=== PATIENT | male | born 1940 | race Caucasian/White ===

== ENCOUNTER → 2018-02-23 15:55 | Outpatient (CLI) | payer MEDICARE, SELFPAY ==
[2018-02-23 16:39] LABS: Alanine Aminotransfer ALT/SGPT 76 U/L (16-61); Anion Gap 7 (5-15); BUN 24 mg/dL (7-18); BUN/Creat Ratio 17.5 RATIO (10-20); CPK Total, Creatine Kinase 188 U/L (39-308); Calcium,Total 8.9 mg/dL (8.5-10.1); Chloride 101 mmol/L (98-107); Cholesterol 118 mg/dL (200); Creatinine, Serum 1.37 mg/dL (0.70-1.30); EST Glomerular Filtration Rate 54 mL/min (>60); Est Glom Filt Rate - Afr Amer 65 mL/min (>60); Glucose 101 mg/dL (74-106); High Density Lipoprotein 50 mg/dL; Potassium 4.5 mmol/L (3.5-5.1); Sodium Level 136 mmol/L (136-145); Triglycerides 51 mg/dL; Very Low Density Lipoprotein 10 mg/dL (5-40)
== END ==
PROVIDERS: Visit Provider Internal Medicine Cardiovascular Disease
DX: I25.10 Atherosclerotic heart disease of native coronary artery without angina pectoris (principal)
CPT/HCPCS: 80048; 80061; 82550; 84460

== ENCOUNTER → 2018-03-11 09:35 | Outpatient (CLI) | payer MEDICARE, SELFPAY ==
[2018-03-11 11:01] LABS: Alanine Aminotransfer ALT/SGPT 10 U/L (16-61); Anion Gap 7 (5-15); BUN 16 mg/dL (7-18); BUN/Creat Ratio 13.9 RATIO (10-20); Calcium,Total 8.7 mg/dL (8.5-10.1); Chloride 100 mmol/L (98-107); Creatinine, Serum 1.15 mg/dL (0.70-1.30); EST Glomerular Filtration Rate 66 mL/min (>60); Est Glom Filt Rate - Afr Amer 80 mL/min (>60); Glucose 144 mg/dL (74-106); Potassium 4.6 mmol/L (3.5-5.1); Sodium Level 132 mmol/L (136-145)
== END ==
PROVIDERS: Family Provider Internal Medicine; PCP Internal Medicine; Visit Provider Internal Medicine Cardiovascular Disease
DX: I25.10 Atherosclerotic heart disease of native coronary artery without angina pectoris (principal)
CPT/HCPCS: 36415; 80048; 84460

== ENCOUNTER 2018-06-15 14:02 | Observation (INO) | payer MEDICARE, SELFPAY ==
[2018-06-15] VITALS (9 sets, daily range): BP systolic 116–144; BP diastolic 54–75; PULSE 61–79; RESP 16–18; TEMP 36.5–37; O2SAT 92–98; BMI 26.4; BMI 27.3; BMI 27.4
--- NOTE | 2018-06-15 14:27 | EKG12_ITS ---
Test Reason : Blood Pressure : / mmHG Vent. Rate : 072 BPM Atrial Rate : 072 BPM P-R Int : 206 ms QRS Dur : 092 ms QT Int : 368 ms P-R-T Axes : 025 051 065 degrees QTc Int : 402 ms Sinus rhythm with occasional Premature ventricular complexes Confirmed by KERRY SHAW, ANITA ([id number]), video effects editor SHANIQUA BLOOM ([id number] on 06/17/2018 1:34:02 PM Referred By: Fátima Madrigal Confirmed By:ANITA PAYNE MD
[2018-06-15 14:41] LABS: Absolute Neutrophil Count 3.5 X10^3/uL (2.0-7.7); Basophil# 0.01 X10^3/uL; Basophil% 0.2 % (0-1); Eosinophil# 0.19 X10^3/uL; Eosinophils% 3.6 % (0-5); Hematocrit 41.5 % (40-54); Hemoglobin 14.4 g/dl (13.0-16.5); Lymphocyte % 18.8 % (19-41); Mean Corp Hgb Conc 34.7 g/gl (32-36); Mean Corpuscular Hgb 33.4 pg (27.0-32.0); Mean Corpuscular Volume 96.3 fL (80-94); Mean Platelet Vol. 10.7 fl (6.2-12.0); Monocyte# 0.58 X10^3/uL; Monocyte% 10.9 % (0-10); Neutrophil # 3.54 X10^3/uL (2.7-7.7); Neutrophil % 66.5 % (47-70); POSITIVE COUNT NO; POSITIVE DIFFERENTIAL NO; POSITIVE MORPHOLOGY NO; Platelet Count 176 K/mm3 (150-450); RBC Distribution Width CV 12.1 % (11.6-14.6); RBC Distribution Width SD 42.7 fl (35.1-43.9); Red Blood Count 4.31 M/mm3 (4.6-6.2); White Blood Count 5.3 K/mm3 (4.4-11.0)
[2018-06-15] MEDS: Aspirin 81 MG TAB.CHEW 324 MG PO (14:42)
--- NOTE | 2018-06-15 14:52 | RAD_ITS ---
STUDY: X-RAY CHEST REASON FOR EXAM: Male, 78 years old. Acute substernal chest pain, previous CABG TECHNIQUE: Single AP portable view of the chest. COMPARISON: 08/20/2017 FINDINGS: EKG leads overlie the chest The lungs are clear and expanded. There is no demonstrated pleural abnormality. Sternal cerclage wires and vascular clips are present from a prior sternotomy and coronary artery bypass graft procedure (CABG). Normal mediastinum and bailey. Normal visualized pulmonary arteries. Normal visualized aortic arch and descending thoracic aorta. Normal visualized thoracic spine. Normal visualized ribs, clavicles, and shoulders. There is no demonstrated abnormality of the visualized soft tissue structures of the upper abdomen. RAD/Chest 1 View (Portable) IMPRESSION: No acute pulmonary process Electronically Signed: Faraz Barrera MD at 15:12 EDT , Service support ,
[2018-06-15 15:23] LABS: Anion Gap 7 (5-15); BUN 36 mg/dL (7-18); BUN/Creat Ratio 25.4 RATIO (10-20); Calcium,Total 8.7 mg/dL (8.5-10.1); Chloride 104 mmol/L (98-107); Creatinine, Serum 1.42 mg/dL (0.70-1.30); EST Glomerular Filtration Rate 52 mL/min (>60); Est Glom Filt Rate - Afr Amer 62 mL/min (>60); Estimated Creatinine Clearance 48.58 ml/min; Glucose 215 mg/dL (74-106); Potassium 4.5 mmol/L (3.5-5.1); Sodium Level 139 mmol/L (136-145)
--- NOTE | 2018-06-15 16:21 | ED.VISSUMM ---
- ER Visit Summary Date of Service: 06/15/18 Chief Complaint: [Chest pain] History of Present Illness: The patient is a 78 M [who presents the emergency department with chest pain. He gets angina quite often. 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 Yesterday and today the pain has been much worse and more frequent. He has associated shortness of breath. It is worse when he takes a deep breath when he walks. No fevers or chills no lower extremity swelling no PE or DVT risk factors. He does have coronary artery disease and has had a bypass he had a cath several years ago which showed some moderate vessel disease but nothing that was stented will at the time.] Physical Examination: [] WN WD NAD PERRL EOMI MMM NECK supple and nontender, no masses RRR no murmur rub or gallop, no peripheral edema, symmetric radial pulses CTAB no respiratory distress ABDOMEN is soft and nontender, normal bowel sounds, no distension, no rebound or guarding SKIN is warm and dry no rashes Alert and Oriented x3, CN II-XII in tact, no motor or sensory deficits, gait normal No lymphadenopathy Test Results: [] Emergency Department Course and Treatment: [EKG is sinus at a rate of 72 with occasional PVCs. Other labs are unremarkable. Chest x-ray is normal. Because the patient's history of coronary artery disease he has a heart score of at least 4. He will be admitted to the hospital.] Treatment Plan: [] Disposition: [Admit] Impression: chest [Pain] This note was generated with [employer] dictation software. It may contain incorrect words, spelling, and punctuation that were not noted in review of the chart prior to signing ED Disposition - Plan for ED Patient: Chief Complaint: Chest Pain Referrals: Anupama Feng DO [Primary Care Provider] -
--- NOTE | 2018-06-15 17:27 | EKG12_ITS ---
Test Reason : CP ADMISSION Blood Pressure : / mmHG Vent. Rate : 065 BPM Atrial Rate : 065 BPM P-R Int : 220 ms QRS Dur : 092 ms QT Int : 396 ms P-R-T Axes : 018 051 064 degrees QTc Int : 411 ms Sinus rhythm with 1st degree A-V block with occasional Premature ventricular complexes Otherwise normal ECG Confirmed by KERRY SHAW, ANITA ([id number]), editor & co founder SHANIQUA BLOOM ([id number] on 06/17/2018 1:47:39 PM Referred By: Fátima Madrigal Confirmed By:ANITA PAYNE MD
--- NOTE | 2018-06-15 17:29 | PCM.HP.STD ---
History of Present Illness Date of Admission: 06/15/18 Chief Complaint: Chest pain The patient is a 78 year old M past medical history of Parkinson's disease, CIDP, CAD, follows closely with Dr. Indra Montiel. He has had a stress test in 2017 that was reportedly normal. He follows closely with Dr. Montiel and has been having angina symptoms worse with exertion. Dr. Montiel had been increasing his isosorbide and he is currently on 90 mg p.o. daily. Started having chest pain that persisted throughout the whole day yesterday, substernal, crushing, worse with exertion, relieved with rest ,not associated with nausea or vomiting no diaphoresis. He denied any leg swelling orthopnea or PND. This chest pain persisted until so this morning then he called his physician who recommended he comes to the ED. Vitals in the ED was stable blood pressure of 144/67, respiratory rate was 18, SPO2 is 97% on room air, temperature 98.6 F. His admitting blood work showed unremarkable CBC D, BMP showed slight elevation in creatinine, urine was 36, creatinine 1.42, baseline creatinine is between 1.1-1.2. Initial troponin is negative. EKG shows no acute ST-T changes. Chest x-ray shows no acute pulmonary process. 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) Diabetic neuropathy (Chronic) HTN (hypertension) (Chronic) HLD (hyperlipidemia) (Chronic) Type II diabetes mellitus, uncontrolled (Chronic) History of chest pain (Chronic) Hx of CABG (Chronic) Allergies Beta-Blockers (Beta-Adrenergic Bloc Allergy (Verified 08/20/17 17:43) Swelling Home Medications: Ambulatory Orders Medication Instructions Recorded Gabapentin [Neurontin] 800 mg PO TID 11/15/15 Lactobacillus Combination No.4 1 each PO DAILY 11/15/15 [Probiotic] Lisinopril [Zestril] 5 mg PO DAILY 11/15/15 Metformin HCl [Glucophage] 1,000 mg PO BIDCM 11/15/15 Multivitamin [Daily Multiple 1 each PO DAILY 11/15/15 Vitamin] Aspirin E.C. [Ecotrin] 81 mg PO DAILY@0800 02/28/16 Folic Acid 0.4 mg PO BIDCM 02/28/16 Tamsulosin HCl [Flomax] 0.4 mg PO DAILY 02/28/16 Atorvastatin Calcium [Lipitor] 40 mg PO QHS 08/03/17 Finasteride [Proscar] 5 mg PO DAILY 08/20/17 Carbidopa/Levodopa [Sinemet 2 tablet PO TIDAC 06/15/18 25] Cholecalciferol (Vitamin D3) 5,000 unit PO MOWEFR 06/15/18 [Vitamin D3] Glimepiride [Amaryl] 2 mg PO DAILY 06/15/18 Isosorbide Mononitrate [Imdur] 90 mg PO DAILY 06/15/18 Levothyroxine Sodium [Synthroid] 112.5 mcg PO DAILY 06/15/18 Surgical History: coronary bypass surgery Psychiatric History: No pertinent psych hx Lives: Spouse/ Significant Other Smoking Status: Former smoker Tobacco Use: Non-smoker Alcohol: None Drugs: None - *Family History Maternal History Items: - - Mother with Alzheimer's disease, heart disease, diabetes Paternal History Items: Diabetes, Heart Disease, Hypertension Review of Systems Constitutional: Reports: Weakness. Denies: Anorexia, Chills, Fever, Weight Change Eyes: Denies: Blurred vision, Cataracts, Conjunctivae Inflammation, Pain, Redness HEENT: Denies: Difficulty Swallowing, Head Aches, Hearing Changes, Sinus Congestion, Sinus Drainage Cardiovascular: Reports: Chest Pain, Chest Pressure, Chest Tightness, Light Headedness. Denies: Orthopnea, Palpitations, Paroxysmal Noc. Dyspnea, Syncope Respiratory: Reports: Shortness of breath upon exertion. Denies: Cough, Hemoptysis, Shortness of Breath, Shortness of breath at rest, Sputum production Gastrointestinal: Denies: Abdominal Pain, Constipation, Nausea, Vomiting Genitourinary: Denies: Dysuria, Frequency Musculoskeletal: Denies: Joint Pain, Joint Tenderness Skin: Denies: Rash, Wounds Neurological: Denies: Numbness, Tingling, Focal weakness Psychiatric: Denies: Anxiety, Depression, Homicidal Ideations, Suicidal Ideations Hematologic/ Lymphatic: Denies: Easy Bruising, Easy Bleeding VTE Information - Inpt Only VTE Present on Admission: No VTE Pharm Prophylaxis ordered?: Yes - Physical Exam General: Alert, Oriented x3, Cooperative, No apparent distress HEENT: Atraumatic, PERRLA, EOMI, Normocephalic Oral: Moist Mucosa Neck: Supple, No JVD, Negative Carotid Bruits Lungs: Clear to auscultation, Normal air movement Cardiovascular: Regular rate, Regular Rhythm, Normal S1, Normal S2, No murmurs Abdomen: Bowel Sounds Present, Soft, Non Tender, Non-Distended, No Hepato-splenomegaly Extremities: No edema Skin: No rashes, No breakdown Musculoskeletal: No Tenderness to Palpation of Joints or Extremities Lymphatic: No Cervical, Supraclavicular, or Inguinal Adenopathy Neurological: Cranial nerves II-XII grossly intact, - - coarse tremors of the right upper extremities Psych/Mental Status: Normal Affect, Appropriate Vital Signs Temp Pulse Resp BP Pulse Ox 98.6 F 72 16 117/75 98 06/15/18 14:04 06/15/18 16:30 06/15/18 16:30 06/15/18 16:30 06/15/18 16:30 Weight: 89.1 kg Body Mass Index (BMI) 27.3 Assessment/Plan All Active Problems Chest pain (Acute) 78 year old M past medical history of Parkinson's disease, CIDP, CAD, follows closely with Dr. Indra Montiel. He has had a stress test in 2017 that was reportedly normal. He follows closely with Dr. Montiel and has been having angina symptoms worse with exertion. 1. Chest pain, atypical, concerning for worsening angina, history of CAD, been on an increasing dose of Imdur by cardiology. Plan: Admit to PCU, telemetry, trend troponins, continue on aspirin, statin, beta-marina, Imdur, as needed nitro, stress test in a.m., obtain records from Dr. Montiel's office 2. Hypertension, controlled, continue home medications 3. Type II DM, on metformin, amaryl, will continue same, add Accu-Cheks with insulin sliding scale 4. Hyperlipidemia, on statins 5. Parkinson's disease/CIDP, continue home regimen 6. BPH on Proscar, Flomax 7. Hypothyroidism, on levothyroxine 8. DVT prophylaxis with heparin subcu Code Visit OBSV E&M: 60747 Initial observation care L3
--- NOTE | 2018-06-15 17:42 | HP.PCM_ITS ---
History of Present Illness Date of Admission: 06/15/18 Chief Complaint: Chest pain The patient is a 78 year old M past medical history of Parkinson's disease, CIDP , CAD, follows closely with Dr. Indra Montiel. He has had a stress test in 2017 that was reportedly normal. He follows closely with Dr. Montiel and has been having angina symptoms worse with exertion. Dr. Montiel had been increasing his isosorbide and he is currently on 90 mg p.o. daily. Started having chest pain that persisted throughout the whole day yesterday, substernal, crushing, worse with exertion, relieved with rest ,not associated with nausea or vomiting no diaphoresis. He denied any leg swelling orthopnea or PND. This chest pain persisted until so this morning then he called his physician who recommended he comes to the ED. Vitals in the ED was stable blood pressure of 144/67, respiratory rate was 18, SPO2 is 97% on room air, temperature 98.6 F. His admitting blood work showed unremarkable CBC D, BMP showed slight elevation in creatinine, urine was 36, creatinine 1.42, baseline creatinine is between 1.1 -1.2. Initial troponin is negative. EKG shows no acute ST-T changes. Chest x- ray shows no acute pulmonary process. 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) Diabetic neuropathy (Chronic) HTN (hypertension) (Chronic) HLD (hyperlipidemia) (Chronic) Type II diabetes mellitus, uncontrolled (Chronic) History of chest pain (Chronic) Hx of CABG (Chronic) Allergies Beta-Blockers (Beta-Adrenergic Bloc Allergy (Verified 08/20/17 17:43) Swelling Home Medications: Ambulatory Orders Medication Instructions Recorded Gabapentin [Neurontin] 800 mg PO TID 11/15/15 Lactobacillus Combination No.4 1 each PO DAILY 11/15/15 [Probiotic] Lisinopril [Zestril] 5 mg PO DAILY 11/15/15 Metformin HCl [Glucophage] 1,000 mg PO BIDCM 11/15/15 Multivitamin [Daily Multiple 1 each PO DAILY 11/15/15 Vitamin] Aspirin E.C. [Ecotrin] 81 mg PO DAILY@0800 02/28/16 Folic Acid 0.4 mg PO BIDCM 02/28/16 Tamsulosin HCl [Flomax] 0.4 mg PO DAILY 02/28/16 Atorvastatin Calcium [Lipitor] 40 mg PO QHS 08/03/17 Finasteride [Proscar] 5 mg PO DAILY 08/20/17 Carbidopa/Levodopa [Sinemet 2 tablet PO TIDAC 06/15/18 25] Cholecalciferol (Vitamin D3) 5,000 unit PO MOWEFR 06/15/18 [Vitamin D3] Glimepiride [Amaryl] 2 mg PO DAILY 06/15/18 Isosorbide Mononitrate [Imdur] 90 mg PO DAILY 06/15/18 Levothyroxine Sodium [Synthroid] 112.5 mcg PO DAILY 06/15/18 Surgical History: coronary bypass surgery Psychiatric History: No pertinent psych hx Lives: Spouse/ Significant Other Smoking Status: Former smoker Tobacco Use: Non-smoker Alcohol: None Drugs: None - *Family History Maternal History Items: - - Mother with Alzheimer's disease, heart disease, diabetes Paternal History Items: Diabetes, Heart Disease, Hypertension Review of Systems Constitutional: Reports: Weakness. Denies: Anorexia, Chills, Fever, Weight Change Eyes: Denies: Blurred vision, Cataracts, Conjunctivae Inflammation, Pain, Redness HEENT: Denies: Difficulty Swallowing, Head Aches, Hearing Changes, Sinus Congestion, Sinus Drainage Cardiovascular: Reports: Chest Pain, Chest Pressure, Chest Tightness, Light Headedness. Denies: Orthopnea, Palpitations, Paroxysmal Noc. Dyspnea, Syncope Respiratory: Reports: Shortness of breath upon exertion. Denies: Cough, Hemoptysis, Shortness of Breath, Shortness of breath at rest, Sputum production Gastrointestinal: Denies: Abdominal Pain, Constipation, Nausea, Vomiting Genitourinary: Denies: Dysuria, Frequency Musculoskeletal: Denies: Joint Pain, Joint Tenderness Skin: Denies: Rash, Wounds Neurological: Denies: Numbness, Tingling, Focal weakness Psychiatric: Denies: Anxiety, Depression, Homicidal Ideations, Suicidal Ideations Hematologic/ Lymphatic: Denies: Easy Bruising, Easy Bleeding VTE Information - Inpt Only VTE Present on Admission: No VTE Pharm Prophylaxis ordered?: Yes - Physical Exam General: Alert, Oriented x3, Cooperative, No apparent distress HEENT: Atraumatic, PERRLA, EOMI, Normocephalic Oral: Moist Mucosa Neck: Supple, No JVD, Negative Carotid Bruits Lungs: Clear to auscultation, Normal air movement Cardiovascular: Regular rate, Regular Rhythm, Normal S1, Normal S2, No murmurs Abdomen: Bowel Sounds Present, Soft, Non Tender, Non-Distended, No Hepato- splenomegaly Extremities: No edema Skin: No rashes, No breakdown Musculoskeletal: No Tenderness to Palpation of Joints or Extremities Lymphatic: No Cervical, Supraclavicular, or Inguinal Adenopathy Neurological: Cranial nerves II-XII grossly intact, - - coarse tremors of the right upper extremities Psych/Mental Status: Normal Affect, Appropriate Vital Signs Temp Pulse Resp BP Pulse Ox 98.6 F 72 16 117/75 98 06/15/18 14:04 06/15/18 16:30 06/15/18 16:30 06/15/18 16:30 06/15/18 16:30 Weight: 89.1 kg Body Mass Index (BMI) 27.3 Assessment/Plan All Active Problems Chest pain (Acute) 78 year old M past medical history of Parkinson's disease, CIDP, CAD, follows closely with Dr. Indra Montiel. He has had a stress test in 2017 that was reportedly normal. He follows closely with Dr. Montiel and has been having angina symptoms worse with exertion. 1. Chest pain, atypical, concerning for worsening angina, history of CAD, been on an increasing dose of Imdur by cardiology. Plan: Admit to PCU, telemetry, trend troponins, continue on aspirin, statin, beta-marina, Imdur, as needed nitro, stress test in a.m., obtain records from Dr. Montiel's office 2. Hypertension, controlled, continue home medications 3. Type II DM, on metformin, amaryl, will continue same, add Accu-Cheks with insulin sliding scale 4. Hyperlipidemia, on statins 5. Parkinson's disease/CIDP, continue home regimen 6. BPH on Proscar, Flomax 7. Hypothyroidism, on levothyroxine 8. DVT prophylaxis with heparin subcu Code Visit OBSV E&M: 88601 Initial observation care L3
[2018-06-15] MEDS: Folic Acid 1 MG Tablet 0.5 MG PO (18:26)
[2018-06-15] MEDS: metFORMIN HCl 1,000 MG Tablet 1000 MG PO (18:26)
[2018-06-15] MEDS: Gabapentin 800 MG Tablet PO (22:30)
[2018-06-15] MEDS: Atorvastatin Calcium 40 MG Tablet PO (22:31)
[2018-06-15] MEDS: Tamsulosin HCl 0.4 MG Capsule PO (22:31)
[2018-06-15 22:41] LABS: Bedside Glucose 105 mg/dL (70-110)
[2018-06-16 03:02] VITALS: PULSE 62
[2018-06-16 04:15] LABS: Hematocrit 43.2 % (40-54); Hemoglobin 15.1 g/dl (13.0-16.5); Mean Corpuscular Hgb 34.2 pg (27.0-32.0); Mean Platelet Vol. 10.6 fl (6.2-12.0); Platelet Count 149 K/mm3 (150-450); RBC Distribution Width CV 11.9 % (11.6-14.6); RBC Distribution Width SD 41.9 fl (35.1-43.9); Red Blood Count 4.41 M/mm3 (4.6-6.2); White Blood Count 5.6 K/mm3 (4.4-11.0)
[2018-06-16 04:20] VITALS: BP 126/65; PULSE 67; RESP 18; TEMP 36.8; O2SAT 95
[2018-06-16 04:21] LABS: Scan Indicated on CBC? Y/N NO
[2018-06-16 04:29] LABS: International Normalized Ratio 1.1; Prothrombin Time (Protime)PT. 13.9 SECONDS (11.7-14.9)
[2018-06-16 04:30] LABS: Anion Gap 9 (5-15); BUN 29 mg/dL (7-18); BUN/Creat Ratio 24.2 RATIO (10-20); Calcium,Total 8.6 mg/dL (8.5-10.1); Chloride 110 mmol/L (98-107); Cholesterol 119 mg/dL (200); EST Glomerular Filtration Rate 63 mL/min (>60); Est Glom Filt Rate - Afr Amer 76 mL/min (>60); Estimated Creatinine Clearance 55.78 ml/min; Glucose 92 mg/dL (74-106); High Density Lipoprotein 46 mg/dL; Partial Thromboplast Time 22.4 Seconds (24.1-36.2); Potassium 4.8 mmol/L (3.5-5.1); Sodium Level 142 mmol/L (136-145); Triglycerides 76 mg/dL; Very Low Density Lipoprotein 15 mg/dL (5-40)
--- NOTE | 2018-06-16 05:00 | EKG12_ITS ---
Test Reason : AM EKG Blood Pressure : / mmHG Vent. Rate : 066 BPM Atrial Rate : 066 BPM P-R Int : 210 ms QRS Dur : 092 ms QT Int : 404 ms P-R-T Axes : 003 059 042 degrees QTc Int : 423 ms Sinus rhythm with 1st degree A-V block with occasional Premature ventricular complexes Otherwise normal ECG Confirmed by KERRY SHAW, ANITA ([id number]), development editor SHANIQUA BLOOM ([id number]) on 06/17/2018 1:45:46 PM Referred By: Fátima Madrigal Confirmed By:ANITA PAYNE MD
[2018-06-16] MEDS: Aspirin E.C. 81 MG Tablet PO (06:02)
[2018-06-16] MEDS: Levothyroxine 75 MCG Tablet 112.5 MCG PO (06:02)
[2018-06-16] MEDS: Lisinopril 5 MG Tablet PO (06:02)
[2018-06-16 06:20] LABS: Bedside Glucose 120 mg/dL (70-110)
[2018-06-16] MEDS: Carbidopa/Levodopa 25/100 Tablet PO (08:56)
[2018-06-16] MEDS: Folic Acid 1 MG Tablet 0.5 MG PO (08:57)
[2018-06-16] MEDS: Isosorbide Mononitrate 30 MG Tablet 90 MG PO (08:58)
[2018-06-16] MEDS: Multivitamins,Therapeutic Tablet 1 TABLET PO (08:58)
[2018-06-16] MEDS: Finasteride 5 MG Tablet PO (09:02)
[2018-06-16] MEDS: Glimepiride 2 MG Tablet PO (09:02)
[2018-06-16] MEDS: metFORMIN HCl 1,000 MG Tablet 1000 MG PO (09:02)
--- NOTE | 2018-06-16 09:20 | STRESSREP ---
Stress Test Report Date: 06/16/2018 Procedure: Pharmacologic stress nuclear imaging study Indications: Chest pain; CAD; CABG Consent: Per the patient Procedure: The patient underwent pharmacologic (Regadenoson) evaluation with a peak heart rate of 90 beats per minute (62 predicted maximal heart rate) and a peak blood pressure of 150/80 mmHg. The baseline ECG demonstrated normal sinus rhythm. The peak pharmacologic ECG demonstrated no obvious ECG changes. There were occasional PVCs pretest and during recovery. There was notation of chronic chest discomfort prior to, during the examination, and following the examination without significant change. The examination was discontinued secondary to completion of protocol. Impression: 1. Pharmacologic (Regadenoson) evaluation 2. Peak pharmacologic ECG with no obvious ECG changes. 3. There were occasional PVCs pretest and during recovery 4. Nuclear images pending Myocardial perfusion imaging study: Technique: The patient was injected with 11.7 millicuries of technetium 99m Cardiolite and subsequently rest SPECT Cardiolite nuclear imaging was obtained in the horizontal long, vertical long, and short axis views. The patient underwent pharmacologic (Regadenoson) evaluation with a peak heart rate of 90 beats per minute (62 % percent predicted maximal heart rate) and a peak blood pressure of 150/80 mmHg. The patient was injected with 33.9 millicuries of technetium 99m Cardiolite and subsequently stress SPECT Cardiolite nuclear imaging was obtained in the horizontal long, vertical long, and short axis views. A gated Cardiolite study at peak stress was obtained. Interpretation: Rest and stress SPECT Cardiolite nuclear imaging status post realignment, normalization, and attenuation correction demonstrate relative uniform tracer uptake and myocardial perfusion appearing within normal limits. There is end systolic thickening and brightening. The gated Cardiolite study demonstrates myocardial thickening and inward wall motion. The reported LVEF is 69 %. Impression: 1. Rest and stress SPECT Cardiolite nuclear imaging demonstrate relative uniform tracer uptake and myocardial perfusion appearing within normal limits. 2. The gated Cardiolite study reports an LVEF of 69 %. This note was generated with [employer] software. It may contain incorrect words, spelling, and punctuation that were not noted in checking the note before signing.
[2018-06-16 09:21] VITALS: PULSE 72
--- NOTE | 2018-06-16 09:25 | STRESSREP_ITS ---
Stress Test Report Date: 06/16/2018 Procedure: Pharmacologic stress nuclear imaging study Indications: Chest pain; CAD; CABG Consent: Per the patient Procedure: The patient underwent pharmacologic (Regadenoson) evaluation with a peak heart rate of 90 beats per minute (62 predicted maximal heart rate) and a peak blood pressure of 150/80 mmHg. The baseline ECG demonstrated normal sinus rhythm. The peak pharmacologic ECG demonstrated no obvious ECG changes. There were occasional PVCs pretest and during recovery. There was notation of chronic chest discomfort prior to, during the examination , and following the examination without significant change. The examination was discontinued secondary to completion of protocol. Impression: 1. Pharmacologic (Regadenoson) evaluation 2. Peak pharmacologic ECG with no obvious ECG changes. 3. There were occasional PVCs pretest and during recovery 4. Nuclear images pending Myocardial perfusion imaging study: Technique: The patient was injected with 11.7 millicuries of technetium 99m Cardiolite and subsequently rest SPECT Cardiolite nuclear imaging was obtained in the horizontal long, vertical long, and short axis views. The patient underwent pharmacologic (Regadenoson) evaluation with a peak heart rate of 90 beats per minute (62 % percent predicted maximal heart rate) and a peak blood pressure of 150/80 mmHg. The patient was injected with 33.9 millicuries of technetium 99m Cardiolite and subsequently stress SPECT Cardiolite nuclear imaging was obtained in the horizontal long, vertical long, and short axis views. A gated Cardiolite study at peak stress was obtained. Interpretation: Rest and stress SPECT Cardiolite nuclear imaging status post realignment, normalization, and attenuation correction demonstrate relative uniform tracer uptake and myocardial perfusion appearing within normal limits. There is end systolic thickening and brightening. The gated Cardiolite study demonstrates myocardial thickening and inward wall motion. The reported LVEF is 69 %. Impression: 1. Rest and stress SPECT Cardiolite nuclear imaging demonstrate relative uniform tracer uptake and myocardial perfusion appearing within normal limits. 2. The gated Cardiolite study reports an LVEF of 69 %. This note was generated with [employer] software. It may contain incorrect words, spelling, and punctuation that were not noted in checking the note before signing.
[2018-06-16 09:40] VITALS: BP 120/52; BP 138/73; BP 148/65; PULSE 74; PULSE 79; PULSE 86; RESP 18; TEMP 36.8; O2SAT 94
[2018-06-16 09:50] LABS: Bedside Glucose 204 mg/dL (70-110)
--- NOTE | 2018-06-16 09:51 | DCINST_ITS ---
- Discharge Diagnoses Reason(s) for Visit for Discharge Instructions: Chest pain You will use the following diet at home:: Calorie/Carbohydrate Controlled ( specify 1200, 1400, etc), Cardiac Your food should be the consistency of: Regular Your liquids should be the consistency of: Regular/Thin Discharge Activity: Return to Normal Activity Allergies/Adverse Reactions: Allergies Beta-Blockers (Beta-Adrenergic Bloc Allergy (Verified 08/20/17 17:43) Swelling Medications to take at Discharge Gabapentin [Neurontin] 800 mg PO TID 11/15/15 Lactobacillus Combination No.4 [Probiotic] 1 each PO DAILY 11/15/15 Lisinopril [Zestril] 5 mg PO DAILY 11/15/15 Metformin HCl [Glucophage] 1,000 mg PO BIDCM 11/15/15 Multivitamin [Daily Multiple Vitamin] 1 each PO DAILY 11/15/15 Aspirin E.C. [Ecotrin] 81 mg PO DAILY@0800 02/28/16 Folic Acid 0.4 mg PO BIDCM 02/28/16 Tamsulosin HCl [Flomax] 0.4 mg PO DAILY 02/28/16 Atorvastatin Calcium [Lipitor] 40 mg PO QHS 08/03/17 Finasteride [Proscar] 5 mg PO DAILY 08/20/17 Carbidopa/Levodopa 25/100 [Sinemet 25/100] 2 tablet PO TIDAC 06/15/18 Cholecalciferol (Vitamin D3) [Vitamin D3] 5,000 unit PO MOWEFR 06/15/18 Glimepiride [Amaryl] 2 mg PO DAILY 06/15/18 Levothyroxine Sodium [Synthroid] 112.5 mcg PO DAILY 06/15/18 Isosorbide Mononitrate [Imdur] 120 mg PO DAILY #30 tab 06/16/18 The following prescriptions were given: Isosorbide Mononitrate [Imdur] 120 mg PO DAILY #30 tab Primary Care Physician: Anupama Feng DO [Primary Care Provider] - Please follow up with your Primary Care Physician in: within 2 weeks Test Results: Test results from this visit will be discussed in further detail at your follow- up appointment, if applicable. Please Follow Up With: Librado Will MD When: in 2-3 weeks Proposed Discharge Date: 06/16/18
--- NOTE | 2018-06-16 09:52 | DS.PCM_ITS ---
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 Indra Montiel. Recent normal stress test in 2017. Patient had been having angina symptoms and this has been managed in outpatient. He follows with Dr. Montiel for which he has been taking increasing doses of Imdur. Currently on Imdur 90 mg p.o. daily. Patient complains of substernal pressure-like chest pain associated with nausea or vomiting but with lightheadedness. 1. Chest pain, atypical, concerning for worsening angina. Stress test in the hospital was negative. Discussed patient with Dr. Will on phone; patient will be discharged on Imdur 120 mg p.o. daily, she will follow-up with him in 2-3 weeks, continue on aspirin , statin, beta-marina, Imdur. 2. Hypertension, controlled 3. Type II DM, on metformin, amaryl 4. Hyperlipidemia, on statins 5. Parkinson's disease/CIDP, continue home regimen 6. BPH on Proscar, Flomax 7. Hypothyroidism, on levothyroxine Discharge Diet: Low fat/ Low Cholesterol, 2000 mg Sodium Diet Discharge Activity: Return to Normal Activity Home Medications: Medications to take at Discharge Gabapentin [Neurontin] 800 mg PO TID 11/15/15 Lactobacillus Combination No.4 [Probiotic] 1 each PO DAILY 11/15/15 Lisinopril [Zestril] 5 mg PO DAILY 11/15/15 Metformin HCl [Glucophage] 1,000 mg PO BIDCM 11/15/15 Multivitamin [Daily Multiple Vitamin] 1 each PO DAILY 11/15/15 Aspirin E.C. [Ecotrin] 81 mg PO DAILY@0800 02/28/16 Folic Acid 0.4 mg PO BIDCM 02/28/16 Tamsulosin HCl [Flomax] 0.4 mg PO DAILY 02/28/16 Atorvastatin Calcium [Lipitor] 40 mg PO QHS 08/03/17 Finasteride [Proscar] 5 mg PO DAILY 08/20/17 Carbidopa/Levodopa 25/100 [Sinemet 25/100] 2 tablet PO TIDAC 06/15/18 Cholecalciferol (Vitamin D3) [Vitamin D3] 5,000 unit PO MOWEFR 06/15/18 Glimepiride [Amaryl] 2 mg PO DAILY 06/15/18 Levothyroxine Sodium [Synthroid] 112.5 mcg PO DAILY 06/15/18 Isosorbide Mononitrate [Imdur] 120 mg PO DAILY #30 tab 06/16/18 Following Prescrptions Were Given to Patient: Isosorbide Mononitrate [Imdur] 120 mg PO DAILY #30 tab Primary Care Physician: Anupama Feng DO [Primary Care Provider] - Please follow up with your Primary Care Physician in: within 2 weeks Please Follow Up With: Librado Will MD When: in 2-3 weeks Disposition: Home Minutes spent on discharge:: 35 Patient Condition:: Stable Medical Necessity - Tobacco Use Smoking Status: Former smoker Tobacco Use: Non-smoker Meaningful Use Info Meaningful Use Diagnoses (Choose all that apply): None applicable Code Visit OBSV E&M: 42742 Observation care discharge
== END 2018-06-16 09:50 | disposition home or self-care (01) ==
LOC: ED 14:44 → PCU 17:02
PROVIDERS: Admitting Provider Internal Medicine; Emergency Provider Emergency Medicine; Family Provider Internal Medicine; PCP Internal Medicine; Visit Provider Internal Medicine
DX: R07.89 Other chest pain (principal); G61.81 Chronic inflammatory demyelinating polyneuritis; E11.40 Type 2 diabetes mellitus with diabetic neuropathy, unspecified; I10 Essential (primary) hypertension; E78.5 Hyperlipidemia, unspecified; E11.65 Type 2 diabetes mellitus with hyperglycemia; Z95.1 Presence of aortocoronary bypass graft; I25.10 Atherosclerotic heart disease of native coronary artery without angina pectoris; G20 Parkinson's disease; N40.0 Benign prostatic hyperplasia without lower urinary tract symptoms; E03.9 Hypothyroidism, unspecified; Z79.899 Other long term (current) drug therapy; Z79.84 Long term (current) use of oral hypoglycemic drugs; Z79.82 Long term (current) use of aspirin; Z87.891 Personal history of nicotine dependence
CPT/HCPCS: 36415; 71045; 78452; 80048; 80061; 82962; 84484; 85025; 85027; 85610; 85730; 93005; 93017; 97162; 97165; 99218; 99283; A9500; A4216; G0378; J2785

== ENCOUNTER → 2018-07-14 10:49 | Outpatient (CLI) | payer MEDICARE, SELFPAY ==
[2018-07-14 13:13] LABS: Prothrombin Time (Protime)PT. 13.2 SECONDS (11.7-14.9)
[2018-07-14 13:14] LABS: Absolute Lymphocyte Count 0.84 X10^3/ul (0.83-4.51); Absolute Neutrophil Count 2.8 X10^3/uL (2.0-7.7); Basophil# 0.02 X10^3/uL; Basophil% 0.5 % (0-1); Eosinophil# 0.29 X10^3/uL; Eosinophils% 6.6 % (0-5); Hematocrit 42.2 % (40-54); Hemoglobin 14.7 g/dl (13.0-16.5); Lymphocyte # 0.84 X10^3/ul (4.0); Mean Corp Hgb Conc 34.8 g/gl (32-36); Mean Corpuscular Hgb 33.8 pg (27.0-32.0); Mean Platelet Vol. 10.8 fl (6.2-12.0); Monocyte% 11.3 % (0-10); Neutrophil # 2.76 X10^3/uL (2.7-7.7); Neutrophil % 62.4 % (47-70); Platelet Count 172 K/mm3 (150-450); RBC Distribution Width CV 12.3 % (11.6-14.6); RBC Distribution Width SD 42.7 fl (35.1-43.9); Red Blood Count 4.35 M/mm3 (4.6-6.2); White Blood Count 4.4 K/mm3 (4.4-11.0)
[2018-07-14 13:15] LABS: POSITIVE COUNT NO; POSITIVE DIFFERENTIAL NO; POSITIVE MORPHOLOGY NO
[2018-07-14 13:21] LABS: Alanine Aminotransfer ALT/SGPT 21 U/L (16-61); Anion Gap 8 (5-15); BUN 28 mg/dL (7-18); BUN/Creat Ratio 22.2 RATIO (10-20); Calcium,Total 8.9 mg/dL (8.5-10.1); Chloride 106 mmol/L (98-107); Creatinine, Serum 1.26 mg/dL (0.70-1.30); EST Glomerular Filtration Rate 59 mL/min (>60); Est Glom Filt Rate - Afr Amer 72 mL/min (>60); Glucose 196 mg/dL (74-106); Potassium 5.1 mmol/L (3.5-5.1); Sodium Level 142 mmol/L (136-145)
== END ==
LOC: LABSPEC 12:26
PROVIDERS: Family Provider Internal Medicine; PCP Internal Medicine; Visit Provider Internal Medicine Cardiovascular Disease
DX: Z01.810 Encounter for preprocedural cardiovascular examination (principal); I25.10 Atherosclerotic heart disease of native coronary artery without angina pectoris
CPT/HCPCS: 80048; 84460; 85025; 85610

== ENCOUNTER 2018-07-20 09:36 | Observation (INO) | payer MEDICARE, SELFPAY ==
[2018-07-19 08:40] VITALS: BMI 28.1
[2018-07-20] VITALS (24 sets, daily range): BP systolic 100–173; BP diastolic 48–95; PULSE 59–73; RESP 12–23; TEMP 36.7–37.1; O2SAT 94–97; BMI 28.9; BMI 28.1
[2018-07-20] MEDS: 0.9% Normal Saline 1,000 ML 150 ML IV (10:59)
--- NOTE | 2018-07-20 11:37 | CRPHASE1 ---
Patient Data/Charges Former Patient:: Phase II - 11 YEARS AGO, BYPASS Room Service Food Server:: Librado Will PCP:: Felix Montelongo Risk Factors/Lifestyle Smoking Status: Never smoker Hx Hypertension: Yes Hx Diabetes Mellitus Type 2: Yes Hx Metabolic Disorders: Yes Hx Dyslipidemia: Yes Height: 1.8 m Weight:: 91.6 kg BMI: 28.1 ETOH: No Substance Abuse: No Family History: Heart Disease Past Cardiac Illness: Coronary Artery Disease, Coronary Artery Bypass Graft Phase I Education Given On:: [place], Nutrition, Antiplatelet medication, CHF, Smoking cessation, Diabetes - Type I, Diabetes - Type II Issues Affecting Care:: None Knowledge of Condition:: Yes Hospital Course Pain Description: Sharp, Pressure Medical/Surgical History [place]:: No Angina:: Yes CAD:: Yes Valve Disease/Replacement:: No Pulmonary:: No COPD:: No Asthma:: No Diabetes:: Yes Diabetes Type II:: Yes Hypertension:: Yes Dyslipidemia:: Yes Arrhythmias:: No PE:: No DVT:: No Arthritis:: No GERD:: No Cancer:: No Thyroid:: Yes Depression:: No Anxiety:: No CABG: Yes ICD:: No Pacemaker:: No Orthopedic:: No - CIDP, SIGHT NEUROPATHY Discharge/Home/Social Eval Discharge Disposition: Home Marital Status:
--- NOTE | 2018-07-20 11:41 | CRPHASE1_ITS ---
Patient Data/Charges Former Patient:: Phase II - 11 YEARS AGO, BYPASS Party Plan Sales Director:: Librado Will PCP:: Felix Montelongo Risk Factors/Lifestyle Smoking Status: Never smoker Hx Hypertension: Yes Hx Diabetes Mellitus Type 2: Yes Hx Metabolic Disorders: Yes Hx Dyslipidemia: Yes Height: 1.8 m Weight:: 91.6 kg BMI: 28.1 ETOH: No Substance Abuse: No Family History: Heart Disease Past Cardiac Illness: Coronary Artery Disease, Coronary Artery Bypass Graft Phase I Education Given On:: [place], Nutrition, Antiplatelet medication, CHF, Smoking cessation, Diabetes - Type I, Diabetes - Type II Issues Affecting Care:: None Knowledge of Condition:: Yes Hospital Course Pain Description: Sharp, Pressure Medical/Surgical History [place]:: No Angina:: Yes CAD:: Yes Valve Disease/Replacement:: No Pulmonary:: No COPD:: No Asthma:: No Diabetes:: Yes Diabetes Type II:: Yes Hypertension:: Yes Dyslipidemia:: Yes Arrhythmias:: No PE:: No DVT:: No Arthritis:: No GERD:: No Cancer:: No Thyroid:: Yes Depression:: No Anxiety:: No CABG: Yes ICD:: No Pacemaker:: No Orthopedic:: No - CIDP, SIGHT NEUROPATHY Discharge/Home/Social Eval Discharge Disposition: Home Marital Status:
--- NOTE | 2018-07-20 11:42 | CRPH1.INSTRU ---
General Education CAD and cardiac anatomy and function:: Not instructed Explanation of diagnoses and procedures:: Not instructed Sign/Symptoms of [place]:: Needs reinforcement Antiplatelet therapy: Needs reinforcement Proper use of NTG-SL: Patient communicates acknowledgment Emergency procedures and activation of EMS: Needs reinforcement, Not instructed Compliance of all prescribed medications: Not instructed Smoking Patient Nicotine/Smoking Risk Factors Are:: Never smoked Dyslipidemia Dyslipidemia Response Code:: Not instructed Overweight/Obesity Overweight/Obesity:: Not instructed - BMI 28.1 Hypertension Hypertension:: Not instructed Heart Disease Patient Heart Disease Risk Factors Are:: Previous cardiac event - CABG, TIMES 4, 11 YEARS AGO Heart Disease Response Code:: Not instructed Diabetes Diabetes:: Not instructed Metabolic Syndrome Metabolic Syndrome Response Code:: Not instructed Sedentary Sedentary Response Code:: Not instructed Stress Stress Response Code:: Not instructed
--- NOTE | 2018-07-20 11:45 | CRPH1.INST_ITS ---
General Education CAD and cardiac anatomy and function:: Not instructed Explanation of diagnoses and procedures:: Not instructed Sign/Symptoms of [place]:: Needs reinforcement Antiplatelet therapy: Needs reinforcement Proper use of NTG-SL: Patient communicates acknowledgment Emergency procedures and activation of EMS: Needs reinforcement, Not instructed Compliance of all prescribed medications: Not instructed Smoking Patient Nicotine/Smoking Risk Factors Are:: Never smoked Dyslipidemia Dyslipidemia Response Code:: Not instructed Overweight/Obesity Overweight/Obesity:: Not instructed - BMI 28.1 Hypertension Hypertension:: Not instructed Heart Disease Patient Heart Disease Risk Factors Are:: Previous cardiac event - CABG, TIMES 4 , 11 YEARS AGO Heart Disease Response Code:: Not instructed Diabetes Diabetes:: Not instructed Metabolic Syndrome Metabolic Syndrome Response Code:: Not instructed Sedentary Sedentary Response Code:: Not instructed Stress Stress Response Code:: Not instructed
[2018-07-20 12:30] LABS: ACT Activated Clotting Time 175 sec (74-137)
[2018-07-20] MEDS: Carbidopa/Levodopa 25/100 Tablet PO ×2 (13:39→16:13)
[2018-07-20] MEDS: Finasteride 5 MG Tablet PO (13:39)
[2018-07-20] MEDS: Gabapentin 800 MG Tablet PO ×2 (13:39→16:15)
[2018-07-20] MEDS: Lisinopril 10 MG Tablet PO (13:39)
[2018-07-20] MEDS: Clopidogrel Bisulfate 75 MG Tablet PO (13:40)
[2018-07-20] MEDS: Folic Acid 1 MG Tablet PO (16:14)
[2018-07-20 16:20] LABS: Bedside Glucose 259 mg/dL (70-110)
[2018-07-20] MEDS: Atorvastatin Calcium 40 MG Tablet PO (21:17)
[2018-07-21] VITALS (13 sets, daily range): BP systolic 109–155; BP diastolic 45–85; PULSE 52–73; RESP 12–20; TEMP 36.6–37.1; O2SAT 94–98
[2018-07-21 03:51] LABS: Bedside Glucose 113 mg/dL (70-110)
[2018-07-21 05:04] LABS: Hematocrit 43.2 % (40-54); Hemoglobin 15.2 g/dl (13.0-16.5); Mean Corp Hgb Conc 35.2 g/gl (32-36); Mean Corpuscular Hgb 33.9 pg (27.0-32.0); Mean Corpuscular Volume 96.4 fL (80-94); Mean Platelet Vol. 10.3 fl (6.2-12.0); Platelet Count 150 K/mm3 (150-450); RBC Distribution Width CV 12.2 % (11.6-14.6); RBC Distribution Width SD 41.9 fl (35.1-43.9); Red Blood Count 4.48 M/mm3 (4.6-6.2); White Blood Count 6.1 K/mm3 (4.4-11.0)
[2018-07-21 05:05] LABS: Scan Indicated on CBC? Y/N NO
[2018-07-21 05:27] LABS: Anion Gap 9 (5-15); BUN 21 mg/dL (7-18); BUN/Creat Ratio 18.1 RATIO (10-20); Calcium,Total 8.3 mg/dL (8.5-10.1); Chloride 106 mmol/L (98-107); Cholesterol 123 mg/dL (200); Creatinine, Serum 1.16 mg/dL (0.70-1.30); EST Glomerular Filtration Rate 65 mL/min (>60); Est Glom Filt Rate - Afr Amer 79 mL/min (>60); Glucose 134 mg/dL (74-106); High Density Lipoprotein 41 mg/dL; Potassium 4.6 mmol/L (3.5-5.1); Sodium Level 139 mmol/L (136-145); Triglycerides 91 mg/dL; Very Low Density Lipoprotein 18 mg/dL (5-40)
[2018-07-21] MEDS: Carbidopa/Levodopa 25/100 Tablet PO (06:12)
[2018-07-21] MEDS: Levothyroxine 75 MCG Tablet PO (06:12)
[2018-07-21] MEDS: 0.9% NaCl Peripheral Flush Adult/Peds IV (06:15)
[2018-07-21] MEDS: Aspirin E.C. 81 MG Tablet PO (07:34)
[2018-07-21] MEDS: Gabapentin 800 MG Tablet PO (07:34)
[2018-07-21] MEDS: Lisinopril 10 MG Tablet PO (07:35)
[2018-07-21] MEDS: Tamsulosin HCl 0.4 MG Capsule PO (07:35)
[2018-07-21] MEDS: Multivitamins,Therapeutic Tablet 1 TABLET PO (07:35)
[2018-07-21] MEDS: Clopidogrel Bisulfate 75 MG Tablet PO (07:36)
[2018-07-21] MEDS: Folic Acid 1 MG Tablet PO (07:36)
[2018-07-21] MEDS: Isosorbide Mononitrate 30 MG Tablet PO (07:37)
[2018-07-21] MEDS: Glimepiride 2 MG Tablet PO (07:37)
[2018-07-21] MEDS: Finasteride 5 MG Tablet PO (07:37)
[2018-07-21 07:46] LABS: Bedside Glucose 156 mg/dL (70-110)
--- NOTE | 2018-07-21 08:56 | PCM.DC.CCA ---
Discharge Diet: Low fat/ Low Cholesterol May shower in (days): 1 May resume sexual activity in: 1 week - if no groin problems occur. Lifting Restrictions: 10 pounds and also avoid any pushing or pulling for 3 days after your test. Additional Activity Instructions:: You must have someone drive you home. Do not drive until instructed by your doctor. You must have someone stay with you all night after your test. Rest in bed or on the couch until the next morning. Limit the number of times you go up and down stairs the day of your test. Call your doctor if your incision/area has: Continuous Slow Oozing, Sudden Increased Bleeding, Increased Pain/ Swelling, Increased Redness, Swelling at the incision site Call your doctor if you observe: Fever of 101 or Higher, Shortness of breath, Chest pain Remove Dressing in (days):: 1 Additional Dressing/Incision Instructions:: Keep the dressing (bandage) on until the next morning. You may then shower, but do not take a tub bath for 5 days after your test. It is normal to have some tenderness and discomfort at the puncture site. Sometimes bruising also occurs. However, if pain, numbness, or coldness occurs below the puncture site (in your leg, toes, arms or fingers) call your doctor at once. You may have a small, marble sized knot at the puncture site. This is normal. Do not rub it. It will go away in 4-6 weeks. Bleeding can occur from the area where the puncture was done. Blood may spurt or drip from the site. If blood spurts, apply pressure right away to stop bleeding and call 911. Although rare, bleeding into the tissue (hematoma) can also occur. If this happens, a large, firm area goose egg under the skin will appear. If any of these occur, lie down as flat as you can and have someone apply firm pressure to the cath site with a gauze pad or a clean washcloth for 10-15 minutes. Call 911 or go to the Emergency Department. Allergies/Adverse Reactions: Allergies Beta-Blockers (Beta-Adrenergic Bloc Allergy (Verified 08/20/17 17:43) Swelling Medications to take at Discharge Gabapentin [Neurontin] 800 mg PO TID 11/15/15 Lactobacillus Combination No.4 [Probiotic] 1 each PO DAILY 11/15/15 Lisinopril [Zestril] 10 mg PO DAILY 11/15/15 Metformin HCl [Glucophage] 1,000 mg PO BIDCM 11/15/15 Multivitamin [Daily Multiple Vitamin] 1 each PO DAILY 11/15/15 Aspirin E.C. [Ecotrin] 81 mg PO DAILY@0800 02/28/16 Folic Acid 800 mcg PO BIDCM 02/28/16 Tamsulosin HCl [Flomax] 0.4 mg PO DAILY 02/28/16 Atorvastatin Calcium [Lipitor] 40 mg PO QHS 08/03/17 Finasteride [Proscar] 5 mg PO DAILY 08/20/17 Carbidopa/Levodopa 25 [Sinemet ] 2 tablet PO TIDAC 06/15/18 Cholecalciferol (Vitamin D3) [Vitamin D3] 5,000 unit PO MOWEFR 06/15/18 Glimepiride [Amaryl] 2 mg PO DAILY 06/15/18 Levothyroxine Sodium [Synthroid] 75 mcg PO DAILY 06/15/18 Hydrochlorothiazide 1 tablet PO BID PRN PRN 07/19/18 Isosorbide Mononitrate [Imdur] 90 mg PO DAILY 07/19/18 Nitroglycerin 1 tablet SUBLINGUAL PRN PRN 07/19/18 Zofran 1 tablet PO Q4H PRN PRN 07/19/18 Clopidogrel Bisulfate [Plavix] 75 mg PO DAILY 07/20/18 Primary Care Physician: Anupama Feng DO [Primary Care Provider] - Test Results: Test results from this visit will be discussed in further detail at your follow-up appointment, if applicable. Please Follow Up With: Librado Will MD Cardiac Rehabilitation Info Cardiac Rehabilitation Program Information: Cardiac Rehabilitation is important for patients like you who are recovering from a heart problem. Cardiac rehabilitation programs are recognized as integral to the continued care of the patient with coronary heart disease. The cardiac rehabilitation program is designed to optimize a patient's physical, psychological, and social functioning. Health home care nurse work in cardiac rehabilitation programs and assist you with getting the treatments you need to get stronger and healthier - like exercise, healthy eating habits, and medications. Cardiac rehabilitation has been show to help people with heart problems live longer and have better life enjoyment than people who do not go to cardiac rehabilitation. Please contact the Cardiac Rehabilitation Program at [facility] at in two weeks if you have not heard from them.
--- NOTE | 2018-07-21 10:25 | PCM.PN.CARD ---
Subjectve: Patient doing very well overnight, no 24 hour events. Telemetry shows normal sinus rhythm with PVCs. No chest pain symptoms. The patient in fact feels much better after his angioplasty. He continues to have twinges of atypical fleeting chest pain which are dissimilar from his previous anginal complaints. Hemoglobin and creatinine are within nominal limits. Right groin is clean/dry/intact. EKG shows normal sinus rhythm, no acute changes. Objective: Vital Signs Temp Pulse Resp BP Pulse Ox 98.8 F 69 16 109/52 L 95 07/21/18 08:00 07/21/18 10:00 07/21/18 10:00 07/21/18 10:00 07/21/18 10:00 Oxygen Delivery Method Room Air Weight: 199 lb 1.239 oz Body Mass Index (BMI) 28.9 Intake and Output for Last 24 Hours 07/19/18 07/20/18 07/21/18 23:59 23:59 23:59 Intake Total 1480 / 1480 600 / 600 Output Total 900 / 900 975 / 975 Balance 580 / 580 -375 / -375 General: Awake, Alert, Oriented x 3 HEENT: PERRL, EOMI, Sclera Non Icteric Neck: Supple, Good ROM, No Lymph Node Enlargement Lungs: Clear to auscultation Cardiovascular: Regular Rhythm, Normal S1, Normal S2, No Murmurs, No Rubs, No Gallops Vascular: No Carotid Bruits, Normal Femoral Pulses, Normal Radial Pulses, Normal Dorsalis Pedal Pulse, Normal Posterior Tibial Pulses Abdomen: Bowel Sounds Present, Soft, Non Tender, No HSM, No Organomegaly Extremities: No Cyanosis, No Clubbing, No edema Neurological: No Focal Motor or Sensory Deficit 07/21/18 04:50: WBC 6.1, RBC 4.48 L, Hgb 15.2, Hct 43.2, MCV 96.4 H, MCH 33.9 H, MCHC 35.2, RDW 12.2, RDW Differential 41.9, Plt Count 150, MPV 10.3 07/21/18 04:50: Sodium 139, Potassium 4.6, Chloride 106, Carbon Dioxide 24.0, Anion Gap 9, BUN 21 H, Creatinine 1.16, Est GFR (MDRD) Af Amer 79, Est GFR (MDRD) Non-Af 65, BUN/Creatinine Ratio 18.1, Glucose 134 H, Calcium 8.3 L, Triglycerides 91, Cholesterol 123, LDL Cholesterol 64, VLDL Cholesterol 18, HDL Cholesterol 41 Rhythm: EKG: ECHO: Stress Test: Cardiac Cath: PCI: CT Surgery: Holter monitor: EPS: PPM: CXR: Chest CT Scan: Medical Necessity - Tobacco Use Smoking Status: Never smoker Tobacco Use: Non-smoker Assessment/Plan 1. Coronary artery disease: The patient underwent complex angioplasty and drug-eluting stenting to the main midportion of the posterior lateral branch through the saphenous vein graft to the PDA, as well as angioplasty and drug-eluting stenting to the distal saphenous vein graft prior to its insertion site into the PDA. Patient had identical chest pain anginal symptoms during vein graft injection as well as balloon angioplasty as he has been having at home. I hope is that this is the culprit artery and that he is symptoms will resolve. In addition he has a proximal diagonal branch stenosis of about 75-80% and a 2.25 mm vessel, which is not bypassed. Should the patient have recurrent anginal symptoms, I have a low threshold to consider intervening on this vessel. His other bypass grafts are patent, I would not recommend intervention of the calcified mid RCA's stenosis as it gives rise only to an acute marginal branch. Patient will be discharged home today and follow-up with Dr. Montiel his primary gis geographer going forward. He will continue aspirin, Plavix for life given his peripheral vascular disease and previous bypass surgery. Patient may resume his metformin in 3 days time. 2. Hyperlipidemia: Continue Lipitor therapy. 3. Patient may be discharged home. Code Visit Inpatient E&M: 70589 Subs Hosp L2
== END 2018-07-21 10:49 | disposition home or self-care (01) ==
LOC: CLSP 12:18 → ICU 12:19
PROVIDERS: Admitting Provider Internal Medicine Cardiovascular Disease; Family Provider Internal Medicine; PCP Internal Medicine; Visit Provider Internal Medicine Cardiovascular Disease
DX: I25.110 Atherosclerotic heart disease of native coronary artery with unstable angina pectoris (principal); I10 Essential (primary) hypertension; E78.5 Hyperlipidemia, unspecified; Z95.1 Presence of aortocoronary bypass graft; Z79.84 Long term (current) use of oral hypoglycemic drugs; Z79.899 Other long term (current) drug therapy; Z79.82 Long term (current) use of aspirin; Z79.02 Long term (current) use of antithrombotics/antiplatelets; I49.3 Ventricular premature depolarization; E11.51 Type 2 diabetes mellitus with diabetic peripheral angiopathy without gangrene; N40.0 Benign prostatic hyperplasia without lower urinary tract symptoms
CPT/HCPCS: 80048; 80061; 82962; 85027; 85347; 92929; 92937; 93005; 93459; 96360; 96361; 99218; J7030; J7040; Q9967; A4216; C1725; C1769; C1874; C1887; C1894; C9601; C9604; G0378; G0379

== ENCOUNTER 2018-07-28 18:36 | Observation (INO) | payer MEDICARE, SELFPAY ==
[2018-07-20 11:42] VITALS: BMI 28.1
[2018-07-28] VITALS (8 sets, daily range): BP systolic 150–176; BP diastolic 73–99; PULSE 57–73; RESP 16–18; TEMP 36.4–36.8; O2SAT 95–99; BMI 28.5; BMI 27.3; BMI 24.7
--- NOTE | 2018-07-28 18:58 | EKG12_ITS ---
Test Reason : CP Blood Pressure : / mmHG Vent. Rate : 066 BPM Atrial Rate : 066 BPM P-R Int : 212 ms QRS Dur : 098 ms QT Int : 380 ms P-R-T Axes : 030 048 056 degrees QTc Int : 398 ms Sinus rhythm with 1st degree A-V block Otherwise normal ECG Confirmed by JACINTO YOST ([id number]), visual effects editor SHANIQUA BLOOM ([id number] on 08/02/2018 2:42:17 PM Referred By: AMAYA Confirmed By:JACINTO YOST
--- NOTE | 2018-07-28 19:00 | ED.VISSUMM ---
- ER Visit Summary Date of Service: 07/28/18 Chief Complaint: Chest pain History of Present Illness: The patient is a 78 M presenting with 1 week of intermittent chest pain. Patient had a heart catheterization per Dr. Fuentes on July 21, 2018. He states since that time he has had intermittent chest pain. He states this has been progressively worsening over the past several days. His chest pain is associated with shortness of breath, diaphoresis, nausea. Pain is in the left chest and goes to his left arm. He states this is worsened with exertion. Heart cath report from July 21 shows: the patient underwent complex angioplasty and drug-eluting stenting to the main midportion of the posterior lateral branch through the saphenous vein graft to the PDA, as well as angioplasty and drug-eluting stenting to the distal saphenous vein graft prior to its insertion site into the PDA. Patient had identical chest pain anginal symptoms during vein graft injection as well as balloon angioplasty as he has been having at home. In addition he has a proximal diagonal branch stenosis of about 75-80% and a 2.25 mm vessel, which is not bypassed. Should the patient have recurrent anginal symptoms, I have a low threshold to consider intervening on this vessel. Physical Examination: Vitals are stable. Patient is afebrile. Alert no acute distress. HEENT exam is unremarkable. Neck is supple. Lungs are clear and equal bilaterally. Heart is regular rate and rhythm. Abdomen is soft nontender nondistended. Extremities are unremarkable. Skin is warm and dry. No focal neurologic deficit. Remainder of exam is unremarkable. Emergency Department Course and Treatment: Patient was given aspirin, nitro on arrival. EKG is sinus rate is 66 with first-degree AV block. Chest x-ray shows no acute process. CBC, chemistry unremarkable other than glucose 167, BUN 28, creatinine 1.33. Troponin is negative. D-dimer negative. On repeat evaluation patient states the pain worsened with nitro. He was offered morphine. He declined morphine and was given Tylenol. On reevaluation he is resting comfortably. Discussed with Dr. Fuentes and the hospitalist for observation. Disposition: Observation Impression: Chest pain This note was generated with [employer] dictation software. It may contain incorrect words, spelling, and punctuation that were not noted in review of the chart prior to signing ED Disposition - Plan for ED Patient: Chief Complaint: Chest Pain Referrals: Anupama Feng DO [Primary Care Provider] -
[2018-07-28] MEDS: Aspirin 81 MG TAB.CHEW 324 MG PO (19:22)
[2018-07-28 19:24] LABS: Absolute Lymphocyte Count 1.18 X10^3/ul (0.83-4.51); Absolute Neutrophil Count 3.9 X10^3/uL (2.0-7.7); Basophil# 0.02 X10^3/uL; Basophil% 0.3 % (0-1); Eosinophil# 0.18 X10^3/uL; Hematocrit 39.7 % (40-54); Lymphocyte # 1.18 X10^3/ul (4.0); Lymphocyte % 19.7 % (19-41); Mean Corp Hgb Conc 35.3 g/gl (32-36); Mean Corpuscular Hgb 34.1 pg (27.0-32.0); Mean Corpuscular Volume 96.8 fL (80-94); Monocyte# 0.66 X10^3/uL; Neutrophil # 3.93 X10^3/uL (2.7-7.7); Neutrophil % 65.7 % (47-70); Platelet Count 185 K/mm3 (150-450); RBC Distribution Width CV 12.4 % (11.6-14.6); RBC Distribution Width SD 42.8 fl (35.1-43.9)
[2018-07-28 19:30] LABS: POSITIVE COUNT NO; POSITIVE DIFFERENTIAL NO; POSITIVE MORPHOLOGY NO
[2018-07-28 19:33] LABS: D-Dimer Quantitative (DVT/PE) 0.34 FEU/ug/m (0.27-0.49)
[2018-07-28 19:43] LABS: Anion Gap 10 (5-15); BUN 28 mg/dL (7-18); BUN/Creat Ratio 21.1 RATIO (10-20); Calcium,Total 8.7 mg/dL (8.5-10.1); Chloride 106 mmol/L (98-107); Creatinine, Serum 1.33 mg/dL (0.70-1.30); EST Glomerular Filtration Rate 56 mL/min (>60); Est Glom Filt Rate - Afr Amer 67 mL/min (>60); Estimated Creatinine Clearance 51.86 ml/min; Glucose 167 mg/dL (74-106); Potassium 4.5 mmol/L (3.5-5.1); Sodium Level 142 mmol/L (136-145)
[2018-07-28] MEDS: Acetaminophen 500 MG Tablet 1000 MG PO (20:48)
--- NOTE | 2018-07-28 20:59 | PCM.HP.STD ---
Problem List (1) Chest pain Status: Acute (2) HTN (hypertension) Status: Chronic (3) Type II diabetes mellitus, uncontrolled Status: Chronic (4) Hx of CABG Status: Chronic History of Present Illness Date of Admission: 07/28/18 Chief Complaint: Chest pain for 1 week. 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 The patient reports that after he had a coronary stents in July 20 2018 his previous chest pain subsided a liitle bit but about the next day he continued to have a progressively worsening chest pain. He described his chest pain as a constant pressure with some episodic pain. He pain his pain ranges from 4 to a 7. His pain radiates to his left arm. His chest pain worsens with exertion. Associated with his symptoms is nausea, lightheadedness and shortness of breath. He denies diaphoresis. Previous cardiology notes states that patient also had a proximal diagonal branch stenosis of about 75-80% which was not bypassed and should his anginal symptoms reoccur, cardiology had a low threshold to consider intervening on this vessel. ED doctor reports having a conversation with Dr. Fuentes. Per conversation between ED doctor and Dr. Fuentes: Patient should not be started on any treatment dose of anticoagulation. Patient should be kept n.p.o. and cardiology will likely do a cardiac cath in a.m. The patient received nitroglycerin at emergency department which apparently worsened his chest pain. At emergency department EKG showed sinus rhythm with first-degree AV block which was unchanged from an EKG on July 21. 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) Diabetic neuropathy (Chronic) HTN (hypertension) (Chronic) HLD (hyperlipidemia) (Chronic) Type II diabetes mellitus, uncontrolled (Chronic) History of chest pain (Chronic) Hx of CABG (Chronic) Allergies Beta-Blockers (Beta-Adrenergic Bloc Allergy (Verified 07/28/18 19:27) Swelling Home Medications: Ambulatory Orders Medication Instructions Recorded Gabapentin [Neurontin] 400 mg PO Q4H 11/15/15 Lactobacillus Combination No.4 1 each PO DAILY 11/15/15 [Probiotic] Lisinopril [Zestril] 10 mg PO DAILY 11/15/15 Metformin HCl [Glucophage] 1,000 mg PO BIDCM 11/15/15 Multivitamin [Daily Multiple 1 each PO DAILY 11/15/15 Vitamin] Folic Acid 0.8 mg PO DAILY 02/28/16 Tamsulosin HCl [Flomax] 0.4 mg PO DAILY 02/28/16 Finasteride [Proscar] 5 mg PO DAILY 08/20/17 Carbidopa/Levodopa [Sinemet 2 tablet PO TIDAC 06/15/18] Cholecalciferol (Vitamin D3) 5,000 unit PO MOWEFR 06/15/18 [Vitamin D3] Glimepiride [Amaryl] 4 mg PO DAILY 06/15/18 Levothyroxine Sodium [Synthroid] 75 mcg PO DAILY 06/15/18 Clopidogrel Bisulfate [Plavix] 75 mg PO DAILY 07/20/18 Aspirin E.C. [Ecotrin] 81 mg PO DAILY@0800 07/28/18 Atorvastatin Calcium 40 mg PO QHS 07/28/18 Hydrochlorothiazide [Hctz] 25 mg PO DAILY 07/28/18 Isosorbide Mononitrate [Imdur] 90 mg PO DAILY 07/28/18 Nitroglycerin [Nitroglycerin] 0.4 mg PO PRN PRN 07/28/18 Ondansetron HCl [Zofran] 4 mg PO PRN PRN 07/28/18 Surgical History: coronary bypass surgery Psychiatric History: No pertinent psych hx Lives: Spouse/ Significant Other Smoking Status: Former smoker Alcohol: Occasional - *Family History Maternal History Items: - - Mother with Alzheimer's disease, heart disease, diabetes Paternal History Items: Diabetes, Heart Disease, Hypertension Review of Systems Constitutional: Denies: Chills, Fever, Weight Change HEENT: Denies: Head Aches, Sinus Congestion, Sinus Drainage Cardiovascular: Reports: Chest Pain, Light Headedness Respiratory: Reports: Shortness of Breath Gastrointestinal: Denies: Abdominal Pain, Nausea, Vomiting Genitourinary: Denies: Dysuria Musculoskeletal: Reports: Arm Pain - Left arm Skin: Denies: Rash, Wounds Neurological: Denies: Numbness, Tingling, Focal weakness Psychiatric: Denies: Anxiety, Depression, Homicidal Ideations, Suicidal Ideations Hematologic/ Lymphatic: Reports: Adenopathy VTE Information - Inpt Only VTE Present on Admission: No VTE Mechan Device Prophylaxis: None VTE Pharm Prophylaxis ordered?: Yes - Physical Exam General: Alert, Oriented x3, Cooperative HEENT: Atraumatic, PERRLA, EOMI, Normocephalic Neck: Supple, No JVD, Negative Carotid Bruits Lungs: Clear to auscultation, Normal air movement, - - Tender left chest. Cardiovascular: Regular rate, No murmurs Abdomen: Bowel Sounds Present, Soft, Non Tender Extremities: No edema, Capillary Refill Less than 3 Seconds Skin: No rashes, No breakdown Musculoskeletal: No Tenderness to Palpation of Joints or Extremities Neurological: Cranial nerves II-XII grossly intact, - - Patient with tremors; attributes to Parkinson's. Psych/Mental Status: Normal Affect, Appropriate Vital Signs Temp Pulse Resp BP Pulse Ox 98.2 F 67 16 161/81 H 95 07/28/18 18:38 07/28/18 20:49 07/28/18 20:49 07/28/18 20:49 07/28/18 20:49 Oxygen Flow Rate (L/min) 2 Oxygen Delivery Method Room Air Weight: 95.6 kg Body Mass Index (BMI) 28.5 Laboratory Tests Past 24 Hrs 07/28/18 07/28/18 07/28/18 18:45 18:45 18:45 WBC 6.0 RBC 4.10 L Hgb 14.0 Hct 39.7 L MCV 96.8 H MCH 34.1 H MCHC 35.3 RDW 12.4 RDW Differential 42.8 Plt Count 185 MPV 11.0 Immature Gran % (Auto) 0.300 Neut % (Auto) 65.7 Lymph % (Auto) 19.7 [place] % (Auto) 11.0 H Eos % (Auto) 3.0 Baso % (Auto) 0.3 Absolute Neuts (auto) 3.9 Absolute Lymphs (auto) 1.18 Total Counted Not Reportable D-Dimer Quant (PE/DVT) 0.34 Sodium 142 Potassium 4.5 Chloride 106 Carbon Dioxide 26.0 Anion Gap 10 BUN 28 H Creatinine 1.33 H Estim Creat Clear Calc 51.86 Est GFR (MDRD) Af Amer 67 Est GFR (MDRD) Non-Af 56 L BUN/Creatinine Ratio 21.1 H Glucose 167 H Calcium 8.7 Troponin I < 0.015 Assessment/Plan All Active Problems Chest pain (Acute) The patient is a 78 year old M with a significant history of CAD status post 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 Chest pain Admit to a monitored bed on PCU CXR unremarkable EKG independently reveiwed confirms sinus rhythm with first-degree AV block Old records reviewed showed proximal diagonal branch stenosis of about 75-80% which was not bypassed; and plans for cardiology to intervene if anginal symptoms reoccur. ASA 81 mg p.o. daily Imdur continued Morphine as needed for pain Lisinopril continued Aspirin and Plavix continued High intensity statin continued Serial cardiac enzymes PT/INR ordered Patient is allergic to beta-blockers. Cardiology consult. Hypertension Blood pressure not within goal at the time of admission Lisinopril and Imdur continue as above HCTZ continued Clonidine as needed for systolic blood pressure more than 160. Diabetes mellitus Elevated blood glucose on admission Metformin on hold due to possible cath in a.m. Correction scale insulin started Home Amaryl held in the setting of starting insulin. Patient will be n.p.o. after midnight. BPH Finasteride continued Postherpetic neuralgia Gabapentin continued Parkinson's disease Acute tremors noted on admission Sinemet continued DVT prophylaxis ordered. Subcutaneous heparin. Code Visit OBSV E&M: 04855 Initial observation care L3
--- NOTE | 2018-07-28 21:25 | NURSING ---
Called Ethan ED charge nurse, ok for patient to come the floor.
--- NOTE | 2018-07-28 22:53 | EKG12_ITS ---
Test Reason : ADM CP EKG Blood Pressure : / mmHG Vent. Rate : 060 BPM Atrial Rate : 060 BPM P-R Int : 218 ms QRS Dur : 098 ms QT Int : 416 ms P-R-T Axes : 090 046 057 degrees QTc Int : 416 ms Sinus rhythm with 1st degree A-V block with occasional Premature ventricular complexes Otherwise normal ECG When compared with ECG of 28-JUL-2018 18:38, MANUAL COMPARISON REQUIRED, DATA IS UNCONFIRMED Confirmed by GRACIE SHAW, CHARO ([id number]), science editor SHANIQUA BLOOM ([id number]) on 08/03/2018 2:04:27 PM Referred By: ALISON Confirmed By:CHARO BOWMAN MD
[2018-07-28] MEDS: Heparin Injection (Vial) 5,000 UNIT/ML VIAL 5000 UNIT SC (23:04)
[2018-07-28] MEDS: 0.9% NaCl Peripheral Flush Adult/Peds IV (23:04)
[2018-07-28] MEDS: Gabapentin 400 MG Capsule PO (23:05)
[2018-07-28 23:21] LABS: Bedside Glucose 141 mg/dL (70-110)
[2018-07-29] VITALS (28 sets, daily range): BP systolic 111–166; BP diastolic 57–79; PULSE 56–75; RESP 11–21; TEMP 36.3–36.9; O2SAT 95–99
[2018-07-29] MEDS: Gabapentin 400 MG Capsule PO ×4 (02:11→22:03)
[2018-07-29 02:41] LABS: Absolute Lymphocyte Count 1.21 X10^3/ul (0.83-4.51); Absolute Neutrophil Count 2.4 X10^3/uL (2.0-7.7); Basophil# 0.02 X10^3/uL; Basophil% 0.4 % (0-1); Eosinophil# 0.33 X10^3/uL; Eosinophils% 7.4 % (0-5); Hematocrit 37.3 % (40-54); Hemoglobin 13.1 g/dl (13.0-16.5); International Normalized Ratio 1.1; Lymphocyte # 1.21 X10^3/ul (4.0); Lymphocyte % 27.2 % (19-41); Mean Corp Hgb Conc 35.1 g/gl (32-36); Mean Corpuscular Hgb 33.7 pg (27.0-32.0); Mean Corpuscular Volume 95.9 fL (80-94); Mean Platelet Vol. 10.4 fl (6.2-12.0); Monocyte# 0.49 X10^3/uL; Platelet Count 158 K/mm3 (150-450); Prothrombin Time (Protime)PT. 14.1 SECONDS (11.7-14.9); RBC Distribution Width CV 12.1 % (11.6-14.6); RBC Distribution Width SD 41.5 fl (35.1-43.9); Red Blood Count 3.89 M/mm3 (4.6-6.2); White Blood Count 4.5 K/mm3 (4.4-11.0)
[2018-07-29 02:42] LABS: POSITIVE COUNT NO; POSITIVE DIFFERENTIAL NO; POSITIVE MORPHOLOGY NO
[2018-07-29 02:44] LABS: Partial Thromboplast Time 30.9 Seconds (24.1-36.2)
[2018-07-29 03:01] LABS: Anion Gap 8 (5-15); BUN 26 mg/dL (7-18); BUN/Creat Ratio 23.6 RATIO (10-20); Calcium,Total 8.4 mg/dL (8.5-10.1); Chloride 109 mmol/L (98-107); EST Glomerular Filtration Rate 69 mL/min (>60); Est Glom Filt Rate - Afr Amer 84 mL/min (>60); Estimated Creatinine Clearance 62.71 ml/min; Glucose 119 mg/dL (74-106); Potassium 4.4 mmol/L (3.5-5.1); Sodium Level 143 mmol/L (136-145)
--- NOTE | 2018-07-29 05:55 | EKG12_ITS ---
Test Reason : AM EKG Blood Pressure : / mmHG Vent. Rate : 061 BPM Atrial Rate : 061 BPM P-R Int : 226 ms QRS Dur : 092 ms QT Int : 410 ms P-R-T Axes : 009 046 063 degrees QTc Int : 412 ms Sinus rhythm with 1st degree A-V block Otherwise normal ECG When compared with ECG of 28-JUL-2018 22:43, MANUAL COMPARISON REQUIRED, DATA IS UNCONFIRMED Confirmed by GRACIE SHAW, CHARO ([id number]), development editor SHANIQUA BLOOM ([id number]) on 08/03/2018 2:03:58 PM Referred By: ALISON Confirmed By:CHARO BOWMAN MD
[2018-07-29] MEDS: Levothyroxine 75 MCG Tablet PO (06:17)
[2018-07-29] MEDS: Isosorbide Mononitrate 30 MG Tablet 90 MG PO (06:17)
[2018-07-29] MEDS: Clopidogrel Bisulfate 75 MG Tablet PO (06:17)
[2018-07-29] MEDS: Lisinopril 10 MG Tablet PO (06:17)
[2018-07-29] MEDS: Aspirin E.C. 81 MG Tablet PO (06:18)
[2018-07-29] MEDS: Carbidopa/Levodopa 25/100 Tablet PO ×3 (06:18→21:58)
[2018-07-29] MEDS: 0.9% NaCl Peripheral Flush Adult/Peds IV ×3 (06:19→16:34)
[2018-07-29 07:00] LABS: Bedside Glucose 136 mg/dL (70-110)
[2018-07-29 10:26] LABS: Bacteria 0 SEEN /hpf (None Seen); Mucous, Urine 0 SEEN /hpf (<or=2+); Red Blood Cells-Urine 0 SEEN /hpf (0-5); Squamous Epithelial Cells - UA 0 SEEN /hpf (0-5); White Blood Cells 0 SEEN /hpf (0-5)
[2018-07-29 10:40] LABS: Color, Urine Yellow (Yellow); Glucose, Dipstick Normal (Normal); Ketone-Dipstick Negative (Negative); Leukocyte Esterase-Dipstick Negative /ul (Negative); Nitrite-Dipstick Negative (Negative); Occult Blood-Urine Negative /ul (Negative); Protein-Dipstick Negative (Negative); Specific Gravity, Urine 1.005 (1.002-1.030); Urine Bilirubin Dipstick Negative (Negative); Urine Clarity Clear (Clear); Urine Urobilinogen Normal (Normal)
--- NOTE | 2018-07-29 12:47 | NURSING ---
Report called to Edgar in laboratory helper at this time. Requested only current vital signs for patient.
[2018-07-29 12:51] LABS: Bedside Glucose 125 mg/dL (70-110)
[2018-07-29 13:56] LABS: ACT Activated Clotting Time 197 sec (74-137)
--- NOTE | 2018-07-29 14:00 | NURSING ---
In ICU 201 per bed from orthodontic laboratory technician, orthodontic laboratory technician RNs in attendance
--- NOTE | 2018-07-29 14:25 | PCM.PROGNOTE ---
<Parth Pedroza - Last Filed: 07/29/18 14:25> Subjective: pt seen and examined prior to cath. Continued to have chest pain described as sharp pain anterolateral chest radiating into the left arm with associated palpitations. No sob. + dizziness. no LE swelling. - Physical Exam General: Alert, Oriented x3, Cooperative HEENT: Atraumatic, PERRLA, EOMI, Normocephalic Neck: Supple, No JVD, Negative Carotid Bruits Lungs: Clear to auscultation, Normal air movement Cardiovascular: Regular rate, No murmurs Abdomen: Bowel Sounds Present, Soft, Non Tender Extremities: No edema, Capillary Refill Less than 3 Seconds Skin: No rashes, No breakdown Musculoskeletal: No Tenderness to Palpation of Joints or Extremities Neurological: Cranial nerves II-XII grossly intact Psych/Mental Status: Normal Affect, Appropriate, Alert and oriented to time, place, person, mood and affect Vital Signs Temp Pulse Resp BP Pulse Ox 98.5 F 74 16 111/64 95 07/29/18 12:25 07/29/18 12:25 07/29/18 12:25 07/29/18 12:25 07/29/18 12:25 Oxygen Delivery Method Room Air Weight: 201 lb 11.567 oz Body Mass Index (BMI) 27.3 Intake and Output for Last 24 Hours 07/27/18 07/28/18 07/29/18 23:59 23:59 23:59 Intake Total 330 / 330 Balance 330 / 330 Laboratory Tests Past 24 Hrs 07/28/18 07/29/18 07/29/18 23:10 02:05 02:05 WBC RBC Hgb Hct MCV MCH MCHC RDW RDW Differential Plt Count MPV Immature Gran % (Auto) Neut % (Auto) Lymph % (Auto) [place] % (Auto) Eos % (Auto) Baso % (Auto) Absolute Neuts (auto) Absolute Lymphs (auto) Total Counted PT INR APTT Activated Clotting Time Sodium 143 Potassium 4.4 Chloride 109 H Carbon Dioxide 26.0 Anion Gap 8 BUN 26 H Creatinine 1.10 Estim Creat Clear Calc 62.71 Est GFR (MDRD) Af Amer 84 Est GFR (MDRD) Non-Af 69 BUN/Creatinine Ratio 23.6 H Glucose 119 H Calcium 8.4 L Troponin I < 0.015 < 0.015 Urine Color Urine Clarity Urine pH Ur Specific [place] Urine Protein Urine Glucose (UA) Urine Ketones Urine Occult Blood Urine Nitrite Urine Bilirubin Urine Urobilinogen Ur Leukocyte Esterase Urine RBC Urine WBC Ur Squamous Epith Cells Urine Bacteria Urine Mucus 07/29/18 07/29/18 07/29/18 02:05 02:05 02:05 WBC 4.5 RBC 3.89 L Hgb 13.1 Hct 37.3 L MCV 95.9 H MCH 33.7 H MCHC 35.1 RDW 12.1 RDW Differential 41.5 Plt Count 158 MPV 10.4 Immature Gran % (Auto) 0.000 Neut % (Auto) 54.0 Lymph % (Auto) 27.2 [place] % (Auto) 11.0 H Eos % (Auto) 7.4 H Baso % (Auto) 0.4 Absolute Neuts (auto) 2.4 Absolute Lymphs (auto) 1.21 Total Counted Not Reportable PT 14.1 INR 1.1 APTT 30.9 Activated Clotting Time Sodium Potassium Chloride Carbon Dioxide Anion Gap BUN Creatinine Estim Creat Clear Calc Est GFR (MDRD) Af Amer Est GFR (MDRD) Non-Af BUN/Creatinine Ratio Glucose Calcium Troponin I Urine Color Urine Clarity Urine pH Ur Specific [place] Urine Protein Urine Glucose (UA) Urine Ketones Urine Occult Blood Urine Nitrite Urine Bilirubin Urine Urobilinogen Ur Leukocyte Esterase Urine RBC Urine WBC Ur Squamous Epith Cells Urine Bacteria Urine Mucus 07/29/18 07/29/18 10:20 13:40 WBC RBC Hgb Hct MCV MCH MCHC RDW RDW Differential Plt Count MPV Immature Gran % (Auto) Neut % (Auto) Lymph % (Auto) [place] % (Auto) Eos % (Auto) Baso % (Auto) Absolute Neuts (auto) Absolute Lymphs (auto) Total Counted PT INR APTT Activated Clotting Time 197 H Sodium Potassium Chloride Carbon Dioxide Anion Gap BUN Creatinine Estim Creat Clear Calc Est GFR (MDRD) Af Amer Est GFR (MDRD) Non-Af BUN/Creatinine Ratio Glucose Calcium Troponin I Urine Color Yellow Urine Clarity Clear Urine pH 7.0 Ur Specific [place] 1.005 Urine Protein Negative Urine Glucose (UA) Normal Urine Ketones Negative Urine Occult Blood Negative Urine Nitrite Negative Urine Bilirubin Negative Urine Urobilinogen Normal Ur Leukocyte Esterase Negative Urine RBC 0 SEEN Urine WBC 0 SEEN Ur Squamous Epith Cells 0 SEEN Urine Bacteria 0 SEEN Urine Mucus 0 SEEN POC Glucose 07/29/18 07/29/18 07/28/18 12:22 06:23 23:02 POC Glucose 125 H 136 H 141 H Medical Necessity - Tobacco Use Smoking Status: Former smoker Assessment/Plan All Active Problems Chest pain (Acute) 1. Unstable angina, hx of CAD and CABG, stents - negative trop. taken to cath per Dr. Fuentes this AM. report pending. continue statin, asa, plavix, imdur, ken, allergic to beta blockers. pt of Dr. Jordan. 2. htn - stable 3. DMt2 - metformin held. ssi. 4. HLD - statin 5. Parkinsons - sinemet. 6. CKD II - stable. DVT ppx: scds DC planning: lovenox held for cath This patient was seen by Parth Pedroza PA-C under the supervision of Doctor Jessica. <Aelsia Lopez - Last Filed: 07/29/18 15:19> - Physical Exam Vital Signs Temp Pulse Resp BP Pulse Ox 97.3 F L 69 14 138/64 H 98 07/29/18 14:45 07/29/18 15:00 07/29/18 15:00 07/29/18 15:00 07/29/18 15:00 Oxygen Delivery Method Room Air Weight: 91.5 kg Body Mass Index (BMI) 27.3 Intake and Output for Last 24 Hours 07/27/18 07/28/18 07/29/18 23:59 23:59 23:59 Intake Total 630 / 630 Output Total 400 / 400 Balance 230 / 230 Laboratory Tests Past 24 Hrs 07/28/18 07/29/18 07/29/18 23:10 02:05 02:05 WBC RBC Hgb Hct MCV MCH MCHC RDW RDW Differential Plt Count MPV Immature Gran % (Auto) Neut % (Auto) Lymph % (Auto) [place] % (Auto) Eos % (Auto) Baso % (Auto) Absolute Neuts (auto) Absolute Lymphs (auto) Total Counted PT INR APTT Activated Clotting Time Sodium 143 Potassium 4.4 Chloride 109 H Carbon Dioxide 26.0 Anion Gap 8 BUN 26 H Creatinine 1.10 Estim Creat Clear Calc 62.71 Est GFR (MDRD) Af Amer 84 Est GFR (MDRD) Non-Af 69 BUN/Creatinine Ratio 23.6 H Glucose 119 H Calcium 8.4 L Troponin I < 0.015 < 0.015 Urine Color Urine Clarity Urine pH Ur Specific [place] Urine Protein Urine Glucose (UA) Urine Ketones Urine Occult Blood Urine Nitrite Urine Bilirubin Urine Urobilinogen Ur Leukocyte Esterase Urine RBC Urine WBC Ur Squamous Epith Cells Urine Bacteria Urine Mucus 07/29/18 07/29/18 07/29/18 02:05 02:05 02:05 WBC 4.5 RBC 3.89 L Hgb 13.1 Hct 37.3 L MCV 95.9 H MCH 33.7 H MCHC 35.1 RDW 12.1 RDW Differential 41.5 Plt Count 158 MPV 10.4 Immature Gran % (Auto) 0.000 Neut % (Auto) 54.0 Lymph % (Auto) 27.2 [place] % (Auto) 11.0 H Eos % (Auto) 7.4 H Baso % (Auto) 0.4 Absolute Neuts (auto) 2.4 Absolute Lymphs (auto) 1.21 Total Counted Not Reportable PT 14.1 INR 1.1 APTT 30.9 Activated Clotting Time Sodium Potassium Chloride Carbon Dioxide Anion Gap BUN Creatinine Estim Creat Clear Calc Est GFR (MDRD) Af Amer Est GFR (MDRD) Non-Af BUN/Creatinine Ratio Glucose Calcium Troponin I Urine Color Urine Clarity Urine pH Ur Specific [place] Urine Protein Urine Glucose (UA) Urine Ketones Urine Occult Blood Urine Nitrite Urine Bilirubin Urine Urobilinogen Ur Leukocyte Esterase Urine RBC Urine WBC Ur Squamous Epith Cells Urine Bacteria Urine Mucus 07/29/18 07/29/18 10:20 13:40 WBC RBC Hgb Hct MCV MCH MCHC RDW RDW Differential Plt Count MPV Immature Gran % (Auto) Neut % (Auto) Lymph % (Auto) [place] % (Auto) Eos % (Auto) Baso % (Auto) Absolute Neuts (auto) Absolute Lymphs (auto) Total Counted PT INR APTT Activated Clotting Time 197 H Sodium Potassium Chloride Carbon Dioxide Anion Gap BUN Creatinine Estim Creat Clear Calc Est GFR (MDRD) Af Amer Est GFR (MDRD) Non-Af BUN/Creatinine Ratio Glucose Calcium Troponin I Urine Color Yellow Urine Clarity Clear Urine pH 7.0 Ur Specific [place] 1.005 Urine Protein Negative Urine Glucose (UA) Normal Urine Ketones Negative Urine Occult Blood Negative Urine Nitrite Negative Urine Bilirubin Negative Urine Urobilinogen Normal Ur Leukocyte Esterase Negative Urine RBC 0 SEEN Urine WBC 0 SEEN Ur Squamous Epith Cells 0 SEEN Urine Bacteria 0 SEEN Urine Mucus 0 SEEN POC Glucose 07/29/18 07/29/18 07/28/18 12:22 06:23 23:02 POC Glucose 125 H 136 H 141 H Assessment/Plan Patient was seen and examined. I agree with the interval history and physical exam and assessment is plan as documented by NANETTE Rahman. Patient had a cardiac cath done by Dr. Fuentes. Being managed post-cath in ICU. No new complains. Vitals are stable. Labs appear stable Will follow-up on post cardiac recommendations Code Visit Inpatient E&M: 75511 Subs Hosp L2
--- NOTE | 2018-07-29 14:37 | EKG12_ITS ---
Test Reason : Blood Pressure : / mmHG Vent. Rate : 063 BPM Atrial Rate : 063 BPM P-R Int : 212 ms QRS Dur : 096 ms QT Int : 410 ms P-R-T Axes : 017 053 066 degrees QTc Int : 419 ms Sinus rhythm with 1st degree A-V block with frequent Premature ventricular complexes Otherwise normal ECG When compared with ECG of 29-JUL-2018 04:39, MANUAL COMPARISON REQUIRED, DATA IS UNCONFIRMED Confirmed by GRACIE SHAW, CHARO ([id number]), development editor SHANIQUA BLOOM ([id number]) on 08/03/2018 2:09:31 PM Referred By: Confirmed By:CHARO BOWMAN MD
--- NOTE | 2018-07-29 15:28 | CRPHASE1 ---
Patient Data/Charges Phase II Referral:: [facility] Start Phase II:: FOLLOWING OFFICE VISIT WITH PAPER GUILLOTINE OPERATOR Risk Factors/Lifestyle Smoking Status: Former smoker Hx Hypertension: Yes Hx Diabetes Mellitus Type 2: Yes Hx Metabolic Disorders: Yes Hx Dyslipidemia: Yes Hx Obesity: Yes Height: 6 ft - BMI 27.4 Stress: Home/Family Risk Factor for Sedentary Lifestyle: Moderate Risk Past Cardiac Illness: Coronary Artery Disease, Previous PCI w/Stent, Coronary Artery Bypass Graft Phase I Education Given On:: [place], Nutrition, Antiplatelet medication, Diabetes - Type II Issues Affecting Care:: None Knowledge of Condition:: Yes Learning Preferences: Verbal, Written - AT BEDSIDE Medical/Surgical History CAD:: Yes Diabetes Type II:: Yes Hypertension:: Yes Dyslipidemia:: Yes Thyroid:: Yes - HYPOTHYROIDISM Other Medical/Surgical Issues:: PARKINSON'S CABG: Yes PTCA:: Yes - June - 2017 Discharge/Home/Social Eval Discharge Disposition: Home Marital Status:
--- NOTE | 2018-07-29 15:32 | CRPHASE1_ITS ---
Patient Data/Charges Phase II Referral:: [facility] Start Phase II:: FOLLOWING OFFICE VISIT WITH MANAGER VAN Risk Factors/Lifestyle Smoking Status: Former smoker Hx Hypertension: Yes Hx Diabetes Mellitus Type 2: Yes Hx Metabolic Disorders: Yes Hx Dyslipidemia: Yes Hx Obesity: Yes Height: 6 ft - BMI 27.4 Stress: Home/Family Risk Factor for Sedentary Lifestyle: Moderate Risk Past Cardiac Illness: Coronary Artery Disease, Previous PCI w/Stent, Coronary Artery Bypass Graft Phase I Education Given On:: [place], Nutrition, Antiplatelet medication, Diabetes - Type II Issues Affecting Care:: None Knowledge of Condition:: Yes Learning Preferences: Verbal, Written - AT BEDSIDE Medical/Surgical History CAD:: Yes Diabetes Type II:: Yes Hypertension:: Yes Dyslipidemia:: Yes Thyroid:: Yes - HYPOTHYROIDISM Other Medical/Surgical Issues:: PARKINSON'S CABG: Yes PTCA:: Yes - June - 2017 Discharge/Home/Social Eval Discharge Disposition: Home Marital Status:
--- NOTE | 2018-07-29 15:32 | CRPH1.INSTRU ---
General Education CAD and cardiac anatomy and function:: Patient communicates acknowledgment, Family communicates acknowledgment Explanation of diagnoses and procedures:: Patient communicates acknowledgment, Family communicates acknowledgment Sign/Symptoms of LA:: Patient communicates acknowledgment, Family communicates acknowledgment Antiplatelet therapy: Patient communicates acknowledgment, Family communicates acknowledgment Proper use of NTG-SL: Patient communicates acknowledgment, Family communicates acknowledgment Emergency procedures and activation of EMS: Patient communicates acknowledgment, Family communicates acknowledgment Compliance of all prescribed medications: Patient communicates acknowledgment, Family communicates acknowledgment - AT BEDSIDE Smoking Recommendations Include:: Previous smoker; encourage continued cessation Nicotine/Smoking Response Code:: Patient communicates acknowledgment, Family communicates acknowledgment Dyslipidemia Recommendations Include:: Lipid profile provided, Reviewed NCEP/ATP guidelines, Therapeutic Lifestyle Change dietary guidelines Dyslipidemia Response Code:: Patient communicates acknowledgment, Family communicates acknowledgment Overweight/Obesity Patient Overweight/Obesity Risk Factors Are:: BMI Normal [24-29 & > 65 years old] Hypertension Recommendations Include:: BP <130/80 if diabetic, DASH dietary guidelines, Decrease/maintain normal body weight, Moderation of ETOH Hypertension:: Patient communicates acknowledgment, Family communicates acknowledgment Heart Disease Patient Heart Disease Risk Factors Are:: Previous cardiac event Heart Disease Response Code:: Patient communicates acknowledgment, Family communicates acknowledgment Diabetes Patient Diabetes Risk Factors Are:: Elevated blood sugars Recommendations Include:: Maintain fasting blood sugars 70-110 md/dL, Maintain HgbA1c of 6% or less, Monitor blood sugar as prescribed, Diabetic dietary guidelines, Decrease/maintain body weight Diabetes:: Patient communicates acknowledgment, Family communicates acknowledgment Metabolic Syndrome Recommendations Include:: Does not meet criteria Sedentary Patient Sedentary Risk Factors Are:: Lack of regular exercise Recommendations Include:: Aerobic exercise 5-7 times/week for 20-30 minutes continuously, Benefits of regular exercise, Discussed home walking program, Monitored Outpatient Cardiac Rehab Sedentary Response Code:: Patient communicates acknowledgment, Family communicates acknowledgment Stress Recommendations Include:: Identification of stressors, and assessment of coping skills, Stress management techniques Stress Response Code:: Patient communicates acknowledgment, Family communicates acknowledgment
--- NOTE | 2018-07-29 15:35 | CRPH1.INST_ITS ---
General Education CAD and cardiac anatomy and function:: Patient communicates acknowledgment, Family communicates acknowledgment Explanation of diagnoses and procedures:: Patient communicates acknowledgment, Family communicates acknowledgment Sign/Symptoms of PA:: Patient communicates acknowledgment, Family communicates acknowledgment Antiplatelet therapy: Patient communicates acknowledgment, Family communicates acknowledgment Proper use of NTG-SL: Patient communicates acknowledgment, Family communicates acknowledgment Emergency procedures and activation of EMS: Patient communicates acknowledgment , Family communicates acknowledgment Compliance of all prescribed medications: Patient communicates acknowledgment, Family communicates acknowledgment - AT BEDSIDE Smoking Recommendations Include:: Previous smoker; encourage continued cessation Nicotine/Smoking Response Code:: Patient communicates acknowledgment, Family communicates acknowledgment Dyslipidemia Recommendations Include:: Lipid profile provided, Reviewed NCEP/ATP guidelines, Therapeutic Lifestyle Change dietary guidelines Dyslipidemia Response Code:: Patient communicates acknowledgment, Family communicates acknowledgment Overweight/Obesity Patient Overweight/Obesity Risk Factors Are:: BMI Normal [24-29 & > 65 years old ] Hypertension Recommendations Include:: BP <130/80 if diabetic, DASH dietary guidelines, Decrease/maintain normal body weight, Moderation of ETOH Hypertension:: Patient communicates acknowledgment, Family communicates acknowledgment Heart Disease Patient Heart Disease Risk Factors Are:: Previous cardiac event Heart Disease Response Code:: Patient communicates acknowledgment, Family communicates acknowledgment Diabetes Patient Diabetes Risk Factors Are:: Elevated blood sugars Recommendations Include:: Maintain fasting blood sugars 70-110 md/dL, Maintain HgbA1c of 6% or less, Monitor blood sugar as prescribed, Diabetic dietary guidelines, Decrease/maintain body weight Diabetes:: Patient communicates acknowledgment, Family communicates acknowledgment Metabolic Syndrome Recommendations Include:: Does not meet criteria Sedentary Patient Sedentary Risk Factors Are:: Lack of regular exercise Recommendations Include:: Aerobic exercise 5-7 times/week for 20-30 minutes continuously, Benefits of regular exercise, Discussed home walking program, Monitored Outpatient Cardiac Rehab Sedentary Response Code:: Patient communicates acknowledgment, Family communicates acknowledgment Stress Recommendations Include:: Identification of stressors, and assessment of coping skills, Stress management techniques Stress Response Code:: Patient communicates acknowledgment, Family communicates acknowledgment
[2018-07-29 16:11] LABS: ACT Activated Clotting Time 142 sec (74-137)
--- NOTE | 2018-07-29 16:21 | PCM.PN.BLA ---
Progress Note Dr. Will's office was contacted regarding patient's admission. He will be contacted by their office to schedule follow-up.
[2018-07-29] MEDS: Morphine 2 MG/ML Syringe IV (16:34)
[2018-07-29 17:45] LABS: Bedside Glucose 85 mg/dL (70-110)
[2018-07-29] MEDS: Glucerna Shake 120 ML LIQUID PO (18:22)
[2018-07-29] MEDS: Folic Acid 1 MG Tablet PO (21:59)
[2018-07-29] MEDS: Multivitamins,Therapeutic Tablet 1 TABLET PO (21:59)
[2018-07-29] MEDS: Tamsulosin HCl 0.4 MG Capsule PO (22:00)
[2018-07-29] MEDS: Finasteride 5 MG Tablet PO (22:01)
[2018-07-29] MEDS: Atorvastatin Calcium 40 MG Tablet PO (22:03)
[2018-07-29 22:15] LABS: Bedside Glucose 193 mg/dL (70-110)
[2018-07-30] VITALS (11 sets, daily range): BP systolic 133–164; BP diastolic 60–90; PULSE 59–73; RESP 15–18; TEMP 36.5–37.2; O2SAT 93–99
[2018-07-30] MEDS: Gabapentin 400 MG Capsule PO ×3 (02:20→09:34)
[2018-07-30 04:53] LABS: Hematocrit 41.4 % (40-54); Hemoglobin 14.8 g/dl (13.0-16.5); Mean Corp Hgb Conc 35.7 g/gl (32-36); Mean Corpuscular Volume 95.2 fL (80-94); Mean Platelet Vol. 10.3 fl (6.2-12.0); Platelet Count 175 K/mm3 (150-450); RBC Distribution Width CV 12.2 % (11.6-14.6); RBC Distribution Width SD 41.5 fl (35.1-43.9); Red Blood Count 4.35 M/mm3 (4.6-6.2); Scan Indicated on CBC? Y/N NO; White Blood Count 4.6 K/mm3 (4.4-11.0)
[2018-07-30 05:10] LABS: Anion Gap 9 (5-15); BUN 23 mg/dL (7-18); BUN/Creat Ratio 19.8 RATIO (10-20); Calcium,Total 8.6 mg/dL (8.5-10.1); Chloride 107 mmol/L (98-107); Creatinine, Serum 1.16 mg/dL (0.70-1.30); EST Glomerular Filtration Rate 65 mL/min (>60); Est Glom Filt Rate - Afr Amer 79 mL/min (>60); Estimated Creatinine Clearance 59.46 ml/min; Glucose 133 mg/dL (74-106); Potassium 4.4 mmol/L (3.5-5.1); Sodium Level 141 mmol/L (136-145)
[2018-07-30] MEDS: 0.9% NaCl Peripheral Flush Adult/Peds IV (05:57)
[2018-07-30] MEDS: Levothyroxine 75 MCG Tablet PO (05:57)
[2018-07-30] MEDS: Aspirin E.C. 81 MG Tablet PO (07:47)
[2018-07-30] MEDS: Carbidopa/Levodopa 25/100 Tablet PO (07:47)
[2018-07-30] MEDS: Multivitamins,Therapeutic Tablet 1 TABLET PO (07:48)
[2018-07-30] MEDS: Folic Acid 1 MG Tablet PO (07:48)
--- NOTE | 2018-07-30 07:48 | PCM.PN.HOSP ---
Subjective: Patient was seen and examined. Complains of slight left-sided discomfort, nothing like what brought him in, 2 out of 10, denies any dizziness or palpitation or diaphoresis. No acute events on telemetry Vitals/I&O's: Vital Signs Temp Pulse Resp BP Pulse Ox 97.7 F L 59 L 16 161/90 H 95 07/30/18 04:00 07/30/18 07:00 07/30/18 07:00 07/30/18 07:00 07/30/18 07:08 Oxygen Delivery Method Room Air Weight: 91.5 kg Body Mass Index (BMI) 27.3 Intake and Output for Last 24 Hours 07/28/18 07/29/18 07/30/18 23:59 23:59 23:59 Intake Total 1102 / 1102 480 / 480 Output Total 800 / 800 1050 / 1050 Balance 302 / 302 -570 / -570 General: Alert, Oriented x3, Cooperative, No apparent distress HEENT: Atraumatic, PERRLA, EOMI, Normocephalic Oral: Moist Mucosa Neck: Supple, No JVD, Negative Carotid Bruits Lungs: Clear to auscultation, Normal air movement Cardiovascular: Regular rate, Regular Rhythm, Normal S1, Normal S2, No murmurs Abdomen: Bowel Sounds Present, Soft, Non Tender, Non-Distended Extremities: No edema Skin: No rashes, No breakdown Musculoskeletal: No Tenderness to Palpation of Joints or Extremities Neurological: Cranial nerves II-XII grossly intact, Neuro grossly intact - Otherwise, - - Tremors of the right upper extremity Psych/Mental Status: Normal Affect, Appropriate Laboratory Results 07/29/18 10:20: Urine Color Yellow, Urine Clarity Clear, Urine pH 7.0, Ur Specific [place] 1.005, Urine Protein Negative, Urine Glucose (UA) Normal, Urine Ketones Negative, Urine Occult Blood Negative, Urine Nitrite Negative, Urine Bilirubin Negative, Urine Urobilinogen Normal, Ur Leukocyte Esterase Negative, Urine RBC 0 SEEN, Urine WBC 0 SEEN, Ur Squamous Epith Cells 0 SEEN, Urine Bacteria 0 SEEN, Urine Mucus 0 SEEN 07/29/18 12:22: POC Glucose 125 H 07/29/18 13:40: Activated Clotting Time 197 H 07/29/18 15:57: Activated Clotting Time 142 H 07/29/18 17:43: POC Glucose 85 07/29/18 21:50: POC Glucose 193 H 07/30/18 04:40: Sodium 141, Potassium 4.4, Chloride 107, Carbon Dioxide 25.0, Anion Gap 9, BUN 23 H, Creatinine 1.16, Estim Creat Clear Calc 59.46, Est GFR (MDRD) Af Amer 79, Est GFR (MDRD) Non-Af 65, BUN/Creatinine Ratio 19.8, Glucose 133 H, Calcium 8.6 07/30/18 04:40: WBC 4.6, RBC 4.35 L, Hgb 14.8, Hct 41.4, MCV 95.2 H, MCH 34.0 H, MCHC 35.7, RDW 12.2, RDW Differential 41.5, Plt Count 175, MPV 10.3 Current Medications Aspirin (Ecotrin) 81 mg PO DAILY@0800 [facility] Last Admin: 07/29/18 06:18 Dose: 81 mg Atorvastatin Calcium (Lipitor) 40 mg PO QHS [facility] Last Admin: 07/29/18 22:03 Dose: 40 mg Atropine Sulfate () 0.5 mg IV UD PRN PRN Reason: HR <50 bpm Bisacodyl (Dulcolax) 5 mg PO DAILY PRN PRN PRN Reason: Constipation Carbidopa/Levodopa (Sinemet) 2 tablet PO TIDAC [facility] Last Admin: 07/29/18 21:58 Dose: 2 tablet Cholecalciferol (Vitamin D) 5,000 unit PO MOWEFR [facility] Last Admin: 07/29/18 22:02 Dose: 5,000 unit Clonidine (Catapres) 0.1 mg PO Q6H PRN PRN PRN Reason: SBP>160 Clopidogrel Bisulfate (Plavix) 75 mg PO DAILY [facility] Last Admin: 07/29/18 06:17 Dose: 75 mg Dextrose (D50w Syringe) 0 gm IV X1 PRN; Protocol PRN Reason: Hypoglycemia Finasteride (Proscar) 5 mg PO DAILY [facility] Last Admin: 07/29/18 22:01 Dose: 5 mg Folic Acid (Folic Acid) 1 mg PO DAILYCM [facility] Last Admin: 07/29/18 21:59 Dose: 1 mg Gabapentin (Neurontin) 400 mg PO Q4 [facility] Last Admin: 07/30/18 05:57 Dose: 400 mg Glucagon () 1 mg IM .X1 PRN PRN Reason: Hypoglycemia Heparin Sodium (Beef Lung) (Heparin 500 Unit/5 Ml (100/Ml)) 500 unit IV UD PRN PRN Reason: HEPARIN FLUSH Hydrochlorothiazide (Hctz) 25 mg PO DAILY [facility] Last Admin: 07/29/18 22:00 Dose: Not Given Sodium Chloride () 250 mls @ 15 mls/hr IV .[id number] PRN PRN Reason: SALINE FLUSH Insulin Human Lispro (Humalog Kwikpen (Bkc)) 0 unit SQ ACHS [facility] PRN Reason: Protocol Last Admin: 07/29/18 22:03 Dose: Not Given Isosorbide Mononitrate (Imdur) 90 mg PO DAILY [facility] Last Admin: 07/29/18 06:17 Dose: 90 mg Labetalol HCl (Trandate) 20 mg IV X1 PRN PRN Reason: SBP > 160 when pulling sheath Lactobacillus Acidophilus (Acidophilus) 1 tablet PO DAILY [facility] Last Admin: 07/29/18 22:00 Dose: 1 tablet Levothyroxine Sodium (Synthroid) 75 mcg PO DAILY@0600 [facility] Last Admin: 07/30/18 05:57 Dose: 75 mcg Lisinopril (Zestril) 10 mg PO DAILY [facility] Last Admin: 07/29/18 06:17 Dose: 10 mg Magnesium Hydroxide (Milk Of Magnesia) 30 ml PO DAILY PRN PRN Reason: Constipation Morphine Sulfate () 1 - 2 mg IV Q4H PRN PRN PRN Reason: PAIN Last Admin: 07/29/18 16:34 Dose: 2 mg [facility]it[facility] ([facility]itamin) [facility] Admin: 07/29/18 21:59 Dose: 1 tablet Nutritional Formula (Lactose Free) (Glucerna Shake) 120 ml PO TIDCM [facility] Last Admin: 07/29/18 18:22 Dose: 120 ml Ondansetron HCl (Zofran) 4 mg IV Q8H PRN PRN PRN Reason: NAUSEA Sodium Chloride () 5 - 30 ml IV UD PRN PRN Reason: SALINE FLUSH Last Admin: 07/30/18 05:57 Dose: 10 ml Sodium Chloride () 500 ml IV BOLUS PRN PRN Reason: VASO-VAGAL PROTOCOL Tamsulosin HCl (Flomax) 0.4 mg PO DAILY [facility] Last Admin: 07/29/18 22:00 Dose: 0.4 mg Medical Necessity - Tobacco Use Smoking Status: Former smoker Assessment/Plan All Active Problems Chest pain (Acute) 1. Unstable angina, h/o CAD s/p CABG, stents, s/p cardiac, cath and PCI to closely known proximal diagonal branch stenosis, on statin, asa, plavix, imdur, ACEI, allergic to beta blockers. Discharged to follow-up with Dr. Montiel in the outpatient 2. Hypertension, controlled, continue home medication 3. Type II DM, blood sugars fairly controlled, on metformin and Amaryl 4. Hyperlipidemia, on statin 5. Recent disease, on Sinemet. 6. CKD stage III, stable creatinine, need BMP at discharge
[2018-07-30 08:00] LABS: Bedside Glucose 143 mg/dL (70-110)
--- NOTE | 2018-07-30 08:20 | PCM.DC ---
You will use the following diet at home:: Calorie/Carbohydrate Controlled (specify 1200, 1400, etc), Cardiac Your food should be the consistency of: Regular Your liquids should be the consistency of: Regular/Thin Discharge Activity: Return to Normal Activity Additional Instructions: Hold off taking your metformin for 1 more day. Resume on 08/01/18. Continue to take all your other medications. Continue with cardiac rehab. Follow-up with DR. Fuentes and your primary as scheduled. Allergies/Adverse Reactions: Allergies Beta-Blockers (Beta-Adrenergic Bloc Allergy (Verified 07/28/18 19:27) Swelling Medications to take at Discharge Gabapentin [Neurontin] 400 mg PO Q4H 11/15/15 Lactobacillus Combination No.4 [Probiotic] 1 each PO DAILY 11/15/15 Lisinopril [Zestril] 10 mg PO DAILY 11/15/15 Metformin HCl [Glucophage] 1,000 mg PO BIDCM 11/15/15 Multivitamin [Daily Multiple Vitamin] 1 each PO DAILY 11/15/15 Folic Acid 0.8 mg PO DAILY 02/28/16 Tamsulosin HCl [Flomax] 0.4 mg PO DAILY 02/28/16 Finasteride [Proscar] 5 mg PO DAILY 08/20/17 Carbidopa/Levodopa 25/100 [Sinemet 25/100] 2 tablet PO TIDAC 06/15/18 Cholecalciferol (Vitamin D3) [Vitamin D3] 5,000 unit PO MOWEFR 06/15/18 Glimepiride [Amaryl] 4 mg PO DAILY 06/15/18 Levothyroxine Sodium [Synthroid] 75 mcg PO DAILY 06/15/18 Clopidogrel Bisulfate [Plavix] 75 mg PO DAILY 07/20/18 Aspirin E.C. [Ecotrin] 81 mg PO DAILY@0800 07/28/18 Atorvastatin Calcium 40 mg PO QHS 07/28/18 Hydrochlorothiazide [Hctz] 25 mg PO DAILY 07/28/18 Isosorbide Mononitrate [Imdur] 90 mg PO DAILY 07/28/18 Nitroglycerin 0.4 mg PO PRN PRN 07/28/18 Ondansetron HCl [Zofran] 4 mg PO PRN PRN 07/28/18 Orders to be completed after discharge: Basic Metabolic Profile (BMP) Time Frame: 3 Days, Location: Laboratory Primary Care Physician: Anupama Feng DO [Primary Care Provider] - Please follow up with your Primary Care Physician in: within 2 weeks Test Results: Test results from this visit will be discussed in further detail at your follow-up appointment, if applicable. Please Follow Up With: Artemio Fuentes MD When: within 2 weeks Proposed Discharge Date: 07/30/18
--- NOTE | 2018-07-30 08:23 | PCM.DC.SUM ---
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 Electronically Signed: Rahul Jacob, at 19:26 EDT Tel , Service support , Cardiology- Dr. Fuentes Operations: None Procedures: Cardiac catheterization Summary of Care Provided: The patient is a 78 year old M with past medical history of CAD status post CABG, status post recent stent, hypertension, type II DM, hyperlipidemia, hypothyroidism, Parkinson's disease who comes in with a one-week history of bilateral chest pain. Patient was previously seen in the hospital on July 20, 2018 and underwent a cardiac cath with stents for which the proximal diagonal branch stenosis of about 7580% was not bypassed. The plan was to bring him back if his anginal symptoms recur. Patient was admitted to the telemetry floor, kept off anticoagulation, had a cardiac cath done on 07/29/2018 with stenting of his proximal diagonal going branch with sepsis. Post cath patient was kept in the ICU, no acute events on telemetry, remained asymptomatic. He was discharged to continue on aspirin, plavix, Imdur, ACEI. He was asked to hold onto his metformin post cardiac cath and resume metformin after 48 hours. Discharge Diet: Low fat/ Low Cholesterol, 2000 mg Sodium Diet, Carb Control Diet Discharge Activity: Return to Normal Activity Home Medications: Medications to take at Discharge Gabapentin [Neurontin] 400 mg PO Q4H 11/15/15 Lactobacillus Combination No.4 [Probiotic] 1 each PO DAILY 11/15/15 Lisinopril [Zestril] 10 mg PO DAILY 11/15/15 Metformin HCl [Glucophage] 1,000 mg PO BIDCM 11/15/15 Multivitamin [Daily Multiple Vitamin] 1 each PO DAILY 11/15/15 Folic Acid 0.8 mg PO DAILY 02/28/16 Tamsulosin HCl [Flomax] 0.4 mg PO DAILY 02/28/16 Finasteride [Proscar] 5 mg PO DAILY 08/20/17 Carbidopa/Levodopa [Sinemet ] 2 tablet PO TIDAC 06/15/18 Cholecalciferol (Vitamin D3) [Vitamin D3] 5,000 unit PO MOWEFR 06/15/18 Glimepiride [Amaryl] 4 mg PO DAILY 06/15/18 Levothyroxine Sodium [Synthroid] 75 mcg PO DAILY 06/15/18 Clopidogrel Bisulfate [Plavix] 75 mg PO DAILY 07/20/18 Aspirin E.C. [Ecotrin] 81 mg PO DAILY@0800 07/28/18 Atorvastatin Calcium 40 mg PO QHS 07/28/18 Hydrochlorothiazide [Hctz] 25 mg PO DAILY 07/28/18 Isosorbide Mononitrate [Imdur] 90 mg PO DAILY 07/28/18 Nitroglycerin 0.4 mg PO PRN PRN 07/28/18 Ondansetron HCl [Zofran] 4 mg PO PRN PRN 07/28/18 Primary Care Physician: Anupama Feng DO [Primary Care Provider] - Please follow up with your Primary Care Physician in: within 2 weeks Please Follow Up With: Artemio Fuentes MD When: within 2 weeks Disposition: Home Minutes spent on discharge:: 35 Patient Condition:: Stable Medical Necessity - Tobacco Use Smoking Status: Former smoker Tobacco Use: Non-smoker Meaningful Use Info Meaningful Use Diagnoses (Choose all that apply): None applicable Code Visit Inpatient E&M: 78245 Disch Hosp
--- NOTE | 2018-07-30 08:49 | PCM.PN.CARD ---
Subjectve: Patient doing very well today, has absolutely no chest pain overnight and feels great. Telemetry showed normal sinus rhythm with rare PVC. EKG shows normal sinus rhythm, no acute changes. Right groin is clean/dry/intact without evidence of hematoma, bruits. He has mild ecchymosis and a small lump from his previous catheterization 1 week ago but no evidence of hematoma or infection. Hemoglobin and creatinine are within nominal limits. Objective: Vital Signs Temp Pulse Resp BP Pulse Ox 97.7 F L 59 L 16 161/90 H 95 07/30/18 04:00 07/30/18 07:00 07/30/18 07:00 07/30/18 07:00 07/30/18 07:08 Oxygen Delivery Method Room Air Weight: 201 lb 11.567 oz Body Mass Index (BMI) 27.3 Intake and Output for Last 24 Hours 07/28/18 07/29/18 07/30/18 23:59 23:59 23:59 Intake Total 1102 / 1102 480 / 480 Output Total 800 / 800 1050 / 1050 Balance 302 / 302 -570 / -570 General: Awake, Alert, Oriented x 3 HEENT: PERRL, EOMI, Sclera Non Icteric Neck: Supple, Good ROM, No Lymph Node Enlargement Lungs: Clear to auscultation Cardiovascular: Regular Rhythm, Normal S1, Normal S2, No Murmurs, No Rubs, No Gallops Vascular: No Carotid Bruits, Normal Femoral Pulses, Normal Radial Pulses, Normal Dorsalis Pedal Pulse, Normal Posterior Tibial Pulses Abdomen: Bowel Sounds Present, Soft, Non Tender, No HSM, No Organomegaly Extremities: No Cyanosis, No Clubbing, No edema Neurological: No Focal Motor or Sensory Deficit 07/29/18 10:20: Urine Color Yellow, Urine Clarity Clear, Urine pH 7.0, Ur Specific [place] 1.005, Urine Protein Negative, Urine Glucose (UA) Normal, Urine Ketones Negative, Urine Occult Blood Negative, Urine Nitrite Negative, Urine Bilirubin Negative, Urine Urobilinogen Normal, Ur Leukocyte Esterase Negative, Urine RBC 0 SEEN, Urine WBC 0 SEEN 07/30/18 04:40: Sodium 141, Potassium 4.4, Chloride 107, Carbon Dioxide 25.0, Anion Gap 9, BUN 23 H, Creatinine 1.16, Est GFR (MDRD) Af Amer 79, Est GFR (MDRD) Non-Af 65, BUN/Creatinine Ratio 19.8, Glucose 133 H, Calcium 8.6 07/30/18 04:40: WBC 4.6, RBC 4.35 L, Hgb 14.8, Hct 41.4, MCV 95.2 H, MCH 34.0 H, MCHC 35.7, RDW 12.2, RDW Differential 41.5, Plt Count 175, MPV 10.3 Rhythm: EKG: ECHO: Stress Test: Cardiac Cath: PCI: CT Surgery: Holter monitor: EPS: PPM: CXR: Chest CT Scan: Medical Necessity - Tobacco Use Smoking Status: Former smoker Assessment/Plan 1. Coronary artery disease: The patient underwent elective catheterization and relook evaluation of his saphenous vein graft to his PDA which demonstrated widely patent stents in his saphenous vein graft as well as in his posterior lateral branch. Patient then underwent successful angioplasty and drug-eluting stenting to a small diagonal #1 receiving a 2.25X8 Promus Synergy stent. The patient had similar chest pain symptoms during stent deployment, and has been chest pain-free overnight. My suspicion is that the patient has a combination of both ischemic and nonischemic chest pain as he has had chest wall pain ever since his surgery many years ago. I would not recommend intervention of his highly calcified mid RCA which effectively only perfuses a moderate size acute marginal branch. At this point he can continue baby aspirin, Plavix, and be discharged home to follow-up with Dr. Montiel going forward. Code Visit Inpatient E&M: 35637 Subs Hosp L2
[2018-07-30] MEDS: Tamsulosin HCl 0.4 MG Capsule PO (09:33)
[2018-07-30] MEDS: Isosorbide Mononitrate 30 MG Tablet 90 MG PO (09:33)
[2018-07-30] MEDS: Finasteride 5 MG Tablet PO (09:34)
[2018-07-30] MEDS: Clopidogrel Bisulfate 75 MG Tablet PO (09:34)
[2018-07-30] MEDS: Lisinopril 10 MG Tablet PO (09:35)
--- NOTE | 2018-07-30 10:00 | EKG12_ITS ---
Test Reason : AM EKG Blood Pressure : / mmHG Vent. Rate : 064 BPM Atrial Rate : 064 BPM P-R Int : 214 ms QRS Dur : 094 ms QT Int : 390 ms P-R-T Axes : 074 043 058 degrees QTc Int : 402 ms Sinus rhythm with 1st degree A-V block Otherwise normal ECG When compared with ECG of 29-JUL-2018 04:39, MANUAL COMPARISON REQUIRED, DATA IS UNCONFIRMED Confirmed by GRACIE SHAW, CHARO ([id number]), editorial cartoonist SHANIQUA BLOOM ([id number]) on 08/03/2018 2:09:03 PM Referred By: DR YOST Confirmed By:CHARO BOWMAN MD
== END 2018-07-30 09:45 | disposition home or self-care (01) ==
LOC: ED 19:49 → PCU 21:31 → ICU 07-29 13:03
PROVIDERS: Internal Medicine Cardiovascular Disease; Physician Assistant; Admitting Provider Hospitalist; Emergency Provider Emergency Medicine; Family Provider Internal Medicine; PCP Internal Medicine; Visit Provider Internal Medicine
DX: I25.110 Atherosclerotic heart disease of native coronary artery with unstable angina pectoris (principal); G61.81 Chronic inflammatory demyelinating polyneuritis; E11.40 Type 2 diabetes mellitus with diabetic neuropathy, unspecified; E78.5 Hyperlipidemia, unspecified; E11.65 Type 2 diabetes mellitus with hyperglycemia; E03.9 Hypothyroidism, unspecified; G20 Parkinson's disease; B02.29 Other postherpetic nervous system involvement; N40.0 Benign prostatic hyperplasia without lower urinary tract symptoms; E11.22 Type 2 diabetes mellitus with diabetic chronic kidney disease; I12.9 Hypertensive chronic kidney disease with stage 1 through stage 4 chronic kidney disease, or unspecified chronic kidney disease; N18.3 Chronic kidney disease, stage 3 (moderate); Z79.899 Other long term (current) drug therapy; Z79.02 Long term (current) use of antithrombotics/antiplatelets; Z95.1 Presence of aortocoronary bypass graft; Z79.82 Long term (current) use of aspirin; Z79.84 Long term (current) use of oral hypoglycemic drugs; Z87.891 Personal history of nicotine dependence
CPT/HCPCS: 36415; 71045; 80048; 81001; 82962; 84484; 85025; 85027; 85347; 85379; 85610; 85730; 92928; 93005; 93454; 93455; 96372; 96374; 97802; 99218; 99285; A4216; C1725; C1769; C1874; C1887; C1894; C9600; G0378; J2405; Q9967

== ENCOUNTER → 2019-04-05 | Outpatient (CLI) | payer MEDICARE, SELFPAY ==
[2018-07-20 11:42] VITALS: BMI 28.1
[2019-04-05 16:00] LABS: Bacteria 0 SEEN /hpf (None Seen); Squamous Epithelial Cells - UA 0 SEEN /hpf (0-5)
[2019-04-05 17:32] LABS: Color, Urine Yellow (Yellow); Glucose, Dipstick Normal (Normal); Ketone-Dipstick 5 mg/dl (Negative); Leukocyte Esterase-Dipstick 25 /ul (Negative); Nitrite-Dipstick Negative (Negative); Occult Blood-Urine Negative /ul (Negative); Protein-Dipstick 30 mg/dl (Negative); Urine Clarity Clear (Clear); Urine Urobilinogen 1 mg/dl (Normal)
[2019-04-05 17:42] LABS: Absolute Lymphocyte Count 0.94 X10^3/ul (0.83-4.51); Absolute Neutrophil Count 3.3 X10^3/uL (2.0-7.7); Basophil# 0.01 X10^3/uL; Basophil% 0.2 % (0-1); Hematocrit 41.6 % (40-54); Hemoglobin 14.3 g/dl (13.0-16.5); Lymphocyte # 0.94 X10^3/ul (4.0); Lymphocyte % 18.6 % (19-41); Mean Corp Hgb Conc 34.4 g/gl (32-36); Mean Corpuscular Hgb 32.9 pg (27.0-32.0); Mean Corpuscular Volume 95.9 fL (80-94); Mean Platelet Vol. 10.7 fl (6.2-12.0); Monocyte% 11.9 % (0-10); Neutrophil # 3.31 X10^3/uL (2.7-7.7); Neutrophil % 65.3 % (47-70); Platelet Count 180 K/mm3 (150-450); RBC Distribution Width CV 12.4 % (11.6-14.6); RBC Distribution Width SD 43.5 fl (35.1-43.9); Red Blood Count 4.34 M/mm3 (4.6-6.2); White Blood Count 5.1 K/mm3 (4.4-11.0)
[2019-04-05 17:44] LABS: POSITIVE COUNT NO; POSITIVE DIFFERENTIAL NO; POSITIVE MORPHOLOGY NO
[2019-04-05 17:55] LABS: ALB/GLOB Ratio 1.4 RATIO (0.9-2.4); AST(SGOT) 30 U/L (15-37); Alanine Aminotransfer ALT/SGPT 22 U/L (16-61); Albumin, Serum 4.1 g/dL (3.2-5.0); Alkaline Phosphatase 56 U/L (45-117); Anion Gap 9 (5-15); BUN 27 mg/dL (7-18); BUN/Creat Ratio 17.5 RATIO (10-20); Chloride 102 mmol/L (98-107); Cholesterol 144 mg/dL (200); Creatinine, Serum 1.54 mg/dL (0.70-1.30); EST Glomerular Filtration Rate 47 mL/min (>60); Est Glom Filt Rate - Afr Amer 57 mL/min (>60); Glucose 144 mg/dL (74-106); High Density Lipoprotein 42 mg/dL; Magnesium 1.7 mg/dL (1.6-2.6); Potassium 4.2 mmol/L (3.5-5.1); Protein, Total 7.1 g/dL (6.4-8.2); Sodium Level 139 mmol/L (136-145); T4 Free Direct 1.13 ng/dL (0.76-1.46); Thyroid Stim Hormone (TSH) 2.47 uIU/mL (0.358-3.74); Triglycerides 110 mg/dL; Very Low Density Lipoprotein 22 mg/dL (5-40)
[2019-04-05 18:00] LABS: Hemoglobin A1c 6.9 % (4.2-6.3)
[2019-04-05 18:07] LABS: Microalbumin,Random Urine 39.1 mg/L (NO RANGE EST.); Microalbumin:Creatinine Ratio 13.1 mg/g CRE (<30 mg/g CRE)
[2019-04-05 18:17] LABS: Urine Bilirubin Dipstick 1 mg/dL (Negative)
[2019-04-05 18:37] LABS: Hyaline Cast 10-25 SEEN /lpf (0-5); Mucous, Urine 2+ /hpf (<or=2+); Red Blood Cells-Urine 0-5 SEEN /hpf (0-5); White Blood Cells 0-5 SEEN /hpf (0-5)
[2019-04-08 14:58] LABS: Anti-Thyroglobulin AB < 1.0 IU/mL (0.0-0.9); Thyroglobulin, Serum Qt. 5.9 ng/mL (1.4-29.2); Thyroid Peroxidase AB 8 IU/mL (0-34)
== END | disposition home or self-care (01) ==
PROVIDERS: Family Provider Family Medicine; PCP Family Medicine; Referring Provider Family Medicine; Visit Provider Family Medicine
DX: I10 Essential (primary) hypertension (principal); E11.9 Type 2 diabetes mellitus without complications; E03.9 Hypothyroidism, unspecified; E78.5 Hyperlipidemia, unspecified; E83.42 Hypomagnesemia
CPT/HCPCS: 36415; 80053; 80061; 81001; 82043; 82570; 83036; 83735; 84432; 84439; 84443; 85025; 86376; 86800

== ENCOUNTER → 2019-11-17 10:13 | Outpatient (CLI) | payer MEDICARE, SELFPAY ==
[2018-07-20 11:42] VITALS: BMI 28.1
[2019-06-20 11:49] VITALS: BMI 27.3
--- NOTE | 2019-11-17 10:17 | RAD_ITS ---
STUDY: X-RAY CHEST REASON FOR EXAM: Male, 79 years old. chest pain TECHNIQUE: PA and lateral views of the chest. COMPARISON: 07/28/2018. FINDINGS: The lungs are clear and expanded. There is no demonstrated pleural abnormality. Sternal cerclage wires are present from a prior sternotomy. Normal mediastinum and bailey. Normal visualized pulmonary arteries. There is atherosclerotic calcification of the aortic arch with tortuosity. There are diffuse degenerative changes of the visualized thoracic spine. There is degenerative osteoarthritis of the bilateral shoulders. There is no demonstrated abnormality of the visualized soft tissue structures of the upper abdomen. RAD/Chest PA and Lateral IMPRESSION: No acute cardiopulmonary disease. Electronically Signed: Valencia Avila MD at 1:00 EST , Service support ,
[2019-11-17 11:16] LABS: CPK Total, Creatine Kinase 256 U/L (39-308)
[2019-11-20 13:09] LABS: Myoglobin, Serum 71 ng/mL (28-72)
== END ==
PROVIDERS: Family Provider Family Medicine; PCP Family Medicine; Referring Provider Nurse Practitioner; Visit Provider Nurse Practitioner
DX: R07.9 Chest pain, unspecified (principal)
CPT/HCPCS: 71046; 82550; 83874; 84484

== ENCOUNTER → 2020-01-12 12:18 | Outpatient (CLI) | payer MEDICARE, SELFPAY ==
[2018-07-20 11:42] VITALS: BMI 28.1
[2019-12-18 13:18] VITALS: BMI 27.8
[2020-01-12 13:44] LABS: AST(SGOT) 28 U/L (15-37); Alanine Aminotransfer ALT/SGPT 14 U/L (16-61); Albumin, Serum 4.1 g/dL (3.2-5.0); Alkaline Phosphatase 66 U/L (45-117); Bilirubin, Direct 0.25 mg/dL (0.00-0.30); Cholesterol 141 mg/dL (200); Globulin 3.6 g/dL (2.2-4.2); High Density Lipoprotein 46 mg/dL; Protein, Total 7.7 g/dL (6.4-8.2); Triglycerides 94 mg/dL; Very Low Density Lipoprotein 19 mg/dL (5-40)
== END ==
LOC: LAB 12:23
PROVIDERS: PCP Family Medicine Geriatric Medicine; Referring Provider Internal Medicine Cardiovascular Disease; Visit Provider Internal Medicine Cardiovascular Disease
DX: I25.10 Atherosclerotic heart disease of native coronary artery without angina pectoris (principal); E78.5 Hyperlipidemia, unspecified
CPT/HCPCS: 36415; 80061; 80076

== ENCOUNTER 2021-04-21 20:32 | Emergency (ER) | payer OTHER, SELFPAY ==
[2020-03-14 14:48] VITALS: BMI 28.1
[2021-01-21 08:29] VITALS: BMI 27.9
[2021-04-21 20:34] VITALS: BP 148/64; PULSE 69; RESP 18; TEMP 36.6; O2SAT 95; BMI 25.9
--- NOTE | 2021-04-21 21:05 | EKG12_ITS ---
Test Reason : CP Blood Pressure : / mmHG Vent. Rate : 068 BPM Atrial Rate : 068 BPM P-R Int : 228 ms QRS Dur : 116 ms QT Int : 410 ms P-R-T Axes : 081 028 038 degrees QTc Int : 435 ms Sinus rhythm with 1st degree A-V block Incomplete left bundle branch block Borderline ECG Confirmed by KERRY SHAW, ANITA ([id number]), photographic editor CARMENZA BOJORQUEZ ([id number]) on 04/23/2021 1:06:42 PM Referred By: ELENI/MIMI Confirmed By:ANITA PAYNE MD
--- NOTE | 2021-04-21 21:06 | ED.VIS.CHEST ---
HPI History of Present Illness Chief Complaint: Chest Pain Narrative Narrative: This patient is a 81-year-old male who presents with chest pain and near syncope. He has a history of diabetes hypertension hyperlipidemia prior CABG and Parkinson's disease. He has been having chest pain for months. He had a recent heart cath just a couple of days ago at [facility]. He was told he had some calcifications and a high risk lesion that may need further intervention. Plan was to obtain a stress test to see if he had any ischemic changes to determine if he needed any intervention. Today he developed nausea diaphoresis chest pain and near syncope. He did not actually lose consciousness. Pain is on left side of his chest. It is sharp. It is mild. [facility] Medical History (Updated 04/21/21 @ 22:[address] Michael Orta MD) 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 heart disease of [place] coronary artery without angina pectoris Cataract CIDP (chronic inflammatory demyelinating polyneuropathy) Diabetic neuropathy Essential tremor GERD (gastroesophageal reflux disease) History of chest pain HLD (hyperlipidemia) HTN (hypertension) Parkinson's disease Type II diabetes mellitus, uncontrolled Home Medications lisinopril 10 mg PO DAILY 11/15/15 [History Last Taken 07/28/18 06:00] metformin 1,000 mg PO BIDCM 11/15/15 [History Last Taken 07/28/18 06:00] tamsulosin 0.4 mg PO DAILY 02/28/16 [History Last Taken 07/28/18 18:00] cholecalciferol (vitamin D3) 5,000 unit PO MOWEFR 06/15/18 [History Last Taken 07/27/18 18:00] levothyroxine 75 mcg PO DAILY 06/15/18 [History Last Taken 07/28/18 06:00] clopidogrel 75 mg PO DAILY 07/20/18 [History Last Taken 07/27/18 12:00] aspirin 81 mg PO DAILY@0800 07/28/18 [History Last Taken 07/28/18 06:00] isosorbide mononitrate 90 mg PO DAILY 07/28/18 [History Last Taken 07/28/18 06:00] nitroglycerin 0.4 mg PO PRN PRN 07/28/18 [History Last Taken 07/28/18] folic acid 800 mcg tablet 0.8 mg PO BID tab 06/17/19 [History Last Taken Unknown] gabapentin 800 mg tablet 800 mg PO TID 06/17/19 [History Last Taken Unknown] atorvastatin 80 mg tablet 80 mg PO QHS tab 06/20/19 [History Last Taken Unknown] hydrochlorothiazide 25 mg tablet 25 mg PO DAILY #90 tab 02/23/20 [Rx Last Taken Unknown] glimepiride 2 mg tablet 4 mg PO BID tab 04/26/20 [History Last Taken Unknown] blood sugar diagnostic #10 ea 05/03/20 [Rx Last Taken Unknown] blood-glucose meter #200 ea 05/03/20 [Rx Last Taken Unknown] magnesium oxide 400 mg (241.3 mg magnesium) tablet 800 mg PO DAILY tab 01/21/21 [History Last Taken Unknown] ondansetron HCl 4 mg tablet 4 mg PO BID #180 tab 03/19/21 [Rx Last Taken Unknown] amantadine HCl 100 mg tablet 100 mg PO BID #180 tab 04/03/21 [Rx Last Taken Unknown] carbidopa-levodopa 1 tab PO BID 04/21/21 [History Last Taken Unknown] Allergy/AdvReac Type Severity Reaction Status Date / Time Beta-Blockers Allergy Severe ANGIOEDEMA Verified 04/21/21 20:41 (Beta-Adrenergic Bloc Family History Mother Alzheimer's dementia Father CAD (coronary artery disease) Brother CAD (coronary artery disease) Surgical History History of left heart catheterization 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) Stented coronary artery (07/29/18) Social History (Updated 01/21/21 @ 22:[address] Ben Smith MD) Smoking Status: Never smoker ROS ROS ED Constitutional Constitutional ED: Reports sweats; Denies fever(s) Cardiovascular Cardiovascular: Reports chest pain Respiratory/Chest Respiratory/Chest: Reports dyspnea Gastrointestinal Gastrointestinal: Reports nausea Integumentary Denies rash Neurologic Neurologic: Denies headache(s) Allergic/Immunologic Allergic/Immunologic ED: Denies urticaria EXAM Physical Exam Const Vital Signs: 04/21/21 20:34 04/21/21 20:42 04/21/21 21:08 Temperature 98 F Temperature Source Oral Pulse Rate 69 Respiratory Rate 18 Respiratory Effort Normal Non-Labored Respiratory Pattern Normal Blood Pressure 148/64 H Blood Pressure Mean 92 Pulse Ox 95 Oxygen Delivery Method Room Air Room Air 04/21/21 22:14 Temperature Temperature Source Pulse Rate 58 L Respiratory Rate 14 Respiratory Effort Respiratory Pattern Blood Pressure 135/67 H Blood Pressure Mean 89 Pulse Ox 96 Oxygen Delivery Method Room Air Positive well developed General Appearance ED: well developed HEENT normocephalic Eyes EOMs intact bilaterally Neck supple Chest Wall inspection of chest normal Resp normal respiratory effort Cardio regular rate and regular rhythm GI soft to palpation, non-tender and non-distended Neuro Sensorium / Orientation: awake and alert Psych mental status grossly normal Skin no rashes or lesions noted MDM MDM MDM Narrative Medical decision making narrative: EKG shows sinus rhythm with a first-degree AV block, incomplete left bundle branch block. Labs are unremarkable with a negative troponin. Chest x-ray shows no acute abnormalities. Given the patient had a recent heart cath with plan for further diagnostic evaluation I recommended transfer back to the facility where his catheterization was performed. Patient is hesitant to be transferred. He asked that I speak to cardiology here. I spoke to Dr. Sabillon who agrees with my assessment for transfer to [facility]. Patient is now agreeable. I spoke to the transfer line and patient was accepted. Lab Data Labs: Laboratory Results - last 24 hr 04/21/21 04/21/21 20:45 20:45 WBC 5.7 RBC 3.86 L Hgb 13.4 Hct 38.9 L MCV 100.8 H MCH 34.7 H MCHC 34.4 RDW Std Deviation 41.9 RDW Coeff of Hubert 11.3 L Plt Count 223 MPV 10.0 Immature Gran % (Auto) 0.400 Neut % (Auto) 59.2 Lymph % (Auto) 23.8 [place] % (Auto) 12.0 H Eos % (Auto) 4.2 Baso % (Auto) 0.4 Absolute Neuts (auto) 3.4 Absolute Lymphs (auto) 1.35 Nucleated RBC % 0 Sodium 133 L Potassium 4.1 Chloride 99 Carbon Dioxide 26.0 Anion Gap 8 BUN 38 H Creatinine 1.74 H Estim Creat Clear Calc 37.78 Est GFR (MDRD) Af Amer 49 L Est GFR (MDRD) Non-Af 40 L BUN/Creatinine Ratio 21.8 H Glucose 216 H Calcium 9.0 Troponin I < 0.015 Radiography Diagnostic Testing: Radiology Impression Chest X-Ray 04/21/21 21:13 IMPRESSION: No acute radiographic abnormalities. Electronically Signed: Kenneth Perez MD at 21:55 EDT Tel , Service support , Discharge Plan Triage Chief Complaint: Chest Pain Other Complaint: Nausea/Vomiting ED Provider: Michael Orta Dx/Rx/DC Orders Clinical Impression: Chest pain Prescriptions: No Action gabapentin 800 mg tablet 800 mg PO TID RF: 0 folic acid 800 mcg tablet 0.8 mg PO BID RF: 0 magnesium oxide 400 mg (241.3 mg magnesium) tablet 800 mg PO DAILY RF: 0 glimepiride 2 mg tablet 4 mg PO BID RF: 0 metformin 1,000 MG tablet 1,000 mg PO BIDCM RF: 0 lisinopril 10 MG tablet 10 mg PO DAILY RF: 0 tamsulosin 0.4 MG capsule 0.4 mg PO DAILY RF: 0 levothyroxine 75 MCG tablet 75 mcg PO DAILY RF: 0 cholecalciferol (vitamin D3) 5,000 UNIT capsule 5,000 unit PO MOWEFR RF: 0 clopidogrel 75 MG tablet 75 mg PO DAILY RF: 0 aspirin 81 MG tablet 81 mg PO DAILY@0800 RF: 0 isosorbide mononitrate 60 MG tablet 90 mg PO DAILY RF: 0 nitroglycerin 0.4 MG tablet, sublingual 0.4 mg PO PRN PRN (Reason: CHEST PAIN ) RF: 0 atorvastatin 80 mg tablet 80 mg PO QHS RF: 0 carbidopa-levodopa 25-100 mg tablet 1 tab PO BID RF: 0 hydrochlorothiazide 25 mg tablet 25 mg PO DAILY Qty: 90 RF: 3 (DME) blood-glucose meter [Accu-Chek [place] Plus Meter] Misc See Rx Instructions .ROUTE .MEDSUPPLY Qty: 200 RF: 3 (DME) blood sugar diagnostic [Accu-Chek [place] Plus test strp] Strip See Rx Instructions .ROUTE .MEDSUPPLY Qty: 10 RF: 0 ondansetron HCl 4 mg tablet 4 mg PO BID Qty: 180 RF: 0 amantadine HCl 100 mg tablet 100 mg PO BID Qty: 180 RF: 0 Primary Care Provider: Felix Montelongo Referrals: Felix Montelongo MD [Primary Care Provider] - Disposition Disposition: Acute Care Hospital Discharge Location: [facility]
[2021-04-21 21:13] LABS: Absolute Lymphocyte Count 1.35 X10^3/uL (0.83-4.51); Absolute Neutrophil Count 3.4 X10^3/uL (2.0-7.7); Basophil# 0.02 X10^3/uL; Basophil% 0.4 % (0-1); Eosinophil# 0.24 X10^3/uL; Eosinophils% 4.2 % (0-5); Hematocrit 38.9 % (40-54); Hemoglobin 13.4 g/dL (13.0-16.5); Lymphocyte # 1.35 X10^3/ul (0.83-4.51); Lymphocyte % 23.8 % (19-41); Mean Corp Hgb Conc 34.4 g/dL (32-36); Mean Corpuscular Hgb 34.7 pg (27.0-32.0); Mean Corpuscular Volume 100.8 fL (80-94); Monocyte# 0.68 X10^3/uL; NRBC Flagged by Analyzer 0 % (0-5); Neutrophil # 3.37 X10^3/uL (2.7-7.7); Neutrophil % 59.2 % (47-70); Platelet Count 223 K/mm3 (150-450); RBC Distribution Width CV 11.3 % (11.6-14.6); RBC Distribution Width SD 41.9 fl (35.1-43.9); Red Blood Count 3.86 M/mm3 (4.6-6.2); White Blood Count 5.7 K/mm3 (4.4-11.0)
--- NOTE | 2021-04-21 21:13 | RAD_ITS ---
INDICATION: chest pain EXAMINATION/TECHNIQUE: X-RAY - XR Chest 1 View COMPARISON: 11/17/2019. FINDINGS: Left basilar atelectasis. Lungs are otherwise clear. The cardiomediastinal silhouette is unremarkable. Median sternotomy wires present. Multiple mediastinal clips present. No pleural effusion or pneumothorax. Degenerative changes of the thoracic spine and shoulders. RAD/Chest 1 View (Portable) IMPRESSION: No acute radiographic abnormalities. Electronically Signed: Kenneth Perez MD at 21:55 EDT Tel , Service support ,
[2021-04-21] MEDS: Aspirin 81 MG TAB.CHEW 324 MG PO (21:15)
[2021-04-21 21:28] LABS: Anion Gap 8 (5-15); BUN 38 mg/dL (7-18); BUN/Creat Ratio 21.8 RATIO (10-20); Chloride 99 mmol/L (98-107); Creatinine, Serum 1.74 mg/dL (0.70-1.30); EST Glomerular Filtration Rate 40 mL/min (>60); Est Glom Filt Rate - Afr Amer 49 mL/min (>60); Estimated Creatinine Clearance 37.78 ml/min; Glucose 216 mg/dL (74-106); Potassium 4.1 mmol/L (3.5-5.1); Sodium Level 133 mmol/L (136-145)
[2021-04-21 22:14] VITALS: BP 135/67; PULSE 58; RESP 14; O2SAT 96
[2021-04-21 22:45] VITALS: BP 153/69; PULSE 57; RESP 15; TEMP 36.6; O2SAT 97
--- NOTE | 2021-04-21 23:08 | ED.RN ---
called LINSEY Chin at [facility] to inform of EMS arrival for pt transport to their facility.
== END 2021-04-21 23:17 | disposition short-term general hospital (02) ==
PROVIDERS: Emergency Provider Emergency Medicine; PCP Family Medicine Geriatric Medicine
DX: R07.9 Chest pain, unspecified (principal); R61 Generalized hyperhidrosis; R11.0 Nausea; I44.0 Atrioventricular block, first degree; I44.7 Left bundle-branch block, unspecified; I10 Essential (primary) hypertension; E78.5 Hyperlipidemia, unspecified; G20 Parkinson's disease; H26.9 Unspecified cataract; E11.40 Type 2 diabetes mellitus with diabetic neuropathy, unspecified; K21.9 Gastro-esophageal reflux disease without esophagitis; G61.81 Chronic inflammatory demyelinating polyneuritis; I25.810 Atherosclerosis of coronary artery bypass graft(s) without angina pectoris; Z79.82 Long term (current) use of aspirin; Z79.84 Long term (current) use of oral hypoglycemic drugs; Z79.899 Other long term (current) drug therapy
CPT/HCPCS: 71045; 80048; 84484; 85025; 93005; 99285; J7030; A4216

== ENCOUNTER → 2021-05-02 10:31 | Outpatient (CLI) | payer OTHER, SELFPAY ==
[2020-03-14 14:48] VITALS: BMI 28.1
[2021-04-21 20:34] VITALS: BMI 25.9
[2021-05-02 12:42] LABS: Vitamin B12 715 pg/mL (211-911)
[2021-05-02 13:48] LABS: ALB/GLOB Ratio 1.2 RATIO (0.9-2.4); AST(SGOT) 23 U/L (15-37); Alanine Aminotransfer ALT/SGPT 34 U/L (16-61); Albumin, Serum 3.7 g/dL (3.2-5.0); Alkaline Phosphatase 81 U/L (45-117); Anion Gap 6 (5-15); BUN 20 mg/dL (7-18); BUN/Creat Ratio 15.5 RATIO (10-20); Calcium,Total 8.8 mg/dL (8.5-10.1); Chloride 98 mmol/L (98-107); Creatinine, Serum 1.29 mg/dL (0.70-1.30); EST Glomerular Filtration Rate 57 mL/min (>60); Est Glom Filt Rate - Afr Amer 69 mL/min (>60); Globulin 3.1 g/dL (2.2-4.2); Glucose 123 mg/dL (74-106); Potassium 4.1 mmol/L (3.5-5.1); Protein, Total 6.8 g/dL (6.4-8.2); Sodium Level 135 mmol/L (136-145); Thyroid Stim Hormone (TSH) 3.15 uIU/mL (0.358-3.74)
[2021-05-07 08:09] LABS: Free Kappa Light Chains 26.4 mg/L (3.3-19.4); Free Lambda Light Chains 19.1 mg/L (5.7-26.3)
[2021-05-07 13:20] LABS: Vitamin B1, Thiamine 163.5 nmol/L (66.5-200.0)
== END ==
PROVIDERS: PCP Family Medicine Geriatric Medicine; Referring Provider Psychiatry & Neurology Neurology; Visit Provider Psychiatry & Neurology Neurology
DX: G31.84 Mild cognitive impairment of uncertain or unknown etiology (principal); G62.9 Polyneuropathy, unspecified
CPT/HCPCS: 36415; 80053; 82607; 82746; 83735; 83883; 84425; 84443

== ENCOUNTER → 2022-06-04 | Outpatient (CLI) | payer MEDICARE, SELFPAY ==
[2020-03-14 14:48] VITALS: BMI 28.1
[2022-06-04 10:32] LABS: Microalbumin:Creatinine Ratio 97.5 mg/g CRE (<30 mg/g CRE)
[2022-06-04 10:58] LABS: ALB/GLOB Ratio 1.2 RATIO (0.9-2.4); AST(SGOT) 27 U/L (15-37); Alanine Aminotransfer ALT/SGPT 35 U/L (16-61); Albumin, Serum 4.1 g/dL (3.2-5.0); Alkaline Phosphatase 66 U/L (45-117); Anion Gap 6 (5-15); BUN 28 mg/dL (7-18); BUN/Creat Ratio 18.2 RATIO (10-20); Chloride 100 mmol/L (98-107); Cholesterol 180 mg/dL (200); Creatinine, Serum 1.54 mg/dL (0.70-1.30); EST Glomerular Filtration Rate 46 mL/min (>60); Est Glom Filt Rate - Afr Amer 56 mL/min (>60); Globulin 3.4 g/dL (2.2-4.2); Glucose 138 mg/dL (74-106); High Density Lipoprotein 59 mg/dL; Potassium 4.4 mmol/L (3.5-5.1); Protein, Total 7.5 g/dL (6.4-8.2); Sodium Level 135 mmol/L (136-145); Thyroid Stim Hormone (TSH) 4.27 uIU/mL (0.358-3.74); Triglycerides 54 mg/dL; Very Low Density Lipoprotein 11 mg/dL (5-40)
[2022-06-07 12:07] LABS: Testosterone, Free 9.07 ng/dL (5.00-21.00)
[2022-06-07 14:02] LABS: Testosterone, % Free 2.15 % (1.50-4.20); Testosterone, Total 422 ng/dL (264-916)
== END | disposition home or self-care (01) ==
PROVIDERS: PCP Family Medicine Geriatric Medicine; Referring Provider Nurse Practitioner Family; Visit Provider Nurse Practitioner Family
DX: E11.65 Type 2 diabetes mellitus with hyperglycemia (principal); I25.10 Atherosclerotic heart disease of native coronary artery without angina pectoris; G25.0 Essential tremor; R53.83 Other fatigue
CPT/HCPCS: 36415; 80053; 80061; 82043; 82570; 84402; 84403; 84443

== ENCOUNTER → 2023-06-29 | Outpatient (CLI) | payer MEDICARE, SELFPAY ==
[2020-03-14 14:48] VITALS: BMI 28.1
[2023-06-29 10:04] LABS: Absolute Lymphocyte Count 0.81 X10^3/uL (0.83-4.51); Absolute Neutrophil Count 3.9 X10^3/uL (2.0-7.7); Basophil# 0.01 X10^3/uL; Basophil% 0.2 % (0-1); Eosinophil# 0.18 X10^3/uL; Eosinophils% 3.3 % (0-5); Hematocrit 40.9 % (40-54); Hemoglobin 14.4 g/dL (13.0-16.5); Lymphocyte # 0.81 X10^3/ul (0.83-4.51); Lymphocyte % 14.8 % (19-41); Mean Corp Hgb Conc 35.2 g/dL (32-36); Mean Corpuscular Hgb 34.1 pg (27.0-32.0); Mean Corpuscular Volume 96.9 fL (80-94); Mean Platelet Vol. 9.7 fl (6.2-12.0); Monocyte# 0.61 X10^3/uL; Monocyte% 11.1 % (0-10); NRBC Flagged by Analyzer 0 % (0-5); Neutrophil # 3.86 X10^3/uL (2.7-7.7); Neutrophil % 70.4 % (47-70); Platelet Count 217 K/mm3 (150-450); RBC Distribution Width CV 11.9 % (11.6-14.6); RBC Distribution Width SD 42.5 fl (35.1-43.9); Red Blood Count 4.22 M/mm3 (4.6-6.2); White Blood Count 5.5 K/mm3 (4.4-11.0)
[2023-06-29 10:25] LABS: Hemoglobin A1c 6.9 % (3.8-5.6); Microalbumin,Random Urine 32.2 mg/L (NO RANGE EST.); Microalbumin:Creatinine Ratio 26.8 mg/g CRE (<30 mg/g CRE)
[2023-06-29 11:05] LABS: ALB/GLOB Ratio 1.2 RATIO (0.9-2.4); AST(SGOT) 21 U/L (15-37); Alanine Aminotransfer ALT/SGPT 24 U/L (16-61); Albumin, Serum 3.9 g/dL (3.2-5.0); Alkaline Phosphatase 59 U/L (45-117); Anion Gap 6 (5-15); BUN 28 mg/dL (7-18); BUN/Creat Ratio 18.1 RATIO (10-20); Chloride 101 mmol/L (98-107); Cholesterol 170 mg/dL (200); Creatinine, Serum 1.55 mg/dL (0.70-1.30); EST Glomerular Filtration Rate 46 mL/min (>60); Est Glom Filt Rate - Afr Amer 56 mL/min (>60); Globulin 3.3 g/dL (2.2-4.2); Glucose 119 mg/dL (74-106); High Density Lipoprotein 56 mg/dL; PSA,Total - Annual Screen 3.35 ng/mL (0.00-4.00); Potassium 4.8 mmol/L (3.5-5.1); Protein, Total 7.2 g/dL (6.4-8.2); Sodium Level 134 mmol/L (136-145); Thyroid Stim Hormone (TSH) 4.85 uIU/mL (0.358-3.74); Triglycerides 57 mg/dL; Very Low Density Lipoprotein 11 mg/dL (5-40)
== END | disposition home or self-care (01) ==
PROVIDERS: PCP Family Medicine Geriatric Medicine
DX: E11.49 Type 2 diabetes mellitus with other diabetic neurological complication (principal); E11.29 Type 2 diabetes mellitus with other diabetic kidney complication; E78.5 Hyperlipidemia, unspecified; E03.9 Hypothyroidism, unspecified; Z12.5 Encounter for screening for malignant neoplasm of prostate
CPT/HCPCS: 36415; 80053; 80061; 82043; 82570; 83036; 84153; 84443; 85025; G0103

== ENCOUNTER 2024-10-25 12:54 | Outpatient (RCR) | payer MEDICARE, SELFPAY ==
[2020-03-14 14:48] VITALS: BMI 28.1
[2024-10-25 13:21] VITALS: BP 176/80; PULSE 72; RESP 18; TEMP 36.4; BMI 25.1
--- NOTE | 2024-10-25 17:11 | HP.PCM_ITS ---
History of Present Illness Date of Service: 10/25/24 Chief Complaint: Right posterior leg ulcer and sacral pressure History of Wound: 85 year old male with a history of Parkinson's presents for evaluation for a wounds on his right posterior leg and on his sacral area. He walks with a walker and admits to sitting for long periods of time. The right posterior leg ulcer occurred after he rests his feet on a wooden stool. With his Parkinson's disease, the shaking of his foot caused the stool to rub against his leg and cause a wound He also has significant swelling of his lower extremities (right is worse than left). This occurred several months ago. The erythema to his sacral area is due to pressure and sitting for too long. He has a history significant for CAD, CABG, DM, Parkinson's disease and HTN. Today he denies fever, chills, nausea or vomiting. Progress of Wound: Right posterior leg non healing ulcer with dry, scabbing non viable tissue present. He also has small ulcer on anterior leg, most likely from edema. +4 pitting edema, right leg worse than left. He admits to sitting for long periods of time with his legs dependent. He wears compression on his left but doesn't like it on his right. His sacral area is erythematous and dry but no open wounds. [facility] Medical History Diabetes GERD (gastroesophageal reflux disease) Cataract 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 heart disease of [place] coronary artery without angina pectoris Parkinson's disease Essential tremor CIDP (chronic inflammatory demyelinating polyneuropathy) Diabetic neuropathy HTN (hypertension) HLD (hyperlipidemia) Type II diabetes mellitus, uncontrolled History of chest pain Home Medications ?Medication ?Instructions ?Recorded ?Last Taken ?Type lisinopril 10 mg tablet 10 mg PO DAILY blood pressure 11/15/15 07/28/18 06:00 History metformin 1,000 mg tablet 1,000 mg PO BIDCM blood sugar 11/15/15 07/28/18 06:00 History tamsulosin 0.4 mg capsule 0.4 mg PO DAILY prostate 02/28/16 07/28/18 18:00 History cholecalciferol (vitamin D3) 125 5,000 unit PO MOWEFR supplement 06/15/18 07/27/18 18:00 History mcg (5,000 unit) capsule clopidogrel 75 mg tablet 75 mg PO DAILY Heart 07/20/18 07/27/18 12:00 History aspirin 81 mg tablet,delayed 81 mg PO DAILY@0800 HEART HEALTH 07/28/18 07/28/18 06:00 History release nitroglycerin 0.4 mg sublingual 0.4 mg PO PRN PRN CHEST PAIN 07/28/18 07/28/18 History tablet folic acid 800 mcg tablet 0.8 mg PO BID 06/17/19 Unknown History gabapentin 800 mg tablet 800 mg PO TID 06/17/19 Unknown History atorvastatin 80 mg tablet 80 mg PO QHS CHOLESTEROL 06/20/19 Unknown History blood-glucose meter (Accu-Chek #200 ea 05/03/20 Unknown Rx Bettina Plus Meter) magnesium oxide 400 mg (241.3 mg 800 mg PO DAILY 01/21/21 Unknown History magnesium) tablet ranolazine 500 mg tablet,extended 500 mg PO BID 04/21/21 Unknown History release,12 hr carbidopa 25 mg-levodopa 100 mg 1 tab translingual TID 06/13/21 Unknown History disintegrating tablet levothyroxine 50 mcg tablet 50 mcg PO DAILY 06/13/21 Unknown History blood sugar diagnostic (Accu-Chek #200 ea 10/28/22 Unknown Rx Bettina Plus test strips) glimepiride 2 mg tablet 4 mg (2 x 2 mg) PO DAILY blood 05/07/23 Unknown Rx sugar #90 tabs Farxiga 5 mg tablet (dapagliflozin 5 mg PO DAILY #90 tabs 09/29/24 Unknown Rx propanediol) amoxicillin 875 mg-potassium 1 tab PO Q12H 10 days #20 tabs 10/27/24 Unknown Rx clavulanate 125 mg tablet Allergy/AdvReac Type Severity Reaction Status Date / Time Beta-Blockers Allergy Severe ANGIOEDEMA Verified 10/27/24 10:34 (Beta-Adrenergic Bloc Family History Mother Alzheimer's dementia Diabetes Father CAD (coronary artery disease) Heart disease Brother CAD (coronary artery disease) Daughter Arthritis Surgical History 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) History of left heart catheterization Stented coronary artery (07/29/18) Social History Smoking Status: Never smoker second hand exposure: No alcohol intake: never substance use type: does not use caffeine: No what type of physical activity do you participate in: none frequency: does not exercise ROS Constitutional Constitutional: Denies chills or fever(s) Eyes Eyes: Reports none ENT HEENT: Reports none Cardiovascular Cardiovascular: Reports as per HPI; Denies chest pain or dyspnea Respiratory/Chest Respiratory/Chest: Denies cough or dyspnea Gastrointestinal Gastrointestinal: Reports none Genitourinary Genitourinary: Reports none Musculoskeletal Musculoskeletal: Reports as per HPI Integumentary Integumentary: Reports as per HPI and skin ulcer Neurologic Neurologic: Reports as per HPI Psychiatric Psychiatric: Reports none Endocrine Endocrinology: Reports as per HPI Allergic/Immunologic Allergic/Immunologic: Reports none Vital Signs Vital Signs Vital Signs: 10/25/24 13:21 Temperature 97.5 F L Temperature Source Temporal Pulse Rate 72 Respiratory Rate 18 Blood Pressure 176/80 H Blood Pressure Mean 112 Blood Pressure Source Monitor Blood Pressure Position Sitting Blood Pressure Location Right Arm Oxygen Delivery Method Room Air Weight Weight: 180 lb Body Mass Index (BMI) 25.1 Physical Exam Const alert, oriented x3 and no apparent distress General Appearance: cooperative and comfortable HEENT normocephalic Head and Scalp: atraumatic Eyes General Eye: normal appearance of both eyes Resp normal respiratory effort, normal air movement and clear to auscultation bilaterally Effort and Inspection: able to speak in complete sentences Cardio regular rate and regular rhythm GI soft to palpation and non-tender Back/Spine normal ROM Extremity normal capillary refill Extremity Narrative: Right leg and foot with +4 pitting edema. Left leg with compression and +2 edema. Pedal pulses palp. Negative homans sign. No calf discomfort. Skin Wound Narrative: Right posterior leg ulcer with non viable tissue present. A wound culture was obtained today.? A positive culture will necessitate antibiotic therapy. Sacral area is pink, dry. No open areas but there is pressure from sitting. Neuro oriented x3 Neuro Narrative: Patient shakes from his Parkinson's disease Psych mental status grossly normal, thought process normal and cooperative Debridement Note Debridement Note Wound debrided: Posterior leg ulcer and small right anterior ulcer Laterality: Right Wound Grade/Stage: Stage 3 Type of Debridement: Excisional debridement Anesthesia Used: 5% Lidocaine Gel Depth: Down to and including healthy tissue and in the subcutaneous layer Percentage of wound debrided: 100 Instrument Used: 5mm curette Tissue Removed: Non viable tissue and slough Severity: Fat Layer Exposed Amount of bleeding with debridement: Mild Bleeding Controlled with: Pressure and Compression and gauze Patient tolerated procedure: Patient tolerated procedure well Post-Debridement Measurements and Additional Note: Post-Debridement Measurements/Treatment - Nurse 1 - General Ulcer Assessment Start: 10/25/24 13:21 Freq: Status: Active Protocol: LOWEXIsaiah Activity Type Activity Date Activity User E-sign Co-sign Detail Recorded Client Recorded Date Recorded By Document 10/25/24 13:21 DS [id number] 10/25/24 13:28 DS 10/25/24 13:21 - Today's Visit Information Type of service Initial Visit Arrival Mode Walker, Wheelchair Transfer Assistance Manual Accompanied by , lisset Patient Identification Verified (Name & Yes ) Safety Precautions Fall Prevention Finger Stick Blood Sugar(mg/dl) (if 145 indicated): Blood Sugar Stated by Patient Height and Weight Height 5 ft 11 in Weight 180 lb Weight in Pounds 180.0 lbs Weight Measurement Method Estimated by Patient Body Mass Index (BMI) 25.1 BMI Classification Overweight BSA - Miky 2.02 Vital Signs Temperature (97.8 F-99.1 F) 97.5 F L Temperature Source Temporal Pulse Rate (60-100) 72 Pulse Location Monitor Respiratory Rate (12-18) 18 Respiratory rate source Observation Oxygen Delivery Method Room Air Blood Pressure (90/60-120/80) 176/80 H Blood Pressure Mean 112 Source Monitor Position Sitting Blood Pressure Location Right Arm History Since Last Visit- (Skip if this is Patient's initial visit) Left Footwear Regular Shoe Right Footwear Regular Shoe Pain Scale: 0-10 Numeric Is Patient Pain Free? No right ankle -Description Aching -Intensity 3 -Duration (hours) Chronic -Pain Aggravating Factors ADL's -Alleviating Factors/Interventions Will continue to monitor, Emotional Support Communication Assessment Preferred language Cameroonian Team Sports Sales Associate Required No Able to Read Yes Able to Write Yes Communication Tools None Caregiver Communication Skills No Impairment Impairment Right Hearing Abillity Normal Left Hearing Abillity Normal Visual Assistive Devices Glasses Teaching Assessment Barriers to Learning None Readiness To Learn Good Willingness to Engage in Self Management Med Activies Readiness to Engage in Self Management Med Activities Anxiety Level Calm Cooperation Cooperative Perception Coherent Interest in Health Problem Asks Questions Education Importance Acknowledges Need Does Patient Smoke tobacco or other No substances Smoking Status Never smoker Is Patient Diabetic Yes Functional Assessment Recent Decline in Ability to Perform Ambulation Culture/Uatsdin/Clinical Director Cultural/Uatsdin Needs that may affect No Treatment Plan WC - Nurse 1 - General Ulcer Measurement Start: 10/25/24 13:21 Freq: Status: Active Protocol: Activity Type Activity Date Activity User E-sign Co-sign Detail Recorded Client Recorded Date Recorded By Document 10/25/24 13:45 DS [id number] 10/25/24 14:11 DS 10/25/24 13:45 Wound Center Nurse 1 COCCYX -Current Size (cm) - Length 0.1 -Current Size (cm) - Width 0.1 -Current Size (cm) - Depth 0.1 -Total Square Cm 0.01 -Date of Last Picture (Recall this 10/25/24 field) -Photo Taken Yes -Texture (Ana-wound Skin Appearance) Assessed -Moisture (Ana-wound Skin Appearance) Assessed -Color (Ana-wound Skin Appearance) Not Assessed -Temperature (Ana-wound Skin No Abnormality Appearance) (Pt Warm) -Tenderness on Palpation (Ana-wound No Skin Appearance) -Ulcer Cleansing Soap and Water -Foul Odor after Cleansing No -Anesthetic Used 5% Lidocaine Gel RIGHT LE MEDIAL -Current Size (cm) - Length 0.5 -Current Size (cm) - Width 0.5 -Current Size (cm) - Depth 0.1 -Total Square Cm 0.25 -Date of Last Picture (Recall this 10/25/24 field) -Photo Taken Yes -Tunneling No -Undermining/Tunneling No -Circular Undermining No -Granulation Amt Medium (34-66%) -Granulation Quality [place] -Necrosis Amt Medium (34-66%) -Necrotic Tissue Type Adherent Slough -Texture (Ana-wound Skin Appearance) Assessed -Moisture (Ana-wound Skin Appearance) Assessed -Color (Ana-wound Skin Appearance) Assessed -Temperature (Ana-wound Skin No Abnormality Appearance) (Pt Warm) -Tenderness on Palpation (Ana-wound No Skin Appearance) -Ulcer Cleansing Soap and Water -Foul Odor after Cleansing No -Anesthetic Used 5% Lidocaine Gel RIGHT LE ANTERIOR -Current Size (cm) - Length 0.5 -Current Size (cm) - Width 0.4 -Current Size (cm) - Depth 0.1 -Total Square Cm 0.20 -Date of Last Picture (Recall this 10/25/24 field) -Photo Taken Yes -Tunneling No -Undermining/Tunneling No -Circular Undermining No -Wound Margin Distinct, Outline Attached -Granulation Amt Medium (34-66%) -Granulation Quality [place] -Necrosis Amt Medium (34-66%) -Necrotic Tissue Type Adherent Slough -Texture (Ana-wound Skin Appearance) Assessed -Moisture (Ana-wound Skin Appearance) Assessed -Color (Ana-wound Skin Appearance) Assessed -Temperature (Ana-wound Skin No Abnormality Appearance) (Pt Warm) -Tenderness on Palpation (Ana-wound No Skin Appearance) -Ulcer Cleansing Soap and Water -Foul Odor after Cleansing No -Anesthetic Used 5% Lidocaine Gel WC - Nurse 2 - General Ulcer CM Notes Start: 10/25/24 13:21 Freq: Status: Active Protocol: Activity Type Activity Date Activity User E-sign Co-sign Detail Recorded Client Recorded Date Recorded By Document 10/25/24 14:33 [id number] 10/25/24 14:37 10/25/24 14:33 Wound Center Nurse 2 COCCYX -Time 14:33 -Correct Patient Yes -Correct Side, Site, Position Yes RIGHT LE MEDIAL -Time 14:33 -Correct Patient Yes -Correct Side, Site, Position Yes -Correct Procedure Yes -Procedure Performed Yes -Type of Procedure Debridement -Clinical Debridement Subcutaneous -Tissue Removed Subcutaneous -Post Debridement (cm) - Length 1.2 -Post Debridement (cm) - Width 1.0 -Post Debridement (cm) - Depth 0.2 -Total Square (Post) (cm) 1.20 -Area of Debridement (cm) - Length 1.2 -Area of Debridement (cm) - Width 1.0 -Total Square (Area) (cm) 1.20 -Tunneling No -Undermining/Tunneling No -Circular Undermining No -Wound/Ulcer Outcome Not Healed -Ulcer Cleansing Rinsed/ Irrigated with Saline -Foul Odor after Cleansing No -Bioengineered Tissue No -Bleeding Controlled with Pressure -Treatment Response Procedure Tolerated Well -Debridement - Subq, 1st 20sq cm Yes RIGHT LE ANTERIOR -Time 14:35 -Correct Patient Yes -Correct Side, Site, Position Yes -Correct Procedure Yes -Procedure Performed Yes -Type of Procedure Debridement -Clinical Debridement Subcutaneous -Tissue Removed Subcutaneous -Post Debridement (cm) - Length 0.3 -Post Debridement (cm) - Width 0.3 -Post Debridement (cm) - Depth 0.1 -Total Square (Post) (cm) 0.09 -Area of Debridement (cm) - Length 0.3 -Area of Debridement (cm) - Width 0.3 -Total Square (Area) (cm) 0.09 -Tunneling No -Undermining/Tunneling No -Circular Undermining No -Wound/Ulcer Outcome Not Healed -Ulcer Cleansing Rinsed/ Irrigated with Saline -Foul Odor after Cleansing No -Bioengineered Tissue No -Bleeding Controlled with Silver Nitrate -Treatment Response Procedure Tolerated Well -Debridement - Subq, 1st 20sq cm No Pain Scale: 0-10 Numeric Is Patient Pain Free? Yes - Nurse 3 - General Ulcer D/C NN Start: 10/25/24 13:21 Freq: Status: Active Protocol: Activity Type Activity Date Activity User E-sign Co-sign Detail Recorded Client Recorded Date Recorded By Document 10/25/24 15:02 DL [id number] 10/25/24 15:23 DL 10/25/24 15:02 Wound Care Center Nurse 3 COCCYX -Ulcer Cleansing Rinsed/ Irrigated with Saline -Foul Odor after Cleansing No -Primary Dressing Covered/Secured with Dry Gauze, Secured with Tape -Wound Comment(s) A&D OINTMENT TO COCCYX AT HOME RIGHT LE MEDIAL -Ulcer Cleansing Rinsed/ Irrigated with Saline -Primary Dressing Applied Promogran Mellisa Matter -Primary Dressing Covered/Secured with Dry Gauze & Roll Gauze, Secured with Tape -Promogran Mellisa Matter 1 RIGHT LE ANTERIOR -Ulcer Cleansing Rinsed/ Irrigated with Saline -Foul Odor after Cleansing No -Other Dressing MELLISA -Primary Dressing Covered/Secured with Dry Gauze & Roll Gauze, Secured with Tape Treatment Response Procedure Tolerated Well Pain Scale: 0-10 Numeric Is Patient Pain Free? Yes WC - Visit Discharge Discharge Condition Stable Ambulatory Status Wheelchair Transportation daughter Charges/Coding Visit Charges Office Visits / Consults: [id number] OV L3 Est 20min (25 modifier) Procedures Integumentary [id number]: [id number] Oliva subq tissue 20 sq cm/< Assessment/Plan Assessment/Plan (1) Ulcer of right lower extremity with fat layer exposed: CODE(S): L97.912 - Non-pressure chronic ulcer of unspecified part of right lower leg with fat layer exposed (2) Diabetes: CODE(S): E11.9 - Type 2 diabetes mellitus without complications QUALIFIERS: Diabetes mellitus type: type 2 Diabetes mellitus complication status: with hyperglycemia (3) Edema: CODE(S): R60.9 - Edema, unspecified (4) Parkinson's disease: CODE(S): G20 - Parkinson's disease (5) Diabetic neuropathy: CODE(S): E11.40 - Type 2 diabetes mellitus with diabetic neuropathy, unspecified QUALIFIERS: Diabetes mellitus type: type 2 Diabetes mellitus complication detail: with other neurological complication Qualified Code(s): E11.49 - Type 2 diabetes mellitus with other diabetic neurological complication PLAN: Plan Patient evaluated at the wound healing center. Wound care to right posterior leg and right anterior leg ulcers will be mellisa daily covered with gauze. Wash the area with soap and water at the time of dressing changes. To the sacral area place barrier cream such as A&D ointment or Vaseline to help moisturize the area and protect skin. Compression - has tubigrip on left leg. JEAN wrap right leg until vascular studies obtained. A wound culture was obtained today of right posterior leg.? A positive culture will necessitate antibiotic therapy. Will order venous and arterial studies. Would like the venous studies to be done as soon as possible to assess leg swelling. Follow up one week. Will phone with we obtain wound cultures if need to treat. Call or come in sooner if develop any concerns.
--- NOTE | 2024-10-27 11:54 | WC ---
PHOTO 10/25/24 RIGHT LEG
--- NOTE | 2024-10-27 11:58 | WC ---
PHOTO 10/25/24 ANA
== END 2024-11-21 23:59 | disposition home or self-care (01) ==
LOC: WC 12:54
PROVIDERS: PCP Family Medicine Geriatric Medicine; Referring Provider Family Medicine Geriatric Medicine; Visit Provider Nurse Practitioner Family
DX: E11.622 Type 2 diabetes mellitus with other skin ulcer (principal); L97.812 Non-pressure chronic ulcer of other part of right lower leg with fat layer exposed; G20.A1 Parkinson's disease without dyskinesia, without mention of fluctuations; E11.65 Type 2 diabetes mellitus with hyperglycemia; E11.40 Type 2 diabetes mellitus with diabetic neuropathy, unspecified; E78.5 Hyperlipidemia, unspecified; I10 Essential (primary) hypertension; I25.10 Atherosclerotic heart disease of native coronary artery without angina pectoris; R60.9 Edema, unspecified; Z79.82 Long term (current) use of aspirin; Z79.84 Long term (current) use of oral hypoglycemic drugs; Z79.85 Long-term (current) use of injectable non-insulin antidiabetic drugs; Z79.02 Long term (current) use of antithrombotics/antiplatelets; Z79.890 Hormone replacement therapy; Z79.899 Other long term (current) drug therapy; Z95.1 Presence of aortocoronary bypass graft; Z95.5 Presence of coronary angioplasty implant and graft
CPT/HCPCS: 11042; 87070; 87075; 87077; 87186; 87205; 99213; G0463

== ENCOUNTER 2024-10-27 10:20 | Inpatient (IN) | payer MEDICARE, SELFPAY ==
[2020-03-14 14:48] VITALS: BMI 28.1
[2024-10-27] VITALS (20 sets, daily range): BP systolic 148–171; BP diastolic 62–90; PULSE 60–80; RESP 14–21; TEMP 36.6–37; O2SAT 94–99; BMI 25.8; BMI 24.3
--- NOTE | 2024-10-27 10:36 | ED.RN ---
Pt expressing that getting around is getting harder for him. He says that this has come about within the last week. Increased weakness, lower extremity edema, the ability to walk and get around is harder and harder. Pt concerned about CHF and SOB
--- NOTE | 2024-10-27 10:41 | EKG12_ITS ---
Test Reason : CP Blood Pressure : */* mmHG Vent. Rate : 78 BPM Atrial Rate : 78 BPM P-R Int : 216 ms QRS Dur : 100 ms QT Int : 382 ms P-R-T Axes : 103 50 59 degrees QTcB Int : 435 ms Sinus rhythm with 1st degree A-V block Otherwise normal ECG Confirmed by Garfield Thornton ([id number]), editorial director ERROL AIKEN ([id number]) on 10/30/2024 6:53:52 AM Referred By: Confirmed By: Garfield Thornton
--- NOTE | 2024-10-27 10:41 | RAD_ITS ---
STUDY: X-RAY CHEST REASON FOR EXAM: Male, 84 years old. Chest pain TECHNIQUE: Single AP portable view of the chest. COMPARISON: April 21, 2021 FINDINGS: The lungs are clear and expanded. There is no demonstrated pleural abnormality. Sternal cerclage wires and vascular clips are present from a prior sternotomy and coronary artery bypass graft procedure (CABG). Normal mediastinum and bailey. Normal visualized pulmonary arteries. Normal visualized aortic arch and descending thoracic aorta. There is demineralization of the osseous structures. There is degenerative change of the spine. Normal visualized ribs, clavicles, and shoulders. There is no demonstrated abnormality of the visualized soft tissue structures of the upper abdomen. RAD/Chest 1 View (Portable) IMPRESSION: Degenerative changes, as described above. No demonstrated acute cardiopulmonary process. Electronically Signed: Clint Freire MD at 11:00 EST ,
[2024-10-27 10:55] LABS: Absolute Lymphocyte Count 0.82 X10^3/uL (0.83-4.51); Absolute Neutrophil Count 4.3 X10^3/uL (2.0-7.7); Basophil# 0.04 X10^3/uL; Basophil% 0.7 % (0-1); Eosinophil# 0.13 X10^3/uL; Eosinophils% 2.2 % (0-5); Hematocrit 41.5 % (40-54); Hemoglobin 14.6 g/dL (13.0-16.5); Lymphocyte # 0.82 X10^3/ul (0.83-4.51); Lymphocyte % 14.1 % (19-41); Mean Corp Hgb Conc 35.2 g/dL (32-36); Mean Corpuscular Hgb 34.9 pg (27.0-32.0); Mean Corpuscular Volume 99.3 fL (80-94); Mean Platelet Vol. 9.6 fl (6.2-12.0); Monocyte# 0.54 X10^3/uL; Monocyte% 9.3 % (0-10); NRBC Flagged by Analyzer 0 % (0-5); Neutrophil # 4.27 X10^3/uL (2.7-7.7); Neutrophil % 73.4 % (47-70); Platelet Count 256 K/mm3 (150-450); RBC Distribution Width CV 11.9 % (11.6-14.6); RBC Distribution Width SD 43.4 fl (35.1-43.9); Red Blood Count 4.18 M/mm3 (4.6-6.2); White Blood Count 5.8 K/mm3 (4.4-11.0)
--- NOTE | 2024-10-27 11:18 | ED.VIS.CHEST ---
HPI History of Present Illness Chief Complaint: Chest Pain Narrative Narrative: Chief complaint and HPI: Shortness of breath, chest pain, generalized weakness. 84-year-old male with history of DM, CKD, HTN, HLD, Parkinson's disease, CAD, presents for evaluation of shortness of breath, chest pain, generalized weakness. Patient states that he has been having intermittent chest pain for the past 2 weeks. He states that he has been taking aspirin. He states he took a nitro yesterday with little relief. He states the past 4 days he has been having shortness of breath. He denies any fever, chills, URI symptoms, cough, abdominal pain, nausea, vomiting, dysuria. Patient states that he has had generalized weakness over the past several days to the point that it is difficult to ambulate. He states 2 months ago he had increased swelling of his bilateral lower extremities but has been seeing wound care and wearing compression socks and this has improved. He denies any recent surgery or travel. Review of systems: See HPI Medications: As listed on the chart Allergies: As listed on the chart PFSH: Per chart Vital signs: As listed on the chart. Reviewed. Physical exam: Gen: A&O x3, NAD Head: Normocephalic, atraumatic Eyes: No sclera icterus, conjunctiva clear, PERRL, EOMI ENT: Mildly dry mucous membranes Neck: Trachea midline, No JVD CV: Regular rhythm, regular rhythm, no murmurs, minimal peripheral edema Resp: Lungs CTA BL, no w/r/c GI: Abd soft, non-distended, non-tender, no r/r/g Musc: Moves all extremities, no deformity, generalized weakness, tremor from Parkinson's Skin: Warm, dry, small chronic wounds to the bilateral lower extremities-not infected Neuro: Alert, oriented, grossly intact, sensation intact Psych: Cooperative, appropriate mood and affect [facility] Medical History Diabetes GERD (gastroesophageal reflux disease) Cataract 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 heart disease of [place] coronary artery without angina pectoris Parkinson's disease Essential tremor CIDP (chronic inflammatory demyelinating polyneuropathy) Diabetic neuropathy HTN (hypertension) HLD (hyperlipidemia) Type II diabetes mellitus, uncontrolled History of chest pain Home Medications ?Medication ?Instructions ?Recorded ?Last Taken ?Type lisinopril 10 mg tablet 10 mg PO DAILY blood pressure 11/15/15 07/28/18 06:00 History metformin 1,000 mg tablet 1,000 mg PO BIDCM blood sugar 11/15/15 07/28/18 06:00 History tamsulosin 0.4 mg capsule 0.4 mg PO DAILY prostate 02/28/16 07/28/18 18:00 History cholecalciferol (vitamin D3) 125 5,000 unit PO MOWEFR supplement 06/15/18 07/27/18 18:00 History mcg (5,000 unit) capsule clopidogrel 75 mg tablet 75 mg PO DAILY Heart 07/20/18 07/27/18 12:00 History aspirin 81 mg tablet,delayed 81 mg PO DAILY@0800 HEART HEALTH 07/28/18 07/28/18 06:00 History release nitroglycerin 0.4 mg sublingual 0.4 mg PO PRN PRN CHEST PAIN 07/28/18 07/28/18 History tablet folic acid 800 mcg tablet 0.8 mg PO BID SUPPLMENT 06/17/19 Unknown History gabapentin 800 mg tablet 800 mg PO TID NERVE 06/17/19 Unknown History atorvastatin 80 mg tablet 80 mg PO QHS CHOLESTEROL 06/20/19 Unknown History blood-glucose meter (Accu-Chek #200 ea 05/03/20 Unknown Rx Bettina Plus Meter) magnesium oxide 400 mg (241.3 mg 800 mg PO DAILY SUPPLEMENT 01/21/21 Unknown History magnesium) tablet ranolazine 500 mg tablet,extended 500 mg PO BID . 04/21/21 Unknown History release,12 hr carbidopa 25 mg-levodopa 100 mg 1 tab translingual TID PARKINSONS 06/13/21 Unknown History disintegrating tablet levothyroxine 50 mcg tablet 50 mcg PO DAILY THYROID 06/13/21 Unknown History blood sugar diagnostic (Accu-Chek #200 ea 10/28/22 Unknown Rx Bettina Plus test strips) glimepiride 2 mg tablet 4 mg (2 x 2 mg) PO DAILY blood 05/07/23 Unknown Rx sugar #90 tabs Farxiga 5 mg tablet (dapagliflozin 5 mg PO DAILY DM #90 tabs 09/29/24 Unknown Rx propanediol) cephalexin 500 mg capsule 500 mg PO Q6H 7 days #28 caps 10/27/24 Unknown Rx Allergy/AdvReac Type Severity Reaction Status Date / Time Beta-Blockers Allergy Severe ANGIOEDEMA Verified 10/27/24 10:34 (Beta-Adrenergic Bloc Family History (Reviewed 10/27/24 @ 12:55 by Rita Calixto PIN INSERTER REGULATOR, PIN INSERTER REGULATOR-C) Mother Alzheimer's dementia Diabetes Father CAD (coronary artery disease) Heart disease Brother CAD (coronary artery disease) Daughter Arthritis Surgical History (Reviewed 10/27/24 @ 12:55 by Rita Calixto PIN INSERTER REGULATOR, PIN INSERTER REGULATOR-C) 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) History of left heart catheterization Stented coronary artery (07/29/18) Social History (Reviewed 10/27/24 @ 12:55 by Rita Calixto PIN INSERTER REGULATOR, PIN INSERTER REGULATOR-C) Smoking Status: Never smoker second hand exposure: No alcohol intake: never substance use type: does not use caffeine: No what type of physical activity do you participate in: none frequency: does not exercise EXAM Physical Exam Const Vital Signs: 10/27/24 10:26 10/27/24 10:32 10/27/24 10:41 Temperature 97.8 F Temperature Source Oral Pulse Rate 80 Respiratory Rate 16 Respiratory Effort Normal Non-Labored Respiratory Pattern Normal Blood Pressure 171/90 H Blood Pressure Mean 117 Pulse Ox 99 94 Oxygen Delivery Method Room Air Room Air 10/27/24 11:20 10/27/24 11:30 10/27/24 11:45 Temperature Temperature Source Pulse Rate 71 69 65 Respiratory Rate 19 H 17 15 Respiratory Effort Respiratory Pattern Blood Pressure 165/80 H 155/62 H Blood Pressure Mean 103 89 Pulse Ox 94 95 Oxygen Delivery Method 10/27/24 12:00 10/27/24 13:00 10/27/24 13:15 Temperature Temperature Source Pulse Rate 60 62 73 Respiratory Rate 14 16 21 H Respiratory Effort Respiratory Pattern Blood Pressure 150/67 H 164/69 H Blood Pressure Mean 90 98 Pulse Ox 97 99 99 Oxygen Delivery Method 10/27/24 13:30 10/27/24 13:45 10/27/24 14:00 Temperature Temperature Source Pulse Rate 61 61 71 Respiratory Rate 14 14 20 H Respiratory Effort Respiratory Pattern Blood Pressure 149/78 H Blood Pressure Mean 85 Pulse Ox 98 97 98 Oxygen Delivery Method 10/27/24 14:15 10/27/24 14:30 10/27/24 14:45 Temperature Temperature Source Pulse Rate 70 77 75 Respiratory Rate 17 20 H 21 H Respiratory Effort Respiratory Pattern Blood Pressure Blood Pressure Mean Pulse Ox 98 99 96 Oxygen Delivery Method 10/27/24 15:00 10/27/24 16:00 Temperature Temperature Source Pulse Rate 71 76 Respiratory Rate 20 H 19 H Respiratory Effort Respiratory Pattern Blood Pressure 158/73 H 148/77 H Blood Pressure Mean 99 100 Pulse Ox 96 95 Oxygen Delivery Method MDM MDM MDM Narrative Medical decision making narrative: 84-year-old male with history of DM, CKD, HTN, HLD, Parkinson's disease, CAD, presents for evaluation of shortness of breath, chest pain, generalized weakness. On chart review, patient has a history of coronary artery bypass. His last cardiac cath was in 2018 in which he did not undergo PCI due to being high risk. He had stenosis of the RCA. His last echocardiogram was in 2017 demonstrating EF of 52%. His most recent stress test was in 2018 which was unremarkable. Differential diagnosis includes but is not limited to viral illness, pneumonia, electrolyte abnormality, UTI, ACS, PE. NS bolus, aspirin ordered. Laboratory workup ordered including chest x-ray. EKG and chest x-ray reviewed see below. CBC without leukocytosis or anemia. D-dimer mildly elevated at 0.50 however this is within normal limits given patient's age. BMP shows mild hyponatremia at 133. Patient is at his baseline CKD with a creatinine of 1.46. BNP mildly elevated at 133.8. TSH unremarkable. Magnesium unremarkable. Troponin unremarkable x 2. UA positive for UTI. Urine culture obtained and Rocephin ordered. This may explain patient's generalized weakness. On reevaluation, patient is still having left-sided chest pain. Given that his pain has been intermittent for 2 weeks without elevated troponins, I suspect less likely ACS however given his cardiac history I did reach out to cardiology Dr. Thornton. Patient was discussed. He agrees not likely cardiac in nature. Follow-up outpatient in the office. Patient was ambulated in the emergency department and and patient states that he is at his baseline ambulation therefore patient will be discharged home. Patient was updated of all his results and the plan. He confirmed understanding. He will be written for Keflex for his UTI given he is low risk for any resistance and has not been on recent antibiotics. However, shortly after discharge was placed. Patient was unable to ambulate out of the emergency department. He was requiring wheelchair. Given that this is different from his baseline, patient will warrant admission for his generalized weakness. Patient confirmed understanding. Patient was discussed with Dr. Romero who accepted admission. EKG: Interpreted by me/EM physician: EKG shows normal sinus rhythm with first-degree AV block. No acute ischemic changes. Heart rate 78. Diagnostic: Interpreted by me/EM physician: Chest x-ray without pneumonia, effusion, cardiomegaly, pneumothorax Impression: 1. UTI 2. Generalized weakness, likely secondary to #1 versus worsening Parkinson's disease 3. Chest pain 4. CKD Lab Data Labs: Laboratory Results - last 24 hr 10/27/24 10/27/24 10/27/24 10:45 11:53 12:40 WBC 5.8 RBC 4.18 L Hgb 14.6 Hct 41.5 MCV 99.3 H MCH 34.9 H MCHC 35.2 RDW Std Deviation 43.4 RDW Coeff of Hubert 11.9 Plt Count 256 MPV 9.6 Immature Gran % (Auto) 0.300 Neut % (Auto) 73.4 H Lymph % (Auto) 14.1 L [place] % (Auto) 9.3 Eos % (Auto) 2.2 Baso % (Auto) 0.7 Absolute Neuts (auto) 4.3 Absolute Lymphs (auto) 0.82 L Nucleated RBC % 0 D-Dimer Quant (PE/DVT) 0.50 H Sodium 133 L Potassium 4.4 Chloride 100 Carbon Dioxide 27.0 Anion Gap 7 BUN 25 H Creatinine 1.46 H Estim Creat Clear Calc 41.55 Est GFR (MDRD) Af Amer 59 L Est GFR (MDRD) Non-Af 49 L BUN/Creatinine Ratio 17.1 Glucose 158 H Calcium 9.2 Magnesium 2.2 Troponin I High Sens 8 B-Natriuretic Peptide 133.8 H TSH 2.580 Urine Color Straw Urine Clarity Clear Urine pH 7.0 Ur Specific [place] 1.010 Urine Protein 30 H Urine Glucose (UA) 1000 H Urine Ketones 5 H Urine Occult Blood Negative Urine Nitrite Negative Urine Bilirubin Negative Urine Urobilinogen Normal Ur Leukocyte Esterase 100 H Urine RBC 0 SEEN Urine WBC 10-25 SEEN Ur Squamous Epith Cells 0 SEEN Urine Bacteria 1+ Urine Mucus 0 SEEN 10/27/24 13:16 WBC RBC Hgb Hct MCV MCH MCHC RDW Std Deviation RDW Coeff of Hubert Plt Count MPV Immature Gran % (Auto) Neut % (Auto) Lymph % (Auto) [place] % (Auto) Eos % (Auto) Baso % (Auto) Absolute Neuts (auto) Absolute Lymphs (auto) Nucleated RBC % D-Dimer Quant (PE/DVT) Sodium Potassium Chloride Carbon Dioxide Anion Gap BUN Creatinine Estim Creat Clear Calc Est GFR (MDRD) Af Amer Est GFR (MDRD) Non-Af BUN/Creatinine Ratio Glucose Calcium Magnesium Troponin I High Sens 9 B-Natriuretic Peptide TSH Urine Color Urine Clarity Urine pH Ur Specific [place] Urine Protein Urine Glucose (UA) Urine Ketones Urine Occult Blood Urine Nitrite Urine Bilirubin Urine Urobilinogen Ur Leukocyte Esterase Urine RBC Urine WBC Ur Squamous Epith Cells Urine Bacteria Urine Mucus Radiography Diagnostic Testing: Clinical Impression(s) from Imaging Studies Chest X-Ray 10/27/24 10:41 IMPRESSION: Degenerative changes, as described above. No demonstrated acute cardiopulmonary process. Electronically Signed: Clint Freire MD at 11:00 EST Reading Location ID and State: [address] [place] [address] , Service support , Discharge Plan Triage Chief Complaint: Chest Pain ED Provider: Velasquez Morales Dx/Rx/DC Orders Clinical Impression: Acute UTI, Chest pain Primary Care Provider: Felix Montelongo Disposition Disposition: Home, Self Care Discharge Date/Time: 10/27/24 17:05
[2024-10-27 11:19] LABS: Anion Gap 7 (5-15); BUN 25 mg/dL (7-18); BUN/Creat Ratio 17.1 RATIO (10-20); Calcium,Total 9.2 mg/dL (8.5-10.1); Chloride 100 mmol/L (98-107); Creatinine, Serum 1.46 mg/dL (0.70-1.30); EST Glomerular Filtration Rate 49 mL/min (>60); Est Glom Filt Rate - Afr Amer 59 mL/min (>60); Estimated Creatinine Clearance 41.55 ml/min; Glucose 158 mg/dL (74-106); Potassium 4.4 mmol/L (3.5-5.1); Sodium Level 133 mmol/L (136-145); Troponin-I HS (w/2H Reflex) 8 pg/mL (3.0-78.0)
[2024-10-27] MEDS: 0.9% Normal Saline (1000mL) 1,000 ML 999 ML IV (11:32)
[2024-10-27 12:41] LABS: Magnesium 2.2 mg/dL (1.6-2.6)
[2024-10-27 12:44] LABS: Mucous, Urine 0 SEEN /hpf (<or=2+); Red Blood Cells-Urine 0 SEEN /hpf (0-5); Squamous Epithelial Cells - UA 0 SEEN /hpf (0-5)
[2024-10-27 12:46] LABS: Color, Urine Straw (Yellow); Glucose, Dipstick 1000 mg/dl (Normal); Ketone-Dipstick 5 mg/dl (Negative); Leukocyte Esterase-Dipstick 100 /ul (Negative); Nitrite-Dipstick Negative (Negative); Occult Blood-Urine Negative /ul (Negative); Protein-Dipstick 30 mg/dl (Negative); Urine Bilirubin Dipstick Negative (Negative); Urine Clarity Clear (Clear); Urine Urobilinogen Normal (Normal)
[2024-10-27 12:50] LABS: Reflex Troponin-HS? (from REC) Y
[2024-10-27 12:55] LABS: Bacteria 1+ /hpf (None Seen); White Blood Cells 10-25 SEEN /hpf (0-5)
[2024-10-27 13:44] LABS: Troponin-I HS 9 pg/mL (3.0-78.0)
[2024-10-27 13:48] LABS: BNP,B-Type NATRIURETIC PEPTIDE 133.8 pg/mL (0-100)
[2024-10-27] MEDS: Ceftriaxone 1 GM/50 ML BAG IV (14:37)
--- NOTE | 2024-10-27 16:33 | HP.PCM.HOS_ITS ---
HPI - General General Date of Admission: 10/27/24 Date of Service: 10/27/24 Chief Complaint: Weakness, CP, SOB HPI Narrative FLEX KLINE, is a 84-year-old male history of CKD, Parkinson's, CAD, BPH, diabetes, hypothyroidism presented [facility] ED 10/27/2024 with shortness of breath, chest pain, generalized weakness. He has been having intermittent chest pain for 2 weeks and has been taking aspirin. Took a nitro yesterday with a little relief. Also has been having shortness of breath for the past 4 days and generalized weakness to the point that is difficult to ambulate. In the ED patient had a D-dimer that was normal when adjusted for his age, BNP of only 133 and negative troponin x 2. Was found to have a UTI however given his weakness family was worried about taking him home so hospitalist contacted for admission. Patient evaluated with family member at bedside. Patient reports he has had sometimes left-sided sometimes right-sided sometimes both chest pain that at times is like a pressure and happens at random over the past couple of weeks, for the past few days he has had some shortness of breath he also has some lower extremity weakness and was worried about his kidneys or his heart prompting him to come to the ED. Has also been generally weak increasing over the past couple of weeks and did note some increased urinary frequency. Patient denies fevers or chills, no cough. Regards to his chest pain he does not note anything that makes it better or worse per se, had taken some aspirin over the past 1 to 2 weeks which he thinks may have been slightly helpful but does not notice any change with exertion or rest. [facility] Medical History (Reviewed 10/27/24 @ 12:55 by Rita Calixto AUTOMOTIVE ELECTRICIAN HELPER, AUTOMOTIVE ELECTRICIAN HELPER-C) Diabetes GERD (gastroesophageal reflux disease) Cataract 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 heart disease of [place] coronary artery without angina pectoris Parkinson's disease Essential tremor CIDP (chronic inflammatory demyelinating polyneuropathy) Diabetic neuropathy HTN (hypertension) HLD (hyperlipidemia) Type II diabetes mellitus, uncontrolled History of chest pain Home Medications ?Medication ?Instructions ?Recorded ?Last Taken ?Type lisinopril 10 mg tablet 10 mg PO DAILY blood pressure 11/15/15 07/28/18 06:00 History metformin 1,000 mg tablet 1,000 mg PO BIDCM blood sugar 11/15/15 07/28/18 06:00 History tamsulosin 0.4 mg capsule 0.4 mg PO DAILY prostate 02/28/16 07/28/18 18:00 History cholecalciferol (vitamin D3) 125 5,000 unit PO MOWEFR supplement 06/15/18 07/27/18 18:00 History mcg (5,000 unit) capsule clopidogrel 75 mg tablet 75 mg PO DAILY Heart 07/20/18 07/27/18 12:00 History aspirin 81 mg tablet,delayed 81 mg PO DAILY@0800 HEART HEALTH 07/28/18 07/28/18 06:00 History release nitroglycerin 0.4 mg sublingual 0.4 mg PO PRN PRN CHEST PAIN 07/28/18 07/28/18 History tablet folic acid 800 mcg tablet 0.8 mg PO BID SUPPLMENT 06/17/19 Unknown History gabapentin 800 mg tablet 800 mg PO TID NERVE 06/17/19 Unknown History atorvastatin 80 mg tablet 80 mg PO QHS CHOLESTEROL 06/20/19 Unknown History blood-glucose meter (Accu-Chek #200 ea 05/03/20 Unknown Rx Bettina Plus Meter) magnesium oxide 400 mg (241.3 mg 800 mg PO DAILY SUPPLEMENT 01/21/21 Unknown History magnesium) tablet ranolazine 500 mg tablet,extended 500 mg PO BID . 04/21/21 Unknown History release,12 hr carbidopa 25 mg-levodopa 100 mg 1 tab translingual TID PARKINSONS 06/13/21 Unknown History disintegrating tablet levothyroxine 50 mcg tablet 50 mcg PO DAILY THYROID 06/13/21 Unknown History blood sugar diagnostic (Accu-Chek #200 ea 10/28/22 Unknown Rx Bettina Plus test strips) glimepiride 2 mg tablet 4 mg (2 x 2 mg) PO DAILY blood 05/07/23 Unknown Rx sugar #90 tabs Farxiga 5 mg tablet (dapagliflozin 5 mg PO DAILY DM #90 tabs 09/29/24 Unknown Rx propanediol) cephalexin 500 mg capsule 500 mg PO Q6H 7 days #28 caps 10/27/24 Unknown Rx Allergy/AdvReac Type Severity Reaction Status Date / Time Beta-Blockers Allergy Severe ANGIOEDEMA Verified 10/27/24 10:34 (Beta-Adrenergic Bloc Family History Mother Alzheimer's dementia Diabetes Father CAD (coronary artery disease) Heart disease Brother CAD (coronary artery disease) Daughter Arthritis Surgical History 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) History of left heart catheterization Stented coronary artery (07/29/18) Social History Smoking Status: Never smoker second hand exposure: No alcohol intake: never substance use type: does not use caffeine: No what type of physical activity do you participate in: none frequency: does not exercise ROS ROS Narrative General: Denies fever/chills HENT: Denies headache, denies stuffy nose, denies sore throat EYES: Denies changes in vision Resp: Denies cough, has had some shortness of breath over the past few days Cardiac: Random bouts of chest pain sometimes left-sided sometimes both GI: Denies abdominal pain, denies changes in bowel, denies nausea/vomiting : Some urinary frequency Extremity: Swelling in lower extremities which is new MSK: Feels generally weak Neuro: Denies any numbness/tingling Heme: Denies any bleeding or bruising Skin: Does have wound on leg following at wound center Psychiatric: No complaints voiced Vital Signs Vital Signs Vital Signs: 10/27/24 10:26 10/27/24 10:32 10/27/24 10:41 Temperature 97.8 F Temperature Source Oral Pulse Rate 80 Respiratory Rate 16 Respiratory Effort Normal Non-Labored Respiratory Pattern Normal Blood Pressure 171/90 H Blood Pressure Mean 117 Pulse Ox 99 94 Oxygen Delivery Method Room Air Room Air 10/27/24 11:20 10/27/24 11:30 10/27/24 11:45 Temperature Temperature Source Pulse Rate 71 69 65 Respiratory Rate 19 H 17 15 Respiratory Effort Respiratory Pattern Blood Pressure 165/80 H 155/62 H Blood Pressure Mean 103 89 Pulse Ox 94 95 Oxygen Delivery Method 10/27/24 12:00 10/27/24 13:00 10/27/24 13:15 Temperature Temperature Source Pulse Rate 60 62 73 Respiratory Rate 14 16 21 H Respiratory Effort Respiratory Pattern Blood Pressure 150/67 H 164/69 H Blood Pressure Mean 90 98 Pulse Ox 97 99 99 Oxygen Delivery Method 10/27/24 13:30 10/27/24 13:45 10/27/24 14:00 Temperature Temperature Source Pulse Rate 61 61 71 Respiratory Rate 14 14 20 H Respiratory Effort Respiratory Pattern Blood Pressure 149/78 H Blood Pressure Mean 85 Pulse Ox 98 97 98 Oxygen Delivery Method 10/27/24 14:15 10/27/24 14:30 10/27/24 14:45 Temperature Temperature Source Pulse Rate 70 77 75 Respiratory Rate 17 20 H 21 H Respiratory Effort Respiratory Pattern Blood Pressure Blood Pressure Mean Pulse Ox 98 99 96 Oxygen Delivery Method 10/27/24 15:00 Temperature Temperature Source Pulse Rate 71 Respiratory Rate 20 H Respiratory Effort Respiratory Pattern Blood Pressure 158/73 H Blood Pressure Mean 99 Pulse Ox 96 Oxygen Delivery Method Weight Weight: 84.1 kg Body Mass Index (BMI) 25.8 Physical Exam Narrative General: Alert, no apparent distress HEENT: Atraumatic Eyes: Anicteric, normal conjunctiva, extraocular movements grossly intact Neck: Supple Respiratory: Clear to auscultation bilaterally, normal respiratory effort Cardiovascular: Regular rate and rhythm GI: Soft, nontender, nondistended Extremities: Some lower extremity edema with trace pitting Musculoskeletal: Moving all extremities Neuro: Has rolling tremor especially in right hand Skin: Small area covered on right barnes Psych: Appears anxious Results Lab / Micro Data 10/27/24 10:45 10/27/24 10:45 Labs: Laboratory Results - last 24 hr 10/27/24 10:45: WBC 5.8, RBC 4.18 L, Hgb 14.6, Hct 41.5, MCV 99.3 H, MCH 34.9 H, MCHC 35.2, RDW Std Deviation 43.4, RDW Coeff of Hubert 11.9, Plt Count 256, MPV 9.6, Immature Gran % (Auto) 0.300, Neut % (Auto) 73.4 H, Lymph % (Auto) 14.1 L, [place] % (Auto) 9.3, Eos % (Auto) 2.2, Baso % (Auto) 0.7, Absolute Neuts (auto) 4.3, Absolute Lymphs (auto) 0.82 L, Nucleated RBC % 0, Sodium 133 L, Potassium 4.4, Chloride 100, Carbon Dioxide 27.0, Anion Gap 7, BUN 25 H, Creatinine 1.46 H , Estim Creat Clear Calc 41.55, Est GFR (MDRD) Af Amer 59 L, Est GFR (MDRD) Non- Af 49 L, BUN/Creatinine Ratio 17.1, Glucose 158 H, Calcium 9.2, Troponin I High Sens 8 10/27/24 11:53: D-Dimer Quant (PE/DVT) 0.50 H, Magnesium 2.2, B-Natriuretic Peptide 133.8 H, TSH 2.580 10/27/24 12:40: Urine Color Straw, Urine Clarity Clear, Urine pH 7.0, Ur Specific [place] 1.010, Urine Protein 30 H, Urine Glucose (UA) 1000 H, Urine Ketones 5 H, Urine Occult Blood Negative, Urine Nitrite Negative, Urine Bilirubin Negative, Urine Urobilinogen Normal, Ur Leukocyte Esterase 100 H, Urine RBC 0 SEEN, Urine WBC 10-25 SEEN, Ur Squamous Epith Cells 0 SEEN, Urine Bacteria 1+, Urine Mucus 0 SEEN 10/27/24 13:16: Troponin I High Sens 9 Micro: Microbiology 10/27/24 11:25 Mucosa - Nose SARS-CoV-2, Influenza & RSV (PCR) - Final Imaging Radiology Impression Chest X-Ray 10/27/24 10:41 IMPRESSION: Degenerative changes, as described above. No demonstrated acute cardiopulmonary process. Electronically Signed: Clint Freire MD at 11:00 EST Reading Location ID and State: [address] [place] [address] , Service support , Assessment & Plan Assessment/Plan (1) Acute UTI: PLAN: Plan #Suspect UTI -Patient with generalized weakness and failure to thrive in setting of UA suggestive of UTI and urinary frequency -Urine culture -Continue Rocephin # Generalized weakness -Suspect secondary to #1 -Treat empirically with antibiotics -PT/OT -Case management # Chest pain -Patient with chest pain that comes on at random and is sometimes on 1 side with stress sometimes on both -Troponins normal x 2 -Low suspicion of ACS and per ED physician it was discussed with cardiology on- call who did not feel that this was cardiac or needed acute cardiac workup at this time -Will obtain echocardiogram however given the symptoms in addition to the shortness of breath and leg swelling, if anything abnormal is positive consider cardiology consult and transferring patient to PCU -Continue home medications -Patient already on high-dose statin and DAPT and Ranexa # History of coronary artery disease -With history of CABG and PCI -Continue home medications # Parkinson's -Continue Sinemet # CKD stage III a -Appears to be at baseline -Avoid nephrotoxic agents -Daily BMPs #Type 2 diabetes mellitus -Glucose checks and sliding scale insulin #Hypothyroidism -Continue Synthroid #Chronic BPH with obstruction -Continue home medications #DVT ppx: Lovenox subcu Sulma Romero MD Charges/Coding Visit Charges Inpatient E&M: 22350 Init Hosp L2
--- NOTE | 2024-10-27 17:22 | ECHOCS_ITS ---
Reason For Study: Chest Pain Procedure This was a 2D Doppler, Color Flow transthoracic echocardiogram. The study was technically difficult. Contrast injection was performed. Exam performed portable in patient room. Left Ventricle Normal left ventricle. The estimated ejection fraction is 55-???60 %. Right Ventricle Normal right ventricle. Normal systolic function. Atria Normal left atrium. Normal right atrium. Mitral Valve The mitral valve is structurally normal. No prolapse or stenosis seen. Tricuspid Valve Normal tricuspid valve. Aortic Valve Trisinus/trileaflet aortic valve. Pulmonic Valve The pulmonic valve is not well visualized. Great Vessels Normal aortic root. Pericardium/Pleural No pericardial effusion. Medication Diluted definity 2ml given slow IV push to enhance endocardial definition. MMode/2D Measurements & Calculations LVIDd: 4.1 cm IVSd: 1.2 cm Ao root diam: 4.2 cm LVIDs: 2.6 cm LVPWd: 1.1 cm RVDd: 3.8 cm FS: 37.2 % LAV(MOD-bp): 47.7 ml LVAd ap4: 31.9 cm2 SV(MOD-sp4): 64.3 ml LAV(MOD-bp) Indexed: 24.0 ml/m2 LVLd ap4: 8.0 cm SI(MOD-sp4): 32.3 ml/m2 LAV(MOD-sp2): 50.8 ml EDV(MOD-sp4): 105.4 ml LAV(MOD-sp4): 42.5 ml EDV(sp4-el): 108.6 ml LVAs ap4: 18.5 cm2 LVLs ap4: 6.8 cm ESV(MOD-sp4): 41.1 ml ESV(sp4-el): 42.6 ml EF(MOD-sp4): 61.0 % EF(sp4-el): 60.7 % SV(sp4-el): 65.9 ml LA A4 area: 15.6 cm2 LA dimension(2D): 3.8 cm RA A4 area: 11.5 cm2 TAPSE: 1.4 cm Time Measurements MV dec time: 0.35 sec Doppler Measurements & Calculations MV E max akil: 50.7 cm/sec Lat Peak E' Akil: 12.0 cm/sec Med Peak E' Akil: 8.2 cm/sec MV A max akil: 82.1 cm/sec E/E' lat: 4.2 E/E' med: 6.2 MV E/A: 0.62 MV V2 max: 94.9 cm/sec MV P1/2t max akil: 59.2 cm/sec Ao V2 max: 81.8 cm/sec MV max P.6 mmHg MV P1/2t: 123.0 msec Ao max P.7 mmHg MV V2 mean: 45.2 cm/sec MV dec slope: 140.9 cm/sec2 Ao V2 mean: 59.1 cm/sec MV mean P.99 mmHg MVA(P1/2t): 1.8 cm2 Ao mean P.6 mmHg MV V2 VTI: 22.4 cm Ao V2 VTI: 19.2 cm AV (velocity ratio): 0.76 LV V1 max: 75.0 cm/sec PA V2 max: 80.2 cm/sec LV V1 max P.2 mmHg LV V1 mean P.3 mmHg LV V1 mean: 54.4 cm/sec LV V1 VTI: 14.6 cm ECHO/Echo Complete W/ Contrast Interpretation Summary The estimated ejection fraction is 55-60% Normal LV systolic function No significant valvular abnormality No pericardial effusion noted Contrast echo using Definity. Grade 2 diastolic dysfunction. In comparison to previous echocardiogram no significant abnormality noted. Ordering Physician: Sulma Romero Performed By: Velasquez Cox RCS
[2024-10-27 18:18] LABS: Bedside Glucose 100 mg/dL (74-106)
[2024-10-27] MEDS: Gabapentin 800 MG Tablet PO (18:36)
[2024-10-27] MEDS: Atorvastatin Calcium 80 MG Tablet PO (22:01)
[2024-10-27] MEDS: Ranolazine 500 MG Tablet PO (22:01)
[2024-10-27] MEDS: Insulin Lispro 100 UNIT/ML INSULN.PEN SC (22:01)
[2024-10-28 00:04] VITALS: PULSE 64
[2024-10-28 00:36] LABS: Bedside Glucose 204 mg/dL (74-106)
[2024-10-28 03:23] VITALS: BMI 24.5
[2024-10-28 04:30] VITALS: BP 144/66; PULSE 65; RESP 16; TEMP 36.6; O2SAT 94
[2024-10-28 05:40] LABS: Absolute Lymphocyte Count 1.02 X10^3/uL (0.83-4.51); Absolute Neutrophil Count 3.9 X10^3/uL (2.0-7.7); Basophil# 0.03 X10^3/uL; Basophil% 0.5 % (0-1); Eosinophil# 0.18 X10^3/uL; Hemoglobin 13.5 g/dL (13.0-16.5); Lymphocyte # 1.02 X10^3/ul (0.83-4.51); Lymphocyte % 17.2 % (19-41); Mean Corp Hgb Conc 33.8 g/dL (32-36); Mean Corpuscular Hgb 33.4 pg (27.0-32.0); Mean Platelet Vol. 9.4 fl (6.2-12.0); Monocyte# 0.82 X10^3/uL; Monocyte% 13.9 % (0-10); NRBC Flagged by Analyzer 0 % (0-5); Neutrophil # 3.85 X10^3/uL (2.7-7.7); Neutrophil % 65.1 % (47-70); Platelet Count 251 K/mm3 (150-450); RBC Distribution Width CV 11.8 % (11.6-14.6); Red Blood Count 4.04 M/mm3 (4.6-6.2); White Blood Count 5.9 K/mm3 (4.4-11.0)
[2024-10-28 06:10] LABS: ALB/GLOB Ratio 1.1 RATIO (0.9-2.4); AST(SGOT) 25 U/L (15-37); Alanine Aminotransfer ALT/SGPT 24 U/L (16-61); Albumin, Serum 3.6 g/dL (3.2-5.0); Alkaline Phosphatase 68 U/L (45-117); Anion Gap 8 (5-15); BUN 20 mg/dL (7-18); BUN/Creat Ratio 16.7 RATIO (10-20); Calcium,Total 8.7 mg/dL (8.5-10.1); Chloride 105 mmol/L (98-107); EST Glomerular Filtration Rate 62 mL/min (>60); Est Glom Filt Rate - Afr Amer 74 mL/min (>60); Estimated Creatinine Clearance 50.55 ml/min; Globulin 3.3 g/dL (2.2-4.2); Glucose 130 mg/dL (74-106); Potassium 3.9 mmol/L (3.5-5.1); Protein, Total 6.9 g/dL (6.4-8.2); Sodium Level 136 mmol/L (136-145)
[2024-10-28] MEDS: Gabapentin 800 MG Tablet PO ×3 (06:35→21:33)
[2024-10-28] MEDS: Carbidopa/Levodopa 25/100 Tablet PO ×3 (06:36→17:04)
[2024-10-28] MEDS: Levothyroxine 50 MCG Tablet PO (06:36)
[2024-10-28 07:52] LABS: Bedside Glucose 130 mg/dL (74-106)
[2024-10-28] MEDS: Folic Acid 1 MG Tablet PO ×2 (09:52→17:05)
[2024-10-28] MEDS: Aspirin E.C. 81 MG Tablet PO (09:53)
[2024-10-28] MEDS: Ranolazine 500 MG Tablet PO ×2 (09:53→21:33)
[2024-10-28] MEDS: Enoxaparin 40 MG/0.4 ML Syringe SC (09:53)
[2024-10-28] MEDS: Tamsulosin HCl 0.4 MG Capsule PO (09:53)
[2024-10-28] MEDS: Clopidogrel Bisulfate 75 MG Tablet PO (09:53)
[2024-10-28] MEDS: Lisinopril 10 MG Tablet PO (09:54)
[2024-10-28 10:30] VITALS: BP 142/60; PULSE 72; RESP 16; TEMP 36.4; O2SAT 97
[2024-10-28] MEDS: Ceftriaxone 1 GM/50 ML BAG IV (12:18)
[2024-10-28] MEDS: Insulin Lispro 100 UNIT/ML INSULN.PEN SC ×3 (12:22→21:33)
--- NOTE | 2024-10-28 13:07 | PCM.PN.HOSP ---
Reason for Visit Reason for Visit: Diagnoses Urinary tract infection, site not specified (10/27/24) Subjective Subjective Patient was seen and examined today, his daughter and were in the room at the time my examination. Patient was brought in due to increasing weakness at home, the daughter verified that this has been a ongoing problem with the patient not something that it has been present over the last several days. Patient is being treated for urinary tract infection, he will also be seen by PT and OT. Objective Data Objective Data Vital Signs: Vital Signs Temp Pulse Resp BP Pulse Ox O2 Del Method 97.9 F 65 16 144/66 H 94 Room Air 10/28/24 04:30 10/28/24 04:30 10/28/24 04:30 10/28/24 04:30 10/28/24 04:30 10/28/24 10:07 Oxygen Delivery Method Room Air Weight: 79.3 kg Body Mass Index (BMI) 24.5 Intake & Output: Intake and Output for Last 24 Hours 10/26/24 10/27/24 10/28/24 23:59 23:59 23:59 Intake Total 1050 / 1050 Output Total 300 / 500 1950 / 1950 Balance 750 / 550 -1950 / -1950 Lab / Micro Data 10/28/24 04:50 10/28/24 04:50 Labs: Laboratory Results - last 24 hr 10/27/24 11:53: B-Natriuretic Peptide 133.8 H 10/27/24 13:16: Troponin I High Sens 9 10/27/24 17:56: POC Glucose 100 10/27/24 21:58: POC Glucose 204 H 10/28/24 04:50: WBC 5.9, RBC 4.04 L, Hgb 13.5, Hct 40.0, MCV 99.0 H, MCH 33.4 H, MCHC 33.8, RDW Std Deviation 43.0, RDW Coeff of Hubert 11.8, Plt Count 251, MPV 9.4, Immature Gran % (Auto) 0.300, Neut % (Auto) 65.1, Lymph % (Auto) 17.2 L, [place] % (Auto) 13.9 H, Eos % (Auto) 3.0, Baso % (Auto) 0.5, Absolute Neuts (auto) 3.9, Absolute Lymphs (auto) 1.02, Nucleated RBC % 0, Sodium 136, Potassium 3.9, Chloride 105, Carbon Dioxide 23.0, Anion Gap 8, BUN 20 H, Creatinine 1.20, Estim Creat Clear Calc 50.55, Est GFR (MDRD) Af Amer 74, Est GFR (MDRD) Non-Af 62, BUN/Creatinine Ratio 16.7, Glucose 130 H, Calcium 8.7, Total Bilirubin 1.00, AST 25, ALT 24, Alkaline Phosphatase 68, Total Protein 6.9, Albumin 3.6, Globulin 3.3, Albumin/Globulin Ratio 1.1, TSH 4.070 H 10/28/24 06:34: POC Glucose 130 H Micro: Microbiology 10/27/24 12:40 Urine, Clean Catch Urine Culture - Final Mixed Gram Pos & Gram Neg Org 10/27/24 11:25 Mucosa - Nose SARS-CoV-2, Influenza & RSV (PCR) - Final Physical Exam Const alert, oriented x3 and no apparent distress General Appearance: cooperative, well kempt and well developed Orientation / Consciousness: awake, oriented to person, oriented to place and oriented to time HEENT normocephalic, head/scalp atraumatic and moist oral mucous membranes Eyes PERRL, EOMs intact bilaterally and conjunctivae normal Neck supple, no JVD, thyroid normal and no carotid bruits General: trachea midline Resp normal respiratory effort, no retractions, no use of accessory muscles and clear to auscultation bilaterally Auscultation: Negative for rales, rhonchi or wheezes Cardio regular rate, regular rhythm, S1 normal heart sound, S2 normal heart sound, no murmurs, no rub and no gallops GI normal to inspection, nondistended, normoactive bowel sounds, soft to palpation, non-tender and non-distended Extremity no clubbing, cyanosis or edema Skin no rashes or lesions noted General Skin Exam: no breakdown Neuro oriented x3, CN's II-XII intact bilaterally, moves all extremities, no focal motor deficits and no sensory deficits noted Neuro Narrative: Patient had a tremor in his leg and right arm during the time of my examination, he had evidence of mild cognitive impairment Sensorium / Orientation: awake and alert Psych Psych Narrative: Mild cognitive impairment Assessment & Plan Assessment/Plan (1) Acute UTI: PLAN: Plan 1. Acute cystitis-patient is receiving IV Rocephin, await cultures #2 acute on chronic debility-patient will be seen by PT and OT, patient's family would like the patient to go to an extended care facility for short-term rehab services. #3 coronary artery disease-patient appears stable at this time #4 Parkinson's disease-patient is currently on Sinemet #5 chronic kidney disease stage IIIa secondary to type 2 diabetes-complicates care, management, recovery, and prognosis #6 type 2 diabetes-patient is having fingerstick blood sugars checked, sliding scale insulin will be administered as needed #7 hypothyroidism-patient is on Synthroid Total clinical time spent by myself addressing the patient's medical issues, reviewing all the data, and collaborating with patient's care team: 35 minutes Charges/Coding Visit Charges Inpatient E&M: 33848 Subs Hosp L2
--- NOTE | 2024-10-28 13:32 | CASEMGMT ---
Addendum entered by Ernestina To 10/28/24 14:26: LINSEY ADAMSON provided list of local SNF covered by insurance provided to LINSEY ADAMSON by TANESHA. Pt first choice is [facility]. Notified TANESHA. Addendum entered by Ernestina To 10/28/24 13:46: LINSEY ADAMSON notified TANESHA pt choice is to go to SNF. Original Note: LINSEY ADAMSON Assessment: Face to Face with pt for initial transition planning/care coordination assessment. LINSEY ADAMSON introduced self and role at [facility], pt voices understanding and consents to assessment. Pt is A&O x4 and answers all questions appropriately at this time. Pt sitting in chair at bedside, daughter and in room with pt. Pt agreeable to discussing DC planning with family present. Care providers, pharmacy, and demographics verified/updated. Strata: 2 Admitting Dx: Weakness and UTI PCP: Jayda Specialists: CardiologyShelton; NeurologistDenise Preferred Pharmacy: [facility] Insurance: [employer] [facility] Prescription Benefit: yes LNOK: , Destini; Daughter, Yocasta Living Arrangements: Pt lives with in a 2 story home but lives on main level. Pt has 6-8 steps to enter. ADLs: Pt requires assistance with ADLs and IADLs. Transportation: Pt provides transportation. DME: Walker, cane, wheelchair HHC/SNF: [facility] using [facility] services for SN, PT, and OT. Pt family states they would like pt to go to short term SNF at time of dc. Pt states no further concerns/needs. CM to follow. Advised pt to ask CM if any further question/concerns/needs arise, voices understanding. Pt Goal: SNF Plan: [facility] CM
--- NOTE | 2024-10-28 14:26 | CASEMGMT ---
RN CM in to discuss CAPONE form with patient. RN CM explained CAPONE form, patient voiced understanding. Pt refused to sign form, RN made copy and filed in chart. Pt provided with a copy of CAPONE form. Patient had no further questions or concerns at this time.
--- NOTE | 2024-10-28 15:13 | CASEMGMT ---
Social Work Referral made to [facility] via [facility] to follow up on Wednesday. DIDIER Jesus
[2024-10-28 16:34] LABS: Bedside Glucose 191 mg/dL (74-106)
[2024-10-28 20:00] VITALS: PULSE 67
[2024-10-28 21:15] VITALS: BP 112/62; PULSE 66; RESP 18; TEMP 36.7; O2SAT 96
[2024-10-28] MEDS: Atorvastatin Calcium 80 MG Tablet PO (21:33)
[2024-10-29 01:02] LABS: Bedside Glucose 328 mg/dL (74-106)
[2024-10-29 02:00] VITALS: PULSE 61
[2024-10-29 03:37] LABS: Bedside Glucose 198 mg/dL (74-106)
[2024-10-29 03:45] VITALS: BP 142/86; PULSE 72; RESP 16; TEMP 37.1; O2SAT 96
[2024-10-29 06:00] VITALS: BMI 24.4
[2024-10-29] MEDS: Insulin Lispro 100 UNIT/ML INSULN.PEN SC ×4 (06:14→22:54)
[2024-10-29] MEDS: Levothyroxine 50 MCG Tablet PO (06:14)
[2024-10-29] MEDS: Carbidopa/Levodopa 25/100 Tablet PO ×3 (06:14→18:03)
[2024-10-29] MEDS: Gabapentin 800 MG Tablet PO ×3 (06:14→22:53)
[2024-10-29 07:14] LABS: Bedside Glucose 161 mg/dL (74-106)
[2024-10-29 08:00] VITALS: BP 115/56; PULSE 66; RESP 16; TEMP 37.2; O2SAT 94
[2024-10-29] MEDS: Folic Acid 1 MG Tablet PO ×2 (08:17→18:03)
[2024-10-29] MEDS: Tamsulosin HCl 0.4 MG Capsule PO (08:17)
[2024-10-29] MEDS: Clopidogrel Bisulfate 75 MG Tablet PO (08:18)
[2024-10-29] MEDS: Enoxaparin 40 MG/0.4 ML Syringe SC (08:18)
[2024-10-29] MEDS: Aspirin E.C. 81 MG Tablet PO (08:18)
[2024-10-29] MEDS: Lisinopril 10 MG Tablet PO (08:19)
[2024-10-29] MEDS: Ranolazine 500 MG Tablet PO ×2 (08:19→22:53)
[2024-10-29] MEDS: Aspirin 325 MG Tablet 650 MG PO (09:00)
[2024-10-29 09:05] LABS: Absolute Lymphocyte Count 0.93 X10^3/uL (0.83-4.51); Absolute Neutrophil Count 3.8 X10^3/uL (2.0-7.7); Basophil# 0.04 X10^3/uL; Basophil% 0.7 % (0-1); Eosinophils% 3.5 % (0-5); Hematocrit 40.5 % (40-54); Hemoglobin 13.6 g/dL (13.0-16.5); Lymphocyte # 0.93 X10^3/ul (0.83-4.51); Lymphocyte % 16.2 % (19-41); Mean Corp Hgb Conc 33.6 g/dL (32-36); Mean Corpuscular Hgb 33.8 pg (27.0-32.0); Mean Corpuscular Volume 100.7 fL (80-94); Mean Platelet Vol. 9.2 fl (6.2-12.0); Monocyte# 0.72 X10^3/uL; Monocyte% 12.5 % (0-10); NRBC Flagged by Analyzer 0 % (0-5); Neutrophil # 3.84 X10^3/uL (2.7-7.7); Neutrophil % 66.9 % (47-70); Platelet Count 230 K/mm3 (150-450); RBC Distribution Width CV 11.9 % (11.6-14.6); RBC Distribution Width SD 44.6 fl (35.1-43.9); Red Blood Count 4.02 M/mm3 (4.6-6.2); White Blood Count 5.7 K/mm3 (4.4-11.0)
[2024-10-29 09:07] LABS: Bedside Glucose 189 mg/dL (74-106)
[2024-10-29 10:03] LABS: ALB/GLOB Ratio 1.2 RATIO (0.9-2.4); AST(SGOT) 22 U/L (15-37); Alanine Aminotransfer ALT/SGPT 15 U/L (16-61); Albumin, Serum 3.5 g/dL (3.2-5.0); Alkaline Phosphatase 64 U/L (45-117); Anion Gap 7 (5-15); BUN 37 mg/dL (7-18); BUN/Creat Ratio 23.6 RATIO (10-20); Calcium,Total 8.9 mg/dL (8.5-10.1); Chloride 105 mmol/L (98-107); Creatinine, Serum 1.57 mg/dL (0.70-1.30); EST Glomerular Filtration Rate 45 mL/min (>60); Est Glom Filt Rate - Afr Amer 55 mL/min (>60); Estimated Creatinine Clearance 38.64 ml/min; Globulin 2.9 g/dL (2.2-4.2); Glucose 212 mg/dL (74-106); Potassium 4.4 mmol/L (3.5-5.1); Protein, Total 6.4 g/dL (6.4-8.2); Sodium Level 138 mmol/L (136-145)
[2024-10-29 10:25] VITALS: O2SAT 96
[2024-10-29] MEDS: Ceftriaxone 1 GM/50 ML BAG IV (11:41)
[2024-10-29] MEDS: 0.9% Normal Saline (1000mL) 1,000 ML 100 ML IV ×2 (12:55→22:53)
[2024-10-29 13:14] LABS: Bedside Glucose 214 mg/dL (74-106)
--- NOTE | 2024-10-29 14:20 | PN.HOSP_ITS ---
Reason for Visit Reason for Visit: Diagnoses Urinary tract infection, site not specified (10/27/24) Subjective Subjective Patient was seen and examined today, family was concerned that he was not acting right, nursing did not notice anything abnormal, patient was able to carry on conversation with nursing. I donna labs on the patient today they appeared unremarkable except for a creatinine of 1.57 and glucose of 212. Patient requests aspirin which she takes for chest pain at home. Patient's echocardiogram showed a normal ejection fraction and no significant valvular heart disease. Patient's urine culture showed mixed organisms. Objective Data Objective Data Vital Signs: Vital Signs Temp Pulse Resp BP Pulse Ox O2 Del Method 98.9 F 66 16 115/56 L 96 Room Air 10/29/24 08:00 10/29/24 08:00 10/29/24 08:00 10/29/24 08:00 10/29/24 10:25 10/29/24 10:25 Oxygen Delivery Method Room Air Weight: 79.2 kg Body Mass Index (BMI) 24.4 Intake & Output: Intake and Output for Last 24 Hours 10/27/24 10/28/24 10/29/24 23:59 23:59 23:59 Intake Total 1050 / 1050 1136 / 1136 50 / 50 Output Total 300 / 500 3050 / 3450 700 / 700 Balance 750 / 550 -1914 / -2314 -650 / -650 Lab / Micro Data 10/29/24 08:52 10/29/24 08:52 Labs: Laboratory Results - last 24 hr 10/28/24 12:22: POC Glucose 191 H 10/28/24 16:47: POC Glucose 198 H 10/28/24 21:21: POC Glucose 328 H 10/29/24 06:02: POC Glucose 161 H 10/29/24 08:26: POC Glucose 189 H 10/29/24 08:52: WBC 5.7, RBC 4.02 L, Hgb 13.6, Hct 40.5, MCV 100.7 H, MCH 33.8 H , MCHC 33.6, RDW Std Deviation 44.6 H, RDW Coeff of Hubert 11.9, Plt Count 230, MPV 9.2, Immature Gran % (Auto) 0.200, Neut % (Auto) 66.9, Lymph % (Auto) 16.2 L, M quita % (Auto) 12.5 H, Eos % (Auto) 3.5, Baso % (Auto) 0.7, Absolute Neuts (auto) 3.8, Absolute Lymphs (auto) 0.93, Nucleated RBC % 0, Sodium 138, Potassium 4.4, Chloride 105, Carbon Dioxide 26.0, Anion Gap 7, BUN 37 H, Creatinine 1.57 H, Estim Creat Clear Calc 38.64, Est GFR (MDRD) Af Amer 55 L, Est GFR (MDRD) Non-Af 45 L, BUN/Creatinine Ratio 23.6 H, Glucose 212 H, Calcium 8.9, Total Bilirubin 0.60, AST 22, ALT 15 L, Alkaline Phosphatase 64, Total Protein 6.4, Albumin 3.5, Globulin 2.9, Albumin/Globulin Ratio 1.2 10/29/24 12:56: POC Glucose 214 H Micro: Microbiology 10/27/24 12:40 Urine, Clean Catch Urine Culture - Final Mixed Gram Pos & Gram Neg Org 10/27/24 11:25 Mucosa - Nose SARS-CoV-2, Influenza & RSV (PCR) - Final Radiography Diagnostic Testing: Radiology Impression Echocardiogram 10/27/24 17:22 Interpretation Summary The estimated ejection fraction is 55-60% Normal LV systolic function No significant valvular abnormality No pericardial effusion noted Contrast echo using Definity. Grade 2 diastolic dysfunction. In comparison to previous echocardiogram no significant abnormality noted. Ordering Physician: Sulma Romero Performed By: Velasquez Cox RCS Physical Exam Narrative alert, oriented x3 and no apparent distress General Appearance: cooperative, well kempt and well developed Orientation / Consciousness: awake, oriented to person, oriented to place and oriented to time HEENT normocephalic, head/scalp atraumatic and moist oral mucous membranes Eyes PERRL, EOMs intact bilaterally and conjunctivae normal Neck supple, no JVD, thyroid normal and no carotid bruits General: trachea midline Resp normal respiratory effort, no retractions, no use of accessory muscles and clear to auscultation bilaterally Auscultation: Negative for rales, rhonchi or wheezes Cardio regular rate, regular rhythm, S1 normal heart sound, S2 normal heart sound, no murmurs, no rub and no gallops GI normal to inspection, nondistended, normoactive bowel sounds, soft to palpation, non-tender and non-distended Extremity no clubbing, cyanosis or edema Skin no rashes or lesions noted General Skin Exam: no breakdown Neuro oriented x3, CN's II-XII intact bilaterally, moves all extremities, no focal motor deficits and no sensory deficits noted Neuro Narrative: Patient a generalized tremor during the time of my examination, he had evidence of mild cognitive impairment, speech is hard to understand at times Sensorium / Orientation: awake and alert Psych Psych Narrative: Mild cognitive impairment Assessment & Plan Assessment/Plan (1) Acute UTI: PLAN: Plan 1. Acute cystitis-patient will be changed from IV Rocephin to p.o. medication for acute cystitis #2 acute on chronic debility-patient will be seen by PT and OT, patient's family would like the patient to go to an extended care facility for short-term rehab services. #3 coronary artery disease-patient appears stable at this time, patient does have intermittent chest pain, according to the catheter report dated 07/29/2018 patient has severe mid RCA calcification making a PCI high risk-it was noted the patient may always have some degree of chest pain given his microvessel and noncorrectable CAD. #4 Parkinson's disease-patient is currently on Sinemet #5 chronic kidney disease stage IIIa secondary to type 2 diabetes-complicates care, management, recovery, and prognosis #6 type 2 diabetes-patient is having fingerstick blood sugars checked, sliding scale insulin will be administered as needed #7 hypothyroidism-patient is on Synthroid Total clinical time spent by myself addressing the patient's medical issues, reviewing all the data, and collaborating with patient's care team: 35 minutes Charges/Coding Visit Charges Inpatient E&M: 62400 Subs Hosp L2
[2024-10-29 20:35] VITALS: PULSE 61
[2024-10-29 22:37] VITALS: BP 117/59; PULSE 60; RESP 16; TEMP 37.1; O2SAT 94
[2024-10-29] MEDS: Atorvastatin Calcium 80 MG Tablet PO (22:53)
[2024-10-29 23:31] LABS: Bedside Glucose 255 mg/dL (74-106)
[2024-10-30 00:33] LABS: Bedside Glucose 188 mg/dL (74-106)
[2024-10-30 02:00] VITALS: PULSE 60
[2024-10-30 03:56] VITALS: BP 132/86; PULSE 68; RESP 16; TEMP 36.8; O2SAT 96
[2024-10-30 06:00] VITALS: BMI 24.4
[2024-10-30] MEDS: 0.9% Saline Lock 10 ML Syringe IV (06:42)
[2024-10-30] MEDS: Carbidopa/Levodopa 25/100 Tablet PO ×3 (06:43→16:43)
[2024-10-30] MEDS: Gabapentin 800 MG Tablet PO ×3 (06:43→21:10)
[2024-10-30] MEDS: Levothyroxine 50 MCG Tablet PO (06:43)
[2024-10-30] MEDS: Insulin Lispro 100 UNIT/ML INSULN.PEN SC ×4 (06:48→21:09)
[2024-10-30 07:12] LABS: Bedside Glucose 177 mg/dL (74-106)
--- NOTE | 2024-10-30 08:49 | PN.HOSP_ITS ---
Reason for Visit Reason for Visit: Diagnoses Urinary tract infection, site not specified (10/27/24) Subjective Subjective Feels well. No new complaints. Objective Data Objective Data Vital Signs: Vital Signs Temp Pulse Resp BP Pulse Ox O2 Del Method 36.8 C 68 16 132/86 H 96 Room Air 10/30/24 03:56 10/30/24 03:56 10/30/24 03:56 10/30/24 03:56 10/30/24 03:56 10/30/24 03:56 Oxygen Delivery Method Room Air Weight: 79.2 kg Body Mass Index (BMI) 24.4 Intake & Output: Intake and Output for Last 24 Hours 10/28/24 10/29/24 10/30/24 23:59 23:59 23:59 Intake Total 1136 / 1136 1276.67 / 1276.67 925 / 925 Output Total 3050 / 3450 1050 / 1050 1450 / 1450 Balance -1914 / -2314 226.67 / 226.67 -525 / -525 Lab / Micro Data 10/29/24 08:52 10/29/24 08:52 Labs: Laboratory Results - last 24 hr 10/29/24 08:26: POC Glucose 189 H 10/29/24 08:52: WBC 5.7, RBC 4.02 L, Hgb 13.6, Hct 40.5, MCV 100.7 H, MCH 33.8 H , MCHC 33.6, RDW Std Deviation 44.6 H, RDW Coeff of Hubert 11.9, Plt Count 230, MPV 9.2, Immature Gran % (Auto) 0.200, Neut % (Auto) 66.9, Lymph % (Auto) 16.2 L, M quita % (Auto) 12.5 H, Eos % (Auto) 3.5, Baso % (Auto) 0.7, Absolute Neuts (auto) 3.8, Absolute Lymphs (auto) 0.93, Nucleated RBC % 0, Sodium 138, Potassium 4.4, Chloride 105, Carbon Dioxide 26.0, Anion Gap 7, BUN 37 H, Creatinine 1.57 H, Estim Creat Clear Calc 38.64, Est GFR (MDRD) Af Amer 55 L, Est GFR (MDRD) Non-Af 45 L, BUN/Creatinine Ratio 23.6 H, Glucose 212 H, Calcium 8.9, Total Bilirubin 0.60, AST 22, ALT 15 L, Alkaline Phosphatase 64, Total Protein 6.4, Albumin 3.5, Globulin 2.9, Albumin/Globulin Ratio 1.2 10/29/24 12:56: POC Glucose 214 H 10/29/24 17:59: POC Glucose 188 H 10/29/24 22:51: POC Glucose 255 H 10/30/24 06:47: POC Glucose 177 H Micro: Microbiology 10/27/24 12:40 Urine, Clean Catch Urine Culture - Final Mixed Gram Pos & Gram Neg Org 10/27/24 11:25 Mucosa - Nose SARS-CoV-2, Influenza & RSV (PCR) - Final Physical Exam Const alert and no apparent distress HEENT head/scalp atraumatic and moist oral mucous membranes Resp normal respiratory effort and no retractions Resp Narrative: course BS bilaterally. Cardio regular rate, regular rhythm, S1 normal heart sound and S2 normal heart sound GI normal to inspection, nondistended, normoactive bowel sounds, soft to palpation, non-tender and non-distended Extremity normal to inspection and no clubbing, cyanosis or edema Neuro Sensorium / Orientation: awake and alert Assessment & Plan Assessment/Plan (1) Acute UTI: PLAN: Plan Acute cystitis- * patient will be changed from IV Rocephin to p.o. cephalexin for acute cystitis. UCx grew out mixed organisms. acute on chronic debility * patient will be seen by PT and OT, patient's family would like the patient to go to an extended care facility for short-term rehab services. Chronic conditions: * coronary artery disease-patient appears stable at this time, patient does have intermittent chest pain, according to the catheter report dated 07/29/2018 patient has severe mid RCA calcification making a PCI high risk-it was noted the patient may always have some degree of chest pain given his microvessel and noncorrectable CAD. * Parkinson's disease-patient is currently on Sinemet * chronic kidney disease stage IIIa secondary to type 2 diabetes-complicates care, management, recovery, and prognosis * type 2 diabetes-patient is having fingerstick blood sugars checked, sliding scale insulin will be administered as needed * hypothyroidism-patient is on Synthroid VTE prophylaxis: LMWH Disposition: to [facility] pending insurance authorization. Charges/Coding Visit Charges Inpatient E&M: 70430 Subs Hosp L2
[2024-10-30] MEDS: Aspirin E.C. 81 MG Tablet PO (09:01)
[2024-10-30] MEDS: Folic Acid 1 MG Tablet PO ×2 (09:01→16:42)
[2024-10-30] MEDS: Tamsulosin HCl 0.4 MG Capsule PO (09:02)
[2024-10-30] MEDS: Ranolazine 500 MG Tablet PO ×2 (09:02→21:10)
[2024-10-30] MEDS: Clopidogrel Bisulfate 75 MG Tablet PO (09:02)
[2024-10-30] MEDS: Lisinopril 10 MG Tablet PO (09:03)
[2024-10-30] MEDS: Enoxaparin 40 MG/0.4 ML Syringe SC (09:03)
[2024-10-30] MEDS: Cephalexin 500 MG Capsule PO ×2 (09:07→21:10)
[2024-10-30 09:50] VITALS: BP 123/74; PULSE 80; RESP 16; TEMP 36.6; O2SAT 96
--- NOTE | 2024-10-30 10:32 | CASEMGMT ---
Discharge Planning Updates sent to [facility] for review. Kirsty Epperson DC Planning Asst.
[2024-10-30] MEDS: Polyethylene Glycol 3350 17 GM PACKET PO (11:22)
[2024-10-30] MEDS: Bisacodyl 5 MG Tablet 10 MG PO (11:28)
[2024-10-30 11:54] LABS: Bedside Glucose 197 mg/dL (74-106)
--- NOTE | 2024-10-30 12:16 | CASEMGMT ---
Discharge Planning [facility] has accepted and will submit for precert. SW updated. Kirsty Epperson DC Planning Asst.
[2024-10-30] MEDS: Aspirin 325 MG Tablet PO ×2 (14:55→21:10)
[2024-10-30 15:03] VITALS: BP 104/51; PULSE 72; RESP 16; TEMP 37.1; O2SAT 97
[2024-10-30 17:05] LABS: Bedside Glucose 256 mg/dL (74-106)
[2024-10-30 20:10] VITALS: BP 110/50; PULSE 63; RESP 16; TEMP 36.6; O2SAT 96
[2024-10-30] MEDS: Atorvastatin Calcium 80 MG Tablet PO (21:10)
[2024-10-30 22:12] LABS: Bedside Glucose 216 mg/dL (74-106)
[2024-10-31 02:51] VITALS: BP 115/81; PULSE 94; RESP 16; TEMP 36.5; O2SAT 96
[2024-10-31 05:45] VITALS: BMI 24.5
[2024-10-31] MEDS: Levothyroxine 50 MCG Tablet PO (06:14)
[2024-10-31] MEDS: Gabapentin 800 MG Tablet PO ×3 (06:14→21:14)
[2024-10-31] MEDS: Carbidopa/Levodopa 25/100 Tablet PO ×3 (06:14→17:11)
[2024-10-31] MEDS: Insulin Lispro 100 UNIT/ML INSULN.PEN SC ×2 (06:15→11:17)
[2024-10-31 07:03] LABS: Bedside Glucose 297 mg/dL (74-106)
[2024-10-31 07:50] VITALS: BP 144/57; PULSE 65; RESP 18; TEMP 36.4; O2SAT 95
[2024-10-31] MEDS: Aspirin E.C. 81 MG Tablet PO (07:51)
[2024-10-31] MEDS: Cephalexin 500 MG Capsule PO ×2 (07:52→21:15)
[2024-10-31] MEDS: Folic Acid 1 MG Tablet PO ×2 (07:52→17:11)
[2024-10-31] MEDS: Menthol/Lanolin/Calamine/Znox 113 GM Tube 1 APPLIC TOPICAL ×2 (07:52→21:14)
[2024-10-31] MEDS: Lisinopril 10 MG Tablet PO (07:52)
[2024-10-31] MEDS: Enoxaparin 40 MG/0.4 ML Syringe SC (07:52)
[2024-10-31] MEDS: Clopidogrel Bisulfate 75 MG Tablet PO (07:52)
[2024-10-31] MEDS: Ranolazine 500 MG Tablet PO ×2 (07:53→21:15)
[2024-10-31] MEDS: Tamsulosin HCl 0.4 MG Capsule PO (07:53)
--- NOTE | 2024-10-31 08:05 | PCM.PN.HOSP ---
Reason for Visit Reason for Visit: Diagnoses Urinary tract infection, site not specified (10/27/24) Subjective Subjective No new events. Objective Data Objective Data Vital Signs: Vital Signs Temp Pulse Resp BP Pulse Ox O2 Del Method 36.5 C L 94 16 115/81 H 96 Room Air 10/31/24 02:51 10/31/24 02:51 10/31/24 02:51 10/31/24 02:51 10/31/24 02:51 10/31/24 02:51 Oxygen Delivery Method Room Air Weight: 79.7 kg Body Mass Index (BMI) 24.5 Intake & Output: Intake and Output for Last 24 Hours 10/29/24 10/30/24 10/31/24 23:59 23:59 23:59 Intake Total 1276.67 / 1276.67 3175 / 3175 Output Total 1050 / 1050 2300 / 2600 1500 / 1500 Balance 226.67 / 226.67 875 / 575 -1500 / -1500 Lab / Micro Data 10/29/24 08:52 10/29/24 08:52 Labs: Laboratory Results - last 24 hr 10/30/24 11:18: POC Glucose 197 H 10/30/24 16:40: POC Glucose 256 H 10/30/24 21:08: POC Glucose 216 H 10/31/24 06:13: POC Glucose 297 H Micro: Microbiology 10/27/24 12:40 Urine, Clean Catch Urine Culture - Final Mixed Gram Pos & Gram Neg Org 10/27/24 11:25 Mucosa - Nose SARS-CoV-2, Influenza & RSV (PCR) - Final Physical Exam Const alert and no apparent distress HEENT head/scalp atraumatic Resp normal respiratory effort and no retractions Extremity normal to inspection Neuro moves all extremities Neuro Narrative: tremulous in UE Sensorium / Orientation: awake and alert Speech: Negative for speech normal Psych affect normal Assessment & Plan Assessment/Plan (1) Acute UTI: PLAN: Plan Acute cystitis- patient will be changed from IV Rocephin to p.o. cephalexin for acute cystitis. UCx grew out mixed organisms. acute on chronic debility patient will be seen by PT and OT, patient's family would like the patient to go to an extended care facility for short-term rehab services. Chronic conditions: coronary artery disease-patient appears stable at this time, patient does have intermittent chest pain, according to the catheter report dated 07/29/2018 patient has severe mid RCA calcification making a PCI high risk-it was noted the patient may always have some degree of chest pain given his microvessel and noncorrectable CAD. Parkinson's disease-patient is currently on Sinemet chronic kidney disease stage IIIa secondary to type 2 diabetes-complicates care, management, recovery, and prognosis type 2 diabetes-uncontrolled. on SSI. resume farxiga, glimeperide and metformin. hypothyroidism-patient is on Synthroid VTE prophylaxis: LMWH Disposition: to [facility] pending insurance authorization. Advance care planning: Spent an additional 30 minutes where I spoke with the patient and his family. Talked about aggressiveness of care and recommended the following: No CPR no intubation (with the exception of temporary intubation for procedures and surgeries (as well as no feeding tubes. I explained to him that I did not recommend these procedures as is a chance for seeing at recovery would be severely compromised given his Parkinson's. He continue to state that he has a strong heart. I told him that this is not a matter of him having a strong heart but with him being at risk for pneumonia and so forth he could be at risk for arrhythmias that could be lead to such events. He was not willing to change his CODE STATUS at this time but I encouraged him to talk with his family about changing so he will remain full code at this time. Charges/Coding Visit Charges Inpatient E&M: 33415 Subs Hosp L2 Procedures Hospitalists Procedures: 39601 Advncd Care Plan 30 Min
[2024-10-31] MEDS: Empagliflozin 10 MG Tablet PO (09:02)
[2024-10-31] MEDS: metFORMIN HCl 1,000 MG Tablet 1000 MG PO ×2 (09:02→17:11)
[2024-10-31] MEDS: Glimepiride 4 MG Tablet PO (09:02)
--- NOTE | 2024-10-31 10:06 | CASEMGMT ---
Social Work SW spoke w/pt's daughter. She [facility]ert had [facility]. SW let her know will call [facility], as they are to start precert, but they did tell us yesterday precert was started. SW explained she may have spoken w/someone at insurance who does not know how to access this information. SW reassured daughter, and explained will call. SW called [facility], message left. SW also sent a message in [facility]. SW let daughter know messages were left. SW will continue to follow. DIDIER Jesus
[2024-10-31 11:43] LABS: Bedside Glucose 207 mg/dL (74-106)
[2024-10-31 13:20] VITALS: BP 112/50; PULSE 75; RESP 18; TEMP 36.7; O2SAT 98
[2024-10-31 17:31] LABS: Bedside Glucose 136 mg/dL (74-106)
[2024-10-31 18:00] VITALS: BP 139/63; PULSE 96; RESP 18; TEMP 35.9; O2SAT 94
[2024-10-31 20:10] VITALS: BP 142/69; PULSE 92; RESP 16; TEMP 36.6; O2SAT 94
[2024-10-31] MEDS: Atorvastatin Calcium 80 MG Tablet PO (21:15)
[2024-10-31] MEDS: Aspirin 325 MG Tablet PO (21:20)
[2024-10-31 22:03] LABS: Bedside Glucose 125 mg/dL (74-106)
[2024-11-01 02:10] VITALS: BP 136/80; PULSE 82; RESP 16; TEMP 36.8; O2SAT 99
[2024-11-01 06:00] VITALS: BMI 24.3
[2024-11-01] MEDS: Levothyroxine 50 MCG Tablet PO (06:04)
[2024-11-01] MEDS: Carbidopa/Levodopa 25/100 Tablet PO ×3 (06:04→16:16)
[2024-11-01] MEDS: Gabapentin 800 MG Tablet PO ×2 (06:04→15:13)
[2024-11-01 06:25] LABS: Bedside Glucose 125 mg/dL (74-106)
--- NOTE | 2024-11-01 07:20 | PN.HOSP_ITS ---
Reason for Visit Reason for Visit: Diagnoses Urinary tract infection, site not specified (10/27/24) Subjective Subjective Complaining of muscle cramps and wants his magnesium ordered. Objective Data Objective Data Vital Signs: Vital Signs Temp Pulse Resp BP Pulse Ox O2 Del Method 36.8 C 82 16 136/80 H 99 Room Air 11/01/24 02:10 11/01/24 02:10 11/01/24 02:10 11/01/24 02:10 11/01/24 02:10 11/01/24 02:10 Oxygen Delivery Method Room Air Weight: 79 kg Body Mass Index (BMI) 24.3 Intake & Output: Intake and Output for Last 24 Hours 10/30/24 10/31/24 11/01/24 23:59 23:59 23:59 Intake Total 3175 / 3175 Output Total 2300 / 2600 2300 / 2600 800 / 800 Balance 875 / 575 -2300 / -2600 -800 / -800 Lab / Micro Data 10/29/24 08:52 10/29/24 08:52 Labs: Laboratory Results - last 24 hr 10/31/24 11:16: POC Glucose 207 H 10/31/24 17:09: POC Glucose 136 H 10/31/24 21:13: POC Glucose 125 H 11/01/24 06:03: POC Glucose 125 H Micro: Microbiology 10/27/24 12:40 Urine, Clean Catch Urine Culture - Final Mixed Gram Pos & Gram Neg Org 10/27/24 11:25 Mucosa - Nose SARS-CoV-2, Influenza & RSV (PCR) - Final Physical Exam Const alert and no apparent distress Constitutional Narrative: up in bed eating breakfast. HEENT head/scalp atraumatic Resp normal respiratory effort and no retractions Neuro Sensorium / Orientation: awake and alert Assessment & Plan Assessment/Plan (1) Acute UTI: PLAN: Plan Acute cystitis- * patient will be changed from IV Rocephin to p.o. cephalexin for acute cystitis. UCx grew out mixed organisms. acute on chronic debility * patient will be seen by PT and OT, patient's family would like the patient to go to an extended care facility for short-term rehab services. Chronic conditions: * coronary artery disease-patient appears stable at this time, patient does have intermittent chest pain, according to the catheter report dated 07/29/2018 patient has severe mid RCA calcification making a PCI high risk-it was noted the patient may always have some degree of chest pain given his microvessel and noncorrectable CAD. 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 on SSI. resume farxiga, glimeperide and metformin. * hypothyroidism-patient is on Synthroid VTE prophylaxis: LMWH Disposition: to [facility] pending insurance authorization. 10/31: Talked about aggressiveness of care and recommended the following: No CPR no intubation (with the exception of temporary intubation for procedures and surgeries (as well as no feeding tubes. I explained to him that I did not recommend these procedures as is a chance for seeing at recovery would be severely compromised given his Parkinson's. He continue to state that he has a strong heart. I told him that this is not a matter of him having a strong heart but with him being at risk for pneumonia and so forth he could be at risk for arrhythmias that could be lead to such events. He was not willing to change his CODE STATUS at this time but I encouraged him to talk with his family about changing so he will remain full code at this time. 11/01: asked if he had any additional thoughts or questions about code status. He said he did not. Charges/Coding Visit Charges Inpatient E&M: 72041 Subs Hosp L1
[2024-11-01 09:36] VITALS: BP 131/58; PULSE 69; RESP 18; TEMP 36.6; O2SAT 97
[2024-11-01] MEDS: Glimepiride 4 MG Tablet PO (09:39)
[2024-11-01] MEDS: Empagliflozin 10 MG Tablet PO (09:39)
[2024-11-01] MEDS: Ranolazine 500 MG Tablet PO (09:39)
[2024-11-01] MEDS: metFORMIN HCl 1,000 MG Tablet 1000 MG PO ×2 (09:39→16:16)
[2024-11-01] MEDS: Lisinopril 10 MG Tablet PO (09:39)
[2024-11-01] MEDS: Enoxaparin 40 MG/0.4 ML Syringe SC (09:39)
[2024-11-01] MEDS: Tamsulosin HCl 0.4 MG Capsule PO (09:39)
[2024-11-01] MEDS: Aspirin E.C. 81 MG Tablet PO (09:39)
[2024-11-01] MEDS: Folic Acid 1 MG Tablet PO ×2 (09:39→16:16)
[2024-11-01] MEDS: Clopidogrel Bisulfate 75 MG Tablet PO (09:39)
[2024-11-01] MEDS: Menthol/Lanolin/Calamine/Znox 113 GM Tube 1 APPLIC TOPICAL (09:40)
[2024-11-01] MEDS: Cephalexin 500 MG Capsule PO (09:40)
--- NOTE | 2024-11-01 09:56 | TREXTCAR_ITS ---
Diet Diet Order/Speech Therapy: 10/27/24 17:23 Diet: Cardiac - Heart Healthy Food consistency:: Regular Liquid Consistency:: Regular/Thin Routine Orders/Code Status Code Status: Full Code DC O2, CPAP, BIPAP needs Additional Home O2 Discharge instructions: No Wound(s) RLE: Wound Type: Stasis Ulcer Therapies Weight Bearing: Full weight bearing Physical Therapy: Eval and Treat Occupational Therapy: Eval and Treat Speech Therapy: Eval and Treat Problem/Diagnosis (1) Acute UTI: Status: Acute Code(s): N39.0 - Urinary tract infection, site not specified Plan Acute cystitis- * patient will be changed from IV Rocephin to p.o. cephalexin for acute cystitis. UCx grew out mixed organisms. acute on chronic debility * patient will be seen by PT and OT, patient's family would like the patient to go to an extended care facility for short-term rehab services. Chronic conditions: * coronary artery disease-patient appears stable at this time, patient does have intermittent chest pain, according to the catheter report dated 07/29/2018 patient has severe mid RCA calcification making a PCI high risk-it was noted the patient may always have some degree of chest pain given his microvessel and noncorrectable CAD. 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 on SSI. resume farxiga, glimeperide and metformin. * hypothyroidism-patient is on Synthroid VTE prophylaxis: LMWH Disposition: to [facility] pending insurance authorization. 10/31: Talked about aggressiveness of care and recommended the following: No CPR no intubation (with the exception of temporary intubation for procedures and surgeries (as well as no feeding tubes. I explained to him that I did not recommend these procedures as is a chance for seeing at recovery would be severely compromised given his Parkinson's. He continue to state that he has a strong heart. I told him that this is not a matter of him having a strong heart but with him being at risk for pneumonia and so forth he could be at risk for arrhythmias that could be lead to such events. He was not willing to change his CODE STATUS at this time but I encouraged him to talk with his family about changing so he will remain full code at this time. 11/01: asked if he had any additional thoughts or questions about code status. He said he did not. Allergies/Procedures Done in Hospital Allergies Beta-Blockers (Beta-Adrenergic Bloc Allergy (Severe, Verified 10/27/24 10:34) ANGIOEDEMA Procedures: None Type of Care/Length of Stay Estimated LOS: Convalescent Care Less Than 30 days Type of Care Needed: Skilled Rehab Potential: Fair Prognosis: Fair Additional Orders/Day of Discharge Day of Discharge: 11/01/24 Discharge Plan Admission Admit Date/Time: 10/27/24 16:33 Primary Reason for Your Visit: UTI Attending Provider: Sung Rhodes Primary Care Provider: Felix Montelongo Consulting Providers: Sulma Romero; Roderick Laurent Instructions Patient Instructions: Urinary Tract Infections in Men, UTIs Understanding, Chest Pain UKO Ch Additional Instructions / Restrictions: Follow-up with your primary care physician. Take all of your antibiotics. Return back to the ED if symptoms change or worsen. Follow-up with cardiology. You need to make an appointment to be seen next week, call their office Discharge Orders/Prescriptions Prescriptions: New acetaminophen 325 mg Tablet 650 mg PO Q6H PRN PRN (Reason: Pain 1-10 Or Fever >100.7) Qty: 0 0RF cephalexin 500 mg Capsule 500 mg PO Q12 Qty: 0 0RF Continued gabapentin 800 mg tablet 800 mg PO TID folic acid 800 mcg tablet 0.8 mg PO BID magnesium oxide 400 mg (241.3 mg magnesium) tablet 800 mg PO DAILY carbidopa-levodopa 25-100 mg tablet,disintegrating 1 tab translingual TID levothyroxine 50 mcg tablet 50 mcg PO DAILY glimepiride 2 mg tablet 4 mg PO DAILY Qty: 90 1RF metformin 1,000 MG tablet 1,000 mg PO BIDCM Patient Comments: DIABETES lisinopril 10 MG tablet 10 mg PO DAILY Patient Comments: BLOOD PRESSURE/HEART tamsulosin 0.4 MG capsule 0.4 mg PO DAILY Patient Comments: prostate cholecalciferol (vitamin D3) 5,000 UNIT capsule 5,000 unit PO MOWEFR clopidogrel 75 MG tablet 75 mg PO DAILY aspirin 81 MG tablet 81 mg PO DAILY@0800 nitroglycerin 0.4 MG tablet, sublingual 0.4 mg PO PRN PRN (Reason: CHEST PAIN ) Patient Comments: Dissolve 1 tablet under the tongue as needed. FOR CHEST PAIN. IF NO RELIEF CALL 911 atorvastatin 80 mg tablet 80 mg PO QHS ranolazine 500 mg tablet extended release 12 hr 500 mg PO BID Patient Comments: TAKE 1 TABLET BY MOUTH TWICE A DAY dapagliflozin propanediol [Farxiga] 5 mg tablet 5 mg PO DAILY Qty: 90 1RF Discontinued (DME) blood-glucose meter [Accu-Chek Bettina Plus Meter] Misc See Rx Instructions .ROUTE .MEDSUPPLY Qty: 200 3RF Rx Instructions: test twice a day (DME) Accu-Chek Bettina Plus test strp Strip See Rx Instructions .ROUTE .MEDSUPPLY Qty: 200 1RF Rx Instructions: BID amoxicillin-pot clavulanate 875-125 mg tablet 1 tab PO Q12H 10 Days Qty: 20 0RF Referrals / Follow Up: Eduardo Sabillon MD [Med Staff - Active Staff] - 3-5 Days Felix Montelongo MD [Primary Care Provider] - 3-5 Days Disposition Disposition (needs filled in before D/C Order can be placed): Nursing Home Facility
[2024-11-01] MEDS: Magnesium Chloride 64 MG Delay Rel.Tablet 128 MG PO (09:57)
[2024-11-01] MEDS: Insulin Lispro 100 UNIT/ML INSULN.PEN SC (11:20)
[2024-11-01 11:48] LABS: Bedside Glucose 212 mg/dL (74-106)
--- NOTE | 2024-11-01 14:20 | CASEMGMT ---
Discharge Planning [facility] has obtained auth to admit. SW and physician updated. Kirsty Epperson DC Planning Asst.
[2024-11-01 15:00] VITALS: BP 104/54; PULSE 76; RESP 18; TEMP 36.4; O2SAT 94
--- NOTE | 2024-11-01 15:01 | DS.PCM_ITS ---
Providers Date of Admission: 10/27/24 Primary Care Physician: Dr. Felix Montelongo MD Reason For Visit: WEAKNESS AND UTI Diagnosis Discharge Diagnosis (1) Acute UTI: Status: Acute Code(s): N39.0 - Urinary tract infection, site not specified Plan Acute cystitis- * patient will be changed from IV Rocephin to p.o. cephalexin for acute cystitis. UCx grew out mixed organisms. acute on chronic debility * patient will be seen by PT and OT, patient's family would like the patient to go to an extended care facility for short-term rehab services. Chronic conditions: * coronary artery disease-patient appears stable at this time, patient does have intermittent chest pain, according to the catheter report dated 07/29/2018 patient has severe mid RCA calcification making a PCI high risk-it was noted the patient may always have some degree of chest pain given his microvessel and noncorrectable CAD. 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 on SSI. resume farxiga, glimeperide and metformin. * hypothyroidism-patient is on Synthroid VTE prophylaxis: LMWH Disposition: to [facility] pending insurance authorization. 10/31: Talked about aggressiveness of care and recommended the following: No CPR no intubation (with the exception of temporary intubation for procedures and surgeries (as well as no feeding tubes. I explained to him that I did not recommend these procedures as is a chance for seeing at recovery would be severely compromised given his Parkinson's. He continue to state that he has a strong heart. I told him that this is not a matter of him having a strong heart but with him being at risk for pneumonia and so forth he could be at risk for arrhythmias that could be lead to such events. He was not willing to change his CODE STATUS at this time but I encouraged him to talk with his family about changing so he will remain full code at this time. 11/01: asked if he had any additional thoughts or questions about code status. He said he did not. Medications at Discharge Home Medications lisinopril 10 mg tablet 10 mg PO DAILY blood pressure 11/15/15 metformin 1,000 mg tablet 1,000 mg PO BIDCM blood sugar 11/15/15 tamsulosin 0.4 mg capsule 0.4 mg PO DAILY prostate 02/28/16 cholecalciferol (vitamin D3) 125 mcg (5,000 unit) capsule 5,000 unit PO MOWEFR supplement 06/15/18 clopidogrel 75 mg tablet 75 mg PO DAILY Heart 07/20/18 aspirin 81 mg tablet,delayed release 81 mg PO DAILY@0800 HEART HEALTH 07/28/18 nitroglycerin 0.4 mg sublingual tablet 0.4 mg PO PRN PRN CHEST PAIN 07/28/18 folic acid 800 mcg tablet 0.8 mg PO BID SUPPLMENT 06/17/19 gabapentin 800 mg tablet 800 mg PO TID NERVE 06/17/19 atorvastatin 80 mg tablet 80 mg PO QHS CHOLESTEROL 06/20/19 magnesium oxide 400 mg (241.3 mg magnesium) tablet 800 mg PO DAILY SUPPLEMENT 01/21/21 ranolazine 500 mg tablet,extended release,12 hr 500 mg PO BID . 04/21/21 carbidopa 25 mg-levodopa 100 mg disintegrating tablet 1 tab translingual TID PARKINSONS 06/13/21 levothyroxine 50 mcg tablet 50 mcg PO DAILY THYROID 06/13/21 glimepiride 2 mg tablet 4 mg (2 x 2 mg) PO DAILY blood sugar #90 tabs 05/07/23 Farxiga 5 mg tablet (dapagliflozin propanediol) 5 mg PO DAILY DM #90 tabs 09/29/24 acetaminophen 325 mg tablet 650 mg (2 x 325 mg) PO Q6H PRN PRN Pain 1-10 Or Fever >100.7 #0 tabs 11/01/24 cephalexin 500 mg capsule 500 mg PO Q12 #0 caps 11/01/24 Hospital Course Operations None Procedures None Weight / BMI Weight Weight: 79 kg Body Mass Index (BMI) 24.3 ABG / Lab / Microbiology Data 10/29/24 08:52 10/29/24 08:52 Laboratory: Laboratory Results - last 24 hr 10/31/24 17:09: POC Glucose 136 H 10/31/24 21:13: POC Glucose 125 H 11/01/24 06:03: POC Glucose 125 H 11/01/24 11:19: POC Glucose 212 H Microbiology: Microbiology 10/27/24 12:40 Urine, Clean Catch Urine Culture - Final Mixed Gram Pos & Gram Neg Org 10/27/24 11:25 Mucosa - Nose SARS-CoV-2, Influenza & RSV (PCR) - Final D/C Instructions DC O2, CPAP, BIPAP Needs Additional Home O2 Discharge instructions: No DC home with Oxygen: No Meaningful Use Info Meaningful Use Meaningful Use Diagnoses (Choose all that apply): None applicable Ischemic Stroke Statin Dosing Therapy Reference: STATIN DOSE THERAPY REFERENCE: * Patients > 75 years receive moderate or high dose statin therapy. * Patients 75 years or YOUNGER should receive HIGH intensity statin dose unless contraindicated. You will be required to document reason for non-treatment if statin daily dose does not meet guidelines. HIGH DOSE STATIN THERAPY DAILY Atorvastatin > than or = to 40 mg Rosuvastatin > than or = to 20 mg Amlodipine + Atorvastatin > than or = to 2.5/40 mg Ezetimibe + Simvastatin 10/80 mg Simvastatin 80mg Discharge Plan Admission Admit Date/Time: 10/27/24 16:33 Primary Reason for Your Visit: UTI Attending Provider: Sung Rhodes Primary Care Provider: Felix Montelongo Consulting Providers: Sulma Romero; Roderick Laurent Instructions Patient Instructions: Urinary Tract Infections in Men, UTIs Understanding, Chest Pain UKO Ch Additional Instructions / Restrictions: Follow-up with your primary care physician. Take all of your antibiotics. Return back to the ED if symptoms change or worsen. Follow-up with cardiology. You need to make an appointment to be seen next week, call their office Discharge Orders/Prescriptions Prescriptions: New acetaminophen 325 mg Tablet 650 mg PO Q6H PRN PRN (Reason: Pain 1-10 Or Fever >100.7) Qty: 0 0RF cephalexin 500 mg Capsule 500 mg PO Q12 Qty: 0 0RF Continued gabapentin 800 mg tablet 800 mg PO TID folic acid 800 mcg tablet 0.8 mg PO BID magnesium oxide 400 mg (241.3 mg magnesium) tablet 800 mg PO DAILY carbidopa-levodopa 25-100 mg tablet,disintegrating 1 tab translingual TID levothyroxine 50 mcg tablet 50 mcg PO DAILY glimepiride 2 mg tablet 4 mg PO DAILY Qty: 90 1RF metformin 1,000 MG tablet 1,000 mg PO BIDCM Patient Comments: DIABETES lisinopril 10 MG tablet 10 mg PO DAILY Patient Comments: BLOOD PRESSURE/HEART tamsulosin 0.4 MG capsule 0.4 mg PO DAILY Patient Comments: prostate cholecalciferol (vitamin D3) 5,000 UNIT capsule 5,000 unit PO MOWEFR clopidogrel 75 MG tablet 75 mg PO DAILY aspirin 81 MG tablet 81 mg PO DAILY@0800 nitroglycerin 0.4 MG tablet, sublingual 0.4 mg PO PRN PRN (Reason: CHEST PAIN ) Patient Comments: Dissolve 1 tablet under the tongue as needed. FOR CHEST PAIN. IF NO RELIEF CALL 911 atorvastatin 80 mg tablet 80 mg PO QHS ranolazine 500 mg tablet extended release 12 hr 500 mg PO BID Patient Comments: TAKE 1 TABLET BY MOUTH TWICE A DAY dapagliflozin propanediol [Farxiga] 5 mg tablet 5 mg PO DAILY Qty: 90 1RF Discontinued (DME) blood-glucose meter [Accu-Chek Bettina Plus Meter] Misc See Rx Instructions .ROUTE .MEDSUPPLY Qty: 200 3RF Rx Instructions: test twice a day (DME) Accu-Chek Bettina Plus test strp Strip See Rx Instructions .ROUTE .MEDSUPPLY Qty: 200 1RF Rx Instructions: BID amoxicillin-pot clavulanate 875-125 mg tablet 1 tab PO Q12H 10 Days Qty: 20 0RF Referrals / Follow Up: Eduardo Sabillon MD [Med Staff - Active Staff] - 3-5 Days Felix Montelongo MD [Primary Care Provider] - 3-5 Days Disposition Disposition (needs filled in before D/C Order can be placed): [facility] Facility Charges/Coding Visit Charges Inpatient E&M: 76628 Disch Hosp
--- NOTE | 2024-11-01 15:30 | CASEMGMT ---
Social Work Precert has been obtained.? Physician updated and pt is ready for discharge today.? 7000 convalescent form completed in [facility].?DCA and bedside nurse notified of discharge. Disposition: [facility]?, skilled level of care under convalescent stay. NIALL Latham
--- NOTE | 2024-11-01 15:35 | CASEMGMT ---
Discharge Planning Discharge orders, signed med list, and transport time sent to [facility]. Physicians will transport patient by wheelchair at 5:30. Nursing, SW, pt, and his updated. Kirsty Epperson DC Planning Asst.
[2024-11-01 16:47] LABS: Bedside Glucose 163 mg/dL (74-106)
== END 2024-11-01 18:29 | DRG 690 ==
LOC: ED 15:19 → MS3 16:45
PROVIDERS: Internal Medicine; Admitting Provider Internal Medicine; Emergency Provider Surgery; PCP Family Medicine Geriatric Medicine
DX: N30.00 Acute cystitis without hematuria (principal); R62.7 Adult failure to thrive; G20.A1 Parkinson's disease without dyskinesia, without mention of fluctuations; E11.22 Type 2 diabetes mellitus with diabetic chronic kidney disease; N18.31 Chronic kidney disease, stage 3a; E03.9 Hypothyroidism, unspecified; I12.9 Hypertensive chronic kidney disease with stage 1 through stage 4 chronic kidney disease, or unspecified chronic kidney disease; E11.40 Type 2 diabetes mellitus with diabetic neuropathy, unspecified; G31.84 Mild cognitive impairment of uncertain or unknown etiology; I25.10 Atherosclerotic heart disease of native coronary artery without angina pectoris; E78.5 Hyperlipidemia, unspecified; R07.9 Chest pain, unspecified; R06.02 Shortness of breath; N40.1 Benign prostatic hyperplasia with lower urinary tract symptoms; N13.8 Other obstructive and reflux uropathy; R35.0 Frequency of micturition; Z68.24 Body mass index [BMI] 24.0-24.9, adult; Z79.82 Long term (current) use of aspirin; Z79.84 Long term (current) use of oral hypoglycemic drugs; Z79.02 Long term (current) use of antithrombotics/antiplatelets; Z79.890 Hormone replacement therapy; Z79.899 Other long term (current) drug therapy; Z95.1 Presence of aortocoronary bypass graft; Z95.5 Presence of coronary angioplasty implant and graft
CPT/HCPCS: 11042; 36415; 71045; 80048; 80053; 81001; 82962; 83735; 83880; 84443; 84484; 85025; 85379; 87070; 87075; 87077; 87086; 87088; 87186; 87205; 87631; 93005; 93306; 94668; 97116; 97162; 97167; 97530; 97535; 99213; 99285; J7030; J7040; Q9957; A4216; C8929; G0463

== ENCOUNTER → 2024-12-07 05:00 | Outpatient (REF) | payer MEDICARE, SELFPAY ==
[2020-03-14 14:48] VITALS: BMI 28.1
[2024-12-07 08:04] LABS: Absolute Lymphocyte Count 1.34 X10^3/uL (0.83-4.51); Absolute Neutrophil Count 3.2 X10^3/uL (2.0-7.7); Basophil# 0.03 X10^3/uL; Basophil% 0.6 % (0-1); Eosinophils% 5.5 % (0-5); Hematocrit 40.6 % (40-54); Hemoglobin 13.4 g/dL (13.0-16.5); Lymphocyte # 1.34 X10^3/ul (0.83-4.51); Lymphocyte % 24.8 % (19-41); Mean Corpuscular Hgb 33.9 pg (27.0-32.0); Mean Corpuscular Volume 102.8 fL (80-94); Monocyte# 0.51 X10^3/uL; Monocyte% 9.4 % (0-10); NRBC Flagged by Analyzer 0 % (0-5); Neutrophil # 3.22 X10^3/uL (2.7-7.7); Neutrophil % 59.5 % (47-70); Platelet Count 217 K/mm3 (150-450); RBC Distribution Width CV 12.3 % (11.6-14.6); RBC Distribution Width SD 46.2 fl (35.1-43.9); Red Blood Count 3.95 M/mm3 (4.6-6.2); White Blood Count 5.4 K/mm3 (4.4-11.0)
[2024-12-07 08:28] LABS: Anion Gap 5 (5-15); BUN 27 mg/dL (7-18); BUN/Creat Ratio 18.5 RATIO (10-20); Calcium,Total 9.1 mg/dL (8.5-10.1); Chloride 106 mmol/L (98-107); Creatinine, Serum 1.46 mg/dL (0.70-1.30); EST Glomerular Filtration Rate 49 mL/min (>60); Est Glom Filt Rate - Afr Amer 59 mL/min (>60); Glucose 129 mg/dL (74-106); Potassium 4.8 mmol/L (3.5-5.1); Sodium Level 138 mmol/L (136-145)
== END ==
LOC: OLS.WHLTSB 05:00
PROVIDERS: PCP Family Medicine Geriatric Medicine; Visit Provider Internal Medicine
DX: G20.A1 Parkinson's disease without dyskinesia, without mention of fluctuations (principal); N39.0 Urinary tract infection, site not specified; M62.561 Muscle wasting and atrophy, not elsewhere classified, right lower leg; M62.562 Muscle wasting and atrophy, not elsewhere classified, left lower leg
CPT/HCPCS: 36415; 80048; 85025

== ENCOUNTER → 2025-01-04 05:00 | Outpatient (REF) | payer MEDICARE, SELFPAY ==
[2020-03-14 14:48] VITALS: BMI 28.1
[2025-01-04 07:06] LABS: Absolute Lymphocyte Count 0.86 X10^3/uL (0.83-4.51); Absolute Neutrophil Count 2.9 X10^3/uL (2.0-7.7); Basophil# 0.03 X10^3/uL; Basophil% 0.6 % (0-1); Eosinophil# 0.37 X10^3/uL; Eosinophils% 7.7 % (0-5); Hematocrit 39.9 % (40-54); Hemoglobin 13.1 g/dL (13.0-16.5); Lymphocyte # 0.86 X10^3/ul (0.83-4.51); Lymphocyte % 17.8 % (19-41); Mean Corp Hgb Conc 32.8 g/dL (32-36); Mean Corpuscular Hgb 33.2 pg (27.0-32.0); Monocyte# 0.62 X10^3/uL; Monocyte% 12.8 % (0-10); NRBC Flagged by Analyzer 0 % (0-5); Neutrophil # 2.94 X10^3/uL (2.7-7.7); Neutrophil % 60.9 % (47-70); Platelet Count 217 K/mm3 (150-450); RBC Distribution Width CV 12.4 % (11.6-14.6); RBC Distribution Width SD 46.5 fl (35.1-43.9); Red Blood Count 3.95 M/mm3 (4.6-6.2); White Blood Count 4.8 K/mm3 (4.4-11.0)
[2025-01-04 07:13] LABS: Anion Gap 4 (5-15); BUN 29 mg/dL (7-18); BUN/Creat Ratio 19.2 RATIO (10-20); Calcium,Total 8.9 mg/dL (8.5-10.1); Chloride 107 mmol/L (98-107); Creatinine, Serum 1.51 mg/dL (0.70-1.30); EST Glomerular Filtration Rate 47 mL/min (>60); Est Glom Filt Rate - Afr Amer 57 mL/min (>60); Glucose 225 mg/dL (74-106); Potassium 4.5 mmol/L (3.5-5.1); Sodium Level 141 mmol/L (136-145)
== END ==
LOC: OLS.WHLTSB 05:00
PROVIDERS: PCP Family Medicine Geriatric Medicine; Visit Provider Internal Medicine
DX: G20.A1 Parkinson's disease without dyskinesia, without mention of fluctuations (principal)
CPT/HCPCS: 36415; 80048; 85025

== ENCOUNTER → 2025-01-31 | Outpatient (REF) | payer MEDICARE, SELFPAY ==
[2020-03-14 14:48] VITALS: BMI 28.1
[2025-01-31 08:18] LABS: Hemoglobin A1c 7.9 % (<=5.6)
[2025-01-31 08:24] LABS: AST(SGOT) 32 U/L (<=37); Alanine Aminotransfer ALT/SGPT 35 U/L (<=46); Albumin, Serum 4.3 g/dL (3.4-4.8); Alkaline Phosphatase 83 U/L (40-129); Bilirubin, Direct 0.22 mg/dL (0.00-0.30); Globulin 2.8 g/dL (2.2-4.2); Magnesium 2.2 mg/dL (1.5-2.2); Protein, Total 7.1 g/dL (5.9-8.4); Total Bilirubin 0.47 mg/dL (0.00-1.30)
[2025-01-31 08:48] LABS: Vitamin D,25 Hydroxy 38.8 ng/mL (30-100)
[2025-02-01 04:58] LABS: Absolute Lymphocyte Count 0.83 X10^3/uL (0.83-4.51); Absolute Neutrophil Count 3.3 X10^3/uL (2.0-7.7); Basophil# 0.02 X10^3/uL; Basophil% 0.4 % (0-1); Eosinophil# 0.32 X10^3/uL; Eosinophils% 6.2 % (0-5); Hematocrit 39.9 % (40-54); Hemoglobin 13.8 g/dL (13.0-16.5); Lymphocyte # 0.83 X10^3/ul (0.83-4.51); Mean Corp Hgb Conc 34.6 g/dL (32-36); Mean Corpuscular Hgb 34.5 pg (27.0-32.0); Mean Corpuscular Volume 99.8 fL (80-94); Mean Platelet Vol. 10.6 fl (6.2-12.0); Monocyte# 0.66 X10^3/uL; Monocyte% 12.7 % (0-10); NRBC Flagged by Analyzer 0 % (0-5); Neutrophil # 3.34 X10^3/uL (2.7-7.7); Neutrophil % 64.5 % (47-70); Platelet Count 218 K/mm3 (150-450); RBC Distribution Width CV 12.1 % (11.6-14.6); White Blood Count 5.2 K/mm3 (4.4-11.0)
[2025-02-01 05:00] LABS: Anion Gap 14 (5-15); BUN 40 mg/dL (4-19); Calcium,Total 9.3 mg/dL (7.6-11.0); Carbon Dioxide 21.6 mmol/L (21.0-32.0); Chloride 101 mmol/L (98-108); Creatinine, Serum 1.43 mg/dL (0.70-1.20); EST Glomerular Filtration Rate 49 (>60); Glucose 265 mg/dL (70-99); Potassium 5.3 mmol/L (3.3-5.1); Sodium Level 137 mmol/L (133-145)
== END ==
LOC: OLS.WHLTSB 05:00
PROVIDERS: PCP Family Medicine Geriatric Medicine; Visit Provider Internal Medicine
DX: G20.A1 Parkinson's disease without dyskinesia, without mention of fluctuations (principal); E78.5 Hyperlipidemia, unspecified; E55.9 Vitamin D deficiency, unspecified; N39.0 Urinary tract infection, site not specified; E11.9 Type 2 diabetes mellitus without complications; I10 Essential (primary) hypertension
CPT/HCPCS: 36415; 80048; 80076; 82306; 83036; 83735; 85025

== ENCOUNTER → 2025-02-28 | Outpatient (REF) | payer MEDICARE, SELFPAY ==
[2020-03-14 14:48] VITALS: BMI 28.1
[2025-02-28 09:45] LABS: Color, Urine Straw (Yellow); Glucose, Dipstick 1000 mg/dl (Normal); Ketone-Dipstick Negative (Negative); Leukocyte Esterase-Dipstick 25 /ul (Negative); Nitrite-Dipstick Negative (Negative); Occult Blood-Urine Negative /ul (Negative); Protein-Dipstick 15 mg/dl (Negative); Urine Bilirubin Dipstick Negative (Negative); Urine Clarity Clear (Clear); Urine Urobilinogen Normal (Normal)
== END ==
LOC: OLS.WHLTSB 05:00
PROVIDERS: PCP Family Medicine Geriatric Medicine; Visit Provider Internal Medicine
DX: N39.0 Urinary tract infection, site not specified (principal)
CPT/HCPCS: 81002; 87086; 87088

== ENCOUNTER → 2025-03-01 | Outpatient (REF) | payer MEDICARE, SELFPAY ==
[2020-03-14 14:48] VITALS: BMI 28.1
[2025-03-01 07:52] LABS: Absolute Lymphocyte Count 0.88 X10^3/uL (0.83-4.51); Absolute Neutrophil Count 4.2 X10^3/uL (2.0-7.7); Basophil# 0.04 X10^3/uL; Basophil% 0.7 % (0-1); Eosinophil# 0.22 X10^3/uL; Eosinophils% 3.7 % (0-5); Hematocrit 40.7 % (40-54); Hemoglobin 13.9 g/dL (13.0-16.5); Lymphocyte # 0.88 X10^3/ul (0.83-4.51); Lymphocyte % 14.9 % (19-41); Mean Corp Hgb Conc 34.2 g/dL (32-36); Mean Corpuscular Volume 99.5 fL (80-94); Mean Platelet Vol. 10.4 fl (6.2-12.0); Monocyte% 8.5 % (0-10); NRBC Flagged by Analyzer 0 % (0-5); Neutrophil # 4.24 X10^3/uL (2.7-7.7); Platelet Count 213 K/mm3 (150-450); RBC Distribution Width CV 11.9 % (11.6-14.6); RBC Distribution Width SD 43.6 fl (35.1-43.9); Red Blood Count 4.09 M/mm3 (4.6-6.2); White Blood Count 5.9 K/mm3 (4.4-11.0)
[2025-03-01 07:58] LABS: Anion Gap 13 (5-15); BUN 44 mg/dL (4-19); BUN/Creat Ratio 37.1 RATIO (10-20); Calcium,Total 9.5 mg/dL (7.6-11.0); Carbon Dioxide 21.5 mmol/L (21.0-32.0); Chloride 104 mmol/L (98-108); Creatinine, Serum 1.19 mg/dL (0.70-1.20); EST Glomerular Filtration Rate 61 (>60); Glucose 152 mg/dL (70-99); Potassium 4.5 mmol/L (3.3-5.1); Sodium Level 138 mmol/L (133-145)
== END ==
LOC: OLS.WHLTSB 05:00
PROVIDERS: PCP Family Medicine Geriatric Medicine; Visit Provider Internal Medicine
DX: G20.A1 Parkinson's disease without dyskinesia, without mention of fluctuations (principal)
CPT/HCPCS: 36415; 80048; 85025

== ENCOUNTER → 2025-03-29 04:00 | Outpatient (REF) | payer MEDICARE, SELFPAY ==
[2020-03-14 14:48] VITALS: BMI 28.1
[2025-03-29 08:26] LABS: Absolute Lymphocyte Count 0.83 X10^3/uL (0.83-4.51); Absolute Neutrophil Count 2.7 X10^3/uL (2.0-7.7); Basophil# 0.03 X10^3/uL; Basophil% 0.7 % (0-1); Eosinophil# 0.17 X10^3/uL; Hematocrit 35.5 % (40-54); Hemoglobin 12.1 g/dL (13.0-16.5); Lymphocyte # 0.83 X10^3/ul (0.83-4.51); Lymphocyte % 19.5 % (19-41); Mean Corp Hgb Conc 34.1 g/dL (32-36); Mean Corpuscular Hgb 33.5 pg (27.0-32.0); Mean Corpuscular Volume 98.3 fL (80-94); Mean Platelet Vol. 10.4 fl (6.2-12.0); Monocyte# 0.52 X10^3/uL; Monocyte% 12.2 % (0-10); NRBC Flagged by Analyzer 0 % (0-5); Neutrophil % 63.6 % (47-70); Platelet Count 182 K/mm3 (150-450); RBC Distribution Width SD 43.5 fl (35.1-43.9); Red Blood Count 3.61 M/mm3 (4.6-6.2); White Blood Count 4.3 K/mm3 (4.4-11.0)
[2025-03-29 08:41] LABS: Anion Gap 11 (5-15); BUN 38 mg/dL (4-19); BUN/Creat Ratio 30.3 RATIO (10-20); Carbon Dioxide 22.7 mmol/L (21.0-32.0); Chloride 103 mmol/L (98-108); Creatinine, Serum 1.25 mg/dL (0.70-1.20); EST Glomerular Filtration Rate 57 (>60); Glucose 269 mg/dL (70-99); Potassium 4.8 mmol/L (3.3-5.1); Sodium Level 136 mmol/L (133-145)
== END ==
LOC: OLS.WHLTSB 04:00
PROVIDERS: PCP Family Medicine Geriatric Medicine; Referring Provider Internal Medicine; Visit Provider Internal Medicine
DX: G20.A1 Parkinson's disease without dyskinesia, without mention of fluctuations (principal)
CPT/HCPCS: 36415; 80048; 85025

== ENCOUNTER → 2025-04-26 05:00 | Outpatient (REF) | payer MEDICARE, SELFPAY ==
[2020-03-14 14:48] VITALS: BMI 28.1
--- OUTSIDE RECORDS SUMMARY | 2025-04-26 03:53 | XMS RPT_ITS | CCD ---
Author Organization [facility] Care Team Providers Care Informatics Coordinator Name Role Phone NICOLA PAYNE Unavailable Unavailable IM[facility] Unavailable Unavailable FELIX MONTELONGO Unavailable Unavailable MATTHEW MANENETH Unavailable Unavailable MATTHEW MANENETH Unavailable Unavailable JAYDAFELIX Jay Unavailable Unavailable ALHAJI, KARI Unavailable Unavailable MATTHEW MANENETH Unavailable Unavailable FELIX MONTELONGO Unavailable Unavailable Unknown, Referring Provider Unavailable Unav ailable Unavailable Unavailable Anupama Feng DO Unavailable Felix Montelongo Primary Care Provider Cali Still MD Unavailable Felix Montelongo MD Primary Care Provider [phone] Dr. Felix Montelongo Primary Care Provider Dr. Felix Montelongo Referring Provider HELEN Durand Attending Provider Anupama Feng DO Unavailable Felix Montelongo MD Primary Care Provider [phone] Cali Still MD Unavailable Anupama Feng DO Unavailable Felix Montelongo MD Primary Care Provider Cali Still MD Unavailable Cali Still MD Unavailable Felix Montelongo MD Primary Care Provider Cali Still MD Unavailable Marni Hudson MD Unavailable Cali Still MD Unavailable Rocío Wagner PA-C Primary Care Provider Vincent Espinosa MD Primary Care Provider Cali Still MD Unavailable Rocío Wagner PA-C L Unavailable Older MANAGER HEART.BULK PLANT AGENT, Sheela Unavailable Janine Daugherty PA-C Unavailable Jayda SHAW, Dr. [place] Primary Care Provider Carmen DE LA CRUZ, Dr. Eng Emergency Provider Nick SHAW, Dr. Ozuna Admit Provider Nick SHWA, Dr. Ozuna Other Provider Dr. Sung Rhodes DO Attending Provider Mehran DE LA CRUZ, Dr. Vaughn Other Provider Dr. Angela Ramirez MD Attending Provider Mehran DE LA CRUZ, Dr. Vaughn Attending Provider Meagan DE LA CRUZ, Dr. Almaraz Other Provider Abeba Ling Attending Provider Buzz Rainey MD Attending Provider Unavaila juan carlos Rainey MD, Dr. Gerber Attending Provider Dr. Felix Montelongo MD Referring Provider Abdirahman SHAW, Dr. Hanson Attending Provider SLEIK, KHALED MELOUD Referring Unavailable GANTA, VINCENT Primary Care Unavailable KWAN ESTRELLA Attending Unavailable SLEIK, KHALED MELOUD Attending Unavailable SLEIK, KHALED MELOUD Referring Unavailable GANTA, VINCENT Primary Care Unavailable SLEIK, KHALED MELOUD Referring Unavailable GANTA, VINCENT Primary Care Unavailable SLEIK, KHALED MAREOUD Attending Unavailable SLEIK, KHALED MELOUD Referring Unavailable GANTA, VINCENT Primary Care Unavailable Jayda SHAW, Dr. [place] Primary Care Provider Redd SHAW, Buzz Attending Provider Unavaila ble [place] CHARGE ACCOUNT IDENTIFICATION CLERK-C, Abeba Attending Provider Redd SHAW, Dr. Gerber Attending Provider King VALERIA, Dr. Preciado Attending Provider Jayda SHAW, Dr. [place] Primary Care Provider Redd SHAW, Buzz Attending Provider Unavaila ble [place] CHARGE ACCOUNT IDENTIFICATION CLERK-C, Abeba Attending Provider Jayda SHAW, Dr. [place] Referring Provider Redd ZHANG Efewongbe Attending Unavailabl e Jayda, Felix Primary Care Unavailable Jayda, Felix Primary Care Unavailable Druga THORPE, Rita Schwartz Attending Unavailabl e Jayda, Felix Referring Unavailable Oleghe OLSCodybe Attending Unavailabl e Jayda, Felix Primary Care Unavailable Oleghe Cody ZHANGbe Attending Unavailabl e Jayda, Felix Primary Care Unavailable Oleghe Cody ZHANGbe Attending Unavailabl e Jayda, Felix Primary Care Unavailable Jayda, Felix Primary Care Unavailable Oleghe OLS Efyumikoongbe Attending Unavailabl e Oleghe OLS, Efewongbe Attending Unavailabl e Jayda, Felix Primary Care Unavailable Sung Rhodes Attending Unavailable Sulma Romero Consulting Unavailable Sulma Romero Admitting Unavailable Jayda, Felix Primary Care Unavailable Roderick Laurent Consulting Unavailable Oleghe OLS, Efkenbe Attending Unavailabl e Jayda, Felix Primary Care Unavailable Ozzy Bro Attending Unavailable Jayda, Felix Referring Unavailable Jayda, Felix Primary Care Unavailable [place] CHARGE ACCOUNT IDENTIFICATION CLERK, Abeba Attending Unavailable Jayda, Felix Primary Care Unavailable Mauroton CHARGE ACCOUNT IDENTIFICATION CLERK, Abeba Attending Unavailable Jayda, Felix Primary Care Unavailable [place]ickton CHARGE ACCOUNT IDENTIFICATION CLERK, Abeba Attending Unavailable Jayda, Felix Primary Care Unavailable Oleghe Efewongbe Attending Unavailable Jayda, Felix Primary Care Unavailable [place]ton CHARGE ACCOUNT IDENTIFICATION CLERK, Abeba Attending Unavailable Jayda, Felix Primary Care Unavailable Margie Gary Attending Unavailable Jayda, Felix Primary Care Unavailable Jayda, Felix Referring Unavailable Jayda, Felix Primary Care Unavailable OleAlexandra Escalanteewongbe Attending Unavailabl lana Calixto CHARGE ACCOUNT IDENTIFICATION CLERK, Rita Schwartz Attending Unavailabl e Jayda, Felix Referring Unavailable Jayda, Felix Primary Care Unavailable Sulma Romero Consulting Unavailable Sulma Romero Attending Unavailable Sulma Romero Admitting Unavailable Jayda, Felix Primary Care Unavailable Sung Rhodes Attending Unavailable Roderick Laurent Consulting Unavailable Sung Rhodes Consulting Unavailable Angela Ramirez Attending Unavailable Jayda, Felix Primary Care Unavailable Otilia Conleyongbe Attending Unavailabl e Jayda, Felix Primary Care Unavailable Jayda, Felix Primary Care Unavailable Rahe LEATHA Efewongbe Attending Unavaildonal Calixto CHARGE ACCOUNT IDENTIFICATION CLERK, Rita Schwartz Consulting Unavailabl e Jayda, Felix Primary Care Unavailable Durga CHARGE ACCOUNT IDENTIFICATION CLERK, Rita Schwartz Attending Unavailabl e Jayda, Felix Referring Unavailable Jayda, Felix Primary Care Unavailable Redd ZHANG Efewongbe Attending Unavailabl e Oleghe Efewongbe Attending Unavailable Jayda, Felix Primary Care Unavailable Ozzy Bro Attending Unavailable Jayda, Felix Referring Unavailable Jayda, Felix Primary Care Unavailable RaheAlexandraewongbe Attending Unavailable Jayda, Felix Primary Care Unavailable Abeba Peacock NP Attending Unavailable Jayda, Felix Primary Care Unavailable Roderick Laurent Attending Unavailable Allergies Allergy Classification Reported Allergen(s) Allergy Type Date of Onset Reaction(s) Facility (20 sources) Adrenergic Beta-Antagonist s; Translations: [BETA-BLOCKERS (BETA-ADRENERGI C BLOCKING AGTS)] Propensity to adverse reactions (disorder) 0 Shortness of Breath [facility] Repository (6 sources) Beta-Blockers (Beta-Adrenergi c Bloc; Translations: [Beta-Blockers (Beta-Adrenergi c Bloc] Allergy to substance 2 ANGIOEDEMA [facility] Medications Current Medications Medication Drug Class(es) Dates Sig (Normalized) Sig (Original) acetaminophen 325 mg oral tablet (3 sources) Start: 11-01-2024 Acetaminophen 325 mg Tablet Active 650 mg PO EVERY 6 HOURS NEEDED as needed for Pain 1-10 Or Fever >100.7 0 November 01, 2024 1:00am aspirin 81 mg delayed release oral tablet (20 sources) Platelet Aggregation Inhibitor, Nonsteroidal Anti-inflammatory Drug Start: 05-15-2021 take 1 tablet by mouth once daily Aspirin Adult Low Dose 81 MG Oral Tablet Delayed Release TAKE 1 TABLET DAILY. Quantity: 0 Refills: 0 Ordered: 15-May-2021 DO Start : 15-May-2021 Active Start: 05-15-2021 take 1 tablet by bhaskar th every other day Aspirin EC 325 MG Oral Tablet Delayed Release TAKE 1 TABLET EVERY OTHER DAY Quantity: 0 Refills: 0 Ordered: 15-May-2021 DO Start : 15-May-2021 Active Start: 07-28-2018 take 1 tablet by bhaskar th once daily Aspirin 81 MG tablet Active 81 mg PO DAILY@0800 July 28, 2018 12:00am take 1 tablet by bhaskar th once daily aspirin 325 mg tablet Take 325 mg by mouth once daily. Active Comment on above: Take 325 mg by mouth once daily. atorvastatin 80 mg oral tablet (20 sources) HMG-CoA Reductase Inhibitor Start: take 0.5 tablet by mouth once daily atorvastatin (LIPITOR) 80 mg tablet Take 0.5 tablets by mouth once daily. 90 tablet 3 11/29/2023 Active Start: 05-15-2021 take 1 tablet by bhaskar th at bedtime Atorvastatin Calcium 40 MG Oral Tablet TAKE 1 TABLET AT BEDTIME. Quantity: 90 Refills: 3 Ordered: 15-May-2021 DO Start : 15-May-2021 Active Start: 06-20-2019 take 1 tablet by bhaskar th at bedtime Atorvastatin 80 mg tablet Active 80 mg PO AT BEDTIME June 20, 2019 11:52am Start: 03-24-2019 take 0.5 tablet by m out once daily atorvastatin (LIPITOR) 80 mg tablet Take 0.5 tablets by mouth once daily. 90 tablet 3 03/24/2019 Active Start: 07-28-2018 End: 06-20-2019 Atorvastatin 80 MG tablet Discontinued 40 mg PO AT BEDTIME July 28, 2018 12:00am June 20, 2019 11:55am Start: 07-28-2018 End: 06-20-2019 take 40 mg by mouth at bedtime Atorvastatin Discontinu ed 40 MG PO AT BEDTIME July 27, 2018 11:00pm June 20, 2019 10:55am Comment on above: Take 0.5 tablets by mouth once daily. B infantis/B ani/B tori/B bifid (PROBIOTIC 4X ORAL) (18 sources) B infantis/B ani /B tori/B bifid (PROBIOTIC 4X ORAL) Take by mouth. Active B infantis/B ani /B tori/B bifid (PROBIOTIC 4X ORAL) Take by mouth. 0 Active Comment on above: Take by mouth. carbidopa 25 mg oral tablet (10 sources) Aromatic Amino Acid Decarboxylation Inhibitor Start: 07-07-20 End: 07-06-20 take 1 tablet by mouth three times daily carbidopa (LODOSYN) 25 mg tab Indications: Parkinson disease (HCC) Take 1 tablet by mouth three times daily. With every Sinemet dose 90 tablet 11 07/07/2023 Active Comment on above: Take 1 tablet by bhaskar th three times daily. With every Sinemet dose carbidopa 25 mg / levodopa 100 mg disintegrating oral tablet (20 sources) Aromatic Amino Acid Decarboxylation Inhibitor, Aromatic Amino Acid Start: 06-13-20 End: 11-08-20 Carbidopa-Levodop a 25-100 mg tablet,disintegra ting Active 2 {tbl} PO THREE TIMES A DAY November 08, 2024 5:23pm Start: 06-13-2021 Carbidopa-Levo dopa Active 1 TABLET translingual THREE TIMES A DAY June 12, 2021 11:00pm Start: 04-29-2021 End: 06-13-2021 take 1 tablet by mouth three times daily Carbidopa-Levodopa Discontinued 1 TABLET PO THREE TIMES A DAY 270 April 28, 2021 11:00pm June 13, 2021 8:46am Start: 04-21-2021 End: 06-13-2021 Carbidopa-Levodopa 25-100 mg tablet Discontinued 1 {tbl} PO TWICE A DAY April 21, 2021 8:46pm June 13, 2021 9:45am Start: 04-21-2021 End: 06-13-2021 take 1 tablet by mouth twice daily Carbidopa-Levodopa Discontinued 1 TABLET PO TWICE A DAY April 21, 2021 7:46pm June 13, 2021 8:45am Start: 08-24-2017 End: 02-20-2024 Carbidopa-Levodopa 25-100 mg tablet Discontinued 1 {tbl} PO THREE TIMES A DAY 270 March 19, 2021 4:28pm April 21, 2021 8:47pm Start: 08-24-2017 End: 04-21-2021 take 1 tablet by mouth three times daily Carbidopa-Levodopa Discontinued 1 TABLET PO THREE TIMES A DAY 270 March 19, 2021 3:28pm April 21, 2021 7:47pm Comment on above: Take 2 tablets by [facility] three times daily. cholecalciferol 0.025 mg oral capsule (8 sources) Vitamin D Start: 11-08-20 take 1 capsule by mouth twice daily Cholecalciferol (Vitamin D3) 25 mcg (1,000 unit) capsule Active 25 ug PO TWICE A DAY November 08, 2024 1:00am Start: 06-15-2018 End: 11-08-2024 Cholecalciferol (Vitamin D3) 5,000 UNIT capsule Discontinued 5000 U PO MOWE June 15, 2018 12:00am November 08, 2024 5:25pm cholecalciferol, vitamin D3, (VITAMIN D3 ORAL) (18 sources) cholecalciferol, vitamin D3, (VITAMIN D3 ORAL) Take by mouth. Active cholecalciferol, vitamin D3, (VITAMIN D3 ORAL) Take by mouth. 0 Active Comment on above: Take by mouth. clopidogrel 75 mg oral tablet (20 sources) P2Y12 Platelet Inhibitor Start: 07-20-20 take 1 tablet by mouth once daily Clopidogrel 75 MG tablet Active 75 mg PO DAILY July 20, 2018 12:00am Comment on above: Take 1 tablet by [facility] once daily. DULoxetine 20 mg delayed release oral capsule (3 sources) Serotonin and Norepinephrine Reuptake Inhibitor Start: 07-06-20 End: 07-06-20 23 take 1 capsule by mouth once daily DULoxetine (CYMBALTA) 20 mg capsule Take 1 capsule by mouth once daily. 30 capsule 11 07/06/2022 12/18/2022 Discontinued Comment on above: Take 1 capsule by [facility] once daily. finasteride 5 mg oral tablet (6 sources) 5-alpha Reductase Inhibitor Start: 05-15-20 21 take 1 tablet by mouth once daily Finasteride 5 MG Oral Tablet TAKE 1 TABLET DAILY. Quantity: 0 Refills: 0 Ordered: 15-May-2021 DO Start : 15-May-2021 Active Start: 08-20-2017 End: 06-20-2019 take 1 tablet by mouth once daily Finasteride 5 MG tablet Discontinued 5 mg PO DAILY August 20, 2017 12:00am June 20, 2019 11:55am folic acid 0.8 mg oral tablet (20 sources) Start: 11-08-2024 take 0.8 mg by mouth once daily Folic Acid 800 mcg tablet Active 0.8 mg PO daily November 08, 2024 5:23pm Start: 05-15-2021 take 1 tablet by bhaskar th twice daily Folic Acid 800 MCG Oral Tablet take one tablet twice a day Quantity: 0 Refills: 0 Ordered: 15-May-2021 DO Start : 15-May-2021 Active Start: 06-17-2019 End: 11-08-2024 take 0.8 mg by mouth twice daily Folic Acid 800 mcg tablet Discontinued 0.8 mg PO TWICE A DAY June 17, 2019 12:00am November 08, 2024 5:26pm Start: 06-17-2019 take 0.8 mg by mouth twice daily Folic Acid Active 0.8 MG PO TWICE A DAY June 16, 2019 11:00pm Start: 02-28-2016 End: 06-17-2019 take 2 tablets by mouth once daily Folic Acid 0.4 MG tablet Discontinued 0.8 mg PO DAILY February 28, 2016 12:00am June 17, 2019 12:44pm Start: 02-28-2016 End: 06-17-2019 take 0.8 mg by mouth once daily Folic Acid Discontinue d 0.8 MG PO DAILY February 27, 2016 11:00pm June 17, 2019 11:44am Start: 07-01-2010 FOLIC ACID 800 MCG TAB Take one(1) tablet two(2) times daily. 0 07/01/2010 Active Comment on above: Take one(1) tablet t wo(2) times daily. furosemide 20 mg oral tablet (11 sources) Loop Diuretic Start: 01-22-2025 End: 01-22-2025 furosemide (LASIX) 20 mg tablet Take 1 tablet by mouth every 48 hours. 45 tablet 2 01/22/2025 Active End: 01-22-2025 take 1 tablet by mouth once daily as needed furosemide (LASIX) 20 mg tablet Take 20 mg by mouth once daily. taking PRN 01/22/2025 Discontinued Comment on above: Take 20 mg by mouth once daily. taking PRN gabapentin 600 mg oral tablet (20 sources) Anti-epileptic Agent Start: 11-30-2024 take 1 tablet by mouth twice daily Gabapentin 600 mg tablet Active 600 mg PO TWICE A DAY November 30, 2024 1:00am Start: 12-15-2021 End: 01-04-2024 take 1 tablet by mouth three times daily gabapentin (NEURONTIN) 600 mg tablet Take 1 tablet by mouth three times daily for 90 days. 90 tablet 2 12/15/2021 01/04/2024 Discontinued Start: 06-17-2019 End: 11-30-2024 take 1 tablet by mouth three times daily Gabapentin 800 mg tablet Discontinued 800 mg PO THREE TIMES A DAY June 17, 2019 12:00am November 30, 2024 11:11am Start: 11-15-2015 End: 06-17-2019 take 1 capsule by mouth every four hours Gabapentin 400 MG capsule Discontinued 400 mg PO Q4H November 15, 2015 1:00am June 17, 2019 12:43pm Comment on above: Take 1 tablet by bhaskar th three times daily for 90 days. Take 1 tablet by bhaskar th three times a day for 90 days. glimepiride 2 mg oral tablet (20 sources) Sulfonylurea Start: take 2 tablets by mouth twice daily Glimepiride 2 mg tablet Active 4 mg PO TWICE A DAY November 08, 2024 5:24pm Start: 07-07-2022 End: 11-08-2024 take 2 tablets by mouth once daily Glimepiride 2 mg tablet Discontinued 4 mg PO DAILY May 07, 2023 11:21am November 08, 2024 5:26pm Start: 07-07-2022 End: 05-07-2023 take 4 mg by mouth once daily Glimepiride Active 4 MG PO DAILY May 07, 2023 10:21am Start: 05-15-2021 take 2 tablets by mo uth twice daily at mealtime Glimepiride 1 MG Oral Tablet TAKE 2 TABLETS BY MOUTH TWICE A DAY WITH MEALS Quantity: 0 Refills: 0 Ordered: 15-May-2021 DO Start : 15-May-2021 Active Start: 04-26-2020 End: 07-07-2022 take 2 tablets by mouth twice daily Glimepiride 2 mg tablet Discontinued 4 mg PO TWICE A DAY April 26, 2020 2:44pm July 07, 2022 8:56am Start: 04-26-2020 End: 07-07-2022 take 4 mg by mouth twice daily Glimepiride Discontinue d 4 MG PO TWICE A DAY April 26, 2020 1:44pm July 07, 2022 7:56am Start: 06-20-2019 End: 04-26-2020 take 3 tablets by mouth once daily Glimepiride 2 mg tablet Discontinued 6 mg PO DAILY June 20, 2019 11:53am April 26, 2020 2:44pm Start: 06-20-2019 End: 04-26-2020 take 6 mg by mouth once daily Glimepiride Discontinued 6 MG PO DAILY June 20, 2019 10:53am April 26, 2020 1:44pm Start: 06-17-2019 End: 06-20-2019 take 1 tablet by mouth twice daily Glimepiride 2 mg tablet Discontinued 2 mg PO TWICE A DAY June 17, 2019 12:44pm June 20, 2019 11:55am Start: 06-15-2018 End: 06-17-2019 take 2 tablets by mouth once daily Glimepiride 2 MG tablet Discontinued 4 mg PO DAILY June 15, 2018 12:00am June 17, 2019 12:45pm Start: 06-15-2018 End: 06-17-2019 take 4 mg by mouth once daily Glimepiride Discontinued 4 MG PO DAILY June 14, 2018 11:00pm June 17, 2019 11:45am take 1 tablet by bhaskar th twice daily at mealtime glimepiride (AMARYL) 4 mg tablet Take 4 mg by mouth twice daily with meals. Active Comment on above: Take 4 mg by mouth t wice daily with meals. 24 hr isosorbide mononitrate 30 mg extended release oral tablet (20 sources) Nitrate Vasodilator Start: take 1 tablet by mouth once daily, then take 1 tablet by mouth every twenty-four hours Isosorbide Mononitrate 30 mg tablet extended release 24 hr Active 30 mg PO daily November 30, 2024 1:00am Start: 05-15-2021 take 1 tablet by bhaskar th once daily Isosorbide Mononitrate ER 60 MG Oral Tablet Extended Release 24 Hour TAKE 1 TABLET DAILY DIRECTED. Quantity: 0 Refills: 0 Ordered: 24-Jun-2021 DO Start : 15-May-2021 Active Start: 07-28-2018 End: 05-07-2023 Isosorbide Mononitrate 60 MG tablet Discontinued 90 mg PO DAILY July 28, 2018 12:00am May 07, 2023 11:09am Start: 07-28-2018 End: 05-07-2023 take 90 mg by mouth once daily Isosorbide Mononitrate Discontinued 90 MG PO DAILY July 27, 2018 11:00pm May 07, 2023 10:09am Start: 06-16-2018 End: 07-19-2018 take 1 tablet by mouth once daily Isosorbide Mononitrate 120 MG tablet Discontinued 120 mg PO DAILY June 16, 2018 12:00am July 19, 2018 8:53am Start: 06-15-2018 End: 06-16-2018 Isosorbide Mononitrate 60 MG tablet Discontinued 90 mg PO DAILY June 15, 2018 12:00am June 16, 2018 9:48am Start: 06-15-2018 End: 06-16-2018 take 90 mg by mouth once daily Isosorbide Mononitrate Discontinued 90 MG PO DAILY June 14, 2018 11:00pm June 16, 2018 8:48am lisinopril 10 mg oral tablet (20 sources) Angiotensin Converting Enzyme Inhibitor Start: 02-27-2025 take 5 mg by mouth once daily Lisinopril 10 mg tablet Active 5 mg PO DAILY February 27, 2025 11:04am Start: 01-22-2025 End: 02-21-2025 take 1 tablet by mouth once daily lisinopril (ZESTRIL) 5 mg tablet Take 1 tablet by mouth once daily. 30 tablet 3 01/22/2025 Active Start: 11-29-2023 End: 01-22-2025 take 1 tablet by mouth once daily lisinopril (PRINIVIL) 10 mg tablet Take 1 tablet by mouth once daily. 90 tablet 3 11/29/2023 01/22/2025 Discontinued (Course of therapy completed) Start: 05-15-2021 take 0.5 tablet by m outh once daily Lisinopril 10 MG Oral Tablet TAKE 1/2 TABLET DAILY. Quantity: 0 Refills: 0 Ordered: 15-May-2021 DO Start : 15-May-2021 Active Start: 05-15-2021 take 1 tablet by bhaskar th once daily Lisinopril 10 MG Oral Tablet Take 1 tablet daily Quantity: 90 Refills: 3 Ordered: 15-May-2021 DO Start : 15-May-2021 Active Start: 11-15-2015 End: 02-27-2025 take 1 tablet by mouth once daily Lisinopril 10 MG tablet Discontinued 10 mg PO DAILY November 15, 2015 1:00am February 27, 2025 11:05am Comment on above: Take 1 tablet by bhaskar th once daily. metFORMIN hydrochloride 1000 mg oral tablet (20 sources) Biguanide Start: 11-15-20 take 1 tablet by mouth twice daily at mealtime Metformin 1,000 MG tablet Active 1000 mg PO TWICE DAILY WITH MEALS November 15, 2015 1:00am Comment on above: Take 1,000 mg by bhaskar th twice daily with meals. nitroglycerin 0.4 mg sublingual tablet (20 sources) Nitrate Vasodilator Start: 11-29-19 End: 09-11-20 nitroglycerin sublingual (NITROSTAT) 0.4 mg SL tablet Dissolve 1 tablet under the tongue as needed. FOR CHEST PAIN. IF NO RELIEF CALL 911 30 tablet 3 09/11/2024 Active Start: 07-28-2018 Nitroglycerin 0.4 MG tablet, sublingual Active 0.4 mg PO NEEDED as needed for CHEST PAIN July 28, 2018 12:00am Start: 06-23-2018 nitroglycerin sublingual (NITROSTAT) 0.4 mg SL tablet Dissolve 1 tablet under the tongue as needed. FOR CHEST PAIN. IF NO RELIEF CALL 911 30 tablet 3 06/23/2018 Active Comment on above: Dissolve 1 tablet un nima the tongue as needed. FOR CHEST PAIN. IF NO RELIEF CALL primidone 50 mg oral tablet (3 sources) Anti-epileptic Agent Start: 09-25-20 End: 10-30-20 take 0.5 tablet by mouth once daily at bedtime, then take 1 tablet by mouth once daily at bedtime, then take 1.5 tablets by mouth once daily at bedtime, then take 2 tablets by mouth once daily at bedtime, then take 2.5 tablets by mouth once daily at bedtime, then take 3 tablets by mouth once daily at bedtime primidone (MYSOLINE) 50 mg tablet Take 0.5 tablets by mouth daily at bedtime for 7 days, THEN 1 tablet daily at bedtime for 7 days, THEN 1.5 tablets daily at bedtime for 7 days, THEN 2 tablets daily at bedtime for 7 days, THEN 2.5 tablets daily at bedtime for 7 days, THEN 3 tablets daily at bedtime. Can stop increasing the dose if tremors are controlled. 90 tablet 11 09/25/2021 10/30/2022 Active Comment on above: Take 0.5 tablets by mouth daily at bedtime for 7 days, THEN 1 tablet daily at bedtime for 7 days, THEN 1.5 tablets daily at bedtime for 7 days, THEN 2 tablets daily at bedtime for 7 days, THEN 2.5 tablets daily at bedtime for 7 days, THEN 3 tablets daily at bedtime. Can stop increasing the dose if tremors are controlled. saccharomyces boulardii 250 mg oral capsule (3 sources) Start: 11-08-20 24 take 1 capsule by mouth once daily Saccharomyces Boulardii (Daily Probiotic (S. Boulardii)) 250 mg capsule Active 250 mg PO daily November 08, 2024 1:00am tamsulosin hydrochloride 0.4 mg oral capsule (20 sources) alpha-Adrenergic Marianela Start: 02-28-20 16 take 1 capsule by mouth once daily Tamsulosin 0.4 MG capsule Active 0.4 mg PO DAILY February 28, 2016 12:00am Comment on above: Take 1 capsule by [facility] once daily. VIT B COMPLEX 100 COMBO NO.2 ORAL (18 sources) VIT B COMPLEX 10 0 COMBO NO.2 ORAL Take by mouth. PRN Active VIT B COMPLEX 10 0 COMBO NO.2 ORAL Take by mouth. PRN 0 Active VIT B COMPLEX 10 0 COMBO NO.2 ORAL Take by mouth. 0 Active Comment on above: Take by mouth. Take by mouth. PRN WALKER ROLLATOR SEAT WITH 6 WHEELS - RED (8 sources) Start: 01-05-2024 WALKER ROLLATOR SEAT WITH 6 WHEELS - RED Use as directed. 1 Each 01/05/2024 Active Start: 01-05-2024 WALKER ROLLATO R SEAT WITH 6 WHEELS - RED Use as directed. 1 Each 0 01/05/2024 Active Comment on above: Use as directed. Completed/Discontinued Medications Medication Drug Class(es) Dates Sig (Normalized) Sig (Original) amantadine hydrochloride 100 mg oral tablet (15 sources) Influenza A M2 Protein Inhibitor Start: 04-03-2021 End: 05-07-2023 take 1 tablet by mouth twice daily Amantadine Hcl 100 mg tablet Discontinued 100 mg PO TWICE A DAY 180 April 03, 2021 12:00am May 07, 2023 11:07am Start: 01-21-2021 End: 04-03-2021 take 1 capsule by mouth once daily, then take 1 capsule by mouth twice daily Amantadine Hcl 100 mg capsule Discontinued 100 mg PO .COMPLEX 180 March 19, 2021 4:26pm April 03, 2021 11:53am 100 mg PO daily for one week then 100 mg BID thereafter amLODIPine 5 mg oral tablet (3 sources) Dihydropyridine Calcium Channel Marianela Start: 11-30-2024 End: 02-27-2025 take 1 tablet by mouth once daily Amlodipine 5 mg tablet Discontinued 5 mg PO daily 90 November 30, 2024 1:00am February 27, 2025 11:02am amoxicillin 875 mg / clavulanate 125 mg oral tablet (3 sources) Penicillin-class Antibacterial Start: 10-27-2024 End: 10-27-2024 Amoxicillin-Pot Clavulanate 875-125 mg tablet Discontinued 1 {tbl} PO Q12H 20 October 27, 2024 1:00am November 05, 2024 1:00am October 27, 2024 4:17pm Blood-Glucose Meter (Accu-Chek Bettina Plus Meter) misc (5 sources) Start: 05-03-2020 End: 11-01-2024 Blood-Glucose Meter (Accu-Chek Bettina Plus Meter) misc Discontinued 0 .ROUTE .MEDSUPPLY May 03, 2020 12:00am November 01, 2024 11:01am test twice a day Start: 05-03-2020 Blood-Glucose Meter (Accu-Chek Bettina Plus Meter) misc Active 0 .ROUTE .MEDSUPPLY May 02, 2020 11:00pm test twice a day Start: 05-03-2020 Blood-Glucose Meter (Accu-Chek Bettina Plus Meter) misc Active 0 .ROUTE .MEDSUPPLY 200 May 03, 2020 12:00am test twice a day cephalexin 500 mg oral capsule (3 sources) Cephalosporin Antibacterial Start: 11-01-2024 End: 11-08-2024 take 1 capsule by mouth every twelve hours Cephalexin 500 mg Capsule Discontinued 500 mg PO EVERY 12 HOURS 0 November 01, 2024 1:00am November 08, 2024 5:26pm dapagliflozin 5 mg oral tablet (20 sources) Sodium-Glucose Cotransporter 2 Inhibitor Start: 06-04-2022 End: 09-29-2024 take 1 tablet by mouth once daily Dapagliflozin Propanediol (Farxiga) 5 mg tablet Discontinued 5 mg PO DAILY September 14, 2024 2:41pm September 29, 2024 3:10pm Comment on above: Take 5 mg by mouth o nce daily. hydroCHLOROthiazide 25 mg oral tablet (20 sources) Thiazide Diuretic Start: 05-15-2021 take 0.5 tablet by mouth once daily hydroCHLOROthiazide 25 MG Oral Tablet 1/2 tablet daily Quantity: 0 Refills: 0 Ordered: 15-May-2021 DO Start : 15-May-2021 Active Start: 06-20-2019 End: 05-07-2023 take 1 tablet by mouth once daily Hydrochlorothiazide 25 mg tablet Discontinued 25 mg PO DAILY February 23, 2020 9:50am May 07, 2023 11:08am Start: 06-17-2019 End: 06-20-2019 Hydrochlorothiazide 25 mg ta blet Discontinued 12.5 mg PO DAILY June 17, 2019 12:42pm June 20, 2019 12:04pm Start: 06-17-2019 End: 06-20-2019 take 12.5 mg by mouth once daily Hydrochlorothiazide Discontinued 12.5 MG PO DAILY June 17, 2019 11:42am June 20, 2019 11:04am Start: 03-24-2019 End: 12-18-2022 hydroCHLOROthiazide (HYDRODI URIL, ESIDRIX) 25 mg tablet Take 1/2 tablet daily 45 tablet 3 03/24/2019 12/18/2022 Discontinued Start: 07-28-2018 End: 06-17-2019 take 1 tablet by mouth once daily Hydrochlorothiazide 25 MG tablet Discontinued 25 mg PO DAILY July 28, 2018 12:00am June 17, 2019 12:45pm Comment on above: Take 1/2 tablet jenifer y Lactobacillus Combination No.4 (2 sources) Start: 11-15-2015 End: 06-17-2019 Lactobacillus Combination No.4 Discontinued 1 EACH PO DAILY November 15, 2015 12:00am June 17, 2019 11:45am Start: 11-15-2015 End: 06-17-2019 Lactobacillus Combination No .4 Discontinued 1 EACH PO DAILY November 15, 2015 1:00am June 17, 2019 12:45pm Lactobacillus Combination No.4 1 EACH capsule (3 sources) Start: 11-15-2015 End: 06-17-2019 take 1 capsule by mouth once daily Lactobacillus Combination No.4 1 EACH capsule Discontinued 1 NMA PO DAILY November 15, 2015 1:00am June 17, 2019 12:45pm levothyroxine sodium 0.075 mg oral tablet (20 sources) l-Thyroxi ne Start: 06-15-2018 End: 06-13-2021 take 1 tablet by mouth once daily Levothyroxine 75 MCG tablet Discontinued 75 ug PO DAILY June 15, 2018 12:00am June 13, 2021 9:46am Start: 11-26-2017 take 1 tablet by bhaskar th once daily Levothyroxine 50 mcg tablet Active 50 ug PO DAILY June 13, 2021 12:00am Start: 11-26-2017 levothyroxine (SYNTHROID) 75 mcg tablet Take 50 mcg by mouth once daily. 0 11/26/2017 Active Comment on above: Take 50 mcg by mouth once daily. Magnesium (4 sources) Start: 05-15-2021 take 1 tablet by mouth once daily Magnesium 400 MG Oral Tablet 1 tablet daily Quantity: 0 Refills: 0 Ordered: 15-May-2021 DO Start : 15-May-2021 Active magnesium oxide 400 mg oral tablet (20 sources) Start: 12-08-2018 take 1 tablet by mouth once daily Magnesium Oxide 400 mg (241.3 mg magnesium) tablet Active 800 mg PO DAILY January 21, 2021 9:11am Start: 12-08-2018 End: 01-21-2021 take 1 tablet by mouth once daily Magnesium Oxide 400 mg (241.3 mg magnesium) tablet Discontinued 400 mg PO DAILY June 17, 2019 12:00am January 21, 2021 9:12am End: 01-22-2025 Magnesium Oxide 500 mg tab T levi 250 mg by mouth twice daily. 01/22/2025 Discontinued (Course of therapy completed) Comment on above: Take 1 tablet by bhaskar th once daily. Take 250 mg by mouth twice daily. Multivitamin 1 EACH tablet (3 sources) Start: 11-15-2015 End: 06-17-2019 Multivitamin 1 EACH tablet Discontinued 1 NMA PO DAILY November 15, 2015 1:00am June 17, 2019 12:45pm Multivitamin preparation (2 sources) Start: 11-15-2015 End: 06-17-2019 Multivitamin Discontinued 1 EACH PO DAILY November 15, 2015 12:00am June 17, 2019 11:45am Start: 11-15-2015 End: 06-17-2019 Multivitamin Discontinued 1 EACH PO DAILY November 15, 2015 1:00am June 17, 2019 12:45pm ondansetron 4 mg oral tablet (15 sources) Serotonin-3 Receptor Antagonist Start: 07-28-2018 End: 05-07-2023 take 1 tablet by mouth twice daily Ondansetron Hcl 4 mg tablet Discontinued 4 mg PO TWICE A DAY 180 March 19, 2021 4:29pm May 07, 2023 11:09am pantoprazole 40 mg delayed release oral tablet (5 sources) Proton Pump Inhibitor Start: 06-13-2021 End: 05-07-2023 take 1 tablet by mouth once daily Pantoprazole 40 mg tablet,delayed release (DR/EC) Discontinued 40 mg PO DAILY June 13, 2021 12:00am May 07, 2023 11:10am 12 hr ranolazine 1000 mg extended release oral tablet (20 sources) Anti-anginal Start: 11-29-2023 End: 01-22-2025 take 1 tablet by mouth twice daily ranolazine SR (RANEXA) 1,000 mg tab ER 12 hr Take 1 tablet by mouth two times a day. 180 tablet 3 11/29/2023 01/22/2025 Discontinued (Course of therapy completed) Start: 01-16-2022 take 1 tablet by bhaskar th twice daily ranolazine SR (RANEXA) 1,000 mg tab ER 12 hr Take 1 tablet by mouth twice daily. 180 tablet 3 01/16/2022 Active Start: 06-24-2021 take 1 tablet by bhaskar th every twelve hours Ranolazine ER 500 MG Oral Tablet Extended Release 12 Hour TAKE 1 TABLET EVERY 12 HOURS. Quantity: 0 Refills: 0 Ordered: 24-Jun-2021 DO Start : 24-Jun-2021 Active Start: 04-21-2021 End: 02-27-2025 take 1 tablet by mouth twice daily Ranolazine 500 mg tablet extended release 12 hr Discontinued 500 mg PO TWICE A DAY April 21, 2021 12:00am February 27, 2025 11:05am Comment on above: Take 1 tablet by bhaskar twice daily. Take 1 tablet by bhaskar th two times a day. 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 lower leg with fat layer exposed] Onset: 5 10-27-2024 Chronic Complication of device; implant or graft (5 sources) Arteriosclerosis of coronary artery bypass graft; Translations: [Atherosclerosis of coronary artery bypass graft(s) without angina pectoris] 06-17-2019 Chronic Congestive heart failure; nonhypertensive (2 sources) Diastolic heart failure; Translations: [Unspecified diastolic (congestive) heart failure] Onset: 5 01-22-2025 Chronic Coronary atherosclerosis and other heart disease (20 sources) Atherosclerotic heart disease of [place] coronary artery without angina pectoris; Translations: [Coronary arteriosclerosis] Onset: 8 04-23-2021 Chronic Diabetes mellitus with complications (15 sources) Neuropathy due to diabetes mellitus; Translations: [Type 2 diabetes mellitus with diabetic neuropathy, unspecified] Onset: 5 Chronic Diabetes mellitus without complication (20 sources) Diabetes mellitus; Translations: [Diabetes mellitus without mention of complication, type II or unspecified type, not stated as uncontrolled] Onset: 7 04-23-2021 Chronic Disorders of lipid metabolism (20 sources) Hyperlipidemia; Translations: [Other and unspecified hyperlipidemia] Onset: 7 02-23-2017 Chronic Essential hypertension (17 sources) Hypertensive disorder; Translations: [Unspecified essential hypertension] Onset: 5 Chronic Genitourinary symptoms and ill-defined conditions (20 sources) Increased frequency of urination; Translations: [Frequency of micturition] Onset: 3 12-06-2012 Episodic Hyperplasia of prostate (18 sources) Benign prostatic hyperplasia; Translations: [Benign prostatic hyperplasia without lower urinary tract symptoms] Onset: 3 12-06-2012 Chronic Malaise and fatigue (20 sources) Malaise and fatigue; Translations: [Other malaise] Onset: 8 10-10-2015 Episodic Other and ill-defined heart disease (5 sources) Diastolic dysfunction; Translations: [Other ill-defined heart diseases] 11-30-2024 Chronic Other and ill-defined heart disease (1 source) Other ill-defined heart diseases; Translations: [Other ill-defined heart diseases] Onset: 5 Chronic Other connective tissue disease (1 source) Increased muscle tone; Translations: [Other specified disorders of muscle] Episodic Other connective tissue disease (1 source) Muscle pain; Translations: [Myalgia, unspecified site] Episodic Other connective tissue disease (2 sources) Muscle wasting and atrophy, not elsewhere classified, right lower leg; Translations: [Muscle wasting and atrophy, not elsewhere classified, right lower leg] Onset: 5 Episodic Other connective tissue disease (2 sources) Muscle wasting and atrophy, not elsewhere classified, left lower leg; Translations: [Muscle wasting and atrophy, not elsewhere classified, left lower leg] Onset: 5 Episodic Other gastrointestinal disorders (5 sources) Burping; Translations: [Eructation] 06-13-2021 Episodic Other gastrointestinal disorders (1 source) Slow transit constipation; Translations: [Slow transit constipation] 07-07-2023 Episodic Other hereditary and degenerative nervous system conditions (20 sources) Essential tremor; Translations: [Essential tremor] Onset: 9 05-16-2019 Chronic Other hereditary and degenerative nervous system conditions (5 sources) Impaired cognition; Translations: [Mild cognitive impairment, so stated] 04-29-2021 Chronic Other nervous system disorders (20 sources) Chronic inflammatory demyelinating polyradiculoneuropathy ; Translations: [Chronic inflammatory demyelinating polyneuritis] Onset: 7 04-23-2021 Chronic Other nervous system disorders (5 sources) Polyneuropathy; Translations: [Polyneuropathy, unspecified] 05-17-2023 Chronic Other nutritional; endocrine; and metabolic disorders (3 sources) Overweight in adulthood with body mass index of 25 or more but less than 30; Translations: [Body mass index (BMI) 26.0-26.9, adult] 11-09-2024 Episodic Parkinson`s disease (20 sources) Parkinson's disease; Translations: [Parkinson's disease] Onset: 9 04-23-2021 Chronic Parkinson`s disease (2 sources) Parkinson`s disease; Translations: [Parkinson's disease without dyskinesia, without mention of fluctuations] Onset: Peripheral and visceral atherosclerosis (6 sources) Atherosclerosis of aorta; Translations: [Atherosclerosis of aorta] 11-09-2024 Chronic Pulmonary heart disease (3 sources) Pulmonary hypertension; Translations: [Pulmonary hypertension, unspecified] 11-09-2024 Chronic Residual codes; unclassified (5 sources) History of chest pain; Translations: [Personal history of other specified conditions] 06-17-2019 Episodic Residual codes; unclassified (5 sources) Edema; Translations: [Edema, unspecified] 06-04-2022 Episodic Spondylosis; intervertebral disc disorders; other back problems (5 sources) Spinal stenosis in cervical region; Translations: [Spinal stenosis, cervical region] 04-29-2021 Episodic Thyroid disorders (11 sources) Hypothyroidism; Translations: [Hypothyroidism, unspecified] Chronic Unclassified (1 source) Unknown / UNK(Unknown) Onset: 8 Urinary tract infections (6 sources) Acute urinary tract infection; Translations: [Urinary tract infection, site not specified] Onset: 5 11-09-2024 Episodic Viral infection (1 source) Postherpetic neuralgia; Translations: [Other postherpetic nervous system involvement] 01-04-2024 Episodic Past or Other Problems Problem Classification Problem Date Documented Da te Episodic/Chronic Acute and unspecified renal failure (18 sources) Acute injury of kidney; Translations: [Acute kidney failure, unspecified] Onset: 04-23-2021 04-23-2021 Episodic Coronary atherosclerosis and other heart disease (9 sources) Stented coronary artery; Translations: [Presence of coronary angioplasty implant and graft] Onset: 07-29-2018 06-17-2019 Episodic Comment on above: 07/29/2018:JACQUELINE of pr oximal Diagonal #1, 2.25 X 8 Promus Synergy per DJN @ [facility]07/20/2018:JACQUELINE of mid [place] RPL branch, 3.0 X 16 Promus Synergy ; JACQUELINE of distal SVG to RCA, 2.5 X 20 Promus Synergy per DJN @ [facility] Nonspecific chest pain (12 sources) Chest pain; Translations: [Chest pain, unspecified] Onset: 11-30-2024 04-21-2021 Episodic Other nervous system disorders (18 sources) Abnormal gait; Translations: [Unsteadiness on feet] Onset: 10-24-2021 10-24-2021 Episodic Residual codes; unclassified (2 sources) Edema, unspecified; Translations: [Edema] Onset: 12-30-2024 Episodic Residual codes; unclassified (1 source) Personal history of other specified conditions; Translations: [Personal history of other specified conditions] Onset: 11-30-2024 Episodic Results Test Name Value Interpretation Reference Range Facility Absolute lymphocyte countOrd ered By: Buzz Rainey on 03-29-2025 Lymphocytes Auto (Unsp spec) [#/Vol] 0.83 10*3/uL 0.83-4.51 [facility] Absolute neutrophil countOrd ered By: Buzz Rainey on 03-29-2025 Neutrophils (Bld) [#/Vol] 2.7 10*3/uL 2.0-7.7 [facility] Anion gap in Serum or Plasma Ordered By: Buzz Rainey on 03-29-2025 Anion gap [Moles/Vol] 11 mmol/L 5-15 [facility] Automated lymphocyte count a s percentage of total leukocytesOrdered By: Buzz Rainey on 03-29-2025 Lymphocytes/100 WBC Auto (Unsp spec) 19.5 % 19-41 [facility] BUN/creatinine ratioOrdered By: Buzz Rainey on 03-29-2025 Urea nitrogen/Creatinine [Mass ratio] 30.3 mg/mg High 10-20 [facility] Basophil percentageOrdered B y: Buzz Rainey on 03-29-2025 Basophils/100 WBC (Bld) 0.7 % 0-1 [facility] Carbon dioxide, total [Moles /volume] in Central venous bloodOrdered By: Buzz Brainlavelle on 03-29-2025 CO2 [Moles/Vol] 22.7 mmol/L 21.0-32.0 [facility] Chloride assayOrdered By: Alexandra tamanna Brainlavelle on 03-29-2025 Chloride [Moles/Vol] 103 mmol/L 98-108 [facility] Eosinophil percentageOrdered By: Buzz Rainey on 03-29-2025 Eosinophils/100 WBC (Bld) 4.0 % 0-5 [facility] Erythrocyte distribution wid th ratioOrdered By: tamanna Brainlavelle on 03-29-2025 Erythrocyte distribution width (RBC) [Ratio] 12.0 % 11.6-14.6 [facility] Erythrocyte distribution wid th standard deviationOrdered By: yumikomendonestrella Rainey on 03-29-2025 Erythrocyte distribution width (RBC) [Ratio] 43.5 fl 35.1-43.9 [facility] Glomerular filtration rate ( GFR) estimation/1.73 sq m using serum, plasma, or whole bOrdered By: Buzz Brainlavelle on 03-29-2025 GFR/1.73 sq M.predicted among non-blacks MDRD (S/P/Bld) [Vol rate/Area] 57 mL/min/{1.73_m2} Low >60 [facility] Comment on above: mL/min/1.73m2 CKD-EP I Creatinine Equation (2020) Hematocrit Auto (Bld) [Volum e fraction]Ordered By: Alexandrayumikohueyestrella De La Pazmklana on 03-29-2025 Hematocrit (Bld) [Volume fraction] 35.5 % Low 40-54 [facility] Hemoglobin measurementOrdere d By: Alexandrayumikohueyestrella De La Pazmklana on 03-29-2025 Hemoglobin (Bld) [Mass/Vol] 12.1 g/dL Low 13.0-16.5 [facility] Immature granulocytes/100 WB C Auto (Bld)Ordered By: Buzz Rainey on 03-29-2025 Immature granulocytes/100 WBC (Bld) 0.000 % 0.0-0.9 [facility] Comment on above: IG% - Immature Granu locytes (promyelocytes, myelocytes and metamyelocytes) > 1% indicates that a LEFT SHIFT is Present. MCV (mean corpuscular volume ) determinationOrdered By: Buzz Rainey on 03-29-2025 MCV (RBC) [Entitic vol] 98.3 fL High 80-94 [facility] Mean corpuscular hemoglobin (MCH) determinationOrdered By: Buzz Rainey on 03-29-2025 MCH (RBC) [Entitic mass] 33.5 pg High 27.0-32.0 [facility] Mean corpuscular hemoglobin concentration (MCHC) determinationOrdered By: Buzz Rainey on 03-29-2025 MCHC (RBC) [Mass/Vol] 34.1 g/dL 32-36 [facility] Mean platelet volume determi nationOrdered By: Buzz Rainey on 03-29-2025 Platelet mean volume (Bld) [Entitic vol] 10.4 fL 6.2-12.0 [facility] Monocyte percentageOrdered B y: Buzz Rainey on 03-29-2025 Monocytes/100 WBC (Bld) 12.2 % High 0-10 [facility] Neutrophil percentageOrdered By: Buzz Rainey on 03-29-2025 Neutrophils/100 WBC (Bld) 63.6 % 47-70 [facility] Nucleated red blood cell per centageOrdered By: Buzz Rainey on 03-29-2025 Nucleated RBC/100 WBC (Bld) [Ratio] 0 % 0-5 [facility] Platelet countOrdered By: Alexandra Rainey on 03-29-2025 Platelets (Bld) [#/Vol] 182 10*3/uL 150-450 [facility] Potassium measurement (mass/ volume)Ordered By: Buzz Rainey on 03-29-2025 Potassium (Unsp spec) [Mass/Vol] 4.8 mmol/L 3.3-5.1 [facility] RBC Auto (Bld) [#/Vol]Ordere d By: Buzz Brainlavelle on 03-29-2025 RBC (Bld) [#/Vol] 3.61 10*6/uL Low 4.6-6.2 [facility] Serum creatinine measurement (mass/volume)Ordered By: Buzz Rainey on 03-29-2025 Creatinine [Mass/Vol] 1.25 mg/dL High 0.70-1.20 [facility] Serum glucose measurement (m ass/volume)Ordered By: Buzz Rainey on 03-29-2025 Glucose [Mass/Vol] 269 mg/dL High 70-[address] [facility] Serum or plasma calcium jesenia urement (mass/volume)Ordered By: Otiliamendonestrella Rainey on 03-29-2025 Calcium [Mass/Vol] 9.0 mg/dL 7.6-11.[address] [facility] Serum or plasma urea nitroge n measurement (mass/volume)Ordered By: Buzz Rainey on 03-29-2025 Urea nitrogen [Mass/Vol] 38 mg/dL High 4-19 [facility] Sodium levelOrdered By: Otilia gibson Brainmklana on 03-29-2025 Sodium [Moles/Vol] 136 mmol/L 133-[address] [facility] White blood cell (WBC) count Ordered By: Buzz Rainey on 03-29-2025 WBC (Bld) [#/Vol] 4.3 10*3/uL Low 4.4-11.[address] [facility] CNOVon 2025 CNOV Office Visit (CARDWS ) FLEX KLINE ([id number]) 1940 [place] Date Time Provider Department 03/05/25 11:00 AM HARJINDER JONES During your visit today, we recorded the following information about you: Pulse Respiration Blood pressure Weight 82/minute 16/minute 138/60 81.6 kg Height 1.765 m Harjinder Jones MD 2025 12:16 PM Signed Harjinder Jones MD Interventional Cardiology [address] [place] [phone] Chief Complaint Patient presents with: Follow Up: 6 week follow up, c/o chest pain HISTORY OF PRESENT ILLNESS: Mr. Kline is a 85 year old male seen in my office today for follow-up patient had a prior history of severe [place] coronary artery disease with prior history of bypass surgery consisted of a PEACE to the LAD and a vein graft to the circumflex and the right coronary artery cardiac catheterizations in 2020 shows occluded vein graft to the right but patent vein graft to the circumflex and patent PEACE to the LAD hypertensive heart disease doing well from a cardiac point of view patient is wheelchair-bound does have essential tremor and Parkinson's very limited in terms of physical activity He does complain of chest pain which is sharp none anginal and bilateral leg swelling He is on good medical therapy Cardiac Risk Factors age (male over 45, female over 55), hyperlipidemia, hypertension, family history of CAD 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) Coronary atherosclerosis Diabetes (HCC) Herpes zoster with other nervous system complications(053.19) Hyperlipidemia Hypertrophy of prostate without urinary obstruction and other lower urinary tract symptoms (LUTS) Hyposmolality and/or hyponatremia Intervertebral lumbar disc disorder with myelopathy, lumbar region Mononeuritis of unspecified site 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) Peripheral vascular disease, unspecified Type II or unspecified type diabetes mellitus without mention of complication, uncontrolled Unspecified hereditary and idiopathic peripheral neuropathy PAST SURGICAL HISTORY Procedure Laterality Date COLONOSCOPY FLX DX W/COLLJ SPEC WHEN PFRMD 02/09/2013 Colonoscopy COLONOSCOPY FLX DX W/COLLJ SPEC WHEN PFRMD 02/24/16 Colonoscopy HEART SURGERY HX PAST SURGICAL HISTORY OF 2006 CABG FAMILY HISTORY Problem Relation Age of Onset Ischemic Heart Disease Father Alzheimer's Disease Mother Ischemic Heart Disease Brother Hypertension No Family History Coronary Artery Disease No Family History Diabetes No Family History Thyroid No Family History Blood Disease No Family History Blood Clots No Family History Factor 5 Leiden No Family History Stroke No Family History Systemic Lupus Erythematosus No Family History DVT No Family History Multiple Sclerosis No Family History Bipolar disorder No Family History Schizophrenia No Family History Dementia No Family History Aneurysm No Family History COPD No Family History Social History Tobacco Use Smoking status: Never Smokeless tobacco: Never Substance Use Topics Alcohol use: Never Drug use: No ALLERGIES Allergen Reactions Beta Blockers [Beta* Shortness of Breath Tongue swelling Medications: Current Outpatient Medications Medication Sig Dispense Refill clopidogrel (PLAVIX) 75 mg tablet Take 75 mg by mouth once daily. isosorbide mononitrate ER (IMDUR) 30 mg 24 hr tablet Take 30 mg by mouth once daily. furosemide (LASIX) 20 mg tablet Take 1 tablet by mouth every 48 hours. 45 tablet 2 lisinopril (ZESTRIL) 5 mg tablet Take 1 tablet by mouth once daily. 30 tablet 3 nitroglycerin sublingual (NITROSTAT) 0.4 mg SL tablet Dissolve 1 tablet under the tongue as needed. FOR CHEST PAIN. IF NO RELIEF CALL 911 30 tablet 3 WALKER ROLLATOR SEAT WITH 6 WHEELS - RED Use as directed. 1 Each 0 gabapentin (NEURONTIN) 800 mg tablet Take 1 tablet by mouth three times a day for 90 days. 2 atorvastatin (LIPITOR) 80 mg tablet Take 0.5 tablets by mouth once daily. 90 tablet 3 carbidopa-levodopa (SINEMET 25-100) 25-100 mg per tablet Take 2 tablets by mouth three times daily. 540 tablet 3 FARXIGA 5 mg tablet Take 5 mg by mouth once daily. aspirin 325 mg tablet Take 325 mg by mouth once daily. cholecalciferol, vitamin D3, (VITAMIN D3 ORAL) Take by mouth. VIT B COMPLEX 100 COMBO NO.2 ORAL Take by mouth. PRN glimepiride (AMARYL) 4 mg tablet Take 4 mg by mouth twice daily with meals. tamsulosin ER (FLOMAX) 0.4 mg cap Take 1 capsule by mouth once daily. 90 capsule 3 magnesium oxide (MAG-OX) 400 mg (241.3 mg magnesium) tablet Take 1 tablet by mouth once daily. levothyroxine (SYNTHROID) 50 mcg tablet Take 50 mcg by mouth once daily. metFORMIN 1,000 mg ORAL tablet Take 1,000 mg by mouth twice daily with meals. FOL (more content not included)... Normal [facility] CNOVon 03-02-2025 CNOV Office Visit (AGCARDPOB) FLEX KLINE ([id number]) 1940 Date Time Provider Department 03/02/25 10:20 AM KWAN ESTRELLA AGCARDPOB During your visit today, we recorded the following information about you: Pulse Blood pressure Weight 69/minute 113/63 81.6 kg Kwan Estrella MD 03/02/2025 11:18 AM Signed [facility] [place] [facility] SECTION OF CARDIAC PACING and ELECTROPHYSIOLOGY OUTPATIENT VISIT DATE March 02, 2025 OUTPATIENT VISIT TYPE NEW PRIMARY CARE PHYSICIAN: Vincent Espinosa [address] [place] [address] REFERRING PHYSICIAN: Harjinder Jones [address], [address] [facility] [address] chief complaint on file. HISTORY OF PRESENT ILLNESS: Flex Kline is a 84 year old year old MALE and is referred for management of abnormal holter. He has a history of Htn, HLD DM2, Chronic inflam demyelinating polyneuropathy, Parkinson's disease, h.o shingles with residual pain and on Gabapentin now at a lower dose, hypertensive heart disease with severe 3V CAD s/p CABG n the past cardiac catheterization 2020 shows patent PEACE to the LAD with a patent vein graft to the circumflex, His vein graft to the right artery was completely occluded He is currently a resident at [facility]. Had a recent UTI in 10/2024, still on Farxiga (to avoid insulin), sent from hospital to rehab He is here with his and daughter. He says that he always had skipping beats no rapid palpitations He says that he has chest pressure many days, can last for hours, sometimes goes to left arm going on for few years He had an episode of low BP about a couple of months ago at the rehab facility and felt faint, His BP meds were adjusted. Able to walk with a walker slowly. Is mostly sedentary Father had atrial fibrillation ECG 11/29/23 - SR 77 bpm WA 210 QRS 102 QT/c 364 411 PVC inf axis LB (computer read PAC with aberrant conduction) 01/22/2025-02/05/2025 IRHYTHM FINDINGS: Patient had a min HR of 39 bpm, max HR of 203 bpm, and avg HR of 73 bpm. Predominant underlying rhythm was Sinus Rhythm. First Degree AV Block was present. Slight P wave morphology changes were noted. 21 NS VT, the run with the fastest interval lasting 10 beats with a max rate of 203 bpm (avg 133 bpm); the run with the fastest interval was also the longest. 593 SV, the run with the fastest interval lasting 8 mins 44 secs with a max rate of 135 bpm, the longest lasting 50 mins 39 secs with an avg rate of 115 bpm. Second Degree AV Block-Mobitz I (Wenckebach) was present. Supraventricular Tachycardia was detected within +/- 45 seconds of symptomatic patient event(s). Isolated SVEs were rare (<1.0%), SVE Couplets were rare (<1.0%), and SVE Triplets were rare (<1.0%). Isolated VEs were rare (<1.0%, [id number]), VE Couplets were rare (<1.0%, 63), and VE Triplets were rare (<1.0%, 19). Ventricular Bigeminy and Trigeminy were present. Difficulty discerning atrial activity making definitive diagnosis difficult to ascertain. NM SPECT 04/23/21- 1. SPECT Perfusion Study: Normal. 2. There is no scintigraphic evidence for inducible ischemia. 3. No evidence of scarred myocardium. 4. Left ventricle is normal in size. The left ventricle systolic function is normal. 5. Right ventricle is normal in size. The right ventricle systolic function is normal. 6. This is a low risk scan. 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) Coronary atherosclerosis Diabetes (HCC) Herpes zoster with other nervous system complications(053.19) Hyperlipidemia Hypertrophy of prostate without urinary obstruction and other lower urinary tract symptoms (LUTS) Hyposmolality and/or hyponatremia Intervertebral lumbar disc disorder with myelopathy, lumbar region Mononeuritis of unspecified site 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) Peripheral vascular disease, unspecified (HCC) Type II or unspecified type diabetes mellitus without mention of complication, uncontrolled Unspecified hereditary and idiopathic peripheral neuropathy PAST SURGICAL HISTORY Procedure Laterality Date COLONOSCOPY FLX DX W/COLLJ SPEC WHEN PFRMD 02/09/2013 Colonoscopy COLONOSCOPY FLX DX W/COLLJ SPEC WHEN PFRMD 02/24/16 Colonoscopy HEART SURGERY HX PAST SURGICAL HISTORY OF 2006 CABG Family History Problem Relation Age of Onset Ischemic Heart Disease Father Alzheimer's Disease Mother Ischemic Heart Disease Brother Hypertension No Family History Coronary Artery Disease No Family History Diabetes No Family History Thyroid No Family History Blood Disease No Family History Blood Clots No Family History Factor 5 Leiden No Family History Stroke No Family History Systemic Lupus Erythematosus No Fa (more content not included)... Normal [facility] ECG B/O W INTERP (MED OFFICE )on 03-02-2025 .Sinus rhythm 68 bpm WA 264ms First degree AVB QRS 96ms QT/c 398/423ms nl Qrs morphology and early repol change in 2.3.aVF [facility] Absolute lymphocyte countOrd ered By: Buzz Rainey on 03-01-2025 Lymphocytes Auto (Unsp spec) [#/Vol] 0.88 10*3/uL 0.83-4.51 [facility] Absolute neutrophil countOrd ered By: Buzz Rainey on 03-01-2025 Neutrophils (Bld) [#/Vol] 4.2 10*3/uL 2.0-7.7 [facility] Anion gap in Serum or Plasma Ordered By: Buzz Rainey on 03-01-2025 Anion gap [Moles/Vol] 13 mmol/L 5-15 [facility] Automated lymphocyte count a s percentage of total leukocytesOrdered By: Buzz Rainey on 03-01-2025 Lymphocytes/100 WBC Auto (Unsp spec) 14.9 % Low 19-41 [facility] BUN/creatinine ratioOrdered By: Buzz Rainey on 03-01-2025 Urea nitrogen/Creatinine [Mass ratio] 37.1 mg/mg High 10-20 [facility] Basophil percentageOrdered B y: Buzz Rainey on 03-01-2025 Basophils/100 WBC (Bld) 0.7 % 0-1 [facility] Carbon dioxide, total [Moles /volume] in Central venous bloodOrdered By: Buzz Rainey on 03-01-2025 CO2 [Moles/Vol] 21.5 mmol/L 21.0-32.0 [facility] Chloride assayOrdered By: Alexandra Rainey on 03-01-2025 Chloride [Moles/Vol] 104 mmol/L 98-108 [facility] Eosinophil percentageOrdered By: tamanna Rainey on 03-01-2025 Eosinophils/100 WBC (Bld) 3.7 % 0-5 [facility] Erythrocyte distribution wid th ratioOrdered By: yumikomendonesrtella Rainey on 03-01-2025 Erythrocyte distribution width (RBC) [Ratio] 11.9 % 11.6-14.6 [facility] Erythrocyte distribution wid th standard deviationOrdered By: yumikomendonestrella Rainey on 03-01-2025 Erythrocyte distribution width (RBC) [Ratio] 43.6 fl 35.1-43.9 [facility] Glomerular filtration rate ( GFR) estimation/1.73 sq m using serum, plasma, or whole bOrdered By: Buzz Rainey on 03-01-2025 GFR/1.73 sq M.predicted among non-blacks MDRD (S/P/Bld) [Vol rate/Area] 61 mL/min/{1.73_m2} >60 [facility] Comment on above: mL/min/1.73m2 CKD-EP I Creatinine Equation (2020) Hematocrit Auto (Bld) [Volum e fraction]Ordered By: Buzz Rainey on 03-01-2025 Hematocrit (Bld) [Volume fraction] 40.7 % 40-54 [facility] Hemoglobin measurementOrdere d By: Buzz Rainey on 03-01-2025 Hemoglobin (Bld) [Mass/Vol] 13.9 g/dL 13.0-16.5 [facility] Immature granulocytes/100 WB C Auto (Bld)Ordered By: Buzz Rainey on 03-01-2025 Immature granulocytes/100 WBC (Bld) 0.200 % 0.0-0.9 [facility] Comment on above: IG% - Immature Granu locytes (promyelocytes, myelocytes and metamyelocytes) > 1% indicates that a LEFT SHIFT is Present. MCV (mean corpuscular volume ) determinationOrdered By: Buzz Rainey on 03-01-2025 MCV (RBC) [Entitic vol] 99.5 fL High 80-94 [facility] Mean corpuscular hemoglobin (MCH) determinationOrdered By: Buzz Rainey on 03-01-2025 MCH (RBC) [Entitic mass] 34.0 pg High 27.0-32.0 [facility] Mean corpuscular hemoglobin concentration (MCHC) determinationOrdered By: Buzz Raieny on 03-01-2025 MCHC (RBC) [Mass/Vol] 34.2 g/dL 32-36 [facility] Mean platelet volume determi nationOrdered By: Buzz Rainey on 03-01-2025 Platelet mean volume (Bld) [Entitic vol] 10.4 fL 6.2-12.0 [facility] Monocyte percentageOrdered B y: Buzz Rainey on 03-01-2025 Monocytes/100 WBC (Bld) 8.5 % 0-10 [facility] Neutrophil percentageOrdered By: Buzz Rainey on 03-01-2025 Neutrophils/100 WBC (Bld) 72.0 % High 47-70 [facility] Nucleated red blood cell per centageOrdered By: Buzz Rainey on 03-01-2025 Nucleated RBC/100 WBC (Bld) [Ratio] 0 % 0-5 [facility] Platelet countOrdered By: Alexandra Rainey on 03-01-2025 Platelets (Bld) [#/Vol] 213 10*3/uL 150-450 [facility] Potassium measurement (mass/ volume)Ordered By: Buzz Rainey on 03-01-2025 Potassium (Unsp spec) [Mass/Vol] 4.5 mmol/L 3.3-5.1 [facility] RBC Auto (Bld) [#/Vol]Ordere d By: Buzz Rainey on 03-01-2025 RBC (Bld) [#/Vol] 4.09 10*6/uL Low 4.6-6.2 [facility] Serum creatinine measurement (mass/volume)Ordered By: Buzz Rainey on 03-01-2025 Creatinine [Mass/Vol] 1.19 mg/dL 0.70-1.20 [facility] Serum glucose measurement (m ass/volume)Ordered By: Buzz Rainey on 03-01-2025 Glucose [Mass/Vol] 152 mg/dL High 70-[address] [facility] Serum or plasma calcium jesenia urement (mass/volume)Ordered By: Buzz Rainey on 03-01-2025 Calcium [Mass/Vol] 9.5 mg/dL 7.6-11.[address] [facility] Serum or plasma urea nitroge n measurement (mass/volume)Ordered By: Buzz Rainey on 03-01-2025 Urea nitrogen [Mass/Vol] 44 mg/dL High 4-19 [facility] Sodium levelOrdered By: Otilia Rainey on 03-01-2025 Sodium [Moles/Vol] 138 mmol/L 133-[address] [facility] White blood cell (WBC) count Ordered By: Buzz Rainey on 03-01-2025 WBC (Bld) [#/Vol] 5.9 10*3/uL 4.4-11.[address] [facility] Bilirubin Test strip Ql (U)O rdered By: Buzz Rainey on 02-28-2025 Bilirubin Ql (U) Negative Negative [facility] Ketones Test strip Ql (U)Ord ered By: Buzz Rainey on 02-28-2025 Ketones Ql (U) Negative Negative [facility] Nitrite Test strip Ql (U)Ord ered By: Buzz Rainey on 02-28-2025 Nitrite Ql (U) Negative Negative [facility] Protein Test strip Ql (U)Ord ered By: Buzz Rainey on 02-28-2025 Protein Ql (U) 15 mg/dl High Negative [facility] Urine clarityOrdered By: Franklin Rainey on 02-28-2025 Clarity (U) Clear Clear [facility] Urine color determinationOrd ered By: Buzz Rainey on 02-28-2025 Color (U) Straw Yellow [facility] Urine cultureOrdered By: Franklin Rainey on 02-28-2025 Bacteria identified Cx Nom (U) Positive Abnormal [facility] Urine glucose detectionOrder ed By: Buzz Rainey on 02-28-2025 Glucose Ql (U) 1000 mg/dl High Normal [facility] Urine leukocyte esterase det ection by dipstickOrdered By: Buzz Rainey on 02-28-2025 Leukocyte esterase Test strip Ql (U) 25 /ul High Negative [facility] Urine pHOrdered By: Mallorie Rainey on 02-28-2025 pH (U) 6.0 [pH] 5.0 - 8.0 [facility] Urine specific gravity measu rementOrdered By: Buzz Rainey on 02-28-2025 Specific gravity (U) [Rel density] 1.020 1.002-1.030 [facility] Urine urobilinogen measureme ntOrdered By: Buzz Rainey on 02-28-2025 Urobilinogen Ql (U) Normal mg/dl Normal [facility] Endocrinology Visit Reporton 02-27-2025 Endocrinology Visit Report [facility] [address] [place] [address] OFFICE VISIT Date of Service: 02/27/25 MR#: [id number] Acct: [id number] Name: FLEX KLINE Rep #: [id number] : 1940 Provider: Arina Renee Age/Sex: 84/M [place] [facility] [place] Status: Signed Intake Vital Signs 11/30/24 08:36 02/27/25 10:56 Height 5 ft 11 in 5 ft 11 in BP 168/78 H Blood Pressure Location Lt brachial Position Sitting Pulse 62 Pulse Source Monitor Pulse Oximetry (%) 96 Oxygen Delivery Method room air Intake Visit Reasons: 21 M FU RS 10/26 CX 10/31 Chief Complaint: Diabetes Is patient in pain?: Yes Allergies Beta-Blockers (Beta-Adrenergic Bloc Allergy (Severe, Verified 02/27/25 11:01) ANGIOEDEMA Medications ???Medication ???Instructions ???Recorded ???Confirmed ???Type metformin 1,000 mg tablet 1,000 mg PO BIDCM blood sugar 10/2302/27/25 History tamsulosin 0.4 mg capsule 0.4 mg PO DAILY prostate 02/28/16 02/27/25 History clopidogrel 75 mg tablet 75 mg PO DAILY Heart 07/20/1807/16 History aspirin 81 mg tablet,delayed 81 mg PO DAILY@0800 HEART HEALTH 0 07/28/18 02/27/25 History release nitroglycerin 0.4 mg sublingual 0.4 mg PO PRN PRN CHEST PAIN 07/2802/27/25 History tablet atorvastatin 80 mg tablet 80 mg PO QHS CHOLESTEROL 06/20/19 02/27/25 History magnesium oxide 400 mg (241.3 mg 800 mg PO DAILY SUPPLEMENT 1 02/27/25 History magnesium) tablet levothyroxine 50 mcg tablet 50 mcg PO DAILY THYROID 06/13/21 0 02/27/25 History Farxiga 5 mg tablet (dapagliflozin 5 mg PO DAILY DM #90 tabs 02/27/25 Rx propanediol) acetaminophen 325 mg tablet 650 mg (2 x 325 mg) PO Q6H PRN PRN 11/01/24 02/27/25 Rx Pain 1-10 Or Fever >100.7 #0 tabs Saccharomyces boulardii 250 mg 250 mg PO QDAY 11/08/24 02/27/25 H istory capsule (Daily Probiotic (S. boulardii)) carbidopa 25 mg-levodopa 100 mg 2 tab PO TID PARKINSONS 11/08/24 0 02/27/25 History disintegrating tablet cholecalciferol (vitamin D3) 25 25 mcg PO BID 11/08/24 02/27/25 Hi story mcg (1,000 unit) capsule folic acid 800 mcg tablet 0.8 mg PO QDAY SUPPLMENT 11/08/24 02/27/25 History glimepiride 2 mg tablet 4 mg PO BID blood sugar 11/08/24 0 02/27/25 History gabapentin 600 mg tablet 600 mg PO BID 11/30/24 02/27/25 Hi story isosorbide mononitrate 30 mg 30 mg PO QDAY #90 tabs 11/30/24 Rx tablet,extended release 24 hr lisinopril 10 mg tablet 5 mg PO DAILY blood pressure 02/2702/27/25 History Have you fallen in the past year?: Yes PFSH Medical History Hyposmolality and/or hyponatremia Mononeuritis of unspecified site Pressure injury of right ankle, stage 2 BMI 26.0-26.9,adult Type 2 diabetes mellitus with diabetic peripheral angiopathy without gangrene, without long-term current use of insulin Slow transit constipation Other and unspecified hyperlipidemia Essential hypertension Proteinuria, unspecified Acquired hypothyroidism Polyneuropathy associated with underlying disease Parkinson's disease with dyskinesia and fluctuating manifestations Aortic atherosclerosis Retinopathy due to secondary diabetes Atherosclerotic heart disease of [place] coronary artery with other forms of angina pectoris Mild episode of recurrent major depressive disorder Pulmonary hypertension Shingles PVD (peripheral vascular disease) Type 2 diabetes mellitus Depression CAD (coronary artery disease) Diabetes GERD (gastroesophageal reflux disease) Cataract 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 heart disease of [place] coronary artery without angina pectoris Parkinson's disease Essential tremor CIDP (chronic inflammatory demyelinating polyneuropathy) Diabetic neuropathy HTN (hypertension) HLD (hyperlipidemia) Type II diabetes mellitus, uncontrolled History of chest pain Surgical History Postsurgical 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 Normal [facility] Absolute lymphocyte countOrd ered By: Buzz Rainey on 01-31-2025 Lymphocytes Auto (Unsp spec) [#/Vol] 0.83 10*3/uL 0.83-4.51 [facility] Absolute neutrophil countOrd ered By: Buzz Rainey on 01-31-2025 Neutrophils (Bld) [#/Vol] 3.3 10*3/uL 2.0-7.7 [facility] Anion gap in Serum or Plasma Ordered By: Buzz Rainey on 01-31-2025 Anion gap [Moles/Vol] 14 mmol/L 5-15 [facility] Automated lymphocyte count a s percentage of total leukocytesOrdered By: Buzz Rainey on 01-31-2025 Lymphocytes/100 WBC Auto (Unsp spec) 16.0 % Low 19-41 [facility] BUN/creatinine ratioOrdered By: Buzz Rainey on 01-31-2025 Urea nitrogen/Creatinine [Mass ratio] 28.0 mg/mg High 10-20 [facility] Basophil percentageOrdered B y: Buzz Rainey on 01-31-2025 Basophils/100 WBC (Bld) 0.4 % 0-1 [facility] Bilirubin directOrdered By: Buzz Rainey on 01-31-2025 Bilirubin.direct [Mass/Vol] 0.22 mg/dL 0.00-0.30 [facility] Bilirubin, totalOrdered By: Buzz Rainey on 01-31-2025 Bilirubin [Mass/Vol] 0.47 mg/dL 0.00-1.30 [facility] Carbon dioxide, total [Moles /volume] in Central venous bloodOrdered By: Buzz Rainey on 01-31-2025 CO2 [Moles/Vol] 21.6 mmol/L 21.0-32.0 [facility] Chloride assayOrdered By: Alexandra Rainey on 01-31-2025 Chloride [Moles/Vol] 101 mmol/L 98-108 [facility] Eosinophil percentageOrdered By: Buzz Rainey on 01-31-2025 Eosinophils/100 WBC (Bld) 6.2 % High 0-5 [facility] Erythrocyte distribution wid th (RBC) [Ratio]Ordered By: Buzz Rainey on 01-31-2025 Erythrocyte distribution width (RBC) [Entitic vol] 45.0 fL High 35.1-43.9 [facility] Erythrocyte distribution wid th ratioOrdered By: Buzz Rainey on 01-31-2025 Erythrocyte distribution width (RBC) [Ratio] 12.1 % 11.6-14.6 [facility] Erythrocyte distribution wid th standard deviationOrdered By: Buzz Rainey on 01-31-2025 Erythrocyte distribution width (RBC) [Ratio] 45.0 fl High 35.1-43.9 [facility] GFR/1.73 sq M.predicted [place] g non-blacks MDRD (S/P/Bld) [Vol rate/Area]Ordered By: Buzz Rainey on 01-31-2025 Estimated GFR (MDRD) Non-Af Amer 49 Low >60 [facility] Comment on above: mL/min/1.73m2 CKD-EP I Creatinine Equation (2020) Glomerular filtration rate ( GFR) estimation/1.73 sq m using serum, plasma, or whole bOrdered By: Buzz Rainey on 01-31-2025 GFR/1.73 sq M.predicted among non-blacks MDRD (S/P/Bld) [Vol rate/Area] 49 mL/min/{1.73_m2} Low >60 [facility] Comment on above: mL/min/1.73m2 CKD-EP I Creatinine Equation (2020) Hematocrit Auto (Bld) [Volum e fraction]Ordered By: Buzz Rainey on 01-31-2025 Hematocrit (Bld) [Volume fraction] 39.9 % Low 40-54 [facility] Hemoglobin A1c percentageOrd ered By: Buzz Rainey on 01-31-2025 HbA1c (Bld) [Mass fraction] 7.9 % >5.7 [facility] Hemoglobin measurementOrdere d By: Buzz Rainey on 01-31-2025 Hemoglobin (Bld) [Mass/Vol] 13.8 g/dL 13.0-16.5 [facility] Immature granulocytes/100 WB C Auto (Bld)Ordered By: Buzz Rainey on 01-31-2025 Immature granulocytes/100 WBC (Bld) 0.200 % 0.0-0.9 [facility] Comment on above: IG% - Immature Granu locytes (promyelocytes, myelocytes and metamyelocytes) > 1% indicates that a LEFT SHIFT is Present. Laboratory - Chemistry and C hemistry - challengeOrdered By: Buzz Rainey on 01-31-2025 AST [Catalytic activity/Vol] 32 U/L <38 [facility] Lymphocytes Auto (Unsp spec) [#/Vol]Ordered By: Buzz Rainey on 01-31-2025 Lymphocytes (Bld) [#/Vol] 0.83 10*3/uL 0.83-4.51 [facility] Lymphocytes/100 WBC Auto (Un sp spec)Ordered By: Buzz Rainey on 01-31-2025 Lymphocytes/100 WBC (Bld) 16.0 % Low 19-41 [facility] MCV (mean corpuscular volume ) determinationOrdered By: Buzz Rainey on 01-31-2025 MCV (RBC) [Entitic vol] 99.8 fL High 80-94 [facility] Magnesium (Unsp spec) [Mass/ Vol]Ordered By: Buzz Rainey on 01-31-2025 Magnesium [Mass/Vol] 2.2 mg/dL 1.5-2.2 [facility] Magnesium measurement (mass/ volume)Ordered By: Buzz Rainey on 01-31-2025 Magnesium (Unsp spec) [Mass/Vol] 2.2 mg/dL 1.5-2.2 [facility] Mean corpuscular hemoglobin (MCH) determinationOrdered By: Buzz Rainey on 01-31-2025 MCH (RBC) [Entitic mass] 34.5 pg High 27.0-32.0 [facility] Mean corpuscular hemoglobin concentration (MCHC) determinationOrdered By: Buzz Rainey on 01-31-2025 MCHC (RBC) [Mass/Vol] 34.6 g/dL 32-36 [facility] Mean platelet volume determi nationOrdered By: Buzz Brainmklana on 01-31-2025 Platelet mean volume (Bld) [Entitic vol] 10.6 fL 6.2-12.0 [facility] Monocyte percentageOrdered B y: Eftamanna Monreallana on 01-31-2025 Monocytes/100 WBC (Bld) 12.7 % High 0-10 [facility] Neutrophil percentageOrdered By: Eftamanna Brainmke on 01-31-2025 Neutrophils/100 WBC (Bld) 64.5 % 47-70 [facility] Nucleated red blood cell per centageOrdered By: Alexandrayumikoarthur Brainmklana on 01-31-2025 Nucleated RBC/100 WBC (Bld) [Ratio] 0 % 0-5 [facility] Platelet countOrdered By: Alexandra tamanna Brainmklana on 01-31-2025 Platelets (Bld) [#/Vol] 218 10*3/uL 150-450 [facility] Potassium (Unsp spec) [Mass/ Vol]Ordered By: Otiliaarthur Brainmklana on 01-31-2025 Potassium [Moles/Vol] 5.3 mmol/L High 3.3-5.1 [facility] Potassium measurement (mass/ volume)Ordered By: Buzz De La Pazmklana on 01-31-2025 Potassium (Unsp spec) [Mass/Vol] 5.3 mmol/L High 3.3-5.1 [facility] RBC Auto (Bld) [#/Vol]Ordere d By: Alexandratamanna Brainmklana on 01-31-2025 RBC (Bld) [#/Vol] 4.00 10*6/uL Low 4.6-6.2 [facility] Serum creatinine measurement (mass/volume)Ordered By: Otiliahueyestrella De La Pazmklana on 01-31-2025 Creatinine [Mass/Vol] 1.43 mg/dL High 0.70-1.20 [facility] Serum globulin measurementOr dered By: Buzz Rainey on 01-31-2025 Globulin (S) [Mass/Vol] 2.8 g/dL 2.2-4.2 [facility] Serum glucose measurement (m ass/volume)Ordered By: Buzz Rainey on 01-31-2025 Glucose [Mass/Vol] 265 mg/dL High 70-[address] [facility] Serum or plasma alanine nix otransferase (ALT) measurementOrdered By: Buzz Rainey on 01-31-2025 ALT [Catalytic activity/Vol] 35 U/L <47 [facility] Serum or plasma albumin jesenia urement (mass/volume)Ordered By: Buzz Rainey on 01-31-2025 Albumin [Mass/Vol] 4.3 g/dL 3.4-4.[address] [facility] Serum or plasma alkaline radha sphatase measurementOrdered By: Buzz Rainey on 01-31-2025 ALP [Catalytic activity/Vol] 83 U/L 40-129 [facility] Serum or plasma calcium jesenia urement (mass/volume)Ordered By: Buzz Rainey on 01-31-2025 Calcium [Mass/Vol] 9.3 mg/dL 7.6-11.[address] [facility] Serum or plasma urea nitroge n measurement (mass/volume)Ordered By: Buzz Rainey on 01-31-2025 Urea nitrogen [Mass/Vol] 40 mg/dL High 4-19 [facility] Sodium levelOrdered By: Otilia Rainey on 01-31-2025 Sodium [Moles/Vol] 137 mmol/L 133-[address] [facility] Total proteinOrdered By: Franklin Rainey on 01-31-2025 Protein [Mass/Vol] 7.1 g/dL 5.9-8.[address] [facility] Vitamin D, 25-hydroxyOrdered By: Buzz Rainey on 01-31-2025 Vitamin D 25-Hydroxy 38.8 ng/mL 30-100 [facility] Comment on above: Vitamin D StatusDefi ciency: <20 ng/mL (50nmol/L)Insufficiency: 20-30 ng/mL (50-75 nmol/L)Sufficiency: 30-100 ng/mL (75-250 nmol/L)Toxicity: >100 ng/mL (>250 nmol/L) White blood cell (WBC) count Ordered By: Buzz Rainey on 01-31-2025 WBC (Bld) [#/Vol] 5.2 10*3/uL 4.4-11.[address] [facility] CBC panel Auto (Bld)on 01-22 Erythrocyte distribution width (RBC) [Ratio] 12.4 % 11.5 - 15.0 % [facility] Hematocrit (Bld) [Volume fraction] 37.7 % Low 39.0 - 51.0 % [facility] Hemoglobin (Bld) [Mass/Vol] 12.8 g/dL Low 13.0 - 17.0 g/dL [facility] Interpretation and review of laboratory results Abnormal [facility] MCH (RBC) [Entitic mass] 33.3 pg 26.0 - 34.0 pg [facility] MCHC (RBC) [Mass/Vol] 34 g/dL 30.5 - 36.0 g/dL [facility] MCV (RBC) [Entitic vol] 98.2 fL 80.0 - 100.0 fL [facility] Nucleated RBC (Bld) [#/Vol] NINF [facility] Platelet mean volume (Bld) [Entitic vol] 9.4 fL 9.0 - 12.7 fL [facility] Platelets (Bld) [#/Vol] 216 10*3/uL [facility] RBC (Bld) [#/Vol] 3.84 10*6/uL Low 4.20 - 6.0 0 m/uL [facility] WBC (Bld) [#/Vol] 5.09 10*3/uL [facility] Erythrocyte distribution width (RBC) [Ratio] 12.4 % Normal 11.5-15.0 [facility] Comment on above: Order Comment: Krystyna funk Type: BLOOD SPECIMEN Ordering Facility: [facility] Address: [address] [place] [address] Performed By: #### 5 8410-2 #### [facility] CLIA [id number] [address] [place], [place] [id number] [place] Hematocrit (Bld) [Volume fraction] 37.7 % Low 39.0-51.0 [facility] Comment on above: Order Comment: Krystyna funk Type: BLOOD SPECIMEN Ordering Facility: [facility] Address: [address] [place] [address] Performed By: #### 5 8410-2 #### [facility] CLIA [id number] [address] [place] [address] [place] [facility] Hemoglobin (Bld) [Mass/Vol] 12.8 g/dL Low 13.0-17.0 [facility] Comment on above: Order Comment: Speci men Type: BLOOD SPECIMEN Ordering Facility: [facility] Address: [address] [place] [address] Performed By: #### 5 8410-2 #### [id number] [address] [place] [address] [place] MCH (RBC) [Entitic mass] 33.3 pg Normal 26.0-34.0 [facility] Comment on above: Order Comment: Speci men Type: BLOOD SPECIMEN Ordering Facility: [facility] Address: [address] [place] [address] Performed By: #### 5 8410-2 #### [facility] [id number] [address] [place] [address] [place] MCHC (RBC) [Mass/Vol] 34.0 g/dL Normal 30.5-36.0 [facility] Comment on above: Order Comment: Speci men Type: BLOOD SPECIMEN Ordering Facility: [facility] Address: [address] [place] [address] Performed By: #### 5 8410-2 #### [facility] [id number] [address] [place] [address] [place] MCV (RBC) [Entitic vol] 98.2 fL Normal 80.0-100.0 [facility] Comment on above: Order Comment: Speci men Type: BLOOD SPECIMEN Ordering Facility: [facility] Address: [address] [place] [address] Performed By: #### 5 8410-2 #### [facility] CLIA [id number] [address] [place] [address] [place] Nucleated RBC (Bld) [#/Vol] 10*3/uL Normal <0.01 [facility] Comment on above: Order Comment: Speci men Type: BLOOD SPECIMEN Ordering Facility: [facility] Address: [address] [place] [address] Performed By: #### 5 8410-2 #### [facility] CLIA [id number] [address] [place] [address] [place] Platelet mean volume (Bld) [Entitic vol] 9.4 fL Normal 9.0-12.7 [facility] Comment on above: Order Comment: Speci men Type: BLOOD SPECIMEN Ordering Facility: [facility] Address: [address] [place] [address] Performed By: #### 5 8410-2 #### [facility] CLIA [id number] [address] [place] [address] [place] Platelets (Bld) [#/Vol] 216 10*3/uL Normal 150-400 [facility] Comment on above: Order Comment: Speci men Type: BLOOD SPECIMEN Ordering Facility: [facility] Address: [address] [place] [address] Performed By: #### 5 8410-2 #### [facility] CLIA [id number] [address] [place] [address] [place] RBC (Bld) [#/Vol] 3.84 10*6/uL Low 4.20-6.00 [facility] Comment on above: Order Comment: Speci men Type: BLOOD SPECIMEN Ordering Facility: [facility] Address: [address] [place] [address] Performed By: #### 5 8410-2 #### [facility] CLIA [id number] [address] [place] [address] [place] WBC (Bld) [#/Vol] 5.09 10*3/uL Normal 3.70-11.00 [facility] Comment on above: Order Comment: Speci men Type: BLOOD SPECIMEN Ordering Facility: [facility] Address: [address] [place] [id number] Performed By: #### 5 8410-2 #### [facility] CLIA [id number] [address] [place] [address] CNOVon 01-22-2025 CNOV Office Visit (CARDWS ) FLEX KLINE ([id number]) 1940 M Date Time Provider Department 01/22/25 1:40 PM HARJINDER JONES During your visit today, we recorded the following information about you: Pulse Respiration Blood pressure Weight 91/minute 14/minute 156/70 79.8 kg Height 1.765 m Harjinder Jones MD 01/22/2025 2:39 PM Signed Harjinder Jones MD Interventional Cardiology [address] [place] [phone] Chief Complaint Patient presents with: Follow Up: 6 month follow up HISTORY OF PRESENT ILLNESS: Mr. 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 underwent bypass surgery in the past cardiac catheterization 2020 shows patent PEACE to the LAD with a patent vein graft to the circumflex His vein graft to the right artery was completely occluded He is doing very well clinically recently admitted to the hospital with urinary tract infection he complained of bilateral leg swelling shortness of breath and recurrent chest pain not exertional Medical examination likely he is in heart failure with gallop rhythms and bilateral mild swelling Cardiac Risk Factors age (male over 45, female over 55), hyperlipidemia, diabetes, hypertension, family history of CAD 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) Type II or unspecified type diabetes mellitus without mention of complication, uncontrolled Unspecified hereditary and idiopathic peripheral neuropathy PAST SURGICAL HISTORY Procedure Laterality Date COLONOSCOPY FLX DX W/COLLJ SPEC WHEN PFRMD 02/09/2013 Colonoscopy COLONOSCOPY FLX DX W/COLLJ SPEC WHEN PFRMD 02/24/16 Colonoscopy HEART SURGERY HX PAST SURGICAL HISTORY OF 2006 CABG FAMILY HISTORY Problem Relation Age of Onset Ischemic Heart Disease Father Alzheimer's Disease Mother Ischemic Heart Disease Brother Hypertension No Family History Coronary Artery Disease No Family History Diabetes No Family History Thyroid No Family History Blood Disease No Family History Blood Clots No Family History Factor 5 Leiden No Family History Stroke No Family History Systemic Lupus Erythematosus No Family History DVT No Family History Multiple Sclerosis No Family History Bipolar disorder No Family History Schizophrenia No Family History Dementia No Family History Aneurysm No Family History COPD No Family History Social History Tobacco Use Smoking status: Never Smokeless tobacco: Never Substance Use Topics Alcohol use: Never Drug use: No ALLERGIES Allergen Reactions Beta Blockers [Beta* Shortness of Breath Tongue swelling Medications: Current Outpatient Medications Medication Sig Dispense Refill nitroglycerin sublingual (NITROSTAT) 0.4 mg SL tablet Dissolve 1 tablet under the tongue as needed. FOR CHEST PAIN. IF NO RELIEF CALL 911 30 tablet 3 WALKER ROLLATOR SEAT WITH 6 WHEELS - RED Use as directed. 1 Each 0 atorvastatin (LIPITOR) 80 mg tablet Take 0.5 tablets by mouth once daily. 90 tablet 3 aspirin 325 mg tablet Take 325 mg by mouth once daily. cholecalciferol, vitamin D3, (VITAMIN D3 ORAL) Take by mouth. VIT B COMPLEX 100 COMBO NO.2 ORAL Take by mouth. PRN glimepiride (AMARYL) 4 mg tablet Take 4 mg by mouth twice daily with meals. tamsulosin ER (FLOMAX) 0.4 mg cap Take 1 capsule by mouth once daily. 90 capsule 3 magnesium oxide (MAG-OX) 400 mg (241.3 mg magnesium) tablet Take 1 tablet by mouth once daily. levothyroxine (SYNTHROID) 50 mcg tablet Take 50 mcg by mouth once daily. metFORMIN 1,000 mg ORAL tablet Take 1,000 mg by mouth twice daily with meals. furosemide (LASIX) 20 mg tablet Take 1 tablet by mouth every 48 hours. 45 tablet 2 lisinopril (ZESTRIL) 5 mg tablet Take 1 tablet by mouth once daily. 30 tablet 3 gabapentin (NEURONTIN) 800 mg tablet Take 1 tablet by mouth three times a day for 90 days. 2 carbidopa (LODOSYN) 25 mg tab Take 1 tablet by mouth three times daily. With every Sinemet dose 90 tablet 11 carbidopa-levodopa (SINEMET 25-100) 25-100 mg per tablet Take 2 tablets by mouth three times daily. 540 tablet 3 FARXIGA 5 mg tablet Take 5 mg by mouth once daily. B infantis/B ani/B tori/B bifid (PROBIOTIC 4X ORAL) Take by mouth. FOLIC ACID 800 MCG TAB Take one(1) (more content not included)... Normal [facility] Comprehensive metabolic 2000 panelOrdered By: Jasmina Young on 01-22-2025 Albumin [Mass/Vol] 4.1 g/dL 3.9 - 4.9 g/dL [facility] ALP [Catalytic activity/Vol] 76 U/L 38 - 113 U/L [facility] ALT [Catalytic activity/Vol] 20 U/L 10 - 54 U/L [facility] Anion gap [Moles/Vol] 9 mmol/L 8 - 15 mmol/L [facility] AST [Catalytic activity/Vol] 19 U/L 14 - 40 U/L [facility] Bilirubin [Mass/Vol] 0.6 mg/dL 0.2 - 1 .3 mg/dL [facility] Calcium [Mass/Vol] 9.3 mg/dL 8.5 - 10. 2 mg/dL [facility] Chloride [Moles/Vol] 103 mmol/L 98 - 10 7 mmol/L [facility] CO2 [Moles/Vol] 27 mmol/L 22 - 30 mmol/L [facility] Creatinine [Mass/Vol] 1.32 mg/dL High 0.73 - 1.22 mg/dL [facility] GFR/1.73 sq M.predicted among non-blacks MDRD (S/P/Bld) [Vol rate/Area] 54 mL/min/{1.73_m2} Low - PINF [facility] Comment on above: Estimated Glomerular Filtration Rate (eGFR) is calculated using the 2020 CKD-EPI creatinine equation. This equation utilizes serum creatinine, sex, and age as parameters. The creatinine assay has traceable calibration to isotope dilution-mass spectrometry. Refer to KDIGO guidelines for clinical interpretation. In patients with unstable renal function, e.g. those with acute kidney injury, the eGFR may not accurately reflect actual GFR. Glucose [Mass/Vol] 171 mg/dL High 74 - 99 mg/dL [facility] Comment on above: The [place] Diab[employer] s Association (ADA) provides guidance for cutoff values for fasting glucose and random glucose. The ADA defines fasting as no caloric intake for at least 8 hours. Fasting plasma glucose results between 100 to 125 mg/dL indicate increased risk for diabetes (prediabetes). Fasting plasma glucose results greater than or equal to 126 mg/dL meet the criteria for diagnosis of diabetes. In the absence of unequivocal hyperglycemia, results should be confirmed by repeat testing. In a patient with classic symptoms of hyperglycemia or hyperglycemic crisis, random plasma glucose results greater than or equal to 200 mg/dL meet the criteria for diagnosis of diabetes. Reference: Standards of Medical Care in Diabetes 2016, [place] [employer]. Diabetes Care. 2016.39(Suppl 1). Interpretation and review of laboratory results Abnormal [facility] Potassium [Moles/Vol] 5.1 mmol/L 3.7 - 5.1 mmol/L [facility] Protein [Mass/Vol] 6.7 g/dL 6.3 - 8.0 g/dL [facility] Sodium [Moles/Vol] 139 mmol/L 136 - 144 mmol/L [facility] Urea nitrogen [Mass/Vol] 30 mg/dL High 9 - 24 mg/dL [facility] Comprehensive metabolic 2000 panelon 01-22-2025 Albumin [Mass/Vol] 4.1 g/dL Normal 3.9-4.9 [facility] Comment on above: Order Comment: Krystyna funk Type: BLOOD SPECIMEN Ordering Facility: [facility] Address: [address] [place] [address] [place] [id number] Performed By: #### 2 4323-8 #### [facility] [id number] [address] [place] [address] [place] ALP [Catalytic activity/Vol] 76 U/L Normal 38-113 [facility] Comment on above: Order Comment: Speci men Type: BLOOD SPECIMEN Ordering Facility: [facility] Address: [address] [place] [address] Performed By: #### 2 4323-8 #### [facility] CLIA [id number] [address] [place] [address] [place] ALT [Catalytic activity/Vol] 20 U/L Normal 10-54 [facility] Comment on above: Order Comment: Speci men Type: BLOOD SPECIMEN Ordering Facility: [facility] Address: [address] [place] [address] Performed By: #### 2 4323-8 #### [facility] CLIA [id number] [address] [place] [address] [place] Anion gap [Moles/Vol] 9 mmol/L Normal 8-15 [facility] Comment on above: Order Comment: Speci men Type: BLOOD SPECIMEN Ordering Facility: [facility] Address: [address] [place] [address] Performed By: #### 2 4323-8 #### [facility] CLIA [id number] [address] [place] [address] [place] AST [Catalytic activity/Vol] 19 U/L Normal 14-40 [facility] Comment on above: Order Comment: Speci men Type: BLOOD SPECIMEN Ordering Facility: [facility] Address: [address] [place] [address] Performed By: #### 2 4323-8 #### [facility] CLIA [id number] [address] [place] [address] [place] Bilirubin [Mass/Vol] 0.6 mg/dL Normal 0.2-1.3 [facility] Comment on above: Order Comment: Speci men Type: BLOOD SPECIMEN Ordering Facility: [facility] Address: [address] [place] [address] Performed By: #### 2 4323-8 #### [facility] CLIA [id number] [address] [place] [address] [place] Calcium [Mass/Vol] 9.3 mg/dL Normal 8.5-10.2 [facility] Comment on above: Order Comment: Speci men Type: BLOOD SPECIMEN Ordering Facility: [facility] Address: [address] [place] [address] Performed By: #### 2 4323-8 #### [facility] CLIA [id number] [address] [place] [address] [place] Chloride [Moles/Vol] 103 mmol/L Normal 98-107 [facility] Comment on above: Order Comment: Speci men Type: BLOOD SPECIMEN Ordering Facility: [facility] Address: [address] [place] [id number] Performed By: #### 2 4323-8 #### [facility] CLIA [id number] [address] [place] [address] [place] CO2 [Moles/Vol] 27 mmol/L Normal 22-30 [facility] Comment on above: Order Comment: Speci men Type: BLOOD SPECIMEN Ordering Facility: [facility] Address: [address] [place] [address] Performed By: #### 2 4323-8 #### [facility] CLIA [id number] [address] [place] [address] [place] Creatinine [Mass/Vol] 1.32 mg/dL High 0.73-1.22 [facility] Comment on above: Order Comment: Speci men Type: BLOOD SPECIMEN Ordering Facility: [facility] Address: [address] [place] [address] Performed By: #### 2 4323-8 #### [facility] CLIA [id number] [address] [place] [address] [place] Creatinine and Glomerular filtration rate.predicted panel (S/P/Bld) 54 mL/min/1.73m??? Low >=60 [facility] Comment on above: Order Comment: Krystyna funk Type: BLOOD SPECIMEN Ordering Facility: [facility] Address: [address] [place] [address] Result Comment: Beatrice mated Glomerular Filtration Rate (eGFR) is calculated using the 2020 CKD-EPI creatinine equation. This equation utilizes serum creatinine, sex, and age as parameters. The creatinine assay has traceable calibration to isotope dilution-mass spectrometry. Refer to KDIGO guidelines for clinical interpretation. In patients with unstable renal function, e.g. those with acute kidney injury, the eGFR may not accurately reflect actual GFR. Performed By: #### 2 4323-8 #### [facility] CLIA [id number] [address] [place] [address] [place] Glucose [Mass/Vol] 171 mg/dL High 74-99 [facility] Comment on above: Order Comment: Krystyna funk Type: BLOOD SPECIMEN Ordering Facility: [facility] Address: [address] [place] [address] Result Comment: The [place] Diabetes Association (ADA) provides guidance for cutoff values for fasting glucose and random glucose. The ADA defines fasting as no caloric intake for at least 8 hours. Fasting plasma glucose results between 100 to 125 mg/dL indicate increased risk for diabetes (prediabetes). Fasting plasma glucose results greater than or equal to 126 mg/dL meet the criteria for diagnosis of diabetes. In the absence of unequivocal hyperglycemia, results should be confirmed by repeat testing. In a patient with classic symptoms of hyperglycemia or hyperglycemic crisis, random plasma glucose results greater than or equal to 200 mg/dL meet the criteria for diagnosis of diabetes. Reference: Standards of Medical Care in Diabetes 2016, [place] [employer]. Diabetes Care. 2016.39(Suppl 1). Performed By: #### 2 4323-8 #### [facility] CLIA [id number] [address] [place] [address] [place] Potassium [Moles/Vol] 5.1 mmol/L Normal 3.7-5.1 [facility] Comment on above: Order Comment: Speci men Type: BLOOD SPECIMEN Ordering Facility: [facility] Address: [address] [place] [address] Performed By: #### 2 4323-8 #### [facility] CLIA [id number] [address] [place] [address] [place] Protein [Mass/Vol] 6.7 g/dL Normal 6.3-8.0 [facility] Comment on above: Order Comment: Speci men Type: BLOOD SPECIMEN Ordering Facility: [facility] Address: [address] [place] [address] Performed By: #### 2 4323-8 #### [facility] CLIA [id number] [address] [place] [address] [place] Sodium [Moles/Vol] 139 mmol/L Normal 136-144 [facility] Comment on above: Order Comment: Speci men Type: BLOOD SPECIMEN Ordering Facility: [facility] Address: [address] [place] [address] Performed By: #### 2 4323-8 #### [id number] [address] [place] [address] [place] Urea nitrogen [Mass/Vol] 30 mg/dL High 9-24 [facility] Comment on above: Order Comment: Speci men Type: BLOOD SPECIMEN Ordering Facility: [facility] Address: [address] [place], [place] [id number] Performed By: #### 2 4323-8 #### [facility] CLIA [id number] [address] [place] [address] [place] NT-proBNP [facility] 01-22 Natriuretic peptide.B prohormone N-Terminal [Mass/Vol] 437 pg/mL Normal <450 [facility] Comment on above: Order Comment: Speci men Type: BLOOD SPECIMEN Ordering Facility: [facility] Address: [address] [place] [id number] Performed By: #### 3 3762-6, 3016-3 #### [facility] CLIA [id number] [address] [place] TSH SerPl-aCncon 01-22-2025 TSH Qn 5.250 m[IU]/L High 0.270-4.200 [facility] Comment on above: Order Comment: Speci men Type: BLOOD SPECIMEN Ordering Facility: [facility] Address: [address] [place] [address] Performed By: #### 3 3762-6, 3016-3 #### [facility] CLIA [id number] [address] OF [facility] Absolute lymphocyte countOrd ered By: Buzz Rainey on 01-04-2025 Lymphocytes Auto (Unsp spec) [#/Vol] 0.86 10*3/uL 0.83-4.51 [facility] Absolute neutrophil countOrd ered By: Buzz Rainey on 01-04-2025 Neutrophils (Bld) [#/Vol] 2.9 10*3/uL 2.0-7.7 [facility] Automated lymphocyte count a s percentage of total leukocytesOrdered By: Buzz Rainey on 01-04-2025 Lymphocytes/100 WBC Auto (Unsp spec) 17.8 % Low 19-41 [facility] Basophil percentageOrdered B y: Buzz Rainey on 01-04-2025 Basophils/100 WBC (Bld) 0.6 % 0-1 [facility] Blood urea nitrogen (BUN)/cr eatinine ratioOrdered By: Buzz Rainey on 01-04-2025 Urea nitrogen/Creatinine [Mass ratio] 19.2 mg/mg 10-20 [facility] Carbon dioxide measurementOr dered By: Buzz Rainey on 01-04-2025 CO2 [Moles/Vol] 30.0 mmol/L 21.0-32.0 [facility] Chloride measurementOrdered By: Buzz Rainey on 01-04-2025 Chloride [Moles/Vol] 107 mmol/L 98-107 [facility] Eosinophil percentageOrdered By: Buzz Rainey on 01-04-2025 Eosinophils/100 WBC (Bld) 7.7 % High 0-5 [facility] Erythrocyte distribution wid th (RBC) [Ratio]Ordered By: Buzz Rainey on 01-04-2025 Erythrocyte distribution width (RBC) [Entitic vol] 46.5 fL High 35.1-43.9 [facility] Erythrocyte distribution wid th ratioOrdered By: Buzz Rainey on 01-04-2025 Erythrocyte distribution width (RBC) [Ratio] 12.4 % 11.6-14.6 [facility] Erythrocyte distribution wid th standard deviationOrdered By: Buzz Rainey on 01-04-2025 Erythrocyte distribution width (RBC) [Ratio] 46.5 fl High 35.1-43.9 [facility] Estimated glomerular filtrat ion rate (GFR) AmericanOrdered By: Buzz Rainey on 01-04-2025 Estimated GFR (MDRD) Amer 57 mL/min Low >60 [facility] Comment on above: GFR Calc Glomerular filtration rate ( GFR) estimationOrdered By: Buzz Rainey on 01-04-2025 Estimated GFR (MDRD) Non-Af Amer 47 mL/min Low >60 [facility] Comment on above: Non- GFR Calc GFR/1.73 sq M.predicted among non-blacks MDRD (S/P/Bld) [Vol rate/Area] 47 mL/min/{1.73_m2} Low >60 [facility] Comment on above: Non- GFR Calc Glucose measurementOrdered B y: Buzz Rainey on 01-04-2025 Glucose [Mass/Vol] 225 mg/dL High 74-[address] [facility] Comment on above: Glucose result great er than or equal to 200 mg/dLsuggests DIABETES MELLITUS per A.D.A. criteria. Hematocrit Auto (Bld) [Volum e fraction]Ordered By: Buzz Rainey on 01-04-2025 Hematocrit (Bld) [Volume fraction] 39.9 % Low 40-54 [facility] Hemoglobin measurementOrdere d By: Buzz Rainey on 01-04-2025 Hemoglobin (Bld) [Mass/Vol] 13.1 g/dL 13.0-16.5 [facility] Immature granulocytes/100 WB C Auto (Bld)Ordered By: Buzz Rainey on 01-04-2025 Immature granulocytes/100 WBC (Bld) 0.200 % 0.0-0.9 [facility] Comment on above: IG% - Immature Granu locytes (promyelocytes, myelocytes and metamyelocytes) > 1% indicates that a LEFT SHIFT is Present. Lymphocytes Auto (Unsp spec) [#/Vol]Ordered By: tamanna Rainey on 01-04-2025 Lymphocytes (Bld) [#/Vol] 0.86 10*3/uL 0.83-4.51 [facility] Lymphocytes/100 WBC Auto (Un sp spec)Ordered By: Buzz Rainey on 01-04-2025 Lymphocytes/100 WBC (Bld) 17.8 % Low 19-41 [facility] MCV (mean corpuscular volume ) determinationOrdered By: Buzz Rainey on 01-04-2025 MCV (RBC) [Entitic vol] 101.0 fL High 80-94 [facility] Mean corpuscular hemoglobin (MCH) determinationOrdered By: Buzz Rainey on 01-04-2025 MCH (RBC) [Entitic mass] 33.2 pg High 27.0-32.0 [facility] Mean corpuscular hemoglobin concentration (MCHC) determinationOrdered By: Buzz Rainey on 01-04-2025 MCHC (RBC) [Mass/Vol] 32.8 g/dL 32-36 [facility] Mean platelet volume determi nationOrdered By: tamanna Rainey on 01-04-2025 Platelet mean volume (Bld) [Entitic vol] 10.0 fL 6.2-12.0 [facility] Monocyte percentageOrdered B y: Buzz Rainey on 01-04-2025 Monocytes/100 WBC (Bld) 12.8 % High 0-10 [facility] Neutrophil percentageOrdered By: Buzz Rainey on 01-04-2025 Neutrophils/100 WBC (Bld) 60.9 % 47-70 [facility] Nucleated red blood cell per centageOrdered By: Buzz Rainey on 01-04-2025 Nucleated RBC/100 WBC (Bld) [Ratio] 0 % 0-5 [facility] Platelet countOrdered By: Alexandra Rainey on 01-04-2025 Platelets (Bld) [#/Vol] 217 10*3/uL 150-450 [facility] Potassium measurementOrdered By: Buzz Rainey on 01-04-2025 Potassium [Moles/Vol] 4.5 mmol/L 3.5-5.1 [facility] Comment on above: Slight Hemolysis, Re sult may be falsely increased. RBC Auto (Bld) [#/Vol]Ordere d By: Buzz Rainey on 01-04-2025 RBC (Bld) [#/Vol] 3.95 10*6/uL Low 4.6-6.2 [facility] Serum anion gap measurementO rdered By: Buzz Rainey on 01-04-2025 Anion gap [Moles/Vol] 4 mmol/L Low 5-15 [facility] Serum or plasma calcium jesenia urement (mass/volume)Ordered By: Buzz Rainey on 01-04-2025 Calcium [Mass/Vol] 8.9 mg/dL 8.5-10.[address] [facility] Serum or plasma creatinine m easurement (mass/volume)Ordered By: Buzz Rainey on 01-04-2025 Creatinine [Mass/Vol] 1.51 mg/dL High 0.70-1.30 [facility] Comment on above: The validity of the calculated GFR & GFRAA in patients over 70 years has not been determined. Clinical correlation is essential. Serum or plasma urea nitroge n measurement (mass/volume)Ordered By: Buzz Rainey on 01-04-2025 Urea nitrogen [Mass/Vol] 29 mg/dL High 7-18 [facility] Sodium levelOrdered By: Otilia Rainey on 01-04-2025 Sodium [Moles/Vol] 141 mmol/L 136-[address] [facility] White blood cell (WBC) count Ordered By: Buzz Rainey on 01-04-2025 WBC (Bld) [#/Vol] 4.8 10*3/uL 4.4-11.[address] [facility] Absolute lymphocyte countOrd ered By: Buzz Rainey on 12-07-2024 Lymphocytes Auto (Unsp spec) [#/Vol] 1.34 10*3/uL 0.83-4.51 [facility] Absolute neutrophil countOrd ered By: Buzz Rainey on 12-07-2024 Neutrophils (Bld) [#/Vol] 3.2 10*3/uL 2.0-7.7 [facility] Automated lymphocyte count a s percentage of total leukocytesOrdered By: Buzz Rainey on 12-07-2024 Lymphocytes/100 WBC Auto (Unsp spec) 24.8 % 19-41 [facility] Basophil percentageOrdered B y: Buzz Rainey on 12-07-2024 Basophils/100 WBC (Bld) 0.6 % 0-1 [facility] Blood urea nitrogen (BUN)/cr eatinine ratioOrdered By: Buzz Rainey on 12-07-2024 Urea nitrogen/Creatinine [Mass ratio] 18.5 mg/mg 10-20 [facility] Carbon dioxide measurementOr dered By: Buzz Rainey on 12-07-2024 CO2 [Moles/Vol] 27.0 mmol/L 21.0-32.0 [facility] Chloride measurementOrdered By: Buzz Rainey on 12-07-2024 Chloride [Moles/Vol] 106 mmol/L 98-107 [facility] Eosinophil percentageOrdered By: Buzz Rainey on 12-07-2024 Eosinophils/100 WBC (Bld) 5.5 % High 0-5 [facility] Erythrocyte distribution wid th (RBC) [Ratio]Ordered By: Buzz Rainey on 12-07-2024 Erythrocyte distribution width (RBC) [Entitic vol] 46.2 fL High 35.1-43.9 [facility] Erythrocyte distribution wid th ratioOrdered By: Buzz Rainey on 12-07-2024 Erythrocyte distribution width (RBC) [Ratio] 12.3 % 11.6-14.6 [facility] Erythrocyte distribution wid th standard deviationOrdered By: Alexandrayumikoarthur Brainmklana on 12-07-2024 Erythrocyte distribution width (RBC) [Ratio] 46.2 fl High 35.1-43.9 [facility] Estimated glomerular filtrat ion rate (GFR) AmericanOrdered By: Buzz Rainey on 12-07-2024 Estimated GFR (MDRD) Amer 59 mL/min Low >60 [facility] Comment on above: GFR Calc Glomerular filtration rate ( GFR) estimationOrdered By: Buzz Rainey on 12-07-2024 Estimated GFR (MDRD) Non-Af Amer 49 mL/min Low >60 [facility] Comment on above: Non- GFR Calc GFR/1.73 sq M.predicted among non-blacks MDRD (S/P/Bld) [Vol rate/Area] 49 mL/min/{1.73_m2} Low >60 [facility] Comment on above: Non- GFR Calc Glucose measurementOrdered B y: Buzz Rainey on 12-07-2024 Glucose [Mass/Vol] 129 mg/dL High 74-[address] [facility] Comment on above: Fasting Glucose resu lt greater than or equal to 126 mg/dL suggests DIABETES MELLITUS per A.D.A. criteria. Hematocrit Auto (Bld) [Volum e fraction]Ordered By: Buzz Rainey on 12-07-2024 Hematocrit (Bld) [Volume fraction] 40.6 % 40-54 [facility] Hemoglobin measurementOrdere d By: Buzz Rainey on 12-07-2024 Hemoglobin (Bld) [Mass/Vol] 13.4 g/dL 13.0-16.5 [facility] Immature granulocytes/100 WB C Auto (Bld)Ordered By: tamanna Rainey on 12-07-2024 Immature granulocytes/100 WBC (Bld) 0.200 % 0.0-0.9 [facility] Comment on above: IG% - Immature Granu locytes (promyelocytes, myelocytes and metamyelocytes) > 1% indicates that a LEFT SHIFT is Present. Lymphocytes Auto (Unsp spec) [#/Vol]Ordered By: Buzz Rainey on 12-07-2024 Lymphocytes (Bld) [#/Vol] 1.34 10*3/uL 0.83-4.51 [facility] Lymphocytes/100 WBC Auto (Un sp spec)Ordered By: Buzz Rainey on 12-07-2024 Lymphocytes/100 WBC (Bld) 24.8 % 19-41 [facility] MCV (mean corpuscular volume ) determinationOrdered By: Buzz Rainey on 12-07-2024 MCV (RBC) [Entitic vol] 102.8 fL High 80-94 [facility] Mean corpuscular hemoglobin (MCH) determinationOrdered By: Buzz Rainey on 12-07-2024 MCH (RBC) [Entitic mass] 33.9 pg High 27.0-32.0 [facility] Mean corpuscular hemoglobin concentration (MCHC) determinationOrdered By: Buzz Rainey on 12-07-2024 MCHC (RBC) [Mass/Vol] 33.0 g/dL 32-36 [facility] Mean platelet volume determi nationOrdered By: Buzz Rainey on 12-07-2024 Platelet mean volume (Bld) [Entitic vol] 10.0 fL 6.2-12.0 [facility] Monocyte percentageOrdered B y: Buzz Rainey on 12-07-2024 Monocytes/100 WBC (Bld) 9.4 % 0-10 [facility] Neutrophil percentageOrdered By: Buzz Rainey on 12-07-2024 Neutrophils/100 WBC (Bld) 59.5 % 47-70 [facility] Nucleated red blood cell per centageOrdered By: Buzz Rainey on 12-07-2024 Nucleated RBC/100 WBC (Bld) [Ratio] 0 % 0-5 [facility] Platelet countOrdered By: Alexandra Rainey on 12-07-2024 Platelets (Bld) [#/Vol] 217 10*3/uL 150-450 [facility] Potassium measurementOrdered By: Buzz Rainey on 12-07-2024 Potassium [Moles/Vol] 4.8 mmol/L 3.5-5.1 [facility] RBC Auto (Bld) [#/Vol]Ordere d By: Buzz Rainey on 12-07-2024 RBC (Bld) [#/Vol] 3.95 10*6/uL Low 4.6-6.2 [facility] Serum anion gap measurementO rdered By: Buzz Rainey on 12-07-2024 Anion gap [Moles/Vol] 5 mmol/L 5-15 [facility] Serum or plasma calcium jesenia urement (mass/volume)Ordered By: Buzz Rainey on 12-07-2024 Calcium [Mass/Vol] 9.1 mg/dL 8.5-10.[address] [facility] Serum or plasma creatinine m easurement (mass/volume)Ordered By: Buzz Rainey on 12-07-2024 Creatinine [Mass/Vol] 1.46 mg/dL High 0.70-1.30 [facility] Comment on above: The validity of the calculated GFR & GFRAA in patients over 70 years has not been determined. Clinical correlation is essential. Serum or plasma urea nitroge n measurement (mass/volume)Ordered By: Buzz Rainey on 12-07-2024 Urea nitrogen [Mass/Vol] 27 mg/dL High 7-18 [facility] Sodium levelOrdered By: Otilia Rainey on 12-07-2024 Sodium [Moles/Vol] 138 mmol/L 136-[address] [facility] White blood cell (WBC) count Ordered By: Buzz Rainey on 12-07-2024 WBC (Bld) [#/Vol] 5.4 10*3/uL 4.4-11.[address] [facility] Absolute lymphocyte countOrd ered By: Buzz Rainey on 11-30-2024 Lymphocytes Auto (Unsp spec) [#/Vol] 1.16 10*3/uL 0.83-4.51 [facility] Absolute neutrophil countOrd ered By: Buzz Rainey on 11-30-2024 Neutrophils (Bld) [#/Vol] 2.8 10*3/uL 2.0-7.7 [facility] Automated lymphocyte count a s percentage of total leukocytesOrdered By: Buzz Rainey on 11-30-2024 Lymphocytes/100 WBC Auto (Unsp spec) 23.3 % 19-41 [facility] Basophil percentageOrdered B y: Buzz Rainey on 11-30-2024 Basophils/100 WBC (Bld) 0.6 % 0-1 [facility] Blood urea nitrogen (BUN)/cr eatinine ratioOrdered By: Buzz Rainey on 11-30-2024 Urea nitrogen/Creatinine [Mass ratio] 21.4 mg/mg High 10-20 [facility] Carbon dioxide measurementOr dered By: tamanna Rainey on 11-30-2024 CO2 [Moles/Vol] 28.0 mmol/L 21.0-32.0 [facility] Cardiology Visit Reporton Cardiology Visit Report [facility] [address] [place] [address]. [address] [place] [address] OFFICE VISIT Date of Service: 11/30/24 MR#: [id number] Acct: [id number] Name: FLEX KLINE Rep #: [id number] : 1940 Provider: Dr. Margie Gary MD Age/Sex: 84/M Location: [facility] Status: Signed HPI HPI History of Present Illness Details: This gentleman has history of coronary artery disease status post three-vessel CABG with PEACE to the obtuse marginal, SVG to the distal RCA and SVG in a sequential manner to the diagonal and LAD. His last coronary angiography according to our records was in 2018 where in intervention was performed with drug-eluting stents to the right posterior lateral ventricular branch and distal RCA. Patient was admitted to the hospital late last year with chest pain and shortness of breath. He was noted to have UTI. An echocardiogram was done which showed normal LV systolic function. Stage II diastolic dysfunction was noted. With treatment for his UTI, his chest pains reportedly resolved. Since his discharge from the hospital, patient reports vast improvement in his symptoms of chest pains. According to him, he gets chest discomfort maybe once or twice a week. Occasional radiation to the arm. Per him, he has been having some chest discomfort today as well. No associated shortness of breath. Patient also has history of Parkinson's disease, chronic kidney disease, mild cognitive impairment, diabetes mellitus and dyslipidemia. 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 Required: No Accompanied by: Allergies Beta-Blockers (Beta-Adrenergic Bloc Allergy (Severe, Verified 11/30/24 10:07) ANGIOEDEMA Medications ???Medication ???Instructions ???Recorded ???Confirmed ???Type lisinopril 10 mg tablet 10 mg PO DAILY blood pressure 11/15/15 11/30/24 History metformin 1,000 mg tablet 1,000 mg PO BIDCM blood sugar 11/15/15 11/30/24 History tamsulosin 0.4 mg capsule 0.4 mg PO DAILY prostate 02/28/16 11/30/24 History clopidogrel 75 mg tablet 75 mg PO DAILY Heart 07/20/18 11/30/24 History aspirin 81 mg tablet,delayed 81 mg PO DAILY@0800 HEART HE[facility] 07/28/18 11/30/24 History release nitroglycerin 0.4 mg sublingual 0.4 mg PO PRN PRN CHEST PAIN 07/28/18 11/30/24 History tablet atorvastatin 80 mg tablet 80 mg PO QHS CHOLESTEROL 06/20/19 11/30/24 History magnesium oxide 400 mg (241.3 mg 800 mg PO DAILY SUPPLEMENT 01/21/21 11/30/24 History magnesium) tablet ranolazine 500 mg tablet,extended 500 mg PO BID . 04/21/21 11/30/24 History release,12 hr levothyroxine 50 mcg tablet 50 mcg PO DAILY THYROID 06/13/21 11/30/24 History Farxiga 5 mg tablet (dapagliflozin 5 mg PO DAILY DM #90 tabs 09/29/24 11/30/24 Rx propanediol) acetaminophen 325 mg tablet 650 mg (2 x 325 mg) PO Q6H PRN PRN 11/01/24 11/30/24 Rx Pain 1-10 Or Fever >100.7 #0 tabs Saccharomyces boulardii 250 mg 250 mg PO QDAY 11/08/24 11/30/24 History capsule (Daily Probiotic (S. boulardii)) carbidopa 25 mg-levodopa 100 mg 2 tab PO TID PARKINSONS 11/08/24 11/30/24 History disintegrating tablet cholecalciferol (vitamin D3) 25 25 mcg PO BID 11/08/24 11/30/24 History mcg (1,000 unit) capsule folic acid 800 mcg tablet 0.8 mg PO QDAY SUPPLMENT 11/08/24 11/30/24 History glimepiride 2 mg tablet 4 mg PO BID blood sugar 11/08/24 11/30/24 History gabapentin 600 mg tablet 600 mg PO BID 11/30/24 11/30/24 History Ejection fraction %: 55 Have you fallen in the past year?: Yes [facility] Medical History Acquired hypothyroidism Aortic atherosclerosis 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 heart disease of [place] coronary artery with other forms of angina pectoris Atherosclerotic heart disease of [place] coronary artery without angina pectoris BMI 26.0-26.9,adult CAD (coronary artery disease) Cataract CIDP (chronic inflammatory demyelinating polyneuropathy) Depression Diabetes Diabetic neuropathy Essential hypertension Essential tremor GERD (gastroesophageal reflux disease) History of chest pain HLD (hyperlipidemia) HTN (hypertension) Hyposmolality and/or hyponatremia Mild episode of recurrent major depressive disorder Mononeuritis of unspecified site Other and unspecified hyperlipidemia Parkinson's disease Parkinson's disease with dyskinesia and fluctuating manifestations Polyneuropathy associated with underlying disease Pressure injury of right ankle, stage 2 (more content not included)... Normal [facility] Chloride measurementOrdered By: Buzz Rainey on 11-30-2024 Chloride [Moles/Vol] 105 mmol/L 98-107 [facility] Eosinophil percentageOrdered By: Buzz Rainey on 11-30-2024 Eosinophils/100 WBC (Bld) 6.6 % High 0-5 [facility] Erythrocyte distribution wid th (RBC) [Ratio]Ordered By: Buzz Rainey on 11-30-2024 Erythrocyte distribution width (RBC) [Entitic vol] 46.9 fL High 35.1-43.9 [facility] Erythrocyte distribution wid th ratioOrdered By: Buzz Rainey on 11-30-2024 Erythrocyte distribution width (RBC) [Ratio] 12.4 % 11.6-14.6 [facility] Erythrocyte distribution wid th standard deviationOrdered By: Buzz Rainey on 11-30-2024 Erythrocyte distribution width (RBC) [Ratio] 46.9 fl High 35.1-43.9 [facility] Estimated glomerular filtrat ion rate (GFR) AmericanOrdered By: Buzz Rainey on 11-30-2024 Estimated GFR (MDRD) Amer 62 mL/min >60 [facility] Comment on above: GFR Calc Glomerular filtration rate ( GFR) estimationOrdered By: Buzz Rainey on 11-30-2024 Estimated GFR (MDRD) Non-Af Amer 52 mL/min Low >60 [facility] Comment on above: Non- GFR Calc GFR/1.73 sq M.predicted among non-blacks MDRD (S/P/Bld) [Vol rate/Area] 52 mL/min/{1.73_m2} Low >60 [facility] Comment on above: Non- GFR Calc Glucose measurementOrdered B y: Buzz Rainey on 11-30-2024 Glucose [Mass/Vol] 119 mg/dL High 74-[address] [facility] Comment on above: Fasting Glucose resu lt from 100 to 125 mg/dL suggests IMPAIRED HOMEOSTASIS per A.D.A. criteria. Hematocrit Auto (Bld) [Volum e fraction]Ordered By: Buzz Rainey on 11-30-2024 Hematocrit (Bld) [Volume fraction] 40.2 % 40-54 [facility] Hemoglobin measurementOrdere d By: Buzz Rainey on 11-30-2024 Hemoglobin (Bld) [Mass/Vol] 13.2 g/dL 13.0-16.5 [facility] Immature granulocytes/100 WB C Auto (Bld)Ordered By: Buzz Rainey on 11-30-2024 Immature granulocytes/100 WBC (Bld) 0.400 % 0.0-0.9 [facility] Comment on above: IG% - Immature Granu locytes (promyelocytes, myelocytes and metamyelocytes) > 1% indicates that a LEFT SHIFT is Present. Lymphocytes Auto (Unsp spec) [#/Vol]Ordered By: Buzz Rainey on 11-30-2024 Lymphocytes (Bld) [#/Vol] 1.16 10*3/uL 0.83-4.51 [facility] Lymphocytes/100 WBC Auto (Un sp spec)Ordered By: Buzz Rainey on 11-30-2024 Lymphocytes/100 WBC (Bld) 23.3 % 19-41 [facility] MCV (mean corpuscular volume ) determinationOrdered By: Buzz Rainey on 11-30-2024 MCV (RBC) [Entitic vol] 103.1 fL High 80-94 [facility] Mean corpuscular hemoglobin (MCH) determinationOrdered By: Buzz Rainey on 11-30-2024 MCH (RBC) [Entitic mass] 33.8 pg High 27.0-32.0 [facility] Mean corpuscular hemoglobin concentration (MCHC) determinationOrdered By: Buzz Rainey on 11-30-2024 MCHC (RBC) [Mass/Vol] 32.8 g/dL 32-36 [facility] Mean platelet volume determi nationOrdered By: Buzz Rainey on 11-30-2024 Platelet mean volume (Bld) [Entitic vol] 10.2 fL 6.2-12.0 [facility] Monocyte percentageOrdered B y: Buzz Rainey on 11-30-2024 Monocytes/100 WBC (Bld) 11.9 % High 0-10 [facility] Neutrophil percentageOrdered By: tamanna Rainey on 11-30-2024 Neutrophils/100 WBC (Bld) 57.2 % 47-70 [facility] Nucleated red blood cell per centageOrdered By: Buzz Rainey on 11-30-2024 Nucleated RBC/100 WBC (Bld) [Ratio] 0 % 0-5 [facility] Platelet countOrdered By: Alexandra Rainey on 11-30-2024 Platelets (Bld) [#/Vol] 212 10*3/uL 150-450 [facility] Potassium measurementOrdered By: Buzz Rainey on 11-30-2024 Potassium [Moles/Vol] 4.4 mmol/L 3.5-5.1 [facility] RBC Auto (Bld) [#/Vol]Ordere d By: Buzz Rainey on 11-30-2024 RBC (Bld) [#/Vol] 3.90 10*6/uL Low 4.6-6.2 [facility] Serum anion gap measurementO rdered By: Buzz Rainey on 11-30-2024 Anion gap [Moles/Vol] 6 mmol/L 5-15 [facility] Serum or plasma calcium jesenia urement (mass/volume)Ordered By: Buzz Rainey on 11-30-2024 Calcium [Mass/Vol] 8.8 mg/dL 8.5-10.[address] [facility] Serum or plasma creatinine m easurement (mass/volume)Ordered By: Buzz Rainey on 11-30-2024 Creatinine [Mass/Vol] 1.40 mg/dL High 0.70-1.30 [facility] Comment on above: The validity of the calculated GFR & GFRAA in patients over 70 years has not been determined. Clinical correlation is essential. Serum or plasma urea nitroge n measurement (mass/volume)Ordered By: Buzz aRiney on 11-30-2024 Urea nitrogen [Mass/Vol] 30 mg/dL High 7-18 [facility] Sodium levelOrdered By: Otilia Rainey on 11-30-2024 Sodium [Moles/Vol] 139 mmol/L 136-[address] [facility] White blood cell (WBC) count Ordered By: Buzz Rainey on 11-30-2024 WBC (Bld) [#/Vol] 5.0 10*3/uL 4.4-11.[address] [facility] Absolute neutrophil countOrd ered By: Buzz Rainey on 11-23-2024 Neutrophils (Bld) [#/Vol] 3.4 10*3/uL 2.0-7.7 [facility] Basophil percentageOrdered B y: Buzz Rainey on 11-23-2024 Basophils/100 WBC (Bld) 0.5 % 0-1 [facility] Blood urea nitrogen (BUN)/cr eatinine ratioOrdered By: Buzz Rainey on 11-23-2024 Urea nitrogen/Creatinine [Mass ratio] 19.8 mg/mg 10-20 [facility] Carbon dioxide measurementOr dered By: Buzz Rainey on 11-23-2024 CO2 [Moles/Vol] 28.0 mmol/L 21.0-32.0 [facility] Chloride measurementOrdered By: tamanna Rainey on 11-23-2024 Chloride [Moles/Vol] 104 mmol/L 98-107 [facility] Eosinophil percentageOrdered By: Buzz Rainey on 11-23-2024 Eosinophils/100 WBC (Bld) 6.0 % High 0-5 [facility] Erythrocyte distribution wid th (RBC) [Ratio]Ordered By: Buzz Rainey on 11-23-2024 Erythrocyte distribution width (RBC) [Entitic vol] 43.7 fL 35.1-43.9 [facility] Erythrocyte distribution wid th ratioOrdered By: Buzz Rainey on 11-23-2024 Erythrocyte distribution width (RBC) [Ratio] 11.9 % 11.6-14.6 [facility] Estimated glomerular filtrat ion rate (GFR) AmericanOrdered By: Buzz Rainey on 11-23-2024 Estimated GFR (MDRD) Amer 67 mL/min >60 [facility] Comment on above: GFR Calc Glomerular filtration rate ( GFR) estimationOrdered By: Buzz Rainey on 11-23-2024 Estimated GFR (MDRD) Non-Af Amer 56 mL/min Low >60 [facility] Comment on above: Non- GFR Calc Glucose measurementOrdered B y: Buzz Rainey on 11-23-2024 Glucose [Mass/Vol] 119 mg/dL High 74-[address] [facility] Comment on above: Fasting Glucose resu lt from 100 to 125 mg/dL suggests IMPAIRED HOMEOSTASIS per A.D.A. criteria. Hematocrit Auto (Bld) [Volum e fraction]Ordered By: Buzz Rainey on 11-23-2024 Hematocrit (Bld) [Volume fraction] 40.4 % 40-54 [facility] Hemoglobin measurementOrdere d By: Buzz Rainey on 11-23-2024 Hemoglobin (Bld) [Mass/Vol] 13.8 g/dL 13.0-16.5 [facility] Immature granulocytes/100 WB C Auto (Bld)Ordered By: Buzz Rainey on 11-23-2024 Immature granulocytes/100 WBC (Bld) 0.400 % 0.0-0.9 [facility] Comment on above: IG% - Immature Granu locytes (promyelocytes, myelocytes and metamyelocytes) > 1% indicates that a LEFT SHIFT is Present. Lymphocytes Auto (Unsp spec) [#/Vol]Ordered By: yumikomendonestrella Rainey on 11-23-2024 Lymphocytes (Bld) [#/Vol] 1.22 10*3/uL 0.83-4.51 [facility] Lymphocytes/100 WBC Auto (Un sp spec)Ordered By: Buzz Rainey on 11-23-2024 Lymphocytes/100 WBC (Bld) 21.4 % 19-41 [facility] MCV (mean corpuscular volume ) determinationOrdered By: Buzz Rainey on 11-23-2024 MCV (RBC) [Entitic vol] 99.5 fL High 80-94 [facility] Mean corpuscular hemoglobin (MCH) determinationOrdered By: Buzz Rainey on 11-23-2024 MCH (RBC) [Entitic mass] 34.0 pg High 27.0-32.0 [facility] Mean corpuscular hemoglobin concentration (MCHC) determinationOrdered By: Buzz Rainey on 11-23-2024 MCHC (RBC) [Mass/Vol] 34.2 g/dL 32-36 [facility] Mean platelet volume determi nationOrdered By: Buzz Rainey on 11-23-2024 Platelet mean volume (Bld) [Entitic vol] 10.2 fL 6.2-12.0 [facility] Monocyte percentageOrdered B y: Buzz Rainey on 11-23-2024 Monocytes/100 WBC (Bld) 12.4 % High 0-10 [facility] Neutrophil percentageOrdered By: Buzz Rainey on 11-23-2024 Neutrophils/100 WBC (Bld) 59.3 % 47-70 [facility] Nucleated red blood cell per centageOrdered By: Buzz Rainey on 11-23-2024 Nucleated RBC/100 WBC (Bld) [Ratio] 0 % 0-5 [facility] Platelet countOrdered By: Alexandra yumikoarthur Rainey on 11-23-2024 Platelets (Bld) [#/Vol] 219 10*3/uL 150-450 [facility] Potassium measurementOrdered By: Buzz Rainey on 11-23-2024 Potassium [Moles/Vol] 4.7 mmol/L 3.5-5.1 [facility] RBC Auto (Bld) [#/Vol]Ordere d By: Buzz Rainey on 11-23-2024 RBC (Bld) [#/Vol] 4.06 10*6/uL Low 4.6-6.2 [facility] Serum anion gap measurementO rdered By: Buzz Rainey on 11-23-2024 Anion gap [Moles/Vol] 5 mmol/L 5-15 [facility] Serum or plasma calcium jesenia urement (mass/volume)Ordered By: Buzz Rainey on 11-23-2024 Calcium [Mass/Vol] 9.2 mg/dL 8.5-10.[address] [facility] Serum or plasma creatinine m easurement (mass/volume)Ordered By: Buzz Rainey on 11-23-2024 Creatinine [Mass/Vol] 1.31 mg/dL High 0.70-1.30 [facility] Comment on above: The validity of the calculated GFR & GFRAA in patients over 70 years has not been determined. Clinical correlation is essential. Serum or plasma urea nitroge n measurement (mass/volume)Ordered By: Buzz Rainey on 11-23-2024 Urea nitrogen [Mass/Vol] 26 mg/dL High 7-18 [facility] [facility] Sodium levelOrdered By: Otilia arthur Redd on 11-23-2024 Sodium [Moles/Vol] 136 mmol/L 136-[address] [facility] White blood cell (WBC) count Ordered By: Buzz Rainey on 11-23-2024 WBC (Bld) [#/Vol] 5.7 10*3/uL 4.4-11.[address] [facility] Absolute neutrophil countOrd ered By: Buzz Rainey on 11-16-2024 Neutrophils (Bld) [#/Vol] 3.9 10*3/uL 2.0-7.7 [facility] Basophil percentageOrdered B y: Buzz Rainey on 11-16-2024 Basophils/100 WBC (Bld) 0.7 % 0-1 [facility] Blood urea nitrogen (BUN)/cr eatinine ratioOrdered By: Buzz Rainey on 11-16-2024 Urea nitrogen/Creatinine [Mass ratio] 18.8 mg/mg 10-20 [facility] Carbon dioxide measurementOr dered By: Buzz Rainey on 11-16-2024 CO2 [Moles/Vol] 25.0 mmol/L 21.0-32.0 [facility] Chloride measurementOrdered By: Buzz Rainey on 11-16-2024 Chloride [Moles/Vol] 105 mmol/L 98-107 [facility] Eosinophil percentageOrdered By: Buzz Rainey on 11-16-2024 Eosinophils/100 WBC (Bld) 6.1 % High 0-5 [facility] Erythrocyte distribution wid th (RBC) [Ratio]Ordered By: Buzz Rainey on 11-16-2024 Erythrocyte distribution width (RBC) [Entitic vol] 43.8 fL 35.1-43.9 [facility] Erythrocyte distribution wid th ratioOrdered By: Buzz Rainey on 11-16-2024 Erythrocyte distribution width (RBC) [Ratio] 11.9 % 11.6-14.6 [facility] Estimated glomerular filtrat ion rate (GFR) AmericanOrdered By: Buzz Rainey on 11-16-2024 Estimated GFR (MDRD) Amer 56 mL/min Low >60 [facility] Comment on above: GFR Calc Glomerular filtration rate ( GFR) estimationOrdered By: Buzz Rainey on 11-16-2024 Estimated GFR (MDRD) Non-Af Amer 46 mL/min Low >60 [facility] Comment on above: Non- GFR Calc Glucose measurementOrdered B y: Buzz Rainey on 11-16-2024 Glucose [Mass/Vol] 130 mg/dL High 74-[address] [facility] Comment on above: Fasting Glucose resu lt greater than or equal to 126 mg/dL suggests DIABETES MELLITUS per A.D.A. criteria. Hematocrit Auto (Bld) [Volum e fraction]Ordered By: Buzz Rainey on 11-16-2024 Hematocrit (Bld) [Volume fraction] 37.6 % Low 40-54 [facility] Hemoglobin measurementOrdere d By: Buzz Rainey on 11-16-2024 Hemoglobin (Bld) [Mass/Vol] 12.7 g/dL Low 13.0-16.5 [facility] Immature granulocytes/100 WB C Auto (Bld)Ordered By: Buzz Rainey on 11-16-2024 Immature granulocytes/100 WBC (Bld) 0.200 % 0.0-0.9 [facility] Comment on above: IG% - Immature Granu locytes (promyelocytes, myelocytes and metamyelocytes) > 1% indicates that a LEFT SHIFT is Present. Lymphocytes Auto (Unsp spec) [#/Vol]Ordered By: Buzz Rainey on 11-16-2024 Lymphocytes (Bld) [#/Vol] 1.20 10*3/uL 0.83-4.51 [facility] Lymphocytes/100 WBC Auto (Un sp spec)Ordered By: Buzz Rainey on 11-16-2024 Lymphocytes/100 WBC (Bld) 19.8 % 19-41 [facility] MCV (mean corpuscular volume ) determinationOrdered By: Buzz Rainey on 11-16-2024 MCV (RBC) [Entitic vol] 100.5 fL High 80-94 [facility] Mean corpuscular hemoglobin (MCH) determinationOrdered By: Buzz Rainey on 11-16-2024 MCH (RBC) [Entitic mass] 34.0 pg High 27.0-32.0 [facility] Mean corpuscular hemoglobin concentration (MCHC) determinationOrdered By: Buzz Rainey on 11-16-2024 MCHC (RBC) [Mass/Vol] 33.8 g/dL 32-36 [facility] Mean platelet volume determi nationOrdered By: Buzz Rainey on 11-16-2024 Platelet mean volume (Bld) [Entitic vol] 10.0 fL 6.2-12.0 [facility] Monocyte percentageOrdered B y: Buzz Rainey on 11-16-2024 Monocytes/100 WBC (Bld) 9.1 % 0-10 [facility] Neutrophil percentageOrdered By: Buzz Rainey on 11-16-2024 Neutrophils/100 WBC (Bld) 64.1 % 47-70 [facility] Nucleated red blood cell per centageOrdered By: Buzz Rainey on 11-16-2024 Nucleated RBC/100 WBC (Bld) [Ratio] 0 % 0-5 [facility] Platelet countOrdered By: Alexandra Rainey on 11-16-2024 Platelets (Bld) [#/Vol] 210 10*3/uL 150-450 [facility] Potassium measurementOrdered By: Buzz Rainey on 11-16-2024 Potassium [Moles/Vol] 4.9 mmol/L 3.5-5.1 [facility] Comment on above: Slight Hemolysis, Re sult may be falsely increased. RBC Auto (Bld) [#/Vol]Ordere d By: Buzz Rainey on 11-16-2024 RBC (Bld) [#/Vol] 3.74 10*6/uL Low 4.6-6.2 [facility] Serum anion gap measurementO rdered By: Buzz Rainey on 11-16-2024 Anion gap [Moles/Vol] 5 mmol/L 5-15 [facility] Serum or plasma calcium jesenia urement (mass/volume)Ordered By: Buzz Rainey on 11-16-2024 Calcium [Mass/Vol] 9.0 mg/dL 8.5-10.[address] [facility] Serum or plasma creatinine m easurement (mass/volume)Ordered By: Alexandrayumikohueyestrella De La Pazmklana on 11-16-2024 Creatinine [Mass/Vol] 1.54 mg/dL High 0.70-1.30 [facility] Comment on above: The validity of the calculated GFR & GFRAA in patients over 70 years has not been determined. Clinical correlation is essential. Serum or plasma urea nitroge n measurement (mass/volume)Ordered By: Buzz Rainey on 11-16-2024 Urea nitrogen [Mass/Vol] 29 mg/dL High 7-18 [facility] Sodium levelOrdered By: tOilia arthur Brainmklana on 11-16-2024 Sodium [Moles/Vol] 135 mmol/L Low 136-[address] [facility] White blood cell (WBC) count Ordered By: Buzz De La Pazmklana on 11-16-2024 WBC (Bld) [#/Vol] 6.1 10*3/uL 4.4-11.[address] [facility] Absolute neutrophil countOrd ered By: Alexandratamanna De La Pazmklana on 11-09-2024 Neutrophils (Bld) [#/Vol] 3.1 10*3/uL 2.0-7.7 [facility] Basophil percentageOrdered B y: Buzz De La Pazmklana on 11-09-2024 Basophils/100 WBC (Bld) 0.8 % 0-1 [facility] Blood urea nitrogen (BUN)/cr eatinine ratioOrdered By: Buzz De La Pazmklnaa on 11-09-2024 Urea nitrogen/Creatinine [Mass ratio] 21.8 mg/mg High 10-20 [facility] Carbon dioxide measurementOr dered By: Buzz De La Pazmklana on 11-09-2024 CO2 [Moles/Vol] 27.0 mmol/L 21.0-32.0 [facility] Chloride measurementOrdered By: Buzz Rainey on 11-09-2024 Chloride [Moles/Vol] 105 mmol/L 98-107 [facility] Eosinophil percentageOrdered By: Eftamanna Rainey on 11-09-2024 Eosinophils/100 WBC (Bld) 9.1 % High 0-5 [facility] Erythrocyte distribution wid th (RBC) [Ratio]Ordered By: tamanna Rainey on 11-09-2024 Erythrocyte distribution width (RBC) [Entitic vol] 43.2 fL 35.1-43.9 [facility] Erythrocyte distribution wid th ratioOrdered By: [facility] on 11-09-2024 Erythrocyte distribution width (RBC) [Ratio] 11.8 % 11.6-14.6 [facility] Estimated glomerular filtrat ion rate (GFR) AmericanOrdered By: [facility] Pazl[facility] on 11-09-2024 Estimated GFR (MDRD) Amer 72 mL/min >60 [facility] Comment on above: GFR Calc Glomerular filtration rate ( GFR) estimationOrdered By: yumikomendonestrella De La Pazlana on 11-09-2024 Estimated GFR (MDRD) Non-Af Amer 59 mL/min Low >60 [facility] Comment on above: Non- GFR Calc Glucose measurementOrdered B y: Buzz Rainey on 11-09-2024 Glucose [Mass/Vol] 145 mg/dL High 74-[address] [facility] Comment on above: Fasting Glucose resu lt greater than or equal to 126 mg/dL suggests DIABETES MELLITUS per A.D.A. criteria. Hematocrit Auto (Bld) [Volum e fraction]Ordered By: [facility] on 11-09-2024 Hematocrit (Bld) [Volume fraction] 38.3 % Low 40-54 [facility] Hemoglobin measurementOrdere d By: Buzz Rainey on 11-09-2024 Hemoglobin (Bld) [Mass/Vol] 12.9 g/dL Low 13.0-16.5 [facility] Immature granulocytes/100 WB C Auto (Bld)Ordered By: tamanna Monreallana on 11-09-2024 Immature granulocytes/100 WBC (Bld) 0.400 % 0.0-0.9 [facility] Comment on above: IG% - Immature Granu locytes (promyelocytes, myelocytes and metamyelocytes) > 1% indicates that a LEFT SHIFT is Present. Lymphocytes Auto (Unsp spec) [#/Vol]Ordered By: Buzz Rainey on 11-09-2024 Lymphocytes (Bld) [#/Vol] 1.10 10*3/uL 0.83-4.51 [facility] Lymphocytes/100 WBC Auto (Un sp spec)Ordered By: Buzz Rainey on 11-09-2024 Lymphocytes/100 WBC (Bld) 21.3 % 19-41 [facility] MCV (mean corpuscular volume ) determinationOrdered By: Buzz Rainey on 11-09-2024 MCV (RBC) [Entitic vol] 100.3 fL High 80-94 [facility] Mean corpuscular hemoglobin (MCH) determinationOrdered By: Buzz Rainey on 11-09-2024 MCH (RBC) [Entitic mass] 33.8 pg High 27.0-32.0 [facility] Mean corpuscular hemoglobin concentration (MCHC) determinationOrdered By: Buzz Rainey on 11-09-2024 MCHC (RBC) [Mass/Vol] 33.7 g/dL 32-36 [facility] Mean platelet volume determi nationOrdered By: Buzz Rainey on 11-09-2024 Platelet mean volume (Bld) [Entitic vol] 10.0 fL 6.2-12.0 [facility] Monocyte percentageOrdered B y: Buzz Rainey on 11-09-2024 Monocytes/100 WBC (Bld) 9.1 % 0-10 [facility] Neutrophil percentageOrdered By: Buzz Rainey on 11-09-2024 Neutrophils/100 WBC (Bld) 59.3 % 47-70 [facility] Nucleated red blood cell per centageOrdered By: Buzz Rainey on 11-09-2024 Nucleated RBC/100 WBC (Bld) [Ratio] 0 % 0-5 [facility] Platelet countOrdered By: Ef tamanna Rainey on 11-09-2024 Platelets (Bld) [#/Vol] 225 10*3/uL 150-450 [facility] Potassium measurementOrdered By: Buzz Rainey on 11-09-2024 Potassium [Moles/Vol] 4.5 mmol/L 3.5-5.1 [facility] RBC Auto (Bld) [#/Vol]Ordere d By: Buzz Rainey on 11-09-2024 RBC (Bld) [#/Vol] 3.82 10*6/uL Low 4.6-6.2 [facility] Serum anion gap measurementO rdered By: Buzz Rainey on 11-09-2024 Anion gap [Moles/Vol] 4 mmol/L Low 5-15 [facility] Serum or plasma calcium jesenia urement (mass/volume)Ordered By: Buzz Rainey on 11-09-2024 Calcium [Mass/Vol] 8.8 mg/dL 8.5-10.[address] [facility] Serum or plasma creatinine m easurement (mass/volume)Ordered By: Buzz Rainey on 11-09-2024 Creatinine [Mass/Vol] 1.24 mg/dL 0.70-1.30 [facility] Comment on above: The validity of the calculated GFR & GFRAA in patients over 70 years has not been determined. Clinical correlation is essential. Serum or plasma urea nitroge n measurement (mass/volume)Ordered By: Buzz Rainey on 11-09-2024 Urea nitrogen [Mass/Vol] 27 mg/dL High 7-18 [facility] Sodium levelOrdered By: Otilia Rainey on 11-09-2024 Sodium [Moles/Vol] 136 mmol/L 136-[address] [facility] White blood cell (WBC) count Ordered By: Buzz Rainey on 11-09-2024 WBC (Bld) [#/Vol] 5.2 10*3/uL 4.4-11.[address] [facility] 73-SW-Rlaslfk DOrdered By: Lana Rainey on 11-03-2024 Vitamin D 25-Hydroxy 37.4 ng/mL [facility] Comment on above: Vitamin D 25(OH) Sta tus Range Deficiency <20 ng/mL (50nmol/L) Insufficiency 20 - 30 ng/mL (50 - 75 nmol/L) Sufficiency 30 - 100 ng/mL (75 - 250 nmol/L) Toxicity >100 ng/mL (>250 nmol/L) Absolute neutrophil countOrd ered By: Buzz Rainey on 11-03-2024 Neutrophils (Bld) [#/Vol] 3.2 10*3/uL 2.0-7.7 [facility] Albumin to globulin ratioOrd ered By: tamanna De La Pazmklana on 11-03-2024 Albumin/Globulin [Mass ratio] 1.0 {ratio} 0.9-2.4 [facility] Basophil percentageOrdered B y: Buzz De La Pazmklana on 11-03-2024 Basophils/100 WBC (Bld) 0.4 % 0-1 [facility] Bilirubin, totalOrdered By: Buzz Rainey on 11-03-2024 Bilirubin [Mass/Vol] 0.80 mg/dL 0.20-1.00 [facility] Comment on above: For patients on eltr ombopag therapy, use of [place] TBIL is not recommended. Blood urea nitrogen (BUN)/cr eatinine ratioOrdered By: Buzz Rainey on 11-03-2024 Urea nitrogen/Creatinine [Mass ratio] 24.5 mg/mg High 10-20 [facility] Carbon dioxide measurementOr dered By: Buzz Rainey on 11-03-2024 CO2 [Moles/Vol] 23.0 mmol/L 21.0-32.0 [facility] Chloride measurementOrdered By: [facility] Pazlana on 11-03-2024 Chloride [Moles/Vol] 105 mmol/L 98-107 [facility] Eosinophil percentageOrdered By: Buzz Rainey on 11-03-2024 Eosinophils/100 WBC (Bld) 8.6 % High 0-5 [facility] Erythrocyte distribution wid th (RBC) [Ratio]Ordered By: Otiliamendonestrella Rainey on 11-03-2024 Erythrocyte distribution width (RBC) [Entitic vol] 44.9 fL High 35.1-43.9 [facility] Erythrocyte distribution wid th ratioOrdered By: [facility] on 11-03-2024 Erythrocyte distribution width (RBC) [Ratio] 12.0 % 11.6-14.6 [facility] Estimated glomerular filtrat ion rate (GFR) AmericanOrdered By: Buzz Rainey on 11-03-2024 Estimated GFR (MDRD) Amer 61 mL/min >60 [facility] Comment on above: GFR Calc Glomerular filtration rate ( GFR) estimationOrdered By: Buzz Rainey on 11-03-2024 Estimated GFR (MDRD) Non-Af Amer 50 mL/min Low >60 [facility] Comment on above: Non- GFR Calc Glucose measurementOrdered B y: Buzz Rainey on 11-03-2024 Glucose [Mass/Vol] 146 mg/dL High 74-[address] [facility] Comment on above: Fasting Glucose resu lt greater than or equal to 126 mg/dL suggests DIABETES MELLITUS per A.D.A. criteria. Hematocrit Auto (Bld) [Volum e fraction]Ordered By: Buzz Rainey on 11-03-2024 Hematocrit (Bld) [Volume fraction] 43.0 % 40-54 [facility] Hemoglobin A1c percentageOrd ered By: Buzz Rainey on 11-03-2024 HbA1c (Bld) [Mass fraction] 6.6 % High 3.8-5.6 [facility] Comment on above: Normal < 5.7 % Predi abetic 5.7 - 6.4 % Diabetic >or= 6.5 % Please note range changes. Hemoglobin measurementOrdere d By: Buzz Rainey on 11-03-2024 Hemoglobin (Bld) [Mass/Vol] 14.7 g/dL 13.0-16.5 [facility] High density lipoprotein (HD L) measurementOrdered By: Buzz Rainey on 11-03-2024 Cholesterol in HDL [Mass/Vol] 57 mg/dL >40 [facility] Comment on above: The drugs N-Acetylcy steine and Metamizole may falsely depress this assay. Reference Range HDL <40 mg/dL Low HDL Cholesterol HDL >or= 60 mg/dL High HDL Cholesterol Immature granulocytes/100 WB C Auto (Bld)Ordered By: Buzz Rainey on 11-03-2024 Immature granulocytes/100 WBC (Bld) 0.200 % 0.0-0.9 [facility] Comment on above: IG% - Immature Granu locytes (promyelocytes, myelocytes and metamyelocytes) > 1% indicates that a LEFT SHIFT is Present. Laboratory - Chemistry and C hemistry - challengeOrdered By: Buzz Rainey on 11-03-2024 AST [Catalytic activity/Vol] 41 U/L High 15-37 [facility] Low density lipoprotein (LDL ) cholesterol measurementOrdered By: Buzz Rainey on 11-03-2024 Cholesterol in LDL [Mass/Vol] 97 mg/dL 0-130 [facility] Lymphocytes Auto (Unsp spec) [#/Vol]Ordered By: Buzz Rainey on 11-03-2024 Lymphocytes (Bld) [#/Vol] 0.87 10*3/uL 0.83-4.51 [facility] Lymphocytes/100 WBC Auto (Un sp spec)Ordered By: Buzz Rainey on 11-03-2024 Lymphocytes/100 WBC (Bld) 17.4 % Low 19-41 [facility] MCV (mean corpuscular volume ) determinationOrdered By: Buzz Rainey on 11-03-2024 MCV (RBC) [Entitic vol] 101.2 fL High 80-94 [facility] Magnesium measurementOrdered By: Buzz Rainey on 11-03-2024 Magnesium [Mass/Vol] 2.2 mg/dL 1.6-2.6 [facility] Mean corpuscular hemoglobin (MCH) determinationOrdered By: Buzz Rainey on 11-03-2024 MCH (RBC) [Entitic mass] 34.6 pg High 27.0-32.0 [facility] Mean corpuscular hemoglobin concentration (MCHC) determinationOrdered By: Buzz Rainey on 11-03-2024 MCHC (RBC) [Mass/Vol] 34.2 g/dL 32-36 [facility] Mean platelet volume determi nationOrdered By: Buzz Rainey on 11-03-2024 Platelet mean volume (Bld) [Entitic vol] 9.9 fL 6.2-12.0 [facility] Monocyte percentageOrdered B y: Buzz Rainey on 11-03-2024 Monocytes/100 WBC (Bld) 10.4 % High 0-10 [facility] Neutrophil percentageOrdered By: Buzz De La Pazmklana on 11-03-2024 Neutrophils/100 WBC (Bld) 63.0 % 47-70 [facility] Nucleated red blood cell per centageOrdered By: Buzz Rainey on 11-03-2024 Nucleated RBC/100 WBC (Bld) [Ratio] 0 % 0-5 [facility] Platelet countOrdered By: Alexandra Rainey on 11-03-2024 Platelets (Bld) [#/Vol] 190 10*3/uL 150-450 [facility] Potassium measurementOrdered By: Buzz Rainey on 11-03-2024 Potassium [Moles/Vol] 5.0 mmol/L 3.5-5.1 [facility] RBC Auto (Bld) [#/Vol]Ordere d By: Buzz Rainey on 11-03-2024 RBC (Bld) [#/Vol] 4.25 10*6/uL Low 4.6-6.2 [facility] Serum anion gap measurementO rdered By: Buzz Rainey on 11-03-2024 Anion gap [Moles/Vol] 8 mmol/L 5-15 [facility] Serum globulin measurementOr dered By: Buzz Rainey on 11-03-2024 Globulin (S) [Mass/Vol] 3.8 g/dL 2.2-4.2 [facility] Serum or plasma alanine nix otransferase (ALT) measurementOrdered By: Buzz Rainey on 11-03-2024 ALT [Catalytic activity/Vol] 20 U/L 16-61 [facility] Serum or plasma albumin jesenia urement (mass/volume)Ordered By: Buzz Rainey 11-03-2024 Albumin [Mass/Vol] 3.7 g/dL 3.2-5.[address] [facility] Serum or plasma alkaline radha sphatase measurementOrdered By: Buzz Rainey 11-03-2024 ALP [Catalytic activity/Vol] 77 U/L 45-117 [facility] Serum or plasma calcium jesenia urement (mass/volume)Ordered By: Buzz Rainey on 11-03-2024 Calcium [Mass/Vol] 9.3 mg/dL 8.5-10.[address] [facility] Serum or plasma cholesterol measurement (mass/volume)Ordered By: Buzz Rainey on 11-03-2024 Cholesterol [Mass/Vol] 175 mg/dL <200 [facility] Comment on above: <200 mg/dL Desirable 200-240 mg/dL Borderline >240 mg/dL High Risk Serum or plasma creatinine m easurement (mass/volume)Ordered By: Buzz Rainey on 11-03-2024 Creatinine [Mass/Vol] 1.43 mg/dL High 0.70-1.30 [facility] Comment on above: The validity of the calculated GFR & GFRAA in patients over 70 years has not been determined. Clinical correlation is essential. Serum or plasma urea nitroge n measurement (mass/volume)Ordered By: Buzz Rainey on 11-03-2024 Urea nitrogen [Mass/Vol] 35 mg/dL High 7-18 [facility] Sodium levelOrdered By: Otilia baileycharilana Rainey on 11-03-2024 Sodium [Moles/Vol] 136 mmol/L 136-[address] [facility] Total proteinOrdered By: Franklin Rainey on 11-03-2024 Protein [Mass/Vol] 7.5 g/dL 6.4-8.[address] [facility] Triglycerides measurementOrd ered By: Buzz Rainey on 11-03-2024 Triglyceride [Mass/Vol] 105 mg/dL <199 [facility] Comment on above: The drugs N-Acetylcy steine and Metamizole may falsely depress this assay.Serum Triglycerides Reference Interval Normal <150 mg/dL Borderline high 150 - 199 mg/dL High 200 - 499 mg/dL Very High > or = 500 mg/dL Very low density lipoprotein (VLDL) cholesterol measurementOrdered By: Buzz Rainey on 11-03-2024 VLDL Cholesterol 21 mg/dL 5-40 [facility] White blood cell (WBC) count Ordered By: Buzz Rainey 11-03-2024 WBC (Bld) [#/Vol] 5.0 10*3/uL 4.4-11.[address] [facility] Bedside Glucoseon 11-01-2024 FINGERSTICK GLU 163 mg/dL [address] Comment on above: Result Comment: ARNODL GEMENT OF PATIENT CARE PER NURSING PROTOCOL Performed By: #### L 501.080 ####[facility] [address] [place], [address] FINGERSTICK GLU 212 mg/dL [address] Comment on above: Result Comment: ARNOLD GEMENT OF PATIENT CARE PER NURSING PROTOCOL Performed By: #### L 501.080 #### [facility] [address] [place], [address] FINGERSTICK GLU 125 mg/dL [address] Comment on above: Result Comment: ARNOLD GEMENT OF PATIENT CARE PER NURSING PROTOCOL Performed By: #### L 501.080 #### [facility] [address] [place], [address] [facility] deOrdered By: Sung Rhodes on 11-01-2024 Bedside Glucose (Misc Panel) 163 mg/dL [address] Comment on above: MANAGEMENT OF PATIEN T CARE PER NURSING PROTOCOL Bedside Glucoseon 10-31-2024 FINGERSTICK GLU 125 mg/dL [address] Comment on above: Result Comment: ARNOLD GEMENT OF PATIENT CARE PER NURSING PROTOCOL Performed By: #### L 501.080 #### [facility] [address] [place], [address] FINGERSTICK GLU 136 mg/dL [address] Comment on above: Result Comment: ARNOLD GEMENT OF PATIENT CARE PER NURSING PROTOCOL Performed By: #### L 501.080 #### [facility] [address] [place], [address] FINGERSTICK GLU 207 mg/dL [address] Comment on above: Result Comment: ARNOLD GEMENT OF PATIENT CARE PER NURSING PROTOCOL Performed By: #### L 501.080 ####[facility] [address] [place], [address] FINGERSTICK GLU 297 mg/dL High 74-106 [facility] Comment on above: Result Comment: ARNOLD GEMENT OF PATIENT CARE PER NURSING PROTOCOL Performed By: #### L 501.080 ####[facility] [address] [place], [address] Bedside Glucoseon 10-30-2024 FINGERSTICK GLU 216 mg/dL High -106 [facility] Comment on above: Result Comment: ARNOLD GEMENT OF PATIENT CARE PER NURSING PROTOCOL Performed By: #### L 501.080 ####[facility] [address] [place], [address] FINGERSTICK GLU 256 mg/dL High -106 [facility] Comment on above: Result Comment: ARNOLD GEMENT OF PATIENT CARE PER NURSING PROTOCOL Performed By: #### L 501.080 ####[facility] [address] [place] [place], [address] FINGERSTICK GLU 197 mg/dL High -106 [facility] Comment on above: Result Comment: ARNOLD GEMENT OF PATIENT CARE PER NURSING PROTOCOL Performed By: #### L 501.080 #### [facility] [address] [place], [address] FINGERSTICK GLU 177 mg/dL High 74-106 [facility] Comment on above: Result Comment: ARNOLD GEMENT OF PATIENT CARE PER NURSING PROTOCOL Performed By: #### L 501.080 #### [facility] [address] [place], [address] FINGERSTICK GLU 188 mg/dL High 74-106 [facility] Comment on above: Result Comment: ARNOLD GEMENT OF PATIENT CARE PER NURSING PROTOCOL Performed By: #### L 501.080 #### [facility] [address] [place], [address] Absolute neutrophil countOrd ered By: Roderick Laurent on 10-29-2024 Neutrophils (Bld) [#/Vol] 3.8 10*3/uL 2.0-7.7 [facility] Albumin to globulin ratioOrd ered By: Roderick Laurent on 10-29-2024 Albumin/Globulin [Mass ratio] 1.2 {ratio} 0.9-2.4 [facility] [facility] Basophil percentageOrdered B y: Roderick Laurent on 10-29-2024 Basophils/100 WBC (Bld) 0.7 % 0-1 [facility] Bedside Glucoseon 10-29-2024 FINGERSTICK GLU 255 mg/dL High 74-106 [facility] Comment on above: Result Comment: ARNOLD GEMENT OF PATIENT CARE PER NURSING PROTOCOL Performed By: #### L 501.080 #### [facility] [address] [facility] [address] FINGERSTICK GLU 214 mg/dL High -106 [facility] Comment on above: Result Comment: ARNOLD GEMENT OF PATIENT CARE PER NURSING PROTOCOL Performed By: #### L 501.080 #### [facility] [address] [place], [address] FINGERSTICK GLU 189 mg/dL High 74-106 [facility] Comment on above: Result Comment: ARNOLD GEMENT OF PATIENT CARE PER NURSING PROTOCOL Performed By: #### L 501.080 #### [facility] [address] [place], [address] FINGERSTICK GLU 161 mg/dL High 74-106 [facility] Comment on above: Result Comment: ARNOLD GEMENT OF PATIENT CARE PER NURSING PROTOCOL Performed By: #### L 501.080 #### [facility] [address] [place], [address] FINGERSTICK GLU 198 mg/dL High 74-106 [facility] Comment on above: Result Comment: ARNOLD GEMENT OF PATIENT CARE PER NURSING PROTOCOL Performed By: #### L 501.080 #### [facility] [address] [place], [address] FINGERSTICK GLU 328 mg/dL High 74-106 [facility] Comment on above: Result Comment: ARNOLD HAYWARD OF PATIENT CARE PER NURSING PROTOCOL Performed By: #### L 501.080 #### [facility] [address] [place], [address] Bilirubin, totalOrdered By: Roderick Laurent on 10-29-2024 Bilirubin [Mass/Vol] 0.60 mg/dL 0.20-1.00 [facility] Comment on above: For patients on eltr ombopag therapy, use of [place] TBIL is not recommended. Blood urea nitrogen (BUN)/cr eatinine ratioOrdered By: Roderick Laurent on 10-29-2024 Urea nitrogen/Creatinine [Mass ratio] 23.6 mg/mg High 10-20 [facility] CBC W/Diff, Automatedon 12-0 Absolute Lymph 0.93 X10 3/uL Normal 0.83-4.51 [facility] Comment on above: Performed By: #### L 501.080 #### [facility] [address] [place], [address] Absolute Neut 3.8 X10 3/uL Normal 2.0-7.7 [facility] Comment on above: Performed By: #### L 501.080 #### [facility] [address] [place], [address] Basophils/100 WBC (Bld) 0.7 % Normal 0-1 [facility] Comment on above: Performed By: #### L 501.080 #### [facility] [address] [place], [address] Eosinophils/100 WBC (Bld) 3.5 % Normal 0-5 [facility] Comment on above: Performed By: #### L 501.080 #### [facility] [address] [place], [address] Erythrocyte distribution width (RBC) [Ratio] 11.9 % Normal 11.6-14.6 [facility] Comment on above: Performed By: #### L 501.080 #### [facility] [address] [place], [address] Hematocrit (Bld) [Volume fraction] 40.5 % Normal 40-54 [facility] Comment on above: Performed By: #### L 501.080 #### [facility] [address] [place], [address] Hemoglobin (Bld) [Mass/Vol] 13.6 g/dL Normal 13.0-16.5 [facility] Comment on above: Performed By: #### L 501.080 #### [facility] [address] [place], [address] IG% 0.200 Normal 0.0-0.9 [facility] Comment on above: Result Comment: IG% - Immature Granulocytes (promyelocytes, myelocytes and metamyelocytes) > 1% indicates that a LEFT SHIFT is Present. Performed By: #### L 501.080 #### [facility] [address] [place], [address] Lymphocytes/100 WBC (Bld) 16.2 % Low 19-41 [facility] Comment on above: Performed By: #### L 501.080 #### [facility] [address] [place], [address] MCH (RBC) [Entitic mass] 33.8 pg High 27.0-32.0 [facility] Comment on above: Performed By: #### L 501.080 #### [facility] [address] [place], [address] MCHC (RBC) [Mass/Vol] 33.6 g/dL Normal 32-36 [facility] Comment on above: Performed By: #### L 501.080 #### [facility] [address] [place], [address] MCV (RBC) [Entitic vol] 100.7 fL High 80-94 [facility] Comment on above: Performed By: #### L 501.080 #### [facility] [address] [place], [address] Monocytes/100 WBC (Bld) 12.5 % High 0-10 [facility] Comment on above: Performed By: #### L 501.080 #### [facility] [address] [place], [address] Neutrophils/100 WBC (Bld) 66.9 % Normal 47-70 [facility] Comment on above: Performed By: #### L 501.080 #### [facility] [place], [address] Nucleated RBC (Bld) [#/Vol] 0 10*3/uL Normal 0-5 [facility] Comment on above: Performed By: #### L 501.080 #### [facility] [address] [place], [address] Platelet mean volume (Bld) [Entitic vol] 9.2 fL Normal 6.2-12.0 [facility] Comment on above: Performed By: #### L 501.080 #### [facility] [address] [place], [address] Platelets (Bld) [#/Vol] 230 10*3/uL Normal 150-450 [facility] Comment on above: Performed By: #### L 501.080 #### [facility] [address] [place], [address] RBC (Bld) [#/Vol] 4.02 10*6/uL Low 4.6-6.2 [facility] Comment on above: Performed By: #### L 501.080 #### [facility] [address] [place], [address] RDW SD 44.6 fl High 35.1-43.9 [facility] Comment on above: Performed By: #### L 501.080 #### [facility] [address] [place], [address] WBC (Bld) [#/Vol] 5.7 10*3/uL Normal 4.4-11.[address] [facility] Comment on above: Performed By: #### L 501.080 #### [facility] [address] [place], [address] Carbon dioxide measurementOr dered By: Roderick Laurent on 10-29-2024 CO2 [Moles/Vol] 26.0 mmol/L 21.0-32.0 [facility] Chloride measurementOrdered By: Roderick Laurent on 10-29-2024 Chloride [Moles/Vol] 105 mmol/L 98-107 [facility] Comprehensive Metabolic Prof ilon 10-29-2024 Albumin [Mass/Vol] 3.5 g/dL Normal 3.2-5.[address] [facility] Comment on above: Performed By: #### L 501.080 #### [facility] [address] [place], [address] Albumin/Globulin [Mass ratio] 1.2 {ratio} Normal 0.9-2.4 [facility] Comment on above: Performed By: #### L 501.080 #### [facility] [address] [place], [address] ALK P 64 U/L Normal 45-117 [facility] Comment on above: Performed By: #### L 501.080 #### [facility] [address] [place], [address] ALT [Catalytic activity/Vol] 15 U/L Low 16-61 [facility] Comment on above: Performed By: #### L 501.080 #### [facility] [address] [place], [address] AST [Catalytic activity/Vol] 22 U/L Normal 15-37 [facility] Comment on above: Performed By: #### L 501.080 #### [facility] [address] [place], [address] Bilirubin [Mass/Vol] 0.60 mg/dL Normal 0.20-1.00 [facility] Comment on above: Result Comment: For patients on eltrombopag therapy, use of [place] TBIL is not recommended. Performed By: #### L 501.080 #### [facility] [address] [place], [address] BUN/CRE 23.6 RATIO High 10-20 [facility] Comment on above: Performed By: #### L 501.080 #### [facility] [address] [place], [address] CA,Total 8.9 mg/dL Normal 8.5-10.1 [facility] Comment on above: Performed By: #### L 501.080 #### [facility] [address] [place], [address] Chloride [Moles/Vol] 105 mmol/L Normal 98-107 [facility] Comment on above: Performed By: #### L 501.080 #### [facility] [address] [place], [address] CO2 [Moles/Vol] 26.0 mmol/L Normal 21.0-32.0 [facility] Comment on above: Performed By: #### L 501.080 #### [facility] [address] [place], [address] Creatinine [Mass/Vol] 1.57 mg/dL High 0.70-1.30 [facility] Comment on above: Result Comment: The validity of the calculated GFR GFRAA in patients over 70 years has not been determined. Clinical correlation is essential. Performed By: #### L 501.080 #### [facility] [address] [place], [address] ECRCL 38.64 ml/min Normal [facility] Comment on above: Performed By: #### L 501.080 #### [facility] [address] [place], [address] EST GFR - AA 55 mL/min Low >60 [facility] Comment on above: Result Comment: Afri can Burmese GFR Calc Performed By: #### L 501.080 #### [facility] [address] [place], [address] GAP 7 Normal 5-15 [facility] Comment on above: Performed By: #### L 501.080 #### [facility] [address] [place], [address] GFR/1.73 sq M.predicted among non-blacks MDRD (S/P/Bld) [Vol rate/Area] 45 mL/min/{1.73_m2} Low >60 [facility] Comment on above: Result Comment: Non- GFR Calc Performed By: #### L 501.080 #### [facility] [address] [place], [address] Globulin (S) [Mass/Vol] 2.9 g/dL Normal 2.2-4.2 [facility] Comment on above: Performed By: #### L 501.080 #### [facility] [address] [place], [address] Glucose [Mass/Vol] 212 mg/dL High 74-[address] [facility] Comment on above: Result Comment: Gluc ose result greater than or equal to 200 mg/dL suggests DIABETES MELLITUS per A.D.A. criteria. Performed By: #### L 501.080 #### [facility] [address] [place], [address] Potassium [Moles/Vol] 4.4 mmol/L Normal 3.5-5.1 [facility] Comment on above: Performed By: #### L 501.080 #### [facility] [address] [place], [address] Sodium [Moles/Vol] 138 mmol/L Normal 136-[address] [facility] Comment on above: Performed By: #### L 501.080 #### [facility] [address] [place], [address] T PROT 6.4 g/dL Normal 6.4-8.2 [facility] Comment on above: Performed By: #### L 501.080 #### [facility] [address] [place], [address] Urea nitrogen [Mass/Vol] 37 mg/dL High 7-18 [facility] Comment on above: Performed By: #### L 501.080 #### [facility] [address] [place], [address] Eosinophil percentageOrdered By: Roderick Laurent on 10-29-2024 Eosinophils/100 WBC (Bld) 3.5 % 0-5 [facility] Erythrocyte distribution wid th (RBC) [Ratio]Ordered By: Roderick Laurent on 10-29-2024 Erythrocyte distribution width (RBC) [Entitic vol] 44.6 fL High 35.1-43.9 [facility] Erythrocyte distribution wid th ratioOrdered By: Roderick Laurent on 10-29-2024 Erythrocyte distribution width (RBC) [Ratio] 11.9 % 11.6-14.6 [facility] Estimated glomerular filtrat ion rate (GFR) AmericanOrdered By: Roderick Laurent on 10-29-2024 Estimated GFR (MDRD) Amer 55 mL/min Low >60 [facility] Comment on above: GFR Calc Estimation of creatinine chapito aranceOrdered By: Roderick Laurent on 10-29-2024 Estimated Creatinine Clearance Calc 38.64 ml/min [facility] Glomerular filtration rate ( GFR) estimationOrdered By: Roderick Laurent on 10-29-2024 Estimated GFR (MDRD) Non-Af Amer 45 mL/min Low >60 [facility] Comment on above: Non- GFR Calc Glucose measurementOrdered B y: Roderick Laurent on 10-29-2024 Glucose [Mass/Vol] 212 mg/dL High 74-[address] [facility] Comment on above: Glucose result great er than or equal to 200 mg/dLsuggests DIABETES MELLITUS per A.D.A. criteria. Hematocrit Auto (Bld) [Volum e fraction]Ordered By: Roderick Laurent on 10-29-2024 Hematocrit (Bld) [Volume fraction] 40.5 % 40-54 [facility] Hemoglobin measurementOrdere d By: Roderick Laurent on 10-29-2024 Hemoglobin (Bld) [Mass/Vol] 13.6 g/dL 13.0-16.5 [facility] Immature granulocytes/100 WB C Auto (Bld)Ordered By: Roderick Laurent on 10-29-2024 Immature granulocytes/100 WBC (Bld) 0.200 % 0.0-0.9 [facility] Comment on above: IG% - Immature Granu locytes (promyelocytes, myelocytes and metamyelocytes) > 1% indicates that a LEFT SHIFT is Present. Laboratory - Chemistry and C hemistry - challengeOrdered By: Roderick Laurent on 10-29-2024 AST [Catalytic activity/Vol] 22 U/L 15-37 [facility] Lymphocytes Auto (Unsp spec) [#/Vol]Ordered By: Roderick Laurent on 10-29-2024 Lymphocytes (Bld) [#/Vol] 0.93 10*3/uL 0.83-4.51 [facility] Lymphocytes/100 WBC Auto (Un sp spec)Ordered By: Roderick Laurent on 10-29-2024 Lymphocytes/100 WBC (Bld) 16.2 % Low 19-41 [facility] MCV (mean corpuscular volume ) determinationOrdered By: Roderick Laurent on 10-29-2024 MCV (RBC) [Entitic vol] 100.7 fL High 80-94 [facility] Mean corpuscular hemoglobin (MCH) determinationOrdered By: Roderick Laurent on 10-29-2024 MCH (RBC) [Entitic mass] 33.8 pg High 27.0-32.0 [facility] Mean corpuscular hemoglobin concentration (MCHC) determinationOrdered By: Roderick Laurent on 10-29-2024 MCHC (RBC) [Mass/Vol] 33.6 g/dL 32-36 [facility] Mean platelet volume determi nationOrdered By: Roderick Laurent on 10-29-2024 Platelet mean volume (Bld) [Entitic vol] 9.2 fL 6.2-12.0 [facility] Monocyte percentageOrdered B y: Roderick Laurent on 10-29-2024 Monocytes/100 WBC (Bld) 12.5 % High 0-10 [facility] Neutrophil percentageOrdered By: Roderick Laurent on 10-29-2024 Neutrophils/100 WBC (Bld) 66.9 % 47-70 [facility] Nucleated red blood cell per centageOrdered By: Roderick Laurent on 10-29-2024 Nucleated RBC/100 WBC (Bld) [Ratio] 0 % 0-5 [facility] Platelet countOrdered By: Marilu Laurent on 10-29-2024 Platelets (Bld) [#/Vol] 230 10*3/uL 150-450 [facility] Potassium measurementOrdered By: Roderick Laurent on 10-29-2024 Potassium [Moles/Vol] 4.4 mmol/L 3.5-5.1 [facility] RBC Auto (Bld) [#/Vol]Ordere d By: Roderick Laurent on 10-29-2024 RBC (Bld) [#/Vol] 4.02 10*6/uL Low 4.6-6.2 [facility] Serum anion gap measurementO rdered By: Roderick Laurent on 10-29-2024 Anion gap [Moles/Vol] 7 mmol/L 5-15 [facility] Serum globulin measurementOr dered By: Roderick Laurent on 10-29-2024 Globulin (S) [Mass/Vol] 2.9 g/dL 2.2-4.2 [facility] Serum or plasma alanine nix otransferase (ALT) measurementOrdered By: Roderick Laurent on 10-29-2024 ALT [Catalytic activity/Vol] 15 U/L Low 16-61 [facility] Serum or plasma albumin jesenia urement (mass/volume)Ordered By: Roderick Laurent on 10-29-2024 Albumin [Mass/Vol] 3.5 g/dL 3.2-5.[address] [facility] Serum or plasma alkaline radha sphatase measurementOrdered By: Roderick Laurent on 10-29-2024 ALP [Catalytic activity/Vol] 64 U/L 45-117 [facility] Serum or plasma calcium jesenia urement (mass/volume)Ordered By: Roderick Laurent on 10-29-2024 Calcium [Mass/Vol] 8.9 mg/dL 8.5-10.[address] [facility] Serum or plasma creatinine m easurement (mass/volume)Ordered By: Roderick Laurent on 10-29-2024 Creatinine [Mass/Vol] 1.57 mg/dL High 0.70-1.30 [facility] Comment on above: The validity of the calculated GFR & GFRAA in patients over 70 years has not been determined. Clinical correlation is essential. Serum or plasma urea nitroge n measurement (mass/volume)Ordered By: Roderick Laurent on 10-29-2024 Urea nitrogen [Mass/Vol] 37 mg/dL High 7-18 [facility] Sodium levelOrdered By: Roderick Laurent on 10-29-2024 Sodium [Moles/Vol] 138 mmol/L 136-[address] [facility] Total proteinOrdered By: Mario Laurent on 10-29-2024 Protein [Mass/Vol] 6.4 g/dL 6.4-8.[address] [facility] White blood cell (WBC) count Ordered By: Roderick Laurent on 10-29-2024 WBC (Bld) [#/Vol] 5.7 10*3/uL 4.4-11.[address] [facility] Bedside Glucoseon 10-28-2024 FINGERSTICK GLU 191 mg/dL High 74-106 [facility] Comment on above: Result Comment: ARNOLD HAYWARD OF PATIENT CARE PER NURSING PROTOCOL Performed By: #### L 501.080 #### [facility] [address] [place], [address] FINGERSTICK GLU 130 mg/dL High 74-106 [facility] Comment on above: Result Comment: ARNOLD GEMENT OF PATIENT CARE PER NURSING PROTOCOL Performed By: #### L 501.080 #### [facility] [address] [place], [address] FINGERSTICK GLU 204 mg/dL High 74-106 [facility] Comment on above: Result Comment: ARNOLD GEMENT OF PATIENT CARE PER NURSING PROTOCOL Performed By: #### L 501.080 #### [facility] [address] [place], [address] CBC W/Diff, Automatedon 12-0 -2023 Absolute Lymph 1.02 X10 3/uL Normal 0.83-4.51 [facility] Comment on above: Performed By: #### L 100.0100, L500.4050, [id number] #### [facility] [address] [place], [address] Absolute Neut 3.9 X10 3/uL Normal 2.0-7.7 [facility] Comment on above: Performed By: #### L 100.0100, [id number], [id number] #### [facility] [address] [place], [address] Basophils/100 WBC (Bld) 0.5 % Normal 0-1 [facility] Comment on above: Performed By: #### L 100.0100, [id number], [id number] #### [facility] [address] [place], [address] Eosinophils/100 WBC (Bld) 3.0 % Normal 0-5 [facility] Comment on above: Performed By: #### L 100.0100, [id number], [id number] #### [facility] [address] [place], [address] Erythrocyte distribution width (RBC) [Ratio] 11.8 % Normal 11.6-14.6 [facility] Comment on above: Performed By: #### L 100.0100, [id number], [id number] #### [facility] [address] [place], [address] Hematocrit (Bld) [Volume fraction] 40.0 % Normal 40-54 [facility] Comment on above: Performed By: #### L 100.0100, [id number], [id number] #### [facility] [address] [place], [address] Hemoglobin (Bld) [Mass/Vol] 13.5 g/dL Normal 13.0-16.5 [facility] Comment on above: Performed By: #### L 100.0100, [id number], [id number] #### [facility] [address] [place], [address] IG% 0.300 Normal 0.0-0.9 [facility] Comment on above: Result Comment: IG% - Immature Granulocytes (promyelocytes, myelocytes and metamyelocytes) > 1% indicates that a LEFT SHIFT is Present. Performed By: #### L 100.0100, [id number], [id number] #### [facility] [address] [place], [address] Lymphocytes/100 WBC (Bld) 17.2 % Low 19-41 [facility] Comment on above: Performed By: #### L 100.0100, [id number], [id number] #### [facility] [address] [place], [address] MCH (RBC) [Entitic mass] 33.4 pg High 27.0-32.0 [facility] Comment on above: Performed By: #### L 100.0100, [id number], [id number] #### [facility] [address] [place], [address] MCHC (RBC) [Mass/Vol] 33.8 g/dL Normal 32-36 [facility] Comment on above: Performed By: #### L 100.0100, [id number], [id number] #### [facility] [address] [place], [address] MCV (RBC) [Entitic vol] 99.0 fL High 80-94 [facility] Comment on above: Performed By: #### L 100.0100, [id number], [id number] #### [facility] [address] [place], [address] Monocytes/100 WBC (Bld) 13.9 % High 0-10 [facility] Comment on above: Performed By: #### L 100.0100, [id number], [id number] #### [facility] [address] [place], [address] Neutrophils/100 WBC (Bld) 65.1 % Normal 47-70 [facility] Comment on above: Performed By: #### L 100.0100, [id number], [id number] #### [facility] [address] [place], [address] Nucleated RBC (Bld) [#/Vol] 0 10*3/uL Normal 0-5 [facility] Comment on above: Performed By: #### L 100.0100, [id number], [id number] #### [facility] [address] [place], [address] Platelet mean volume (Bld) [Entitic vol] 9.4 fL Normal 6.2-12.0 [facility] Comment on above: Performed By: #### L 100.0100, [id number], [id number] #### [facility] [address] [place], [address] Platelets (Bld) [#/Vol] 251 10*3/uL Normal 150-450 [facility] Comment on above: Performed By: #### L 100.0100, [id number], [id number] #### [facility] [address] [place], [address] RBC (Bld) [#/Vol] 4.04 10*6/uL Low 4.6-6.2 [facility] Comment on above: Performed By: #### L 100.0100, [id number], [id number] #### [facility] [address] [place], [address] RDW SD 43.0 fl Normal 35.1-43.9 [facility] Comment on above: Performed By: #### L 100.0100, [id number], [id number] #### [facility] [address] [place], [address] WBC (Bld) [#/Vol] 5.9 10*3/uL Normal 4.4-11.[address] [facility] Comment on above: Performed By: #### L 100.0100, [id number], [id number] #### [facility] [address] [place] [place], [address] Comprehensive Metabolic Prof [facility] 10-28-2024 Albumin [Mass/Vol] 3.6 g/dL Normal 3.2-5.[address] [facility] Comment on above: Performed By: #### L 100.0100, L500.4050, L501.9520 ####[facility] [address] [place], [address] Albumin/Globulin [Mass ratio] 1.1 {ratio} Normal 0.9-2.4 [facility] Comment on above: Performed By: #### L 100.0100, L500.4050, L501.9520 ####[facility] [address] [place], [address] ALK P 68 U/L Normal 45-117 [facility] Comment on above: Performed By: #### L 100.0100, L500.4050, L501.9520 ####[facility] [address] [place], [address] ALT [Catalytic activity/Vol] 24 U/L Normal 16-61 [facility] Comment on above: Performed By: #### L 100.0100, L500.4050, L501.9520 ####[facility] [address] [place], [address] AST [Catalytic activity/Vol] 25 U/L Normal 15-37 [facility] Comment on above: Performed By: #### L 100.0100, L500.4050, L501.9520 ####[facility] [address] [place], [address] Bilirubin [Mass/Vol] 1.00 mg/dL Normal 0.20-1.00 [facility] Comment on above: Result Comment: For patients on eltrombopag therapy, use of [place] TBIL is not recommended. Performed By: #### L 100.0100, L500.4050, L501.9520 ####[facility] [address] [place], [address] BUN/CRE 16.7 RATIO Normal 10-20 [facility] Comment on above: Performed By: #### L 100.0100, L500.4050, L501.9520 ####[facility] [address] [place], [address] CA,Total 8.7 mg/dL Normal 8.5-10.1 [facility] Comment on above: Performed By: #### L 100.0100, L500.4050, L501.9520 ####[facility] [address] [place], [address] Chloride [Moles/Vol] 105 mmol/L Normal 98-107 [facility] Comment on above: Performed By: #### L 100.0100, L500.4050, L501.9520 ####[facility] [address] [place], [address] CO2 [Moles/Vol] 23.0 mmol/L Normal 21.0-32.0 [facility] Comment on above: Performed By: #### L 100.0100, L500.4050, L501.9520 ####[facility] [address] [place], [address] Creatinine [Mass/Vol] 1.20 mg/dL Normal 0.70-1.30 [facility] Comment on above: Result Comment: The validity of the calculated GFR GFRAA in patients over 70 years has not been determined. Clinical correlation is essential. Performed By: #### L 100.0100, L500.4050, L501.9520 ####[facility] [address] [place], [address] ECRCL 50.55 ml/min Normal [facility] Comment on above: Performed By: #### L 100.0100, L500.4050, L501.9520 ####[facility] [address] [place], [address] EST GFR - AA 74 mL/min Normal >60 [facility] Comment on above: Result Comment: Afri can Burmese GFR Calc Performed By: #### L 100.0100, L500.4050, L501.9520 ####[facility] [address] [place], [address] GAP 8 Normal 5-15 [facility] Comment on above: Performed By: #### L 100.0100, L500.4050, L501.9520 ####[facility] [address] [place], [address] GFR/1.73 sq M.predicted among non-blacks MDRD (S/P/Bld) [Vol rate/Area] 62 mL/min/{1.73_m2} Normal >60 [facility] Comment on above: Result Comment: Non- GFR Calc Performed By: #### L 100.0100, L500.4050, L501.9520 ####[facility] [address] [place], [address] Globulin (S) [Mass/Vol] 3.3 g/dL Normal 2.2-4.2 [facility] Comment on above: Performed By: #### L 100.0100, L500.4050, L501.9520 ####[facility] [address] [place], [address] Glucose [Mass/Vol] 130 mg/dL High 74-[address] [facility] Comment on above: Result Comment: Fast ing Glucose result greater than or equal to 126 mg/dL suggests DIABETES MELLITUS per A.D.A. criteria. Performed By: #### L 100.0100, L500.4050, L501.9520 ####[facility] [address] [place], [address] Potassium [Moles/Vol] 3.9 mmol/L Normal 3.5-5.1 [facility] Comment on above: Performed By: #### L 100.0100, L500.4050, L501.9520 ####[facility] [address] [place], [address] Sodium [Moles/Vol] 136 mmol/L Normal 136-[address] [facility] Comment on above: Performed By: #### L 100.0100, L500.4050, L501.9520 ####[facility] [address] [place], [address] T PROT 6.9 g/dL Normal 6.4-8.2 [facility] Comment on above: Performed By: #### L 100.0100, L500.4050, L501.9520 ####[facility] [address] [place], [address] Urea nitrogen [Mass/Vol] 20 mg/dL High 7-18 [facility] Comment on above: Performed By: #### L 100.0100, L500.4050, L501.9520 ####[facility] [address] [place], [address] Culture, Anaerobic Any Sourc adrianna 10-28-2024 CUAN List Antibiotics Las t 48 Hours? NONE List Antibiotics to be Started? NONE No anaerobic bacteria isolated. Normal [facility] Comment on above: Performed By: #### M 100.2000, M100.3000, M100.4001 ####[facility] [address] [place], [address] TSH QnOrdered By: Sulma maxwell on 10-28-2024 Thyroid Stimulating Hormone (TSH) 4.070 uIU/mL High 0.358-3.740 [facility] Thyroid Stim Hormone (TSH)on 10-28-2024 TSH 4.070 uIU/mL High 0.358-3.740 [facility] Comment on above: Performed By: #### L 100.0100, L500.4050, L501.9520 ####[facility] [address] [place], [address] Urine Cultureon 10-28-2024 URC Mixed Gram Pos Gram Neg Org Pioneer Count 11,000-25,000 MIXC Mixed contaminants. Submit a new specimen if indicated. Normal [facility] Comment on above: Performed By: #### M 100.2200 ####[facility] [address] [place], [address] 12 Lead EKGon 10-27-2024 12 Lead EKG [facility] [address] [place] [address] 12 Lead EKG 10/27/24 1027 MR#: [id number] Acct: [id number] Name: FLEX KLINE Rep #: [id number] : 1940 84 From: Garfield Thornton MD Attending Dr: Dr. Roderick Laurent DO Status: A DM IN Ordering Dr: Velasquez Morales DO Date: 4 [place] [facility] [place]: M C Admitted: 10/27/24 Test Reason : CP Blood Pressure : */* mmHG Vent. Rate : 78 BPM Atrial Rate : 78 BPM P-R Int : 216 ms QRS Dur : 100 ms QT Int : 382 ms P-R-T Axes : 103 50 59 degrees QTcB Int : 435 ms Sinus rhythm with 1st degree A-V block Otherwise normal ECG Confirmed by Garfield Thornton ([id number]), sports editor ERROL AIKEN ([id number]) on 10/30/2024 6:53:52 AM Referred By: Confirmed By: Garfield Thornton 10/30/24 0653 Date Garfield Thornton MD CC: Dr. Velasquez Morales DO; Dr. Roderick Laurent DO; Dr. Felix Montelongo MD Signed Normal [facility] BNP (brain natriuretic pepti de measurement)Ordered By: Velasquez Morales on 10-27-2024 Natriuretic peptide B (Bld) [Mass/Vol] 133.8 pg/mL High 0-100 [facility] BNP,B-Type NATRIURETIC PEPTI Camryn 10-27-2024 Natriuretic peptide B (Bld) [Mass/Vol] 133.8 pg/mL High 0-100 [facility] Comment on above: Performed By: #### L 501.080 #### [facility] [address] [place], [address] Basic Metabolic Profile (BMP )on 10-27-2024 BUN/CRE 17.1 RATIO Normal 10-20 [facility] Comment on above: Order Comment: 1Y Performed By: #### L 501.080 #### [facility] [address] [place], [address] CA,Total 9.2 mg/dL Normal 8.5-10.1 [facility] Comment on above: Order Comment: 1Y Performed By: #### L 501.080 #### [facility] [address] [place], [address] Chloride [Moles/Vol] 100 mmol/L Normal 98-107 [facility] Comment on above: Order Comment: 1Y Performed By: #### L 501.080 #### [facility] [address] [place], [address] CO2 [Moles/Vol] 27.0 mmol/L Normal 21.0-32.0 [facility] Comment on above: Order Comment: 1Y Performed By: #### L 501.080 #### [facility] [address] [place], [address] Creatinine [Mass/Vol] 1.46 mg/dL High 0.70-1.30 [facility] Comment on above: Order Comment: 1Y Result Comment: The validity of the calculated GFR GFRAA in patients over 70 years has not been determined. Clinical correlation is essential. Performed By: #### L 501.080 #### [facility] [address] [place], [address] ECRCL 41.55 ml/min Normal [facility] Comment on above: Order Comment: 1Y Performed By: #### L 501.080 #### [facility] [address] [place], [address] EST GFR - AA 59 mL/min Low >60 [facility] Comment on above: Order Comment: 1Y Result Comment: Afri can Burmese GFR Calc Performed By: #### L 501.080 #### [facility] [address] [place], [address] GAP 7 Normal 5-15 [facility] Comment on above: Order Comment: 1Y Performed By: #### L 501.080 #### [facility] [address] [place], [address] GFR/1.73 sq M.predicted among non-blacks MDRD (S/P/Bld) [Vol rate/Area] 49 mL/min/{1.73_m2} Low >60 [facility] Comment on above: Order Comment: 1Y Result Comment: Non- GFR Calc Performed By: #### L 501.080 #### [facility] [address] [place], [address] Glucose [Mass/Vol] 158 mg/dL High 74-[address] [facility] Comment on above: Order Comment: 1Y Result Comment: Fast ing Glucose result greater than or equal to 126 mg/dL suggests DIABETES MELLITUS per A.D.A. criteria. Performed By: #### L 501.080 #### [facility] [address] [place], [address] Potassium [Moles/Vol] 4.4 mmol/L Normal 3.5-5.1 [facility] Comment on above: Order Comment: 1Y Result Comment: Mode rate Hemolysis, Result may be falsely increased. Performed By: #### L 501.080 #### [facility] [address] [place], [address] Sodium [Moles/Vol] 133 mmol/L Low 136-[address] [facility] Comment on above: Order Comment: 1Y Performed By: #### L 501.080 #### [facility] [address] [place], [address] Urea nitrogen [Mass/Vol] 25 mg/dL High 7-18 [facility] Comment on above: Order Comment: 1Y Performed By: #### L 501.080 #### [facility] [address] [place], [address] Bedside Glucoseon 10-27-2024 FINGERSTICK GLU 100 mg/dL Normal 74-106 [facility] Comment on above: Result Comment: ARNOLD HAYWARD OF PATIENT CARE PER NURSING PROTOCOL Performed By: #### L 501.080 #### [facility] [address] [place], [address] Bilirubin Test strip Ql (U)O rdered By: Velasquez Morales on 10-27-2024 Bilirubin Ql (U) Negative Negative [facility] CBC W/Diff, Automatedon Absolute Neut Normal 2.0-7.7 [facility] Comment on above: Result Comment: Canc elled via OM: MD Ordered Performed By: #### L 501.080 #### [facility] [address] [place], [address] HCT Normal 40-54 [facility] Comment on above: Result Comment: Canc elled via OM: MD Ordered Performed By: #### L 501.080 #### [facility] [address] [place], [address] HGB Normal 13.0-16.5 [facility] Comment on above: Result Comment: Canc elled via OM: MD Ordered Performed By: #### L 501.080 #### [facility] [address] [place], [address] MCH Normal 27.0-32.0 [facility] Comment on above: Result Comment: Canc elled via OM: MD Ordered Performed By: #### L 501.080 #### [facility] [address] [place], [address] MCHC Normal 32-36 [facility] Comment on above: Result Comment: Canc elled via OM: MD Ordered Performed By: #### L 501.080 #### [facility] [address] [place], [address] MCV Normal 80-94 [facility] Comment on above: Result Comment: Canc elled via OM: MD Ordered Performed By: #### L 501.080 #### [facility] [address] [place], [address] NEUT% Normal 47-70 [facility] Comment on above: Result Comment: Canc elled via OM: MD Ordered Performed By: #### L 501.080 #### [facility] [address] [place], [address] PLT Normal 150-450 [facility] Comment on above: Result Comment: Canc elled via OM: MD Ordered Performed By: #### L 501.080 #### [facility] [address] [place], [address] RBC Normal 4.6-6.2 [facility] Comment on above: Result Comment: Canc elled via OM: MD Ordered Performed By: #### L 501.080 #### [facility] [address] [place], [address] RDW CV Normal 11.6-14.6 [facility] Comment on above: Result Comment: Canc elled via OM: MD Ordered Performed By: #### L 501.080 #### [facility] [address] [place], [address] RDW SD Normal 35.1-43.9 [facility] Comment on above: Result Comment: Canc elled via OM: MD Ordered Performed By: #### L 501.080 #### [facility] [address] [place], [address] WBC Normal 4.4-11.0 [facility] Comment on above: Result Comment: Canc elled via OM: MD Ordered Performed By: #### L 501.080 #### [facility] [address] [place], [address] Absolute Lymph 0.82 X10 3/uL Low 0.83-4.51 [facility] Comment on above: Performed By: #### L 501.080 #### [facility] [address] [place], [address] Absolute Neut 4.3 X10 3/uL Normal 2.0-7.7 [facility] Comment on above: Performed By: #### L 501.080 #### [facility] [address] [place], [address] Basophils/100 WBC (Bld) 0.7 % Normal 0-1 [facility] Comment on above: Performed By: #### L 501.080 #### [facility] [address] [place], [address] Eosinophils/100 WBC (Bld) 2.2 % Normal 0-5 [facility] Comment on above: Performed By: #### L 501.080 #### [facility] [address] [place], [address] Erythrocyte distribution width (RBC) [Ratio] 11.9 % Normal 11.6-14.6 [facility] Comment on above: Performed By: #### L 501.080 #### [facility] [address] [place], [address] Hematocrit (Bld) [Volume fraction] 41.5 % Normal 40-54 [facility] Comment on above: Performed By: #### L 501.080 #### [facility] [address] [place], [address] Hemoglobin (Bld) [Mass/Vol] 14.6 g/dL Normal 13.0-16.5 [facility] Comment on above: Performed By: #### L 501.080 #### [facility] [address] [place], [address] IG% 0.300 Normal 0.0-0.9 [facility] Comment on above: Result Comment: IG% - Immature Granulocytes (promyelocytes, myelocytes and metamyelocytes) > 1% indicates that a LEFT SHIFT is Present. Performed By: #### L 501.080 #### [facility] [address] [place], [address] Lymphocytes/100 WBC (Bld) 14.1 % Low 19-41 [facility] Comment on above: Performed By: #### L 501.080 #### [facility] [address] [place], [address] MCH (RBC) [Entitic mass] 34.9 pg High 27.0-32.0 [facility] Comment on above: Performed By: #### L 501.080 #### [facility] [address] [place], [address] MCHC (RBC) [Mass/Vol] 35.2 g/dL Normal 32-36 [facility] Comment on above: Performed By: #### L 501.080 #### [facility] [address] [place], [address] MCV (RBC) [Entitic vol] 99.3 fL High 80-94 [facility] Comment on above: Performed By: #### L 501.080 #### [facility] [address] [place], [address] Monocytes/100 WBC (Bld) 9.3 % Normal 0-10 [facility] Comment on above: Performed By: #### L 501.080 #### [facility] [address] [place], [address] Neutrophils/100 WBC (Bld) 73.4 % High 47-70 [facility] Comment on above: Performed By: #### L 501.080 #### [facility] [address] [place], [address] Nucleated RBC (Bld) [#/Vol] 0 10*3/uL Normal 0-5 [facility] Comment on above: Performed By: #### L 501.080 #### [facility] [address] [place], [address] Platelet mean volume (Bld) [Entitic vol] 9.6 fL Normal 6.2-12.0 [facility] Comment on above: Performed By: #### L 501.080 #### [facility] [address] [place], [address] Platelets (Bld) [#/Vol] 256 10*3/uL Normal 150-450 [facility] Comment on above: Performed By: #### L 501.080 #### [facility] [address] [place], [address] RBC (Bld) [#/Vol] 4.18 10*6/uL Low 4.6-6.2 [facility] Comment on above: Performed By: #### L 501.080 #### [facility] [address] [place], [address] RDW SD 43.4 fl Normal 35.1-43.9 [facility] Comment on above: Performed By: #### L 501.080 #### [facility] [address] [place], [address] WBC (Bld) [#/Vol] 5.8 10*3/uL Normal 4.4-11.[address] [facility] Comment on above: Performed By: #### L 501.080 #### [facility] [address] [place], [address] Chest 1 View (Portable)on Chest 1 View (Portable) [facility] Imaging Services [address] [place] [address] Chest 1 View (Portable) MR#: [id number] Acct: [id number] Name: FLEX KLINE Rep #: [id number] : 1940 M 84 From: Clint Freire MD PCP: Dr. Felix Montelongo MD Status: PRE ER Study: Chest 1 View (Portable) Date of Exam: 10/27/24 Exam# [id number] Ordering Dr: Velasquez Morales DO [id number] STUDY: X-RAY CHEST REASON FOR EXAM: Male, 84 years old. Chest pain TECHNIQUE: Single AP portable view of the chest. COMPARISON: April 21, 2021 FINDINGS: The lungs are clear and expanded. There is no demonstrated pleural abnormality. Sternal cerclage wires and vascular clips are present from a prior sternotomy and coronary artery bypass graft procedure (CABG). Normal mediastinum and bailey. Normal visualized pulmonary arteries. Normal visualized aortic arch and descending thoracic aorta. There is demineralization of the osseous structures. There is degenerative change of the spine. Normal visualized ribs, clavicles, and shoulders. There is no demonstrated abnormality of the visualized soft tissue structures of the upper abdomen. RAD/Chest 1 View (Portable) IMPRESSION: Degenerative changes, as described above. No demonstrated acute cardiopulmonary process. Electronically Signed: Clint Freire MD at 11:00 EST , CC: Dr. Velasquez Morales DO; Dr. 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 Result Comment: D-Di augusta ELEVATED (>0.49): Additional studies and clinical assessments are indicated to conclude diagnosis of: Deep Vein Thrombosis (DVT) or Pulmonary Embolism (PE) Performed By: #### L 501.080 #### [facility] [address] [place], [address] D-dimer measurement for deep venous thrombosisOrdered By: Velasquez Morales on 10-27-2024 D-Dimer Quantitative (PE/DVT) 0.50 FEU/ug/m High 0.27-0.49 [facility] Comment on above: D-Dimer ELEVATED (>0 .49): Additional studies and clinicalassessments are indicated to conclude diagnosis of:Deep Vein Thrombosis (DVT) or Pulmonary Embolism (PE) Echo Complete W/ Contraston 10-27-2024 Echo Complete W/ Contrast [facility] [address] [place] [address] Echo Complete W/ Contrast 10/28/24 0814 MR#: [id number] Acct: [id number] Name: FLEX KLINE Rep #: [id number] : 1940 84 From: Angela Ramirez MD Attending Dr: Dr. Roderick Laurent, DO Status: A DM IN Ordering Dr: Sulma Romero MD Date: 10/27/24 [place] [facility] [place] Sex: M C Admitted: 10/27/24 Reason For Study: Chest Pain Procedure This was a 2D Doppler, Color Flow transthoracic echocardiogram. The study was technically difficult. Contrast injection was performed. Exam performed portable in patient room. Left Ventricle Normal left ventricle. The estimated ejection fraction is 55-???60 %. Right Ventricle Normal right ventricle. Normal systolic function. Atria Normal left atrium. Normal right atrium. Mitral Valve The mitral valve is structurally normal. No prolapse or stenosis seen. Tricuspid Valve Normal tricuspid valve. Aortic Valve Trisinus/trileaflet aortic valve. Pulmonic Valve The pulmonic valve is not well visualized. Great Vessels Normal aortic root. Pericardium/Pleural No pericardial effusion. Medication Diluted definity 2ml given slow IV push to enhance endocardial definition. MMode/2D Measurements Calculations LVIDd: 4.1 cm IVSd: 1.2 cm Ao root diam: 4.2 cm LVIDs: 2.6 cm LVPWd: 1.1 cm RVDd: 3.8 cm FS: 37.2 % LAV(MOD-bp): 47.7 ml LVAd ap4: 31.9 cm2 SV(MOD-sp4): 64.3 ml LAV(MOD-bp) Indexed: 24.0 ml/m2 LVLd ap4: 8.0 cm SI(MOD-sp4): 32.3 ml/m2 LAV(MOD-sp2): 50.8 ml EDV(MOD-sp4): 105.4 ml LAV(MOD-sp4): 42.5 ml EDV(sp4-el): 108.6 ml LVAs ap4: 18.5 cm2 LVLs ap4: 6.8 cm ESV(MOD-sp4): 41.1 ml ESV(sp4-el): 42.6 ml EF(MOD-sp4): 61.0 % EF(sp4-el): 60.7 % SV(sp4-el): 65.9 ml LA A4 area: 15.6 cm2 LA dimension(2D): 3.8 cm RA A4 area: 11.5 cm2 TAPSE: 1.4 cm Time Measurements MV dec time: 0.35 sec Doppler Measurements Calculations MV E max antonia: 50.7 cm/sec Lat Peak E' Antonia: 12.0 cm/sec Med Peak E' Antonia: 8.2 cm/sec MV A max antonia: 82.1 cm/sec E/E' lat: 4.2 E/E' med: 6.2 MV E/A: 0.62 MV V2 max: 94.9 cm/sec MV P1/2t max an[place]ia: 59.2 cm/sec Ao V2 max: 81.8 cm/sec MV max P.6 mmHg MV P1/2t: 123.0 msec Ao max P.7 mmHg MV V2 mean: 45.2 cm/sec MV dec slope: 140.9 cm/sec2 Ao V2 mean: 59.1 cm/sec MV mean P.99 mmHg MVA(P1/2t): 1.8 cm2 Ao mean P.6 mmHg MV V2 VTI: 22.4 cm Ao V2 VTI: 19.2 cm AV (velocity ratio): 0.76 LV V1 max: 75.0 cm/sec PA V2 max: 80.2 cm/sec LV V1 max P.2 mmHg LV V1 mean P.3 mmHg LV V1 mean: 54.4 cm/sec LV V1 VTI: 14.6 cm ECHO/Echo Complete W/ Contrast Interpretation Summary The estimated ejection fraction is 55-60% Normal LV systolic function No significant valvular abnormality No pericardial effusion noted Contrast echo using Definity. Grade 2 diastolic dysfunction. In comparison to previous echocardiogram no significant abnormality noted. Ordering Physician: Sulma Romero Performed By: Velasquez Cox RCS 10/28/24 1447 Date Angela Ramirez MD CC: Dr. Roderick Laurent DO; Dr. Sulma Romero MD; Dr. 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 Felix Montelongo MD Status:ADM IN Location: [place] [address] HPI History of Present Illness Chief Complaint: Chest Pain Narrative Narrative: Chief complaint and HPI: Shortness of breath, chest pain, generalized weakness. 84-year-old male with history of DM, CKD, HTN, HLD, Parkinson's disease, CAD, presents for evaluation of shortness of breath, chest pain, generalized weakness. Patient states that he has been having intermittent chest pain for the past 2 weeks. He states that he has been taking aspirin. He states he took a nitro yesterday with little relief. He states the past 4 days he has been having shortness of breath. He denies any fever, chills, URI symptoms, cough, abdominal pain, nausea, vomiting, dysuria. Patient states that he has had generalized weakness over the past several days to the point that it is difficult to ambulate. He states 2 months ago he had increased swelling of his bilateral lower extremities but has been seeing wound care and wearing compression socks and this has improved. He denies any recent surgery or travel. Review of systems: See HPI Medications: As listed on the chart Allergies: As listed on the chart PFSH: Per chart Vital signs: As listed on the chart. Reviewed. Physical exam: Gen: A O x3, NAD Head: Normocephalic, atraumatic Eyes: No sclera icterus, conjunctiva clear, PERRL, EOMI ENT: Mildly dry mucous membranes Neck: Trachea midline, No JVD CV: Regular rhythm, regular rhythm, no murmurs, minimal peripheral edema Resp: Lungs CTA BL, no w/r/c GI: Abd soft, non-distended, non-tender, no r/r/g Musc: Moves all extremities, no deformity, generalized weakness, tremor from Parkinson's Skin: Warm, dry, small chronic wounds to the bilateral lower extremities-not infected Neuro: Alert, oriented, grossly intact, sensation intact Psych: Cooperative, appropriate mood and affect [facility] Medical History (Reviewed 10/27/24 @ 12:55 by Rita Calixto CHARGE ACCOUNT IDENTIFICATION CLERK, CHARGE ACCOUNT IDENTIFICATION CLERK-C) Diabetes GERD (gastroesophageal reflux disease) Cataract 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 heart disease of [place] coronary artery without angina pectoris Parkinson's disease Essential tremor CIDP (chronic inflammatory demyelinating polyneuropathy) Diabetic neuropathy HTN (hypertension) HLD (hyperlipidemia) Type II diabetes mellitus, uncontrolled History of chest pain Home Medications ???Medication ???Instructions ???Recorded ???Last Taken ???Type lisinopril 10 mg tablet 10 mg PO DAILY blood pressure 11/15/15 07/28/18 06:00 History metformin 1,000 mg tablet 1,000 mg PO BIDCM blood sugar 11/15/15 07/28/18 06:00 History tamsulosin 0.4 mg capsule 0.4 mg PO DAILY prostate 02/28/16 07/28/18 18:00 History cholecalciferol (vitamin D3) 125 5,000 unit PO MOWEFR supplement 06/15/18 07/27/18 18:00 History mcg (5,000 unit) capsule clopidogrel 75 mg tablet 75 mg PO DAILY Heart 07/20/18 07/27/18 12:00 History aspirin 81 mg tablet,delayed 81 mg PO DAILY@0800 HEART HEALTH 07/28/18 07/28/18 06:00 History release nitroglycerin 0.4 mg sublingual 0.4 mg PO PRN PRN CHEST PAIN 07/28/18 07/28/18 History tablet folic acid 800 mcg tablet 0.8 mg PO BID SUPPLMENT 06/17/19 Unknown History gabapentin 800 mg tablet 800 mg PO TID NERVE 06/17/19 Unknown History atorvastatin 80 mg tablet 80 mg PO QHS CHOLESTEROL 06/20/19 Unknown History blood-glucose meter (Accu-Chek #200 ea 05/03/20 Unknown Rx Bettina Plus Meter) magnesium oxide 400 mg (241.3 mg 800 mg PO DAILY SUPPLEMENT 01/21/21 Unknown History magnesium) tablet ranolazine 500 mg tablet,extended 500 mg PO BID . 04/21/21 Unknown History release,12 hr carbidopa 25 mg-levodopa 100 mg 1 tab translingual TID PARKINSONS 06/13/21 Unknown History disintegrating tablet levothyroxine 50 mcg tablet 50 mcg PO DAILY THYROID 06/13/21 Unknown History blood sugar diagnostic (Accu-Chek #200 ea 10/28/22 Unknown Rx Bettina Plus test strips) glimepiride 2 mg tablet 4 mg (2 x 2 mg) PO DAILY blood 05/07/23 Unknown Rx sugar #90 tabs Farxiga 5 mg tablet (dapagliflozin 5 mg PO DAILY DM #90 tabs 09/29/24 Unknown Rx propanediol) cephalexin 500 mg capsule 500 mg PO Q6H 7 days #28 caps 10/27/24 Unknown Rx Allergy/AdvReac Type Severity Reaction Status Date / Time Beta-Blockers Allergy Severe ANGIOEDEMA Verified 10/27/24 10:34 (Beta-Adrenergic Bloc Family History (Reviewed 10/27/24 @ 12:55 by Rita Calixto CHARGE ACCOUNT IDENTIFICATION CLERK, CHARGE ACCOUNT IDENTIFICATION CLERK-C) Mother Alzheimer's dementia Diabetes Father CAD (coronary artery disease) Heart disease Brother CAD (coron (more content not included)... Normal [facility] Epithelial cells.squamous LM Ql (Urine sed)Ordered By: Velasquez Morales on 10-27-2024 Epithelial cells.squamous LM.HPF (Urine sed) [#/Area] 0 /[HPF] 0-5 [facility] Glucose Ql (U)Ordered By: Korye Morales on 10-27-2024 Glucose (U) [Mass/Vol] 1000 mg/dL High Normal [facility] H AND P Exam - [facility] 10-27-2024 H&P Exam - Hospitalist [facility] Medical Records Department [address] [place] [address] H P Exam - Hospitalist 10/27/24 1633 MR#: [id number] Acct: [id number] Name: FLEX KLINE Rep #: [id number] : 1940 84 From: Sulma Romero MD PCP: Dr. Felix Montelongo MD Status:ADM IN Location: [facility] [place] [id number] HPI - General General Date of Admission: 10/27/24 Date of Service: 10/27/24 Chief Complaint: Weakness, CP, SOB HPI Narrative FLEX KLINE, is a 84-year-old male history of CKD, Parkinson's, CAD, BPH, diabetes, hypothyroidism presented [facility] ED 10/27/2024 with shortness of breath, chest pain, generalized weakness. He has been having intermittent chest pain for 2 weeks and has been taking aspirin. Took a nitro yesterday with a little relief. Also has been having shortness of breath for the past 4 days and generalized weakness to the point that is difficult to ambulate. In the ED patient had a D-dimer that was normal when adjusted for his age, BNP of only 133 and negative troponin x 2. Was found to have a UTI however given his weakness family was worried about taking him home so hospitalist contacted for admission. Patient evaluated with family member at bedside. Patient reports he has had sometimes left-sided sometimes right-sided sometimes both chest pain that at times is like a pressure and happens at random over the past couple of weeks, for the past few days he has had some shortness of breath he also has some lower extremity weakness and was worried about his kidneys or his heart prompting him to come to the ED. Has also been generally weak increasing over the past couple of weeks and did note some increased urinary frequency. Patient denies fevers or chills, no cough. Regards to his chest pain he does not note anything that makes it better or worse per se, had taken some aspirin over the past 1 to 2 weeks which he thinks may have been slightly helpful but does not notice any change with exertion or rest. [facility] Medical History Diabetes GERD (gastroesophageal reflux disease) Cataract 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 heart disease of [place] coronary artery without angina pectoris Parkinson's disease Essential tremor CIDP (chronic inflammatory demyelinating polyneuropathy) Diabetic neuropathy HTN (hypertension) HLD (hyperlipidemia) Type II diabetes mellitus, uncontrolled History of chest pain Home Medications ???Medication ???Instructions ???Recorded ???Last Taken ???Type lisinopril 10 mg tablet 10 mg PO DAILY blood pressure 11/15/15 07/28/18 06:00 History metformin 1,000 mg tablet 1,000 mg PO BIDCM blood sugar 11/15/15 07/28/18 06:00 History tamsulosin 0.4 mg capsule 0.4 mg PO DAILY prostate 02/28/16 07/28/18 18:00 History cholecalciferol (vitamin D3) 125 5,000 unit PO MOWEFR supplement 06/15/18 07/27/18 18:00 History mcg (5,000 unit) capsule clopidogrel 75 mg tablet 75 mg PO DAILY Heart 07/20/18 07/27/18 12:00 History aspirin 81 mg tablet,delayed 81 mg PO DAILY@0800 HEART HEALTH 07/28/18 07/28/18 06:00 History release nitroglycerin 0.4 mg sublingual 0.4 mg PO PRN PRN CHEST PAIN 07/28/18 07/28/18 History tablet folic acid 800 mcg tablet 0.8 mg PO BID SUPPLMENT 06/17/19 Unknown History gabapentin 800 mg tablet 800 mg PO TID NERVE 06/17/19 Unknown History atorvastatin 80 mg tablet 80 mg PO QHS CHOLESTEROL 06/20/19 Unknown History blood-glucose meter (Accu-Chek #200 ea 05/03/20 Unknown Rx Bettina Plus Meter) magnesium oxide 400 mg (241.3 mg 800 mg PO DAILY SUPPLEMENT 01/21/21 Unknown History magnesium) tablet ranolazine 500 mg tablet,extended 500 mg PO BID . 04/21/21 Unknown History release,12 hr carbidopa 25 mg-levodopa 100 mg 1 tab translingual TID PARKINSONS 06/13/21 Unknown History disintegrating tablet levothyroxine 50 mcg tablet 50 mcg PO DAILY THYROID 06/13/21 Unknown History blood sugar diagnostic (Accu-Chek #200 ea 10/28/22 Unknown Rx Bettina Plus test strips) glimepiride 2 mg tablet 4 mg (2 x 2 mg) PO DAILY blood 05/07/23 Unknown Rx sugar #90 tabs Farxiga 5 mg tablet (dapagliflozin 5 mg PO DAILY DM #90 tabs 09/29/24 Unknown Rx propanediol) cephalexin 500 mg capsule 500 mg PO Q6H 7 days #28 caps 10/27/24 Unknown Rx Allergy/AdvReac Type Severity Reaction Status Date / Time Beta-Blockers Allergy Severe ANGIOEDEMA Verified 10/27/24 10:34 (Beta-Adrenergic Bloc Family History (Reviewed 10/27/24 @ 12:55 by Rita Calixto CHARGE ACCOUNT IDENTIFICATION CLERK, CHARGE ACCOUNT IDENTIFICATION CLERK-C) Mother Alzheimer's dementia Diabetes Father CAD (coronary artery disease) Heart disease Brother CAD (coronary artery disease) Daughter Arthritis Surgical History (Reviewed 10/27/24 @ 12:55 by Rita Calixto CHARGE ACCOUNT IDENTIFICATION CLERK, CHARGE ACCOUNT IDENTIFICATION CLERK-C) 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 Normal [facility] Influenza virus A and B and SARS-CoV-2 (COVID-19) and Respiratory syncytial virus RNAOrdered By: Velasquez Morales on 10-27-2024 SARS-CoV-2 (COVID-19) RNA ROSIE+probe Ql (Unsp spec) [facility] Ketones Test strip Ql (U)Ord ered By: Velasquez Morales on 10-27-2024 Ketones Ql (U) 5 mg/dl High Negative [facility] L501.4020on 10-27-2024 TROPONIN-I HS 9 pg/mL Normal 3.0-78.0 [facility] Comment on above: Result Comment: Pleashlyn valiente Note: New Test Units and Gender Specific Reference Ranges. For more information see Policy Stat Procedure [facility] High Sensitivity Troponin (TNIH) and attachments. Performed By: #### L 501.4020 ####[facility] [address] [place], [address] L501.5425on 10-27-2024 TROPONIN-I HS 8 pg/mL Normal 3.0-78.0 [facility] Comment on above: Order Comment: 1Y Result Comment: Pleashlyn se Note: New Test Units and Gender Specific Reference Ranges. For more information see Policy Stat Procedure [facility] High Sensitivity Troponin (TNIH) and attachments. Performed By: #### L 501.080 #### [facility] [address] [place], [address] M100.678on 10-27-2024 M100.678 Pending SARS-CoV-2 (COVID 19) Negative INFLUENZA A Negative INFLUENZA B Negative RSV PCR Negative Normal [facility] Comment on above: Performed By: #### M 100.678, L400.0001 ####[facility] [address] [place], [address] Magnesiumon 10-27-2024 Magnesium [Mass/Vol] 2.2 mg/dL Normal 1.6-2.6 [facility] Comment on above: Performed By: #### L 501.080 #### [facility] [address] [place], [address] Magnesium measurementOrdered By: Velasquez Morales on 10-27-2024 Magnesium [Mass/Vol] 2.2 mg/dL 1.6-2.6 [facility] Microscopic analysis of urin e for red blood cells (RBC)Ordered By: Velasquez Morales on 10-27-2024 Urine RBC 0 SEEN /hpf 0-5 [facility] Mucus LM Ql (Urine sed)Order ed By: Velasquez Morales on 10-27-2024 Mucus Ql (Urine sed) 0 SEEN /hpf [facility] Nitrite Test strip Ql (U)Ord ered By: Velasquez Morales on 10-27-2024 Nitrite Ql (U) Negative Negative [facility] Protein Test strip Ql (U)Ord ered By: Velasquez Morales on 10-27-2024 Protein Ql (U) 30 mg/dl High Negative [facility] Thyroid Stim Hormone (TSH)on 10-27-2024 TSH 2.580 uIU/mL Normal 0.358-3.740 [facility] Comment on above: Performed By: #### L 501.080 #### [facility] [address] [place], [address] Troponin IOrdered By: Velasquez Morales on 10-27-2024 Troponin I High Sensitivity 9 pg/mL 3.0-78.0 [facility] Comment on above: Please Note: New Luz Elena t Units and Gender Specific Reference Ranges. For more information see Policy Stat Procedure [facility] High Sensitivity Troponin (TNIH) and attachments. Urinalysis, Completeon 10-27 BACTERIA 1+ /hpf Normal None Seen [facility] Comment on above: Order Comment: CLEAN CATCH Performed By: #### M 100.678, L400.0001 ####[facility] [address] [place], [address] WBC 10-25 SEEN Normal 0-5 [facility] Comment on above: Order Comment: CLEAN CATCH Performed By: #### M 100.678, L400.0001 ####[facility] [address] [place], [address] BILIRUBIN URINE Negative Normal Negative [facility] Comment on above: Order Comment: CLEAN CATCH Performed By: #### M 100.678, L400.0001 ####[facility] [address] [place], [address] Clarity (U) Clear Normal Clear [facility] Comment on above: Order Comment: CLEAN CATCH Performed By: #### M 100.678, L400.0001 ####[facility] [address], [address] Color (U) Straw Normal Yellow [facility] Comment on above: Order Comment: CLEAN CATCH Performed By: #### M 100.678, L400.0001 ####[facility] [address] [place], [address] GLUCOSE, UR 1000 mg/dl Abnormal Normal [facility] Comment on above: Order Comment: CLEAN CATCH Performed By: #### M 100.678, L400.0001 ####[facility] [address] [place], [address] KETONE UR 5 mg/dl Abnormal Negative [facility] Comment on above: Order Comment: CLEAN CATCH Performed By: #### M 100.678, L400.0001 ####[facility] [address] [place], [address] LEUK ESTERASE 100 /ul Abnormal Negative [facility] Comment on above: Order Comment: CLEAN CATCH Performed By: #### M 100.678, L400.0001 ####[facility] [address] [place], [address] Nitrite Ql (U) Negative Normal Negative [facility] Comment on above: Order Comment: CLEAN CATCH Performed By: #### M 100.678, L400.0001 ####[facility] [address] [place], [address] OCCULT BLOOD-UR Negative Normal Negative [facility] Comment on above: Order Comment: CLEAN CATCH Performed By: #### M 100.678, L400.0001 ####[facility] [address] [place], [address] pH UR 7.0 Normal 5.0 - 8.0 [facility] Comment on above: Order Comment: CLEAN CATCH Performed By: #### M 100.678, L400.0001 ####[facility] [address] [place], [address] PROT DIPSTX 30 mg/dl Abnormal Negative [facility] Comment on above: Order Comment: CLEAN CATCH Performed By: #### M 100.678, L400.0001 ####[facility] [address] [place], [address] SP.GR. DIPSTX 1.010 Normal 1.002-1.030 [facility] Comment on above: Order Comment: CLEAN CATCH Performed By: #### M 100.678, L400.0001 ####[facility] [address] [place], [address] UROBILI Normal Normal Normal [facility] Comment on above: Order Comment: CLEAN CATCH Performed By: #### M 100.678, L400.0001 ####[facility] [address] [place], [address] EPI,SQUAMOUS 0 SEEN Normal 0-5 [facility] Comment on above: Order Comment: CLEAN CATCH Performed By: #### M 100.678, L400.0001 ####[facility] [address] [place], [address] Mucus Ql (Urine sed) 0 SEEN Normal [facility] Comment on above: Order Comment: CLEAN CATCH Performed By: #### M 100.678, L400.0001 ####[facility] [address] [place], [address] RBC 0 SEEN Normal 0-5 [facility] Comment on above: Order Comment: CLEAN CATCH Performed By: #### M 100.678, L400.0001 ####[facility] [address] [place], [address] Urine blood detectionOrdered By: Velasquez Morales on 10-27-2024 Urine Occult Blood Negative Negative [facility] Urine clarityOrdered By: Gregor Morales on 10-27-2024 Clarity (U) Clear Clear [facility] Urine color determinationOrd ered By: Velasquez Morales on 10-27-2024 Color (U) Straw Yellow [facility] Urine cultureOrdered By: Gregor Morales on 10-27-2024 Bacteria identified Cx Nom (U) Mixed Gram Pos & Gram Neg Org Abnormal [facility] Urine leukocyte esterase det ection by dipstickOrdered By: Velasquez Morales on 10-27-2024 Leukocyte esterase Test strip Ql (U) 100 /ul High Negative [facility] Urine pHOrdered By: Velasquez Saab on 10-27-2024 pH (U) 7.0 [pH] 5.0 - 8.0 [facility] Urine sediment bacteria coun t by microscopy (number/high power field)Ordered By: Velasquez Morales on 10-27-2024 Bacteria LM.HPF (Urine sed) [#/Area] 1 /[HPF] None Seen [facility] Urine specific gravity measu rementOrdered By: Velasquez Morales on 10-27-2024 Specific gravity (U) [Rel density] 1.010 1.002-1.030 [facility] Urobilinogen Ql (U)Ordered B y: Velasquez Morales on 10-27-2024 Urine Urobilinogen Normal mg/dl Normal [facility] White blood cell countOrdere d By: Velasquez Morales on 10-27-2024 Urine WBC 10-25 SEEN /hpf 0-5 [facility] Wound Cultureon 10-27-2024 WC List Antibiotics Las t 48 Hours? NONE List Antibiotics to be Started? NONE Staphylococcus aureus Amount Growth 1+ Staphylococcus aureus: REACTION cefOXitin Susc Islt Doxycycline Islt GAYLA <=0.5 S Clindamycin Islt GAYLA 0.25 S Clindamycin.induced Susc Islt NEG Erythromycin Islt GAYLA <=0.25 S Gentamicin Islt GAYLA <=0.5 S Linezolid Islt GAYLA 2 S Moxifloxacin Islt GAYLA <=0.25 S Oxacillin Susc Islt <=0.25 S Tetracycline Islt GAYLA <=1 S TMP SMX Islt GAYLA <=10 S Vancomycin Islt GAYLA <=0.5 S Normal [facility] Comment on above: Performed By: #### M 100.2000, M100.3000, M100.4001 ####[facility] [address] [facility] [place], [address] Gram Stainon 10-26-2024 List Antibiotics Las t 48 Hours? NONE List Antibiotics to be Started? NONE Gram Stain No organisms seen No cells seen Normal [facility] Comment on above: Performed By: #### M 100.2000, M100.3000, M100.4001 ####[facility] [address] [place], [address] Wound Ctr History AND Physic josé miguel 10-25-2024 Wound Ctr History & Physical [facility] [address] [place] [address] H P Exam - Wound Care 10/25/24 1711 MR#: [id number] Acct: [id number] Name: FLEX KLINE Rep #: [id number] : 1940 84 From: Rita Calixto NP CHARGE ACCOUNT IDENTIFICATION CLERK-C PCP: Dr. Felix Montelongo MD Status:[facility] Location: History of Present Illness Date of Service: 10/25/24 Chief Complaint: Right posterior leg ulcer and sacral pressure History of Wound: 85 year old male with a history of Parkinson's presents for evaluation for a wounds on his right posterior leg and on his sacral area. He walks with a walker and admits to sitting for long periods of time. The right posterior leg ulcer occurred after he rests his feet on a wooden stool. With his Parkinson's disease, the shaking of his foot caused the stool to rub against his leg and cause a wound He also has significant swelling of his lower extremities (right is worse than left). This occurred several months ago. The erythema to his sacral area is due to pressure and sitting for too long. He has a history significant for CAD, CABG, DM, Parkinson's disease and HTN. Today he denies fever, chills, nausea or vomiting. Progress of Wound: Right posterior leg non healing ulcer with dry, scabbing non viable tissue present. He also has small ulcer on anterior leg, most likely from edema. +4 pitting edema, right leg worse than left. He admits to sitting for long periods of time with his legs dependent. He wears compression on his left but doesn't like it on his right. His sacral area is erythematous and dry but no open wounds. [facility] Medical History (Reviewed 10/27/24 @ 12:55 by Rita Calixto CHARGE ACCOUNT IDENTIFICATION CLERK, CHARGE ACCOUNT IDENTIFICATION CLERK-C) Diabetes GERD (gastroesophageal reflux disease) Cataract 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 heart disease of [place] coronary artery without angina pectoris Parkinson's disease Essential tremor CIDP (chronic inflammatory demyelinating polyneuropathy) Diabetic neuropathy HTN (hypertension) HLD (hyperlipidemia) Type II diabetes mellitus, uncontrolled History of chest pain Home Medications ???Medication ???Instructions ???Recorded ???Last Taken ???Type lisinopril 10 mg tablet 10 mg PO DAILY blood pressure 11/15/15 07/28/18 06:00 History metformin 1,000 mg tablet 1,000 mg PO BIDCM blood sugar 11/15/15 07/28/18 06:00 History tamsulosin 0.4 mg capsule 0.4 mg PO DAILY prostate 02/28/16 07/28/18 18:00 History cholecalciferol (vitamin D3) 125 5,000 unit PO MOWEFR supplement 06/15/18 07/27/18 18:00 History mcg (5,000 unit) capsule clopidogrel 75 mg tablet 75 mg PO DAILY Heart 07/20/18 07/27/18 12:00 History aspirin 81 mg tablet,delayed 81 mg PO DAILY@0800 [facility] 07/28/18 07/28/18 06:00 History release nitroglycerin 0.4 mg sublingual 0.4 mg PO PRN PRN CHEST PAIN 07/28/18 07/28/18 History tablet folic acid 800 mcg tablet 0.8 mg PO BID 06/17/19 Unknown History gabapentin 800 mg tablet 800 mg PO TID 06/17/19 Unknown History atorvastatin 80 mg tablet 80 mg PO QHS CHOLESTEROL 06/20/19 Unknown History blood-glucose meter (Accu-Chek #200 ea 05/03/20 Unknown Rx [facility] Plus Meter) magnesium oxide 400 mg (241.3 mg 800 mg PO DAILY 01/21/21 Unknown History magnesium) tablet ranolazine 500 mg tablet,extended 500 mg PO BID 04/21/21 Unknown History release,12 hr carbidopa 25 mg-levodopa 100 mg 1 tab translingual TID 06/13/21 Unknown History disintegrating tablet levothyroxine 50 mcg tablet 50 mcg PO DAILY 06/13/21 Unknown History blood sugar diagnostic (Accu-Chek #200 ea 10/28/22 Unknown Rx Bettina Plus test strips) glimepiride 2 mg tablet 4 mg (2 x 2 mg) PO DAILY blood 05/07/23 Unknown Rx sugar #90 tabs Farxiga 5 mg tablet (dapagliflozin 5 mg PO DAILY #90 tabs 09/29/24 Unknown Rx propanediol) amoxicillin 875 mg-potassium 1 tab PO Q12H 10 days #20 tabs 10/27/24 Unknown Rx clavulanate 125 mg tablet Allergy/AdvReac Type Severity Reaction Status Date / Time Beta-Blockers Allergy Severe ANGIOEDEMA Verified 10/27/24 10:34 (Beta-Adrenergic Bloc Family History (Reviewed 10/27/24 @ 12:55 by Rita Calixto CHARGE ACCOUNT IDENTIFICATION CLERK, CHARGE ACCOUNT IDENTIFICATION CLERK-C) Mother Alzheimer's dementia Diabetes Father CAD (coronary artery disease) Heart disease Brother CAD (coronary artery disease) Daughter Arthritis Surgical History (Reviewed 10/27/24 @ 12:55 by Rita Calixto CHARGE ACCOUNT IDENTIFICATION CLERK, CHARGE ACCOUNT IDENTIFICATION CLERK-C) 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 Normal [facility] Absolute lymphocyte counton 06-29-2023 Lymphocytes Auto (Unsp spec) [#/Vol] 0.81 10*3/uL 0.83-4.51 [facility] Basophil percentageon 2022 Basophils/100 WBC (Bld) 0.2 % 0-1 [facility] Bilirubin [Mass/Vol] 0.80 mg/dL 0.20-1.00 [facility] Comment on above: For patients on eltr ombopag therapy, use of [place] TBIL is not recommended. Chloride [Moles/Vol] 101 mmol/L 98-107 [facility] Cholesterol [Mass/Vol] 170 mg/dL <200 [facility] Comment on above: <200 mg/dL Desirable 200-240 mg/dL Borderline >240 mg/dL High Risk Eosinophils/100 WBC (Bld) 3.3 % 0-5 [facility] Glucose [Mass/Vol] 119 mg/dL 74-[address] [facility] Comment on above: Fasting Glucose resu lt from 100 to 125 mg/dL suggests IMPAIRED HOMEOSTASIS per A.D.A. criteria. Neutrophils (Bld) [#/Vol] 3.9 10*3/uL 2.0-7.7 [facility] Neutrophils/100 WBC (Bld) 70.4 % 47-70 [facility] Potassium [Moles/Vol] 4.8 mmol/L 3.5-5.1 [facility] Protein [Mass/Vol] 7.2 g/dL 6.4-8.[address] [facility] Sodium [Moles/Vol] 134 mmol/L 136-[address] [facility] Triglyceride [Mass/Vol] 57 mg/dL <199 [facility] Comment on above: The drugs N-Acetylcy steine and Metamizole may falsely depress this assay.Serum Triglycerides Reference Interval Normal <150 mg/dL Borderline high 150 - 199 mg/dL High 200 - 499 mg/dL Very High > or = 500 mg/dL WBC (Bld) [#/Vol] 5.5 10*3/uL 4.4-11.[address] [facility] Blood erythrocytes count (nu mber/volume)on 06-29-2023 RBC (Bld) [#/Vol] 4.22 10*6/uL 4.6-6.2 [facility] Blood hemoglobin measurement (mass/volume)on 06-29-2023 Hemoglobin (Bld) [Mass/Vol] 14.4 g/dL 13.0-16.5 [facility] Blood lymphocytes/100 leukoc yteson 06-29-2023 Lymphocytes/100 WBC (Bld) 14.8 % 19-41 [facility] Blood monocytes/100 leukocyt eson 06-29-2023 Monocytes/100 WBC (Bld) 11.1 % 0-10 [facility] Blood platelet mean volumeon 06-29-2023 Platelet mean volume (Bld) [Entitic vol] 9.7 fL 6.2-12.0 [facility] Determination of erythrocyte mean corpuscular volume (MCV)on 06-29-2023 MCV (RBC) [Entitic vol] 96.9 fL 80-94 [facility] Hematocrit Auto (Bld) [Volum e fraction]on 06-29-2023 Hematocrit (Bld) [Volume fraction] 40.9 % 40-54 [facility] Laboratory - Chemistry and C hemistry - challengeon 06-29-2023 ALP [Catalytic activity/Vol] 59 U/L 45-117 [facility] ALT [Catalytic activity/Vol] 24 U/L 16-61 [facility] CO2 [Moles/Vol] 27.0 mmol/L 21.0-32.0 [facility] Globulin (S) [Mass/Vol] 3.3 g/dL 2.2-4.2 [facility] Urea nitrogen/Creatinine [Mass ratio] 18.1 mg/mg 10-20 [facility] Laboratory - Hematology and Cell countson 06-29-2023 Erythrocyte distribution width (RBC) [Entitic vol] 42.5 fL 35.1-43.9 [facility] Erythrocyte distribution width (RBC) [Ratio] 11.9 % 11.6-14.6 [facility] Immature granulocytes/100 WBC (Bld) 0.200 % 0.0-0.9 [facility] Comment on above: IG% - Immature Granu locytes (promyelocytes, myelocytes and metamyelocytes) > 1% indicates that a LEFT SHIFT is Present. MCH (RBC) [Entitic mass] 34.1 pg 27.0-32.0 [facility] Nucleated RBC/100 WBC (Bld) [Ratio] 0 % 0-5 [facility] MCHC Auto (RBC) [Mass/Vol]on 06-29-2023 MCHC (RBC) [Mass/Vol] 35.2 g/dL 32-36 [facility] No Panel Informationon 06-29 Estimated GFR (MDRD) Amer 56 mL/min >60 [facility] Comment on above: GFR Calc Estimated GFR (MDRD) Non-Af Amer 46 mL/min >60 [facility] Comment on above: Non- GFR Calc Prostate Specific Antigen Screen 3.35 ng/mL 0.00-4.00 [facility] Comment on above: This test was perfor med using the TPSA assay method for [employer] chemistry system. Values obtained with differentassay methods cannot be used interchangably.When changing PSA assays in the course of monitoring apatient, additional sequential testing should be carriedout to confirm baseline values. Thyroid Stimulating Hormone (TSH) 4.85 uIU/mL 0.358-3.74 [facility] Urine Microalbumin/Creatinine Ratio 26.8 mg/g CRE <30 [facility] Platelets bldon 06-29-2023 Platelets (Bld) [#/Vol] 217 10*3/uL 150-450 [facility] Serum or plasma albumin jesenia urement (mass/volume)on 06-29-2023 Albumin [Mass/Vol] 3.9 g/dL 3.2-5.[address] [facility] Serum or plasma albumin/glob ulin mass ratioon 06-29-2023 Albumin/Globulin [Mass ratio] 1.2 {ratio} 0.9-2.4 [facility] Serum or plasma calcium jesenia urement (mass/volume)on 06-29-2023 Calcium [Mass/Vol] 9.0 mg/dL 8.5-10.[address] [facility] Serum or plasma cholesterol in HDL measurement (mass/volume)on 06-29-2023 Cholesterol in HDL [Mass/Vol] 56 mg/dL >40 [facility] Comment on above: The drugs N-Acetylcy steine and Metamizole may falsely depress this assay. Reference Range HDL <40 mg/dL Low HDL Cholesterol HDL >or= 60 mg/dL High HDL Cholesterol Serum or plasma cholesterol in VLDL measurement (mass/volume)on 06-29-2023 Cholesterol in VLDL [Mass/Vol] 11 mg/dL 5-40 [facility] Serum or plasma creatinine m easurement (mass/volume)on 06-29-2023 Creatinine [Mass/Vol] 1.55 mg/dL 0.70-1.30 [facility] Comment on above: The validity of the calculated GFR & GFRAA in patients over 70 years has not been determined. Clinical correlation is essential. Serum or plasma low density lipoprotein (LDL) cholesterol measurement (mass/volume)on 06-29-2023 Cholesterol in LDL [Mass/Vol] 103 mg/dL 0-130 [facility] Serum or plasma urea nitroge n measurement (mass/volume)on 06-29-2023 Urea nitrogen [Mass/Vol] 28 mg/dL 7-18 [facility] Thin prep Papanicolaou smear with manual screeningon 06-29-2023 Thin prep Papanicolaou smear with manual screening 21 U/L 15-37 [facility] Thin prep Papanicolaou smear with manual screening 6 5-15 [facility] Thin prep Papanicolaou smear with manual screening 32.2 mg/L NO RANGE EST. [facility] Urine creatinine measurement (mass/volume)on 06-29-2023 Creatinine (U) [Mass/Vol] 120.00 mg/dL NO RANGE EST. [facility] Whole blood hemoglobin A1c/t otal hemoglobin ratio (mass fraction)on 06-29-2023 HbA1c (Bld) [Mass fraction] 6.9 % 3.8-5.6 [facility] Comment on above: Normal < 5.7 % Predi abetic 5.7 - 6.4 % Diabetic >or= 6.5 % Please note range changes. Basophil percentageon 2021 Bilirubin [Mass/Vol] 0.70 mg/dL 0.20-1.00 [facility] Work Phone: Comment on above: For patients on eltr ombopag therapy, use of [place] TBIL is not recommended. Chloride [Moles/Vol] 100 mmol/L 98-107 [facility] Work Phone: Cholesterol [Mass/Vol] 180 mg/dL <200 [facility] Work Phone: Comment on above: <200 mg/dL Desirable 200-240 mg/dL Borderline >240 mg/dL High Risk Glucose [Mass/Vol] 138 mg/dL 74-[address] [facility] Work Phone: Comment on above: Fasting Glucose resu lt greater than or equal to 126 mg/dL suggests DIABETES MELLITUS per A.D.A. criteria. Potassium [Moles/Vol] 4.4 mmol/L 3.5-5.1 [facility] Work Phone: Protein [Mass/Vol] 7.5 g/dL 6.4-8.[address] [facility] Work Phone: Sodium [Moles/Vol] 135 mmol/L 136-[address] [facility] Work Phone: Triglyceride [Mass/Vol] 54 mg/dL <199 [facility] Work Phone: Comment on above: The drugs N-Acetylcy steine and Metamizole may falsely depress this assay.Serum Triglycerides Reference Interval Normal <150 mg/dL Borderline high 150 - 199 mg/dL High 200 - 499 mg/dL Very High > or = 500 mg/dL Laboratory - Chemistry and C hemistry - challengeon 06-04-2022 ALP [Catalytic activity/Vol] 66 U/L 45-117 [facility] Work Phone: ALT [Catalytic activity/Vol] 35 U/L 16-61 [facility] Work Phone: CO2 [Moles/Vol] 29.0 mmol/L 21.0-32.0 [facility] Work Phone: Globulin (S) [Mass/Vol] 3.4 g/dL 2.2-4.2 [facility] Work Phone: Urea nitrogen/Creatinine [Mass ratio] 18.2 mg/mg 10-20 [facility] Work Phone: Laboratory - Hematology and Cell countson 06-04-2022 HbA1c (Bld) [Mass fraction] 6.9 % [facility] Work Phone: No Panel Informationon 06-04 Estimated GFR (MDRD) Amer 56 mL/min >60 [facility] Work Phone: Comment on above: GFR Calc Estimated GFR (MDRD) Non-Af Amer 46 mL/min >60 [facility] Work Phone: Comment on above: Non- GFR Calc Thyroid Stimulating Hormone (TSH) 4.27 uIU/mL 0.358-3.74 [facility] Work Phone: Urine Microalbumin/Creatinine Ratio 97.5 mg/g CRE <30 [facility] Work Phone: Serum or plasma albumin jesenia urement (mass/volume)on 06-04-2022 Albumin [Mass/Vol] 4.1 g/dL 3.2-5.[address] [facility] Work Phone: Serum or plasma albumin/glob ulin mass ratioon 06-04-2022 Albumin/Globulin [Mass ratio] 1.2 {ratio} 0.9-2.4 [facility] Work Phone: Serum or plasma calcium jesenia urement (mass/volume)on 06-04-2022 Calcium [Mass/Vol] 9.0 mg/dL 8.5-10.[address] [facility] Work Phone: Serum or plasma cholesterol in HDL measurement (mass/volume)on 06-04-2022 Cholesterol in HDL [Mass/Vol] 59 mg/dL >40 [facility] Work Phone: Comment on above: The drugs N-Acetylcy steine and Metamizole may falsely depress this assay. Reference Range HDL <40 mg/dL Low HDL Cholesterol HDL >or= 60 mg/dL High HDL Cholesterol Serum or plasma cholesterol in VLDL measurement (mass/volume)on 06-04-2022 Cholesterol in VLDL [Mass/Vol] 11 mg/dL 5-40 [facility] Work Phone: Serum or plasma creatinine m easurement (mass/volume)on 06-04-2022 Creatinine [Mass/Vol] 1.54 mg/dL 0.70-1.30 [facility] Work Phone: Comment on above: The validity of the calculated GFR & GFRAA in patients over 70 years has not been determined. Clinical correlation is essential. Serum or plasma low density lipoprotein (LDL) cholesterol measurement (mass/volume)on 06-04-2022 Cholesterol in LDL [Mass/Vol] 110 mg/dL 0-130 [facility] Work Phone: Serum or plasma urea nitroge n measurement (mass/volume)on 06-04-2022 Urea nitrogen [Mass/Vol] 28 mg/dL 7-18 [facility] Work Phone: Thin prep Papanicolaou smear with manual screeningon 06-04-2022 Thin prep Papanicolaou smear with manual screening 27 U/L 15-37 [facility] Work Phone: Thin prep Papanicolaou smear with manual screening 6 5-15 [facility] Work Phone: Thin prep Papanicolaou smear with manual screening 116.0 mg/L NO RANGE EST. [facility] Work Phone: Urine creatinine measurement (mass/volume)on 06-04-2022 Creatinine (U) [Mass/Vol] 119.00 mg/dL NO RANGE EST. [facility] Work Phone: Echocardiogramon 07-10-2021 Echocardiography [facility] , [address] [place] [address], [address], [place] [address] and TRANSTHORACIC ECHOCARDIOGRAM REPORT Patient Name: FLEX Dhaliwal Physician: [id number] Diamond Hammer MD Study Date: 07/10/2021 Referring Physician: DAVID BABCOCK MRN/PID: [id number] PCP: Accession/Order#: [id number] Department Location: [facility] Date of : 1940 Fellow: Gender: M Nurse: Admit Date: Beam House Inspector: Tono Blake RDCS Admission Status: Outpatient Additional Staff: Height: 180.34 cm CC Report to: Weight: 81.65 kg Study Type: Echocardiogram BSA: 2.02 m2 Blood Pressure: 141 /77 mmHg Diagnosis/ICD: I25.10-Atherosclerotic heart disease of [place] coronary artery without angina pectoris Indication: Coronary artery disease Procedure/CPT: Echo Complete w Full [id number] Patient History: Pertinent History: CAD s/p CABG x3; edema; chest pressure; DM II; HTN; HLD. Study Detail: The following Echo studies were performed: M-Mode, 2D, Doppler and color flow. Technically challenging study due to body habitus. PHYSICIAN INTERPRETATION: Left Ventricle: The left ventricular systolic function is normal, with an estimated ejection fraction of 60%. There are no regional wall motion abnormalities. The left ventricular cavity size is normal. The left ventricular septal wall thickness is mildly increased. Spectral Doppler shows an impaired relaxation pattern of left ventricular diastolic filling. Left Atrium: The left atrium is normal in size. Right Ventricle: The right ventricle is normal in size. There is normal right ventricular global systolic function. Right Atrium: The right atrium is normal in size. Aortic Valve: The aortic valve is trileaflet. There is trivial aortic valve regurgitation. The peak instantaneous gradient of the aortic valve is 4.3 mmHg. Mitral Valve: The mitral valve is normal in structure. There is no evidence of mitral valve regurgitation. Tricuspid Valve: The tricuspid valve is structurally normal. No evidence of tricuspid regurgitation. Pulmonic Valve: The pulmonic valve is not well visualized. There is no indication of pulmonic valve regurgitation. Pericardium: There is no pericardial effusion noted. Aorta: The aortic root is normal. CONCLUSIONS: 1. The left ventricular systolic function is normal with a 60% estimated ejection fraction. 2. Spectral Doppler shows an impaired relaxation pattern of left ventricular diastolic filling. QUANTITATIVE DATA SUMMARY: 2D MEASUREMENTS: Normal Ranges: Ao Root d: 3.70 cm (2.0-3.7cm) LAs: 3.77 cm (2.7-4.0cm) IVSd: 1.36 cm (0.6-1.1cm) LVPWd: 0.96 cm (0.6-1.1cm) LVIDd: 3.93 cm (3.9-5.9cm) LVIDs: 2.60 cm LV Mass Index: 76.0 g/m2 LV % FS 33.8 % LA VOLUME: Normal Ranges: LA Vol A4C: 30.8 ml (22+/-6mL/m2) LA Vol A2C: 44.5 ml LA Vol BP: 37.1 ml LA Vol Index A4C: 15.3 ml/m2 LA Vol Index A2C: 22.1 ml/m2 LA Vol Index BP: 18.4 ml/m2 LA Volume Index: 18.4 ml/m2 LA Vol A4C: 28.3 ml LA Vol A2C: 43.3 ml RA VOLUME BY A/L METHOD: Normal Ranges: RA Area A4C: 14.3 cm2 AORTA MEASUREMENTS: Normal Ranges: Asc Ao, d: 3.70 cm (2.1-3.4cm) LV SYSTOLIC FUNCTION BY 2D PLANIMETRY (MOD): Normal Ranges: EF-A4C View: 63.0 % (>55%) EF-A2C View: 62.4 % EF-Biplane: 62.2 % LV DIASTOLIC FUNCTION: Normal Ranges: MV Peak E: 0.56 m/s (0.7-1.2 m/s) MV Peak A: 0.73 m/s (0.42-0.7 m/s) E/A Ratio: 0.76 (1.0-2.2) MV e' 0.08 m/s (>8.0) MV A Dur: 145.58 msec E/e' Ratio: 7.43 (<8.0) MV DT: 289 msec (150-240 msec) PulmV Sys Antonia: 48.61 cm/s PulmV Allen Antonia: 32.03 cm/s PulmV S/D Antonia: 1.52 PulmV A Revs Antonia: 38.81 cm/s PulmV A Revs Dur: 119.89 msec AORTIC VALVE: Normal Ranges: AoV Vmax: 1.04 m/s (<1.7m/s) AoV Peak P.3 mmHg (<20mmHg) LVOT Max Antonia: 1.03 m/s (<1.1m/s) LVOT VTI: 22.21 cm LVOT Diameter: 2.35 cm (1.8-2.4cm) AoV Area,Vmax: 4.28 cm2 (2.5-4.5cm2) RIGHT VENTRICLE: RV 1 3.8 cm RV 2 3.2 cm RV 3 5.5 cm TAPSE: 17.0 mm RV s' 0.09 m/s TRICUSPID VALVE/RVSP: Normal Ranges: Peak TR Velocity: 2.13 m/s RV Syst Pressure: 26.2 mmHg (< 30mmHg) PULMONIC VALVE: Normal Ranges: PV Max Antonia: 0.8 m/s (0.6-0.9m/s) PV Max P.7 mmHg Pulmonary Veins: PulmV A Revs Dur: 119.89 msec PulmV A Revs Antonia: 38.81 cm/s PulmV Allen Antonia: 32.03 cm/s PulmV S/D Antonia: 1.52 PulmV Sys Antonia: 48.61 cm/s [id number] Diamond Hammer MD Electronically signed on 07/10/2021 at 8:33:27 PM Final Normal [facility] Blood Pressure Cuff Sizeon 0 06-24-2021 Fall risk assessment b) One or more fall s in the last year [facility] Work Phone: Tobacco use status [facility] b) No [facility] Work Phone: Blood Pressure Cuff Size Adult [facility] Work Phone: Office Visit (Vascular Medic ine Office Visit)on 06-24-2021 Follow-up visit Diagnoses/Problems Assessed Coronary artery disease (414.00) (I25.10) *Orders Coronary artery disease Cardiac Catheterization Lab Procedures; Status:Active; Requested for:24Jun2021; Echocardiogram; Status:Resulted - Requires Verification; Done: 10Jul2021 10:14AM AMA Intake Activity Log Entry by Abeba Mark ([email or web address]) on 2021-07-03 17:14 Status Change : Confirmed - SMN Module AMA Intake updated by Abeba Mark ([email or web address]) on 2021-07-03 17:14 New Recipient: BillieDavid montalvo New Appointment Date: 2021-07-10 10:00 AMA Intake Activity Log Entry by Abeba Mark ([email or web address]) on 2021-07-03 17:14 Status Change: To Confirmed - N/A Coronary artery disease (414.00) (I25.10) Patient Instructions 1. You are going to be scheduled for a cardiac catheterization and echocardiogram 2. We will call you with the date and time for both tests 3. Please do NOT eat any food on the day of your cardiac catheterization 4. Please do NOT take your metformin on the day of your cardiac catheterization 5. Take all your other medications with sips of water the morning of your examination COVID-19 Risk Consent for: Cardiac Catheterization Provider has reviewed the risk of xander COVID-19 and the impact during the post-operative or post-procedure recovery process. Provider Impressions Mr. Kline is a 81 year old man with hypertension diagnosed with chronic ischemic heart disease sp three vessel coronary artery bypass graft surgery (PEACE-OM, VG-LAD, VG-PDA) who presents for evaluation of chest pain. Reports that in 2006 had diagnosis of chronic ischemic heart disease after workup for shortness of breath that lead to CABG. Reports did well for many years. Subsequently had chest pain (angina) for which he had two stents- reports symptoms never improved. Recently had cardiac catheterization without revascularization. He reports that he always has some degree of chest pain but that it worsens when he ambulates or climbs steps. He appears to have been admitted in April with unstable angina (CP, diaphoresis, pre-syncope). He brings in five still images from a cardiac catheterization which demonstrates that following: right dominant, LM unclear, LCX moderate disease, LAD JUNCTION MAKER, RCA JUNCTION MAKER, VG-LAD patent, PEACE-OM patent, VG-PDA occluded. Was told by his primary dice table person that he may need atherectomy to one of his vessels (?Cx). Additionally, it appears afterwards he had a MPI that demonstrated no inducible ischemia, normal LV size and function (low risk study) performed on 04-23-2021 and in response to this, it was decided that no further intervention was necessary. 1. Chronic ischemic heart disease 2. Hypertension 3. Hyperlipidemia We will plan for cardiac catheterization. We will also check an echocardiogram to ensure a structurally normal heart. Continue GDMT for IHD: ASA, clopidogrel 75 mg daily, atorvastatin 40 mg QHS. Continue ranolazine and ISMR. [facility] Chief Complaint Chief Complaints Visit For: Other New patient visit for CAD. History of Present IllnessMr. Kline is a 81 year old man with hypertension diagnosed with chronic ischemic heart disease sp three vessel coronary artery bypass graft surgery (PEACE-OM, VG-LAD, VG-PDA) who presents for evaluation of chest pain. Reports that in 2006 had diagnosis of chronic ischemic heart disease after workup for shortness of breath that lead to CABG. Reports did well for many years. Subsequently had chest pain (angina) for which he had two stents- reports symptoms never improved. Recently had cardiac catheterization without revascularization. He reports that he always has some degree of chest pain but that it worsens when he ambulates or climbs steps. He appears to have been admitted in April with unstable angina (CP, diaphoresis, pre-syncope). He brings in five still images from a cardiac catheterization which demonstrates that following: right dominant, LM unclear, LCX moderate disease, LAD JUNCTION MAKER, RCA JUNCTION MAKER, VG-LAD patent, PEACE-OM patent, VG-PDA occluded. Was told by his primary dice table person that he may need atherectomy to one of his vessels (?Cx). Additionally, it appears afterwards he had a MPI that demonstrated no inducible ischemia, normal LV size and function (low risk study) performed on 04-23-2021 and in response to this, it was decided that no further intervention was necessary. Disc Pad Knockout Worker: Harjinder Jones [facility] *Active Problems Problems Diabetes mellitus (250.00) (E11.9) Hyperlipemia (272.4) (E78.5) Hypertension (401.9) (I10) Coronary artery disease (414.00) (I25.10) Surgical History Problems History of Cardiac catheterization History of Coronary artery bypass graft Current Meds Medication NameInstruction Aspirin EC 325 MG Oral Tablet Delayed ReleaseTAKE 1 TABLET EVERY OTHER DAY Atorvastatin Calcium 40 MG Oral TabletTAKE 1 TABLET AT BEDTIME. Carbidopa-Levodopa 25-100 MG Oral TabletTAKE 2 TABLETS 3 TIMES DAILY. Clopidogrel Bisulfate (more content not included)... Normal [employer] Tobacco Screening.on 021 Fall risk assessment a) No falls within the last year [facility] [place] Work Phone: Tobacco use status [facility] b) No [facility] [place] Work Phone: Vital Signs Date Time Vital Sign Value Performing Clinician Facility 2025 10:58-0400 Body height 176.5 cm Harjinder Jones MD Work Phone: [facility] 2025 10:58-0400 Body mass index (BMI) [Ratio] 26.2 kg/m2 Harjinder Jones MD Work Phone: [facility] 2025 10:58-0400 Body weight 81.65 kg Harjinder Jones MD Work Phone: [facility] 2025 10:58-0400 Diastolic blood pressure 60 mm[Hg] Harjinder Jones MD Work Phone: [facility] 2025 10:58-0400 Heart rate 82 /min Harjinder Jones MD Work Phone: [facility] 2025 10:58-0400 Respiratory rate 16 /min Harjinder Jones MD Work Phone: [facility] 2025 10:58-0400 SaO2% (BldA) [Mass fraction] 98 % Harjinder Jones MD Work Phone: [facility] 2025 10:58-0400 Systolic blood pressure 138 mm[Hg] Harjinder Jones MD Work Phone: [facility] 03-02-2025 10:37-0400 Body mass index (BMI) [Ratio] 26.2 kg/m2 Kwan Estrella MD Work Phone: [facility] 03-02-2025 10:37-0400 Body weight 81.65 kg Kwan Estrella MD Work Phone: [facility] 03-02-2025 10:37-0400 Diastolic blood pressure 63 mm[Hg] Kwan Estrella MD Work Phone: [facility] 03-02-2025 10:37-0400 Heart rate 69 /min Kwan Estrella MD Work Phone: [facility] 03-02-2025 10:37-0400 SaO2% (BldA) [Mass fraction] 99 % Kwan Estrella MD Work Phone: [facility] 03-02-2025 10:37-0400 Systolic blood pressure 113 mm[Hg] Kwan Estrella MD Work Phone: [facility] 02-27-2025 10:56-0400 Body height 180.[address] Felix Montelongo MD Work Phone: [facility] 02-27-2025 10:56-0400 Diastolic blood pressure 78 mm[Hg] Dr. Felix Montelongo MD Work Phone: [facility] 02-27-2025 10:56-0400 Heart rate 62 /min Dr. Felix Montelongo MD Work Phone: [facility] 02-27-2025 10:56-0400 SaO2% (BldA) [Mass fraction] 96 % Dr. Felix Montelongo MD Work Phone: [facility] 02-27-2025 10:56-0400 Systolic blood pressure 168 mm[Hg] Dr. Felix Montelongo MD Work Phone: [facility] 01-22-2025 13:41-0500 Body height 176.5 cm Harjinder Jones MD Work Phone: [facility] 01-22-2025 13:41-0500 Body mass index (BMI) [Ratio] 25.62 kg/m2 Harjinder Jones MD Work Phone: [facility] 01-22-2025 13:41-0500 Body weight 79.83 kg Harjinder Jones MD Work Phone: [facility] 01-22-2025 13:41-0500 Diastolic blood pressure 70 mm[Hg] Harjinder Jones MD Work Phone: [facility] 01-22-2025 13:41-0500 Heart rate 91 /min Harjinder Jones MD Work Phone: [facility] 01-22-2025 13:41-0500 Respiratory rate 14 /min Harjinder Jones MD Work Phone: [facility] 01-22-2025 13:41-0500 SaO2% (BldA) [Mass fraction] 97 % Harjinder Jones MD Work Phone: [facility] 01-22-2025 13:41-0500 Systolic blood pressure 156 mm[Hg] Harjinder Jones MD Work Phone: [facility] 11-30-2024 08:36-0500 Body height 180.[address] Felix Montelongo MD Work Phone: [facility] 11-30-2024 08:36-0500 Body mass index (BMI) [Ratio] 24.1 kg/m2 Dr. Felix Montelongo MD Work Phone: [facility] 11-30-2024 08:36-0500 Body weight 78.[address] Felix Montelongo MD Work Phone: [facility] 11-30-2024 08:36-0500 Diastolic blood pressure 72 mm[Hg] Dr. Felix Montelongo MD Work Phone: [facility] 11-30-2024 08:36-0500 Heart rate 93 /min Dr. Felix Montelongo MD Work Phone: [facility] 11-30-2024 08:36-0500 Respiratory rate 18 /min Dr. Felix Montelongo MD Work Phone: [facility] 11-30-2024 08:36-0500 Systolic blood pressure 138 mm[Hg] Dr. Felix Montelongo MD Work Phone: [facility] 11-01-2024 15:00-0500 Body temperature 97.6 [degF] Dr. Felix Montelongo MD Work Phone: [facility] 11-01-2024 15:00-0500 Diastolic blood pressure 54 mm[Hg] Dr. Felix Montelongo MD Work Phone: [facility] 11-01-2024 15:00-0500 Heart rate 76 /min Dr. Felix Montelongo MD Work Phone: [facility] 11-01-2024 15:00-0500 Respiratory rate 18 /min Dr. Felix Montelongo MD Work Phone: [facility] 11-01-2024 15:00-0500 SaO2% (BldA) [Mass fraction] 94 % Dr. Felix Montelongo MD Work Phone: [facility] 11-01-2024 15:00-0500 Systolic blood pressure 104 mm[Hg] Dr. Felix Montelongo MD Work Phone: [facility] 11-01-2024 06:00-0500 Body mass index (BMI) [Ratio] 24.3 kg/m2 Dr. Felix Montelongo MD Work Phone: [facility] 11-01-2024 06:00-0500 Body weight [address] Felix Montelongo MD Work Phone: [facility] 01-04-2024 15:09-0500 Body height 176.5 cm Rocío Denbow PA-C Work Phone: [facility] 01-04-2024 15:09-0500 Body weight 83.01 kg Rocío Denbow PA-C Work Phone: [facility] 01-04-2024 15:09-0500 Diastolic blood pressure 66 mm[Hg] Rocío Denbow PA-C Work Phone: [facility] 01-04-2024 15:09-0500 Heart rate 73 /min Rocío Denbow PA-C Work Phone: [facility] 01-04-2024 15:09-0500 Respiratory rate 14 /min Rocío Denbow PA-C Work Phone: [facility] 01-04-2024 15:09-0500 SaO2% (BldA) [Mass fraction] 97 % Rocío Denbow PA-C Work Phone: [facility] 01-04-2024 15:09-0500 Systolic blood pressure 122 mm[Hg] Rocío Denbow PA-C Work Phone: [facility] 06-04-2022 08:28-0400 Body height 182.[address] Felix Monteolngo Work Phone: [facility] Work Phone: 06-04-2022 08:28-0400 Body mass index (BMI) [Ratio] 26 kg/m2 Dr. Felix Montelongo Work Phone: [facility] Work Phone: 06-04-2022 08:28-0400 Body temperature 96.5 [degF] Dr. Felix Montelongo Work Phone: [facility] Work Phone: 06-04-2022 08:28-0400 Body weight 87.[address] Felix Montelongo Work Phone: [facility] Work Phone: 06-04-2022 08:28-0400 Diastolic blood pressure 76 mm[Hg] Dr. Felix Montelongo Work Phone: [facility] Work Phone: 06-04-2022 08:28-0400 Heart rate 58 /min Dr. Felix Montelongo Work Phone: [facility] Work Phone: 06-04-2022 08:28-0400 Respiratory rate 18 /min Dr. Felix Montelongo Work Phone: [facility] Work Phone: 06-04-2022 08:28-0400 SaO2% (BldA) [Mass fraction] 99 % Dr. Felix Montelongo Work Phone: [facility] Work Phone: 06-04-2022 08:28-0400 Systolic blood pressure 124 mm[Hg] Dr. Felix Montelongo Work Phone: [facility] Work Phone: 06-24-2021 13:44-0400 Body height 182.88 cm Ref[facility] Work Phone: 06-24-2021 13:44-0400 Body mass index (BMI) [Ratio] 24.36 kg/m2 Referring Provider Unknown FH-Iwttbkzbvl-Engg dview [facility] Work Phone: 06-24-2021 13:44-0400 Body surface area Derived from formula 2.04 m2 Referring Provider Unknown SM-Kmottcvwst-Lryk dview [facility] [address] Work Phone: 06-24-2021 13:44-0400 Body weight 81.47 kg Referring Provider Unknown LV-Gjxiqyqhhc-Mnsw dview [facility] [address] Work Phone: 06-24-2021 13:44-0400 Diastolic blood pressure 75 mm[Hg] Referring Provider Unknown RF-Oprvqqvpal-Ryjz dview [facility] Work Phone: 06-24-2021 13:44-0400 Heart rate 81 /min Referring Provider Unknown XR-Qfxagxutmj-Jcgw dview [facility] Work Phone: 06-24-2021 13:44-0400 Systolic blood pressure 138 mm[Hg] Referring Provider Unknown CZ-Zgwyvcqxdg-Fotu dview [facility] Work Phone: 06-24-2021 13:44-0400 0 1 Referring Provider Unknown MC-Zwwhlwqpic-Apzt dview [facility] Work Phone: Comment on above: [facility] 05-15-2021 11:29-0400 Body height 182.88 cm Referring Provider Unknown DJ-Gvehbshezf-Vczt na [address] [place] Work Phone: 05-15-2021 11:29-0400 Body mass index (BMI) [Ratio] 24.28 kg/m2 Referring Provider Unknown GN-Uljzfrfvri-Blhm na [address] [place] Work Phone: 05-15-2021 11:29-0400 Body surface area Derived from formula 2.03 m2 Referring Provider Unknown LU-Faxndclfad-Kqgh na [address] [place] Work Phone: 05-15-2021 11:29-0400 Body weight 81.19 kg Referring Provider Unknown BQ-Sxbmwluzie-Qbrc na [address] [place] Work Phone: 05-15-2021 11:29-0400 Diastolic blood pressure 86 mm[Hg] Referring Provider Unknown IM-Ibhfwsfppt-Eiwx na [address] [place] Work Phone: 05-15-2021 11:29-0400 Heart rate 82 /min Referring Provider Unknown MX-Tpizpdxdhb-Gpaa na [address] [place] Work Phone: 05-15-2021 11:29-0400 SaO2% (BldA) [Mass fraction] 94 % Referring Provider Unknown EK-Fuzuebmdqz-Eble na [address] [place] Work Phone: 05-15-2021 11:29-0400 Systolic blood pressure 180 mm[Hg] Referring Provider Unknown NV-Wqewtctowt-Ztnp na [address] [place] Work Phone: 05-15-2021 11:29-0400 0 1 Referring Provider Unknown NC-Hcktbquehw-Oilz na [address] [place] Work Phone: Comment on above: [facility] Encounters Encounter Date Encounter Type Care Provider Facility Start: 03-29-2025 ambulatory Buzz ZHANG Fa cility:[facility] Start: 03-29-2025 Registered Referred Buzz Rainey MD [facility] Start: 2025 End: 2025 ambulatory HARJINDER JONES Facility:[facility] Start: 2025 End: 2025 Patient encounter procedure Harjinder Jones MD Work Phone: Cardiology Comment on above: Primary hypertension (Primary Dx); Coronary artery disease involving [place] coronary artery of [place] heart without angina pectoris Start: 03-02-2025 End: 03-02-2025 Patient encounter procedure Kwan Estrella MD Work Phone: [facility] Cardiology Joseph Comment on above: Coronary artery dise ase involving [place] coronary artery of [place] heart, unspecified whether angina present (Primary Dx); PAC (premature atrial contraction); PVC (premature ventricular contraction); Atrial tachycardia (HCC) Start: 03-02-2025 End: 03-02-2025 ambulatory HARJINDER JONES [facility] Start: 03-01-2025 End: 03-01-2025 Departed Referred Buzz LeeShlomo Potter/Octavia Start: 02-28-2025 End: 03-01-[address] Felix Montelongo MD Work Phone: [facility] Work Phone: Start: 02-28-2025 End: 02-28-2025 Departed Referred Buzz LeeShlomo Ashraf Start: 02-27-2025 End: 02-27-[address] Ozzy Bro MD -[facility] Work Phone: Start: 02-27-2025 End: 02-28-2025 ambulatory Buzz ZHANG Facility:[facility] Start: 02-26-2025 End: 02-26-[address] Felix Montelongo MD Work Phone: [facility] Work Phone: Start: 02-26-2025 End: 02-26-2025 Patient encounter procedure Abeba Peacock CHARGE ACCOUNT IDENTIFICATION CLERK-C -[facility] Work Phone: Start: 01-31-2025 End: 01-31-[address] Felix Montelongo MD Work Phone: [facility] Work Phone: Start: 01-31-2025 End: 01-31-2025 [facility] Start: 01-31-2025 End: 01-31-2025 ambulatory Buzz ZHANG Facility:[facility] Start: 01-22-2025 End: 01-22-2025 ambulatory HARJINDER JONES Facility:[facility] Start: 01-22-2025 End: 01-22-2025 ambulatory HARJINDER JONES Facility:[facility] Start: 01-22-2025 End: 01-22-2025 Patient encounter procedure Harjinder Jones MD Work Phone: Cardiology Comment on above: Palpitations (Primar y Dx); Diastolic congestive heart failure, unspecified HF chronicity (HCC); Atherosclerosis of [place] coronary artery of [place] heart without angina pectoris Start: 01-04-2025 End: 01-04-2025 Patient encounter procedure Abeba Peacock NP-C -[facility] Work Phone: Start: 01-04-2025 End: 01-04-2025 ambulatory Abeba Peacock NP Facility:[facility] Start: 01-04-2025 Registered Referred Buzz Potter/Octavia Start: 12-26-2024 End: 12-26-2024 ambulatory Buzz Rainey Facility:[facility] Start: 12-26-2024 End: 12-26-[address] [facility] Work Phone: Start: 12-21-2024 End: 12-21-2024 ambulatory Abeba Peacock NP Facility:[facility] Start: 12-21-2024 End: 12-21-2024 Patient encounter procedure Abeba Peacock NP-Tae -[facility] Work Phone: Start: 12-19-2024 End: 12-19-2024 ambulatory Buzz Rainey Facility:[facility] Start: 12-19-2024 End: 12-19-[address] [facility] Work Phone: Start: 12-07-2024 ambulatory Felix Montelongo Facility:[facility] Start: 12-07-2024 Registered Referred Buzz LeeShlomo Ashraf Start: 12-04-2024 End: 12-04-2024 ambulatory Abeba Peacock NP Facility:[facility] Start: 12-04-2024 End: 12-04-2024 Patient encounter procedure Abeba Peacock NP-Tae -[facility] Work Phone: Start: 12-02-2024 ambulatory Felixroosevelt Montelongo Facility:[facility] Start: 11-30-2024 End: 11-30-[address] Margie Gary MD -[facility] Work Phone: Start: 11-30-2024 End: 11-30-2024 ambulatory Margie Gary Facility:[facility] Start: 11-30-2024 [facility] Start: 11-30-2024 Registered Referred Buzz Huddleston Start: 11-23-2024 ambulatory [facility] Facility:[facility] Start: 11-23-2024 Registered Referred Buzz Huddleston Start: 11-16-2024 ambulatory [facility] Facility:[facility] Start: 11-16-2024 Registered Referred Buzz Huddleston Start: 11-09-2024 ambulatory Alexandratamanna Rainey OLS Fa cility:[facility] Start: 11-09-2024 Registered Referred Buzz Huddleston Start: 11-07-2024 End: 11-07-2024 ambulatory Buzz De La Pazlavelle Facility:[facility] Start: 11-07-2024 End: 11-07-[address] Buzz Rainey MD -[facility] Work Phone: Start: 11-03-2024 ambulatory Alexandratamanna Rainey OLS Fa cility:[facility] Start: 11-03-2024 Registered Referred Buzz Huddleston Start: 11-02-2024 End: 11-02-2024 ambulatory Abeba Peacock CHARGE ACCOUNT IDENTIFICATION CLERK Facility:[facility] Start: 11-02-2024 End: 11-02-2024 Patient encounter procedure Abeba Peacock CHARGE ACCOUNT IDENTIFICATION CLERK-C -[facility] Work Phone: Start: 11-01-2024 Non-patient / Non-visit Dr. Sung Richardson [facility] Work Phone: Start: 10-31-2024 ambulatory Ozzy Bro [facility] Start: 10-31-2024 Non-patient / Non-visit Dr. Sung Richardson [facility] Work Phone: Start: 10-30-2024 Non-patient / Non-visit Dr. Sung westbrook [facility] Work Phone: Start: 10-29-2024 Non-patient / Non-visit Dr. Marilu Laurent [facility] Work Phone: Start: 10-28-2024 Non-patient / Non-visit Dr. Marilu Laurent [facility] Work Phone: Start: 10-28-2024 ambulatory Angela Ramirez Facility:[facility] Start: 10-28-2024 Non-patient / Non-visit Dr. Angela gilmore MD -[facility] Start: 10-27-2024 ambulatory Sulma Romero Facility:[facility] Start: 10-27-2024 End: 11-01-2024 Evaluation and management of inpatient Dr. Sung Rhodes [facility] Work Phone: Start: 10-26-2024 End: 11-10-2024 ambulatory Harjinder Jones MD Work Phone: Cardiology Comment on above: I m getting out of b reath. I think my symptoms are more consistent with congestive heart failure than heartburn. The ranolazine is not working because I am out of breath. I am getting out of breath every couple of days. What should be done about it? Start: 10-25-2024 ambulatory Rita Calixto CHARGE ACCOUNT IDENTIFICATION CLERK Fa cility:[facility] Start: 10-25-2024 End: 11-21-2024 ambulatory Rita Calixto NP Facility:[facility] Start: 09-11-2024 End: 09-11-2024 Refill Harjinder Jones MD Work Phone: [address] [place] [address] Comment on above: Refill Request Start: 02-01-2024 End: 02-01-2024 ambulatory Rocío Wagner PA-C Work Phone: [facility] [place] Comment on above: Controlled type 2 di abetes mellitus without complication, without long-term current use of insulin (HCC) (Primary Dx); Acquired hypothyroidism; Stage 3a chronic kidney disease (HCC); Parkinson's disease, unspecified whether dyskinesia present, unspecified whether manifestations fluctuate (HCC) Start: 02-01-2024 End: 02-01-2024 Telemedicine consultation with patient Rocío RODASTae Work Phone: [facility] Start: 01-05-2024 ambulatory Rocío Wagner ARMINDA Work Phone: [facility] [place] Comment on above: Roller thing. Would like a prescription to [facility]. Start: 01-05-2024 Telephone encounter Felix Montelongo MD Work Phone: [facility] [place] Comment on above: patient update on fa ll Start: 01-04-2024 End: 01-04-2024 Patient encounter procedure Rocío Cookroque HILLIARD Work Phone: [facility] [place] Comment on above: Controlled type 2 di abetes mellitus without complication, without long-term current use of insulin (HCC) (Primary Dx); Acquired hypothyroidism; Parkinson's disease, unspecified whether dyskinesia present, unspecified whether manifestations fluctuate; CIDP (chronic inflammatory demyelinating polyneuropathy) ([facility]); Essential tremor; Post herpetic neuralgia; Stage 3a chronic kidney disease (HCC) Start: 07-07-2023 End: 07-07-2023 ambulatory Marni Hudson MD Work Phone: Neurology Comment on above: Parkinson disease (H CC) (Primary Dx); Slow transit constipation Start: 07-07-2023 End: 07-07-2023 Telemedicine consultation with patient Marni Hudson MD Work Phone: [facility] Start: 06-29-2023 End: 06-29-2023 ambulatory [facility] Work Phone: Start: 06-29-2023 End: 06-29-2023 Patient encounter procedure [facility] Work Phone: Start: 02-19-2023 Telephone encounter Marni whiting MD Work Phone: Neurology Comment on above: Orders (Mailed order s ) Start: 02-19-2023 End: 02-19-2023 Office outpatient visit 25 minutes Marni Hudson MD Work Phone: Neurology Comment on above: Parkinson disease (H CC) (Primary Dx); Muscle stiffness; Muscle pain Start: 12-18-2022 End: 12-18-2022 Office outpatient visit 40 minutes Marni Hudson MD Work Phone: Neurology Comment on above: Parkinson disease (H CC) (Primary Dx); Essential tremor Start: 11-10-2022 ambulatory Marni rodrigues MD Work Phone: Neurology Comment on above: Hand shaking Start: 07-09-2022 Telephone encounter Marni whiting MD Work Phone: Neurology Comment on above: Opened In Error (/) Start: 06-04-2022 End: 06-04-[address] Felix Montelongo Work Phone: [facility] Start: 06-04-2022 End: 06-04-[address] Felix Montelongo Work Phone: [facility] Start: 05-26-2022 Telephone encounter Marni whiting MD Work Phone: Neurology Comment on above: Opened In Error Start: 05-17-2022 E-mail encounter fro m caregiver Marni Hudson MD Work Phone: [facility] Start: 05-17-2022 Patient encounter procedure Marni Hudson MD Work Phone: Neurology Comment on above: Request an Appointme nt Start: 03-25-2022 Telephone encounter Marni whiting MD Work Phone: Neurology Comment on above: upcoming appointment (pre-rooming phone call) Start: 06-24-2021 Current tobacco non- user cad cap copd pv dm Referring Provider Unknown OS-Iaxepcjjre-Htdyzgeab [facility] [address] Work Phone: Start: 05-15-2021 Patient encounter procedure Referring Provider Unknown CH-Gnleoemghc-Kedztk [address] [place] Work Phone: Start: 10-25-2018 Ambulatory KARI MANE Facility :[facility] Start: 02-23-2018 End: 02-23-2018 Ambulatory KARI MANE Facility:[facility] Start: 01-31-2018 Ambulatory NICOLA MAGAÑAPAL Facil ity:[facility] Procedures Date Procedure Procedure Detail Performing Clinician Start: 03-02-2025 Ecg routine ecg w/le ast 12 lds w/i&r Kwan Estrella MD Work Phone: Start: 02-28-[address] Antonio Montelongo MD Work Phone: Start: 02-28-2025 Urnls dip stick/tabl et reagent auto microscopy Dr. Felix Montelongo MD Work Phone: Start: 01-31-2025 Vitamin D, 25-hydrox y measurement Dr. Felix Montelongo MD Work Phone: Comment on above: Vitamin D StatusDefi ciency: <20 ng/mL (50nmol/L)Insufficiency: 20-30 ng/mL (50-75 nmol/L)Sufficiency: 30-100 ng/mL (75-250 nmol/L)Toxicity: >100 ng/mL (>250 nmol/L) Start: 01-04-2025 Measurement of renal function Dr. Felix Montelongo MD Work Phone: Comment on above: GFR Calc Start: 12-07-2024 Measurement of renal function Dr. Felix Montelongo MD Work Phone: Comment on above: GFR Calc Start: 11-30-2024 Measurement of renal function Dr. Felix Montelongo MD Work Phone: Comment on above: GFR Calc Start: 10-27-2024 SARS-CoV-2, Influenz a & RSV (PCR) Dr. Felix Montelongo MD Work Phone: Start: 10-27-[address] Antonio Montelongo MD Work Phone: Start: 10-27-2024 Plain chest X-ray Dr. Felicia Montelongo MD Work Phone: Start: 06-29-2022 Adult depression scr eening assessment Marni Hudson MD Work Phone: Start: 09-24-2021 Adult depression scr eening assessment Marni Hudson MD Work Phone: Start: 06-24-2021 Follow-up visit Start: 05-15-2021 Follow-up visit Start: 06-17-2007 History of coronary artery bypass grafting S/P CABG x 4 Dr. Margie Gary MD Comment on above: SVG to LAD, SVG to D iagonal, SVG to PDA, and PEACE to lateral CX per Dr. Garfield Dempsey, [facility] Cardiac catheterization Refe rring Provider Unknown Coronary artery bypass graft Referring Provider Unknown Plan of Treatment Date Care Activity Detail Author Start: 03-06-2026 End: 03-06-2026 Patient encounter procedure 03/06/2026 11:00 AM EDT Office Visit [facility] [address] [place] [address] Kwan Estrella MD [address] [place], [place] [id number] 1 yr f/u. eg [facility] Comment on above: 1 yr f/u. eg Start: 10-01-2025 End: 10-01-2025 Patient encounter procedure 10/01/2025 10:40 AM EST Office Visit Cardiology [address] [place] [address] Harjinder Jones MD [address] [place] [address] (Fax) 6 month follow up Cardiology Comment on above: 6 month follow up Start: 03-08-2025 Covid-19 Vaccine ( season) Covid-19 Vaccine ( season) [facility] Start: 2025 End: 2025 Patient encounter procedure 2025 11:00 AM EDT Office Visit Cardiology [address] [place] [address] Harjinder Jones MD [address] [place] [address] 6 weeek follow up Cardiology Comment on above: 6 weeek follow up Start: 01-22-2025 End: 04-23-2025 Natriuretic peptide.B prohormone N-Terminal [Mass/volume] in Serum or Plasma [facility] Comment on above: Expected: 01/22/2025 , Expires: 04/23/2025 Start: 01-22-2025 End: 04-23-2025 Thyrotropin [Units/volume] in Serum or Plasma [facility] Comment on above: Expected: 01/22/2025 , Expires: 04/23/2025 Start: 01-22-2025 End: 01-22-2025 Patient encounter procedure 01/22/2025 1:40 PM EST Office Visit Cardiology [address] [place] [address] Harjinder Jones MD [address] [place] [address] 6 month follow up from appt 11/29/23 Cardiology Comment on above: 6 month follow up [facility] appt 11/29/23 Start: 11-22-2024 Advance Directive Discussion Advance Directive Discussion [facility] Start: 11-01-2024 Patient discharge [facility] Start: 10-29-2024 Following clinical pathway protocol [facility] Start: 10-28-2024 Following clinical pathway protocol [facility] Start: 10-28-2024 [facility] Start: 10-27-2024 Following clinical pathway protocol [facility] Start: 10-27-2024 Assessment of risk o f venous thromboembolism [facility] Start: 10-27-2024 Care regimes management [facility] Start: 10-27-2024 Insertion of cathete r into peripheral vein [facility] Start: 10-27-2024 Measuring intake and output [facility] Start: 10-27-2024 Notification of physician [facility] Start: 10-27-2024 Providing care accor ding to standard [facility] Start: 10-27-2024 Provision of activit y privileges [facility] Start: 10-27-2024 Referral to occupati onal therapist [facility] Start: 10-27-2024 Referral to service [facility] Start: 10-27-2024 End: 10-27-2024 [facility] Start: 10-27-2024 Admission procedure [facility] Start: 07-23-2024 Covid-19 Vaccine () Covid-19 Vaccine () [facility] Start: 07-23-2024 Influenza vaccination Influenza Vacc ine (#1) [facility] Start: 03-13-2024 End: 06-12-2024 Thyrotropin [Units/volume] in Serum or Plasma TSH BLD Lab Routine Acquired hypothyroidism Expected: 03/13/2024, Expires: 06/12/2024 [facility] Work Phone: Comment on above: Expected: 03/13/2024 , Expires: 06/12/2024 Start: 02-01-2024 End: 05-02-2024 CBC W Auto Differential panel - Blood CBC + DIFF Lab Routine Stage 3a chronic kidney disease (HCC) Controlled type 2 diabetes mellitus without complication, without long-term current use of insulin (HCC) Parkinson's disease, unspecified whether dyskinesia present, unspecified whether manifestations fluctuate (HCC) Expected: 02/01/2024, Expires: 05/02/2024 [facility] Work Phone: Comment on above: Expected: 02/01/2024 , Expires: 05/02/2024 Start: 02-01-2024 End: 05-02-2024 Hemoglobin A1c in Blood HGB A1C Lab Routine Controlled type 2 diabetes mellitus without complication, without long-term current use of insulin (HCC) Expected: 02/01/2024, Expires: 05/02/2024 [facility] Work Phone: Comment on above: Expected: 02/01/2024 , Expires: 05/02/2024 Start: 01-04-2024 End: 04-04-2024 Basic metabolic 2000 panel - Serum or Plasma [facility] Work Phone: Comment on above: Expected: 01/04/2024 , Expires: 04/04/2024 Start: 01-04-2024 End: 04-04-2024 Thyrotropin [Units/volume] in Serum or Plasma [facility] Work Phone: Comment on above: Expected: 01/04/2024 , Expires: 04/04/2024 Start: 11-22-2023 Advance Directive Discussion Advance Directive Discussion [facility] Start: 11-22-2023 Depression Assessment Depression Ass essment [facility] Start: 07-23-2023 Influenza vaccination INFLUENZA (#1) [facility] Start: 06-29-2023 Adult depression screening assessment DEPRESSION SCREENING [facility] Start: 01-19-2023 COVID-19 VACCINE (6 - Pfizer series) COVID-19 VACCINE (6 - Pfizer series) [facility] Start: 11-22-2022 ADVANCE DIRECTIVE DISCUSSION ADVANCE DIRECTIVE DISCUSSION [facility] Start: 11-22-2022 DEPRESSION ASSESSMENT DEPRESSION ASS ESSMENT [facility] Start: 09-24-2022 Adult depression screening assessment DEPRESSION SCREENING [facility] Start: 07-23-2022 Influenza vaccination INFLUENZA (#1) [facility] Start: 06-04-2022 Testosterone [facility] Work Phone: Start: 05-01-2022 COVID-19 VACCINE (5 - Booster for Pfizer series) COVID-19 VACCINE (5 - Booster for Pfizer series) [facility] Start: 12-15-2021 COVID-19 VACCINE (4 - Booster for Pfizer series) COVID-19 VACCINE (4 - Booster for Pfizer series) [facility] Start: 11-22-2021 ADVANCE DIRECTIVE DISCUSSION ADVANCE DIRECTIVE DISCUSSION [facility] Start: 11-22-2021 DEPRESSION ASSESSMENT DEPRESSION ASS ESSMENT [facility] Start: 07-10-2021 ECHO, Provider: MG JACEY CARD, Status: Pen, Time: 10:00 AM [id number] view [facility] Work Phone: Start: 02-23-2019 Hepatitis B surface antibody level LDL CHOLESTEROL [facility] Start: 10-28-2016 Pneumococcal Vaccine : 50+ (2 of 2 - PPSV23) Pneumococcal Vaccine: 50+ (2 of 2 - PPSV23) [facility] Start: 10-28-2016 Pneumococcal Vaccine : 65+ (2 of 2 - PPSV23 or PCV20) Pneumococcal Vaccine: 65+ (2 of 2 - PPSV23 or PCV20) [facility] Start: 09-13-2012 Urine microalbumin profile DTaP,Tdap,Td Vaccine (1 - Tdap) [facility] Start: 07-11-2010 Urine microalbumin profile DTAP,TDAP,TD (1 - Tdap) [facility] Start: 2007 PNEUMOVAX AGE 65 AND OVER WITH 5YR LOOKBACK (#1) PNEUMOVAX AGE 65 AND OVER WITH 5YR LOOKBACK (#1) [facility] Start: 1992 SHINGRIX VACCINE (1 of 2) HINTON GRIX VACCINE (1 of 2) [facility] Start: 1960 ANNUAL PCP TEAM BEEF LUGGER BRYCE DISEASE VISIT ANNUAL PCP TEAM CHRONIC DISEASE VISIT [facility] Start: 1960 Anxiety Screening Anxiety Screening [facility] Start: 1960 Depression Screening Depression Scre ening [facility] Start: 1952 3 comp foot exam completed DIABETIC FOOT EXAM [facility] Start: 1952 Diabetic foot examination Diabetic F oot Exam [facility] Start: 1952 Glaucoma screening Dilated Retinal E xam [facility] Start: 1952 Hepatitis B screening URINE AL BUMIN:CREATININE RATIO [facility] Start: 1952 Hepatitis C antibody , confirmatory test DILATED RETINAL EXAM [facility] Start: 1948 PNEUMOCOCCAL: 65+ (1 - PCV) PNEUMOCOCCAL: 65+ (1 - PCV) [facility] Start: 1947 Hemoglobin A1c measurement HbA1C [facility] Start: 1947 Hemoglobin A1c/Hemoglobin.total in Blood HBA1C [facility] NM Heart Views W str ess and W radionuclide IV [facility] OUTSIDE VENDOR CARDI AC OUTPATIENT EXTENDED RHYTHM RECORDING (WITHOUT TELEMETRY) OUTSIDE VENDOR CARDIAC OUTPATIENT EXTENDED RHYTHM RECORDING (WITHOUT TELEMETRY) Holter Routine Palpitations Ordered: 01/22/2025 [facility] Work Phone: Comment on above: Ordered: 01/22/2025 Patient Education Urinary Tract Infections in Men UTIs Chest Pain [facility] Work Phone: Patient referral [facility] Work Phone: T4 free measurement [facility] Work Phone: Testosterone Free [Mass/volume] in Serum or Plasma [facility] Work Phone: Testosterone measurement [facility] Work Phone: [facility] Immunizations Immunization Date Immunization Notes Care Provider [facility] 09-13-2023 influenza virus vaccine, unspecified formulation Harjinder Jones MD Work Phone: [facility] 09-23-2020 influenza, injectabl e, quadrivalent, preservative free [facility] 09-23-2020 influenza, seasonal, injectable Dr. Felix Montelongo Work Phone: [facility] Work Phone: 09-05-2014 pneumococcal conjuga te vaccine, [address] Felix Montelongo Work Phone: [facility] 07-23-2014 influenza, injectabl e, quadrivalent, preservative free [facility] 07-23-2014 influenza, seasonal, injectable Dr. Felix Montelongo Work Phone: [facility] Work Phone: 07-10-2010 tetanus and diphther ia toxoids, adsorbed, preservative free, for adult use (2 Lf of tetanus toxoid and 2 Lf of diphtheria toxoid) Marni Hudson MD Work Phone: [facility] Work Phone: 08-22-2007 pneumococcal conjuga te vaccine, 7 valent Marni Hudson MD Work Phone: [facility] Payers Date Payer Category Payer Self-pay [id number] 2022 Medicare [employer] [place] [id number] 2022-Present [phone] [address] [place] [id number] O [id number] 2022 Medicare ([place] Care[place] [id number] 2022 Medicare [id number] 2020 Medicare [employer]ETNA MEDICARE A ETNA MEDICARE PPO [id number] 2020-Present [phone] [address] [place] [address] O [id number] 2016 Medicare [id number] Private Health Insurance [id number] [id number] Private Health Insurance SDB VGRSY [id number] Private Health Insurance [id number] Unknown [employer] Unknown [id number] .2.462 Unknown [id number] 2.1.426959.3.579 .2.462 Unknown [id number] 2.0.1.858897.3.579 .2.462 Unknown [id number] 2.16840.1.860522.3.579 .2.462 Unknown [id number] 2.16840.1.864220.3.579 .2.462 Unknown [id number] 2.16.840.1.580428.3.579 .2.462 Unknown [id number] 2.840.1.299899.3.579 .2.462 Unknown [id number] 2.840.1.339173.3.579 .2.462 Unknown [id number] 2.840.1.657179.3.579 .2.462 Unknown [id number] 2.840.1.124392.3.579 .2.462 Unknown [id number] 2.840.1.295888.3.579 .2.462 Unknown [id number] 2.840.1.366799.3.579 .2.462 Unknown [id number] 2.840.1.561864.3.579 .2.462 Unknown [id number] 2.840.1.343711.3.579 .2.462 Unknown [id number] 2.840.1.852587.3.579 .2.462 Unknown [id number] 2.840.1.368866.3.579 .2.462 Unknown [id number] 2.840.1.005211.3.579 .2.462 Unknown [id number] 2.840.1.015931.3.579 .2.462 Unknown [id number] 2.840.1.748898.3.579 .2.462 Unknown [id number] 2.840.1.555998.3.579 .2.462 Unknown [id number] 2.840.1.025244.3.579 .2.462 Unknown [id number] 2.16.840.1.831877.3.579 .2.462 Unknown [id number] 2.16.840.1.185259.3.579 .2.462 Unknown [id number] 2.16.840.1.644799.3.579 .2.462 Unknown [id number] 2.16.840.1.881403.3.579 .2.462 Unknown [id number] 2.16.840.1.340382.3.579 .2.462 Unknown [id number] 2.16.840.1.727168.3.579 .2.462 Unknown [id number] 2.16.840.1.965247.3.579 .2.462 Social History Date Type Detail Facility Start: 06-29-2022 End: 11-09-2024 Tobacco smoking status NHIS Never smoked tobacco [facility] Start: 10-20-2021 End: 2025 Alcohol intake Lifetime non-drinker (finding) [facility] Start: 09-25-2021 History SDOH Alcohol Frequency 1 [facility] Start: 1940 Sex Assigned At Not on file C [facility] Start: 06-04-2022 End: 05-07-2023 Tobacco smoking status RIIS Unknown if ever smoked [facility] Start: 04-21-2021 None [facility] Start: 04-21-2021 Non-smoker [facility] Start: 1940 Sex Assigned At Male [facility] Start: 06-29-2022 Tobacco use and exposure Smokeless tobacco non-user [facility] Start: 06-19-2022 End: 06-29-2022 Exposure to SARS-CoV-2 (event) Not sure [facility] Start: 06-29-2022 End: 07-07-2023 History of Social function [facility] Start: 06-29-2022 End: 07-07-2023 Tobacco use panel [facility] Adult Depression Screening Assessment 2 [facility] Start: 07-28-2018 Spouse/ Signif icant Other [facility] Start: 02-23-2025 Sex Male (finding) [facility] Medical Equipment Procedure Code Equipment Code Equipment Origin al Text Equipment Identifier Dates Blood Sugar Diagnostic (Accu-Chek Bettina Plus Test Strp) strip Start: 05-03-2020 Blood Sugar Diagnostic (Accu-Chek Bettina Plus Test Strp) strip Start: 10-28-2022 Blood Sugar Diagnostic (Accu-Chek Bettina Plus Test Strp) strip Start: 05-03-2020 End: 08-18-2022 Blood Sugar Diagnostic (Accu-Chek Bettina Plus Test Strp) strip Start: 08-18-2022 End: 10-28-2022 Blood Sugar Diagnostic (Accu-Chek Bettina Plus Test Strp) strip Start: 05-03-2020 End: 08-18-2022 Blood Sugar Diagnostic (Accu-Chek Bettina Plus Test Strp) strip Start: 08-18-2022 End: 10-28-2022 Blood Sugar Diagnostic (Accu-Chek Bettina Plus Test Strp) strip Start: 10-28-2022 End: 11-01-2024 Blood Sugar Diagnostic (Accu-Chek Bettina Plus Test Strp) strip Start: 05-03-2020 End: 08-18-2022 Blood Sugar Diagnostic (Accu-Chek Bettina Plus Test Strp) strip Start: 08-18-2022 End: 10-28-2022 Blood Sugar Diagnostic (Accu-Chek Bettina Plus Test Strp) strip Start: 10-28-2022 End: 11-01-2024 Blood Sugar Diagnostic (Accu-Chek Bettina Plus Test Strp) strip Start: 05-03-2020 End: 08-18-2022 Blood Sugar Diagnostic (Accu-Chek Bettina Plus Test Strp) strip Start: 08-18-2022 End: 10-28-2022 Blood Sugar Diagnostic (Accu-Chek Bettina Plus Test Strp) strip Start: 10-28-2022 End: 11-01-2024 Goals Date Patient Goal Desired Activity /State Personal health goal Functional Status Date Assessment Result Facility 11-01-2024 Functional status [facility] Work Phone: 04-23-2021 Are you deaf, or do you have serious difficulty hearing No 04/23/2021 5:34 PM Randi Scott, LINSEY No [facility] 04-23-2021 Are you blind, or do you have serious difficulty seeing, even when wearing glasses No 04/23/2021 5:34 PM Randi Scott, LINSEY No [facility] 04-23-2021 Do you have serious difficulty walking or climbing stairs No 04/23/2021 5:34 PM Randi Scott, LINSEY No [facility] 04-23-2021 Do you have difficul ty dressing or bathing No 04/23/2021 5:34 PM Randi Scott, LINSEY No [facility] 04-23-2021 Because of a physica l, mental, or emotional condition, do you have difficulty doing errands alone such as visiting a physician's office or shopping No 04/23/2021 5:34 PM Randi Scott RN No [facility] Mental Status Date Assessment Result Facility 11-01-2024 Cognitive function Voice/Name [facility] Work Phone: 04-23-2021 Because of a physica l, mental, or emotional condition, do you have serious difficulty concentrating, remembering, or making decisions No 04/23/2021 5:34 PM Randi Scott RN No [facility] Clinical Notes 03-25-2022 to 2025 Harjinder Jones MD - 2025 12:12 PM EDTPatient Kwan Chand MD - 03/02/2025 10:20 AM EDT Note Date & Type Note Facility 2025 Note HNO ID: [id number] Author: HARJINDER JONES MD Service: ? Author Type: Physician Type: Progress Notes Filed: 2025 12:16 Note Text: Harjinder Jones MD Interventional Cardiology [address] [place], [place] [id number] Chief Complaint Patient presents with: Follow Up: 6 week follow up, c/o chest pain HISTORY OF PRESENT ILLNESS: Mr. Kline is a 85 year old male seen in my office today for follow-up patient had a prior history of severe lac vieux coronary artery disease with prior history of bypass surgery consisted of a PEACE to the LAD and a vein graft to the circumflex and the right coronary artery cardiac catheterizations in 2020 shows occluded vein graft to the right but patent vein graft to the circumflex and patent PEACE to the LAD hypertensive heart disease doing well from a cardiac point of view patient is wheelchair-bound does have essential tremor and Parkinson's very limited in terms of physical activity He does complain of chest pain which is sharp none anginal and bilateral leg swelling He is on good medical therapy Cardiac Risk Factors age (male over 45, female over 55), hyperlipidemia, hypertension, family history of CAD 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) Coronary atherosclerosis Diabetes (HCC) Herpes zoster with other nervous system complications(053.19) Hyperlipidemia Hypertrophy of prostate without urinary obstruction and other lower urinary tract symptoms (LUTS) Hyposmolality and/or hyponatremia Intervertebral lumbar disc disorder with myelopathy, lumbar region Mononeuritis of unspecified site 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) Peripheral vascular disease, unspecified Type II or unspecified type diabetes mellitus without mention of complication, uncontrolled Unspecified hereditary and idiopathic peripheral neuropathy PAST SURGICAL HISTORY Procedure Laterality Date COLONOSCOPY FLX DX W/COLLJ SPEC WHEN PFRMD 02/09/2013 Colonoscopy COLONOSCOPY FLX DX W/COLLJ SPEC WHEN PFRMD 02/24/16 Colonoscopy HEART SURGERY HX PAST SURGICAL HISTORY OF 2006 CABG FAMILY HISTORY Problem Relation Age of Onset Ischemic Heart Disease Father Alzheimer's Disease Mother Ischemic Heart Disease Brother Hypertension No Family History Coronary Artery Disease No Family History Diabetes No Family History Thyroid No Family History Blood Disease No Family History Blood Clots No Family History Factor 5 Leiden No Family History Stroke No Family History Systemic Lupus Erythematosus No Family History DVT No Family History Multiple Sclerosis No Family History Bipolar disorder No Family History Schizophrenia No Family History Dementia No Family History Aneurysm No Family History COPD No Family History Social History Tobacco Use Smoking status: Never Smokeless tobacco: Never Substance Use Topics Alcohol use: Never Drug use: No ALLERGIES Allergen Reactions Beta Blockers [Beta* Shortness of Breath Tongue swelling Medications: Current Outpatient Medications Medication Sig Dispense Refill clopidogrel (PLAVIX) 75 mg tablet Take 75 mg by mouth once daily. isosorbide mononitrate ER (IMDUR) 30 mg 24 hr tablet Take 30 mg by mouth once daily. furosemide (LASIX) 20 mg tablet Take 1 tablet by mouth every 48 hours. 45 tablet 2 lisinopril (ZESTRIL) 5 mg tablet Take 1 tablet by mouth once daily. 30 tablet 3 nitroglycerin sublingual (NITROSTAT) 0.4 mg SL tablet Dissolve 1 tablet under the tongue as needed. FOR CHEST PAIN. IF NO RELIEF CALL 911 30 tablet 3 WALKER ROLLATOR SEAT WITH 6 WHEELS - RED Use as directed. 1 Each 0 gabapentin (NEURONTIN) 800 mg tablet Take 1 tablet by mouth three times a day for 90 days. 2 atorvastatin (LIPITOR) 80 mg tablet Take 0.5 tablets by mouth once daily. 90 tablet 3 carbidopa-levodopa (SINEMET 25-100) 25-100 mg per tablet Take 2 tablets by mouth three times daily. 540 tablet 3 FARXIGA 5 mg tablet Take 5 mg by mouth once daily. aspirin 325 mg tablet Take 325 mg by mouth once daily. cholecalciferol, vitamin D3, (VITAMIN D3 ORAL) Take by mouth. VIT B COMPLEX 100 COMBO NO.2 ORAL Take by mouth. PRN glimepiride (AMARYL) 4 mg tablet Take 4 mg by mouth twice daily with meals. tamsulosin ER (FLOMAX) 0.4 mg cap Take 1 capsule by mouth once daily. 90 capsule 3 magnesium oxide (MAG-OX) 400 mg (241.3 mg magnesium) tablet Take 1 tablet by mouth once daily. levothyroxine (SYNTHROID) 50 mcg tablet Take 50 mcg by mouth once daily. metFORMIN 1,000 mg ORAL tablet Take 1,000 mg by mouth twice daily with meals. FOLIC ACID 800 MCG TAB Take one(1) tablet two(2) times daily. 0 carbidopa (LODOSYN) 25 mg tab Take 1 tablet by mouth three times daily. With every Sinemet dose 90 tablet 11 B infantis/B ani/B tori/B bifid (PROBIOTIC 4X ORAL) Take by mouth. No current facility-administered medications for this visit. (more content not included)... [facility] 2025 History of Present illness Narrative Images from the original note were not included. Harjinder Jones MD Interventional Cardiology [address] [place] [id number] Chief Complaint Patient presents with: Follow Up: 6 week follow up, c/o chest pain HISTORY OF PRESENT ILLNESS: Mr. Kline is a 85 year old male seen in my office today for follow-up patient had a prior history of severe lac vieux coronary artery disease with prior history of bypass surgery consisted of a PEACE to the LAD and a vein graft to the circumflex and the right coronary artery cardiac catheterizations in 2020 shows occluded vein graft to the right but patent vein graft to the circumflex and patent PEACE to the LAD hypertensive heart disease doing well from a cardiac point of view patient is wheelchair-bound does have essential tremor and Parkinson's very limited in terms of physical activity He does complain of chest pain which is sharp none anginal and bilateral leg swelling He is on good medical therapy Cardiac Risk Factors age (male over 45, female over 55), hyperlipidemia, hypertension, family history of CAD 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) Coronary atherosclerosis Diabetes (HCC) Herpes zoster with other nervous system complications(053.19) Hyperlipidemia Hypertrophy of prostate without urinary obstruction and other lower urinary tract symptoms (LUTS) Hyposmolality and/or hyponatremia Intervertebral lumbar disc disorder with myelopathy, lumbar region Mononeuritis of unspecified site 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) Peripheral vascular disease, unspecified Type II or unspecified type diabetes mellitus without mention of complication, uncontrolled Unspecified hereditary and idiopathic peripheral neuropathy PAST SURGICAL HISTORY Procedure Laterality Date COLONOSCOPY FLX DX W/COLLJ SPEC WHEN PFRMD 02/09/2013 Colonoscopy COLONOSCOPY FLX DX W/COLLJ SPEC WHEN PFRMD 02/24/16 Colonoscopy HEART SURGERY HX PAST SURGICAL HISTORY OF 2006 CABG FAMILY HISTORY Problem Relation Age of Onset Ischemic Heart Disease Father Alzheimer's Disease Mother Ischemic Heart Disease Brother Hypertension No Family History Coronary Artery Disease No Family History Diabetes No Family History Thyroid No Family History Blood Disease No Family History Blood Clots No Family History Factor 5 Leiden No Family History Stroke No Family History Systemic Lupus Erythematosus No Family History DVT No Family History Multiple Sclerosis No Family History Bipolar disorder No Family History Schizophrenia No Family History Dementia No Family History Aneurysm No Family History COPD No Family History Social History Tobacco Use Smoking status: Never Smokeless tobacco: Never Substance Use Topics Alcohol use: Never Drug use: No ALLERGIES Allergen Reactions Beta Blockers [Beta* Shortness of Breath Tongue swelling Medications: Current Outpatient Medications Medication Sig Dispense Refill clopidogrel (PLAVIX) 75 mg tablet Take 75 mg by mouth once daily. isosorbide mononitrate ER (IMDUR) 30 mg 24 hr tablet Take 30 mg by mouth once daily. furosemide (LASIX) 20 mg tablet Take 1 tablet by mouth every 48 hours. 45 tablet 2 lisinopril (ZESTRIL) 5 mg tablet Take 1 tablet by mouth once daily. 30 tablet 3 nitroglycerin sublingual (NITROSTAT) 0.4 mg SL tablet Dissolve 1 tablet under the tongue as needed. FOR CHEST PAIN. IF NO RELIEF CALL 911 30 tablet 3 WALKER ROLLATOR SEAT WITH 6 WHEELS - RED Use as directed. 1 Each 0 gabapentin (NEURONTIN) 800 mg tablet Take 1 tablet by mouth three times a day for 90 days. 2 atorvastatin (LIPITOR) 80 mg tablet Take 0.5 tablets by mouth once daily. 90 tablet 3 carbidopa-levodopa (SINEMET 25-100) 25-100 mg per tablet Take 2 tablets by mouth three times daily. 540 tablet 3 FARXIGA 5 mg tablet Take 5 mg by mouth once daily. aspirin 325 mg tablet Take 325 mg by mouth once daily. cholecalciferol, vitamin D3, (VITAMIN D3 ORAL) Take by mouth. VIT B COMPLEX 100 COMBO NO.2 ORAL Take by mouth. PRN glimepiride (AMARYL) 4 mg tablet Take 4 mg by mouth twice daily with meals. tamsulosin ER (FLOMAX) 0.4 mg cap Take 1 capsule by mouth once daily. 90 capsule 3 magnesium oxide (MAG-OX) 400 mg (241.3 mg magnesium) tablet Take 1 tablet by mouth once daily. levothyroxine (SYNTHROID) 50 mcg tablet Take 50 mcg by mouth once daily. metFORMIN 1,000 mg ORAL tablet Take 1,000 mg by mouth twice daily with meals. FOLIC ACID 800 MCG TAB Take one(1) tablet two(2) times daily. 0 carbidopa (LODOSYN) 25 mg tab Take 1 tablet by mouth three times daily. With every Sinemet dose 90 tablet 11 B infantis/B ani/B tori/B bifid (PROBIOTIC 4X ORAL) Take by mouth. No current facility-administered medications for this visit. Review of Systems Constitutional: Negative for chills, diaphoresis, fever, malaise/fatigue and weight loss. HENT: Negative for congestion, ear discharge, ear pain, hearing loss, nosebleeds, sinus pain, sore throat and tinnitus. Eyes: Negative for blurred vision, double vision, photophobia, pain, discharge and redness. Respiratory: Negative for cough, hemoptysis, sputum production, shortness of breath, wheezing and stridor. Cardiovascular: Positive for chest pain and leg swelling. Negative for palpitations, orthopnea, claudication and PND. Gastrointestinal: Negative for abdominal pain, blood in stool, constipation, diarrhea, heartburn, melena, nausea and vomiting. Genitourinary: Negative for dysuria, flank pain, frequency, hematuria and urgency. Musculoskeletal: Negative for back pain, falls, joint pain, myalgias and neck pain. Skin: Negative for itching and rash. Neurological: Negative for dizziness, tingling, tremors, sensory change, speech change, focal weakness, seizures, loss of consciousness, weakness and headaches. Endo/Heme/Allergies: Negative for environmental allergies and polydipsia. Does not bruise/bleed easily. Psychiatric/Behavioral: Negative for depression, hallucinations, memory loss, substance abuse and suicidal ideas. The patient is not nervous/anxious and does not have insomnia. Physical Examination: Vitals:BP 138/60 Pulse 82 Resp 16 Ht 5' 9.5 (1.77m) Wt 180 lb (81.6kg) SpO2 98% BMI 26.21 kg/(m^2). BP w/Orthostatic Vitals Date and Time Orthostatic BP Orthostatic Pulse BP Pulse BP Position BP Site BP Cuff Size 03/05/25 1058 -- -- 138/60 82 Sitting Right Arm Large Adult Peak Flow Date and Time PF Resp 03/05/25 1058 -- 16 Last 2 Encounter Wt Readings: Date: Wt: 2025 81.6 kg (180 lb) 03/02/2025 81.6 kg (180 lb) Physical Exam Constitutional: General: He is not in acute distress. Appearance: He is not diaphoretic. HENT: Head: Normocephalic and atraumatic. Right Ear: External ear normal. Left Ear: External ear normal. Nose: Nose normal. Mouth/Throat: Pharynx: Oropharynx is clear. Eyes: General: Right eye: No discharge. Left eye: No discharge. Conjunctiva/sclera: Conjunctivae normal. Pupils: Pupils are equal, round, and reactive to light. Cardiovascular: Rate and Rhythm: Normal rate and regular rhythm. Heart sounds: Normal heart sounds, S1 normal and S2 normal. No murmur heard. No friction rub. No gallop. No S3 or S4 sounds. Pulmonary: Effort: Pulmonary effort is normal. No respiratory distress. Breath sounds: Normal breath sounds. No wheezing or rales. Chest: Chest wall: No tenderness. Abdominal: General: Abdomen is flat. Musculoskeletal: General: Normal range of motion. Cervical back: Normal range of motion and neck supple. Skin: General: Skin is warm and dry. Neurological: Mental Status: He is alert and oriented to person, place, and time. Psychiatric: Mood and Affect: Mood normal. Pertinent Labs: CBC: Hemoglobin (g/dL) Date Value 01/22/2025 12.8 07/14/2018 Test sent to [facility]. Hematocrit (%) Date Value 01/22/2025 37.7 07/14/2018 Test sent to [facility]. WBC (k/uL) Date Value 01/22/2025 5.09 07/14/2018 Test sent to [facility]. Platelet Count (k/uL) Date Value 01/22/2025 216 07/14/2018 Test sent to [facility]. BMP: Glucose (mg/dL) Date Value 01/22/2025 171 12/06/2018 128 Potassium (mmol/L) Date Value 01/22/2025 5.1 12/06/2018 4.3 Sodium (mmol/L) Date Value 01/22/2025 139 12/06/2018 138 Chloride (mmol/L) Date Value 01/22/2025 103 12/06/2018 102 CO2 (mmol/L) Date Value 01/22/2025 27 12/06/2018 27 Creatinine (mg/dL) Date Value 01/22/2025 1.32 12/06/2018 1.06 BUN (mg/dL) Date Value 01/22/2025 30 12/06/2018 27 Anion Gap (mmol/L) Date Value 01/22/2025 9 12/06/2018 9 Calcium (mg/dL) Date Value 12/06/2018 9.7 Calcium, Total (mg/dL) Date Value 01/22/2025 9.3 INR: Lipid Profile: Cholesterol, Total Date Value Ref Range Status 02/23/2018 Test sent to [facility]. <200 mg/dL Final Comment: Account Credited [facility]IDE HDL Cholesterol Date Value Ref Range Status 02/23/2018 Test sent to [facility]. >39 mg/dL Final Comment: Account Credited [facility] LDL Cholesterol Date Value Ref Range Status 02/23/2018 Test sent to [facility]. <100 mg/dL Final Comment: Account Credited [facility] Triglyceride Date Value Ref Range Status 02/23/2018 Test sent to [facility]. <150 mg/dL Final Comment: Account Credited [facility] Hemoglobin A1C: No results found for: HGBA1C TSH: No results found for: TSHREFL Prior Cardiac Testing none Assessment and Plan: 85 years old gentleman with a history of bypass surgery tensive heart disease ASSESSMENT/PLAN: 1. Primary hypertension - ICD9: 401.9, ICD10: I10 (primary diagnosis) - Controlled - Continue current medications - Recommend home blood pressure monitoring, to bring results to next visit - Encouraged sodium restriction, DASH or Mediterranean diet - Recommend regular aerobic exercise 2. Coronary artery disease involving [place] coronary artery of [place] heart without angina pectoris - ICD9: 414.01, ICD10: I25.10 Patient's chest pain is atypical and not consistent with angina Continue medical therapy Harjinder Jones MD Follow up plannin months Electronically signed by Harjinder Jones MD on 2025, 12:12 PM The above note was partially created using a dictation recognition software. A reasonable attempt has been made to correct any errors. documented in this encounter [facility] 03-02-2025 Instructions Kwan Estrella MD - 03/02/2025 11:17 AM EDT We discussed that medications to suppress these episodes are usually calcium channel blockers and beta-blockers. Due to history of intolerance of beta-blockers could not use it and again using medication such Cardizem can cause blood pressure to go lower and can cause recurrence of symptoms of dizziness in his case especially if Parkinson is also affecting the autonomic nervous system and leading to drops in blood pressure with changes in posture such as getting up and standing. We also discussed that medications such as Cardizem can further slow the electrical activation between the upper and lower chamber of the heart and his electrical activation within the upper and lower chamber is slower to begin with and therefore that can pose an additional risk. Given that the risks are more than the benefits of treating these at this time no active EP intervention is needed. 1 option is if symptoms of lightheaded and dizziness occur repeating a monitor and if it shows any worsening of slow heart rate may need to consider pacemaker at that time. documented in this encounter [facility] 03-02-2025 History of Present illness Narrative Images from the original note were not included. [facility] [place] [facility] SECTION OF CARDIAC PACING and ELECTROPHYSIOLOGY OUTPATIENT VISIT DATE March 02, 2025 OUTPATIENT VISIT TYPE NEW PRIMARY CARE PHYSICIAN: Vincent Espinosa [address] [place] [address] REFERRING PHYSICIAN: Harjinder Jones [address], [address] [facility] [address] chief complaint on file. HISTORY OF PRESENT ILLNESS: Flex Kline is a 84 year old year old MALE and is referred for management of abnormal holter. He has a history of Htn, HLD DM2, Chronic inflam demyelinating polyneuropathy, Parkinson's disease, h.o shingles with residual pain and on Gabapentin now at a lower dose, hypertensive heart disease with severe 3V CAD s/p CABG n the past cardiac catheterization 2020 shows patent PEACE to the LAD with a patent vein graft to the circumflex, His vein graft to the right artery was completely occluded He is currently a resident at [facility]. Had a recent UTI in 10/2024, still on Farxiga (to avoid insulin), sent from hospital to rehab He is here with his and daughter. He says that he always had skipping beats no rapid palpitations He says that he has chest pressure many days, can last for hours, sometimes goes to left arm going on for few years He had an episode of low BP about a couple of months ago at the rehab facility and felt faint, His BP meds were adjusted. Able to walk with a walker slowly. Is mostly sedentary Father had atrial fibrillation ECG 11/29/23 - SR 77 bpm WA 210 QRS 102 QT/c 364 411 PVC inf axis LB (computer read PAC with aberrant conduction) 01/22/2025-02/05/2025 IRHYTHM FINDINGS: Patient had a min HR of 39 bpm, max HR of 203 bpm, and avg HR of 73 bpm. Predominant underlying rhythm was Sinus Rhythm. First Degree AV Block was present. Slight P wave morphology changes were noted. 21 NS VT, the run with the fastest interval lasting 10 beats with a max rate of 203 bpm (avg 133 bpm); the run with the fastest interval was also the longest. 593 SV, the run with the fastest interval lasting 8 mins 44 secs with a max rate of 135 bpm, the longest lasting 50 mins 39 secs with an avg rate of 115 bpm. Second Degree AV Block-Mobitz I (Wenckebach) was present. Supraventricular Tachycardia was detected within +/- 45 seconds of symptomatic patient event(s). Isolated SVEs were rare (<1.0%), SVE Couplets were rare (<1.0%), and SVE Triplets were rare (<1.0%). Isolated VEs were rare (<1.0%, [id number]), VE Couplets were rare (<1.0%, 63), and VE Triplets were rare (<1.0%, 19). Ventricular Bigeminy and Trigeminy were present. Difficulty discerning atrial activity making definitive diagnosis difficult to ascertain. NM SPECT 04/23/21- 1. SPECT Perfusion Study: Normal. 2. There is no scintigraphic evidence for inducible ischemia. 3. No evidence of scarred myocardium. 4. Left ventricle is normal in size. The left ventricle systolic function is normal. 5. Right ventricle is normal in size. The right ventricle systolic function is normal. 6. This is a low risk scan. 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) Coronary atherosclerosis Diabetes (HCC) Herpes zoster with other nervous system complications(053.19) Hyperlipidemia Hypertrophy of prostate without urinary obstruction and other lower urinary tract symptoms (LUTS) Hyposmolality and/or hyponatremia Intervertebral lumbar disc disorder with myelopathy, lumbar region Mononeuritis of unspecified site 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) Peripheral vascular disease, unspecified (HCC) Type II or unspecified type diabetes mellitus without mention of complication, uncontrolled Unspecified hereditary and idiopathic peripheral neuropathy PAST SURGICAL HISTORY Procedure Laterality Date COLONOSCOPY FLX DX W/COLLJ SPEC WHEN PFRMD 02/09/2013 Colonoscopy COLONOSCOPY FLX DX W/COLLJ SPEC WHEN PFRMD 02/24/16 Colonoscopy HEART SURGERY HX PAST SURGICAL HISTORY OF 2006 CABG Family History Problem Relation Age of Onset Ischemic Heart Disease Father Alzheimer's Disease Mother Ischemic Heart Disease Brother Hypertension No Family History Coronary Artery Disease No Family History Diabetes No Family History Thyroid No Family History Blood Disease No Family History Blood Clots No Family History Factor 5 Leiden No Family History Stroke No Family History Systemic Lupus Erythematosus No Family History DVT No Family History Multiple Sclerosis No Family History Bipolar disorder No Family History Schizophrenia No Family History Dementia No Family History Aneurysm No Family History COPD No Family History SOCIAL HISTORY No social history on file. MEDICATIONS: clopidogrel (PLAVIX) 75 mg tablet Take 75 mg by mouth once daily. isosorbide mononitrate ER (IMDUR) 30 mg 24 hr tablet Take 30 mg by mouth once daily. nitroglycerin sublingual (NITROSTAT) 0.4 mg SL tablet Dissolve 1 tablet under the tongue as needed. FOR CHEST PAIN. IF NO RELIEF CALL 911 atorvastatin (LIPITOR) 80 mg tablet Take 0.5 tablets by mouth once daily. FARXIGA 5 mg tablet Take 5 mg by mouth once daily. aspirin 325 mg tablet Take 325 mg by mouth once daily. cholecalciferol, vitamin D3, (VITAMIN D3 ORAL) Take by mouth. glimepiride (AMARYL) 4 mg tablet Take 4 mg by mouth twice daily with meals. tamsulosin ER (FLOMAX) 0.4 mg cap Take 1 capsule by mouth once daily. magnesium oxide (MAG-OX) 400 mg (241.3 mg magnesium) tablet Take 1 tablet by mouth once daily. levothyroxine (SYNTHROID) 50 mcg tablet Take 50 mcg by mouth once daily. metFORMIN 1,000 mg ORAL tablet Take 1,000 mg by mouth twice daily with meals. furosemide (LASIX) 20 mg tablet Take 1 tablet by mouth every 48 hours. lisinopril (ZESTRIL) 5 mg tablet Take 1 tablet by mouth once daily. WALKER ROLLATOR SEAT WITH 6 WHEELS - RED Use as directed. gabapentin (NEURONTIN) 800 mg tablet Take 1 tablet by mouth three times a day for 90 days. carbidopa (LODOSYN) 25 mg tab Take 1 tablet by mouth three times daily. With every Sinemet dose carbidopa-levodopa (SINEMET 25-100) 25-100 mg per tablet Take 2 tablets by mouth three times daily. B infantis/B ani/B tori/B bifid (PROBIOTIC 4X ORAL) Take by mouth. VIT B COMPLEX 100 COMBO NO.2 ORAL Take by mouth. PRN FOLIC ACID 800 MCG TAB Take one(1) tablet two(2) times daily. REVIEW OF SYSTEMS: General - Appetite is normal. No fever chills, Eating better at the facility Respiratory - No cough wheezing pleuritic pain GI - No vomiting diarrhea, has nausea now and then No burning micturition. Hematology - No external bleeding. No recent diagnosis of cancer Neurology - No falls, No new unilateral numbness tingling weakness Has parkinson's, legs are weaker PHYSICAL EXAMINATION: BP 113/63 (BP Site: Right Arm, BP Position: Sitting, BP Cuff Size: Regular Adult) Pulse 69 Wt 180 lb (81.6 kg) SpO2 99% BMI 26.20 kg/m Normal build. Adequately nourished, mild generalized muscle wasting Comfortable at rest. Neck supple. Carotid upstroke is normal Mean JVP difficult to assess Chest is symmetrical, Lungs Good bilateral air entry. Cardiac Rhythm is regular, nl S1S2 no audible murmur. Extremities - no edema Neurological - alert oriented x 3, has resting tremors of both hands EKG 03/02/25 .Sinus rhythm 68 bpm WA 264ms First degree AVB QRS 96ms QT/c 398/423ms nl Qrs morphology and early repol change in 2.3.aVF I have personally reviewed the Electrocardiogram PLAN AND RECOMMENDATIONS: CAD s/p CABG - Follows with Dr Jones, 2020 stress test nl Long standing atypical chest pain - Does not describe anginal type of pain. He and his are wondering if it is from muscles and will also fu with neurologist PAC and PVC and runs of SVT - I reviewed the tracings, Some of them show Sinus tachycardia. The episodes of SVT are not associated with any symptoms. We discussed that the tracings show some of these episodes are actually a normal pattern of electrical activity beating fast. The PACs and PVCs are low burden. We discussed that medications to suppress these episodes are usually calcium channel blockers and beta-blockers. Due to history of intolerance of beta-blockers could not use it and again using medication such Cardizem can cause blood pressure to go lower and can cause recurrence of symptoms of dizziness in his case especially if Parkinson is also affecting the autonomic nervous system and leading to drops in blood pressure with changes in posture such as getting up and standing. We also discussed that medications such as Cardizem can further slow the electrical activation between the upper and lower chamber of the heart and his electrical activation within the upper and lower chamber is slower to begin with and therefore that can pose an additional risk. Given that the risks are more than the benefits of treating these at this time no active EP intervention is needed. 1 option is if symptoms of lightheaded and dizziness occur repeating a monitor and if it shows any worsening of slow heart rate may need to consider pacemaker at that time. Kwan Estrella MD This note was partially generated using [employer] voice recognition system. documented in this encounter [facility] 03-02-2025 Note HNO ID: [id number] Author: KWAN ESTRELLA MD Service: ? Author Type: Physician Type: Progress Notes Filed: 03/02/2025 11:18 Note Text: [facility] [place] [facility] SECTION OF CARDIAC PACING and ELECTROPHYSIOLOGY OUTPATIENT VISIT DATE March 02, 2025 OUTPATIENT VISIT TYPE NEW PRIMARY CARE PHYSICIAN: Vincent Espinosa [address] [place] [address] REFERRING PHYSICIAN: Harjinder Jones [address] [place] [address], [address] [facility] [address] chief complaint on file. HISTORY OF PRESENT ILLNESS: Flex Kline is a 84 year old year old MALE and is referred for management of abnormal holter. He has a history of Htn, HLD DM2, Chronic inflam demyelinating polyneuropathy, Parkinson's disease, h.o shingles with residual pain and on Gabapentin now at a lower dose, hypertensive heart disease with severe 3V CAD s/p CABG n the past cardiac catheterization 2020 shows patent PEACE to the LAD with a patent vein graft to the circumflex, His vein graft to the right artery was completely occluded He is currently a resident at [facility]. Had a recent UTI in 10/2024, still on Farxiga (to avoid insulin), sent from hospital to rehab He is here with his and daughter. He says that he always had skipping beats no rapid palpitations He says that he has chest pressure many days, can last for hours, sometimes goes to left arm going on for few years He had an episode of low BP about a couple of months ago at the rehab facility and felt faint, His BP meds were adjusted. Able to walk with a walker slowly. Is mostly sedentary Father had atrial fibrillation ECG 11/29/23 - SR 77 bpm WA 210 QRS 102 QT/c 364 411 PVC inf axis LB (computer read PAC with aberrant conduction) 01/22/2025-02/05/2025 IRHYTHM FINDINGS: Patient had a min HR of 39 bpm, max HR of 203 bpm, and avg HR of 73 bpm. Predominant underlying rhythm was Sinus Rhythm. First Degree AV Block was present. Slight P wave morphology changes were noted. 21 NS VT, the run with the fastest interval lasting 10 beats with a max rate of 203 bpm (avg 133 bpm); the run with the fastest interval was also the longest. 593 SV, the run with the fastest interval lasting 8 mins 44 secs with a max rate of 135 bpm, the longest lasting 50 mins 39 secs with an avg rate of 115 bpm. Second Degree AV Block-Mobitz I (Wenckebach) was present. Supraventricular Tachycardia was detected within +/- 45 seconds of symptomatic patient event(s). Isolated SVEs were rare (<1.0%), SVE Couplets were rare (<1.0%), and SVE Triplets were rare (<1.0%). Isolated VEs were rare (<1.0%, [id number]), VE Couplets were rare (<1.0%, 63), and VE Triplets were rare (<1.0%, 19). Ventricular Bigeminy and Trigeminy were present. Difficulty discerning atrial activity making definitive diagnosis difficult to ascertain. NM SPECT 04/23/21- 1. SPECT Perfusion Study: Normal. 2. There is no scintigraphic evidence for inducible ischemia. 3. No evidence of scarred myocardium. 4. Left ventricle is normal in size. The left ventricle systolic function is normal. 5. Right ventricle is normal in size. The right ventricle systolic function is normal. 6. This is a low risk scan. 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) Coronary atherosclerosis Diabetes (HCC) Herpes zoster with other nervous system complications(053.19) Hyperlipidemia Hypertrophy of prostate without urinary obstruction and other lower urinary tract symptoms (LUTS) Hyposmolality and/or hyponatremia Intervertebral lumbar disc disorder with myelopathy, lumbar region Mononeuritis of unspecified site 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) Peripheral vascular disease, unspecified (HCC) Type II or unspecified type diabetes mellitus without mention of complication, uncontrolled Unspecified hereditary and idiopathic peripheral neuropathy PAST SURGICAL HISTORY Procedure Laterality Date COLONOSCOPY FLX DX W/COLLJ SPEC WHEN PFRMD 02/09/2013 Colonoscopy COLONOSCOPY FLX DX W/COLLJ SPEC WHEN PFRMD 02/24/16 Colonoscopy HEART SURGERY HX PAST SURGICAL HISTORY OF 2006 CABG Family History Problem Relation Age of Onset Ischemic Heart Disease Father Alzheimer's Disease Mother Ischemic Heart Disease Brother Hypertension No Family History Coronary Artery Disease No Family History Diabetes No Family History Thyroid No Family History Blood Disease No Family History Blood Clots No Family History Factor 5 Leiden No Family History Stroke No Family History Systemic Lupus Erythematosus No Family History DVT No Family History Multiple Sclerosis No Family History Bipolar disorder No Family History Schizophrenia No Family History Dementia No Family History Aneurysm No Family History COPD No Family History SOCIAL HISTORY No social hist (more content not included)... [facility] 02-27-2025 Evaluation note Diagnosis Onset Date Resolution Type 2 diabetes mellitus acute February 27, 2025 10:51am CAD (coronary artery disease) chronic February 27, 2025 10:51am CKD (chronic kidney disease) chronic February 27, 2025 10:51am [facility] [employer] [facility] Work Phone: [phone] 700-648103-03-2025 NoteHNO ID: [id number] Author: BLANCA MARCELINO LPN Service: ? Author Type: LICENSED NURSE Type: Progress Notes Filed: 01/22/2025 15:05 Note Text: EVENT MONITOR DISPOSABLE PATCH INSTRUCTIONS Patient Name: Flex Kline [facility] Number: [id number] Skin prepped and cleansed with alcohol Patch secured to prepped area Monitor Activated Serial #: [id number] Patient Instructed: Prescribed order timeframe Bathing guidelines Usage of event button and diary documentation Return of monitor at the end of prescribed order Call with problems [phone] or [phone] ext. [phone] Patient expresses a good understanding of instructions [facility] History of Present illness Narrative* Blanca Marcelino LPN - 01/22/2025 3:04 PM EST EVENT MONITOR DISPOSABLE PATCH INSTRUCTIONS Patient Name: Flex Kline Clinic Number: [id number] Skin prepped and cleansed with alcohol Patch secured to prepped area Monitor Activated Serial #: [id number] Patient Instructed: Prescribed order timeframe Bathing guidelines Usage of event button and diary documentation Return of monitor at the end of prescribed order Call with problems [phone] or [phone] ext. [phone] Patient expresses a good understanding of instructions Blanca Marcelino LPN * Harjinder Jones MD - 01/22/2025 2:34 PM EST Images from the original note were not included. Harjinder Jones MD Interventional Cardiology [address] [place] [address] [phone] Chief Complaint Patient presents with: Follow Up: 6 month follow up HISTORY OF PRESENT ILLNESS: Mr. 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 underwent bypass surgery in the past cardiac catheterization 2020 shows patent PEACE to the LAD with a patent vein graft to the circumflex His vein graft to the right artery was completely occluded He is doing very well clinically recently admitted to the hospital with urinary tract infection he complained of bilateral leg swelling shortness of breath and recurrent chest pain not exertional Medical examination likely he is in heart failure with gallop rhythms and bilateral mild swelling Cardiac Risk Factors age (male over 45, female over 55), hyperlipidemia, diabetes, hypertension, family history of CAD 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) Coronary atherosclerosis Diabetes (HCC) Herpes zoster with other nervous system complications(053.19) Hyperlipidemia Hypertrophy of prostate without urinary obstruction and other lower urinary tract symptoms (LUTS) Hyposmolality and/or hyponatremia Intervertebral lumbar disc disorder with myelopathy, lumbar region Mononeuritis of unspecified site 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) Peripheral vascular disease, unspecified (HCC) Type II or unspecified type diabetes mellitus without mention of complication, uncontrolled Unspecified hereditary and idiopathic peripheral neuropathy PAST SURGICAL HISTORY Procedure Laterality Date COLONOSCOPY FLX DX W/COLLJ SPEC WHEN PFRMD 02/09/2013 Colonoscopy COLONOSCOPY FLX DX W/COLLJ SPEC WHEN PFRMD 02/24/16 Colonoscopy HEART SURGERY HX PAST SURGICAL HISTORY OF 2006 CABG FAMILY HISTORY Problem Relation Age of Onset Ischemic Heart Disease Father Alzheimer's Disease Mother Ischemic Heart Disease Brother Hypertension No Family History Coronary Artery Disease No Family History Diabetes No Family History Thyroid No Family History Blood Disease No Family History Blood Clots No Family History Factor 5 Leiden No Family History Stroke No Family History Systemic Lupus Erythematosus No Family History DVT No Family History Multiple Sclerosis No Family History Bipolar disorder No Family History Schizophrenia No Family History Dementia No Family History Aneurysm No Family History COPD No Family History Social History Tobacco Use Smoking status: Never Smokeless tobacco: Never Substance Use Topics Alcohol use: Never Drug use: No ALLERGIES Allergen Reactions Beta Blockers [Beta* Shortness of Breath Tongue swelling Medications: Current Outpatient Medications Medication Sig Dispense Refill nitroglycerin sublingual (NITROSTAT) 0.4 mg SL tablet Dissolve 1 tablet under the tongue as needed.FOR CHEST PAIN. IF NO RELIEF CALL 911 30 tablet 3 WALKER ROLLATOR SEAT WITH 6 WHEELS - RED Use as directed. 1 Each 0 atorvastatin (LIPITOR) 80 mg tablet Take 0.5 tablets by mouth once daily. 90 tablet 3 aspirin 325 mg tablet Take 325 mg by mouth once daily. cholecalciferol, vitamin D3, (VITAMIN D3 ORAL) Take by mouth. VIT B COMPLEX 100 COMBO NO.2 ORAL Take by mouth. PRN glimepiride (AMARYL) 4 mg tablet Take 4 mg by mouth twice daily with meals. tamsulosin ER (FLOMAX) 0.4 mg cap Take 1 capsule by mouth once daily. 90 capsule 3 magnesium oxide (MAG-OX) 400 mg (241.3 mg magnesium) tablet Take 1 tablet by mouth once daily. levothyroxine (SYNTHROID) 50 mcg tablet Take 50 mcg by mouth once daily. metFORMIN 1,000 mg ORAL tablet Take 1,000 mg by mouth twice daily with meals. furosemide (LASIX) 20 mg tablet Take 1 tablet by mouth every 48 hours. 45 tablet 2 lisinopril (ZESTRIL) 5 mg tablet Take 1 tablet by mouth once daily. 30 tablet 3 gabapentin (NEURONTIN) 800 mg tablet Take 1 tablet by mouth three times a day for 90 days. 2 carbidopa (LODOSYN) 25 mg tab Take 1 tablet by mouth three times daily. With every Sinemet dose 90 tablet 11 carbidopa-levodopa (SINEMET 25-100) 25-100 mg per tablet Take 2 tablets by mouth three times daily.540 tablet 3 FARXIGA 5 mg tablet Take 5 mg by mouth once daily. B infantis/B ani/B tori/B bifid (PROBIOTIC 4X ORAL) Take by mouth. FOLIC ACID 800 MCG TAB Take one(1) tablet two(2) times daily. 0 No current facility-administered medications for this visit. Review of Systems Constitutional: Negative for chills, diaphoresis, fever, malaise/fatigue and weight loss. HENT: Negative for congestion, ear discharge, ear pain, hearing loss, nosebleeds, sinus pain, sore throat and tinnitus. Eyes: Negative for blurred vision, double vision, photophobia, pain, discharge and redness. Respiratory: Positive for shortness of breath. Negative for cough, hemoptysis, sputum production, wheezing and stridor. Cardiovascular: Positive for palpitations. Negative for chest pain, orthopnea, claudication, leg swelling and PND. Gastrointestinal: Negative for abdominal pain, blood in stool, constipation, diarrhea, heartburn, melena, nausea and vomiting. Genitourinary: Negative for dysuria, flank pain, frequency, hematuria and urgency. Musculoskeletal: Negative for back pain, falls, joint pain, myalgias and neck pain. Skin: Negative for itching and rash. Neurological: Negative for dizziness, tingling, tremors, sensory change, speech change, focal weakness, seizures, loss of consciousness, weakness and headaches. Endo/Heme/Allergies: Negative for environmental allergies and polydipsia. Does not bruise/bleed easily. Psychiatric/Behavioral: Negative for depression, hallucinations, memory loss, substance abuse and suicidal ideas. The patient is not nervous/anxious and does not have insomnia. Physical Examination: Vitals:BP 156/70 Pulse 91 Resp 14 Ht 5' 9.5 (1.77m) Wt 176 lb (79.8kg) SpO2 97% BMI 25.63 kg/(m^2). BP w/Orthostatic Vitals Date and Time Orthostatic BP Orthostatic Pulse BP Pulse BP Position BP Site BP Cuff Size 01/22/25 1341 -- -- 156/70 91 Sitting Left Arm Large Adult Peak Flow Date and Time PF Resp 01/22/25 1341 -- 14 Last 2 Encounter Wt Readings: Date: Wt: 01/22/2025 176 lb (79.8 kg) 01/04/2024 183 lb (83 kg) Physical Exam Constitutional: General: He is not in acute distress. Appearance: He is not diaphoretic. HENT: Head: Normocephalic and atraumatic. Right Ear: External ear normal. Left Ear: External ear normal. Nose: Nose normal. Mouth/Throat: Pharynx: Oropharynx is clear. Eyes: General: Right eye: No discharge. Left eye: No discharge. Conjunctiva/sclera: Conjunctivae normal. Pupils: Pupils are equal, round, and reactive to light. Cardiovascular: Rate and Rhythm: Normal rate and regular rhythm. Heart sounds: Normal heart sounds, S1 normal and S2 normal. No murmur heard. No friction rub. No gallop. No S3 or S4 sounds. Pulmonary: Effort: Pulmonary effort is normal. No respiratory distress. Breath sounds: Normal breath sounds. No wheezing or rales. Chest: Chest wall: No tenderness. Abdominal: General: Abdomen is flat. Musculoskeletal: General: Normal range of motion. Cervical back: Normal range of motion and neck supple. Skin: General: Skin is warm and dry. Neurological: Mental Status: He is alert and oriented to person, place, and time. Psychiatric: Mood and Affect: Mood normal. Pertinent Labs: CBC: Hemoglobin (g/dL) Date Value 04/22/2021 12.5 07/14/2018 Test sent to [facility]. Hematocrit (%) Date Value 04/22/2021 36.8 07/14/2018 Test sent to [facility]. WBC (k/uL) Date Value 04/22/2021 5.50 07/14/2018 Test sent to [facility]. Platelet Count (k/uL) Date Value 04/22/2021 197 07/14/2018 Test sent to [facility]. BMP: Glucose (mg/dL) Date Value 01/04/2024 130 12/06/2018 128 Potassium (mmol/L) Date Value 01/04/2024 5.0 12/06/2018 4.3 Sodium (mmol/L) Date Value 01/04/2024 139 12/06/2018 138 Chloride (mmol/L) Date Value 01/04/2024 101 12/06/2018 102 CO2 (mmol/L) Date Value 01/04/2024 27 12/06/2018 27 Creatinine (mg/dL) Date Value 01/04/2024 1.31 12/06/2018 1.06 BUN (mg/dL) Date Value 01/04/2024 30 12/06/2018 27 Anion Gap (mmol/L) Date Value 01/04/2024 11 12/06/2018 9 Calcium (mg/dL) Date Value 12/06/2018 9.7 Calcium, Total (mg/dL) Date Value 01/04/2024 9.9 INR: Lipid Profile: Cholesterol, Total Date Value Ref Range Status 02/23/2018 Test sent to [facility]. <200 mg/dL Final Comment: Account Credited HIDE HDL Cholesterol Date Value Ref Range Status 02/23/2018 Test sent to [facility]. >39 mg/dL Final Comment: Account Credited [facility]IDE LDL Cholesterol Date Value Ref Range Status 02/23/2018 Test sent to [facility]. <100 mg/dL Final Comment: Account Credited [facility]IDE Triglyceride Date Value Ref Range Status 02/23/2018 Test sent to [facility]. <150 mg/dL Final Comment: Account Credited [facility]IDE Hemoglobin A1C: No results found for: HGBA1C TSH: No results found for: TSHREFL Prior Cardiac Testing None Assessment and Plan: 85 years old gentleman prior history of coronary artery disease bypass surgery hypertensive heart disease and diastolic dysfunction ASSESSMENT/PLAN: 1. Palpitations - ICD9: 785.1, ICD10: R00.2 (primary diagnosis) Patient complained of recurrent episodes of palpitation possibly atrial fibrillation Scheduled for Holter monitor for 14 days - OUTSIDE VENDOR CARDIAC OUTPATIENT EXTENDED RHYTHM RECORDING (WITHOUT TELEMETRY) 2. Diastolic congestive heart failure, unspecified HF chronicity (HCC) - ICD9: 428.30, 428.0, ICD10: I50.30 - HFpEF 50+ - Continue current medications - COMPREHENSIVE METABOLIC PANEL - COMPLETE BLOOD COUNT - NT PRO BNP - THYROID STIMULATING HORMONE Initiate lisinopril 5 mg Lasix 20 mg every 48 hours consistently Blood work to check his BMP 3. Atherosclerosis of [place] coronary artery of [place] heart without angina pectoris - ICD9: 414.01, ICD10: I25.10 Stable status prior history of bypass surgery Harjinder Jones MD Follow up plannin weeks Electronically signed by Harjinder Jones MD on January 22, 2025, 2:34 PM The above note was partially created using a dictation recognition software. A reasonable attempt has been made to correct any errors. documented in this encounter[facility]25 NoteHNO ID: [id number] Author: HARJINDER JONES MD Service: ? Author Type: Physician Type: Progress Notes Filed: 01/22/2025 14:39 Note Text: Harjinder Jones MD Interventional Cardiology [address] [place] [address] [phone] Chief Complaint Patient presents with: Follow Up: 6 month follow up HISTORY OF PRESENT ILLNESS: Mr. Klien is a 84 year old male seen today for assessment and management prior history of hypertensive heart disease with severe three-vessel coronary artery disease underwent bypass surgery in the past cardiac catheterization 2020 shows patent PEACE to the LAD with a patent vein graft to the circumflex His vein graft to the right artery was completely occluded He is doing very well clinically recently admitted to the hospital with urinary tract infection he complained of bilateral leg swelling shortness of breath and recurrent chest pain not exertional Medical examination likely he is in heart failure with gallop rhythms and bilateral mild swelling Cardiac Risk Factors age (male over 45, female over 55), hyperlipidemia, diabetes, hypertension, family history of CAD 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) Coronary atherosclerosis Diabetes (HCC) Herpes zoster with other nervous system complications(053.19) Hyperlipidemia Hypertrophy of prostate without urinary obstruction and other lower urinary tract symptoms (LUTS) Hyposmolality and/or hyponatremia Intervertebral lumbar disc disorder with myelopathy, lumbar region Mononeuritis of unspecified site 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) Peripheral vascular disease, unspecified (HCC) Type II or unspecified type diabetes mellitus without mention of complication, uncontrolled Unspecified hereditary and idiopathic peripheral neuropathy PAST SURGICAL HISTORY Procedure Laterality Date COLONOSCOPY FLX DX W/COLLJ SPEC WHEN PFRMD 02/09/2013 Colonoscopy COLONOSCOPY FLX DX W/COLLJ SPEC WHEN PFRMD 02/24/16 Colonoscopy HEART SURGERY HX PAST SURGICAL HISTORY OF 2006 CABG FAMILY HISTORY Problem Relation Age of Onset Ischemic Heart Disease Father Alzheimer's Disease Mother Ischemic Heart Disease Brother Hypertension No Family History Coronary Artery Disease No Family History Diabetes No Family History Thyroid No Family History Blood Disease No Family History Blood Clots No Family History Factor 5 Leiden No Family History Stroke No Family History Systemic Lupus Erythematosus No Family History DVT No Family History Multiple Sclerosis No Family History Bipolar disorder No Family History Schizophrenia No Family History Dementia No Family History Aneurysm No Family History COPD No Family History Social History Tobacco Use Smoking status: Never Smokeless tobacco: Never Substance Use Topics Alcohol use: Never Drug use: No ALLERGIES Allergen Reactions Beta Blockers [Beta* Shortness of Breath Tongue swelling Medications: Current Outpatient Medications Medication Sig Dispense Refill nitroglycerin sublingual (NITROSTAT) 0.4 mg SL tablet Dissolve 1 tablet under the tongue as needed. FOR CHEST PAIN. IF NO RELIEF CALL 911 30 tablet 3 WALKER ROLLATOR SEAT WITH 6 WHEELS - RED Use as directed. 1 Each 0 atorvastatin (LIPITOR) 80 mg tablet Take 0.5 tablets by mouth once daily. 90 tablet 3 aspirin 325 mg tablet Take 325 mg by mouth once daily. cholecalciferol, vitamin D3, (VITAMIN D3 ORAL) Take by mouth. VIT B COMPLEX 100 COMBO NO.2 ORAL Take by mouth. PRN glimepiride (AMARYL) 4 mg tablet Take 4 mg by mouth twice daily with meals. tamsulosin ER (FLOMAX) 0.4 mg cap Take 1 capsule by mouth once daily. 90 capsule 3 magnesium oxide (MAG-OX) 400 mg (241.3 mg magnesium) tablet Take 1 tablet by mouth once daily. levothyroxine (SYNTHROID) 50 mcg tablet Take 50 mcg by mouth once daily. metFORMIN 1,000 mg ORAL tablet Take 1,000 mg by mouth twice daily with meals. furosemide (LASIX) 20 mg tablet Take 1 tablet by mouth every 48 hours. 45 tablet 2 lisinopril (ZESTRIL) 5 mg tablet Take 1 tablet by mouth once daily. 30 tablet 3 gabapentin (NEURONTIN) 800 mg tablet Take 1 tablet by mouth three times a day for 90 days. 2 carbidopa (LODOSYN) 25 mg tab Take 1 tablet by mouth three times daily. With every Sinemet dose 90 tablet 11 carbidopa-levodopa (SINEMET 25-100) 25-100 mg per tablet Take 2 tablets by mouth three times daily. 540 tablet 3 FARXIGA 5 mg tablet Take 5 mg by mouth once daily. B infantis/B ani/B tori/B bifid (PROBIOTIC 4X ORAL) Take by mouth. FOLIC ACID 800 MCG TAB Take one(1) tablet two(2) times daily. 0 No current facility-administered medications for this visit. Review of Systems Constitutional: Negative for chills, diaphoresis, fever, malaise/fatigue and weight loss. HENT: Negative for congestion, ear discharge, ear pain, hearing loss, nosebleeds, sinus concepcion (more content not included)...[facility] 01-22-2025 NoteHNO ID: [id number] Author: HARJINDER JONES MD Service: ? Author Type: Physician Type: Procedures Filed: 02/09/2025 17:23 Note Text: Patient Name: Flex Kline : 1940 Ordering Provider: Harjinder Jones Indication: R00.2 Palpitations Type of Monitor: Extended Monitoring-Zio Patch Enrollment Dates: 01/22/2025-02/05/2025 IRHYTHM FINDINGS: Patient had a min HR of 39 bpm, max HR of 203 bpm, and avg HR of 73 bpm. Predominant underlying rhythm was Sinus Rhythm. First Degree AV Block was present. Slight P wave morphology changes were noted. 21 Ventricular Tachycardia runs occurred, the run with the fastest interval lasting 10 beats with a max rate of 203 bpm (avg 133 bpm); the run with the fastest interval was also the longest. 593 Supraventricular Tachycardia runs occurred, the run with the fastest interval lasting 8 mins 44 secs with a max rate of 135 bpm, the longest lasting 50 mins 39 secs with an avg rate of 115 bpm. Second Degree AV Block-Mobitz I (Wenckebach) was present. Supraventricular Tachycardia was detected within +/- 45 seconds of symptomatic patient event(s). Isolated SVEs were rare (<1.0%), SVE Couplets were rare (<1.0%), and SVE Triplets were rare (<1.0%). Isolated VEs were rare (<1.0%, 89410), VE Couplets were rare (<1.0%, 63), and VE Triplets were rare (<1.0%, 19). Ventricular Bigeminy and Trigeminy were present. 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 Pt is currently in rehab facility and unable to come.Will call once he is out if needs to be seen sooner. Florence Reed MA [facility]12-20-[facility] Miscellaneous Notes* Telephone Encounter - Florence Reed MA - 11/10/2024 11:09 AM EST Called pt to offer appt on cancellation list. Pt is currently in rehab facility and unable to come.Will call once he is out if needs to be seen sooner. Florence Reed MA * Telephone Encounter - Ana Laura Rosario RN - 11/03/2024 9:09 AM EST Called and left VM asking the patient to call back to schedule and office visit. If patient calls back please offer 11/13/24 at 1:20pm or 11/27/24 at 1:20pm and ask for an update on the patient's symptoms. Ana Laura Rosario RN * Telephone Encounter - Ana Laura Rosario RN - 10/26/2024 3:12 PM EST Conversation Subject Last Message I m getting out of breath. I think my symptoms are more consistent with congestive heart failure than heartburn. The ranolazine is not working because I am out of breath. I am getting out of breath every couple of days. What should be done about it? Please Advise Ana Laura Rosario RN documented in this encounterGreen [facility]12-13-[facility]24 Telephone encounter Note * Telephone Encounter - Ana Laura Rosario RN - 11/03/2024 9:09 AM EST Called and left VM asking the patient to call back to schedule and office visit. If patient calls back please offer 11/13/24 at 1:20pm or 11/27/24 at 1:20pm and ask for an update on the patient's symptoms. Ana Laura Rosario RN [facility]12-11-2024 [facility] Medical Records Department [address] [place] [address] Discharge Summary 11/01/24 1501 MR#: [id number] Acct: [id number] Name: FLEX KLINE Rep #: [id number] : 1940 84 From: Sung Rhodes DO PCP: Dr. Felix Montelongo MD Status:ADM IN Location: [place] [address] Providers Date of Admission: 10/27/24 Primary Care Physician: Dr. Felix Montelongo MD Reason For Visit: WEAKNESS AND UTI Diagnosis Discharge Diagnosis (1) Acute UTI: Status: Acute Code(s): N39.0 - Urinary tract infection, site not specified Plan Acute cystitis- * patient will be changed from IV Rocephin to p.o. cephalexin for acute cystitis. UCx grew out mixed organisms. acute on chronic debility * patient will be seen by PT and OT, patient's family would like the patient to go to an extended care facility for short-term rehab services. Chronic conditions: * coronary artery disease-patient appears stable at this time, patient does have intermittent chest pain, according to the catheter report dated 07/29/2018 patient has severe mid RCA calcification making a PCI high risk-it was noted the patient may always have some degree of chest pain given his microvessel and noncorrectable CAD. 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 on SSI. resume farxiga, glimeperide and metformin. * hypothyroidism-patient is on Synthroid VTE prophylaxis: LMWH Disposition: to [facility] pending insurance authorization. 10/31: Talked about aggressiveness of care and recommended the following: No CPR no intubation (with the exception of temporary intubation for procedures and surgeries (as well as no feeding tubes. I explained to him that I did not recommend these procedures as is a chance for seeing at recovery would be severely compromised given his Parkinson's. He continue to state that he has a strong heart. I told him that this is not a matter of him having a strong heart but with him being at risk for pneumonia and so forth he could be at risk for arrhythmias that could be lead to such events. He was not willing to change his CODE STATUS at this time but I encouraged him to talk with his family about changing so he will remain full code at this time. 11/01: asked if he had any additional thoughts or questions about code status. He said he did not. Medications at Discharge Home Medications lisinopril 10 mg tablet 10 mg PO DAILY blood pressure 11/15/15 metformin 1,000 mg tablet 1,000 mg PO BIDCM blood sugar 11/15/15 tamsulosin 0.4 mg capsule 0.4 mg PO DAILY prostate 02/28/16 cholecalciferol (vitamin D3) 125 mcg (5,000 unit) capsule 5,000 unit PO MOWEFR supplement 06/15/18 clopidogrel 75 mg tablet 75 mg PO DAILY Heart 07/20/18 aspirin 81 mg tablet,delayed release 81 mg PO DAILY@0800 HEART HEALTH 07/28/18 nitroglycerin 0.4 mg sublingual tablet 0.4 mg PO PRN PRN CHEST PAIN 07/28/18 folic acid 800 mcg tablet 0.8 mg PO BID SUPPLMENT 06/17/19 gabapentin 800 mg tablet 800 mg PO TID NERVE 06/17/19 atorvastatin 80 mg tablet 80 mg PO QHS CHOLESTEROL 06/20/19 magnesium oxide 400 mg (241.3 mg magnesium) tablet 800 mg PO DAILY SUPPLEMENT 01/21/21 ranolazine 500 mg tablet,extended release,12 hr 500 mg PO BID . 04/21/21 carbidopa 25 mg-levodopa 100 mg disintegrating tablet 1 tab translingual TID PARKINSONS 06/13/21 levothyroxine 50 mcg tablet 50 mcg PO DAILY THYROID 06/13/21 glimepiride 2 mg tablet 4 mg (2 x 2 mg) PO DAILY blood sugar #90 tabs 05/07/23 Farxiga 5 mg tablet (dapagliflozin propanediol) 5 mg PO DAILY DM #90 tabs 09/29/24 acetaminophen 325 mg tablet 650 mg (2 x 325 mg) PO Q6H PRN PRN Pain 1-10 Or Fever >100.7 #0 tabs 11/01/24 cephalexin 500 mg capsule 500 mg PO Q12 #0 caps 11/01/24 Hospital Course Operations None Procedures None Weight / BMI Weight Weight: 79 kg Body Mass Index (BMI) 24.3 ABG / Lab / Microbiology Data 10/29/24 08:52 10/29/24 08:52 Laboratory: Laboratory Results - last 24 hr 10/31/24 17:09: POC Glucose 136 H 10/31/24 21:13: POC Glucose 125 H 11/01/24 06:03: POC Glucose 125 H 11/01/24 11:19: POC Glucose 212 H Microbiology: Microbiology 10/27/24 12:40 Urine, Clean Catch Urine Culture - Final Mixed Gram Pos Gram Neg Org 10/27/24 11:25 Mucosa - Nose SARS-CoV-2, Influenza RSV (PCR) - Final D/C Instructions DC O2, CPAP, BIPAP Needs Additional Home O2 Discharge instructions: No DC home with Oxygen: No Meaningful Use Info Meaningful Use Meaningful Use Diagnoses (Choose all that apply): None applicable Ischemic Stroke Statin Dosing Therapy Reference: STATIN DOSE THERAPY REFERENCE: * Patients > 75 years receive moderate or high dose statin therapy. * Patients 75 years or YOUNGER s (more content not included)...[facility]12-06-2024 Evaluation note* Diagnosis Onset Date Resolution Status Admit Date Acute UTI resolved October 27, 2024 4:33pm Chest pain resolved October 27, 2024 4:33pm CAD (coronary artery disease) chronic November 30 9:59am Chest pain chronic November 30, 025 9:59am Diabetes chronic November 30 9:59am Diastolic dysfunction chronic Rico uary 2024 9:59am Dyslipidemia chronic November 30, 2024 9:59am Essential hypertension chronic Ja nuary 2024 9:59am Parkinson's disease chronic Janua ry 2024 9:59am 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 I think my symptoms are more consistent with congestive heart failure than heartburn. The ranolazine is not working because I am out of breath. I am getting out of breath every couple of days. What should be done about it? Please Advise Ana Laura Rosario RN [facility]10-[facility]-2024 Telephone encounter Note* Telephone Encounter - Ruth Ann Hernandez - 09/11/2024 8:46 AM EDT Prescription Refill Information The patient has been identified by name and date of : Yes Caregiver verified no other encounters exist for this prescription request: Yes Caregiver confirmed with patient/requestor that no other refills are due, in the near future, with this provider at this time: Yes The last office visit in the department: 11/29/2023 Does the patient have a future office visit with this provider/department: Yes Requested Prescriptions Pending Prescriptions Disp Refills nitroglycerin sublingual (NITROSTAT) 0.4 mg SL tablet 30 tablet 3 Sig: Dissolve 1 tablet under the tongue as needed. FOR CHEST PAIN. IF NO RELIEF CALL Ruth Ann September 11, 2024 8:46 AM [facility]10-21-2024 Miscellaneous Notes* Telephone Encounter - Ruth Ann Hernandez - 09/11/2024 8:46 AM EDT Prescription Refill Information The patient has been identified by name and date of : Yes Caregiver verified no other encounters exist for this prescription request: Yes Caregiver confirmed with patient/requestor that no other refills are due, in the near future, with this provider at this time: Yes The last office visit in the department: 11/29/2023 Does the patient have a future office visit with this provider/department: Yes Requested Prescriptions Pending Prescriptions Disp Refills nitroglycerin sublingual (NITROSTAT) 0.4 mg SL tablet 30 tablet 3 Sig: Dissolve 1 tablet under the tongue as needed. FOR CHEST PAIN. IF NO RELIEF CALL Ruth Ann September 11, 2024 8:46 AM documented in this encounter[facility]03-12-[facility]24 History of Present illness Narrative* Rocío Wagner PA-C - 02/01/2024 3:01 PM EDT This Team Access Model visit is a phone encounter. It required patient-provider interaction for themedical decision making as documented below. Patient agrees to the visit: Yes Patient Location: [place] I have communicated my name and active licensure. The patient's identity and physical location wereverified at the time of this visit. Either the patient or their legal food service sales representatives has been informed of the risks and benefits of -- and alternatives to -- treatment through a remote evaluation andconsents to proceed with the evaluation remotely. CC: Patient presents with: f/u Labs HPI Flex Kline is a 83 year old male who is contacted today for a phone visit to discuss labs. This is an established patient of Dr. Rocío Wagner PA-C. Hypothyroidism: Pt reports that he was taking one tab of levothyroxine and realized the label says he needs to be taking 1.5 tablets, so he has switched to doing that the last 3 days. Has issues checking his blood sugars at home d/t Parkinson's and associated tremors. Last A1c at [facility] was in 07/14 was 6.9. 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) Coronary atherosclerosis Diabetes (HCC) Herpes zoster with other nervous system complications(053.19) Hyperlipidemia Hypertrophy of prostate without urinary obstruction and other lower urinary tract symptoms (LUTS) Hyposmolality and/or hyponatremia Intervertebral lumbar disc disorder with myelopathy, lumbar region Mononeuritis of unspecified site 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) Peripheral vascular disease, unspecified (HCC) Type II or unspecified type diabetes mellitus without mention of complication, uncontrolled Unspecified hereditary and idiopathic peripheral neuropathy PAST SURGICAL HISTORY Procedure Laterality Date COLONOSCOPY FLX DX W/COLLJ SPEC WHEN PFRMD 02/09/2013 Colonoscopy COLONOSCOPY FLX DX W/COLLJ SPEC WHEN PFRMD 02/24/16 Colonoscopy HEART SURGERY HX PAST SURGICAL HISTORY OF 2006 CABG ALLERGIES Beta Blockers [Beta-Blockers (Beta-Adrenergic Blocking Agts)] MEDICATIONS WALKER ROLLATOR SEAT WITH 6 WHEELS - RED Use as directed. gabapentin (NEURONTIN) 800 mg tablet Take 1 tablet by mouth three times a day for 90 days. furosemide (LASIX) 20 mg tablet Take 20 mg by mouth once daily. taking PRN ranolazine SR (RANEXA) 1,000 mg tab ER 12 hr Take 1 tablet by mouth two times a day. nitroglycerin sublingual (NITROSTAT) 0.4 mg SL tablet Dissolve 1 tablet under the tongue as needed.FOR CHEST PAIN. IF NO RELIEF CALL 911 lisinopril (PRINIVIL) 10 mg tablet Take 1 tablet by mouth once daily. atorvastatin (LIPITOR) 80 mg tablet Take 0.5 tablets by mouth once daily. carbidopa (LODOSYN) 25 mg tab Take 1 tablet by mouth three times daily. With every Sinemet dose carbidopa-levodopa (SINEMET 25-100) 25-100 mg per tablet Take 2 tablets by mouth three times daily. FARXIGA 5 mg tablet Take 5 mg by mouth once daily. aspirin 325 mg tablet Take 325 mg by mouth once daily. cholecalciferol, vitamin D3, (VITAMIN D3 ORAL) Take by mouth. B infantis/B ani/B tori/B bifid (PROBIOTIC 4X ORAL) Take by mouth. Magnesium Oxide 500 mg tab Take 250 mg by mouth twice daily. VIT B COMPLEX 100 COMBO NO.2 ORAL Take by mouth. PRN glimepiride (AMARYL) 4 mg tablet Take 4 mg by mouth twice daily with meals. tamsulosin ER (FLOMAX) 0.4 mg cap Take 1 capsule by mouth once daily. magnesium oxide (MAG-OX) 400 mg (241.3 mg magnesium) tablet Take 1 tablet by mouth once daily. (Patient not taking: Reported on 02/18/2023) levothyroxine (SYNTHROID) 50 mcg tablet Take 50 mcg by mouth once daily. metFORMIN 1,000 mg ORAL tablet Take 1,000 mg by mouth twice daily with meals. FOLIC ACID 800 MCG TAB Take one(1) tablet two(2) times daily. FAMILY HISTORY Problem Relation Age of Onset Ischemic Heart Disease Father Alzheimer's Disease Mother Ischemic Heart Disease Brother Hypertension No Family History Coronary Artery Disease No Family History Diabetes No Family History Thyroid No Family History Blood Disease No Family History Blood Clots No Family History Factor 5 Leiden No Family History Stroke No Family History Systemic Lupus Erythematosus No Family History DVT No Family History Multiple Sclerosis No Family History Bipolar disorder No Family History Schizophrenia No Family History Dementia No Family History Aneurysm No Family History COPD No Family History Social History Tobacco Use Smoking status: Never Smokeless tobacco: Never Substance Use Topics Alcohol use: Never Drug use: No EXAM: Deferred physical exam as visit was completed over the phone Patient is speaking in complete sentences without obvious respiratory distress or audible wheezing. Virtual visit completed using video, limited exam completed. No exam performed DATA REVIEWED: Most recent labs HbA1C Never done Urine Albumin:Creatinine Ratio Never done Dilated Retinal Exam Never done Diabetic Foot Exam Never done Shingrix Vaccine(1 of 2) Never done DTaP,Tdap,Td Vaccine(1 - Tdap) due on 09/13/2012 Pneumococcal Vaccine: 65+(2 of 2 - PPSV23 or PCV20) due on 10/28/2016 LDL Cholesterol due on 02/23/2019 Advance Directive Discussion Never done Depression Assessment Never done Influenza Vaccine Completed RSV Vaccine Completed Covid-19 Vaccine Completed Colorectal Cancer Screening Discontinued ASSESSMENT/PLAN: 1. Controlled type 2 diabetes mellitus without complication, without long-term current use of insulin (HCC) - ICD9: 250.00, ICD10: E11.9 (primary diagnosis) - Control undetermined, due for labs Last A1c 6.9 in 07/14 - Continue current medications-will adjust as necessary pending results - HGB A1C - CBC + DIFF 2. Acquired hypothyroidism - ICD9: 244.9, ICD10: E03.9 -Patient realize he had been taking 1 tablet once daily, instead of the 1-1/2 tablets prescribed. Has since increased to 1.5 tablets daily, and will have TSH rechecked in 6 weeks. Lab future ordered - TSH BLD 3. Stage 3a chronic kidney disease (HCC) - ICD9: 585.3, ICD10: N18.31 - eGFR: 55 Stable - Albuminuria: due for urine ACR - Counseled on avoiding NSAIDs, adequate hydration - Counseled on low sodium diet - CBC + DIFF 4. Parkinson's disease, unspecified whether dyskinesia present, unspecified whether manifestations fluctuate (HCC) - ICD9: 332.0, ICD10: G20.A1 CCM per Dr. Hudson - CBC + DIFF Follow-up 3 to 4 months routine issues Prescription instructions reviewed with patient as applicable. Potential red flag symptoms discussed with the patient. Reviewed appropriate action plan to take if red flag symptoms occur. Patient agreeable to treatment plan. During this patient visit I have spent approximately 15 minutes in counseling regarding test results and coordinating care. Rocío Wagner PA-C documented in this encounterCleveland [id number] Miscellaneous Notes* Telephone Encounter - Juliana Choi LPN - 01/18/2024 1:13 PM EST Patient returned call and went over notes, he said this was from weeks ago, no need for it now. * Telephone Encounter - Trish Benton LPN - 01/18/2024 11:11 AM EST Left message to call & speak to nurse. Trish Benton LPN * Telephone Encounter - Florence Santos LPN - 01/12/2024 11:54 AM EST Left a message for pt to call the office and ask to speak to a nurse. Florence Santos LPN * Telephone Encounter - Rocío Wagner PA-C - 01/07/2024 2:42 PM EST Does he want a follow up scheduled for this fall? Rocío Wagner PA-C * Telephone Encounter - Florence Santos LPN - 01/07/2024 12:36 PM EST Pt called back returning Rocío's call. Pt had a fall. but did not hit head. Pt having rib pain. Ptreports breathing okay except when he takes a deep breath or is walking around it hurts. Standing and sitting hurts also hurts. Feels pain coming from rib area and side. Please advise pt. Florence Santos LPN documented in this encounterGreen [facility]02-14-[facility]24 Miscellaneous Notes* Telephone Encounter - Rocío Wagner PA-C - 01/05/2024 3:39 PM EST Rx printed and signed, place on your desk kim. Rocío Wagner PA-C * Telephone Encounter - Blanca Perera LPN - 01/05/2024 3:15 PM EST Left message for patient to call office back to speak with triage nurse. Blanca Perera LPN * Telephone Encounter - Rocío Wagner PA-C - 01/05/2024 3:00 PM EST Can you call patient and see if he's okay? Did he hit his head? Has he gone to the ER? & Where would he like us to send the prescription? Rocío Wagner PA-C documented in this encounterGreen Cross Hospital02-13-[facility]24 History of Present illness Narrative* Rocío Wagner PA-C - 01/04/2024 3:13 PM EST CC: Patient presents with: New Patient HPI Flex Kline is a 83 year old male who presents today to establish care. Had comprehensive blood panel done about 1 month ago through previous primary, Dr. Montelongo. Parkinsons/CIDP (Chronic inflammatory demyelinating polyneuropathy)/essential tremor: CIDP dx ~2013, Parkinson's dx in 2016 (per neuro note). Per pt, was only diagnosed 1.5-2 years ago. Stable on sinemet. Sees Dr. Hudson. 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 On Gabapentin, which seems to help the neuralgia. Hypothyroidism. He is doing well on his current dose of Synthroid (50 mcg). Denies fatigue, cold intolerance, constipation, swelling in feet, weight gain, hair loss, and dry skin. With complaint of cold intolerance and heat intolerance. Diabetes: Flex Kline denies excessive thirst or increased frequency of urination, chest pain or dyspnea , numbness, tingling or pain in extremities, new or unusual visual symptoms, low sugar/hypoglycemic reactions, weight loss/gain, lightheadedness/dizziness, and bowel changes/loose stools. He is compliant with medication(s) and is tolerating med(s) without any side effects. Home blood sugar readings: checks every now and then. Usually ~100-110 fasting Hypoglycemia: Symptomatic when sugars are >100 but it hasn't happened arnold long time. Diabetic diet: Yes, eats plenty of fruits and vegetables Patient's last HgA1C was 6.7-6.8 on most recent check about a month ago CAD/HLD, status post 5 vessel bypass ~15 years ago: Sees Dr. Jones. Several stents placed~2016. Last heart cath in 2020, no intervention indicated at that time. CKD: Cr 1.55 GFR 46 from most recent labs through [facility] in 07/14. Does not see a live in housekeeper. REVIEW OF SYSTEMS See HPI All other systems negative. 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 taking PRN ranolazine SR (RANEXA) 1,000 mg tab ER 12 hr Take 1 tablet by mouth two times a day. nitroglycerin sublingual (NITROSTAT) 0.4 mg SL tablet Dissolve 1 tablet under the tongue as needed.FOR CHEST PAIN. IF NO RELIEF CALL 911 lisinopril (PRINIVIL) 10 mg tablet Take 1 tablet by mouth once daily. atorvastatin (LIPITOR) 80 mg tablet Take 0.5 tablets by mouth once daily. carbidopa (LODOSYN) 25 mg tab Take 1 tablet by mouth three times daily. With every Sinemet dose carbidopa-levodopa (SINEMET 25-100) 25-100 mg per tablet Take 2 tablets by mouth three times daily. FARXIGA 5 mg tablet Take 5 mg by mouth once daily. gabapentin (NEURONTIN) 600 mg tablet Take 1 tablet by mouth three times daily for 90 days. (Patienttaking differently: Take 800 mg by mouth three times a day. 1/2 - 1 tab 6 times daily) aspirin 325 mg tablet Take 325 mg by mouth once daily. cholecalciferol, vitamin D3, (VITAMIN D3 ORAL) Take by mouth. B infantis/B ani/B tori/B bifid (PROBIOTIC 4X ORAL) Take by mouth. Magnesium Oxide 500 mg tab Take 250 mg by mouth twice daily. VIT B COMPLEX 100 COMBO NO.2 ORAL Take by mouth. PRN glimepiride (AMARYL) 4 mg tablet Take 4 mg by mouth twice daily with meals. tamsulosin ER (FLOMAX) 0.4 mg cap Take 1 capsule by mouth once daily. levothyroxine (SYNTHROID) 50 mcg tablet Take 50 mcg by mouth once daily. metFORMIN 1,000 mg ORAL tablet Take 1,000 mg by mouth twice daily with meals. FOLIC ACID 800 MCG TAB Take one(1) tablet two(2) times daily. magnesium oxide (MAG-OX) 400 mg (241.3 mg magnesium) tablet Take 1 tablet by mouth once daily. (Patient not taking: Reported on 02/18/2023) FAMILY HISTORY Problem Relation Age of Onset Ischemic Heart Disease Father Alzheimer's Disease Mother Ischemic Heart Disease Brother Hypertension No Family History Coronary Artery Disease No Family History Diabetes No Family History Thyroid No Family History Blood Disease No Family History Blood Clots No Family History Factor 5 Leiden No Family History Stroke No Family History Systemic Lupus Erythematosus No Family History DVT No Family History Multiple Sclerosis No Family History Bipolar disorder No Family History Schizophrenia No Family History Dementia No Family History Aneurysm No Family History COPD No Family History Social History Tobacco Use Smoking status: Never Smokeless tobacco: Never Substance Use Topics Alcohol use: Never Drug use: No PHYSICAL EXAM BP 122/66 (BP Site: Left Arm, BP Position: Sitting, BP Cuff Size: Large Adult) Pulse 73 Resp 14 Ht 176.5 cm (5' 9.5) Wt 83 kg (183 lb) SpO2 97% BMI 26.64 kg/m General Appearance: well appearing, in no acute distress, alert Pysch: mood and affect broad and appropriate Skin: Skin color, texture, turgor normal for age; Head: normocephalic, atraumatic Lymph nodes: No cervical lymphadenopathy Lungs: Lungs clear to auscultation. No wheezing, rhonchi, rales. Heart: RRR without murmur, gallop, or rubs. No ectopy Abdomen: Normal abdominal exam Extremities: No gross deformities, significant edema, skin discoloration, clubbing or cyanosis. Neurological: Slow, shuffling gait. Tremor at rest RUE. Sensation grossly intact. ASSESSMENT/PLAN: 1. Controlled type 2 diabetes mellitus without complication, without long-term current use of insulin ([facility]) - ICD9: 250.00, ICD10: E11.9 (primary diagnosis) - Controlled, recent finger stick at prior PCP ~6.7 - Continue current medications - BASIC METABOLIC PNL 2. Acquired hypothyroidism - ICD9: 244.9, ICD10: E03.9 - Instructed patient on importance of taking on an empty stomach either first thing in the morning or at bedtime. Last TSH is ordered 07/14 borderline (in the 4s) - check TSH today - continue current dose of Synthroid for the time being; will adjust treatment as necessary pendingresults- TSH BLD 3. Parkinson's disease, unspecified whether dyskinesia present, unspecified whether manifestations fluctuate - ICD9: 332.0, ICD10: G20.A1 Continue current management per Dr. Hudson - BASIC METABOLIC PNL 4. CIDP (chronic inflammatory demyelinating polyneuropathy) ([facility]) - ICD9: 357.81, ICD10: G61.81 See above - BASIC METABOLIC PNL 5. Essential tremor - ICD9: 333.1, ICD10: G25.0 See above - BASIC METABOLIC PNL 6. Post herpetic neuralgia - ICD9: 053.19, ICD10: B02.29 Managed well with gabapentin 800 mg 3 times daily. Continue current management. - GABAPENTIN 800 MG TABLET - BASIC METABOLIC PNL 7. Stage 3a chronic kidney disease (HCC) - ICD9: 585.3, ICD10: N18.31 - eGFR: Unclear as we do not know his baseline. Will continue to monitor over time. - Albuminuria: due for urine ACR - BASIC METABOLIC PNL f/u 4 weeks labs, discuss order for rollator Prescription instructions reviewed with patient as applicable. Potential red flag symptoms discussed with the patient. Reviewed appropriate action plan to take if red flag symptoms occur. Patient agreeable to treatment plan. Rocío Wagner PA-C documented in this encounterGreen Cross [facility]08-16-2023 Instructions* Patient Instructions* Marni Hudson MD - 07/07/2023 7:24 AM EDT Images from the original note were not included. It was a pleasure to see you today. We addressed the following diagnoses: Parkinson disease (hcc) (primary encounter diagnosis) Slow transit constipation My recommendations are as follows: Add carbidopa to every Sinemet dose to help with the nausea. If nausea is feeling better with the carbidopa try increasing Sinemet to 1.5 tabs 3 times a day for 2 weeks and then can try increasing again to 2 tabs 3 times a day. This may not help the tremors but could help you move better. - Physical therapy at [facility]. Massage therapy. - Constipation handout below. Can try Miralax which is available over the counter - Movement Disorders Medication Schedule: Medications 8 4 MN Sinemet 25/100 1 1 1 carbidopa 25 mg 1 1 1 gabapentin 600 mg 1 1 1 If there are any concerns before your next visit, please call or you can send a message through [facility] too. You can also now schedule and select appointments through [facility] too. Marni Hudson MD Constipation and Other Gastrointestinal Problems in Parkinson's Disease As you know, Parkinson s disease (PD) affects many body systems, not just movement. This includes the autonomic nervous system -- that is, the part of the nervous system that controls automatic bodily functions such as heart rate, blood pressure, sweating, sexual function and both gastrointestinal and urinary function. These can be among the most serious and complex issues faced by people with PD. Constipation, cramping and bloating are all common among people with Parkinson s. These issues can be caused both by the disease itself and by the medications used to treat it. The good news is that there are steps that you can take to lessen its impact on your life. Stomach Problems Impaired ability to empty the contents of the stomach, called gastroparesis, is a potential complication of PD. This may produce a bloated sensation and cause you to feel full even if you have eaten very little. Sometimes nausea may develop. Failure of the stomach to empty in a timely fashion may also impair or delay the effectiveness of PD medications, especially levodopa. Levodopa is absorbed from the small intestine and cannot get to its destination if it is trapped in the stomach. Unfortunately, treatment of gastroparesis in PD has not been extensively studied, and there are not many treatment options. Domperidone is an effective medication, but it is not available in the [place]. FDA approved Duopa , a form of levodopa designed to be delivered directly into the small intestine, may be helpful for some people experiencing gastroparesis. New levodopa delivery methods that bypass the stomach might help in thefuture, such as a skin patch, supplemental treatment with DBS, sublingual, or subcutaneous agonists. Constipation Constipation means difficulty passing stools (bowel movement, feces), a decrease in the number of stools, or both. It is often accompanied by one or more of the following symptoms: No stool (bowel movement) for days Distention (bloating) of abdomen, cramping, a feeling of pressure in the lower abdomen Straining to eliminate Incomplete evacuation of stool Hard, pellet stools Constipation can be acute (sudden onset of short duration) or chronic (persisting for several weeksor longer). In PD, constipation is likely to be chronic. When constipation is severe, the stool stays in the colon and backs up , causing a condition called impaction. Most healthcare providers describe constipation as having less than three bowel movements a week and recommend treatment after three days without a bowel movement, but everyone is slightly different. The frequency of bowel movementsdepends on what you have been eating and drinking, and the unique functioning of your own body. If you are experiencing fewer than three bowel movements in a week or have any of the symptoms listed, talk to your healthcare provider. Why Do I Get Constipated? We are still learning about constipation in PD and why it happens. Here is what we know: Parkinson s Disease The same changes that occur in brain cells in Parkinson s disease may also occur in nerve cells in the spinal cord and the intestinal wall. These changes may slow down the muscles that push food through the intestines. Medications Medications used to treat PD -- in particular, the class called anticholinergics and the medication amantadine, used to treat dyskinesia -- are known for causing constipation. If you are on these medications, your healthcare provider may be able to reduce your dose or switch you to a different one.But for some people, the benefits of the medication outweigh the possibility of constipation. Decrease in Physical Activity Because people with Parkinson s disease experience difficulty with their movement, they often become less active. People with PD who increase their movement experience better overall functioning, which includes their digestive system. Decreased Water Intake Many people with Parkinson s disease limit their fluids to avoid making frequent trips to the bathroom. When a person drinks less liquid, the gut may not have the lubrication it needs to have a bowelmovement, which contributes to constipation. Genetic Predisposition It is possible to have a family predisposition to constipation. Ask family members what solutions work for them. Your body may respond to the same strategies. Individual Body Chemistry Genetics aside, you are unique. Pay attention to your body and what is normal for you. Preventing Constipation Will your constipation get better? It is possible, but it depends in part on your own efforts. Of course, your healthcare provider and the medications he or she recommends play an important role. Still, constipation may persist despite your doctor s recommendations. That s where you come in. It is critical to put a daily plan in place -- one that can even prevent constipation before it begins. This is called creating a bowel program - Here are some strategies: Drink a lot of fluid (i.e., at least eight 8-oz glasses, excluding caffeine and alcohol, which act as diuretics and can aggravate constipation). It can be especially helpful to drink warm liquids, such as flavored sparkling gutierres or lemonade, on rising and with breakfast, as warm liquid and food start bowel activity. Eat meals at the same times each day. Increase your fiber (e.g., cooked dried beans or fruits and vegetables with edible skins). Eat more foods that create bulk (e.g., whole grains and vegetables). Minimize your intake of low fiber starchy foods (e.g., breads, cookies, cake) or avoid them completely. Starchy foods do a great job at plugging up the digestive system! Try to establish a relaxed, regular time of the day for bowel movements. (About 1/2 hour after a meal is best as there is normally greater bowel activity at this time.) However, it also will help to train yourself to honor the urge to have a bowel movement. It may not always occur first thing in the morning or only at home! Be aware that the natural position for evacuating the bowel is squatting. Raised toilet seat devices may aid mobility but are not ideal for bowel function. Try hiking your feet up on a small bench while sitting on the toilet. Exercise more. Walk, dance, ride bikes or swim. Living with PD Constipation and Other Gastrointestinal Problems in PD Keep in mind that what works for one person may not work for another. You are unique. Pay attentionto your body s individual habits and needs. The best way to do this is to keep an activity log or diary, like the Constipation Tracker on Page 8, where you can keep track of when you experience constipation. Record what else happened that day -- what you ate, if you exercised, when you took medications -- and look for patterns. This will help you figure out what triggers your constipation, how long it lasts, and what it responds to under varying circumstances. Then take steps to help prevent the constipation. It may take trial and error, but with time (can take weeks to months) and effort, you can begin to understand what works for you. Managing Constipation If you have tried the tips above but they did not work, what should you do next? The primary goals will be to manage your symptoms, avoid complications (such as impaction, hemorrhoids and a dependence on laxatives), and prevent future constipation. Treatments fall into two categories: pcag-vpc-cgxgzpa and prescription therapies. Remember: consult with your healthcare provider before deciding on how to treat your constipation. The best treatment for constipation will vary from person to person, taking into account a variety of factors, including: other medical condition(s), medications or allergies that impact your treatment, the cost of treatment, the type of treatment used, how often the tr eatment must be taken/done in a day and your own convenience and preference. Fzqk-idu-Axnfjkj Products Jcee-ccb-dqwzgcb treatments for constipation can be purchased at your local pharmacy. There are several categories listed on the following pages, all of which work in different ways. They are offeredin a variety of forms including capsule, powder, granule, syrup, gum, tablet, liquid and wafer. The best choice for you will depend on personal preferences and how your body responds. Preferred products are those that mimic the way the body works normally, i.e., by increasing bulk, fluids or lubricants in the intestines. It is important to note that stimulating laxatives, enemas, suppositories and combination products create dependence and are considered a last option, and should be used only when all others have been exhausted. Here are some things to keep in mind before selecting any products to address your constipation Relatively mild laxatives may be used while establishing a bowel program, but they are NOT a replacement for diet and bulk formers. Use them sparingly while you continue with your program. All laxatives should be used with caution. They activate the bowel by chemical irritation. Long-term use may actually harm the bowel. The bowel can easily become dependent on enemas. We recommend that you use enemas only when nothingelse works. You may need to use suppositories while establishing a bowel program. If needed, use Glycerin dailyor every other day. DO NOT use Dulcolax , as it is habit- forming and irritates the bowel. The following are listed in order of ease of consumption, cost, volume of therapeutic dose, taste. See list of common side effects. Senna Teas (caffeine free) These teas are herbal products whose use dates back to physicians in the ninth century! Drink a cup with dinner or in the evening and you should experience gentle, overnight relief from constipation in PD. Use senna teas with caution if you have a heart condition and are using Lanoxin (digoxin) or a diuretic. It also comes as a capsule (Senna [place] Smooth Move ). ving with PD Constipation and Other Gastrointestinal Problems in PD Emollients (stool softeners) These work by allowing more fluid into the fecal material. They contain wetting agents that improvethe ability of water to mix with stool, which softens the stool. They do not stimulate bowel movements or increase bowel movement frequency. They make the stool softer and easier to pass. These can be used superintendent [employer] but should not be used in combination with products containing mineral oil. Some people with PD find the stool is soft, but difficult to pass as the muscles in the lower abdomen may not be strong enough or the momentum is slowed due to the disease. Examples include docusate (Colace and Surfak ). Bulk Formers These work by creating bulk in the intestinal tract.Many types of fiber products bind with water inthe intestine, keeping the water in the intestine to soften the stool, while adding bulk/volume to it. They must be taken with at least eight ounces of water. Bulk formers produce results in 12 to 72hours and are safe for long-term use. Examples include guar gum (Benefiber ); inulin (FiberSure ); methylcellulose (Citrucel ); malt soup extract (Maltsupex ); polycarbophil (Fibercon ); psyllium (Konsyl ). Lubricants These work by lubricating the intestinal tract. They contain mineral oil, which coats the particlesof stool, making it softer. Mineral oil does not stimulate a bowel movement or increase bowel movement frequency. Like emollients, it makes the stool easier to pass. They should only be used for short periods of time or periodically, as the oil can absorb some vitamins. They should not be used when taking warfarin (Coumadin ). An example is mineral oil (Fleet ). When purchasing, be sure to purchase just mineral oil, without any additives. Os motic Laxatives These work by drawing fluids into the intestinal tract. They are indigestible, nonabsorbable compounds that assist in retaining water in the colon, thereby softening the stool. Osmotic laxatives produce a bowel movement within one to three days. They may cause gas initially, but this usually resolves. Osmotic laxatives are safe for long-term use. Diabetics need to be especially careful in their choice of an osmotic laxative as large sugar molecules (e.g. sorbitol) are sometimes used. Examples include lactulose (Kristalose ); polyethylene glycol 3350 (MiraLax ); polyethylene glycol (GlycoLax ); sorbitol. Saline Laxatives These contain magnesium, sulfate, phosphate or citrate. They cause a softening of the stool by retaining water in the colon. They generally work within several hours. In general, they should not be used on a regular basis as they can cause dehydration and electrolyte problems. People with kidney disease, congestive heart failure, or those who are advised by their healthcare provider to control salt and water intake should not take saline laxatives. For mild results, examples include magnesium hydroxide (Milk of Magnesia ), sodium biphosphate and sodium phosphate (Fleet , Phospho-Soda , Visicol ). For strong results, examples include magnesium sulfate (Epsom salt). Stimulant Laxatives (Not for long-term use) These should be used sparingly with PD and only after other remedies have failed. Among the yakq-jjb-jkpiiyz laxatives, they are most likely to cause diarrhea and cramping. Chronic use can lead to colon damage. They work by causing the muscles of the small intestine and colon to propel their contents more rapidly. Some stimulant laxatives increase the absorption of water in the small intestine. Examples include bisacodyl (Dulcolax , Correctol ); castor oil; casanthranol; cascara (Nature s Remedy ) senna. Enemas Enemas stimulate the colon to contract and eliminate stool. They are useful in PD when there is impaction. In most cases, routine use should be avoided as they affect the fluid and electrolyte balance in the body. Soap suds enemas, commonly used in the past, should not be used as they can damage the rectum. Examples of common enema preparations include docusate sodium (Colace ), saline enema, micr oenema, tap water enema, mineral oil enemas. Suppositories A suppository is a wax-like form which is lubricated and inserted directly into the rectum as high as the finger can put it. Suppositories provide rectal stimulation to empty the bowel. Stool must bepresent in the rectum for suppositories to be effective. Suppositories must make contact with the inside wall of the rectum to work. They should be refrigerated until used or they can melt. Glycerin suppositories provide lubrication, while bisacodyl suppositories contain the stimulant laxative bisacodyl. Examples include bisacodyl (Dulcolax ) and glycerin. Combination Products These products combine two or three of thepreviously mentioned ingredients and stimulate bodily andintestinal functions. They can be convenient and effective. Those containing artificial stimulants should not be used in most long-term situations. Examples includecasanthranol (Sof-Lax Overnight ); docusate (Ana- Colace , Senokot ); glycerin; senna; senna and glycerin (Flannery s Laxative ); and senna and psyllium (Perdiem ). Common Side Effects of Wudi-pal-Vhfzuri Products for Constipation Emollient (Stool Softeners) Skin rash Stomach and/or intestinal cramping Bulk Forming Skin rash or itching Difficulty swallowing Intestinal blockage Difficulty breathing Lubricant Skin irritation surrounding rectal area Aspiration (medication sucked into lungs) Os motic Bloating Cramping Gas Increased thirst Nausea Saline Confusion Dizziness or lightheadedness Irregular heartbeat Muscle cramps Unusual tiredness or weakness Stimulants Belching Cramping Diarrhea Nausea Confusion Irregular heartbeat Muscle cramps Discoloration of urine (for cascara and/or senna only), e.g. pink to red, red to kavon, red to brownish color Skin rash Unusual tiredness or weakness Note: side effects very from person to person. Please consult your healthcare provider if you have concerns about any side effects listed. Prescription Products When cunr-fpb-crwllwi remedies fail, your healthcare provider may recommend prescription products to treat constipation. Right now, there are two remedies approved by the U.S. Food and Drug Administration (FDA). They areoften available by generic name or trade name (the trade name product is generally more expensive). Lubiprostone (Amitiza): works by increasing stool water content. Side effects include headache, nausea, diarrhea, abdominal pain and vomiting. Linaclotide (Linzess): increases bowel movement frequency. Its most common side effect is diarrhea. Living with PD Constipation and Other Gastrointestinal Problems in PD What s Right for Me? Your objective is to be as comfortable as possible. Know What to Avoid Impaction (i.e., solid bulk of stool in the rectum that must be manually removed). Hemorrhoids (distention of veins in area of anus). Chronic dependence on laxatives. Complications from other diseases you have that can be worsened by treatments for constipation. Know Your Normal Habits Assess your normal by logging your elimination habits versus your dietary intake, the fluids you consume and exercise for one normal week. Note any changes in your bowel movements early, so you can intervene sooner rather than later (consult your healthcare provider as appropriate). Select the Right Management Plan Consult your healthcare provider. Discuss a trial and error process that considers your medical condition(s), all the drugs you take, and your preferences (form in which taken, frequency/time of administration, taste, effectiveness, etc.). List of Oral Laxatives This list is incomplete, but will help to familiarize you with some products on the market. The list is in alphabetical order with no preference to one brand over another. Brand Name Category Non-Stimulation Stimulating A-3 Revised Combination X Alocass Stimulant X Bisacodyl (Dulcolax ) Stimulant X Brandywine Oil Stimulant X Cellulose (Unifiber ) Bulk X Dehydrocholic Acid (Cholan-HMB ) Stimulant X Docusate Sodium (Colace ) Emollient X Docusate and Senna (Doc-Q-Lax ) Stimulant X Docusate (Docucal ) Emollient X Docusate (Surfak ) Emollient X Fleet Mineral Oil Lubricant X Guar Gum (Benefiber ) Bulk X Lactulose (Kristalose ) Osmotic X Magnesium Citrate (Citrate Of Magnesia) Saline X Magnesium Hydroxide (Benito Milk of Magnesia) Saline X Magnesium Supplement (Mag-Gel 600 ) Stimulant X Methylcellulose (Citrucel ) Bulk X Phospho-Soda (Fleet Phospho-Soda) Saline X Polyethylene Glycol (GaviLAX ) Osmotic X Polyethylene Glycol (GaviLyte-N with Flavor Pack) Osmotic X Polyethylene Glycol (GlycoLax ) Osmotic X Polycarbophil (Fibercon ) Bulk X Polyethylene Glycol (NuLYTELY ) Combination X Psyllium (Metamucil ) Bulk X [employer] Senna Stimulant X Senna (Black-Draught ) Stimulant X Senna and Docusate (Senna-S) Stimulant X Senna and Docusate (Senokot ) Stimulant X Adapted from: [facility] Website, accessed March 17, 2016, www.hiyalife/health/druginformation/ [id number] Special Precautions For your safety, consult your healthcare provider before taking any products. Of particular concernshould be any of the following: Over-using laxatives could create dependence. Watch for: Signs and symptoms of appendicitis, which could include fever, abdominal pain, loss of appetite. Rectal bleeding from unknown cause. Intestinal blockage. Be careful if you have any of these conditions: Colostomy: potential for diarrhea when bag fills quickly. Ileostomy: potential for diarrhea when bag fills quickly. Type 2 diabetes: some laxatives are high in sugar. Heart disease: straining to eliminate stool can strain the heart, and it may not be able to compensate. High blood pressure: some laxatives are high in sodium. Kidney disease: some laxatives have magnesium and potassium in them. Swallowing difficulty: of concern would be aspiration of the laxative into the lungs causing pneumonia or blockage of the esophagus. Living with PD can be challenging. Motor and non-motor symptoms impact daily life, but there are many things a patient can do to lessen this impact. Daily attention to bowel function is important to feeling one s best and to avoid serious complications such as impaction. If you need further guidance, please contact your health care provider. Contributing authors: Candido Guzman, Ph.D., R.N., and Noah Welch, M.S.N., C.R.N.P. Constipation Tracker Day/Date Time Food(s) Eaten Activities Emotional Status Stool Description Feel free to photocopy this page and use it throughout the year to track your symptoms and share with your doctor. This is a patient education material provided by the Parkinson s [employer]. For more information and resources see https://www.parkinson.org/. [facility] is a Center of Excellence for the [facility]. documented in this encounterGreen [facility] Hospital08-[facility]23 History of Present illness Narrative* Marni Hudson MD - 07/07/2023 7:02 AM EDT [facility] - FOLLOW UP EVALUATION - VIRTUAL VISIT Felix Montelongo MD [address] [facility] [id number] Dear Felix Montelongo MD: I had the pleasure of seeing Mr. Kline for follow-up today. As you know he is a 83 year old right-handed male with a history of ET/PD since 2015(?) . Also with CIDP diagnosed 2012. Off treatment since 2017. He is seen alone. We had a visit using: [employer] I have communicated my name and active licensure. The patient's identity and physical location wereverified at the time of this visit. Either the patient or their legal food service sales representatives has been informed of the risks and benefits of -- and alternatives to -- treatment through a remote evaluation andconsents to proceed with the evaluation remotely. Subjective During his previous visit the following plan was made: Previous plan-02/19/2023 Visit: Restart Sinemet Massage therapy Interval History Taking Sinemet 1 tab per dose, 3 times a day. Trying some old Parcopa. Nausea, head throbs. Starts 45 minutes after doses and lasts an hour or more. Taking with food which helps a lot. Movement and tremor are worse. Medication may help some. Taking berries. Takes doses at same time as gabapentin. Didn't have PT or massage therapy. Called to schedule and only given options of [place] or [place]. Open to [facility]. Constipation. Prunes used to work but not the past couple of weeks. Good about fiber intake. Movement Disorders Medications Schedule - as of the start of the visit: Medications 8 4 MN Bed Sinemet 25/100 1 1 1 gabapentin 600 mg 1 1 1 Parkinson's Motor Complications Wearing off: no Prior Anti-Parkinson Therapies Carbidopa/Levodopa Entacapone Other Movement Disorder Prior Therapies Primidone ALLERGIES Allergen Reactions Beta Blockers [Beta* Shortness of Breath Tongue swelling Current Outpatient Medications Medication Sig carbidopa (LODOSYN) 25 mg tab Take 1 tablet by mouth three times daily. With every Sinemet dose carbidopa-levodopa (SINEMET 25-100) 25-100 mg per tablet Take 2 tablets by mouth three times daily. FARXIGA 5 mg tablet Take 5 mg by mouth once daily. ranolazine SR (RANEXA) 1,000 mg tab ER 12 hr Take 1 tablet by mouth twice daily. (Patient taking differently: Take 1,000 mg by mouth twice daily. PRN) gabapentin (NEURONTIN) 600 mg tablet Take 1 tablet by mouth three times daily for 90 days. (Patienttaking differently: Take 800 mg by mouth three times daily. 1/2 - 1 tab 6 times daily) clopidogrel (PLAVIX) 75 mg tablet Take 1 tablet by mouth once daily. (Patient taking differently: Take 75 mg by mouth once daily. Takes 4 times weekly) aspirin 325 mg tablet Take 325 mg by mouth once daily. cholecalciferol, vitamin D3, (VITAMIN D3 ORAL) Take by mouth. B infantis/B ani/B tori/B bifid (PROBIOTIC 4X ORAL) Take by mouth. Magnesium Oxide 500 mg tab Take 250 mg by mouth twice daily. VIT B COMPLEX 100 COMBO NO.2 ORAL Take by mouth. PRN glimepiride (AMARYL) 4 mg tablet Take 4 mg by mouth twice daily with meals. tamsulosin ER (FLOMAX) 0.4 mg cap Take 1 capsule by mouth once daily. lisinopril (PRINIVIL) 10 mg tablet Take 1 tablet by mouth once daily. atorvastatin (LIPITOR) 80 mg tablet Take 0.5 tablets by mouth once daily. magnesium oxide (MAG-OX) 400 mg (241.3 mg magnesium) tablet Take 1 tablet by mouth once daily. (Patient not taking: Reported on 02/18/2023) nitroglycerin sublingual (NITROSTAT) 0.4 mg SL tablet Dissolve 1 tablet under the tongue as needed.FOR CHEST PAIN. IF NO RELIEF CALL 911 levothyroxine (SYNTHROID) 50 mcg tablet Take 50 mcg by mouth once daily. metFORMIN 1,000 mg ORAL tablet Take 1,000 mg by mouth twice daily with meals. FOLIC ACID 800 MCG TAB Take one(1) tablet two(2) times daily. No current facility-administered medications for this visit. Questionnaires: In addition, the following areas that may be affected by abnormal involuntary movements were evaluated: Daily activities Difficulties with eating: Yes (mild) Difficulties in dressing: Yes (mild) Difficulties with hygiene activities: Yes (slight) Difficulties with handwriting: Yes (severe) Difficulties with doing hobbies and other activities: Yes (mild) Difficulties turning in bed: Yes (mild) Difficulties getting out of bed, car or chair: Yes (moderate) Tremors/Gait/Balance Shaking or tremors: Yes (severe) Walking and balance problems: Yes (moderate) Number of falls in the Last Month: 0 Gait freezing: Yes (slight) Autonomic/Pain Lightheadeness on standing: Yes (slight) Urinary problems: Yes (slight) Constipation problems: Yes (mild) Pain and other sensations: Yes (moderate) Speech/Swallowing Speech problems: Yes (moderate) Drooling: Yes (mild) Chewing and swallowing problems: Yes (slight) Sleep/Fatigue Sleep problems: Yes (mild) Daytime sleepiness: Yes (moderate) Fatigue: Yes (mild) Mood/Behavior Depression: PHQ-9 Score: 8 usually representing mild (5-9) depression. Anxiety: IOANA-7 Total Score: 4 usually representing no significant (0-4) anxiety. Finally, the following table shows the patient's overall global physical and mental health using the PROMIS scale: PROMIS-10 Flowsheet Row [facility] from 07/07/2023 in Neurology [facility] from 12/18/2022 in Neurology Global Physical Health T Score 32.4 37.4 Global Mental Health T Score 38.8 41.1 0-10 Standard Pain Scale 3 3 *PROMIS-10 scoring scale: mean = 50, over 50 is above average, under 50 is below average Objective General Exam Neurological Exam Assessment and Plan: Assessment Mr. Kline is a right-handed 83 year old male with ET/PD. Main complaint is tremor which seems more consistent with ET than PD. If this is a parkinsonian tremor then is medication-refractory. He tried primidone in the past but unclear result in terms of both benefit and side effects. Worse since stopping Sinemet but unclear if clear time correlation. Since last visit he restarted Sinemet and perhaps some benefit but experiences side effects. Limited clinical picture by virtual evaluation. He was unable to get PT scheduled last visit so will try again.Add Lodosyn for the Sinemet side effects and perhaps dose can be increased. Discussed measures to address constipation. The following are the current problems noted and addressed during this visit: Parkinson disease (hcc) (primary encounter diagnosis) Slow transit constipation Plan 07/07/2023 Visit: Add carbidopa to every Sinemet dose to help with the nausea. If nausea is feeling better with the carbidopa try increasing Sinemet to 1.5 tabs 3 times a day for 2 weeks and then can try increasing again to 2 tabs 3 times a day. This may not help the tremors but could help you move better. - Physical therapy at [facility]. Massage therapy. - Constipation handout below. Can try Miralax which is available over the counter - Interested in clinical research? Not currently Updated Movement Disorder Medication Schedule: Medications 8 4 MN Sinemet 25/100 1 1 1 carbidopa 25 mg 1 1 1 gabapentin 600 mg 1 1 1 Level of service : 85327 (40-54 min). Time spent 41 min on the day of service, which included preparing to see the patient, ceoq-xb-msda patient care, completing clinical documentation, and counseling and educating the patient/family/caregiver. Thank you for allowing me to be part of the clinical care of this patient! I look forward to continued participation in the patient s care with you. Please do not hesitate to call with any questions. Sincerely, Marni Hudson MD documented in this encounterGreen [facility] Hospital03-31-2023 Miscellaneous Notes* Telephone Encounter - Caitlin Peacock MA - 02/19/2023 7:56 AM EDT Message therapy order mailed to patient home per Dr. Hudson request documented in this encounterGreen Cross Hospital03-31-2023 Instructions* Patient Instructions* Marni Hudson MD - 02/19/2023 7:21 AM EDT It was a pleasure to see you today. We addressed the following diagnoses: Parkinson disease (hcc) (primary encounter diagnosis) Muscle stiffness Muscle pain My recommendations are as follows: Restart Sinemet: Sinemet (carbidopa/levodopa) 25/100 Week 1: 1 tab 3 times a day Week 2 and on: 2 tabs 3 times a day Movement Disorders Medication Schedule: Medications 8 2 8 Bed Sinemet 25/100 2 2 2 gabapentin 600 mg 1 1 1 No follow-ups on file. If there are any concerns before your next visit, please call or you can send a message through [facility] too. You can also now schedule and select appointments through [facility] too. Marni Hudson MD documented in this encounterGreen Cross Hospital03-31-2023 History of Present illness Narrative* Marni Hudson MD - 02/19/2023 7:02 AM EDT [facility] - FOLLOW UP EVALUATION - VIRTUAL VISIT Felix Montelongo MD, MD [address] [facility] [id number] Dear Felix Montelongo MD, : I had the pleasure of seeing Mr. Kline for follow-up today. As you know he is a 82 year old right-handed male with a history of ET/PD since 2015(?) . 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 We had a visit using: [employer] I have communicated my name and active licensure. The patient's identity and physical location wereverified at the time of this visit. Either the patient or their legal food service sales representatives has been informed of the risks and benefits of -- and alternatives to -- treatment through a remote evaluation andconsents to proceed with the evaluation remotely. Subjective During his previous visit the following plan was made: Previous plan-12/18/2022 Visit: taper off Sinemet: reduce to 1.5 tabs 3 times a day for 1 week. Then reduce again to 1 tabs 3 timesa day for 1 week. Then reduce again to 1/2 tab 3 times a day for 1 week, then you can stop taking it. If you feel worse then you can restart it. in the future we can think about trying primidone again. Interval History More tremor in hands. Right hand noticed most with action, some at rest. Left hand also with action. Both hands shaking when trying to use cell phone. More stiffness in his legs, more on right. Painful. Also restless legs but seems this is stable. Taking gabapentin for this pain. Taking 3 per day but often 1/2 tab 6 times per day. The 1/2 tab seemsto work just as well as 1 tab. Off Sinemet still progressing symptoms. Tapered very slowly and off it fully 1 week or so. Not surethere was abrupt change after stopping it. Eating different types of berries. Wine isn't helping the tremor. Not a whole glass. Would like order for massage therapy. Insurance would cover. Hoping for help with muscle stiffness. Movement Disorders Medications Schedule - as of the start of the visit: Medications 6 12 6 Bed gabapentin 600 mg 1 1 1 Parkinson's Motor Complications Wearing off: no Prior Anti-Parkinson Therapies Carbidopa/Levodopa Entacapone Other Movement Disorder Prior Therapies Primidone ALLERGIES Allergen Reactions Beta Blockers [Beta* Shortness of Breath Tongue swelling Current Outpatient Medications Medication Sig FARXIGA 5 mg tablet Take 5 mg by mouth once daily. ranolazine SR (RANEXA) 1,000 mg tab ER 12 hr Take 1 tablet by mouth twice daily. (Patient taking differently: Take 1,000 mg by mouth twice daily. PRN) gabapentin (NEURONTIN) 600 mg tablet Take 1 tablet by mouth three times daily for 90 days. (Patienttaking differently: Take 800 mg by mouth three times daily. 1/2 - 1 tab 6 times daily) clopidogrel (PLAVIX) 75 mg tablet Take 1 tablet by mouth once daily. (Patient taking differently: Take 75 mg by mouth once daily. Takes 4 times weekly) aspirin 325 mg tablet Take 325 mg by mouth once daily. cholecalciferol, vitamin D3, (VITAMIN D3 ORAL) Take by mouth. B infantis/B ani/B tori/B bifid (PROBIOTIC 4X ORAL) Take by mouth. Magnesium Oxide 500 mg tab Take 250 mg by mouth twice daily. VIT B COMPLEX 100 COMBO NO.2 ORAL Take by mouth. PRN glimepiride (AMARYL) 4 mg tablet Take 4 mg by mouth twice daily with meals. tamsulosin ER (FLOMAX) 0.4 mg cap Take 1 capsule by mouth once daily. lisinopril (PRINIVIL) 10 mg tablet Take 1 tablet by mouth once daily. atorvastatin (LIPITOR) 80 mg tablet Take 0.5 tablets by mouth once daily. nitroglycerin sublingual (NITROSTAT) 0.4 mg SL tablet Dissolve 1 tablet under the tongue as needed.FOR CHEST PAIN. IF NO RELIEF CALL 911 levothyroxine (SYNTHROID) 50 mcg tablet Take 50 mcg by mouth once daily. metFORMIN 1,000 mg ORAL tablet Take 1,000 mg by mouth twice daily with meals. FOLIC ACID 800 MCG TAB Take one(1) tablet two(2) times daily. carbidopa-levodopa (SINEMET 25-100) 25-100 mg per tablet Take 2 tablets by mouth three times daily. magnesium oxide (MAG-OX) 400 mg (241.3 mg magnesium) tablet Take 1 tablet by mouth once daily. (Patient not taking: Reported on 02/18/2023) No current facility-administered medications for this visit. Questionnaires: In addition, the following areas that may be affected by abnormal involuntary movements were evaluated: Daily activities Difficulties with eating: Yes (mild) Difficulties in dressing: Yes (mild) slower Difficulties with hygiene activities: Difficulties with handwriting: Yes (severe) Difficulties with doing hobbies and other activities: Yes (mild) Difficulties turning in bed: Yes (slight) Difficulties getting out of bed, car or chair: Yes (moderate) Tremors/Gait/Balance Shaking or tremors: Yes (severe) Walking and balance problems: Yes (moderate) about the same. limited by right leg stiffness. using cane sometimes. no falls yet Number of falls in the Last Month: 0 Gait freezing: Yes (slight) Autonomic/Pain Lightheadeness on standing: Yes (mild) Urinary problems: Yes (slight) Constipation problems: Yes (slight) Pain and other sensations: Yes (moderate) Speech/Swallowing Speech problems: Yes (mild) Drooling: Yes (slight) Chewing and swallowing problems: Yes (mild) Sleep/Fatigue Sleep problems: Yes (mild) Daytime sleepiness: Yes (mild) Fatigue: Yes (mild) Mood/Behavior Depression: PHQ-9 Score: 5 usually representing mild (5-9) depression. Anxiety: IOANA-7 Total Score: 4 usually representing no significant (0-4) anxiety. Finally, the following table shows the patient's overall global physical and mental health using the PROMIS scale: PROMIS-10 Flowsheet Row Distance Health from 12/18/2022 in Neurology Office Visit from 06/29/2022 in Neurology Global Physical Health T Score 37.4 32.4 Global Mental Health T Score 41.1 41.1 0-10 Standard Pain Scale 3 3 *PROMIS-10 scoring scale: mean = 50, over 50 is above average, under 50 is below average Objective General: Awake, alert, interactive, no acute distress, good nutritional status, normal development,well-kept Neurological Exam Mental Status Awake and alert. Language is fluent with no aphasia. Assessment and Plan: Assessment Mr. Kline is a right-handed 82 year old male with ET/PD. Main complaint is tremor which seems more consistent with ET than PD. If this is a parkinsonian tremor then is medication-refractory. He tried primidone in the past but unclear result in terms of both benefit and side effects. Worse since stopping Sinemet but unclear if clear time correlation. Willrestart and see if he improves. Noting more stiffness so suspect due to lack of Sinemet. Still considering primidone, Topamax. The following are the current problems noted and addressed during this visit: Parkinson disease (hcc) (primary encounter diagnosis) Muscle stiffness Muscle pain Plan 02/19/2023 Visit: Restart Sinemet Massage therapy Updated Movement Disorder Medication Schedule: Medications 8 2 8 Bed Sinemet 25/100 2 2 2 gabapentin 600 mg 1 1 1 Level of service : 50514 ( 30-39 min). Time spent 30 min on the day of service, which included preparing to see the patient, [id number] patient care, completing clinical documentation, counseling and educating the patient/family/caregiver, and ordering medications, tests, or procedures. Thank you for allowing me to be part of the clinical care of this patient! I look forward to continued participation in the patient s care with you. Please do not hesitate to call with any questions. Sincerely, Marni Hudson MD documented [facility] Instructions* Patient Instructions* Marni Hudson MD - 12/18/2022 7:35 AM EST It was a pleasure to see you today. We addressed the following diagnoses: Parkinson disease (hcc) (primary encounter diagnosis) Essential tremor My recommendations are as follows: - taper off Sinemet: reduce to 1.5 tabs 3 times a day for 1 week. Then reduce again to 1 tabs 3 times a day for 1 week. Then reduce again to 1/2 tab 3 times a day for 1 week, then you can stop takingit. If you feel worse then you can restart it. - in the future we can think about trying primidone again. If there are any concerns before your next visit, please call or you can send a message through [facility] too. You can also now schedule and select appointments through [facility] too. Marni Hudson MD documented in this encounterGreen [facility]01-27-[facility] History of Present illness Narrative* Marni Hudson MD - 12/18/2022 6:56 AM EST [facility] - FOLLOW UP EVALUATION - VIRTUAL VISIT Felix Montelongo MD, [address] [facility] [id number] Dear Felix Montelongo MD, : I had the pleasure of seeing Mr. Kline for follow-up today. As you know he is a 82 year old right-handed male with a history of ET/PD since 2016(?) . Also with CIDP diagnosed 2012. Off treatment since 2017. He is seen with a daughter. We had a visit using: Vostu I received consent from the patient to perform the visit using this platform. Subjective During his previous visit the following plan was made: Previous plan-06/29/2022 Visit: Continue current regimen of Sinemet and gabapentin 3 times a day. Try changing times to 6a, noon, 6P - PT - Interval History Most bothered by hand tremors. R>L hands. Notices when using cell phone, checking blood sugar. Most activities. Trying to do some tasks with left hand. Right leg tremor comes and goes. Doesn't shake as much if not thinking about it. Asking about if he should be on Sinemet. Exercise limited by weather and not wanting to go out due to viruses. Balance is decent. Uses cane sometimes. Right leg can get stiff. Is little bit stiff all the time. Stretches and it helps. Takes Sinemet consistently. Doesn't think it helps. Nausea if doesn't take with food. Tried Cymbalta and within 3-4 days felt more depressed so he stopped taking it. Shingles pain is better with gabapentin. Worse if he doesn't take it. Didn't tolerate primidone. Not sure why. Maybe was related to Sinemet. Afraid affects memory and wouldn't want that. Movement Disorders Medications Schedule - as of the start of the visit: Medications 6 12 6 Bed Sinemet 25/100 2 2 2 gabapentin 800 mg 1 1 1 Parkinson's Motor Complications Wearing off: no Prior Anti-Parkinson Therapies Carbidopa/Levodopa Entacapone Other Movement Disorder Prior Therapies Primidone ALLERGIES Allergen Reactions Beta Blockers [Beta* Shortness of Breath Tongue swelling Current Outpatient Medications Medication Sig FARXIGA 5 mg tablet Take 5 mg by mouth once daily. ranolazine SR (RANEXA) 1,000 mg tab ER 12 hr Take 1 tablet by mouth twice daily. gabapentin (NEURONTIN) 600 mg tablet Take 1 tablet by mouth three times daily for 90 days. (Patienttaking differently: Take 800 mg by mouth three times daily.) clopidogrel (PLAVIX) 75 mg tablet Take 1 tablet by mouth once daily. aspirin 325 mg tablet Take 325 mg by mouth once daily. cholecalciferol, vitamin D3, (VITAMIN D3 ORAL) Take by mouth. B infantis/B ani/B tori/B bifid (PROBIOTIC 4X ORAL) Take by mouth. Magnesium Oxide 500 mg tab Take 250 mg by mouth twice daily. VIT B COMPLEX 100 COMBO NO.2 ORAL Take by mouth. glimepiride (AMARYL) 4 mg tablet Take 4 mg by mouth twice daily with meals. carbidopa-levodopa (SINEMET 25-100) 25-100 mg per tablet Take 2 tablets by mouth three times daily.(Patient taking differently: Take 2 tablets by mouth three times daily. Takes (2) tablet/tablets at600: am , 2:00 pm , 8:00 pm) tamsulosin ER (FLOMAX) 0.4 mg cap Take 1 capsule by mouth once daily. lisinopril (PRINIVIL) 10 mg tablet Take 1 tablet by mouth once daily. atorvastatin (LIPITOR) 80 mg tablet Take 0.5 tablets by mouth once daily. magnesium oxide (MAG-OX) 400 mg (241.3 mg magnesium) tablet Take 1 tablet by mouth once daily. nitroglycerin sublingual (NITROSTAT) 0.4 mg SL tablet Dissolve 1 tablet under the tongue as needed.FOR CHEST PAIN. IF NO RELIEF CALL 911 levothyroxine (SYNTHROID) 50 mcg tablet Take 50 mcg by mouth once daily. metFORMIN 1,000 mg ORAL tablet Take 1,000 mg by mouth twice daily with meals. FOLIC ACID 800 MCG TAB Take one(1) tablet two(2) times daily. No current facility-administered medications for this visit. Questionnaires: In addition, the following areas that may be affected by abnormal involuntary movements were evaluated: Daily activities Difficulties with eating: Yes (mild) Difficulties in dressing: Yes (slight) Difficulties with hygiene activities: Yes (slight) Difficulties with handwriting: Yes (severe) Difficulties with doing hobbies and other activities: Yes (slight) Difficulties turning in bed: Yes (slight) Difficulties getting out of bed, car or chair: Yes (moderate) Tremors/Gait/Balance Shaking or tremors: Yes (severe) Walking and balance problems: Yes (moderate) Number of falls in the Last Month: 0 Gait freezing: Yes (slight) Autonomic/Pain Lightheadeness on standing: Yes (mild) Urinary problems: Yes (slight) Constipation problems: 0 (none) Pain and other sensations: Yes (mild) Speech/Swallowing Speech problems: Yes (slight) Drooling: Yes (slight) Chewing and swallowing problems: Yes (slight) Sleep/Fatigue Sleep problems: Yes (mild) Daytime sleepiness: Yes (mild) Fatigue: Yes (mild) Mood/Behavior Depression: PHQ-9 Score: 6 usually representing mild (5-9) depression. Anxiety: IOANA-7 Total Score: 4 usually representing no significant (0-4) anxiety. Finally, the following table shows the patient's overall global physical and mental health using the PROMIS scale: PROMIS-10 Flowsheet Row Distance Health from 12/18/2022 in Neurology Office Visit from 06/29/2022 in Neurology Global Physical Health T Score 37.4 32.4 Global Mental Health T Score 41.1 41.1 0-10 Standard Pain Scale 3 3 *PROMIS-10 scoring scale: mean = 50, over 50 is above average, under 50 is below average Objective General: Awake, alert, interactive, no acute distress, good nutritional status, normal development,well-kept Neurological Exam Mental Status Awake and alert. Speech is normal. Language is fluent with no aphasia. Fund of knowledge is appropriate for level of education. Motor Bilateral upper extremity action and postural tremors. No dyskinesia. Assessment and Plan: Assessment Mr. Kline is a right-handed 82 year old male with ET/PD. Main complaint is tremor which seems more consistent with ET than PD. If this is a parkinsonian tremor then is medication-refractory. He tried primidone in the past but unclear result in terms of both benefit and side effects. Discussed use of primidone or Topamax for action tremor. He is not at all convinced Sinemet is helping so we will taper off and see what happens. Next step will likely be to try primidone again. The following are the current problems noted and addressed during this visit: Parkinson disease (hcc) (primary encounter diagnosis) Essential tremor Plan 12/18/2022 Visit: taper off Sinemet: reduce to 1.5 tabs 3 times a day for 1 week. Then reduce again to 1 tabs 3 timesa day for 1 week. Then reduce again to 1/2 tab 3 times a day for 1 week, then you can stop taking it. If you feel worse then you can restart it. in the future we can think about trying primidone again. Interested in clinical research? Not currently Updated Movement Disorder Medication Schedule: Medications 6 12 6 Bed Sinemet 25/100 2 2 2 gabapentin 800 mg 1 1 1 Level of service : 53028 (40-54 min). Time spent 51 min on the day of service, which included preparing to see the patient, [id number] patient care, completing clinical documentation, and counseling and educating the patient/family/caregiver. Thank you for allowing me to be part of the clinical care of this patient! I look forward to continued participation in the patient s care with you. Please do not hesitate to call with any questions. Sincerely, Marni Hudson MD documented in this encounterGreen [facility]12-21-2022 Miscellaneous Notes* Telephone Encounter - Jazzy Bonds - 11/11/2022 9:17 AM EST Last FUV Jun 2022 with KA. Next FUV 12/17/22 with KA. documented in this encounterGreen [facility]07-05-2022 Miscellaneous Notes* Telephone Encounter - Marlena Moya - 05/26/2022 1:[address] Hudson had an opening on 06/03/22. Added patient to schedule; notified him of appt details via voicemail and [facility] message. Marlena Moya * Telephone Encounter - Marlena Moya - 05/18/2022 1:21 PM EDT Called patient to schedule-no answer. Left voicemail requesting a call back to schedule appt. Patient's insurance also needs updated prior to scheduling appt. Please assist patient in rescheduling when he calls back. Marlena Moya * Telephone Encounter - Marlena Moya - 05/18/2022 1:20 PM EDT Images from the original note were not included. Colleen Wise RN You; Ashley Escobar Pss; Ernestina Goel 4 hours ago (9:06 AM) MG Hi All, (tried to route to the 2C pool but it didn't work) , if it works for him to do VV, can you offer him a slot in 06/05? I see that he has [facility], but when looking at his appt desk, wasn't able to confirm if he has had any VVs in the past or not. Let me know if we need to change a time slot. Thank you! ~LINSEY Mondragon May 18, 2022 9:06 AM Routing comment documented in this encounterGreen [facility] Hospital05-04-2022 Miscellaneous Notes* Telephone Encounter - Sharron Higginbotham MA - 03/25/2022 1:55 PM EDT Called patient to get the pre-rooming intake. I left voice mail for a returned call to the office to have this completed. If patient returns call please transfer call to myself or another clinical staff member. Thanks! Sharron Higginbotham MA documented in this encounterCore[facility]* Diagnosis Onset Date Resolution Status CKD (chronic kidney disease) chronic Edema chronic Fatigue chronic HTN (hypertension) chronic Hypothyroidism chronic Type II diabetes mellitus, uncontrolled chronic [facility] Work Phone: Evaluation note* Diagnosis Parkinson disease (HCC)- Primary Paralysis agitans Essential tremor Essential and other specified forms of tremor documented in this encounter [facility]* Diagnosis Parkinson disease (HCC)- Primary Paralysis agitans Muscle stiffness Unspecified disorder of muscle, ligament, and fascia Muscle pain Mylagia and myositis, unspecified documented in this encounter [facility]* Diagnosis Parkinson disease (HCC)- Primary Paralysis agitans Slow transit constipation documented in this encounter [facility] noteNo assessment information availableWFairfield Medical Center Work Phone: Evaluation note* Diagnosis Controlled type 2 diabetes mellitus without complication, without long-term current use of insulin (HCC)- Primary Acquired hypothyroidism Unspecified hypothyroidism Parkinson's disease, unspecified whether dyskinesia present, unspecified whether manifestations fluctuate 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 Essential tremor Essential and other specified forms of tremor 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 Stage 3a chronic kidney disease (HCC) documented in this encounter [facility] note* Diagnosis Controlled type 2 diabetes mellitus without complication, without long-term current use of insulin (HCC)- Primary Acquired hypothyroidism Unspecified hypothyroidism Stage 3a chronic kidney disease (HCC) Parkinson's disease, unspecified whether dyskinesia present, unspecified whether manifestations fluctuate (HCC) documented in this encounter [facility] note* Diagnosis Palpitations- Primary Diastolic congestive heart failure, unspecified HF chronicity (HCC) Atherosclerosis of [place] coronary artery of [place] heart without angina pectoris documented in this encounter [facility] note* Diagnosis Coronary artery disease involving [place] coronary artery of [place] heart, unspecified whether angina present- Primary PAC (premature atrial contraction) Supraventricular premature beats PVC (premature ventricular contraction) Other premature beats Atrial tachycardia (HCC) Other specified cardiac dysrhythmias documented in this encounter [facility] note* Diagnosis Primary hypertension- Primary Unspecified essential hypertension Coronary artery disease involving [place] coronary artery of [place] heart without angina pectoris documented in this encounter [facility] for referral (narrative)No reason for referral information availableWFairfield Medical Center Work Phone: Summary Purpose Family History No Family History Records Found Relationship Condition Age at Onset Recorded Date/T robbie mother Alzheimer's disease Unknown Diabetes mellitus Unknown father Coronary artery disease Unknown Cardiac disease Unknown brother Coronary artery disease Unknown daughter Arthritis Unknown Relationship Condition Age at Onset Recorded Date/T robbie mother Alzheimer's disease Unknown Diabetes mellitus Unknown father Coronary artery disease Unknown Cardiac disease Unknown brother Coronary artery disease Unknown daughter Arthritis Unknown aunt Alzheimer's disease Unknown uncle Alzheimer's disease Unknown Parkinson's disease Unknown Advance Directives No Advanced Directives Records FoundDocuments on File Type Date Recorded Patient Porter Marina Expl anation Advance Directive(s) 04/18/2021 8:33 AM Advance Directive(s) 02/24/2016 11:33 AM Advance Directive(s) 02/18/2016 4:39 PM Advance Directive Response Recorded Date/ Time Advance Directives No March 14 2:48pm Living Will No April 21, 2021 8 :41pm Power of Rn Admissions No April 21, 2021 8:41pm Advance Directive Response Recorded Date/ Time Advance Directives No March 14 1:48pm Living Will No April 21, 2021 7 :41pm Power of Rn Admissions No April 21, 2021 7:41pm Advance Directive Response Recorded Date/ Time Living Will No October 27 6:24pm Do you have a Healthcare Power of Rn Admissions? 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 RE-EST. DIABETES INT LABS Reason for Visit CKD (chronic kidney disease) Edema Fatigue HTN (hypertension) Hypothyroidism Type II diabetes mellitus, uncontrolled Chief Complaint Admit Date WEAKNESS AND UTI October 27, 2024 4 :33pm WEAKNESS AND UTI October 28, 2024 1 :07pm WEAKNESS AND UTI October 29, 2024 2 :20pm WEAKNESS AND UTI October 30, 2024 8 :49am WEAKNESS AND UTI October 31, 2024 8:05am WEAKNESS AND UTI November 01, 2024 7:20am ADMISSION EXAM November 02, 2024 5:52pm LABWORK November 03, 2024 5:00am ADMISSION EXAM November 07, 2024 3:24pm LABWORKJ November 09, 2024 5:00am LABWORK November 16, 2024 5:00am LABWORK November 23, 2024 5: 00am LAB WORK November 30, 2024 5: 15am S/P [facility] 11/01November 30, 2024 9: 59am ADMISSION EXAM December 04, 2024 1 2:52pm CUSTODIAL LAB WORK December 07, 2024 5:00am ADMISSION EXAM December 19, 2024 1 :28pm NEW CONCERN December 21, 2024 2 :05pm NEW CONCERN December 26, 2024 1 :17pm CUSTODIAL LAB WORK January 04 5:00am NEW CONCERN January 04, 2025 12:35pm CUSTODIAL LAB WORK January 31, 2025 5 :00am Reason for Visit Admit Date Acute UTI October 27, 2024 4 :33pm Chest pain October 27, 2024 4 :33pm CAD (coronary artery disease) November 9:59am Chest pain November 30, 2024 9: 59am Diabetes November 30, 2024 9: 59am Diastolic dysfunction November 30, 2024 9:59am Dyslipidemia November 30, 2024 9: 59am Essential hypertension November 30, 2024 9:59am Parkinson's disease November 30, 2024 9: 59am 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, 2024 9: 59am Stented coronary artery November 30 9:59am Chief Complaint Admit Date LAB WORK November 30, 2024 5: 15am S/P [facility] 11/01November 30, 2024 9: 59am ADMISSION EXAM December 04, 2024 1 2:52pm CUSTODIAL LAB WORK December 07, 2024 5:00am ADMISSION EXAM December 19, 2024 1 :28pm NEW CONCERN December 21, 2024 2 :05pm NEW CONCERN December 26, 2024 1 :17pm CUSTODIAL LAB WORK January 04 5:00am NEW CONCERN January 04, 2025 12:35pm CUSTODIAL LAB WORK January 31, 2025 5 :00am 21 M FU RS 12/05 CX 10/31February 27 10:51am CUSTODIAL LAB WORK February 28, 2025 5: 00am LABWORK March 01, 2025 5:0 0am Reason for Visit Admit Date CAD (coronary artery disease) November 9:59am Chest pain November 30, 2024 9: 59am Diabetes November 30, 2024 9: 59am Diastolic dysfunction November 30, 2024 9:59am Dyslipidemia November 30, 2024 9: 59am Essential hypertension November 30, 2024 9:59am Parkinson's disease November 30, 2024 9: 59am 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, 2024 9: 59am Stented coronary artery November 30 9:59am Type 2 diabetes mellitus February 27, 2025 10:51am CAD (coronary artery disease) February 27, 2025 10:51am CKD (chronic kidney disease) February 27, 2025 10:51am Chief Complaint Admit Date CUSTODIAL LAB WORK December 07, 2024 5:00am ADMISSION EXAM December 19, 2024 1 :28pm NEW CONCERN December 21, 2024 2 :05pm NEW CONCERN December 26, 2024 1 :17pm CUSTODIAL LAB WORK January 04 5:00am NEW CONCERN January 04, 2025 12:35pm CUSTODIAL LAB WORK January 31, 2025 5 :00am NEW CONCERN February 26, 2025 3:51 pm 21 M FU RS 10/26 CX 10/31February 27 10:51am CUSTODIAL LAB WORK February 28, 2025 5: 00am LABWORK March 01, 2025 5:0 0am Reason for Visit Admit Date Type 2 diabetes mellitus February 27, 2025 10:51am CAD (coronary artery disease) February 27, 2025 10:51am CKD (chronic kidney disease) February 27, 2025 10:51am Reason for Referral Specialty Diagnoses / Procedures Referred By Contac t Referred To Contact Diagnoses Parkinson disease (HCC) Essential tremor Procedures PROVIDER ORDERED FOLLOW UP OFFICE/OUTPATIENT NEW HIGH MDM 60-74 MINUTES Marni Hudson MD [address] [address] Referral ID Status Reason Start Date Expiration Date Visits Requested Visits Authorized [id number] Pending Review PCP Requested Referral 02/15/2023 12/18/2023 1 1 Specialty Diagnoses / Procedures Referred By Contac t Referred To Contact Diagnoses Parkinson disease (HCC) Procedures PROVIDER ORDERED FOLLOW UP OFFICE/OUTPATIENT NEW HIGH MDM 60-74 MINUTES Marni Hudson MD [address] [address] Referral ID Status Reason Start Date Expiration Date Visits Requested Visits Authorized [id number] Pending Review PCP Requested Referral 05/21/2023 02/19/2024 1 1 Specialty Diagnoses / Procedures Referred By Contac t Referred To Contact Diagnoses Parkinson disease (HCC) Muscle stiffness Muscle pain Procedures CONSULT TO MASSAGE THERAPY OFFICE/OUTPATIENT NEW HIGH MDM 60-74 MINUTES Marni Hudson MD [address] [address] Referral ID Status Reason Start Date Expiration Date Visits Requested Visits Authorized [id number] Pending Review PCP Requested Referral 02/19/2023 02/19/2024 1 1 Referral ID Status Reason Start Date Expiration Date Visits Requested Visits Authorized [id number] Pending Review PCP Requested Referral 07/06/2024 1 1 Specialty Diagnoses / Procedures Referred By Contac t Referred To Contact Diagnoses Parkinson disease (HCC) Procedures CONSULT TO MASSAGE THERAPY OFFICE/OUTPATIENT [facility] MDM 60-74 MINUTES Marni Hudson MD [address] [address] Referral ID Status Reason Start Date Expiration Date Visits Requested Visits Authorized [id number] Pending Review PCP Requested Referral 07/07/2023 07/06/2024 1 1 Specialty Diagnoses / Procedures Referred By Contac t Referred To Contact [facility] Diagnoses Parkinson disease (HCC) Procedures CONSULT TO PHYSICAL THERAPY PHYSICAL THERAPY EVALUATION HIGH COMPLEX 45 MINS Marni Hudson MD [address] [id number] [facility] [place] [address] [place] [address] Referral ID Status Reason Start Date Expiration Date Visits Requested Visits Authorized [id number] Pending Review Auto-Generat ed Referral 07/07/2023 07/06/2024 1 1 Additional Source Comments (unrecognized sect ion and content) No Status Records FoundNo Status Records FoundNo Status Records FoundNo Status Records FoundNo Status Records FoundNo Status Records Found INFORMATION SOURCE (unrecogn ized section and content) DATE CREATED AUTHOR 05/12/2018 [facility] DATE CREATED AUTHOR AUTHOR'S ORGANIZ ATION 07/11/2021 [facility] DATE CREATED AUTHOR AUTHOR'S ORGANIZ ATION 07/21/2021 [employer] DATE CREATED AUTHOR AUTHOR'S ORGANIZ ATION 03/04/2025 [facility] DATE CREATED AUTHOR AUTHOR'S ORGANIZ ATION 03/06/2025 [facility] DATE CREATED AUTHOR AUTHOR'S ORGANIZ ATION 04/05/2025 [facility] Source Comments (unrecognize d section and content) In the event this informatio n is protected by the Federal Confidentiality of Alcohol and Drug Abuse Patient Records regulations: The Federal rules restrict any use of the information to criminally investigate or prosecute any alcohol or drug abuse patient.[facility] the event this information is protected by the Federal Confidentiality of Alcohol and Drug Abuse Patient Records regulations: The Federal rules restrict any use of the information to criminally investigate or prosecute any alcohol or drug abuse patient.[facility] the event this information is protected by the Federal Confidentiality of Alcohol and Drug Abuse Patient Records regulations: The Federal rules restrict any use of the information to criminally investigate or prosecute any alcohol or drug abuse patient.[facility] the event this information is protected by the Federal Confidentiality of Alcohol and Drug Abuse Patient Records regulations: The Federal rules restrict any use of the information to criminally investigate or prosecute any alcohol or drug abuse patient.[facility] the event this information is protected by the Federal Confidentiality of Alcohol and Drug Abuse Patient Records regulations: The Federal rules restrict any use of the information to criminally investigate or prosecute any alcohol or drug abuse patient.[facility] Hospital[facility] the event this information is protected by the Federal Confidentiality of Alcohol and Drug Abuse Patient Records regulations: The Federal rules restrict any use of the information to criminally investigate or prosecute any alcohol or drug abuse patient.[facility] Hospital[facility] the event this information is protected by the Federal Confidentiality of Alcohol and Drug Abuse Patient Records regulations: The Federal rules restrict any use of the information to criminally investigate or prosecute any alcohol or drug abuse patient.[facility] Hospital[facility] the event this information is protected by the Federal Confidentiality of Alcohol and Drug Abuse Patient Records regulations: The Federal rules restrict any use of the information to criminally investigate or prosecute any alcohol or drug abuse patient.[facility] the event this information is protected by the Federal Confidentiality of Alcohol and Drug Abuse Patient Records regulations: The Federal rules restrict any use of the information to criminally investigate or prosecute any alcohol or drug abuse patient.[facility] the event this information is protected by the Federal Confidentiality of Alcohol and Drug Abuse Patient Records regulations: The Federal rules restrict any use of the information to criminally investigate or prosecute any alcohol or drug abuse patient.[facility] the event this information is protected by the Federal Confidentiality of Alcohol and Drug Abuse Patient Records regulations: The Federal rules restrict any use of the information to criminally investigate or prosecute any alcohol or drug abuse patient.[facility] Hospital[facility] the event this information is protected by the Federal Confidentiality of Alcohol and Drug Abuse Patient Records regulations: The Federal rules restrict any use of the information to criminally investigate or prosecute any alcohol or drug abuse patient.[facility] Hospital[facility] the event this information is protected by the Federal Confidentiality of Alcohol and Drug Abuse Patient Records regulations: The Federal rules restrict any use of the information to criminally investigate or prosecute any alcohol or drug abuse patient.[facility] HospitalIn the event this information is protected by the Federal Confidentiality of Alcohol and Drug Abuse Patient Records regulations: The Federal rules restrict any use of the information to criminally investigate or prosecute any alcohol or drug abuse patient.[facility] HospitalIn the event this information is protected by the Federal Confidentiality of Alcohol and Drug Abuse Patient Records regulations: The Federal rules restrict any use of the information to criminally investigate or prosecute any alcohol or drug abuse patient.[facility] HospitalIn the event this information is protected by the Federal Confidentiality of Alcohol and Drug Abuse Patient Records regulations: The Federal rules restrict any use of the information to criminally investigate or prosecute any alcohol or drug abuse patient.[facility] HospitalIn the event this information is protected by the Federal Confidentiality of Alcohol and Drug Abuse Patient Records regulations: The Federal rules restrict any use of the information to criminally investigate or prosecute any alcohol or drug abuse patient.[facility] Hospital[facility] the event this information is protected by the Federal Confidentiality of Alcohol and Drug Abuse Patient Records regulations: The Federal rules restrict any use of the information to criminally investigate or prosecute any alcohol or drug abuse patient.[facility] Reason for Visit (unrecogniz ed section and content) Reason Comments upcoming appointment pre-rooming phone c all Reason Comments Opened In Error Reason Comments Opened In Error Reason Comments Telemedicine Specialty Diagnoses / Procedures Referred By Contac t Referred To Contact Diagnoses Parkinson disease (HCC) Gait instability Procedures PROVIDER ORDERED FOLLOW UP OFFICE/OUTPATIENT NEW HIGH [facility] 60-74 MINUTES Marni Hudson MD [address] [address] Referral ID Status Reason Start Date Expiration Date V isits Requested Visits Authorized [id number] Closed PCP Requested Referral 06/29/2022 09/27/2022 1 1 Reason Comments Orders Mailed orders Reason Comments Telemedicine Follow Up Specialty Diagnoses / Procedures Referred By Contac t Referred To Contact Diagnoses Parkinson disease (HCC) Essential tremor Procedures PROVIDER ORDERED FOLLOW UP OFFICE/OUTPATIENT NEW HIGH MDM 60-74 MINUTES Marni Hudson MD [address] [address] Referral ID Status Reason Start Date Expiration Date Visits Requested Visits Authorized [id number] Pending Review PCP Requested Referral 02/15/2023 12/18/2023 1 1 Reason Comments Telemedicine Follow Up Reason Comments New Patient Reason Comments patient update on fall Reason Comments f/u Labs Reason Onset Date Comments Refill Request 09/11/2024 Reason Comments Follow Up 6 month follow up Reason Comments New Patient Ref; Dr Jones for AB N Holter Reason Comments Follow Up 6 week follow up, c/ o chest pain Care Teams (unrecognized sec tion and content) Informatics Coordinator Relationship Specialty Start Date End Date Felix Montelongo [address] [place] [address] PCP - General Unspecified 02/04/16 Anupama Feng DO Internal Medicine 12/29/12 Cali Still MD Primary Staff Physician Cardiology 02/07/19 Informatics Coordinator Relationship Specialty Start Date End Date Felix Montelongo MD [address] [place] [address] PCP - General Unspecified 02/04/16 Anupama Feng DO Internal Medicine 12/29/12 Cali Still MD Primary Staff Physician Cardiology 02/07/19 Informatics Coordinator Relationship Specialty Start Date End Date Felix Montelongo MD [address] [place], [place] [id number] PCP - General Unspecified 02/04/16 Anupama Feng, DO Internal Medicine 12/29/12 Cali Still MD Primary Staff Physician Cardiology 02/07/19 Informatics Coordinator Relationship Specialty Start Date End Date Felix Montelongo MD [address] [place] [address] PCP - General Unspecified 02/04/16 Anupama Feng, Internal Medicine 12/29/12 Cali Still MD [address] [place] [address] Primary Staff Physician Cardiology 02/07/19 Informatics Coordinator Relationship Specialty Start Date End Date Felix Montelongo MD [address] [place] [address] PCP - General Unspecified 02/04/16 Anupama Feng, Internal Medicine 12/29/12 Cali Still MD [address] [place] [address] Primary Staff Physician Cardiology 02/07/19 Informatics Coordinator Relationship Specialty Start Date End Date Felix Montelongo MD [address] [place] [address] PCP - General Unspecified 02/04/16 Anupama Feng, Internal Medicine 12/29/12 Cali Still MD [address] [place] [address] Primary Staff Physician Cardiology 02/07/19 Informatics Coordinator Relationship Specialty Start Date End Date Felix Montelongo MD [address] [place] [address] PCP - General Unspecified 02/04/16 Anupama Feng DO Internal Medicine 12/29/12 Cali Still MD [address] [place] [address] Primary Staff Physician Cardiology 02/07/19 Informatics Coordinator Relationship Specialty Start Date End Date Felix Montelongo MD [address] [place] [id number] PCP - General Unspecified 02/04/16 Anupama Feng DO Internal Medicine 12/29/12 Cali Still MD [address] [place] [address] Primary Staff Physician Cardiology 02/07/19 Team Status: Active Member Role Status Dates Dr. Barrett Avalos MD Family Provider Active Dr. Felix Montelongo MD Primary Care Provider Active Team Status: Inactive Member Role Status Dates Dr. Felix Montelongo MD Primary Care Provider Active RUDDY ANGLIN Attending Provider, Referring Provid er Active Informatics Coordinator Relationship Specialty Start Date End Date Felix Montelongo MD [address] [place] [id number] PCP - General Unspecified 02/04/16 Anupama Feng DO Internal Medicine 12/29/12 Cali Still MD [address] [place] [address] Primary Staff Physician Cardiology 02/07/19 Marni Hudson MD [address] [address] Specialty Amusement Or Recreation Card Checker Neurology 11/10/23 Informatics Coordinator Relationship Specialty Start Date End Date Felix Montelongo MD [address] [place] [address] PCP - General Unspecified 02/04/16 Anupama Feng DO Internal Medicine 12/29/12 Cali Still MD [address] [place] [address] Primary Staff Physician Cardiology 02/07/19 Marni Hudson MD [address] [address] Specialty Amusement Or Recreation Card Checker Neurology 11/10/23 Informatics Coordinator Relationship Specialty Start Date End Date Felix Montelongo MD [address] [place] [address] PCP - General Unspecified 02/04/16 Anupama Feng DO Internal Medicine 12/29/12 Cali Still MD [address] [place] [address] Primary Staff Physician Cardiology 02/07/19 Marni Hudson MD [address] [address] Specialty Amusement Or Recreation Card Checker Neurology 11/10/23 Informatics Coordinator Relationship Specialty Start Date End Date Rocío Wagner PA-C [address] [place] [address] PCP - General Family Medicine 02/01/24 Anupama Feng DO Internal Medicine 12/29/12 Cali Still MD Primary Staff Physician Cardiology 02/07/19 Marni Hudson MD [address] [address] Specialty Amusement Or Recreation Card Checker Neurology 11/10/23 Informatics Coordinator Relationship Specialty Start Date End Date Vincent Espinosa MD [address] [place] [address] PCP - General Internal Medicine 02/29/24 Anupama Feng DO Internal Medicine 12/29/12 Cali Still MD Primary Staff Physician Cardiology 02/07/19 Marni Hudson MD [address] [address] Specialty Amusement Or Recreation Card Checker Neurology 11/10/23 Informatics Coordinator Relationship Specialty Start Date End Date Vincent Espinosa MD [address] [place], [place] [address] PCP - General Internal Medicine 02/29/24 Anupama Feng DO Internal Medicine 12/29/12 Cali Still MD Primary Staff Physician Cardiology 02/07/19 Marni Hudson MD [address] [address] Specialty Amusement Or Recreation Card Checker Neurology 11/10/23 Rocío Wagner PA-C [address] [place] [address] Hydraulics Teacher Family Medicine 10/29/24 Sheela Cochran APRN.CNP [address] [place] [address] Hydraulics Teacher Internal Medicine 10/29/24 Janine Daugherty PA-C [address] [place], [place] [address] Hydraulics Teacher Family Medicine 10/29/24 Informatics Coordinator Relationship Specialty Start Date End Date Vincent Espinosa MD [address] [place], [place] [address] PCP - General Internal Medicine 02/29/24 Anupama Feng DO Internal Medicine 12/29/12 Cali Still MD Primary Staff Physician Cardiology 02/07/19 Marni Hudson MD [address] [address] Specialty Amusement Or Recreation Card Checker Neurology 11/10/23 Rocío Wagner PA-C [address] [place] [address] Hydraulics Teacher Family Medicine 10/29/24 Sheela Cochran APRN.CNP [address] [place] [address] Hydraulics Teacher Internal Medicine 10/29/24 Janine Daugherty PA-C [address] [place] [address] Hydraulics Teacher [facility] 10/29/24 Team Status: Inactive Member Role Status Dates Dr. Felix Montelongo MD Primary Care Provider Active Start: October 27, 2024 End: November 01, 2024 Dr. Velaqsuez Morales , Emergency Provider Activ e Start: October 27, 2024 End: November 01, 2024 Dr. Sulma Romero MD Admit Provider Active Star t: October 27, 2024 End: November 01, 2024 Dr. Sulma Romero MD Other Provider Active Star t: October 27, 2024 End: November 01, 2024 Dr. Sung Rhodes , Attending Provider Active Start: October 27, 2024 End: November 01, 2024 Dr. Roderick Laurent , Other Provider Active S tart: October 27, 2024 End: November 01, 2024 Team Status: Active Member Role Status Dates Dr. Felix Montelongo MD Primary Care Provider Active Start: October 28, 2024 Dr. Angela Ramirez MD Attending Provider Active Start: October 28, 2024 Team Status: Active Member Role Status Dates Dr. Felix Montelongo MD Primary Care Provider Active Start: October 28, 2024 Dr. Velasquez Morales , DO Emergency Provider Activ e Start: October 28, 2024 Dr. Sulma Romero MD Admit Provider Active Star t: October 28, 2024 Dr. Sulma Romero MD Other Provider Active Star t: October 28, 2024 Dr. Roderick Laurent , DO Attending Provider Active Start: October 28, 2024 Dr. Roderick Laurent , DO Other Provider Active S tart: October 28, 2024 Team Status: Active Member Role Status Dates Dr. Felix Montelongo MD Primary Care Provider Active Start: October 29, 2024 Dr. Velasquez Morales , DO Emergency Provider Activ e Start: October 29, 2024 Dr. Sulma Romero MD Admit Provider Active Star t: October 29, 2024 Dr. Sulma Romero MD Other Provider Active Star t: October 29, 2024 Dr. Roderick Laurent , DO Attending Provider Active Start: October 29, 2024 Dr. Roderick Laurent , DO Other Provider Active S tart: October 29, 2024 Team Status: Active Member Role Status Dates Dr. Felix Montelongo MD Primary Care Provider Active Start: October 30, 2024 Dr. Velasquez Morales , DO Emergency Provider Activ e Start: October 30, 2024 Dr. Sulma Romero MD Admit Provider Active Star t: October 30, 2024 Dr. Sulma Romero MD Other Provider Active Star t: October 30, 2024 Dr. Sung Rhodes , DO Attending Provider Active Start: October 30, 2024 Dr. Sung Rhodes , DO Other Provider Active Star t: October 30, 2024 Dr. Roderick Laurent , DO Other Provider Active S tart: October 30, 2024 Team Status: Active Member Role Status Dates Dr. Felix Montelongo MD Primary Care Provider Active Start: October 31, 2024 Dr. Velasquez Morales DO Emergency Provider Activ e Start: October 31, 2024 Dr. Sulma Romero MD Admit Provider Active Star t: October 31, 2024 Dr. Sulma Romero MD Other Provider Active Star t: October 31, 2024 Dr. Sung Rhodes , DO Attending Provider Active Start: October 31, 2024 Dr. Sung Rhodes DO Other Provider Active Star t: October 31, 2024 Dr. Roderick Laurent , DO Other Provider Active S tart: October 31, 2024 Team Status: Active Member Role Status Dates Dr. Felix Montelongo MD Primary Care Provider Active Start: November 01, 2024 Dr. Velasquez Morales , DO Emergency Provider Activ e Start: November 01, 2024 Dr. Sulma Romero MD Admit Provider Active Star t: November 01, 2024 Dr. Sulma Romero MD Other Provider Active Star t: November 01, 2024 Dr. Sung Rhodes DO Attending Provider Active Start: November 01, 2024 Dr. Sung Rhodes , DO Other Provider Active Star t: November 01, 2024 Dr. Roderick Laurent , DO Other Provider Active S tart: November 01, 2024 Team Status: Inactive Member Role Status Dates Dr. Felix Montelongo MD Primary Care Provider Active Start: November 02, 2024 End: November 02, 2024 Abeba Peacock NP, CHARGE ACCOUNT IDENTIFICATION CLERK-C Attending Provider Active Start: November 02, 2024 End: November 02, 2024 Team Status: Active Member Role Status Dates Dr. Felix Montelongo MD Primary Care Provider Active Start: November 03, 2024 Buzz ZHANG MD Attending Provider Active Start: November 03, 2024 Team Status: Inactive Member Role Status Dates Dr. Felix Montelongo MD Primary Care Provider Active Start: November 07, 2024 End: November 07, 2024 Dr. Buzz Rainey MD Attending Provider Active Start: November 07, 2024 End: November 07, 2024 Team Status: Active Member Role Status Dates Dr. Felix Montelongo MD Primary Care Provider Active Start: November 09, 2024 Buzz ZHANG MD Attending Provider Active Start: November 09, 2024 Team Status: Active Member Role Status Dates Dr. Felix Montelongo MD Primary Care Provider Active Start: November 16, 2024 Buzz ZHANG MD Attending Provider Active Start: November 16, 2024 Team Status: Active Member Role Status Dates Dr. Felix Montelongo MD Primary Care Provider Active Start: November 23, 2024 Buzz ZHANG MD Attending Provider Active Start: November 23, 2024 Team Status: Active Member Role Status Dates Dr. Felix Montelongo MD Primary Care Provider Active Start: November 30, 2024 Buzz ZHANG MD Attending Provider Active Start: November 30, 2024 Team Status: Inactive Member Role Status Dates Dr. Felix Montelongo MD Primary Care Provider Active Start: November 30, 2024 End: November 30, 2024 Dr. Felix Montelongo MD Referring Provider Active S tart: November 30, 2024 End: November 30, 2024 Dr. Margie Gary MD Attending Provider Active Start: November 30, 2024 End: November 30, 2024 Team Status: Inactive Member Role Status Dates Dr. Felix Montelongo MD Primary Care Provider Active Start: December 04, 2024 End: December 04, 2024 Abeba Peacock NP, CHARGE ACCOUNT IDENTIFICATION CLERK-C Attending Provider Active Start: December 04, 2024 End: December 04, 2024 Team Status: Active Member Role Status Dates Dr. Felix Montelongo MD Primary Care Provider Active Start: December 07, 2024 Buzz ZHANG MD Attending Provider Active Start: December 07, 2024 Team Status: Inactive Member Role Status Dates Dr. Felix Montelongo MD Primary Care Provider Active Start: December 19, 2024 End: December 19, 2024 Dr. Buzz Rainey MD Attending Provider Active Start: December 19, 2024 End: December 19, 2024 Team Status: Inactive Member Role Status Dates Dr. Felix Montelongo MD Primary Care Provider Active Start: December 21, 2024 End: December 21, 2024 Abeba Peacock CHARGE ACCOUNT IDENTIFICATION CLERK, CHARGE ACCOUNT IDENTIFICATION CLERK-C Attending Provider Active Start: December 21, 2024 End: December 21, 2024 Team Status: Inactive Member Role Status Dates Dr. Felix Montelongo MD Primary Care Provider Active Start: December 26, 2024 End: December 26, 2024 Dr. Buzz Rainey MD Attending Provider Active Start: December 26, 2024 End: December 26, 2024 Team Status: Active Member Role Status Dates Dr. Felix Montelongo MD Primary Care Provider Active Start: January 04, 2025 Buzz ZHANG MD Attending Provider Active Start: January 04, 2025 Team Status: Inactive Member Role Status Dates Dr. Felix Montelongo MD Primary Care Provider Active Start: January 04, 2025 End: January 04, 2025 Abeba Peacock CHARGE ACCOUNT IDENTIFICATION CLERK, CHARGE ACCOUNT IDENTIFICATION CLERK-C Attending Provider Active Start: January 04, 2025 End: January 04, 2025 Team Status: Inactive Member Role Status Dates Dr. Felix Montelongo MD Primary Care Provider Active Start: January 31, 2025 End: January 31, 2025 Buzz ZHANG MD Attending Provider Active Start: January 31, 2025 End: January 31, 2025 Informatics Coordinator Relationship Specialty Start Date End Date Vincent Espinosa MD [address] [place] [address] PCP - General Internal Medicine 02/29/24 Anupama Feng DO Internal Medicine 12/29/12 Cali Still MD Primary Staff Physician Cardiology 02/07/19 Marni Hudson MD [address] [address] Specialty Amusement Or Recreation Card Checker Neurology 11/10/23 Sheela Cochran APRN.[place] [address] [place] [address] Hydraulics Teacher Internal Medicine 10/29/24 Informatics Coordinator Relationship Specialty Start Date End Date Vincent Espinosa MD [address] [place] [address] PCP - General Internal Medicine 02/29/24 Anupama Feng DO Internal Medicine 12/29/12 Cali Still MD Primary Staff Physician Cardiology 02/07/19 Marni Hudson MD [address] [facility] [address] [place], [place] [id number] Specialty Amusement Or Recreation Card Checker Neurology 11/10/23 Sheela Cochran APRN.[employer]K [employer]ANT AGENT [address] [place] [address] Hydraulics Teacher Internal Medicine 10/29/24 Team Status: Inactive Member Role Status Dates Dr. Felix Montelongo MD Primary Care Provider Active Start: February 27, 2025 End: February 27, 2025 Dr. Felix Montelongo MD Referring Provider Active S tart: February 27, 2025 End: February 27, 2025 Dr. Ozzy Bro MD Attending Provider Active Sta rt: February 27, 2025 End: February 27, 2025 Team Status: Inactive Member Role Status Dates Dr. Felix Montelongo MD Primary Care Provider Active Start: February 28, 2025 End: February 28, 2025 Buzz ZHANG MD Attending Provider Active Start: February 28, 2025 End: February 28, 2025 Team Status: Inactive Member Role Status Dates Dr. Felix Montelongo MD Primary Care Provider Active Start: March 01, 2025 End: March 01, 2025 Buzz ZHANG MD Attending Provider Active Start: March 01, 2025 End: March 01, 2025 Team Status: Active Member Role Status Dates Dr. Felix Montelongo MD Primary Care Provider Active Start: March 29, 2025 Buzz ZHANG MD Attending Provider Active Start: March 29, 2025 Team Status: Inactive Member Role Status Dates Dr. Felix Montelongo MD Primary Care Provider Active Start: February 26, 2025 End: February 26, 2025 Abeba Peacock CHARGE ACCOUNT IDENTIFICATION CLERK, CHARGE ACCOUNT IDENTIFICATION CLERK-C Attending Provider Active Start: February 26, 2025 End: February 26, 2025 Goals (unrecognized section and content) Goals may be documented in a n alternate sectionGoals may be documented in an alternate sectionGoals may be documented in an alternate sectionGoals may be documented in an alternate section FOR RECORDS PERTAINING TO PATIENTS WHO ARE OR HAVE BEEN ENROLLED IN A CHEMICAL DEPENDENCY/SUBSTANCEABUSE PROGRAM, SOME INFORMATION MAY BE OMITTED. This clinical summary was aggregated from multiple sources. Caution should be exercised in using it in the provision of clinical care. This summary normalizes information from multiple sources, and as a consequence, information in this document may materially change the coding, format and clinical context of patient data. In addition, data may be omitted in some cases. CLINICAL DECISIONS SHOULD BE BASED ON THE PRIMARY CLINICAL RECORDS. [facility] [employer] [facility]. provides no warranty or guarantee of the accuracy or completeness of information in this document.
--- OUTSIDE RECORDS SUMMARY | 2025-04-26 03:53 | XMS RPT_ITS | CCD ---
Author Organization [facility] CliniSyva Care Team Providers Care [employer] Manufacturing Technician Name Role Phone NICOLA PAYNE Unavailable Unavailable [...] Unavailable Felix Montelongo MD Primary Care Provider Dr. Felix Montelongo Primary Care Provider Dr. Felix Montelongo Referring Provider [phone] HELEN Durand Attending Provider Anupama Feng DO Unavailable Felix Montelongo MD Primary Care Provider Cali Still MD Unavailable Anupama Feng DO Unavailable Felix Montelongo MD Primary Care Provider [phone] Cali Still MD Unavailable Cali Still MD Unavailable Felix Montelongo MD Primary Care Provider Cali Still MD Unavailable Marni Hudson MD Unavailable Cali Still MD Unavailable Rocío Wagner PA-C Primary Care Provider Vincent Espinosa MD Primary Care Provider Cali Still MD Unavailable Rocío Wagner PA-C L Unavailable Older PIPE TURNER.SHOE CASER, Sheela Unavailable Janine Daugherty PA-C Unavailable Jayda SHAW, Dr. [place] Primary Care Provider Carmen DE LA CRUZ, Dr. Eng Emergency Provider Nick SHAW, Dr. Ozuna Admit Provider Nick SHAW, Dr. Ozuna Other Provider Dr. Sung Rhodes [...] SHAW, Buzz Attending Provider Unavaila ble Tickton SUPERVISOR ASSEMBLING-C, Abeba Attending Provider Redd SHAW, Dr. Gerber Attending Provider King VALERIA, Dr. Preciado Attending Provider Jayda SHAW, Dr. [place] Primary Care Provider Redd SHAW, Buzz Attending Provider Unavaila ble Tickton SUPERVISOR ASSEMBLING-C, Abeba Attending Provider Jayda SHAW, Dr. [place] Referring Provider Redd ZHANG Efewongbe Attending Unavailabl e Jayda, Felix Primary Care Unavailable Jayda, Felix Primary Care Unavailable Durga THORPE, Rita Schwartz Attending Unavailabl e Jayda, [...] Unavailable Jayda, Felix Primary Care Unavailable Tickton SUPERVISOR ASSEMBLING, Abeba Attending Unavailable Jayda, Felix Primary Care Unavailable Mauroton SUPERVISOR ASSEMBLING, Abeba Attending Unavailable Jayda, Felix Primary Care Unavailable Tickton SUPERVISOR ASSEMBLING, Abeba Attending Unavailable Jayda, Felix Primary Care Unavailable Oleghe Efewongbe Attending Unavailable Jayda, Felix Primary Care Unavailable Tickton SUPERVISOR ASSEMBLING, Abeba Attending Unavailable Jayda, Felix Primary Care Unavailable Margie Gary Attending Unavailable Jayda, Felix Primary Care Unavailable Jayda, Felix Referring Unavailable Jayda, Felix Primary Care Unavailable OleAlexandra Escalanteewongbe Attending Unavailabl lana Calixto SUPERVISOR ASSEMBLING, Rita Schwartz Attending Unavailabl e Jayda, Felix [...] Unavailable Rahe LEATHA Efewongbe Attending Unavaildonal Calixto SUPERVISOR ASSEMBLING, Rita Schwartz Consulting Unavailabl e Jayda, Felix Primary Care Unavailable Durga SUPERVISOR ASSEMBLING, Rita Schwartz Attending Unavailabl e Jayda, Felix [...] adverse reactions (disorder) 0 Shortness of Breath [facility] Repository (6 sources) Beta-Blockers (Beta-Adrenergi c Bloc; Translations: [Beta-Blockers (Beta-Adrenergi c Bloc] Allergy to substance 2 ANGIOEDEMA [facility] Medications Current Medications Medication Drug Class(es) Dates [...] Comment on above: Take 2 tablets by [facility] three times daily. cholecalciferol 0.025 mg oral [...] Comment on above: Take 1 tablet by [facility] once daily. DULoxetine 20 mg delayed release oral capsule (3 sources) Serotonin and Norepinephrine Reuptake Inhibitor Start: 07-06-20 End: 07-06-20 23 take 1 capsule by mouth once daily DULoxetine (CYMBALTA) 20 mg capsule Take 1 capsule by mouth once daily. 30 capsule 11 07/06/2022 12/18/2022 Discontinued Comment on above: Take 1 capsule by [facility] once daily. finasteride 5 mg oral tablet [...] Comment on above: Take 1 capsule by [facility] once daily. 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; Translations: [Coronary [...] X 8 Promus Synergy per DJN @ [facility]07/20/2018:JACQUELINE of mid sokaogon RPL branch, 3.0 X 16 Promus Synergy ; JACQUELINE of distal SVG to RCA, 2.5 X 20 Promus Synergy per DJN @ [facility] Nonspecific chest pain (12 sources) Chest pain; [...] Auto (Unsp spec) [#/Vol] 0.83 10*3/uL 0.83-4.51 [facility] Absolute neutrophil countOrd ered By: Buzz Rainey on 03-29-2025 Neutrophils (Bld) [#/Vol] 2.7 10*3/uL 2.0-7.7 [facility] Anion gap in Serum or Plasma Ordered By: Buzz Rainey on 03-29-2025 Anion gap [Moles/Vol] 11 mmol/L 5-15 [facility] Automated lymphocyte count a s percentage of total leukocytesOrdered By: Buzz Rainey on 03-29-2025 Lymphocytes/100 WBC Auto (Unsp spec) 19.5 % 19-41 [facility] BUN/creatinine ratioOrdered By: Buzz Rainey on 03-29-2025 Urea nitrogen/Creatinine [Mass ratio] 30.3 mg/mg High 10-20 [facility] Basophil percentageOrdered B y: Buzz Rainey on 03-29-2025 Basophils/100 WBC (Bld) 0.7 % 0-[address] [facility] Carbon dioxide, total [Moles /volume] in Central venous bloodOrdered By: Buzz Brainlavelle on 03-29-2025 CO2 [Moles/Vol] 22.7 mmol/L 21.0-32.0 [facility] Chloride assayOrdered By: Alexandra tamanna Brainlavelle on 03-29-2025 Chloride [Moles/Vol] 103 mmol/L 98-108 [facility] Eosinophil percentageOrdered By: Buzz Rainey on 03-29-2025 Eosinophils/100 WBC (Bld) 4.0 % 0-5 [facility] Erythrocyte distribution wid th ratioOrdered By: tamanna Brainlavelle on 03-29-2025 Erythrocyte distribution width (RBC) [Ratio] 12.0 % 11.6-14.6 [facility] Erythrocyte distribution wid th standard deviationOrdered By: yumikofairfieldestrella Rainey on 03-29-2025 Erythrocyte distribution width (RBC) [Ratio] 43.5 fl 35.1-43.9 [facility] Glomerular filtration rate ( GFR) estimation/1.73 sq m using serum, plasma, or whole bOrdered By: Buzz Brainlavelle on 03-29-2025 GFR/1.73 sq M.predicted among non-blacks MDRD (S/P/Bld) [Vol rate/Area] 57 mL/min/{1.73_m2} Low >60 [facility] Comment on above: mL/min/1.73m2 CKD-EP I Creatinine Equation (2020) Hematocrit Auto (Bld) [Volum e fraction]Ordered By: Alexandrayumikohueyestrella De La Pazmklana on 03-29-2025 Hematocrit (Bld) [Volume fraction] 35.5 % Low 40-54 [facility] Hemoglobin measurementOrdere d By: Alexandrayumikouheyestrella De La Pazmklana on 03-29-2025 Hemoglobin (Bld) [Mass/Vol] 12.1 g/dL Low 13.0-16.5 [facility] Immature granulocytes/100 WB C Auto (Bld)Ordered By: Buzz Rainey on 03-29-2025 Immature granulocytes/100 WBC (Bld) 0.000 % 0.0-0.9 [facility] Comment on above: IG% - Immature Granu locytes (promyelocytes, myelocytes and metamyelocytes) > 1% indicates that a LEFT SHIFT is Present. MCV (mean corpuscular volume ) determinationOrdered By: Buzz Rainey on 03-29-2025 MCV (RBC) [Entitic vol] 98.3 fL High 80-[address] [facility] Mean corpuscular hemoglobin (MCH) determinationOrdered By: Buzz Rainey on 03-29-2025 MCH (RBC) [Entitic mass] 33.5 pg High 27.0-32.0 [facility] Mean corpuscular hemoglobin concentration (MCHC) determinationOrdered By: Buzz Rainey on 03-29-2025 MCHC (RBC) [Mass/Vol] 34.1 g/dL 32-36 [facility] Mean platelet volume determi nationOrdered By: Buzz Rainey on 03-29-2025 Platelet mean volume (Bld) [Entitic vol] 10.4 fL 6.2-12.0 [facility] Monocyte percentageOrdered B y: Buzz Rainey on 03-29-2025 Monocytes/100 WBC (Bld) 12.2 % High 0-[address] [facility] Neutrophil percentageOrdered By: Buzz Rainey on 03-29-2025 Neutrophils/100 WBC (Bld) 63.6 % 47-70 [facility] Nucleated red blood cell per centageOrdered By: Buzz Rainey on 03-29-2025 Nucleated RBC/100 WBC (Bld) [Ratio] 0 % 0-5 [facility] Platelet countOrdered By: Alexandra Rainey on 03-29-2025 Platelets (Bld) [#/Vol] 182 10*3/uL 150-450 [facility] Potassium measurement (mass/ volume)Ordered By: Buzz Rainey on 03-29-2025 Potassium (Unsp spec) [Mass/Vol] 4.8 mmol/L 3.3-5.1 [facility] RBC Auto (Bld) [#/Vol]Ordere d By: Buzz Brainlavelle on 03-29-2025 RBC (Bld) [#/Vol] 3.61 10*6/uL Low 4.6-6.2 [facility] Serum creatinine measurement (mass/volume)Ordered By: Buzz Rainey on 03-29-2025 Creatinine [Mass/Vol] 1.25 mg/dL High 0.70-1.20 [facility] Serum glucose measurement (m ass/volume)Ordered By: Buzz Rainey on 03-29-2025 Glucose [Mass/Vol] 269 mg/dL High 70-99 [facility] Serum or plasma calcium jesenia urement (mass/volume)Ordered By: Otiliafairfieldestrella Rainey on 03-29-2025 Calcium [Mass/Vol] 9.0 mg/dL 7.6-11.0 [facility] Serum or plasma urea nitroge n measurement (mass/volume)Ordered By: Buzz Rainey on 03-29-2025 Urea nitrogen [Mass/Vol] 38 mg/dL High 4-19 [facility] Sodium levelOrdered By: Otilia gibson Brainmklana on 03-29-2025 Sodium [Moles/Vol] 136 mmol/L 133-145 [facility] White blood cell (WBC) count Ordered By: Buzz Rainey on 03-29-2025 WBC (Bld) [#/Vol] 4.3 10*3/uL Low 4.4-11.0 [facility] CNOVon 2025 CNOV Office Visit (CARDWS ) FLEX KLINE ([id number]) 1940 Arina Date Time Provider Department 03/05/25 11:00 AM HARJINDER JONES During your visit today, we recorded the following information about you: Pulse Respiration Blood pressure Weight 82/minute 16/minute 138/60 81.6 kg Height 1.765 m Harjinder Jones MD 2025 12:16 PM Signed Harjinder Jones MD Interventional Cardiology [address] [place] [address] [phone] Chief Complaint Patient presents with: Follow Up: 6 week follow up, c/o chest pain HISTORY OF PRESENT ILLNESS: Mr. Kline is a 85 year old male seen in my office today for follow-up patient had a prior history of severe sokaogon coronary artery disease with prior history of [...] meals. FOL (more content not included)... Normal [facility] CNOVon 03-02-2025 CNOV Office Visit (AGCARDPOB) FLEX KLINE ([id number]) 1940 Date Time Provider Department 03/02/25 10:20 AM KWAN ESTRELLA AGCARDPOB During your visit today, we recorded the following information about you: Pulse Blood pressure Weight 69/minute 113/63 81.6 kg Kwan Estrella MD 03/02/2025 11:18 AM Signed [facility] V[facility] SECTION OF CARDIAC PACING and ELECTROPHYSIOLOGY OUTPATIENT VISIT DATE March 02, 2025 OUTPATIENT VISIT TYPE NEW PRIMARY CARE PHYSICIAN: Vincent Espinosa [address] [place] [address] REFERRING PHYSICIAN: Harjinder Jones [address] [facility], [address] [facility] [address] chief complaint on file. HISTORY OF PRESENT [...] currently a resident at [facility]. Had a recent UTI in 10/2024, still [...] fibrillation ECG 11/29/23 - SR 77 bpm NV 210 QRS 102 QT/c 364 411 PVC [...] rare (<1.0%). Isolated VEs were rare (<1.0%, 87639), VE Couplets were rare (<1.0%, 63), and [...] No Fa (more content not included)... Normal [facility] ECG B/O W INTERP (MED OFFICE )on 03-02-2025 .Sinus rhythm 68 bpm NV 264ms First degree AVB QRS 96ms QT/c 398/423ms nl Qrs morphology and early repol change in 2.3.aVF [facility] Absolute lymphocyte countOrd ered By: Buzz Rainey on 03-01-2025 Lymphocytes Auto (Unsp spec) [#/Vol] 0.88 10*3/uL 0.83-4.51 [facility] Absolute neutrophil countOrd ered By: Buzz Rainey on 03-01-2025 Neutrophils (Bld) [#/Vol] 4.2 10*3/uL 2.0-7.7 [facility] Anion gap in Serum or Plasma Ordered By: Buzz Rainey on 03-01-2025 Anion gap [Moles/Vol] 13 mmol/L 5-15 [facility] Automated lymphocyte count a s percentage of total leukocytesOrdered By: Buzz Rainey on 03-01-2025 Lymphocytes/100 WBC Auto (Unsp spec) 14.9 % Low 19-41 [facility] BUN/creatinine ratioOrdered By: Buzz Rainey on 03-01-2025 Urea nitrogen/Creatinine [Mass ratio] 37.1 mg/mg High 10-20 [facility] Basophil percentageOrdered B y: Buzz Rainey on 03-01-2025 Basophils/100 WBC (Bld) 0.7 % 0-[address] [facility] Carbon dioxide, total [Moles /volume] in Central venous bloodOrdered By: Buzz Rainey on 03-01-2025 CO2 [Moles/Vol] 21.5 mmol/L 21.0-32.0 [facility] Chloride assayOrdered By: Alexandra Rainey on 03-01-2025 Chloride [Moles/Vol] 104 mmol/L 98-108 [facility] Eosinophil percentageOrdered By: tamanna Rainey on 03-01-2025 Eosinophils/100 WBC (Bld) 3.7 % 0-5 [facility] Erythrocyte distribution wid th ratioOrdered By: yumikofairfieldestrella Rainey on 03-01-2025 Erythrocyte distribution width (RBC) [Ratio] 11.9 % 11.6-14.6 [facility] Erythrocyte distribution wid th standard deviationOrdered By: yumikofairfieldestrella Rainey on 03-01-2025 Erythrocyte distribution width (RBC) [Ratio] 43.6 fl 35.1-43.9 [facility] Glomerular filtration rate ( GFR) estimation/1.73 sq m using serum, plasma, or whole bOrdered By: Buzz Rainey on 03-01-2025 GFR/1.73 sq M.predicted among non-blacks MDRD (S/P/Bld) [Vol rate/Area] 61 mL/min/{1.73_m2} >60 [facility] Comment on above: mL/min/1.73m2 CKD-EP I Creatinine Equation (2020) Hematocrit Auto (Bld) [Volum e fraction]Ordered By: Buzz Rainey on 03-01-2025 Hematocrit (Bld) [Volume fraction] 40.7 % 40-54 [facility] Hemoglobin measurementOrdere d By: Buzz Rainey on 03-01-2025 Hemoglobin (Bld) [Mass/Vol] 13.9 g/dL 13.0-16.5 [facility] Immature granulocytes/100 WB C Auto (Bld)Ordered By: Buzz Rainey on 03-01-2025 Immature granulocytes/100 WBC (Bld) 0.200 % 0.0-0.9 [facility] Comment on above: IG% - Immature Granu locytes (promyelocytes, myelocytes and metamyelocytes) > 1% indicates that a LEFT SHIFT is Present. MCV (mean corpuscular volume ) determinationOrdered By: Buzz Rainey on 03-01-2025 MCV (RBC) [Entitic vol] 99.5 fL High 80-[address] [facility] Mean corpuscular hemoglobin (MCH) determinationOrdered By: Buzz Rainey on 03-01-2025 MCH (RBC) [Entitic mass] 34.0 pg High 27.0-32.0 [facility] Mean corpuscular hemoglobin concentration (MCHC) determinationOrdered By: Buzz Rainey on 03-01-2025 MCHC (RBC) [Mass/Vol] 34.2 g/dL 32-36 [facility] Mean platelet volume determi nationOrdered By: Buzz Rainey on 03-01-2025 Platelet mean volume (Bld) [Entitic vol] 10.4 fL 6.2-12.0 [facility] Monocyte percentageOrdered B y: Buzz Rainey on 03-01-2025 Monocytes/100 WBC (Bld) 8.5 % 0-[address] [facility] Neutrophil percentageOrdered By: Buzz Rainey on 03-01-2025 Neutrophils/100 WBC (Bld) 72.0 % High 47-70 [facility] Nucleated red blood cell per centageOrdered By: Buzz Rainey on 03-01-2025 Nucleated RBC/100 WBC (Bld) [Ratio] 0 % 0-5 [facility] Platelet countOrdered By: Alexandra Rainey on 03-01-2025 Platelets (Bld) [#/Vol] 213 10*3/uL 150-450 [facility] Potassium measurement (mass/ volume)Ordered By: Buzz Rainey on 03-01-2025 Potassium (Unsp spec) [Mass/Vol] 4.5 mmol/L 3.3-5.1 [facility] RBC Auto (Bld) [#/Vol]Ordere d By: Buzz Rainey on 03-01-2025 RBC (Bld) [#/Vol] 4.09 10*6/uL Low 4.6-6.2 [facility] Serum creatinine measurement (mass/volume)Ordered By: Buzz Rainey on 03-01-2025 Creatinine [Mass/Vol] 1.19 mg/dL 0.70-1.20 [facility] Serum glucose measurement (m ass/volume)Ordered By: Buzz Rainey on 03-01-2025 Glucose [Mass/Vol] 152 mg/dL High 70-99 [facility] Serum or plasma calcium jesenia urement (mass/volume)Ordered By: Buzz Rainey on 03-01-2025 Calcium [Mass/Vol] 9.5 mg/dL 7.6-11.0 [facility] Serum or plasma urea nitroge n measurement (mass/volume)Ordered By: Buzz Rainey on 03-01-2025 Urea nitrogen [Mass/Vol] 44 mg/dL High 4-19 [facility] Sodium levelOrdered By: Otilia Rainey on 03-01-2025 Sodium [Moles/Vol] 138 mmol/L 133-145 [facility] White blood cell (WBC) count Ordered By: Buzz Rainey on 03-01-2025 WBC (Bld) [#/Vol] 5.9 10*3/uL 4.4-11.0 [facility] Bilirubin Test strip Ql (U)O rdered By: Buzz Rainey on 02-28-2025 Bilirubin Ql (U) Negative Negative [facility] Ketones Test strip Ql (U)Ord ered By: Buzz Rainey on 02-28-2025 Ketones Ql (U) Negative Negative [facility] Nitrite Test strip Ql (U)Ord ered By: Buzz Rainey on 02-28-2025 Nitrite Ql (U) Negative Negative [facility] Protein Test strip Ql (U)Ord ered By: Buzz Rainey on 02-28-2025 Protein Ql (U) 15 mg/dl High Negative [facility] Urine clarityOrdered By: Franklin Rainey on 02-28-2025 Clarity (U) Clear Clear [facility] Urine color determinationOrd ered By: Buzz Rainey on 02-28-2025 Color (U) Straw Yellow [facility] Urine cultureOrdered By: Franklin Rainey on 02-28-2025 Bacteria identified Cx Nom (U) Positive Abnormal [facility] Urine glucose detectionOrder ed By: Buzz Rainey on 02-28-2025 Glucose Ql (U) 1000 mg/dl High Normal [facility] Urine leukocyte esterase det ection by dipstickOrdered By: Buzz Rainey on 02-28-2025 Leukocyte esterase Test strip Ql (U) 25 /ul High Negative [facility] Urine pHOrdered By: Mallorie Rainey on 02-28-2025 pH (U) 6.0 [pH] 5.0 - 8.0 [facility] Urine specific gravity measu rementOrdered By: Buzz Rainey on 02-28-2025 Specific gravity (U) [Rel density] 1.020 1.002-1.030 [facility] Urine urobilinogen measureme ntOrdered By: Buzz Rainey on 02-28-2025 Urobilinogen Ql (U) Normal mg/dl Normal [facility] Endocrinology Visit Reporton 02-27-2025 Endocrinology Visit Report [facility] [address] [place] [address] OFFICE VISIT Date of Service: 02/27/25 MR#: [id number] Acct: [id number] Name: FLEX KLINE Rep #: [id number] : 1940 Provider: Arina Renee Age/Sex: 84/M Location: [facility] [place] Status: Signed Intake Vital Signs 11/30/24 08:36 [...] to secondary diabetes 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 Normal [facility] Absolute lymphocyte countOrd ered By: Buzz Rainey on 01-31-2025 Lymphocytes Auto (Unsp spec) [#/Vol] 0.83 10*3/uL 0.83-4.51 [facility] Absolute neutrophil countOrd ered By: Buzz Rainey on 01-31-2025 Neutrophils (Bld) [#/Vol] 3.3 10*3/uL 2.0-7.7 [facility] Anion gap in Serum or Plasma Ordered By: Buzz Rainey on 01-31-2025 Anion gap [Moles/Vol] 14 mmol/L 5-15 [facility] Automated lymphocyte count a s percentage of total leukocytesOrdered By: Buzz Rainey on 01-31-2025 Lymphocytes/100 WBC Auto (Unsp spec) 16.0 % Low 19-41 [facility] BUN/creatinine ratioOrdered By: Buzz Rainey on 01-31-2025 Urea nitrogen/Creatinine [Mass ratio] 28.0 mg/mg High 10-20 [facility] Basophil percentageOrdered B y: Buzz Rainey on 01-31-2025 Basophils/100 WBC (Bld) 0.4 % 0-[address] [facility] Bilirubin directOrdered By: Buzz Rainey on 01-31-2025 Bilirubin.direct [Mass/Vol] 0.22 mg/dL 0.00-0.30 [facility] Bilirubin, totalOrdered By: Buzz Rainey on 01-31-2025 Bilirubin [Mass/Vol] 0.47 mg/dL 0.00-1.30 [facility] Carbon dioxide, total [Moles /volume] in Central venous bloodOrdered By: Buzz Rainey on 01-31-2025 CO2 [Moles/Vol] 21.6 mmol/L 21.0-32.0 [facility] Chloride assayOrdered By: Alexandra Rainey on 01-31-2025 Chloride [Moles/Vol] 101 mmol/L 98-108 [facility] Eosinophil percentageOrdered By: Buzz Rainey on 01-31-2025 Eosinophils/100 WBC (Bld) 6.2 % High 0-5 [facility] Erythrocyte distribution wid th (RBC) [Ratio]Ordered By: Buzz Rainey on 01-31-2025 Erythrocyte distribution width (RBC) [Entitic vol] 45.0 fL High 35.1-43.9 [facility] Erythrocyte distribution wid th ratioOrdered By: Buzz Rainey on 01-31-2025 Erythrocyte distribution width (RBC) [Ratio] 12.1 % 11.6-14.6 [facility] Erythrocyte distribution wid th standard deviationOrdered By: Buzz Rainey on 01-31-2025 Erythrocyte distribution width (RBC) [Ratio] 45.0 fl High 35.1-43.9 [facility] GFR/1.73 sq M.predicted [place] g non-blacks MDRD (S/P/Bld) [Vol rate/Area]Ordered By: Buzz Rainey on 01-31-2025 Estimated GFR (MDRD) Non-Af Amer 49 Low >60 [facility] Comment on above: mL/min/1.73m2 CKD-EP I Creatinine Equation (2020) Glomerular filtration rate ( GFR) estimation/1.73 sq m using serum, plasma, or whole bOrdered By: Buzz Rainey on 01-31-2025 GFR/1.73 sq M.predicted among non-blacks MDRD (S/P/Bld) [Vol rate/Area] 49 mL/min/{1.73_m2} Low >60 [facility] Comment on above: mL/min/1.73m2 CKD-EP I Creatinine Equation (2020) Hematocrit Auto (Bld) [Volum e fraction]Ordered By: Buzz Rainey on 01-31-2025 Hematocrit (Bld) [Volume fraction] 39.9 % Low 40-54 [facility] Hemoglobin A1c percentageOrd ered By: Buzz Rainey on 01-31-2025 HbA1c (Bld) [Mass fraction] 7.9 % >5.7 [facility] Hemoglobin measurementOrdere d By: Buzz Rainey on 01-31-2025 Hemoglobin (Bld) [Mass/Vol] 13.8 g/dL 13.0-16.5 [facility] Immature granulocytes/100 WB C Auto (Bld)Ordered By: Buzz Rainey on 01-31-2025 Immature granulocytes/100 WBC (Bld) 0.200 % 0.0-0.9 [facility] Comment on above: IG% - Immature Granu locytes (promyelocytes, myelocytes and metamyelocytes) > 1% indicates that a LEFT SHIFT is Present. Laboratory - Chemistry and C hemistry - challengeOrdered By: Buzz Rainey on 01-31-2025 AST [Catalytic activity/Vol] 32 U/L <38 [facility] Lymphocytes Auto (Unsp spec) [#/Vol]Ordered By: Buzz Rainey on 01-31-2025 Lymphocytes (Bld) [#/Vol] 0.83 10*3/uL 0.83-4.51 [facility] Lymphocytes/100 WBC Auto (Un sp spec)Ordered By: Buzz Rainey on 01-31-2025 Lymphocytes/100 WBC (Bld) 16.0 % Low 19-41 [facility] MCV (mean corpuscular volume ) determinationOrdered By: Buzz Rainey on 01-31-2025 MCV (RBC) [Entitic vol] 99.8 fL High 80-[address] [facility] Magnesium (Unsp spec) [Mass/ Vol]Ordered By: Buzz Rainey on 01-31-2025 Magnesium [Mass/Vol] 2.2 mg/dL 1.5-2.2 [facility] Magnesium measurement (mass/ volume)Ordered By: Buzz Rainey on 01-31-2025 Magnesium (Unsp spec) [Mass/Vol] 2.2 mg/dL 1.5-2.2 [facility] Mean corpuscular hemoglobin (MCH) determinationOrdered By: Buzz Rainey on 01-31-2025 MCH (RBC) [Entitic mass] 34.5 pg High 27.0-32.0 [facility] Mean corpuscular hemoglobin concentration (MCHC) determinationOrdered By: Buzz Rainey on 01-31-2025 MCHC (RBC) [Mass/Vol] 34.6 g/dL 32-36 [facility] Mean platelet volume determi nationOrdered By: Buzz Brainmklana on 01-31-2025 Platelet mean volume (Bld) [Entitic vol] 10.6 fL 6.2-12.0 [facility] Monocyte percentageOrdered B y: Eftamanna Monreallana on 01-31-2025 Monocytes/100 WBC (Bld) 12.7 % High 0-[address] [facility] Neutrophil percentageOrdered By: Eftamanna Brainmke on 01-31-2025 Neutrophils/100 WBC (Bld) 64.5 % 47-70 [facility] Nucleated red blood cell per centageOrdered By: Alexandrayumikoarthur Brainmklana on 01-31-2025 Nucleated RBC/100 WBC (Bld) [Ratio] 0 % 0-5 [facility] Platelet countOrdered By: Alexandra tamanna Brainmklana on 01-31-2025 Platelets (Bld) [#/Vol] 218 10*3/uL 150-450 [facility] Potassium (Unsp spec) [Mass/ Vol]Ordered By: Otiliaarthur Brainmklana on 01-31-2025 Potassium [Moles/Vol] 5.3 mmol/L High 3.3-5.1 [facility] Potassium measurement (mass/ volume)Ordered By: Buzz De La Pazmklana on 01-31-2025 Potassium (Unsp spec) [Mass/Vol] 5.3 mmol/L High 3.3-5.1 [facility] RBC Auto (Bld) [#/Vol]Ordere d By: Alexandratamanna Brainmklana on 01-31-2025 RBC (Bld) [#/Vol] 4.00 10*6/uL Low 4.6-6.2 [facility] Serum creatinine measurement (mass/volume)Ordered By: Otiliahueyestrella De La Pazmklana on 01-31-2025 Creatinine [Mass/Vol] 1.43 mg/dL High 0.70-1.20 [facility] Serum globulin measurementOr dered By: Buzz Rainey on 01-31-2025 Globulin (S) [Mass/Vol] 2.8 g/dL 2.2-4.[address] [facility] Serum glucose measurement (m ass/volume)Ordered By: Buzz Rainey on 01-31-2025 Glucose [Mass/Vol] 265 mg/dL High 70-99 [facility] Serum or plasma alanine nix otransferase (ALT) measurementOrdered By: Buzz Rainey on 01-31-2025 ALT [Catalytic activity/Vol] 35 U/L <47 [facility] Serum or plasma albumin jesenia urement (mass/volume)Ordered By: uBzz Rainey on 01-31-2025 Albumin [Mass/Vol] 4.3 g/dL 3.4-4.8 [facility] Serum or plasma alkaline radha sphatase measurementOrdered By: Buzz Rainey on 01-31-2025 ALP [Catalytic activity/Vol] 83 U/L 40-129 [facility] Serum or plasma calcium jesenia urement (mass/volume)Ordered By: Buzz Rainey on 01-31-2025 Calcium [Mass/Vol] 9.3 mg/dL 7.6-11.0 [facility] Serum or plasma urea nitroge n measurement (mass/volume)Ordered By: Buzz Rainey on 01-31-2025 Urea nitrogen [Mass/Vol] 40 mg/dL High 4-19 [facility] Sodium levelOrdered By: Otilia Rainey on 01-31-2025 Sodium [Moles/Vol] 137 mmol/L 133-145 [facility] Total proteinOrdered By: Franklin Rainey on 01-31-2025 Protein [Mass/Vol] 7.1 g/dL 5.9-8.4 [facility] Vitamin D, 25-hydroxyOrdered By: Buzz Rainey on 01-31-2025 Vitamin D 25-Hydroxy 38.8 ng/mL 30-100 [facility] Comment on above: Vitamin D StatusDefi ciency: <20 ng/mL (50nmol/L)Insufficiency: 20-30 ng/mL (50-75 nmol/L)Sufficiency: 30-100 ng/mL (75-250 nmol/L)Toxicity: >100 ng/mL (>250 nmol/L) White blood cell (WBC) count Ordered By: Buzz Rainey on 01-31-2025 WBC (Bld) [#/Vol] 5.2 10*3/uL 4.4-11.0 [facility] CBC panel Auto (Bld)on 01-22 Erythrocyte distribution width (RBC) [Ratio] 12.4 % 11.5 - 15.0 % [facility] Hematocrit (Bld) [Volume fraction] 37.7 % Low 39.0 - 51.0 % [facility] Hemoglobin (Bld) [Mass/Vol] 12.8 g/dL Low 13.0 - 17.0 g/dL [facility] Interpretation and review of laboratory results Abnormal [facility] MCH (RBC) [Entitic mass] 33.3 pg 26.0 - 34.0 pg [facility] MCHC (RBC) [Mass/Vol] 34 g/dL 30.5 - 36.0 g/dL [facility] MCV (RBC) [Entitic vol] 98.2 fL 80.0 - 100.0 fL [facility] Nucleated RBC (Bld) [#/Vol] NINF [facility] Platelet mean volume (Bld) [Entitic vol] 9.4 fL 9.0 - 12.7 fL [facility] Platelets (Bld) [#/Vol] 216 10*3/uL [facility] RBC (Bld) [#/Vol] 3.84 10*6/uL Low 4.20 - 6.0 0 m/uL [facility] WBC (Bld) [#/Vol] 5.09 10*3/uL [facility] Erythrocyte distribution width (RBC) [Ratio] 12.4 % Normal 11.5-15.0 [facility] Comment on above: Order Comment: Krystyna funk Type: BLOOD SPECIMEN Ordering Facility: [facility] Address: [address] [place] [address] Performed By: #### 5 8410-2 #### [facility] CLIA [id number] [address] [place], [place] [id number] [place] Hematocrit (Bld) [Volume fraction] 37.7 % Low 39.0-51.0 [facility] Comment on above: Order Comment: Krystyna funk Type: BLOOD SPECIMEN Ordering Facility: [facility] Address: [address] [place] [address] Performed By: #### 5 8410-2 #### [facility] CLIA [id number] [address] [place] [address] [place] [facility] Hemoglobin (Bld) [Mass/Vol] 12.8 g/dL Low 13.0-17.0 [facility] Comment on above: Order Comment: Speci men Type: BLOOD SPECIMEN Ordering Facility: [facility] Address: [address] [place] [address] Performed By: #### 5 8410-2 #### [id number] [address] [place] [address] [place] MCH (RBC) [Entitic mass] 33.3 pg Normal 26.0-34.0 [facility] Comment on above: Order Comment: Speci men Type: BLOOD SPECIMEN Ordering Facility: [facility] Address: [address] [place] [address] Performed By: #### 5 8410-2 #### [facility] [id number] [address] [place] [address] [place] MCHC (RBC) [Mass/Vol] 34.0 g/dL Normal 30.5-36.0 [facility] Comment on above: Order Comment: Speci men Type: BLOOD SPECIMEN Ordering Facility: [facility] Address: [address] [place] [address] Performed By: #### 5 8410-2 #### [facility] [id number] [address] [place] [address] [place] MCV (RBC) [Entitic vol] 98.2 fL Normal 80.0-100.0 [facility] Comment on above: Order Comment: Speci men Type: BLOOD SPECIMEN Ordering Facility: [facility] Address: [address] [place] [address] Performed By: #### 5 8410-2 #### [facility] CLIA [id number] [address] [place] [address] [place] Nucleated RBC (Bld) [#/Vol] 10*3/uL Normal <0.01 [facility] Comment on above: Order Comment: Speci men Type: BLOOD SPECIMEN Ordering Facility: [facility] Address: [address] [place] [address] Performed By: #### 5 8410-2 #### [facility] CLIA [id number] [address] [place] [address] [place] Platelet mean volume (Bld) [Entitic vol] 9.4 fL Normal 9.0-12.7 [facility] Comment on above: Order Comment: Speci men Type: BLOOD SPECIMEN Ordering Facility: [facility] Address: [address] [place] [address] Performed By: #### 5 8410-2 #### [facility] CLIA [id number] [address] [place] [address] [place] Platelets (Bld) [#/Vol] 216 10*3/uL Normal 150-400 [facility] Comment on above: Order Comment: Speci men Type: BLOOD SPECIMEN Ordering Facility: [facility] Address: [address] [place] [address] Performed By: #### 5 8410-2 #### [facility] CLIA [id number] [address] [place] [address] [place] RBC (Bld) [#/Vol] 3.84 10*6/uL Low 4.20-6.00 [facility] Comment on above: Order Comment: Speci men Type: BLOOD SPECIMEN Ordering Facility: [facility] Address: [address] [place] [address] Performed By: #### 5 8410-2 #### [facility] CLIA [id number] [address] [place] [address] [place] WBC (Bld) [#/Vol] 5.09 10*3/uL Normal 3.70-11.00 [facility] Comment on above: Order Comment: Speci men Type: BLOOD SPECIMEN Ordering Facility: [facility] Address: [address] [place] [id number] Performed By: #### 5 8410-2 #### [facility] CLIA [id number] [address] [place] [address] CNOVon 01-22-2025 CNOV Office Visit (CARDWS ) FLEX KLINE ([id number]) 1940 M Date Time Provider Department 01/22/25 1:40 PM HARJINDER JONES During your visit today, we recorded the following information about you: Pulse Respiration Blood pressure Weight 91/minute 14/minute 156/70 79.8 kg Height 1.765 m Harjinder Jones MD 01/22/2025 2:39 PM Signed Harjinder Jones MD Interventional Cardiology [address] [place] [address] [phone] Chief Complaint Patient presents with: Follow Up: [...] central nervous system(341.8) Peripheral vascular disease, unspecified ([facility]) Type II or unspecified type diabetes mellitus [...] Take one(1) (more content not included)... Normal [facility] Comprehensive metabolic 2000 panelOrdered By: Jasmina Young on 01-22-2025 Albumin [Mass/Vol] 4.1 g/dL 3.9 - 4.9 g/dL [facility] ALP [Catalytic activity/Vol] 76 U/L 38 - 113 U/L [facility] ALT [Catalytic activity/Vol] 20 U/L 10 - 54 U/L [facility] Anion gap [Moles/Vol] 9 mmol/L 8 - 15 mmol/L [facility] AST [Catalytic activity/Vol] 19 U/L 14 - 40 U/L [facility] Bilirubin [Mass/Vol] 0.6 mg/dL 0.2 - 1 .3 mg/dL [facility] Calcium [Mass/Vol] 9.3 mg/dL 8.5 - 10. 2 mg/dL [facility] Chloride [Moles/Vol] 103 mmol/L 98 - 10 7 mmol/L [facility] CO2 [Moles/Vol] 27 mmol/L 22 - 30 mmol/L [facility] Creatinine [Mass/Vol] 1.32 mg/dL High 0.73 - 1.22 mg/dL [facility] GFR/1.73 sq M.predicted among non-blacks MDRD (S/P/Bld) [Vol rate/Area] 54 mL/min/{1.73_m2} Low - PINF [facility] Comment on above: Estimated Glomerular Filtration Rate [...] 171 mg/dL High 74 - 99 mg/dL [facility] Comment on above: The [place] Diab[employer] Association (ADA) provides guidance for [...] Standards of Medical Care in Diabetes 2016, [place] [employer] Association. Diabetes Care. 2016.39(Suppl 1). Interpretation and review of laboratory results Abnormal [facility] Potassium [Moles/Vol] 5.1 mmol/L 3.7 - 5.1 mmol/L [facility] Protein [Mass/Vol] 6.7 g/dL 6.3 - 8.0 g/dL [facility] Sodium [Moles/Vol] 139 mmol/L 136 - 144 mmol/L [facility] Urea nitrogen [Mass/Vol] 30 mg/dL High 9 - 24 mg/dL [facility] Comprehensive metabolic 2000 panelon 01-22-2025 Albumin [Mass/Vol] 4.1 g/dL Normal 3.9-4.9 [facility] Comment on above: Order Comment: Krystyna funk Type: BLOOD SPECIMEN Ordering Facility: [facility] Address: [address] [place] [address] [place] [id number] Performed By: #### 2 4323-8 #### [facility] [id number] [address] [place] [address] [place] ALP [Catalytic activity/Vol] 76 U/L Normal 38-113 [facility] Comment on above: Order Comment: Speci men Type: BLOOD SPECIMEN Ordering Facility: [facility] Address: [address] [place] [address] Performed By: #### 2 4323-8 #### [facility] CLIA [id number] [address] [place] [address] [place] ALT [Catalytic activity/Vol] 20 U/L Normal 10-54 [facility] Comment on above: Order Comment: Speci men Type: BLOOD SPECIMEN Ordering Facility: [facility] Address: [address] [place] [address] Performed By: #### 2 4323-8 #### [facility] CLIA [id number] [address] [place] [address] [place] Anion gap [Moles/Vol] 9 mmol/L Normal 8-15 [facility] Comment on above: Order Comment: Speci men Type: BLOOD SPECIMEN Ordering Facility: [facility] Address: [address] [place] [address] Performed By: #### 2 4323-8 #### [facility] CLIA [id number] [address] [place] [address] [place] AST [Catalytic activity/Vol] 19 U/L Normal 14-40 [facility] Comment on above: Order Comment: Speci men Type: BLOOD SPECIMEN Ordering Facility: [facility] Address: [address] [place] [address] Performed By: #### 2 4323-8 #### [facility] CLIA [id number] [address] [place] [address] [place] Bilirubin [Mass/Vol] 0.6 mg/dL Normal 0.2-1.3 [facility] Comment on above: Order Comment: Speci men Type: BLOOD SPECIMEN Ordering Facility: [facility] Address: [address] [place] [address] Performed By: #### 2 4323-8 #### [facility] CLIA [id number] [address] [place] [address] [place] Calcium [Mass/Vol] 9.3 mg/dL Normal 8.5-10.2 [facility] Comment on above: Order Comment: Speci men Type: BLOOD SPECIMEN Ordering Facility: [facility] Address: [address] [place] [address] Performed By: #### 2 4323-8 #### [facility] CLIA [id number] [address] [place] [address] [place] Chloride [Moles/Vol] 103 mmol/L Normal 98-107 [facility] Comment on above: Order Comment: Speci men Type: BLOOD SPECIMEN Ordering Facility: [facility] Address: [address] [place] [id number] Performed By: #### 2 4323-8 #### [facility] CLIA [id number] [address] [place] [address] [place] CO2 [Moles/Vol] 27 mmol/L Normal 22-30 [facility] Comment on above: Order Comment: Speci men Type: BLOOD SPECIMEN Ordering Facility: [facility] Address: [address] [place] [address] Performed By: #### 2 4323-8 #### [facility] CLIA [id number] [address] [place] [address] [place] Creatinine [Mass/Vol] 1.32 mg/dL High 0.73-1.22 [facility] Comment on above: Order Comment: Speci men Type: BLOOD SPECIMEN Ordering Facility: [facility] Address: [address] [place] [address] Performed By: #### 2 4323-8 #### [facility] CLIA [id number] [address] [place] [address] [place] Creatinine and Glomerular filtration rate.predicted panel (S/P/Bld) 54 mL/min/1.73m??? Low >=60 [facility] Comment on above: Order Comment: Krystyna funk Type: BLOOD SPECIMEN Ordering Facility: [facility] Address: [address] [place] [address] Result Comment: Beatrice mated Glomerular Filtration Rate [...] GFR. Performed By: #### 2 4323-8 #### [facility] CLIA [id number] [address] [place] [address] [place] Glucose [Mass/Vol] 171 mg/dL High 74-99 [facility] Comment on above: Order Comment: Krystyna funk Type: BLOOD SPECIMEN Ordering Facility: [facility] Address: [address] [place] [address] Result Comment: The [place] Diabetes Association (ADA) provides guidance for cutoff [...] Standards of Medical Care in Diabetes 2016, [place] Diabetes Association. Diabetes Care. 2016.39(Suppl 1). Performed By: #### 2 4323-8 #### [facility] CLIA [id number] [address] [place] [address] [place] Potassium [Moles/Vol] 5.1 mmol/L Normal 3.7-5.1 [facility] Comment on above: Order Comment: Speci men Type: BLOOD SPECIMEN Ordering Facility: [facility] Address: [address] [place] [address] Performed By: #### 2 4323-8 #### [facility] CLIA [id number] [address] [place] [address] [place] Protein [Mass/Vol] 6.7 g/dL Normal 6.3-8.0 [facility] Comment on above: Order Comment: Speci men Type: BLOOD SPECIMEN Ordering Facility: [facility] Address: [address] [place] [address] Performed By: #### 2 4323-8 #### [facility] CLIA [id number] [address] [place] [address] [place] Sodium [Moles/Vol] 139 mmol/L Normal 136-144 [facility] Comment on above: Order Comment: Speci men Type: BLOOD SPECIMEN Ordering Facility: [facility] Address: [address] [place] [address] Performed By: #### 2 4323-8 #### [facility] [id number] [address] [place] [address] [place] Urea nitrogen [Mass/Vol] 30 mg/dL High 9-24 [facility] Comment on above: Order Comment: Speci men Type: BLOOD SPECIMEN Ordering Facility: [facility] Address: [address] [place], [place] [address] Performed By: #### 2 4323-8 #### [facility] CLIA [id number] [address] [place] [address] [place] [facility] Natriuretic peptide.B prohormone N-Terminal [Mass/Vol] 437 pg/mL Normal <450 [facility] Comment on above: Order Comment: Speci men Type: BLOOD SPECIMEN Ordering Facility: [facility] Address: [address] [place] [id number] Performed By: #### 3 3762-6, 3016-3 #### [facility] CLIA [id number] [address] [place] TSH SerPl-aCncon 01-22-2025 TSH Qn 5.250 m[IU]/L High 0.270-4.200 [facility] Comment on above: Order Comment: Speci men Type: BLOOD SPECIMEN Ordering Facility: [facility] Address: [address] [place] [address] Performed By: #### 3 3762-6, 3016-3 #### [facility] CLIA [id number] [address] OF [facility] Absolute lymphocyte countOrd ered By: Buzz Rainey on 01-04-2025 Lymphocytes Auto (Unsp spec) [#/Vol] 0.86 10*3/uL 0.83-4.51 [facility] Absolute neutrophil countOrd ered By: Buzz Rainey on 01-04-2025 Neutrophils (Bld) [#/Vol] 2.9 10*3/uL 2.0-7.7 [facility] Automated lymphocyte count a s percentage of total leukocytesOrdered By: Buzz Rainey on 01-04-2025 Lymphocytes/100 WBC Auto (Unsp spec) 17.8 % Low 19-41 [facility] Basophil percentageOrdered B y: Buzz Rainey on 01-04-2025 Basophils/100 WBC (Bld) 0.6 % 0-[address] [facility] Blood urea nitrogen (BUN)/cr eatinine ratioOrdered By: Buzz Rainey on 01-04-2025 Urea nitrogen/Creatinine [Mass ratio] 19.2 mg/mg 10-20 [facility] Carbon dioxide measurementOr dered By: Buzz Rainey on 01-04-2025 CO2 [Moles/Vol] 30.0 mmol/L 21.0-32.0 [facility] Chloride measurementOrdered By: Buzz Rainey on 01-04-2025 Chloride [Moles/Vol] 107 mmol/L 98-107 [facility] Eosinophil percentageOrdered By: Buzz Rainey on 01-04-2025 Eosinophils/100 WBC (Bld) 7.7 % High 0-5 [facility] Erythrocyte distribution wid th (RBC) [Ratio]Ordered By: Buzz Rainey on 01-04-2025 Erythrocyte distribution width (RBC) [Entitic vol] 46.5 fL High 35.1-43.9 [facility] Erythrocyte distribution wid th ratioOrdered By: Buzz Rainey on 01-04-2025 Erythrocyte distribution width (RBC) [Ratio] 12.4 % 11.6-14.6 [facility] Erythrocyte distribution wid th standard deviationOrdered By: Buzz Rainey on 01-04-2025 Erythrocyte distribution width (RBC) [Ratio] 46.5 fl High 35.1-43.9 [facility] Estimated glomerular filtrat ion rate (GFR) AmericanOrdered By: Buzz Rainey on 01-04-2025 Estimated GFR (MDRD) Amer 57 mL/min Low >60 [facility] Comment on above: GFR Calc Glomerular filtration rate ( GFR) estimationOrdered By: Buzz Rainey on 01-04-2025 Estimated GFR (MDRD) Non-Af Amer 47 mL/min Low >60 [facility] Comment on above: Non- GFR Calc GFR/1.73 sq M.predicted among non-blacks MDRD (S/P/Bld) [Vol rate/Area] 47 mL/min/{1.73_m2} Low >60 [facility] Comment on above: Non- GFR Calc Glucose measurementOrdered B y: Buzz Rainey on 01-04-2025 Glucose [Mass/Vol] 225 mg/dL High 74-106 [facility] Comment on above: Glucose result great er than or equal to 200 mg/dLsuggests DIABETES MELLITUS per A.D.A. criteria. Hematocrit Auto (Bld) [Volum e fraction]Ordered By: Buzz Rainey on 01-04-2025 Hematocrit (Bld) [Volume fraction] 39.9 % Low 40-54 [facility] Hemoglobin measurementOrdere d By: Buzz Rainey on 01-04-2025 Hemoglobin (Bld) [Mass/Vol] 13.1 g/dL 13.0-16.5 [facility] Immature granulocytes/100 WB C Auto (Bld)Ordered By: Buzz Rainey on 01-04-2025 Immature granulocytes/100 WBC (Bld) 0.200 % 0.0-0.9 [facility] Comment on above: IG% - Immature Granu locytes (promyelocytes, myelocytes and metamyelocytes) > 1% indicates that a LEFT SHIFT is Present. Lymphocytes Auto (Unsp spec) [#/Vol]Ordered By: tamanna Rainey on 01-04-2025 Lymphocytes (Bld) [#/Vol] 0.86 10*3/uL 0.83-4.51 [facility] Lymphocytes/100 WBC Auto (Un sp spec)Ordered By: Buzz Rainey on 01-04-2025 Lymphocytes/100 WBC (Bld) 17.8 % Low 19-41 [facility] MCV (mean corpuscular volume ) determinationOrdered By: Buzz Rainey on 01-04-2025 MCV (RBC) [Entitic vol] 101.0 fL High 80-[address] [facility] Mean corpuscular hemoglobin (MCH) determinationOrdered By: Buzz Rainey on 01-04-2025 MCH (RBC) [Entitic mass] 33.2 pg High 27.0-32.0 [facility] Mean corpuscular hemoglobin concentration (MCHC) determinationOrdered By: Buzz Rainey on 01-04-2025 MCHC (RBC) [Mass/Vol] 32.8 g/dL 32-36 [facility] Mean platelet volume determi nationOrdered By: tamanna Rainey on 01-04-2025 Platelet mean volume (Bld) [Entitic vol] 10.0 fL 6.2-12.0 [facility] Monocyte percentageOrdered B y: Buzz Rainey on 01-04-2025 Monocytes/100 WBC (Bld) 12.8 % High 0-[address] [facility] Neutrophil percentageOrdered By: Buzz Rainey on 01-04-2025 Neutrophils/100 WBC (Bld) 60.9 % 47-70 [facility] Nucleated red blood cell per centageOrdered By: Buzz Rainey on 01-04-2025 Nucleated RBC/100 WBC (Bld) [Ratio] 0 % 0-5 [facility] Platelet countOrdered By: Alexandra Rainey on 01-04-2025 Platelets (Bld) [#/Vol] 217 10*3/uL 150-450 [facility] Potassium measurementOrdered By: Buzz Rainey on 01-04-2025 Potassium [Moles/Vol] 4.5 mmol/L 3.5-5.1 [facility] Comment on above: Slight Hemolysis, Re sult may be falsely increased. RBC Auto (Bld) [#/Vol]Ordere d By: Buzz Rainey on 01-04-2025 RBC (Bld) [#/Vol] 3.95 10*6/uL Low 4.6-6.2 [facility] Serum anion gap measurementO rdered By: Buzz Rainey on 01-04-2025 Anion gap [Moles/Vol] 4 mmol/L Low 5-15 [facility] Serum or plasma calcium jesenia urement (mass/volume)Ordered By: Buzz Rainey on 01-04-2025 Calcium [Mass/Vol] 8.9 mg/dL 8.5-10.1 [facility] Serum or plasma creatinine m easurement (mass/volume)Ordered By: Buzz Rainey on 01-04-2025 Creatinine [Mass/Vol] 1.51 mg/dL High 0.70-1.30 [facility] Comment on above: The validity of the calculated GFR & GFRAA in patients over 70 years has not been determined. Clinical correlation is essential. Serum or plasma urea nitroge n measurement (mass/volume)Ordered By: Buzz Rainey on 01-04-2025 Urea nitrogen [Mass/Vol] 29 mg/dL High 7-18 [facility] Sodium levelOrdered By: Otilia Rainey on 01-04-2025 Sodium [Moles/Vol] 141 mmol/L 136-145 [facility] White blood cell (WBC) count Ordered By: Buzz Rainey on 01-04-2025 WBC (Bld) [#/Vol] 4.8 10*3/uL 4.4-11.0 [facility] Absolute lymphocyte countOrd ered By: Buzz Rainey on 12-07-2024 Lymphocytes Auto (Unsp spec) [#/Vol] 1.34 10*3/uL 0.83-4.51 [facility] Absolute neutrophil countOrd ered By: Buzz Rainey on 12-07-2024 Neutrophils (Bld) [#/Vol] 3.2 10*3/uL 2.0-7.7 [facility] Automated lymphocyte count a s percentage of total leukocytesOrdered By: Buzz Rainey on 12-07-2024 Lymphocytes/100 WBC Auto (Unsp spec) 24.8 % 19-41 [facility] Basophil percentageOrdered B y: Buzz Rainey on 12-07-2024 Basophils/100 WBC (Bld) 0.6 % 0-1 [facility] Blood urea nitrogen (BUN)/cr eatinine ratioOrdered By: Buzz Rainey on 12-07-2024 Urea nitrogen/Creatinine [Mass ratio] 18.5 mg/mg 10-20 [facility] Carbon dioxide measurementOr dered By: Buzz Rainey on 12-07-2024 CO2 [Moles/Vol] 27.0 mmol/L 21.0-32.0 [facility] Chloride measurementOrdered By: Buzz Rainey on 12-07-2024 Chloride [Moles/Vol] 106 mmol/L 98-107 [facility] Eosinophil percentageOrdered By: Buzz Rainey on 12-07-2024 Eosinophils/100 WBC (Bld) 5.5 % High 0-5 [facility] Erythrocyte distribution wid th (RBC) [Ratio]Ordered By: Buzz Rainey on 12-07-2024 Erythrocyte distribution width (RBC) [Entitic vol] 46.2 fL High 35.1-43.9 [facility] Erythrocyte distribution wid th ratioOrdered By: Buzz Rainey on 12-07-2024 Erythrocyte distribution width (RBC) [Ratio] 12.3 % 11.6-14.6 [facility] Erythrocyte distribution wid th standard deviationOrdered By: Alexandrayumikoarthur Brainmklana on 12-07-2024 Erythrocyte distribution width (RBC) [Ratio] 46.2 fl High 35.1-43.9 [facility] Estimated glomerular filtrat ion rate (GFR) AmericanOrdered By: Buzz Rainey on 12-07-2024 Estimated GFR (MDRD) Amer 59 mL/min Low >60 [facility] Comment on above: GFR Calc Glomerular filtration rate ( GFR) estimationOrdered By: Buzz Rainey on 12-07-2024 Estimated GFR (MDRD) Non-Af Amer 49 mL/min Low >60 [facility] Comment on above: Non- GFR Calc GFR/1.73 sq M.predicted among non-blacks MDRD (S/P/Bld) [Vol rate/Area] 49 mL/min/{1.73_m2} Low >60 [facility] Comment on above: Non- GFR Calc Glucose measurementOrdered B y: Buzz Rainey on 12-07-2024 Glucose [Mass/Vol] 129 mg/dL High 74-106 [facility] Comment on above: Fasting Glucose resu lt greater than or equal to 126 mg/dL suggests DIABETES MELLITUS per A.D.A. criteria. Hematocrit Auto (Bld) [Volum e fraction]Ordered By: Buzz Rainey on 12-07-2024 Hematocrit (Bld) [Volume fraction] 40.6 % 40-54 [facility] Hemoglobin measurementOrdere d By: Buzz Rainey on 12-07-2024 Hemoglobin (Bld) [Mass/Vol] 13.4 g/dL 13.0-16.5 [facility] Immature granulocytes/100 WB C Auto (Bld)Ordered By: tamanna Rainey on 12-07-2024 Immature granulocytes/100 WBC (Bld) 0.200 % 0.0-0.9 [facility] Comment on above: IG% - Immature Granu locytes (promyelocytes, myelocytes and metamyelocytes) > 1% indicates that a LEFT SHIFT is Present. Lymphocytes Auto (Unsp spec) [#/Vol]Ordered By: Buzz Rainey on 12-07-2024 Lymphocytes (Bld) [#/Vol] 1.34 10*3/uL 0.83-4.51 [facility] Lymphocytes/100 WBC Auto (Un sp spec)Ordered By: Buzz Rainey on 12-07-2024 Lymphocytes/100 WBC (Bld) 24.8 % 19-41 [facility] MCV (mean corpuscular volume ) determinationOrdered By: Buzz Rainey on 12-07-2024 MCV (RBC) [Entitic vol] 102.8 fL High 80-[address] [facility] Mean corpuscular hemoglobin (MCH) determinationOrdered By: Buzz Rainey on 12-07-2024 MCH (RBC) [Entitic mass] 33.9 pg High 27.0-32.0 [facility] Mean corpuscular hemoglobin concentration (MCHC) determinationOrdered By: Buzz Rainey on 12-07-2024 MCHC (RBC) [Mass/Vol] 33.0 g/dL 32-36 [facility] Mean platelet volume determi nationOrdered By: Buzz Rainey on 12-07-2024 Platelet mean volume (Bld) [Entitic vol] 10.0 fL 6.2-12.0 [facility] Monocyte percentageOrdered B y: Buzz Rainey on 12-07-2024 Monocytes/100 WBC (Bld) 9.4 % 0-[address] [facility] Neutrophil percentageOrdered By: Buzz Rainey on 12-07-2024 Neutrophils/100 WBC (Bld) 59.5 % 47-70 [facility] Nucleated red blood cell per centageOrdered By: Buzz Rainey on 12-07-2024 Nucleated RBC/100 WBC (Bld) [Ratio] 0 % 0-5 [facility] Platelet countOrdered By: Alexandra Rainey on 12-07-2024 Platelets (Bld) [#/Vol] 217 10*3/uL 150-450 [facility] Potassium measurementOrdered By: Buzz Rainey on 12-07-2024 Potassium [Moles/Vol] 4.8 mmol/L 3.5-5.1 [facility] RBC Auto (Bld) [#/Vol]Ordere d By: Buzz Rainey on 12-07-2024 RBC (Bld) [#/Vol] 3.95 10*6/uL Low 4.6-6.2 [facility] Serum anion gap measurementO rdered By: Buzz Rainey on 12-07-2024 Anion gap [Moles/Vol] 5 mmol/L 5-15 [facility] Serum or plasma calcium jesenia urement (mass/volume)Ordered By: Buzz Rainey on 12-07-2024 Calcium [Mass/Vol] 9.1 mg/dL 8.5-10.1 [facility] Serum or plasma creatinine m easurement (mass/volume)Ordered By: Buzz Rainey on 12-07-2024 Creatinine [Mass/Vol] 1.46 mg/dL High 0.70-1.30 [facility] Comment on above: The validity of the calculated GFR & GFRAA in patients over 70 years has not been determined. Clinical correlation is essential. Serum or plasma urea nitroge n measurement (mass/volume)Ordered By: Buzz Rainey on 12-07-2024 Urea nitrogen [Mass/Vol] 27 mg/dL High 7-18 [facility] Sodium levelOrdered By: Otilia Rainey on 12-07-2024 Sodium [Moles/Vol] 138 mmol/L 136-145 [facility] White blood cell (WBC) count Ordered By: Buzz Rainey on 12-07-2024 WBC (Bld) [#/Vol] 5.4 10*3/uL 4.4-11.0 [facility] Absolute lymphocyte countOrd ered By: Buzz Rainey on 11-30-2024 Lymphocytes Auto (Unsp spec) [#/Vol] 1.16 10*3/uL 0.83-4.51 [facility] Absolute neutrophil countOrd ered By: Buzz Rainey on 11-30-2024 Neutrophils (Bld) [#/Vol] 2.8 10*3/uL 2.0-7.7 [facility] Automated lymphocyte count a s percentage of total leukocytesOrdered By: Buzz Rainey on 11-30-2024 Lymphocytes/100 WBC Auto (Unsp spec) 23.3 % 19-41 [facility] Basophil percentageOrdered B y: Buzz Rainey on 11-30-2024 Basophils/100 WBC (Bld) 0.6 % 0-[address] [facility] Blood urea nitrogen (BUN)/cr eatinine ratioOrdered By: Buzz Rainey on 11-30-2024 Urea nitrogen/Creatinine [Mass ratio] 21.4 mg/mg High 10-20 [facility] Carbon dioxide measurementOr dered By: tamanna Rainey on 11-30-2024 CO2 [Moles/Vol] 28.0 mmol/L 21.0-32.0 [facility] Cardiology Visit Reporton Cardiology Visit Report [facility] [address] [place] [address]. [address] [place] [address] OFFICE VISIT Date of Service: 11/30/24 MR#: [id number] Acct: [id number] Name: FLEX KLINE Rep #: [id number] : 1940 Provider: Dr. 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 Normal [facility] Chloride measurementOrdered By: Buzz Rainey on 11-30-2024 Chloride [Moles/Vol] 105 mmol/L 98-107 [facility] Eosinophil percentageOrdered By: Buzz Rainey on 11-30-2024 Eosinophils/100 WBC (Bld) 6.6 % High 0-5 [facility] Erythrocyte distribution wid th (RBC) [Ratio]Ordered By: Buzz Rainey on 11-30-2024 Erythrocyte distribution width (RBC) [Entitic vol] 46.9 fL High 35.1-43.9 [facility] Erythrocyte distribution wid th ratioOrdered By: Buzz Rainey on 11-30-2024 Erythrocyte distribution width (RBC) [Ratio] 12.4 % 11.6-14.6 [facility] Erythrocyte distribution wid th standard deviationOrdered By: Buzz Rainey on 11-30-2024 Erythrocyte distribution width (RBC) [Ratio] 46.9 fl High 35.1-43.9 [facility] Estimated glomerular filtrat ion rate (GFR) AmericanOrdered By: Buzz Rainey on 11-30-2024 Estimated GFR (MDRD) Amer 62 mL/min >60 [facility] Comment on above: GFR Calc Glomerular filtration rate ( GFR) estimationOrdered By: Buzz Rainey on 11-30-2024 Estimated GFR (MDRD) Non-Af Amer 52 mL/min Low >60 [facility] Comment on above: Non- GFR Calc GFR/1.73 sq M.predicted among non-blacks MDRD (S/P/Bld) [Vol rate/Area] 52 mL/min/{1.73_m2} Low >60 [facility] Comment on above: Non- GFR Calc Glucose measurementOrdered B y: Buzz Rainey on 11-30-2024 Glucose [Mass/Vol] 119 mg/dL High 74-106 [facility] Comment on above: Fasting Glucose resu lt from 100 to 125 mg/dL suggests IMPAIRED HOMEOSTASIS per A.D.A. criteria. Hematocrit Auto (Bld) [Volum e fraction]Ordered By: Buzz Rainey on 11-30-2024 Hematocrit (Bld) [Volume fraction] 40.2 % 40-54 [facility] Hemoglobin measurementOrdere d By: Buzz Rainey on 11-30-2024 Hemoglobin (Bld) [Mass/Vol] 13.2 g/dL 13.0-16.5 [facility] Immature granulocytes/100 WB C Auto (Bld)Ordered By: Buzz Rainey on 11-30-2024 Immature granulocytes/100 WBC (Bld) 0.400 % 0.0-0.9 [facility] Comment on above: IG% - Immature Granu locytes (promyelocytes, myelocytes and metamyelocytes) > 1% indicates that a LEFT SHIFT is Present. Lymphocytes Auto (Unsp spec) [#/Vol]Ordered By: Buzz Rainey on 11-30-2024 Lymphocytes (Bld) [#/Vol] 1.16 10*3/uL 0.83-4.51 [facility] Lymphocytes/100 WBC Auto (Un sp spec)Ordered By: Buzz Rainey on 11-30-2024 Lymphocytes/100 WBC (Bld) 23.3 % 19-41 [facility] MCV (mean corpuscular volume ) determinationOrdered By: Buzz Rainey on 11-30-2024 MCV (RBC) [Entitic vol] 103.1 fL High 80-[address] [facility] Mean corpuscular hemoglobin (MCH) determinationOrdered By: Buzz Raieny on 11-30-2024 MCH (RBC) [Entitic mass] 33.8 pg High 27.0-32.0 [facility] Mean corpuscular hemoglobin concentration (MCHC) determinationOrdered By: Buzz Rainey on 11-30-2024 MCHC (RBC) [Mass/Vol] 32.8 g/dL 32-36 [facility] Mean platelet volume determi nationOrdered By: Buzz Rainey on 11-30-2024 Platelet mean volume (Bld) [Entitic vol] 10.2 fL 6.2-12.0 [facility] Monocyte percentageOrdered B y: Buzz Rainey on 11-30-2024 Monocytes/100 WBC (Bld) 11.9 % High 0-[address] [facility] Neutrophil percentageOrdered By: tamanna Rainey on 11-30-2024 Neutrophils/100 WBC (Bld) 57.2 % 47-70 [facility] Nucleated red blood cell per centageOrdered By: Buzz Rainey on 11-30-2024 Nucleated RBC/100 WBC (Bld) [Ratio] 0 % 0-5 [facility] Platelet countOrdered By: Alexandra Rainey on 11-30-2024 Platelets (Bld) [#/Vol] 212 10*3/uL 150-450 [facility] Potassium measurementOrdered By: Buzz Rainey on 11-30-2024 Potassium [Moles/Vol] 4.4 mmol/L 3.5-5.1 [facility] RBC Auto (Bld) [#/Vol]Ordere d By: Buzz Rainey on 11-30-2024 RBC (Bld) [#/Vol] 3.90 10*6/uL Low 4.6-6.2 [facility] Serum anion gap measurementO rdered By: Buzz Rainey on 11-30-2024 Anion gap [Moles/Vol] 6 mmol/L 5-15 [facility] Serum or plasma calcium jesenia urement (mass/volume)Ordered By: Buzz Rainey on 11-30-2024 Calcium [Mass/Vol] 8.8 mg/dL 8.5-10.1 [facility] Serum or plasma creatinine m easurement (mass/volume)Ordered By: Buzz Rainey on 11-30-2024 Creatinine [Mass/Vol] 1.40 mg/dL High 0.70-1.30 [facility] Comment on above: The validity of the calculated GFR & GFRAA in patients over 70 years has not been determined. Clinical correlation is essential. Serum or plasma urea nitroge n measurement (mass/volume)Ordered By: Buzz Rainey on 11-30-2024 Urea nitrogen [Mass/Vol] 30 mg/dL High 7-18 [facility] Sodium levelOrdered By: Otilia Rainey on 11-30-2024 Sodium [Moles/Vol] 139 mmol/L 136-145 [facility] White blood cell (WBC) count Ordered By: Buzz Rainey on 11-30-2024 WBC (Bld) [#/Vol] 5.0 10*3/uL 4.4-11.0 [facility] Absolute neutrophil countOrd ered By: Buzz Rainey on 11-23-2024 Neutrophils (Bld) [#/Vol] 3.4 10*3/uL 2.0-7.7 [facility] Basophil percentageOrdered B y: Buzz Rainey on 11-23-2024 Basophils/100 WBC (Bld) 0.5 % 0-[address] [facility] Blood urea nitrogen (BUN)/cr eatinine ratioOrdered By: Buzz Rainey on 11-23-2024 Urea nitrogen/Creatinine [Mass ratio] 19.8 mg/mg 10-20 [facility] Carbon dioxide measurementOr dered By: Buzz Rainey on 11-23-2024 CO2 [Moles/Vol] 28.0 mmol/L 21.0-32.0 [facility] Chloride measurementOrdered By: tamanna Rainey on 11-23-2024 Chloride [Moles/Vol] 104 mmol/L 98-107 [facility] Eosinophil percentageOrdered By: Buzz Rainey on 11-23-2024 Eosinophils/100 WBC (Bld) 6.0 % High 0-5 [facility] Erythrocyte distribution wid th (RBC) [Ratio]Ordered By: Buzz Rainey on 11-23-2024 Erythrocyte distribution width (RBC) [Entitic vol] 43.7 fL 35.1-43.9 [facility] Erythrocyte distribution wid th ratioOrdered By: Buzz Rainey on 11-23-2024 Erythrocyte distribution width (RBC) [Ratio] 11.9 % 11.6-14.6 [facility] Estimated glomerular filtrat ion rate (GFR) AmericanOrdered By: Buzz Rainey on 11-23-2024 Estimated GFR (MDRD) Amer 67 mL/min >60 [facility] Comment on above: GFR Calc Glomerular filtration rate ( GFR) estimationOrdered By: Buzz Rainey on 11-23-2024 Estimated GFR (MDRD) Non-Af Amer 56 mL/min Low >60 [facility] Comment on above: Non- GFR Calc Glucose measurementOrdered B y: Buzz Rainey on 11-23-2024 Glucose [Mass/Vol] 119 mg/dL High 74-106 [facility] Comment on above: Fasting Glucose resu lt from 100 to 125 mg/dL suggests IMPAIRED HOMEOSTASIS per A.D.A. criteria. Hematocrit Auto (Bld) [Volum e fraction]Ordered By: Buzz Rainey on 11-23-2024 Hematocrit (Bld) [Volume fraction] 40.4 % 40-54 [facility] Hemoglobin measurementOrdere d By: Buzz Rainey on 11-23-2024 Hemoglobin (Bld) [Mass/Vol] 13.8 g/dL 13.0-16.5 [facility] Immature granulocytes/100 WB C Auto (Bld)Ordered By: Buzz Rainey on 11-23-2024 Immature granulocytes/100 WBC (Bld) 0.400 % 0.0-0.9 [facility] Comment on above: IG% - Immature Granu locytes (promyelocytes, myelocytes and metamyelocytes) > 1% indicates that a LEFT SHIFT is Present. Lymphocytes Auto (Unsp spec) [#/Vol]Ordered By: yumikofairfieldestrella Rainey on 11-23-2024 Lymphocytes (Bld) [#/Vol] 1.22 10*3/uL 0.83-4.51 [facility] Lymphocytes/100 WBC Auto (Un sp spec)Ordered By: Buzz Rainey on 11-23-2024 Lymphocytes/100 WBC (Bld) 21.4 % 19-41 [facility] MCV (mean corpuscular volume ) determinationOrdered By: Buzz Rainey on 11-23-2024 MCV (RBC) [Entitic vol] 99.5 fL High 80-[address] [facility] Mean corpuscular hemoglobin (MCH) determinationOrdered By: Buzz Rainey on 11-23-2024 MCH (RBC) [Entitic mass] 34.0 pg High 27.0-32.0 [facility] Mean corpuscular hemoglobin concentration (MCHC) determinationOrdered By: Buzz Rainey on 11-23-2024 MCHC (RBC) [Mass/Vol] 34.2 g/dL 32-36 [facility] Mean platelet volume determi nationOrdered By: Buzz Rainey on 11-23-2024 Platelet mean volume (Bld) [Entitic vol] 10.2 fL 6.2-12.0 [facility] Monocyte percentageOrdered B y: Buzz Rainey on 11-23-2024 Monocytes/100 WBC (Bld) 12.4 % High 0-[address] [facility] Neutrophil percentageOrdered By: Buzz Rainey on 11-23-2024 Neutrophils/100 WBC (Bld) 59.3 % 47-70 [facility] Nucleated red blood cell per centageOrdered By: Buzz Rainey on 11-23-2024 Nucleated RBC/100 WBC (Bld) [Ratio] 0 % 0-5 [facility] Platelet countOrdered By: Alexandra yumikoarthur Rainey on 11-23-2024 Platelets (Bld) [#/Vol] 219 10*3/uL 150-450 [facility] Potassium measurementOrdered By: Buzz Rainey on 11-23-2024 Potassium [Moles/Vol] 4.7 mmol/L 3.5-5.1 [facility] RBC Auto (Bld) [#/Vol]Ordere d By: Buzz Rainey on 11-23-2024 RBC (Bld) [#/Vol] 4.06 10*6/uL Low 4.6-6.2 [facility] Serum anion gap measurementO rdered By: Buzz Rainey on 11-23-2024 Anion gap [Moles/Vol] 5 mmol/L 5-15 [facility] Serum or plasma calcium jesenia urement (mass/volume)Ordered By: Buzz Rainey on 11-23-2024 Calcium [Mass/Vol] 9.2 mg/dL 8.5-10.1 [facility] Serum or plasma creatinine m easurement (mass/volume)Ordered By: Buzz Rainey on 11-23-2024 Creatinine [Mass/Vol] 1.31 mg/dL High 0.70-1.30 [facility] Comment on above: The validity of the calculated GFR & GFRAA in patients over 70 years has not been determined. Clinical correlation is essential. Serum or plasma urea nitroge n measurement (mass/volume)Ordered By: Buzz Rainey on 11-23-2024 Urea nitrogen [Mass/Vol] 26 mg/dL High 7-18 [facility] Sodium levelOrdered By: Otilia arthur Redd on 11-23-2024 Sodium [Moles/Vol] 136 mmol/L 136-145 [facility] White blood cell (WBC) count Ordered By: Buzz Rainey on 11-23-2024 WBC (Bld) [#/Vol] 5.7 10*3/uL 4.4-11.0 [facility] Absolute neutrophil countOrd ered By: Buzz Rainey on 11-16-2024 Neutrophils (Bld) [#/Vol] 3.9 10*3/uL 2.0-7.7 [facility] Basophil percentageOrdered B y: Buzz Rainey on 11-16-2024 Basophils/100 WBC (Bld) 0.7 % 0-1 [facility] Blood urea nitrogen (BUN)/cr eatinine ratioOrdered By: Buzz Rainey on 11-16-2024 Urea nitrogen/Creatinine [Mass ratio] 18.8 mg/mg 10-20 [facility] Carbon dioxide measurementOr dered By: Buzz Rainey on 11-16-2024 CO2 [Moles/Vol] 25.0 mmol/L 21.0-32.0 [facility] Chloride measurementOrdered By: Buzz Rainey on 11-16-2024 Chloride [Moles/Vol] 105 mmol/L 98-107 [facility] Eosinophil percentageOrdered By: Buzz Rainey on 11-16-2024 Eosinophils/100 WBC (Bld) 6.1 % High 0-5 [facility] Erythrocyte distribution wid th (RBC) [Ratio]Ordered By: Buzz Rainey on 11-16-2024 Erythrocyte distribution width (RBC) [Entitic vol] 43.8 fL 35.1-43.9 [facility] Erythrocyte distribution wid th ratioOrdered By: Buzz Rainey on 11-16-2024 Erythrocyte distribution width (RBC) [Ratio] 11.9 % 11.6-14.6 [facility] Estimated glomerular filtrat ion rate (GFR) AmericanOrdered By: Buzz Rainey on 11-16-2024 Estimated GFR (MDRD) Amer 56 mL/min Low >60 [facility] Comment on above: GFR Calc Glomerular filtration rate ( GFR) estimationOrdered By: Buzz Rainey on 11-16-2024 Estimated GFR (MDRD) Non-Af Amer 46 mL/min Low >60 [facility] Comment on above: Non- GFR Calc Glucose measurementOrdered B y: Buzz Rainey on 11-16-2024 Glucose [Mass/Vol] 130 mg/dL High 74-106 [facility] Comment on above: Fasting Glucose resu lt greater than or equal to 126 mg/dL suggests DIABETES MELLITUS per A.D.A. criteria. Hematocrit Auto (Bld) [Volum e fraction]Ordered By: Buzz Rainey on 11-16-2024 Hematocrit (Bld) [Volume fraction] 37.6 % Low 40-54 [facility] Hemoglobin measurementOrdere d By: Buzz Rainey on 11-16-2024 Hemoglobin (Bld) [Mass/Vol] 12.7 g/dL Low 13.0-16.5 [facility] Immature granulocytes/100 WB C Auto (Bld)Ordered By: Buzz Rainey on 11-16-2024 Immature granulocytes/100 WBC (Bld) 0.200 % 0.0-0.9 [facility] Comment on above: IG% - Immature Granu locytes (promyelocytes, myelocytes and metamyelocytes) > 1% indicates that a LEFT SHIFT is Present. Lymphocytes Auto (Unsp spec) [#/Vol]Ordered By: Buzz Rainey on 11-16-2024 Lymphocytes (Bld) [#/Vol] 1.20 10*3/uL 0.83-4.51 [facility] Lymphocytes/100 WBC Auto (Un sp spec)Ordered By: Buzz Rainey on 11-16-2024 Lymphocytes/100 WBC (Bld) 19.8 % 19-41 [facility] MCV (mean corpuscular volume ) determinationOrdered By: Buzz Rainey on 11-16-2024 MCV (RBC) [Entitic vol] 100.5 fL High 80-[address] [facility] Mean corpuscular hemoglobin (MCH) determinationOrdered By: Buzz Rainey on 11-16-2024 MCH (RBC) [Entitic mass] 34.0 pg High 27.0-32.0 [facility] Mean corpuscular hemoglobin concentration (MCHC) determinationOrdered By: Buzz Rainey on 11-16-2024 MCHC (RBC) [Mass/Vol] 33.8 g/dL 32-36 [facility] Mean platelet volume determi nationOrdered By: Buzz Rainey on 11-16-2024 Platelet mean volume (Bld) [Entitic vol] 10.0 fL 6.2-12.0 [facility] Monocyte percentageOrdered B y: Buzz Rainey on 11-16-2024 Monocytes/100 WBC (Bld) 9.1 % 0-[address] [facility] Neutrophil percentageOrdered By: Buzz Rainey on 11-16-2024 Neutrophils/100 WBC (Bld) 64.1 % 47-70 [facility] Nucleated red blood cell per centageOrdered By: Buzz Rainey on 11-16-2024 Nucleated RBC/100 WBC (Bld) [Ratio] 0 % 0-5 [facility] Platelet countOrdered By: Alexandra Rainey on 11-16-2024 Platelets (Bld) [#/Vol] 210 10*3/uL 150-450 [facility] Potassium measurementOrdered By: Buzz Rainey on 11-16-2024 Potassium [Moles/Vol] 4.9 mmol/L 3.5-5.1 [facility] Comment on above: Slight Hemolysis, Re sult may be falsely increased. RBC Auto (Bld) [#/Vol]Ordere d By: Buzz Rainey on 11-16-2024 RBC (Bld) [#/Vol] 3.74 10*6/uL Low 4.6-6.2 [facility] Serum anion gap measurementO rdered By: Buzz Rainey on 11-16-2024 Anion gap [Moles/Vol] 5 mmol/L 5-15 [facility] Serum or plasma calcium jesenia urement (mass/volume)Ordered By: Buzz Rainey on 11-16-2024 Calcium [Mass/Vol] 9.0 mg/dL 8.5-10.1 [facility] Serum or plasma creatinine m easurement (mass/volume)Ordered By: Alexandrayumikohueyestrella De La Pazmklana on 11-16-2024 Creatinine [Mass/Vol] 1.54 mg/dL High 0.70-1.30 [facility] Comment on above: The validity of the calculated GFR & GFRAA in patients over 70 years has not been determined. Clinical correlation is essential. Serum or plasma urea nitroge n measurement (mass/volume)Ordered By: Buzz Rainey on 11-16-2024 Urea nitrogen [Mass/Vol] 29 mg/dL High 7-18 [facility] Sodium levelOrdered By: Otilia arthur Brainmklana on 11-16-2024 Sodium [Moles/Vol] 135 mmol/L Low 136-145 [facility] White blood cell (WBC) count Ordered By: Buzz De La Pazmklana on 11-16-2024 WBC (Bld) [#/Vol] 6.1 10*3/uL 4.4-11.0 [facility] Absolute neutrophil countOrd ered By: Alexandratamanna De La Pazmklana on 11-09-2024 Neutrophils (Bld) [#/Vol] 3.1 10*3/uL 2.0-7.7 [facility] Basophil percentageOrdered B y: Buzz De La Pazmklana on 11-09-2024 Basophils/100 WBC (Bld) 0.8 % 0-1 [facility] Blood urea nitrogen (BUN)/cr eatinine ratioOrdered By: Buzz De La Pazmklana on 11-09-2024 Urea nitrogen/Creatinine [Mass ratio] 21.8 mg/mg High 10-20 [facility] Carbon dioxide measurementOr dered By: Buzz De La Pazmklana on 11-09-2024 CO2 [Moles/Vol] 27.0 mmol/L 21.0-32.0 [facility] Chloride measurementOrdered By: Buzz Rainey on 11-09-2024 Chloride [Moles/Vol] 105 mmol/L 98-107 [facility] Eosinophil percentageOrdered By: Eftamanna Rainey on 11-09-2024 Eosinophils/100 WBC (Bld) 9.1 % High 0-5 [facility] Erythrocyte distribution wid th (RBC) [Ratio]Ordered By: tamanna Rainey on 11-09-2024 Erythrocyte distribution width (RBC) [Entitic vol] 43.2 fL 35.1-43.9 [facility] Erythrocyte distribution wid th ratioOrdered By: [facility] Rain[facility] on 11-09-2024 Erythrocyte distribution width (RBC) [Ratio] 11.8 % 11.6-14.6 [facility] Estimated glomerular filtrat ion rate (GFR) AmericanOrdered By: [facility] De La Pazlana on 11-09-2024 Estimated GFR (MDRD) Amer 72 mL/min >60 [facility] Comment on above: GFR Calc Glomerular filtration rate ( GFR) estimationOrdered By: yumikofairfieldestrella De La Pazlana on 11-09-2024 Estimated GFR (MDRD) Non-Af Amer 59 mL/min Low >60 [facility] Comment on above: Non- GFR Calc Glucose measurementOrdered B y: Buzz Rainey on 11-09-2024 Glucose [Mass/Vol] 145 mg/dL High 74-106 [facility] Comment on above: Fasting Glucose resu lt greater than or equal to 126 mg/dL suggests DIABETES MELLITUS per A.D.A. criteria. Hematocrit Auto (Bld) [Volum e fraction]Ordered By: [facility] De La Pazlana on 11-09-2024 Hematocrit (Bld) [Volume fraction] 38.3 % Low 40-54 [facility] Hemoglobin measurementOrdere d By: Buzz Rainey on 11-09-2024 Hemoglobin (Bld) [Mass/Vol] 12.9 g/dL Low 13.0-16.5 [facility] Immature granulocytes/100 WB C Auto (Bld)Ordered By: tamanna Monreallana on 11-09-2024 Immature granulocytes/100 WBC (Bld) 0.400 % 0.0-0.9 [facility] Comment on above: IG% - Immature Granu locytes (promyelocytes, myelocytes and metamyelocytes) > 1% indicates that a LEFT SHIFT is Present. Lymphocytes Auto (Unsp spec) [#/Vol]Ordered By: Buzz Rainey on 11-09-2024 Lymphocytes (Bld) [#/Vol] 1.10 10*3/uL 0.83-4.51 [facility] Lymphocytes/100 WBC Auto (Un sp spec)Ordered By: Buzz Rainey on 11-09-2024 Lymphocytes/100 WBC (Bld) 21.3 % 19-41 [facility] MCV (mean corpuscular volume ) determinationOrdered By: Buzz Rainey on 11-09-2024 MCV (RBC) [Entitic vol] 100.3 fL High 80-[address] [facility] Mean corpuscular hemoglobin (MCH) determinationOrdered By: Buzz Rainey on 11-09-2024 MCH (RBC) [Entitic mass] 33.8 pg High 27.0-32.0 [facility] Mean corpuscular hemoglobin concentration (MCHC) determinationOrdered By: Buzz Rainey on 11-09-2024 MCHC (RBC) [Mass/Vol] 33.7 g/dL 32-36 [facility] Mean platelet volume determi nationOrdered By: Buzz Rainey on 11-09-2024 Platelet mean volume (Bld) [Entitic vol] 10.0 fL 6.2-12.0 [facility] Monocyte percentageOrdered B y: Buzz Rainey on 11-09-2024 Monocytes/100 WBC (Bld) 9.1 % 0-[address] [facility] Neutrophil percentageOrdered By: Buzz Rainey on 11-09-2024 Neutrophils/100 WBC (Bld) 59.3 % 47-70 [facility] Nucleated red blood cell per centageOrdered By: Buzz Rainey on 11-09-2024 Nucleated RBC/100 WBC (Bld) [Ratio] 0 % 0-5 [facility] Platelet countOrdered By: Ef tamanna Rainey on 11-09-2024 Platelets (Bld) [#/Vol] 225 10*3/uL 150-450 [facility] Potassium measurementOrdered By: Buzz Rainey on 11-09-2024 Potassium [Moles/Vol] 4.5 mmol/L 3.5-5.1 [facility] RBC Auto (Bld) [#/Vol]Ordere d By: Buzz Rainey on 11-09-2024 RBC (Bld) [#/Vol] 3.82 10*6/uL Low 4.6-6.2 [facility] Serum anion gap measurementO rdered By: Buzz Rainey on 11-09-2024 Anion gap [Moles/Vol] 4 mmol/L Low 5-15 [facility] Serum or plasma calcium jesenia urement (mass/volume)Ordered By: Buzz Rainey on 11-09-2024 Calcium [Mass/Vol] 8.8 mg/dL 8.5-10.1 [facility] Serum or plasma creatinine m easurement (mass/volume)Ordered By: Buzz Rainey on 11-09-2024 Creatinine [Mass/Vol] 1.24 mg/dL 0.70-1.30 [facility] Comment on above: The validity of the calculated GFR & GFRAA in patients over 70 years has not been determined. Clinical correlation is essential. Serum or plasma urea nitroge n measurement (mass/volume)Ordered By: Buzz Rainey on 11-09-2024 Urea nitrogen [Mass/Vol] 27 mg/dL High 7-18 [facility] Sodium levelOrdered By: Otilia Rainey on 11-09-2024 Sodium [Moles/Vol] 136 mmol/L 136-145 [facility] White blood cell (WBC) count Ordered By: Buzz Rainey on 11-09-2024 WBC (Bld) [#/Vol] 5.2 10*3/uL 4.4-11.0 [facility] [id number] DOrdered By: Lana Rainey on 11-03-2024 Vitamin D 25-Hydroxy 37.4 ng/mL [facility] Comment on above: Vitamin D 25(OH) Sta tus Range Deficiency <20 ng/mL (50nmol/L) Insufficiency 20 - 30 ng/mL (50 - 75 nmol/L) Sufficiency 30 - 100 ng/mL (75 - 250 nmol/L) Toxicity >100 ng/mL (>250 nmol/L) Absolute neutrophil countOrd ered By: Buzz Rainey on 11-03-2024 Neutrophils (Bld) [#/Vol] 3.2 10*3/uL 2.0-7.7 [facility] Albumin to globulin ratioOrd ered By: tamanna De La Pazmklana on 11-03-2024 Albumin/Globulin [Mass ratio] 1.0 {ratio} 0.9-2.4 [facility] Basophil percentageOrdered B y: Buzz De La Pazmklana on 11-03-2024 Basophils/100 WBC (Bld) 0.4 % 0-[address] [facility] Bilirubin, totalOrdered By: Buzz Rainey on 11-03-2024 Bilirubin [Mass/Vol] 0.80 mg/dL 0.20-1.00 [facility] Comment on above: For patients on eltr ombopag therapy, use of Dimension [place] TBIL is not recommended. Blood urea nitrogen (BUN)/cr eatinine ratioOrdered By: Buzz Rainey on 11-03-2024 Urea nitrogen/Creatinine [Mass ratio] 24.5 mg/mg High 10-20 [facility] Carbon dioxide measurementOr dered By: Buzz Rainey on 11-03-2024 CO2 [Moles/Vol] 23.0 mmol/L 21.0-32.0 [facility] Chloride measurementOrdered By: [facility] De La Pazlana on 11-03-2024 Chloride [Moles/Vol] 105 mmol/L 98-107 [facility] Eosinophil percentageOrdered By: Buzz Rainey on 11-03-2024 Eosinophils/100 WBC (Bld) 8.6 % High 0-5 [facility] Erythrocyte distribution wid th (RBC) [Ratio]Ordered By: Otiliafairfieldestrella Rainey on 11-03-2024 Erythrocyte distribution width (RBC) [Entitic vol] 44.9 fL High 35.1-43.9 [facility] Erythrocyte distribution wid th ratioOrdered By: [facility] Rain[facility] on 11-03-2024 Erythrocyte distribution width (RBC) [Ratio] 12.0 % 11.6-14.6 [facility] Estimated glomerular filtrat ion rate (GFR) AmericanOrdered By: Buzz Rainey on 11-03-2024 Estimated GFR (MDRD) Amer 61 mL/min >60 [facility] Comment on above: GFR Calc Glomerular filtration rate ( GFR) estimationOrdered By: Buzz Rainey on 11-03-2024 Estimated GFR (MDRD) Non-Af Amer 50 mL/min Low >60 [facility] Comment on above: Non- GFR Calc Glucose measurementOrdered B y: Buzz Rainey on 11-03-2024 Glucose [Mass/Vol] 146 mg/dL High 74-106 [facility] Comment on above: Fasting Glucose resu lt greater than or equal to 126 mg/dL suggests DIABETES MELLITUS per A.D.A. criteria. Hematocrit Auto (Bld) [Volum e fraction]Ordered By: Buzz Rainey on 11-03-2024 Hematocrit (Bld) [Volume fraction] 43.0 % 40-54 [facility] Hemoglobin A1c percentageOrd ered By: Buzz Rainey on 11-03-2024 HbA1c (Bld) [Mass fraction] 6.6 % High 3.8-5.6 [facility] Comment on above: Normal < 5.7 % Predi abetic 5.7 - 6.4 % Diabetic >or= 6.5 % Please note range changes. Hemoglobin measurementOrdere d By: Buzz Rainey on 11-03-2024 Hemoglobin (Bld) [Mass/Vol] 14.7 g/dL 13.0-16.5 [facility] High density lipoprotein (HD L) measurementOrdered By: Buzz Rainey on 11-03-2024 Cholesterol in HDL [Mass/Vol] 57 mg/dL >40 [facility] Comment on above: The drugs N-Acetylcy steine and Metamizole may falsely depress this assay. Reference Range HDL <40 mg/dL Low HDL Cholesterol HDL >or= 60 mg/dL High HDL Cholesterol Immature granulocytes/100 WB C Auto (Bld)Ordered By: Buzz Rainey on 11-03-2024 Immature granulocytes/100 WBC (Bld) 0.200 % 0.0-0.9 [facility] Comment on above: IG% - Immature Granu locytes (promyelocytes, myelocytes and metamyelocytes) > 1% indicates that a LEFT SHIFT is Present. Laboratory - Chemistry and C hemistry - challengeOrdered By: Buzz Rainey on 11-03-2024 AST [Catalytic activity/Vol] 41 U/L High 15-37 [facility] Low density lipoprotein (LDL ) cholesterol measurementOrdered By: Buzz Rainey on 11-03-2024 Cholesterol in LDL [Mass/Vol] 97 mg/dL 0-130 [facility] Lymphocytes Auto (Unsp spec) [#/Vol]Ordered By: Buzz Rainey on 11-03-2024 Lymphocytes (Bld) [#/Vol] 0.87 10*3/uL 0.83-4.51 [facility] Lymphocytes/100 WBC Auto (Un sp spec)Ordered By: Buzz Rainey on 11-03-2024 Lymphocytes/100 WBC (Bld) 17.4 % Low 19-41 [facility] MCV (mean corpuscular volume ) determinationOrdered By: Buzz Rainey on 11-03-2024 MCV (RBC) [Entitic vol] 101.2 fL High 80-[address] [facility] Magnesium measurementOrdered By: Buzz Rainey on 11-03-2024 Magnesium [Mass/Vol] 2.2 mg/dL 1.6-2.6 [facility] Mean corpuscular hemoglobin (MCH) determinationOrdered By: Buzz Rainey on 11-03-2024 MCH (RBC) [Entitic mass] 34.6 pg High 27.0-32.0 [facility] Mean corpuscular hemoglobin concentration (MCHC) determinationOrdered By: Buzz Rainey on 11-03-2024 MCHC (RBC) [Mass/Vol] 34.2 g/dL 32-36 [facility] Mean platelet volume determi nationOrdered By: Buzz Rainey on 11-03-2024 Platelet mean volume (Bld) [Entitic vol] 9.9 fL 6.2-12.0 [facility] Monocyte percentageOrdered B y: Buzz Rainey on 11-03-2024 Monocytes/100 WBC (Bld) 10.4 % High 0-[address] [facility] Neutrophil percentageOrdered By: Buzz De La Pazmklana on 11-03-2024 Neutrophils/100 WBC (Bld) 63.0 % 47-70 [facility] Nucleated red blood cell per centageOrdered By: Buzz Rainey on 11-03-2024 Nucleated RBC/100 WBC (Bld) [Ratio] 0 % 0-5 [facility] Platelet countOrdered By: Alexandra Rainey on 11-03-2024 Platelets (Bld) [#/Vol] 190 10*3/uL 150-450 [facility] Potassium measurementOrdered By: Buzz Rainey on 11-03-2024 Potassium [Moles/Vol] 5.0 mmol/L 3.5-5.1 [facility] RBC Auto (Bld) [#/Vol]Ordere d By: Buzz Rainey on 11-03-2024 RBC (Bld) [#/Vol] 4.25 10*6/uL Low 4.6-6.2 [facility] Serum anion gap measurementO rdered By: Buzz Rainey on 11-03-2024 Anion gap [Moles/Vol] 8 mmol/L 5-15 [facility] Serum globulin measurementOr dered By: Buzz Rainey on 11-03-2024 Globulin (S) [Mass/Vol] 3.8 g/dL 2.2-4.[address] [facility] Serum or plasma alanine nix otransferase (ALT) measurementOrdered By: Buzz Rainey on 11-03-2024 ALT [Catalytic activity/Vol] 20 U/L 16-61 [facility] Serum or plasma albumin jesenia urement (mass/volume)Ordered By: Buzz Rainey 11-03-2024 Albumin [Mass/Vol] 3.7 g/dL 3.2-5.0 [facility] Serum or plasma alkaline radha sphatase measurementOrdered By: Buzz Rainey 11-03-2024 ALP [Catalytic activity/Vol] 77 U/L 45-117 [facility] Serum or plasma calcium jesenia urement (mass/volume)Ordered By: Buzz Rainey on 11-03-2024 Calcium [Mass/Vol] 9.3 mg/dL 8.5-10.1 [facility] Serum or plasma cholesterol measurement (mass/volume)Ordered By: Buzz Rainey on 11-03-2024 Cholesterol [Mass/Vol] 175 mg/dL <200 [facility] Comment on above: <200 mg/dL Desirable 200-240 mg/dL Borderline >240 mg/dL High Risk Serum or plasma creatinine m easurement (mass/volume)Ordered By: Buzz Rainey on 11-03-2024 Creatinine [Mass/Vol] 1.43 mg/dL High 0.70-1.30 [facility] Comment on above: The validity of the calculated GFR & GFRAA in patients over 70 years has not been determined. Clinical correlation is essential. Serum or plasma urea nitroge n measurement (mass/volume)Ordered By: Buzz Rainey on 11-03-2024 Urea nitrogen [Mass/Vol] 35 mg/dL High 7-18 [facility] Sodium levelOrdered By: Otilia baileycharilana Rainey on 11-03-2024 Sodium [Moles/Vol] 136 mmol/L 136-145 [facility] Total proteinOrdered By: Franklin Rainey on 11-03-2024 Protein [Mass/Vol] 7.5 g/dL 6.4-8.2 [facility] Triglycerides measurementOrd ered By: Buzz Rainey on 11-03-2024 Triglyceride [Mass/Vol] 105 mg/dL <199 [facility] Comment on above: The drugs N-Acetylcy steine and Metamizole may falsely depress this assay.Serum Triglycerides Reference Interval Normal <150 mg/dL Borderline high 150 - 199 mg/dL High 200 - 499 mg/dL Very High > or = 500 mg/dL Very low density lipoprotein (VLDL) cholesterol measurementOrdered By: Buzz Rainey on 11-03-2024 VLDL Cholesterol 21 mg/dL 5-40 [facility] White blood cell (WBC) count Ordered By: Buzz Rainey 11-03-2024 WBC (Bld) [#/Vol] 5.0 10*3/uL 4.4-11.0 [facility] Bedside Glucoseon 11-01-2024 FINGERSTICK GLU 163 mg/dL [address] Comment on above: Result Comment: ARNOLD GEMENT OF PATIENT CARE PER NURSING PROTOCOL Performed By: #### L 501.080 ####[facility] [id number] [place], [address] FINGERSTICK GLU 212 mg/dL [address] Comment on above: Result Comment: ARNOLD GEMENT OF PATIENT CARE PER NURSING PROTOCOL Performed By: #### L 501.080 #### [facility] Laboratory [address] [place], [address] FINGERSTICK GLU 125 mg/dL [address] Comment on above: Result Comment: ARNOLD GEMENT OF PATIENT CARE PER NURSING PROTOCOL Performed By: #### L 501.080 #### [facility] [address] [place], [address] [facility] deOrdered By: Sung Rhodes on 11-01-2024 Bedside Glucose (Misc Panel) 163 mg/dL [address] Comment on above: MANAGEMENT OF PATIEN T CARE PER NURSING PROTOCOL Bedside Glucoseon 10-31-2024 FINGERSTICK GLU 125 mg/dL [address] Comment on above: Result Comment: ARNOLD GEMENT OF PATIENT CARE PER NURSING PROTOCOL Performed By: #### L 501.080 #### [facility] [address] [place], [address] FINGERSTICK GLU 136 mg/dL [address] Comment on above: Result Comment: ARNOLD GEMENT OF PATIENT CARE PER NURSING PROTOCOL Performed By: #### L 501.080 #### [facility] [address] [place], [address] FINGERSTICK GLU 207 mg/dL [address] Comment on above: Result Comment: ARNOLD GEMENT OF PATIENT CARE PER NURSING PROTOCOL Performed By: #### L 501.080 ####[facility] [id number] [place], [address] FINGERSTICK GLU 297 mg/dL High 74-106 [facility] Comment on above: Result Comment: ARNOLD GEMENT OF PATIENT CARE PER NURSING PROTOCOL Performed By: #### L 501.080 ####[facility] [address] [place], [address] Bedside Glucoseon 10-30-2024 FINGERSTICK GLU 216 mg/dL High -106 [facility] Comment on above: Result Comment: ARNOLD GEMENT OF PATIENT CARE PER NURSING PROTOCOL Performed By: #### L 501.080 ####[facility] [id number] [place], [address] FINGERSTICK GLU 256 mg/dL High -106 [facility] Comment on above: Result Comment: ARNOLD GEMENT OF PATIENT CARE PER NURSING PROTOCOL Performed By: #### L 501.080 ####[facility] [address] [place], [address] FINGERSTICK GLU 197 mg/dL High -106 [facility] Comment on above: Result Comment: ARNOLD GEMENT OF PATIENT CARE PER NURSING PROTOCOL Performed By: #### L 501.080 #### [facility] [address] [place], [address] FINGERSTICK GLU 177 mg/dL High 74-106 [facility] Comment on above: Result Comment: ARNOLD GEMENT OF PATIENT CARE PER NURSING PROTOCOL Performed By: #### L 501.080 #### [facility] [address] [place], [address] FINGERSTICK GLU 188 mg/dL High 74-106 [facility] Comment on above: Result Comment: ARNOLD GEMENT OF PATIENT CARE PER NURSING PROTOCOL Performed By: #### L 501.080 #### [facility] [address] [place], [address] Absolute neutrophil countOrd ered By: Roderick Laurent on 10-29-2024 Neutrophils (Bld) [#/Vol] 3.8 10*3/uL 2.0-7.7 [facility] Albumin to globulin ratioOrd ered By: Roderick Laurent on 10-29-2024 Albumin/Globulin [Mass ratio] 1.2 {ratio} 0.9-2.4 [facility] Basophil percentageOrdered B y: Roderick Laurent on 10-29-2024 Basophils/100 WBC (Bld) 0.7 % 0-[address] [facility] Bedside Glucoseon 10-29-2024 FINGERSTICK GLU 255 mg/dL High 74-106 [facility] Comment on above: Result Comment: ARNOLD GEMENT OF PATIENT CARE PER NURSING PROTOCOL Performed By: #### L 501.080 #### [facility] [address] [facility] [address] FINGERSTICK GLU 214 mg/dL High -106 [facility] Comment on above: Result Comment: ARNOLD GEMENT OF PATIENT CARE PER NURSING PROTOCOL Performed By: #### L 501.080 #### [facility] [address] [place], [address] FINGERSTICK GLU 189 mg/dL High 74-106 [facility] Comment on above: Result Comment: ARNOLD GEMENT OF PATIENT CARE PER NURSING PROTOCOL Performed By: #### L 501.080 #### [facility] [address] [place], [address] FINGERSTICK GLU 161 mg/dL High 74-106 [facility] Comment on above: Result Comment: ARNOLD GEMENT OF PATIENT CARE PER NURSING PROTOCOL Performed By: #### L 501.080 #### [facility] [address] [place], [address] FINGERSTICK GLU 198 mg/dL High 74-106 [facility] Comment on above: Result Comment: ARNOLD GEMENT OF PATIENT CARE PER NURSING PROTOCOL Performed By: #### L 501.080 #### [facility] [address] [place], [address] FINGERSTICK GLU 328 mg/dL High 74-106 [facility] Comment on above: Result Comment: ARNOLD HAYWARD OF PATIENT CARE PER NURSING PROTOCOL Performed By: #### L 501.080 #### [facility] [address] [place], [address] Bilirubin, totalOrdered By: Roderick Laurent on 10-29-2024 Bilirubin [Mass/Vol] 0.60 mg/dL 0.20-1.00 [facility] Comment on above: For patients on eltr ombopag therapy, use of Dimension [place] TBIL is not recommended. Blood urea nitrogen (BUN)/cr eatinine ratioOrdered By: Roderick Laurent on 10-29-2024 Urea nitrogen/Creatinine [Mass ratio] 23.6 mg/mg High 10-20 [facility] CBC W/Diff, Automatedon 12-0 Absolute Lymph 0.93 X10 3/uL Normal 0.83-4.51 [facility] Comment on above: Performed By: #### L 501.080 #### [facility] [address] [place], [address] Absolute Neut 3.8 X10 3/uL Normal 2.0-7.7 [facility] Comment on above: Performed By: #### L [id number] #### [facility] [address] [place], [address] Basophils/100 WBC (Bld) 0.7 % Normal 0-[address] [facility] Comment on above: Performed By: #### [id number] #### [facility] [address] [place], [address] Eosinophils/100 WBC (Bld) 3.5 % Normal 0-5 [facility] Comment on above: Performed By: #### L 501.080 #### [facility] [address] [place], [address] Erythrocyte distribution width (RBC) [Ratio] 11.9 % Normal 11.6-14.6 [facility] Comment on above: Performed By: #### L 501.080 #### [facility] [address] [place], [address] Hematocrit (Bld) [Volume fraction] 40.5 % Normal 40-54 [facility] Comment on above: Performed By: #### L 501.080 #### [facility] [address] [place], [address] Hemoglobin (Bld) [Mass/Vol] 13.6 g/dL Normal 13.0-16.5 [facility] Comment on above: Performed By: #### L 501.080 #### [facility] [address] [place], [address] IG% 0.200 Normal 0.0-0.9 [facility] Comment on above: Result Comment: IG% - Immature Granulocytes (promyelocytes, myelocytes and metamyelocytes) > 1% indicates that a LEFT SHIFT is Present. Performed By: #### L 501.080 #### [facility] [address] [place], [address] Lymphocytes/100 WBC (Bld) 16.2 % Low 19-41 [facility] Comment on above: Performed By: #### L [id number] #### [facility] [address] [place], [address] MCH (RBC) [Entitic mass] 33.8 pg High 27.0-32.0 [facility] Comment on above: Performed By: #### L 501.080 #### [facility] [address] [place], [address] MCHC (RBC) [Mass/Vol] 33.6 g/dL Normal 32-36 [facility] Comment on above: Performed By: #### L 501.080 #### [facility] [address] [place], [address] MCV (RBC) [Entitic vol] 100.7 fL High 80-[address] [facility] Comment on above: Performed By: #### L [id number] #### [facility] [address] [place], [address] Monocytes/100 WBC (Bld) 12.5 % High 0-[address] [facility] Comment on above: Performed By: #### L [id number] #### [facility] [address] [place], [address] Neutrophils/100 WBC (Bld) 66.9 % Normal 47-70 [facility] Comment on above: Performed By: #### L [id number] #### [facility] Laboratory [facility] [place], [address] Nucleated RBC (Bld) [#/Vol] 0 10*3/uL Normal 0-5 [facility] Comment on above: Performed By: #### L 501.080 #### [facility] [address] [place], [address] Platelet mean volume (Bld) [Entitic vol] 9.2 fL Normal 6.2-12.0 [facility] [facility] Comment on above: Performed By: #### L 501.080 #### [facility] [address] [place], [address] Platelets (Bld) [#/Vol] 230 10*3/uL Normal 150-450 [facility] Comment on above: Performed By: #### L 501.080 #### [facility] [address] [place], [address] RBC (Bld) [#/Vol] 4.02 10*6/uL Low 4.6-6.2 [facility] Comment on above: Performed By: #### L 501.080 #### [facility] [address] [place], [address] RDW SD 44.6 fl High 35.1-43.9 [facility] Comment on above: Performed By: #### L 501.080 #### [facility] [address] [place], [address] WBC (Bld) [#/Vol] 5.7 10*3/uL Normal 4.4-11.0 [facility] Comment on above: Performed By: #### L 501.080 #### [facility] [address] [place], [address] Carbon dioxide measurementOr dered By: Roderick Laurent on 10-29-2024 CO2 [Moles/Vol] 26.0 mmol/L 21.0-32.0 [facility] Chloride measurementOrdered By: Roderick Laurent on 10-29-2024 Chloride [Moles/Vol] 105 mmol/L 98-107 [facility] Comprehensive Metabolic Prof ilon 10-29-2024 Albumin [Mass/Vol] 3.5 g/dL Normal 3.2-5.0 [facility] Comment on above: Performed By: #### L 501.080 #### [facility] [address] [place], [address] Albumin/Globulin [Mass ratio] 1.2 {ratio} Normal 0.9-2.4 [facility] Comment on above: Performed By: #### L 501.080 #### [facility] [address] [place], [address] ALK P 64 U/L Normal 45-117 [facility] Comment on above: Performed By: #### L 501.080 #### [facility] [address] [place], [address] ALT [Catalytic activity/Vol] 15 U/L Low 16-61 [facility] Comment on above: Performed By: #### L 501.080 #### [facility] [address] [place], [address] AST [Catalytic activity/Vol] 22 U/L Normal 15-37 [facility] Comment on above: Performed By: #### L 501.080 #### [facility] [address] [place], [address] Bilirubin [Mass/Vol] 0.60 mg/dL Normal 0.20-1.00 [facility] Comment on above: Result Comment: For patients on eltrombopag therapy, use of Dimension Ottertail TBIL is not recommended. Performed By: #### L 501.080 #### [facility] [address] [place], [address] BUN/CRE 23.6 RATIO High 10-20 [facility] Comment on above: Performed By: #### L 501.080 #### [facility] [address] [place], [address] CA,Total 8.9 mg/dL Normal 8.5-10.1 [facility] Comment on above: Performed By: #### L 501.080 #### [facility] [address] [place], [address] Chloride [Moles/Vol] 105 mmol/L Normal 98-107 [facility] Comment on above: Performed By: #### L 501.080 #### [facility] [address] [place], [address] CO2 [Moles/Vol] 26.0 mmol/L Normal 21.0-32.0 [facility] Comment on above: Performed By: #### L 501.080 #### [facility] [address] [place], [address] Creatinine [Mass/Vol] 1.57 mg/dL High 0.70-1.30 [facility] Comment on above: Result Comment: The validity of the calculated GFR GFRAA in patients over 70 years has not been determined. Clinical correlation is essential. Performed By: #### L 501.080 #### [facility] [address] [place], [address] ECRCL 38.64 ml/min Normal [facility] Comment on above: Performed By: #### L 501.080 #### [facility] [address] [place], [address] EST GFR - AA 55 mL/min Low >60 [facility] Comment on above: Result Comment: Afri can Ivorian GFR Calc Performed By: #### L 501.080 #### [facility] [address] [place], [address] GAP 7 Normal 5-15 [facility] Comment on above: Performed By: #### L 501.080 #### [facility] [address] [place], [address] GFR/1.73 sq M.predicted among non-blacks MDRD (S/P/Bld) [Vol rate/Area] 45 mL/min/{1.73_m2} Low >60 [facility] Comment on above: Result Comment: Non- GFR Calc Performed By: #### L 501.080 #### [facility] [address] [place], [address] Globulin (S) [Mass/Vol] 2.9 g/dL Normal 2.2-4.2 [facility] Comment on above: Performed By: #### L 501.080 #### [facility] [address] [place], [address] Glucose [Mass/Vol] 212 mg/dL High 74-106 [facility] Comment on above: Result Comment: Gluc ose result greater than or equal to 200 mg/dL suggests DIABETES MELLITUS per A.D.A. criteria. Performed By: #### L 501.080 #### [facility] [address] [place], [address] Potassium [Moles/Vol] 4.4 mmol/L Normal 3.5-5.1 [facility] Comment on above: Performed By: #### L 501.080 #### [facility] [address] [place], [address] Sodium [Moles/Vol] 138 mmol/L Normal 136-145 [facility] Comment on above: Performed By: #### L 501.080 #### [facility] [address] [place], [address] T PROT 6.4 g/dL Normal 6.4-8.2 [facility] Comment on above: Performed By: #### L 501.080 #### [facility] [address] [place], [address] Urea nitrogen [Mass/Vol] 37 mg/dL High 7-18 [facility] Comment on above: Performed By: #### L 501.080 #### [facility] [address] [place], [address] Eosinophil percentageOrdered By: Roderick Laurent on 10-29-2024 Eosinophils/100 WBC (Bld) 3.5 % 0-5 [facility] Erythrocyte distribution wid th (RBC) [Ratio]Ordered By: Roderick Laurent on 10-29-2024 Erythrocyte distribution width (RBC) [Entitic vol] 44.6 fL High 35.1-43.9 [facility] Erythrocyte distribution wid th ratioOrdered By: Roderick Laurent on 10-29-2024 Erythrocyte distribution width (RBC) [Ratio] 11.9 % 11.6-14.6 [facility] Estimated glomerular filtrat ion rate (GFR) AmericanOrdered By: Roderick Laurent on 10-29-2024 Estimated GFR (MDRD) Amer 55 mL/min Low >60 [facility] Comment on above: GFR Calc Estimation of creatinine chapito aranceOrdered By: Roderick Laurent on 10-29-2024 Estimated Creatinine Clearance Calc 38.64 ml/min [facility] Glomerular filtration rate ( GFR) estimationOrdered By: Roderick Laurent on 10-29-2024 Estimated GFR (MDRD) Non-Af Amer 45 mL/min Low >60 [facility] Comment on above: Non- GFR Calc Glucose measurementOrdered B y: Roderick Laurent on 10-29-2024 Glucose [Mass/Vol] 212 mg/dL High 74-106 [facility] Comment on above: Glucose result great er than or equal to 200 mg/dLsuggests DIABETES MELLITUS per A.D.A. criteria. Hematocrit Auto (Bld) [Volum e fraction]Ordered By: Roderick Laurent on 10-29-2024 Hematocrit (Bld) [Volume fraction] 40.5 % 40-54 [facility] Hemoglobin measurementOrdere d By: Roderick Laurent on 10-29-2024 Hemoglobin (Bld) [Mass/Vol] 13.6 g/dL 13.0-16.5 [facility] Immature granulocytes/100 WB C Auto (Bld)Ordered By: Roderick Laurent on 10-29-2024 Immature granulocytes/100 WBC (Bld) 0.200 % 0.0-0.9 [facility] Comment on above: IG% - Immature Granu locytes (promyelocytes, myelocytes and metamyelocytes) > 1% indicates that a LEFT SHIFT is Present. Laboratory - Chemistry and C hemistry - challengeOrdered By: Roderick Laurent on 10-29-2024 AST [Catalytic activity/Vol] 22 U/L 15-37 [facility] Lymphocytes Auto (Unsp spec) [#/Vol]Ordered By: Roderick Laurent on 10-29-2024 Lymphocytes (Bld) [#/Vol] 0.93 10*3/uL 0.83-4.51 [facility] Lymphocytes/100 WBC Auto (Un sp spec)Ordered By: Roderick Laurent on 10-29-2024 Lymphocytes/100 WBC (Bld) 16.2 % Low 19-41 [facility] MCV (mean corpuscular volume ) determinationOrdered By: Roderick Laurent on 10-29-2024 MCV (RBC) [Entitic vol] 100.7 fL High 80-[address] [facility] Mean corpuscular hemoglobin (MCH) determinationOrdered By: Roderick Laurent on 10-29-2024 MCH (RBC) [Entitic mass] 33.8 pg High 27.0-32.0 [facility] Mean corpuscular hemoglobin concentration (MCHC) determinationOrdered By: Roderick Laurent on 10-29-2024 MCHC (RBC) [Mass/Vol] 33.6 g/dL 32-36 [facility] Mean platelet volume determi nationOrdered By: Roderick Laurent on 10-29-2024 Platelet mean volume (Bld) [Entitic vol] 9.2 fL 6.2-12.0 [facility] Monocyte percentageOrdered B y: Roderick Laurent on 10-29-2024 Monocytes/100 WBC (Bld) 12.5 % High 0-[address] [facility] Neutrophil percentageOrdered By: Roderick Laurent on 10-29-2024 Neutrophils/100 WBC (Bld) 66.9 % 47-70 [facility] Nucleated red blood cell per centageOrdered By: Roderick Laurent on 10-29-2024 Nucleated RBC/100 WBC (Bld) [Ratio] 0 % 0-5 [facility] Platelet countOrdered By: Marilu Laurent on 10-29-2024 Platelets (Bld) [#/Vol] 230 10*3/uL 150-450 [facility] Potassium measurementOrdered By: Roderick Laurent on 10-29-2024 Potassium [Moles/Vol] 4.4 mmol/L 3.5-5.1 [facility] RBC Auto (Bld) [#/Vol]Ordere d By: Roderick Laurent on 10-29-2024 RBC (Bld) [#/Vol] 4.02 10*6/uL Low 4.6-6.2 [facility] Serum anion gap measurementO rdered By: Roderick Laurent on 10-29-2024 Anion gap [Moles/Vol] 7 mmol/L 5-15 [facility] Serum globulin measurementOr dered By: Roderick Laurent on 10-29-2024 Globulin (S) [Mass/Vol] 2.9 g/dL 2.2-4.[address] [facility] Serum or plasma alanine nix otransferase (ALT) measurementOrdered By: Roderick Laurent on 10-29-2024 ALT [Catalytic activity/Vol] 15 U/L Low 16-61 [facility] Serum or plasma albumin jesenia urement (mass/volume)Ordered By: Roderick Laurent on 10-29-2024 Albumin [Mass/Vol] 3.5 g/dL 3.2-5.0 [facility] Serum or plasma alkaline radha sphatase measurementOrdered By: Roderick Laurent on 10-29-2024 ALP [Catalytic activity/Vol] 64 U/L 45-117 [facility] Serum or plasma calcium jesenia urement (mass/volume)Ordered By: Roderick Laurent on 10-29-2024 Calcium [Mass/Vol] 8.9 mg/dL 8.5-10.1 [facility] Serum or plasma creatinine m easurement (mass/volume)Ordered By: Roderick Laurent on 10-29-2024 Creatinine [Mass/Vol] 1.57 mg/dL High 0.70-1.30 [facility] Comment on above: The validity of the calculated GFR & GFRAA in patients over 70 years has not been determined. Clinical correlation is essential. Serum or plasma urea nitroge n measurement (mass/volume)Ordered By: Roderick Laurent on 10-29-2024 Urea nitrogen [Mass/Vol] 37 mg/dL High 7-18 [facility] Sodium levelOrdered By: Roderick Laurent on 10-29-2024 Sodium [Moles/Vol] 138 mmol/L 136-145 [facility] Total proteinOrdered By: Mario Laurent on 10-29-2024 Protein [Mass/Vol] 6.4 g/dL 6.4-8.2 [facility] White blood cell (WBC) count Ordered By: Roderick Laurent on 10-29-2024 WBC (Bld) [#/Vol] 5.7 10*3/uL 4.4-11.0 [facility] Bedside Glucoseon 10-28-2024 FINGERSTICK GLU 191 mg/dL High 74-106 [facility] Comment on above: Result Comment: ARNOLD HAYWARD OF PATIENT CARE PER NURSING PROTOCOL Performed By: #### L 501.080 #### [facility] [address] [place], [address] FINGERSTICK GLU 130 mg/dL High 74-106 [facility] Comment on above: Result Comment: ARNOLD GEMENT OF PATIENT CARE PER NURSING PROTOCOL Performed By: #### L 501.080 #### [facility] [address] [place], [address] FINGERSTICK GLU 204 mg/dL High 74-106 [facility] Comment on above: Result Comment: ARNOLD GEMENT OF PATIENT CARE PER NURSING PROTOCOL Performed By: #### L 501.080 #### [facility] [address] [place], [address] CBC W/Diff, Automatedon 12-0 -2023 Absolute Lymph 1.02 X10 3/uL Normal 0.83-4.51 [facility] Comment on above: Performed By: #### L 100.0100, L500.4050, L501.9520 #### [facility] [address] [place], [address] Absolute Neut 3.9 X10 3/uL Normal 2.0-7.7 [facility] Comment on above: Performed By: #### L 100.0100, L500.4050, L501.9520 #### [facility] [address] [place], [address] Basophils/100 WBC (Bld) 0.5 % Normal 0-[address] [facility] Comment on above: Performed By: #### L 100.0100, L500.4050, L501.9520 #### [facility] [address] [place], [address] Eosinophils/100 WBC (Bld) 3.0 % Normal 0-5 [facility] Comment on above: Performed By: #### L 100.0100, L500.4050, L501.9520 #### [facility] [address] [place], [address] Erythrocyte distribution width (RBC) [Ratio] 11.8 % Normal 11.6-14.6 [facility] Comment on above: Performed By: #### L 100.0100, L500.4050, L501.9520 #### [facility] [address] [place], [address] Hematocrit (Bld) [Volume fraction] 40.0 % Normal 40-54 [facility] Comment on above: Performed By: #### L 100.0100, L500.4050, L501.9520 #### [facility] [address] [place], [address] Hemoglobin (Bld) [Mass/Vol] 13.5 g/dL Normal 13.0-16.5 [facility] Comment on above: Performed By: #### L 100.0100, L500.4050, L501.9520 #### [facility] [address] [place], [address] IG% 0.300 Normal 0.0-0.9 [facility] Comment on above: Result Comment: IG% - Immature Granulocytes (promyelocytes, myelocytes and metamyelocytes) > 1% indicates that a LEFT SHIFT is Present. Performed By: #### L 100.0100, L500.4050, L501.9520 #### [facility] [address] [place], [address] Lymphocytes/100 WBC (Bld) 17.2 % Low 19-41 [facility] Comment on above: Performed By: #### L 100.0100, L500.4050, L501.9520 #### [facility] [address] [place], [address] MCH (RBC) [Entitic mass] 33.4 pg High 27.0-32.0 [facility] Comment on above: Performed By: #### L 100.0100, L500.4050, L501.9520 #### [facility] [address] [place], [address] MCHC (RBC) [Mass/Vol] 33.8 g/dL Normal 32-36 [facility] Comment on above: Performed By: #### L 100.0100, L500.4050, L501.9520 #### [facility] [address] [place], [address] MCV (RBC) [Entitic vol] 99.0 fL High 80-[address] [facility] Comment on above: Performed By: #### L 100.0100, L500.4050, L501.9520 #### [facility] [address] [place], [address] Monocytes/100 WBC (Bld) 13.9 % High 0-10 [facility] Comment on above: Performed By: #### L 100.0100, L500.4050, L501.9520 #### [facility] [address] [place], [address] Neutrophils/100 WBC (Bld) 65.1 % Normal 47-70 [facility] Comment on above: Performed By: #### L 100.0100, L500.4050, [id number] #### [facility] [address] [place], [address] Nucleated RBC (Bld) [#/Vol] 0 10*3/uL Normal 0-5 [facility] Comment on above: Performed By: #### L 100.0100, L500.4050, [id number] #### [facility] [address] [place], [address] Platelet mean volume (Bld) [Entitic vol] 9.4 fL Normal 6.2-12.0 [facility] Comment on above: Performed By: #### L 100.0100, L500.4050, L501.9520 #### [facility] [address] [place], [address] Platelets (Bld) [#/Vol] 251 10*3/uL Normal 150-450 [facility] Comment on above: Performed By: #### L 100.0100, L500.4050, L501.9520 #### [facility] [address] [place], [address] RBC (Bld) [#/Vol] 4.04 10*6/uL Low 4.6-6.2 [facility] Comment on above: Performed By: #### L 100.0100, L500.4050, L501.9520 #### [facility] [address] [place], [address] RDW SD 43.0 fl Normal 35.1-43.9 [facility] Comment on above: Performed By: #### L 100.0100, L500.4050, [id number] #### [facility] [address] [place], [address] WBC (Bld) [#/Vol] 5.9 10*3/uL Normal 4.4-11.0 [facility] Comment on above: Performed By: #### L 100.0100, L500.4050, L501.9520 #### [facility] [address] [place], [address] Comprehensive Metabolic Prof [facility] 10-28-2024 Albumin [Mass/Vol] 3.6 g/dL Normal 3.2-5.0 [facility] Comment on above: Performed By: #### L 100.0100, L500.4050, L501.9520 ####[facility] [address] [place], [address] Albumin/Globulin [Mass ratio] 1.1 {ratio} Normal 0.9-2.4 [facility] Comment on above: Performed By: #### L 100.0100, L500.4050, L501.9520 ####[facility] [address] [place], [address] ALK P 68 U/L Normal 45-117 [facility] Comment on above: Performed By: #### L 100.0100, L500.4050, L501.9520 ####[facility] [address] [place], [address] ALT [Catalytic activity/Vol] 24 U/L Normal 16-61 [facility] Comment on above: Performed By: #### L 100.0100, L500.4050, [id number] ####[facility] [address] [place], [address] AST [Catalytic activity/Vol] 25 U/L Normal 15-37 [facility] Comment on above: Performed By: #### L 100.0100, L500.4050, L501.9520 ####[facility] [address] [place], [address] Bilirubin [Mass/Vol] 1.00 mg/dL Normal 0.20-1.00 [facility] Comment on above: Result Comment: For patients on eltrombopag therapy, use of Dimension Ottertail TBIL is not recommended. Performed By: #### L 100.0100, L500.4050, L501.9520 ####[facility] [address] [place], [address] BUN/CRE 16.7 RATIO Normal 10-20 [facility] Comment on above: Performed By: #### L 100.0100, L500.4050, L501.9520 ####[facility] [address] [place], [address] CA,Total 8.7 mg/dL Normal 8.5-10.1 [facility] Comment on above: Performed By: #### L 100.0100, L500.4050, L501.9520 ####[facility] [address] [place], [address] Chloride [Moles/Vol] 105 mmol/L Normal 98-107 [facility] Comment on above: Performed By: #### L 100.0100, L500.4050, L501.9520 ####[facility] [address] [place], [address] CO2 [Moles/Vol] 23.0 mmol/L Normal 21.0-32.0 [facility] Comment on above: Performed By: #### L 100.0100, L500.4050, L501.9520 ####[facility] [address] [place], [address] Creatinine [Mass/Vol] 1.20 mg/dL Normal 0.70-1.30 [facility] Comment on above: Result Comment: The validity of the calculated GFR GFRAA in patients over 70 years has not been determined. Clinical correlation is essential. Performed By: #### L 100.0100, L500.4050, L501.9520 ####[facility] [address] [place], [address] ECRCL 50.55 ml/min Normal [facility] Comment on above: Performed By: #### L 100.0100, L500.4050, L501.9520 ####[facility] [address] [place], [address] EST GFR - AA 74 mL/min Normal >60 [facility] Comment on above: Result Comment: Afri can Ivorian GFR Calc Performed By: #### L 100.0100, L500.4050, L501.9520 ####[facility] [address] [place], [address] GAP 8 Normal 5-15 [facility] Comment on above: Performed By: #### L 100.0100, L500.4050, L501.9520 ####[facility] [address] [place], [address] GFR/1.73 sq M.predicted among non-blacks MDRD (S/P/Bld) [Vol rate/Area] 62 mL/min/{1.73_m2} Normal >60 [facility] Comment on above: Result Comment: Non- GFR Calc Performed By: #### L 100.0100, L500.4050, L501.9520 ####[facility] [address] [place], [address] Globulin (S) [Mass/Vol] 3.3 g/dL Normal 2.2-4.2 [facility] Comment on above: Performed By: #### L 100.0100, L500.4050, L501.9520 ####[facility] [address] [place], [address] Glucose [Mass/Vol] 130 mg/dL High 74-106 [facility] Comment on above: Result Comment: Fast ing Glucose result greater than or equal to 126 mg/dL suggests DIABETES MELLITUS per A.D.A. criteria. Performed By: #### L 100.0100, L500.4050, L501.9520 ####[facility] [address] [place], [address] Potassium [Moles/Vol] 3.9 mmol/L Normal 3.5-5.1 [facility] Comment on above: Performed By: #### L 100.0100, L500.4050, L501.9520 ####[facility] [address] [place], [address] Sodium [Moles/Vol] 136 mmol/L Normal 136-145 [facility] Comment on above: Performed By: #### L 100.0100, L500.4050, L501.9520 ####[facility] [address] [place], [address] T PROT 6.9 g/dL Normal 6.4-8.2 [facility] Comment on above: Performed By: #### L 100.0100, L500.4050, L501.9520 ####[facility] [address] [place], [address] Urea nitrogen [Mass/Vol] 20 mg/dL High 7-18 [facility] Comment on above: Performed By: #### L 100.0100, L500.4050, L501.9520 ####[facility] [address] [place], [address] Culture, Anaerobic Any Sourc adrianna 10-28-2024 CUAN List Antibiotics Las t 48 Hours? NONE List Antibiotics to be Started? NONE No anaerobic bacteria isolated. Normal [facility] Comment on above: Performed By: #### M 100.2000, M100.3000, M100.4001 ####[facility] [address] [place], [address] TSH QnOrdered By: Sulma maxwell on 10-28-2024 Thyroid Stimulating Hormone (TSH) 4.070 uIU/mL High 0.358-3.740 [facility] Thyroid Stim Hormone (TSH)on 10-28-2024 TSH 4.070 uIU/mL High 0.358-3.740 [facility] Comment on above: Performed By: #### L 100.0100, L500.4050, L501.9520 ####[facility] [address] [place], [address] Urine Cultureon 10-28-2024 URC Mixed Gram Pos Gram Neg Org [place] Count 11,000-25,000 MIXC Mixed contaminants. Submit a new specimen if indicated. Normal [facility] Comment on above: Performed By: #### M 100.2200 ####[facility] [address] [place], [id number] 12 Lead EKGon 10-27-2024 12 Lead EKG [facility] Cardiovascular Services [address] [place] [address] 12 Lead EKG 10/27/24 1027 MR#: [id number] Acct: [id number] Name: FLEX KLINE Rep #: [id number] : 1940 84 From: Garfield Thornton MD Attending Dr: Dr. Roderick Laurent DO Status: A DM IN Ordering Dr: Velasquez Morales DO Date: 4 [place] [facility] [place] M C Admitted: 10/27/24 Test Reason [...] Otherwise normal ECG Confirmed by Garfield Thornton ([id number]), development editor ERROL AIKEN ([id number]) on 10/30/2024 6:53:52 AM Referred By: Confirmed By: Garfield Thornton 10/30/24 0653 Date Garfield Thornton MD CC: Dr. Velasquez Morales DO; Dr. Roderick Laurent DO; Dr. Felix Montelongo MD Signed Normal [facility] BNP (brain natriuretic pepti de measurement)Ordered By: Velasquez Morales on 10-27-2024 Natriuretic peptide B (Bld) [Mass/Vol] 133.8 pg/mL High 0-100 [facility] BNP,B-Type NATRIURETIC PEPTI Camryn 10-27-2024 Natriuretic peptide B (Bld) [Mass/Vol] 133.8 pg/mL High 0-100 [facility] Comment on above: Performed By: #### L 501.080 #### [facility] Laboratory [address] [place], [address] Basic Metabolic Profile (BMP )on 10-27-2024 BUN/CRE 17.1 RATIO Normal 10-20 [facility] Comment on above: Order Comment: 1Y Performed By: #### L 501.080 #### [facility] Laboratory [address] [place], [address] CA,Total 9.2 mg/dL Normal 8.5-10.1 [facility] Comment on above: Order Comment: 1Y Performed By: #### L 501.080 #### [facility] Laboratory [address] [place], [address] Chloride [Moles/Vol] 100 mmol/L Normal 98-107 [facility] Comment on above: Order Comment: 1Y Performed By: #### L 501.080 #### [facility] Laboratory [address] [place], [address] CO2 [Moles/Vol] 27.0 mmol/L Normal 21.0-32.0 [facility] Comment on above: Order Comment: 1Y Performed By: #### L 501.080 #### [facility] Laboratory [address] [place], [address] Creatinine [Mass/Vol] 1.46 mg/dL High 0.70-1.30 [facility] Comment on above: Order Comment: 1Y Result Comment: The validity of the calculated GFR GFRAA in patients over 70 years has not been determined. Clinical correlation is essential. Performed By: #### L 501.080 #### [facility] Laboratory [address] [place], [address] ECRCL 41.55 ml/min Normal [facility] Comment on above: Order Comment: 1Y Performed By: #### L 501.080 #### [facility] Laboratory [address] [place], [address] EST GFR - AA 59 mL/min Low >60 [facility] Comment on above: Order Comment: 1Y Result Comment: Afri can Ivorian GFR Calc Performed By: #### L 501.080 #### [facility] Laboratory [address] [place], [address] GAP 7 Normal 5-15 [facility] Comment on above: Order Comment: 1Y Performed By: #### L 501.080 #### [facility] Laboratory [address] [place], [address] GFR/1.73 sq M.predicted among non-blacks MDRD (S/P/Bld) [Vol rate/Area] 49 mL/min/{1.73_m2} Low >60 [facility] Comment on above: Order Comment: 1Y Result Comment: Non- GFR Calc Performed By: #### L 501.080 #### [facility] Laboratory [address] [place], [address] Glucose [Mass/Vol] 158 mg/dL High 74-106 [facility] Comment on above: Order Comment: 1Y Result Comment: Fast ing Glucose result greater than or equal to 126 mg/dL suggests DIABETES MELLITUS per A.D.A. criteria. Performed By: #### L 501.080 #### [facility] Laboratory [address] [place], [address] Potassium [Moles/Vol] 4.4 mmol/L Normal 3.5-5.1 [facility] Comment on above: Order Comment: 1Y Result Comment: Mode rate Hemolysis, Result may be falsely increased. Performed By: #### L 501.080 #### [facility] Laboratory [address] [place], [address] Sodium [Moles/Vol] 133 mmol/L Low 136-145 [facility] Comment on above: Order Comment: 1Y Performed By: #### L 501.080 #### [facility] Laboratory [address] [place], [address] Urea nitrogen [Mass/Vol] 25 mg/dL High 7-18 [facility] Comment on above: Order Comment: 1Y Performed By: #### L 501.080 #### [facility] Laboratory [address] [place], [address] Bedside Glucoseon 10-27-2024 FINGERSTICK GLU 100 mg/dL Normal 74-106 [facility] Comment on above: Result Comment: ARNOLD HAYWARD OF PATIENT CARE PER NURSING PROTOCOL Performed By: #### L 501.080 #### [facility] Laboratory [address] [place], [address] Bilirubin Test strip Ql (U)O rdered By: Velasquez Morales on 10-27-2024 Bilirubin Ql (U) Negative Negative [facility] CBC W/Diff, Automatedon Absolute Neut Normal 2.0-7.7 [facility] Comment on above: Result Comment: Canc elled via OM: MD Ordered Performed By: #### L 501.080 #### [facility] Laboratory [address] [place], [address] HCT Normal 40-54 [facility] Comment on above: Result Comment: Canc elled via OM: MD Ordered Performed By: #### L 501.080 #### [facility] Laboratory [address] [place], [address] HGB Normal 13.0-16.5 [facility] Comment on above: Result Comment: Canc elled via OM: MD Ordered Performed By: #### L 501.080 #### [facility] Laboratory [address] [place], [address] MCH Normal 27.0-32.0 [facility] Comment on above: Result Comment: Canc elled via OM: MD Ordered Performed By: #### L 501.080 #### [facility] Laboratory [address] [place], [address] MCHC Normal 32-36 [facility] Comment on above: Result Comment: Canc elled via OM: MD Ordered Performed By: #### L 501.080 #### [facility] Laboratory [address] [place], [address] MCV Normal 80-94 [facility] Comment on above: Result Comment: Canc elled via OM: MD Ordered Performed By: #### L 501.080 #### [facility] Laboratory [address] [place], [address] NEUT% Normal 47-70 [facility] Comment on above: Result Comment: Canc elled via OM: MD Ordered Performed By: #### L 501.080 #### [facility] Laboratory [address] [place], [address] PLT Normal 150-450 [facility] Comment on above: Result Comment: Canc elled via OM: MD Ordered Performed By: #### L 501.080 #### [facility] Laboratory [address] [place], [address] RBC Normal 4.6-6.2 [facility] Comment on above: Result Comment: Canc elled via OM: MD Ordered Performed By: #### L 501.080 #### [facility] Laboratory [address] [place], [address] RDW CV Normal 11.6-14.6 [facility] Comment on above: Result Comment: Canc elled via OM: MD Ordered Performed By: #### L 501.080 #### [facility] Laboratory [address] [place], [address] RDW SD Normal 35.1-43.9 [facility] Comment on above: Result Comment: Canc elled via OM: MD Ordered Performed By: #### L 501.080 #### [facility] Laboratory [address] [place], [address] WBC Normal 4.4-11.0 [facility] Comment on above: Result Comment: Canc elled via OM: MD Ordered Performed By: #### L 501.080 #### [facility] Laboratory [address] [place], [address] Absolute Lymph 0.82 X10 3/uL Low 0.83-4.51 [facility] Comment on above: Performed By: #### L 501.080 #### [facility] Laboratory [address] [place], [address] Absolute Neut 4.3 X10 3/uL Normal 2.0-7.7 [facility] Comment on above: Performed By: #### L 501.080 #### [facility] Laboratory [address] [place], [address] Basophils/100 WBC (Bld) 0.7 % Normal 0-[address] [facility] Comment on above: Performed By: #### L 501.080 #### [facility] Laboratory [address] [place], [address] Eosinophils/100 WBC (Bld) 2.2 % Normal 0-5 [facility] Comment on above: Performed By: #### L 501.080 #### [facility] Laboratory [address] [place], [address] Erythrocyte distribution width (RBC) [Ratio] 11.9 % Normal 11.6-14.6 [facility] Comment on above: Performed By: #### L 501.080 #### [facility] Laboratory [address] [place], [address] Hematocrit (Bld) [Volume fraction] 41.5 % Normal 40-54 [facility] Comment on above: Performed By: #### L 501.080 #### [facility] Laboratory [address] [place], [address] Hemoglobin (Bld) [Mass/Vol] 14.6 g/dL Normal 13.0-16.5 [facility] Comment on above: Performed By: #### L 501.080 #### [facility] Laboratory [address] [place], [address] IG% 0.300 Normal 0.0-0.9 [facility] Comment on above: Result Comment: IG% - Immature Granulocytes (promyelocytes, myelocytes and metamyelocytes) > 1% indicates that a LEFT SHIFT is Present. Performed By: #### L 501.080 #### [facility] Laboratory [address] [place], [address] Lymphocytes/100 WBC (Bld) 14.1 % Low 19-41 [facility] Comment on above: Performed By: #### L 501.080 #### [facility] Laboratory [address] [place], [address] MCH (RBC) [Entitic mass] 34.9 pg High 27.0-32.0 [facility] Comment on above: Performed By: #### L 501.080 #### [facility] Laboratory [address] [place], [address] MCHC (RBC) [Mass/Vol] 35.2 g/dL Normal 32-36 [facility] Comment on above: Performed By: #### L 501.080 #### [facility] Laboratory [address] [place], [address] MCV (RBC) [Entitic vol] 99.3 fL High 80-[address] [facility] Comment on above: Performed By: #### L 501.080 #### [facility] Laboratory [address] [place], [address] Monocytes/100 WBC (Bld) 9.3 % Normal 0-10 [facility] Comment on above: Performed By: #### L 501.080 #### [facility] Laboratory [address] [place], [address] Neutrophils/100 WBC (Bld) 73.4 % High 47-70 [facility] Comment on above: Performed By: #### L 501.080 #### [facility] Laboratory [address] [place], [address] Nucleated RBC (Bld) [#/Vol] 0 10*3/uL Normal 0-5 [facility] Comment on above: Performed By: #### L 501.080 #### [facility] Laboratory [address] [place], [address] Platelet mean volume (Bld) [Entitic vol] 9.6 fL Normal 6.2-12.0 [facility] Comment on above: Performed By: #### L 501.080 #### [facility] Laboratory [address] [place], [address] Platelets (Bld) [#/Vol] 256 10*3/uL Normal 150-450 [facility] Comment on above: Performed By: #### L 501.080 #### [facility] Laboratory [address] [place], [address] RBC (Bld) [#/Vol] 4.18 10*6/uL Low 4.6-6.2 [facility] Comment on above: Performed By: #### L 501.080 #### [facility] Laboratory [address] [place], [address] RDW SD 43.4 fl Normal 35.1-43.9 [facility] Comment on above: Performed By: #### L 501.080 #### [facility] Laboratory [address] [place], [address] WBC (Bld) [#/Vol] 5.8 10*3/uL Normal 4.4-11.0 [facility] Comment on above: Performed By: #### L 501.080 #### [facility] Laboratory [address] [place], [address] Chest 1 View (Portable)on Chest 1 View (Portable) [facility] Imaging Services [address] [place] [address] Chest 1 View (Portable) MR#: [id number] Acct: [id number] Name: FLEX KLINE Rep #: [id number] : 1940 M 84 From: Clint Freire MD PCP: Dr. Felix Montelongo MD Status: PRE ER Study: Chest 1 View (Portable) Date of Exam: 10/27/24 Exam# [id number] Ordering Dr: Velasquez Morales DO [id number] STUDY: X-RAY CHEST REASON FOR EXAM: Male, [...] Velasquez Morales DO; Dr. Felix Montelongo MD Commercial Property Administrator: Signed Normal [facility] D-Dimer Quantitative (DVT/PE )on 10-27-2024 D-DIMER QUANT 0.50 FEU/ug/m High 0.27-0.49 [facility] Comment on above: Order Comment: CRITI SHIN VALUE CALLED TO TROY QBNXAUP37/06/24 1225 Cat Thong.RESULTS READ BACK BY SAME. Result Comment: D-Di augusta ELEVATED (>0.49): Additional studies and clinical assessments are indicated to conclude diagnosis of: Deep Vein Thrombosis (DVT) or Pulmonary Embolism (PE) Performed By: #### L 501.080 #### [facility] Laboratory [address] [place], [address] D-dimer measurement for deep venous thrombosisOrdered By: Velasquez Morales on 10-27-2024 D-Dimer Quantitative (PE/DVT) 0.50 FEU/ug/m High 0.27-0.49 [facility] Comment on above: D-Dimer ELEVATED (>0 .49): Additional studies and clinicalassessments are indicated to conclude diagnosis of:Deep Vein Thrombosis (DVT) or Pulmonary Embolism (PE) Echo Complete W/ Contraston 10-27-2024 Echo Complete W/ Contrast [facility] Cardiovascular Services [address] [place] [address] Echo Complete W/ Contrast 10/28/24 0814 MR#: [id number] Acct: [id number] Name: FLEX KLINE Rep #: [id number] : 1940 84 From: Angela Ramirez MD Attending Dr: Dr. Roderick Laurent, DO Status: A DM IN Ordering Dr: Sulma Romero MD Date: 10/27/24 [place] [facility] [place]: M C Admitted: 10/27/24 Reason For [...] MD Date Dictated: 10/28/24813 Date Transcribed: 10/28/241446 Commercial Property Administrator: Signed Normal [facility] Emergency Department Summary on 10-27-2024 Emergency Department Summary [facility] Medical Records Department [address] [place] [id number] Emergency Department Summary 10/27/24 MR#: [id number] Acct: [id number] Name: FLEX KLINE Rep #: [id number] : 1940 84 From: Velasquez Morales DO PCP: Dr. Felix Montelongo MD Status:ADM IN Location: [place] [address] HPI History of Present Illness Chief Complaint: [...] intact Psych: Cooperative, appropriate mood and affect [facility] Medical History Diabetes GERD (gastroesophageal reflux disease) Cataract 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 Parkinson's disease [...] Verified 10/27/24 10:34 (Beta-Adrenergic Bloc Family History Mother Alzheimer's dementia Diabetes Father CAD (coronary artery disease) Heart disease Brother CAD (coron (more content not included)... Normal [facility] Epithelial cells.squamous LM Ql (Urine sed)Ordered By: Velasquez Morales on 10-27-2024 Epithelial cells.squamous LM.HPF (Urine sed) [#/Area] 0 /[HPF] 0-5 [facility] Glucose Ql (U)Ordered By: Korey Morales on 10-27-2024 Glucose (U) [Mass/Vol] 1000 mg/dL High Normal [facility] H AND P Exam - Hospitaliston 10-27-2024 H&P Exam - Hospitalist [facility] Medical Records Department [address] [place] [address] H P Exam - Hospitalist 10/27/24 1633 MR#: [id number] Acct: [id number] Name: FLEX KLINE Rep #: [id number] : 1940 84 From: Sulma Romero MD PCP: Dr. Felix Montelongo MD Status:ADM IN [place] [facility] [id number] HPI - General General Date of Admission: 10/27/24 Date of Service: 10/27/24 Chief Complaint: Weakness, CP, SOB HPI Narrative FLEX KLINE, is a 84-year-old male history of CKD, Parkinson's, CAD, BPH, diabetes, hypothyroidism presented [facility] ED 10/27/2024 with shortness of breath, chest [...] notice any change with exertion or rest. 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 Normal [facility] Influenza virus A and B and SARS-CoV-2 (COVID-19) and Respiratory syncytial virus RNAOrdered By: Velasquez Morales on 10-27-2024 SARS-CoV-2 (COVID-19) RNA ROSIE+probe Ql (Unsp spec) [facility] Ketones Test strip Ql (U)Ord ered By: Velasquez Morales on 10-27-2024 Ketones Ql (U) 5 mg/dl High Negative [facility] L501.4020on 10-27-2024 TROPONIN-I HS 9 pg/mL Normal 3.0-78.0 [facility] Comment on above: Result Comment: Pleashlyn valiente Note: New Test Units and Gender Specific Reference Ranges. For more information see Policy Stat Procedure [place] High Sensitivity Troponin (TNIH) and attachments. Performed By: #### L 501.4020 ####[facility] [address] [place], [address] L501.5425on 10-27-2024 TROPONIN-I HS 8 pg/mL Normal 3.0-78.0 [facility] Comment on above: Order Comment: 1Y Result Comment: Pleashlyn se Note: New Test Units and Gender Specific Reference Ranges. For more information see Policy Stat Procedure [place] High Sensitivity Troponin (TNIH) and attachments. Performed By: #### L 501.080 #### [facility] Laboratory [address] [place], [address] M100.678on 10-27-2024 M100.678 Pending SARS-CoV-2 (COVID 19) Negative INFLUENZA A Negative INFLUENZA B Negative RSV PCR Negative Normal [facility] Comment on above: Performed By: #### M 100.678, L400.0001 ####[facility] [address] [place], [address] Magnesiumon 10-27-2024 Magnesium [Mass/Vol] 2.2 mg/dL Normal 1.6-2.6 [facility] Comment on above: Performed By: #### L 501.080 #### [facility] Laboratory [address] [place], [address] Magnesium measurementOrdered By: Velasquez Morales on 10-27-2024 Magnesium [Mass/Vol] 2.2 mg/dL 1.6-2.6 [facility] Microscopic analysis of urin e for red blood cells (RBC)Ordered By: Velasquez Morales on 10-27-2024 Urine RBC 0 SEEN /hpf 0-5 [facility] Mucus LM Ql (Urine sed)Order ed By: Velasquez Morales on 10-27-2024 Mucus Ql (Urine sed) 0 SEEN /hpf [facility] Nitrite Test strip Ql (U)Ord ered By: Velasquez Morales on 10-27-2024 Nitrite Ql (U) Negative Negative [facility] Protein Test strip Ql (U)Ord ered By: Velasquez Morales on 10-27-2024 Protein Ql (U) 30 mg/dl High Negative [facility] Thyroid Stim Hormone (TSH)on 10-27-2024 TSH 2.580 uIU/mL Normal 0.358-3.740 [facility] Comment on above: Performed By: #### L 501.080 #### [facility] Laboratory [address] [place], [address] Troponin IOrdered By: Velasquez Morales on 10-27-2024 Troponin I High Sensitivity 9 pg/mL 3.0-78.0 [facility] Comment on above: Please Note: New Luz Elena t Units and Gender Specific Reference Ranges. For more information see Policy Stat Procedure [place] High Sensitivity Troponin (TNIH) and attachments. Urinalysis, Completeon 10-27 BACTERIA 1+ /hpf Normal None Seen [facility] Comment on above: Order Comment: CLEAN CATCH Performed By: #### M 100.678, L400.0001 ####[facility] [address] [place], [address] WBC 10-25 SEEN Normal 0-5 [facility] Comment on above: Order Comment: CLEAN CATCH Performed By: #### M 100.678, L400.0001 ####[facility] [address] [place], [address] BILIRUBIN URINE Negative Normal Negative [facility] Comment on above: Order Comment: CLEAN CATCH Performed By: #### M 100.678, L400.0001 ####[facility] [address] [place], [address] Clarity (U) Clear Normal Clear [facility] Comment on above: Order Comment: CLEAN CATCH Performed By: #### M 100.678, L400.0001 ####[facility] [address] [place], [address] Color (U) Straw Normal Yellow [facility] Comment on above: Order Comment: CLEAN CATCH Performed By: #### M 100.678, L400.0001 ####[facility] [address] [place], [address] GLUCOSE, UR 1000 mg/dl Abnormal Normal [facility] Comment on above: Order Comment: CLEAN CATCH Performed By: #### M 100.678, L400.0001 ####[facility] [address] [place], [address] KETONE UR 5 mg/dl Abnormal Negative [facility] Comment on above: Order Comment: CLEAN CATCH Performed By: #### M 100.678, L400.0001 ####[facility] [address] [place], [address] LEUK ESTERASE 100 /ul Abnormal Negative [facility] Comment on above: Order Comment: CLEAN CATCH Performed By: #### M 100.678, L400.0001 ####[facility] [address] [place], [address] Nitrite Ql (U) Negative Normal Negative [facility] Comment on above: Order Comment: CLEAN CATCH Performed By: #### M 100.678, L400.0001 ####[facility] [address] [place], [address] OCCULT BLOOD-UR Negative Normal Negative [facility] Comment on above: Order Comment: CLEAN CATCH Performed By: #### M 100.678, L400.0001 ####[facility] [address] [place], [address] pH UR 7.0 Normal 5.0 - 8.0 [facility] Comment on above: Order Comment: CLEAN CATCH Performed By: #### M 100.678, L400.0001 ####[facility] [address] [place], [address] PROT DIPSTX 30 mg/dl Abnormal Negative [facility] Comment on above: Order Comment: CLEAN CATCH Performed By: #### M 100.678, L400.0001 ####[facility] [address] [place], [address] SP.GR. DIPSTX 1.010 Normal 1.002-1.030 [facility] Comment on above: Order Comment: CLEAN CATCH Performed By: #### M 100.678, L400.0001 ####[facility] [address] [place], [address] UROBILI Normal Normal Normal [facility] Comment on above: Order Comment: CLEAN CATCH Performed By: #### M 100.678, L400.0001 ####[facility] [address] [place], [address] EPI,SQUAMOUS 0 SEEN Normal 0-5 [facility] Comment on above: Order Comment: CLEAN CATCH Performed By: #### M 100.678, L400.0001 ####[facility] [address] [place], [address] Mucus Ql (Urine sed) 0 SEEN Normal [facility] Comment on above: Order Comment: CLEAN CATCH Performed By: #### M 100.678, L400.0001 ####[facility] [address] [place], [address] RBC 0 SEEN Normal 0-5 [facility] Comment on above: Order Comment: CLEAN CATCH Performed By: #### M 100.678, L400.0001 ####[facility] [address] [place], [address] Urine blood detectionOrdered By: Velasquez Morales on 10-27-2024 Urine Occult Blood Negative Negative [facility] Urine clarityOrdered By: Gregor Moarles on 10-27-2024 Clarity (U) Clear Clear [facility] Urine color determinationOrd ered By: Velasqeuz Morales on 10-27-2024 Color (U) Straw Yellow [facility] Urine cultureOrdered By: Gregor Morales on 10-27-2024 Bacteria identified Cx Nom (U) Mixed Gram Pos & Gram Neg Org Abnormal [facility] Urine leukocyte esterase det ection by dipstickOrdered By: Velasquez Morales on 10-27-2024 Leukocyte esterase Test strip Ql (U) 100 /ul High Negative [facility] Urine pHOrdered By: Velasquez Saab on 10-27-2024 pH (U) 7.0 [pH] 5.0 - 8.0 [facility] Urine sediment bacteria coun t by microscopy (number/high power field)Ordered By: Velasquez Morales on 10-27-2024 Bacteria LM.HPF (Urine sed) [#/Area] 1 /[HPF] None Seen [facility] Urine specific gravity measu rementOrdered By: Velasquez Morales on 10-27-2024 Specific gravity (U) [Rel density] 1.010 1.002-1.030 [facility] Urobilinogen Ql (U)Ordered B y: Velasquez Morales on 10-27-2024 Urine Urobilinogen Normal mg/dl Normal [facility] White blood cell countOrdere d By: Velasquez Morales on 10-27-2024 Urine WBC 10-25 SEEN /hpf 0-5 [facility] Wound Cultureon 10-27-2024 WC List Antibiotics Las [...] S Vancomycin Islt GAYLA <=0.5 S Normal [facility] Comment on above: Performed By: #### M 100.2000, M100.3000, M100.4001 ####[facility] [address] [facility] [place], [address] Gram Stainon 10-26-2024 List Antibiotics Las t 48 Hours? NONE List Antibiotics to be Started? NONE Gram Stain No organisms seen No cells seen Normal [facility] Comment on above: Performed By: #### M 100.2000, M100.3000, M100.4001 ####[facility] [address] [place], [address] Wound Ctr History AND Physic josé miguel 10-25-2024 Wound Ctr History & Physical [facility] [address] [place] [address] H P Exam - Wound Care 10/25/24 1711 MR#: [id number] Acct: [id number] Name: FLEX KLINE Rep #: [id number] : 1940 84 From: Rita Calixto NP [employer] PCP: Dr. Felix Montelongo MD Status:[facility] Location: History of Present Illness Date of [...] erythematous and dry but no open wounds. 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 Normal [facility] Absolute lymphocyte counton 06-29-2023 Lymphocytes Auto (Unsp spec) [#/Vol] 0.81 10*3/uL 0.83-4.51 [facility] Basophil percentageon 2022 Basophils/100 WBC (Bld) 0.2 % 0-1 [facility] Bilirubin [Mass/Vol] 0.80 mg/dL 0.20-1.00 [facility] Comment on above: For patients on eltr ombopag therapy, use of Dimension Ottertail TBIL is not recommended. Chloride [Moles/Vol] 101 mmol/L 98-107 [facility] Cholesterol [Mass/Vol] 170 mg/dL <200 [facility] Comment on above: <200 mg/dL Desirable 200-240 mg/dL Borderline >240 mg/dL High Risk Eosinophils/100 WBC (Bld) 3.3 % 0-5 [facility] Glucose [Mass/Vol] 119 mg/dL 74-106 [facility] Comment on above: Fasting Glucose resu lt from 100 to 125 mg/dL suggests IMPAIRED HOMEOSTASIS per A.D.A. criteria. Neutrophils (Bld) [#/Vol] 3.9 10*3/uL 2.0-7.7 [facility] Neutrophils/100 WBC (Bld) 70.4 % 47-70 [facility] Potassium [Moles/Vol] 4.8 mmol/L 3.5-5.1 [facility] Protein [Mass/Vol] 7.2 g/dL 6.4-8.2 [facility] Sodium [Moles/Vol] 134 mmol/L 136-145 [facility] Triglyceride [Mass/Vol] 57 mg/dL <199 [facility] Comment on above: The drugs N-Acetylcy steine and Metamizole may falsely depress this assay.Serum Triglycerides Reference Interval Normal <150 mg/dL Borderline high 150 - 199 mg/dL High 200 - 499 mg/dL Very High > or = 500 mg/dL WBC (Bld) [#/Vol] 5.5 10*3/uL 4.4-11.0 [facility] Blood erythrocytes count (nu mber/volume)on 06-29-2023 RBC (Bld) [#/Vol] 4.22 10*6/uL 4.6-6.2 [facility] Blood hemoglobin measurement (mass/volume)on 06-29-2023 Hemoglobin (Bld) [Mass/Vol] 14.4 g/dL 13.0-16.5 [facility] Blood lymphocytes/100 leukoc yteson 06-29-2023 Lymphocytes/100 WBC (Bld) 14.8 % 19-41 [facility] Blood monocytes/100 leukocyt eson 06-29-2023 Monocytes/100 WBC (Bld) 11.1 % 0-[address] [facility] Blood platelet mean volumeon 06-29-2023 Platelet mean volume (Bld) [Entitic vol] 9.7 fL 6.2-12.0 [facility] Determination of erythrocyte mean corpuscular volume (MCV)on 06-29-2023 MCV (RBC) [Entitic vol] 96.9 fL 80-[address] [facility] Hematocrit Auto (Bld) [Volum e fraction]on 06-29-2023 Hematocrit (Bld) [Volume fraction] 40.9 % 40-54 [facility] Laboratory - Chemistry and C hemistry - challengeon 06-29-2023 ALP [Catalytic activity/Vol] 59 U/L 45-117 [facility] ALT [Catalytic activity/Vol] 24 U/L 16-61 [facility] CO2 [Moles/Vol] 27.0 mmol/L 21.0-32.0 [facility] Globulin (S) [Mass/Vol] 3.3 g/dL 2.2-4.[address] [facility] Urea nitrogen/Creatinine [Mass ratio] 18.1 mg/mg 10-20 [facility] Laboratory - Hematology and Cell countson 06-29-2023 Erythrocyte distribution width (RBC) [Entitic vol] 42.5 fL 35.1-43.9 [facility] Erythrocyte distribution width (RBC) [Ratio] 11.9 % 11.6-14.6 [facility] Immature granulocytes/100 WBC (Bld) 0.200 % 0.0-0.9 [facility] Comment on above: IG% - Immature Granu locytes (promyelocytes, myelocytes and metamyelocytes) > 1% indicates that a LEFT SHIFT is Present. MCH (RBC) [Entitic mass] 34.1 pg 27.0-32.0 [facility] Nucleated RBC/100 WBC (Bld) [Ratio] 0 % 0-5 [facility] MCHC Auto (RBC) [Mass/Vol]on 06-29-2023 MCHC (RBC) [Mass/Vol] 35.2 g/dL 32-36 [facility] No Panel Informationon 06-29 Estimated GFR (MDRD) Amer 56 mL/min >60 [facility] Comment on above: GFR Calc Estimated GFR (MDRD) Non-Af Amer 46 mL/min >60 [facility] Comment on above: Non- GFR Calc Prostate Specific Antigen Screen 3.35 ng/mL 0.00-4.00 [facility] Comment on above: This test was perfor med using the TPSA assay method for [employer] chemistry system. Values obtained with differentassay methods cannot be used interchangably.When changing PSA assays in the course of monitoring apatient, additional sequential testing should be carriedout to confirm baseline values. Thyroid Stimulating Hormone (TSH) 4.85 uIU/mL 0.358-3.74 [facility] Urine Microalbumin/Creatinine Ratio 26.8 mg/g CRE <30 [facility] Platelets bldon 06-29-2023 Platelets (Bld) [#/Vol] 217 10*3/uL 150-450 [facility] Serum or plasma albumin jesenia urement (mass/volume)on 06-29-2023 Albumin [Mass/Vol] 3.9 g/dL 3.2-5.0 [facility] Serum or plasma albumin/glob ulin mass ratioon 06-29-2023 Albumin/Globulin [Mass ratio] 1.2 {ratio} 0.9-2.4 [facility] Serum or plasma calcium jesenia urement (mass/volume)on 06-29-2023 Calcium [Mass/Vol] 9.0 mg/dL 8.5-10.1 [facility] Serum or plasma cholesterol in HDL measurement (mass/volume)on 06-29-2023 Cholesterol in HDL [Mass/Vol] 56 mg/dL >40 [facility] Comment on above: The drugs N-Acetylcy steine and Metamizole may falsely depress this assay. Reference Range HDL <40 mg/dL Low HDL Cholesterol HDL >or= 60 mg/dL High HDL Cholesterol Serum or plasma cholesterol in VLDL measurement (mass/volume)on 06-29-2023 Cholesterol in VLDL [Mass/Vol] 11 mg/dL 5-40 [facility] Serum or plasma creatinine m easurement (mass/volume)on 06-29-2023 Creatinine [Mass/Vol] 1.55 mg/dL 0.70-1.30 [facility] Comment on above: The validity of the calculated GFR & GFRAA in patients over 70 years has not been determined. Clinical correlation is essential. Serum or plasma low density lipoprotein (LDL) cholesterol measurement (mass/volume)on 06-29-2023 Cholesterol in LDL [Mass/Vol] 103 mg/dL 0-130 [facility] Serum or plasma urea nitroge n measurement (mass/volume)on 06-29-2023 Urea nitrogen [Mass/Vol] 28 mg/dL 7-18 [facility] Thin prep Papanicolaou smear with manual screeningon 06-29-2023 Thin prep Papanicolaou smear with manual screening 21 U/L 15-37 [facility] Thin prep Papanicolaou smear with manual screening 6 5-15 [facility] Thin prep Papanicolaou smear with manual screening 32.2 mg/L NO RANGE EST. [facility] Urine creatinine measurement (mass/volume)on 06-29-2023 Creatinine (U) [Mass/Vol] 120.00 mg/dL NO RANGE EST. [facility] Whole blood hemoglobin A1c/t otal hemoglobin ratio (mass fraction)on 06-29-2023 HbA1c (Bld) [Mass fraction] 6.9 % 3.8-5.6 [facility] Comment on above: Normal < 5.7 % Predi abetic 5.7 - 6.4 % Diabetic >or= 6.5 % Please note range changes. Basophil percentageon 2021 Bilirubin [Mass/Vol] 0.70 mg/dL 0.20-1.00 [facility] Work Phone: Comment on above: For patients on eltr ombopag therapy, use of Dimension [place] TBIL is not recommended. Chloride [Moles/Vol] 100 mmol/L 98-107 [facility] Work Phone: Cholesterol [Mass/Vol] 180 mg/dL <200 [facility] Work Phone: Comment on above: <200 mg/dL Desirable 200-240 mg/dL Borderline >240 mg/dL High Risk Glucose [Mass/Vol] 138 mg/dL 74-106 [facility] Work Phone: Comment on above: Fasting Glucose resu lt greater than or equal to 126 mg/dL suggests DIABETES MELLITUS per A.D.A. criteria. Potassium [Moles/Vol] 4.4 mmol/L 3.5-5.1 [facility] Work Phone: Protein [Mass/Vol] 7.5 g/dL 6.4-8.2 [facility] Work Phone: Sodium [Moles/Vol] 135 mmol/L 136-145 [facility] Work Phone: Triglyceride [Mass/Vol] 54 mg/dL <[address] [facility] Work Phone: Comment on above: The drugs N-Acetylcy steine and Metamizole may falsely depress this assay.Serum Triglycerides Reference Interval Normal <150 mg/dL Borderline high 150 - 199 mg/dL High 200 - 499 mg/dL Very High > or = 500 mg/dL Laboratory - Chemistry and C hemistry - challengeon 06-04-2022 ALP [Catalytic activity/Vol] 66 U/L 45-117 [facility] Work Phone: ALT [Catalytic activity/Vol] 35 U/L 16-61 [facility] Work Phone: CO2 [Moles/Vol] 29.0 mmol/L 21.0-32.0 [facility] Work Phone: Globulin (S) [Mass/Vol] 3.4 g/dL 2.2-4.[address] [facility] Work Phone: Urea nitrogen/Creatinine [Mass ratio] 18.2 mg/mg 10-20 [facility] Work Phone: Laboratory - Hematology and Cell countson 06-04-2022 HbA1c (Bld) [Mass fraction] 6.9 % [facility] Work Phone: No Panel Informationon 06-04 Estimated GFR (MDRD) Amer 56 mL/min >60 [facility] Work Phone: Comment on above: GFR Calc Estimated GFR (MDRD) Non-Af Amer 46 mL/min >60 [facility] Work Phone: Comment on above: Non- GFR Calc Thyroid Stimulating Hormone (TSH) 4.27 uIU/mL 0.358-3.74 [facility] Work Phone: Urine Microalbumin/Creatinine Ratio 97.5 mg/g CRE <30 [facility] Work Phone: Serum or plasma albumin jesenia urement (mass/volume)on 06-04-2022 Albumin [Mass/Vol] 4.1 g/dL 3.2-5.0 [facility] Work Phone: Serum or plasma albumin/glob ulin mass ratioon 06-04-2022 Albumin/Globulin [Mass ratio] 1.2 {ratio} 0.9-2.4 [facility] Work Phone: Serum or plasma calcium jesenia urement (mass/volume)on 06-04-2022 Calcium [Mass/Vol] 9.0 mg/dL 8.5-10.1 [facility] Work Phone: Serum or plasma cholesterol in HDL measurement (mass/volume)on 06-04-2022 Cholesterol in HDL [Mass/Vol] 59 mg/dL >40 [facility] Work Phone: Comment on above: The drugs N-Acetylcy steine and Metamizole may falsely depress this assay. Reference Range HDL <40 mg/dL Low HDL Cholesterol HDL >or= 60 mg/dL High HDL Cholesterol Serum or plasma cholesterol in VLDL measurement (mass/volume)on 06-04-2022 Cholesterol in VLDL [Mass/Vol] 11 mg/dL 5-40 [facility] Work Phone: Serum or plasma creatinine m easurement (mass/volume)on 06-04-2022 Creatinine [Mass/Vol] 1.54 mg/dL 0.70-1.30 [facility] Work Phone: Comment on above: The validity of the calculated GFR & GFRAA in patients over 70 years has not been determined. Clinical correlation is essential. Serum or plasma low density lipoprotein (LDL) cholesterol measurement (mass/volume)on 06-04-2022 Cholesterol in LDL [Mass/Vol] 110 mg/dL 0-130 [facility] Work Phone: Serum or plasma urea nitroge n measurement (mass/volume)on 06-04-2022 Urea nitrogen [Mass/Vol] 28 mg/dL 7-18 [facility] Work Phone: Thin prep Papanicolaou smear with manual screeningon 06-04-2022 Thin prep Papanicolaou smear with manual screening 27 U/L 15-37 [facility] Work Phone: Thin prep Papanicolaou smear with manual screening 6 5-15 [facility] Work Phone: Thin prep Papanicolaou smear with manual screening 116.0 mg/L NO RANGE EST. [facility] Work Phone: Urine creatinine measurement (mass/volume)on 06-04-2022 Creatinine (U) [Mass/Vol] 119.00 mg/dL NO RANGE EST. [facility] Work Phone: Echocardiogramon 07-10-2021 Echocardiography [facility] [[email or web address]] , [address] [place] [address], [address], [place] [address] and TRANSTHORACIC ECHOCARDIOGRAM REPORT Patient Name: FLEX Dhaliwal Physician: [id number] Diamond Hammer MD Study Date: 07/10/2021 Referring Physician: DAVID BABCOCK MRN/PID: [id number] PCP: Accession/Order#: [id number] Department Location: [facility] Date of : 1940 Fellow: Gender: M Nurse: Admit Date: Ice Cream Chef: Tono Blake RDCS Admission Status: Outpatient Additional Staff: Height: 180.34 cm CC Report to: Weight: 81.65 kg Study Type: Echocardiogram BSA: 2.02 m2 Blood Pressure: 141 /77 mmHg Diagnosis/ICD: I25.10-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 Indication: Coronary artery disease Procedure/CPT: Echo Complete w Full Doppler-[id number] Patient History: Pertinent History: CAD s/p CABG [...] Antonia: 1.52 PulmV Sys Antonia: 48.61 cm/s [id number] Diamond Hammer MD Electronically signed on 07/10/2021 at 8:33:27 PM Final Normal [facility] Blood Pressure Cuff Sizeon 0 06-24-2021 Fall risk assessment b) One or more fall s in the last year [facility] Work Phone: Tobacco use status [facility] b) No [facility] Work Phone: Blood Pressure Cuff Size Adult [facility] Work Phone: Office Visit (Vascular [...] dominant, LM unclear, LCX moderate disease, 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 Was told by his primary road packer operator that he may need atherectomy to one [...] dominant, LM unclear, LCX moderate disease, 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 Was told by his primary road packer operator that he may need atherectomy to one of his vessels (?Cx). Additionally, it appears afterwards he had a MPI that demonstrated no inducible ischemia, normal LV size and function (low risk study) performed on 04-23-2021 and in response to this, it was decided that no further intervention was necessary. 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 Normal [place] Tobacco Screening.on 021 Fall risk assessment a) No falls within the last year [facility] [place] Work Phone: Tobacco use status [facility] b) No [facility] [address] [place] Work Phone: Vital Signs Date Time Vital Sign Value Performing Clinician Facility 2025 10:58-0400 Body height 176.5 cm Harjinder Jones MD Work Phone: [facility] 2025 10:58-0400 Body mass index (BMI) [Ratio] 26.2 kg/m2 Harjinder Jones MD Work Phone: [facility] 2025 10:58-0400 Body weight 81.65 kg Harjinder Jones MD Work Phone: [facility] 2025 10:58-0400 Diastolic blood pressure 60 mm[Hg] Harjinder Jones MD Work Phone: [facility] 2025 10:58-0400 Heart rate 82 /min Harjinder Jones MD Work Phone: [facility] 2025 10:58-0400 Respiratory rate 16 /min Harjinder Jones MD Work Phone: [facility] 2025 10:58-0400 SaO2% (BldA) [Mass fraction] 98 % Harjinder Jones MD Work Phone: [facility] 2025 10:58-0400 Systolic blood pressure 138 mm[Hg] Harjinder Jones MD Work Phone: [facility] 03-02-2025 10:37-0400 Body mass index (BMI) [Ratio] 26.2 kg/m2 Kwan Estrella MD Work Phone: [facility] 03-02-2025 10:37-0400 Body weight 81.65 kg Kwan Estrella MD Work Phone: [facility] 03-02-2025 10:37-0400 Diastolic blood pressure 63 mm[Hg] Kwan Estrella MD Work Phone: [facility] 03-02-2025 10:37-0400 Heart rate 69 /min Kwan Estrella MD Work Phone: [facility] 03-02-2025 10:37-0400 SaO2% (BldA) [Mass fraction] 99 % Kwan Estrella MD Work Phone: [facility] 03-02-2025 10:37-0400 Systolic blood pressure 113 mm[Hg] Kwan Estrella MD Work Phone: [facility] 02-27-2025 10:56-0400 Body height 180.[address] Felix Montelongo MD Work Phone: [facility] 02-27-2025 10:56-0400 Diastolic blood pressure 78 mm[Hg] Dr. Felix Montelongo MD Work Phone: [facility] 02-27-2025 10:56-0400 Heart rate 62 /min Dr. Felix Montelongo MD Work Phone: [facility] 02-27-2025 10:56-0400 SaO2% (BldA) [Mass fraction] 96 % Dr. Felix Montelongo MD Work Phone: [facility] 02-27-2025 10:56-0400 Systolic blood pressure 168 mm[Hg] Dr. Felix Montelongo MD Work Phone: [facility] 01-22-2025 13:41-0500 Body height 176.5 cm Harjinder Jones MD Work Phone: [facility] 01-22-2025 13:41-0500 Body mass index (BMI) [Ratio] 25.62 kg/m2 Harjinder Jones MD Work Phone: [facility] 01-22-2025 13:41-0500 Body weight 79.83 kg Harjinder Jones MD Work Phone: [facility] 01-22-2025 13:41-0500 Diastolic blood pressure 70 mm[Hg] Harjinder Jones MD Work Phone: [facility] 01-22-2025 13:41-0500 Heart rate 91 /min Harjinder Jones MD Work Phone: [facility] 01-22-2025 13:41-0500 Respiratory rate 14 /min Harjinder Jones MD Work Phone: [facility] 01-22-2025 13:41-0500 SaO2% (BldA) [Mass fraction] 97 % Harjinder Jones MD Work Phone: [facility] 01-22-2025 13:41-0500 Systolic blood pressure 156 mm[Hg] Harjinder Jones MD Work Phone: [facility] 11-30-2024 08:36-0500 Body height 180.[address] Felix Montelongo MD Work Phone: [facility] 11-30-2024 08:36-0500 Body mass index (BMI) [Ratio] 24.1 kg/m2 Dr. Felix Montelongo MD Work Phone: [facility] 11-30-2024 08:36-0500 Body weight 78.[address] Felix Montelongo MD Work Phone: [facility] 11-30-2024 08:36-0500 Diastolic blood pressure 72 mm[Hg] Dr. Felix Montelongo MD Work Phone: [facility] 11-30-2024 08:36-0500 Heart rate 93 /min Dr. Felix Montelongo MD Work Phone: [facility] 11-30-2024 08:36-0500 Respiratory rate 18 /min Dr. Felix Montelongo MD Work Phone: [facility] 11-30-2024 08:36-0500 Systolic blood pressure 138 mm[Hg] Dr. Felix Montelongo MD Work Phone: [facility] 11-01-2024 15:00-0500 Body temperature 97.6 [degF] Dr. Felix Montelongo MD Work Phone: [facility] 11-01-2024 15:00-0500 Diastolic blood pressure 54 mm[Hg] Dr. Felix Montelongo MD Work Phone: [facility] 11-01-2024 15:00-0500 Heart rate 76 /min Dr. Felix Montelongo MD Work Phone: [facility] 11-01-2024 15:00-0500 Respiratory rate 18 /min Dr. Felix Montelongo MD Work Phone: [facility] 11-01-2024 15:00-0500 SaO2% (BldA) [Mass fraction] 94 % Dr. Felix Montelongo MD Work Phone: [facility] 11-01-2024 15:00-0500 Systolic blood pressure 104 mm[Hg] Dr. Felix Montelongo MD Work Phone: [facility] 11-01-2024 06:00-0500 Body mass index (BMI) [Ratio] 24.3 kg/m2 Dr. Felix Montelongo MD Work Phone: [facility] 11-01-2024 06:00-0500 Body weight [address] Felix Montelongo MD Work Phone: [facility] 01-04-2024 15:09-0500 Body height 176.5 cm Rocío Denbow PA-C Work Phone: [facility] 01-04-2024 15:09-0500 Body weight 83.01 kg Rocío Denbow PA-C Work Phone: [facility] 01-04-2024 15:09-0500 Diastolic blood pressure 66 mm[Hg] Rocío Denbow PA-C Work Phone: [facility] 01-04-2024 15:09-0500 Heart rate 73 /min Rocío Denbow PA-C [facility] [place] 01-04-2024 15:09-0500 Respiratory rate 14 /min Rocío Denbow PA-C Work Phone: [facility] 01-04-2024 15:09-0500 SaO2% (BldA) [Mass fraction] 97 % Rocío Denbow PA-C Work Phone: [facility] 01-04-2024 15:09-0500 Systolic blood pressure 122 mm[Hg] Rocío Denbow PA-C Work Phone: [facility] 06-04-2022 08:28-0400 Body height 182.[address] Felix Montelongo Work Phone: [facility] Work Phone: 06-04-2022 08:28-0400 Body mass index (BMI) [Ratio] 26 kg/m2 Dr. Felix Montelongo Work Phone: [facility] Work Phone: 06-04-2022 08:28-0400 Body temperature 96.5 [degF] Dr. Felix Montelongo Work Phone: [facility] Work Phone: 06-04-2022 08:28-0400 Body weight 87.[address] Felix Montelongo Work Phone: [facility] Work Phone: 06-04-2022 08:28-0400 Diastolic blood pressure 76 mm[Hg] Dr. Felix Montelongo Work Phone: [facility] Work Phone: 06-04-2022 08:28-0400 Heart rate 58 /min Dr. Felix Montelongo Work Phone: [facility] Work Phone: 06-04-2022 08:28-0400 Respiratory rate 18 /min Dr. Felix Montelongo Work Phone: [facility] Work Phone: 06-04-2022 08:28-0400 SaO2% (BldA) [Mass fraction] 99 % Dr. Felix Montelongo Work Phone: [facility] Work Phone: 06-04-2022 08:28-0400 Systolic blood pressure 124 mm[Hg] Dr. Felix Montelongo Work Phone: [facility] Work Phone: 06-24-2021 13:44-0400 Body height 182.88 cm [facility] Work Phone: 06-24-2021 13:44-0400 Body mass index (BMI) [Ratio] 24.36 kg/m2 Referring Provider Unknown NG-Tupugnfjqz-Xbnf dview [facility] Work Phone: 06-24-2021 13:44-0400 Body surface area Derived from formula 2.04 m2 Referring Provider Unknown OR-Yrqbhnctrm-Tdfw dview [facility] Work Phone: 06-24-2021 13:44-0400 Body weight 81.47 kg Referring Provider Unknown KO-Lwsiviriph-Exbk dview [facility] Work Phone: 06-24-2021 13:44-0400 Diastolic blood pressure 75 mm[Hg] Referring Provider Unknown VD-Kpvgjlrfpx-Bsbp dview [facility] Work Phone: 06-24-2021 13:44-0400 Heart rate 81 /min Referring Provider Unknown QG-Auxngzltrh-Ygdi dview [facility] Work Phone: 06-24-2021 13:44-0400 Systolic blood pressure 138 mm[Hg] Referring Provider Unknown DB-Rqkcppcijf-Sdhg dview [facility] Work Phone: 06-24-2021 13:44-0400 0 1 Referring Provider Unknown ZO-Kygkktjfoh-Vliy dview [facility] Work Phone: Comment on above: [facility] 05-15-2021 11:29-0400 Body height 182.88 cm Referring Provider Unknown TX-Xvxtyoqamf-Cxay na 140 [place] Work Phone: 05-15-2021 11:29-0400 Body mass index (BMI) [Ratio] 24.28 kg/m2 Referring Provider Unknown EV-Sosivyhyqe-Ltda na 140 [place] Work Phone: 05-15-2021 11:29-0400 Body surface area Derived from formula 2.03 m2 Referring Provider Unknown WG-Wmocipjqgm-Cvxn na 140 [place] Work Phone: 05-15-2021 11:29-0400 Body weight 81.19 kg Referring Provider Unknown YF-Ctmfudqiir-Gbvj na 140 [place] Work Phone: 05-15-2021 11:29-0400 Diastolic blood pressure 86 mm[Hg] Referring Provider Unknown OL-Ehmrirsepa-Tfjj na 140 [place] Work Phone: 05-15-2021 11:29-0400 Heart rate 82 /min Referring Provider Unknown DL-Gwowvjwnmx-Zizx na 140 [place] Work Phone: 05-15-2021 11:29-0400 SaO2% (BldA) [Mass fraction] 94 % Referring Provider Unknown DC-Tgvxkzeffz-Xhvd na 140 [place] Work Phone: 05-15-2021 11:29-0400 Systolic blood pressure 180 mm[Hg] Referring Provider Unknown GH-Juehtazlxp-Mitb na 140 [place] Work Phone: 05-15-2021 11:29-0400 0 1 Referring Provider Unknown OX-Zcptykahqk-Kuxn na 140 [place] Work Phone: Comment on above: [facility] Encounters Encounter Date Encounter Type Care Provider Facility Start: 03-29-2025 ambulatory Buzz ZHANG Fa cility:[facility] Start: 03-29-2025 Registered Referred Buzz Rainey MD [facility] Start: 2025 End: 2025 ambulatory HAJRINDER JONES Facility:[facility] Start: 2025 End: 2025 Patient encounter procedure Harjinder Jones MD Work Phone: Cardiology Comment on above: Primary hypertension (Primary Dx); Coronary artery disease involving sokaogon coronary artery of sokaogon heart without angina pectoris Start: 03-02-2025 End: 03-02-2025 Patient encounter procedure Kwan Estrella MD Work Phone: [facility] Cardiology [place] Comment on above: Coronary artery dise ase involving sokaogon coronary artery of sokaogon heart, unspecified whether angina present (Primary Dx); PAC (premature atrial contraction); PVC (premature ventricular contraction); Atrial tachycardia (HCC) Start: 03-02-2025 End: 03-02-2025 ambulatory HARJINDER JONES Facility:[facility] Start: 03-01-2025 End: 03-01-2025 Departed Referred Buzz LeeShlomo Potter/Octavia Start: 02-28-2025 End: 03-01-[address] Felix Montelongo MD Work Phone: [facility] Work Phone: Start: 02-28-2025 End: 02-28-2025 Departed Referred Buzz LeeShlomo Ashraf Start: 02-27-2025 End: 02-27-[address] Ozzy Bro MD -[facility] Work Phone: Start: 02-27-2025 End: 02-28-2025 ambulatory Buzz ZHANG Facility:[facility] Start: 02-26-2025 End: 02-26-[address] Felix Montelongo MD Work Phone: [facility] Work Phone: Start: 02-26-2025 End: 02-26-2025 Patient encounter procedure Abeba Peacock SUPERVISOR ASSEMBLING-C -[facility] Work Phone: Start: 01-31-2025 End: 01-31-[address] Felix Montelongo MD Work Phone: [facility] Work Phone: Start: 01-31-2025 End: 01-31-2025 [facility] Start: 01-31-2025 End: 01-31-2025 ambulatory Buzz ZHANG Facility:[facility] Start: 01-22-2025 End: 01-22-2025 ambulatory HARJINDER JONES Facility:[facility] Start: 01-22-2025 End: 01-22-2025 ambulatory HARJINDER JONES Facility:[facility] Start: 01-22-2025 End: 01-22-2025 Patient encounter procedure Harjinder Jones MD Work Phone: Cardiology Comment on above: Palpitations (Primar y Dx); Diastolic congestive heart failure, unspecified HF chronicity (HCC); Atherosclerosis of sokaogon coronary artery of sokaogon heart without angina pectoris Start: 01-04-2025 End: 01-04-2025 Patient encounter procedure Abeba Peacock NP-C -[facility] Work Phone: Start: 01-04-2025 End: 01-04-2025 ambulatory Abeba Peacock NP Facility:[facility] Start: 01-04-2025 Registered Referred Buzz Potter/Octavia Start: 12-26-2024 End: 12-26-2024 ambulatory Buzz Rainey Facility:[facility] Start: 12-26-2024 End: 12-26-[address] [facility] Work Phone: Start: 12-21-2024 End: 12-21-2024 ambulatory Abeba Peacock NP Facility:[facility] Start: 12-21-2024 End: 12-21-2024 Patient encounter procedure Abeba Peacock NP-Tae -[facility] Work Phone: Start: 12-19-2024 End: 12-19-2024 ambulatory Buzz Rainey Facility:[facility] Start: 12-19-2024 End: 12-19-[address] [facility] Work Phone: Start: 12-07-2024 ambulatory Felix Montelongo Facility:[facility] Start: 12-07-2024 Registered Referred Buzz LeeShlomo Ashraf Start: 12-04-2024 End: 12-04-2024 ambulatory Abeba Peacock NP Facility:[facility] Start: 12-04-2024 End: 12-04-2024 Patient encounter procedure Abeba Peacock NP-Tae -[facility] Work Phone: Start: 12-02-2024 ambulatory Felixroosevelt Montelongo Facility:[facility] Start: 11-30-2024 End: 11-30-[address] Margie Gary MD -[place] Work Phone: Start: 11-30-2024 End: 11-30-2024 ambulatory Margie Gary Facility:[facility] Start: 11-30-2024 [facility] Start: 11-30-2024 Registered Referred Buzz Huddleston Start: 11-23-2024 ambulatory [facility] Facility:[facility] Start: 11-23-2024 Registered Referred Buzz Huddleston Start: 11-16-2024 ambulatory [facility] Facility:[facility] Start: 11-16-2024 Registered Referred Buzz Huddleston Start: 11-09-2024 ambulatory Alexandratamanna Rainey OLS Fa cility:[facility] Start: 11-09-2024 Registered Referred Buzz Huddleston Start: 11-07-2024 End: 11-07-2024 ambulatory Buzz De La Pazlavelle Facility:[facility] Start: 11-07-2024 End: 11-07-[address] Buzz Rainey MD -[facility] Work Phone: Start: 11-03-2024 ambulatory Alexandratamanna Rainey OLS Fa cility:[facility] Start: 11-03-2024 Registered Referred Buzz Huddleston Start: 11-02-2024 End: 11-02-2024 ambulatory Abeba Peacock SUPERVISOR ASSEMBLING Facility:[facility] Start: 11-02-2024 End: 11-02-2024 Patient encounter procedure Abeba Peacock SUPERVISOR ASSEMBLING-C -[facility] Work Phone: Start: 11-01-2024 Non-patient / Non-visit Dr. Sung Richardson [facility] Work Phone: Start: 10-31-2024 ambulatory Ozzy Bro [facility] Start: 10-31-2024 Non-patient / Non-visit Dr. Sung Richardson [facility] Work Phone: Start: 10-30-2024 Non-patient / Non-visit Dr. Sung [facility] Work Phone: Start: 10-29-2024 Non-patient / Non-visit Dr. Marilu Laurent [facility] Work Phone: Start: 10-28-2024 Non-patient / Non-visit Dr. Marilu Laurent [facility] Work Phone: Start: 10-28-2024 ambulatory Angela Ramirez Facility[facility] Start: 10-28-2024 Non-patient / Non-visit Dr. Angela gilmore MD -[facility] Start: 10-27-2024 ambulatory Sulma Romero Facility:[facility] Start: 10-27-2024 End: 11-01-2024 Evaluation and management of inpatient Dr. Sung Rhodes [facility] Work Phone: Start: 10-26-2024 End: 11-10-2024 [...] about it? Start: 10-25-2024 ambulatory Rita Calixto SUPERVISOR ASSEMBLING Fa cility:[facility] Start: 10-25-2024 End: 11-21-2024 ambulatory Rita Calixto NP Facility:[facility] Start: 09-11-2024 End: 09-11-2024 Refill Harjinder Jones MD Work Phone: [address] [place] [address] Comment on above: Refill Request Start: 02-01-2024 End: 02-01-2024 ambulatory Rocío Wagner PA-C Work Phone: [facility] [place] Comment on above: Controlled type 2 di abetes mellitus without complication, without long-term current use of insulin (HCC) (Primary Dx); Acquired hypothyroidism; Stage 3a chronic kidney disease (HCC); Parkinson's disease, unspecified whether dyskinesia present, unspecified whether manifestations fluctuate (HCC) Start: 02-01-2024 End: 02-01-2024 Telemedicine consultation with patient Rocío RODASTae Work Phone: [facility] Start: 01-05-2024 ambulatory Rocío Wagner ARMINDA Work Phone: [facility] [place] Comment on above: Roller thing. Would like a prescription to [facility]. Start: 01-05-2024 Telephone encounter Felix Montelongo MD Work Phone: [facility] [place] Comment on above: patient update on fa ll Start: 01-04-2024 End: 01-04-2024 Patient encounter procedure Rocío Cookroque HILLIARD Work Phone: [facility] [place] Comment on above: Controlled type 2 di abetes mellitus without complication, without long-term current use of insulin (HCC) (Primary Dx); Acquired hypothyroidism; Parkinson's disease, unspecified whether dyskinesia present, unspecified whether manifestations fluctuate; CIDP (chronic inflammatory demyelinating polyneuropathy) ([facility]); Essential tremor; Post herpetic neuralgia; Stage 3a chronic kidney disease (HCC) Start: 07-07-2023 End: 07-07-2023 ambulatory Marni Hudson MD Work Phone: Neurology Comment on above: Parkinson disease (H CC) (Primary Dx); Slow transit constipation Start: 07-07-2023 End: 07-07-2023 Telemedicine consultation with patient Marni Hudson MD Work Phone: [facility] Start: 06-29-2023 End: 06-29-2023 ambulatory [facility] Work Phone: Start: 06-29-2023 End: 06-29-2023 Patient encounter procedure [facility] Work Phone: Start: 02-19-2023 Telephone encounter Marni [...] encounter procedure Dr. Felix Montelongo Work Phone: [facility] Start: 06-04-2022 End: 06-04-[address] Felix Montelongo Work Phone: [facility] Endocrinology Start: 05-26-2022 Telephone encounter Marni whiting MD Work Phone: Neurology Comment on above: Opened In Error Start: 05-17-2022 E-mail encounter fro m caregiver Marni Hudson MD Work Phone: [facility] Start: 05-17-2022 Patient encounter procedure Marni Hudson MD Work Phone: Neurology Comment on above: Request an Appointme nt Start: 03-25-2022 Telephone encounter Marni whiting MD Work Phone: Neurology Comment on above: upcoming appointment (pre-rooming phone call) Start: 06-24-2021 Current tobacco non- user cad cap copd pv dm Referring Provider Unknown RD-Cdcvinjtcf-Tclexqkin [facility] Work Phone: Start: 05-15-2021 Patient encounter procedure Referring Provider Unknown ZY-Cbfugophzu-Kzigyv 140 [place] Work Phone: Start: 10-25-2018 Ambulatory KARI MANE Facility :[facility] Start: 02-23-2018 End: 02-23-2018 Ambulatory KARI MANE Facility:[facility] Start: 01-31-2018 Ambulatory NICOLA MAGAÑAPAL Facil ity:[facility] Procedures Date Procedure Procedure Detail Performing [...] to lateral CX per Dr. Garfield Dempsey, [facility] Cardiac catheterization Refe rring Provider Unknown Coronary artery bypass graft Referring Provider Unknown Plan of Treatment Date Care Activity Detail Author Start: 03-06-2026 End: 03-06-2026 Patient encounter procedure 03/06/2026 11:00 AM EDT Office Visit [facility] [address] [place] [address] Kwan Estrella MD [address] [place], [place] [id number] 1 yr f/u. eg [facility] Comment on above: 1 yr f/u. eg Start: 10-01-2025 End: 10-01-2025 Patient encounter procedure 10/01/2025 10:40 AM EST Office Visit Cardiology [address] [place] [address] Harjinder Jones MD [address] [place] [address] (Fax) 6 month follow up Cardiology Comment on above: 6 month follow up Start: 03-08-2025 Covid-19 Vaccine ( season) Covid-19 Vaccine ( season) [facility] Start: 2025 End: 2025 Patient encounter procedure 2025 11:00 AM EDT Office Visit Cardiology [address] [place] [address] Harjinder Jones MD [address] [place] [address] 6 weeek follow up Cardiology Comment on above: 6 weeek follow up Start: 01-22-2025 End: 04-23-2025 Natriuretic peptide.B prohormone N-Terminal [Mass/volume] in Serum or Plasma [facility] Comment on above: Expected: 01/22/2025 , Expires: 04/23/2025 Start: 01-22-2025 End: 04-23-2025 Thyrotropin [Units/volume] in Serum or Plasma [facility] Comment on above: Expected: 01/22/2025 , Expires: 04/23/2025 Start: 01-22-2025 End: 01-22-2025 Patient encounter procedure 01/22/2025 1:40 PM EST Office Visit Cardiology [address] [place] [address] Harjinder Jones MD [address] [place] [address] 6 month follow up from appt 11/29/23 Cardiology Comment on above: 6 month [facility] up [facility] 11/29/23 Start: 11-22-2024 Advance Directive Discussion Advance Directive Discussion [facility] Start: 11-01-2024 Patient discharge [facility] Start: 10-29-2024 Following clinical pathway protocol [facility] Start: 10-28-2024 Following clinical pathway protocol [facility] Start: 10-28-[address] [facility] Start: 10-27-2024 Following clinical pathway protocol [facility] Start: 10-27-2024 Assessment of risk o f venous thromboembolism [facility] Start: 10-27-2024 Care regimes management [facility] Start: 10-27-2024 Insertion of cathete r into peripheral vein [facility] Start: 10-27-2024 Measuring intake and output [facility] Start: 10-27-2024 Notification of physician [facility] Start: 10-27-2024 Providing care accor ding to standard [facility] Start: 10-27-2024 Provision of activit y privileges [facility] Start: 10-27-2024 Referral to occupati onal therapist [facility] Start: 10-27-2024 Referral to service [facility] Start: 10-27-2024 End: 10-27-2024 [facility] Start: 10-27-2024 Admission procedure [facility] Start: 07-23-2024 Covid-19 Vaccine () Covid-19 Vaccine () [facility] Start: 07-23-2024 Influenza vaccination Influenza Vacc ine (#1) [facility] Start: 03-13-2024 End: 06-12-2024 Thyrotropin [Units/volume] in Serum or Plasma TSH BLD Lab Routine Acquired hypothyroidism Expected: 03/13/2024, Expires: 06/12/2024 [facility] Work Phone: Comment on above: Expected: 03/13/2024 , Expires: 06/12/2024 Start: 02-01-2024 End: 05-02-2024 CBC W Auto Differential panel - Blood CBC + DIFF Lab Routine Stage 3a chronic kidney disease (HCC) Controlled type 2 diabetes mellitus without complication, without long-term current use of insulin (HCC) Parkinson's disease, unspecified whether dyskinesia present, unspecified whether manifestations fluctuate (HCC) Expected: 02/01/2024, Expires: 05/02/2024 [facility] Work Phone: Comment on above: Expected: 02/01/2024 , Expires: 05/02/2024 Start: 02-01-2024 End: 05-02-2024 Hemoglobin A1c in Blood HGB A1C Lab Routine Controlled type 2 diabetes mellitus without complication, without long-term current use of insulin (HCC) Expected: 02/01/2024, Expires: 05/02/2024 [facility] Work Phone: Comment on above: Expected: 02/01/2024 , Expires: 05/02/2024 Start: 01-04-2024 End: 04-04-2024 Basic metabolic 2000 panel - Serum or Plasma [facility] Work Phone: Comment on above: Expected: 01/04/2024 , Expires: 04/04/2024 Start: 01-04-2024 End: 04-04-2024 Thyrotropin [Units/volume] in Serum or Plasma [facility] Work Phone: Comment on above: Expected: 01/04/2024 , Expires: 04/04/2024 Start: 11-22-2023 Advance Directive Discussion Advance Directive Discussion [facility] Start: 11-22-2023 Depression Assessment Depression Ass essment [facility] Start: 07-23-2023 Influenza vaccination INFLUENZA (#1) [facility] Start: 06-29-2023 Adult depression screening assessment DEPRESSION SCREENING [facility] Start: 01-19-2023 COVID-19 VACCINE (6 - Pfizer series) COVID-19 VACCINE (6 - Pfizer series) [facility] Start: 11-22-2022 ADVANCE DIRECTIVE DISCUSSION ADVANCE DIRECTIVE DISCUSSION [facility] Start: 11-22-2022 DEPRESSION ASSESSMENT DEPRESSION ASS ESSMENT [facility] Start: 09-24-2022 Adult depression screening assessment DEPRESSION SCREENING [facility] Start: 07-23-2022 Influenza vaccination INFLUENZA (#1) [facility] Start: 06-04-2022 Testosterone [facility] Work Phone: Start: 05-01-2022 COVID-19 VACCINE (5 - Booster for Pfizer series) COVID-19 VACCINE (5 - Booster for Pfizer series) [facility] Start: 12-15-2021 COVID-19 VACCINE (4 - Booster for Pfizer series) COVID-19 VACCINE (4 - Booster for Pfizer series) [facility] Start: 11-22-2021 ADVANCE DIRECTIVE DISCUSSION ADVANCE DIRECTIVE DISCUSSION [facility] Start: 11-22-2021 DEPRESSION ASSESSMENT DEPRESSION ASS ESSMENT [facility] Start: 07-10-2021 ECHO, Provider: MG JACEY CARD, Status: Pen, Time: 10:00 AM KD-Ezzwicahoe-Mnnia view [facility] Work Phone: Start: 02-23-2019 Hepatitis B surface antibody level LDL CHOLESTEROL [facility] Start: 10-28-2016 Pneumococcal Vaccine : 50+ (2 of 2 - PPSV23) Pneumococcal Vaccine: 50+ (2 of 2 - PPSV23) [facility] Start: 10-28-2016 Pneumococcal Vaccine : 65+ (2 of 2 - PPSV23 or PCV20) Pneumococcal Vaccine: 65+ (2 of 2 - PPSV23 or PCV20) [facility] Start: 09-13-2012 Urine microalbumin profile DTaP,Tdap,Td Vaccine (1 - Tdap) [facility] Start: 07-11-2010 Urine microalbumin profile DTAP,TDAP,TD (1 - Tdap) [facility] Start: 2007 PNEUMOVAX AGE 65 AND OVER WITH 5YR LOOKBACK (#1) PNEUMOVAX AGE 65 AND OVER WITH 5YR LOOKBACK (#1) [facility] Start: 1992 SHINGRIX VACCINE (1 of 2) HINTON GRIX VACCINE (1 of 2) [facility] Start: 1960 ANNUAL PCP TEAM FEED RESEARCH TECHNICIAN BRYCE DISEASE VISIT ANNUAL PCP TEAM CHRONIC DISEASE VISIT [facility] Start: 1960 Anxiety Screening Anxiety Screening [facility] Start: 1960 Depression Screening Depression Scre ening [facility] Start: 1952 3 comp foot exam completed DIABETIC FOOT EXAM [facility] Start: 1952 Diabetic foot examination Diabetic F oot Exam [facility] Start: 1952 Glaucoma screening Dilated Retinal E xam [facility] Start: 1952 Hepatitis B screening URINE AL BUMIN:CREATININE RATIO [facility] Start: 1952 Hepatitis C antibody , confirmatory test DILATED RETINAL EXAM [facility] Start: 1948 PNEUMOCOCCAL: 65+ (1 - PCV) PNEUMOCOCCAL: 65+ (1 - PCV) [facility] Start: 1947 Hemoglobin A1c measurement HbA1C [facility] Start: 1947 Hemoglobin A1c/Hemoglobin.total in Blood HBA1C [facility] NM Heart Views W str ess and W radionuclide IV [facility] OUTSIDE VENDOR CARDI AC OUTPATIENT EXTENDED RHYTHM RECORDING (WITHOUT TELEMETRY) OUTSIDE VENDOR CARDIAC OUTPATIENT EXTENDED RHYTHM RECORDING (WITHOUT TELEMETRY) Holter Routine Palpitations Ordered: 01/22/2025 [facility] Work Phone: Comment on above: Ordered: 01/22/2025 Patient Education Urinary Tract Infections in Men UTIs Chest Pain [facility] Work Phone: Patient referral [facility] Work Phone: T4 free measurement [facility] Work Phone: Testosterone Free [Mass/volume] in Serum or Plasma [facility] Work Phone: Testosterone measurement [facility] Work Phone: [facility] Immunizations Immunization Date Immunization Notes Care Provider [facility] 09-13-2023 influenza virus vaccine, unspecified formulation Harjinder Jones MD Work Phone: [facility] 09-23-2020 influenza, injectabl e, quadrivalent, preservative free [facility] 09-23-2020 influenza, seasonal, injectable Dr. Felix Montelongo Work Phone: [facility] Work Phone: 09-05-2014 pneumococcal conjuga te vaccine, [address] Felix Montelongo Work Phone: [facility] 07-23-2014 influenza, injectabl e, quadrivalent, preservative free [facility] 07-23-2014 influenza, seasonal, injectable Dr. Felix Montelongo Work Phone: [facility] Work Phone: 07-10-2010 tetanus and diphther ia toxoids, adsorbed, preservative free, for adult use (2 Lf of tetanus toxoid and 2 Lf of diphtheria toxoid) Marni Hudson MD Work Phone: [facility] Work Phone: 08-22-2007 pneumococcal conjuga te vaccine, 7 valent Marni Hudson MD Work Phone: [facility] Payers Date Payer Category Payer Self-pay [id number] 2022 Medicare [employer] [id number] 2022-Present [phone] PO [address] [place] [address] O [id number] 2022 [place] Care[place] [id number] 2022 Medicare [id number] 2020 Medicare AETNA MEDICARE A ETNA MEDICARE PPO [id number] 2020-Present [phone] [address] [place] [address] O [id number] .[id number] 2016 Medicare [id number] Private Health Insurance [id number] Private Health Insurance UTB [id number] Private Health Insurance [id number] Unknown AETNA Unknown [id number] 2..1.585781.3.579 .2.462 Unknown [id number] 2.1.620836.3.579 .2.462 Unknown [id number] 2.0.1.722925.3.579 .2.462 Unknown [id number] 2.16840.1.709598.3.579 .2.462 Unknown [id number] 2.16840.1.391380.3.579 .2.462 Unknown [id number] 2.16.840.1.031862.3.579 .2.462 Unknown [id number] 2.840.1.014750.3.579 .2.462 Unknown [id number] 2.840.1.153859.3.579 .2.462 Unknown [id number] 2.840.1.535161.3.579 .2.462 Unknown [id number] 2.840.1.382651.3.579 .2.462 Unknown [id number] 2.840.1.059969.3.579 .2.462 Unknown [id number] 2.840.1.109028.3.579 .2.462 Unknown [id number] 2.840.1.166856.3.579 .2.462 Unknown [id number] 2.840.1.040743.3.579 .2.462 Unknown [id number] 2.840.1.907580.3.579 .2.462 Unknown [id number] 2.840.1.524167.3.579 .2.462 Unknown [id number] 2.840.1.714059.3.579 .2.462 Unknown [id number] 2.840.1.127888.3.579 .2.462 Unknown [id number] 2.840.1.865153.3.579 .2.462 Unknown [id number] 2.840.1.384013.3.579 .2.462 Unknown [id number] 2.840.1.315668.3.579 .2.462 Unknown [id number] 2.16.840.1.422510.3.579 .2.462 Unknown [id number] 2.16.840.1.391311.3.579 .2.462 Unknown [id number] 2.16.840.1.787076.3.579 .2.462 Unknown [id number] 2.16.840.1.784351.3.579 .2.462 Unknown [id number] 2.16.840.1.823845.3.579 .2.462 Unknown [id number] 2.16.840.1.817578.3.579 .2.462 Unknown [id number] 2.16.840.1.166480.3.579 .2.462 Social History Date Type Detail Facility Start: 06-29-2022 End: 11-09-2024 Tobacco smoking status NHIS Never smoked tobacco [facility] Start: 10-20-2021 End: 2025 Alcohol intake Lifetime non-drinker (finding) [facility] Start: 09-25-2021 History SDOH Alcohol Frequency 1 [facility] Start: 1940 Sex Assigned At Not on file [facility] Start: 06-04-2022 End: 05-07-2023 Tobacco smoking status IDIS Unknown if ever smoked [facility] Start: 04-21-[address] [facility] Start: 04-21-2021 Non-smoker [facility] Start: 1940 Sex Assigned At Male [facility] Start: 06-29-2022 Tobacco use and exposure Smokeless tobacco non-user [facility] Start: 06-19-2022 End: 06-29-2022 Exposure to SARS-CoV-2 (event) Not sure [facility] Start: 06-29-2022 End: 07-07-2023 History of Social function [facility] Start: 06-29-2022 End: 07-07-2023 Tobacco use panel [facility] Adult Depression Screening Assessment 2 [facility] Start: 07-28-2018 Spouse/ Signif icant Other [facility] Start: 02-23-2025 Sex Male (finding) [facility] Medical Equipment Procedure Code Equipment Code Equipment [...] Assessment Result Facility 11-01-2024 Functional status Ambulates [facility] Work Phone: 04-23-2021 Are you deaf, or do you have serious difficulty hearing No 04/23/2021 5:34 PM Randi Scott, LINSEY No [facility] 04-23-2021 Are you blind, or do you have serious difficulty seeing, even when wearing glasses No 04/23/2021 5:34 PM Randi Scott, LINSEY No [facility] 04-23-2021 Do you have serious difficulty walking or climbing stairs No 04/23/2021 5:34 PM Randi Scott, LINSYE No [facility] 04-23-2021 Do you have difficul ty dressing or bathing No 04/23/2021 5:34 PM Randi Scott, LINSEY No [facility] 04-23-2021 Because of a physica l, mental, or emotional condition, do you have difficulty doing errands alone such as visiting a physician's office or shopping No 04/23/2021 5:34 PM Randi Scott RN No [facility] Mental Status Date Assessment Result Facility 11-01-2024 Cognitive function Voice/Name [facility] Work Phone: 04-23-2021 Because of a physica l, mental, or emotional condition, do you have serious difficulty concentrating, remembering, or making decisions No 04/23/2021 5:34 PM Randi Scott RN No [facility] Clinical Notes 03-25-2022 to 2025 Harjinder Jones MD - 2025 12:12 PM EDTPatient Kwan Chand MD - 03/02/2025 10:20 AM EDT Note Date & Type Note Facility 2025 Note HNO ID: [id number] Author: HARJINDER JONES MD Service: ? Author Type: Physician Type: Progress Notes Filed: 2025 12:16 Note Text: Harjinder Jones MD Interventional Cardiology [address] [place], [place] [id number] [phone] Chief Complaint Patient presents with: Follow Up: 6 week follow up, c/o chest pain HISTORY OF PRESENT ILLNESS: Mr. Kline is a 85 year old male seen in my office today for follow-up patient had a prior history of severe sokaogon coronary artery disease with prior history of [...] for this visit. (more content not included)... [facility] 2025 History of Present illness Narrative Images from the original note were not included. Harjinder Jones MD Interventional Cardiology [address] [place] [id number] [phone] Chief Complaint Patient presents with: Follow Up: 6 week follow up, c/o chest pain HISTORY OF PRESENT ILLNESS: Mr. Kline is a 85 year old male seen in my office today for follow-up patient had a prior history of severe sokaogon coronary artery disease with prior history of [...] Value 01/22/2025 12.8 07/14/2018 Test sent to [facility]. Hematocrit (%) Date Value 01/22/2025 37.7 07/14/2018 Test sent to [facility]. WBC (k/uL) Date Value 01/22/2025 5.09 07/14/2018 Test sent to [facility]. Platelet Count (k/uL) Date Value 01/22/2025 216 07/14/2018 Test sent to [facility]. BMP: Glucose (mg/dL) Date Value 01/22/2025 171 [...] Ref Range Status 02/23/2018 Test sent to [facility]. <200 mg/dL Final Comment: Account Credited HIDE HDL Cholesterol Date Value Ref Range Status 02/23/2018 Test sent to [facility]. >39 mg/dL Final Comment: Account Credited [facility]IDE LDL Cholesterol Date Value Ref Range Status 02/23/2018 Test sent to [facility]. <100 mg/dL Final Comment: Account Credited [facility]IDE Triglyceride Date Value Ref Range Status 02/23/2018 Test sent to [facility]. <150 mg/dL Final Comment: Account Credited HIDE [...] aerobic exercise 2. Coronary artery disease involving sokaogon coronary artery of sokaogon heart without angina pectoris - ICD9: 414.01, [...] correct any errors. documented in this encounter [facility] 03-02-2025 Instructions Kwan Estrella MD - 03/02/2025 [...] at that time. documented in this encounter [facility] 03-02-2025 History of Present illness Narrative Images from the original note were not included. [facility] [place] [facility] SECTION OF CARDIAC PACING and ELECTROPHYSIOLOGY OUTPATIENT VISIT DATE March 02, 2025 OUTPATIENT VISIT TYPE NEW PRIMARY CARE PHYSICIAN: Vincent Espinosa [address] [place] [address] REFERRING PHYSICIAN: Harjinder Jones [address] [facility], [address] [facility] [address] chief complaint on file. HISTORY OF PRESENT [...] currently a resident at [facility]. Had a recent UTI in 10/2024, still [...] fibrillation ECG 11/29/23 - SR 77 bpm NV 210 QRS 102 QT/c 364 411 PVC [...] rare (<1.0%). Isolated VEs were rare (<1.0%, 21612), VE Couplets were rare (<1.0%, 63), and [...] hands EKG 03/02/25 .Sinus rhythm 68 bpm NV 264ms First degree AVB QRS 96ms QT/c [...] MD This note was partially generated using Shipu voice recognition system. documented in this encounter [facility] 03-02-2025 Note HNO ID: [id number] Author: KWAN ESTRELLA MD Service: ? Author Type: Physician Type: Progress Notes Filed: 03/02/2025 11:18 Note Text: [facility] [place] [facility] SECTION OF CARDIAC PACING and ELECTROPHYSIOLOGY OUTPATIENT VISIT DATE March 02, 2025 OUTPATIENT VISIT TYPE NEW PRIMARY CARE PHYSICIAN: Vincent Espinosa [address] [place] [address] REFERRING PHYSICIAN: Harjinder Jones [address] [place] [address], [address] [facility] [address] chief complaint on file. HISTORY OF PRESENT [...] currently a resident at [facility]. Had a recent UTI in 10/2024, still [...] fibrillation ECG 11/29/23 - SR 77 bpm NV 210 QRS 102 QT/c 364 411 PVC [...] rare (<1.0%). Isolated VEs were rare (<1.0%, 34707), VE Couplets were rare (<1.0%, 63), and [...] No social hist (more content not included)... [facility] 02-27-2025 Evaluation note Diagnosis Onset Date Resolution Type 2 diabetes mellitus acute February 27, 2025 10:51am CAD (coronary artery disease) chronic February 27, 2025 10:51am CKD (chronic kidney disease) chronic February 27, 2025 10:51am [facility] Work Phone: [phone] 264-729903-03-2025 NoteHNO ID: [id number] Author: BLANCA MARCELINO LPN Service: ? Author Type: LICENSED NURSE Type: Progress Notes Filed: 01/22/2025 15:05 Note Text: EVENT MONITOR DISPOSABLE PATCH INSTRUCTIONS Patient Name: Flex Kline [facility] Number: [id number] Skin prepped and cleansed with alcohol Patch secured to prepped area Monitor Activated Serial #: [id number] Patient Instructed: Prescribed order timeframe Bathing guidelines Usage of event button and diary documentation Return of monitor at the end of prescribed order Call with problems [phone] or [phone]. [phone] Patient expresses a good understanding of instructions [facility] History of Present illness Narrative* Blanca Marcelino LPN - 01/22/2025 3:04 PM EST EVENT MONITOR DISPOSABLE PATCH INSTRUCTIONS Patient Name: Flex Kline Clinic Number: [id number] Skin prepped and cleansed with alcohol Patch secured to prepped area Monitor Activated Serial #: [id number] Patient Instructed: Prescribed order timeframe Bathing guidelines Usage of event button and diary documentation Return of monitor at the end of prescribed order Call with problems [phone] or [phone]. [phone] Patient expresses a good understanding of instructions Blanca Marcelino LPN * Harjinder Jones MD - 01/22/2025 2:34 PM EST Images from the original note were not included. Harjinder Jones MD Interventional Cardiology [address] [place] [phone] Chief Complaint Patient presents with: Follow Up: [...] Value 04/22/2021 12.5 07/14/2018 Test sent to [facility]. Hematocrit (%) Date Value 04/22/2021 36.8 07/14/2018 Test sent to [facility]. WBC (k/uL) Date Value 04/22/2021 5.50 07/14/2018 Test sent to [facility]. Platelet Count (k/uL) Date Value 04/22/2021 197 07/14/2018 Test sent to [facility]. BMP: Glucose (mg/dL) Date Value 01/04/2024 130 [...] Ref Range Status 02/23/2018 Test sent to [facility]. <200 mg/dL Final Comment: Account Credited HIDE HDL Cholesterol Date Value Ref Range Status 02/23/2018 Test sent to [facility]. >39 mg/dL Final Comment: Account Credited HIDE LDL Cholesterol Date Value Ref Range Status 02/23/2018 Test sent to [facility]. <100 mg/dL Final Comment: Account Credited HIDE Triglyceride Date Value Ref Range Status 02/23/2018 Test sent to [facility]. <150 mg/dL Final Comment: Account Credited HIDE [...] to check his BMP 3. 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 A reasonable attempt has been made to correct any errors. documented in this encounterReg[facility]03-[facility]-2025 NoteHNO ID: [id number] Author: HARJINDER JONES MD Service: ? Author Type: Physician Type: Progress Notes Filed: 01/22/2025 14:39 Note Text: Harjinder Jones MD Interventional Cardiology [address] [place] [address] [phone] Chief Complaint Patient presents with: Follow Up: [...] loss, nosebleeds, sinus concepcion (more content not included)...[facility] 01-22-2025 NoteHNO ID: [id number] Author: HARJINDER JONES MD Service: ? Author [...] rare (<1.0%). Isolated VEs were rare (<1.0%, 17077), VE Couplets were rare (<1.0%, 63), and VE Triplets were rare (<1.0%, 19). Ventricular Bigeminy and Trigeminy were present. Difficulty discerning atrial activity making definitive diagnosis difficult to ascertain.[facility]01-09-2025 Evaluation note* Diagnosis Onset Date Resolution Status [...] kidney disease) chronic February 27, 2025 10:51am [facility] Work Phone: 1(768) 139-599412-20-2024 Telephone encounter Note* Telephone Encounter - Florence Reed MA - 11/10/2024 11:09 AM EST Called pt to offer appt on cancellation list. Pt is currently in rehab facility and unable to come.Will call once he is out if needs to be seen sooner. Florence Reed MA [facility]12-20-2024 Miscellaneous Notes* Telephone Encounter - Florence Reed [...] Ana Laura Rosario RN documented in this encounterRegency Hospital [facility]12-13-2024 Telephone encounter Note * Telephone Encounter - Ana Laura Rosario RN - 11/03/2024 9:09 AM EST Called and left VM asking the patient to call back to schedule and office visit. If patient calls back please offer 11/13/24 at 1:20pm or 11/27/24 at 1:20pm and ask for an update on the patient's symptoms. Ana Laura Rosario RN [facility]12-11-2024 [facility] Medical Records Department [address] [place] [address] Discharge Summary 11/01/24 1501 MR#: [id number] Acct: [id number] Name: FLEX KLINE Rep #: [id number] : 1940 84 From: Sung Rhodes DO PCP: Dr. Felix Montelongo MD Status:ADM IN Location: [place] [address] Providers Date of Admission: 10/27/24 Primary Care [...] on Synthroid VTE prophylaxis: LMWH Disposition: to [facility] pending insurance authorization. 10/31: Talked about [...] years or YOUNGER s (more content not included)...[facility]12-06-2024 Evaluation note* Diagnosis Onset Date Resolution Status [...] 2018 chr onic November 30, 2024 9:59am [facility] Work Phone: 1(729) 838-971812-05-2024 Telephone encounter Note* Telephone Encounter - Ana [...] it? Please Advise Ana Laura Rosario RN [facility]10-21-2024 Telephone encounter Note* Telephone Encounter - Ruth [...] Ruth Ann September 11, 2024 8:46 AM [facility]10-21-2024 Miscellaneous Notes* Telephone Encounter - Ruth Ann [...] 11, 2024 8:46 AM documented in this encounterRegency Hospital [facility]03-12-2024 History of Present illness Narrative* Rocío Wagner PA-C - 02/01/2024 3:01 PM EDT This Team Access Model visit is a phone encounter. It required patient-provider interaction for themedical decision making as documented below. Patient agrees to the visit: Yes Patient Location: [place] I have communicated my name and active licensure. The patient's identity and physical location wereverified at the time of this visit. Either the patient or their legal technical sales representative has been informed of the risks and [...] Parkinson's and associated tremors. Last A1c at [facility] was in 07/14 was 6.9. REVIEW OF [...] Rocío Wagner PA-C documented in this encounterCleveland [id number] Miscellaneous Notes* Telephone Encounter - Juliana Choi [...] pt. Florence Santos LPN documented in this encounterRegency [facility]02-14-2024 Miscellaneous Notes* Telephone Encounter - Rocío Wagner [...] prescription? Rocío Wagner PA-C documented in this encounterRegency Hospital [facility]02-13-2024 History of Present illness Narrative* Rocío Wagner [...] GFR 46 from most recent labs through [facility] in 07/14. Does not see a animal scientist. REVIEW OF SYSTEMS See HPI All other [...] complication, without long-term current use of insulin ([facility]) - ICD9: 250.00, ICD10: E11.9 (primary diagnosis) [...] PNL 4. CIDP (chronic inflammatory demyelinating polyneuropathy) ([facility]) - ICD9: 357.81, ICD10: G61.81 See above [...] plan. Rocío Wagner PA-C documented in this encounterRegency Hospital [facility]08-16-2023 Instructions* Patient Instructions* Marni Hudson MD - [...] or you can send a message through [employer]. You can also now schedule and select appointments through [employer]. Marni Hudson MD Constipation and Other Gastrointestinal [...] future constipation. Treatments fall into two categories: tpwu-mme-busfzxb and prescription therapies. Remember: consult with your [...] day and your own convenience and preference. Hhve-cgi-Qnshyyl Products Inrz-ayt-vqfsiav treatments for constipation can be purchased at [...] It also comes as a capsule (Senna Trinidad Smooth Move ). ving with PD Constipation [...] easier to pass. These can be used buttermilk drier operator but should not be used in combination [...] after other remedies have failed. Among the lugs-srw-lnzblqc laxatives, they are most likely to cause [...] psyllium (Perdiem ). Common Side Effects of Amiu-xrt-Fawopqu Products for Constipation Emollient (Stool Softeners) Skin [...] any side effects listed. Prescription Products When pmfq-wmn-xljukkp remedies fail, your healthcare provider may recommend [...] Stimulant X Bisacodyl (Dulcolax ) Stimulant X Hadley Oil Stimulant X Cellulose (Unifiber ) Bulk [...] Docusate (Senokot ) Stimulant X Adapted from: [facility] Website, accessed March 17, 2016, www.RidePost/health/druginformation/ [email or web address] Special Precautions For your safety, consult your [...] For more information and resources see https://www.parkinson.org/. [facility] is a Center of Excellence for the Parkinson s Foundation. documented in this encounterRegency Hospital [facility]08-16-2023 History of Present illness Narrative* Marni Hudson MD - 07/07/2023 7:02 AM EDT [facility] - FOLLOW UP EVALUATION - VIRTUAL VISIT Felix Montelongo MD [address] [facility] [address] Dear Felix Montelongo MD: I had the pleasure of seeing Mr. Kline for follow-up today. As you know he is a 83 year old right-handed male with a history of ET/PD since 2015(?) . Also with CIDP diagnosed 2012. Off treatment since 2017. He is seen alone. We had a visit using: [employer] I have communicated my name and active licensure. The patient's identity and physical location wereverified at the time of this visit. Either the patient or their legal technical sales representative has been informed of the risks and [...] to schedule and only given options of [facility] or [place]. Open to [facility]. Constipation. Prunes used [...] 1 1 1 Level of service : 15903 (40-54 min). Time spent 41 min on the day of service, which included preparing to see the patient, ylov-he-kgpu patient care, completing clinical documentation, and counseling and educating the patient/family/caregiver. Thank you for allowing me to be part of the clinical care of this patient! I look forward to continued participation in the patient s care with you. Please do not hesitate to call with any questions. Sincerely, Marni Hudson MD documented in this encounterRegency Hospital [facility]03-31-2023 Miscellaneous Notes* Telephone Encounter - Caitlin Peacock MA - 02/19/2023 7:56 AM EDT Message therapy order mailed to patient home per Dr. Hudson request documented in this encounterRegency Hospital [facility]03-31-2023 Instructions* Patient Instructions* Marni Hudson MD - [...] or you can send a message through [employer]ent. You can also now schedule and select appointments through [employer]. Marni Hudson MD documented in this encounterRegency Hospital [facility]03-31-2023 History of Present illness Narrative* Marni Hudson MD - 02/19/2023 7:02 AM EDT [facility] - FOLLOW UP EVALUATION - VIRTUAL VISIT Felix Montelongo MD, MD [address] [facility] [address] Dear Felix Montelongo MD, : I had the pleasure of seeing Mr. Kline for follow-up today. As you know he is a 82 year old right-handed male with a history of ET/PD since 2015(?) . 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 We had a visit using: [employer] I have communicated my name and active licensure. The patient's identity and physical location wereverified at the time of this visit. Either the patient or their legal technical sales representative has been informed of the risks and [...] 1 1 1 Level of service : 61835 ( 30-39 min). Time spent 30 min on the day of service, which included preparing to see the patient, ravk-jj-gfxq patient care, completing clinical documentation, counseling and educating the patient/family/caregiver, and ordering medications, tests, or procedures. Thank you for allowing me to be part of the clinical care of this patient! I look forward to continued participation in the patient s care with you. Please do not hesitate to call with any questions. Sincerely, Marni Hudson MD documented in this encounterRegency Hospital [facility]01-27-2023 Instructions* Patient Instructions* Marni Hudson MD - [...] or you can send a message through [employer]. You can also now schedule and select appointments through [employer]. Marni Hudson MD documented in this encounterRegency Hospital [facility]01-27-2023 History of Present illness Narrative* Marni Hudson MD - 12/18/2022 6:56 AM EST [facility] - FOLLOW UP EVALUATION - VIRTUAL VISIT Felix Montelongo MD, [address] [facility] [address] Dear Felix Montelongo MD, : I had the pleasure of seeing Mr. Kline for follow-up today. As you know he is a 82 year old right-handed male with a history of ET/PD since 2016(?) . Also with CIDP diagnosed 2012. Off treatment since 2017. He is seen with a daughter. We had a visit using: [employer] I received consent from the patient to [...] 6 usually representing mild (5-9) depression. Anxiety: IONAA-7 Total Score: 4 usually representing no significant [...] 1 1 1 Level of service : 81532 (40-54 min). Time spent 51 min on the day of service, which included preparing to see the patient, kszq-dz-ymcv patient care, completing clinical documentation, and counseling and educating the patient/family/caregiver. Thank you for allowing me to be part of the clinical care of this patient! I look forward to continued participation in the patient s care with you. Please do not hesitate to call with any questions. Sincerely, Marni Hudson MD documented in this encounterRegency Hospital [facility]12-21-2022 Miscellaneous Notes* Telephone Encounter - Jazzy Bonds - 11/11/2022 9:17 AM EST Last FUV Jun 2022 with KA. Next FUV 12/17/22 with KA. documented in this encounterRegency Hospital [facility]07-05-2022 Miscellaneous Notes* Telephone Encounter - Marlena Moya - 05/26/2022 1:[address] Hudson had an opening on 06/03/22. Added patient to schedule; notified him of appt details via voicemail and Arrayent message. Marlena Moya * Telephone Encounter - [...] 9:06 AM Routing comment documented [facility] Miscellaneous Notes* Telephone Encounter - Sharron Higginbotham MA - 03/25/2022 1:55 PM EDT Called patient to get the pre-rooming intake. I left voice mail for a returned call to the office to have this completed. If patient returns call please transfer call to myself or another clinical staff member. Thanks! Sharron Higginbotham MA [facility]* Diagnosis Onset Date Resolution Status CKD (chronic kidney disease) chronic Edema chronic Fatigue chronic HTN (hypertension) chronic Hypothyroidism chronic Type II diabetes mellitus, uncontrolled chronic [facility] Work Phone: Evaluation note* Diagnosis Parkinson disease (HCC)- Primary Paralysis agitans Essential tremor Essential and other specified forms of tremor documented [facility] this encounter [facility]* Diagnosis Parkinson disease (HCC)- Primary Paralysis agitans Muscle stiffness Unspecified disorder of muscle, ligament, and fascia Muscle pain Mylagia and myositis, unspecified [facility] this encounter [facility]* Diagnosis Parkinson disease (HCC)- Primary Paralysis agitans Slow transit constipation documented in this encounter [facility] noteNo assessment information availableWSt. Elizabeth [facility] Work Phone: Evaluation note* Diagnosis Controlled type [...] kidney disease (HCC) documented in this encounter [facility] note* Diagnosis Controlled type 2 diabetes mellitus without complication, without long-term current use of insulin (HCC)- Primary Acquired hypothyroidism Unspecified hypothyroidism Stage 3a chronic kidney disease (HCC) Parkinson's disease, unspecified whether dyskinesia present, unspecified whether manifestations fluctuate (HCC) documented in this encounter [facility] note* Diagnosis Palpitations- Primary Diastolic congestive heart failure, unspecified HF chronicity (HCC) Atherosclerosis of s[place] coronary artery of [place] heart without angina pectoris documented in this encounter [facility] note* Diagnosis Coronary artery disease involving s[place] coronary artery of [place] heart, unspecified whether angina present- Primary PAC (premature atrial contraction) Supraventricular premature beats PVC (premature ventricular contraction) Other premature beats Atrial tachycardia (HCC) Other specified cardiac dysrhythmias documented in this encounter [facility] note* Diagnosis Primary hypertension- Primary Unspecified essential hypertension Coronary artery disease involving sokaogon coronary artery of s[place]ogon heart without angina pectoris documented in this encounter [facility] for referral (narrative)No reason for referral information availableWSt. 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 INT LABS Reason for Visit [...] WORK November 30, 2024 5: 15am S/P [facility] 11/01November 30, 2024 9: 59am ADMISSION EXAM December 04, 2024 1 2:52pm [facility] WORK December 07, 2024 5:00am ADMISSION EXAM December 19, 2024 1 :28pm NEW [facility]CERN December 21, 2024 2 :05pm NEW CONCERN December 26, 2024 1 :17pm GROUP HOME LAB WORK January 04 5:00am NEW CONCERN January 04, 2025 12:35pm GROUP HOME LAB WORK January 31, 2025 5 :00am [...] ADMISSION EXAM December 04, 2024 1 2:52pm GROUP HOME LAB WORK December 07, 2024 5:00am ADMISSION EXAM December 19, 2024 1 :28pm NEW CONCERN December 21, 2024 2 :05pm NEW CONCERN December 26, 2024 1 :17pm GROUP HOME LAB WORK January 04 5:00am NEW CONCERN January 04, 2025 12:35pm GROUP HOME LAB WORK January 31, 2025 5 :00am 21 M FU RS 12/05 CX 10/31February 27 10:51am GROUP HOME LAB WORK February 28, 2025 5: 00am [...] 27, 2025 10:51am Chief Complaint Admit Date GROUP HOME LAB WORK December 07, 2024 5:00am ADMISSION EXAM December 19, 2024 1 :28pm NEW CONCERN December 21, 2024 2 :05pm NEW CONCERN December 26, 2024 1 :17pm GROUP HOME LAB WORK January 04 5:00am NEW CONCERN January 04, 2025 12:35pm GROUP HOME LAB WORK January 31, 2025 5 :00am NEW CONCERN February 26, 2025 3:51 pm 21 M FU RS 10/26 CX 10/31February 27 10:51am GROUP HOME LAB WORK February 28, 2025 5: 00am [...] 60-74 MINUTES Marni Hudson MD [address] [address] Referral ID Status Reason Start Date Expiration Date Visits Requested Visits Authorized [id number] Pending Review PCP Requested Referral 02/15/2023 12/18/2023 1 1 Specialty Diagnoses / Procedures Referred By Contac t Referred To Contact Diagnoses Parkinson disease (HCC) Procedures PROVIDER ORDERED FOLLOW UP OFFICE/OUTPATIENT NEW HIGH MDM 60-74 MINUTES Marni Hudson MD [address] [address] Referral ID Status Reason Start Date Expiration Date Visits Requested Visits Authorized [id number] Pending Review PCP Requested Referral 05/21/2023 02/19/2024 1 1 Specialty Diagnoses / Procedures Referred By Contac t Referred To Contact Diagnoses Parkinson disease (HCC) Muscle stiffness Muscle pain Procedures CONSULT TO MASSAGE THERAPY OFFICE/OUTPATIENT NEW HIGH MDM 60-74 MINUTES Marni Hudson MD [address] [address] Referral ID Status Reason Start Date Expiration Date Visits Requested Visits Authorized [id number] Pending Review PCP Requested Referral 02/19/2023 02/19/2024 1 1 Referral ID Status Reason Start Date Expiration Date Visits Requested Visits Authorized [id number] Pending Review PCP Requested Referral 07/06/2024 1 1 Specialty Diagnoses / Procedures Referred By Contac t Referred To Contact Diagnoses Parkinson disease (HCC) Procedures CONSULT TO MASSAGE THERAPY OFFICE/OUTPATIENT NEW [facility] MDM 60-74 MINUTES Marni Hudson MD [address] [address] Referral ID Status Reason Start Date Expiration Date Visits Requested Visits Authorized [id number] Pending Review PCP Requested Referral 07/07/2023 07/06/2024 1 1 Specialty Diagnoses / Procedures Referred By Contac t Referred To Contact [facility] Diagnoses Parkinson disease (HCC) Procedures CONSULT TO PHYSICAL THERAPY PHYSICAL THERAPY EVALUATION HIGH COMPLEX 45 MINS Marni Hudson MD [address] [place] [id number] [facility] [place] [address] [place] [address] Referral ID Status Reason Start Date Expiration Date Visits Requested Visits Authorized [id number] Pending Review Auto-Generat ed Referral 07/07/2023 07/06/2024 1 1 Additional Source Comments (unrecognized sect ion and content) No Status Records FoundNo Status Records FoundNo Status Records FoundNo Status Records FoundNo Status Records FoundNo Status Records Found INFORMATION SOURCE (unrecogn ized section and content) DATE CREATED AUTHOR 05/12/2018 [facility] DATE CREATED AUTHOR AUTHOR'S ORGANIZ ATION 07/11/2021 [facility] DATE CREATED AUTHOR AUTHOR'S ORGANIZ ATION 07/21/2021 [employer] DATE CREATED AUTHOR AUTHOR'S ORGANIZ ATION 03/04/2025 [facility] d[facility] Center DATE CREATED AUTHOR AUTHOR'S ORGANIZ ATION 03/06/2025 [facility] DATE CREATED AUTHOR AUTHOR'S ORGANIZ ATION 04/05/2025 [facility] Source Comments (unrecognize d section and content) In the event this informatio n is protected by the Federal Confidentiality of Alcohol and Drug Abuse Patient Records regulations: The Federal rules restrict any use of the information to criminally investigate or prosecute any alcohol or drug abuse patient.[facility] the event this information is protected by the Federal Confidentiality of Alcohol and Drug Abuse Patient Records regulations: The Federal rules restrict any use of the information to criminally investigate or prosecute any alcohol or drug abuse patient.[facility] the event this information is protected by the Federal Confidentiality of Alcohol and Drug Abuse Patient Records regulations: The Federal rules restrict any use of the information to criminally investigate or prosecute any alcohol or drug abuse patient.[facility]In the event this information is protected by the Federal Confidentiality of Alcohol and Drug Abuse Patient Records regulations: The Federal rules restrict any use of the information to criminally investigate or prosecute any alcohol or drug abuse patient.[facility]In the event this information is protected by the Federal Confidentiality of Alcohol and Drug Abuse Patient Records regulations: The Federal rules restrict any use of the information to criminally investigate or prosecute any alcohol or drug abuse patient.[facility] the event this information is protected by the Federal Confidentiality of Alcohol and Drug Abuse Patient Records regulations: The Federal rules restrict any use of the information to criminally investigate or prosecute any alcohol or drug abuse patient.[facility] the event this information is protected by the Federal Confidentiality of Alcohol and Drug Abuse Patient Records regulations: The Federal rules restrict any use of the information to criminally investigate or prosecute any alcohol or drug abuse patient.[facility] WestIn the event this information is protected by the Federal Confidentiality of Alcohol and Drug Abuse Patient Records regulations: The Federal rules restrict any use of the information to criminally investigate or prosecute any alcohol or drug abuse patient.[facility] WestIn the event this information is protected by the Federal Confidentiality of Alcohol and Drug Abuse Patient Records regulations: The Federal rules restrict any use of the information to criminally investigate or prosecute any alcohol or drug abuse patient.[facility]In the event this information is protected by the Federal Confidentiality of Alcohol and Drug Abuse Patient Records regulations: The Federal rules restrict any use of the information to criminally investigate or prosecute any alcohol or drug abuse patient.[facility] WestIn the event this information is protected by the Federal Confidentiality of Alcohol and Drug Abuse Patient Records regulations: The Federal rules restrict any use of the information to criminally investigate or prosecute any alcohol or drug abuse patient.[facility] the event this information is protected by the Federal Confidentiality of Alcohol and Drug Abuse Patient Records regulations: The Federal rules restrict any use of the information to criminally investigate or prosecute any alcohol or drug abuse patient.[facility]In the event this information is protected by the Federal Confidentiality of Alcohol and Drug Abuse Patient Records regulations: The Federal rules restrict any use of the information to criminally investigate or prosecute any alcohol or drug abuse patient.[facility] WestIn the event this information is protected by the Federal Confidentiality of Alcohol and Drug Abuse Patient Records regulations: The Federal rules restrict any use of the information to criminally investigate or prosecute any alcohol or drug abuse patient.[facility]In the event this information is protected by the Federal Confidentiality of Alcohol and Drug Abuse Patient Records regulations: The Federal rules restrict any use of the information to criminally investigate or prosecute any alcohol or drug abuse patient.[facility]In the event this information is protected by the Federal Confidentiality of Alcohol and Drug Abuse Patient Records regulations: The Federal rules restrict any use of the information to criminally investigate or prosecute any alcohol or drug abuse patient.[facility]In the event this information is protected by the Federal Confidentiality of Alcohol and Drug Abuse Patient Records regulations: The Federal rules restrict any use of the information to criminally investigate or prosecute any alcohol or drug abuse patient.[facility]In the event this information is protected by the Federal Confidentiality of Alcohol and Drug Abuse Patient Records regulations: The Federal rules restrict any use of the information to criminally investigate or prosecute any alcohol or drug abuse patient.[facility] Reason for Visit (unrecogniz ed section and content) Reason Comments upcoming appointment pre-rooming phone c all Reason Comments Opened In Error Reason Comments Opened In Error Reason Comments Telemedicine Specialty Diagnoses / Procedures Referred By Contac t Referred To Contact Diagnoses Parkinson disease (HCC) Gait instability Procedures PROVIDER ORDERED FOLLOW UP OFFICE/OUTPATIENT NEW HIGH [facility] 60-74 MINUTES Marni Hudson MD [address] [address] Referral ID Status Reason Start Date Expiration Date V isits Requested Visits Authorized [id number] Closed PCP Requested Referral 06/29/2022 09/27/2022 1 1 Reason Comments Orders Mailed orders Reason Comments Telemedicine Follow Up Specialty Diagnoses / Procedures Referred By Contac t Referred To Contact Diagnoses Parkinson disease (HCC) Essential tremor Procedures PROVIDER ORDERED FOLLOW UP OFFICE/OUTPATIENT NEW HIGH MDM 60-74 MINUTES Marni Hudson MD [address] [address] Referral ID Status Reason Start Date Expiration Date Visits Requested Visits Authorized [id number] Pending Review PCP Requested Referral 02/15/2023 12/18/2023 [...] Care Teams (unrecognized sec tion and content) Semiconductor Manufacturing Technician Relationship Specialty Start Date End Date Felix Montelongo [address] [place] [address] PCP - General Unspecified 02/04/16 Anupama Feng DO Internal Medicine 12/29/12 Cali Still MD Primary Staff Physician Cardiology 02/07/19 Semiconductor Manufacturing Technician Relationship Specialty Start Date End Date Felix Montelongo MD [address] [place] [address] PCP - General Unspecified 02/04/16 Anupama Feng DO Internal Medicine 12/29/12 Cali Still MD Primary Staff Physician Cardiology 02/07/19 Semiconductor Manufacturing Technician Relationship Specialty Start Date End Date Felix Montelongo MD [address] [place], [place] [address] PCP - General Unspecified 02/04/16 Anupama Feng, DO Internal Medicine 12/29/12 Cali Still MD Primary Staff Physician Cardiology 02/07/19 Semiconductor Manufacturing Technician Relationship Specialty Start Date End Date Felix Montelongo MD [address] [place] [address] PCP - General Unspecified 02/04/16 Anupama Feng, Internal Medicine 12/29/12 Cali Still MD [address] [place] [address] Primary Staff Physician Cardiology 02/07/19 Semiconductor Manufacturing Technician Relationship Specialty Start Date End Date Felix Montelongo MD [address] [place] [address] PCP - General Unspecified 02/04/16 Anupama Feng, Internal Medicine 12/29/12 Cali Still MD [address] [place] [id number] Primary Staff Physician Cardiology 02/07/19 Semiconductor Manufacturing Technician Relationship Specialty Start Date End Date Felix Montelongo MD [address] [place] [address] PCP - General Unspecified 02/04/16 Anupama Feng, Internal Medicine 12/29/12 Cali Still MD [address] [place] [address] [id number] Primary Staff Physician Cardiology 02/07/19 Semiconductor Manufacturing Technician Relationship Specialty Start Date End Date Felix Montelongo MD [address] [place] [id number] PCP - General Unspecified 02/04/16 Anupama Feng DO Internal Medicine 12/29/12 Cali Still MD [address] [place] [address] Primary Staff Physician Cardiology 02/07/19 Semiconductor Manufacturing Technician Relationship Specialty Start Date End Date Felix Montelongo MD [address] [place] [id number] PCP - General Unspecified 02/04/16 Anupama Feng DO Internal Medicine 12/29/12 Cali Still MD [address] [place] [address] Primary Staff Physician Cardiology 02/07/19 Team Status: Active Member Role Status Dates Dr. Barrett Avalos MD Family Provider Active Dr. Felix Montelongo MD Primary Care Provider Active Team Status: Inactive Member Role Status Dates Dr. Felix Montelongo MD Primary Care Provider Active RUDDY ANGLIN Attending Provider, Referring Provid er Active Semiconductor Manufacturing Technician Relationship Specialty Start Date End Date Felix Montelongo MD [address] [place] [id number] PCP - General Unspecified 02/04/16 Anupama Feng DO Internal Medicine 12/29/12 Cali Still MD [address] [place] [address] Primary Staff Physician Cardiology 02/07/19 Marni Hudson MD [address] [address] Specialty Cardiopulmonary Technician Neurology 11/10/23 Semiconductor Manufacturing Technician Relationship Specialty Start Date End Date Felix Montelongo MD [address] [place] [address] PCP - General Unspecified 02/04/16 Anupama Feng DO Internal Medicine 12/29/12 Cali Still MD [address] [place] [address] Primary Staff Physician Cardiology 02/07/19 Marni Hudson MD [address] [address] Specialty Cardiopulmonary Technician Neurology 11/10/23 Semiconductor Manufacturing Technician Relationship Specialty Start Date End Date Felix Montelongo MD [address] [place] [address] PCP - General Unspecified 02/04/16 Anupama Feng DO Internal Medicine 12/29/12 Cali Still MD [address] [place] [address] Primary Staff Physician Cardiology 02/07/19 Marni Hudson MD [address] [address] Specialty Cardiopulmonary Technician Neurology 11/10/23 Semiconductor Manufacturing Technician Relationship Specialty Start Date End Date Rocío Wagner PA-C [address] [place] [address] PCP - General Family Medicine 02/01/24 Anupama Feng DO Internal Medicine 12/29/12 Cali Still MD Primary Staff Physician Cardiology 02/07/19 Mrani Hudson MD [address] [address] Specialty Cardiopulmonary Technician Neurology 11/10/23 Semiconductor Manufacturing Technician Relationship Specialty Start Date End Date Vincent Espinosa MD [address] [place] [address] PCP - General Internal Medicine 02/29/24 Anupama Feng DO Internal Medicine 12/29/12 Cali Still MD Primary Staff Physician Cardiology 02/07/19 Marni Hudson MD [address] [address] Specialty Cardiopulmonary Technician Neurology 11/10/23 Semiconductor Manufacturing Technician Relationship Specialty Start Date End Date Vincent Espinosa MD [address] [place], [place] [address] PCP - General Internal Medicine 02/29/24 Anupama Feng DO Internal Medicine 12/29/12 Cali Still MD Primary Staff Physician Cardiology 02/07/19 Marni Hudson MD [address] [address] Specialty Cardiopulmonary Technician Neurology 11/10/23 Rocío Wagner PA-C [address] [place] [address] Trailer Mechanic Family Medicine 10/29/24 Sheela Cochran APRN.CNP [address] [place] [address] Trailer Mechanic Internal Medicine 10/29/24 Janine Daugherty PA-C [address] [place], [place] [id number] Trailer Mechanic Family Medicine 10/29/24 Semiconductor Manufacturing Technician Relationship Specialty Start Date End Date Vincent Espinosa MD [address] [place], [place] [phone] PCP - General Internal Medicine 02/29/24 Anupama Feng DO Internal Medicine 12/29/12 Cali Still MD Primary Staff Physician Cardiology 02/07/19 Marni Hudson MD [address] [address] Specialty Cardiopulmonary Technician Neurology 11/10/23 Rocío Wagner PA-C [address] [place] [address] Trailer Mechanic Family Medicine 10/29/24 Sheela Cochran APRN.CNP [address] [place] [address] Trailer Mechanic Internal Medicine 10/29/24 Janine Daugherty PA-C [address] [place] [address] Trailer Mechanic [facility] 10/29/24 Team Status: Inactive Member Role Status Dates Dr. Felix Montelongo MD Primary Care Provider Active Start: October 27, 2024 End: November 01, 2024 Dr. Velasquez Morales , Emergency Provider Activ e Start: [...] 02, 2024 End: November 02, 2024 Abeba Paecock NP, SUPERVISOR ASSEMBLING-C Attending Provider Active Start: November 02, 2024 [...] End: December 04, 2024 Abeba Peacock NP, SUPERVISOR ASSEMBLING-C Attending Provider Active Start: December 04, 2024 [...] 2024 End: December 21, 2024 Abeba Peacock SUPERVISOR ASSEMBLING, SUPERVISOR ASSEMBLING-C Attending Provider Active Start: December 21, 2024 [...] 2025 End: January 04, 2025 Abeba Peacock SUPERVISOR ASSEMBLING, SUPERVISOR ASSEMBLING-C Attending Provider Active Start: January 04, 2025 End: January 04, 2025 Team Status: Inactive Member Role Status Dates Dr. Felix Montelongo MD Primary Care Provider Active Start: January 31, 2025 End: January 31, 2025 Buzz ZHANG MD Attending Provider Active Start: January 31, 2025 End: January 31, 2025 Semiconductor Manufacturing Technician Relationship Specialty Start Date End Date Vincent Espinosa MD [address] [place] [address] PCP - General Internal Medicine 02/29/24 Anupama Feng DO Internal Medicine 12/29/12 Cali Still MD Primary Staff Physician Cardiology 02/07/19 Marni Hudson MD [address] [address] Specialty Cardiopulmonary Technician Neurology 11/10/23 Sheela Cochran APRN.[place]VIN [address] [place] [address] Trailer Mechanic Internal Medicine 10/29/24 Semiconductor Manufacturing Technician Relationship Specialty Start Date End Date Vincent Espinosa MD [address] [place] [address] PCP - General Internal Medicine 02/29/24 Anupama Feng DO Internal Medicine 12/29/12 Cali Still MD Primary Staff Physician Cardiology 02/07/19 Marni Hudson MD [address] [facility] [address] [place], [place] [id number] Specialty Cardiopulmonary Technician Neurology 11/10/23 Sheela Cochran APRN.SHOE CASER [address] [place] [address] Trailer Mechanic Internal Medicine 10/29/24 Team Status: Inactive Member [...] 2025 End: February 26, 2025 Abeba Peacock SUPERVISOR ASSEMBLING, SUPERVISOR ASSEMBLING-C Attending Provider Active Start: February 26, 2025 [...] BE BASED ON THE PRIMARY CLINICAL RECORDS. [facility] [employer] [facility]. provides no warranty or guarantee of the accuracy or completeness of information in this document.
[2025-04-26 08:24] LABS: Absolute Lymphocyte Count 0.88 X10^3/uL (0.83-4.51); Basophil# 0.02 X10^3/uL; Basophil% 0.4 % (0-1); Eosinophil# 0.16 X10^3/uL; Eosinophils% 3.4 % (0-5); Hematocrit 36.5 % (40-54); Hemoglobin 12.3 g/dL (13.0-16.5); Lymphocyte # 0.88 X10^3/ul (0.83-4.51); Lymphocyte % 18.9 % (19-41); Mean Corp Hgb Conc 33.7 g/dL (32-36); Mean Corpuscular Hgb 33.2 pg (27.0-32.0); Mean Corpuscular Volume 98.4 fL (80-94); Mean Platelet Vol. 10.5 fl (6.2-12.0); Monocyte% 12.9 % (0-10); NRBC Flagged by Analyzer 0 % (0-5); Neutrophil # 2.98 X10^3/uL (2.7-7.7); Neutrophil % 64.2 % (47-70); Platelet Count 163 K/mm3 (150-450); RBC Distribution Width CV 12.6 % (11.6-14.6); RBC Distribution Width SD 45.2 fl (35.1-43.9); Red Blood Count 3.71 M/mm3 (4.6-6.2); White Blood Count 4.7 K/mm3 (4.4-11.0)
[2025-04-26 08:41] LABS: Anion Gap 10 (5-15); BUN 37 mg/dL (4-19); BUN/Creat Ratio 27.3 RATIO (10-20); Carbon Dioxide 24.6 mmol/L (21.0-32.0); Chloride 104 mmol/L (98-108); Creatinine, Serum 1.34 mg/dL (0.70-1.20); EST Glomerular Filtration Rate 53 (>60); Glucose 147 mg/dL (70-99); Potassium 4.7 mmol/L (3.3-5.1); Sodium Level 138 mmol/L (133-145)
== END ==
LOC: OLS.WHLTSB 05:00
PROVIDERS: PCP Family Medicine Geriatric Medicine; Visit Provider Internal Medicine
DX: G20.A1 Parkinson's disease without dyskinesia, without mention of fluctuations (principal)
CPT/HCPCS: 36415; 80048; 85025

== ENCOUNTER → 2025-05-02 05:00 | Outpatient (REF) | payer MEDICARE, SELFPAY ==
[2020-03-14 14:48] VITALS: BMI 28.1
--- OUTSIDE RECORDS SUMMARY | 2025-05-02 04:10 | XMS RPT_ITS | CCD ---
Author Organization [facility] [place] [facility]Sym[facility] Care Team Providers Care Television Repairer Name Role Phone NICOLA PAYNE Unavailable Unavailable IMCA Unavailable Unavailable FELIX MONTELONGO Unavailable Unavailable ALHAJI KARI Unavailable Unavailable MATTHEW MANENETH Unavailable Unavailable JAYDAFELIX Jay Unavailable Unavailable ALHAJI KARI Unavailable Unavailable MATTHEW MANENETH Unavailable Unavailable FELIX MONTELONGO K Unavailable Unavailable Unknown, Referring Provider Unavailable Unav ailable Unavailable Unavailable Anupama Feng DO Unavailable Felix Montelongo Primary Care Provider Cali Still MD Unavailable Felix Montelongo MD Primary Care Provider Dr. Felix Montelongo Primary Care Provider Dr. Felix Montelongo Referring Provider HELEN Durand Attending Provider [phone] Anupama Feng DO Unavailable Felix Montelongo MD [...] Primary Care Provider Cali Still MD Unavailable Bernard HILLIARD, Rocío L Unavailable Older SCHOOL AGE TEACHER.HEALTH EDUCATION COORDINATOR, Sheela Unavailable Janine Daugherty PA-C Unavailable Jayda SHAW, Dr. [place] Primary Care Provider Dr. Velasquez Morales DO Emergency Provider Nick SHAW, Dr. Ozuna Admit Provider Nick SHAW, Dr. Ozuna Other Provider Dr. Sung Rhodes DO Attending Provider Dr. Roderick Laurent DO Other Provider Dr. Angela Ramirez MD Attending Provider Mehran DE LA CRUZ, Dr. Vaughn Attending Provider Dr. Sung Rhodes DO Other Provider Abeba Ling Attending Provider Buzz Rainey MD Attending Provider Unavaila ble Redd SHAW, Dr. Gerber Attending Provider Dr. Felix Montelongo MD Referring Provider Dr. Margie Gary MD Attending Provider SLEIK, KHALED MELOUD Referring Unavailable GANTA, VINCENT Primary Care Unavailable KWAN ESTRELLA Attending Unavailable SLEIK, KHALED MELOUD Attending Unavailable SLEIK, KHALED MELOUD Referring Unavailable GANTA, VINCENT Primary Care Unavailable SLEIK, KHALED MELOUD Referring Unavailable GANTA, VINCENT Primary Care Unavailable SLEIK, KHALED MAREOUD Attending Unavailable SLEIK, KHALED MELOUD Referring Unavailable GANTA, VINCENT Primary Care Unavailable Jayda SHAW, Dr. [place] Primary Care Provider Buzz Rainey MD Attending Provider Unavaila ble [place] BEHAVIORAL SCIENCES INSTRUCTOR-C, Abeba Attending Provider Redd SHAW, Dr. Gerber Attending Provider King VALERIA, Dr. Preciado Attending Provider Jayda SHAW, Dr. [place] Primary Care Provider Buzz Rainey MD Attending Provider Unavaila ble [place] BEHAVIORAL SCIENCES INSTRUCTOR-C, Abeba Attending Provider Jayda SHAW, Dr. Washington Referring Provider [phone] Cody Conleybe Attending Unavailabl e Jayda, Felix Primary Care Unavailable Jayda, Felix Primary Care Unavailable Durga THORPE, Rita Schwartz Attending Unavailabl e Jayda, Felix Referring Unavailable Oleghe OLSCodybe Attending Unavailabl e Jayda, Felix Primary Care Unavailable Oleghe Otilia ZHANGongbe Attending Unavailabl e Jayda, Felix Primary Care Unavailable Oleghe OLS Efyumikoongbe Attending Unavailabl e Jayda, Felix Primary Care Unavailable Jayda, Felix Primary Care Unavailable Oleghe LEATHA Efewongbe Attending Unavailabl e Oleghe OLS Efewongbe Referring Unavailabl e Oleghe OLS, Efewongbe Attending Unavailabl e Jayda, Felix Primary Care Unavailable Sung Rhodes Attending Unavailable Sulma Romero Consulting Unavailable Sulma Romero Admitting Unavailable Jayda, Felix Primary Care Unavailable Roderick Laurent Consulting Unavailable Oleghe OLS Efkenbe Attending Unavailabl e Jayda, Felix Primary Care Unavailable [place] BEHAVIORAL SCIENCES INSTRUCTOR, Abeba Attending Unavailable Jayda, Felix Primary Care Unavailable [place] BEHAVIORAL SCIENCES INSTRUCTOR, Abeba Attending Unavailable Jayda, Felix Primary Care Unavailable [place] BEHAVIORAL SCIENCES INSTRUCTOR, Abeba Attending Unavailable Jayda, Felix Primary Care Unavailable Olemke Efewongbe Attending Unavailable Jayda, Felix Primary Care Unavailable [place] BEHAVIORAL SCIENCES INSTRUCTOR, Abeba Attending Unavailable Jayda, Felix Primary Care Unavailable Margie Gary Attending Unavailable Jayda, Felix Primary Care Unavailable Jayda, Felix Referring Unavailable Jayda, Felix Primary Care Unavailable Cody Conleybe Attending Unavailabl lana [place] BEHAVIORAL SCIENCES INSTRUCTOR, Rita Schwartz Attending Unavailabl e Jayda, Felix Referring Unavailable Jayda, Felix Primary Care Unavailable Jayda, Felix Primary Care Unavailable Cody Conleybe Attending UnavailSung Wilkins Attending Unavailable Sulma Romero Consulting Unavailable Sulma Romero Admitting Unavailable Jayda, Felix Primary Care Unavailable Roderick Laurent Consulting Unavailable Sung Rhodes Consulting Unavailable Angela Ramirez Attending Unavailable Jayda, Felix Primary Care Unavailable Ozzy Bro Attending Unavailable Jayda, Felix Primary Care Unavailable Jayda, Felix Referring Unavailable Oleghe Buzz ZHANG Attending Unavailabl e Jayda, Felix Primary Care Unavailable Cody Conleybe Attending Unavailabl e Jayda, Felix Primary Care Unavailable Durga BEHAVIORAL SCIENCES INSTRUCTOR, Rita Schwartz Consulting Unavailabl e Jayda, Felix Primary Care Unavailable Durga BEHAVIORAL SCIENCES INSTRUCTOR, Rita Schwartz Attending Unavailabl e Jayda, Felix Referring Unavailable Jayda, Felix Primary Care Unavailable Cody Conleybe Attending Unavailabl e Alexandra Raineyewongbe Attending Unavailable Jayda, Felix Primary Care Unavailable Ozzy Bro Attending Unavailable Jayda, Felix Referring Unavailable Jayda, Felix Primary Care Unavailable Redd Efewongbe Attending Unavailable Jayda, Felix Primary Care Unavailable Abeba Peacock NP Attending Unavailable Jayda, Felix Primary Care Unavailable Roderick Laurent Attending Unavailable Sulma Romero Attending Unavailable Allergies Allergy Classification Reported Allergen(s) Allergy Type Date of Onset Reaction(s) Facility (20 sources) Adrenergic Beta-Antagonist s; Translations: [BETA-BLOCKERS (BETA-ADRENERGI C BLOCKING AGTS)] Propensity to adverse reactions (disorder) 0 Shortness of Breath [facility] Repository (6 sources) Beta-Blockers (Beta-Adrenergi c Bloc; Translations: [Beta-Blockers (Beta-Adrenergi c Bloc] Allergy to substance 2 ANGIOEDEMA [facility] Medications Current Medications Medication Drug Class(es) [...] Start: 03-24-2019 take 0.5 tablet by m outh once daily atorvastatin (LIPITOR) 80 mg tablet [...] Comment on above: Take 2 tablets by [facility] three times daily. cholecalciferol 0.025 mg [...] Comment on above: Take 1 tablet by [facility] once daily. DULoxetine 20 mg delayed release oral capsule (3 sources) Serotonin and Norepinephrine Reuptake Inhibitor Start: 07-06-20 End: 07-06-20 23 take 1 capsule by mouth once daily DULoxetine (CYMBALTA) 20 mg capsule Take 1 capsule by mouth once daily. 30 capsule 11 07/06/2022 12/18/2022 Discontinued Comment on above: Take 1 capsule by [facility] once daily. finasteride 5 mg oral tablet (6 sources) 5-alpha Reductase Inhibitor Start: 05-15-20 take 1 tablet by mouth once daily [...] 5:23pm Start: 05-15-2021 take 1 tablet by bhaksar th twice daily Folic Acid 800 MCG [...] Start: 05-15-2021 take 2 tablets by mo [facility] twice daily at mealtime Glimepiride 1 MG [...] oral tablet (20 sources) Nitrate Vasodilator Start: 5 take 1 tablet by mouth once daily, [...] CHEST PAIN. IF NO RELIEF CALL 911 primidone 50 mg oral tablet (3 sources) [...] Comment on above: Take 1 capsule by [facility] once daily. VIT B COMPLEX 100 [...] Plus Meter) misc Discontinued 0 .ROUTE .MEDSUPPLY 200 May 03, 2020 12:00am November 01, 2024 11:01am test twice a day Start: 05-03-2020 Blood-Glucose Meter (Accu-Chek [place] Plus Meter) misc Active 0 .ROUTE .MEDSUPPLY 200 May 02, 2020 11:00pm test twice a day Start: 05-03-2020 Blood-Glucose Meter (Accu-Chek [place] Plus Meter) [facility] Active 0 .ROUTE .MEDSUPPLY 200 May 03, [...] above: Take 1 tablet by bhaskar th twice daily. Take 1 tablet by bhaskar [...] disease (20 sources) Atherosclerotic heart disease of [place] coronary artery without angina pectoris; Translations: [Coronary [...] without dyskinesia, without mention of fluctuations] Onset: 5 Peripheral and visceral atherosclerosis (6 sources) Atherosclerosis [...] X 8 Promus Synergy per [facility] @ [facility]07/20/2018:JACQUELINE of [place] RPL branch, 3.0 X 16 Promus Synergy ; JACQUELINE of distal SVG to RCA, 2.5 X 20 Promus Synergy per [facility] @ [facility] Nonspecific chest pain (12 sources) Chest [...] Auto (Unsp spec) [#/Vol] 0.83 10*3/uL 0.83-4.51 [facility] Absolute neutrophil countOrd ered By: Buzz Rainey on 03-29-2025 Neutrophils (Bld) [#/Vol] 2.7 10*3/uL 2.0-7.7 [facility] Anion gap in Serum or Plasma Ordered By: Buzz Rainey on 03-29-2025 Anion gap [Moles/Vol] 11 mmol/L 5-15 [facility] Automated lymphocyte count a s percentage of total leukocytesOrdered By: Buzz Rainey on 03-29-2025 Lymphocytes/100 WBC Auto (Unsp spec) 19.5 % 19-41 [facility] BUN/creatinine ratioOrdered By: Buzz Rainey on 03-29-2025 Urea nitrogen/Creatinine [Mass ratio] 30.3 mg/mg High 10-20 [facility] Basophil percentageOrdered B y: Buzz Rainey on 03-29-2025 Basophils/100 WBC (Bld) 0.7 % 0-1 [facility] Carbon dioxide, total [Moles /volume] in Central venous bloodOrdered By: Buzz Rainey on 03-29-2025 CO2 [Moles/Vol] 22.7 mmol/L 21.0-32.0 [facility] Chloride assayOrdered By: Alexandra Rainey on 03-29-2025 Chloride [Moles/Vol] 103 mmol/L 98-108 [facility] Eosinophil percentageOrdered By: Buzz Rainey on 03-29-2025 Eosinophils/100 WBC (Bld) 4.0 % 0-5 [facility] Erythrocyte distribution wid th ratioOrdered By: yumikocache junctionestrella Rainey on 03-29-2025 Erythrocyte distribution width (RBC) [Ratio] 12.0 % 11.6-14.6 [facility] Erythrocyte distribution wid th standard deviationOrdered By: Buzz Rainey on 03-29-2025 Erythrocyte distribution width (RBC) [Ratio] 43.5 fl 35.1-43.9 [facility] Glomerular filtration rate ( GFR) estimation/1.73 sq m using serum, plasma, or whole bOrdered By: Buzz Rainey on 03-29-2025 GFR/1.73 sq M.predicted among non-blacks MDRD (S/P/Bld) [Vol rate/Area] 57 mL/min/{1.73_m2} Low >60 [facility] Comment on above: mL/min/1.73m2 CKD-EP I Creatinine Equation (2020) Hematocrit Auto (Bld) [Volum e fraction]Ordered By: Buzz Rainey on 03-29-2025 Hematocrit (Bld) [Volume fraction] 35.5 % Low 40-54 [facility] Hemoglobin measurementOrdere d By: Buzz Rainey on 03-29-2025 Hemoglobin (Bld) [Mass/Vol] 12.1 g/dL Low 13.0-16.5 [facility] Immature granulocytes/100 WB C Auto (Bld)Ordered By: Buzz Rainey on 03-29-2025 Immature granulocytes/100 WBC (Bld) 0.000 % 0.0-0.9 [facility] Comment on above: IG% - Immature Granu locytes (promyelocytes, myelocytes and metamyelocytes) > 1% indicates that a LEFT SHIFT is Present. MCV (mean corpuscular volume ) determinationOrdered By: Buzz Rainey on 03-29-2025 MCV (RBC) [Entitic vol] 98.3 fL High 80-94 [facility] Mean corpuscular hemoglobin (MCH) determinationOrdered By: yumikocache junctionestrella Rainey on 03-29-2025 MCH (RBC) [Entitic mass] 33.5 pg High 27.0-32.0 [facility] Mean corpuscular hemoglobin concentration (MCHC) determinationOrdered By: yumikocache junctionestrella Rainey on 03-29-2025 MCHC (RBC) [Mass/Vol] 34.1 g/dL 32-36 [facility] Mean platelet volume determi nationOrdered By: Buzz Rainey on 03-29-2025 Platelet mean volume (Bld) [Entitic vol] 10.4 fL 6.2-12.0 [facility] Monocyte percentageOrdered B y: Buzz Rainey on 03-29-2025 Monocytes/100 WBC (Bld) 12.2 % High 0-10 [facility] Neutrophil percentageOrdered By: tamanna Rainey on 03-29-2025 Neutrophils/100 WBC (Bld) 63.6 % 47-70 [facility] Nucleated red blood cell per centageOrdered By: Buzz Rainey on 03-29-2025 Nucleated RBC/100 WBC (Bld) [Ratio] 0 % 0-5 [facility] Platelet countOrdered By: Alexandra Rainey on 03-29-2025 Platelets (Bld) [#/Vol] 182 10*3/uL 150-450 [facility] Potassium measurement (mass/ volume)Ordered By: Buzz Rainey on 03-29-2025 Potassium (Unsp spec) [Mass/Vol] 4.8 mmol/L 3.3-5.1 [facility] RBC Auto (Bld) [#/Vol]Ordere d By: Buzz Rainey on 03-29-2025 RBC (Bld) [#/Vol] 3.61 10*6/uL Low 4.6-6.2 [facility] Serum creatinine measurement (mass/volume)Ordered By: Buzz Rainey on 03-29-2025 Creatinine [Mass/Vol] 1.25 mg/dL High 0.70-1.20 [facility] Serum glucose measurement (m ass/volume)Ordered By: Buzz Rainey on 03-29-2025 Glucose [Mass/Vol] 269 mg/dL High 70-99 [facility] Serum or plasma calcium jesenia urement (mass/volume)Ordered By: Buzz Rainey on 03-29-2025 Calcium [Mass/Vol] 9.0 mg/dL 7.6-11.0 [facility] Serum or plasma urea nitroge n measurement (mass/volume)Ordered By: Buzz Rainey on 03-29-2025 Urea nitrogen [Mass/Vol] 38 mg/dL High 4-19 [facility] Sodium levelOrdered By: Otilia baileyjovan Redd on 03-29-2025 Sodium [Moles/Vol] 136 mmol/L 133-145 [facility] White blood cell (WBC) count Ordered By: Buzz Rainey on 03-29-2025 WBC (Bld) [#/Vol] 4.3 10*3/uL Low 4.4-11.0 [facility] CNOVon 2025 CNOV Office Visit (CARDWS ) FLEX KLINE ([id number]) 1940 M Date Time Provider Department 03/05/25 11:00 AM HARJINDER JONES During your visit today, we recorded the following information about you: Pulse Respiration Blood pressure Weight 82/minute 16/minute 138/60 81.6 kg Height 1.765 m Harjinder Jones MD 2025 12:16 PM Signed Harjinder Jones MD Interventional Cardiology [address] [place] [phone] Chief Complaint Patient presents with: Follow Up: 6 week follow up, c/o chest pain HISTORY OF PRESENT ILLNESS: Mr. Kline is a 85 year old male seen in my office today for follow-up patient had a prior history of severe [place] coronary artery disease with prior history of [...] meals. FOL (more content not included)... Normal [facility] CNOVon 03-02-2025 CNOV Office Visit (AGCARDPOB) FLEX KLINE ([id number]) 1940 M Date Time Provider Department 03/02/25 10:20 AM KWAN ESTRELLA AGCARDPOKevon During your visit today, we recorded the following information about you: Pulse Blood pressure Weight 69/minute 113/63 81.6 kg Kwan Estrella MD 03/02/2025 11:18 AM Signed [facility] SECTION OF CARDIAC PACING and ELECTROPHYSIOLOGY OUTPATIENT VISIT DATE March 02, 2025 OUTPATIENT VISIT TYPE NEW PRIMARY CARE PHYSICIAN: Vincent Epsinosa [address] [place] [address] REFERRING PHYSICIAN: Harjinder Jones [address] [facility] [facility], [address] [facility] [id number] chief complaint on file. HISTORY OF PRESENT [...] currently a resident at [facility]. Had a recent UTI in 10/2024, still [...] fibrillation ECG 11/29/23 - SR 77 bpm SC 210 QRS 102 QT/c 364 411 PVC [...] rare (<1.0%). Isolated VEs were rare (<1.0%, 01937), VE Couplets were rare (<1.0%, 63), and [...] No Fa (more content not included)... Normal [facility] ECG B/O W INTERP (MED OFFICE )on 03-02-2025 .Sinus rhythm 68 bpm SC 264ms First degree AVB QRS 96ms QT/c 398/423ms nl Qrs morphology and early repol change in 2.3.aVF [facility] Absolute lymphocyte countOrd ered By: Buzz Rainey on 03-01-2025 Lymphocytes Auto (Unsp spec) [#/Vol] 0.88 10*3/uL 0.83-4.51 [facility] Absolute neutrophil countOrd ered By: Buzz Rainey on 03-01-2025 Neutrophils (Bld) [#/Vol] 4.2 10*3/uL 2.0-7.7 [facility] Anion gap in Serum or Plasma Ordered By: Buzz Rainey on 03-01-2025 Anion gap [Moles/Vol] 13 mmol/L 5-15 [facility] Automated lymphocyte count a s percentage of total leukocytesOrdered By: Buzz Rainey on 03-01-2025 Lymphocytes/100 WBC Auto (Unsp spec) 14.9 % Low 19-41 [facility] BUN/creatinine ratioOrdered By: Eftamanna De La Pazmklana on 03-01-2025 Urea nitrogen/Creatinine [Mass ratio] 37.1 mg/mg High 10-20 [facility] Basophil percentageOrdered B y: Buzz Brainmklana on 03-01-2025 Basophils/100 WBC (Bld) 0.7 % 0-1 [facility] Carbon dioxide, total [Moles /volume] in Central venous bloodOrdered By: Alexandratamanna De La Pazmklana on 03-01-2025 CO2 [Moles/Vol] 21.5 mmol/L 21.0-32.0 [facility] Chloride assayOrdered By: Alexandra kenestrella De La Pazmklana on 03-01-2025 Chloride [Moles/Vol] 104 mmol/L 98-108 [facility] Eosinophil percentageOrdered By: Alexandrayumikoarthur Brainmklana on 03-01-2025 Eosinophils/100 WBC (Bld) 3.7 % 0-5 [facility] Erythrocyte distribution wid th ratioOrdered By: Alexandrayumikoarthur Brainmklana on 03-01-2025 Erythrocyte distribution width (RBC) [Ratio] 11.9 % 11.6-14.6 [facility] Erythrocyte distribution wid th standard deviationOrdered By: yumikocache junctionestrella De La Pazmklana on 03-01-2025 Erythrocyte distribution width (RBC) [Ratio] 43.6 fl 35.1-43.9 [facility] Glomerular filtration rate ( GFR) estimation/1.73 sq m using serum, plasma, or whole bOrdered By: Alexandratamanna De La Pazmklana on 03-01-2025 GFR/1.73 sq M.predicted among non-blacks MDRD (S/P/Bld) [Vol rate/Area] 61 mL/min/{1.73_m2} >60 [facility] Comment on above: mL/min/1.73m2 CKD-EP I Creatinine Equation (2020) Hematocrit Auto (Bld) [Volum e fraction]Ordered By: Buzz Rainey on 03-01-2025 Hematocrit (Bld) [Volume fraction] 40.7 % 40-54 [facility] Hemoglobin measurementOrdere d By: Buzz Rainey on 03-01-2025 Hemoglobin (Bld) [Mass/Vol] 13.9 g/dL 13.0-16.5 [facility] Immature granulocytes/100 WB C Auto (Bld)Ordered By: Buzz Rainey on 03-01-2025 Immature granulocytes/100 WBC (Bld) 0.200 % 0.0-0.9 [facility] Comment on above: IG% - Immature Granu locytes (promyelocytes, myelocytes and metamyelocytes) > 1% indicates that a LEFT SHIFT is Present. MCV (mean corpuscular volume ) determinationOrdered By: Buzz Rainey on 03-01-2025 MCV (RBC) [Entitic vol] 99.5 fL High 80-94 [facility] Mean corpuscular hemoglobin (MCH) determinationOrdered By: Buzz Rainey on 03-01-2025 MCH (RBC) [Entitic mass] 34.0 pg High 27.0-32.0 [facility] Mean corpuscular hemoglobin concentration (MCHC) determinationOrdered By: Buzz Rainey on 03-01-2025 MCHC (RBC) [Mass/Vol] 34.2 g/dL 32-36 [facility] Mean platelet volume determi nationOrdered By: Buzz Rainey on 03-01-2025 Platelet mean volume (Bld) [Entitic vol] 10.4 fL 6.2-12.0 [facility] Monocyte percentageOrdered B y: Buzz Rainey on 03-01-2025 Monocytes/100 WBC (Bld) 8.5 % 0-10 [facility] Neutrophil percentageOrdered By: Buzz Rainey on 03-01-2025 Neutrophils/100 WBC (Bld) 72.0 % High 47-70 [facility] Nucleated red blood cell per centageOrdered By: Buzz Rainey on 03-01-2025 Nucleated RBC/100 WBC (Bld) [Ratio] 0 % 0-5 [facility] Platelet countOrdered By: Alexandra Rainey on 03-01-2025 Platelets (Bld) [#/Vol] 213 10*3/uL 150-450 [facility] Potassium measurement (mass/ volume)Ordered By: Buzz Rainey on 03-01-2025 Potassium (Unsp spec) [Mass/Vol] 4.5 mmol/L 3.3-5.1 [facility] RBC Auto (Bld) [#/Vol]Ordere d By: Buzz Rainey on 03-01-2025 RBC (Bld) [#/Vol] 4.09 10*6/uL Low 4.6-6.2 [facility] Serum creatinine measurement (mass/volume)Ordered By: Buzz Rainey on 03-01-2025 Creatinine [Mass/Vol] 1.19 mg/dL 0.70-1.20 [facility] Serum glucose measurement (m ass/volume)Ordered By: uBzz Rainey on 03-01-2025 Glucose [Mass/Vol] 152 mg/dL High 70-99 [facility] Serum or plasma calcium jesenia urement (mass/volume)Ordered By: Buzz Rainey on 03-01-2025 Calcium [Mass/Vol] 9.5 mg/dL 7.6-11.0 [facility] Serum or plasma urea nitroge n measurement (mass/volume)Ordered By: Buzz Rainey on 03-01-2025 Urea nitrogen [Mass/Vol] 44 mg/dL High 4-19 [facility] Sodium levelOrdered By: Otilia baileyjovan Redd on 03-01-2025 Sodium [Moles/Vol] 138 mmol/L 133-145 [facility] White blood cell (WBC) count Ordered By: Buzz Rainey on 03-01-2025 WBC (Bld) [#/Vol] 5.9 10*3/uL 4.4-11.0 [facility] Bilirubin Test strip Ql (U)O rdered By: Buzz Rainey on 02-28-2025 Bilirubin Ql (U) Negative Negative [facility] Ketones Test strip Ql (U)Ord ered By: Buzz Rainey on 02-28-2025 Ketones Ql (U) Negative Negative [facility] Nitrite Test strip Ql (U)Ord ered By: Buzz Rainey on 02-28-2025 Nitrite Ql (U) Negative Negative [facility] Protein Test strip Ql (U)Ord ered By: Buzz Rainey on 02-28-2025 Protein Ql (U) 15 mg/dl High Negative [facility] Urine clarityOrdered By: Franklin Rainey on 02-28-2025 Clarity (U) Clear Clear [facility] Urine color determinationOrd ered By: Buzz Rainey on 02-28-2025 Color (U) Straw Yellow [facility] Urine cultureOrdered By: Franklin Rainey on 02-28-2025 Bacteria identified Cx Nom (U) Positive Abnormal [facility] Urine glucose detectionOrder ed By: Buzz Rainey on 02-28-2025 Glucose Ql (U) 1000 mg/dl High Normal [facility] Urine leukocyte esterase det ection by dipstickOrdered By: Buzz Rainey on 02-28-2025 Leukocyte esterase Test strip Ql (U) 25 /ul High Negative [facility] Urine pHOrdered By: Mallorie Rainey on 02-28-2025 pH (U) 6.0 [pH] 5.0 - 8.0 [facility] Urine specific gravity measu rementOrdered By: Buzz Rainey on 02-28-2025 Specific gravity (U) [Rel density] 1.020 1.002-1.030 [facility] Urine urobilinogen measureme ntOrdered By: Buzz Rainey on 02-28-2025 Urobilinogen Ql (U) Normal mg/dl Normal [facility] Endocrinology Visit Reporton 02-27-2025 Endocrinology Visit Report [facility] 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 Normal [facility] Absolute lymphocyte countOrd ered By: Buzz Rainey on 01-31-2025 Lymphocytes Auto (Unsp spec) [#/Vol] 0.83 10*3/uL 0.83-4.51 [facility] Absolute neutrophil countOrd ered By: Buzz Rainey on 01-31-2025 Neutrophils (Bld) [#/Vol] 3.3 10*3/uL 2.0-7.7 [facility] Anion gap in Serum or Plasma Ordered By: Buzz Rainey on 01-31-2025 Anion gap [Moles/Vol] 14 mmol/L 5-15 [facility] Automated lymphocyte count a s percentage of total leukocytesOrdered By: Buzz Rainey on 01-31-2025 Lymphocytes/100 WBC Auto (Unsp spec) 16.0 % Low 19-41 [facility] BUN/creatinine ratioOrdered By: Buzz Rainey on 01-31-2025 Urea nitrogen/Creatinine [Mass ratio] 28.0 mg/mg High 10-20 [facility] Basophil percentageOrdered B y: Buzz Rainey on 01-31-2025 Basophils/100 WBC (Bld) 0.4 % 0-1 [facility] Bilirubin directOrdered By: Buzz Rainey on 01-31-2025 Bilirubin.direct [Mass/Vol] 0.22 mg/dL 0.00-0.30 [facility] Bilirubin, totalOrdered By: Buzz Rainey on 01-31-2025 Bilirubin [Mass/Vol] 0.47 mg/dL 0.00-1.30 [facility] Carbon dioxide, total [Moles /volume] in Central venous bloodOrdered By: Buzz Rainey on 01-31-2025 CO2 [Moles/Vol] 21.6 mmol/L 21.0-32.0 [facility] Chloride assayOrdered By: Alexandra Rainey on 01-31-2025 Chloride [Moles/Vol] 101 mmol/L 98-108 [facility] Eosinophil percentageOrdered By: Buzz De La Pazmklana on 01-31-2025 Eosinophils/100 WBC (Bld) 6.2 % High 0-5 [facility] Erythrocyte distribution wid th (RBC) [Ratio]Ordered By: Buzz De La Pazmklana on 01-31-2025 Erythrocyte distribution width (RBC) [Entitic vol] 45.0 fL High 35.1-43.9 [facility] Erythrocyte distribution wid th ratioOrdered By: Otiliaarthur De La Pazmklana on 01-31-2025 Erythrocyte distribution width (RBC) [Ratio] 12.1 % 11.6-14.6 [facility] Erythrocyte distribution wid th standard deviationOrdered By: Otiliacache junctionestrella De La Pazmklana on 01-31-2025 Erythrocyte distribution width (RBC) [Ratio] 45.0 fl High 35.1-43.9 [facility] GFR/1.73 sq M.predicted [place] g non-blacks MDRD (S/P/Bld) [Vol rate/Area]Ordered By: Buzz Rainey on 01-31-2025 Estimated GFR (MDRD) Non-Af Amer 49 Low >60 [facility] Comment on above: mL/min/1.73m2 CKD-EP I Creatinine Equation (2020) Glomerular filtration rate ( GFR) estimation/1.73 sq m using serum, plasma, or whole bOrdered By: Buzz Rainey on 01-31-2025 GFR/1.73 sq M.predicted among non-blacks MDRD (S/P/Bld) [Vol rate/Area] 49 mL/min/{1.73_m2} Low >60 [facility] Comment on above: mL/min/1.73m2 CKD-EP I Creatinine Equation (2020) Hematocrit Auto (Bld) [Volum e fraction]Ordered By: Buzz Rainey on 01-31-2025 Hematocrit (Bld) [Volume fraction] 39.9 % Low 40-54 [facility] Hemoglobin A1c percentageOrd ered By: Buzz Rainey on 01-31-2025 HbA1c (Bld) [Mass fraction] 7.9 % >5.7 [facility] Hemoglobin measurementOrdere d By: Buzz Rainey on 01-31-2025 Hemoglobin (Bld) [Mass/Vol] 13.8 g/dL 13.0-16.5 [facility] Immature granulocytes/100 WB C Auto (Bld)Ordered By: Buzz Rainey on 01-31-2025 Immature granulocytes/100 WBC (Bld) 0.200 % 0.0-0.9 [facility] Comment on above: IG% - Immature Granu locytes (promyelocytes, myelocytes and metamyelocytes) > 1% indicates that a LEFT SHIFT is Present. Laboratory - Chemistry and C hemistry - challengeOrdered By: Buzz Rainey on 01-31-2025 AST [Catalytic activity/Vol] 32 U/L <38 [facility] Lymphocytes Auto (Unsp spec) [#/Vol]Ordered By: Buzz Rainey on 01-31-2025 Lymphocytes (Bld) [#/Vol] 0.83 10*3/uL 0.83-4.51 [facility] Lymphocytes/100 WBC Auto (Un sp spec)Ordered By: Buzz Rainey on 01-31-2025 Lymphocytes/100 WBC (Bld) 16.0 % Low 19-41 [facility] MCV (mean corpuscular volume ) determinationOrdered By: Buzz Rainey on 01-31-2025 MCV (RBC) [Entitic vol] 99.8 fL High 80-94 [facility] Magnesium (Unsp spec) [Mass/ Vol]Ordered By: Buzz Rainey on 01-31-2025 Magnesium [Mass/Vol] 2.2 mg/dL 1.5-2.2 [facility] Magnesium measurement (mass/ volume)Ordered By: Buzz Rainey on 01-31-2025 Magnesium (Unsp spec) [Mass/Vol] 2.2 mg/dL 1.5-2.2 [facility] Mean corpuscular hemoglobin (MCH) determinationOrdered By: Buzz Rainey on 01-31-2025 MCH (RBC) [Entitic mass] 34.5 pg High 27.0-32.0 [facility] Mean corpuscular hemoglobin concentration (MCHC) determinationOrdered By: Buzz Rainey on 01-31-2025 MCHC (RBC) [Mass/Vol] 34.6 g/dL 32-36 [facility] Mean platelet volume determi nationOrdered By: Buzz Rainey on 01-31-2025 Platelet mean volume (Bld) [Entitic vol] 10.6 fL 6.2-12.0 [facility] Monocyte percentageOrdered B y: Buzz Rainey on 01-31-2025 Monocytes/100 WBC (Bld) 12.7 % High 0-10 [facility] Neutrophil percentageOrdered By: Buzz Rainey on 01-31-2025 Neutrophils/100 WBC (Bld) 64.5 % 47-70 [facility] Nucleated red blood cell per centageOrdered By: Buzz Rainey on 01-31-2025 Nucleated RBC/100 WBC (Bld) [Ratio] 0 % 0-5 [facility] Platelet countOrdered By: Alexandra Rainey on 01-31-2025 Platelets (Bld) [#/Vol] 218 10*3/uL 150-450 [facility] Potassium (Unsp spec) [Mass/ Vol]Ordered By: Buzz Rainey on 01-31-2025 Potassium [Moles/Vol] 5.3 mmol/L High 3.3-5.1 [facility] Potassium measurement (mass/ volume)Ordered By: Buzz Rainey on 01-31-2025 Potassium (Unsp spec) [Mass/Vol] 5.3 mmol/L High 3.3-5.1 [facility] RBC Auto (Bld) [#/Vol]Ordere d By: Buzz Rainey on 01-31-2025 RBC (Bld) [#/Vol] 4.00 10*6/uL Low 4.6-6.2 [facility] Serum creatinine measurement (mass/volume)Ordered By: Buzz Rainey on 01-31-2025 Creatinine [Mass/Vol] 1.43 mg/dL High 0.70-1.20 [facility] Serum globulin measurementOr dered By: Buzz Rainey on 01-31-2025 Globulin (S) [Mass/Vol] 2.8 g/dL 2.2-4.2 [facility] Serum glucose measurement (m ass/volume)Ordered By: Buzz Rainey on 01-31-2025 Glucose [Mass/Vol] 265 mg/dL High 70-99 [facility] Serum or plasma alanine nix otransferase (ALT) measurementOrdered By: Buzz Rainey on 01-31-2025 ALT [Catalytic activity/Vol] 35 U/L <47 [facility] Serum or plasma albumin jesenia urement (mass/volume)Ordered By: Buzz Rainey on 01-31-2025 Albumin [Mass/Vol] 4.3 g/dL 3.4-4.8 [facility] Serum or plasma alkaline radha sphatase measurementOrdered By: Buzz Rainey on 01-31-2025 ALP [Catalytic activity/Vol] 83 U/L 40-129 [facility] Serum or plasma calcium jesenia urement (mass/volume)Ordered By: Buzz Rainey on 01-31-2025 Calcium [Mass/Vol] 9.3 mg/dL 7.6-11.0 [facility] Serum or plasma urea nitroge n measurement (mass/volume)Ordered By: Buzz Rainey on 01-31-2025 Urea nitrogen [Mass/Vol] 40 mg/dL High 4-19 [facility] Sodium levelOrdered By: Otilia baileyjovan Redd on 01-31-2025 Sodium [Moles/Vol] 137 mmol/L 133-145 [facility] Total proteinOrdered By: Franklin Rainey on 01-31-2025 Protein [Mass/Vol] 7.1 g/dL 5.9-8.4 [facility] Vitamin D, 25-hydroxyOrdered By: Buzz Rainey on 01-31-2025 Vitamin D 25-Hydroxy 38.8 ng/mL 30-100 [facility] Comment on above: Vitamin D StatusDefi ciency: <20 ng/mL (50nmol/L)Insufficiency: 20-30 ng/mL (50-75 nmol/L)Sufficiency: 30-100 ng/mL (75-250 nmol/L)Toxicity: >100 ng/mL (>250 nmol/L) White blood cell (WBC) count Ordered By: Buzz Rainey on 01-31-2025 WBC (Bld) [#/Vol] 5.2 10*3/uL 4.4-11.0 [facility] CBC panel Auto (Bld)on 01-22 Erythrocyte distribution width (RBC) [Ratio] 12.4 % 11.5 - 15.0 % [facility] Hematocrit (Bld) [Volume fraction] 37.7 % Low 39.0 - 51.0 % [facility] Hemoglobin (Bld) [Mass/Vol] 12.8 g/dL Low 13.0 - 17.0 g/dL [facility] Interpretation and review of laboratory results Abnormal [facility] MCH (RBC) [Entitic mass] 33.3 pg 26.0 - 34.0 pg [facility] MCHC (RBC) [Mass/Vol] 34 g/dL 30.5 - 36.0 g/dL [facility] MCV (RBC) [Entitic vol] 98.2 fL 80.0 - 100.0 fL [facility] Nucleated RBC (Bld) [#/Vol] NINF [facility] Platelet mean volume (Bld) [Entitic vol] 9.4 fL 9.0 - 12.7 fL [facility] Platelets (Bld) [#/Vol] 216 10*3/uL [facility] RBC (Bld) [#/Vol] 3.84 10*6/uL Low 4.20 - 6.0 0 m/uL [facility] WBC (Bld) [#/Vol] 5.09 10*3/uL [facility] Erythrocyte distribution width (RBC) [Ratio] 12.4 % Normal 11.5-15.0 [facility] Comment on above: Order Comment: Speci men Type: BLOOD SPECIMEN Ordering Facility: [facility] Address: [address] [place] [address] Performed By: #### 5 8410-2 #### [facility] [id number] [address] [place] [id number] [place] [address] [place] Hematocrit (Bld) [Volume fraction] 37.7 % Low 39.0-51.0 [facility] Comment on above: Order Comment: Speci men Type: BLOOD SPECIMEN Ordering Facility: [facility] Address: [address] [place], [place] [address] Performed By: #### 5 8410-2 #### [facility] CLIA [id number] [address] [place] [address] [place] Hemoglobin (Bld) [Mass/Vol] 12.8 g/dL Low 13.0-17.0 [facility] Comment on above: Order Comment: Speci men Type: BLOOD SPECIMEN Ordering Facility: [facility] Address: [address] [place] [address] Performed By: #### 5 8410-2 #### [id number] [address] [place] [address] [place] MCH (RBC) [Entitic mass] 33.3 pg Normal 26.0-34.0 [facility] Comment on above: Order Comment: Speci men Type: BLOOD SPECIMEN Ordering Facility: [facility] Address: [address] [place] [address] Performed By: #### 5 8410-2 #### [facility] [id number] [address] [place] [address] [place] MCHC (RBC) [Mass/Vol] 34.0 g/dL Normal 30.5-36.0 [facility] Comment on above: Order Comment: Speci men Type: BLOOD SPECIMEN Ordering Facility: [facility] Address: [address] [place] [address] Performed By: #### 5 8410-2 #### [facility] [id number] [address] [place] [address] [place] MCV (RBC) [Entitic vol] 98.2 fL Normal 80.0-100.0 C [facility] Comment on above: Order Comment: Speci men Type: BLOOD SPECIMEN Ordering Facility: [facility] Address: [address] [place] [address] Performed By: #### 5 8410-2 #### [facility] CLIA [id number] [address] [place] [address] [place] Nucleated RBC (Bld) [#/Vol] 10*3/uL Normal <0.01 [facility] Comment on above: Order Comment: Speci men Type: BLOOD SPECIMEN Ordering Facility: [facility] Address: [address] [place] [address] Performed By: #### 5 8410-2 #### [facility] CLIA [id number] [address] [place] [address] [place] Platelet mean volume (Bld) [Entitic vol] 9.4 fL Normal 9.0-12.7 [facility] Comment on above: Order Comment: Speci men Type: BLOOD SPECIMEN Ordering Facility: [facility] Address: [address] [place] [address] Performed By: #### 5 8410-2 #### [facility] CLIA [id number] [address] [place] [address] [place] Platelets (Bld) [#/Vol] 216 10*3/uL Normal 150-400 [facility] Comment on above: Order Comment: Speci men Type: BLOOD SPECIMEN Ordering Facility: [facility] Address: [address] [place] [address] Performed By: #### 5 8410-2 #### [facility] CLIA [id number] [address] [place] [address] [place] RBC (Bld) [#/Vol] 3.84 10*6/uL Low 4.20-6.[address] [facility] Comment on above: Order Comment: Speci men Type: BLOOD SPECIMEN Ordering Facility: [facility] Address: [address] [place] [address] Performed By: #### 5 8410-2 #### [facility] CLIA [id number] [address] [place] [address] [place] WBC (Bld) [#/Vol] 5.09 10*3/uL Normal 3.70-11.[address] [facility] Comment on above: Order Comment: Speci men Type: BLOOD SPECIMEN Ordering Facility: [facility] Address: [address] [place], [place] [address] [address] Performed By: #### 5 8410-2 #### [facility] CLIA [id number] [address] [place] [address] [place] CNOVon 01-22-2025 CNOV Office Visit (GONZALO ) FLEX KLINE ([id number]) 1940 M Date Time Provider Department 01/22/25 1:40 PM HARJINDER JONES During your visit today, we recorded the following information about you: Pulse Respiration Blood pressure Weight 91/minute 14/minute 156/70 79.8 kg Height 1.765 m Harjinder Jones MD 01/22/2025 2:39 PM Signed Harjinder Jones MD Interventional Cardiology [address] [place] [address] [phone] Chief Complaint Patient presents with: Follow Up: [...] inflammatory demyelinating polyneuropathy) (HCC) Coronary atherosclerosis Diabetes ([facility]) 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 Normal [facility] Comprehensive metabolic 2000 panelOrdered By: Jasmina Young on 01-22-2025 Albumin [Mass/Vol] 4.1 g/dL 3.9 - 4.9 g/dL [facility] ALP [Catalytic activity/Vol] 76 U/L 38 - 113 U/L [facility] ALT [Catalytic activity/Vol] 20 U/L 10 - 54 U/L [facility] Anion gap [Moles/Vol] 9 mmol/L 8 - 15 mmol/L [facility] AST [Catalytic activity/Vol] 19 U/L 14 - 40 U/L [facility] Bilirubin [Mass/Vol] 0.6 mg/dL 0.2 - 1 .3 mg/dL [facility] Calcium [Mass/Vol] 9.3 mg/dL 8.5 - 10. 2 mg/dL [facility] Chloride [Moles/Vol] 103 mmol/L 98 - 10 7 mmol/L [facility] CO2 [Moles/Vol] 27 mmol/L 22 - 30 mmol/L [facility] Creatinine [Mass/Vol] 1.32 mg/dL High 0.73 - 1.22 mg/dL [facility] GFR/1.73 sq M.predicted among non-blacks MDRD (S/P/Bld) [Vol rate/Area] 54 mL/min/{1.73_m2} Low - PINF [facility] Comment on above: Estimated Glomerular Filtration [...] 171 mg/dL High 74 - 99 mg/dL [facility] Comment on above: The [place] [employer] (ADA) provides guidance for [...] Standards of Medical Care in Diabetes 2016, [place] [employer]. Diabetes Care. 2016.39(Suppl 1). Interpretation and review of laboratory results Abnormal [facility] Potassium [Moles/Vol] 5.1 mmol/L 3.7 - 5.1 mmol/L [facility] Protein [Mass/Vol] 6.7 g/dL 6.3 - 8.0 g/dL [facility] Sodium [Moles/Vol] 139 mmol/L 136 - 144 mmol/L [facility] Urea nitrogen [Mass/Vol] 30 mg/dL High 9 - 24 mg/dL [facility] Comprehensive metabolic 2000 panelon 01-22-2025 Albumin [Mass/Vol] 4.1 g/dL Normal 3.9-4.9 [facility] Comment on above: Order Comment: Speci men Type: BLOOD SPECIMEN Ordering Facility: [facility] Address: [address] [place] [id number] Performed By: #### 2 4323-8 #### [facility] CLIA [id number] [address] [place] [address] [place] ALP [Catalytic activity/Vol] 76 U/L Normal 38-113 [facility] Comment on above: Order Comment: Speci men Type: BLOOD SPECIMEN Ordering Facility: [facility] Address: [address] [place] [address] Performed By: #### 2 4323-8 #### [facility] CLIA [id number] [address] [place] [address] [place] ALT [Catalytic activity/Vol] 20 U/L Normal 10-54 [facility] Comment on above: Order Comment: Speci men Type: BLOOD SPECIMEN Ordering Facility: [facility] Address: [address] [place] [address] Performed By: #### 2 4323-8 #### [facility] CLIA [id number] [address] [place] [address] [place] Anion gap [Moles/Vol] 9 mmol/L Normal 8-15 [facility] Comment on above: Order Comment: Speci men Type: BLOOD SPECIMEN Ordering Facility: [facility] Address: [facility] [place] [address] Performed By: #### 2 4323-8 #### [facility] CLIA [id number] [address] [place] [address] [place] AST [Catalytic activity/Vol] 19 U/L Normal 14-40 [facility] Comment on above: Order Comment: Speci men Type: BLOOD SPECIMEN Ordering Facility: [facility] Address: [address] [facility] [place] [address] Performed By: #### 2 4323-8 #### [facility] CLIA [id number] [address] [place] [address] [place] Bilirubin [Mass/Vol] 0.6 mg/dL Normal 0.2-1.3 [facility] Comment on above: Order Comment: Speci men Type: BLOOD SPECIMEN Ordering Facility: [facility] Address: [address] [place] [address] Performed By: #### 2 4323-8 #### [facility] CLIA [id number] [address] [place] [address] [place] Calcium [Mass/Vol] 9.3 mg/dL Normal 8.5-10.2 [facility] Comment on above: Order Comment: Speci men Type: BLOOD SPECIMEN Ordering Facility: [facility] Address: [address] [place] [address] Performed By: #### 2 4323-8 #### [facility] CLIA [id number] [address] [place] [address] [place] Chloride [Moles/Vol] 103 mmol/L Normal 98-107 [facility] Comment on above: Order Comment: Speci men Type: BLOOD SPECIMEN Ordering Facility: [facility] Address: [address] [place] [address] Performed By: #### 2 4323-8 #### [facility] CLIA [id number] [address] [place] [address] [place] CO2 [Moles/Vol] 27 mmol/L Normal 22-30 [facility] Comment on above: Order Comment: Speci men Type: BLOOD SPECIMEN Ordering Facility: [facility] Address: [address] [place] [address] Performed By: #### 2 4323-8 #### [facility] CLIA [id number] [address] [place] [address] [place] Creatinine [Mass/Vol] 1.32 mg/dL High 0.73-1.22 [facility] Comment on above: Order Comment: Speci men Type: BLOOD SPECIMEN Ordering Facility: [facility] Address: [address] [place] [address] Performed By: #### 2 4323-8 #### [facility] CLIA [id number] [address] [place] [address] [place] Creatinine and Glomerular filtration rate.predicted panel (S/P/Bld) 54 mL/min/1.73m??? Low >=60 [facility] Comment on above: Order Comment: Krystyna funk Type: BLOOD SPECIMEN Ordering Facility: [facility] Address: [address] [place] [address] Result Comment: Beatrice mated Glomerular Filtration Rate [...] GFR. Performed By: #### 2 4323-8 #### [facility] [id number] [address] [place] [address] [place] Glucose [Mass/Vol] 171 mg/dL High 74-99 [facility] Comment on above: Order Comment: Krystyna funk Type: BLOOD SPECIMEN Ordering Facility: [facility] Address: [address] [place] [address] Result Comment: The [place] [employer] (ADA) provides guidance for cutoff [...] Standards of Medical Care in Diabetes 2016, [place] [employer]. Diabetes Care. 2016.39(Suppl 1). Performed By: #### 2 4323-8 #### [facility] [id number] [address] [place] [address] [place] Potassium [Moles/Vol] 5.1 mmol/L Normal 3.7-5.1 [facility] Comment on above: Order Comment: Speci men Type: BLOOD SPECIMEN Ordering Facility: [facility] Address: [address] [place], [place] [address] Performed By: #### 2 4323-8 #### [facility] CLIA [id number] [address] [place] [address] [place] Protein [Mass/Vol] 6.7 g/dL Normal 6.3-8.0 [facility] Comment on above: Order Comment: Speci men Type: BLOOD SPECIMEN Ordering Facility: [facility] Address: [address] [place] [address] Performed By: #### 2 4323-8 #### [facility] [id number] [address] [place] [address] [place] Sodium [Moles/Vol] 139 mmol/L Normal 136-144 [facility] Comment on above: Order Comment: Speci men Type: BLOOD SPECIMEN Order[facility] Facility: [facility] Address: [address] [place] [address] Performed By: #### 2 4323-8 #### [facility] [id number] [address] [place] [address] [place] Urea nitrogen [Mass/Vol] 30 mg/dL High 9-24 [facility] Comment on above: Order Comment: Speci men Type: BLOOD SPECIMEN Ordering Facility: [facility] Address: [address] [place], [place] [address] Performed By: #### 2 4323-8 #### [facility] [id number] [address] [place] [address] [place] NT-proBNP [facility] 01-22 Natriuretic peptide.B prohormone N-Terminal [Mass/Vol] 437 pg/mL Normal <450 [facility] Comment on above: Order Comment: Speci men Type: BLOOD SPECIMEN Order[facility] Facility: [facility] Address: [facility] [place] [address] Performed By: #### 3 3762-6, 3016-3 #### [facility] CLIA [id number] [address] [place] [address] [place] TSH SerPl-aCncon 01-22-2025 TSH Qn 5.250 m[IU]/L High 0.270-4.200 [facility] Comment on above: Order Comment: Speci men Type: BLOOD SPECIMEN Ordering Facility: [facility] Address: [facility] [place] [address] Performed By: #### 3 3762-6, 3016-3 #### [facility] CLIA [id number] [address] [place] Absolute lymphocyte countOrd ered By: Buzz Rainey on 01-04-2025 Lymphocytes Auto (Unsp spec) [#/Vol] 0.86 10*3/uL 0.83-4.51 [facility] Absolute neutrophil countOrd ered By: Buzz Rainey on 01-04-2025 Neutrophils (Bld) [#/Vol] 2.9 10*3/uL 2.0-7.7 [facility] Automated lymphocyte count a s percentage of total leukocytesOrdered By: Buzz Rainey on 01-04-2025 Lymphocytes/100 WBC Auto (Unsp spec) 17.8 % Low 19-41 [facility] Basophil percentageOrdered B y: Buzz Rainey on 01-04-2025 Basophils/100 WBC (Bld) 0.6 % 0-1 W [facility] Blood urea nitrogen (BUN)/cr eatinine ratioOrdered By: Buzz Rainey on 01-04-2025 Urea nitrogen/Creatinine [Mass ratio] 19.2 mg/mg 10-20 [facility] Carbon dioxide measurementOr dered By: Buzz Rainey on 01-04-2025 CO2 [Moles/Vol] 30.0 mmol/L 21.0-32.0 [facility] Chloride measurementOrdered By: Buzz Rainey on 01-04-2025 Chloride [Moles/Vol] 107 mmol/L 98-107 [facility] Eosinophil percentageOrdered By: Buzz Rainey on 01-04-2025 Eosinophils/100 WBC (Bld) 7.7 % High 0-5 [facility] Erythrocyte distribution wid th (RBC) [Ratio]Ordered By: Buzz Rainey on 01-04-2025 Erythrocyte distribution width (RBC) [Entitic vol] 46.5 fL High 35.1-43.9 [facility] Erythrocyte distribution wid th ratioOrdered By: Buzz Rainey on 01-04-2025 Erythrocyte distribution width (RBC) [Ratio] 12.4 % 11.6-14.6 [facility] Erythrocyte distribution wid th standard deviationOrdered By: Buzz Rainey on 01-04-2025 Erythrocyte distribution width (RBC) [Ratio] 46.5 fl High 35.1-43.9 [facility] Estimated glomerular filtrat ion rate (GFR) AmericanOrdered By: Buzz Rainey on 01-04-2025 Estimated GFR (MDRD) Amer 57 mL/min Low >60 [facility] Comment on above: GFR Calc Glomerular filtration rate ( GFR) estimationOrdered By: Buzz Rainey on 01-04-2025 Estimated GFR (MDRD) Non-Af Amer 47 mL/min Low >60 [facility] Comment on above: Non- GFR Calc GFR/1.73 sq M.predicted among non-blacks MDRD (S/P/Bld) [Vol rate/Area] 47 mL/min/{1.73_m2} Low >60 [facility] Comment on above: Non- GFR Calc Glucose measurementOrdered B y: Buzz Rainey on 01-04-2025 Glucose [Mass/Vol] 225 mg/dL High 74-106 [facility] Comment on above: Glucose result great er than or equal to 200 mg/dLsuggests DIABETES MELLITUS per A.D.A. criteria. Hematocrit Auto (Bld) [Volum e fraction]Ordered By: Buzz Rainey on 01-04-2025 Hematocrit (Bld) [Volume fraction] 39.9 % Low 40-54 [facility] Hemoglobin measurementOrdere d By: Alexandrayumikohueyestrella De La Pazmklana on 01-04-2025 Hemoglobin (Bld) [Mass/Vol] 13.1 g/dL 13.0-16.5 [facility] Immature granulocytes/100 WB C Auto (Bld)Ordered By: tamanna Rainey on 01-04-2025 Immature granulocytes/100 WBC (Bld) 0.200 % 0.0-0.9 [facility] Comment on above: IG% - Immature Granu locytes (promyelocytes, myelocytes and metamyelocytes) > 1% indicates that a LEFT SHIFT is Present. Lymphocytes Auto (Unsp spec) [#/Vol]Ordered By: Buzz Rainey on 01-04-2025 Lymphocytes (Bld) [#/Vol] 0.86 10*3/uL 0.83-4.51 [facility] Lymphocytes/100 WBC Auto (Un sp spec)Ordered By: Buzz Rainey on 01-04-2025 Lymphocytes/100 WBC (Bld) 17.8 % Low 19-41 [facility] MCV (mean corpuscular volume ) determinationOrdered By: Buzz Rainey on 01-04-2025 MCV (RBC) [Entitic vol] 101.0 fL High 80-94 [facility] Mean corpuscular hemoglobin (MCH) determinationOrdered By: tamanna Rainey on 01-04-2025 MCH (RBC) [Entitic mass] 33.2 pg High 27.0-32.0 [facility] Mean corpuscular hemoglobin concentration (MCHC) determinationOrdered By: tamanna Rainey on 01-04-2025 MCHC (RBC) [Mass/Vol] 32.8 g/dL 32-36 [facility] Mean platelet volume determi nationOrdered By: tamanna Rainey on 01-04-2025 Platelet mean volume (Bld) [Entitic vol] 10.0 fL 6.2-12.0 [facility] Monocyte percentageOrdered B y: Buzz Rainey on 02-13-2025 Monocytes/100 WBC (Bld) 12.8 % High 0-10 [facility] Neutrophil percentageOrdered By: Buzz Rainey on 01-04-2025 Neutrophils/100 WBC (Bld) 60.9 % 47-70 [facility] Nucleated red blood cell per centageOrdered By: Buzz Rainey on 01-04-2025 Nucleated RBC/100 WBC (Bld) [Ratio] 0 % 0-5 [facility] Platelet countOrdered By: Alexandra Rainey on 01-04-2025 Platelets (Bld) [#/Vol] 217 10*3/uL 150-450 [facility] Potassium measurementOrdered By: Buzz Rainey on 01-04-2025 Potassium [Moles/Vol] 4.5 mmol/L 3.5-5.1 [facility] Comment on above: Slight Hemolysis, Re sult may be falsely increased. RBC Auto (Bld) [#/Vol]Ordere d By: Buzz Rainey on 01-04-2025 RBC (Bld) [#/Vol] 3.95 10*6/uL Low 4.6-6.2 [facility] Serum anion gap measurementO rdered By: Buzz Rainey on 01-04-2025 Anion gap [Moles/Vol] 4 mmol/L Low 5-15 [facility] Serum or plasma calcium jesenia urement (mass/volume)Ordered By: Buzz Rainey on 01-04-2025 Calcium [Mass/Vol] 8.9 mg/dL 8.5-10.1 [facility] Serum or plasma creatinine m easurement (mass/volume)Ordered By: Buzz Rainey on 01-04-2025 Creatinine [Mass/Vol] 1.51 mg/dL High 0.70-1.30 [facility] Comment on above: The validity of the calculated GFR & GFRAA in patients over 70 years has not been determined. Clinical correlation is essential. Serum or plasma urea nitroge n measurement (mass/volume)Ordered By: Buzz Rainey on 01-04-2025 Urea nitrogen [Mass/Vol] 29 mg/dL High 7-18 [facility] Sodium levelOrdered By: Otilia Monreallana on 01-04-2025 Sodium [Moles/Vol] 141 mmol/L 136-145 [facility] White blood cell (WBC) count Ordered By: Buzz Rainey on 01-04-2025 WBC (Bld) [#/Vol] 4.8 10*3/uL 4.4-11.0 [facility] Absolute lymphocyte countOrd ered By: Buzz Rainey on 12-07-2024 Lymphocytes Auto (Unsp spec) [#/Vol] 1.34 10*3/uL 0.83-4.51 [facility] Absolute neutrophil countOrd ered By: Buzz Rainey on 12-07-2024 Neutrophils (Bld) [#/Vol] 3.2 10*3/uL 2.0-7.7 [facility] Automated lymphocyte count a s percentage of total leukocytesOrdered By: Alexandrayumikoarthur Brainlavelle on 12-07-2024 Lymphocytes/100 WBC Auto (Unsp spec) 24.8 % 19-41 [facility] Basophil percentageOrdered B y: Buzz Brainlavelle on 12-07-2024 Basophils/100 WBC (Bld) 0.6 % 0-1 [facility] Blood urea nitrogen (BUN)/cr eatinine ratioOrdered By: Alexandrayumikoarthur Brainmklana on 12-07-2024 Urea nitrogen/Creatinine [Mass ratio] 18.5 mg/mg 10-20 [facility] Carbon dioxide measurementOr dered By: Alexandrayumikoarthur Brainmklana on 12-07-2024 CO2 [Moles/Vol] 27.0 mmol/L 21.0-32.0 [facility] Chloride measurementOrdered By: Buzz De La Pazmklana on 12-07-2024 Chloride [Moles/Vol] 106 mmol/L 98-107 [facility] Eosinophil percentageOrdered By: Codyestrlela De LaP azmklana on 12-07-2024 Eosinophils/100 WBC (Bld) 5.5 % High 0-5 [facility] Erythrocyte distribution wid th (RBC) [Ratio]Ordered By: Alexandrayumikohueyestrella De La Pazmklana on 12-07-2024 Erythrocyte distribution width (RBC) [Entitic vol] 46.2 fL High 35.1-43.9 [facility] Erythrocyte distribution wid th ratioOrdered By: Buzz Rainey on 12-07-2024 Erythrocyte distribution width (RBC) [Ratio] 12.3 % 11.6-14.6 [facility] Erythrocyte distribution wid th standard deviationOrdered By: Buzz Rainey on 12-07-2024 Erythrocyte distribution width (RBC) [Ratio] 46.2 fl High 35.1-43.9 [facility] Estimated glomerular filtrat ion rate (GFR) AmericanOrdered By: Buzz Rainey on 12-07-2024 Estimated GFR (MDRD) Amer 59 mL/min Low >60 [facility] Comment on above: GFR Calc Glomerular filtration rate ( GFR) estimationOrdered By: Buzz Rainey on 12-07-2024 Estimated GFR (MDRD) Non-Af Amer 49 mL/min Low >60 [facility] Comment on above: Non- GFR Calc GFR/1.73 sq M.predicted among non-blacks MDRD (S/P/Bld) [Vol rate/Area] 49 mL/min/{1.73_m2} Low >60 [facility] Comment on above: Non- GFR Calc Glucose measurementOrdered B y: Buzz Rainey on 12-07-2024 Glucose [Mass/Vol] 129 mg/dL High 74-106 [facility] Comment on above: Fasting Glucose resu lt greater than or equal to 126 mg/dL suggests DIABETES MELLITUS per A.D.A. criteria. Hematocrit Auto (Bld) [Volum e fraction]Ordered By: Buzz Rainey on 12-07-2024 Hematocrit (Bld) [Volume fraction] 40.6 % 40-54 [facility] Hemoglobin measurementOrdere d By: Buzz Rainey on 12-07-2024 Hemoglobin (Bld) [Mass/Vol] 13.4 g/dL 13.0-16.5 [facility] Immature granulocytes/100 WB C Auto (Bld)Ordered By: Buzz Rainey on 12-07-2024 Immature granulocytes/100 WBC (Bld) 0.200 % 0.0-0.9 [facility] Comment on above: IG% - Immature Granu locytes (promyelocytes, myelocytes and metamyelocytes) > 1% indicates that a LEFT SHIFT is Present. Lymphocytes Auto (Unsp spec) [#/Vol]Ordered By: Buzz Rainey on 12-07-2024 Lymphocytes (Bld) [#/Vol] 1.34 10*3/uL 0.83-4.51 [facility] Lymphocytes/100 WBC Auto (Un sp spec)Ordered By: Buzz Rainey on 12-07-2024 Lymphocytes/100 WBC (Bld) 24.8 % 19-41 [facility] MCV (mean corpuscular volume ) determinationOrdered By: Buzz Rainey on 12-07-2024 MCV (RBC) [Entitic vol] 102.8 fL High 80-94 [facility] Mean corpuscular hemoglobin (MCH) determinationOrdered By: Buzz Rainey on 12-07-2024 MCH (RBC) [Entitic mass] 33.9 pg High 27.0-32.0 [facility] Mean corpuscular hemoglobin concentration (MCHC) determinationOrdered By: tamanna Rainey on 12-07-2024 MCHC (RBC) [Mass/Vol] 33.0 g/dL 32-36 [facility] Mean platelet volume determi nationOrdered By: Buzz Rainey on 12-07-2024 Platelet mean volume (Bld) [Entitic vol] 10.0 fL 6.2-12.0 [facility] Monocyte percentageOrdered B y: Buzz Rainey on 12-07-2024 Monocytes/100 WBC (Bld) 9.4 % 0-10 [facility] Neutrophil percentageOrdered By: tamanna Rainey on 12-07-2024 Neutrophils/100 WBC (Bld) 59.5 % 47-70 [facility] Nucleated red blood cell per centageOrdered By: Buzz Rainey on 12-07-2024 Nucleated RBC/100 WBC (Bld) [Ratio] 0 % 0-5 [facility] Platelet countOrdered By: Alexandra Rainey on 12-07-2024 Platelets (Bld) [#/Vol] 217 10*3/uL 150-450 [facility] Potassium measurementOrdered By: Buzz Rainey on 12-07-2024 Potassium [Moles/Vol] 4.8 mmol/L 3.5-5.1 [facility] RBC Auto (Bld) [#/Vol]Ordere d By: Buzz Rainey on 12-07-2024 RBC (Bld) [#/Vol] 3.95 10*6/uL Low 4.6-6.2 [facility] Serum anion gap measurementO rdered By: Buzz Rainey on 12-07-2024 Anion gap [Moles/Vol] 5 mmol/L 5-15 [facility] Serum or plasma calcium jesenia urement (mass/volume)Ordered By: Buzz Rainey on 12-07-2024 Calcium [Mass/Vol] 9.1 mg/dL 8.5-10.1 [facility] Serum or plasma creatinine m easurement (mass/volume)Ordered By: Buzz Rainey on 12-07-2024 Creatinine [Mass/Vol] 1.46 mg/dL High 0.70-1.30 [facility] Comment on above: The validity of the calculated GFR & GFRAA in patients over 70 years has not been determined. Clinical correlation is essential. Serum or plasma urea nitroge n measurement (mass/volume)Ordered By: Buzz Rainey on 12-07-2024 Urea nitrogen [Mass/Vol] 27 mg/dL High 7-18 [facility] Sodium levelOrdered By: Otilia Rainey on 12-07-2024 Sodium [Moles/Vol] 138 mmol/L 136-145 [facility] White blood cell (WBC) count Ordered By: Buzz Rainey on 12-07-2024 WBC (Bld) [#/Vol] 5.4 10*3/uL 4.4-11.0 [facility] Absolute lymphocyte countOrd ered By: Buzz Rainey on 11-30-2024 Lymphocytes Auto (Unsp spec) [#/Vol] 1.16 10*3/uL 0.83-4.51 [facility] Absolute neutrophil countOrd ered By: Buzz Rainey on 11-30-2024 Neutrophils (Bld) [#/Vol] 2.8 10*3/uL 2.0-7.7 [facility] Automated lymphocyte count a s percentage of total leukocytesOrdered By: Buzz Rainey on 11-30-2024 Lymphocytes/100 WBC Auto (Unsp spec) 23.3 % 19-41 [facility] Basophil percentageOrdered B y: Buzz Rainey on 11-30-2024 Basophils/100 WBC (Bld) 0.6 % 0-1 [facility] Blood urea nitrogen (BUN)/cr eatinine ratioOrdered By: Otiliacache junctionestrella Rainey on 11-30-2024 Urea nitrogen/Creatinine [Mass ratio] 21.4 mg/mg High 10-20 [facility] Carbon dioxide measurementOr dered By: Buzz Rainey on 11-30-2024 CO2 [Moles/Vol] 28.0 mmol/L 21.0-32.0 [facility] Cardiology Visit Reporton Cardiology Visit Report [facility] [address] [place] [address] OFFICE VISIT Date of Service: 11/30/24 MR#: [id number] Acct: [id number] Name: FLEX KLINE Rep #: [id number] : 1940 Provider: Dr. 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 Normal [facility] Chloride measurementOrdered By: Buzz Rainey on 11-30-2024 Chloride [Moles/Vol] 105 mmol/L 98-107 [facility] Eosinophil percentageOrdered By: Buzz Rainey on 11-30-2024 Eosinophils/100 WBC (Bld) 6.6 % High 0-5 [facility] Erythrocyte distribution wid th (RBC) [Ratio]Ordered By: Buzz Rainey on 11-30-2024 Erythrocyte distribution width (RBC) [Entitic vol] 46.9 fL High 35.1-43.9 [facility] Erythrocyte distribution wid th ratioOrdered By: tamanna Rainey on 11-30-2024 Erythrocyte distribution width (RBC) [Ratio] 12.4 % 11.6-14.6 [facility] Erythrocyte distribution wid th standard deviationOrdered By: Buzz Rainey on 11-30-2024 Erythrocyte distribution width (RBC) [Ratio] 46.9 fl High 35.1-43.9 [facility] Estimated glomerular filtrat ion rate (GFR) AmericanOrdered By: Buzz Rainey on 11-30-2024 Estimated GFR (MDRD) Amer 62 mL/min >60 [facility] Comment on above: GFR Calc Glomerular filtration rate ( GFR) estimationOrdered By: Buzz Rainey on 11-30-2024 Estimated GFR (MDRD) Non-Af Amer 52 mL/min Low >60 [facility] Comment on above: Non- GFR Calc GFR/1.73 sq M.predicted among non-blacks MDRD (S/P/Bld) [Vol rate/Area] 52 mL/min/{1.73_m2} Low >60 [facility] Comment on above: Non- GFR Calc Glucose measurementOrdered B y: Buzz Rainey on 11-30-2024 Glucose [Mass/Vol] 119 mg/dL High 74-106 [facility] Comment on above: Fasting Glucose resu lt from 100 to 125 mg/dL suggests IMPAIRED HOMEOSTASIS per A.D.A. criteria. Hematocrit Auto (Bld) [Volum e fraction]Ordered By: Buzz Rainey on 11-30-2024 Hematocrit (Bld) [Volume fraction] 40.2 % 40-54 [facility] Hemoglobin measurementOrdere d By: Buzz Rainey on 11-30-2024 Hemoglobin (Bld) [Mass/Vol] 13.2 g/dL 13.0-16.5 [facility] Immature granulocytes/100 WB C Auto (Bld)Ordered By: Buzz Rainey on 11-30-2024 Immature granulocytes/100 WBC (Bld) 0.400 % 0.0-0.9 [facility] Comment on above: IG% - Immature Granu locytes (promyelocytes, myelocytes and metamyelocytes) > 1% indicates that a LEFT SHIFT is Present. Lymphocytes Auto (Unsp spec) [#/Vol]Ordered By: Buzz Rainey on 11-30-2024 Lymphocytes (Bld) [#/Vol] 1.16 10*3/uL 0.83-4.51 [facility] Lymphocytes/100 WBC Auto (Un sp spec)Ordered By: Buzz Rainey on 11-30-2024 Lymphocytes/100 WBC (Bld) 23.3 % 19-41 [facility] MCV (mean corpuscular volume ) determinationOrdered By: Buzz Rainey on 11-30-2024 MCV (RBC) [Entitic vol] 103.1 fL High 80-94 [facility] Mean corpuscular hemoglobin (MCH) determinationOrdered By: yumikocache junctionestrella Rainey on 11-30-2024 MCH (RBC) [Entitic mass] 33.8 pg High 27.0-32.0 [facility] Mean corpuscular hemoglobin concentration (MCHC) determinationOrdered By: Buzz Rainey on 11-30-2024 MCHC (RBC) [Mass/Vol] 32.8 g/dL 32-36 [facility] Mean platelet volume determi nationOrdered By: Buzz Rainey on 11-30-2024 Platelet mean volume (Bld) [Entitic vol] 10.2 fL 6.2-12.0 [facility] Monocyte percentageOrdered B y: Buzz Rainey on 11-30-2024 Monocytes/100 WBC (Bld) 11.9 % High 0-10 [facility] Neutrophil percentageOrdered By: Buzz Rainey on 11-30-2024 Neutrophils/100 WBC (Bld) 57.2 % 47-70 [facility] Nucleated red blood cell per centageOrdered By: Buzz Rainey on 11-30-2024 Nucleated RBC/100 WBC (Bld) [Ratio] 0 % 0-5 [facility] Platelet countOrdered By: Alexandra Rainey on 11-30-2024 Platelets (Bld) [#/Vol] 212 10*3/uL 150-450 [facility] Potassium measurementOrdered By: Buzz Rainey on 11-30-2024 Potassium [Moles/Vol] 4.4 mmol/L 3.5-5.1 [facility] RBC Auto (Bld) [#/Vol]Ordere d By: Buzz Rainey on 11-30-2024 RBC (Bld) [#/Vol] 3.90 10*6/uL Low 4.6-6.2 [facility] Serum anion gap measurementO rdered By: Buzz Rainey on 11-30-2024 Anion gap [Moles/Vol] 6 mmol/L 5-15 [facility] Serum or plasma calcium jesenia urement (mass/volume)Ordered By: Buzz Rainey on 11-30-2024 Calcium [Mass/Vol] 8.8 mg/dL 8.5-10.1 [facility] Serum or plasma creatinine m easurement (mass/volume)Ordered By: Buzz Rainey on 11-30-2024 Creatinine [Mass/Vol] 1.40 mg/dL High 0.70-1.30 [facility] Comment on above: The validity of the calculated GFR & GFRAA in patients over 70 years has not been determined. Clinical correlation is essential. Serum or plasma urea nitroge n measurement (mass/volume)Ordered By: Buzz Rainey on 11-30-2024 Urea nitrogen [Mass/Vol] 30 mg/dL High 7-18 [facility] Sodium levelOrdered By: Otilia Rainey on 11-30-2024 Sodium [Moles/Vol] 139 mmol/L 136-145 [facility] White blood cell (WBC) count Ordered By: Buzz Rainey on 11-30-2024 WBC (Bld) [#/Vol] 5.0 10*3/uL 4.4-11.0 [facility] Absolute neutrophil countOrd ered By: Buzz Rainey on 11-23-2024 Neutrophils (Bld) [#/Vol] 3.4 10*3/uL 2.0-7.7 [facility] Basophil percentageOrdered B y: Buzz Rainey on 11-23-2024 Basophils/100 WBC (Bld) 0.5 % 0-1 [facility] Blood urea nitrogen (BUN)/cr eatinine ratioOrdered By: Buzz Rainey on 11-23-2024 Urea nitrogen/Creatinine [Mass ratio] 19.8 mg/mg 10-20 [facility] Carbon dioxide measurementOr dered By: Buzz Rainey on 11-23-2024 CO2 [Moles/Vol] 28.0 mmol/L 21.0-32.0 [facility] Chloride measurementOrdered By: Buzz Rainey on 11-23-2024 Chloride [Moles/Vol] 104 mmol/L 98-107 [facility] Eosinophil percentageOrdered By: Buzz Rainey on 11-23-2024 Eosinophils/100 WBC (Bld) 6.0 % High 0-5 [facility] Erythrocyte distribution wid th (RBC) [Ratio]Ordered By: Buzz Rainey on 11-23-2024 Erythrocyte distribution width (RBC) [Entitic vol] 43.7 fL 35.1-43.9 [facility] Erythrocyte distribution wid th ratioOrdered By: Buzz Rainey on 11-23-2024 Erythrocyte distribution width (RBC) [Ratio] 11.9 % 11.6-14.6 [facility] Estimated glomerular filtrat ion rate (GFR) AmericanOrdered By: Buzz Rainey on 11-23-2024 Estimated GFR (MDRD) Amer 67 mL/min >60 [facility] Comment on above: GFR Calc Glomerular filtration rate ( GFR) estimationOrdered By: Buzz Rainey on 11-23-2024 Estimated GFR (MDRD) Non-Af Amer 56 mL/min Low >60 [facility] Comment on above: Non- GFR Calc Glucose measurementOrdered B y: Buzz Rainey on 11-23-2024 Glucose [Mass/Vol] 119 mg/dL High 74-106 [facility] Comment on above: Fasting Glucose resu lt from 100 to 125 mg/dL suggests IMPAIRED HOMEOSTASIS per A.D.A. criteria. Hematocrit Auto (Bld) [Volum e fraction]Ordered By: Buzz Rainey on 11-23-2024 Hematocrit (Bld) [Volume fraction] 40.4 % 40-54 [facility] Hemoglobin measurementOrdere d By: Buzz Rainey on 11-23-2024 Hemoglobin (Bld) [Mass/Vol] 13.8 g/dL 13.0-16.5 [facility] Immature granulocytes/100 WB C Auto (Bld)Ordered By: Buzz Rainey on 11-23-2024 Immature granulocytes/100 WBC (Bld) 0.400 % 0.0-0.9 [facility] Comment on above: IG% - Immature Granu locytes (promyelocytes, myelocytes and metamyelocytes) > 1% indicates that a LEFT SHIFT is Present. Lymphocytes Auto (Unsp spec) [#/Vol]Ordered By: Buzz Rainey on 11-23-2024 Lymphocytes (Bld) [#/Vol] 1.22 10*3/uL 0.83-4.51 [facility] Lymphocytes/100 WBC Auto (Un sp spec)Ordered By: Buzz Raniey on 11-23-2024 Lymphocytes/100 WBC (Bld) 21.4 % 19-41 [facility] MCV (mean corpuscular volume ) determinationOrdered By: Buzz Rainey on 11-23-2024 MCV (RBC) [Entitic vol] 99.5 fL High 80-94 [facility] Mean corpuscular hemoglobin (MCH) determinationOrdered By: Buzz Rainey on 11-23-2024 MCH (RBC) [Entitic mass] 34.0 pg High 27.0-32.0 [facility] Mean corpuscular hemoglobin concentration (MCHC) determinationOrdered By: Buzz Rainey on 11-23-2024 MCHC (RBC) [Mass/Vol] 34.2 g/dL 32-36 [facility] Mean platelet volume determi nationOrdered By: Buzz Rainey on 11-23-2024 Platelet mean volume (Bld) [Entitic vol] 10.2 fL 6.2-12.0 [facility] Monocyte percentageOrdered B y: Buzz Rainey on 11-23-2024 Monocytes/100 WBC (Bld) 12.4 % High 0-10 [facility] Neutrophil percentageOrdered By: Buzz Rainey on 11-23-2024 Neutrophils/100 WBC (Bld) 59.3 % 47-70 [facility] Nucleated red blood cell per centageOrdered By: Buzz Rainey on 11-23-2024 Nucleated RBC/100 WBC (Bld) [Ratio] 0 % 0-5 [facility] Platelet countOrdered By: Alexandra Rainey on 11-23-2024 Platelets (Bld) [#/Vol] 219 10*3/uL 150-450 [facility] Potassium measurementOrdered By: Buzz Rainey on 11-23-2024 Potassium [Moles/Vol] 4.7 mmol/L 3.5-5.1 [facility] RBC Auto (Bld) [#/Vol]Ordere d By: Buzz Rainey on 11-23-2024 RBC (Bld) [#/Vol] 4.06 10*6/uL Low 4.6-6.2 [facility] Serum anion gap measurementO rdered By: Buzz Rainey on 11-23-2024 Anion gap [Moles/Vol] 5 mmol/L 5-15 [facility] Serum or plasma calcium jesenia urement (mass/volume)Ordered By: Buzz Rainey on 11-23-2024 Calcium [Mass/Vol] 9.2 mg/dL 8.5-10.1 [facility] Serum or plasma creatinine m easurement (mass/volume)Ordered By: Buzz Rainey on 11-23-2024 Creatinine [Mass/Vol] 1.31 mg/dL High 0.70-1.30 [facility] Comment on above: The validity of the calculated GFR & GFRAA in patients over 70 years has not been determined. Clinical correlation is essential. Serum or plasma urea nitroge n measurement (mass/volume)Ordered By: Buzz Rainey on 11-23-2024 Urea nitrogen [Mass/Vol] 26 mg/dL High 7-18 [facility] Sodium levelOrdered By: Otilia gibson Brainmklana on 11-23-2024 Sodium [Moles/Vol] 136 mmol/L 136-145 [facility] White blood cell (WBC) count Ordered By: Buzz De La Pazmklana on 11-23-2024 WBC (Bld) [#/Vol] 5.7 10*3/uL 4.4-11.0 [facility] Absolute neutrophil countOrd ered By: Buzz De La Pazmklana on 11-16-2024 Neutrophils (Bld) [#/Vol] 3.9 10*3/uL 2.0-7.7 [facility] Basophil percentageOrdered B y: Buzz Rainey on 11-16-2024 Basophils/100 WBC (Bld) 0.7 % 0-1 [facility] Blood urea nitrogen (BUN)/cr eatinine ratioOrdered By: Buzz De La Pazmklana on 11-16-2024 Urea nitrogen/Creatinine [Mass ratio] 18.8 mg/mg 10-20 [facility] Carbon dioxide measurementOr dered By: Buzz Rainey on 11-16-2024 CO2 [Moles/Vol] 25.0 mmol/L 21.0-32.0 [facility] Chloride measurementOrdered By: Buzz Rainey on 11-16-2024 Chloride [Moles/Vol] 105 mmol/L 98-107 [facility] Eosinophil percentageOrdered By: Buzz De La Pazmklana on 11-16-2024 Eosinophils/100 WBC (Bld) 6.1 % High 0-5 [facility] Erythrocyte distribution wid th (RBC) [Ratio]Ordered By: Buzz Rainey on 11-16-2024 Erythrocyte distribution width (RBC) [Entitic vol] 43.8 fL 35.1-43.9 [facility] Erythrocyte distribution wid th ratioOrdered By: tamanna Rainey on 11-16-2024 Erythrocyte distribution width (RBC) [Ratio] 11.9 % 11.6-14.6 [facility] Estimated glomerular filtrat ion rate (GFR) AmericanOrdered By: Buzz Rainey on 11-16-2024 Estimated GFR (MDRD) Amer 56 mL/min Low >60 [facility] Comment on above: GFR Calc Glomerular filtration rate ( GFR) estimationOrdered By: Buzz Rainey on 11-16-2024 Estimated GFR (MDRD) Non-Af Amer 46 mL/min Low >60 [facility] Comment on above: Non- GFR Calc Glucose measurementOrdered B y: Buzz Rainey on 11-16-2024 Glucose [Mass/Vol] 130 mg/dL High 74-106 [facility] Comment on above: Fasting Glucose resu lt greater than or equal to 126 mg/dL suggests DIABETES MELLITUS per A.D.A. criteria. Hematocrit Auto (Bld) [Volum e fraction]Ordered By: Buzz Rainey on 11-16-2024 Hematocrit (Bld) [Volume fraction] 37.6 % Low 40-54 [facility] Hemoglobin measurementOrdere d By: Buzz Rainey on 11-16-2024 Hemoglobin (Bld) [Mass/Vol] 12.7 g/dL Low 13.0-16.5 [facility] [facility] Immature granulocytes/100 WB C Auto (Bld)Ordered By: Buzz Rainey on 11-16-2024 Immature granulocytes/100 WBC (Bld) 0.200 % 0.0-0.9 [facility] Comment on above: IG% - Immature Granu locytes (promyelocytes, myelocytes and metamyelocytes) > 1% indicates that a LEFT SHIFT is Present. Lymphocytes Auto (Unsp spec) [#/Vol]Ordered By: Buzz Rainey on 11-16-2024 Lymphocytes (Bld) [#/Vol] 1.20 10*3/uL 0.83-4.51 [facility] Lymphocytes/100 WBC Auto (Un sp spec)Ordered By: Buzz Rainey on 11-16-2024 Lymphocytes/100 WBC (Bld) 19.8 % 19-41 [facility] MCV (mean corpuscular volume ) determinationOrdered By: Buzz Rainey on 11-16-2024 MCV (RBC) [Entitic vol] 100.5 fL High 80-94 [facility] Mean corpuscular hemoglobin (MCH) determinationOrdered By: Buzz Rainey on 11-16-2024 MCH (RBC) [Entitic mass] 34.0 pg High 27.0-32.0 [facility] Mean corpuscular hemoglobin concentration (MCHC) determinationOrdered By: Buzz Rainey on 11-16-2024 MCHC (RBC) [Mass/Vol] 33.8 g/dL 32-36 [facility] Mean platelet volume determi nationOrdered By: Buzz Rainey on 11-16-2024 Platelet mean volume (Bld) [Entitic vol] 10.0 fL 6.2-12.0 [facility] Monocyte percentageOrdered B y: Buzz Rainey on 11-16-2024 Monocytes/100 WBC (Bld) 9.1 % 0-10 [facility] Neutrophil percentageOrdered By: Buzz Rainey on 11-16-2024 Neutrophils/100 WBC (Bld) 64.1 % 47-70 [facility] Nucleated red blood cell per centageOrdered By: Buzz Rainey on 11-16-2024 Nucleated RBC/100 WBC (Bld) [Ratio] 0 % 0-5 [facility] Platelet countOrdered By: Alexandra yumikoarthur Rainey on 11-16-2024 Platelets (Bld) [#/Vol] 210 10*3/uL 150-450 [facility] Potassium measurementOrdered By: Buzz Rainey on 11-16-2024 Potassium [Moles/Vol] 4.9 mmol/L 3.5-5.1 [facility] Comment on above: Slight Hemolysis, Re sult may be falsely increased. RBC Auto (Bld) [#/Vol]Ordere d By: Buzz Rainey on 11-16-2024 RBC (Bld) [#/Vol] 3.74 10*6/uL Low 4.6-6.2 [facility] Serum anion gap measurementO rdered By: Buzz Rainey on 11-16-2024 Anion gap [Moles/Vol] 5 mmol/L 5-15 [facility] Serum or plasma calcium jesenia urement (mass/volume)Ordered By: Buzz Rainye on 11-16-2024 Calcium [Mass/Vol] 9.0 mg/dL 8.5-10.1 [facility] Serum or plasma creatinine m easurement (mass/volume)Ordered By: Buzz Rainey on 11-16-2024 Creatinine [Mass/Vol] 1.54 mg/dL High 0.70-1.30 [facility] Comment on above: The validity of the calculated GFR & GFRAA in patients over 70 years has not been determined. Clinical correlation is essential. Serum or plasma urea nitroge n measurement (mass/volume)Ordered By: Buzz Rainey on 11-16-2024 Urea nitrogen [Mass/Vol] 29 mg/dL High 7-18 [facility] Sodium levelOrdered By: Otilia Rainey on 11-16-2024 Sodium [Moles/Vol] 135 mmol/L Low 136-145 [facility] White blood cell (WBC) count Ordered By: Buzz Rainey on 11-16-2024 WBC (Bld) [#/Vol] 6.1 10*3/uL 4.4-11.0 [facility] Absolute neutrophil countOrd ered By: Buzz Rainey on 11-09-2024 Neutrophils (Bld) [#/Vol] 3.1 10*3/uL 2.0-7.7 [facility] Basophil percentageOrdered B y: Buzz Rainey on 11-09-2024 Basophils/100 WBC (Bld) 0.8 % 0-1 [facility] Blood urea nitrogen (BUN)/cr eatinine ratioOrdered By: Buzz Rainey on 11-09-2024 Urea nitrogen/Creatinine [Mass ratio] 21.8 mg/mg High 10-20 [facility] Carbon dioxide measurementOr dered By: Buzz Rainey on 11-09-2024 CO2 [Moles/Vol] 27.0 mmol/L 21.0-32.0 [facility] Chloride measurementOrdered By: Buzz Rainey on 11-09-2024 Chloride [Moles/Vol] 105 mmol/L 98-107 [facility] Eosinophil percentageOrdered By: Buzz Brainmklana on 11-09-2024 Eosinophils/100 WBC (Bld) 9.1 % High 0-5 [facility] Erythrocyte distribution wid th (RBC) [Ratio]Ordered By: yumikocache junctionestrella De La Pazmklana on 11-09-2024 Erythrocyte distribution width (RBC) [Entitic vol] 43.2 fL 35.1-43.9 [facility] Erythrocyte distribution wid th ratioOrdered By: [facility] De La Pazmklana on 11-09-2024 Erythrocyte distribution width (RBC) [Ratio] 11.8 % 11.6-14.6 [facility] Estimated glomerular filtrat ion rate (GFR) AmericanOrdered By: Alexandratamanna Rainey on 11-09-2024 Estimated GFR (MDRD) Amer 72 mL/min >60 [facility] Comment on above: GFR Calc Glomerular filtration rate ( GFR) estimationOrdered By: Buzz Rainey on 11-09-2024 Estimated GFR (MDRD) Non-Af Amer 59 mL/min Low >60 [facility] Comment on above: Non- GFR Calc Glucose measurementOrdered B y: Alexandrayumikohueyestrella De La Pazmklana on 11-09-2024 Glucose [Mass/Vol] 145 mg/dL High 74-106 [facility] Comment on above: Fasting Glucose resu lt greater than or equal to 126 mg/dL suggests DIABETES MELLITUS per A.D.A. criteria. Hematocrit Auto (Bld) [Volum e fraction]Ordered By: Buzz Rainey on 11-09-2024 Hematocrit (Bld) [Volume fraction] 38.3 % Low 40-54 [facility] Hemoglobin measurementOrdere d By: Alexandrayumikohueyestrella De La Pazmklana on 11-09-2024 Hemoglobin (Bld) [Mass/Vol] 12.9 g/dL Low 13.0-16.5 [facility] Immature granulocytes/100 WB C Auto (Bld)Ordered By: Buzz Rainey on 11-09-2024 Immature granulocytes/100 WBC (Bld) 0.400 % 0.0-0.9 [facility] Comment on above: IG% - Immature Granu locytes (promyelocytes, myelocytes and metamyelocytes) > 1% indicates that a LEFT SHIFT is Present. Lymphocytes Auto (Unsp spec) [#/Vol]Ordered By: Buzz Rainey on 11-09-2024 Lymphocytes (Bld) [#/Vol] 1.10 10*3/uL 0.83-4.51 [facility] Lymphocytes/100 WBC Auto (Un sp spec)Ordered By: Buzz Rainey on 11-09-2024 Lymphocytes/100 WBC (Bld) 21.3 % 19-41 [facility] MCV (mean corpuscular volume ) determinationOrdered By: Buzz Rainey on 11-09-2024 MCV (RBC) [Entitic vol] 100.3 fL High 80-94 [facility] Mean corpuscular hemoglobin (MCH) determinationOrdered By: Buzz Rainey on 11-09-2024 MCH (RBC) [Entitic mass] 33.8 pg High 27.0-32.0 [facility] Mean corpuscular hemoglobin concentration (MCHC) determinationOrdered By: tamanna Rainey on 11-09-2024 MCHC (RBC) [Mass/Vol] 33.7 g/dL 32-36 [facility] Mean platelet volume determi nationOrdered By: Buzz Rainey on 11-09-2024 Platelet mean volume (Bld) [Entitic vol] 10.0 fL 6.2-12.0 [facility] Monocyte percentageOrdered B y: Buzz Rainey on 11-09-2024 Monocytes/100 WBC (Bld) 9.1 % 0-10 [facility] Neutrophil percentageOrdered By: tamanna Rainey on 11-09-2024 Neutrophils/100 WBC (Bld) 59.3 % 47-70 [facility] Nucleated red blood cell per centageOrdered By: Bzuz Rainey on 11-09-2024 Nucleated RBC/100 WBC (Bld) [Ratio] 0 % 0-5 [facility] Platelet countOrdered By: Alexandra Rainey on 11-09-2024 Platelets (Bld) [#/Vol] 225 10*3/uL 150-450 [facility] Potassium measurementOrdered By: Buzz Rainey on 11-09-2024 Potassium [Moles/Vol] 4.5 mmol/L 3.5-5.1 [facility] RBC Auto (Bld) [#/Vol]Ordere d By: Buzz Rainey on 11-09-2024 RBC (Bld) [#/Vol] 3.82 10*6/uL Low 4.6-6.2 [facility] Serum anion gap measurementO rdered By: Buzz Rainey on 11-09-2024 Anion gap [Moles/Vol] 4 mmol/L Low 5-15 [facility] Serum or plasma calcium jesenia urement (mass/volume)Ordered By: Buzz Rainey on 11-09-2024 Calcium [Mass/Vol] 8.8 mg/dL 8.5-10.1 [facility] Serum or plasma creatinine m easurement (mass/volume)Ordered By: Buzz Rainey on 11-09-2024 Creatinine [Mass/Vol] 1.24 mg/dL 0.70-1.30 [facility] Comment on above: The validity of the calculated GFR & GFRAA in patients over 70 years has not been determined. Clinical correlation is essential. Serum or plasma urea nitroge n measurement (mass/volume)Ordered By: Buzz Rainey on 11-09-2024 Urea nitrogen [Mass/Vol] 27 mg/dL High 7-18 [facility] Sodium levelOrdered By: Otilia Rainey on 11-09-2024 Sodium [Moles/Vol] 136 mmol/L 136-145 [facility] White blood cell (WBC) count Ordered By: Buzz Rainey on 11-09-2024 WBC (Bld) [#/Vol] 5.2 10*3/uL 4.4-11.0 [facility] 08-VJ-Wpseaie DOrdered By: Lana Rainey on 11-03-2024 Vitamin D 25-Hydroxy 37.4 ng/mL [facility] Comment on above: Vitamin D 25(OH) Sta tus Range Deficiency <20 ng/mL (50nmol/L) Insufficiency 20 - 30 ng/mL (50 - 75 nmol/L) Sufficiency 30 - 100 ng/mL (75 - 250 nmol/L) Toxicity >100 ng/mL (>250 nmol/L) Absolute neutrophil countOrd ered By: Buzz Rainey on 11-03-2024 Neutrophils (Bld) [#/Vol] 3.2 10*3/uL 2.0-7.7 [facility] Albumin to globulin ratioOrd ered By: Buzz Rainey on 11-03-2024 Albumin/Globulin [Mass ratio] 1.0 {ratio} 0.9-2.4 [facility] Basophil percentageOrdered B y: Buzz Rainey on 11-03-2024 Basophils/100 WBC (Bld) 0.4 % 0-1 [facility] Bilirubin, totalOrdered By: Buzz Rainey on 11-03-2024 Bilirubin [Mass/Vol] 0.80 mg/dL 0.20-1.00 [facility] Comment on above: For patients on eltr ombopag therapy, use of Dimension Amawalk TBIL is not recommended. Blood urea nitrogen (BUN)/cr eatinine ratioOrdered By: Buzz Rainey on 11-03-2024 Urea nitrogen/Creatinine [Mass ratio] 24.5 mg/mg High 10-20 [facility] Carbon dioxide measurementOr dered By: Buzz Rainey on 11-03-2024 CO2 [Moles/Vol] 23.0 mmol/L 21.0-32.0 [facility] Chloride measurementOrdered By: Buzz Rainey on 11-03-2024 Chloride [Moles/Vol] 105 mmol/L 98-107 [facility] Eosinophil percentageOrdered By: Buzz Rainey on 11-03-2024 Eosinophils/100 WBC (Bld) 8.6 % High 0-5 [facility] Erythrocyte distribution wid th (RBC) [Ratio]Ordered By: Buzz Rainey on 11-03-2024 Erythrocyte distribution width (RBC) [Entitic vol] 44.9 fL High 35.1-43.9 [facility] Erythrocyte distribution wid th ratioOrdered By: Buzz Rainey on 11-03-2024 Erythrocyte distribution width (RBC) [Ratio] 12.0 % 11.6-14.6 [facility] Estimated glomerular filtrat ion rate (GFR) AmericanOrdered By: Buzz Rainey on 11-03-2024 Estimated GFR (MDRD) Amer 61 mL/min >60 [facility] Comment on above: GFR Calc Glomerular filtration rate ( GFR) estimationOrdered By: Buzz Rainey on 11-03-2024 Estimated GFR (MDRD) Non-Af Amer 50 mL/min Low >60 [facility] Comment on above: Non- GFR Calc Glucose measurementOrdered B y: Buzz Rainey on 11-03-2024 Glucose [Mass/Vol] 146 mg/dL High 74-106 [facility] Comment on above: Fasting Glucose resu lt greater than or equal to 126 mg/dL suggests DIABETES MELLITUS per A.D.A. criteria. Hematocrit Auto (Bld) [Volum e fraction]Ordered By: Buzz Rainey on 11-03-2024 Hematocrit (Bld) [Volume fraction] 43.0 % 40-54 [facility] Hemoglobin A1c percentageOrd ered By: Buzz Rainey on 11-03-2024 HbA1c (Bld) [Mass fraction] 6.6 % High 3.8-5.6 [facility] Comment on above: Normal < 5.7 % Predi abetic 5.7 - 6.4 % Diabetic >or= 6.5 % Please note range changes. Hemoglobin measurementOrdere d By: Buzz Rainey on 11-03-2024 Hemoglobin (Bld) [Mass/Vol] 14.7 g/dL 13.0-16.5 [facility] High density lipoprotein (HD L) measurementOrdered By: Buzz Rainey 11-03-2024 Cholesterol in HDL [Mass/Vol] 57 mg/dL >40 [facility] Comment on above: The drugs N-Acetylcy steine and Metamizole may falsely depress this assay. Reference Range HDL <40 mg/dL Low HDL Cholesterol HDL >or= 60 mg/dL High HDL Cholesterol Immature granulocytes/100 WB C Auto (Bld)Ordered By: Buzz Rainey on 11-03-2024 Immature granulocytes/100 WBC (Bld) 0.200 % 0.0-0.9 [facility] Comment on above: IG% - Immature Granu locytes (promyelocytes, myelocytes and metamyelocytes) > 1% indicates that a LEFT SHIFT is Present. Laboratory - Chemistry and C hemistry - challengeOrdered By: Buzz Rainey on 11-03-2024 AST [Catalytic activity/Vol] 41 U/L High 15-37 [facility] Low density lipoprotein (LDL ) cholesterol measurementOrdered By: Buzz Rainey on 11-03-2024 Cholesterol in LDL [Mass/Vol] 97 mg/dL 0-130 [facility] Lymphocytes Auto (Unsp spec) [#/Vol]Ordered By: Buzz Rainey on 11-03-2024 Lymphocytes (Bld) [#/Vol] 0.87 10*3/uL 0.83-4.51 [facility] Lymphocytes/100 WBC Auto (Un sp spec)Ordered By: Buzz Rainey on 11-03-2024 Lymphocytes/100 WBC (Bld) 17.4 % Low 19-41 [facility] MCV (mean corpuscular volume ) determinationOrdered By: Buzz Rainey on 11-03-2024 MCV (RBC) [Entitic vol] 101.2 fL High 80-94 [facility] Magnesium measurementOrdered By: Buzz Rainey on 11-03-2024 Magnesium [Mass/Vol] 2.2 mg/dL 1.6-2.6 [facility] Mean corpuscular hemoglobin (MCH) determinationOrdered By: Buzz Rainey on 11-03-2024 MCH (RBC) [Entitic mass] 34.6 pg High 27.0-32.0 [facility] Mean corpuscular hemoglobin concentration (MCHC) determinationOrdered By: Buzz Rainey on 11-03-2024 MCHC (RBC) [Mass/Vol] 34.2 g/dL 32-36 [facility] Mean platelet volume determi nationOrdered By: Buzz Rainey on 11-03-2024 Platelet mean volume (Bld) [Entitic vol] 9.9 fL 6.2-12.0 [facility] Monocyte percentageOrdered B y: Buzz Rainey on 11-03-2024 Monocytes/100 WBC (Bld) 10.4 % High 0-10 [facility] Neutrophil percentageOrdered By: Buzz Rainey on 11-03-2024 Neutrophils/100 WBC (Bld) 63.0 % 47-70 [facility] Nucleated red blood cell per centageOrdered By: Buzz Rainey on 11-03-2024 Nucleated RBC/100 WBC (Bld) [Ratio] 0 % 0-5 [facility] Platelet countOrdered By: Alexandra Rainey on 11-03-2024 Platelets (Bld) [#/Vol] 190 10*3/uL 150-450 [facility] Potassium measurementOrdered By: Buzz Rainey on 11-03-2024 Potassium [Moles/Vol] 5.0 mmol/L 3.5-5.1 [facility] RBC Auto (Bld) [#/Vol]Ordere d By: Buzz Rainey on 11-03-2024 RBC (Bld) [#/Vol] 4.25 10*6/uL Low 4.6-6.2 [facility] Serum anion gap measurementO rdered By: Buzz Rainey on 11-03-2024 Anion gap [Moles/Vol] 8 mmol/L 5-15 [facility] Serum globulin measurementOr dered By: Buzz Rainey on 11-03-2024 Globulin (S) [Mass/Vol] 3.8 g/dL 2.2-4.2 [facility] Serum or plasma alanine nix otransferase (ALT) measurementOrdered By: Buzz Rainey on 11-03-2024 ALT [Catalytic activity/Vol] 20 U/L 16-61 [facility] Serum or plasma albumin jesenia urement (mass/volume)Ordered By: Buzz Rainey on 11-03-2024 Albumin [Mass/Vol] 3.7 g/dL 3.2-5.0 [facility] Serum or plasma alkaline radha sphatase measurementOrdered By: Buzz Rainey on 11-03-2024 ALP [Catalytic activity/Vol] 77 U/L 45-117 [facility] Serum or plasma calcium jesenia urement (mass/volume)Ordered By: Buzz Rainye on 11-03-2024 Calcium [Mass/Vol] 9.3 mg/dL 8.5-10.1 [facility] Serum or plasma cholesterol measurement (mass/volume)Ordered By: Buzz Rainey on 11-03-2024 Cholesterol [Mass/Vol] 175 mg/dL <200 [facility] Comment on above: <200 mg/dL Desirable 200-240 mg/dL Borderline >240 mg/dL High Risk Serum or plasma creatinine m easurement (mass/volume)Ordered By: Buzz Rainey on 11-03-2024 Creatinine [Mass/Vol] 1.43 mg/dL High 0.70-1.30 [facility] Comment on above: The validity of the calculated GFR & GFRAA in patients over 70 years has not been determined. Clinical correlation is essential. Serum or plasma urea nitroge n measurement (mass/volume)Ordered By: Buzz Rainey on 11-03-2024 Urea nitrogen [Mass/Vol] 35 mg/dL High 7-18 [facility] Sodium levelOrdered By: Otilia Rainey on 11-03-2024 Sodium [Moles/Vol] 136 mmol/L 136-145 [facility] Total proteinOrdered By: Franklin Rainey on 11-03-2024 Protein [Mass/Vol] 7.5 g/dL 6.4-8.2 [facility] Triglycerides measurementOrd ered By: Buzz Rainey on 11-03-2024 Triglyceride [Mass/Vol] 105 mg/dL <199 [facility] Comment on above: The drugs N-Acetylcy steine and Metamizole may falsely depress this assay.Serum Triglycerides Reference Interval Normal <150 mg/dL Borderline high 150 - 199 mg/dL High 200 - 499 mg/dL Very High > or = 500 mg/dL Very low density lipoprotein (VLDL) cholesterol measurementOrdered By: Buzz Rainey 11-03-2024 VLDL Cholesterol 21 mg/dL 5-40 [facility] White blood cell (WBC) count Ordered By: Buzz Rainey on 11-03-2024 WBC (Bld) [#/Vol] 5.0 10*3/uL 4.4-11.0 [facility] Bedside Glucoseon 11-01-2024 FINGERSTICK GLU 163 mg/dL High 74-106 [facility] Comment on above: Result Comment: ARNOLD GEMENT OF PATIENT CARE PER NURSING PROTOCOL Performed By: #### L 501.080 ####[facility] [address] [facility] [address] FINGERSTICK GLU 212 mg/dL High [address] [place] [address] Comment on above: Result Comment: ARNOLD GEMENT OF PATIENT CARE PER NURSING PROTOCOL Performed By: #### L 501.080 #### [facility] [address] [facility] [address] FINGERSTICK GLU 125 mg/dL [address] Comment on above: Result Comment: ARNOLD GEMENT OF PATIENT CARE PER NURSING PROTOCOL Performed By: #### L 501.080 #### [facility] [address] [place], [address] [facility] at [facility] deOrdered By: Sung Rhodes on 11-01-2024 Bedside Glucose (Misc Panel) 163 mg/dL High [facility]106 [facility] Comment on above: MANAGEMENT OF PATIEN T CARE PER NURSING PROTOCOL Bedside Glucoseon 10-31-2024 FINGERSTICK GLU 125 mg/dL High [facility]106 [facility] Comment on above: Result Comment: ARNOLD GEMENT OF PATIENT CARE PER NURSING PROTOCOL Performed By: #### L 501.080 #### [facility] [address] [facility] [address] FINGERSTICK GLU 136 mg/dL [address] Comment on above: Result Comment: ARNOLD GEMENT OF PATIENT CARE PER NURSING PROTOCOL Performed By: #### L 501.080 #### [facility] [address] [place], [address] FINGERSTICK GLU 207 mg/dL High 74-106 [facility] Comment on above: Result Comment: ARNOLD GEMENT OF PATIENT CARE PER NURSING PROTOCOL Performed By: #### L 501.080 ####[facility] [address] [place], [address] FINGERSTICK GLU 297 mg/dL High [facility]106 [facility] Comment on above: Result Comment: ARNOLD GEMENT OF PATIENT CARE PER NURSING PROTOCOL Performed By: #### L 501.080 ####[facility] [address] [place], [address] Bedside Glucoseon 10-30-2024 FINGERSTICK GLU 216 mg/dL High [address] [place] [address] Comment on above: Result Comment: ARNOLD GEMENT OF PATIENT CARE PER NURSING PROTOCOL Performed By: #### L 501.080 #### [facility] [address] [place], [address] FINGERSTICK GLU 256 mg/dL High [address] [place] [address] Comment on above: Result Comment: ARNOLD GEMENT OF PATIENT CARE PER NURSING PROTOCOL Performed By: #### L 501.080 ####[facility] [address] [place], [address] FINGERSTICK GLU 197 mg/dL High -[address] [place] [address] Comment on above: Result Comment: ARNOLD GEMENT OF PATIENT CARE PER NURSING PROTOCOL Performed By: #### L 501.080 ####[facility] [address] [place], [address] FINGERSTICK GLU 177 mg/dL High [address] [place] [address] Comment on above: Result Comment: ARNOLD GEMENT OF PATIENT CARE PER NURSING PROTOCOL Performed By: #### L 501.080 #### [facility] [address] [place], [address] FINGERSTICK GLU 188 mg/dL High [address] [place] [address] Comment on above: Result Comment: ARNOLD GEMENT OF PATIENT CARE PER NURSING PROTOCOL Performed By: #### L 501.080 #### [facility] [address] [place], [address] Absolute neutrophil countOrd ered By: Roderick Mehran on 10-29-2024 Neutrophils (Bld) [#/Vol] 3.8 10*3/uL 2.0-7.7 [facility] Albumin to globulin ratioOrd ered By: Roderick Laurent on 10-29-2024 Albumin/Globulin [Mass ratio] 1.2 {ratio} 0.9-2.4 [facility] Basophil percentageOrdered B y: Roderick Mehran on 10-29-2024 Basophils/100 WBC (Bld) 0.7 % 0-1 [facility] Bedside Glucoseon 10-29-2024 FINGERSTICK GLU 255 mg/dL High [address] [place] [address] Comment on above: Result Comment: ARNOLD GEMENT OF PATIENT CARE PER NURSING PROTOCOL Performed By: #### L 501.080 #### [facility] [address] [place], [address] FINGERSTICK GLU 214 mg/dL [address] Comment on above: Result Comment: ARNOLD GEMENT OF PATIENT CARE PER NURSING PROTOCOL Performed By: #### L 501.080 #### [facility] [address] [place], [address] FINGERSTICK GLU 189 mg/dL [address] Comment on above: Result Comment: ARNOLD GEMENT OF PATIENT CARE PER NURSING PROTOCOL Performed By: #### L 501.080 ####[facility] [address] [place], [address] FINGERSTICK GLU 161 mg/dL [address] Comment on above: Result Comment: ARNOLD GEMENT OF PATIENT CARE PER NURSING PROTOCOL Performed By: #### L 501.080 #### [facility] [address] [place], [address] FINGERSTICK GLU 198 mg/dL High 74-106 [facility] Comment on above: Result Comment: ARNOLD GEMENT OF PATIENT CARE PER NURSING PROTOCOL Performed By: #### L 501.080 #### [facility] [address] [place], [address] FINGERSTICK GLU 328 mg/dL High 74-106 [facility] Comment on above: Result Comment: ARNOLD GEMENT OF PATIENT CARE PER NURSING PROTOCOL Performed By: #### L 501.080 #### [facility] [address] [place], [address] Bilirubin, totalOrdered By: Roderick Laurent on 10-29-2024 Bilirubin [Mass/Vol] 0.60 mg/dL 0.20-1.00 [facility] Comment on above: For patients on eltr ombopag therapy, use of Dimension Amawalk TBIL is not recommended. Blood urea nitrogen (BUN)/cr eatinine ratioOrdered By: Roderick Laurent on 10-29-2024 Urea nitrogen/Creatinine [Mass ratio] 23.6 mg/mg High 10-20 [facility] CBC W/Diff, Automatedon 12-0 Absolute Lymph 0.93 X10 3/uL Normal 0.83-4.51 [facility] Comment on above: Performed By: #### L [id number], L100.0100 ####[facility] [address] [place], [address] Absolute Neut 3.8 X10 3/uL Normal 2.0-7.7 [facility] Comment on above: Performed By: #### L [id number], L100.0100 ####[facility] [address] [place], [address] Basophils/100 WBC (Bld) 0.7 % Normal 0-1 [facility] Comment on above: Performed By: #### L [id number], L100.0100 ####[facility] [address] [place], [address] Eosinophils/100 WBC (Bld) 3.5 % Normal 0-5 [facility] Comment on above: Performed By: #### L [id number], L100.0100 ####[facility] [address] [place], [address] Erythrocyte distribution width (RBC) [Ratio] 11.9 % Normal 11.6-14.6 [facility] Comment on above: Performed By: #### L [id number], L100.0100 ####[facility] [address] [place], [address] Hematocrit (Bld) [Volume fraction] 40.5 % Normal 40-54 [facility] Comment on above: Performed By: #### L [id number], L100.0100 ####[facility] [address] [place], [address] Hemoglobin (Bld) [Mass/Vol] 13.6 g/dL Normal 13.0-16.5 [facility] Comment on above: Performed By: #### L [id number], L100.0100 ####[facility] [address] [place], [address] IG% 0.200 Normal 0.0-0.9 [facility] Comment on above: Result Comment: IG% - Immature Granulocytes (promyelocytes, myelocytes and metamyelocytes) > 1% indicates that a LEFT SHIFT is Present. Performed By: #### L [id number], L100.0100 ####[facility] [address] [place], [address] Lymphocytes/100 WBC (Bld) 16.2 % Low 19-41 [facility] Comment on above: Performed By: #### L 500.4050, L100.0100 ####[facility] [address] [place], [address] MCH (RBC) [Entitic mass] 33.8 pg High 27.0-32.0 [facility] Comment on above: Performed By: #### L 500.4050, L100.0100 ####[facility] [address] [place], [address] MCHC (RBC) [Mass/Vol] 33.6 g/dL Normal 32-36 [facility] Comment on above: Performed By: #### L 500.4050, L100.0100 ####[facility] [address] [place], [address] MCV (RBC) [Entitic vol] 100.7 fL High 80-94 [facility] Comment on above: Performed By: #### L 500.4050, L100.0100 ####[facility] [address] [place], [address] Monocytes/100 WBC (Bld) 12.5 % High 0-10 [facility] Comment on above: Performed By: #### L 500.4050, L100.0100 ####[facility] [address] [place], [address] Neutrophils/100 WBC (Bld) 66.9 % Normal 47-70 [facility] Comment on above: Performed By: #### L 500.4050, L100.0100 ####[facility] [address] [place], [address] Nucleated RBC (Bld) [#/Vol] 0 10*3/uL Normal 0-5 [facility] Comment on above: Performed By: #### L 500.4050, L100.0100 ####[facility] [address] [place], [address] Platelet mean volume (Bld) [Entitic vol] 9.2 fL Normal 6.2-12.0 [facility] Comment on above: Performed By: #### L 500.4050, L100.0100 ####[facility] [address] [place], [address] Platelets (Bld) [#/Vol] 230 10*3/uL Normal 150-450 [facility] Comment on above: Performed By: #### L 500.4050, L100.0100 ####[facility] [address] [place], [address] RBC (Bld) [#/Vol] 4.02 10*6/uL Low 4.6-6.2 [facility] Comment on above: Performed By: #### L 500.4050, L100.0100 ####[facility] [address] [place], [address] RDW SD 44.6 fl High 35.1-43.9 [facility] Comment on above: Performed By: #### L 500.4050, L100.0100 ####[facility] [address] [place], [address] WBC (Bld) [#/Vol] 5.7 10*3/uL Normal 4.4-11.0 [facility] Comment on above: Performed By: #### L 500.4050, L100.0100 ####[facility] [address] [place], [address] Carbon dioxide measurementOr dered By: Roderick Laurent on 10-29-2024 CO2 [Moles/Vol] 26.0 mmol/L 21.0-32.0 [facility] Chloride measurementOrdered By: Roderick Laurent on 10-29-2024 Chloride [Moles/Vol] 105 mmol/L 98-107 [facility] Comprehensive Metabolic Prof ilon 10-29-2024 Albumin [Mass/Vol] 3.5 g/dL Normal 3.2-5.0 [facility] Comment on above: Performed By: #### L 501.080 #### [facility] [address] [place], [address] Albumin/Globulin [Mass ratio] 1.2 {ratio} Normal 0.9-2.4 [facility] Comment on above: Performed By: #### L 501.080 #### [facility] [address] [place], [address] ALK P 64 U/L Normal 45-117 [facility] Comment on above: Performed By: #### L 501.080 #### [facility] [address] [place], [address] ALT [Catalytic activity/Vol] 15 U/L Low 16-61 [facility] Comment on above: Performed By: #### L 501.080 #### [facility] [address] [place], [address] AST [Catalytic activity/Vol] 22 U/L Normal 15-37 [facility] Comment on above: Performed By: #### L 501.080 #### [facility] [address] [place], [address] Bilirubin [Mass/Vol] 0.60 mg/dL Normal 0.20-1.00 [facility] Comment on above: Result Comment: For patients on eltrombopag therapy, use of Dimension [place] TBIL is not recommended. Performed By: #### L 501.080 #### [facility] [address] [place], [address] BUN/CRE 23.6 RATIO High 10-20 [facility] Comment on above: Performed By: #### L 501.080 #### [facility] [address] [place], [address] CA,Total 8.9 mg/dL Normal 8.5-10.1 [facility] Comment on above: Performed By: #### L 501.080 #### [facility] [address] [place], [address] Chloride [Moles/Vol] 105 mmol/L Normal 98-107 [facility] Comment on above: Performed By: #### L 501.080 #### [facility] [address] [place], [address] CO2 [Moles/Vol] 26.0 mmol/L Normal 21.0-32.0 [facility] Comment on above: Performed By: #### L 501.080 #### [facility] [address] [place], [address] Creatinine [Mass/Vol] 1.57 mg/dL High 0.70-1.30 [facility] Comment on above: Result Comment: The validity of the calculated GFR GFRAA in patients over 70 years has not been determined. Clinical correlation is essential. Performed By: #### L 501.080 #### [facility] [address] [place], [address] ECRCL 38.64 ml/min Normal [facility] Comment on above: Performed By: #### L 501.080 #### [facility] [address] [place], [address] EST GFR - AA 55 mL/min Low >60 [facility] Comment on above: Result Comment: Afri can [place] GFR Calc Performed By: #### L 501.080 #### [facility] [address] [place], [address] GAP 7 Normal 5-15 [facility] Comment on above: Performed By: #### L 501.080 #### [facility] [address] [place], [address] GFR/1.73 sq M.predicted among non-blacks MDRD (S/P/Bld) [Vol rate/Area] 45 mL/min/{1.73_m2} Low >60 [facility] Comment on above: Result Comment: Non- GFR Calc Performed By: #### L 501.080 #### [facility] [address] [place], [address] Globulin (S) [Mass/Vol] 2.9 g/dL Normal 2.2-4.2 [facility] Comment on above: Performed By: #### L 501.080 #### [facility] [address] [place], [address] Glucose [Mass/Vol] 212 mg/dL High 74-106 [facility] Comment on above: Result Comment: Gluc ose result greater than or equal to 200 mg/dL suggests DIABETES MELLITUS per A.D.A. criteria. Performed By: #### L 501.080 #### [facility] [address] [place], [address] Potassium [Moles/Vol] 4.4 mmol/L Normal 3.5-5.1 [facility] Comment on above: Performed By: #### L 501.080 #### [facility] [address] [place], [address] Sodium [Moles/Vol] 138 mmol/L Normal 136-145 [facility] Comment on above: Performed By: #### L 501.080 #### [facility] [address] [place], [address] T PROT 6.4 g/dL Normal 6.4-8.2 [facility] Comment on above: Performed By: #### L 501.080 #### [facility] [address] [place], [address] Urea nitrogen [Mass/Vol] 37 mg/dL High 7-18 [facility] Comment on above: Performed By: #### L 501.080 #### [facility] [address] [place], [address] Eosinophil percentageOrdered By: Roderick Laurent on 10-29-2024 Eosinophils/100 WBC (Bld) 3.5 % 0-5 [facility] Erythrocyte distribution wid th (RBC) [Ratio]Ordered By: Roderick Laurent on 10-29-2024 Erythrocyte distribution width (RBC) [Entitic vol] 44.6 fL High 35.1-43.9 [facility] Erythrocyte distribution wid th ratioOrdered By: Roderick Laurent on 10-29-2024 Erythrocyte distribution width (RBC) [Ratio] 11.9 % 11.6-14.6 [facility] Estimated glomerular filtrat ion rate (GFR) AmericanOrdered By: Roderick Laurent on 10-29-2024 Estimated GFR (MDRD) Amer 55 mL/min Low >60 [facility] Comment on above: GFR Calc Estimation of creatinine chapito aranceOrdered By: Roderick Laurent on 10-29-2024 Estimated Creatinine Clearance Calc 38.64 ml/min [facility] Glomerular filtration rate ( GFR) estimationOrdered By: Roderick Laurent on 10-29-2024 Estimated GFR (MDRD) Non-Af Amer 45 mL/min Low >60 [facility] Comment on above: Non- GFR Calc Glucose measurementOrdered B y: Roderick Laurent on 10-29-2024 Glucose [Mass/Vol] 212 mg/dL High 74-106 [facility] Comment on above: Glucose result great er than or equal to 200 mg/dLsuggests DIABETES MELLITUS per A.D.A. criteria. Hematocrit Auto (Bld) [Volum e fraction]Ordered By: Roderick Laurent on 10-29-2024 Hematocrit (Bld) [Volume fraction] 40.5 % 40-54 [facility] Hemoglobin measurementOrdere d By: Roderick Laurent on 10-29-2024 Hemoglobin (Bld) [Mass/Vol] 13.6 g/dL 13.0-16.5 [facility] Immature granulocytes/100 WB C Auto (Bld)Ordered By: Roderick Laurent on 10-29-2024 Immature granulocytes/100 WBC (Bld) 0.200 % 0.0-0.9 [facility] Comment on above: IG% - Immature Granu locytes (promyelocytes, myelocytes and metamyelocytes) > 1% indicates that a LEFT SHIFT is Present. Laboratory - Chemistry and C hemistry - challengeOrdered By: Roderick Laurent on 10-29-2024 AST [Catalytic activity/Vol] 22 U/L 15-37 [facility] Lymphocytes Auto (Unsp spec) [#/Vol]Ordered By: Roderick Laurent on 10-29-2024 Lymphocytes (Bld) [#/Vol] 0.93 10*3/uL 0.83-4.51 [facility] Lymphocytes/100 WBC Auto (Un sp spec)Ordered By: Roderick Laurent on 10-29-2024 Lymphocytes/100 WBC (Bld) 16.2 % Low 19-41 [facility] MCV (mean corpuscular volume ) determinationOrdered By: Roderick Laurent on 10-29-2024 MCV (RBC) [Entitic vol] 100.7 fL High 80-94 [facility] Mean corpuscular hemoglobin (MCH) determinationOrdered By: Roderick Laurent on 10-29-2024 MCH (RBC) [Entitic mass] 33.8 pg High 27.0-32.0 [facility] Mean corpuscular hemoglobin concentration (MCHC) determinationOrdered By: Roderick Laurent on 10-29-2024 MCHC (RBC) [Mass/Vol] 33.6 g/dL 32-36 [facility] Mean platelet volume determi nationOrdered By: Roderick Laurent on 10-29-2024 Platelet mean volume (Bld) [Entitic vol] 9.2 fL 6.2-12.0 [facility] Monocyte percentageOrdered B y: Roderick Laurent on 10-29-2024 Monocytes/100 WBC (Bld) 12.5 % High 0-10 [facility] Neutrophil percentageOrdered By: Roderick Laurent on 10-29-2024 Neutrophils/100 WBC (Bld) 66.9 % 47-70 [facility] Nucleated red blood cell per centageOrdered By: Roderick Laurent on 10-29-2024 Nucleated RBC/100 WBC (Bld) [Ratio] 0 % 0-5 [facility] Platelet countOrdered By: Marilu Laurent on 10-29-2024 Platelets (Bld) [#/Vol] 230 10*3/uL 150-450 [facility] Potassium measurementOrdered By: Roderick Luarent on 10-29-2024 Potassium [Moles/Vol] 4.4 mmol/L 3.5-5.1 [facility] RBC Auto (Bld) [#/Vol]Ordere d By: Roderick Laurent on 10-29-2024 RBC (Bld) [#/Vol] 4.02 10*6/uL Low 4.6-6.2 [facility] Serum anion gap measurementO rdered By: Roderick Laurent on 10-29-2024 Anion gap [Moles/Vol] 7 mmol/L 5-15 [facility] Serum globulin measurementOr dered By: Roderick Laurent on 10-29-2024 Globulin (S) [Mass/Vol] 2.9 g/dL 2.2-4.2 [facility] Serum or plasma alanine nix otransferase (ALT) measurementOrdered By: Roderick Laurent on 10-29-2024 ALT [Catalytic activity/Vol] 15 U/L Low 16-61 [facility] Serum or plasma albumin jesenia urement (mass/volume)Ordered By: Roderick Laurent on 10-29-2024 Albumin [Mass/Vol] 3.5 g/dL 3.2-5.0 [facility] Serum or plasma alkaline radha sphatase measurementOrdered By: Roderick Laurent on 10-29-2024 ALP [Catalytic activity/Vol] 64 U/L 45-117 [facility] Serum or plasma calcium jesenia urement (mass/volume)Ordered By: Roderick Laurent on 10-29-2024 Calcium [Mass/Vol] 8.9 mg/dL 8.5-10.1 [facility] Serum or plasma creatinine m easurement (mass/volume)Ordered By: Roderick Laurent on 10-29-2024 Creatinine [Mass/Vol] 1.57 mg/dL High 0.70-1.30 [facility] Comment on above: The validity of the calculated GFR & GFRAA in patients over 70 years has not been determined. Clinical correlation is essential. Serum or plasma urea nitroge n measurement (mass/volume)Ordered By: Roderick Laurent on 10-29-2024 Urea nitrogen [Mass/Vol] 37 mg/dL High 7-18 [facility] Sodium levelOrdered By: Roderick Laurent on 10-29-2024 Sodium [Moles/Vol] 138 mmol/L 136-145 [facility] Total proteinOrdered By: Katie Laurent on 10-29-2024 Protein [Mass/Vol] 6.4 g/dL 6.4-8.2 [facility] White blood cell (WBC) count Ordered By: Roderick Laurent on 10-29-2024 WBC (Bld) [#/Vol] 5.7 10*3/uL 4.4-11.0 [facility] Bedside Glucoseon 10-28-2024 FINGERSTICK GLU 191 mg/dL High 74-106 [facility] Comment on above: Result Comment: ARNOLD GEMENT OF PATIENT CARE PER NURSING PROTOCOL Performed By: #### L 501.080 #### [facility] [address] [place], [address] FINGERSTICK GLU 130 mg/dL High -106 [facility] Comment on above: Result Comment: ARNOLD GEMENT OF PATIENT CARE PER NURSING PROTOCOL Performed By: #### L 501.080 #### [facility] [address] [place], [address] FINGERSTICK GLU 204 mg/dL High 74-106 [facility] Comment on above: Result Comment: ARNOLD GEMENT OF PATIENT CARE PER NURSING PROTOCOL Performed By: #### L 501.080 #### [facility] [address] [place], [address] CBC W/Diff, Automatedon 12-0 Absolute Lymph 1.02 X10 3/uL Normal 0.83-4.51 [facility] Comment on above: Performed By: #### L 100.0100, L500.4050, L501.9520 #### [facility] [address] [place], [address] Absolute Neut 3.9 X10 3/uL Normal 2.0-7.7 [facility] Comment on above: Performed By: #### L 100.0100, L500.4050, L501.9520 #### [facility] [address] [place], [address] Basophils/100 WBC (Bld) 0.5 % Normal 0-1 [facility] Comment on above: Performed By: #### L 100.0100, L500.4050, L501.9520 #### [facility] [address] [place], [address] Eosinophils/100 WBC (Bld) 3.0 % Normal 0-5 [facility] Comment on above: Performed By: #### L 100.0100, L500.4050, [id number] #### [facility] [address] [place], [address] Erythrocyte distribution width (RBC) [Ratio] 11.8 % Normal 11.6-14.6 [facility] Comment on above: Performed By: #### L 100.0100, L500.4050, L501.9520 #### [facility] [address] [place], [address] Hematocrit (Bld) [Volume fraction] 40.0 % Normal 40-54 [facility] Comment on above: Performed By: #### L 100.0100, L500.4050, L501.9520 #### [facility] [address] [place], [address] Hemoglobin (Bld) [Mass/Vol] 13.5 g/dL Normal 13.0-16.5 [facility] Comment on above: Performed By: #### L 100.0100, L500.4050, L501.9520 #### [facility] [address] [place], [address] IG% 0.300 Normal 0.0-0.9 [facility] Comment on above: Result Comment: IG% - Immature Granulocytes (promyelocytes, myelocytes and metamyelocytes) > 1% indicates that a LEFT SHIFT is Present. Performed By: #### L 100.0100, L500.4050, L501.9520 #### [facility] [address] [place], [address] Lymphocytes/100 WBC (Bld) 17.2 % Low 19-41 [facility] Comment on above: Performed By: #### L 100.0100, L500.4050, [id number] #### [facility] [address] [place], [address] MCH (RBC) [Entitic mass] 33.4 pg High 27.0-32.0 [facility] Comment on above: Performed By: #### L 100.0100, L500.4050, L501.9520 #### [facility] [address] [place], [address] MCHC (RBC) [Mass/Vol] 33.8 g/dL Normal 32-36 [facility] Comment on above: Performed By: #### L 100.0100, L500.4050, [id number] #### [facility] [address] [place], [address] MCV (RBC) [Entitic vol] 99.0 fL High 80-94 [facility] Comment on above: Performed By: #### L 100.0100, L500.4050, [id number] #### [facility] [address] [place], [address] Monocytes/100 WBC (Bld) 13.9 % High 0-10 [facility] Comment on above: Performed By: #### L 100.0100, L500.4050, [id number] #### [facility] [address] [place], [address] Neutrophils/100 WBC (Bld) 65.1 % Normal 47-70 [facility] Comment on above: Performed By: #### L 100.0100, L500.4050, [id number] #### [facility] [address], [address] Nucleated RBC (Bld) [#/Vol] 0 10*3/uL Normal 0-5 [facility] Comment on above: Performed By: #### L 100.0100, L500.4050, [id number] #### [facility] [address] [place], [address] Platelet mean volume (Bld) [Entitic vol] 9.4 fL Normal 6.2-12.0 [facility] Comment on above: Performed By: #### L 100.0100, L500.4050, [id number] #### [facility] [address] [place], [address] Platelets (Bld) [#/Vol] 251 10*3/uL Normal 150-450 [facility] Comment on above: Performed By: #### L 100.0100, L500.4050, [id number] #### [facility] [address] [place], [address] RBC (Bld) [#/Vol] 4.04 10*6/uL Low 4.6-6.2 [facility] Comment on above: Performed By: #### L 100.0100, L500.4050, [id number] #### [facility] [address] [place], [address] RDW SD 43.0 fl Normal 35.1-43.9 [facility] Comment on above: Performed By: #### L 100.0100, L500.4050, [id number] #### [facility] [address] [place], [address] WBC (Bld) [#/Vol] 5.9 10*3/uL Normal 4.4-11.0 [facility] Comment on above: Performed By: #### L 100.0100, L500.4050, [id number] #### [facility] [address] [place], [address] Comprehensive Metabolic Prof ilon 10-28-2024 Albumin [Mass/Vol] 3.6 g/dL Normal 3.2-5.0 [facility] Comment on above: Performed By: #### L 100.0100, L500.4050, [id number] #### [facility] [address] [place], [address] Albumin/Globulin [Mass ratio] 1.1 {ratio} Normal 0.9-2.4 [facility] Comment on above: Performed By: #### L 100.0100, L500.4050, [id number] #### [facility] [address] [place], [address] ALK P 68 U/L Normal 45-117 [facility] Comment on above: Performed By: #### L 100.0100, L500.4050, [id number] #### [facility] [address] [place], [address] ALT [Catalytic activity/Vol] 24 U/L Normal 16-61 [facility] Comment on above: Performed By: #### L 100.0100, L500.4050, [id number] #### [facility] [address] [place], [address] AST [Catalytic activity/Vol] 25 U/L Normal 15-37 [facility] Comment on above: Performed By: #### L 100.0100, L500.4050, [id number] #### [facility] [address] [place], [address] Bilirubin [Mass/Vol] 1.00 mg/dL Normal 0.20-1.00 [facility] Comment on above: Result Comment: For patients on eltrombopag therapy, use of Dimension [place] TBIL is not recommended. Performed By: #### L 100.0100, L500.4050, L501.9520 #### [facility] [address] [place], [address] BUN/CRE 16.7 RATIO Normal 10-20 [facility] Comment on above: Performed By: #### L 100.0100, L500.4050, [id number] #### [facility] [address] [place], [address] CA,Total 8.7 mg/dL Normal 8.5-10.1 [facility] Comment on above: Performed By: #### L 100.0100, L500.4050, [id number] #### [facility] [address] [place], [address] Chloride [Moles/Vol] 105 mmol/L Normal 98-107 [facility] Comment on above: Performed By: #### L 100.0100, L500.4050, [id number] #### [facility] [address] [place], [address] CO2 [Moles/Vol] 23.0 mmol/L Normal 21.0-32.0 [facility] Comment on above: Performed By: #### L 100.0100, L500.4050, [id number] #### [facility] [address] [place], [address] Creatinine [Mass/Vol] 1.20 mg/dL Normal 0.70-1.30 [facility] Comment on above: Result Comment: The validity of the calculated GFR GFRAA in patients over 70 years has not been determined. Clinical correlation is essential. Performed By: #### L 100.0100, L500.4050, L501.9520 #### [facility] [address] [place], [address] ECRCL 50.55 ml/min Normal [facility] Comment on above: Performed By: #### L 100.0100, L500.4050, [id number] #### [facility] [address] [place], [address] EST GFR - AA 74 mL/min Normal >60 [facility] Comment on above: Result Comment: Afri can [place] GFR Calc Performed By: #### L 100.0100, L500.4050, [id number] #### [facility] [address] [place], [address] GAP 8 Normal 5-15 [facility] Comment on above: Performed By: #### L 100.0100, L500.4050, [id number] #### [facility] [address] [place], [address] GFR/1.73 sq M.predicted among non-blacks MDRD (S/P/Bld) [Vol rate/Area] 62 mL/min/{1.73_m2} Normal >60 [facility] Comment on above: Result Comment: Non- GFR Calc Performed By: #### L 100.0100, L500.4050, [id number] #### [facility] [address] [place], [address] Globulin (S) [Mass/Vol] 3.3 g/dL Normal 2.2-4.2 [facility] Comment on above: Performed By: #### L 100.0100, L500.4050, [id number] #### [facility] [address] [place], [address] Glucose [Mass/Vol] 130 mg/dL High 74-106 [facility] Comment on above: Result Comment: Fast ing Glucose result greater than or equal to 126 mg/dL suggests DIABETES MELLITUS per A.D.A. criteria. Performed By: #### L 100.0100, L500.4050, L501.9520 #### [facility] [address] [place], [address] Potassium [Moles/Vol] 3.9 mmol/L Normal 3.5-5.1 [facility] Comment on above: Performed By: #### L 100.0100, L500.4050, [id number] #### [facility] [address] [place], [address] Sodium [Moles/Vol] 136 mmol/L Normal 136-145 [facility] Comment on above: Performed By: #### L 100.0100, L500.4050, [id number] #### [facility] [address] [place], [address] T PROT 6.9 g/dL Normal 6.4-8.2 [facility] Comment on above: Performed By: #### L 100.0100, L500.4050, [id number] #### [facility] [address] [place], [address] Urea nitrogen [Mass/Vol] 20 mg/dL High 7-18 [facility] Comment on above: Performed By: #### L 100.0100, L500.4050, [id number] #### [facility] [address] [place], [address] Culture, Anaerobic Any Sourc adrianna 10-28-2024 CUAN List Antibiotics [place] t 48 Hours? NONE List Antibiotics to be Started? NONE No anaerobic bacteria isolated. Normal [facility] Comment on above: Performed By: #### M 100.4001, M100.3000, M100.2000 ####[facility] [address] [place], [address] TSH QnOrdered By: Sulma maxwell on 10-28-2024 Thyroid Stimulating Hormone (TSH) 4.070 uIU/mL High 0.358-3.740 [facility] Thyroid Stim Hormone (TSH)on 10-28-2024 TSH 4.070 uIU/mL High 0.358-3.740 [facility] Comment on above: Performed By: #### L 100.0100, L500.4050, L501.9520 #### [facility] [address] [place], [place], [address] Urine Cultureon 10-28-2024 URC Mixed Gram Pos Gram Neg Org [place] Count 11,000-25,000 MIXC Mixed contaminants. Submit a new specimen if indicated. Normal [facility] Comment on above: Performed By: #### M 100.2200 ####[facility] [address] [place], [address] 12 Lead EKGon 10-27-2024 12 Lead EKG [facility] [address] [place] [address] 12 Lead EKG 10/27/24 1027 MR#: [id number] Acct: [id number] Name: FLEX KLINE Rep #: [id number] : 1940 84 From: Garfield Thornton MD Attending Dr: Dr. Roderick Laurent DO Status: A DM IN Ordering Dr: Velasquez Morales DO Date: 4 Location: [facility] Sex: M C Admitted: 10/27/24 Test Reason [...] Otherwise normal ECG Confirmed by Garfield Thornton ([id number]), book or script editor ERROL AIKEN ([id number]) on 10/30/2024 6:53:52 AM Referred By: Confirmed By: Garfield Thornton 10/30/24 0653 Date Garfield Thornton MD CC: Dr. Velasquez Morales DO; Dr. Roderick Laurent DO; Dr. Felix Montelongo MD Signed Normal [facility] BNP (brain natriuretic pepti de measurement)Ordered By: Velasquez Morales on 10-27-2024 Natriuretic peptide B (Bld) [Mass/Vol] 133.8 pg/mL High 0-100 [facility] BNP,B-Type NATRIURETIC PEPTI Camryn 10-27-2024 Natriuretic peptide B (Bld) [Mass/Vol] 133.8 pg/mL High 0-100 [facility] Comment on above: Performed By: #### L 501.080 #### [facility] [address] [place], [address] Basic Metabolic Profile (BMP )on 10-27-2024 BUN/CRE 17.1 RATIO Normal 10-20 [facility] Comment on above: Order Comment: 1Y Performed By: #### L 501.080 #### [facility] [address] [place], [address] CA,Total 9.2 mg/dL Normal 8.5-10.1 [facility] Comment on above: Order Comment: 1Y Performed By: #### L 501.080 #### [facility] [address] [place], [address] Chloride [Moles/Vol] 100 mmol/L Normal 98-107 [facility] Comment on above: Order Comment: 1Y Performed By: #### L 501.080 #### [facility] [address] [place], [address] CO2 [Moles/Vol] 27.0 mmol/L Normal 21.0-32.0 [facility] Comment on above: Order Comment: 1Y Performed By: #### L 501.080 #### [facility] [address] [place], [address] Creatinine [Mass/Vol] 1.46 mg/dL High 0.70-1.30 [facility] Comment on above: Order Comment: 1Y Result Comment: The validity of the calculated GFR GFRAA in patients over 70 years has not been determined. Clinical correlation is essential. Performed By: #### L 501.080 #### [facility] [address] [place], [address] ECRCL 41.55 ml/min Normal [facility] Comment on above: Order Comment: 1Y Performed By: #### L 501.080 #### [facility] [address] [place], [address] EST GFR - AA 59 mL/min Low >60 [facility] Comment on above: Order Comment: 1Y Result Comment: Afri can [place] GFR Calc Performed By: #### L 501.080 #### [facility] [address] [place], [address] GAP 7 Normal 5-15 [facility] Comment on above: Order Comment: 1Y Performed By: #### L 501.080 #### [facility] [address] [place], [address] GFR/1.73 sq M.predicted among non-blacks MDRD (S/P/Bld) [Vol rate/Area] 49 mL/min/{1.73_m2} Low >60 [facility] Comment on above: Order Comment: 1Y Result Comment: Non- GFR Calc Performed By: #### L 501.080 #### [facility] [address] [place], [address] Glucose [Mass/Vol] 158 mg/dL High 74-106 [facility] Comment on above: Order Comment: 1Y Result Comment: Fast ing Glucose result greater than or equal to 126 mg/dL suggests DIABETES MELLITUS per A.D.A. criteria. Performed By: #### L 501.080 #### [facility] [address] [place], [address] Potassium [Moles/Vol] 4.4 mmol/L Normal 3.5-5.1 [facility] Comment on above: Order Comment: 1Y Result Comment: Mode rate Hemolysis, Result may be falsely increased. Performed By: #### L 501.080 #### [facility] [address] [place], [address] Sodium [Moles/Vol] 133 mmol/L Low 136-145 [facility] Comment on above: Order Comment: 1Y Performed By: #### L 501.080 #### [facility] [address] [place], [address] Urea nitrogen [Mass/Vol] 25 mg/dL High 7-18 [facility] Comment on above: Order Comment: 1Y Performed By: #### L 501.080 #### [facility] [address] [place], [address] Bedside Glucoseon 10-27-2024 FINGERSTICK GLU 100 mg/dL Normal 74-106 [facility] Comment on above: Result Comment: ARNOLD HAYWARD OF PATIENT CARE PER NURSING PROTOCOL Performed By: #### L 501.080 #### [facility] [address] [place], [address] Bilirubin Test strip Ql (U)O rdered By: Velasquez Morales on 10-27-2024 Bilirubin Ql (U) Negative Negative [facility] CBC W/Diff, Automatedon 12-0 Absolute Neut Normal 2.0-7.7 [facility] Comment on above: Result Comment: James philippe via OM: Ordered Performed By: #### L 501.080 #### [facility] [address] [place], [address] HCT Normal 40-54 [facility] Comment on above: Result Comment: James philippe via OM: Ordered Performed By: #### L 501.080 #### [facility] [address] [place], [address] HGB Normal 13.0-16.5 [facility] Comment on above: Result Comment: Canc elled via OM: MD Ordered Performed By: #### L 501.080 #### [facility] [address] [place], [address] MCH Normal 27.0-32.0 [facility] Comment on above: Result Comment: Canc elled via OM: MD Ordered Performed By: #### L 501.080 #### [facility] [address] [place], [address] MCHC Normal 32-36 [facility] Comment on above: Result Comment: Canc elled via OM: MD Ordered Performed By: #### L 501.080 #### [facility] [address] [place], [address] MCV Normal 80-94 [facility] Comment on above: Result Comment: Canc elled via OM: MD Ordered Performed By: #### L 501.080 #### [facility] [address] [place], [address] NEUT% Normal 47-70 [facility] Comment on above: Result Comment: Canc elled via OM: MD Ordered Performed By: #### L 501.080 #### [facility] [address] [place], [address] PLT Normal 150-450 [facility] Comment on above: Result Comment: Canc elled via OM: MD Ordered Performed By: #### L 501.080 #### [facility] [address] [place], [address] RBC Normal 4.6-6.2 [facility] Comment on above: Result Comment: Canc elled via OM: MD Ordered Performed By: #### L 501.080 #### [facility] [address] [place], [address] RDW CV Normal 11.6-14.6 [facility] Comment on above: Result Comment: Canc elled via OM: MD Ordered Performed By: #### L 501.080 #### [facility] [address] [place], [address] RDW SD Normal 35.1-43.9 [facility] Comment on above: Result Comment: Canc elled via OM: MD Ordered Performed By: #### L 501.080 #### [facility] [address] [place], [address] WBC Normal 4.4-11.0 [facility] Comment on above: Result Comment: Canc elled via OM: MD Ordered Performed By: #### L 501.080 #### [facility] [address] [place], [address] Absolute Lymph 0.82 X10 3/uL Low 0.83-4.51 [facility] Comment on above: Performed By: #### L 501.080 #### [facility] [address] [place], [address] Absolute Neut 4.3 X10 3/uL Normal 2.0-7.7 [facility] Comment on above: Performed By: #### L 501.080 #### [facility] [address] [place], [address] Basophils/100 WBC (Bld) 0.7 % Normal 0-1 [facility] Comment on above: Performed By: #### L 501.080 #### [facility] [address] [place], [address] Eosinophils/100 WBC (Bld) 2.2 % Normal 0-5 [facility] Comment on above: Performed By: #### L 501.080 #### [facility] [address] [place], [address] Erythrocyte distribution width (RBC) [Ratio] 11.9 % Normal 11.6-14.6 [facility] Comment on above: Performed By: #### L 501.080 #### [facility] [address] [place], [address] Hematocrit (Bld) [Volume fraction] 41.5 % Normal 40-54 [facility] Comment on above: Performed By: #### L 501.080 #### [facility] [address] [place], [address] Hemoglobin (Bld) [Mass/Vol] 14.6 g/dL Normal 13.0-16.5 [facility] Comment on above: Performed By: #### L 501.080 #### [facility] [address] [place], [address] IG% 0.300 Normal 0.0-0.9 [facility] Comment on above: Result Comment: IG% - Immature Granulocytes (promyelocytes, myelocytes and metamyelocytes) > 1% indicates that a LEFT SHIFT is Present. Performed By: #### L 501.080 #### [facility] [address] [place], [address] Lymphocytes/100 WBC (Bld) 14.1 % Low 19-41 [facility] Comment on above: Performed By: #### L 501.080 #### [facility] [address] [place], [address] MCH (RBC) [Entitic mass] 34.9 pg High 27.0-32.0 [facility] Comment on above: Performed By: #### L 501.080 #### [facility] [address] [place], [address] MCHC (RBC) [Mass/Vol] 35.2 g/dL Normal 32-36 [facility] Comment on above: Performed By: #### L 501.080 #### [facility] [address] [place], [address] MCV (RBC) [Entitic vol] 99.3 fL High 80-94 [facility] Comment on above: Performed By: #### L 501.080 #### [facility] [address] [place], [address] Monocytes/100 WBC (Bld) 9.3 % Normal 0-10 [facility] Comment on above: Performed By: #### L 501.080 #### [facility] [address] [place], [address] Neutrophils/100 WBC (Bld) 73.4 % High 47-70 [facility] Comment on above: Performed By: #### L 501.080 #### [facility] [address] [place], [address] Nucleated RBC (Bld) [#/Vol] 0 10*3/uL Normal 0-5 [facility] Comment on above: Performed By: #### L 501.080 #### [facility] [address] [place], [address] Platelet mean volume (Bld) [Entitic vol] 9.6 fL Normal 6.2-12.0 [facility] Comment on above: Performed By: #### L 501.080 #### [facility] [address] [place], [address] Platelets (Bld) [#/Vol] 256 10*3/uL Normal 150-450 [facility] Comment on above: Performed By: #### L 501.080 #### [facility] [address] [place], [address] RBC (Bld) [#/Vol] 4.18 10*6/uL Low 4.6-6.2 [facility] Comment on above: Performed By: #### L 501.080 #### [facility] [address] [place], [address] RDW SD 43.4 fl Normal 35.1-43.9 [facility] Comment on above: Performed By: #### L 501.080 #### [facility] [address] [place], [place], [address] WBC (Bld) [#/Vol] 5.8 10*3/uL Normal 4.4-11.0 [facility] Comment on above: Performed By: #### L 501.080 #### [facility] [address] [place], [place], [address] Chest 1 View (Portable)on Chest 1 View (Portable) [facility] Imaging Services [address] [facility] [address] [place], [place] [address] Chest 1 View (Portable) MR#: [id number] Acct: [id number] Name: FLEX KLINE Rep #: [id number] : 1940 84 From: Clint Freire MD PCP: Dr. Felix Montelongo MD Status: PRE ER Study: Chest 1 View (Portable) Date of Exam: 10/27/24 Exam# [id number] Ordering Dr: Velasquez Morales DO [id number] STUDY: X-RAY CHEST REASON FOR EXAM: Male, [...] at 11:00 EST , CC: Dr. Velasquez Morales, DO; Dr. Felix Montelongo MD Supervisory Clerk: Signed Normal [facility] D-Dimer Quantitative (DVT/PE )on 10-27-2024 D-DIMER QUANT 0.50 FEU/ug/m High 0.27-0.49 [facility] Comment on above: Order Comment: CRITI SIHN VALUE CALLED TO TROY ROWELLNLWQPTR16/06/24 1225 Cat Benito.RESULTS READ BACK BY SAME. Result Comment: D-Di augusta ELEVATED (>0.49): Additional studies and clinical assessments are indicated to conclude diagnosis of: Deep Vein Thrombosis (DVT) or Pulmonary Embolism (PE) Performed By: #### L 501.080 #### [facility] [address] [place], [place], [address] D-dimer measurement for deep venous thrombosisOrdered By: Velasquez Morales on 10-27-2024 D-Dimer Quantitative (PE/DVT) 0.50 FEU/ug/m High 0.27-0.49 [facility] Comment on above: D-Dimer ELEVATED (>0 .49): Additional studies and clinicalassessments are indicated to conclude diagnosis of:Deep Vein Thrombosis (DVT) or Pulmonary Embolism (PE) Echo Complete W/ Contraston 10-27-2024 Echo Complete W/ Contrast [facility] [address] [facility] [place] [address] Echo Complete W/ Contrast 10/28/24 0814 MR#: [id number] Acct: [id number] Name: FLEX KLINE Rep #: [id number] : 1940 84 From: Angela Ramirez MD Attending Dr: Dr. Roderick Laurent, DO Status: A DM IN Ordering Dr: Sulma Romero MD Date: 10/27/24 Location: 3 Sex: M C Admitted: 10/27/24 Reason For [...] Ordering Physician: Sulma Romero Performed By: Velasquez Cox, [facility] 10/28/241446 Date Angela Ramirez MD CC: Dr. Roderick Laurent DO; Dr. Sulma Romero MD; Dr. Felix Montelongo MD Date Dictated: 10/28/24813 Date Transcribed: 10/28/241446 Supervisory Clerk: Signed Normal [facility] Emergency Department Summary on 10-27-2024 Emergency Department Summary [facility] Medical Records Department [address] [place] [address] Emergency Department Summary 10/27/24 MR#: [id number] Acct: [id number] Name: FLEX KLINE Rep #: [id number] : 1940 84 From: Velasquez Morales DO PCP: Dr. Felix Montelongo MD Status:ADM IN Location: [place] [id number] HPI History of Present Illness Chief Complaint: [...] intact Psych: Cooperative, appropriate mood and affect PFSH PFSH Medical History (Reviewed 10/27/24 @ 12:55 by Rita Calixto BEHAVIORAL SCIENCES INSTRUCTOR, BEHAVIORAL SCIENCES INSTRUCTOR-C) Diabetes GERD (gastroesophageal reflux disease) Cataract 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 heart disease of [place] coronary artery without angina pectoris Parkinson's disease [...] CAD (coron (more content not included)... Normal [facility] Epithelial cells.squamous LM Ql (Urine sed)Ordered By: Velasquez Morales on 10-27-2024 Epithelial cells.squamous LM.HPF (Urine sed) [#/Area] 0 /[HPF] 0-5 [facility] Glucose Ql (U)Ordered By: Korey Morales on 10-27-2024 Glucose (U) [Mass/Vol] 1000 mg/dL High Normal [facility] H AND P Exam - [facility] 10-27-2024 H&P Exam - Hospitalist [facility] Medical Records Department [address] [place] [address] H P Exam - Hospitalist 10/27/24 1633 MR#: [id number] Acct: [id number] Name: FLEX KLINE Rep #: [id number] : 1940 84 From: Sulma Romero MD PCP: Dr. Felix Montelongo MD Status:ADM IN Location: [id number] HPI - General General Date of Admission: 10/27/24 Date of Service: 10/27/24 Chief Complaint: Weakness, CP, SOB HPI Narrative FLEX KLINE, is a 84-year-old male history of CKD, Parkinson's, CAD, BPH, diabetes, hypothyroidism presented [facility] ED 10/27/2024 with shortness of breath, [...] notice any change with exertion or rest. [facility] Medical History (Reviewed 10/27/24 @ 12:55 by Rita Calixto BEHAVIORAL SCIENCES INSTRUCTOR, BEHAVIORAL SCIENCES INSTRUCTOR-C) Diabetes GERD (gastroesophageal reflux disease) Cataract 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 heart disease of [place] coronary artery without angina pectoris Parkinson's disease [...] (Reviewed 10/27/24 @ 12:55 by Rita Calixto BEHAVIORAL SCIENCES INSTRUCTOR, BEHAVIORAL SCIENCES INSTRUCTOR-C) Mother Alzheimer's dementia Diabetes Father CAD (coronary artery disease) Heart disease Brother CAD (coronary artery disease) Daughter Arthritis Surgical History (Reviewed 10/27/24 @ 12:55 by Rita Calixto BEHAVIORAL SCIENCES INSTRUCTOR, BEHAVIORAL SCIENCES INSTRUCTOR-C) 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 Normal [facility] Influenza virus A and B and SARS-CoV-2 (COVID-19) and Respiratory syncytial virus RNAOrdered By: Velasquez Morales on 10-27-2024 SARS-CoV-2 (COVID-19) RNA ROSIE+probe Ql (Unsp spec) [facility] Ketones Test strip Ql (U)Ord ered By: Velasquez Kaisre on 10-27-2024 Ketones Ql (U) 5 mg/dl High Negative [facility] L501.4020on 10-27-2024 TROPONIN-I HS 9 pg/mL Normal 3.0-78.0 [facility] Comment on above: Result Comment: Plea se Note: New Test Units and Gender Specific Reference Ranges. For more information see Policy Stat Procedure [facility] High Sensitivity Troponin (TNIH) and attachments. Performed By: #### L 501.4020 ####[facility] [address] [place], [address] L501.5425on 10-27-2024 TROPONIN-I HS 8 pg/mL Normal 3.0-78.0 [facility] Comment on above: Order Comment: 1Y Result Comment: Plea se Note: New Test Units and Gender Specific Reference Ranges. For more information see Policy Stat Procedure [facility] High Sensitivity Troponin (TNIH) and attachments. Performed By: #### L 501.080 #### [facility] [address] [place], [address] M100.678on 10-27-2024 M100.678 Pending SARS-CoV-2 (COVID 19) Negative INFLUENZA A Negative INFLUENZA B Negative RSV PCR Negative Normal [facility] Comment on above: Performed By: #### M 100.678, L400.0001 ####[facility] [address] [place], [address] Magnesiumon 10-27-2024 Magnesium [Mass/Vol] 2.2 mg/dL Normal 1.6-2.6 [facility] Comment on above: Performed By: #### L 501.080 #### [facility] [address] [place], [place], [address] Magnesium measurementOrdered By: Velasquez Morales on 10-27-2024 Magnesium [Mass/Vol] 2.2 mg/dL 1.6-2.6 [facility] Microscopic analysis of urin e for red blood cells (RBC)Ordered By: Velasquez Morales on 10-27-2024 Urine RBC 0 SEEN /hpf 0-5 [facility] Mucus LM Ql (Urine sed)Order ed By: Velasquez Morales on 10-27-2024 Mucus Ql (Urine sed) 0 SEEN /hpf [facility] Nitrite Test strip Ql (U)Ord ered By: [place] Carmen on 10-27-2024 Nitrite Ql (U) Negative Negative [facility] Protein Test strip Ql (U)[facility] 10-27-[facility]24 Protein Ql (U) 30 mg/dl High Negative [facility] Thyroid Stim Hormone (TSH)on 10-27-2024 TSH 2.580 uIU/mL Normal 0.358-3.740 [facility] Comment on above: Performed By: #### L 501.080 #### [facility] [address] [facility] [address] [place], [place], [address] Troponin IOrdered By: Velasquez Morales on 10-27-2024 Troponin I High Sensitivity 9 pg/mL 3.0-78.0 [facility] Comment on above: Please Note: New Luz Elena t Units and Gender Specific Reference Ranges. For more information see Policy Stat Procedure [facility] High Sensitivity Troponin (TNIH) and attachments. Urinalysis, Completeon 10-27 BACTERIA 1+ /hpf Normal None Seen [facility] Comment on above: Order Comment: CLEAN CATCH Performed By: #### M 100.678, L400.0001 ####[facility] [address] [place], [address] WBC 10-25 SEEN Normal 0-5 [facility] Comment on above: Order Comment: CLEAN CATCH Performed By: #### M 100.678, L400.0001 ####[facility] [address] [place], [address] BILIRUBIN URINE Negative Normal Negative [facility] Comment on above: Order Comment: CLEAN CATCH Performed By: #### M 100.678, L400.0001 ####[facility] [address] [place], [address] Clarity (U) Clear Normal Clear [facility] Comment on above: Order Comment: CLEAN CATCH Performed By: #### M 100.678, L400.0001 ####[facility] [address] [place], [address] Color (U) Straw Normal Yellow [facility] Comment on above: Order Comment: CLEAN CATCH Performed By: #### M 100.678, L400.0001 ####[facility] [address] [place], [address] GLUCOSE, UR 1000 mg/dl Abnormal Normal [facility] Comment on above: Order Comment: CLEAN CATCH Performed By: #### M 100.678, L400.0001 ####[facility] [address] [place], [address] KETONE UR 5 mg/dl Abnormal Negative [facility] Comment on above: Order Comment: CLEAN CATCH Performed By: #### M 100.678, L400.0001 ####[facility] [address] [place], [address] LEUK ESTERASE 100 /ul Abnormal Negative [facility] Comment on above: Order Comment: CLEAN CATCH Performed By: #### M 100.678, L400.0001 ####[facility] [address] [place], [address] Nitrite Ql (U) Negative Normal Negative [facility] Comment on above: Order Comment: CLEAN CATCH Performed By: #### M 100.678, L400.0001 ####[facility] [address] [place], [address] OCCULT BLOOD-UR Negative Normal Negative [facility] Comment on above: Order Comment: CLEAN CATCH Performed By: #### M 100.678, L400.0001 ####[facility] [address] [place], [address] pH UR 7.0 Normal 5.0 - 8.0 [facility] Comment on above: Order Comment: CLEAN CATCH Performed By: #### M 100.678, L400.0001 ####[facility] [address] [place], [address] PROT DIPSTX 30 mg/dl Abnormal Negative [facility] Comment on above: Order Comment: CLEAN CATCH Performed By: #### M 100.678, L400.0001 ####[facility] [address] [place], [address] SP.GR. DIPSTX 1.010 Normal 1.002-1.030 [facility] Comment on above: Order Comment: CLEAN CATCH Performed By: #### M 100.678, L400.0001 ####[facility] [address] [place], [address] UROBILI Normal Normal Normal [facility] Comment on above: Order Comment: CLEAN CATCH Performed By: #### M 100.678, L400.0001 ####[facility] [address] [place], [address] EPI,SQUAMOUS 0 SEEN Normal 0-5 [facility] Comment on above: Order Comment: CLEAN CATCH Performed By: #### M 100.678, L400.0001 ####[facility] [address] [place], [address] Mucus Ql (Urine sed) 0 SEEN Normal [facility] Comment on above: Order Comment: CLEAN CATCH Performed By: #### M 100.678, L400.0001 ####[facility] [address] [place], [address] RBC 0 SEEN Normal 0-5 [facility] Comment on above: Order Comment: CLEAN CATCH Performed By: #### M 100.678, L400.0001 ####[facility] [address] [place], [address] Urine blood detectionOrdered By: Velasquez Morales on 10-27-2024 Urine Occult Blood Negative Negative [facility] Urine clarityOrdered By: Gregor Morales on 10-27-2024 Clarity (U) Clear Clear [facility] Urine color determinationOrd ered By: Velasquez Morales on 10-27-2024 Color (U) Straw Yellow [facility] Urine cultureOrdered By: Gregor Morales on 10-27-2024 Bacteria identified Cx Nom (U) Mixed Gram Pos & Gram Neg Org Abnormal [facility] Urine leukocyte esterase det ection by dipstickOrdered By: Velasquez Morales on 10-27-2024 Leukocyte esterase Test strip Ql (U) 100 /ul High Negative [facility] Urine pHOrdered By: Velasquez Saab on 10-27-2024 pH (U) 7.0 [pH] 5.0 - 8.0 [facility] Urine sediment bacteria coun t by microscopy (number/high power field)Ordered By: Velasquez Morales on 10-27-2024 Bacteria LM.HPF (Urine sed) [#/Area] 1 /[HPF] None Seen [facility] Urine specific gravity measu rementOrdered By: Velasquez Morales on 10-27-2024 Specific gravity (U) [Rel density] 1.010 1.002-1.030 [facility] Urobilinogen Ql (U)Ordered B y: Velasquez Morales on 10-27-2024 Urine Urobilinogen Normal mg/dl Normal [facility] White blood cell countOrdere d By: Velasquez Morales on 10-27-2024 Urine WBC 10-25 SEEN /hpf 0-5 [facility] Wound Cultureon 10-27-2024 List Antibiotics Las t 48 Hours? NONE [...] S Vancomycin Islt GAYLA <=0.5 S Normal [facility] Comment on above: Performed By: #### M 100.4001, M100.3000, M100.1999 ####[facility] [id number] [place], [address] Gram Stainon 10-26-2024 List Antibiotics Las t 48 Hours? NONE List Antibiotics to be Started? NONE Gram Stain No organisms seen No cells seen Normal [facility] Comment on above: Performed By: #### M 100.4001, M100.3000, M100.2000 ####[facility] [id number] [place], [address] Wound Ctr History AND Physic josé miguel 10-25-2024 Wound Ctr History & Physical [facility] [address] [place] [address] H P Exam - Wound Care 10/25/24 1711 MR#: [id number] Acct: [id number] Name: FLEX KLINE Rep #: [id number] : 1940 84 From: Rita Calixto NP BEHAVIORAL SCIENCES INSTRUCTOR-C PCP: Dr. Felix Montelongo MD Status:REG RCR Location: History of Present Illness Date of [...] erythematous and dry but no open wounds. [facility] Medical History Diabetes GERD (gastroesophageal reflux disease) Cataract 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 heart disease of [place] coronary artery without angina pectoris Parkinson's disease [...] Constitutional: D (more content not included)... Normal [facility] Absolute lymphocyte counton 06-29-2023 Lymphocytes Auto (Unsp spec) [#/Vol] 0.81 10*3/uL 0.83-4.51 [facility] Basophil percentageon 2022 Basophils/100 WBC (Bld) 0.2 % 0-1 [facility] Bilirubin [Mass/Vol] 0.80 mg/dL 0.20-1.00 [facility] Comment on above: For patients on eltr ombopag therapy, use of Dimension Amawalk TBIL is not recommended. Chloride [Moles/Vol] 101 mmol/L 98-107 [facility] Cholesterol [Mass/Vol] 170 mg/dL <200 [facility] Comment on above: <200 mg/dL Desirable 200-240 mg/dL Borderline >240 mg/dL High Risk Eosinophils/100 WBC (Bld) 3.3 % 0-5 [facility] Glucose [Mass/Vol] 119 mg/dL 74-106 [facility] Comment on above: Fasting Glucose resu lt from 100 to 125 mg/dL suggests IMPAIRED HOMEOSTASIS per A.D.A. criteria. Neutrophils (Bld) [#/Vol] 3.9 10*3/uL 2.0-7.7 [facility] Neutrophils/100 WBC (Bld) 70.4 % 47-70 [facility] Potassium [Moles/Vol] 4.8 mmol/L 3.5-5.1 [facility] Protein [Mass/Vol] 7.2 g/dL 6.4-8.2 [facility] Sodium [Moles/Vol] 134 mmol/L 136-145 [facility] Triglyceride [Mass/Vol] 57 mg/dL <199 [facility] Comment on above: The drugs N-Acetylcy steine and Metamizole may falsely depress this assay.Serum Triglycerides Reference Interval Normal <150 mg/dL Borderline high 150 - 199 mg/dL High 200 - 499 mg/dL Very High > or = 500 mg/dL WBC (Bld) [#/Vol] 5.5 10*3/uL 4.4-11.0 [facility] Blood erythrocytes count (nu mber/volume)on 06-29-2023 RBC (Bld) [#/Vol] 4.22 10*6/uL 4.6-6.2 [facility] Blood hemoglobin measurement (mass/volume)on 06-29-2023 Hemoglobin (Bld) [Mass/Vol] 14.4 g/dL 13.0-16.5 [facility] Blood lymphocytes/100 leukoc yteson 06-29-2023 Lymphocytes/100 WBC (Bld) 14.8 % 19-41 [facility] Blood monocytes/100 leukocyt eson 06-29-2023 Monocytes/100 WBC (Bld) 11.1 % 0-10 [facility] Blood platelet mean volumeon 06-29-2023 Platelet mean volume (Bld) [Entitic vol] 9.7 fL 6.2-12.0 [facility] Determination of erythrocyte mean corpuscular volume (MCV)on 06-29-2023 MCV (RBC) [Entitic vol] 96.9 fL 80-94 [facility] Hematocrit Auto (Bld) [Volum e fraction]on 06-29-2023 Hematocrit (Bld) [Volume fraction] 40.9 % 40-54 [facility] Laboratory - Chemistry and C hemistry - challengeon 06-29-2023 ALP [Catalytic activity/Vol] 59 U/L 45-117 [facility] ALT [Catalytic activity/Vol] 24 U/L 16-61 [facility] CO2 [Moles/Vol] 27.0 mmol/L 21.0-32.0 [facility] Globulin (S) [Mass/Vol] 3.3 g/dL 2.2-4.2 [facility] Urea nitrogen/Creatinine [Mass ratio] 18.1 mg/mg 10-20 [facility] Laboratory - Hematology and Cell countson 06-29-2023 Erythrocyte distribution width (RBC) [Entitic vol] 42.5 fL 35.1-43.9 [facility] Erythrocyte distribution width (RBC) [Ratio] 11.9 % 11.6-14.6 [facility] Immature granulocytes/100 WBC (Bld) 0.200 % 0.0-0.9 [facility] Comment on above: IG% - Immature Granu locytes (promyelocytes, myelocytes and metamyelocytes) > 1% indicates that a LEFT SHIFT is Present. MCH (RBC) [Entitic mass] 34.1 pg 27.0-32.0 [facility] Nucleated RBC/100 WBC (Bld) [Ratio] 0 % 0-5 [facility] MCHC Auto (RBC) [Mass/Vol]on 06-29-2023 MCHC (RBC) [Mass/Vol] 35.2 g/dL 32-36 [facility] No Panel Informationon 06-29 Estimated GFR (MDRD) Amer 56 mL/min >60 [facility] Comment on above: GFR Calc Estimated GFR (MDRD) Non-Af Amer 46 mL/min >60 [facility] Comment on above: Non- GFR Calc Prostate Specific Antigen Screen 3.35 ng/mL 0.00-4.00 [facility] Comment on above: This test was perfor med using the TPSA assay method for theCasagem chemistry system. Values obtained with differentassay methods cannot be used interchangably.When changing PSA assays in the course of monitoring apatient, additional sequential testing should be carriedout to confirm baseline values. Thyroid Stimulating Hormone (TSH) 4.85 uIU/mL 0.358-3.74 [facility] Urine Microalbumin/Creatinine Ratio 26.8 mg/g CRE <30 [facility] Platelets bldon 06-29-2023 Platelets (Bld) [#/Vol] 217 10*3/uL 150-450 [facility] Serum or plasma albumin jesenia urement (mass/volume)on 06-29-2023 Albumin [Mass/Vol] 3.9 g/dL 3.2-5.0 [facility] Serum or plasma albumin/glob ulin mass ratioon 06-29-2023 Albumin/Globulin [Mass ratio] 1.2 {ratio} 0.9-2.4 [facility] Serum or plasma calcium jesenia urement (mass/volume)on 06-29-2023 Calcium [Mass/Vol] 9.0 mg/dL 8.5-10.1 [facility] Serum or plasma cholesterol in HDL measurement (mass/volume)on 06-29-2023 Cholesterol in HDL [Mass/Vol] 56 mg/dL >40 [facility] Comment on above: The drugs N-Acetylcy steine and Metamizole may falsely depress this assay. Reference Range HDL <40 mg/dL Low HDL Cholesterol HDL >or= 60 mg/dL High HDL Cholesterol Serum or plasma cholesterol in VLDL measurement (mass/volume)on 06-29-2023 Cholesterol in VLDL [Mass/Vol] 11 mg/dL 5-40 [facility] Serum or plasma creatinine m easurement (mass/volume)on 06-29-2023 Creatinine [Mass/Vol] 1.55 mg/dL 0.70-1.30 [facility] Comment on above: The validity of the calculated GFR & GFRAA in patients over 70 years has not been determined. Clinical correlation is essential. Serum or plasma low density lipoprotein (LDL) cholesterol measurement (mass/volume)on 06-29-2023 Cholesterol in LDL [Mass/Vol] 103 mg/dL 0-130 [facility] Serum or plasma urea nitroge n measurement (mass/volume)on 06-29-2023 Urea nitrogen [Mass/Vol] 28 mg/dL 7-18 [facility] Thin prep Papanicolaou smear with manual screeningon 06-29-2023 Thin prep Papanicolaou smear with manual screening 21 U/L 15-37 [facility] Thin prep Papanicolaou smear with manual screening 6 5-15 [facility] Thin prep Papanicolaou smear with manual screening 32.2 mg/L NO RANGE EST. [facility] Urine creatinine measurement (mass/volume)on 06-29-2023 Creatinine (U) [Mass/Vol] 120.00 mg/dL NO RANGE EST. [facility] Whole blood hemoglobin A1c/t otal hemoglobin ratio (mass fraction)on 06-29-2023 HbA1c (Bld) [Mass fraction] 6.9 % 3.8-5.6 [facility] Comment on above: Normal < 5.7 % Predi abetic 5.7 - 6.4 % Diabetic >or= 6.5 % Please note range changes. Basophil percentageon 2021 Bilirubin [Mass/Vol] 0.70 mg/dL 0.20-1.00 [facility] Work Phone: Comment on above: For patients on eltr ombopag therapy, use of Dimension Ama[place] TBIL is not recommended. Chloride [Moles/Vol] 100 mmol/L 98-107 [facility] Work Phone: Cholesterol [Mass/Vol] 180 mg/dL <200 [facility] Work Phone: Comment on above: <200 mg/dL Desirable 200-240 mg/dL Borderline >240 mg/dL High Risk Glucose [Mass/Vol] 138 mg/dL 74-106 [facility] Work Phone: Comment on above: Fasting Glucose resu lt greater than or equal to 126 mg/dL suggests DIABETES MELLITUS per A.D.A. criteria. Potassium [Moles/Vol] 4.4 mmol/L 3.5-5.1 [facility] Work Phone: Protein [Mass/Vol] 7.5 g/dL 6.4-8.2 [facility] Work Phone: Sodium [Moles/Vol] 135 mmol/L 136-145 [facility] Work Phone: Triglyceride [Mass/Vol] 54 mg/dL <199 [facility] Work Phone: Comment on above: The drugs N-Acetylcy steine and Metamizole may falsely depress this assay.Serum Triglycerides Reference Interval Normal <150 mg/dL Borderline high 150 - 199 mg/dL High 200 - 499 mg/dL Very High > or = 500 mg/dL Laboratory - Chemistry and C hemistry - challengeon 06-04-2022 ALP [Catalytic activity/Vol] 66 U/L 45-117 [facility] Work Phone: ALT [Catalytic activity/Vol] 35 U/L 16-61 [facility] Work Phone: CO2 [Moles/Vol] 29.0 mmol/L 21.0-32.0 [facility] Work Phone: Globulin (S) [Mass/Vol] 3.4 g/dL 2.2-4.2 [facility] Work Phone: Urea nitrogen/Creatinine [Mass ratio] 18.2 mg/mg 10-20 [facility] Work Phone: Laboratory - Hematology and Cell countson 06-04-2022 HbA1c (Bld) [Mass fraction] 6.9 % [facility] Work Phone: No Panel Informationon 06-04 Estimated GFR (MDRD) Amer 56 mL/min >60 [facility] Work Phone: Comment on above: GFR Calc Estimated GFR (MDRD) Non-Af Amer 46 mL/min >60 [facility] Work Phone: Comment on above: Non- GFR Calc Thyroid Stimulating Hormone (TSH) 4.27 uIU/mL 0.358-3.74 [facility] Work Phone: Urine Microalbumin/Creatinine Ratio 97.5 mg/g CRE <30 [facility] Work Phone: Serum or plasma albumin jesenia urement (mass/volume)on 06-04-2022 Albumin [Mass/Vol] 4.1 g/dL 3.2-5.0 [facility] Work Phone: Serum or plasma albumin/glob ulin mass ratioon 06-04-2022 Albumin/Globulin [Mass ratio] 1.2 {ratio} 0.9-2.4 [facility] Work Phone: Serum or plasma calcium jesenia urement (mass/volume)on 06-04-2022 Calcium [Mass/Vol] 9.0 mg/dL 8.5-10.1 [facility] Work Phone: Serum or plasma cholesterol in HDL measurement (mass/volume)on 06-04-2022 Cholesterol in HDL [Mass/Vol] 59 mg/dL >40 [facility] Work Phone: Comment on above: The drugs N-Acetylcy steine and Metamizole may falsely depress this assay. Reference Range HDL <40 mg/dL Low HDL Cholesterol HDL >or= 60 mg/dL High HDL Cholesterol Serum or plasma cholesterol in VLDL measurement (mass/volume)on 06-04-2022 Cholesterol in VLDL [Mass/Vol] 11 mg/dL 5-40 [facility] Work Phone: Serum or plasma creatinine m easurement (mass/volume)on 06-04-2022 Creatinine [Mass/Vol] 1.54 mg/dL 0.70-1.30 [facility] Work Phone: Comment on above: The validity of the calculated GFR & GFRAA in patients over 70 years has not been determined. Clinical correlation is essential. Serum or plasma low density lipoprotein (LDL) cholesterol measurement (mass/volume)on 06-04-2022 Cholesterol in LDL [Mass/Vol] 110 mg/dL 0-130 [facility] Work Phone: Serum or plasma urea nitroge n measurement (mass/volume)on 06-04-2022 Urea nitrogen [Mass/Vol] 28 mg/dL 7-18 [facility] Work Phone: Thin prep Papanicolaou smear with manual screeningon 06-04-2022 Thin prep Papanicolaou smear with manual screening 27 U/L 15-37 [facility] Work Phone: Thin prep Papanicolaou smear with manual screening 6 5-15 [facility] Work Phone: Thin prep Papanicolaou smear with manual screening 116.0 mg/L NO RANGE EST. [facility] Work Phone: Urine creatinine measurement (mass/volume)on 06-04-2022 Creatinine (U) [Mass/Vol] 119.00 mg/dL NO RANGE EST. [facility] Work Phone: Echocardiogramon 07-10-[address] [facility] , [address] [place] [address], [address], [place] [address] and TRANSTHORACIC ECHOCARDIOGRAM REPORT Patient Name: FLEX KLINE Reading Physician: [id number] Diamond Hammer MD Study Date: 07/10/2021 Referring Physician: DAVID BABCOCK MRN/PID: [id number] PCP: Accession/Order#: [id number] Department Location: [facility] Date of : 1940 Fellow: Gender: M Nurse: Admit Date: Maintenance And Custodian Supervisor: Tono Blake RD Admission Status: Outpatient Additional Staff: Height: 180.34 cm CC Report to: Weight: 81.65 kg Study Type: Echocardiogram BSA: 2.02 m2 Blood Pressure: 141 /77 mmHg Diagnosis/ICD: 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 Indication: Coronary artery disease Procedure/CPT: Echo Complete w Full Doppler-[id number] Patient History: Pertinent History: CAD s/p CABG [...] Antonia: 1.52 PulmV Sys Antonia: 48.61 cm/s [id number] Diamond Hammer MD Electronically signed on 07/10/2021 at 8:33:27 PM Final Normal [facility] Blood Pressure Cuff Sizeon 0 06-24-2021 Fall risk assessment b) One or more fall s in the last year [facility] Work Phone: Tobacco use status [facility] b) No M [facility] Work Phone: Blood Pressure Cuff Size Adult [facility] Work Phone: Office Visit (Vascular [...] Mark ([email or web address]) on 2021-07-03 17:14 New Recipient: David Babcock New Appointment Date: 2021-07-10 10:00 AMA Intake [...] dominant, LM unclear, LCX moderate disease, 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 Was told by his primary canceling and cutting control clerk that he may need atherectomy to one [...] 40 mg QHS. Continue ranolazine and ISMR. 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 Was told by his primary canceling and cutting control clerk that he may need atherectomy to one of his vessels (?Cx). Additionally, it appears afterwards he had a MPI that demonstrated no inducible ischemia, normal LV size and function (low risk study) performed on 04-23-2021 and in response to this, it was decided that no further intervention was necessary. Dermatologist And Dermatopathologist: Harjinder Jones MD ([facility]) *Active Problems Problems Diabetes mellitus (250.00) [...] Clopidogrel Bisulfate (more content not included)... Normal [facility] Tobacco Screening.on 021 Fall risk assessment a) No falls within the last year [facility] [place] Work Phone: Tobacco use status [facility] b) No M [facility] [place] Work Phone: Vital Signs Date Time Vital Sign Value Performing Clinician Facility 2025 10:58-0400 Body height 176.5 cm Harjinder Jones MD Work Phone: [facility] 2025 10:58-0400 Body mass index (BMI) [Ratio] 26.2 kg/m2 Harjinder Jones MD Work Phone: [facility] 2025 10:58-0400 Body weight 81.65 kg Harjinder Jones MD Work Phone: [facility] 2025 10:58-0400 Diastolic blood pressure 60 mm[Hg] Harjinder Jones MD Work Phone: [facility] 2025 10:58-0400 Heart rate 82 /min Harjinder Jones MD Work Phone: [facility] 2025 10:58-0400 Respiratory rate 16 /min Harjinder Jones MD Work Phone: [facility] 2025 10:58-0400 SaO2% (BldA) [Mass fraction] 98 % Harjinder Jones MD Work Phone: [facility] 2025 10:58-0400 Systolic blood pressure 138 mm[Hg] Harjinder Jones MD Work Phone: [facility] 03-02-2025 10:37-0400 Body mass index (BMI) [Ratio] 26.2 kg/m2 Kwan Estrella MD Work Phone: [facility] 03-02-2025 10:37-0400 Body weight 81.65 kg Kwan Estrella MD Work Phone: [facility] 03-02-2025 10:37-0400 Diastolic blood pressure 63 mm[Hg] Kwan Estrella MD Work Phone: [facility] 03-02-2025 10:37-0400 Heart rate 69 /min Kwan Estrella MD Work Phone: [facility] 03-02-2025 10:37-0400 SaO2% (BldA) [Mass fraction] 99 % Kwan Estrella MD Work Phone: [facility] 03-02-2025 10:37-0400 Systolic blood pressure 113 mm[Hg] Kwan Estrella MD Work Phone: [facility] 02-27-2025 10:56-0400 Body height 180.[address] Felix Montelongo MD Work Phone: [facility] 02-27-2025 10:56-0400 Diastolic blood pressure 78 mm[Hg] Dr. Felix Montelongo MD Work Phone: [facility] 02-27-2025 10:56-0400 Heart rate 62 /min Dr. Felix Montelongo MD Work Phone: [facility] 02-27-2025 10:56-0400 SaO2% (BldA) [Mass fraction] 96 % Dr. Felix Montelongo MD Work Phone: [facility] 02-27-2025 10:56-0400 Systolic blood pressure 168 mm[Hg] Dr. Felix Montelongo MD Work Phone: [facility] 01-22-2025 13:41-0500 Body height 176.5 cm Harjinder Jones MD Work Phone: [facility] 01-22-2025 13:41-0500 Body mass index (BMI) [Ratio] 25.62 kg/m2 Harjinder Jones MD Work Phone: [facility] 01-22-2025 13:41-0500 Body weight 79.83 kg Harjinder Jones MD Work Phone: [facility] 01-22-2025 13:41-0500 Diastolic blood pressure 70 mm[Hg] Harjinder Jones MD Work Phone: [facility] 01-22-2025 13:41-0500 Heart rate 91 /min Harjinder Jones MD Work Phone: [facility] 01-22-2025 13:41-0500 Respiratory rate 14 /min Harjinder Jones MD Work Phone: [facility] 01-22-2025 13:41-0500 SaO2% (BldA) [Mass fraction] 97 % Harjinder Jones MD Work Phone: [facility] 01-22-2025 13:41-0500 Systolic blood pressure 156 mm[Hg] Harjinder Jones MD Work Phone: [facility] 11-30-2024 08:36-0500 Body height 180.[address] Felix Montelongo MD Work Phone: [facility] 11-30-2024 08:36-0500 Body mass index (BMI) [Ratio] 24.1 kg/m2 Dr. Felix Montelongo MD Work Phone: [facility] 11-30-2024 08:36-0500 Body weight 78.[address] Felix Montelongo MD Work Phone: [facility] 11-30-2024 08:36-0500 Diastolic blood pressure 72 mm[Hg] Dr. Felix Montelongo MD Work Phone: [facility] 11-30-2024 08:36-0500 Heart rate 93 /min Dr. Felix Montelongo MD Work Phone: [facility] 11-30-2024 08:36-0500 Respiratory rate 18 /min Dr. Felix Montelongo MD Work Phone: [facility] 11-30-2024 08:36-0500 Systolic blood pressure 138 mm[Hg] Dr. Felix Montelongo MD Work Phone: [facility] 11-01-2024 15:00-0500 Body temperature 97.6 [degF] Dr. Felix Montelongo MD Work Phone: [facility] 11-01-2024 15:00-0500 Diastolic blood pressure 54 mm[Hg] Dr. Felix Montelongo MD Work Phone: [facility] 11-01-2024 15:00-0500 Heart rate 76 /min Dr. Felix Montelongo MD Work Phone: [facility] 11-01-2024 15:00-0500 Respiratory rate 18 /min Dr. Felix Montelongo MD Work Phone: [facility] 11-01-2024 15:00-0500 SaO2% (BldA) [Mass fraction] 94 % Dr. Felix Montelongo MD Work Phone: [facility] 11-01-2024 15:00-0500 Systolic blood pressure 104 mm[Hg] Dr. Felix Montelongo MD Work Phone: [facility] 11-01-2024 06:00-0500 Body mass index (BMI) [Ratio] 24.3 kg/m2 Dr. Felix Montelongo MD Work Phone: [facility] 11-01-2024 06:00-0500 Body weight [address] Felix Montelongo MD Work Phone: [facility] 01-04-2024 15:09-0500 Body height 176.5 cm Rocío Denbow PA-C Work Phone: [facility] 01-04-2024 15:09-0500 Body weight 83.01 kg Rocío Denbow PA-C Work Phone: [facility] 01-04-2024 15:09-0500 Diastolic blood pressure 66 mm[Hg] Rocío Joeybow PA-C Work Phone: [facility] 01-04-2024 15:09-0500 Heart rate 73 /min Rocío Denbow PA-C Work Phone: [facility] 01-04-2024 15:09-0500 Respiratory rate 14 /min Rocío Wagner PA-C Work Phone: [facility] 01-04-2024 15:09-0500 SaO2% (BldA) [Mass fraction] 97 % Rocío Wagner PA-C Work Phone: [facility] 01-04-2024 15:09-0500 Systolic blood pressure 122 mm[Hg] Rocío Wagner PA-C Work Phone: [facility] 06-04-2022 08:28-0400 Body height 182.[address] Felix Montelongo Work Phone: [facility] Work Phone: 06-04-2022 08:28-0400 Body mass index (BMI) [Ratio] 26 kg/m2 Dr. Felix Montelongo Work Phone: [facility] Work Phone: 06-04-2022 08:28-0400 Body temperature 96.5 [degF] Dr. Felix Montelongo Work Phone: [facility] Work Phone: 06-04-2022 08:28-0400 Body weight 87.[address] Felix Montelongo Work Phone: [facility] Work Phone: 06-04-2022 08:28-0400 Diastolic blood pressure 76 mm[Hg] Dr. Felix Montelongo Work Phone: [facility] Work Phone: 06-04-2022 08:28-0400 Heart rate 58 /min Dr. Felix Montelongo Work Phone: [facility] Work Phone: 06-04-2022 08:28-0400 Respiratory rate 18 /min Dr. Felix Montelongo Work Phone: [facility] Work Phone: 06-04-2022 08:28-0400 SaO2% (BldA) [Mass fraction] 99 % Dr. Felix Montelongo Work Phone: [facility] Work Phone: 06-04-2022 08:28-0400 Systolic blood pressure 124 mm[Hg] Dr. Felix Montelongo Work Phone: [facility] Work Phone: 06-24-2021 13:44-0400 Body height 182.88 cm Referring Provider Unknown [facility] Work Phone: 06-24-2021 13:44-0400 Body mass index (BMI) [Ratio] 24.36 kg/m2 Referring Provider Unknown HE[facility]Mqn[facility]gpcufe[facility]Dphp [facility] Work Phone: 06-24-2021 13:44-0400 Body surface area Derived from formula 2.04 m2 Referring Provider Unknown XE-Roldkcmzze[facility]Qpjs [facility] Work Phone: 06-24-2021 13:44-0400 Body weight 81.47 kg Referring Provider Unknown NT[facility]Ilzeijcner[facility]Fjyu [facility] Work Phone: 06-24-2021 13:44-0400 Diastolic blood pressure 75 mm[Hg] Referring Provider Unknown UR[facility]Ptelbpscmw[facility]Pnic [facility] Work Phone: 06-24-2021 13:44-0400 Heart rate 81 /min Referring Provider Unknown DP[facility]Tdsgzetdzm[facility]Ehec [facility] Work Phone: 06-24-2021 13:44-0400 Systolic blood pressure 138 mm[Hg] Referring Provider Unknown KY[facility]Wjialwnljf[facility]Xkkq [facility] Work Phone: 06-24-2021 13:44-0400 0 1 Referring Provider Unknown YO[facility]Quimwqbshp[facility]Royl [facility] Work Phone: Comment on above: [facility] 05-15-2021 11:29-0400 Body height 182.88 cm Referring Provider Unknown GB-Wphfgctved-Fqvc [facility] [address] [place] Work Phone: 05-15-2021 11:29-0400 Body mass index (BMI) [Ratio] 24.28 kg/m2 Referring Provider Unknown UO-Xtkgkfqleq-Fivf [facility] [address] [place] Work Phone: 05-15-2021 11:29-0400 Body surface area Derived from formula 2.03 m2 Referring Provider Unknown TW-Cugtsekfwd-Yhpn [facility] [address] [place] Work Phone: 05-15-2021 11:29-0400 Body weight 81.19 kg Referring Provider Unknown PK-Omxsrttgzh-Fhlt [facility] [address] [place] Work Phone: 05-15-2021 11:29-0400 Diastolic blood pressure 86 mm[Hg] Referring Provider Unknown XR-Bdcpbnxcxa-Jdzm [facility] [address] [place] Work Phone: 05-15-2021 11:29-0400 Heart rate 82 /min Referring Provider Unknown MR-Yewumdvram-Qhwd [facility] [address] [place] Work Phone: 05-15-2021 11:29-0400 SaO2% (BldA) [Mass fraction] 94 % Referring Provider Unknown BX-Qxgdnnndxm-Slhj [facility] [address] [place] Work Phone: 05-15-2021 11:29-0400 Systolic blood pressure 180 mm[Hg] Referring Provider Unknown FB-Imxnefkqoe-Fmfn [facility] [address] [place] Work Phone: 05-15-2021 11:29-0400 0 1 Referring Provider Unknown DA-Mmqjttjumf-Cqjk [facility] [address] [place] Work Phone: Comment on above: [facility] Encounters Encounter Date Encounter Type Care Provider Facility Start: 04-26-2025 ambulatory Buzz ZHANG Fa cility:[facility] Start: 03-29-2025 ambulatory Buzz Vanessa cility:[facility] Start: 03-29-2025 Registered Referred Buzz Rainey MD -[facility] [place] Start: 2025 End: 2025 ambulatory HARJINDER JONES Facility:[facility] [facility] Start: 2025 End: 2025 Patient encounter procedure Harjinder Jones MD Work Phone: Cardiology Comment on above: Primary hypertension (Primary Dx); Coronary artery disease involving [place] coronary artery of [place] heart without angina pectoris Start: 03-02-2025 End: 03-02-2025 Patient encounter procedure Kwan Estrella MD Work Phone: [facility] Cardiology [place] Comment on above: Coronary artery dise ase involving [place] coronary artery of [place] heart, unspecified whether angina present (Primary Dx); PAC (premature atrial contraction); PVC (premature ventricular contraction); Atrial tachycardia (HCC) Start: 03-02-2025 End: 03-02-2025 ambulatory HARJINDER JONES Facility:[facility] Start: 03-01-2025 End: 03-01-2025 Departed Referred Buzz Rainey MD -[facility] Start: 02-28-2025 End: 03-01-[address] Felix Montelongo MD Work Phone: [facility] Work Phone: Start: 02-28-2025 End: 02-28-2025 Departed Referred Buzz Rainey MD [facility] Start: 02-27-2025 End: 02-27-[address] Ozzy Bro MD -[facility] Work Phone: Start: 02-27-2025 End: 02-28-2025 ambulatory Buzz ZHANG Facility:[facility] Start: 02-26-2025 End: 02-26-[address] Felix Montelongo MD Work Phone: [facility] Work Phone: Start: 02-26-2025 End: 02-26-2025 Patient encounter procedure Abeba CERVANTES -[facility] Work Phone: Start: 01-31-2025 End: 01-31-[address] Felix Montelongo MD Work Phone: [facility] Work Phone: Start: 01-31-2025 End: 01-31-2025 Departed Referred Buzz LeeShlomo [facility] Start: 01-31-2025 End: 01-31-2025 ambulatory Buzz ZHANG Facility:[facility] Start: 01-22-2025 End: 01-22-2025 ambulatory HARJINDER JONES Facility:[facility] Start: 01-22-2025 End: 01-22-2025 ambulatory HARJINDER JONES Facility:[facility] Start: 01-22-2025 End: 01-22-2025 Patient encounter procedure Harjinder Jones MD Work Phone: Cardiology Comment on above: Palpitations (Primar y Dx); Diastolic congestive heart failure, unspecified HF chronicity (HCC); Atherosclerosis of [place] coronary artery of [place] heart without angina pectoris Start: 01-04-2025 End: 01-04-2025 Patient encounter procedure Abeba CERVANTES -[facility] Work Phone: Start: 01-04-2025 End: 01-04-2025 ambulatory Abeba Peacock NP Facility:[facility] Start: 01-04-2025 Registered Referred Buzz LeeShlomo Ashraf Start: 12-26-2024 End: 12-26-2024 ambulatory Buzz Rainey Facility:[facility] Start: 12-26-2024 End: 12-26-[address] [facility] Work Phone: Start: 12-21-2024 End: 12-21-2024 ambulatory Abeba Peacock NP Facility:[facility] Start: 12-21-2024 End: 12-21-2024 Patient encounter procedure Abeba CERVANTES -[facility] Work Phone: Start: 12-19-2024 End: 12-19-2024 ambulatory Buzz Rainey Facility:[facility] Start: 12-19-2024 End: 12-19-[address] Buzz Rainey MD -[facility] Work Phone: Start: 12-07-2024 ambulatory Buzz ZHANG Fa cility:[facility] Start: 12-07-2024 Registered Referred Buzz DE LA O - [facility] Start: 12-04-2024 End: 12-04-2024 ambulatory Abeba Peacock BEHAVIORAL SCIENCES INSTRUCTOR Facility:[facility] Start: 12-04-2024 End: 12-04-2024 Patient encounter procedure Abeba Madonna BEHAVIORAL SCIENCES INSTRUCTOR-C -[facility] Work Phone: Start: 12-02-2024 ambulatory [facility] Start: 11-30-2024 End: 11-30-[address] Margie Gary MD -[facility] Work Phone: Start: 11-30-2024 End: 11-30-2024 ambulatory Margie Gary Facility:[facility] Start: 11-30-2024 ambulatory [facility] Start: 11-30-2024 Registered Referred Buzz Huddleston Start: 11-23-2024 ambulatory [facility] Start: 11-23-2024 Registered Referred Buzz Huddleston Start: 11-16-2024 ambulatory [facility] Start: 11-16-2024 Registered Referred Buzz Huddleston Start: 11-09-2024 ambulatory [facility] Facility:[facility] Start: 11-09-2024 Registered Referred Buzz Huddleston Start: 11-07-2024 End: 11-07-2024 ambulatory Buzz Rainey Facility:[facility] Start: 11-07-2024 End: 11-07-[address] Buzz Rainey MD -[facility] Work Phone: Start: 11-03-2024 ambulatory Buzz Vanessa cility:[facility] Start: 11-03-2024 Registered Referred Buzz Rainey MD -[facility] Start: 11-02-2024 End: 11-02-2024 ambulatory Abebasawyer Wadesandra BEHAVIORAL SCIENCES INSTRUCTOR Facility:[facility] Start: 11-02-2024 End: 11-02-2024 Patient encounter procedure Abeba Madonna BEHAVIORAL SCIENCES INSTRUCTOR- -[facility] Work Phone: Start: 11-01-2024 Non-patient / Non-visit Dr. Sung Richardson [facility] Work Phone: Start: 10-31-2024 ambulatory Ozzy Dieudonne Facility:[facility] Start: 10-31-2024 Non-patient / Non-visit Dr. Sung westbrook [facility] Work Phone: Start: 10-30-2024 Non-patient / Non-visit Dr. Sung Richardson [facility] Work Phone: Start: 10-29-2024 Non-patient / [facility] Work Phone: Start: 10-28-2024 Non-patient / Non-visit Dr. Marilu Laurent [facility] Work Phone: Start: 10-28-2024 ambulatory Angela Ramirez Facility:[facility] Start: 10-28-2024 Non-patient / Non-visit Dr. Angela gilmore MD -[facility] Start: 10-27-2024 ambulatory Sung Rhodes Facility:[facility] Start: 10-27-2024 End: 11-01-2024 Evaluation and management of inpatient Dr. Sung Rhodes DO -[facility] Work Phone: Start: 10-26-2024 End: 11-10-2024 [...] about it? Start: 10-25-2024 ambulatory Rita Calixto BEHAVIORAL SCIENCES INSTRUCTOR Fa cility:[facility] Start: 10-25-2024 End: 11-21-2024 ambulatory Rita Calixto BEHAVIORAL SCIENCES INSTRUCTOR Facility:[facility] Start: 09-11-2024 End: 09-11-2024 Refill Harjinder Jones MD Work Phone: [address] [place] [address] Comment on above: Refill Request Start: 02-01-2024 End: 02-01-2024 ambulatory Rocío Wagner PA-C Work Phone: Internal Medicine [facility] Comment on above: Controlled type 2 di abetes mellitus without complication, without long-term current use of insulin (HCC) (Primary Dx); Acquired hypothyroidism; Stage 3a chronic kidney disease (HCC); Parkinson's disease, unspecified whether dyskinesia present, unspecified whether manifestations fluctuate (HCC) Start: 02-01-2024 End: 02-01-2024 Telemedicine consultation with patient Rocío Wagner PA-C Work Phone: [facility] Start: 01-05-2024 ambulatory Rocío Wagner PA-C Work Phone: Internal Medicine [facility] Comment on above: Roller thing. Would like a prescription to Sammie Pleitez. 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); Essential tremor; Post herpetic neuralgia; Stage 3a chronic kidney disease (HCC) Start: 07-07-2023 End: 07-07-2023 ambulatory Marni Hudson MD Work Phone: Neurology Comment on above: Parkinson disease (H CC) (Primary Dx); Slow transit constipation Start: 07-07-2023 End: 07-07-2023 Telemedicine consultation with patient Marni Hudson MD Work Phone: [facility] Start: 06-29-2023 End: 06-29-2023 ambulatory [facility] Work Phone: Start: 06-29-2023 End: 06-29-2023 Patient encounter procedure [facility] Work Phone: Start: 02-19-2023 Telephone encounter [...] encounter procedure Dr. Felix Montelongo Work Phone: [facility] Start: 06-04-2022 End: 06-04-[address] Felix Montelongo Work Phone: [facility] Start: 05-26-2022 Telephone encounter Marni whiting MD Work Phone: Neurology Comment on above: Opened In Error Start: 05-17-2022 E-mail encounter fro m caregiver Marni Hudson MD Work Phone: [facility] Start: 05-17-2022 Patient encounter procedure Marni Hudson MD Work Phone: Neurology Comment on above: Request an Appointme nt Start: 03-25-2022 Telephone encounter Marni whiting MD Work Phone: Neurology Comment on above: upcoming appointment (pre-rooming phone call) Start: 06-24-2021 Current tobacco non- user cad cap copd pv dm Referring Provider Unknown [id number]-Fciaboxgnc-Qlcnnqpga [facility]VI [address] Work Phone: Start: 05-15-2021 Patient encounter procedure Referring Provider Unknown FM-Tdettbvvpp-Vfnawz [address] [place] Work Phone: Start: 10-25-2018 Ambulatory [facility] Facility :[facility] Start: 02-23-2018 End: 02-23-2018 Ambulatory [facility] Facility:[facility] Start: 01-31-2018 Ambulatory NICOLA PAYNE Facil ity:[facility] Procedures Date Procedure Procedure Detail Performing [...] to lateral CX per Dr. Garfield Dempsey, [facility] Cardiac catheterization Refe rring Provider Unknown Coronary artery bypass graft Referring Provider Unknown Plan of Treatment Date Care Activity Detail Author Start: 03-06-2026 End: 03-06-2026 Patient encounter procedure 03/06/2026 11:00 AM EDT Office Visit [facility] [address] [place] [address] Kwan Estrella MD [address] [id number] 1 yr f/u. eg [facility] Comment on above: 1 yr f/u. eg Start: 10-01-2025 End: 10-01-2025 Patient encounter procedure 10/01/2025 10:40 AM EST Office Visit Cardiology [address] [place] [address] Harjinder Jones MD [address], [address] [place], [place] [id number] 6 month follow up Cardiology Comment on above: 6 month follow up Start: 03-08-2025 Covid-19 Vaccine () Covid-19 Vaccine () [facility] Start: 2025 End: 2025 Patient encounter procedure 2025 11:00 AM EDT Office Visit Cardiology [address] [place] [id number] Harjinder Jones MD [address], [address] [place], [place] [id number] 6 weeek follow up Cardiology Comment on above: 6 weeek follow up Start: 01-22-2025 End: 04-23-2025 Natriuretic peptide.B prohormone N-Terminal [Mass/volume] in Serum or Plasma [facility] Comment on above: Expected: 01/22/2025 , Expires: 04/23/2025 Start: 01-22-2025 End: 04-23-2025 Thyrotropin [Units/volume] in Serum or Plasma [facility] Comment on above: Expected: 01/22/2025 , Expires: 04/23/2025 Start: 01-22-2025 End: 01-22-2025 Patient encounter procedure 01/22/2025 1:40 PM EST Office Visit Cardiology [address] [place] [address] Harjinder Jones MD [address] [place], [place] [phone] 6 month follow up from appt 11/29/23 Cardiology Comment on above: 6 month follow up fr om appt 11/29/23 Start: 11-22-2024 Advance Directive Discussion Advance Directive Discussion [facility] Start: 11-01-2024 Patient discharge [facility] Start: 10-29-2024 Following clinical pathway protocol [facility] Start: 10-28-2024 Following clinical pathway protocol [facility] Start: 10-28-2024 [facility] Start: 10-27-2024 Following clinical pathway protocol [facility] Start: 10-27-2024 Assessment of risk o f venous thromboembolism [facility] Start: 10-27-2024 Care regimes management [facility] Start: 10-27-2024 Insertion of cathete r into peripheral vein [facility] Start: 10-27-2024 Measuring intake and output [facility] Start: 10-27-2024 Notification of physician [facility] Start: 10-27-2024 Providing care accor ding to standard [facility] Start: 10-27-2024 Provision of activit y privileges [facility] Start: 10-27-2024 Referral to occupati onal therapist [facility] Start: 10-27-2024 Referral to service [facility] Start: 10-27-2024 End: 10-27-2024 [facility] Start: 10-27-2024 Admission procedure [facility] Start: 07-23-2024 Covid-19 Vaccine ( season) Covid-19 Vaccine ( season) [facility] Start: 07-23-2024 Influenza vaccination Influenza Vacc ine (#1) [facility] Start: 03-13-2024 End: 06-12-2024 Thyrotropin [Units/volume] in Serum or Plasma TSH BLD Lab Routine Acquired hypothyroidism Expected: 03/13/2024, Expires: 06/12/2024 [facility] Work Phone: Comment on above: Expected: 03/13/2024 , Expires: 06/12/2024 Start: 02-01-2024 End: 05-02-2024 CBC W Auto Differential panel - Blood CBC + DIFF Lab Routine Stage 3a chronic kidney disease (HCC) Controlled type 2 diabetes mellitus without complication, without long-term current use of insulin (HCC) Parkinson's disease, unspecified whether dyskinesia present, unspecified whether manifestations fluctuate (HCC) Expected: 02/01/2024, Expires: 05/02/2024 [facility] Work Phone: Comment on above: Expected: 02/01/2024 , Expires: 05/02/2024 Start: 02-01-2024 End: 05-02-2024 Hemoglobin A1c in Blood HGB A1C Lab Routine Controlled type 2 diabetes mellitus without complication, without long-term current use of insulin (HCC) Expected: 02/01/2024, Expires: 05/02/2024 [facility] Work Phone: Comment on above: Expected: 02/01/2024 , Expires: 05/02/2024 Start: 01-04-2024 End: 04-04-2024 Basic metabolic 2000 panel - Serum or Plasma [facility] Work Phone: Comment on above: Expected: 01/04/2024 , Expires: 04/04/2024 Start: 01-04-2024 End: 04-04-2024 Thyrotropin [Units/volume] in Serum or Plasma [facility] Work Phone: Comment on above: Expected: 01/04/2024 , Expires: 04/04/2024 Start: 11-22-2023 Advance Directive Discussion Advance Directive Discussion [facility] Start: 11-22-2023 Depression Assessment Depression Ass essment [facility] Start: 07-23-2023 Influenza vaccination INFLUENZA (#1) [facility] Start: 06-29-2023 Adult depression screening assessment DEPRESSION SCREENING [facility] Start: 01-19-2023 COVID-19 VACCINE (6 - Pfizer series) COVID-19 VACCINE (6 - Pfizer series) [facility] Start: 11-22-2022 ADVANCE DIRECTIVE DISCUSSION ADVANCE DIRECTIVE DISCUSSION [facility] Start: 11-22-2022 DEPRESSION ASSESSMENT DEPRESSION ASS ESSMENT [facility] Start: 09-24-2022 Adult depression screening assessment DEPRESSION SCREENING [facility] Start: 07-23-2022 Influenza vaccination INFLUENZA (#1) [facility] Start: 06-04-2022 Testosterone [facility] Work Phone: Start: 05-01-2022 COVID-19 VACCINE (5 - Booster for Pfizer series) COVID-19 VACCINE (5 - Booster for Pfizer series) [facility] Start: 12-15-2021 COVID-19 VACCINE (4 - Booster for Pfizer series) COVID-19 VACCINE (4 - Booster for Pfizer series) [facility] Start: 11-22-2021 ADVANCE DIRECTIVE DISCUSSION ADVANCE DIRECTIVE DISCUSSION [facility] Start: 11-22-2021 DEPRESSION ASSESSMENT DEPRESSION ASS ESSMENT [facility] Start: 07-10-2021 ECHO, Provider: AISHA RHODES,MG CARD, Status: Pen, Time: 10:00 AM OT-Wheggqguie-Wmzyg view [facility] [address] Work Phone: Start: 02-23-2019 Hepatitis B surface antibody level LDL CHOLESTEROL [facility] Start: 10-28-2016 Pneumococcal Vaccine : 50+ (2 of 2 - PPSV23) Pneumococcal Vaccine: 50+ (2 of 2 - PPSV23) [facility] Start: 10-28-2016 Pneumococcal Vaccine : 65+ (2 of 2 - PPSV23 or PCV20) Pneumococcal Vaccine: 65+ (2 of 2 - PPSV23 or PCV20) [facility] Start: 09-13-2012 Urine microalbumin profile DTaP,Tdap,Td Vaccine (1 - Tdap) [facility] Start: 07-11-2010 Urine microalbumin profile DTAP,TDAP,TD (1 - Tdap) [facility] Start: 2007 PNEUMOVAX AGE 65 AND OVER WITH 5YR LOOKBACK (#1) PNEUMOVAX AGE 65 AND OVER WITH 5YR LOOKBACK (#1) [facility] Start: 1992 SHINGRIX VACCINE (1 of 2) HINTON GRIX VACCINE (1 of 2) [facility] Start: 1960 ANNUAL PCP TEAM LEARNING ENGINEER BRYCE DISEASE VISIT ANNUAL PCP TEAM CHRONIC DISEASE VISIT [facility] Start: 1960 Anxiety Screening Anxiety Screening [facility] Start: 1960 Depression Screening Depression Scre ening [facility] Start: 1952 3 comp foot exam completed DIABETIC FOOT EXAM [facility] Start: 1952 Diabetic foot examination Diabetic F oot Exam [facility] Start: 1952 Glaucoma screening Dilated Retinal E xam [facility] Start: 1952 Hepatitis B screening URINE AL BUMIN:CREATININE RATIO [facility] Start: 1952 Hepatitis C antibody , confirmatory test DILATED RETINAL EXAM [facility] Start: 1948 PNEUMOCOCCAL: 65+ (1 - PCV) PNEUMOCOCCAL: 65+ (1 - PCV) [facility] Start: 1947 Hemoglobin A1c measurement HbA1C [facility] Start: 1947 Hemoglobin A1c/Hemoglobin.total in Blood HBA1C [facility] NM Heart Views W str ess and W radionuclide IV [facility] OUTSIDE VENDOR CARDI AC OUTPATIENT EXTENDED RHYTHM RECORDING (WITHOUT TELEMETRY) OUTSIDE VENDOR CARDIAC OUTPATIENT EXTENDED RHYTHM RECORDING (WITHOUT TELEMETRY) Holter Routine Palpitations Ordered: 01/22/2025 [facility] Work Phone: Comment on above: Ordered: 01/22/2025 Patient Education Urinary Tract Infections in Men UTIs Chest Pain [facility] Work Phone: Patient referral [facility] Work Phone: T4 free measurement [facility] Work Phone: Testosterone Free [Mass/volume] in Serum or Plasma [facility] Work Phone: Testosterone measurement [facility] Work Phone: [facility] Immunizations Immunization Date Immunization Notes Care Provider [facility] 09-13-2023 influenza virus vaccine, unspecified formulation Harjinder Jones MD Work Phone: [facility] 09-23-2020 influenza, injectabl e, quadrivalent, preservative free [facility] 09-23-2020 influenza, seasonal, injectable Dr. Felix Montelongo Work Phone: [facility] Work Phone: 09-05-2014 pneumococcal conjuga te vaccine, [address] Felxi Montelongo Work Phone: [facility] 07-23-2014 influenza, injectabl e, quadrivalent, preservative free [facility] 07-23-2014 influenza, seasonal, injectable Dr. Felix Montelongo Work Phone: [facility] Work Phone: 07-10-2010 tetanus and diphther ia toxoids, adsorbed, preservative free, for adult use (2 Lf of tetanus toxoid and 2 Lf of diphtheria toxoid) Marni Hudson MD Work Phone: [facility] Work Phone: 08-22-2007 pneumococcal conjuga te vaccine, 7 valent Marni Hudson MD Work Phone: [facility] Payers Date Payer Category Payer Self-pay [id number] 2022 Medicare [employer] [place] [id number] 2022-Present [phone] [address] [place] [address] [facility] [id number] 2022 Medicare (Managed Care) ID MEDIC ARE [id number] 2022 Medicare [id number] 2020 Medicare [employer] MEDICARE A ETNA MEDICARE PPO [id number] 2020-Present [phone] [address] [place] [address] O [id number] 2016 Medicare [id number] Private Health Insurance [facility] [id number] Private Health Insurance ALB VGRSY [id number] Private Health Insurance [id number] Unknown [employer] Unknown [id number] 2.16.840.1.697970.3.579 .2.462 Unknown [id number] 2.16.840.1.657549.3.579 .2.462 Unknown [id number] 2.16.840.1.531178.3.579 .2.462 Unknown [id number] 2.16.840.1.420500.3.579 .2.462 Unknown [id number] 2.16.840.1.815327.3.579 .2.462 Unknown [id number] 2.16.840.1.680276.3.579 .2.462 Unknown [id number] 2.16.840.1.311323.3.579 .2.462 Unknown [id number] 2.16.840.1.652405.3.579 .2.462 Unknown [id number] 2.16.840.1.975329.3.579 .2.462 Unknown [id number] 2.16.840.1.423489.3.579 .2.462 Unknown [id number] 2.16.840.1.573693.3.579 .2.462 Unknown [id number] 2.16.840.1.383396.3.579 .2.462 Unknown [id number] 2.16.840.1.674075.3.579 .2.462 Unknown [id number] 2.16.840.1.105327.3.579 .2.462 Unknown [id number] 2.16.840.1.145645.3.579 .2.462 Unknown [id number] 2.16.840.1.385709.3.579 .2.462 Unknown [id number] 2.16.840.1.186094.3.579 .2.462 Unknown [id number] 2.16.840.1.763405.3.579 .2.462 Unknown [id number] 2.16.840.1.574229.3.579 .2.462 Unknown [id number] 2.16.840.1.223348.3.579 .2.462 Unknown [id number] 2.16.840.1.185337.3.579 .2.462 Unknown [id number] 2.16.840.1.377499.3.579 .2.462 Unknown [id number] 2.16.840.1.323220.3.579 .2.462 Unknown [id number] 2.16.840.1.787338.3.579 .2.462 Unknown [id number] 2.16.840.1.390284.3.579 .2.462 Unknown [id number] 2.16.840.1.794194.3.579 .2.462 Unknown [id number] 2.16.840.1.696345.3.579 .2.462 Unknown [id number] 2.16.840.1.678939.3.579 .2.462 Unknown [id number] 2.16.840.1.725609.3.579 .2.462 Social History Date Type Detail Facility Start: 06-29-2022 End: 11-09-2024 Tobacco smoking status NHIS Never smoked tobacco [facility] Start: 10-20-2021 End: 2025 Alcohol intake Lifetime non-drinker (finding) [facility] Start: 09-25-2021 History SDOH Alcohol Frequency 1 [facility] Start: 1940 Sex Assigned At Not on file [facility] Start: 06-04-2022 End: 05-07-2023 Tobacco smoking status NHIS Unknown if ever smoked [facility] Start: 04-21-2021 None [facility] Start: 04-21-2021 Non-smoker [facility] Start: 1940 Sex Assigned At Male [facility] Start: 06-29-2022 Tobacco use and exposure Smokeless tobacco non-user [facility] Start: 06-19-2022 End: 06-29-2022 Exposure to SARS-CoV-2 (event) Not sure [facility] Start: 06-29-2022 End: 07-07-2023 History of Social function [facility] Start: 06-29-2022 End: 07-07-2023 Tobacco use panel [facility] Adult Depression Screening Assessment 2 [facility] Start: 07-28-2018 Spouse/ Signif icant Other [facility] Start: 02-23-2025 Sex Male (finding) [facility] Medical Equipment Procedure Code Equipment Code [...] Assessment Result Facility 11-01-2024 Functional status Ambulates [facility] Work Phone: 04-23-2021 Are you deaf, or do you have serious difficulty hearing No 04/23/2021 5:34 PM Randi Scott RN No [facility] 04-23-2021 Are you blind, or do you have serious difficulty seeing, even when wearing glasses No 04/23/2021 5:34 PM Randi Scott RN No [facility] 04-23-2021 Do you have serious difficulty walking or climbing stairs No 04/23/2021 5:34 PM Randi Scott, LINSEY No [facility] 04-23-2021 Do you have difficul ty dressing or bathing No 04/23/2021 5:34 PM Randi Scott RN No [facility] 04-23-2021 Because of a physica l, mental, or emotional condition, do you have difficulty doing errands alone such as visiting a physician's office or shopping No 04/23/2021 5:34 PM Randi Scott RN No [facility] Mental Status Date Assessment Result Facility 11-01-2024 Cognitive function Voice/Name [facility] [place] Work Phone: 04-23-2021 Because of a physica l, mental, or emotional condition, do you have serious difficulty concentrating, remembering, or making decisions No 04/23/2021 5:34 PM Randi Scott RN No [facility] Clinical Notes 03-25-2022 to 2025 Harjinder Jones MD - 2025 12:12 PM EDTPatient Kwan Chand MD - 03/02/2025 10:20 AM EDT Note Date & Type Note Facility 2025 Note HNO ID: [id number] Author: HARJINDER JONES MD Service: ? Author Type: Physician Type: Progress Notes Filed: 2025 12:16 Note Text: Harjinder Jones MD Interventional Cardiology [address] [place] [address] [phone] Chief Complaint Patient presents with: Follow Up: 6 week follow up, c/o chest pain HISTORY OF PRESENT ILLNESS: Mr. Kline is a 85 year old male seen in my office today for follow-up patient had a prior history of severe [place] coronary artery disease with prior history of [...] for this visit. (more content not included)... [facility] 2025 History of Present illness Narrative Images from the original note were not included. Harjinder Jones MD Interventional Cardiology [address] [place] [address] [phone] Chief Complaint Patient presents with: Follow Up: 6 week follow up, c/o chest pain HISTORY OF PRESENT ILLNESS: Mr. Kline is a 85 year old male seen in my office today for follow-up patient had a prior history of severe [place] coronary artery disease with prior history of [...] Value 01/22/2025 12.8 07/14/2018 Test sent to [facility]. Hematocrit (%) Date Value 01/22/2025 37.7 07/14/2018 Test sent to [facility]. WBC (k/uL) Date Value 01/22/2025 5.09 07/14/2018 Test sent to [facility]. Platelet Count (k/uL) Date Value 01/22/2025 216 07/14/2018 Test sent to [facility]. BMP: Glucose (mg/dL) Date Value 01/22/2025 [...] Ref Range Status 02/23/2018 Test sent to [facility]. <200 mg/dL Final Comment: Account Credited HIDE HDL Cholesterol Date Value Ref Range Status 02/23/2018 Test sent to [facility]. >39 mg/dL Final Comment: Account Credited HIDE LDL Cholesterol Date Value Ref Range Status 02/23/2018 Test sent to [facility]. <100 mg/dL Final Comment: Account Credited HIDE Triglyceride Date Value Ref Range Status 02/23/2018 Test sent to [facility]. <150 mg/dL Final Comment: Account Credited [...] aerobic exercise 2. Coronary artery disease involving [place] coronary artery of [place] heart without angina pectoris - ICD9: 414.01, [...] correct any errors. documented in this encounter [facility] 03-02-2025 Instructions Kwan Estrella MD - [...] at that time. documented in this encounter [facility] 03-02-2025 History of Present illness Narrative Images from the original note were not included. [facility] SECTION OF CARDIAC PACING and ELECTROPHYSIOLOGY OUTPATIENT VISIT DATE March 02, 2025 OUTPATIENT VISIT TYPE NEW PRIMARY CARE PHYSICIAN: Vincent Espinosa [address] [place] [address] REFERRING PHYSICIAN: Harjinder Jones [address], [address] [facility] [address] chief complaint on file. HISTORY OF PRESENT [...] currently a resident at [facility]. Had a recent UTI in 10/2024, still [...] fibrillation ECG 11/29/23 - SR 77 bpm SC 210 QRS 102 QT/c 364 411 PVC [...] rare (<1.0%). Isolated VEs were rare (<1.0%, 81341), VE Couplets were rare (<1.0%, 63), and [...] central nervous system(341.8) Peripheral vascular disease, unspecified ([facility]) Type II or unspecified type diabetes [...] hands EKG 03/02/25 .Sinus rhythm 68 bpm SC 264ms First degree AVB QRS 96ms QT/c [...] MD This note was partially generated using [employer] voice recognition system. documented in this encounter [facility] 03-02-2025 Note HNO ID: [id number] Author: KWAN ESTRELLA MD Service: ? Author Type: Physician Type: Progress Notes Filed: 03/02/2025 11:18 Note Text: [facility] SECTION OF CARDIAC PACING and ELECTROPHYSIOLOGY OUTPATIENT VISIT DATE March 02, 2025 OUTPATIENT VISIT TYPE NEW PRIMARY CARE PHYSICIAN: Vincent Espinosa [address] [place] [address] REFERRING PHYSICIAN: Harjinder Jones [address], [address] [facility] [address] chief complaint on file. HISTORY OF PRESENT [...] currently a resident at [facility]. Had a recent UTI in 10/2024, still [...] fibrillation ECG 11/29/23 - SR 77 bpm SC 210 QRS 102 QT/c 364 411 PVC [...] 115 bpm. Second Degree AV Block-Mobitz I ([place]) was present. Supraventricular Tachycardia was detected within +/- 45 seconds of symptomatic patient event(s). Isolated SVEs were rare (<1.0%), SVE Couplets were rare (<1.0%), and SVE Triplets were rare (<1.0%). Isolated VEs were rare (<1.0%, 89441), VE Couplets were rare (<1.0%, 63), and [...] central nervous system(341.8) Peripheral vascular disease, unspecified ([facility]) Type II or unspecified type diabetes [...] No social hist (more content not included)... [facility] 02-27-2025 Evaluation note Diagnosis Onset Date Resolution Type 2 diabetes mellitus acute February 27, 2025 10:51am CAD (coronary artery disease) chronic February 27, 2025 10:51am CKD (chronic kidney disease) chronic February 27, 2025 10:51am [place] [employer] Work Phone: 1(671) 396-905403-03-2025 NoteHNO ID: [id number] Author: BLANCA MARCELINO LPN Service: ? Author Type: LICENSED NURSE Type: Progress Notes Filed: 01/22/2025 15:05 Note Text: EVENT MONITOR DISPOSABLE PATCH INSTRUCTIONS Patient Name: Flex Atkinson [facility] Number: [id number] Skin prepped and cleansed with alcohol Patch secured to prepped area Monitor Activated Serial #: [id number] Patient Instructed: Prescribed order timeframe Bathing guidelines Usage of event button and diary documentation Return of monitor at the end of prescribed order Call with problems [phone] or [phone] ext. [phone] Patient expresses a good understanding of instructions [facility] History of Present illness Narrative* Blanca Marcelino LPN - 01/22/2025 3:04 PM EST EVENT MONITOR DISPOSABLE PATCH INSTRUCTIONS Patient Name: Flex Atkinson [facility] Number: [id number] Skin prepped and cleansed with alcohol Patch secured to prepped area Monitor Activated Serial #: [id number] Patient Instructed: Prescribed order timeframe Bathing guidelines Usage of event button and diary documentation Return of monitor at the end of prescribed order Call with problems [phone] or [phone]. [phone] Patient expresses a good understanding of instructions Blanca Marcelino LPN * Harjinder Jones MD - 01/22/2025 2:34 PM EST Images from the original note were not included. Hajrinder Jones MD Interventional Cardiology [address] [address] [phone] Chief Complaint Patient presents with: Follow Up: [...] central nervous system(341.8) Peripheral vascular disease, unspecified ([facility]) Type II or unspecified type diabetes [...] Value 04/22/2021 12.5 07/14/2018 Test sent to [facility]. Hematocrit (%) Date Value 04/22/2021 36.8 07/14/2018 Test sent to [facility]. WBC (k/uL) Date Value 04/22/2021 5.50 07/14/2018 Test sent to [facility]. Platelet Count (k/uL) Date Value 04/22/2021 197 07/14/2018 Test sent to [facility]. BMP: Glucose (mg/dL) Date Value 01/04/2024 [...] Ref Range Status 02/23/2018 Test sent to [facility]. <200 mg/dL Final Comment: Account Credited HIDE HDL Cholesterol Date Value Ref Range Status 02/23/2018 Test sent to [facility]. >39 mg/dL Final Comment: Account Credited HIDE LDL Cholesterol Date Value Ref Range Status 02/23/2018 Test sent to [facility]. <100 mg/dL Final Comment: Account Credited HIDE Triglyceride Date Value Ref Range Status 02/23/2018 Test sent to [facility]. <150 mg/dL Final Comment: Account Credited [...] to check his BMP 3. Atherosclerosis of [place] coronary artery of [place] heart without angina pectoris - ICD9: 414.01, ICD10: I25.10 Stable status prior history of bypass surgery Harjinder Jones MD Follow up plannin weeks Electronically signed by Harjinder Jones MD on January 22, 2025, 2:34 PM The above note was partially created using a dictation recognition software. A reasonable attempt has been made to correct any errors. documented in this encounterC[facility]03-[facility]-2025 NoteHNO ID: [id number] Author: HARJINDER JONES MD Service: ? Author Type: Physician Type: Progress Notes Filed: 01/22/2025 14:39 Note Text: Harjinder Jones MD Interventional Cardiology [address] [place], [place] [address] [phone] Chief Complaint Patient presents with: Follow Up: [...] central nervous system(341.8) Peripheral vascular disease, unspecified ([facility]) Type II or unspecified type diabetes [...] loss, nosebleeds, sinus concepcion (more content not included)...[facility] 01-22-2025 NoteHNO ID: [id number] Author: HARJINDER JONES MD Service: ? Author Type: Physician Type: Procedures Filed: 02/09/2025 17:23 Note Text: Patient Name: Flex lKine : 1940 Ordering Provider: Harjinder Jones Indication: [...] rare (<1.0%). Isolated VEs were rare (<1.0%, 02610), VE Couplets were rare (<1.0%, 63), and VE Triplets were rare (<1.0%, 19). Ventricular Bigeminy and Trigeminy were present. Difficulty discerning atrial activity making definitive diagnosis difficult to ascertain.[facility]01-09-2025 Evaluation note* Diagnosis Onset Date Resolution Status Admit Date CAD (coronary artery disease) chronic November 30 9:59am Chest pain chronic November 30, 025 9:59am Diabetes chronic November 30, 2 025 9:59am Diastolic dysfunction chronic Rico uary 2024 [...] kidney disease) chronic February 27, 2025 10:51am [facility] Work Phone: 1(415) 166-739112-20-2024 Telephone encounter Note* Telephone Encounter - Florence Reed MA - 11/10/2024 11:09 AM EST Called pt to offer appt on cancellation list. Pt is currently in rehab facility and unable to come.Will call once he is out if needs to be seen sooner. Florence Reed MA [facility]12-20-2024 Miscellaneous Notes* Telephone Encounter - Florence [...] Ana Laura Rosario RN documented in this encounterC[facility] Clinic [facility]12-13-2024 Telephone encounter Note * Telephone Encounter - Ana Laura Rosario RN - 11/03/2024 9:09 AM EST Called and left VM asking the patient to call back to schedule and office visit. If patient calls back please offer 11/13/24 at 1:20pm or 11/27/24 at 1:20pm and ask for an update on the patient's symptoms. Ana Laura Rosario RN [facility]12-11-2024 [facility] Medical Records Department [address] [place] [id number] Discharge Summary 11/01/24 1501 MR#: [id number] Acct: [id number] Name: FLEX KLINE Rep #: [id number] : 1940 84 From: Sung Rhodes DO PCP: Dr. Felix Montelongo MD Status:ADM IN Location: [place] [id number] Providers Date of Admission: 10/27/24 Primary Care [...] on Synthroid VTE prophylaxis: LMWH Disposition: to [facility] pending insurance authorization. 10/31: Talked [...] tablet,delayed release 81 mg PO DAILY@0800 [facility] 07/28/18 nitroglycerin 0.4 mg sublingual tablet 0.4 [...] years or YOUNGER s (more content not included)...[facility]12-06-2024 Evaluation note* Diagnosis Onset Date Resolution Status Admit Date Acute UTI resolved October 27, 2024 4:33pm Chest pain resolved October 27, 2024 4:33pm CAD (coronary artery disease) chronic November 30 9:59am Chest pain chronic November 30, 025 9:59am Diabetes chronic November 30 025 9:59am Diastolic dysfunction chronic Nov 9:59am Dyslipidemia chronic November 30, 2024 9:59am Essential hypertension chronic Ja nuary 2024 9:59am Parkinson's disease chronic Janua ry 2024 9:59am 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 Please Advise Ana Laura Rosario RN [facility]10-21-2024 Telephone encounter Note* Telephone Encounter - [...] CHEST PAIN. IF NO RELIEF CALL 911 Ruth Ann Hernandez September 11, 2024 8:46 AM [facility]10-21-2024 Miscellaneous Notes* Telephone Encounter - Ruth [...] CHEST PAIN. IF NO RELIEF CALL 911 Ruth Ann Hernandez September 11, 2024 8:46 AM documented in this encounterCleveland Clinic [facility]03-12-2024 History of Present illness Narrative* Rocío Wagner PA-C - 02/01/2024 3:01 PM EDT This Team Access Model visit is a phone encounter. It required patient-provider interaction for themedical decision making as documented below. Patient agrees to the visit: Yes Patient Location: [place] I have communicated my name and active licensure. The patient's identity and physical location wereverified at the time of this visit. Either the patient or their legal signs and displays sales representative has been informed of the [...] Parkinson's and associated tremors. Last A1c at [facility] was in 07/14 was 6.9. REVIEW [...] Rocío Wagner PA-C documented in this encounterCleveland Clinic [facility]02-27-2024 Miscellaneous Notes* Telephone Encounter - Juliana Choi [...] pt. Florence Santos LPN documented in this encounterCleveland Clinic [facility]02-14-2024 Miscellaneous Notes* Telephone Encounter - Rocío Wagner PA-C - 01/05/2024 3:39 PM EST Rx printed and signed, place on your desk blanca. Rocío Wagner PA-C * Telephone Encounter - [...] prescription? Rocío Wagner PA-C documented in this encounterCleveland Clinic [facility]02-13-2024 History of Present illness Narrative* Rocío Wagner PA-C - 01/04/2024 3:13 PM EST CC: Patient presents with: New Patient HPI Flex Kline is a 83 year old male who presents today to establish care. Had comprehensive blood panel done about 1 month ago through previous primary, Dr. Montelongo. 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 [...] GFR 46 from most recent labs through [facility] in 07/14. 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 REVIEW OF SYSTEMS See HPI All other [...] PNL 4. 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) - ICD9: 357.81, ICD10: G61.81 See above [...] plan. Rocío Wagner PA-C documented in this encounterCleveland Clinic [facility]08-16-2023 Instructions* Patient Instructions* Marni Hudson MD [...] or you can send a message through [employer]. You can also now schedule and select appointments through [employer]. Marni Hudson MD Constipation and Other Gastrointestinal [...] future constipation. Treatments fall into two categories: xybv-kmf-dszuxct and prescription therapies. Remember: consult with your [...] day and your own convenience and preference. Yngo-xco-Mfrehkv Products Absk-wij-mgqltlw treatments for constipation can be purchased at [...] It also comes as a capsule (S[place] Smooth Move ). ving with PD Constipation [...] easier to pass. These can be used fdc but should not be used in combination [...] after other remedies have failed. Among the orau-rwb-veqadza laxatives, they are most likely to cause [...] psyllium (Perdiem ). Common Side Effects of Jeni-oxw-Rzpytgm Products for Constipation Emollient (Stool Softeners) Skin [...] any side effects listed. Prescription Products When jlcm-izl-gmebtqh remedies fail, your healthcare provider may recommend [...] Stimulant X Bisacodyl (Dulcolax ) Stimulant X [place] Oil Stimulant X Cellulose (Unifiber ) Bulk [...] Docusate (Senokot ) Stimulant X Adapted from: [facility] Website, accessed March 17, 2016, www.carmenGuideIT/Break Media/druginformation/ [id number] Special Precautions For your safety, consult your [...] For more information and resources see https://www.parkinson.org/. [facility] is a Center of Excellence for the Parkinson s Foundation. documented in this encounterCleveland Clinic [facility]08-16-2023 History of Present illness Narrative* Marni Hudson MD - 07/07/2023 7:02 AM EDT [facility] - FOLLOW UP EVALUATION - VIRTUAL VISIT Felix Montelongo MD [address] [address] Dear Felix Montelongo MD: I had the pleasure of seeing Mr. Kline for follow-up today. As you know he is a 83 year old right-handed male with a history of ET/PD since 2015(?) . 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 He is seen alone. We had a visit using: Nudge I have communicated my name and active licensure. The patient's identity and physical location wereverified at the time of this visit. Either the patient or their legal signs and displays sales representative has been informed of the [...] to schedule and only given options of [place] or [place]. Open to [facility]. Constipation. Prunes used [...] 1 1 1 Level of service : 00293 (40-54 min). Time spent 41 min on the day of service, which included preparing to see the patient, ghwh-gv-wvjw patient care, completing clinical documentation, and counseling and educating the patient/family/caregiver. Thank you for allowing me to be part of the clinical care of this patient! I look forward to continued participation in the patient s care with you. Please do not hesitate to call with any questions. Sincerely, Marni Hudson MD documented in this encounterCleveland Clinic [facility]03-31-2023 Miscellaneous Notes* Telephone Encounter - Caitlin Peacock MA - 02/19/2023 7:56 AM EDT Message therapy order mailed to patient home per Dr. Hudson request documented in this encounterCleveland Clinic [facility] Hospital03-31-2023 Instructions* Patient Instructions* Marni Hudson MD [...] or you can send a message through [employer]. You can also now schedule and select appointments through [employer]. Marni Hudson MD documented in this encounterCleveland Clinic [facility]03-31-2023 History of Present illness Narrative* Marni Hudson MD - 02/19/2023 7:02 AM EDT [facility] - FOLLOW UP EVALUATION - VIRTUAL VISIT Felix Montelongo MD, MD [address] [address] Dear Felix Montelongo MD, MD: I had the pleasure of seeing Mr. Kline for follow-up today. As you know he is a 82 year old right-handed male with a history of ET/PD since 2016(?) . 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 We had a visit using: Nudge I have communicated my name and active licensure. The patient's identity and physical location wereverified at the time of this visit. Either the patient or their legal signs and displays sales representative has been informed of the [...] 1 1 1 Level of service : 04978 ( 30-39 min). Time spent 30 min on the day of service, which included preparing to see the patient, uovh-yu-avht patient care, completing clinical documentation, counseling and educating the patient/family/caregiver, and ordering medications, tests, or procedures. Thank you for allowing me to be part of the clinical care of this patient! I look forward to continued participation in the patient s care with you. Please do not hesitate to call with any questions. Sincerely, Marni Hudson MD documented in this encounterCleveland Clinic [facility]01-27-2023 Instructions* Patient Instructions* Marni Hudson MD [...] or you can send a message through [employer]. You can also now schedule and select appointments through [employer]. Marni Hudson MD documented in this encounterCleveland Clinic [facility]01-27-2023 History of Present illness Narrative* Marni Hudson MD - 12/18/2022 6:56 AM EST [facility] - FOLLOW UP EVALUATION - VIRTUAL VISIT Felix Montelongo MD, MD [address] [facility] [address] Dear Felix Montelongo MD, MD: I had the pleasure of seeing Mr. Kline for follow-up today. As you know he is a 82 year old right-handed male with a history of ET/PD since 2016(?) . 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 He is seen with a daughter. We had a visit using: Nudge I received consent from the patient to [...] 1 1 1 Level of service : 30051 (40-54 min). Time spent 51 min on the day of service, which included preparing to see the patient, znls-zq-nhja patient care, completing clinical documentation, and counseling and educating the patient/family/caregiver. Thank you for allowing me to be part of the clinical care of this patient! I look forward to continued participation in the patient s care with you. Please do not hesitate to call with any questions. Sincerely, Marni Hudson MD documented in this encounterCleveland Clinic [facility] Hospital12-21-2022 Miscellaneous Notes* Telephone Encounter - Jazzy Bonds - 11/11/2022 9:17 AM EST Last FUV Jun 2022 with ANNA. Next FUV 12/17/22 with ANNA. documented in this encounterCleveland Clinic [facility] Hospital07-05-2022 Miscellaneous Notes* Telephone Encounter - Marlena Moya - 05/26/2022 1:[address] Hudson had an opening on 06/03/22. Added patient to schedule; notified him of appt details via voicemail and [employer] message. Marlena Moya * Telephone Encounter - [...] 9:06 AM Routing comment documented in this encounterCleveland Clinic [facility] Hospital05-04-2022 Miscellaneous Notes* Telephone Encounter - Sharron Higginbotham MA - 03/25/2022 1:55 PM EDT Called patient to get the pre-rooming intake. I left voice mail for a returned call to the office to have this completed. If patient returns call please transfer call to myself or another clinical staff member. Thanks! Sharron Higginbotham MA documented [facility] encounterOhio[facility]* Diagnosis Onset Date Resolution Status CKD (chronic kidney disease) chronic Edema chronic Fatigue chronic HTN (hypertension) chronic Hypothyroidism chronic Type II diabetes mellitus, uncontrolled chronic [facility] Work Phone: Evaluation note* Diagnosis Parkinson disease (HCC)- Primary Paralysis agitans Essential tremor Essential and other specified forms of tremor documented in this encounter [facility] note* Diagnosis Parkinson disease (HCC)- Primary Paralysis agitans Muscle stiffness Unspecified disorder of muscle, ligament, and fascia Muscle pain Mylagia and myositis, unspecified documented in this encounter [facility] note* Diagnosis Parkinson disease (HCC)- Primary Paralysis agitans Slow transit constipation documented in this encounter [facility] noteNo assessment information availableWKettering [facility] Work Phone: Evaluation note* Diagnosis Controlled type 2 diabetes mellitus without complication, without long-term current use of insulin ([facility])- Primary Acquired hypothyroidism Unspecified hypothyroidism Parkinson's disease, unspecified whether dyskinesia present, unspecified whether manifestations fluctuate CIDP (chronic inflammatory demyelinating polyneuropathy) ([facility]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 Essential tremor Essential and other specified forms of tremor 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 Stage 3a chronic kidney disease ([facility]) documented in this encounter [facility] note* Diagnosis Controlled type 2 diabetes mellitus without complication, without long-term current use of insulin (HCC)- Primary Acquired hypothyroidism Unspecified hypothyroidism Stage 3a chronic kidney disease (HCC) Parkinson's disease, unspecified whether dyskinesia present, unspecified whether manifestations fluctuate (HCC) documented in this encounter [facility] note* Diagnosis Palpitations- Primary Diastolic congestive heart failure, unspecified HF chronicity (HCC) Atherosclerosis of [place] coronary artery of [place] heart without angina pectoris documented in this encounter [facility] note* Diagnosis Coronary artery disease involving [place] coronary artery of [place] heart, unspecified whether angina present- Primary PAC (premature atrial contraction) Supraventricular premature beats PVC (premature ventricular contraction) Other premature beats Atrial tachycardia (HCC) Other specified cardiac dysrhythmias [facility] Primary hypertension- Primary Unspecified essential hypertension Coronary artery disease involving [place] coronary artery of [place] heart without angina pectoris [facility] (narrative)No reason for referral information availableWKettering [facility] Work Phone: Summary Purpose Family [...] FoundDocuments on File Type Date Recorded 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 Reason for Visit [...] WORK November 30, 2024 5: 15am S/P [facility] 11/01November 30, 2024 9: 59am ADMISSION EXAM December 04, 2024 1 2:52pm INTERMEDIATE LAB WORK December 07, 2024 5:00am ADMISSION EXAM December 19, 2024 1 :28pm NEW CONCERN December 21, 2024 2 :05pm NEW CONCERN December 26, 2024 1 :17pm INTERMEDIATE LAB WORK January 04 5:00am NEW CONCERN January 04, 2025 12:35pm INTERMEDIATE LAB WORK January 31, 2025 5 :00am [...] WORK November 30, 2024 5: 15am S/P [facility] 11/01November 30, 2024 9: 59am ADMISSION EXAM December 04, 2024 1 2:52pm INTERMEDIATE LAB WORK December 07, 2024 5:00am ADMISSION EXAM December 19, 2024 1 :28pm NEW CONCERN December 21, 2024 2 :05pm NEW CONCERN December 26, 2024 1 :17pm INTERMEDIATE LAB WORK January 04 5:00am NEW CONCERN January 04, 2025 12:35pm INTERMEDIATE LAB WORK January 31, 2025 5 :00am 21 M FU RS 10/26 CX 10/31February 27 10:51am INTERMEDIATE LAB WORK February 28, 2025 5: 00am [...] 27, 2025 10:51am Chief Complaint Admit Date INTERMEDIATE LAB WORK December 07, 2024 5:00am ADMISSION EXAM December 19, 2024 1 :28pm NEW CONCERN December 21, 2024 2 :05pm NEW CONCERN December 26, 2024 1 :17pm INTERMEDIATE LAB WORK January 04 5:00am NEW CONCERN January 04, 2025 12:35pm INTERMEDIATE LAB WORK January 31, 2025 5 :00am NEW CONCERN February 26, 2025 3:51 pm 21 M FU RS 10/26 CX 10/31February 27 10:51am INTERMEDIATE LAB WORK February 28, 2025 5: 00am LABWORK March 01, 2025 5:0 0am Reason for Visit Admit Date Type 2 diabetes mellitus February 27, 2025 10:51am CAD (coronary artery disease) February 27, 2025 10:51am CKD (chronic kidney disease) February 27, 2025 10:51am Reason for Referral Specialty Diagnoses / Procedures Referred By Contblanca t Referred To Contact Diagnoses Parkinson disease (HCC) Essential tremor Procedures PROVIDER ORDERED FOLLOW UP OFFICE/OUTPATIENT NEW HIGH MDM 60-74 MINUTES Marni Hudson MD [facility] [address] [address] Referral ID Status Reason Start Date Expiration Date Visits Requested Visits Authorized [id number] Pending Review PCP Requested Referral 02/15/2023 12/18/2023 1 1 Specialty Diagnoses / Procedures Referred By Contac t Referred To Contact Diagnoses Parkinson disease (HCC) Procedures PROVIDER ORDERED FOLLOW UP OFFICE/OUTPATIENT NEW HIGH MDM 60-74 MINUTES Marni Hudson MD [address] [place] [address] Referral ID Status Reason Start Date Expiration Date Visits Requested Visits Authorized [id number] Pending Review PCP Requested Referral 05/21/2023 02/19/2024 1 1 Specialty Diagnoses / Procedures Referred By Contac t Referred To Contact Diagnoses Parkinson disease (HCC) Muscle stiffness Muscle pain Procedures CONSULT TO MASSAGE THERAPY OFFICE/OUTPATIENT NEW HIGH MDM 60-74 MINUTES Marni Hudson MD [address] [place] [address] Referral ID Status Reason Start Date Expiration Date Visits Requested Visits Authorized [id number] Pending Review PCP Requested Referral 02/19/2023 02/19/2024 1 1 Referral ID Status Reason Start Date Expiration Date Visits Requested Visits Authorized [id number] Pending Review PCP Requested Referral 07/06/2024 1 1 Specialty Diagnoses / Procedures Referred By Contac t Referred To Contact Diagnoses Parkinson disease (HCC) Procedures CONSULT TO MASSAGE THERAPY OFFICE/OUTPATIENT NEW HIGH MDM 60-74 MINUTES Marni Hudson MD [address] [place] [address] Referral ID Status Reason Start Date Expiration Date Visits Requested Visits Authorized [id number] Pending Review PCP Requested Referral 07/07/2023 07/06/2024 1 1 Specialty Diagnoses / Procedures Referred By Contac t Referred To Contact [facility] Diagnoses Parkinson disease (HCC) Procedures CONSULT TO PHYSICAL THERAPY PHYSICAL THERAPY EVALUATION HIGH COMPLEX 45 MINS Marni Hudson MD [address] [address] [facility] [address] [address] Referral ID Status Reason Start Date Expiration Date Visits Requested Visits Authorized [id number] Pending Review Auto-Generat ed Referral 07/07/2023 07/06/2024 1 1 Additional Source Comments (unrecognized sect ion and content) No Status Records FoundNo Status Records FoundNo Status Records FoundNo Status Records FoundNo Status Records FoundNo Status Records Found INFORMATION SOURCE (unrecogn ized section and content) DATE CREATED AUTHOR 05/12/2018 [facility] DATE CREATED AUTHOR AUTHOR'S ORGANIZ ATION 07/11/2021 [facility] DATE CREATED AUTHOR AUTHOR'S ORGANIZ ATION 07/21/2021 [facility] DATE CREATED AUTHOR AUTHOR'S ORGANIZ ATION 03/04/2025 [facility] DATE CREATED AUTHOR AUTHOR'S ORGANIZ ATION 03/06/2025 [facility] DATE CREATED AUTHOR AUTHOR'S ORGANIZ ATION 04/26/2025 [facility] Source Comments (unrecognize d section and content) In the event this informatio n is protected by the Federal Confidentiality of Alcohol and Drug Abuse Patient Records regulations: The Federal rules restrict any use of the information to criminally investigate or prosecute any alcohol or drug abuse patient.[facility] the event this information is protected by the Federal Confidentiality of Alcohol and Drug Abuse Patient Records regulations: The Federal rules restrict any use of the information to criminally investigate or prosecute any alcohol or drug abuse patient.[facility] Hospital[facility] the event this information is protected by the Federal Confidentiality of Alcohol and Drug Abuse Patient Records regulations: The Federal rules restrict any use of the information to criminally investigate or prosecute any alcohol or drug abuse patient.[facility] the event this information is protected by the Federal Confidentiality of Alcohol and Drug Abuse Patient Records regulations: The Federal rules restrict any use of the information to criminally investigate or prosecute any alcohol or drug abuse patient.[facility] Hospital[facility] the event this information is protected by the Federal Confidentiality of Alcohol and Drug Abuse Patient Records regulations: The Federal rules restrict any use of the information to criminally investigate or prosecute any alcohol or drug abuse patient.[facility] Hospital[facility] the event this information is protected by the Federal Confidentiality of Alcohol and Drug Abuse Patient Records regulations: The Federal rules restrict any use of the information to criminally investigate or prosecute any alcohol or drug abuse patient.[facility] Hospital[facility] the event this information is protected by the Federal Confidentiality of Alcohol and Drug Abuse Patient Records regulations: The Federal rules restrict any use of the information to criminally investigate or prosecute any alcohol or drug abuse patient.[facility] Hospital[facility] the event this information is protected by the Federal Confidentiality of Alcohol and Drug Abuse Patient Records regulations: The Federal rules restrict any use of the information to criminally investigate or prosecute any alcohol or drug abuse patient.[facility] Hospital[facility] the event this information is protected by the Federal Confidentiality of Alcohol and Drug Abuse Patient Records regulations: The Federal rules restrict any use of the information to criminally investigate or prosecute any alcohol or drug abuse patient.[facility] Hospital[facility] the event this information is protected by the Federal Confidentiality of Alcohol and Drug Abuse Patient Records regulations: The Federal rules restrict any use of the information to criminally investigate or prosecute any alcohol or drug abuse patient.[facility] Hospital[facility] the event this information is protected by the Federal Confidentiality of Alcohol and Drug Abuse Patient Records regulations: The Federal rules restrict any use of the information to criminally investigate or prosecute any alcohol or drug abuse patient.[facility] Hospital[facility] the event this information is protected by the Federal Confidentiality of Alcohol and Drug Abuse Patient Records regulations: The Federal rules restrict any use of the information to criminally investigate or prosecute any alcohol or drug abuse patient.[facility] Hospital[facility] the event this information is protected by the Federal Confidentiality of Alcohol and Drug Abuse Patient Records regulations: The Federal rules restrict any use of the information to criminally investigate or prosecute any alcohol or drug abuse patient.[facility] Hospital[facility] the event this information is protected by the Federal Confidentiality of Alcohol and Drug Abuse Patient Records regulations: The Federal rules restrict any use of the information to criminally investigate or prosecute any alcohol or drug abuse patient.[facility] Hospital[facility] the event this information is protected by the Federal Confidentiality of Alcohol and Drug Abuse Patient Records regulations: The Federal rules restrict any use of the information to criminally investigate or prosecute any alcohol or drug abuse patient.[facility] Hospital[facility] the event this information is protected by the Federal Confidentiality of Alcohol and Drug Abuse Patient Records regulations: The Federal rules restrict any use of the information to criminally investigate or prosecute any alcohol or drug abuse patient.[facility] Hospital[facility] the event this information is protected by the Federal Confidentiality of Alcohol and Drug Abuse Patient Records regulations: The Federal rules restrict any use of the information to criminally investigate or prosecute any alcohol or drug abuse patient.[facility] Hospital[facility] the event this information is protected by the Federal Confidentiality of Alcohol and Drug Abuse Patient Records regulations: The Federal rules restrict any use of the information to criminally investigate or prosecute any alcohol or drug abuse patient.[facility] Reason for Visit (unrecogniz ed section and content) Reason Comments upcoming appointment pre-rooming phone c all Reason Comments Opened In Error Reason Comments Opened In Error Reason Comments Telemedicine Specialty Diagnoses / Procedures Referred By Contac t Referred To Contact Diagnoses Parkinson disease (HCC) Gait instability Procedures PROVIDER ORDERED FOLLOW UP OFFICE/OUTPATIENT NEW HIGH [facility] 60-74 MINUTES Marni Hudson MD [address] [address] Referral ID Status Reason Start Date Expiration Date V isits Requested Visits Authorized [id number] Closed PCP Requested Referral 06/29/2022 09/27/2022 1 1 Reason Comments Orders Mailed orders Reason Comments Telemedicine Follow Up Specialty Diagnoses / Procedures Referred By Contac t Referred To Contact Diagnoses Parkinson disease (HCC) Essential tremor Procedures PROVIDER ORDERED FOLLOW UP OFFICE/OUTPATIENT NEW HIGH MDM 60-74 MINUTES Marni Hudson MD [address] [address] Referral ID Status Reason Start Date Expiration Date Visits Requested Visits Authorized [id number] Pending Review PCP Requested Referral 02/15/2023 12/18/2023 1 1 Reason Comments Telemedicine Follow Up Reason Comments New Patient Reason Comments patient update on fall Reason Comments f/u Labs Reason Onset Date Comments Refill Request 09/11/2024 Reason Comments Follow Up 6 month follow up Reason Comments New Patient Ref; Dr oJnes for AB N Holter Reason Comments Follow Up 6 week follow up, c/ o chest pain Care Teams (unrecognized sec tion and content) Television Repairer Relationship Specialty Start Date End Date Felix Montelongo [address] [place] [address] PCP - General Unspecified 02/04/16 Anupama Feng DO Internal Medicine 12/29/12 Cali Still MD Primary Staff Physician Cardiology 02/07/19 Television Repairer Relationship Specialty Start Date End Date Felix Montelongo MD [address] [place] [address] PCP - General Unspecified 02/04/16 Anupama Feng, DO Internal Medicine 12/29/12 Cali Still MD Primary Staff Physician Cardiology 02/07/19 Television Repairer Relationship Specialty Start Date End Date Felix Montelongo MD [address] [facility], [place] [address] PCP - General Unspecified 02/04/16 Anupama Feng, DO Internal Medicine 12/29/12 Cali Still MD Primary Staff Physician Cardiology 02/07/19 Television Repairer Relationship Specialty Start Date End Date Felix Montelongo MD [address] [place] [address] PCP - General Unspecified 02/04/16 Anupama Feng, DO Internal Medicine 12/29/12 Cali Still MD [address] [place], [place] [address] Primary Staff Physician Cardiology 02/07/19 Television Repairer Relationship Specialty Start Date End Date Felix Montelongo MD [address] [place], [place] [address] PCP - General Unspecified 02/04/16 Anupama Feng, DO Internal Medicine 12/29/12 Cali Still MD [address] [place] [address] Primary Staff Physician Cardiology 02/07/19 Television Repairer Relationship Specialty Start Date End Date Felix Montelongo MD [address] [place] [address] PCP - General Unspecified 02/04/16 Anupama Feng DO Internal Medicine 12/29/12 Cali Still MD [address] [place] [address] Primary Staff Physician Cardiology 02/07/19 Television Repairer Relationship Specialty Start Date End Date Felix Montelongo MD [address] [place] [address] PCP - General Unspecified 02/04/16 Anupama Feng DO Internal Medicine 12/29/12 Cali Still MD [address] [place] [id number] Primary Staff Physician Cardiology 02/07/19 Television Repairer Relationship Specialty Start Date End Date Felix Montelongo MD [address] [place] [address] PCP - General Unspecified 02/04/16 Anupama Feng DO Internal Medicine 12/29/12 Cali Still MD [address] [place] [address] Primary Staff Physician Cardiology 02/07/19 Team Status: Active Member Role Status Dates Dr. Barrett Avalos MD Family Provider Active Dr. Felix Montelongo MD Primary Care Provider Active Team Status: Inactive Member Role Status Dates Dr. Felix Montelongo MD Primary Care Provider Active RUDDY ANGLIN Attending Provider, Referring Provid er Active Television Repairer Relationship Specialty Start Date End Date Felix Montelongo MD [address] [place] [address] PCP - General Unspecified 02/04/16 Anupama Feng DO Internal Medicine 12/29/12 Cali Still MD [address] [place] [address] Primary Staff Physician Cardiology 02/07/19 Marni Hudson MD [address] [address] Specialty Analysis Reporting Developer Neurology 11/10/23 Television Repairer Relationship Specialty Start Date End Date Felix Montelongo MD [address] [place] [address] PCP - General Unspecified 02/04/16 Anupama Feng DO Internal Medicine 12/29/12 Cali Still MD [address] [place] [address] Primary Staff Physician Cardiology 02/07/19 Marni Hudson MD [address] [address] Specialty Analysis Reporting Developer Neurology 11/10/23 Television Repairer Relationship Specialty Start Date End Date Felix Montelongo MD [address] [place] [address] PCP - General Unspecified 02/04/16 Anupama Feng DO Internal Medicine 12/29/12 Cali Still MD [address] [place] [address] Primary Staff Physician Cardiology 02/07/19 Marni Hudson MD [address] [address] Specialty Analysis Reporting Developer Neurology 11/10/23 Television Repairer Relationship Specialty Start Date End Date Rocío Wagner PA-C [address] [place] [address] PCP - General Family Medicine 02/01/24 Anupama Feng DO Internal Medicine 12/29/12 Cali Still MD Primary Staff Physician Cardiology 02/07/19 Marni Hudson MD [address] [address] Specialty Analysis Reporting Developer Neurology 11/10/23 Television Repairer Relationship Specialty Start Date End Date Vincent Espinosa MD [address] [place] [address] PCP - General Internal Medicine 02/29/24 Anupama Feng DO Internal Medicine 12/29/12 Cali Still MD Primary Staff Physician Cardiology 02/07/19 Marni Hudson MD [address] [address] Specialty Analysis Reporting Developer Neurology 11/10/23 Television Repairer Relationship Specialty Start Date End Date Vincent Espinosa MD [address] [place] [address] PCP - General Internal Medicine 02/29/24 Anupama Feng DO Internal Medicine 12/29/12 Cali Still MD Primary Staff Physician Cardiology 02/07/19 Marni Hudson MD [address] [address] Specialty Analysis Reporting Developer Neurology 11/10/23 Rocío Wagner PA-C [address] [place] [address] Pipe Fitter [employer] [facility] 10/29/24 Sheela Cochran APRN.HEALTH EDUCATION COORDINATOR [address] [place] [address] Pipe Fitter [facility] 10/29/24 Janine Daugherty PA-C [address] [place] [address] Pipe Fitter [employer] [facility] 10/29/24 Television Repairer Relationship Specialty Start Date End Date Vincent Espinosa MD [address] [place], [place] [address] PCP - General Internal Medicine 02/29/24 Anupama Feng DO Internal Medicine 12/29/12 Cali Still MD Primary Staff Physician Cardiology 02/07/19 Marni Hudson MD [address] [address] Specialty Analysis Reporting Developer Neurology 11/10/23 Rocío Wagner PA-C [address] [place] [address] [facility] 10/29/24 Sheela Cochran APRN.HEALTH EDUCATION COORDINATOR [address] [place] [address] Pipe [employer] [facility] 10/29/24 Janine Daugherty PA-C [address] [place] [address] Pipe Fitter [facility] 10/29/24 Team Status: Inactive Member Role Status Dates Dr. Felix Montelongo MD Primary Care Provider Active Start: October 27, 2024 End: November 01, 2024 Dr. Velasquez Morales DO Emergency Provider Activ e Start: October 27, 2024 End: November 01, 2024 Dr. Sulma Romero MD Admit Provider Active Star t: October 27, 2024 End: November 01, 2024 Dr. Sulma Romero MD Other Provider Active Star t: October 27, 2024 End: November 01, 2024 Dr. Sung Rhodes , Attending Provider Active Start: October 27, 2024 End: November 01, 2024 Dr. Roderick Laurent DO Other Provider Active S tart: October 27, [...] Start: October 28, 2024 Dr. Velasquez Morales DO Emergency Provider Activ e Start: October 28, 2024 Dr. Sulma Romero MD Admit Provider Active Star t: October 28, 2024 Dr. Sulma Romero MD Other Provider Active Star t: October 28, 2024 Dr. Roderick Laurent DO Attending Provider Active Start: October 28, 2024 Dr. Roderick Laurent DO Other Provider Active S tart: October 28, 2024 Team Status: Active Member Role Status Dates Dr. Felix Montelongo MD Primary Care Provider Active Start: October 29, 2024 Dr. Velasquez Morales DO Emergency Provider Activ e Start: October 29, 2024 Dr. Sulma Romero MD Admit Provider Active Star t: October 29, 2024 Dr. Sulma Romero MD Other Provider Active Star t: October 29, 2024 Dr. Roderick Laurent DO Attending Provider Active Start: October 29, 2024 Dr. Roderick Tereletsky , DO Other Provider Active S tart: October 29, 2024 Team Status: Active Member Role Status Dates Dr. Fleix Montelongo MD Primary Care Provider Active Start: [...] Start: October 31, 2024 Dr. Velasquez Morales , DO Emergency Provider Activ e Start: October 31, 2024 Dr. Sulma Romero MD Admit Provider Active Star t: October 31, 2024 Dr. Sulma Romero MD Other Provider Active Star t: October 31, 2024 Dr. Sung Rhodes , DO Attending Provider Active Start: October 31, 2024 Dr. Sung Rhodes , DO Other [...] t: November 01, 2024 Dr. Sung Rhodes , DO Attending Provider Active Start: November 01, 2024 Dr. Sung Rhodes , DO Other Provider Active Star t: November 01, 2024 Dr. Roderick Laurent , DO Other Provider Active S tart: November 01, 2024 Team Status: Inactive Member Role Status Dates Dr. Felix Montelongo MD Primary Care Provider Active Start: November 02, 2024 End: November 02, 2024 Abeba Peacock NP, BEHAVIORAL SCIENCES INSTRUCTOR-C Attending Provider Active Start: November 02, 2024 [...] 2024 End: November 30, 2024 Dr. Felix Monetlongo MD Referring Provider Active S tart: November 30, 2024 End: November 30, 2024 Dr. Margie Gray MD Attending Provider Active Start: November 30, 2024 End: November 30, 2024 Team Status: Inactive Member Role Status Dates Dr. Felix Montelongo MD Primary Care Provider Active Start: December 04, 2024 End: December 04, 2024 Abeba Peacock BEHAVIORAL SCIENCES INSTRUCTOR, BEHAVIORAL SCIENCES INSTRUCTOR-C Attending Provider Active Start: December 04, 2024 [...] 2024 End: December 21, 2024 Abeba Peacock NP, BEHAVIORAL SCIENCES INSTRUCTOR-C Attending Provider Active Start: December 21, 2024 [...] 2025 End: January 04, 2025 Abeba Peacock NP, BEHAVIORAL SCIENCES INSTRUCTOR-C Attending Provider Active Start: January 04, 2025 End: January 04, 2025 Team Status: Inactive Member Role Status Dates Dr. Felix Montelongo MD Primary Care Provider Active Start: January 31, 2025 End: January 31, 2025 Buzz ZHANG MD Attending Provider Active Start: January 31, 2025 End: January 31, 2025 Television Repairer Relationship Specialty Start Date End Date Vincent Espinosa MD [address] [place] [address] PCP - General Internal Medicine 02/29/24 Anupama Feng DO Internal Medicine 12/29/12 Cali Still MD Primary Staff Physician Cardiology 02/07/19 Mrani Hudson MD [address] [address] Specialty Analysis Reporting Developer Neurology 11/10/23 Sehela Cochran APRN.HEALTH EDUCATION COORDINATOR [address] [place], [place] [address] Pipe Fitter [facility] 10/29/24 Television Repairer Relationship Specialty Start Date End Date Vincent Espinosa MD [address] [place], [place] [id number] PCP - General Internal Medicine 02/29/24 Anupama Feng DO Internal Medicine 12/29/12 Cali Still MD Primary Staff Physician Cardiology 02/07/19 Marni Hudson MD [address] [id number] Specialty Analysis Reporting Developer Neurology 11/10/23 Sheela Cochran APRN.HEALTH EDUCATION COORDINATOR [address] [place], [place] [address] [facility] Internal Medicine 10/29/24 Team Status: Inactive Member [...] Status: Active Member Role Status Dates Dr. Feilx Montelongo MD Primary Care Provider Active Start: March 29, 2025 Buzz ZHANG MD Attending Provider Active Start: March 29, 2025 Team Status: Inactive Member Role Status Dates Dr. Felix Montelongo MD Primary Care Provider Active Start: February 26, 2025 End: February 26, 2025 Abeba Peacock NP, BEHAVIORAL SCIENCES INSTRUCTOR-C Attending Provider Active Start: February 26, 2025 [...] BE BASED ON THE PRIMARY CLINICAL RECORDS. [email or web address] provides no warranty or guarantee of the accuracy or completeness of information in this document.
--- OUTSIDE RECORDS SUMMARY | 2025-05-02 04:10 | XMS RPT_ITS | CCD ---
Author Organization [facility] CliniSywv Care Team Providers Care Crap Shooter Name Role Phone NICOLA PAYNE Unavailable Unavailable [...] Care Provider Dr. Felix Montelongo Referring Provider [phone] HELEN Durand Attending Provider Anupama Feng DO [...] Unavailable Bernard HILLIARD, Rocío L Unavailable Older MEDICAL ORDERLY.BLOCKER POLISHING, Sheela Unavailable Janine Daugherty PA-C Unavailable Jayda [...] Rainey MD Attending Provider Unavaila ble [place] QUALITY IMPROVEMENT MANAGER-C, Abeba Attending Provider Redd SHAW, Dr. Gerber Attending Provider King VALERIA, Dr. Preciado Attending Provider Jayda SHAW, Dr. [place] Primary Care Provider Buzz Rainey MD Attending Provider Unavaila ble [place] QUALITY IMPROVEMENT MANAGER-C, Abeba Attending Provider Jayda SHAW, Dr. [place] Referring Provider [phone] Cody Conleybe Attending Unavailabl e Jayda, Felix [...] e Jayda, Felix Primary Care Unavailable [place] QUALITY IMPROVEMENT MANAGER, Abeba Attending Unavailable Jayda, Felix Primary Care Unavailable [place] QUALITY IMPROVEMENT MANAGER, Abeba Attending Unavailable Jayda, Felix Primary Care Unavailable [place] QUALITY IMPROVEMENT MANAGER, Abeba Attending Unavailable Jayda, Felix Primary Care Unavailable Olemke Efewongbe Attending Unavailable Jayda, Felix Primary Care Unavailable [place] QUALITY IMPROVEMENT MANAGER, Abeba Attending Unavailable Jayda, Felix Primary Care Unavailable Margie Gary Attending Unavailable Jayda, Felix Primary Care Unavailable Jayda, Felix Referring Unavailable Jayda, Felix Primary Care Unavailable Cody Conleybe Attending Unavailabl lana [place] QUALITY IMPROVEMENT MANAGER, Rita Schwartz Attending Unavailabl e Jayda, Felix [...] e Jayda, Felix Primary Care Unavailable Durga QUALITY IMPROVEMENT MANAGER, Rita Schwartz Consulting Unavailabl e Jayda, Felix Primary Care Unavailable Durga QUALITY IMPROVEMENT MANAGER, Rita Schwartz Attending Unavailabl e Jayda, Felix [...] adverse reactions (disorder) [address] [facility] Repository (6 sources) Beta-Blockers (Beta-Adrenergi c Bloc; Translations: [Beta-Blockers (Beta-Adrenergi c Bloc] Allergy to substance 2 ANGIOEDEMA [facility] Medications Current Medications Medication Drug Class(es) Dates [...] Comment on above: Take 2 tablets by [facility] three times daily. cholecalciferol 0.025 mg oral [...] Comment on above: Take 1 tablet by [facility] once daily. DULoxetine 20 mg delayed release oral capsule (3 sources) Serotonin and Norepinephrine Reuptake Inhibitor Start: 07-06-20 End: 07-06-20 23 take 1 capsule by mouth once daily DULoxetine (CYMBALTA) 20 mg capsule Take 1 capsule by mouth once daily. 30 capsule 11 07/06/2022 12/18/2022 Discontinued Comment on above: Take 1 capsule by [facility] once daily. finasteride 5 mg oral tablet [...] Start: 05-15-2021 take 2 tablets by mo [facility] twice daily at mealtime Glimepiride 1 MG [...] Comment on above: Take 1 capsule by [facility] once daily. VIT B COMPLEX 100 COMBO [...] 05-03-2020 Blood-Glucose Meter (Accu-Chek Bettina Plus Meter) [facility] Active 0 .ROUTE .MEDSUPPLY 200 May 03, [...] Comment on above: Take 1 tablet by [facility] once daily. 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; Translations: [Coronary [...] X 8 Promus Synergy per DJN @ [facility]07/20/2018:JACQUELINE of mid nul[place] RPL branch, 3.0 X 16 Promus Synergy ; JACQUELINE of distal SVG to RCA, 2.5 X 20 Promus Synergy per DJN @ [facility] Nonspecific chest pain (12 sources) Chest [...] Auto (Unsp spec) [#/Vol] 0.83 10*3/uL 0.83-4.51 [facility] Absolute neutrophil countOrd ered By: Buzz Rainey on 03-29-2025 Neutrophils (Bld) [#/Vol] 2.7 10*3/uL 2.0-7.7 [facility] Anion gap in Serum or Plasma Ordered By: Buzz Rainey on 03-29-2025 Anion gap [Moles/Vol] 11 mmol/L 5-15 [facility] Automated lymphocyte count a s percentage of total leukocytesOrdered By: Buzz Rainey on 03-29-2025 Lymphocytes/100 WBC Auto (Unsp spec) 19.5 % 19-41 [facility] BUN/creatinine ratioOrdered By: Buzz Rainey on 03-29-2025 Urea nitrogen/Creatinine [Mass ratio] 30.3 mg/mg High 10-20 [facility] Basophil percentageOrdered B y: Buzz Rainey on 03-29-2025 Basophils/100 WBC (Bld) 0.7 % 0-1 [facility] Carbon dioxide, total [Moles /volume] in Central venous bloodOrdered By: Buzz Rainey on 03-29-2025 CO2 [Moles/Vol] 22.7 mmol/L 21.0-32.0 [facility] Chloride assayOrdered By: Alexandra Rainey on 03-29-2025 Chloride [Moles/Vol] 103 mmol/L 98-108 [facility] Eosinophil percentageOrdered By: Buzz Rainey on 03-29-2025 Eosinophils/100 WBC (Bld) 4.0 % 0-5 [facility] Erythrocyte distribution wid th ratioOrdered By: yumikomalta bendestrella Rainey on 03-29-2025 Erythrocyte distribution width (RBC) [Ratio] 12.0 % 11.6-14.6 [facility] Erythrocyte distribution wid th standard deviationOrdered By: Buzz Rainey on 03-29-2025 Erythrocyte distribution width (RBC) [Ratio] 43.5 fl 35.1-43.9 [facility] Glomerular filtration rate ( GFR) estimation/1.73 sq m using serum, plasma, or whole bOrdered By: Buzz Rainey on 03-29-2025 GFR/1.73 sq M.predicted among non-blacks MDRD (S/P/Bld) [Vol rate/Area] 57 mL/min/{1.73_m2} Low >60 [facility] Comment on above: mL/min/1.73m2 CKD-EP I Creatinine Equation (2020) Hematocrit Auto (Bld) [Volum e fraction]Ordered By: Buzz Rainey on 03-29-2025 Hematocrit (Bld) [Volume fraction] 35.5 % Low 40-54 [facility] Hemoglobin measurementOrdere d By: Buzz Rainey on 03-29-2025 Hemoglobin (Bld) [Mass/Vol] 12.1 g/dL Low 13.0-16.5 [facility] Immature granulocytes/100 WB C Auto (Bld)Ordered By: Buzz Rainey on 03-29-2025 Immature granulocytes/100 WBC (Bld) 0.000 % 0.0-0.9 [facility] Comment on above: IG% - Immature Granu locytes (promyelocytes, myelocytes and metamyelocytes) > 1% indicates that a LEFT SHIFT is Present. MCV (mean corpuscular volume ) determinationOrdered By: Buzz Rainey on 03-29-2025 MCV (RBC) [Entitic vol] 98.3 fL High 80-94 [facility] Mean corpuscular hemoglobin (MCH) determinationOrdered By: yumikomalta bendestrella Rainey on 03-29-2025 MCH (RBC) [Entitic mass] 33.5 pg High 27.0-32.0 [facility] Mean corpuscular hemoglobin concentration (MCHC) determinationOrdered By: yumikomalta bendestrella Rainey on 03-29-2025 MCHC (RBC) [Mass/Vol] 34.1 g/dL 32-36 [facility] Mean platelet volume determi nationOrdered By: Buzz Rainey on 03-29-2025 Platelet mean volume (Bld) [Entitic vol] 10.4 fL 6.2-12.0 [facility] Monocyte percentageOrdered B y: Buzz Rainey on 03-29-2025 Monocytes/100 WBC (Bld) 12.2 % High 0-10 [facility] Neutrophil percentageOrdered By: tamanna Rainey on 03-29-2025 Neutrophils/100 WBC (Bld) 63.6 % 47-70 [facility] Nucleated red blood cell per centageOrdered By: Buzz Rainey on 03-29-2025 Nucleated RBC/100 WBC (Bld) [Ratio] 0 % 0-5 [facility] Platelet countOrdered By: Alexandra Rainey on 03-29-2025 Platelets (Bld) [#/Vol] 182 10*3/uL 150-450 [facility] Potassium measurement (mass/ volume)Ordered By: Buzz Rainey on 03-29-2025 Potassium (Unsp spec) [Mass/Vol] 4.8 mmol/L 3.3-5.1 [facility] RBC Auto (Bld) [#/Vol]Ordere d By: Buzz Rainey on 03-29-2025 RBC (Bld) [#/Vol] 3.61 10*6/uL Low 4.6-6.2 [facility] Serum creatinine measurement (mass/volume)Ordered By: Buzz Rainey on 03-29-2025 Creatinine [Mass/Vol] 1.25 mg/dL High 0.70-1.20 [facility] Serum glucose measurement (m ass/volume)Ordered By: Buzz Rainey on 03-29-2025 Glucose [Mass/Vol] 269 mg/dL High 70-99 [facility] Serum or plasma calcium jesenia urement (mass/volume)Ordered By: Buzz Rainey on 03-29-2025 Calcium [Mass/Vol] 9.0 mg/dL 7.6-11.0 [facility] Serum or plasma urea nitroge n measurement (mass/volume)Ordered By: Buzz Rainey on 03-29-2025 Urea nitrogen [Mass/Vol] 38 mg/dL High 4-19 [facility] Sodium levelOrdered By: Otilia baileyjovan Redd on 03-29-2025 Sodium [Moles/Vol] 136 mmol/L 133-145 [facility] White blood cell (WBC) count Ordered By: Buzz Rainey on 03-29-2025 WBC (Bld) [#/Vol] 4.3 10*3/uL Low 4.4-11.0 [facility] CNOVon 2025 CNOV Office Visit (CARDWS ) FLEX KLINE ([id number]) 1940 M Date Time Provider Department 03/05/25 11:00 AM HARJINDER JONES During your visit today, we recorded the following information about you: Pulse Respiration Blood pressure Weight 82/minute 16/minute 138/60 81.6 kg Height 1.765 m Harjinder Jones MD 2025 12:16 PM Signed Harjinder Jones MD Interventional Cardiology [address] [place] [address] [phone] Chief Complaint Patient presents with: Follow Up: 6 week follow up, c/o chest pain HISTORY OF PRESENT ILLNESS: Mr. Kline is a 85 year old male seen in my office today for follow-up patient had a prior history of severe nulato coronary artery disease with prior history of [...] meals. FOL (more content not included)... Normal [facility] CNOVon 03-02-2025 CNOV Office Visit (AGCARDPOB) FLEX KLINE ([id number]) 1940 M Date Time Provider Department 03/02/25 10:20 AM KWAN ESTRELLA AGCARDPOKevon During your visit today, we recorded the following information about you: Pulse Blood pressure Weight 69/minute 113/63 81.6 kg Kwan Estrella MD 03/02/2025 11:18 AM Signed [facility] SECTION OF CARDIAC PACING and ELECTROPHYSIOLOGY OUTPATIENT VISIT DATE March 02, 2025 OUTPATIENT VISIT TYPE NEW PRIMARY CARE PHYSICIAN: Vincent Espinosa [address] [place] [address] REFERRING PHYSICIAN: Harjinder Jones [address], [address] [facility] [address] chief complaint on file. HISTORY OF PRESENT [...] currently a resident at [facility]. Had a recent UTI in 10/2024, still [...] fibrillation ECG 11/29/23 - SR 77 bpm VT 210 QRS 102 QT/c 364 411 PVC [...] rare (<1.0%). Isolated VEs were rare (<1.0%, 28299), VE Couplets were rare (<1.0%, 63), and [...] OFFICE )on 03-02-2025 .Sinus rhythm 68 bpm VT 264ms First degree AVB QRS 96ms QT/c 398/423ms nl Qrs morphology and early repol change in 2.3.aVF [facility] Absolute lymphocyte countOrd ered By: Buzz Rainey on 03-01-2025 Lymphocytes Auto (Unsp spec) [#/Vol] 0.88 10*3/uL 0.83-4.51 [facility] Absolute neutrophil countOrd ered By: Buzz Rainey on 03-01-2025 Neutrophils (Bld) [#/Vol] 4.2 10*3/uL 2.0-7.7 [facility] Anion gap in Serum or Plasma Ordered By: Buzz Rainey on 03-01-2025 Anion gap [Moles/Vol] 13 mmol/L 5-15 [facility] Automated lymphocyte count a s percentage of total leukocytesOrdered By: Buzz Rainey on 03-01-2025 Lymphocytes/100 WBC Auto (Unsp spec) 14.9 % Low 19-41 [facility] BUN/creatinine ratioOrdered By: Eftamanna De La Pazmklana on 03-01-2025 Urea nitrogen/Creatinine [Mass ratio] 37.1 mg/mg High 10-20 [facility] Basophil percentageOrdered B y: Buzz Brainmklana on 03-01-2025 Basophils/100 WBC (Bld) 0.7 % 0-1 [facility] Carbon dioxide, total [Moles /volume] in Central venous bloodOrdered By: Alexandratamanna De La Pazmklana on 03-01-2025 CO2 [Moles/Vol] 21.5 mmol/L 21.0-32.0 [facility] Chloride assayOrdered By: Alexandra kenestrella De La Pazmklana on 03-01-2025 Chloride [Moles/Vol] 104 mmol/L 98-108 [facility] Eosinophil percentageOrdered By: Alexandrayumikoarthur Brainmklana on 03-01-2025 Eosinophils/100 WBC (Bld) 3.7 % 0-5 [facility] Erythrocyte distribution wid th ratioOrdered By: Alexandrayumikoarthur Brainmklana on 03-01-2025 Erythrocyte distribution width (RBC) [Ratio] 11.9 % 11.6-14.6 [facility] Erythrocyte distribution wid th standard deviationOrdered By: yumikomalta bendestrella De La Pazmklana on 03-01-2025 Erythrocyte distribution width (RBC) [Ratio] 43.6 fl 35.1-43.9 [facility] Glomerular filtration rate ( GFR) estimation/1.73 sq m using serum, plasma, or whole bOrdered By: Alexandratamanna De La Pazmklana on 03-01-2025 GFR/1.73 sq M.predicted among non-blacks MDRD (S/P/Bld) [Vol rate/Area] 61 mL/min/{1.73_m2} >60 [facility] Comment on above: mL/min/1.73m2 CKD-EP I Creatinine Equation (2020) Hematocrit Auto (Bld) [Volum e fraction]Ordered By: Buzz Rainey on 03-01-2025 Hematocrit (Bld) [Volume fraction] 40.7 % 40-54 [facility] Hemoglobin measurementOrdere d By: Buzz Rainey on 03-01-2025 Hemoglobin (Bld) [Mass/Vol] 13.9 g/dL 13.0-16.5 [facility] Immature granulocytes/100 WB C Auto (Bld)Ordered By: Buzz Rainey on 03-01-2025 Immature granulocytes/100 WBC (Bld) 0.200 % 0.0-0.9 [facility] Comment on above: IG% - Immature Granu locytes (promyelocytes, myelocytes and metamyelocytes) > 1% indicates that a LEFT SHIFT is Present. MCV (mean corpuscular volume ) determinationOrdered By: Buzz Rainey on 03-01-2025 MCV (RBC) [Entitic vol] 99.5 fL High 80-94 [facility] Mean corpuscular hemoglobin (MCH) determinationOrdered By: Buzz Rainey on 03-01-2025 MCH (RBC) [Entitic mass] 34.0 pg High 27.0-32.0 [facility] Mean corpuscular hemoglobin concentration (MCHC) determinationOrdered By: Buzz Rainey on 03-01-2025 MCHC (RBC) [Mass/Vol] 34.2 g/dL 32-36 [facility] Mean platelet volume determi nationOrdered By: Buzz Rainey on 03-01-2025 Platelet mean volume (Bld) [Entitic vol] 10.4 fL 6.2-12.0 [facility] Monocyte percentageOrdered B y: Buzz Rainey on 03-01-2025 Monocytes/100 WBC (Bld) 8.5 % 0-10 [facility] Neutrophil percentageOrdered By: Buzz Rainey on 03-01-2025 Neutrophils/100 WBC (Bld) 72.0 % High 47-70 [facility] Nucleated red blood cell per centageOrdered By: Buzz Rainey on 03-01-2025 Nucleated RBC/100 WBC (Bld) [Ratio] 0 % 0-5 [facility] Platelet countOrdered By: Alexandra Rainey on 03-01-2025 Platelets (Bld) [#/Vol] 213 10*3/uL 150-450 [facility] Potassium measurement (mass/ volume)Ordered By: Buzz Raniey on 03-01-2025 Potassium (Unsp spec) [Mass/Vol] 4.5 mmol/L 3.3-5.1 [facility] RBC Auto (Bld) [#/Vol]Ordere d By: Buzz Rainey on 03-01-2025 RBC (Bld) [#/Vol] 4.09 10*6/uL Low 4.6-6.2 [facility] Serum creatinine measurement (mass/volume)Ordered By: Buzz Rainey on 03-01-2025 Creatinine [Mass/Vol] 1.19 mg/dL 0.70-1.20 [facility] Serum glucose measurement (m ass/volume)Ordered By: Buzz Rainey on 03-01-2025 Glucose [Mass/Vol] 152 mg/dL High 70-99 [facility] Serum or plasma calcium jesenia urement (mass/volume)Ordered By: Buzz Rainey on 03-01-2025 Calcium [Mass/Vol] 9.5 mg/dL 7.6-11.0 [facility] Serum or plasma urea nitroge n measurement (mass/volume)Ordered By: Buzz Rainey on 03-01-2025 Urea nitrogen [Mass/Vol] 44 mg/dL High 4-19 [facility] Sodium levelOrdered By: Otilia baileyjovan Redd on 03-01-2025 Sodium [Moles/Vol] 138 mmol/L 133-145 [facility] White blood cell (WBC) count Ordered By: Buzz Rainey on 03-01-2025 WBC (Bld) [#/Vol] 5.9 10*3/uL 4.4-11.0 [facility] Bilirubin Test strip Ql (U)O rdered By: Buzz Rainey on 02-28-2025 Bilirubin Ql (U) Negative Negative [facility] Ketones Test strip Ql (U)Ord ered By: Buzz Rainey on 02-28-2025 Ketones Ql (U) Negative Negative [facility] Nitrite Test strip Ql (U)Ord ered By: Buzz Rainey on 02-28-2025 Nitrite Ql (U) Negative Negative [facility] Protein Test strip Ql (U)Ord ered By: Buzz Rainey on 02-28-2025 Protein Ql (U) 15 mg/dl High Negative [facility] Urine clarityOrdered By: Franklin Rainey on 02-28-2025 Clarity (U) Clear Clear [facility] Urine color determinationOrd ered By: Buzz Rainey on 02-28-2025 Color (U) Straw Yellow [facility] Urine cultureOrdered By: Franklin Rainey on 02-28-2025 Bacteria identified Cx Nom (U) Positive Abnormal [facility] Urine glucose detectionOrder ed By: Buzz Rainey on 02-28-2025 Glucose Ql (U) 1000 mg/dl High Normal [facility] Urine leukocyte esterase det ection by dipstickOrdered By: Buzz Rainey on 02-28-2025 Leukocyte esterase Test strip Ql (U) 25 /ul High Negative [facility] Urine pHOrdered By: Mallorie Rainey on 02-28-2025 pH (U) 6.0 [pH] 5.0 - 8.0 [facility] Urine specific gravity measu rementOrdered By: Buzz Rainey on 02-28-2025 Specific gravity (U) [Rel density] 1.020 1.002-1.030 [facility] Urine urobilinogen measureme ntOrdered By: Buzz Rainey on 02-28-2025 Urobilinogen Ql (U) Normal mg/dl Normal [facility] Endocrinology Visit Reporton 02-27-2025 Endocrinology Visit Report [facility] 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 Normal [facility] Absolute lymphocyte countOrd ered By: Buzz Rainey on 01-31-2025 Lymphocytes Auto (Unsp spec) [#/Vol] 0.83 10*3/uL 0.83-4.51 [facility] Absolute neutrophil countOrd ered By: Buzz Rainey on 01-31-2025 Neutrophils (Bld) [#/Vol] 3.3 10*3/uL 2.0-7.7 [facility] Anion gap in Serum or Plasma Ordered By: Buzz Rainey on 01-31-2025 Anion gap [Moles/Vol] 14 mmol/L 5-15 [facility] Automated lymphocyte count a s percentage of total leukocytesOrdered By: Buzz Rainey on 01-31-2025 Lymphocytes/100 WBC Auto (Unsp spec) 16.0 % Low 19-41 [facility] BUN/creatinine ratioOrdered By: Buzz Rainey on 01-31-2025 Urea nitrogen/Creatinine [Mass ratio] 28.0 mg/mg High 10-20 [facility] Basophil percentageOrdered B y: Buzz Rainey on 01-31-2025 Basophils/100 WBC (Bld) 0.4 % 0-1 [facility] Bilirubin directOrdered By: Buzz Rainey on 01-31-2025 Bilirubin.direct [Mass/Vol] 0.22 mg/dL 0.00-0.30 [facility] Bilirubin, totalOrdered By: Buzz Rainey on 01-31-2025 Bilirubin [Mass/Vol] 0.47 mg/dL 0.00-1.30 [facility] Carbon dioxide, total [Moles /volume] in Central venous bloodOrdered By: Buzz Rainey on 01-31-2025 CO2 [Moles/Vol] 21.6 mmol/L 21.0-32.0 [facility] Chloride assayOrdered By: Alexandra Rianey on 01-31-2025 Chloride [Moles/Vol] 101 mmol/L 98-108 [facility] Eosinophil percentageOrdered By: Buzz De La Pazmklana on 01-31-2025 Eosinophils/100 WBC (Bld) 6.2 % High 0-5 [facility] Erythrocyte distribution wid th (RBC) [Ratio]Ordered By: Buzz De La Pazmklana on 01-31-2025 Erythrocyte distribution width (RBC) [Entitic vol] 45.0 fL High 35.1-43.9 [facility] Erythrocyte distribution wid th ratioOrdered By: Otiliaarthur De La Pazmklana on 01-31-2025 Erythrocyte distribution width (RBC) [Ratio] 12.1 % 11.6-14.6 [facility] Erythrocyte distribution wid th standard deviationOrdered By: Otiliamalta bendestrella De La Pazmklana on 01-31-2025 Erythrocyte distribution width (RBC) [Ratio] 45.0 fl High 35.1-43.9 [facility] GFR/1.73 sq M.predicted [place] g non-blacks MDRD (S/P/Bld) [Vol rate/Area]Ordered By: Buzz Rainey on 01-31-2025 Estimated GFR (MDRD) Non-Af Amer 49 Low >60 [facility] Comment on above: mL/min/1.73m2 CKD-EP I Creatinine Equation (2020) Glomerular filtration rate ( GFR) estimation/1.73 sq m using serum, plasma, or whole bOrdered By: Buzz Rainey on 01-31-2025 GFR/1.73 sq M.predicted among non-blacks MDRD (S/P/Bld) [Vol rate/Area] 49 mL/min/{1.73_m2} Low >60 [facility] Comment on above: mL/min/1.73m2 CKD-EP I Creatinine Equation (2020) Hematocrit Auto (Bld) [Volum e fraction]Ordered By: Buzz Rainey on 01-31-2025 Hematocrit (Bld) [Volume fraction] 39.9 % Low 40-54 [facility] Hemoglobin A1c percentageOrd ered By: Buzz Rainey on 01-31-2025 HbA1c (Bld) [Mass fraction] 7.9 % >5.7 [facility] Hemoglobin measurementOrdere d By: Buzz Rainey on 01-31-2025 Hemoglobin (Bld) [Mass/Vol] 13.8 g/dL 13.0-16.5 [facility] Immature granulocytes/100 WB C Auto (Bld)Ordered By: Buzz Rainey on 01-31-2025 Immature granulocytes/100 WBC (Bld) 0.200 % 0.0-0.9 [facility] Comment on above: IG% - Immature Granu locytes (promyelocytes, myelocytes and metamyelocytes) > 1% indicates that a LEFT SHIFT is Present. Laboratory - Chemistry and C hemistry - challengeOrdered By: Buzz Rainey on 01-31-2025 AST [Catalytic activity/Vol] 32 U/L <38 [facility] Lymphocytes Auto (Unsp spec) [#/Vol]Ordered By: Buzz Rainey on 01-31-2025 Lymphocytes (Bld) [#/Vol] 0.83 10*3/uL 0.83-4.51 [facility] Lymphocytes/100 WBC Auto (Un sp spec)Ordered By: Buzz Rainey on 01-31-2025 Lymphocytes/100 WBC (Bld) 16.0 % Low 19-41 [facility] MCV (mean corpuscular volume ) determinationOrdered By: Buzz Rainey on 01-31-2025 MCV (RBC) [Entitic vol] 99.8 fL High 80-94 [facility] Magnesium (Unsp spec) [Mass/ Vol]Ordered By: Buzz Rainey on 01-31-2025 Magnesium [Mass/Vol] 2.2 mg/dL 1.5-2.2 [facility] Magnesium measurement (mass/ volume)Ordered By: Buzz Rainey on 01-31-2025 Magnesium (Unsp spec) [Mass/Vol] 2.2 mg/dL 1.5-2.2 [facility] Mean corpuscular hemoglobin (MCH) determinationOrdered By: Buzz Rainey on 01-31-2025 MCH (RBC) [Entitic mass] 34.5 pg High 27.0-32.0 [facility] Mean corpuscular hemoglobin concentration (MCHC) determinationOrdered By: Buzz Rainey on 01-31-2025 MCHC (RBC) [Mass/Vol] 34.6 g/dL 32-36 [facility] Mean platelet volume determi nationOrdered By: Buzz Rainey on 01-31-2025 Platelet mean volume (Bld) [Entitic vol] 10.6 fL 6.2-12.0 [facility] Monocyte percentageOrdered B y: Buzz Rainey on 01-31-2025 Monocytes/100 WBC (Bld) 12.7 % High 0-10 [facility] Neutrophil percentageOrdered By: Buzz Rainey on 01-31-2025 Neutrophils/100 WBC (Bld) 64.5 % 47-70 [facility] Nucleated red blood cell per centageOrdered By: Buzz Rainey on 01-31-2025 Nucleated RBC/100 WBC (Bld) [Ratio] 0 % 0-5 [facility] Platelet countOrdered By: Alexandra Rainey on 01-31-2025 Platelets (Bld) [#/Vol] 218 10*3/uL 150-450 [facility] Potassium (Unsp spec) [Mass/ Vol]Ordered By: Buzz Rainey on 01-31-2025 Potassium [Moles/Vol] 5.3 mmol/L High 3.3-5.1 [facility] Potassium measurement (mass/ volume)Ordered By: Buzz Rainey on 01-31-2025 Potassium (Unsp spec) [Mass/Vol] 5.3 mmol/L High 3.3-5.1 [facility] RBC Auto (Bld) [#/Vol]Ordere d By: Buzz Rainey on 01-31-2025 RBC (Bld) [#/Vol] 4.00 10*6/uL Low 4.6-6.2 [facility] Serum creatinine measurement (mass/volume)Ordered By: Buzz Rainey on 01-31-2025 Creatinine [Mass/Vol] 1.43 mg/dL High 0.70-1.20 [facility] Serum globulin measurementOr dered By: Buzz Rainey on 01-31-2025 Globulin (S) [Mass/Vol] 2.8 g/dL 2.2-4.2 [facility] Serum glucose measurement (m ass/volume)Ordered By: Buzz Rainey on 01-31-2025 Glucose [Mass/Vol] 265 mg/dL High 70-99 [facility] Serum or plasma alanine nix otransferase (ALT) measurementOrdered By: Buzz Rainey on 01-31-2025 ALT [Catalytic activity/Vol] 35 U/L <47 [facility] Serum or plasma albumin jesenia urement (mass/volume)Ordered By: Buzz Rainey on 01-31-2025 Albumin [Mass/Vol] 4.3 g/dL 3.4-4.8 [facility] Serum or plasma alkaline radha sphatase measurementOrdered By: Buzz Rainey on 01-31-2025 ALP [Catalytic activity/Vol] 83 U/L 40-129 [facility] Serum or plasma calcium jesenia urement (mass/volume)Ordered By: Buzz Rainey on 01-31-2025 Calcium [Mass/Vol] 9.3 mg/dL 7.6-11.0 [facility] Serum or plasma urea nitroge n measurement (mass/volume)Ordered By: Buzz Rainey on 01-31-2025 Urea nitrogen [Mass/Vol] 40 mg/dL High 4-19 [facility] Sodium levelOrdered By: Otilia baileyjovan Redd on 01-31-2025 Sodium [Moles/Vol] 137 mmol/L 133-145 [facility] Total proteinOrdered By: Franklin Rainey on 01-31-2025 Protein [Mass/Vol] 7.1 g/dL 5.9-8.4 [facility] Vitamin D, 25-hydroxyOrdered By: Buzz Rainey on 01-31-2025 Vitamin D 25-Hydroxy 38.8 ng/mL 30-100 [facility] Comment on above: Vitamin D StatusDefi ciency: <20 ng/mL (50nmol/L)Insufficiency: 20-30 ng/mL (50-75 nmol/L)Sufficiency: 30-100 ng/mL (75-250 nmol/L)Toxicity: >100 ng/mL (>250 nmol/L) White blood cell (WBC) count Ordered By: Buzz Rainey on 01-31-2025 WBC (Bld) [#/Vol] 5.2 10*3/uL 4.4-11.0 [facility] CBC panel Auto (Bld)on 01-22 Erythrocyte distribution width (RBC) [Ratio] 12.4 % 11.5 - 15.0 % [facility] Hematocrit (Bld) [Volume fraction] 37.7 % Low 39.0 - 51.0 % [facility] Hemoglobin (Bld) [Mass/Vol] 12.8 g/dL Low 13.0 - 17.0 g/dL [facility] Interpretation and review of laboratory results Abnormal [facility] MCH (RBC) [Entitic mass] 33.3 pg 26.0 - 34.0 pg [facility] MCHC (RBC) [Mass/Vol] 34 g/dL 30.5 - 36.0 g/dL [facility] MCV (RBC) [Entitic vol] 98.2 fL 80.0 - 100.0 fL [facility] Nucleated RBC (Bld) [#/Vol] NINF [facility] Platelet mean volume (Bld) [Entitic vol] 9.4 fL 9.0 - 12.7 fL [facility] Platelets (Bld) [#/Vol] 216 10*3/uL [facility] RBC (Bld) [#/Vol] 3.84 10*6/uL Low 4.20 - 6.0 0 m/uL [facility] WBC (Bld) [#/Vol] 5.09 10*3/uL [facility] Erythrocyte distribution width (RBC) [Ratio] 12.4 % Normal 11.5-15.0 [facility] Comment on above: Order Comment: Speci men Type: BLOOD SPECIMEN Ordering Facility: [facility] Address: [address] [place] [address] Performed By: #### 5 8410-2 #### [facility] [id number] [address] [place] [id number] [place] [address] [place] Hematocrit (Bld) [Volume fraction] 37.7 % Low 39.0-51.0 [facility] Comment on above: Order Comment: Speci men Type: BLOOD SPECIMEN Ordering Facility: [facility] Address: [address] [place], [place] [address] Performed By: #### 5 8410-2 #### [facility] CLIA [id number] [address] [place] [address] [place] Hemoglobin (Bld) [Mass/Vol] 12.8 g/dL Low 13.0-17.0 [facility] Comment on above: Order Comment: Speci men Type: BLOOD SPECIMEN Ordering Facility: [facility] Address: [address] [place] [address] Performed By: #### 5 8410-2 #### [id number] [address] [place] [address] [place] MCH (RBC) [Entitic mass] 33.3 pg Normal 26.0-34.0 [facility] Comment on above: Order Comment: Speci men Type: BLOOD SPECIMEN Ordering Facility: [facility] Address: [address] [place] [address] Performed By: #### 5 8410-2 #### [facility] [id number] [address] [place] [address] [place] MCHC (RBC) [Mass/Vol] 34.0 g/dL Normal 30.5-36.0 [facility] Comment on above: Order Comment: Speci men Type: BLOOD SPECIMEN Ordering Facility: [facility] Address: [address] [place] [address] Performed By: #### 5 8410-2 #### [facility] [id number] [address] [place] [address] [place] MCV (RBC) [Entitic vol] 98.2 fL Normal 80.0-100.0 [facility] Comment on above: Order Comment: Speci men Type: BLOOD SPECIMEN Ordering Facility: [facility] Address: [address] [place] [address] Performed By: #### 5 8410-2 #### [facility] CLIA [id number] [address] [place] [address] [place] Nucleated RBC (Bld) [#/Vol] 10*3/uL Normal <0.01 [facility] Comment on above: Order Comment: Speci men Type: BLOOD SPECIMEN Ordering Facility: [facility] Address: [address] [place] [address] Performed By: #### 5 8410-2 #### [facility] CLIA [id number] [address] [place] [address] [place] Platelet mean volume (Bld) [Entitic vol] 9.4 fL Normal 9.0-12.7 [facility] Comment on above: Order Comment: Speci men Type: BLOOD SPECIMEN Ordering Facility: [facility] Address: [address] [place] [address] Performed By: #### 5 8410-2 #### [facility] CLIA [id number] [address] [place] [address] [place] Platelets (Bld) [#/Vol] 216 10*3/uL Normal 150-400 [facility] Comment on above: Order Comment: Speci men Type: BLOOD SPECIMEN Ordering Facility: [facility] Address: [address] [place] [address] Performed By: #### 5 8410-2 #### [facility] CLIA [id number] [address] [place] [address] [place] RBC (Bld) [#/Vol] 3.84 10*6/uL Low 4.20-6.00 [facility] Comment on above: Order Comment: Speci men Type: BLOOD SPECIMEN Ordering Facility: [facility] Address: [address] [place] [address] Performed By: #### 5 8410-2 #### [facility] CLIA [id number] [address] [place] [address] [place] WBC (Bld) [#/Vol] 5.09 10*3/uL Normal 3.70-11.00 [facility] Comment on above: Order Comment: Speci men Type: BLOOD SPECIMEN Ordering Facility: [facility] Address: [address] [place], [place] [address] [address] Performed By: #### 5 8410-2 #### [facility] CLIA [id number] [address] [place] [address] [place] CNOVon 01-22-2025 CNOV Office Visit (GONZALO ) FLEX KLINE ([id number]) 1940 M Date Time Provider Department 01/22/25 1:40 PM HARJINDER JONES During your visit today, we recorded the following information about you: Pulse Respiration Blood pressure Weight 91/minute 14/minute 156/70 79.8 kg Height 1.765 m Harjinder Jones MD 01/22/2025 2:39 PM Signed Harjinder Jones MD Interventional Cardiology [address] [place] [address] [phone] Chief Complaint Patient presents with: Follow Up: [...] inflammatory demyelinating polyneuropathy) (HCC) Coronary atherosclerosis Diabetes (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) Type II or unspecified type diabetes mellitus [...] Take one(1) (more content not included)... Normal [facility] Comprehensive metabolic 2000 panelOrdered By: Jasmina Young on 01-22-2025 Albumin [Mass/Vol] 4.1 g/dL 3.9 - 4.9 g/dL [facility] ALP [Catalytic activity/Vol] 76 U/L 38 - 113 U/L [facility] ALT [Catalytic activity/Vol] 20 U/L 10 - 54 U/L [facility] Anion gap [Moles/Vol] 9 mmol/L 8 - 15 mmol/L [facility] AST [Catalytic activity/Vol] 19 U/L 14 - 40 U/L [facility] Bilirubin [Mass/Vol] 0.6 mg/dL 0.2 - 1 .3 mg/dL [facility] Calcium [Mass/Vol] 9.3 mg/dL 8.5 - 10. 2 mg/dL [facility] Chloride [Moles/Vol] 103 mmol/L 98 - 10 7 mmol/L [facility] CO2 [Moles/Vol] 27 mmol/L 22 - 30 mmol/L [facility] Creatinine [Mass/Vol] 1.32 mg/dL High 0.73 - 1.22 mg/dL [facility] GFR/1.73 sq M.predicted among non-blacks MDRD (S/P/Bld) [Vol rate/Area] 54 mL/min/{1.73_m2} Low - PINF [facility] Comment on above: Estimated Glomerular Filtration [...] 171 mg/dL High 74 - 99 mg/dL [facility] Comment on above: The [place] Diab[employer] s Association (ADA) provides guidance for [...] Standards of Medical Care in Diabetes 2016, [place] [employer] Association. Diabetes Care. 2016.39(Suppl 1). Interpretation and review of laboratory results Abnormal [facility] Potassium [Moles/Vol] 5.1 mmol/L 3.7 - 5.1 mmol/L [facility] Protein [Mass/Vol] 6.7 g/dL 6.3 - 8.0 g/dL [facility] Sodium [Moles/Vol] 139 mmol/L 136 - 144 mmol/L [facility] Urea nitrogen [Mass/Vol] 30 mg/dL High 9 - 24 mg/dL [facility] Comprehensive metabolic 2000 panelon 01-22-2025 Albumin [Mass/Vol] 4.1 g/dL Normal 3.9-4.9 [facility] Comment on above: Order Comment: Speci men Type: BLOOD SPECIMEN Ordering Facility[facility] Address: [address] [place] [place] [id number] Performed By: #### 2 4323-8 #### [facility] CLIA [id number] [address] [place] [address] [place] ALP [Catalytic activity/Vol] 76 U/L Normal 38-113 [facility] Comment on above: Order Comment: Speci men Type: BLOOD SPECIMEN Ordering Facility: [facility] Address: [address] [place] [address] Performed By: #### 2 4323-8 #### [facility] CLIA [id number] [address] [place] [address] [place] ALT [Catalytic activity/Vol] 20 U/L Normal 10-54 [facility] Comment on above: Order Comment: Speci men Type: BLOOD SPECIMEN Ordering Facility: [facility] Address: [address] [place] [address] Performed By: #### 2 4323-8 #### [facility] CLIA [id number] [address] [place] [address] [place] Anion gap [Moles/Vol] 9 mmol/L Normal 8-15 [facility] Comment on above: Order Comment: Speci men Type: BLOOD SPECIMEN Ordering Facility: [facility] Address: [facility] [place] [address] Performed By: #### 2 4323-8 #### [facility] CLIA [id number] [address] [place] [address] [place] AST [Catalytic activity/Vol] 19 U/L Normal 14-40 [facility] Comment on above: Order Comment: Speci men Type: BLOOD SPECIMEN Ordering Facility[facility] Address: [address] [facility] [address] Performed By: #### 2 4323-8 #### [facility] CLIA [id number] [address] [place] [address] [place] Bilirubin [Mass/Vol] 0.6 mg/dL Normal 0.2-1.3 [facility] Comment on above: Order Comment: Speci men Type: BLOOD SPECIMEN Ordering Facility: [facility] Address: [address] [place] [address] Performed By: #### 2 4323-8 #### [facility] CLIA [id number] [address] [place] [address] [place] Calcium [Mass/Vol] 9.3 mg/dL Normal 8.5-10.2 [facility] Comment on above: Order Comment: Speci men Type: BLOOD SPECIMEN Ordering Facility: [facility] Address: [address] [place] [address] Performed By: #### 2 4323-8 #### [facility] CLIA [id number] [address] [place] [address] [place] Chloride [Moles/Vol] 103 mmol/L Normal 98-107 [facility] Comment on above: Order Comment: Speci men Type: BLOOD SPECIMEN Ordering Facility: [facility] Address: [address] [place] [address] Performed By: #### 2 4323-8 #### [facility] CLIA [id number] [address] [place] [address] [place] CO2 [Moles/Vol] 27 mmol/L Normal 22-30 [facility] Comment on above: Order Comment: Speci men Type: BLOOD SPECIMEN Ordering Facility: [facility] Address: [address] [place] [address] Performed By: #### 2 4323-8 #### [facility] CLIA [id number] [address] [place] [address] [place] Creatinine [Mass/Vol] 1.32 mg/dL High 0.73-1.22 [facility] Comment on above: Order Comment: Speci men Type: BLOOD SPECIMEN Ordering Facility: [facility] Address: [address] [place] [address] Performed By: #### 2 4323-8 #### [facility] CLIA [id number] [address] [place] [address] [place] Creatinine and Glomerular filtration rate.predicted panel (S/P/Bld) 54 mL/min/1.73m??? Low >=60 [facility] Comment on above: Order Comment: Krystyna funk Type: BLOOD SPECIMEN Ordering Facility: [facility] Address: [address] [place] [address] Result Comment: Beatrice mated Glomerular Filtration Rate [...] GFR. Performed By: #### 2 4323-8 #### [id number] [address] [place] [address] [place] Glucose [Mass/Vol] 171 mg/dL High 74-99 [facility] Comment on above: Order Comment: Krystyna funk Type: BLOOD SPECIMEN Ordering Facility: [facility] Address: [address] [place] [address] Result Comment: The [place] Diabetes Association (ADA) provides guidance for cutoff [...] Standards of Medical Care in Diabetes 2016, [place] [employer] Association. Diabetes Care. 2016.39(Suppl 1). Performed By: #### 2 4323-8 #### [facility] [id number] [address] [place] [address] [place] Potassium [Moles/Vol] 5.1 mmol/L Normal 3.7-5.1 [facility] Comment on above: Order Comment: Speci men Type: BLOOD SPECIMEN Ordering Facility: [facility] Address: [address] [place], [place] [address] Performed By: #### 2 4323-8 #### [facility] CLIA [id number] [address] [place] [address] [place] Protein [Mass/Vol] 6.7 g/dL Normal 6.3-8.0 [facility] Comment on above: Order Comment: Speci men Type: BLOOD SPECIMEN Ordering Facility[facility] Address: [address] [place] [address] Performed By: #### 2 4323-8 #### [facility] [id number] [address] [place] [address] [place] Sodium [Moles/Vol] 139 mmol/L Normal 136-144 [facility] Comment on above: Order Comment: Speci men Type: BLOOD SPECIMEN Ordering Facility[facility] Address: [address] [place] [address] Performed By: #### 2 4323-8 #### [facility] [id number] [address] [place] [address] [place] Urea nitrogen [Mass/Vol] 30 mg/dL High 9-24 [facility] Comment on above: Order Comment: Speci men Type: BLOOD SPECIMEN Ordering Facility[facility] Address: [address] [place], [place] [address] Performed By: #### 2 4323-8 #### [facility] [id number] [address] [place] [address] [place] NT-proBNP [facility] 01-22 Natriuretic peptide.B prohormone N-Terminal [Mass/Vol] 437 pg/mL Normal <450 [facility] Comment on above: Order Comment: Speci men Type: BLOOD SPECIMEN Ordering Facility[facility] Address: [facility] [place] [address] Performed By: #### 3 3762-6, 3016-3 #### [facility] CLIA [id number] [address] [place] [address] [place] TSH SerPl-aCncon 01-22-2025 TSH Qn 5.250 m[IU]/L High 0.270-4.200 [facility] Comment on above: Order Comment: Speci men Type: BLOOD SPECIMEN Ordering Facility[facility] Address: [facility] [place] [address] Performed By: #### 3 3762-6, 3016-3 #### [facility] CLIA [id number] [address] [place] Absolute lymphocyte countOrd ered By: Buzz Rainey on 01-04-2025 Lymphocytes Auto (Unsp spec) [#/Vol] 0.86 10*3/uL 0.83-4.51 [facility] Absolute neutrophil countOrd ered By: Buzz Rainey on 01-04-2025 Neutrophils (Bld) [#/Vol] 2.9 10*3/uL 2.0-7.7 [facility] Automated lymphocyte count a s percentage of total leukocytesOrdered By: Buzz Rainey on 01-04-2025 Lymphocytes/100 WBC Auto (Unsp spec) 17.8 % Low 19-41 [facility] Basophil percentageOrdered B y: Buzz Rainey on 01-04-2025 Basophils/100 WBC (Bld) 0.6 % 0-1 [facility] Blood urea nitrogen (BUN)/cr eatinine ratioOrdered By: Buzz Rainey on 01-04-2025 Urea nitrogen/Creatinine [Mass ratio] 19.2 mg/mg 10-20 [facility] Carbon dioxide measurementOr dered By: Buzz Rainey on 01-04-2025 CO2 [Moles/Vol] 30.0 mmol/L 21.0-32.0 [facility] Chloride measurementOrdered By: Buzz Rainey on 01-04-2025 Chloride [Moles/Vol] 107 mmol/L 98-107 [facility] Eosinophil percentageOrdered By: Buzz Rainey on 01-04-2025 Eosinophils/100 WBC (Bld) 7.7 % High 0-5 [facility] Erythrocyte distribution wid th (RBC) [Ratio]Ordered By: Buzz Rainey on 01-04-2025 Erythrocyte distribution width (RBC) [Entitic vol] 46.5 fL High 35.1-43.9 [facility] Erythrocyte distribution wid th ratioOrdered By: Buzz Rainey on 01-04-2025 Erythrocyte distribution width (RBC) [Ratio] 12.4 % 11.6-14.6 [facility] Erythrocyte distribution wid th standard deviationOrdered By: Buzz Rainey on 01-04-2025 Erythrocyte distribution width (RBC) [Ratio] 46.5 fl High 35.1-43.9 [facility] Estimated glomerular filtrat ion rate (GFR) AmericanOrdered By: Buzz Rainey on 01-04-2025 Estimated GFR (MDRD) Amer 57 mL/min Low >60 [facility] Comment on above: GFR Calc Glomerular filtration rate ( GFR) estimationOrdered By: Buzz Rainey on 01-04-2025 Estimated GFR (MDRD) Non-Af Amer 47 mL/min Low >60 [facility] Comment on above: Non- GFR Calc GFR/1.73 sq M.predicted among non-blacks MDRD (S/P/Bld) [Vol rate/Area] 47 mL/min/{1.73_m2} Low >60 [facility] Comment on above: Non- GFR Calc Glucose measurementOrdered B y: Buzz Rainey on 01-04-2025 Glucose [Mass/Vol] 225 mg/dL High 74-106 [facility] Comment on above: Glucose result great er than or equal to 200 mg/dLsuggests DIABETES MELLITUS per A.D.A. criteria. Hematocrit Auto (Bld) [Volum e fraction]Ordered By: Buzz Rainey on 01-04-2025 Hematocrit (Bld) [Volume fraction] 39.9 % Low 40-54 [facility] Hemoglobin measurementOrdere d By: Alexandrayumikohueyestrella De La Pazmklana on 01-04-2025 Hemoglobin (Bld) [Mass/Vol] 13.1 g/dL 13.0-16.5 [facility] Immature granulocytes/100 WB C Auto (Bld)Ordered By: tamanna Rainey on 01-04-2025 Immature granulocytes/100 WBC (Bld) 0.200 % 0.0-0.9 [facility] Comment on above: IG% - Immature Granu locytes (promyelocytes, myelocytes and metamyelocytes) > 1% indicates that a LEFT SHIFT is Present. Lymphocytes Auto (Unsp spec) [#/Vol]Ordered By: Buzz Rainey on 01-04-2025 Lymphocytes (Bld) [#/Vol] 0.86 10*3/uL 0.83-4.51 [facility] Lymphocytes/100 WBC Auto (Un sp spec)Ordered By: Buzz Rainey on 01-04-2025 Lymphocytes/100 WBC (Bld) 17.8 % Low 19-41 [facility] MCV (mean corpuscular volume ) determinationOrdered By: Buzz Rainey on 01-04-2025 MCV (RBC) [Entitic vol] 101.0 fL High 80-94 [facility] Mean corpuscular hemoglobin (MCH) determinationOrdered By: tamanna Rainey on 01-04-2025 MCH (RBC) [Entitic mass] 33.2 pg High 27.0-32.0 [facility] Mean corpuscular hemoglobin concentration (MCHC) determinationOrdered By: tamanna Rainey on 01-04-2025 MCHC (RBC) [Mass/Vol] 32.8 g/dL 32-36 [facility] Mean platelet volume determi nationOrdered By: tamanna Rainey on 01-04-2025 Platelet mean volume (Bld) [Entitic vol] 10.0 fL 6.2-12.0 [facility] Monocyte percentageOrdered B y: Buzz Rainey on 02-13-2025 Monocytes/100 WBC (Bld) 12.8 % High 0-10 [facility] Neutrophil percentageOrdered By: Buzz Rainey on 01-04-2025 Neutrophils/100 WBC (Bld) 60.9 % 47-70 [facility] Nucleated red blood cell per centageOrdered By: Buzz Rainey on 01-04-2025 Nucleated RBC/100 WBC (Bld) [Ratio] 0 % 0-5 [facility] Platelet countOrdered By: Alexandra Rainey on 01-04-2025 Platelets (Bld) [#/Vol] 217 10*3/uL 150-450 [facility] Potassium measurementOrdered By: Buzz Rainey on 01-04-2025 Potassium [Moles/Vol] 4.5 mmol/L 3.5-5.1 [facility] Comment on above: Slight Hemolysis, Re sult may be falsely increased. RBC Auto (Bld) [#/Vol]Ordere d By: Buzz Rainey on 01-04-2025 RBC (Bld) [#/Vol] 3.95 10*6/uL Low 4.6-6.2 [facility] Serum anion gap measurementO rdered By: Buzz Rainey on 01-04-2025 Anion gap [Moles/Vol] 4 mmol/L Low 5-15 [facility] Serum or plasma calcium jesenia urement (mass/volume)Ordered By: Buzz Rainey on 01-04-2025 Calcium [Mass/Vol] 8.9 mg/dL 8.5-10.1 [facility] Serum or plasma creatinine m easurement (mass/volume)Ordered By: Buzz Rainey on 01-04-2025 Creatinine [Mass/Vol] 1.51 mg/dL High 0.70-1.30 [facility] Comment on above: The validity of the calculated GFR & GFRAA in patients over 70 years has not been determined. Clinical correlation is essential. Serum or plasma urea nitroge n measurement (mass/volume)Ordered By: Buzz Rainey on 01-04-2025 Urea nitrogen [Mass/Vol] 29 mg/dL High 7-18 [facility] Sodium levelOrdered By: Otilia Monreallana on 01-04-2025 Sodium [Moles/Vol] 141 mmol/L 136-145 [facility] White blood cell (WBC) count Ordered By: Buzz Rainey on 01-04-2025 WBC (Bld) [#/Vol] 4.8 10*3/uL 4.4-11.0 [facility] Absolute lymphocyte countOrd ered By: Buzz Rainey on 12-07-2024 Lymphocytes Auto (Unsp spec) [#/Vol] 1.34 10*3/uL 0.83-4.51 [facility] Absolute neutrophil countOrd ered By: Buzz Rainey on 12-07-2024 Neutrophils (Bld) [#/Vol] 3.2 10*3/uL 2.0-7.7 [facility] Automated lymphocyte count a s percentage of total leukocytesOrdered By: Alexandrayumikoarthur Brainlavelle on 12-07-2024 Lymphocytes/100 WBC Auto (Unsp spec) 24.8 % 19-41 [facility] Basophil percentageOrdered B y: Buzz Brainlavelle on 12-07-2024 Basophils/100 WBC (Bld) 0.6 % 0-1 [facility] Blood urea nitrogen (BUN)/cr eatinine ratioOrdered By: Alexandrayumikoarthur Brainmklana on 12-07-2024 Urea nitrogen/Creatinine [Mass ratio] 18.5 mg/mg 10-20 [facility] Carbon dioxide measurementOr dered By: Alexandrayumikoarthur Brainmklana on 12-07-2024 CO2 [Moles/Vol] 27.0 mmol/L 21.0-32.0 [facility] Chloride measurementOrdered By: Buzz De La Pazmklana on 12-07-2024 Chloride [Moles/Vol] 106 mmol/L 98-107 [facility] Eosinophil percentageOrdered By: Codyestrella De La Pazmklana on 12-07-2024 Eosinophils/100 WBC (Bld) 5.5 % High 0-5 [facility] Erythrocyte distribution wid th (RBC) [Ratio]Ordered By: Alexandrayumikohueyestrella De La Pazmklana on 12-07-2024 Erythrocyte distribution width (RBC) [Entitic vol] 46.2 fL High 35.1-43.9 [facility] Erythrocyte distribution wid th ratioOrdered By: Buzz Rainey on 12-07-2024 Erythrocyte distribution width (RBC) [Ratio] 12.3 % 11.6-14.6 [facility] Erythrocyte distribution wid th standard deviationOrdered By: Buzz Rainey on 12-07-2024 Erythrocyte distribution width (RBC) [Ratio] 46.2 fl High 35.1-43.9 [facility] Estimated glomerular filtrat ion rate (GFR) AmericanOrdered By: Buzz Rainey on 12-07-2024 Estimated GFR (MDRD) Amer 59 mL/min Low >60 [facility] Comment on above: GFR Calc Glomerular filtration rate ( GFR) estimationOrdered By: Buzz Rainey on 12-07-2024 Estimated GFR (MDRD) Non-Af Amer 49 mL/min Low >60 [facility] [place] Comment on above: Non- GFR Calc GFR/1.73 sq M.predicted among non-blacks MDRD (S/P/Bld) [Vol rate/Area] 49 mL/min/{1.73_m2} Low >60 [facility] [place] Comment on above: Non- GFR Calc Glucose measurementOrdered B y: Buzz Rainey on 12-07-2024 Glucose [Mass/Vol] 129 mg/dL High 74-106 [facility] Comment on above: Fasting Glucose resu lt greater than or equal to 126 mg/dL suggests DIABETES MELLITUS per A.D.A. criteria. Hematocrit Auto (Bld) [Volum e fraction]Ordered By: Buzz Rainey on 12-07-2024 Hematocrit (Bld) [Volume fraction] 40.6 % 40-54 [facility] [place] Hemoglobin measurementOrdere d By: Buzz Rainey on 12-07-2024 Hemoglobin (Bld) [Mass/Vol] 13.4 g/dL 13.0-16.5 [facility] [place] Immature granulocytes/100 WB C Auto (Bld)Ordered By: Buzz Rainey on 12-07-2024 Immature granulocytes/100 WBC (Bld) 0.200 % 0.0-0.9 [facility] [place] Comment on above: IG% - Immature Granu locytes (promyelocytes, myelocytes and metamyelocytes) > 1% indicates that a LEFT SHIFT is Present. Lymphocytes Auto (Unsp spec) [#/Vol]Ordered By: Buzz Rainey on 12-07-2024 Lymphocytes (Bld) [#/Vol] 1.34 10*3/uL 0.83-4.51 [facility] [place] Lymphocytes/100 WBC Auto (Un sp spec)Ordered By: Buzz Rainey on 12-07-2024 Lymphocytes/100 WBC (Bld) 24.8 % 19-41 [facility] [place] MCV (mean corpuscular volume ) determinationOrdered By: Buzz Rainey on 12-07-2024 MCV (RBC) [Entitic vol] 102.8 fL High 80-94 [facility] Mean corpuscular hemoglobin (MCH) determinationOrdered By: Buzz Rainey on 12-07-2024 MCH (RBC) [Entitic mass] 33.9 pg High 27.0-32.0 [facility] [place] Mean corpuscular hemoglobin concentration (MCHC) determinationOrdered By: tamanna Rainey on 12-07-2024 MCHC (RBC) [Mass/Vol] 33.0 g/dL 32-36 [facility] Mean platelet volume determi nationOrdered By: Buzz Rainey on 12-07-2024 Platelet mean volume (Bld) [Entitic vol] 10.0 fL 6.2-12.0 [facility] [place] Monocyte percentageOrdered B y: Buzz Rainey on 12-07-2024 Monocytes/100 WBC (Bld) 9.4 % 0-10 [facility] Neutrophil percentageOrdered By: tamanna Rainey on 12-07-2024 Neutrophils/100 WBC (Bld) 59.5 % 47-70 [facility] [place] Nucleated red blood cell per centageOrdered By: Buzz Rainey on 12-07-2024 Nucleated RBC/100 WBC (Bld) [Ratio] 0 % 0-5 [facility] [place] Platelet countOrdered By: Alexandra Rainey on 12-07-2024 Platelets (Bld) [#/Vol] 217 10*3/uL 150-450 [facility] [place] Potassium measurementOrdered By: Buzz Rainey on 12-07-2024 Potassium [Moles/Vol] 4.8 mmol/L 3.5-5.1 [facility] RBC Auto (Bld) [#/Vol]Ordere d By: Buzz Rainey on 12-07-2024 RBC (Bld) [#/Vol] 3.95 10*6/uL Low 4.6-6.2 [facility] Serum anion gap measurementO rdered By: Buzz Rainey on 12-07-2024 Anion gap [Moles/Vol] 5 mmol/L 5-15 [facility] Serum or plasma calcium jesenia urement (mass/volume)Ordered By: Buzz Rainey on 12-07-2024 Calcium [Mass/Vol] 9.1 mg/dL 8.5-10.1 [facility] Serum or plasma creatinine m easurement (mass/volume)Ordered By: Buzz Rainey on 12-07-2024 Creatinine [Mass/Vol] 1.46 mg/dL High 0.70-1.30 [facility] Comment on above: The validity of the calculated GFR & GFRAA in patients over 70 years has not been determined. Clinical correlation is essential. Serum or plasma urea nitroge n measurement (mass/volume)Ordered By: Buzz Rainey on 12-07-2024 Urea nitrogen [Mass/Vol] 27 mg/dL High 7-18 [facility] [place] Sodium levelOrdered By: Otilia Rainey on 12-07-2024 Sodium [Moles/Vol] 138 mmol/L 136-145 [facility] White blood cell (WBC) count Ordered By: Buzz Rainey on 12-07-2024 WBC (Bld) [#/Vol] 5.4 10*3/uL 4.4-11.0 [facility] Absolute lymphocyte countOrd ered By: Buzz Rainey on 11-30-2024 Lymphocytes Auto (Unsp spec) [#/Vol] 1.16 10*3/uL 0.83-4.51 [facility] [place] Absolute neutrophil countOrd ered By: Buzz Rainey on 11-30-2024 Neutrophils (Bld) [#/Vol] 2.8 10*3/uL 2.0-7.7 [facility] [place] Automated lymphocyte count a s percentage of total leukocytesOrdered By: Buzz Rainey on 11-30-2024 Lymphocytes/100 WBC Auto (Unsp spec) 23.3 % 19-41 [facility] [place] Basophil percentageOrdered B y: Buzz Rainey on 11-30-2024 Basophils/100 WBC (Bld) 0.6 % 0-1 [facility] Blood urea nitrogen (BUN)/cr eatinine ratioOrdered By: Otiliamalta bendestrella Rainey on 11-30-2024 Urea nitrogen/Creatinine [Mass ratio] 21.4 mg/mg High 10-20 [facility] [place] Carbon dioxide measurementOr dered By: Buzz Rainey on 11-30-2024 CO2 [Moles/Vol] 28.0 mmol/L 21.0-32.0 [facility] [place] Cardiology Visit Reporton Cardiology Visit Report [facility] [address] [place] [address] OFFICE VISIT Date of Service: 11/30/24 MR#: [id number] Acct: [id number] Name: FLEX KLINE Rep #: [id number] : 1940 Provider: Dr. 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 Normal [facility] [place] Chloride measurementOrdered By: Buzz Rainey on 11-30-2024 Chloride [Moles/Vol] 105 mmol/L 98-107 [facility] Eosinophil percentageOrdered By: Buzz Rainey on 11-30-2024 Eosinophils/100 WBC (Bld) 6.6 % High 0-5 [facility] [place] Erythrocyte distribution wid th (RBC) [Ratio]Ordered By: Buzz Rainey on 11-30-2024 Erythrocyte distribution width (RBC) [Entitic vol] 46.9 fL High 35.1-43.9 [facility] [place] Erythrocyte distribution wid th ratioOrdered By: tamanna Rainey on 11-30-2024 Erythrocyte distribution width (RBC) [Ratio] 12.4 % 11.6-14.6 [facility] [place] Erythrocyte distribution wid th standard deviationOrdered By: Buzz Rainey on 11-30-2024 Erythrocyte distribution width (RBC) [Ratio] 46.9 fl High 35.1-43.9 [facility] [place] Estimated glomerular filtrat ion rate (GFR) AmericanOrdered By: Buzz Rainey on 11-30-2024 Estimated GFR (MDRD) Amer 62 mL/min >60 [facility] [place] Comment on above: GFR Calc Glomerular filtration rate ( GFR) estimationOrdered By: Buzz Rainey on 11-30-2024 Estimated GFR (MDRD) Non-Af Amer 52 mL/min Low >60 [facility] [place] Comment on above: Non- GFR Calc GFR/1.73 sq M.predicted among non-blacks MDRD (S/P/Bld) [Vol rate/Area] 52 mL/min/{1.73_m2} Low >60 [facility] [place] Comment on above: Non- GFR Calc Glucose measurementOrdered B y: Buzz Rainey on 11-30-2024 Glucose [Mass/Vol] 119 mg/dL High 74-106 [facility] Comment on above: Fasting Glucose resu lt from 100 to 125 mg/dL suggests IMPAIRED HOMEOSTASIS per A.D.A. criteria. Hematocrit Auto (Bld) [Volum e fraction]Ordered By: Buzz Rainey on 11-30-2024 Hematocrit (Bld) [Volume fraction] 40.2 % 40-54 [facility] [place] Hemoglobin measurementOrdere d By: Buzz Rainey on 11-30-2024 Hemoglobin (Bld) [Mass/Vol] 13.2 g/dL 13.0-16.5 [facility] [place] Immature granulocytes/100 WB C Auto (Bld)Ordered By: Buzz Rainey on 11-30-2024 Immature granulocytes/100 WBC (Bld) 0.400 % 0.0-0.9 [facility] [place] Comment on above: IG% - Immature Granu locytes (promyelocytes, myelocytes and metamyelocytes) > 1% indicates that a LEFT SHIFT is Present. Lymphocytes Auto (Unsp spec) [#/Vol]Ordered By: Buzz Rainey on 11-30-2024 Lymphocytes (Bld) [#/Vol] 1.16 10*3/uL 0.83-4.51 [facility] [place] Lymphocytes/100 WBC Auto (Un sp spec)Ordered By: Buzz Rainey on 11-30-2024 Lymphocytes/100 WBC (Bld) 23.3 % 19-41 [facility] [place] MCV (mean corpuscular volume ) determinationOrdered By: Buzz Rainey on 11-30-2024 MCV (RBC) [Entitic vol] 103.1 fL High 80-94 [facility] Mean corpuscular hemoglobin (MCH) determinationOrdered By: yumikomalta bendestrella Rainey on 11-30-2024 MCH (RBC) [Entitic mass] 33.8 pg High 27.0-32.0 [facility] [place] Mean corpuscular hemoglobin concentration (MCHC) determinationOrdered By: Buzz Rainey on 11-30-2024 MCHC (RBC) [Mass/Vol] 32.8 g/dL 32-36 [facility] Mean platelet volume determi nationOrdered By: Buzz Rainey on 11-30-2024 Platelet mean volume (Bld) [Entitic vol] 10.2 fL 6.2-12.0 [facility] [place] Monocyte percentageOrdered B y: Buzz Rainey on 11-30-2024 Monocytes/100 WBC (Bld) 11.9 % High 0-10 [facility] Neutrophil percentageOrdered By: Buzz Rainey on 11-30-2024 Neutrophils/100 WBC (Bld) 57.2 % 47-70 [facility] [place] Nucleated red blood cell per centageOrdered By: Buzz Rainey on 11-30-2024 Nucleated RBC/100 WBC (Bld) [Ratio] 0 % 0-5 [facility] [place] Platelet countOrdered By: Alexandra Rainey on 11-30-2024 Platelets (Bld) [#/Vol] 212 10*3/uL 150-450 [facility] [place] Potassium measurementOrdered By: Buzz Rainey on 11-30-2024 Potassium [Moles/Vol] 4.4 mmol/L 3.5-5.1 [facility] RBC Auto (Bld) [#/Vol]Ordere d By: Buzz Rainey on 11-30-2024 RBC (Bld) [#/Vol] 3.90 10*6/uL Low 4.6-6.2 [facility] Serum anion gap measurementO rdered By: Buzz Rainey on 11-30-2024 Anion gap [Moles/Vol] 6 mmol/L 5-15 [facility] Serum or plasma calcium jesenia urement (mass/volume)Ordered By: Buzz Rainey on 11-30-2024 Calcium [Mass/Vol] 8.8 mg/dL 8.5-10.1 [facility] Serum or plasma creatinine m easurement (mass/volume)Ordered By: Buzz Rainey on 11-30-2024 Creatinine [Mass/Vol] 1.40 mg/dL High 0.70-1.30 [facility] Comment on above: The validity of the calculated GFR & GFRAA in patients over 70 years has not been determined. Clinical correlation is essential. Serum or plasma urea nitroge n measurement (mass/volume)Ordered By: Buzz Rainey on 11-30-2024 Urea nitrogen [Mass/Vol] 30 mg/dL High 7-18 [facility] [place] Sodium levelOrdered By: Otilia Rainey on 11-30-2024 Sodium [Moles/Vol] 139 mmol/L 136-145 [facility] White blood cell (WBC) count Ordered By: Buzz Rainey on 11-30-2024 WBC (Bld) [#/Vol] 5.0 10*3/uL 4.4-11.0 [facility] Absolute neutrophil countOrd ered By: Buzz Rainey on 11-23-2024 Neutrophils (Bld) [#/Vol] 3.4 10*3/uL 2.0-7.7 [facility] [place] Basophil percentageOrdered B y: Buzz Rainey on 11-23-2024 Basophils/100 WBC (Bld) 0.5 % 0-1 [facility] Blood urea nitrogen (BUN)/cr eatinine ratioOrdered By: Buzz Rainey on 11-23-2024 Urea nitrogen/Creatinine [Mass ratio] 19.8 mg/mg 10-20 [facility] [place] Carbon dioxide measurementOr dered By: Buzz Rainey on 11-23-2024 CO2 [Moles/Vol] 28.0 mmol/L 21.0-32.0 [facility] [place] Chloride measurementOrdered By: Buzz Rainey on 11-23-2024 Chloride [Moles/Vol] 104 mmol/L 98-107 [facility] Eosinophil percentageOrdered By: Buzz Rainey on 11-23-2024 Eosinophils/100 WBC (Bld) 6.0 % High 0-5 [facility] [place] Erythrocyte distribution wid th (RBC) [Ratio]Ordered By: Buzz Rainey on 11-23-2024 Erythrocyte distribution width (RBC) [Entitic vol] 43.7 fL 35.1-43.9 [facility] [place] Erythrocyte distribution wid th ratioOrdered By: Buzz Rainey on 11-23-2024 Erythrocyte distribution width (RBC) [Ratio] 11.9 % 11.6-14.6 [facility] [place] Estimated glomerular filtrat ion rate (GFR) AmericanOrdered By: Buzz Rainey on 11-23-2024 Estimated GFR (MDRD) Amer 67 mL/min >60 [facility] [place] Comment on above: GFR Calc Glomerular filtration rate ( GFR) estimationOrdered By: Buzz Rainey on 11-23-2024 Estimated GFR (MDRD) Non-Af Amer 56 mL/min Low >60 [facility] [place] Comment on above: Non- GFR Calc Glucose measurementOrdered B y: Buzz Rainey on 11-23-2024 Glucose [Mass/Vol] 119 mg/dL High 74-106 [facility] Comment on above: Fasting Glucose resu lt from 100 to 125 mg/dL suggests IMPAIRED HOMEOSTASIS per A.D.A. criteria. Hematocrit Auto (Bld) [Volum e fraction]Ordered By: Buzz Rainey on 11-23-2024 Hematocrit (Bld) [Volume fraction] 40.4 % 40-54 [facility] [place] Hemoglobin measurementOrdere d By: Buzz Rainey on 11-23-2024 Hemoglobin (Bld) [Mass/Vol] 13.8 g/dL 13.0-16.5 [facility] [place] Immature granulocytes/100 WB C Auto (Bld)Ordered By: Buzz Rainey on 11-23-2024 Immature granulocytes/100 WBC (Bld) 0.400 % 0.0-0.9 [facility] [place] Comment on above: IG% - Immature Granu locytes (promyelocytes, myelocytes and metamyelocytes) > 1% indicates that a LEFT SHIFT is Present. Lymphocytes Auto (Unsp spec) [#/Vol]Ordered By: Buzz Rainey on 11-23-2024 Lymphocytes (Bld) [#/Vol] 1.22 10*3/uL 0.83-4.51 [facility] [place] Lymphocytes/100 WBC Auto (Un sp spec)Ordered By: Buzz Rainey on 11-23-2024 Lymphocytes/100 WBC (Bld) 21.4 % 19-41 [facility] [place] MCV (mean corpuscular volume ) determinationOrdered By: Buzz Rainey on 11-23-2024 MCV (RBC) [Entitic vol] 99.5 fL High 80-94 [facility] Mean corpuscular hemoglobin (MCH) determinationOrdered By: Buzz Rainey on 11-23-2024 MCH (RBC) [Entitic mass] 34.0 pg High 27.0-32.0 [facility] [place] Mean corpuscular hemoglobin concentration (MCHC) determinationOrdered By: Buzz Rainey on 11-23-2024 MCHC (RBC) [Mass/Vol] 34.2 g/dL 32-36 [facility] Mean platelet volume determi nationOrdered By: Buzz Rainey on 11-23-2024 Platelet mean volume (Bld) [Entitic vol] 10.2 fL 6.2-12.0 [facility] [place] Monocyte percentageOrdered B y: Buzz Rainey on 11-23-2024 Monocytes/100 WBC (Bld) 12.4 % High 0-10 [facility] Neutrophil percentageOrdered By: Buzz Rainey on 11-23-2024 Neutrophils/100 WBC (Bld) 59.3 % 47-70 [facility] [place] Nucleated red blood cell per centageOrdered By: Buzz Rainey on 11-23-2024 Nucleated RBC/100 WBC (Bld) [Ratio] 0 % 0-5 [facility] [place] Platelet countOrdered By: Alexandra Rainey on 11-23-2024 Platelets (Bld) [#/Vol] 219 10*3/uL 150-450 [facility] [place] Potassium measurementOrdered By: Buzz Rainey on 11-23-2024 Potassium [Moles/Vol] 4.7 mmol/L 3.5-5.1 [facility] RBC Auto (Bld) [#/Vol]Ordere d By: Buzz Rainey on 11-23-2024 RBC (Bld) [#/Vol] 4.06 10*6/uL Low 4.6-6.2 [facility] Serum anion gap measurementO rdered By: Buzz Rainey on 11-23-2024 Anion gap [Moles/Vol] 5 mmol/L 5-15 [facility] Serum or plasma calcium jesenia urement (mass/volume)Ordered By: Buzz Rainey on 11-23-2024 Calcium [Mass/Vol] 9.2 mg/dL 8.5-10.1 [facility] Serum or plasma creatinine m easurement (mass/volume)Ordered By: Buzz Rainey on 11-23-2024 Creatinine [Mass/Vol] 1.31 mg/dL High 0.70-1.30 [facility] Comment on above: The validity of the calculated GFR & GFRAA in patients over 70 years has not been determined. Clinical correlation is essential. Serum or plasma urea nitroge n measurement (mass/volume)Ordered By: Buzz Rainey on 11-23-2024 Urea nitrogen [Mass/Vol] 26 mg/dL High 7-18 [facility] [place] Sodium levelOrdered By: Otilia gibson Brainmklana on 11-23-2024 Sodium [Moles/Vol] 136 mmol/L 136-145 [facility] White blood cell (WBC) count Ordered By: Buzz De La Pazmklana on 11-23-2024 WBC (Bld) [#/Vol] 5.7 10*3/uL 4.4-11.0 [facility] Absolute neutrophil countOrd ered By: Buzz De La Pazmklana on 11-16-2024 Neutrophils (Bld) [#/Vol] 3.9 10*3/uL 2.0-7.7 [facility] [place] Basophil percentageOrdered B y: Buzz Rainey on 11-16-2024 Basophils/100 WBC (Bld) 0.7 % 0-1 [facility] Blood urea nitrogen (BUN)/cr eatinine ratioOrdered By: Buzz De La Pazmklana on 11-16-2024 Urea nitrogen/Creatinine [Mass ratio] 18.8 mg/mg 10-20 [facility] [place] Carbon dioxide measurementOr dered By: Buzz Rainey on 11-16-2024 CO2 [Moles/Vol] 25.0 mmol/L 21.0-32.0 [facility] [place] Chloride measurementOrdered By: Buzz Rainey on 11-16-2024 Chloride [Moles/Vol] 105 mmol/L 98-107 [facility] Eosinophil percentageOrdered By: Buzz De La Pazmklana on 11-16-2024 Eosinophils/100 WBC (Bld) 6.1 % High 0-5 [facility] [place] Erythrocyte distribution wid th (RBC) [Ratio]Ordered By: Buzz Rainey on 11-16-2024 Erythrocyte distribution width (RBC) [Entitic vol] 43.8 fL 35.1-43.9 [facility] [place] Erythrocyte distribution wid th ratioOrdered By: tamanna Rainey on 11-16-2024 Erythrocyte distribution width (RBC) [Ratio] 11.9 % 11.6-14.6 [facility] [place] Estimated glomerular filtrat ion rate (GFR) AmericanOrdered By: Buzz Rainey on 11-16-2024 Estimated GFR (MDRD) Amer 56 mL/min Low >60 [facility] [place] Comment on above: GFR Calc Glomerular filtration rate ( GFR) estimationOrdered By: Buzz Rainey on 11-16-2024 Estimated GFR (MDRD) Non-Af Amer 46 mL/min Low >60 [facility] [place] Comment on above: Non- GFR Calc Glucose measurementOrdered B y: Bzuz Rainey on 11-16-2024 Glucose [Mass/Vol] 130 mg/dL High 74-106 [facility] Comment on above: Fasting Glucose resu lt greater than or equal to 126 mg/dL suggests DIABETES MELLITUS per A.D.A. criteria. Hematocrit Auto (Bld) [Volum e fraction]Ordered By: Buzz Rainey on 11-16-2024 Hematocrit (Bld) [Volume fraction] 37.6 % Low 40-54 [facility] [place] Hemoglobin measurementOrdere d By: Buzz Rainey on 11-16-2024 Hemoglobin (Bld) [Mass/Vol] 12.7 g/dL Low 13.0-16.5 [facility] [place] Immature granulocytes/100 WB C Auto (Bld)Ordered By: Buzz Rainey on 11-16-2024 Immature granulocytes/100 WBC (Bld) 0.200 % 0.0-0.9 [facility] [place] Comment on above: IG% - Immature Granu locytes (promyelocytes, myelocytes and metamyelocytes) > 1% indicates that a LEFT SHIFT is Present. Lymphocytes Auto (Unsp spec) [#/Vol]Ordered By: Buzz Rainey on 11-16-2024 Lymphocytes (Bld) [#/Vol] 1.20 10*3/uL 0.83-4.51 [facility] [place] Lymphocytes/100 WBC Auto (Un sp spec)Ordered By: Buzz Rainey on 11-16-2024 Lymphocytes/100 WBC (Bld) 19.8 % 19-41 [facility] [place] MCV (mean corpuscular volume ) determinationOrdered By: Buzz Rainey on 11-16-2024 MCV (RBC) [Entitic vol] 100.5 fL High 80-94 [facility] Mean corpuscular hemoglobin (MCH) determinationOrdered By: Buzz Rainey on 11-16-2024 MCH (RBC) [Entitic mass] 34.0 pg High 27.0-32.0 [facility] [place] Mean corpuscular hemoglobin concentration (MCHC) determinationOrdered By: Buzz Rainey on 11-16-2024 MCHC (RBC) [Mass/Vol] 33.8 g/dL 32-36 [facility] Mean platelet volume determi nationOrdered By: Buzz Rainey on 11-16-2024 Platelet mean volume (Bld) [Entitic vol] 10.0 fL 6.2-12.0 [facility] [place] Monocyte percentageOrdered B y: Buzz Rainey on 11-16-2024 Monocytes/100 WBC (Bld) 9.1 % 0-10 [facility] Neutrophil percentageOrdered By: Buzz Rainey on 11-16-2024 Neutrophils/100 WBC (Bld) 64.1 % 47-70 [facility] [place] Nucleated red blood cell per centageOrdered By: Buzz Rainey on 11-16-2024 Nucleated RBC/100 WBC (Bld) [Ratio] 0 % 0-5 [facility] [place] Platelet countOrdered By: Alexandra yumikoarthur Rainey on 11-16-2024 Platelets (Bld) [#/Vol] 210 10*3/uL 150-450 [facility] [place] Potassium measurementOrdered By: Buzz Rainey on 11-16-2024 Potassium [Moles/Vol] 4.9 mmol/L 3.5-5.1 [facility] Comment on above: Slight Hemolysis, Re sult may be falsely increased. RBC Auto (Bld) [#/Vol]Ordere d By: Buzz Rainey on 11-16-2024 RBC (Bld) [#/Vol] 3.74 10*6/uL Low 4.6-6.2 [facility] Serum anion gap measurementO rdered By: Buzz Rainey on 11-16-2024 Anion gap [Moles/Vol] 5 mmol/L 5-15 [facility] Serum or plasma calcium jesenia urement (mass/volume)Ordered By: Buzz Rainey on 11-16-2024 Calcium [Mass/Vol] 9.0 mg/dL 8.5-10.1 [facility] Serum or plasma creatinine m easurement (mass/volume)Ordered By: Buzz Rainey on 11-16-2024 Creatinine [Mass/Vol] 1.54 mg/dL High 0.70-1.30 [facility] Comment on above: The validity of the calculated GFR & GFRAA in patients over 70 years has not been determined. Clinical correlation is essential. Serum or plasma urea nitroge n measurement (mass/volume)Ordered By: Buzz Rainey on 11-16-2024 Urea nitrogen [Mass/Vol] 29 mg/dL High 7-18 [facility] [place] Sodium levelOrdered By: Otilia Rainey on 11-16-2024 Sodium [Moles/Vol] 135 mmol/L Low 136-145 [facility] White blood cell (WBC) count Ordered By: Buzz Rainey on 11-16-2024 WBC (Bld) [#/Vol] 6.1 10*3/uL 4.4-11.0 [facility] Absolute neutrophil countOrd ered By: Buzz Rainey on 11-09-2024 Neutrophils (Bld) [#/Vol] 3.1 10*3/uL 2.0-7.7 [facility] [place] Basophil percentageOrdered B y: Buzz Rainey on 11-09-2024 Basophils/100 WBC (Bld) 0.8 % 0-1 [facility] Blood urea nitrogen (BUN)/cr eatinine ratioOrdered By: Buzz Rainey on 11-09-2024 Urea nitrogen/Creatinine [Mass ratio] 21.8 mg/mg High 10-20 [facility] [place] Carbon dioxide measurementOr dered By: Buzz Rainey on 11-09-2024 CO2 [Moles/Vol] 27.0 mmol/L 21.0-32.0 [facility] [place] Chloride measurementOrdered By: Buzz Rainey on 11-09-2024 Chloride [Moles/Vol] 105 mmol/L 98-107 [facility] Eosinophil percentageOrdered By: Buzz Brainmklana on 11-09-2024 Eosinophils/100 WBC (Bld) 9.1 % High 0-5 [facility] [place] Erythrocyte distribution wid th (RBC) [Ratio]Ordered By: yumikomalta bendestrella De La Pazmklana on 11-09-2024 Erythrocyte distribution width (RBC) [Entitic vol] 43.2 fL 35.1-43.9 [facility] [place] Erythrocyte distribution wid th ratioOrdered By: [facility] De La Pazmklana on 11-09-2024 Erythrocyte distribution width (RBC) [Ratio] 11.8 % 11.6-14.6 [facility] [place] Estimated glomerular filtrat ion rate (GFR) AmericanOrdered By: Alexandratamanna Rainey on 11-09-2024 Estimated GFR (MDRD) Amer 72 mL/min >60 [facility] [place] Comment on above: GFR Calc Glomerular filtration rate ( GFR) estimationOrdered By: Buzz Rainey on 11-09-2024 Estimated GFR (MDRD) Non-Af Amer 59 mL/min Low >60 [facility] [place] Comment on above: Non- GFR Calc Glucose measurementOrdered B y: Alexandrayumikohueyestrella De La Pazmklana on 11-09-2024 Glucose [Mass/Vol] 145 mg/dL High 74-106 [facility] Comment on above: Fasting Glucose resu lt greater than or equal to 126 mg/dL suggests DIABETES MELLITUS per A.D.A. criteria. Hematocrit Auto (Bld) [Volum e fraction]Ordered By: Buzz Rainey on 11-09-2024 Hematocrit (Bld) [Volume fraction] 38.3 % Low 40-54 [facility] Hemoglobin measurementOrdere d By: Alexandrayumikohueyestrella De La Pazmklana on 11-09-2024 Hemoglobin (Bld) [Mass/Vol] 12.9 g/dL Low 13.0-16.5 [facility] Immature granulocytes/100 WB C Auto (Bld)Ordered By: Buzz Rainey on 11-09-2024 Immature granulocytes/100 WBC (Bld) 0.400 % 0.0-0.9 [facility] Comment on above: IG% - Immature Granu locytes (promyelocytes, myelocytes and metamyelocytes) > 1% indicates that a LEFT SHIFT is Present. Lymphocytes Auto (Unsp spec) [#/Vol]Ordered By: Buzz Rainey on 11-09-2024 Lymphocytes (Bld) [#/Vol] 1.10 10*3/uL 0.83-4.51 [facility] Lymphocytes/100 WBC Auto (Un sp spec)Ordered By: Buzz Rainey on 11-09-2024 Lymphocytes/100 WBC (Bld) 21.3 % 19-41 [facility] MCV (mean corpuscular volume ) determinationOrdered By: Buzz Rainey on 11-09-2024 MCV (RBC) [Entitic vol] 100.3 fL High 80-94 [facility] Mean corpuscular hemoglobin (MCH) determinationOrdered By: Buzz Rainey on 11-09-2024 MCH (RBC) [Entitic mass] 33.8 pg High 27.0-32.0 [facility] Mean corpuscular hemoglobin concentration (MCHC) determinationOrdered By: tamanna Rainey on 11-09-2024 MCHC (RBC) [Mass/Vol] 33.7 g/dL 32-36 [facility] Mean platelet volume determi nationOrdered By: Buzz Rainey on 11-09-2024 Platelet mean volume (Bld) [Entitic vol] 10.0 fL 6.2-12.0 [facility] Monocyte percentageOrdered B y: Buzz Rainey on 11-09-2024 Monocytes/100 WBC (Bld) 9.1 % 0-10 [facility] Neutrophil percentageOrdered By: tamanna Rainey on 11-09-2024 Neutrophils/100 WBC (Bld) 59.3 % 47-70 [facility] Nucleated red blood cell per centageOrdered By: Buzz Rainey on 11-09-2024 Nucleated RBC/100 WBC (Bld) [Ratio] 0 % 0-5 [facility] Platelet countOrdered By: Alexandra Rainey on 11-09-2024 Platelets (Bld) [#/Vol] 225 10*3/uL 150-450 [facility] Potassium measurementOrdered By: Buzz Rainey on 11-09-2024 Potassium [Moles/Vol] 4.5 mmol/L 3.5-5.1 [facility] RBC Auto (Bld) [#/Vol]Ordere d By: Buzz Rainey on 11-09-2024 RBC (Bld) [#/Vol] 3.82 10*6/uL Low 4.6-6.2 [facility] Serum anion gap measurementO rdered By: Buzz Rainey on 11-09-2024 Anion gap [Moles/Vol] 4 mmol/L Low 5-15 [facility] Serum or plasma calcium jesenia urement (mass/volume)Ordered By: Buzz Rainey on 11-09-2024 Calcium [Mass/Vol] 8.8 mg/dL 8.5-10.1 [facility] Serum or plasma creatinine m easurement (mass/volume)Ordered By: Buzz Rainey on 11-09-2024 Creatinine [Mass/Vol] 1.24 mg/dL 0.70-1.30 [facility] Comment on above: The validity of the calculated GFR & GFRAA in patients over 70 years has not been determined. Clinical correlation is essential. Serum or plasma urea nitroge n measurement (mass/volume)Ordered By: Buzz Rainey on 11-09-2024 Urea nitrogen [Mass/Vol] 27 mg/dL High 7-18 [facility] Sodium levelOrdered By: Otilia Rainey on 11-09-2024 Sodium [Moles/Vol] 136 mmol/L 136-145 [facility] White blood cell (WBC) count Ordered By: Buzz Rainey on 11-09-2024 WBC (Bld) [#/Vol] 5.2 10*3/uL 4.4-11.0 [facility] 13-AG-Xfcwvjg DOrdered By: Lana Rainey on 11-03-2024 Vitamin D 25-Hydroxy 37.4 ng/mL [facility] Comment on above: Vitamin D 25(OH) Sta tus Range Deficiency <20 ng/mL (50nmol/L) Insufficiency 20 - 30 ng/mL (50 - 75 nmol/L) Sufficiency 30 - 100 ng/mL (75 - 250 nmol/L) Toxicity >100 ng/mL (>250 nmol/L) Absolute neutrophil countOrd ered By: Buzz Rainey on 11-03-2024 Neutrophils (Bld) [#/Vol] 3.2 10*3/uL 2.0-7.7 [facility] Albumin to globulin ratioOrd ered By: Buzz Rainey on 11-03-2024 Albumin/Globulin [Mass ratio] 1.0 {ratio} 0.9-2.4 [facility] Basophil percentageOrdered B y: Buzz Rainey on 11-03-2024 Basophils/100 WBC (Bld) 0.4 % 0-1 [facility] Bilirubin, totalOrdered By: Buzz Rainey on 11-03-2024 Bilirubin [Mass/Vol] 0.80 mg/dL 0.20-1.00 [facility] Comment on above: For patients on eltr ombopag therapy, use of Dimension Elliott TBIL is not recommended. Blood urea nitrogen (BUN)/cr eatinine ratioOrdered By: Buzz Rainey on 11-03-2024 Urea nitrogen/Creatinine [Mass ratio] 24.5 mg/mg High 10-20 [facility] Carbon dioxide measurementOr dered By: Buzz Rainey on 11-03-2024 CO2 [Moles/Vol] 23.0 mmol/L 21.0-32.0 [facility] Chloride measurementOrdered By: Buzz Rainey on 11-03-2024 Chloride [Moles/Vol] 105 mmol/L 98-107 [facility] Eosinophil percentageOrdered By: Buzz Rainey on 11-03-2024 Eosinophils/100 WBC (Bld) 8.6 % High 0-5 [facility] Erythrocyte distribution wid th (RBC) [Ratio]Ordered By: Buzz Rainey on 11-03-2024 Erythrocyte distribution width (RBC) [Entitic vol] 44.9 fL High 35.1-43.9 [facility] Erythrocyte distribution wid th ratioOrdered By: Buzz Rainey on 11-03-2024 Erythrocyte distribution width (RBC) [Ratio] 12.0 % 11.6-14.6 [facility] Estimated glomerular filtrat ion rate (GFR) AmericanOrdered By: Buzz Rainey on 11-03-2024 Estimated GFR (MDRD) Amer 61 mL/min >60 [facility] Comment on above: GFR Calc Glomerular filtration rate ( GFR) estimationOrdered By: Buzz Rainey on 11-03-2024 Estimated GFR (MDRD) Non-Af Amer 50 mL/min Low >60 [facility] Comment on above: Non- GFR Calc Glucose measurementOrdered B y: Buzz Rainey on 11-03-2024 Glucose [Mass/Vol] 146 mg/dL High 74-106 [facility] Comment on above: Fasting Glucose resu lt greater than or equal to 126 mg/dL suggests DIABETES MELLITUS per A.D.A. criteria. Hematocrit Auto (Bld) [Volum e fraction]Ordered By: Buzz Rainey on 11-03-2024 Hematocrit (Bld) [Volume fraction] 43.0 % 40-54 [facility] Hemoglobin A1c percentageOrd ered By: Buzz Rainey on 11-03-2024 HbA1c (Bld) [Mass fraction] 6.6 % High 3.8-5.6 [facility] Comment on above: Normal < 5.7 % Predi abetic 5.7 - 6.4 % Diabetic >or= 6.5 % Please note range changes. Hemoglobin measurementOrdere d By: Buzz Rainey on 11-03-2024 Hemoglobin (Bld) [Mass/Vol] 14.7 g/dL 13.0-16.5 [facility] High density lipoprotein (HD L) measurementOrdered By: Buzz Rainey 11-03-2024 Cholesterol in HDL [Mass/Vol] 57 mg/dL >40 [facility] Comment on above: The drugs N-Acetylcy steine and Metamizole may falsely depress this assay. Reference Range HDL <40 mg/dL Low HDL Cholesterol HDL >or= 60 mg/dL High HDL Cholesterol Immature granulocytes/100 WB C Auto (Bld)Ordered By: Buzz Rainey on 11-03-2024 Immature granulocytes/100 WBC (Bld) 0.200 % 0.0-0.9 [facility] Comment on above: IG% - Immature Granu locytes (promyelocytes, myelocytes and metamyelocytes) > 1% indicates that a LEFT SHIFT is Present. Laboratory - Chemistry and C hemistry - challengeOrdered By: Buzz Rainey on 11-03-2024 AST [Catalytic activity/Vol] 41 U/L High 15-37 [facility] Low density lipoprotein (LDL ) cholesterol measurementOrdered By: Buzz Rainey on 11-03-2024 Cholesterol in LDL [Mass/Vol] 97 mg/dL 0-130 [facility] Lymphocytes Auto (Unsp spec) [#/Vol]Ordered By: Buzz Rainey on 11-03-2024 Lymphocytes (Bld) [#/Vol] 0.87 10*3/uL 0.83-4.51 [facility] Lymphocytes/100 WBC Auto (Un sp spec)Ordered By: Buzz Rainey on 11-03-2024 Lymphocytes/100 WBC (Bld) 17.4 % Low 19-41 [facility] MCV (mean corpuscular volume ) determinationOrdered By: Buzz Rainey on 11-03-2024 MCV (RBC) [Entitic vol] 101.2 fL High 80-94 [facility] Magnesium measurementOrdered By: Buzz Rainey on 11-03-2024 Magnesium [Mass/Vol] 2.2 mg/dL 1.6-2.6 [facility] Mean corpuscular hemoglobin (MCH) determinationOrdered By: Buzz Rainey on 11-03-2024 MCH (RBC) [Entitic mass] 34.6 pg High 27.0-32.0 [facility] Mean corpuscular hemoglobin concentration (MCHC) determinationOrdered By: Buzz Rainey on 11-03-2024 MCHC (RBC) [Mass/Vol] 34.2 g/dL 32-36 [facility] Mean platelet volume determi nationOrdered By: Buzz Rainey on 11-03-2024 Platelet mean volume (Bld) [Entitic vol] 9.9 fL 6.2-12.0 [facility] Monocyte percentageOrdered B y: Buzz Rainey on 11-03-2024 Monocytes/100 WBC (Bld) 10.4 % High 0-10 [facility] Neutrophil percentageOrdered By: Buzz Rainey on 11-03-2024 Neutrophils/100 WBC (Bld) 63.0 % 47-70 [facility] Nucleated red blood cell per centageOrdered By: Buzz Rainey on 11-03-2024 Nucleated RBC/100 WBC (Bld) [Ratio] 0 % 0-5 [facility] Platelet countOrdered By: Alexandra Rainey on 11-03-2024 Platelets (Bld) [#/Vol] 190 10*3/uL 150-450 [facility] Potassium measurementOrdered By: Buzz Rainey on 11-03-2024 Potassium [Moles/Vol] 5.0 mmol/L 3.5-5.1 [facility] RBC Auto (Bld) [#/Vol]Ordere d By: Buzz Rainey on 11-03-2024 RBC (Bld) [#/Vol] 4.25 10*6/uL Low 4.6-6.2 [facility] Serum anion gap measurementO rdered By: Buzz Rainey on 11-03-2024 Anion gap [Moles/Vol] 8 mmol/L 5-15 [facility] Serum globulin measurementOr dered By: Buzz Rainey on 11-03-2024 Globulin (S) [Mass/Vol] 3.8 g/dL 2.2-4.2 [facility] Serum or plasma alanine nix otransferase (ALT) measurementOrdered By: Buzz Rainey on 11-03-2024 ALT [Catalytic activity/Vol] 20 U/L 16-61 [facility] Serum or plasma albumin jesenia urement (mass/volume)Ordered By: Buzz Rainey on 11-03-2024 Albumin [Mass/Vol] 3.7 g/dL 3.2-5.0 [facility] Serum or plasma alkaline radha sphatase measurementOrdered By: Buzz Rainey on 11-03-2024 ALP [Catalytic activity/Vol] 77 U/L 45-117 [facility] Serum or plasma calcium jesenia urement (mass/volume)Ordered By: Buzz Rainey on 11-03-2024 Calcium [Mass/Vol] 9.3 mg/dL 8.5-10.1 [facility] Serum or plasma cholesterol measurement (mass/volume)Ordered By: Buzz Rainey on 11-03-2024 Cholesterol [Mass/Vol] 175 mg/dL <200 [facility] Comment on above: <200 mg/dL Desirable 200-240 mg/dL Borderline >240 mg/dL High Risk Serum or plasma creatinine m easurement (mass/volume)Ordered By: Buzz Rainey on 11-03-2024 Creatinine [Mass/Vol] 1.43 mg/dL High 0.70-1.30 [facility] Comment on above: The validity of the calculated GFR & GFRAA in patients over 70 years has not been determined. Clinical correlation is essential. Serum or plasma urea nitroge n measurement (mass/volume)Ordered By: Buzz Rainey on 11-03-2024 Urea nitrogen [Mass/Vol] 35 mg/dL High 7-18 [facility] Sodium levelOrdered By: Otilia Rainey on 11-03-2024 Sodium [Moles/Vol] 136 mmol/L 136-145 [facility] Total proteinOrdered By: Franklin Rainey on 11-03-2024 Protein [Mass/Vol] 7.5 g/dL 6.4-8.2 [facility] Triglycerides measurementOrd ered By: Buzz Rainey on 11-03-2024 Triglyceride [Mass/Vol] 105 mg/dL <199 [facility] Comment on above: The drugs N-Acetylcy steine and Metamizole may falsely depress this assay.Serum Triglycerides Reference Interval Normal <150 mg/dL Borderline high 150 - 199 mg/dL High 200 - 499 mg/dL Very High > or = 500 mg/dL Very low density lipoprotein (VLDL) cholesterol measurementOrdered By: Buzz Rainey 11-03-2024 VLDL Cholesterol 21 mg/dL 5-40 [facility] White blood cell (WBC) count Ordered By: Buzz Rainey on 11-03-2024 WBC (Bld) [#/Vol] 5.0 10*3/uL 4.4-11.0 [facility] Bedside Glucoseon 11-01-2024 FINGERSTICK GLU 163 mg/dL High 74-106 [facility] Comment on above: Result Comment: ARNOLD GEMENT OF PATIENT CARE PER NURSING PROTOCOL Performed By: #### L 501.080 ####[facility] [address] [facility] [address] FINGERSTICK GLU 212 mg/dL High [address] [place] [address] Comment on above: Result Comment: ARNOLD GEMENT OF PATIENT CARE PER NURSING PROTOCOL Performed By: #### L 501.080 #### [facility] [address] [facility] [address] FINGERSTICK GLU 125 mg/dL [address] Comment on above: Result Comment: ARNOLD GEMENT OF PATIENT CARE PER NURSING PROTOCOL Performed By: #### L 501.080 #### [facility] [address] [place], [address] [facility] deOrdered By: Sung Rhodes on 11-01-2024 Bedside Glucose (Misc Panel) 163 mg/dL High [facility]106 [facility] Comment on above: MANAGEMENT OF PATIEN T CARE PER NURSING PROTOCOL Bedside Glucoseon 10-31-2024 FINGERSTICK GLU 125 mg/dL High [facility]106 [facility] Comment on above: Result Comment: ARNOLD GEMENT OF PATIENT CARE PER NURSING PROTOCOL Performed By: #### L 501.080 #### [facility] [address] [facility] [address] FINGERSTICK GLU 136 mg/dL [address] Comment on above: Result Comment: ARNOLD GEMENT OF PATIENT CARE PER NURSING PROTOCOL Performed By: #### L 501.080 #### [facility] [address] [place], [address] FINGERSTICK GLU 207 mg/dL High 74-106 [facility] Comment on above: Result Comment: ARNOLD GEMENT OF PATIENT CARE PER NURSING PROTOCOL Performed By: #### L 501.080 ####[facility] [address] [place], [address] FINGERSTICK GLU 297 mg/dL High [facility]106 [facility] Comment on above: Result Comment: ARNOLD GEMENT OF PATIENT CARE PER NURSING PROTOCOL Performed By: #### L 501.080 ####[facility] [address] [place], [address] Bedside Glucoseon 10-30-2024 FINGERSTICK GLU 216 mg/dL High [address] [place] [address] Comment on above: Result Comment: ARNOLD GEMENT OF PATIENT CARE PER NURSING PROTOCOL Performed By: #### L 501.080 #### [facility] [address] [place], [address] FINGERSTICK GLU 256 mg/dL High [address] [place] [address] Comment on above: Result Comment: ARNOLD GEMENT OF PATIENT CARE PER NURSING PROTOCOL Performed By: #### L 501.080 ####[facility] [address] [place], [address] FINGERSTICK GLU 197 mg/dL High -[address] [place] [address] Comment on above: Result Comment: ARNOLD GEMENT OF PATIENT CARE PER NURSING PROTOCOL Performed By: #### L 501.080 ####[facility] [address] [place], [address] FINGERSTICK GLU 177 mg/dL High [address] [place] [address] Comment on above: Result Comment: ARNOLD GEMENT OF PATIENT CARE PER NURSING PROTOCOL Performed By: #### L 501.080 #### [facility] [address] [place], [address] FINGERSTICK GLU 188 mg/dL High [address] [place] [address] Comment on above: Result Comment: ARNOLD GEMENT OF PATIENT CARE PER NURSING PROTOCOL Performed By: #### L 501.080 #### [facility] [address] [place], [address] Absolute neutrophil countOrd ered By: Roderick Mehran on 10-29-2024 Neutrophils (Bld) [#/Vol] 3.8 10*3/uL 2.0-7.7 [facility] Albumin to globulin ratioOrd ered By: Roderick Laurent on 10-29-2024 Albumin/Globulin [Mass ratio] 1.2 {ratio} 0.9-2.4 [facility] Basophil percentageOrdered B y: Roderick Mehran on 10-29-2024 Basophils/100 WBC (Bld) 0.7 % 0-1 [facility] Bedside Glucoseon 10-29-2024 FINGERSTICK GLU 255 mg/dL High [address] [place] [address] Comment on above: Result Comment: ARNOLD GEMENT OF PATIENT CARE PER NURSING PROTOCOL Performed By: #### L 501.080 #### [facility] [address] [place], [address] FINGERSTICK GLU 214 mg/dL [address] Comment on above: Result Comment: ARNOLD GEMENT OF PATIENT CARE PER NURSING PROTOCOL Performed By: #### L 501.080 #### [facility] [address] [place], [address] FINGERSTICK GLU 189 mg/dL [address] Comment on above: Result Comment: ARNOLD GEMENT OF PATIENT CARE PER NURSING PROTOCOL Performed By: #### L 501.080 ####[facility] [address] [place], [address] FINGERSTICK GLU 161 mg/dL [address] Comment on above: Result Comment: ARNOLD GEMENT OF PATIENT CARE PER NURSING PROTOCOL Performed By: #### L 501.080 #### [facility] [address] [place], [address] FINGERSTICK GLU 198 mg/dL High 74-106 [facility] Comment on above: Result Comment: ARNOLD GEMENT OF PATIENT CARE PER NURSING PROTOCOL Performed By: #### L 501.080 #### [facility] [address] [place], [address] FINGERSTICK GLU 328 mg/dL High 74-106 [facility] Comment on above: Result Comment: ARNOLD GEMENT OF PATIENT CARE PER NURSING PROTOCOL Performed By: #### L 501.080 #### [facility] [address] [place], [address] Bilirubin, totalOrdered By: Roderick Laurent on 10-29-2024 Bilirubin [Mass/Vol] 0.60 mg/dL 0.20-1.00 [facility] Comment on above: For patients on eltr ombopag therapy, use of Dimension Elliott TBIL is not recommended. Blood urea nitrogen (BUN)/cr eatinine ratioOrdered By: Roderick Laurent on 10-29-2024 Urea nitrogen/Creatinine [Mass ratio] 23.6 mg/mg High 10-20 [facility] CBC W/Diff, Automatedon 12-0 Absolute Lymph 0.93 X10 3/uL Normal 0.83-4.51 [facility] Comment on above: Performed By: #### L 500.4050, L100.0100 ####[facility] [address] [place], [address] Absolute Neut 3.8 X10 3/uL Normal 2.0-7.7 [facility] Comment on above: Performed By: #### L [id number], L100.0100 ####[facility] [address] [place], [address] Basophils/100 WBC (Bld) 0.7 % Normal 0-1 [facility] Comment on above: Performed By: #### L [id number], L100.0100 ####[facility] [address] [place], [address] Eosinophils/100 WBC (Bld) 3.5 % Normal 0-5 [facility] Comment on above: Performed By: #### L [id number], L100.0100 ####[facility] [address] [place], [address] Erythrocyte distribution width (RBC) [Ratio] 11.9 % Normal 11.6-14.6 [facility] Comment on above: Performed By: #### L [id number], L100.0100 ####[facility] [address] [place], [address] Hematocrit (Bld) [Volume fraction] 40.5 % Normal 40-54 [facility] Comment on above: Performed By: #### L [id number], L100.0100 ####[facility] [address] [place], [address] Hemoglobin (Bld) [Mass/Vol] 13.6 g/dL Normal 13.0-16.5 [facility] Comment on above: Performed By: #### L 500.4050, L100.0100 ####[facility] [address] [place], [address] IG% 0.200 Normal 0.0-0.9 [facility] Comment on above: Result Comment: IG% - Immature Granulocytes (promyelocytes, myelocytes and metamyelocytes) > 1% indicates that a LEFT SHIFT is Present. Performed By: #### L [id number], L100.0100 ####[facility] [address] [place], [address] Lymphocytes/100 WBC (Bld) 16.2 % Low 19-41 [facility] Comment on above: Performed By: #### L 500.4050, L100.0100 ####[facility] [address] [place], [address] MCH (RBC) [Entitic mass] 33.8 pg High 27.0-32.0 [facility] Comment on above: Performed By: #### L 500.4050, L100.0100 ####[facility] [address] [place], [address] MCHC (RBC) [Mass/Vol] 33.6 g/dL Normal 32-36 [facility] Comment on above: Performed By: #### L 500.4050, L100.0100 ####[facility] [address] [place], [address] MCV (RBC) [Entitic vol] 100.7 fL High 80-94 [facility] Comment on above: Performed By: #### L 500.4050, L100.0100 ####[facility] [address] [place], [address] Monocytes/100 WBC (Bld) 12.5 % High 0-10 [facility] Comment on above: Performed By: #### L 500.4050, L100.0100 ####[facility] [address] [place], [address] Neutrophils/100 WBC (Bld) 66.9 % Normal 47-70 [facility] Comment on above: Performed By: #### L 500.4050, L100.0100 ####[facility] [address] [place], [address] Nucleated RBC (Bld) [#/Vol] 0 10*3/uL Normal 0-5 [facility] Comment on above: Performed By: #### L 500.4050, L100.0100 ####[facility] [address] [place], [address] Platelet mean volume (Bld) [Entitic vol] 9.2 fL Normal 6.2-12.0 [facility] Comment on above: Performed By: #### L 500.4050, L100.0100 ####[facility] [address] [place], [address] Platelets (Bld) [#/Vol] 230 10*3/uL Normal 150-450 [facility] Comment on above: Performed By: #### L 500.4050, L100.0100 ####[facility] [address] [place], [address] RBC (Bld) [#/Vol] 4.02 10*6/uL Low 4.6-6.2 [facility] Comment on above: Performed By: #### L 500.4050, L100.0100 ####[facility] [address] [place], [address] RDW SD 44.6 fl High 35.1-43.9 [facility] Comment on above: Performed By: #### L 500.4050, L100.0100 ####[facility] [address] [place], [address] WBC (Bld) [#/Vol] 5.7 10*3/uL Normal 4.4-11.0 [facility] Comment on above: Performed By: #### L 500.4050, L100.0100 ####[facility] [address] [place], [address] Carbon dioxide measurementOr dered By: Roderick Laurent on 10-29-2024 CO2 [Moles/Vol] 26.0 mmol/L 21.0-32.0 [facility] Chloride measurementOrdered By: Roderick Laurent on 10-29-2024 Chloride [Moles/Vol] 105 mmol/L 98-107 [facility] Comprehensive Metabolic Prof ilon 10-29-2024 Albumin [Mass/Vol] 3.5 g/dL Normal 3.2-5.0 [facility] Comment on above: Performed By: #### L 501.080 #### [facility] [address] [place], [address] Albumin/Globulin [Mass ratio] 1.2 {ratio} Normal 0.9-2.4 [facility] Comment on above: Performed By: #### L 501.080 #### [facility] [address] [place], [address] ALK P 64 U/L Normal 45-117 [facility] Comment on above: Performed By: #### L 501.080 #### [facility] [address] [place], [address] ALT [Catalytic activity/Vol] 15 U/L Low 16-61 [facility] Comment on above: Performed By: #### L 501.080 #### [facility] [address] [place], [address] AST [Catalytic activity/Vol] 22 U/L Normal 15-37 [facility] Comment on above: Performed By: #### L 501.080 #### [facility] [address] [place], [address] Bilirubin [Mass/Vol] 0.60 mg/dL Normal 0.20-1.00 [facility] Comment on above: Result Comment: For patients on eltrombopag therapy, use of Dimension Elliott TBIL is not recommended. Performed By: #### L 501.080 #### [facility] [address] [place], [address] BUN/CRE 23.6 RATIO High 10-20 [facility] Comment on above: Performed By: #### L 501.080 #### [facility] [address] [place], [address] CA,Total 8.9 mg/dL Normal 8.5-10.1 [facility] Comment on above: Performed By: #### L 501.080 #### [facility] [address] [place], [address] Chloride [Moles/Vol] 105 mmol/L Normal 98-107 [facility] Comment on above: Performed By: #### L 501.080 #### [facility] [address] [place], [address] CO2 [Moles/Vol] 26.0 mmol/L Normal 21.0-32.0 [facility] Comment on above: Performed By: #### L 501.080 #### [facility] [address] [place], [address] Creatinine [Mass/Vol] 1.57 mg/dL High 0.70-1.30 [facility] Comment on above: Result Comment: The validity of the calculated GFR GFRAA in patients over 70 years has not been determined. Clinical correlation is essential. Performed By: #### L 501.080 #### [facility] [address] [place], [address] ECRCL 38.64 ml/min Normal [facility] Comment on above: Performed By: #### L 501.080 #### [facility] [address] [place], [address] EST GFR - AA 55 mL/min Low >60 [facility] Comment on above: Result Comment: Afri can [place] GFR Calc Performed By: #### L 501.080 #### [facility] [address] [place], [address] GAP 7 Normal 5-15 [facility] Comment on above: Performed By: #### L 501.080 #### [facility] [address] [place], [address] GFR/1.73 sq M.predicted among non-blacks MDRD (S/P/Bld) [Vol rate/Area] 45 mL/min/{1.73_m2} Low >60 [facility] Comment on above: Result Comment: Non- GFR Calc Performed By: #### L 501.080 #### [facility] [address] [place], [address] Globulin (S) [Mass/Vol] 2.9 g/dL Normal 2.2-4.2 [facility] Comment on above: Performed By: #### L 501.080 #### [facility] [address] [place], [address] Glucose [Mass/Vol] 212 mg/dL High 74-106 [facility] Comment on above: Result Comment: Gluc ose result greater than or equal to 200 mg/dL suggests DIABETES MELLITUS per A.D.A. criteria. Performed By: #### L 501.080 #### [facility] [address] [place], [address] Potassium [Moles/Vol] 4.4 mmol/L Normal 3.5-5.1 [facility] Comment on above: Performed By: #### L 501.080 #### [facility] [address] [place], [address] Sodium [Moles/Vol] 138 mmol/L Normal 136-145 [facility] Comment on above: Performed By: #### L 501.080 #### [facility] [address] [place], [address] T PROT 6.4 g/dL Normal 6.4-8.2 [facility] Comment on above: Performed By: #### L 501.080 #### [facility] [address] [place], [address] Urea nitrogen [Mass/Vol] 37 mg/dL High 7-18 [facility] Comment on above: Performed By: #### L 501.080 #### [facility] Laboratory [address] [place], [address] Eosinophil percentageOrdered By: Roderick Laurent on 10-29-2024 Eosinophils/100 WBC (Bld) 3.5 % 0-5 [facility] Erythrocyte distribution wid th (RBC) [Ratio]Ordered By: Roderick Laurent on 10-29-2024 Erythrocyte distribution width (RBC) [Entitic vol] 44.6 fL High 35.1-43.9 [facility] Erythrocyte distribution wid th ratioOrdered By: Roderick Laurent on 10-29-2024 Erythrocyte distribution width (RBC) [Ratio] 11.9 % 11.6-14.6 [facility] Estimated glomerular filtrat ion rate (GFR) AmericanOrdered By: Roderick Laurent on 10-29-2024 Estimated GFR (MDRD) Amer 55 mL/min Low >60 [facility] Comment on above: GFR Calc Estimation of creatinine chapito aranceOrdered By: Roderick Laurent on 10-29-2024 Estimated Creatinine Clearance Calc 38.64 ml/min [facility] Glomerular filtration rate ( GFR) estimationOrdered By: Roderick Laurent on 10-29-2024 Estimated GFR (MDRD) Non-Af Amer 45 mL/min Low >60 [facility] Comment on above: Non- GFR Calc Glucose measurementOrdered B y: Roderick Laurent on 10-29-2024 Glucose [Mass/Vol] 212 mg/dL High 74-106 [facility] Comment on above: Glucose result great er than or equal to 200 mg/dLsuggests DIABETES MELLITUS per A.D.A. criteria. Hematocrit Auto (Bld) [Volum e fraction]Ordered By: Roderick Laurent on 10-29-2024 Hematocrit (Bld) [Volume fraction] 40.5 % 40-54 [facility] Hemoglobin measurementOrdere d By: Roderick Laurent on 10-29-2024 Hemoglobin (Bld) [Mass/Vol] 13.6 g/dL 13.0-16.5 [facility] Immature granulocytes/100 WB C Auto (Bld)Ordered By: Roderick Laurent on 10-29-2024 Immature granulocytes/100 WBC (Bld) 0.200 % 0.0-0.9 [facility] Comment on above: IG% - Immature Granu locytes (promyelocytes, myelocytes and metamyelocytes) > 1% indicates that a LEFT SHIFT is Present. Laboratory - Chemistry and C hemistry - challengeOrdered By: Roderick Laurent on 10-29-2024 AST [Catalytic activity/Vol] 22 U/L 15-37 [facility] Lymphocytes Auto (Unsp spec) [#/Vol]Ordered By: Roderick Laurent on 10-29-2024 Lymphocytes (Bld) [#/Vol] 0.93 10*3/uL 0.83-4.51 [facility] Lymphocytes/100 WBC Auto (Un sp spec)Ordered By: Roderick Laurent on 10-29-2024 Lymphocytes/100 WBC (Bld) 16.2 % Low 19-41 [facility] MCV (mean corpuscular volume ) determinationOrdered By: Roderick Laurent on 10-29-2024 MCV (RBC) [Entitic vol] 100.7 fL High 80-94 [facility] Mean corpuscular hemoglobin (MCH) determinationOrdered By: Roderick Laurent on 10-29-2024 MCH (RBC) [Entitic mass] 33.8 pg High 27.0-32.0 [facility] Mean corpuscular hemoglobin concentration (MCHC) determinationOrdered By: Roderick Laurent on 10-29-2024 MCHC (RBC) [Mass/Vol] 33.6 g/dL 32-36 [facility] Mean platelet volume determi nationOrdered By: Roderick Laurent on 10-29-2024 Platelet mean volume (Bld) [Entitic vol] 9.2 fL 6.2-12.0 [facility] Monocyte percentageOrdered B y: Roderick Laurent on 10-29-2024 Monocytes/100 WBC (Bld) 12.5 % High 0-10 [facility] Neutrophil percentageOrdered By: Roderick Laurent on 10-29-2024 Neutrophils/100 WBC (Bld) 66.9 % 47-70 [facility] Nucleated red blood cell per centageOrdered By: Roderick Laurent on 10-29-2024 Nucleated RBC/100 WBC (Bld) [Ratio] 0 % 0-5 [facility] Platelet countOrdered By: Marilu Laurent on 10-29-2024 Platelets (Bld) [#/Vol] 230 10*3/uL 150-450 [facility] Potassium measurementOrdered By: Roderick Laurent on 10-29-2024 Potassium [Moles/Vol] 4.4 mmol/L 3.5-5.1 [facility] RBC Auto (Bld) [#/Vol]Ordere d By: Roderick Laurent on 10-29-2024 RBC (Bld) [#/Vol] 4.02 10*6/uL Low 4.6-6.2 [facility] Serum anion gap measurementO rdered By: Roderick Laurent on 10-29-2024 Anion gap [Moles/Vol] 7 mmol/L 5-15 [facility] Serum globulin measurementOr dered By: Roderick Laurent on 10-29-2024 Globulin (S) [Mass/Vol] 2.9 g/dL 2.2-4.2 [facility] Serum or plasma alanine nix otransferase (ALT) measurementOrdered By: Roderick Laurent on 10-29-2024 ALT [Catalytic activity/Vol] 15 U/L Low 16-61 [facility] Serum or plasma albumin jesenia urement (mass/volume)Ordered By: Roderick Laurent on 10-29-2024 Albumin [Mass/Vol] 3.5 g/dL 3.2-5.0 [facility] Serum or plasma alkaline radha sphatase measurementOrdered By: Roderick Laurent on 10-29-2024 ALP [Catalytic activity/Vol] 64 U/L 45-117 [facility] Serum or plasma calcium jesenia urement (mass/volume)Ordered By: Roderick Laurent on 10-29-2024 Calcium [Mass/Vol] 8.9 mg/dL 8.5-10.1 [facility] Serum or plasma creatinine m easurement (mass/volume)Ordered By: Roderick Laurent on 10-29-2024 Creatinine [Mass/Vol] 1.57 mg/dL High 0.70-1.30 [facility] Comment on above: The validity of the calculated GFR & GFRAA in patients over 70 years has not been determined. Clinical correlation is essential. Serum or plasma urea nitroge n measurement (mass/volume)Ordered By: Roderick Laurent on 10-29-2024 Urea nitrogen [Mass/Vol] 37 mg/dL High 7-18 [facility] Sodium levelOrdered By: Roderick Laurent on 10-29-2024 Sodium [Moles/Vol] 138 mmol/L 136-145 [facility] Total proteinOrdered By: Katie Laurent on 10-29-2024 Protein [Mass/Vol] 6.4 g/dL 6.4-8.2 [facility] White blood cell (WBC) count Ordered By: Roderick Laurent on 10-29-2024 WBC (Bld) [#/Vol] 5.7 10*3/uL 4.4-11.0 [facility] Bedside Glucoseon 10-28-2024 FINGERSTICK GLU 191 mg/dL High 74-106 [facility] Comment on above: Result Comment: ARNOLD GEMENT OF PATIENT CARE PER NURSING PROTOCOL Performed By: #### L 501.080 #### [facility] Laboratory [address] [place], [address] FINGERSTICK GLU 130 mg/dL High -106 [facility] Comment on above: Result Comment: ARNOLD GEMENT OF PATIENT CARE PER NURSING PROTOCOL Performed By: #### L 501.080 #### [facility] Laboratory [address] [place], [address] FINGERSTICK GLU 204 mg/dL High 74-106 [facility] Comment on above: Result Comment: ARNOLD GEMENT OF PATIENT CARE PER NURSING PROTOCOL Performed By: #### L 501.080 #### [facility] Laboratory [address] [place], [address] CBC W/Diff, Automatedon 12-0 Absolute Lymph 1.02 X10 3/uL Normal 0.83-4.51 [facility] Comment on above: Performed By: #### L 100.0100, L500.4050, L501.9520 #### [facility] Laboratory [address] [place], [address] Absolute Neut 3.9 X10 3/uL Normal 2.0-7.7 [facility] Comment on above: Performed By: #### L 100.0100, L500.4050, L501.9520 #### [facility] Laboratory [address] [place], [address] Basophils/100 WBC (Bld) 0.5 % Normal 0-1 [facility] Comment on above: Performed By: #### L 100.0100, L500.4050, L501.9520 #### [facility] Laboratory [address] [place], [address] Eosinophils/100 WBC (Bld) 3.0 % Normal 0-5 [facility] Comment on above: Performed By: #### L 100.0100, L500.4050, L501.9520 #### [facility] Laboratory [address] [place], [address] Erythrocyte distribution width (RBC) [Ratio] 11.8 % Normal 11.6-14.6 [facility] Comment on above: Performed By: #### L 100.0100, L500.4050, L501.9520 #### [facility] Laboratory [address] [place], [address] Hematocrit (Bld) [Volume fraction] 40.0 % Normal 40-54 [facility] Comment on above: Performed By: #### L 100.0100, L500.4050, L501.9520 #### [facility] Laboratory [address] [place], [address] Hemoglobin (Bld) [Mass/Vol] 13.5 g/dL Normal 13.0-16.5 [facility] Comment on above: Performed By: #### L 100.0100, L500.4050, L501.9520 #### [facility] Laboratory [address] [place], [address] IG% 0.300 Normal 0.0-0.9 [facility] Comment on above: Result Comment: IG% - Immature Granulocytes (promyelocytes, myelocytes and metamyelocytes) > 1% indicates that a LEFT SHIFT is Present. Performed By: #### L 100.0100, L500.4050, L501.9520 #### [facility] Laboratory [address] [place], [address] Lymphocytes/100 WBC (Bld) 17.2 % Low 19-41 [facility] Comment on above: Performed By: #### L 100.0100, L500.4050, L501.9520 #### [facility] Laboratory [address] [place], [address] MCH (RBC) [Entitic mass] 33.4 pg High 27.0-32.0 [facility] Comment on above: Performed By: #### L 100.0100, L500.4050, L501.9520 #### [facility] Laboratory [address] [place], [address] MCHC (RBC) [Mass/Vol] 33.8 g/dL Normal 32-36 [facility] Comment on above: Performed By: #### L 100.0100, L500.4050, L501.9520 #### [facility] Laboratory [address] [place], [address] MCV (RBC) [Entitic vol] 99.0 fL High 80-94 [facility] Comment on above: Performed By: #### L 100.0100, L500.4050, L501.9520 #### [facility] Laboratory [address] [place], [address] Monocytes/100 WBC (Bld) 13.9 % High 0-10 [facility] Comment on above: Performed By: #### L 100.0100, L500.4050, L501.9520 #### [facility] Laboratory [address] [place], [address] Neutrophils/100 WBC (Bld) 65.1 % Normal 47-70 [facility] Comment on above: Performed By: #### L 100.0100, L500.4050, L501.9520 #### [facility] Laboratory [address] [place], [address] Nucleated RBC (Bld) [#/Vol] 0 10*3/uL Normal 0-5 [facility] Comment on above: Performed By: #### L 100.0100, L500.4050, L501.9520 #### [facility] Laboratory [address] [place], [address] Platelet mean volume (Bld) [Entitic vol] 9.4 fL Normal 6.2-12.0 [facility] Comment on above: Performed By: #### L 100.0100, L500.4050, L501.9520 #### [facility] Laboratory [address] [place], [address] Platelets (Bld) [#/Vol] 251 10*3/uL Normal 150-450 [facility] Comment on above: Performed By: #### L 100.0100, L500.4050, L501.9520 #### [facility] Laboratory [address] [place], [address] RBC (Bld) [#/Vol] 4.04 10*6/uL Low 4.6-6.2 [facility] Comment on above: Performed By: #### L 100.0100, L500.4050, L501.9520 #### [facility] Laboratory [address] [place], [address] RDW SD 43.0 fl Normal 35.1-43.9 [facility] Comment on above: Performed By: #### L 100.0100, L500.4050, L501.9520 #### [facility] Laboratory [address] [place], [address] WBC (Bld) [#/Vol] 5.9 10*3/uL Normal 4.4-11.0 [facility] Comment on above: Performed By: #### L 100.0100, L500.4050, L501.9520 #### [facility] Laboratory [address] [place], [address] Comprehensive Metabolic Prof ilon 10-28-2024 Albumin [Mass/Vol] 3.6 g/dL Normal 3.2-5.0 [facility] Comment on above: Performed By: #### L 100.0100, L500.4050, L501.9520 #### [facility] Laboratory [address] [place], [address] Albumin/Globulin [Mass ratio] 1.1 {ratio} Normal 0.9-2.4 [facility] Comment on above: Performed By: #### L 100.0100, L500.4050, L501.9520 #### [facility] Laboratory [address] [place], [address] ALK P 68 U/L Normal 45-117 [facility] Comment on above: Performed By: #### L 100.0100, L500.4050, L501.9520 #### [facility] Laboratory [address] [place], [address] ALT [Catalytic activity/Vol] 24 U/L Normal 16-61 [facility] Comment on above: Performed By: #### L 100.0100, L500.4050, L501.9520 #### [facility] Laboratory [address] [place], [address] AST [Catalytic activity/Vol] 25 U/L Normal 15-37 [facility] Comment on above: Performed By: #### L 100.0100, L500.4050, L501.9520 #### [facility] Laboratory [address] [place], [address] Bilirubin [Mass/Vol] 1.00 mg/dL Normal 0.20-1.00 [facility] Comment on above: Result Comment: For patients on eltrombopag therapy, use of Dimension Elliott TBIL is not recommended. Performed By: #### L 100.0100, L500.4050, L501.9520 #### [facility] Laboratory [address] [place], [address] BUN/CRE 16.7 RATIO Normal 10-20 [facility] Comment on above: Performed By: #### L 100.0100, L500.4050, L501.9520 #### [facility] Laboratory [address] [place], [address] CA,Total 8.7 mg/dL Normal 8.5-10.1 [facility] Comment on above: Performed By: #### L 100.0100, L500.4050, L501.9520 #### [facility] Laboratory [address] [place], [address] Chloride [Moles/Vol] 105 mmol/L Normal 98-107 [facility] Comment on above: Performed By: #### L 100.0100, L500.4050, L501.9520 #### [facility] Laboratory [address] [place], [address] CO2 [Moles/Vol] 23.0 mmol/L Normal 21.0-32.0 [facility] Comment on above: Performed By: #### L 100.0100, L500.4050, L501.9520 #### [facility] Laboratory [address] [place], [address] Creatinine [Mass/Vol] 1.20 mg/dL Normal 0.70-1.30 [facility] Comment on above: Result Comment: The validity of the calculated GFR GFRAA in patients over 70 years has not been determined. Clinical correlation is essential. Performed By: #### L 100.0100, L500.4050, L501.9520 #### [facility] Laboratory [address] [place], [address] ECRCL 50.55 ml/min Normal [facility] Comment on above: Performed By: #### L 100.0100, L500.4050, L501.9520 #### [facility] Laboratory [address] [place], [address] EST GFR - AA 74 mL/min Normal >60 [facility] Comment on above: Result Comment: Afri can Guatemalan GFR Calc Performed By: #### L 100.0100, L500.4050, L501.9520 #### [facility] Laboratory [address] [place], [address] GAP 8 Normal 5-15 [facility] Comment on above: Performed By: #### L 100.0100, L500.4050, L501.9520 #### [facility] Laboratory [address] [place], [address] GFR/1.73 sq M.predicted among non-blacks MDRD (S/P/Bld) [Vol rate/Area] 62 mL/min/{1.73_m2} Normal >60 [facility] Comment on above: Result Comment: Non- GFR Calc Performed By: #### L 100.0100, L500.4050, L501.9520 #### [facility] Laboratory [address] [place], [address] Globulin (S) [Mass/Vol] 3.3 g/dL Normal 2.2-4.2 [facility] Comment on above: Performed By: #### L 100.0100, L500.4050, L501.9520 #### [facility] [address] [place], [address] Glucose [Mass/Vol] 130 mg/dL High 74-106 [facility] Comment on above: Result Comment: Fast ing Glucose result greater than or equal to 126 mg/dL suggests DIABETES MELLITUS per A.D.A. criteria. Performed By: #### L 100.0100, L500.4050, L501.9520 #### [facility] [address] [place], [address] Potassium [Moles/Vol] 3.9 mmol/L Normal 3.5-5.1 [facility] Comment on above: Performed By: #### L 100.0100, L500.4050, L501.9520 #### [facility] [address] [place], [address] Sodium [Moles/Vol] 136 mmol/L Normal 136-145 [facility] Comment on above: Performed By: #### L 100.0100, L500.4050, L501.9520 #### [facility] [address] [place], [address] T PROT 6.9 g/dL Normal 6.4-8.2 [facility] Comment on above: Performed By: #### L 100.0100, L500.4050, L501.9520 #### [facility] [address] [place], [address] Urea nitrogen [Mass/Vol] 20 mg/dL High 7-18 [facility] Comment on above: Performed By: #### L 100.0100, L500.4050, L501.9520 #### [facility] [address] [place], [address] Culture, Anaerobic Any Sourc adrianna 10-28-2024 CUAN List Antibiotics [place] 48 Hours? NONE List Antibiotics to be Started? NONE No anaerobic bacteria isolated. Normal [facility] Comment on above: Performed By: #### M 100.4001, M100.3000, M100.2000 ####[facility] [address] [place], [address] TSH QnOrdered By: Sulma maxwell on 10-28-2024 Thyroid Stimulating Hormone (TSH) 4.070 uIU/mL High 0.358-3.740 [facility] Thyroid Stim Hormone (TSH)on 10-28-2024 TSH 4.070 uIU/mL High 0.358-3.740 [facility] Comment on above: Performed By: #### L 100.0100, L500.4050, L501.9520 #### [facility] Laboratory [address] [place], [place], [address] Urine Cultureon 10-28-2024 URC Mixed Gram Pos Gram Neg Org [place] Count 11,000-25,000 MIXC Mixed contaminants. Submit a new specimen if indicated. Normal [facility] Comment on above: Performed By: #### M 100.2200 ####[facility] [address] [place], [address] 12 Lead EKGon 10-27-2024 12 Lead EKG [facility] Cardiovascular Services [address] [place] [address] 12 Lead EKG 10/27/24 1027 MR#: [id number] Acct: [id number] Name: FLEX KLINE Rep #: [id number] : 1940 84 From: Garfield Thornton MD Attending Dr: Dr. Roderick Laurent DO Status: A DM IN Ordering Dr: Velasquez Morales DO Date: 4 Location: [facility] Sex: M C Admitted: 10/27/24 Test Reason [...] normal ECG Confirmed by Garfield Thornton ([id number]), senior editor ERROL AIKEN ([id number]) on 10/30/2024 6:53:52 AM Referred By: Confirmed By: Garfield Thornton 10/30/24 0653 Date Garfield Thornton MD CC: Dr. Velasquez Morales DO; Dr. Roderick Laurent DO; Dr. Felix Montelongo MD Signed Normal [facility] BNP (brain natriuretic pepti de measurement)Ordered By: Velasquez Morales on 10-27-2024 Natriuretic peptide B (Bld) [Mass/Vol] 133.8 pg/mL High 0-100 [facility] BNP,B-Type NATRIURETIC PEPTI Camryn 10-27-2024 Natriuretic peptide B (Bld) [Mass/Vol] 133.8 pg/mL High 0-100 [facility] Comment on above: Performed By: #### L 501.080 #### [facility] Laboratory [address] [place], [address] Basic Metabolic Profile (BMP )on 10-27-2024 BUN/CRE 17.1 RATIO Normal 10-20 [facility] Comment on above: Order Comment: 1Y Performed By: #### L 501.080 #### [facility] Laboratory [address] [place], [address] CA,Total 9.2 mg/dL Normal 8.5-10.1 [facility] Comment on above: Order Comment: 1Y Performed By: #### L 501.080 #### [facility] Laboratory [address] [place], [address] Chloride [Moles/Vol] 100 mmol/L Normal 98-107 [facility] Comment on above: Order Comment: 1Y Performed By: #### L 501.080 #### [facility] Laboratory [address] [place], [address] CO2 [Moles/Vol] 27.0 mmol/L Normal 21.0-32.0 [facility] Comment on above: Order Comment: 1Y Performed By: #### L 501.080 #### [facility] Laboratory [address] [place], [address] Creatinine [Mass/Vol] 1.46 mg/dL High 0.70-1.30 [facility] Comment on above: Order Comment: 1Y Result Comment: The validity of the calculated GFR GFRAA in patients over 70 years has not been determined. Clinical correlation is essential. Performed By: #### L 501.080 #### [facility] Laboratory [address] [place], [address] ECRCL 41.55 ml/min Normal [facility] Comment on above: Order Comment: 1Y Performed By: #### L 501.080 #### [facility] [address] [place], [address] EST GFR - AA 59 mL/min Low >60 [facility] Comment on above: Order Comment: 1Y Result Comment: Afri can [place] GFR Calc Performed By: #### L 501.080 #### [facility] Laboratory [address] [place], [address] GAP 7 Normal 5-15 [facility] Comment on above: Order Comment: 1Y Performed By: #### L 501.080 #### [facility] [address] [place], [address] GFR/1.73 sq M.predicted among non-blacks MDRD (S/P/Bld) [Vol rate/Area] 49 mL/min/{1.73_m2} Low >60 [facility] Comment on above: Order Comment: 1Y Result Comment: Non- GFR Calc Performed By: #### L 501.080 #### [facility] Laboratory [address] [place], [address] Glucose [Mass/Vol] 158 mg/dL High 74-106 [facility] Comment on above: Order Comment: 1Y Result Comment: Fast ing Glucose result greater than or equal to 126 mg/dL suggests DIABETES MELLITUS per A.D.A. criteria. Performed By: #### L 501.080 #### [facility] Laboratory [address] [place], [address] Potassium [Moles/Vol] 4.4 mmol/L Normal 3.5-5.1 [facility] Comment on above: Order Comment: 1Y Result Comment: Mode rate Hemolysis, Result may be falsely increased. Performed By: #### L 501.080 #### [facility] [address] [place], [address] Sodium [Moles/Vol] 133 mmol/L Low 136-145 [facility] Comment on above: Order Comment: 1Y Performed By: #### L 501.080 #### [facility] [address] [place], [address] Urea nitrogen [Mass/Vol] 25 mg/dL High 7-18 [facility] Comment on above: Order Comment: 1Y Performed By: #### L 501.080 #### [facility] [address] [place], [address] Bedside Glucoseon 10-27-2024 FINGERSTICK GLU 100 mg/dL Normal 74-106 [facility] Comment on above: Result Comment: ARNOLD HAYWARD OF PATIENT CARE PER NURSING PROTOCOL Performed By: #### L 501.080 #### [facility] [address] [place], [address] Bilirubin Test strip Ql (U)O rdered By: Velasquez Morales on 10-27-2024 Bilirubin Ql (U) Negative Negative [facility] CBC W/Diff, Automatedon 12-0 Absolute Neut Normal 2.0-7.7 [facility] Comment on above: Result Comment: James philippe via OM: Ordered Performed By: #### L 501.080 #### [facility] [address] [place], [address] HCT Normal 40-54 [facility] Comment on above: Result Comment: James philippe via OM: Ordered Performed By: #### L 501.080 #### [facility] [address] [place], [address] HGB Normal 13.0-16.5 [facility] Comment on above: Result Comment: Canc elled via OM: MD Ordered Performed By: #### L 501.080 #### [facility] [address] [place], [address] MCH Normal 27.0-32.0 [facility] Comment on above: Result Comment: Canc elled via OM: MD Ordered Performed By: #### L 501.080 #### [facility] [address] [place], [address] MCHC Normal 32-36 [facility] Comment on above: Result Comment: Canc elled via OM: MD Ordered Performed By: #### L 501.080 #### [facility] [address] [place], [address] MCV Normal 80-94 [facility] Comment on above: Result Comment: Canc elled via OM: MD Ordered Performed By: #### L 501.080 #### [facility] [address] [place], [address] NEUT% Normal 47-70 [facility] Comment on above: Result Comment: Canc elled via OM: MD Ordered Performed By: #### L 501.080 #### [facility] [address] [place], [address] PLT Normal 150-450 [facility] Comment on above: Result Comment: Canc elled via OM: MD Ordered Performed By: #### L 501.080 #### [facility] [address] [place], [address] RBC Normal 4.6-6.2 [facility] Comment on above: Result Comment: Canc elled via OM: MD Ordered Performed By: #### L 501.080 #### [facility] [address] [place], [address] RDW CV Normal 11.6-14.6 [facility] Comment on above: Result Comment: Canc elled via OM: MD Ordered Performed By: #### L 501.080 #### [facility] [address] [place], [address] RDW SD Normal 35.1-43.9 [facility] Comment on above: Result Comment: Canc elled via OM: MD Ordered Performed By: #### L 501.080 #### [facility] [address] [place], [address] WBC Normal 4.4-11.0 [facility] Comment on above: Result Comment: Canc elled via OM: MD Ordered Performed By: #### L 501.080 #### [facility] [address] [place], [address] Absolute Lymph 0.82 X10 3/uL Low 0.83-4.51 [facility] [facility] Comment on above: Performed By: #### L 501.080 #### [facility] [address] [place], [address] Absolute Neut 4.3 X10 3/uL Normal 2.0-7.7 [facility] Comment on above: Performed By: #### L 501.080 #### [facility] [address] [place], [address] Basophils/100 WBC (Bld) 0.7 % Normal 0-1 [facility] Comment on above: Performed By: #### L 501.080 #### [facility] [address] [place], [address] Eosinophils/100 WBC (Bld) 2.2 % Normal 0-5 [facility] Comment on above: Performed By: #### L 501.080 #### [facility] [address] [place], [address] Erythrocyte distribution width (RBC) [Ratio] 11.9 % Normal 11.6-14.6 [facility] Comment on above: Performed By: #### L 501.080 #### [facility] [address] [place], [address] Hematocrit (Bld) [Volume fraction] 41.5 % Normal 40-54 [facility] Comment on above: Performed By: #### L 501.080 #### [facility] [address] [place], [address] Hemoglobin (Bld) [Mass/Vol] 14.6 g/dL Normal 13.0-16.5 [facility] Comment on above: Performed By: #### L 501.080 #### [facility] [address] [place], [address] IG% 0.300 Normal 0.0-0.9 [facility] Comment on above: Result Comment: IG% - Immature Granulocytes (promyelocytes, myelocytes and metamyelocytes) > 1% indicates that a LEFT SHIFT is Present. Performed By: #### L 501.080 #### [facility] [address] [place], [address] Lymphocytes/100 WBC (Bld) 14.1 % Low 19-41 [facility] Comment on above: Performed By: #### L 501.080 #### [facility] [address] [place], [address] MCH (RBC) [Entitic mass] 34.9 pg High 27.0-32.0 [facility] Comment on above: Performed By: #### L 501.080 #### [facility] [address] [place], [address] MCHC (RBC) [Mass/Vol] 35.2 g/dL Normal 32-36 [facility] Comment on above: Performed By: #### L 501.080 #### [facility] [address] [place], [address] MCV (RBC) [Entitic vol] 99.3 fL High 80-94 [facility] Comment on above: Performed By: #### L 501.080 #### [facility] [address] [place], [address] Monocytes/100 WBC (Bld) 9.3 % Normal 0-10 [facility] Comment on above: Performed By: #### L 501.080 #### [facility] [address] [place], [address] Neutrophils/100 WBC (Bld) 73.4 % High 47-70 [facility] Comment on above: Performed By: #### L 501.080 #### [facility] [address] [place], [address] Nucleated RBC (Bld) [#/Vol] 0 10*3/uL Normal 0-5 [facility] Comment on above: Performed By: #### L 501.080 #### [facility] [address] [place], [address] Platelet mean volume (Bld) [Entitic vol] 9.6 fL Normal 6.2-12.0 [facility] Comment on above: Performed By: #### L 501.080 #### [facility] [address] [place], [address] Platelets (Bld) [#/Vol] 256 10*3/uL Normal 150-450 [facility] Comment on above: Performed By: #### L 501.080 #### [facility] [address] [place], [address] RBC (Bld) [#/Vol] 4.18 10*6/uL Low 4.6-6.2 [facility] Comment on above: Performed By: #### L 501.080 #### [facility] [address] [place], [address] RDW SD 43.4 fl Normal 35.1-43.9 [facility] Comment on above: Performed By: #### L 501.080 #### [facility] [address] [place], [place], [address] WBC (Bld) [#/Vol] 5.8 10*3/uL Normal 4.4-11.0 [facility] Comment on above: Performed By: #### L 501.080 #### [facility] [address] [place], [place], [address] Chest 1 View (Portable)on Chest 1 View (Portable) [facility] Imaging Services [address] [facility] [address] [place], [place] [address] Chest 1 View (Portable) MR#: [id number] Acct: [id number] Name: FLEX KLINE Rep #: [id number] : 1940 84 From: Clint Freire MD PCP: Dr. Felix Montelongo MD Status: PRE ER Study: Chest 1 View (Portable) Date of Exam: 10/27/24 Exam# [id number] Ordering Dr: Velasquez Morales DO [id number] STUDY: X-RAY CHEST REASON FOR EXAM: Male, [...] Velasquez Morales, DO; Dr. Felix Montelongo MD Mail Messenger Contractor: Signed Normal [facility] D-Dimer Quantitative (DVT/PE )on 10-27-2024 D-DIMER QUANT 0.50 FEU/ug/m High 0.27-0.49 [facility] Comment on above: Order Comment: CRITI SHIN VALUE CALLED TO TROY ROWELLJOEUJTU26/06/24 1225 Cat Benito.RESULTS READ BACK BY SAME. Result Comment: D-Di augusta ELEVATED (>0.49): Additional studies and clinical assessments are indicated to conclude diagnosis of: Deep Vein Thrombosis (DVT) or Pulmonary Embolism (PE) Performed By: #### L 501.080 #### [facility] [address] [place], [place], [address] D-dimer measurement for deep venous thrombosisOrdered By: Velasquez Morales on 10-27-2024 D-Dimer Quantitative (PE/DVT) 0.50 FEU/ug/m High 0.27-0.49 [facility] Comment on above: D-Dimer ELEVATED (>0 .49): Additional studies and clinicalassessments are indicated to conclude diagnosis of:Deep Vein Thrombosis (DVT) or Pulmonary Embolism (PE) Echo Complete W/ Contraston 10-27-2024 Echo Complete W/ Contrast [facility] [address] [facility] [place] [address] Echo Complete W/ Contrast 10/28/24 0814 MR#: [id number] Acct: [id number] Name: FLEX KLINE Rep #: [id number] : 1940 84 From: Angela Ramirez MD [...] Physician: Sulma Romero Performed By: Velasquez Cox, [facility] 10/28/241446 Date Angela Ramirez MD CC: Dr. Roderick Laurent DO; Dr. Sulma Romero MD; Dr. Felix Montelongo MD Date Dictated: 10/28/24813 Date Transcribed: 10/28/241446 Mail Messenger Contractor: Signed Normal [facility] Emergency Department Summary on 10-27-2024 Emergency Department Summary [facility] Medical Records Department [address] [place] [address] Emergency Department Summary 10/27/24 MR#: [id number] Acct: [id number] Name: FLEX KLINE Rep #: [id number] : 1940 84 From: Velasquez Morales DO PCP: Dr. Felix Montelongo MD Status:ADM IN Location: [place] [id number] HPI History of Present Illness Chief Complaint: [...] (Reviewed 10/27/24 @ 12:55 by Rita Calixto QUALITY IMPROVEMENT MANAGER, QUALITY IMPROVEMENT MANAGER-C) Diabetes GERD (gastroesophageal reflux disease) Cataract 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 heart disease of [place] coronary artery without angina pectoris Parkinson's disease [...] CAD (coron (more content not included)... Normal [facility] Epithelial cells.squamous LM Ql (Urine sed)Ordered By: Velasquez Morales on 10-27-2024 Epithelial cells.squamous LM.HPF (Urine sed) [#/Area] 0 /[HPF] 0-5 [facility] Glucose Ql (U)Ordered By: Korey Morales on 10-27-2024 Glucose (U) [Mass/Vol] 1000 mg/dL High Normal [facility] H AND P Exam - [facility] 10-27-2024 H&P Exam - Hospitalist [facility] Medical Records Department [address] [place] [address] H P Exam - Hospitalist 10/27/24 1633 MR#: [id number] Acct: [id number] Name: FLEX KLINE Rep #: [id number] : 1940 84 From: Sulma Romero MD PCP: Dr. Felix Montelongo MD Status:ADM IN Location: [facility] [id number] HPI - General General Date of Admission: 10/27/24 Date of Service: 10/27/24 Chief Complaint: Weakness, CP, SOB HPI Narrative FLEX KLINE, is a 84-year-old male history of CKD, Parkinson's, CAD, BPH, diabetes, hypothyroidism presented [facility] ED 10/27/2024 with shortness of breath, chest [...] notice any change with exertion or rest. [facility] Medical History (Reviewed 10/27/24 @ 12:55 by Rita Calixto QUALITY IMPROVEMENT MANAGER, QUALITY IMPROVEMENT MANAGER-C) Diabetes GERD (gastroesophageal reflux disease) Cataract 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 heart disease of [place] coronary artery without angina pectoris Parkinson's disease [...] (Reviewed 10/27/24 @ 12:55 by Rita Calixto QUALITY IMPROVEMENT MANAGER, QUALITY IMPROVEMENT MANAGER-C) Mother Alzheimer's dementia Diabetes Father CAD (coronary artery disease) Heart disease Brother CAD (coronary artery disease) Daughter Arthritis Surgical History (Reviewed 10/27/24 @ 12:55 by Rita Calixto QUALITY IMPROVEMENT MANAGER, QUALITY IMPROVEMENT MANAGER-C) 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 Normal [facility] Influenza virus A and B and SARS-CoV-2 (COVID-19) and Respiratory syncytial virus RNAOrdered By: Velasquez Morales on 10-27-2024 SARS-CoV-2 (COVID-19) RNA ROSIE+probe Ql (Unsp spec) [facility] Ketones Test strip Ql (U)Ord ered By: Velasquez Kaiser on 10-27-2024 Ketones Ql (U) 5 mg/dl High Negative [facility] L501.4020on 10-27-2024 TROPONIN-I HS 9 pg/mL Normal 3.0-78.0 [facility] Comment on above: Result Comment: Plea se Note: New Test Units and Gender Specific Reference Ranges. For more information see Policy Stat Procedure Elliott High Sensitivity Troponin (TNIH) and attachments. Performed By: #### L 501.4020 ####[facility] [address] [place], [address] L501.5425on 10-27-2024 TROPONIN-I HS 8 pg/mL Normal 3.0-78.0 [facility] Comment on above: Order Comment: 1Y Result Comment: Plea se Note: New Test Units and Gender Specific Reference Ranges. For more information see Policy Stat Procedure Elliott High Sensitivity Troponin (TNIH) and attachments. Performed By: #### L 501.080 #### [facility] [address] [place], [address] M100.678on 10-27-2024 M100.678 Pending SARS-CoV-2 (COVID 19) Negative INFLUENZA A Negative INFLUENZA B Negative RSV PCR Negative Normal [facility] Comment on above: Performed By: #### M 100.678, L400.0001 ####[facility] [address] [place], [address] Magnesiumon 10-27-2024 Magnesium [Mass/Vol] 2.2 mg/dL Normal 1.6-2.6 [facility] Comment on above: Performed By: #### L 501.080 #### [facility] [address] [place], [place], [address] Magnesium measurementOrdered By: Velasquez Morales on 10-27-2024 Magnesium [Mass/Vol] 2.2 mg/dL 1.6-2.6 [facility] Microscopic analysis of urin e for red blood cells (RBC)Ordered By: Velasquez Morales on 10-27-2024 Urine RBC 0 SEEN /hpf 0-5 [facility] Mucus LM Ql (Urine sed)Order ed By: Velasquez Morales on 10-27-2024 Mucus Ql (Urine sed) 0 SEEN /hpf [facility] Nitrite Test strip Ql (U)Ord ered By: Wainwright Carmen on 10-27-2024 Nitrite Ql (U) Negative Negative [facility] Protein Test strip Ql (U)Ord ered By: [facility] on 10-27-2024 Protein Ql (U) 30 mg/dl High Negative [facility] Thyroid Stim Hormone (TSH)on 10-27-2024 TSH 2.580 uIU/mL Normal 0.358-3.740 [facility] Comment on above: Performed By: #### L 501.080 #### [facility] [address] [facility] [address] [place], [place], [address] Troponin IOrdered By: Velasquez Morales on 10-27-2024 Troponin I High Sensitivity 9 pg/mL 3.0-78.0 [facility] Comment on above: Please Note: New Luz Elena t Units and Gender Specific Reference Ranges. For more information see Policy Stat Procedure Elliott High Sensitivity Troponin (TNIH) and attachments. Urinalysis, Completeon 10-27 BACTERIA 1+ /hpf Normal None Seen [facility] Comment on above: Order Comment: CLEAN CATCH Performed By: #### M 100.678, L400.0001 ####[facility] [address] [place], [address] WBC 10-25 SEEN Normal 0-5 [facility] Comment on above: Order Comment: CLEAN CATCH Performed By: #### M 100.678, L400.0001 ####[facility] [address] [place], [address] BILIRUBIN URINE Negative Normal Negative [facility] Comment on above: Order Comment: CLEAN CATCH Performed By: #### M 100.678, L400.0001 ####[facility] [address] [place], [address] Clarity (U) Clear Normal Clear [facility] Comment on above: Order Comment: CLEAN CATCH Performed By: #### M 100.678, L400.0001 ####[facility] [address] [place], [address] Color (U) Straw Normal Yellow [facility] Comment on above: Order Comment: CLEAN CATCH Performed By: #### M 100.678, L400.0001 ####[facility] [address] [place], [address] GLUCOSE, UR 1000 mg/dl Abnormal Normal [facility] Comment on above: Order Comment: CLEAN CATCH Performed By: #### M 100.678, L400.0001 ####[facility] [address] [place], [address] KETONE UR 5 mg/dl Abnormal Negative [facility] Comment on above: Order Comment: CLEAN CATCH Performed By: #### M 100.678, L400.0001 ####[facility] [address] [place], [address] LEUK ESTERASE 100 /ul Abnormal Negative [facility] Comment on above: Order Comment: CLEAN CATCH Performed By: #### M 100.678, L400.0001 ####[facility] [address] [place], [address] Nitrite Ql (U) Negative Normal Negative [facility] Comment on above: Order Comment: CLEAN CATCH Performed By: #### M 100.678, L400.0001 ####[facility] [address] [place], [address] OCCULT BLOOD-UR Negative Normal Negative [facility] Comment on above: Order Comment: CLEAN CATCH Performed By: #### M 100.678, L400.0001 ####[facility] [address] [place], [address] pH UR 7.0 Normal 5.0 - 8.0 [facility] Comment on above: Order Comment: CLEAN CATCH Performed By: #### M 100.678, L400.0001 ####[facility] [address] [place], [address] PROT DIPSTX 30 mg/dl Abnormal Negative [facility] Comment on above: Order Comment: CLEAN CATCH Performed By: #### M 100.678, L400.0001 ####[facility] [address] [place], [address] SP.GR. DIPSTX 1.010 Normal 1.002-1.030 [facility] Comment on above: Order Comment: CLEAN CATCH Performed By: #### M 100.678, L400.0001 ####[facility] [address] [place], [address] UROBILI Normal Normal Normal [facility] Comment on above: Order Comment: CLEAN CATCH Performed By: #### M 100.678, L400.0001 ####[facility] [address] [place], [address] EPI,SQUAMOUS 0 SEEN Normal 0-5 [facility] Comment on above: Order Comment: CLEAN CATCH Performed By: #### M 100.678, L400.0001 ####[facility] [address] [place], [address] Mucus Ql (Urine sed) 0 SEEN Normal [facility] Comment on above: Order Comment: CLEAN CATCH Performed By: #### M 100.678, L400.0001 ####[facility] [address] [place], [address] RBC 0 SEEN Normal 0-5 [facility] Comment on above: Order Comment: CLEAN CATCH Performed By: #### M 100.678, L400.0001 ####[facility] [address] [place], [address] Urine blood detectionOrdered By: Velasquez Morales on 10-27-2024 Urine Occult Blood Negative Negative [facility] Urine clarityOrdered By: Gregor Morales on 10-27-2024 Clarity (U) Clear Clear [facility] Urine color determinationOrd ered By: Velasquez Morales on 10-27-2024 Color (U) Straw Yellow [facility] Urine cultureOrdered By: Gregor Morales on 10-27-2024 Bacteria identified Cx Nom (U) Mixed Gram Pos & Gram Neg Org Abnormal [facility] Urine leukocyte esterase det ection by dipstickOrdered By: Velasquez Morales on 10-27-2024 Leukocyte esterase Test strip Ql (U) 100 /ul High Negative [facility] Urine pHOrdered By: Velasquez Saab on 10-27-2024 pH (U) 7.0 [pH] 5.0 - 8.0 [facility] Urine sediment bacteria coun t by microscopy (number/high power field)Ordered By: Velasquez Morales on 10-27-2024 Bacteria LM.HPF (Urine sed) [#/Area] 1 /[HPF] None Seen [facility] Urine specific gravity measu rementOrdered By: Velasquez Morales on 10-27-2024 Specific gravity (U) [Rel density] 1.010 1.002-1.030 [facility] Urobilinogen Ql (U)Ordered B y: Velasquez Morales on 10-27-2024 Urine Urobilinogen Normal mg/dl Normal [facility] White blood cell countOrdere d By: Velasquez Morales on 10-27-2024 Urine WBC 10-25 SEEN /hpf 0-5 [facility] Wound Cultureon 10-27-2024 List Antibiotics Las t [...] S Vancomycin Islt GAYLA <=0.5 S Normal [facility] Comment on above: Performed By: #### M 100.4001, M100.3000, M100.1999 ####[facility] [address] [place], [address] Gram Stainon 10-26-2024 List Antibiotics Las t 48 Hours? NONE List Antibiotics to be Started? NONE Gram Stain No organisms seen No cells seen Normal [facility] Comment on above: Performed By: #### M 100.4001, M100.3000, M100.2000 ####[facility] [address] [place], [address] Wound Ctr History AND Physic josé miguel 10-25-2024 Wound Ctr History & Physical [facility] [address] [facility] [place] [address] H P Exam - Wound Care 10/25/24 1711 MR#: [id number] Acct: [id number] Name: FLEX KLINE Rep #: [id number] : 1940 84 From: Rita Calixto NP QUALITY IMPROVEMENT MANAGER-C PCP: Dr. Felix Montelongo MD Status:REG RCR [...] erythematous and dry but no open wounds. [facility] Medical History Diabetes GERD (gastroesophageal reflux disease) Cataract 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 heart disease of [place] coronary artery without angina pectoris Parkinson's disease [...] Constitutional: D (more content not included)... Normal [facility] Absolute lymphocyte counton 06-29-2023 Lymphocytes Auto (Unsp spec) [#/Vol] 0.81 10*3/uL 0.83-4.51 [facility] Basophil percentageon 2022 Basophils/100 WBC (Bld) 0.2 % 0-1 [facility] Bilirubin [Mass/Vol] 0.80 mg/dL 0.20-1.00 [facility] Comment on above: For patients on eltr ombopag therapy, use of Dimension Elliott TBIL is not recommended. Chloride [Moles/Vol] 101 mmol/L 98-107 [facility] Cholesterol [Mass/Vol] 170 mg/dL <200 [facility] Comment on above: <200 mg/dL Desirable 200-240 mg/dL Borderline >240 mg/dL High Risk Eosinophils/100 WBC (Bld) 3.3 % 0-5 [facility] Glucose [Mass/Vol] 119 mg/dL 74-106 [facility] Comment on above: Fasting Glucose resu lt from 100 to 125 mg/dL suggests IMPAIRED HOMEOSTASIS per A.D.A. criteria. Neutrophils (Bld) [#/Vol] 3.9 10*3/uL 2.0-7.7 [facility] Neutrophils/100 WBC (Bld) 70.4 % 47-70 [facility] Potassium [Moles/Vol] 4.8 mmol/L 3.5-5.1 [facility] Protein [Mass/Vol] 7.2 g/dL 6.4-8.2 [facility] Sodium [Moles/Vol] 134 mmol/L 136-145 [facility] Triglyceride [Mass/Vol] 57 mg/dL <199 [facility] Comment on above: The drugs N-Acetylcy steine and Metamizole may falsely depress this assay.Serum Triglycerides Reference Interval Normal <150 mg/dL Borderline high 150 - 199 mg/dL High 200 - 499 mg/dL Very High > or = 500 mg/dL WBC (Bld) [#/Vol] 5.5 10*3/uL 4.4-11.0 [facility] Blood erythrocytes count (nu mber/volume)on 06-29-2023 RBC (Bld) [#/Vol] 4.22 10*6/uL 4.6-6.2 [facility] Blood hemoglobin measurement (mass/volume)on 06-29-2023 Hemoglobin (Bld) [Mass/Vol] 14.4 g/dL 13.0-16.5 [facility] Blood lymphocytes/100 leukoc yteson 06-29-2023 Lymphocytes/100 WBC (Bld) 14.8 % 19-41 [facility] Blood monocytes/100 leukocyt eson 06-29-2023 Monocytes/100 WBC (Bld) 11.1 % 0-10 [facility] Blood platelet mean volumeon 06-29-2023 Platelet mean volume (Bld) [Entitic vol] 9.7 fL 6.2-12.0 [facility] Determination of erythrocyte mean corpuscular volume (MCV)on 06-29-2023 MCV (RBC) [Entitic vol] 96.9 fL 80-94 [facility] Hematocrit Auto (Bld) [Volum e fraction]on 06-29-2023 Hematocrit (Bld) [Volume fraction] 40.9 % 40-54 [facility] - Chemistry and C hemistry - challengeon 06-29-2023 ALP [Catalytic activity/Vol] 59 U/L 45-117 [facility] ALT [Catalytic activity/Vol] 24 U/L 16-61 [facility] CO2 [Moles/Vol] 27.0 mmol/L 21.0-32.0 [facility] Globulin (S) [Mass/Vol] 3.3 g/dL 2.2-4.2 [facility] Urea nitrogen/Creatinine [Mass ratio] 18.1 mg/mg 10-20 [facility] - Hematology and Cell countson 06-29-2023 Erythrocyte distribution width (RBC) [Entitic vol] 42.5 fL 35.1-43.9 [facility] Erythrocyte distribution width (RBC) [Ratio] 11.9 % 11.6-14.6 [facility] Immature granulocytes/100 WBC (Bld) 0.200 % 0.0-0.9 [facility] Comment on above: IG% - Immature Granu locytes (promyelocytes, myelocytes and metamyelocytes) > 1% indicates that a LEFT SHIFT is Present. MCH (RBC) [Entitic mass] 34.1 pg 27.0-32.0 [facility] Nucleated RBC/100 WBC (Bld) [Ratio] 0 % 0-5 [facility] MCHC Auto (RBC) [Mass/Vol]on 06-29-2023 MCHC (RBC) [Mass/Vol] 35.2 g/dL 32-36 [facility] No Panel Informationon 06-29 Estimated GFR (MDRD) Amer 56 mL/min >60 [facility] Comment on above: GFR Calc Estimated GFR (MDRD) Non-Af Amer 46 mL/min >60 [facility] Comment on above: Non- GFR Calc Prostate Specific Antigen Screen 3.35 ng/mL 0.00-4.00 [facility] Comment on above: This test was perfor med using the TPSA assay method for theZakada chemistry system. Values obtained with differentassay methods cannot be used interchangably.When changing PSA assays in the course of monitoring apatient, additional sequential testing should be carriedout to confirm baseline values. Thyroid Stimulating Hormone (TSH) 4.85 uIU/mL 0.358-3.74 [facility] Urine Microalbumin/Creatinine Ratio 26.8 mg/g CRE <30 [facility] Platelets bldon 06-29-2023 Platelets (Bld) [#/Vol] 217 10*3/uL 150-450 [facility] Serum or plasma albumin jesenia urement (mass/volume)on 06-29-2023 Albumin [Mass/Vol] 3.9 g/dL 3.2-5.0 [facility] Serum or plasma albumin/glob ulin mass ratioon 06-29-2023 Albumin/Globulin [Mass ratio] 1.2 {ratio} 0.9-2.4 [facility] Serum or plasma calcium jesenia urement (mass/volume)on 06-29-2023 Calcium [Mass/Vol] 9.0 mg/dL 8.5-10.1 [facility] Serum or plasma cholesterol in HDL measurement (mass/volume)on 06-29-2023 Cholesterol in HDL [Mass/Vol] 56 mg/dL >40 [facility] Comment on above: The drugs N-Acetylcy steine and Metamizole may falsely depress this assay. Reference Range HDL <40 mg/dL Low HDL Cholesterol HDL >or= 60 mg/dL High HDL Cholesterol Serum or plasma cholesterol in VLDL measurement (mass/volume)on 06-29-2023 Cholesterol in VLDL [Mass/Vol] 11 mg/dL 5-40 [facility] Serum or plasma creatinine m easurement (mass/volume)on 06-29-2023 Creatinine [Mass/Vol] 1.55 mg/dL 0.70-1.30 [facility] Comment on above: The validity of the calculated GFR & GFRAA in patients over 70 years has not been determined. Clinical correlation is essential. Serum or plasma low density lipoprotein (LDL) cholesterol measurement (mass/volume)on 06-29-2023 Cholesterol in LDL [Mass/Vol] 103 mg/dL 0-130 [facility] Serum or plasma urea nitroge n measurement (mass/volume)on 06-29-2023 Urea nitrogen [Mass/Vol] 28 mg/dL 7-18 [facility] Thin prep Papanicolaou smear with manual screeningon 06-29-2023 Thin prep Papanicolaou smear with manual screening 21 U/L 15-37 [facility] [place] [facility] Papanicolaou smear with manual screening 6 5-15 [facility] Thin prep Papanicolaou smear with manual screening 32.2 mg/L NO RANGE EST. [facility] Urine creatinine measurement (mass/volume)on 06-29-2023 Creatinine (U) [Mass/Vol] 120.00 mg/dL NO RANGE EST. [facility] Whole blood hemoglobin A1c/t otal hemoglobin ratio (mass fraction)on 06-29-2023 HbA1c (Bld) [Mass fraction] 6.9 % 3.8-5.6 [facility] Comment on above: Normal < 5.7 % Predi abetic 5.7 - 6.4 % Diabetic >or= 6.5 % Please note range changes. Basophil percentageon 2021 Bilirubin [Mass/Vol] 0.70 mg/dL 0.20-1.00 [facility] Work Phone: Comment on above: For patients on eltr ombopag therapy, use of Dimension Elliott TBIL is not recommended. Chloride [Moles/Vol] 100 mmol/L 98-107 [facility] Work Phone: Cholesterol [Mass/Vol] 180 mg/dL <200 [facility] Work Phone: Comment on above: <200 mg/dL Desirable 200-240 mg/dL Borderline >240 mg/dL High Risk Glucose [Mass/Vol] 138 mg/dL 74-106 [facility] Work Phone: Comment on above: Fasting Glucose resu lt greater than or equal to 126 mg/dL suggests DIABETES MELLITUS per A.D.A. criteria. Potassium [Moles/Vol] 4.4 mmol/L 3.5-5.1 [facility] Work Phone: Protein [Mass/Vol] 7.5 g/dL 6.4-8.2 [facility] Work Phone: Sodium [Moles/Vol] 135 mmol/L 136-145 [facility] Work Phone: Triglyceride [Mass/Vol] 54 mg/dL <199 [facility] Work Phone: Comment on above: The drugs N-Acetylcy steine and Metamizole may falsely depress this assay.Serum Triglycerides Reference Interval Normal <150 mg/dL Borderline high 150 - 199 mg/dL High 200 - 499 mg/dL Very High > or = 500 mg/dL Laboratory - Chemistry and C hemistry - challengeon 06-04-2022 ALP [Catalytic activity/Vol] 66 U/L 45-117 [facility] Work Phone: ALT [Catalytic activity/Vol] 35 U/L 16-61 [facility] Work Phone: CO2 [Moles/Vol] 29.0 mmol/L 21.0-32.0 [facility] Work Phone: Globulin (S) [Mass/Vol] 3.4 g/dL 2.2-4.2 [facility] Work Phone: Urea nitrogen/Creatinine [Mass ratio] 18.2 mg/mg 10-20 [facility] Work Phone: Laboratory - Hematology and Cell countson 06-04-2022 HbA1c (Bld) [Mass fraction] 6.9 % [facility] Work Phone: No Panel Informationon 06-04 Estimated GFR (MDRD) Amer 56 mL/min >60 [facility] Work Phone: Comment on above: GFR Calc Estimated GFR (MDRD) Non-Af Amer 46 mL/min >60 [facility] Work Phone: Comment on above: Non- GFR Calc Thyroid Stimulating Hormone (TSH) 4.27 uIU/mL 0.358-3.74 [facility] Work Phone: Urine Microalbumin/Creatinine Ratio 97.5 mg/g CRE <30 [facility] Work Phone: Serum or plasma albumin jesenia urement (mass/volume)on 06-04-2022 Albumin [Mass/Vol] 4.1 g/dL 3.2-5.0 [facility] Work Phone: Serum or plasma albumin/glob ulin mass ratioon 06-04-2022 Albumin/Globulin [Mass ratio] 1.2 {ratio} 0.9-2.4 [facility] Work Phone: Serum or plasma calcium jesenia urement (mass/volume)on 06-04-2022 Calcium [Mass/Vol] 9.0 mg/dL 8.5-10.1 [facility] Work Phone: Serum or plasma cholesterol in HDL measurement (mass/volume)on 06-04-2022 Cholesterol in HDL [Mass/Vol] 59 mg/dL >40 [facility] Work Phone: Comment on above: The drugs N-Acetylcy steine and Metamizole may falsely depress this assay. Reference Range HDL <40 mg/dL Low HDL Cholesterol HDL >or= 60 mg/dL High HDL Cholesterol Serum or plasma cholesterol in VLDL measurement (mass/volume)on 06-04-2022 Cholesterol in VLDL [Mass/Vol] 11 mg/dL 5-40 [facility] Work Phone: Serum or plasma creatinine m easurement (mass/volume)on 06-04-2022 Creatinine [Mass/Vol] 1.54 mg/dL 0.70-1.30 [facility] Work Phone: Comment on above: The validity of the calculated GFR & GFRAA in patients over 70 years has not been determined. Clinical correlation is essential. Serum or plasma low density lipoprotein (LDL) cholesterol measurement (mass/volume)on 06-04-2022 Cholesterol in LDL [Mass/Vol] 110 mg/dL 0-130 [facility] Work Phone: Serum or plasma urea nitroge n measurement (mass/volume)on 06-04-2022 Urea nitrogen [Mass/Vol] 28 mg/dL 7-18 [facility] Work Phone: Thin prep Papanicolaou smear with manual screeningon 06-04-2022 Thin prep Papanicolaou smear with manual screening 27 U/L 15-37 [facility] Work Phone: Thin prep Papanicolaou smear with manual screening 6 5-15 [facility] Work Phone: Thin prep Papanicolaou smear with manual screening 116.0 mg/L NO RANGE EST. [facility] Work Phone: Urine creatinine measurement (mass/volume)on 06-04-2022 Creatinine (U) [Mass/Vol] 119.00 mg/dL NO RANGE EST. [facility] Work Phone: Echocardiogramon 07-10-2021 Echocardiography [facility] , [address] [place] [address], [address], [place] [address] and TRANSTHORACIC ECHOCARDIOGRAM REPORT Patient Name: FLEX KLINE Reading Physician: [id number] Diamond Hammer MD Study Date: 07/10/2021 Referring Physician: DAVID BABCOCK MRN/PID: [id number] PCP: Accession/Order#: [id number] Department Location: [facility] Date of : 1940 Fellow: Gender: M Nurse: Admit Date: Nut Processing Supervisor: Tono Blake RD Admission Status: Outpatient Additional Staff: Height: 180.34 cm CC Report to: Weight: 81.65 kg Study Type: Echocardiogram BSA: 2.02 m2 Blood Pressure: 141 /77 mmHg Diagnosis/ICD: 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 Indication: Coronary artery disease Procedure/CPT: Echo Complete w Full [id number] Patient History: Pertinent History: CAD s/p CABG [...] Antonia: 1.52 PulmV Sys Antonia: 48.61 cm/s [id number] Diamond Hammer MD Electronically signed on 07/10/2021 at 8:33:27 PM Final Normal [facility] Blood Pressure Cuff Sizeon 0 06-24-2021 Fall risk assessment b) One or more fall s in the last year [facility] [facility] Work Phone: Tobacco use status CPHS b) No M [facility] [facility] Work Phone: Blood Pressure Cuff Size Adult [facility] [facility] Work Phone: Office Visit (Vascular [...] dominant, LM unclear, LCX moderate disease, LAD MOWER OPERATOR, RCA MOWER OPERATOR, VG-LAD patent, PEACE-OM patent, VG-PDA occluded. Was told by his primary manager diversity that he may need atherectomy to one [...] 40 mg QHS. Continue ranolazine and ISMR. [facility] Chief Complaint Chief Complaints Visit For: Other [...] dominant, LM unclear, LCX moderate disease, LAD MOWER OPERATOR, RCA MOWER OPERATOR, VG-LAD patent, PEACE-OM patent, VG-PDA occluded. Was told by his primary manager diversity that he may need atherectomy to one of his vessels (?Cx). Additionally, it appears afterwards he had a MPI that demonstrated no inducible ischemia, normal LV size and function (low risk study) performed on 04-23-2021 and in response to this, it was decided that no further intervention was necessary. Deputy Chief Magistrate: Harjinder Jones MD ([facility]) *Active Problems Problems Diabetes mellitus (250.00) [...] 176.5 cm Harjinder Jones MD Work Phone: [facility] 2025 10:58-0400 Body mass index (BMI) [Ratio] 26.2 kg/m2 Harjinder Jones MD Work Phone: [facility] 2025 10:58-0400 Body weight 81.65 kg Harjinder Jones MD Work Phone: [facility] 2025 10:58-0400 Diastolic blood pressure 60 mm[Hg] Harjinder Jones MD Work Phone: [facility] 2025 10:58-0400 Heart rate 82 /min Harjinder Jones MD Work Phone: [facility] 2025 10:58-0400 Respiratory rate 16 /min Harjinder Jones MD Work Phone: [facility] 2025 10:58-0400 SaO2% (BldA) [Mass fraction] 98 % Harjinder Jones MD Work Phone: [facility] 2025 10:58-0400 Systolic blood pressure 138 mm[Hg] Harjinder Jones MD Work Phone: [facility] 03-02-2025 10:37-0400 Body mass index (BMI) [Ratio] 26.2 kg/m2 Kwan Estrella MD Work Phone: [facility] 03-02-2025 10:37-0400 Body weight 81.65 kg Kwan Estrella MD Work Phone: [facility] 03-02-2025 10:37-0400 Diastolic blood pressure 63 mm[Hg] Kwan Estrella MD Work Phone: [facility] 03-02-2025 10:37-0400 Heart rate 69 /min Kwan Estrella MD Work Phone: [facility] 03-02-2025 10:37-0400 SaO2% (BldA) [Mass fraction] 99 % Kwan Estrella MD Work Phone: [facility] 03-02-2025 10:37-0400 Systolic blood pressure 113 mm[Hg] Kwan Estrella MD Work Phone: [facility] 02-27-2025 10:56-0400 Body height 180.[address] Felix Montelongo MD Work Phone: [facility] 02-27-2025 10:56-0400 Diastolic blood pressure 78 mm[Hg] Dr. Felix Montelongo MD Work Phone: [facility] 02-27-2025 10:56-0400 Heart rate 62 /min Dr. Felix Montelongo MD Work Phone: [facility] 02-27-2025 10:56-0400 SaO2% (BldA) [Mass fraction] 96 % Dr. Felix Montelongo MD Work Phone: [facility] 02-27-2025 10:56-0400 Systolic blood pressure 168 mm[Hg] Dr. Felix Montelongo MD Work Phone: [facility] 01-22-2025 13:41-0500 Body height 176.5 cm Harjinder Jones MD Work Phone: [facility] 01-22-2025 13:41-0500 Body mass index (BMI) [Ratio] 25.62 kg/m2 Harjinder Jones MD Work Phone: [facility] 01-22-2025 13:41-0500 Body weight 79.83 kg Harjinder Jones MD Work Phone: [facility] 01-22-2025 13:41-0500 Diastolic blood pressure 70 mm[Hg] Harjinder Jones MD Work Phone: [facility] 01-22-2025 13:41-0500 Heart rate 91 /min Harjinder Jones MD Work Phone: [facility] 01-22-2025 13:41-0500 Respiratory rate 14 /min Harjinder Jones MD Work Phone: [facility] 01-22-2025 13:41-0500 SaO2% (BldA) [Mass fraction] 97 % Harjinder Jones MD Work Phone: [facility] 01-22-2025 13:41-0500 Systolic blood pressure 156 mm[Hg] Harjinder Jones MD Work Phone: [facility] 11-30-2024 08:36-0500 Body height 180.[address] Felix Montelongo MD Work Phone: [facility] 11-30-2024 08:36-0500 Body mass index (BMI) [Ratio] 24.1 kg/m2 Dr. Felix Montelongo MD Work Phone: [facility] 11-30-2024 08:36-0500 Body weight 78.[address] Felix Montelongo MD Work Phone: [facility] 11-30-2024 08:36-0500 Diastolic blood pressure 72 mm[Hg] Dr. Felix Montelongo MD Work Phone: [facility] 11-30-2024 08:36-0500 Heart rate 93 /min Dr. Felix Montelongo MD Work Phone: [facility] 11-30-2024 08:36-0500 Respiratory rate 18 /min Dr. Felix Montelongo MD Work Phone: [facility] 11-30-2024 08:36-0500 Systolic blood pressure 138 mm[Hg] Dr. Felix Montelongo MD Work Phone: [facility] 11-01-2024 15:00-0500 Body temperature 97.6 [degF] Dr. Felix Montelongo MD Work Phone: [facility] 11-01-2024 15:00-0500 Diastolic blood pressure 54 mm[Hg] Dr. Felix Montelongo MD Work Phone: [facility] 11-01-2024 15:00-0500 Heart rate 76 /min Dr. Felix Montelongo MD Work Phone: [facility] 11-01-2024 15:00-0500 Respiratory rate 18 /min Dr. Felix Montelongo MD Work Phone: [facility] 11-01-2024 15:00-0500 SaO2% (BldA) [Mass fraction] 94 % Dr. Felix Montelongo MD Work Phone: [facility] 11-01-2024 15:00-0500 Systolic blood pressure 104 mm[Hg] Dr. Felix Montelongo MD Work Phone: [facility] 11-01-2024 06:00-0500 Body mass index (BMI) [Ratio] 24.3 kg/m2 Dr. Felix Montelongo MD Work Phone: [facility] 11-01-2024 06:00-0500 Body weight [address] Felix Montelongo MD Work Phone: [facility] 01-04-2024 15:09-0500 Body height 176.5 cm Rocío Denbow PA-C Work Phone: [facility] 01-04-2024 15:09-0500 Body weight 83.01 kg Rocío Denbow PA-C Work Phone: [facility] 01-04-2024 15:09-0500 Diastolic blood pressure 66 mm[Hg] Rocío Joeybow PA-C Work Phone: [facility] 01-04-2024 15:09-0500 Heart rate 73 /min Rocío Denbow PA-C Work Phone: [facility] 01-04-2024 15:09-0500 Respiratory rate 14 /min Rocío Wagner PA-C Work Phone: [facility] 01-04-2024 15:09-0500 SaO2% (BldA) [Mass fraction] 97 % Rocío Wagner PA-C Work Phone: [facility] 01-04-2024 15:09-0500 Systolic blood pressure 122 mm[Hg] Rocío Wagner PA-C Work Phone: [facility] 06-04-2022 08:28-0400 Body height 182.[address] Felix Montelongo Work Phone: [facility] Work Phone: 06-04-2022 08:28-0400 Body mass index (BMI) [Ratio] 26 kg/m2 Dr. Felix Montelongo Work Phone: [facility] Work Phone: 06-04-2022 08:28-0400 Body temperature 96.5 [degF] Dr. Felix Montelongo Work Phone: [facility] Work Phone: 06-04-2022 08:28-0400 Body weight 87.[address] Felix Montelongo Work Phone: [facility] Work Phone: 06-04-2022 08:28-0400 Diastolic blood pressure 76 mm[Hg] Dr. Felix Montelongo Work Phone: [facility] Work Phone: 06-04-2022 08:28-0400 Heart rate 58 /min Dr. Felix Montelongo Work Phone: [facility] Work Phone: 06-04-2022 08:28-0400 Respiratory rate 18 /min Dr. Felix Montelongo Work Phone: [facility] Work Phone: 06-04-2022 08:28-0400 SaO2% (BldA) [Mass fraction] 99 % Dr. Felix Montelongo Work Phone: [facility] Work Phone: 06-04-2022 08:28-0400 Systolic blood pressure 124 mm[Hg] Dr. Felix Montelongo Work Phone: [facility] Work Phone: 06-24-2021 13:44-0400 Body height 182.88 cm Referring Provider Unknown [facility] Work Phone: 06-24-2021 13:44-0400 Body mass index (BMI) [Ratio] 24.36 kg/m2 Referring Provider Unknown CC[facility]Sdczcmlslb[facility]py [facility] Work Phone: 06-24-2021 13:44-0400 Body surface area Derived from formula 2.04 m2 Referring Provider Unknown LB[facility]Luprkynvod[facility]n [facility] Work Phone: 06-24-2021 13:44-0400 Body weight 81.47 kg Referring Provider Unknown MM-Eigeuqdrwm[facility]Ujmv [facility] Work Phone: 06-24-2021 13:44-0400 Diastolic blood pressure 75 mm[Hg] Referring Provider Unknown BT[facility]Cyicofoctb[facility]Nvxs [facility] Work Phone: 06-24-2021 13:44-0400 Heart rate 81 /min Referring Provider Unknown BH[facility]Bundccognv[facility]Fydb [facility] Work Phone: 06-24-2021 13:44-0400 Systolic blood pressure 138 mm[Hg] Referring Provider Unknown IE-Mfvqurmkaa[facility]Gwic [facility] Work Phone: 06-24-2021 13:44-0400 0 1 Referring Provider Unknown AL-Ibtvtxugep-Nknn [facility] Work Phone: Comment on above: [facility] 05-15-2021 11:29-0400 Body height 182.88 cm Referring Provider Unknown AP-Oticvzlpbe-Shvd na [address] [place] Work Phone: 05-15-2021 11:29-0400 Body mass index (BMI) [Ratio] 24.28 kg/m2 Referring Provider Unknown ME-Jlhvfzmshp-Vdns na [address] [place] Work Phone: 05-15-2021 11:29-0400 Body surface area Derived from formula 2.03 m2 Referring Provider Unknown DH-Eatasfquev-Erwf na [address] [place] Work Phone: 05-15-2021 11:29-0400 Body weight 81.19 kg Referring Provider Unknown LX-Xcstjqmhck-Bfxx na 140 [place] Work Phone: 05-15-2021 11:29-0400 Diastolic blood pressure 86 mm[Hg] Referring Provider Unknown DU-Trntoclgje-Mfzq na [address] [place] Work Phone: 05-15-2021 11:29-0400 Heart rate 82 /min Referring Provider Unknown TW-Znaswmzyzg-Ebeu na [address] [place] Work Phone: 05-15-2021 11:29-0400 SaO2% (BldA) [Mass fraction] 94 % Referring Provider Unknown KU-Qylhklieax-Vmin na [address] [place] Work Phone: 05-15-2021 11:29-0400 Systolic blood pressure 180 mm[Hg] Referring Provider Unknown FX-Izyghgfjyh-Akvu na [address] [place] Work Phone: 05-15-2021 11:29-0400 0 1 Referring Provider Unknown DF-Onpfswmwos-Dctt na 140 [place] Work Phone: Comment on above: [facility] Encounters Encounter Date Encounter Type Care Provider Facility Start: 04-26-2025 ambulatory Buzz ZHANG Fa cility:[facility] Start: 03-29-2025 ambulatory Buzz Vanessa cility:[facility] Start: 03-29-2025 Registered Referred Buzz Rainey MD -[facility] [place] Start: 2025 End: 2025 ambulatory HARJINDER JONES Facility:[facility] Start: 2025 End: 2025 Patient encounter procedure Harjinder Jones MD Work Phone: Cardiology Comment on above: Primary hypertension (Primary Dx); Coronary artery disease involving nulato coronary artery of nulato heart without angina pectoris Start: 03-02-2025 End: 03-02-2025 Patient encounter procedure Kwan Estrella MD Work Phone: [facility] [place] Comment on above: Coronary artery dise ase involving nulato coronary artery of nulato heart, unspecified whether angina present (Primary Dx); PAC (premature atrial contraction); PVC (premature ventricular contraction); Atrial tachycardia (HCC) Start: 03-02-2025 End: 03-02-2025 ambulatory HARJINDER JONES Facility:[facility] Start: 03-01-2025 End: 03-01-2025 Departed Referred Buzz Rainey MD -[facility] Start: 02-28-2025 End: 03-01-[address] Felix Montelongo MD Work Phone: [facility] Work Phone: Start: 02-28-2025 End: 02-28-2025 Departed Referred Buzz Rainey MD [facility] Start: 02-27-2025 End: 02-27-[address] Ozzy Bro MD -[facility] Work Phone: Start: 02-27-2025 End: 02-28-2025 ambulatory Buzz ZHANG Facility:[facility] Start: 02-26-2025 End: 02-26-[address] Felix Montelongo MD Work Phone: [facility] Work Phone: Start: 02-26-2025 End: 02-26-2025 Patient encounter procedure Abeba CERVANTES -[facility] Work Phone: Start: 01-31-2025 End: 01-31-[address] Felix Montelongo MD Work Phone: [facility] Work Phone: Start: 01-31-2025 End: 01-31-2025 Departed Referred Buzz LeeShlomo [facility] Start: 01-31-2025 End: 01-31-2025 ambulatory Buzz ZHANG Facility:[facility] Start: 01-22-2025 End: 01-22-2025 ambulatory HARJINDER JONES Facility:[facility] Start: 01-22-2025 End: 01-22-2025 ambulatory HARJINDER JONES Facility:[facility] Start: 01-22-2025 End: 01-22-2025 Patient encounter procedure Harjinder Jones MD Work Phone: Cardiology Comment on above: Palpitations (Primar y Dx); Diastolic congestive heart failure, unspecified HF chronicity (HCC); 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 Start: 01-04-2025 End: [...] Phone: Start: 12-07-2024 ambulatory Buzz ZHANG Fa cility:[facility] Start: 12-07-2024 Registered Referred Buzz DE LA O - [facility] Start: 12-04-2024 End: 12-04-2024 ambulatory Abeba Peacock QUALITY IMPROVEMENT MANAGER Facility:[facility] Start: 12-04-2024 End: 12-04-2024 Patient encounter procedure Abeba Madonna QUALITY IMPROVEMENT MANAGER-C -[facility] Work Phone: Start: 12-02-2024 [facility] Start: 11-30-2024 End: 11-30-[address] Margie Gary MD -[facility] Work Phone: Start: 11-30-2024 End: 11-30-2024 ambulatory Margie Gary Facility:[facility] Start: 11-30-2024 [facility] Start: 11-30-2024 Registered Referred Buzz Huddleston Start: 11-23-2024 [facility] Start: 11-23-2024 Registered Referred Buzz Huddleston Start: 11-16-2024 ambulatory [facility] Start: 11-16-2024 Registered Referred Buzz Huddleston Start: 11-09-2024 ambulatory [facility] Start: 11-09-2024 Registered Referred Buzz Huddleston Start: 11-07-2024 End: 11-07-2024 ambulatory Buzz Rainey Facility:[facility] Start: 11-07-2024 End: 11-07-[address] Buzz Rainey MD -[facility] Work Phone: Start: 11-03-2024 ambulatory Buzz Vanessa cility:[facility] Start: 11-03-2024 Registered Referred Buzz Rainey MD -[facility] [place] Start: 11-02-2024 End: 11-02-2024 ambulatory Abebasawyer Wadesandra QUALITY IMPROVEMENT MANAGER Facility:[facility] Start: 11-02-2024 End: 11-02-2024 Patient encounter procedure Abeba Madonna QUALITY IMPROVEMENT MANAGER- -[facility] Work Phone: Start: 11-01-2024 Non-patient / Non-visit Dr. Sung Richardson [facility] Work Phone: Start: 10-31-2024 ambulatory Ozzy Dieudonne [facility] Start: 10-31-2024 Non-patient / Non-visit Dr. Sung westbrook [facility] Work Phone: Start: 10-30-2024 Non-patient / Non-visit Dr. Sung Richardson [facility] Work Phone: Start: 10-29-2024 Non-[facility] / [facility] Work Phone: Start: 10-28-2024 Non-patient / Non-visit Dr. Marilu Laurent [facility] Work Phone: Start: 10-28-2024 ambulatory Angela Ramirez [facility] Start: 10-28-2024 Non-patient / Non-visit Dr. Angela gilmore MD -[facility] Start: 10-27-2024 ambulatory Sung Rhodes [facility] Start: 10-27-2024 End: 11-01-2024 Evaluation and management of inpatient Dr. Sung Rhodes DO -[facility] Work Phone: Start: 10-26-2024 End: [...] about it? Start: 10-25-2024 ambulatory Rita Calixto QUALITY IMPROVEMENT MANAGER Fa cility:[facility] Start: 10-25-2024 End: 11-21-2024 ambulatory Rita Calixto QUALITY IMPROVEMENT MANAGER Facility:[facility] Start: 09-11-2024 End: 09-11-2024 Refill Harjinder Jones MD Work Phone: [address] [place] [address] Comment on above: Refill Request Start: 02-01-2024 End: 02-01-2024 ambulatory Rocío Wagner PA-C Work Phone: [facility] [place] Comment on above: Controlled type 2 di abetes mellitus without complication, without long-term current use of insulin (HCC) (Primary Dx); Acquired hypothyroidism; Stage 3a chronic kidney disease (HCC); Parkinson's disease, unspecified whether dyskinesia present, unspecified whether manifestations fluctuate (HCC) Start: 02-01-2024 End: 02-01-2024 Telemedicine consultation with patient Rocío Wagner PA-C Work Phone: [facility] Start: 01-05-2024 ambulatory Rocío Wagner PA-C Work Phone: [facility] [place] Comment on above: Roller thing. Would like a prescription to [facility]. Start: 01-05-2024 Telephone encounter Felix Montelongo MD Work Phone: [facility] [place] Comment on above: patient update on fa ll Start: 01-04-2024 End: 01-04-2024 Patient encounter procedure Rocío Wagner PA-C Work Phone: [facility] [place] Comment on above: Controlled type 2 di [...] with patient Marni Hudson MD Work Phone: [facility] Start: 06-29-2023 End: 06-29-2023 ambulatory [facility] Work Phone: Start: 06-29-2023 End: 06-29-2023 Patient encounter procedure [facility] Work Phone: Start: 02-19-2023 Telephone encounter Marni [...] 06-04-2022 End: 06-04-[address] Felxi Montelongo Work Phone: [facility] Start: 06-04-2022 End: 06-04-[address] Felix Montelongo Work Phone: [facility] Start: 05-26-2022 Telephone encounter Marni whiting MD [...] cap copd pv dm Referring Provider Unknown EZ-Xbzwjoiwyc-Uwwemcsqd [facility] Work Phone: Start: 05-15-2021 Patient encounter procedure Referring Provider Unknown UF-Knjkjqkzhj-Znyqpt [address] [place] Work Phone: Start: 10-25-2018 Ambulatory [facility] Facility :[facility] Start: 02-23-2018 End: 02-23-2018 Ambulatory [facility] Facility:[facility] Start: 01-31-2018 Ambulatory NICOLA PAYNE Facil ity:[facility] Procedures Date Procedure Procedure Detail [...] [facility] [address] [place] [address] Kwan Estrella MD [address] [id number] 1 yr f/u. eg [facility] Comment on above: 1 yr f/u. eg Start: 10-01-2025 End: 10-01-2025 Patient encounter procedure 10/01/2025 10:40 AM EST Office Visit Cardiology [address] [place] [address] Harjinder Jones MD [address], [address] [place], [place] [id number] 6 month follow up Cardiology Comment on above: 6 month follow up Start: 03-08-2025 Covid-19 Vaccine () Covid-19 Vaccine () [facility] Start: 2025 End: 2025 Patient encounter procedure 2025 11:00 AM EDT Office Visit Cardiology [address] [place] [address] Harjinder Jones MD [address], [address] [place], [place] [id number] 6 weeek follow up Cardiology Comment on above: 6 weeek follow up Start: 01-22-2025 End: 04-23-2025 Natriuretic peptide.B prohormone N-Terminal [Mass/volume] in Serum or Plasma [facility] Comment on above: Expected: 01/22/2025 , Expires: 04/23/2025 Start: 01-22-2025 End: 04-23-2025 Thyrotropin [Units/volume] in Serum or Plasma [facility] Comment on above: Expected: 01/22/2025 , Expires: 04/23/2025 Start: 01-22-2025 End: 01-22-2025 Patient encounter procedure 01/22/2025 1:40 PM EST Office Visit Cardiology [address] [place] [address] Harjinder Jones MD [address], [address] [place], [place] [id number] 6 month follow up from appt 11/29/23 Cardiology Comment on above: 6 month follow up fr om appt 11/29/23 Start: 11-22-2024 Advance Directive Discussion Advance Directive Discussion [facility] Start: 11-01-2024 Patient discharge [facility] Start: 10-29-2024 Following clinical pathway protocol [facility] Start: 10-28-2024 Following clinical pathway protocol [facility] Start: 10-28-2024 [facility] Start: 10-27-2024 Following clinical pathway protocol [facility] Start: 10-27-2024 Assessment of risk o f venous thromboembolism [facility] Start: 10-27-2024 Care regimes management [facility] Start: 10-27-2024 Insertion of cathete r into peripheral vein [facility] Start: 10-27-2024 Measuring intake and output [facility] Start: 10-27-2024 Notification of physician [facility] Start: 10-27-2024 Providing care accor ding to standard [facility] Start: 10-27-2024 Provision of activit y privileges [facility] Start: 10-27-2024 Referral to occupati onal therapist [facility] Start: 10-27-2024 Referral to service [facility] Start: 10-27-2024 End: 10-27-2024 [facility] Start: 10-27-2024 Admission procedure [facility] Start: 07-23-2024 Covid-19 Vaccine ( season) Covid-19 Vaccine ( season) [facility] Start: 07-23-2024 Influenza vaccination Influenza Vacc ine (#1) [facility] Start: 03-13-2024 End: 06-12-2024 Thyrotropin [Units/volume] in Serum or Plasma TSH BLD Lab Routine Acquired hypothyroidism Expected: 03/13/2024, Expires: 06/12/2024 [facility] Work Phone: Comment on above: Expected: 03/13/2024 , Expires: 06/12/2024 Start: 02-01-2024 End: 05-02-2024 CBC W Auto Differential panel - Blood CBC + DIFF Lab Routine Stage 3a chronic kidney disease (HCC) Controlled type 2 diabetes mellitus without complication, without long-term current use of insulin (HCC) Parkinson's disease, unspecified whether dyskinesia present, unspecified whether manifestations fluctuate (HCC) Expected: 02/01/2024, Expires: 05/02/2024 [facility] Work Phone: Comment on above: Expected: 02/01/2024 , Expires: 05/02/2024 Start: 02-01-2024 End: 05-02-2024 Hemoglobin A1c in Blood HGB A1C Lab Routine Controlled type 2 diabetes mellitus without complication, without long-term current use of insulin (HCC) Expected: 02/01/2024, Expires: 05/02/2024 [facility] Work Phone: Comment on above: Expected: 02/01/2024 , Expires: 05/02/2024 Start: 01-04-2024 End: 04-04-2024 Basic metabolic 2000 panel - Serum or Plasma [facility] Work Phone: Comment on above: Expected: 01/04/2024 , Expires: 04/04/2024 Start: 01-04-2024 End: 04-04-2024 Thyrotropin [Units/volume] in Serum or Plasma [facility] Work Phone: Comment on above: Expected: 01/04/2024 , Expires: 04/04/2024 Start: 11-22-2023 Advance Directive Discussion Advance Directive Discussion [facility] Start: 11-22-2023 Depression Assessment Depression Ass essment [facility] Start: 07-23-2023 Influenza vaccination INFLUENZA (#1) [facility] Start: 06-29-2023 Adult depression screening assessment DEPRESSION SCREENING [facility] Start: 01-19-2023 COVID-19 VACCINE (6 - Pfizer series) COVID-19 VACCINE (6 - Pfizer series) [facility] Start: 11-22-2022 ADVANCE DIRECTIVE DISCUSSION ADVANCE DIRECTIVE DISCUSSION [facility] Start: 11-22-2022 DEPRESSION ASSESSMENT DEPRESSION ASS ESSMENT [facility] Start: 09-24-2022 Adult depression screening assessment DEPRESSION SCREENING [facility] Start: 07-23-2022 Influenza vaccination INFLUENZA (#1) [facility] Start: 06-04-2022 Testosterone [facility] Work Phone: Start: 05-01-2022 COVID-19 VACCINE (5 - Booster for Pfizer series) COVID-19 VACCINE (5 - Booster for Pfizer series) [facility] Start: 12-15-2021 COVID-19 VACCINE (4 - Booster for Pfizer series) COVID-19 VACCINE (4 - Booster for Pfizer series) [facility] Start: 11-22-2021 ADVANCE DIRECTIVE DISCUSSION ADVANCE DIRECTIVE DISCUSSION [facility] Start: 11-22-2021 DEPRESSION ASSESSMENT DEPRESSION ASS ESSMENT [facility] Start: 07-10-2021 ECHO, Provider: AISHA RHODES,MG CARD, Status: Pen, Time: 10:00 AM [facility] [address] Work Phone: Start: 02-23-2019 Hepatitis B surface antibody level LDL CHOLESTEROL [facility] Start: 10-28-2016 Pneumococcal Vaccine : 50+ (2 of 2 - PPSV23) Pneumococcal Vaccine: 50+ (2 of 2 - PPSV23) [facility] Start: 10-28-2016 Pneumococcal Vaccine : 65+ (2 of 2 - PPSV23 or PCV20) Pneumococcal Vaccine: 65+ (2 of 2 - PPSV23 or PCV20) [facility] Start: 09-13-2012 Urine microalbumin profile DTaP,Tdap,Td Vaccine (1 - Tdap) [facility] Start: 07-11-2010 Urine microalbumin profile DTAP,TDAP,TD (1 - Tdap) [facility] Start: 2007 PNEUMOVAX AGE 65 AND OVER WITH 5YR LOOKBACK (#1) PNEUMOVAX AGE 65 AND OVER WITH 5YR LOOKBACK (#1) [facility] Start: 1992 SHINGRIX VACCINE (1 of 2) HINTON GRIX VACCINE (1 of 2) [facility] Start: 1960 ANNUAL PCP TEAM RIVET TOSSER BRYCE DISEASE VISIT ANNUAL PCP TEAM CHRONIC DISEASE VISIT [facility] Start: 1960 Anxiety Screening Anxiety Screening [facility] Start: 1960 Depression Screening Depression Scre ening [facility] Start: 1952 3 comp foot exam completed DIABETIC FOOT EXAM [facility] Start: 1952 Diabetic foot examination Diabetic F oot Exam [facility] Start: 1952 Glaucoma screening Dilated Retinal E xam [facility] Start: 1952 Hepatitis B screening URINE AL BUMIN:CREATININE RATIO [facility] Start: 1952 Hepatitis C antibody , confirmatory test DILATED RETINAL EXAM [facility] Start: 1948 PNEUMOCOCCAL: 65+ (1 - PCV) PNEUMOCOCCAL: 65+ (1 - PCV) [facility] Start: 1947 Hemoglobin A1c measurement HbA1C [facility] Start: 1947 Hemoglobin A1c/Hemoglobin.total in Blood HBA1C [facility] NM Heart Views W str ess and W radionuclide IV [facility] OUTSIDE VENDOR CARDI AC OUTPATIENT EXTENDED RHYTHM RECORDING (WITHOUT TELEMETRY) OUTSIDE VENDOR CARDIAC OUTPATIENT EXTENDED RHYTHM RECORDING (WITHOUT TELEMETRY) Holter Routine Palpitations Ordered: 01/22/2025 [facility] Work Phone: Comment on above: Ordered: 01/22/2025 Patient Education Urinary Tract Infections in Men UTIs Chest Pain [facility] Work Phone: Patient referral [facility] Work Phone: T4 free measurement [facility] Work Phone: Testosterone Free [Mass/volume] in Serum or Plasma [facility] Work Phone: Testosterone measurement [facility] Work Phone: [facility] Immunizations Immunization Date Immunization Notes Care Provider [facility] 09-13-2023 influenza virus vaccine, unspecified formulation Harjinder Jones MD Work Phone: [facility] 09-23-2020 influenza, injectabl e, quadrivalent, preservative free [facility] 09-23-2020 influenza, seasonal, injectable Dr. Felix Montelongo Work Phone: [facility] Work Phone: 09-05-2014 pneumococcal conjuga te vaccine, [address] Felix Montelongo Work Phone: [facility] 07-23-2014 influenza, injectabl e, quadrivalent, preservative free [facility] 07-23-2014 influenza, seasonal, injectable Dr. eFlix Montelongo Work Phone: [facility] Work Phone: 07-10-2010 tetanus and diphther ia toxoids, adsorbed, preservative free, for adult use (2 Lf of tetanus toxoid and 2 Lf of diphtheria toxoid) Marni Hudson MD Work Phone: [facility] Work Phone: 08-22-2007 pneumococcal conjuga te vaccine, 7 valent Marni Hudson MD Work Phone: [facility] Payers Date Payer Category Payer Self-pay [id number] 2022 Medicare [employer] [place] [id number] 2022-Present [phone] [address] [place] [address] [facility] [id number] 2022 Medicare (Managed Care) [place] MEDIC ARE [id number] 2022 Medicare [id number] 2020 Medicare AETNA MEDICARE A ETNA MEDICARE PPO [id number] 2020-Present [phone] [address] [place] [address] O xxxxGRSY [id number] 2016 Medicare [id number] Private Health Insurance [facility] [id number] Private Health Insurance MAB VGRSY [id number] Private Health Insurance [id number] Unknown [employer] Unknown [id number] 2.16.840.1.592990.3.579 .2.462 Unknown [id number] 2.16.840.1.391259.3.579 .2.462 Unknown [id number] 2.16.840.1.905762.3.579 .2.462 Unknown [id number] 2.16.840.1.874668.3.579 .2.462 Unknown [id number] 2.16.840.1.857077.3.579 .2.462 Unknown [id number] 2.16.840.1.557572.3.579 .2.462 Unknown [id number] 2.16.840.1.874484.3.579 .2.462 Unknown [id number] 2.16.840.1.275997.3.579 .2.462 Unknown [id number] 2.16.840.1.921571.3.579 .2.462 Unknown [id number] 2.16.840.1.791504.3.579 .2.462 Unknown [id number] 2.16.840.1.732403.3.579 .2.462 Unknown [id number] 2.16.840.1.907405.3.579 .2.462 Unknown [id number] 2.16.840.1.863339.3.579 .2.462 Unknown [id number] 2.16.840.1.826406.3.579 .2.462 Unknown [id number] 2.16.840.1.061032.3.579 .2.462 Unknown [id number] 2.16.840.1.522883.3.579 .2.462 Unknown [id number] 2.16.840.1.178073.3.579 .2.462 Unknown [id number] 2.16.840.1.564303.3.579 .2.462 Unknown [id number] 2.16.840.1.291814.3.579 .2.462 Unknown [id number] 2.16.840.1.459106.3.579 .2.462 Unknown [id number] 2.16.840.1.191396.3.579 .2.462 Unknown [id number] 2.16.840.1.288916.3.579 .2.462 Unknown [id number] 2.16.840.1.877333.3.579 .2.462 Unknown [id number] 2.16.840.1.941216.3.579 .2.462 Unknown [id number] 2.16.840.1.657017.3.579 .2.462 Unknown [id number] 2.16.840.1.247419.3.579 .2.462 Unknown [id number] 2.16.840.1.864210.3.579 .2.462 Unknown [id number] 2.16.840.1.782607.3.579 .2.462 Unknown [id number] 2.16.840.1.658874.3.579 .2.462 Social History Date Type Detail Facility Start: 06-29-2022 End: 11-09-2024 Tobacco smoking status NHIS Never smoked tobacco [facility] Start: 10-20-2021 End: 2025 Alcohol intake Lifetime non-drinker (finding) [facility] Start: 09-25-2021 History SDOH Alcohol Frequency 1 [facility] Start: 1940 Sex Assigned At Not on file C [facility] Start: 06-04-2022 End: 05-07-2023 Tobacco smoking status NHIS Unknown if ever smoked [facility] Start: 04-21-2021 None [facility] Start: 04-21-2021 Non-smoker [facility] Start: 1940 Sex Assigned At Male [facility] Start: 06-29-2022 Tobacco use and exposure Smokeless tobacco non-user [facility] Start: 06-19-2022 End: 06-29-2022 Exposure to SARS-CoV-2 (event) Not sure [facility] Start: 06-29-2022 End: 07-07-2023 History of Social function [facility] Start: 06-29-2022 End: 07-07-2023 Tobacco use panel [facility] Adult Depression Screening Assessment 2 [facility] Start: 07-28-2018 Spouse/ Signif icant Other [facility] Start: 02-23-2025 Sex Male (finding) [facility] Medical Equipment Procedure Code Equipment Code Equipment [...] Assessment Result Facility 11-01-2024 Functional status Ambulates [facility] Work Phone: 04-23-2021 Are you deaf, or do you have serious difficulty hearing No 04/23/2021 5:34 PM Randi Scott RN No [facility] 04-23-2021 Are you blind, or do you have serious difficulty seeing, even when wearing glasses No 04/23/2021 5:34 PM Randi Scott RN No [facility] 04-23-2021 Do you have serious difficulty walking or climbing stairs No 04/23/2021 5:34 PM Randi Scott, LINSEY No [facility] 04-23-2021 Do you have difficul ty dressing or bathing No 04/23/2021 5:34 PM Randi Scott RN No [facility] 04-23-2021 Because of a physica l, mental, or emotional condition, do you have difficulty doing errands alone such as visiting a physician's office or shopping No 04/23/2021 5:34 PM Randi Scott RN No [facility] Mental Status Date Assessment Result Facility 11-01-2024 Cognitive function Voice/Name [facility] Work Phone: 04-23-2021 Because of a physica l, mental, or emotional condition, do you have serious difficulty concentrating, remembering, or making decisions No 04/23/2021 5:34 PM Randi Scott RN No [facility] Clinical Notes 03-25-2022 to 2025 Harjinder Jones MD - 2025 12:12 PM EDTPatient Kwan Chand MD - 03/02/2025 10:20 AM EDT Note Date & Type Note Facility 2025 Note HNO ID: [id number] Author: HARJINDER JONES MD Service: ? Author Type: Physician Type: Progress Notes Filed: 2025 12:16 Note Text: Harjinder Jones MD Interventional Cardiology [address] [place] [id number] Chief Complaint Patient presents with: Follow Up: 6 week follow up, c/o chest pain HISTORY OF PRESENT ILLNESS: Mr. Kline is a 85 year old male seen in my office today for follow-up patient had a prior history of severe nulato coronary artery disease with prior history of [...] for this visit. (more content not included)... [facility] 2025 History of Present illness Narrative Images from the original note were not included. Harjinder Jones MD Interventional Cardiology [address] [place] [phone] Chief Complaint Patient presents with: Follow Up: 6 week follow up, c/o chest pain HISTORY OF PRESENT ILLNESS: Mr. Kline is a 85 year old male seen in my office today for follow-up patient had a prior history of severe nulato coronary artery disease with prior history of [...] Value 01/22/2025 12.8 07/14/2018 Test sent to [facility]. Hematocrit (%) Date Value 01/22/2025 37.7 07/14/2018 Test sent to [facility]. WBC (k/uL) Date Value 01/22/2025 5.09 07/14/2018 Test sent to [facility]. Platelet Count (k/uL) Date Value 01/22/2025 216 07/14/2018 Test sent to [facility]. BMP: Glucose (mg/dL) Date Value 01/22/2025 171 [...] Ref Range Status 02/23/2018 Test sent to [facility]. <200 mg/dL Final Comment: Account Credited HIDE HDL Cholesterol Date Value Ref Range Status 02/23/2018 Test sent to [facility]. >39 mg/dL Final Comment: Account Credited [facility] LDL Cholesterol Date Value Ref Range Status 02/23/2018 Test sent to [facility]. <100 mg/dL Final Comment: Account Credited [facility]IDE Triglyceride Date Value Ref Range Status 02/23/2018 Test sent to [facility]. <150 mg/dL Final Comment: Account Credited HIDE [...] aerobic exercise 2. 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 documented in this encounter [facility] 03-02-2025 Instructions Kwan Estrella MD - [...] at that time. documented in this encounter [facility] 03-02-2025 History of Present illness Narrative Images from the original note were not included. [facility] SECTION OF CARDIAC PACING and ELECTROPHYSIOLOGY OUTPATIENT VISIT DATE March 02, 2025 OUTPATIENT VISIT TYPE NEW PRIMARY CARE PHYSICIAN: Vincent Espinosa [address] [place] [address] REFERRING PHYSICIAN: Harjinder Jones [address] [facility], [address] [facility] [address] chief complaint on file. HISTORY OF PRESENT [...] currently a resident at [facility]. Had a recent UTI in 10/2024, still [...] fibrillation ECG 11/29/23 - SR 77 bpm VT 210 QRS 102 QT/c 364 411 PVC [...] rare (<1.0%). Isolated VEs were rare (<1.0%, 81739), VE Couplets were rare (<1.0%, 63), and [...] central nervous system(341.8) Peripheral vascular disease, unspecified ([facility]) Type II or unspecified type diabetes mellitus [...] hands EKG 03/02/25 .Sinus rhythm 68 bpm VT 264ms First degree AVB QRS 96ms QT/c [...] MD This note was partially generated using [employer] voice recognition system. documented in this encounter [facility] 03-02-2025 Note HNO ID: [id number] Author: KWAN ESTRELLA MD Service: ? Author Type: Physician Type: Progress Notes Filed: 03/02/2025 11:18 Note Text: [facility] SECTION OF CARDIAC PACING and ELECTROPHYSIOLOGY OUTPATIENT VISIT DATE March 02, 2025 OUTPATIENT VISIT TYPE NEW PRIMARY CARE PHYSICIAN: Vincent Espinosa [address] [place] [address] REFERRING PHYSICIAN: Harjinder Jones [address], [address] [facility] [address] chief complaint on file. HISTORY OF PRESENT [...] currently a resident at [facility]. Had a recent UTI in 10/2024, still [...] fibrillation ECG 11/29/23 - SR 77 bpm VT 210 QRS 102 QT/c 364 411 PVC [...] rare (<1.0%). Isolated VEs were rare (<1.0%, 15164), VE Couplets were rare (<1.0%, 63), and [...] central nervous system(341.8) Peripheral vascular disease, unspecified ([facility]) Type II or unspecified type diabetes mellitus [...] kidney disease) chronic February 27, 2025 10:51am [facility] [employer] Work Phone: 1(794) 781-685403-03-2025 NoteHNO ID: [id number] Author: BLANCA MARCELINO LPN Service: ? Author Type: LICENSED NURSE Type: Progress Notes Filed: 01/22/2025 15:05 Note Text: EVENT MONITOR DISPOSABLE PATCH INSTRUCTIONS Patient Name: Flex Atkinson [facility] Number: [id number] Skin prepped and cleansed with alcohol Patch secured to prepped area Monitor Activated Serial #: [id number] Patient Instructed: Prescribed order timeframe Bathing guidelines Usage of event button and diary documentation Return of monitor at the end of prescribed order Call with problems [phone] or [phone] ext. [phone] Patient expresses a good understanding of instructions [facility] History of Present illness Narrative* Blanca Marcelino LPN - 01/22/2025 3:04 PM EST EVENT MONITOR DISPOSABLE PATCH INSTRUCTIONS Patient Name: Flex Atkinson [facility] Hospital Number: [id number] Skin prepped and cleansed with alcohol Patch secured to prepped area Monitor Activated Serial #: [id number] Patient Instructed: Prescribed order timeframe Bathing guidelines Usage of event button and diary documentation Return of monitor at the end of prescribed order Call with problems [phone] or [phone] ext. [phone] Patient expresses a good understanding of instructions Blanca Marcelino LPN * Harjinder Jones MD - 01/22/2025 2:34 PM EST Images from the original note were not included. Harjinder Jones MD Interventional Cardiology [address] [phone] Chief Complaint Patient presents with: Follow Up: [...] central nervous system(341.8) Peripheral vascular disease, unspecified ([facility]) Type II or unspecified type diabetes mellitus [...] Value 04/22/2021 12.5 07/14/2018 Test sent to [facility]. Hematocrit (%) Date Value 04/22/2021 36.8 07/14/2018 Test sent to [facility]. WBC (k/uL) Date Value 04/22/2021 5.50 07/14/2018 Test sent to [facility]. Platelet Count (k/uL) Date Value 04/22/2021 197 07/14/2018 Test sent to [facility]. BMP: Glucose (mg/dL) Date Value 01/04/2024 130 [...] Ref Range Status 02/23/2018 Test sent to [facility]. <200 mg/dL Final Comment: Account Credited HIDE HDL Cholesterol Date Value Ref Range Status 02/23/2018 Test sent to [facility]. >39 mg/dL Final Comment: Account Credited [facility] LDL Cholesterol Date Value Ref Range Status 02/23/2018 Test sent to [facility]. <100 mg/dL Final Comment: Account Credited [facility]IDE Triglyceride Date Value Ref Range Status 02/23/2018 Test sent to [facility]. <150 mg/dL Final Comment: Account Credited HIDE [...] to check his BMP 3. 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 A reasonable attempt has been made to correct any errors. [facility] NoteHNO ID: [id number] Author: HARJINDER JONES MD Service: ? Author Type: Physician Type: Progress Notes Filed: 01/22/2025 14:39 Note Text: Harjinder Jones MD Interventional Cardiology [address] [place], [place] [address] [phone] Chief Complaint Patient presents with: Follow Up: [...] central nervous system(341.8) Peripheral vascular disease, unspecified ([facility]) Type II or unspecified type diabetes mellitus [...] loss, nosebleeds, sinus concepcion (more content not included)...[facility] 01-22-2025 NoteHNO ID: [id number] Author: HARJINDER JONES MD Service: ? Author [...] rare (<1.0%). Isolated VEs were rare (<1.0%, 13701), VE Couplets were rare (<1.0%, 63), and VE Triplets were rare (<1.0%, 19). Ventricular Bigeminy and Trigeminy were present. Difficulty discerning atrial activity making definitive diagnosis difficult to ascertain.[facility]01-09-2025 Evaluation note* Diagnosis Onset Date Resolution Status [...] kidney disease) chronic February 27, 2025 10:51am [facility] Work Phone: 1(696) 760-389612-20-2024 Telephone encounter Note* Telephone Encounter - Florence Reed MA - 11/10/2024 11:09 AM EST Called pt to offer appt on cancellation list. Pt is currently in rehab facility and unable to come.Will call once he is out if needs to be seen sooner. Florence Reed MA [facility]12-20-2024 Miscellaneous Notes* Telephone Encounter - Florence [...] Ana Laura Rosario RN [facility] Telephone encounter Note * Telephone Encounter - Ana Laura Rosario RN - 11/03/2024 9:09 AM EST Called and left VM asking the patient to call back to schedule and office visit. If patient calls back please offer 11/13/24 at 1:20pm or 11/27/24 at 1:20pm and ask for an update on the patient's symptoms. Ana Laura Rosario RN [facility]12-11-2024 [facility] Medical Records Department [address] [place] [address] Discharge Summary 11/01/24 1501 MR#: [id number] Acct: [id number] Name: FLEX KLINE Rep #: [id number] : 1940 84 From: Sung Rhodes DO PCP: Dr. Felix Montelongo MD Status:ADM IN Location: [place] [id number] Providers Date of Admission: 10/27/24 Primary Care [...] on Synthroid VTE prophylaxis: LMWH Disposition: to [facility] pending insurance authorization. 10/31: Talked about aggressiveness [...] tablet,delayed release 81 mg PO DAILY@0800 [facility] 07/28/18 nitroglycerin 0.4 mg sublingual tablet [...] years or YOUNGER s (more content not included)...[facility]12-06-2024 Evaluation note* Diagnosis Onset Date Resolution Status [...] 2018 chr onic November 30, 2024 9:59am [facility] Work Phone: 1(616) 804-636012-05-2024 Telephone encounter Note* Telephone Encounter - Ana [...] it? Please Advise Ana Laura Rosario RN [facility]10-21-2024 Telephone encounter Note* Telephone Encounter - [...] Ann Hernandez September 11, 2024 8:46 AM [facility]10-21-2024 Miscellaneous Notes* Telephone Encounter - Ruth [...] 11, 2024 8:46 AM documented in this encounterAdams [facility] Hospital03-12-2024 History of Present illness Narrative* Rocío Wagner PA-C - 02/01/2024 3:01 PM EDT This Team Access Model visit is a phone encounter. It required patient-provider interaction for themedical decision making as documented below. Patient agrees to the visit: Yes Patient Location: [place] I have communicated my name and active licensure. The patient's identity and physical location wereverified at the time of this visit. Either the patient or their legal in store marketing representative has been informed of the risks [...] Parkinson's and associated tremors. Last A1c at [facility] was in 07/14 was 6.9. REVIEW [...] care. Rocío Wagner PA-C documented in this encounterAdams [facility] Hospital02-27-2024 Miscellaneous Notes* Telephone Encounter - Juliana [...] pt. Florence Santos LPN documented in this encounterAdams [facility] Hospital02-14-2024 Miscellaneous Notes* Telephone Encounter - Rocío [...] prescription? Rocío Wagner PA-C documented in this encounterAdams [facility] Hospital02-13-2024 History of Present illness Narrative* Rocío [...] GFR 46 from most recent labs through [facility] in 07/14. Does not see a supplier diversity director. REVIEW OF SYSTEMS See HPI All other [...] plan. Rocío Wagner PA-C documented in this encounterAdams County Hospital08-16-2023 Instructions* Patient Instructions* Marni Hudson MD [...] or you can send a message through [employer]. You can also now schedule and select appointments through [employer]. Marni Hudson MD Constipation and Other Gastrointestinal [...] future constipation. Treatments fall into two categories: cfqw-kkv-hjylghp and prescription therapies. Remember: consult with your [...] day and your own convenience and preference. Fsdc-tjh-Kjozbru Products Dtgh-hrc-svbusvl treatments for constipation can be purchased at [...] It also comes as a capsule ([place] Smooth Move ). ving with PD Constipation [...] easier to pass. These can be used senior living but should not be used in combination [...] after other remedies have failed. Among the uxgl-ujp-tmcrqlg laxatives, they are most likely to cause [...] psyllium (Perdiem ). Common Side Effects of Thry-tgy-Bmbvoxh Products for Constipation Emollient (Stool Softeners) Skin [...] any side effects listed. Prescription Products When oskm-egv-gmdqfpa remedies fail, your healthcare provider may recommend [...] Stimulant X Bisacodyl (Dulcolax ) Stimulant X Snowshoe Oil Stimulant X Cellulose (Unifiber ) Bulk [...] ) Stimulant X Adapted from: [facility] Website, accessed March 17, 2016, www.clareUPlanMe/[employer]/druginformation/ WN037124 Special Precautions For your safety, consult your [...] For more information and resources see https://www.parkinson.org/. [facility] is a Center of Excellence for the Parkinson s Foundation. documented in this encounterAdams County Hospital08-16-2023 History of Present illness Narrative* Marni Hudson MD - 07/07/2023 7:02 AM EDT [facility] - FOLLOW UP EVALUATION - VIRTUAL VISIT Felix Montelongo MD [address] [facility] [address] Dear Felix Montelongo MD: I had the pleasure of seeing Mr. Kline for follow-up today. As you know he is a 83 year old right-handed male with a history of ET/PD since 2015(?) . 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 He is seen alone. We had a visit using: [employer] I have communicated my name and active licensure. The patient's identity and physical location wereverified at the time of this visit. Either the patient or their legal in store marketing representative has been informed of the risks [...] to schedule and only given options of [place] or [place]. Open to [facility]. Constipation. Prunes used [...] 1 1 1 Level of service : 72365 (40-54 min). Time spent 41 min on the day of service, which included preparing to see the patient, khiq-uf-bmnh patient care, completing clinical documentation, and counseling and educating the patient/family/caregiver. Thank you for allowing me to be part of the clinical care of this patient! I look forward to continued participation in the patient s care with you. Please do not hesitate to call with any questions. Sincerely, Marni Hudson MD documented in this encounterAdams County Hospital03-31-2023 Miscellaneous Notes* Telephone Encounter - Caitlin Peacock MA - 02/19/2023 7:56 AM EDT Message therapy order mailed to patient home per Dr. Hudson request documented in this encounterAdams County Hospital03-31-2023 Instructions* Patient Instructions* Marni Hudson MD [...] or you can send a message through [employer]. You can also now schedule and select appointments through [employer]. Marni Hudson MD documented in this encounterAdams County Hospital03-31-2023 History of Present illness Narrative* Marni Hudson MD - 02/19/2023 7:02 AM EDT [facility] - FOLLOW UP EVALUATION - VIRTUAL VISIT Felix Montelongo MD, MD [address] [facility] [address] Dear Felix Montelongo MD, MD: I had the pleasure of seeing Mr. Kline for follow-up today. As you know he is a 82 year old right-handed male with a history of ET/PD since 2016(?) . 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 We had a visit using: [employer] I have communicated my name and active licensure. The patient's identity and physical location wereverified at the time of this visit. Either the patient or their legal in store marketing representative has been informed of the risks [...] 1 1 1 Level of service : 98861 ( 30-39 min). Time spent 30 min on the day of service, which included preparing to see the patient, fbzh-uc-hdyu patient care, completing clinical documentation, counseling and educating the patient/family/caregiver, and ordering medications, tests, or procedures. Thank you for allowing me to be part of the clinical care of this patient! I look forward to continued participation in the patient s care with you. Please do not hesitate to call with any questions. Sincerely, Marni Hudson MD documented in this encounterAdams County Hospital01-27-2023 Instructions* Patient Instructions* Marni Hudson MD [...] or you can send a message through [employer]. You can also now schedule and select appointments through [employer]. Marni Hudson MD documented in this encounterAdams County Hospital01-27-2023 History of Present illness Narrative* Marni Hudson MD - 12/18/2022 6:56 AM EST [facility] - FOLLOW UP EVALUATION - VIRTUAL VISIT Felix Montelongo MD, MD [address] [facility] [address] Dear Felix Montelongo MD, MD: I had the pleasure of seeing Mr. Kline for follow-up today. As you know he is a 82 year old right-handed male with a history of ET/PD since 2016(?) . 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 He is seen with a daughter. We had a visit using: [employer] I received consent from the patient to [...] 1 1 1 Level of service : 97644 (40-54 min). Time spent 51 min on the day of service, which included preparing to see the patient, owfc-pa-lapx patient care, completing clinical documentation, and counseling and educating the patient/family/caregiver. Thank you for allowing me to be part of the clinical care of this patient! I look forward to continued participation in the patient s care with you. Please do not hesitate to call with any questions. Sincerely, Marni Hudson MD documented in this encounterAdams County Hospital12-21-2022 Miscellaneous Notes* Telephone Encounter - Jazzy Bonds - 11/11/2022 9:17 AM EST Last FUV Jun 2022 with ANNA. Next FUV 12/17/22 with ANNA. documented in this encounterAdams County Hospital07-05-2022 Miscellaneous Notes* Telephone Encounter - Marlena Moya - 05/26/2022 1:[address] Hudson had an opening on 06/03/22. Added patient to schedule; notified him of appt details via voicemail and Si[employer] message. Marlena Moya * Telephone Encounter - [...] 9:06 AM Routing comment documented in this encounterAdams County Hospital05-04-2022 Miscellaneous Notes* Telephone Encounter - Sharron Higginbotham MA - 03/25/2022 1:55 PM EDT Called patient to get the pre-rooming intake. I left voice mail for a returned call to the office to have this completed. If patient returns call please transfer call to myself or another clinical staff member. Thanks! Sharron Higginbotham MA [facility]* Diagnosis Onset Date Resolution Status CKD (chronic kidney disease) chronic Edema chronic Fatigue chronic HTN (hypertension) chronic Hypothyroidism chronic Type II diabetes mellitus, uncontrolled chronic [facility] Work Phone: Evaluation note* Diagnosis Parkinson disease (HCC)- Primary Paralysis agitans Essential tremor Essential and other specified forms of tremor documented in this encounter [facility] note* Diagnosis Parkinson disease (HCC)- Primary Paralysis agitans Muscle stiffness Unspecified disorder of muscle, ligament, and fascia Muscle pain Mylagia and myositis, unspecified documented in this encounter [facility] note* Diagnosis Parkinson disease (HCC)- Primary Paralysis agitans Slow transit constipation documented in this encounter [facility] noteNo assessment information availableWAvita Health System Work Phone: Evaluation note* Diagnosis Controlled type 2 diabetes mellitus without complication, without long-term current use of insulin ([facility])- Primary Acquired hypothyroidism Unspecified hypothyroidism Parkinson's disease, unspecified whether dyskinesia present, unspecified whether manifestations fluctuate CIDP (chronic inflammatory demyelinating polyneuropathy) (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 documented in this encounter [facility] note* Diagnosis Coronary artery disease involving nulato coronary artery of nulato heart, unspecified whether angina present- Primary PAC (premature atrial contraction) Supraventricular premature beats PVC (premature ventricular contraction) Other premature beats Atrial tachycardia (HCC) Other specified cardiac dysrhythmias documented in this encounter [facility]* Diagnosis Primary hypertension- Primary Unspecified essential hypertension Coronary artery disease involving nulato coronary artery of nulato heart without angina pectoris documented in this encounter [facility] HospitalReason for referral (narrative)No reason for referral information availableWAvita Health System Work Phone: Summary Purpose Family History No [...] FoundDocuments on File Type Date Recorded Patient Executive Services Administrator Expl anation Advance Directive(s) 04/18/2021 8:33 AM Advance Directive(s) 02/24/2016 11:33 AM Advance Directive(s) 02/18/2016 4:39 PM Advance Directive Response Recorded Date/ Time Advance Directives No March 14 2:48pm Living Will No April 21, 2021 8 :41pm Power of Senior Engineering Technician No April 21, 2021 8:41pm Advance Directive Response Recorded Date/ Time Advance Directives No March 14 1:48pm Living Will No April 21, 2021 7 :41pm Power of Senior Engineering Technician No April 21, 2021 7:41pm Advance Directive Response Recorded Date/ Time Living Will No October 27 6:24pm Do you have a Healthcare Power of Senior Engineering Technician? 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 DIABETES INT LABS Reason for Visit [...] WORK November 30, 2024 5: 15am S/P [facility] 11/01November 30, 2024 9: 59am ADMISSION EXAM December 04, 2024 1 2:52pm [facility] December 07, 2024 5:00am ADMISSION EXAM December 19, 2024 1 :28pm NEW CONCERN December 21, 2024 2 :05pm NEW CONCERN December 26, 2024 1 :17pm [facility] January 04 5:00am NEW CONCERN January 04, 2025 12:35pm [facility] January 31, 2025 5 :00am [...] WORK November 30, 2024 5: 15am S/P [facility] 11/01November 30, 2024 9: 59am ADMISSION EXAM December 04, 2024 1 2:52pm [facility] December 07, 2024 5:00am ADMISSION EXAM December 19, 2024 1 :28pm NEW CONCERN December 21, 2024 2 :05pm NEW CONCERN December 26, 2024 1 :17pm [facility] January 04 5:00am NEW CONCERN January 04, 2025 12:35pm [facility] January 31, 2025 5 :00am 21 M FU RS 10/26 CX 10/31February 27 10:51am [facility] February 28, 2025 5: 00am [...] 27, 2025 10:51am Chief Complaint Admit Date [facility] December 07, 2024 5:00am ADMISSION EXAM December 19, 2024 1 :28pm NEW CONCERN December 21, 2024 2 :05pm NEW CONCERN December 26, 2024 1 :17pm [facility] January 04 5:00am NEW CONCERN January 04, 2025 12:35pm [facility] January 31, 2025 5 :00am NEW CONCERN February 26, 2025 3:51 pm 21 M FU RS 10/26 CX 10/31February 27 10:51am [facility] WORK February 28, 2025 5: 00am [...] HIGH MDM 60-74 MINUTES Marni Hudson MD [facility] [address] [address] Referral ID Status Reason Start Date Expiration Date Visits Requested Visits Authorized [id number] Pending Review PCP Requested Referral 02/15/2023 12/18/2023 1 1 Specialty Diagnoses / Procedures Referred By Contac t Referred To Contact Diagnoses Parkinson disease (HCC) Procedures PROVIDER ORDERED FOLLOW UP OFFICE/OUTPATIENT NEW HIGH MDM 60-74 MINUTES Marni Hudson MD [address] [place] [address] Referral ID Status Reason Start Date Expiration Date Visits Requested Visits Authorized [id number] Pending Review PCP Requested Referral 05/21/2023 02/19/2024 1 1 Specialty Diagnoses / Procedures Referred By Contac t Referred To Contact Diagnoses Parkinson disease (HCC) Muscle stiffness Muscle pain Procedures CONSULT TO MASSAGE THERAPY OFFICE/OUTPATIENT NEW HIGH MDM 60-74 MINUTES Marni Hudson MD [address] [place] [address] Referral ID Status Reason Start Date Expiration Date Visits Requested Visits Authorized [id number] Pending Review PCP Requested Referral 02/19/2023 02/19/2024 1 1 Referral ID Status Reason Start Date Expiration Date Visits Requested Visits Authorized [id number] Pending Review PCP Requested Referral 07/06/2024 1 1 Specialty Diagnoses / Procedures Referred By Contac t Referred To Contact Diagnoses Parkinson disease (HCC) Procedures CONSULT TO MASSAGE THERAPY OFFICE/OUTPATIENT NEW HIGH MDM 60-74 MINUTES Marni Hudson MD [address] [place] [address] Referral ID Status Reason Start Date Expiration Date Visits Requested Visits Authorized [id number] Pending Review PCP Requested Referral 07/07/2023 07/06/2024 1 1 Specialty Diagnoses / Procedures Referred By Contac t Referred To Contact [facility] Diagnoses Parkinson disease (HCC) Procedures CONSULT TO PHYSICAL THERAPY PHYSICAL THERAPY EVALUATION HIGH COMPLEX 45 MINS Marni Hudson MD [address] [address] [facility] [address] [address] Referral ID Status Reason Start Date Expiration Date Visits Requested Visits Authorized [id number] Pending Review Auto-Generat ed Referral 07/07/2023 07/06/2024 1 1 Additional Source Comments (unrecognized sect ion and content) No Status Records FoundNo Status Records FoundNo Status Records FoundNo Status Records FoundNo Status Records FoundNo Status Records Found INFORMATION SOURCE (unrecogn ized section and content) DATE CREATED AUTHOR 05/12/2018 [facility] DATE CREATED AUTHOR AUTHOR'S ORGANIZ ATION 07/11/2021 [facility] DATE CREATED AUTHOR AUTHOR'S ORGANIZ ATION 07/21/2021 [employer] DATE CREATED AUTHOR AUTHOR'S ORGANIZ ATION 03/04/2025 [facility] d[facility] DATE CREATED AUTHOR AUTHOR'S ORGANIZ ATION 03/06/2025 [facility] DATE CREATED AUTHOR AUTHOR'S ORGANIZ ATION 04/26/2025 [facility] Source Comments (unrecognize d section and content) In the event this informatio n is protected by the Federal Confidentiality of Alcohol and Drug Abuse Patient Records regulations: The Federal rules restrict any use of the information to criminally investigate or prosecute any alcohol or drug abuse patient.[facility] HospitalIn the event this information is protected by the Federal Confidentiality of Alcohol and Drug Abuse Patient Records regulations: The Federal rules restrict any use of the information to criminally investigate or prosecute any alcohol or drug abuse patient.[facility] HospitalIn the event this information is protected by the Federal Confidentiality of Alcohol and Drug Abuse Patient Records regulations: The Federal rules restrict any use of the information to criminally investigate or prosecute any alcohol or drug abuse patient.[facility] HospitalIn the event this information is protected by the Federal Confidentiality of Alcohol and Drug Abuse Patient Records regulations: The Federal rules restrict any use of the information to criminally investigate or prosecute any alcohol or drug abuse patient.[facility] HospitalIn the event this information is protected by the Federal Confidentiality of Alcohol and Drug Abuse Patient Records regulations: The Federal rules restrict any use of the information to criminally investigate or prosecute any alcohol or drug abuse patient.[facility] HospitalIn the event this information is protected by the Federal Confidentiality of Alcohol and Drug Abuse Patient Records regulations: The Federal rules restrict any use of the information to criminally investigate or prosecute any alcohol or drug abuse patient.[facility] HospitalIn the event this information is protected by the Federal Confidentiality of Alcohol and Drug Abuse Patient Records regulations: The Federal rules restrict any use of the information to criminally investigate or prosecute any alcohol or drug abuse patient.[facility] HospitalIn the event this information is protected by the Federal Confidentiality of Alcohol and Drug Abuse Patient Records regulations: The Federal rules restrict any use of the information to criminally investigate or prosecute any alcohol or drug abuse patient.[facility] HospitalIn the event this information is protected by the Federal Confidentiality of Alcohol and Drug Abuse Patient Records regulations: The Federal rules restrict any use of the information to criminally investigate or prosecute any alcohol or drug abuse patient.[facility] HospitalIn the event this information is protected by the Federal Confidentiality of Alcohol and Drug Abuse Patient Records regulations: The Federal rules restrict any use of the information to criminally investigate or prosecute any alcohol or drug abuse patient.[facility] HospitalIn the event this information is protected by the Federal Confidentiality of Alcohol and Drug Abuse Patient Records regulations: The Federal rules restrict any use of the information to criminally investigate or prosecute any alcohol or drug abuse patient.[facility] HospitalIn the event this information is protected by the Federal Confidentiality of Alcohol and Drug Abuse Patient Records regulations: The Federal rules restrict any use of the information to criminally investigate or prosecute any alcohol or drug abuse patient.[facility] HospitalIn the event this information is protected by the Federal Confidentiality of Alcohol and Drug Abuse Patient Records regulations: The Federal rules restrict any use of the information to criminally investigate or prosecute any alcohol or drug abuse patient.[facility] HospitalIn the event this information is protected by the Federal Confidentiality of Alcohol and Drug Abuse Patient Records regulations: The Federal rules restrict any use of the information to criminally investigate or prosecute any alcohol or drug abuse patient.[facility] HospitalIn the event this information is protected by the Federal Confidentiality of Alcohol and Drug Abuse Patient Records regulations: The Federal rules restrict any use of the information to criminally investigate or prosecute any alcohol or drug abuse patient.[facility] HospitalIn the event this information is protected by the Federal Confidentiality of Alcohol and Drug Abuse Patient Records regulations: The Federal rules restrict any use of the information to criminally investigate or prosecute any alcohol or drug abuse patient.[facility] HospitalIn the event this information is protected by the Federal Confidentiality of Alcohol and Drug Abuse Patient Records regulations: The Federal rules restrict any use of the information to criminally investigate or prosecute any alcohol or drug abuse patient.[facility] HospitalIn the event this information is protected by the Federal Confidentiality of Alcohol and Drug Abuse Patient Records regulations: The Federal rules restrict any use of the information to criminally investigate or prosecute any alcohol or drug abuse patient.[facility] Reason for Visit (unrecogniz ed section and content) Reason Comments upcoming appointment pre-rooming phone c all Reason Comments Opened In Error Reason Comments Opened In Error Reason Comments Telemedicine Specialty Diagnoses / Procedures Referred By Contac t Referred To Contact Diagnoses Parkinson disease (HCC) Gait instability Procedures PROVIDER ORDERED FOLLOW UP OFFICE/OUTPATIENT NEW HIGH [facility] 60-74 MINUTES Marni Hudson MD [address] [address] Referral ID Status Reason Start Date Expiration Date V isits Requested Visits Authorized [id number] Closed PCP Requested Referral 06/29/2022 09/27/2022 1 1 Reason Comments Orders Mailed orders Reason Comments Telemedicine Follow Up Specialty Diagnoses / Procedures Referred By Contac t Referred To Contact Diagnoses Parkinson disease (HCC) Essential tremor Procedures PROVIDER ORDERED FOLLOW UP OFFICE/OUTPATIENT NEW HIGH MDM 60-74 MINUTES Marni Hudson MD [address] [address] Referral ID Status Reason Start Date Expiration Date Visits Requested Visits Authorized [id number] Pending Review PCP Requested Referral 02/15/2023 12/18/2023 [...] Care Teams (unrecognized sec tion and content) Crap Shooter Relationship Specialty Start Date End Date Felix Montelongo [address] [place] [address] PCP - General Unspecified 02/04/16 Anupama Feng DO Internal Medicine 12/29/12 Cali Still MD Primary Staff Physician Cardiology 02/07/19 Crap Shooter Relationship Specialty Start Date End Date Felix Montelongo MD [address] [facility] [place] [address] PCP - General Unspecified 02/04/16 Anupama Feng, DO Internal Medicine 12/29/12 Cali Still MD Primary Staff Physician Cardiology 02/07/19 Crap Shooter Relationship Specialty Start Date End Date Felix Montelongo MD [address] [facility], [place] [address] PCP - General Unspecified 02/04/16 Anupama Feng, DO Internal Medicine 12/29/12 Cali Still MD Primary Staff Physician Cardiology 02/07/19 Crap Shooter Relationship Specialty Start Date End Date Felix Montelongo MD [address] [facility] [place] [address] PCP - General Unspecified 02/04/16 Anupama Feng, DO Internal Medicine 12/29/12 Cali Still MD [address] [place], [place] [id number] Primary Staff Physician Cardiology 02/07/19 Crap Shooter Relationship Specialty Start Date End Date Felix Montelongo MD [address] [place], [place] [id number] PCP - General Unspecified 02/04/16 Anupama Feng, DO Internal Medicine 12/29/12 Cali Still MD [address] [place] [address] Primary Staff Physician Cardiology 02/07/19 Crap Shooter Relationship Specialty Start Date End Date Felix Montelongo MD [address] [place] [address] PCP - General Unspecified 02/04/16 Anupama Feng DO Internal Medicine 12/29/12 Cali Still MD [address] [place] [address] Primary Staff Physician Cardiology 02/07/19 Crap Shooter Relationship Specialty Start Date End Date Felix Montelongo MD [address] [place] [address] PCP - General Unspecified 02/04/16 Anupama Feng DO Internal Medicine 12/29/12 Cali Still MD [address] [place] [address] [id number] Primary Staff Physician Cardiology 02/07/19 Crap Shooter Relationship Specialty Start Date End Date Felix Montelongo MD [address] [place] [address] PCP - General Unspecified 02/04/16 Anupama Feng DO Internal Medicine 12/29/12 Cali Still MD [address] [place] [address] Primary Staff Physician Cardiology 02/07/19 Team Status: Active Member Role Status Dates Dr. Barrett Avalos MD Family Provider Active Dr. Felix Montelongo MD Primary Care Provider Active Team Status: Inactive Member Role Status Dates Dr. Felix Montelongo MD Primary Care Provider Active RUDDY ANGLIN Attending Provider, Referring Provid er Active Crap Shooter Relationship Specialty Start Date End Date Felix Montelongo MD [address] [place] [address] PCP - General Unspecified 02/04/16 Anupama Feng DO Internal Medicine 12/29/12 Cali Still MD [address] [place] [address] Primary Staff Physician Cardiology 02/07/19 Marni Hudson MD [address] [address] Specialty [employer] Neurology 11/10/23 Crap Shooter Relationship Specialty Start Date End Date Felix Montelongo MD [address] [place] [address] PCP - General Unspecified 02/04/16 Anupama Feng DO Internal Medicine 12/29/12 Cali Still MD [address] [place] [address] Primary Staff Physician Cardiology 02/07/19 Marni Hudson MD [address] [address] Specialty [employer] Neurology 11/10/23 Crap Shooter Relationship Specialty Start Date End Date Felix Montelongo MD [address] [place] [address] PCP - General Unspecified 02/04/16 Anupama Feng DO Internal Medicine 12/29/12 Cali Still MD [address] [place] [address] Primary Staff Physician Cardiology 02/07/19 Marni Hudson MD [address] [address] Specialty [employer] Neurology 11/10/23 Crap Shooter Relationship Specialty Start Date End Date Rocío Wagner PA-C [address] [place] [address] PCP - General Family Medicine 02/01/24 Anupama Feng DO Internal Medicine 12/29/12 Cali Still MD Primary Staff Physician Cardiology 02/07/19 Marni Hudson MD [address] [address] Specialty [employer] Neurology 11/10/23 Crap Shooter Relationship Specialty Start Date End Date Vincent Espinosa MD [address] [place] [address] PCP - General Internal Medicine 02/29/24 Anupama Feng DO Internal Medicine 12/29/12 Cali Still MD Primary Staff Physician Cardiology 02/07/19 Marni Hudson MD [address] [address] Specialty [employer] Neurology 11/10/23 Crap Shooter Relationship Specialty Start Date End Date Vincent Espinosa MD [address] [place] [address] PCP - General Internal Medicine 02/29/24 Anupama Feng DO Internal Medicine 12/29/12 Cali Still MD Primary Staff Physician Cardiology 02/07/19 Marni Hudson MD [address] [address] Specialty [employer] Neurology 11/10/23 Rocío Wagner PA-C [address] [place] [address] Wet Process [facility] 10/29/24 Sheela Cochran APRN.[employer] [address] [place] [address] Wet Process [facility] 10/29/24 Janine Daugherty PA-C [address] [place] [address] Wet Process [facility] 10/29/24 Crap Shooter Relationship Specialty Start Date End Date Vincent Espinosa MD [address] [place], [place] [address] PCP - General Internal Medicine 02/29/24 Anupama Feng DO Internal Medicine 12/29/12 Cali Still MD Primary Staff Physician Cardiology 02/07/19 Marni Hudson MD [address] [address] Specialty [employer] Neurology 11/10/23 Rocío Wagner PA-C [address] [place] [address] [facility] 10/29/24 Sheela Cochran APRN.[employer] [address] [place] [address] Wet Process [facility] 10/29/24 Janine Daugherty PA-C [address] [place] [address] Wet Process [facility] 10/29/24 Team Status: Inactive Member [...] End: November 02, 2024 Abeba Peacock NP, QUALITY IMPROVEMENT MANAGER-C Attending Provider Active Start: November 02, 2024 [...] 2024 End: December 04, 2024 Abeba Peacock QUALITY IMPROVEMENT MANAGER, QUALITY IMPROVEMENT MANAGER-C Attending Provider Active Start: December 04, 2024 [...] Status: Inactive Member Role Status Dates Dr. Feilx Montelongo MD Primary Care Provider Active Start: December 21, 2024 End: December 21, 2024 Abeba Peacock NP, QUALITY IMPROVEMENT MANAGER-C Attending Provider Active Start: December 21, 2024 [...] End: January 04, 2025 Abeba Peacock NP, QUALITY IMPROVEMENT MANAGER-C Attending Provider Active Start: January 04, 2025 End: January 04, 2025 Team Status: Inactive Member Role Status Dates Dr. Felix Montelongo MD Primary Care Provider Active Start: January 31, 2025 End: January 31, 2025 Buzz ZHANG MD Attending Provider Active Start: January 31, 2025 End: January 31, 2025 Crap Shooter Relationship Specialty Start Date End Date Vincent Espinosa MD [address] [place] [address] PCP - General Internal Medicine 02/29/24 Anupama Feng DO Internal Medicine 12/29/12 Cali Still MD Primary Staff Physician Cardiology 02/07/19 Marni Hudson MD [address] [address] Specialty [employer] Neurology 11/10/23 Sheela Cochran APRN.[employer] [address] [place], [place] [id number] Wet Process [facility] 10/29/24 Crap Shooter Relationship Specialty Start Date End Date Vincent Espinosa MD [address] [place], [place] [id number] PCP - General Internal Medicine 02/29/24 Anupama Feng DO Internal Medicine 12/29/12 Cali Still MD Primary Staff Physician Cardiology 02/07/19 Marni Hudson MD [address] [address] Specialty [employer] Neurology 11/10/23 Sheela Cochran APRN.[employer] [address] [place], [place] [id number] [facility] Internal Medicine 10/29/24 Team Status: Inactive [...] End: February 26, 2025 Abeba Peacock NP, QUALITY IMPROVEMENT MANAGER-C Attending Provider Active Start: February 26, 2025 [...] BE BASED ON THE PRIMARY CLINICAL RECORDS. [employer] provides no warranty or guarantee of the accuracy or completeness of information in this document.
[2025-05-02 08:23] LABS: Hemoglobin A1c 8.3 % (<=5.6)
[2025-05-02 15:54] LABS: AST(SGOT) 30 U/L (<=37); Alanine Aminotransfer ALT/SGPT 46 U/L (<=46); Alkaline Phosphatase 57 U/L (40-129); Globulin 2.2 g/dL (2.2-4.2); Protein, Total 6.1 g/dL (5.9-8.4); Total Bilirubin 0.57 mg/dL (0.00-1.30); Vitamin D,25 Hydroxy 34.8 ng/mL (30-100)
== END ==
LOC: OLS.WHLTSB 05:00
PROVIDERS: PCP Family Medicine Geriatric Medicine; Visit Provider Internal Medicine
DX: E78.5 Hyperlipidemia, unspecified (principal); G20.A1 Parkinson's disease without dyskinesia, without mention of fluctuations
CPT/HCPCS: 80076; 82306; 83036; 83735

== ENCOUNTER → 2025-05-03 05:00 | Outpatient (REF) | payer MEDICARE, SELFPAY ==
[2020-03-14 14:48] VITALS: BMI 28.1
--- OUTSIDE RECORDS SUMMARY | 2025-05-03 04:22 | XMS RPT_ITS | CCD ---
Author Organization [facility] CliniSyut Care Team Providers Care Cuff Maker Name Role Phone NICOLA PAYNE Unavailable Unavailable [...] Unavailable Bernard HILLIARD, Rocío L Unavailable Older LINEN FOLDER.RN TELEPHONE TRIAGE, Sheela Unavailable Janine Daugherty PA-C Unavailable Jayda [...] Provider Dr. Felix Montelongo MD Referring Provider [phone] Dr. Margie Gary MD Attending Provider SLEIK, [...] Rainey MD Attending Provider Unavaila ble [place]ickton FINAL ARMATURE TESTER-C, Abeba Attending Provider Redd SHAW, Dr. Gerber Attending Provider King VALERIA, Dr. Preciado Attending Provider Jayda SHAW, Dr. [place] Primary Care Provider Buzz Rainey MD Attending Provider Unavaila ble [place] FINAL ARMATURE TESTER-C, Abeba Attending Provider Jayda SHAW, Dr. [place] Referring Provider Cody Conleybe Attending Unavailabl e Jayda, Felix [...] e Jayda, Felix Primary Care Unavailable [place] FINAL ARMATURE TESTER, Abeba Attending Unavailable Jayda, Felix Primary Care Unavailable [place] FINAL ARMATURE TESTER, Abeba Attending Unavailable Jayda, Felix Primary Care Unavailable [place] FINAL ARMATURE TESTER, Abeba Attending Unavailable Jayda, Felix Primary Care Unavailable Olemke Efewongbe Attending Unavailable Jayda, Felix Primary Care Unavailable [place] FINAL ARMATURE TESTER, Abeba Attending Unavailable Jayda, Felix Primary Care Unavailable Marige Gary Attending Unavailable Jayda, Felix Primary Care Unavailable Jayda, Felix Referring Unavailable Jayda, Felix Primary Care Unavailable Cody Conleybe Attending Unavailabl lana Cali[place]o FINAL ARMATURE TESTER, Rita Schwartz Attending Unavailabl e Jayda, Felix [...] e Jayda, Felix Primary Care Unavailable Durga FINAL ARMATURE TESTER, Rita Schwartz Consulting Unavailabl e Jayda, Felix Primary Care Unavailable Durga FINAL ARMATURE TESTER, Rita Schwartz Attending Unavailabl e Jayda, Felix [...] adverse reactions (disorder) 0 Shortness of Breath [facility] Repository (6 sources) Beta-Blockers (Beta-Adrenergi c Bloc; Translations: [Beta-Blockers (Beta-Adrenergi c Bloc] Allergy to substance 2 ANGIOEDEMA [facility] Medications Current Medications Medication Drug Class(es) Dates [...] Comment on above: Take 2 tablets by [facility] three times daily. cholecalciferol 0.025 mg [...] Comment on above: Take 1 tablet by [facility] once daily. DULoxetine 20 mg delayed release oral capsule (3 sources) Serotonin and Norepinephrine Reuptake Inhibitor Start: 07-06-20 End: 07-06-20 23 take 1 capsule by mouth once daily DULoxetine (CYMBALTA) 20 mg capsule Take 1 capsule by mouth once daily. 30 capsule 11 07/06/2022 12/18/2022 Discontinued Comment on above: Take 1 capsule by [facility] once daily. finasteride 5 mg oral [...] Start: 05-15-2021 take 2 tablets by mo [facility] twice daily at mealtime Glimepiride 1 MG [...] Active Start: 05-15-2021 take 1 tablet by bahskar th once daily Lisinopril 10 MG Oral [...] Comment on above: Take 1 capsule by [facility] once daily. VIT B COMPLEX 100 [...] 05-03-2020 Blood-Glucose Meter (Accu-Chek Bettina Plus Meter) [facility] Active 0 .ROUTE .MEDSUPPLY 200 May 03, [...] disease (20 sources) Atherosclerotic heart disease of [place] coronary artery without angina pectoris; Translations: [Coronary [...] X 8 Promus Synergy per DJN @ [facility]07/20/2018:JACQUELINE of mid [place] RPL branch, 3.0 X 16 Promus Synergy ; JACQUELINE of distal SVG to RCA, 2.5 X 20 Promus Synergy per DJN @ [facility] Nonspecific chest pain (12 sources) Chest [...] Auto (Unsp spec) [#/Vol] 0.83 10*3/uL 0.83-4.51 [facility] Absolute neutrophil countOrd ered By: Buzz Rainey on 03-29-2025 Neutrophils (Bld) [#/Vol] 2.7 10*3/uL 2.0-7.7 [facility] Anion gap in Serum or Plasma Ordered By: Buzz Rainey on 03-29-2025 Anion gap [Moles/Vol] 11 mmol/L 5-15 [facility] Automated lymphocyte count a s percentage of total leukocytesOrdered By: Buzz Rainey on 03-29-2025 Lymphocytes/100 WBC Auto (Unsp spec) 19.5 % 19-41 [facility] BUN/creatinine ratioOrdered By: Buzz Rainey on 03-29-2025 Urea nitrogen/Creatinine [Mass ratio] 30.3 mg/mg High 10-20 [facility] Basophil percentageOrdered B y: Buzz Rainey on 03-29-2025 Basophils/100 WBC (Bld) 0.7 % 0-1 [facility] Carbon dioxide, total [Moles /volume] in Central venous bloodOrdered By: Buzz Rainey on 03-29-2025 CO2 [Moles/Vol] 22.7 mmol/L 21.0-32.0 [facility] Chloride assayOrdered By: Alexandra Rainey on 03-29-2025 Chloride [Moles/Vol] 103 mmol/L 98-108 [facility] Eosinophil percentageOrdered By: Buzz Rainey on 03-29-2025 Eosinophils/100 WBC (Bld) 4.0 % 0-5 [facility] Erythrocyte distribution wid th ratioOrdered By: yumikolarimoreestrella Rainey on 03-29-2025 Erythrocyte distribution width (RBC) [Ratio] 12.0 % 11.6-14.6 [facility] Erythrocyte distribution wid th standard deviationOrdered By: Buzz Rainey on 03-29-2025 Erythrocyte distribution width (RBC) [Ratio] 43.5 fl 35.1-43.9 [facility] Glomerular filtration rate ( GFR) estimation/1.73 sq m using serum, plasma, or whole bOrdered By: Buzz Rainey on 03-29-2025 GFR/1.73 sq M.predicted among non-blacks MDRD (S/P/Bld) [Vol rate/Area] 57 mL/min/{1.73_m2} Low >60 [facility] Comment on above: mL/min/1.73m2 CKD-EP I Creatinine Equation (2020) Hematocrit Auto (Bld) [Volum e fraction]Ordered By: Buzz Rainey on 03-29-2025 Hematocrit (Bld) [Volume fraction] 35.5 % Low 40-54 [facility] Hemoglobin measurementOrdere d By: Buzz Rainey on 03-29-2025 Hemoglobin (Bld) [Mass/Vol] 12.1 g/dL Low 13.0-16.5 [facility] Immature granulocytes/100 WB C Auto (Bld)Ordered By: Buzz Rainey on 03-29-2025 Immature granulocytes/100 WBC (Bld) 0.000 % 0.0-0.9 [facility] Comment on above: IG% - Immature Granu locytes (promyelocytes, myelocytes and metamyelocytes) > 1% indicates that a LEFT SHIFT is Present. MCV (mean corpuscular volume ) determinationOrdered By: Buzz Rainey on 03-29-2025 MCV (RBC) [Entitic vol] 98.3 fL High 80-94 [facility] Mean corpuscular hemoglobin (MCH) determinationOrdered By: yumikolarimoreestrella Rainey on 03-29-2025 MCH (RBC) [Entitic mass] 33.5 pg High 27.0-32.0 [facility] Mean corpuscular hemoglobin concentration (MCHC) determinationOrdered By: yumikolarimoreestrella Rainey on 03-29-2025 MCHC (RBC) [Mass/Vol] 34.1 g/dL 32-36 [facility] Mean platelet volume determi nationOrdered By: Buzz Rainey on 03-29-2025 Platelet mean volume (Bld) [Entitic vol] 10.4 fL 6.2-12.0 [facility] Monocyte percentageOrdered B y: Buzz Rainey on 03-29-2025 Monocytes/100 WBC (Bld) 12.2 % High 0-10 [facility] Neutrophil percentageOrdered By: tamanna Rainey on 03-29-2025 Neutrophils/100 WBC (Bld) 63.6 % 47-70 [facility] Nucleated red blood cell per centageOrdered By: Buzz Rainey on 03-29-2025 Nucleated RBC/100 WBC (Bld) [Ratio] 0 % 0-5 [facility] Platelet countOrdered By: Alexandra Rainey on 03-29-2025 Platelets (Bld) [#/Vol] 182 10*3/uL 150-450 [facility] Potassium measurement (mass/ volume)Ordered By: Buzz Rainey on 03-29-2025 Potassium (Unsp spec) [Mass/Vol] 4.8 mmol/L 3.3-5.1 [facility] RBC Auto (Bld) [#/Vol]Ordere d By: Buzz Rainey on 03-29-2025 RBC (Bld) [#/Vol] 3.61 10*6/uL Low 4.6-6.2 [facility] Serum creatinine measurement (mass/volume)Ordered By: Buzz Rainey on 03-29-2025 Creatinine [Mass/Vol] 1.25 mg/dL High 0.70-1.20 [facility] Serum glucose measurement (m ass/volume)Ordered By: Buzz Rainey on 03-29-2025 Glucose [Mass/Vol] 269 mg/dL High 70-99 [facility] Serum or plasma calcium jesenia urement (mass/volume)Ordered By: Buzz Rainey on 03-29-2025 Calcium [Mass/Vol] 9.0 mg/dL 7.6-11.0 [facility] Serum or plasma urea nitroge n measurement (mass/volume)Ordered By: Buzz Rainey on 03-29-2025 Urea nitrogen [Mass/Vol] 38 mg/dL High 4-19 [facility] Sodium levelOrdered By: Otilia baileyjovan Redd on 03-29-2025 Sodium [Moles/Vol] 136 mmol/L 133-145 [facility] White blood cell (WBC) count Ordered By: Buzz Rainey on 03-29-2025 WBC (Bld) [#/Vol] 4.3 10*3/uL Low 4.4-11.0 [facility] CNOVon 2025 CNOV Office Visit (CARDWS ) FLEX KLINE ([id number]) 1940 M Date Time Provider Department 03/05/25 11:00 AM HARJINDER JONES During your visit today, we recorded the following information about you: Pulse Respiration Blood pressure Weight 82/minute 16/minute 138/60 81.6 kg Height 1.765 m Harjinder Jones MD 2025 12:16 PM Signed Harjinder Jones MD Interventional Cardiology [address] [place] [address] [phone] Chief Complaint Patient presents with: Follow Up: 6 week follow up, c/o chest pain HISTORY OF PRESENT ILLNESS: Mr. Kline is a 85 year old male seen in my office today for follow-up patient had a prior history of severe [place] coronary artery disease with prior history of [...] meals. FOL (more content not included)... Normal [facility] CNOVon 03-02-2025 CNOV Office Visit (AGCARDPOB) FLEX KLINE ([id number]) 1940 M Date Time Provider Department 03/02/25 10:20 AM KWAN ESTRELLA AGCARDPOKevon During your visit today, we recorded the following information about you: Pulse Blood pressure Weight 69/minute 113/63 81.6 kg Kwan Estrella MD 03/02/2025 11:18 AM Signed [facility] [place] [facility] SECTION OF CARDIAC PACING and ELECTROPHYSIOLOGY OUTPATIENT VISIT DATE March 02, 2025 OUTPATIENT VISIT TYPE NEW PRIMARY CARE PHYSICIAN: Vincent Espinosa [address] [place] [address] REFERRING PHYSICIAN: Harjinder Jones [address] [facility], [address] [facility] [id number] chief complaint on file. HISTORY OF PRESENT [...] currently a resident at [facility]. Had a recent UTI in 10/2024, still [...] fibrillation ECG 11/29/23 - SR 77 bpm UT 210 QRS 102 QT/c 364 411 PVC [...] rare (<1.0%). Isolated VEs were rare (<1.0%, 30644), VE Couplets were rare (<1.0%, 63), and [...] No Fa (more content not included)... Normal [facility] ECG B/O W INTERP (MED OFFICE )on 03-02-2025 .Sinus rhythm 68 bpm UT 264ms First degree AVB QRS 96ms QT/c 398/423ms nl Qrs morphology and early repol change in 2.3.aVF [facility] Absolute lymphocyte countOrd ered By: Buzz Rainey on 03-01-2025 Lymphocytes Auto (Unsp spec) [#/Vol] 0.88 10*3/uL 0.83-4.51 [facility] Absolute neutrophil countOrd ered By: Buzz Rainey on 03-01-2025 Neutrophils (Bld) [#/Vol] 4.2 10*3/uL 2.0-7.7 [facility] Anion gap in Serum or Plasma Ordered By: Buzz Rainey on 03-01-2025 Anion gap [Moles/Vol] 13 mmol/L 5-15 [facility] Automated lymphocyte count a s percentage of total leukocytesOrdered By: Buzz Rainey on 03-01-2025 Lymphocytes/100 WBC Auto (Unsp spec) 14.9 % Low 19-41 [facility] BUN/creatinine ratioOrdered By: Eftamanna De La Pazmklana on 03-01-2025 Urea nitrogen/Creatinine [Mass ratio] 37.1 mg/mg High 10-20 [facility] Basophil percentageOrdered B y: Buzz Brainmklana on 03-01-2025 Basophils/100 WBC (Bld) 0.7 % 0-1 [facility] Carbon dioxide, total [Moles /volume] in Central venous bloodOrdered By: Alexandratamanna De La Pazmklana on 03-01-2025 CO2 [Moles/Vol] 21.5 mmol/L 21.0-32.0 [facility] Chloride assayOrdered By: Alexandra kenestrella De La Pazmklana on 03-01-2025 Chloride [Moles/Vol] 104 mmol/L 98-108 [facility] Eosinophil percentageOrdered By: Alexandrayumikoarthur Brainmklana on 03-01-2025 Eosinophils/100 WBC (Bld) 3.7 % 0-5 [facility] Erythrocyte distribution wid th ratioOrdered By: Alexandrayumikoarthur Brainmklana on 03-01-2025 Erythrocyte distribution width (RBC) [Ratio] 11.9 % 11.6-14.6 [facility] Erythrocyte distribution wid th standard deviationOrdered By: yumikolarimoreestrella De La Pazmklana on 03-01-2025 Erythrocyte distribution width (RBC) [Ratio] 43.6 fl 35.1-43.9 [facility] Glomerular filtration rate ( GFR) estimation/1.73 sq m using serum, plasma, or whole bOrdered By: Alexandratamanan De La Pazmklana on 03-01-2025 GFR/1.73 sq M.predicted among non-blacks MDRD (S/P/Bld) [Vol rate/Area] 61 mL/min/{1.73_m2} >60 [facility] Comment on above: mL/min/1.73m2 CKD-EP I Creatinine Equation (2020) Hematocrit Auto (Bld) [Volum e fraction]Ordered By: Buzz Raieny on 03-01-2025 Hematocrit (Bld) [Volume fraction] 40.7 % 40-54 [facility] Hemoglobin measurementOrdere d By: Buzz Rainey on 03-01-2025 Hemoglobin (Bld) [Mass/Vol] 13.9 g/dL 13.0-16.5 [facility] Immature granulocytes/100 WB C Auto (Bld)Ordered By: Buzz Rainey on 03-01-2025 Immature granulocytes/100 WBC (Bld) 0.200 % 0.0-0.9 [facility] Comment on above: IG% - Immature Granu locytes (promyelocytes, myelocytes and metamyelocytes) > 1% indicates that a LEFT SHIFT is Present. MCV (mean corpuscular volume ) determinationOrdered By: Buzz Rainey on 03-01-2025 MCV (RBC) [Entitic vol] 99.5 fL High 80-94 [facility] Mean corpuscular hemoglobin (MCH) determinationOrdered By: Buzz Rainey on 03-01-2025 MCH (RBC) [Entitic mass] 34.0 pg High 27.0-32.0 [facility] Mean corpuscular hemoglobin concentration (MCHC) determinationOrdered By: Buzz Rainey on 03-01-2025 MCHC (RBC) [Mass/Vol] 34.2 g/dL 32-36 [facility] Mean platelet volume determi nationOrdered By: Buzz Rainey on 03-01-2025 Platelet mean volume (Bld) [Entitic vol] 10.4 fL 6.2-12.0 [facility] Monocyte percentageOrdered B y: Buzz Rainey on 03-01-2025 Monocytes/100 WBC (Bld) 8.5 % 0-10 [facility] Neutrophil percentageOrdered By: Buzz Rainey on 03-01-2025 Neutrophils/100 WBC (Bld) 72.0 % High 47-70 [facility] Nucleated red blood cell per centageOrdered By: Buzz Rainey on 03-01-2025 Nucleated RBC/100 WBC (Bld) [Ratio] 0 % 0-5 [facility] Platelet countOrdered By: Alexandra Rainey on 03-01-2025 Platelets (Bld) [#/Vol] 213 10*3/uL 150-450 [facility] Potassium measurement (mass/ volume)Ordered By: Buzz Rainey on 03-01-2025 Potassium (Unsp spec) [Mass/Vol] 4.5 mmol/L 3.3-5.1 [facility] RBC Auto (Bld) [#/Vol]Ordere d By: Buzz Rainey on 03-01-2025 RBC (Bld) [#/Vol] 4.09 10*6/uL Low 4.6-6.2 [facility] Serum creatinine measurement (mass/volume)Ordered By: Buzz Rainey on 03-01-2025 Creatinine [Mass/Vol] 1.19 mg/dL 0.70-1.20 [facility] Serum glucose measurement (m ass/volume)Ordered By: Buzz Rainey on 03-01-2025 Glucose [Mass/Vol] 152 mg/dL High 70-99 [facility] Serum or plasma calcium jesenia urement (mass/volume)Ordered By: Buzz Rainey on 03-01-2025 Calcium [Mass/Vol] 9.5 mg/dL 7.6-11.0 [facility] Serum or plasma urea nitroge n measurement (mass/volume)Ordered By: Buzz Rainey on 03-01-2025 Urea nitrogen [Mass/Vol] 44 mg/dL High 4-19 [facility] Sodium levelOrdered By: Otilia baileyjovan Redd on 03-01-2025 Sodium [Moles/Vol] 138 mmol/L 133-145 [facility] White blood cell (WBC) count Ordered By: Buzz Rainey on 03-01-2025 WBC (Bld) [#/Vol] 5.9 10*3/uL 4.4-11.0 [facility] Bilirubin Test strip Ql (U)O rdered By: Buzz Rainey on 02-28-2025 Bilirubin Ql (U) Negative Negative [facility] Ketones Test strip Ql (U)Ord ered By: Buzz Rainey on 02-28-2025 Ketones Ql (U) Negative Negative [facility] Nitrite Test strip Ql (U)Ord ered By: Buzz Rainey on 02-28-2025 Nitrite Ql (U) Negative Negative [facility] Protein Test strip Ql (U)Ord ered By: Buzz Rainey on 02-28-2025 Protein Ql (U) 15 mg/dl High Negative [facility] Urine clarityOrdered By: Franklin Rainey on 02-28-2025 Clarity (U) Clear Clear [facility] Urine color determinationOrd ered By: Buzz Rainey on 02-28-2025 Color (U) Straw Yellow [facility] Urine cultureOrdered By: Franklin Rainey on 02-28-2025 Bacteria identified Cx Nom (U) Positive Abnormal [facility] Urine glucose detectionOrder ed By: Buzz Rainey on 02-28-2025 Glucose Ql (U) 1000 mg/dl High Normal [facility] Urine leukocyte esterase det ection by dipstickOrdered By: Buzz Raniey on 02-28-2025 Leukocyte esterase Test strip Ql (U) 25 /ul High Negative [facility] Urine pHOrdered By: Mallorie Rainey on 02-28-2025 pH (U) 6.0 [pH] 5.0 - 8.0 [facility] Urine specific gravity measu rementOrdered By: Buzz Rainey on 02-28-2025 Specific gravity (U) [Rel density] 1.020 1.002-1.030 [facility] Urine urobilinogen measureme ntOrdered By: Buzz Rainey on 02-28-2025 Urobilinogen Ql (U) Normal mg/dl Normal [facility] Endocrinology Visit Reporton 02-27-2025 Endocrinology Visit Report [facility] 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 Normal [facility] Absolute lymphocyte countOrd ered By: Buzz Rainey on 01-31-2025 Lymphocytes Auto (Unsp spec) [#/Vol] 0.83 10*3/uL 0.83-4.51 [facility] Absolute neutrophil countOrd ered By: Buzz Rainey on 01-31-2025 Neutrophils (Bld) [#/Vol] 3.3 10*3/uL 2.0-7.7 [facility] Anion gap in Serum or Plasma Ordered By: Buzz Rainey on 01-31-2025 Anion gap [Moles/Vol] 14 mmol/L 5-15 [facility] Automated lymphocyte count a s percentage of total leukocytesOrdered By: Buzz Rainey on 01-31-2025 Lymphocytes/100 WBC Auto (Unsp spec) 16.0 % Low 19-41 [facility] BUN/creatinine ratioOrdered By: Buzz Rainey on 01-31-2025 Urea nitrogen/Creatinine [Mass ratio] 28.0 mg/mg High 10-20 [facility] Basophil percentageOrdered B y: Buzz Rainey on 01-31-2025 Basophils/100 WBC (Bld) 0.4 % 0-1 [facility] Bilirubin directOrdered By: Buzz Rainey on 01-31-2025 Bilirubin.direct [Mass/Vol] 0.22 mg/dL 0.00-0.30 [facility] Bilirubin, totalOrdered By: Buzz Rainey on 01-31-2025 Bilirubin [Mass/Vol] 0.47 mg/dL 0.00-1.30 [facility] Carbon dioxide, total [Moles /volume] in Central venous bloodOrdered By: Buzz Rainey on 01-31-2025 CO2 [Moles/Vol] 21.6 mmol/L 21.0-32.0 [facility] Chloride assayOrdered By: Alexandra Rainey on 01-31-2025 Chloride [Moles/Vol] 101 mmol/L 98-108 [facility] Eosinophil percentageOrdered By: Buzz De La Pazmklana on 01-31-2025 Eosinophils/100 WBC (Bld) 6.2 % High 0-5 [facility] Erythrocyte distribution wid th (RBC) [Ratio]Ordered By: Buzz De La Pazmklana on 01-31-2025 Erythrocyte distribution width (RBC) [Entitic vol] 45.0 fL High 35.1-43.9 [facility] Erythrocyte distribution wid th ratioOrdered By: Otiliaarthur De La Pazmklana on 01-31-2025 Erythrocyte distribution width (RBC) [Ratio] 12.1 % 11.6-14.6 [facility] Erythrocyte distribution wid th standard deviationOrdered By: Otilialarimoreestrella De La Pazmklana on 01-31-2025 Erythrocyte distribution width (RBC) [Ratio] 45.0 fl High 35.1-43.9 [facility] GFR/1.73 sq M.predicted [place] g non-blacks MDRD (S/P/Bld) [Vol rate/Area]Ordered By: Buzz Rainey on 01-31-2025 Estimated GFR (MDRD) Non-Af Amer 49 Low >60 [facility] Comment on above: mL/min/1.73m2 CKD-EP I Creatinine Equation (2020) Glomerular filtration rate ( GFR) estimation/1.73 sq m using serum, plasma, or whole bOrdered By: Buzz Rainey on 01-31-2025 GFR/1.73 sq M.predicted among non-blacks MDRD (S/P/Bld) [Vol rate/Area] 49 mL/min/{1.73_m2} Low >60 [facility] Comment on above: mL/min/1.73m2 CKD-EP I Creatinine Equation (2020) Hematocrit Auto (Bld) [Volum e fraction]Ordered By: Buzz Rainey on 01-31-2025 Hematocrit (Bld) [Volume fraction] 39.9 % Low 40-54 [facility] Hemoglobin A1c percentageOrd ered By: Buzz Rainey on 01-31-2025 HbA1c (Bld) [Mass fraction] 7.9 % >5.7 [facility] Hemoglobin measurementOrdere d By: Buzz Rainey on 01-31-2025 Hemoglobin (Bld) [Mass/Vol] 13.8 g/dL 13.0-16.5 [facility] Immature granulocytes/100 WB C Auto (Bld)Ordered By: Buzz Rainey on 01-31-2025 Immature granulocytes/100 WBC (Bld) 0.200 % 0.0-0.9 [facility] Comment on above: IG% - Immature Granu locytes (promyelocytes, myelocytes and metamyelocytes) > 1% indicates that a LEFT SHIFT is Present. Laboratory - Chemistry and C hemistry - challengeOrdered By: Buzz Rainey on 01-31-2025 AST [Catalytic activity/Vol] 32 U/L <38 [facility] Lymphocytes Auto (Unsp spec) [#/Vol]Ordered By: Buzz Rainey on 01-31-2025 Lymphocytes (Bld) [#/Vol] 0.83 10*3/uL 0.83-4.51 [facility] Lymphocytes/100 WBC Auto (Un sp spec)Ordered By: Buzz Rainey on 01-31-2025 Lymphocytes/100 WBC (Bld) 16.0 % Low 19-41 [facility] MCV (mean corpuscular volume ) determinationOrdered By: Buzz Rainey on 01-31-2025 MCV (RBC) [Entitic vol] 99.8 fL High 80-94 [facility] Magnesium (Unsp spec) [Mass/ Vol]Ordered By: Buzz Rainey on 01-31-2025 Magnesium [Mass/Vol] 2.2 mg/dL 1.5-2.2 [facility] Magnesium measurement (mass/ volume)Ordered By: Buzz Rainey on 01-31-2025 Magnesium (Unsp spec) [Mass/Vol] 2.2 mg/dL 1.5-2.2 [facility] Mean corpuscular hemoglobin (MCH) determinationOrdered By: Buzz Rainey on 01-31-2025 MCH (RBC) [Entitic mass] 34.5 pg High 27.0-32.0 [facility] Mean corpuscular hemoglobin concentration (MCHC) determinationOrdered By: Buzz Rainey on 01-31-2025 MCHC (RBC) [Mass/Vol] 34.6 g/dL 32-36 [facility] Mean platelet volume determi nationOrdered By: Buzz Rainey on 01-31-2025 Platelet mean volume (Bld) [Entitic vol] 10.6 fL 6.2-12.0 [facility] Monocyte percentageOrdered B y: Buzz Rainey on 01-31-2025 Monocytes/100 WBC (Bld) 12.7 % High 0-10 [facility] Neutrophil percentageOrdered By: Buzz Rainey on 01-31-2025 Neutrophils/100 WBC (Bld) 64.5 % 47-70 [facility] Nucleated red blood cell per centageOrdered By: Buzz Rainey on 01-31-2025 Nucleated RBC/100 WBC (Bld) [Ratio] 0 % 0-5 [facility] Platelet countOrdered By: Alexandra Rainey on 01-31-2025 Platelets (Bld) [#/Vol] 218 10*3/uL 150-450 [facility] Potassium (Unsp spec) [Mass/ Vol]Ordered By: Buzz Rainey on 01-31-2025 Potassium [Moles/Vol] 5.3 mmol/L High 3.3-5.1 [facility] Potassium measurement (mass/ volume)Ordered By: Buzz Rainey on 01-31-2025 Potassium (Unsp spec) [Mass/Vol] 5.3 mmol/L High 3.3-5.1 [facility] RBC Auto (Bld) [#/Vol]Ordere d By: Buzz Rainey on 01-31-2025 RBC (Bld) [#/Vol] 4.00 10*6/uL Low 4.6-6.2 [facility] Serum creatinine measurement (mass/volume)Ordered By: Buzz Rainey on 01-31-2025 Creatinine [Mass/Vol] 1.43 mg/dL High 0.70-1.20 [facility] Serum globulin measurementOr dered By: Buzz Rainey on 01-31-2025 Globulin (S) [Mass/Vol] 2.8 g/dL 2.2-4.2 [facility] Serum glucose measurement (m ass/volume)Ordered By: Buzz Rainey on 01-31-2025 Glucose [Mass/Vol] 265 mg/dL High 70-99 [facility] Serum or plasma alanine nix otransferase (ALT) measurementOrdered By: Buzz Rainey on 01-31-2025 ALT [Catalytic activity/Vol] 35 U/L <47 [facility] Serum or plasma albumin jesenia urement (mass/volume)Ordered By: Buzz Rainey on 01-31-2025 Albumin [Mass/Vol] 4.3 g/dL 3.4-4.8 [facility] Serum or plasma alkaline radha sphatase measurementOrdered By: Buzz Rainey on 01-31-2025 ALP [Catalytic activity/Vol] 83 U/L 40-129 [facility] Serum or plasma calcium jesenia urement (mass/volume)Ordered By: uBzz Rainey on 01-31-2025 Calcium [Mass/Vol] 9.3 mg/dL 7.6-11.0 [facility] Serum or plasma urea nitroge n measurement (mass/volume)Ordered By: Buzz Rainey on 01-31-2025 Urea nitrogen [Mass/Vol] 40 mg/dL High 4-19 [facility] Sodium levelOrdered By: Otilia baileyjovan Redd on 01-31-2025 Sodium [Moles/Vol] 137 mmol/L 133-145 [facility] Total proteinOrdered By: Franklin Rainey on 01-31-2025 Protein [Mass/Vol] 7.1 g/dL 5.9-8.4 [facility] Vitamin D, 25-hydroxyOrdered By: Buzz Rainey on 01-31-2025 Vitamin D 25-Hydroxy 38.8 ng/mL 30-100 [facility] Comment on above: Vitamin D StatusDefi ciency: <20 ng/mL (50nmol/L)Insufficiency: 20-30 ng/mL (50-75 nmol/L)Sufficiency: 30-100 ng/mL (75-250 nmol/L)Toxicity: >100 ng/mL (>250 nmol/L) White blood cell (WBC) count Ordered By: Buzz Rainey on 01-31-2025 WBC (Bld) [#/Vol] 5.2 10*3/uL 4.4-11.0 [facility] CBC panel Auto (Bld)on 01-22 Erythrocyte distribution width (RBC) [Ratio] 12.4 % 11.5 - 15.0 % [facility] Hematocrit (Bld) [Volume fraction] 37.7 % Low 39.0 - 51.0 % [facility] Hemoglobin (Bld) [Mass/Vol] 12.8 g/dL Low 13.0 - 17.0 g/dL [facility] Interpretation and review of laboratory results Abnormal [facility] MCH (RBC) [Entitic mass] 33.3 pg 26.0 - 34.0 pg [facility] MCHC (RBC) [Mass/Vol] 34 g/dL 30.5 - 36.0 g/dL [facility] MCV (RBC) [Entitic vol] 98.2 fL 80.0 - 100.0 fL [facility] Nucleated RBC (Bld) [#/Vol] NINF [facility] Platelet mean volume (Bld) [Entitic vol] 9.4 fL 9.0 - 12.7 fL [facility] Platelets (Bld) [#/Vol] 216 10*3/uL [facility] RBC (Bld) [#/Vol] 3.84 10*6/uL Low 4.20 - 6.0 0 m/uL [facility] WBC (Bld) [#/Vol] 5.09 10*3/uL [facility] Erythrocyte distribution width (RBC) [Ratio] 12.4 % Normal 11.5-15.0 [facility] Comment on above: Order Comment: Speci men Type: BLOOD SPECIMEN Ordering Facility: [facility] Address: [address] [place] [address] Performed By: #### 5 8410-2 #### [facility] [id number] [address] [place] [id number] [place] [address] [place] Hematocrit (Bld) [Volume fraction] 37.7 % Low 39.0-51.0 [facility] Comment on above: Order Comment: Speci men Type: BLOOD SPECIMEN Ordering Facility: [facility] Address: [address] [place], [place] [address] Performed By: #### 5 8410-2 #### [facility] CLIA [id number] [address] [place] [address] [place] Hemoglobin (Bld) [Mass/Vol] 12.8 g/dL Low 13.0-17.0 [facility] Comment on above: Order Comment: Speci men Type: BLOOD SPECIMEN Ordering Facility: [facility] Address: [address] [place] [address] Performed By: #### 5 8410-2 #### [facility] [id number] [address] [place] [address] [place] MCH (RBC) [Entitic mass] 33.3 pg Normal 26.0-34.0 [facility] Comment on above: Order Comment: Speci men Type: BLOOD SPECIMEN Ordering Facility: [facility] Address: [address] [place] [address] Performed By: #### 5 8410-2 #### [facility] [id number] [address] [place] [address] [place] MCHC (RBC) [Mass/Vol] 34.0 g/dL Normal 30.5-36.0 [facility] Comment on above: Order Comment: Speci men Type: BLOOD SPECIMEN Ordering Facility: [facility] Address: [address] [place] [address] Performed By: #### 5 8410-2 #### [facility] [id number] [address] [place] [address] [place] MCV (RBC) [Entitic vol] 98.2 fL Normal 80.0-100.0 C [facility] Comment on above: Order Comment: Speci men Type: BLOOD SPECIMEN Ordering Facility: [facility] Address: [address] [place] [address] Performed By: #### 5 8410-2 #### [facility] CLIA [id number] [address] [place] [address] [place] Nucleated RBC (Bld) [#/Vol] 10*3/uL Normal <0.01 [facility] Comment on above: Order Comment: Speci men Type: BLOOD SPECIMEN Ordering Facility: [facility] Address: [address] [place] [address] Performed By: #### 5 8410-2 #### [facility] CLIA [id number] [address] [place] [address] [place] Platelet mean volume (Bld) [Entitic vol] 9.4 fL Normal 9.0-12.7 [facility] Comment on above: Order Comment: Speci men Type: BLOOD SPECIMEN Ordering Facility: [facility] Address: [address] [place] [address] Performed By: #### 5 8410-2 #### [facility] CLIA [id number] [address] [place] [address] [place] Platelets (Bld) [#/Vol] 216 10*3/uL Normal 150-400 [facility] Comment on above: Order Comment: Speci men Type: BLOOD SPECIMEN Ordering Facility: [facility] Address: [address] [place] [address] Performed By: #### 5 8410-2 #### [facility] CLIA [id number] [address] [place] [address] [place] RBC (Bld) [#/Vol] 3.84 10*6/uL Low 4.20-6.00 [facility] Comment on above: Order Comment: Speci men Type: BLOOD SPECIMEN Ordering Facility: [facility] Address: [address] [place] [address] Performed By: #### 5 8410-2 #### [facility] CLIA [id number] [address] [place] [address] [place] WBC (Bld) [#/Vol] 5.09 10*3/uL Normal 3.70-11.00 [facility] Comment on above: Order Comment: Speci men Type: BLOOD SPECIMEN Ordering Facility: [facility] Address: [address] [place], [place] [address] [address] Performed By: #### 5 8410-2 #### [facility] CLIA [id number] [address] [place] [address] [place] CNOVon 01-22-2025 CNOV Office Visit (GONZALO ) FLEX KLINE ([id number]) 1940 M Date Time Provider Department 01/22/25 1:40 PM HARJINDER JONES During your visit today, we recorded the following information about you: Pulse Respiration Blood pressure Weight 91/minute 14/minute 156/70 79.8 kg Height 1.765 m Harjinder Jones MD 01/22/2025 2:39 PM Signed Harjinder Jones MD Interventional Cardiology [address] [place] [address] [phone] Chief Complaint Patient presents with: Follow Up: [...] inflammatory demyelinating polyneuropathy) (HCC) Coronary atherosclerosis Diabetes ([facility]) 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 Normal [facility] Comprehensive metabolic 2000 panelOrdered By: Jasmina Young on 01-22-2025 Albumin [Mass/Vol] 4.1 g/dL 3.9 - 4.9 g/dL [facility] ALP [Catalytic activity/Vol] 76 U/L 38 - 113 U/L [facility] ALT [Catalytic activity/Vol] 20 U/L 10 - 54 U/L [facility] Anion gap [Moles/Vol] 9 mmol/L 8 - 15 mmol/L [facility] AST [Catalytic activity/Vol] 19 U/L 14 - 40 U/L [facility] Bilirubin [Mass/Vol] 0.6 mg/dL 0.2 - 1 .3 mg/dL [facility] Calcium [Mass/Vol] 9.3 mg/dL 8.5 - 10. 2 mg/dL [facility] Chloride [Moles/Vol] 103 mmol/L 98 - 10 7 mmol/L [facility] CO2 [Moles/Vol] 27 mmol/L 22 - 30 mmol/L [facility] Creatinine [Mass/Vol] 1.32 mg/dL High 0.73 - 1.22 mg/dL [facility] GFR/1.73 sq M.predicted among non-blacks MDRD (S/P/Bld) [Vol rate/Area] 54 mL/min/{1.73_m2} Low - PINF [facility] Comment on above: Estimated Glomerular Filtration Rate [...] 171 mg/dL High 74 - 99 mg/dL [facility] Comment on above: The [place] Diab[employer] s Association (ADA) provides guidance for [...] Standards of Medical Care in Diabetes 2016, [place] Diabetes Association. Diabetes Care. 2016.39(Suppl 1). Interpretation and review of laboratory results Abnormal [facility] Potassium [Moles/Vol] 5.1 mmol/L 3.7 - 5.1 mmol/L [facility] Protein [Mass/Vol] 6.7 g/dL 6.3 - 8.0 g/dL [facility] Sodium [Moles/Vol] 139 mmol/L 136 - 144 mmol/L [facility] Urea nitrogen [Mass/Vol] 30 mg/dL High 9 - 24 mg/dL [facility] Comprehensive metabolic 2000 panelon 01-22-2025 Albumin [Mass/Vol] 4.1 g/dL Normal 3.9-4.9 [facility] Comment on above: Order Comment: Speci men Type: BLOOD SPECIMEN Ordering Facility: [facility] Address: [address] [place] [id number] Performed By: #### 2 4323-8 #### [facility] CLIA [id number] [address] [place] [address] [place] ALP [Catalytic activity/Vol] 76 U/L Normal 38-113 [facility] Comment on above: Order Comment: Speci men Type: BLOOD SPECIMEN Ordering Facility: [facility] Address: [address] [place] [address] Performed By: #### 2 4323-8 #### [facility] CLIA [id number] [address] [place] [address] [place] ALT [Catalytic activity/Vol] 20 U/L Normal 10-54 [facility] Comment on above: Order Comment: Speci men Type: BLOOD SPECIMEN Ordering Facility: [facility] Address: [address] [place] [address] Performed By: #### 2 4323-8 #### [facility] CLIA [id number] [address] [place] [address] [place] Anion gap [Moles/Vol] 9 mmol/L Normal 8-15 [facility] Comment on above: Order Comment: Speci men Type: BLOOD SPECIMEN Ordering Facility: [facility] Address: [facility] [place] [address] Performed By: #### 2 4323-8 #### [facility] CLIA [id number] [address] [place] [address] [place] AST [Catalytic activity/Vol] 19 U/L Normal 14-40 [facility] Comment on above: Order Comment: Speci men Type: BLOOD SPECIMEN Ordering Facility: [facility] Address: [address] [facility] [place] [address] Performed By: #### 2 4323-8 #### [facility] CLIA [id number] [address] [place] [address] [place] Bilirubin [Mass/Vol] 0.6 mg/dL Normal 0.2-1.3 [facility] Comment on above: Order Comment: Speci men Type: BLOOD SPECIMEN Ordering Facility: [facility] Address: [address] [place] [address] Performed By: #### 2 4323-8 #### [facility] CLIA [id number] [address] [place] [address] [place] Calcium [Mass/Vol] 9.3 mg/dL Normal 8.5-10.2 [facility] Comment on above: Order Comment: Speci men Type: BLOOD SPECIMEN Ordering Facility: [facility] Address: [address] [place] [address] Performed By: #### 2 4323-8 #### [facility] CLIA [id number] [address] [place] [address] [place] Chloride [Moles/Vol] 103 mmol/L Normal 98-107 [facility] Comment on above: Order Comment: Speci men Type: BLOOD SPECIMEN Ordering Facility: [facility] Address: [address] [place] [address] Performed By: #### 2 4323-8 #### [facility] CLIA [id number] [address] [place] [address] [place] CO2 [Moles/Vol] 27 mmol/L Normal 22-30 [facility] Comment on above: Order Comment: Speci men Type: BLOOD SPECIMEN Ordering Facility: [facility] Address: [address] [place] [address] Performed By: #### 2 4323-8 #### [facility] CLIA [id number] [address] [place] [address] [place] Creatinine [Mass/Vol] 1.32 mg/dL High 0.73-1.22 [facility] Comment on above: Order Comment: Speci men Type: BLOOD SPECIMEN Ordering Facility: [facility] Address: [address] [place] [address] Performed By: #### 2 4323-8 #### [facility] CLIA [id number] [address] [place] [address] [place] Creatinine and Glomerular filtration rate.predicted panel (S/P/Bld) 54 mL/min/1.73m??? Low >=60 [facility] Comment on above: Order Comment: Krystyna funk Type: BLOOD SPECIMEN Ordering Facility: [facility] Address: [address] [place] [address] Result Comment: Beatrice mated Glomerular Filtration Rate [...] GFR. Performed By: #### 2 4323-8 #### [facility] [id number] [address] [place] [address] [place] Glucose [Mass/Vol] 171 mg/dL High 74-99 [facility] Comment on above: Order Comment: Krystyna funk Type: BLOOD SPECIMEN Ordering Facility: [facility] Address: [address] [place] [address] Result Comment: The [place] Diabetes Association (ADA) provides guidance for cutoff [...] Standards of Medical Care in Diabetes 2016, [place] Diabetes Association. Diabetes Care. 2016.39(Suppl 1). Performed By: #### 2 4323-8 #### [facility] [id number] [address] [place] [address] [place] Potassium [Moles/Vol] 5.1 mmol/L Normal 3.7-5.1 [facility] Comment on above: Order Comment: Speci men Type: BLOOD SPECIMEN Ordering Facility: [facility] Address: [address] [place], [place] [address] Performed By: #### 2 4323-8 #### [facility] CLIA [id number] [address] [place] [address] [place] Protein [Mass/Vol] 6.7 g/dL Normal 6.3-8.0 [facility] Comment on above: Order Comment: Speci men Type: BLOOD SPECIMEN Ordering Facility: [facility] Address: [address] [place] [address] Performed By: #### 2 4323-8 #### [facility] [id number] [address] [place] [address] [place] Sodium [Moles/Vol] 139 mmol/L Normal 136-144 [facility] Comment on above: Order Comment: Speci men Type: BLOOD SPECIMEN Ordering Facility: [facility] Address: [address] [place] [address] Performed By: #### 2 4323-8 #### [facility] [id number] [address] [place] [address] [place] Urea nitrogen [Mass/Vol] 30 mg/dL High 9-24 [facility] Comment on above: Order Comment: Speci men Type: BLOOD SPECIMEN Ordering Facility: [facility] Address: [address] [place], [place] [address] Performed By: #### 2 4323-8 #### [facility] [id number] [address] [place] [address] [place] NT-proBNP [facility] 01-22 Natriuretic peptide.B prohormone N-Terminal [Mass/Vol] 437 pg/mL Normal <450 [facility] Comment on above: Order Comment: Speci men Type: BLOOD SPECIMEN Ordering Facility: [facility] Address: [facility] [place] [address] Performed By: #### 3 3762-6, 3016-3 #### [facility] CLIA [id number] [address] [place] [address] [place] TSH SerPl-aCncon 01-22-2025 TSH Qn 5.250 m[IU]/L High 0.270-4.200 [facility] Comment on above: Order Comment: Speci men Type: BLOOD SPECIMEN Ordering Facility: [facility] Address: [facility] [place] [address] Performed By: #### 3 3762-6, 3016-3 #### [facility] CLIA [id number] [address] [place] Absolute lymphocyte countOrd ered By: Buzz Rainey on 01-04-2025 Lymphocytes Auto (Unsp spec) [#/Vol] 0.86 10*3/uL 0.83-4.51 [facility] Absolute neutrophil countOrd ered By: Buzz Rainey on 01-04-2025 Neutrophils (Bld) [#/Vol] 2.9 10*3/uL 2.0-7.7 [facility] Automated lymphocyte count a s percentage of total leukocytesOrdered By: Buzz Rainey on 01-04-2025 Lymphocytes/100 WBC Auto (Unsp spec) 17.8 % Low 19-41 [facility] Basophil percentageOrdered B y: Buzz Rainey on 01-04-2025 Basophils/100 WBC (Bld) 0.6 % 0-1 [facility] Blood urea nitrogen (BUN)/cr eatinine ratioOrdered By: Buzz Rainey on 01-04-2025 Urea nitrogen/Creatinine [Mass ratio] 19.2 mg/mg 10-20 [facility] Carbon dioxide measurementOr dered By: Buzz Rainey on 01-04-2025 CO2 [Moles/Vol] 30.0 mmol/L 21.0-32.0 [facility] Chloride measurementOrdered By: Buzz Rainey on 01-04-2025 Chloride [Moles/Vol] 107 mmol/L 98-107 [facility] Eosinophil percentageOrdered By: Buzz Rainey on 01-04-2025 Eosinophils/100 WBC (Bld) 7.7 % High 0-5 [facility] Erythrocyte distribution wid th (RBC) [Ratio]Ordered By: Buzz Rainey on 01-04-2025 Erythrocyte distribution width (RBC) [Entitic vol] 46.5 fL High 35.1-43.9 [facility] Erythrocyte distribution wid th ratioOrdered By: Buzz Rainey on 01-04-2025 Erythrocyte distribution width (RBC) [Ratio] 12.4 % 11.6-14.6 [facility] Erythrocyte distribution wid th standard deviationOrdered By: Buzz Rainey on 01-04-2025 Erythrocyte distribution width (RBC) [Ratio] 46.5 fl High 35.1-43.9 [facility] Estimated glomerular filtrat ion rate (GFR) AmericanOrdered By: Buzz Rainey on 01-04-2025 Estimated GFR (MDRD) Amer 57 mL/min Low >60 [facility] Comment on above: GFR Calc Glomerular filtration rate ( GFR) estimationOrdered By: Buzz Rainey on 01-04-2025 Estimated GFR (MDRD) Non-Af Amer 47 mL/min Low >60 [facility] Comment on above: Non- GFR Calc GFR/1.73 sq M.predicted among non-blacks MDRD (S/P/Bld) [Vol rate/Area] 47 mL/min/{1.73_m2} Low >60 [facility] Comment on above: Non- GFR Calc Glucose measurementOrdered B y: Buzz Rainey on 01-04-2025 Glucose [Mass/Vol] 225 mg/dL High 74-106 [facility] Comment on above: Glucose result great er than or equal to 200 mg/dLsuggests DIABETES MELLITUS per A.D.A. criteria. Hematocrit Auto (Bld) [Volum e fraction]Ordered By: Buzz Rainey on 01-04-2025 Hematocrit (Bld) [Volume fraction] 39.9 % Low 40-54 [facility] Hemoglobin measurementOrdere d By: Alexandrayumikohueyestrella De La Pazmklana on 01-04-2025 Hemoglobin (Bld) [Mass/Vol] 13.1 g/dL 13.0-16.5 [facility] Immature granulocytes/100 WB C Auto (Bld)Ordered By: tamanna Rainey on 01-04-2025 Immature granulocytes/100 WBC (Bld) 0.200 % 0.0-0.9 [facility] Comment on above: IG% - Immature Granu locytes (promyelocytes, myelocytes and metamyelocytes) > 1% indicates that a LEFT SHIFT is Present. Lymphocytes Auto (Unsp spec) [#/Vol]Ordered By: Buzz Rainey on 01-04-2025 Lymphocytes (Bld) [#/Vol] 0.86 10*3/uL 0.83-4.51 [facility] Lymphocytes/100 WBC Auto (Un sp spec)Ordered By: Buzz Rainey on 01-04-2025 Lymphocytes/100 WBC (Bld) 17.8 % Low 19-41 [facility] MCV (mean corpuscular volume ) determinationOrdered By: Buzz Rainey on 01-04-2025 MCV (RBC) [Entitic vol] 101.0 fL High 80-94 [facility] Mean corpuscular hemoglobin (MCH) determinationOrdered By: tamanna Rainey on 01-04-2025 MCH (RBC) [Entitic mass] 33.2 pg High 27.0-32.0 [facility] Mean corpuscular hemoglobin concentration (MCHC) determinationOrdered By: tamanna Rainey on 01-04-2025 MCHC (RBC) [Mass/Vol] 32.8 g/dL 32-36 [facility] Mean platelet volume determi nationOrdered By: tamanna Rainey on 01-04-2025 Platelet mean volume (Bld) [Entitic vol] 10.0 fL 6.2-12.0 [facility] Monocyte percentageOrdered B y: Buzz Rainey on 02-13-2025 Monocytes/100 WBC (Bld) 12.8 % High 0-10 [facility] Neutrophil percentageOrdered By: Buzz Rainey on 01-04-2025 Neutrophils/100 WBC (Bld) 60.9 % 47-70 [facility] Nucleated red blood cell per centageOrdered By: Buzz Rainey on 01-04-2025 Nucleated RBC/100 WBC (Bld) [Ratio] 0 % 0-5 [facility] Platelet countOrdered By: Alexandra Rainey on 01-04-2025 Platelets (Bld) [#/Vol] 217 10*3/uL 150-450 [facility] Potassium measurementOrdered By: Buzz Rainey on 01-04-2025 Potassium [Moles/Vol] 4.5 mmol/L 3.5-5.1 [facility] Comment on above: Slight Hemolysis, Re sult may be falsely increased. RBC Auto (Bld) [#/Vol]Ordere d By: Buzz Rainey on 01-04-2025 RBC (Bld) [#/Vol] 3.95 10*6/uL Low 4.6-6.2 [facility] Serum anion gap measurementO rdered By: Buzz Rainey on 01-04-2025 Anion gap [Moles/Vol] 4 mmol/L Low 5-15 [facility] Serum or plasma calcium jesenia urement (mass/volume)Ordered By: Buzz Rainey on 01-04-2025 Calcium [Mass/Vol] 8.9 mg/dL 8.5-10.1 [facility] Serum or plasma creatinine m easurement (mass/volume)Ordered By: Buzz Rainey on 01-04-2025 Creatinine [Mass/Vol] 1.51 mg/dL High 0.70-1.30 [facility] Comment on above: The validity of the calculated GFR & GFRAA in patients over 70 years has not been determined. Clinical correlation is essential. Serum or plasma urea nitroge n measurement (mass/volume)Ordered By: Buzz Rainey on 01-04-2025 Urea nitrogen [Mass/Vol] 29 mg/dL High 7-18 [facility] Sodium levelOrdered By: Otilia Monreallana on 01-04-2025 Sodium [Moles/Vol] 141 mmol/L 136-145 [facility] White blood cell (WBC) count Ordered By: Buzz Rainey on 01-04-2025 WBC (Bld) [#/Vol] 4.8 10*3/uL 4.4-11.0 [facility] Absolute lymphocyte countOrd ered By: Buzz Rainey on 12-07-2024 Lymphocytes Auto (Unsp spec) [#/Vol] 1.34 10*3/uL 0.83-4.51 [facility] Absolute neutrophil countOrd ered By: Buzz Rainey on 12-07-2024 Neutrophils (Bld) [#/Vol] 3.2 10*3/uL 2.0-7.7 [facility] Automated lymphocyte count a s percentage of total leukocytesOrdered By: Alexandrayumikoarthur Brainlavelle on 12-07-2024 Lymphocytes/100 WBC Auto (Unsp spec) 24.8 % 19-41 [facility] Basophil percentageOrdered B y: Buzz Brainlavelle on 12-07-2024 Basophils/100 WBC (Bld) 0.6 % 0-1 [facility] Blood urea nitrogen (BUN)/cr eatinine ratioOrdered By: Alexandrayumikoarthur Brainmklana on 12-07-2024 Urea nitrogen/Creatinine [Mass ratio] 18.5 mg/mg 10-20 [facility] Carbon dioxide measurementOr dered By: Alexandrayumikoarthur Brainmklana on 12-07-2024 CO2 [Moles/Vol] 27.0 mmol/L 21.0-32.0 [facility] Chloride measurementOrdered By: Buzz De La Pazmklana on 12-07-2024 Chloride [Moles/Vol] 106 mmol/L 98-107 [facility] Eosinophil percentageOrdered By: Codyestrella De La Pazmklana on 12-07-2024 Eosinophils/100 WBC (Bld) 5.5 % High 0-5 [facility] Erythrocyte distribution wid th (RBC) [Ratio]Ordered By: Alexandrayumikohueyestrella De La Pazmklana on 12-07-2024 Erythrocyte distribution width (RBC) [Entitic vol] 46.2 fL High 35.1-43.9 [facility] Erythrocyte distribution wid th ratioOrdered By: Buzz Rainey on 12-07-2024 Erythrocyte distribution width (RBC) [Ratio] 12.3 % 11.6-14.6 [facility] Erythrocyte distribution wid th standard deviationOrdered By: Buzz Rainey on 12-07-2024 Erythrocyte distribution width (RBC) [Ratio] 46.2 fl High 35.1-43.9 [facility] Estimated glomerular filtrat ion rate (GFR) AmericanOrdered By: Buzz Rainey on 12-07-2024 Estimated GFR (MDRD) Amer 59 mL/min Low >60 [facility] Comment on above: GFR Calc Glomerular filtration rate ( GFR) estimationOrdered By: Buzz Rainey on 12-07-2024 Estimated GFR (MDRD) Non-Af Amer 49 mL/min Low >60 [facility] Comment on above: Non- GFR Calc GFR/1.73 sq M.predicted among non-blacks MDRD (S/P/Bld) [Vol rate/Area] 49 mL/min/{1.73_m2} Low >60 [facility] Comment on above: Non- GFR Calc Glucose measurementOrdered B y: Buzz Rainey on 12-07-2024 Glucose [Mass/Vol] 129 mg/dL High 74-106 [facility] Comment on above: Fasting Glucose resu lt greater than or equal to 126 mg/dL suggests DIABETES MELLITUS per A.D.A. criteria. Hematocrit Auto (Bld) [Volum e fraction]Ordered By: Buzz Rainey on 12-07-2024 Hematocrit (Bld) [Volume fraction] 40.6 % 40-54 [facility] Hemoglobin measurementOrdere d By: Buzz Rainey on 12-07-2024 Hemoglobin (Bld) [Mass/Vol] 13.4 g/dL 13.0-16.5 [facility] Immature granulocytes/100 WB C Auto (Bld)Ordered By: Buzz Rainey on 12-07-2024 Immature granulocytes/100 WBC (Bld) 0.200 % 0.0-0.9 [facility] Comment on above: IG% - Immature Granu locytes (promyelocytes, myelocytes and metamyelocytes) > 1% indicates that a LEFT SHIFT is Present. Lymphocytes Auto (Unsp spec) [#/Vol]Ordered By: Buzz Rainey on 12-07-2024 Lymphocytes (Bld) [#/Vol] 1.34 10*3/uL 0.83-4.51 [facility] Lymphocytes/100 WBC Auto (Un sp spec)Ordered By: Buzz Rainey on 12-07-2024 Lymphocytes/100 WBC (Bld) 24.8 % 19-41 [facility] MCV (mean corpuscular volume ) determinationOrdered By: Buzz Rainey on 12-07-2024 MCV (RBC) [Entitic vol] 102.8 fL High 80-94 [facility] Mean corpuscular hemoglobin (MCH) determinationOrdered By: Buzz Rainey on 12-07-2024 MCH (RBC) [Entitic mass] 33.9 pg High 27.0-32.0 [facility] Mean corpuscular hemoglobin concentration (MCHC) determinationOrdered By: tamanna Rainey on 12-07-2024 MCHC (RBC) [Mass/Vol] 33.0 g/dL 32-36 [facility] Mean platelet volume determi nationOrdered By: Buzz Rainey on 12-07-2024 Platelet mean volume (Bld) [Entitic vol] 10.0 fL 6.2-12.0 [facility] Monocyte percentageOrdered B y: Buzz Rainey on 12-07-2024 Monocytes/100 WBC (Bld) 9.4 % 0-10 [facility] Neutrophil percentageOrdered By: tamanna Rainey on 12-07-2024 Neutrophils/100 WBC (Bld) 59.5 % 47-70 [facility] Nucleated red blood cell per centageOrdered By: Buzz Rainey on 12-07-2024 Nucleated RBC/100 WBC (Bld) [Ratio] 0 % 0-5 [facility] Platelet countOrdered By: Alexandra Rainey on 12-07-2024 Platelets (Bld) [#/Vol] 217 10*3/uL 150-450 [facility] Potassium measurementOrdered By: Buzz Rainey on 12-07-2024 Potassium [Moles/Vol] 4.8 mmol/L 3.5-5.1 [facility] RBC Auto (Bld) [#/Vol]Ordere d By: Buzz Rainey on 12-07-2024 RBC (Bld) [#/Vol] 3.95 10*6/uL Low 4.6-6.2 [facility] Serum anion gap measurementO rdered By: Buzz Rainey on 12-07-2024 Anion gap [Moles/Vol] 5 mmol/L 5-15 [facility] Serum or plasma calcium jesenia urement (mass/volume)Ordered By: Buzz Rainey on 12-07-2024 Calcium [Mass/Vol] 9.1 mg/dL 8.5-10.1 [facility] Serum or plasma creatinine m easurement (mass/volume)Ordered By: Buzz Rainey on 12-07-2024 Creatinine [Mass/Vol] 1.46 mg/dL High 0.70-1.30 [facility] Comment on above: The validity of the calculated GFR & GFRAA in patients over 70 years has not been determined. Clinical correlation is essential. Serum or plasma urea nitroge n measurement (mass/volume)Ordered By: Buzz Rainey on 12-07-2024 Urea nitrogen [Mass/Vol] 27 mg/dL High 7-18 [facility] Sodium levelOrdered By: Otilia Rainey on 12-07-2024 Sodium [Moles/Vol] 138 mmol/L 136-145 [facility] White blood cell (WBC) count Ordered By: Buzz Rainey on 12-07-2024 WBC (Bld) [#/Vol] 5.4 10*3/uL 4.4-11.0 [facility] Absolute lymphocyte countOrd ered By: Buzz Rainey on 11-30-2024 Lymphocytes Auto (Unsp spec) [#/Vol] 1.16 10*3/uL 0.83-4.51 [facility] Absolute neutrophil countOrd ered By: Buzz Rainey on 11-30-2024 Neutrophils (Bld) [#/Vol] 2.8 10*3/uL 2.0-7.7 [facility] Automated lymphocyte count a s percentage of total leukocytesOrdered By: Buzz Rainey on 11-30-2024 Lymphocytes/100 WBC Auto (Unsp spec) 23.3 % 19-41 [facility] Basophil percentageOrdered B y: Buzz Raieny on 11-30-2024 Basophils/100 WBC (Bld) 0.6 % 0-1 [facility] Blood urea nitrogen (BUN)/cr eatinine ratioOrdered By: Otilialarimoreestrella Rainey on 11-30-2024 Urea nitrogen/Creatinine [Mass ratio] 21.4 mg/mg High 10-20 [facility] Carbon dioxide measurementOr dered By: Buzz Rainey on 11-30-2024 CO2 [Moles/Vol] 28.0 mmol/L 21.0-32.0 [facility] Cardiology Visit Reporton Cardiology Visit Report [facility] [address] [place] [address] OFFICE VISIT Date of Service: 11/30/24 MR#: [id number] Acct: [id number] Name: FLEX KLINE Rep #: [id number] : 1940 Provider: Dr. 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 Normal [facility] Chloride measurementOrdered By: Buzz Rainey on 11-30-2024 Chloride [Moles/Vol] 105 mmol/L 98-107 [facility] Eosinophil percentageOrdered By: Buzz Rainey on 11-30-2024 Eosinophils/100 WBC (Bld) 6.6 % High 0-5 [facility] Erythrocyte distribution wid th (RBC) [Ratio]Ordered By: Buzz Rainey on 11-30-2024 Erythrocyte distribution width (RBC) [Entitic vol] 46.9 fL High 35.1-43.9 [facility] Erythrocyte distribution wid th ratioOrdered By: tamanna Rainey on 11-30-2024 Erythrocyte distribution width (RBC) [Ratio] 12.4 % 11.6-14.6 [facility] Erythrocyte distribution wid th standard deviationOrdered By: Buzz Rainey on 11-30-2024 Erythrocyte distribution width (RBC) [Ratio] 46.9 fl High 35.1-43.9 [facility] Estimated glomerular filtrat ion rate (GFR) AmericanOrdered By: Buzz Rainey on 11-30-2024 Estimated GFR (MDRD) Amer 62 mL/min >60 [facility] Comment on above: GFR Calc Glomerular filtration rate ( GFR) estimationOrdered By: Buzz Rainey on 11-30-2024 Estimated GFR (MDRD) Non-Af Amer 52 mL/min Low >60 [facility] Comment on above: Non- GFR Calc GFR/1.73 sq M.predicted among non-blacks MDRD (S/P/Bld) [Vol rate/Area] 52 mL/min/{1.73_m2} Low >60 [facility] Comment on above: Non- GFR Calc Glucose measurementOrdered B y: Buzz Rainey on 11-30-2024 Glucose [Mass/Vol] 119 mg/dL High 74-106 [facility] Comment on above: Fasting Glucose resu lt from 100 to 125 mg/dL suggests IMPAIRED HOMEOSTASIS per A.D.A. criteria. Hematocrit Auto (Bld) [Volum e fraction]Ordered By: Buzz Rainey on 11-30-2024 Hematocrit (Bld) [Volume fraction] 40.2 % 40-54 [facility] Hemoglobin measurementOrdere d By: Buzz Rainey on 11-30-2024 Hemoglobin (Bld) [Mass/Vol] 13.2 g/dL 13.0-16.5 [facility] Immature granulocytes/100 WB C Auto (Bld)Ordered By: Buzz Rainey on 11-30-2024 Immature granulocytes/100 WBC (Bld) 0.400 % 0.0-0.9 [facility] Comment on above: IG% - Immature Granu locytes (promyelocytes, myelocytes and metamyelocytes) > 1% indicates that a LEFT SHIFT is Present. Lymphocytes Auto (Unsp spec) [#/Vol]Ordered By: Buzz Rainey on 11-30-2024 Lymphocytes (Bld) [#/Vol] 1.16 10*3/uL 0.83-4.51 [facility] Lymphocytes/100 WBC Auto (Un sp spec)Ordered By: Buzz Rainey on 11-30-2024 Lymphocytes/100 WBC (Bld) 23.3 % 19-41 [facility] MCV (mean corpuscular volume ) determinationOrdered By: Buzz Rainey on 11-30-2024 MCV (RBC) [Entitic vol] 103.1 fL High 80-94 [facility] Mean corpuscular hemoglobin (MCH) determinationOrdered By: yumikolarimoreestrella Rainey on 11-30-2024 MCH (RBC) [Entitic mass] 33.8 pg High 27.0-32.0 [facility] Mean corpuscular hemoglobin concentration (MCHC) determinationOrdered By: Buzz Rainey on 11-30-2024 MCHC (RBC) [Mass/Vol] 32.8 g/dL 32-36 [facility] Mean platelet volume determi nationOrdered By: Buzz Rainey on 11-30-2024 Platelet mean volume (Bld) [Entitic vol] 10.2 fL 6.2-12.0 [facility] Monocyte percentageOrdered B y: Buzz Rainey on 11-30-2024 Monocytes/100 WBC (Bld) 11.9 % High 0-10 [facility] Neutrophil percentageOrdered By: Buzz Rainey on 11-30-2024 Neutrophils/100 WBC (Bld) 57.2 % 47-70 [facility] Nucleated red blood cell per centageOrdered By: Buzz Rainey on 11-30-2024 Nucleated RBC/100 WBC (Bld) [Ratio] 0 % 0-5 [facility] Platelet countOrdered By: Alexandra Rainey on 11-30-2024 Platelets (Bld) [#/Vol] 212 10*3/uL 150-450 [facility] Potassium measurementOrdered By: Buzz Rainey on 11-30-2024 Potassium [Moles/Vol] 4.4 mmol/L 3.5-5.1 [facility] RBC Auto (Bld) [#/Vol]Ordere d By: Buzz Rainey on 11-30-2024 RBC (Bld) [#/Vol] 3.90 10*6/uL Low 4.6-6.2 [facility] Serum anion gap measurementO rdered By: Buzz Rainey on 11-30-2024 Anion gap [Moles/Vol] 6 mmol/L 5-15 [facility] Serum or plasma calcium jesenia urement (mass/volume)Ordered By: Buzz Rainey on 11-30-2024 Calcium [Mass/Vol] 8.8 mg/dL 8.5-10.1 [facility] Serum or plasma creatinine m easurement (mass/volume)Ordered By: Buzz Rainey on 11-30-2024 Creatinine [Mass/Vol] 1.40 mg/dL High 0.70-1.30 [facility] Comment on above: The validity of the calculated GFR & GFRAA in patients over 70 years has not been determined. Clinical correlation is essential. Serum or plasma urea nitroge n measurement (mass/volume)Ordered By: Buzz Rainey on 11-30-2024 Urea nitrogen [Mass/Vol] 30 mg/dL High 7-18 [facility] Sodium levelOrdered By: Otilia Rainey on 11-30-2024 Sodium [Moles/Vol] 139 mmol/L 136-145 [facility] White blood cell (WBC) count Ordered By: Buzz Rainey on 11-30-2024 WBC (Bld) [#/Vol] 5.0 10*3/uL 4.4-11.0 [facility] Absolute neutrophil countOrd ered By: Buzz Rainey on 11-23-2024 Neutrophils (Bld) [#/Vol] 3.4 10*3/uL 2.0-7.7 [facility] Basophil percentageOrdered B y: Buzz Rainey on 11-23-2024 Basophils/100 WBC (Bld) 0.5 % 0-1 [facility] Blood urea nitrogen (BUN)/cr eatinine ratioOrdered By: Buzz Rainey on 11-23-2024 Urea nitrogen/Creatinine [Mass ratio] 19.8 mg/mg 10-20 [facility] Carbon dioxide measurementOr dered By: Buzz Rainey on 11-23-2024 CO2 [Moles/Vol] 28.0 mmol/L 21.0-32.0 [facility] Chloride measurementOrdered By: Buzz Rainey on 11-23-2024 Chloride [Moles/Vol] 104 mmol/L 98-107 [facility] Eosinophil percentageOrdered By: Buzz Rainey on 11-23-2024 Eosinophils/100 WBC (Bld) 6.0 % High 0-5 [facility] Erythrocyte distribution wid th (RBC) [Ratio]Ordered By: Buzz Rainey on 11-23-2024 Erythrocyte distribution width (RBC) [Entitic vol] 43.7 fL 35.1-43.9 [facility] Erythrocyte distribution wid th ratioOrdered By: Buzz Rainey on 11-23-2024 Erythrocyte distribution width (RBC) [Ratio] 11.9 % 11.6-14.6 [facility] Estimated glomerular filtrat ion rate (GFR) AmericanOrdered By: Buzz Rainey on 11-23-2024 Estimated GFR (MDRD) Amer 67 mL/min >60 [facility] Comment on above: GFR Calc Glomerular filtration rate ( GFR) estimationOrdered By: Buzz Rainey on 11-23-2024 Estimated GFR (MDRD) Non-Af Amer 56 mL/min Low >60 [facility] Comment on above: Non- GFR Calc Glucose measurementOrdered B y: Buzz Rainey on 11-23-2024 Glucose [Mass/Vol] 119 mg/dL High 74-106 [facility] Comment on above: Fasting Glucose resu lt from 100 to 125 mg/dL suggests IMPAIRED HOMEOSTASIS per A.D.A. criteria. Hematocrit Auto (Bld) [Volum e fraction]Ordered By: Buzz Rainey on 11-23-2024 Hematocrit (Bld) [Volume fraction] 40.4 % 40-54 [facility] Hemoglobin measurementOrdere d By: Buzz Rainey on 11-23-2024 Hemoglobin (Bld) [Mass/Vol] 13.8 g/dL 13.0-16.5 [facility] Immature granulocytes/100 WB C Auto (Bld)Ordered By: Buzz Rainey on 11-23-2024 Immature granulocytes/100 WBC (Bld) 0.400 % 0.0-0.9 [facility] Comment on above: IG% - Immature Granu locytes (promyelocytes, myelocytes and metamyelocytes) > 1% indicates that a LEFT SHIFT is Present. Lymphocytes Auto (Unsp spec) [#/Vol]Ordered By: Buzz Rainey on 11-23-2024 Lymphocytes (Bld) [#/Vol] 1.22 10*3/uL 0.83-4.51 [facility] Lymphocytes/100 WBC Auto (Un sp spec)Ordered By: Buzz Rainey on 11-23-2024 Lymphocytes/100 WBC (Bld) 21.4 % 19-41 [facility] MCV (mean corpuscular volume ) determinationOrdered By: Buzz Rainey on 11-23-2024 MCV (RBC) [Entitic vol] 99.5 fL High 80-94 [facility] Mean corpuscular hemoglobin (MCH) determinationOrdered By: Buzz Rainey on 11-23-2024 MCH (RBC) [Entitic mass] 34.0 pg High 27.0-32.0 [facility] Mean corpuscular hemoglobin concentration (MCHC) determinationOrdered By: Buzz Rainey on 11-23-2024 MCHC (RBC) [Mass/Vol] 34.2 g/dL 32-36 [facility] Mean platelet volume determi nationOrdered By: Buzz Rainey on 11-23-2024 Platelet mean volume (Bld) [Entitic vol] 10.2 fL 6.2-12.0 [facility] Monocyte percentageOrdered B y: Buzz Rainey on 11-23-2024 Monocytes/100 WBC (Bld) 12.4 % High 0-10 [facility] Neutrophil percentageOrdered By: Buzz Rainey on 11-23-2024 Neutrophils/100 WBC (Bld) 59.3 % 47-70 [facility] Nucleated red blood cell per centageOrdered By: Buzz Rainey on 11-23-2024 Nucleated RBC/100 WBC (Bld) [Ratio] 0 % 0-5 [facility] Platelet countOrdered By: Alexandra Rainey on 11-23-2024 Platelets (Bld) [#/Vol] 219 10*3/uL 150-450 [facility] Potassium measurementOrdered By: Buzz Rainey on 11-23-2024 Potassium [Moles/Vol] 4.7 mmol/L 3.5-5.1 [facility] RBC Auto (Bld) [#/Vol]Ordere d By: Buzz Rainey on 11-23-2024 RBC (Bld) [#/Vol] 4.06 10*6/uL Low 4.6-6.2 [facility] Serum anion gap measurementO rdered By: Buzz Rainey on 11-23-2024 Anion gap [Moles/Vol] 5 mmol/L 5-15 [facility] Serum or plasma calcium jesenia urement (mass/volume)Ordered By: Buzz Rainey on 11-23-2024 Calcium [Mass/Vol] 9.2 mg/dL 8.5-10.1 [facility] Serum or plasma creatinine m easurement (mass/volume)Ordered By: Buzz Rainey on 11-23-2024 Creatinine [Mass/Vol] 1.31 mg/dL High 0.70-1.30 [facility] Comment on above: The validity of the calculated GFR & GFRAA in patients over 70 years has not been determined. Clinical correlation is essential. Serum or plasma urea nitroge n measurement (mass/volume)Ordered By: Buzz Rainey on 11-23-2024 Urea nitrogen [Mass/Vol] 26 mg/dL High 7-18 [facility] Sodium levelOrdered By: Otilia gibson Brainmklana on 11-23-2024 Sodium [Moles/Vol] 136 mmol/L 136-145 [facility] White blood cell (WBC) count Ordered By: Buzz De La Pazmklana on 11-23-2024 WBC (Bld) [#/Vol] 5.7 10*3/uL 4.4-11.0 [facility] Absolute neutrophil countOrd ered By: Buzz De La Pazmklana on 11-16-2024 Neutrophils (Bld) [#/Vol] 3.9 10*3/uL 2.0-7.7 [facility] Basophil percentageOrdered B y: Buzz Rainey on 11-16-2024 Basophils/100 WBC (Bld) 0.7 % 0-1 [facility] Blood urea nitrogen (BUN)/cr eatinine ratioOrdered By: Buzz De La Pazmklana on 11-16-2024 Urea nitrogen/Creatinine [Mass ratio] 18.8 mg/mg 10-20 [facility] Carbon dioxide measurementOr dered By: Buzz Rainey on 11-16-2024 CO2 [Moles/Vol] 25.0 mmol/L 21.0-32.0 [facility] Chloride measurementOrdered By: Buzz Rainey on 11-16-2024 Chloride [Moles/Vol] 105 mmol/L 98-107 [facility] Eosinophil percentageOrdered By: Buzz De La Pazmklana on 11-16-2024 Eosinophils/100 WBC (Bld) 6.1 % High 0-5 [facility] Erythrocyte distribution wid th (RBC) [Ratio]Ordered By: Buzz Rainey on 11-16-2024 Erythrocyte distribution width (RBC) [Entitic vol] 43.8 fL 35.1-43.9 [facility] Erythrocyte distribution wid th ratioOrdered By: tamanna Rainey on 11-16-2024 Erythrocyte distribution width (RBC) [Ratio] 11.9 % 11.6-14.6 [facility] Estimated glomerular filtrat ion rate (GFR) AmericanOrdered By: Buzz Rainey on 11-16-2024 Estimated GFR (MDRD) Amer 56 mL/min Low >60 [facility] Comment on above: GFR Calc Glomerular filtration rate ( GFR) estimationOrdered By: Buzz Rainey on 11-16-2024 Estimated GFR (MDRD) Non-Af Amer 46 mL/min Low >60 [facility] Comment on above: Non- GFR Calc Glucose measurementOrdered B y: Buzz Rainey on 11-16-2024 Glucose [Mass/Vol] 130 mg/dL High 74-106 [facility] Comment on above: Fasting Glucose resu lt greater than or equal to 126 mg/dL suggests DIABETES MELLITUS per A.D.A. criteria. Hematocrit Auto (Bld) [Volum e fraction]Ordered By: Buzz Rainey on 11-16-2024 Hematocrit (Bld) [Volume fraction] 37.6 % Low 40-54 [facility] Hemoglobin measurementOrdere d By: Buzz Rainey on 11-16-2024 Hemoglobin (Bld) [Mass/Vol] 12.7 g/dL Low 13.0-16.5 [facility] Immature granulocytes/100 WB C Auto (Bld)Ordered By: Buzz Rainey on 11-16-2024 Immature granulocytes/100 WBC (Bld) 0.200 % 0.0-0.9 [facility] Comment on above: IG% - Immature Granu locytes (promyelocytes, myelocytes and metamyelocytes) > 1% indicates that a LEFT SHIFT is Present. Lymphocytes Auto (Unsp spec) [#/Vol]Ordered By: Buzz Rainey on 11-16-2024 Lymphocytes (Bld) [#/Vol] 1.20 10*3/uL 0.83-4.51 [facility] Lymphocytes/100 WBC Auto (Un sp spec)Ordered By: Buzz Rainey on 11-16-2024 Lymphocytes/100 WBC (Bld) 19.8 % 19-41 [facility] MCV (mean corpuscular volume ) determinationOrdered By: Buzz Rainey on 11-16-2024 MCV (RBC) [Entitic vol] 100.5 fL High 80-94 [facility] Mean corpuscular hemoglobin (MCH) determinationOrdered By: Buzz Rainey on 11-16-2024 MCH (RBC) [Entitic mass] 34.0 pg High 27.0-32.0 [facility] Mean corpuscular hemoglobin concentration (MCHC) determinationOrdered By: Buzz Rainey on 11-16-2024 MCHC (RBC) [Mass/Vol] 33.8 g/dL 32-36 [facility] Mean platelet volume determi nationOrdered By: Buzz Rainey on 11-16-2024 Platelet mean volume (Bld) [Entitic vol] 10.0 fL 6.2-12.0 [facility] Monocyte percentageOrdered B y: Buzz Rainey on 11-16-2024 Monocytes/100 WBC (Bld) 9.1 % 0-10 [facility] Neutrophil percentageOrdered By: Buzz Rainey on 11-16-2024 Neutrophils/100 WBC (Bld) 64.1 % 47-70 [facility] Nucleated red blood cell per centageOrdered By: Buzz Rainey on 11-16-2024 Nucleated RBC/100 WBC (Bld) [Ratio] 0 % 0-5 [facility] Platelet countOrdered By: Alexandra yumikoarthur Rainey on 11-16-2024 Platelets (Bld) [#/Vol] 210 10*3/uL 150-450 [facility] Potassium measurementOrdered By: Buzz Rainey on 11-16-2024 Potassium [Moles/Vol] 4.9 mmol/L 3.5-5.1 [facility] Comment on above: Slight Hemolysis, Re sult may be falsely increased. RBC Auto (Bld) [#/Vol]Ordere d By: Buzz Rainey on 11-16-2024 RBC (Bld) [#/Vol] 3.74 10*6/uL Low 4.6-6.2 [facility] Serum anion gap measurementO rdered By: Buzz Rainey on 11-16-2024 Anion gap [Moles/Vol] 5 mmol/L 5-15 [facility] Serum or plasma calcium jesenia urement (mass/volume)Ordered By: Buzz Rainey on 11-16-2024 Calcium [Mass/Vol] 9.0 mg/dL 8.5-10.1 [facility] Serum or plasma creatinine m easurement (mass/volume)Ordered By: Buzz Rainey on 11-16-2024 Creatinine [Mass/Vol] 1.54 mg/dL High 0.70-1.30 [facility] Comment on above: The validity of the calculated GFR & GFRAA in patients over 70 years has not been determined. Clinical correlation is essential. Serum or plasma urea nitroge n measurement (mass/volume)Ordered By: Buzz Rainey on 11-16-2024 Urea nitrogen [Mass/Vol] 29 mg/dL High 7-18 [facility] Sodium levelOrdered By: Otilia Rainey on 11-16-2024 Sodium [Moles/Vol] 135 mmol/L Low 136-145 [facility] White blood cell (WBC) count Ordered By: Buzz Rainey on 11-16-2024 WBC (Bld) [#/Vol] 6.1 10*3/uL 4.4-11.0 [facility] Absolute neutrophil countOrd ered By: Buzz Rainey on 11-09-2024 Neutrophils (Bld) [#/Vol] 3.1 10*3/uL 2.0-7.7 [facility] Basophil percentageOrdered B y: Buzz Rainey on 11-09-2024 Basophils/100 WBC (Bld) 0.8 % 0-1 [facility] Blood urea nitrogen (BUN)/cr eatinine ratioOrdered By: Buzz Rainey on 11-09-2024 Urea nitrogen/Creatinine [Mass ratio] 21.8 mg/mg High 10-20 [facility] Carbon dioxide measurementOr dered By: Buzz Rainey on 11-09-2024 CO2 [Moles/Vol] 27.0 mmol/L 21.0-32.0 [facility] Chloride measurementOrdered By: Buzz Rainey on 11-09-2024 Chloride [Moles/Vol] 105 mmol/L 98-107 [facility] Eosinophil percentageOrdered By: Buzz Brainmklana on 11-09-2024 Eosinophils/100 WBC (Bld) 9.1 % High 0-5 [facility] Erythrocyte distribution wid th (RBC) [Ratio]Ordered By: yumikolarimoreestrella De La Pazmklana on 11-09-2024 Erythrocyte distribution width (RBC) [Entitic vol] 43.2 fL 35.1-43.9 [facility] Erythrocyte distribution wid th ratioOrdered By: [facility] De La Pazmklana on 11-09-2024 Erythrocyte distribution width (RBC) [Ratio] 11.8 % 11.6-14.6 [facility] Estimated glomerular filtrat ion rate (GFR) AmericanOrdered By: Alexandratamanna Rainey on 11-09-2024 Estimated GFR (MDRD) Amer 72 mL/min >60 [facility] Comment on above: GFR Calc Glomerular filtration rate ( GFR) estimationOrdered By: Buzz Rainey on 11-09-2024 Estimated GFR (MDRD) Non-Af Amer 59 mL/min Low >60 [facility] Comment on above: Non- GFR Calc Glucose measurementOrdered B y: Alexandrayumikohueyestrella De La Pazmklana on 11-09-2024 Glucose [Mass/Vol] 145 mg/dL High 74-106 [facility] Comment on above: Fasting Glucose resu lt greater than or equal to 126 mg/dL suggests DIABETES MELLITUS per A.D.A. criteria. Hematocrit Auto (Bld) [Volum e fraction]Ordered By: Buzz Rainey on 11-09-2024 Hematocrit (Bld) [Volume fraction] 38.3 % Low 40-54 [facility] Hemoglobin measurementOrdere d By: Alexandrayumikohueyestrella De La Pazmklana on 11-09-2024 Hemoglobin (Bld) [Mass/Vol] 12.9 g/dL Low 13.0-16.5 [facility] [facility] Immature granulocytes/100 WB C Auto (Bld)Ordered By: Buzz Rainey on 11-09-2024 Immature granulocytes/100 WBC (Bld) 0.400 % 0.0-0.9 [facility] Comment on above: IG% - Immature Granu locytes (promyelocytes, myelocytes and metamyelocytes) > 1% indicates that a LEFT SHIFT is Present. Lymphocytes Auto (Unsp spec) [#/Vol]Ordered By: Buzz Rainey on 11-09-2024 Lymphocytes (Bld) [#/Vol] 1.10 10*3/uL 0.83-4.51 [facility] Lymphocytes/100 WBC Auto (Un sp spec)Ordered By: Buzz Rainey on 11-09-2024 Lymphocytes/100 WBC (Bld) 21.3 % 19-41 [facility] MCV (mean corpuscular volume ) determinationOrdered By: Buzz Rainey on 11-09-2024 MCV (RBC) [Entitic vol] 100.3 fL High 80-94 [facility] Mean corpuscular hemoglobin (MCH) determinationOrdered By: Buzz Rainey on 11-09-2024 MCH (RBC) [Entitic mass] 33.8 pg High 27.0-32.0 [facility] Mean corpuscular hemoglobin concentration (MCHC) determinationOrdered By: tamanna Rainey on 11-09-2024 MCHC (RBC) [Mass/Vol] 33.7 g/dL 32-36 [facility] Mean platelet volume determi nationOrdered By: Buzz Rainey on 11-09-2024 Platelet mean volume (Bld) [Entitic vol] 10.0 fL 6.2-12.0 [facility] Monocyte percentageOrdered B y: Buzz Rainey on 11-09-2024 Monocytes/100 WBC (Bld) 9.1 % 0-10 [facility] Neutrophil percentageOrdered By: tamanna Rainey on 11-09-2024 Neutrophils/100 WBC (Bld) 59.3 % 47-70 [facility] Nucleated red blood cell per centageOrdered By: Buzz Rainey on 11-09-2024 Nucleated RBC/100 WBC (Bld) [Ratio] 0 % 0-5 [facility] Platelet countOrdered By: Alexandra Rainey on 11-09-2024 Platelets (Bld) [#/Vol] 225 10*3/uL 150-450 [facility] Potassium measurementOrdered By: Buzz Rainey on 11-09-2024 Potassium [Moles/Vol] 4.5 mmol/L 3.5-5.1 [facility] RBC Auto (Bld) [#/Vol]Ordere d By: Buzz Rainey on 11-09-2024 RBC (Bld) [#/Vol] 3.82 10*6/uL Low 4.6-6.2 [facility] Serum anion gap measurementO rdered By: Buzz Rainey on 11-09-2024 Anion gap [Moles/Vol] 4 mmol/L Low 5-15 [facility] Serum or plasma calcium jesenia urement (mass/volume)Ordered By: Buzz Rainey on 11-09-2024 Calcium [Mass/Vol] 8.8 mg/dL 8.5-10.1 [facility] Serum or plasma creatinine m easurement (mass/volume)Ordered By: Buzz Rainey on 11-09-2024 Creatinine [Mass/Vol] 1.24 mg/dL 0.70-1.30 [facility] Comment on above: The validity of the calculated GFR & GFRAA in patients over 70 years has not been determined. Clinical correlation is essential. Serum or plasma urea nitroge n measurement (mass/volume)Ordered By: Buzz Rainey on 11-09-2024 Urea nitrogen [Mass/Vol] 27 mg/dL High 7-18 [facility] Sodium levelOrdered By: Otilia Rainey on 11-09-2024 Sodium [Moles/Vol] 136 mmol/L 136-145 [facility] White blood cell (WBC) count Ordered By: Buzz Rainey on 11-09-2024 WBC (Bld) [#/Vol] 5.2 10*3/uL 4.4-11.0 [facility] 82-XT-Fglihyr DOrdered By: Lana Rainey on 11-03-2024 Vitamin D 25-Hydroxy 37.4 ng/mL [facility] Comment on above: Vitamin D 25(OH) Sta tus Range Deficiency <20 ng/mL (50nmol/L) Insufficiency 20 - 30 ng/mL (50 - 75 nmol/L) Sufficiency 30 - 100 ng/mL (75 - 250 nmol/L) Toxicity >100 ng/mL (>250 nmol/L) Absolute neutrophil countOrd ered By: Buzz Rainey on 11-03-2024 Neutrophils (Bld) [#/Vol] 3.2 10*3/uL 2.0-7.7 [facility] Albumin to globulin ratioOrd ered By: Buzz Rainey on 11-03-2024 Albumin/Globulin [Mass ratio] 1.0 {ratio} 0.9-2.4 [facility] Basophil percentageOrdered B y: Buzz Rainey on 11-03-2024 Basophils/100 WBC (Bld) 0.4 % 0-1 [facility] Bilirubin, totalOrdered By: Buzz Rainey on 11-03-2024 Bilirubin [Mass/Vol] 0.80 mg/dL 0.20-1.00 [facility] Comment on above: For patients on eltr ombopag therapy, use of Dimension [place] TBIL is not recommended. Blood urea nitrogen (BUN)/cr eatinine ratioOrdered By: Buzz Rainey on 11-03-2024 Urea nitrogen/Creatinine [Mass ratio] 24.5 mg/mg High 10-20 [facility] Carbon dioxide measurementOr dered By: Buzz Rainey on 11-03-2024 CO2 [Moles/Vol] 23.0 mmol/L 21.0-32.0 [facility] Chloride measurementOrdered By: Buzz Rainey on 11-03-2024 Chloride [Moles/Vol] 105 mmol/L 98-107 [facility] Eosinophil percentageOrdered By: Buzz Rainey on 11-03-2024 Eosinophils/100 WBC (Bld) 8.6 % High 0-5 [facility] Erythrocyte distribution wid th (RBC) [Ratio]Ordered By: Buzz Rainey on 11-03-2024 Erythrocyte distribution width (RBC) [Entitic vol] 44.9 fL High 35.1-43.9 [facility] Erythrocyte distribution wid th ratioOrdered By: Buzz Rainey on 11-03-2024 Erythrocyte distribution width (RBC) [Ratio] 12.0 % 11.6-14.6 [facility] Estimated glomerular filtrat ion rate (GFR) AmericanOrdered By: Buzz Rainey on 11-03-2024 Estimated GFR (MDRD) Amer 61 mL/min >60 [facility] Comment on above: GFR Calc Glomerular filtration rate ( GFR) estimationOrdered By: Buzz Rainey on 11-03-2024 Estimated GFR (MDRD) Non-Af Amer 50 mL/min Low >60 [facility] Comment on above: Non- GFR Calc Glucose measurementOrdered B y: Buzz Rainey on 11-03-2024 Glucose [Mass/Vol] 146 mg/dL High 74-106 [facility] Comment on above: Fasting Glucose resu lt greater than or equal to 126 mg/dL suggests DIABETES MELLITUS per A.D.A. criteria. Hematocrit Auto (Bld) [Volum e fraction]Ordered By: Buzz Rainey on 11-03-2024 Hematocrit (Bld) [Volume fraction] 43.0 % 40-54 [facility] Hemoglobin A1c percentageOrd ered By: Buzz Rainey on 11-03-2024 HbA1c (Bld) [Mass fraction] 6.6 % High 3.8-5.6 [facility] Comment on above: Normal < 5.7 % Predi abetic 5.7 - 6.4 % Diabetic >or= 6.5 % Please note range changes. Hemoglobin measurementOrdere d By: Buzz Rainey on 11-03-2024 Hemoglobin (Bld) [Mass/Vol] 14.7 g/dL 13.0-16.5 [facility] High density lipoprotein (HD L) measurementOrdered By: Buzz Rainey 11-03-2024 Cholesterol in HDL [Mass/Vol] 57 mg/dL >40 [facility] Comment on above: The drugs N-Acetylcy steine and Metamizole may falsely depress this assay. Reference Range HDL <40 mg/dL Low HDL Cholesterol HDL >or= 60 mg/dL High HDL Cholesterol Immature granulocytes/100 WB C Auto (Bld)Ordered By: Buzz Rainey on 11-03-2024 Immature granulocytes/100 WBC (Bld) 0.200 % 0.0-0.9 [facility] Comment on above: IG% - Immature Granu locytes (promyelocytes, myelocytes and metamyelocytes) > 1% indicates that a LEFT SHIFT is Present. Laboratory - Chemistry and C hemistry - challengeOrdered By: Buzz Rainey on 11-03-2024 AST [Catalytic activity/Vol] 41 U/L High 15-37 [facility] Low density lipoprotein (LDL ) cholesterol measurementOrdered By: Buzz Rainey on 11-03-2024 Cholesterol in LDL [Mass/Vol] 97 mg/dL 0-130 [facility] Lymphocytes Auto (Unsp spec) [#/Vol]Ordered By: Buzz Rainey on 11-03-2024 Lymphocytes (Bld) [#/Vol] 0.87 10*3/uL 0.83-4.51 [facility] Lymphocytes/100 WBC Auto (Un sp spec)Ordered By: Buzz Rainey on 11-03-2024 Lymphocytes/100 WBC (Bld) 17.4 % Low 19-41 [facility] MCV (mean corpuscular volume ) determinationOrdered By: Buzz Rainey on 11-03-2024 MCV (RBC) [Entitic vol] 101.2 fL High 80-94 [facility] Magnesium measurementOrdered By: Buzz Rainey on 11-03-2024 Magnesium [Mass/Vol] 2.2 mg/dL 1.6-2.6 [facility] Mean corpuscular hemoglobin (MCH) determinationOrdered By: Buzz Rainey on 11-03-2024 MCH (RBC) [Entitic mass] 34.6 pg High 27.0-32.0 [facility] Mean corpuscular hemoglobin concentration (MCHC) determinationOrdered By: Buzz Rainey on 11-03-2024 MCHC (RBC) [Mass/Vol] 34.2 g/dL 32-36 [facility] Mean platelet volume determi nationOrdered By: Buzz Rainey on 11-03-2024 Platelet mean volume (Bld) [Entitic vol] 9.9 fL 6.2-12.0 [facility] Monocyte percentageOrdered B y: Buzz Rainey on 11-03-2024 Monocytes/100 WBC (Bld) 10.4 % High 0-10 [facility] Neutrophil percentageOrdered By: Buzz Rainey on 11-03-2024 Neutrophils/100 WBC (Bld) 63.0 % 47-70 [facility] Nucleated red blood cell per centageOrdered By: Buzz Rainey on 11-03-2024 Nucleated RBC/100 WBC (Bld) [Ratio] 0 % 0-5 [facility] Platelet countOrdered By: Alexandra Rainey on 11-03-2024 Platelets (Bld) [#/Vol] 190 10*3/uL 150-450 [facility] Potassium measurementOrdered By: Buzz Rainey on 11-03-2024 Potassium [Moles/Vol] 5.0 mmol/L 3.5-5.1 [facility] RBC Auto (Bld) [#/Vol]Ordere d By: Buzz Rainey on 11-03-2024 RBC (Bld) [#/Vol] 4.25 10*6/uL Low 4.6-6.2 [facility] Serum anion gap measurementO rdered By: Buzz Rainey on 11-03-2024 Anion gap [Moles/Vol] 8 mmol/L 5-15 [facility] Serum globulin measurementOr dered By: Buzz Rainey on 11-03-2024 Globulin (S) [Mass/Vol] 3.8 g/dL 2.2-4.2 [facility] Serum or plasma alanine nix otransferase (ALT) measurementOrdered By: Buzz Rainey on 11-03-2024 ALT [Catalytic activity/Vol] 20 U/L 16-61 [facility] Serum or plasma albumin jesenia urement (mass/volume)Ordered By: Buzz Rainey on 11-03-2024 Albumin [Mass/Vol] 3.7 g/dL 3.2-5.0 [facility] Serum or plasma alkaline radha sphatase measurementOrdered By: Buzz Rainey on 11-03-2024 ALP [Catalytic activity/Vol] 77 U/L 45-117 [facility] Serum or plasma calcium jeseina urement (mass/volume)Ordered By: Buzz Rainey on 11-03-2024 Calcium [Mass/Vol] 9.3 mg/dL 8.5-10.1 [facility] Serum or plasma cholesterol measurement (mass/volume)Ordered By: Buzz Rainey on 11-03-2024 Cholesterol [Mass/Vol] 175 mg/dL <200 [facility] Comment on above: <200 mg/dL Desirable 200-240 mg/dL Borderline >240 mg/dL High Risk Serum or plasma creatinine m easurement (mass/volume)Ordered By: Buzz Rainey on 11-03-2024 Creatinine [Mass/Vol] 1.43 mg/dL High 0.70-1.30 [facility] Comment on above: The validity of the calculated GFR & GFRAA in patients over 70 years has not been determined. Clinical correlation is essential. Serum or plasma urea nitroge n measurement (mass/volume)Ordered By: Buzz Rainey on 11-03-2024 Urea nitrogen [Mass/Vol] 35 mg/dL High 7-18 [facility] Sodium levelOrdered By: Otilia Raniey on 11-03-2024 Sodium [Moles/Vol] 136 mmol/L 136-145 [facility] Total proteinOrdered By: Franklin Rainey on 11-03-2024 Protein [Mass/Vol] 7.5 g/dL 6.4-8.2 [facility] Triglycerides measurementOrd ered By: Buzz Rainey on 11-03-2024 Triglyceride [Mass/Vol] 105 mg/dL <199 [facility] Comment on above: The drugs N-Acetylcy steine and Metamizole may falsely depress this assay.Serum Triglycerides Reference Interval Normal <150 mg/dL Borderline high 150 - 199 mg/dL High 200 - 499 mg/dL Very High > or = 500 mg/dL Very low density lipoprotein (VLDL) cholesterol measurementOrdered By: Buzz Rainey 11-03-2024 VLDL Cholesterol 21 mg/dL 5-40 [facility] White blood cell (WBC) count Ordered By: Buzz Rainey on 11-03-2024 WBC (Bld) [#/Vol] 5.0 10*3/uL 4.4-11.0 [facility] Bedside Glucoseon 11-01-2024 FINGERSTICK GLU 163 mg/dL High 74-106 [facility] Comment on above: Result Comment: ARNOLD GEMENT OF PATIENT CARE PER NURSING PROTOCOL Performed By: #### L 501.080 ####[facility] [address] [facility] [address] FINGERSTICK GLU 212 mg/dL High [address] [place] [address] Comment on above: Result Comment: ARNOLD GEMENT OF PATIENT CARE PER NURSING PROTOCOL Performed By: #### L 501.080 #### [facility] [address] [facility] [address] FINGERSTICK GLU 125 mg/dL [address] Comment on above: Result Comment: ARNOLD GEMENT OF PATIENT CARE PER NURSING PROTOCOL Performed By: #### L 501.080 #### [facility] [address] [place], [address] [facility] at [facility] deOrdered By: Sung Rhodes on 11-01-2024 Bedside Glucose (Misc Panel) 163 mg/dL High [facility]106 [facility] Comment on above: MANAGEMENT OF PATIEN T CARE PER NURSING PROTOCOL Bedside Glucoseon 10-31-2024 FINGERSTICK GLU 125 mg/dL High [facility]106 [facility] Comment on above: Result Comment: ARNOLD GEMENT OF PATIENT CARE PER NURSING PROTOCOL Performed By: #### L 501.080 #### [facility] [address] [facility] [address] FINGERSTICK GLU 136 mg/dL [address] Comment on above: Result Comment: ARNOLD GEMENT OF PATIENT CARE PER NURSING PROTOCOL Performed By: #### L 501.080 #### [facility] [address] [place], [address] FINGERSTICK GLU 207 mg/dL High 74-106 [facility] Comment on above: Result Comment: ARNOLD GEMENT OF PATIENT CARE PER NURSING PROTOCOL Performed By: #### L 501.080 ####[facility] [address] [place], [address] FINGERSTICK GLU 297 mg/dL High [facility]106 [facility] Comment on above: Result Comment: ARNOLD GEMENT OF PATIENT CARE PER NURSING PROTOCOL Performed By: #### L 501.080 ####[facility] [address] [place], [address] Bedside Glucoseon 10-30-2024 FINGERSTICK GLU 216 mg/dL High [address] [place] [address] Comment on above: Result Comment: ARNOLD GEMENT OF PATIENT CARE PER NURSING PROTOCOL Performed By: #### L 501.080 #### [facility] [address] [place], [address] FINGERSTICK GLU 256 mg/dL High [address] [place] [address] Comment on above: Result Comment: ARNOLD GEMENT OF PATIENT CARE PER NURSING PROTOCOL Performed By: #### L 501.080 ####[facility] [address] [place], [address] FINGERSTICK GLU 197 mg/dL High -[address] [place] [address] Comment on above: Result Comment: ARNOLD GEMENT OF PATIENT CARE PER NURSING PROTOCOL Performed By: #### L 501.080 ####[facility] [address] [place], [address] FINGERSTICK GLU 177 mg/dL High [address] [place] [address] Comment on above: Result Comment: ARNOLD GEMENT OF PATIENT CARE PER NURSING PROTOCOL Performed By: #### L 501.080 #### [facility] [address] [place], [address] FINGERSTICK GLU 188 mg/dL High [address] [place] [address] Comment on above: Result Comment: ARNOLD GEMENT OF PATIENT CARE PER NURSING PROTOCOL Performed By: #### L 501.080 #### [facility] [address] [place], [address] Absolute neutrophil countOrd ered By: Roderick Mehran on 10-29-2024 Neutrophils (Bld) [#/Vol] 3.8 10*3/uL 2.0-7.7 [facility] Albumin to globulin ratioOrd ered By: Roderick Laurent on 10-29-2024 Albumin/Globulin [Mass ratio] 1.2 {ratio} 0.9-2.4 [facility] Basophil percentageOrdered B y: Roderick Mehran on 10-29-2024 Basophils/100 WBC (Bld) 0.7 % 0-1 [facility] Bedside Glucoseon 10-29-2024 FINGERSTICK GLU 255 mg/dL High [address] [place] [address] Comment on above: Result Comment: ARNOLD GEMENT OF PATIENT CARE PER NURSING PROTOCOL Performed By: #### L 501.080 #### [facility] [address] [place], [address] FINGERSTICK GLU 214 mg/dL [address] Comment on above: Result Comment: ARNOLD GEMENT OF PATIENT CARE PER NURSING PROTOCOL Performed By: #### L 501.080 #### [facility] [address] [place], [address] FINGERSTICK GLU 189 mg/dL [address] Comment on above: Result Comment: ARNOLD GEMENT OF PATIENT CARE PER NURSING PROTOCOL Performed By: #### L 501.080 ####[facility] [address] [place], [address] FINGERSTICK GLU 161 mg/dL [address] Comment on above: Result Comment: ARNOLD GEMENT OF PATIENT CARE PER NURSING PROTOCOL Performed By: #### L 501.080 #### [facility] [address] [place], [address] FINGERSTICK GLU 198 mg/dL High 74-106 [facility] Comment on above: Result Comment: ARNOLD GEMENT OF PATIENT CARE PER NURSING PROTOCOL Performed By: #### L 501.080 #### [facility] [address] [place], [address] FINGERSTICK GLU 328 mg/dL High 74-106 [facility] Comment on above: Result Comment: ARNOLD GEMENT OF PATIENT CARE PER NURSING PROTOCOL Performed By: #### L 501.080 #### [facility] [address] [place], [address] Bilirubin, totalOrdered By: Roderick Laurent on 10-29-2024 Bilirubin [Mass/Vol] 0.60 mg/dL 0.20-1.00 [facility] Comment on above: For patients on eltr ombopag therapy, use of Dimension [place] TBIL is not recommended. Blood urea nitrogen (BUN)/cr eatinine ratioOrdered By: Roderick Laurent on 10-29-2024 Urea nitrogen/Creatinine [Mass ratio] 23.6 mg/mg High 10-20 [facility] CBC W/Diff, Automatedon 12-0 Absolute Lymph 0.93 X10 3/uL Normal 0.83-4.51 [facility] Comment on above: Performed By: #### L 500.4050, L100.0100 ####[facility] [address] [place], [address] Absolute Neut 3.8 X10 3/uL Normal 2.0-7.7 [facility] Comment on above: Performed By: #### L [id number], L100.0100 ####[facility] [address] [place], [address] Basophils/100 WBC (Bld) 0.7 % Normal 0-1 [facility] Comment on above: Performed By: #### L [id number], L100.0100 ####[facility] [address] [place], [address] Eosinophils/100 WBC (Bld) 3.5 % Normal 0-5 [facility] Comment on above: Performed By: #### L [id number], L100.0100 ####[facility] [address] [place], [address] Erythrocyte distribution width (RBC) [Ratio] 11.9 % Normal 11.6-14.6 [facility] Comment on above: Performed By: #### L [id number], L100.0100 ####[facility] [address] [place], [address] Hematocrit (Bld) [Volume fraction] 40.5 % Normal 40-54 [facility] Comment on above: Performed By: #### L [id number], L100.0100 ####[facility] [address] [place], [address] Hemoglobin (Bld) [Mass/Vol] 13.6 g/dL Normal 13.0-16.5 [facility] Comment on above: Performed By: #### L [id number], L100.0100 ####[facility] [address] [place], [address] IG% 0.200 Normal 0.0-0.9 [facility] Comment on above: Result Comment: IG% - Immature Granulocytes (promyelocytes, myelocytes and metamyelocytes) > 1% indicates that a LEFT SHIFT is Present. Performed By: #### L [id number], L100.0100 ####[facility] [address] [place], [address] Lymphocytes/100 WBC (Bld) 16.2 % Low 19-41 [facility] Comment on above: Performed By: #### L [id number], L100.0100 ####[facility] [address] [place], [address] MCH (RBC) [Entitic mass] 33.8 pg High 27.0-32.0 [facility] Comment on above: Performed By: #### L 500.4050, L100.0100 ####[facility] [address] [place], [address] MCHC (RBC) [Mass/Vol] 33.6 g/dL Normal 32-36 [facility] Comment on above: Performed By: #### L [id number], L100.0100 ####[facility] [address] [place], [address] MCV (RBC) [Entitic vol] 100.7 fL High 80-94 [facility] Comment on above: Performed By: #### L [id number], L100.0100 ####[facility] [address] [place], [address] Monocytes/100 WBC (Bld) 12.5 % High 0-10 [facility] Comment on above: Performed By: #### L [id number], L100.0100 ####[facility] [address] [place], [address] Neutrophils/100 WBC (Bld) 66.9 % Normal 47-70 [facility] Comment on above: Performed By: #### L [id number], L100.0100 ####[facility] [address] [place], [address] Nucleated RBC (Bld) [#/Vol] 0 10*3/uL Normal 0-5 [facility] Comment on above: Performed By: #### L [id number], L100.0100 ####[facility] [address] [place], [address] Platelet mean volume (Bld) [Entitic vol] 9.2 fL Normal 6.2-12.0 [facility] Comment on above: Performed By: #### L 500.4050, L100.0100 ####[facility] [address] [place], [address] Platelets (Bld) [#/Vol] 230 10*3/uL Normal 150-450 [facility] Comment on above: Performed By: #### L 500.4050, L100.0100 ####[facility] [address] [place], [address] RBC (Bld) [#/Vol] 4.02 10*6/uL Low 4.6-6.2 [facility] Comment on above: Performed By: #### L 500.4050, L100.0100 ####[facility] [address] [place], [address] RDW SD 44.6 fl High 35.1-43.9 [facility] Comment on above: Performed By: #### L [id number], L100.0100 ####[facility] [address] [place], [address] WBC (Bld) [#/Vol] 5.7 10*3/uL Normal 4.4-11.0 [facility] Comment on above: Performed By: #### L 500.4050, L100.0100 ####[facility] [address] [place], [address] Carbon dioxide measurementOr dered By: Roderick Laurent on 10-29-2024 CO2 [Moles/Vol] 26.0 mmol/L 21.0-32.0 [facility] Chloride measurementOrdered By: Roderick Laurent on 10-29-2024 Chloride [Moles/Vol] 105 mmol/L 98-107 [facility] Comprehensive Metabolic Prof ilon 10-29-2024 Albumin [Mass/Vol] 3.5 g/dL Normal 3.2-5.0 [facility] Comment on above: Performed By: #### L 501.080 #### [facility] [address] [place], [address] Albumin/Globulin [Mass ratio] 1.2 {ratio} Normal 0.9-2.4 [facility] Comment on above: Performed By: #### L 501.080 #### [facility] [address] [place], [address] ALK P 64 U/L Normal 45-117 [facility] Comment on above: Performed By: #### L 501.080 #### [facility] [address] [place], [address] ALT [Catalytic activity/Vol] 15 U/L Low 16-61 [facility] Comment on above: Performed By: #### L 501.080 #### [facility] [address] [place], [address] AST [Catalytic activity/Vol] 22 U/L Normal 15-37 [facility] Comment on above: Performed By: #### L 501.080 #### [facility] [address] [place], [address] Bilirubin [Mass/Vol] 0.60 mg/dL Normal 0.20-1.00 [facility] Comment on above: Result Comment: For patients on eltrombopag therapy, use of Dimension [place] TBIL is not recommended. Performed By: #### L 501.080 #### [facility] [address] [place], [address] BUN/CRE 23.6 RATIO High 10-20 [facility] Comment on above: Performed By: #### L 501.080 #### [facility] [address] [place], [address] CA,Total 8.9 mg/dL Normal 8.5-10.1 [facility] Comment on above: Performed By: #### L 501.080 #### [facility] [address] [place], [address] Chloride [Moles/Vol] 105 mmol/L Normal 98-107 [facility] Comment on above: Performed By: #### L 501.080 #### [facility] [address] [place], [address] CO2 [Moles/Vol] 26.0 mmol/L Normal 21.0-32.0 [facility] Comment on above: Performed By: #### L 501.080 #### [facility] [address] [place], [address] Creatinine [Mass/Vol] 1.57 mg/dL High 0.70-1.30 [facility] Comment on above: Result Comment: The validity of the calculated GFR GFRAA in patients over 70 years has not been determined. Clinical correlation is essential. Performed By: #### L 501.080 #### [facility] [address] [place], [address] ECRCL 38.64 ml/min Normal [facility] Comment on above: Performed By: #### L 501.080 #### [facility] [address] [place], [address] EST GFR - AA 55 mL/min Low >60 [facility] Comment on above: Result Comment: Afri can Dominican GFR Calc Performed By: #### L 501.080 #### [facility] [address] [place], [address] GAP 7 Normal 5-15 [facility] Comment on above: Performed By: #### L 501.080 #### [facility] [address] [place], [address] GFR/1.73 sq M.predicted among non-blacks MDRD (S/P/Bld) [Vol rate/Area] 45 mL/min/{1.73_m2} Low >60 [facility] Comment on above: Result Comment: Non- GFR Calc Performed By: #### L 501.080 #### [facility] [address] [place], [address] Globulin (S) [Mass/Vol] 2.9 g/dL Normal 2.2-4.2 [facility] Comment on above: Performed By: #### L 501.080 #### [facility] [address] [place], [address] Glucose [Mass/Vol] 212 mg/dL High 74-106 [facility] Comment on above: Result Comment: Gluc ose result greater than or equal to 200 mg/dL suggests DIABETES MELLITUS per A.D.A. criteria. Performed By: #### L 501.080 #### [facility] [address] [place], [address] Potassium [Moles/Vol] 4.4 mmol/L Normal 3.5-5.1 [facility] Comment on above: Performed By: #### L 501.080 #### [facility] [address] [place], [address] Sodium [Moles/Vol] 138 mmol/L Normal 136-145 [facility] Comment on above: Performed By: #### L 501.080 #### [facility] [address] [place], [address] T PROT 6.4 g/dL Normal 6.4-8.2 [facility] Comment on above: Performed By: #### L 501.080 #### [facility] [address] [place], [address] Urea nitrogen [Mass/Vol] 37 mg/dL High 7-18 [facility] Comment on above: Performed By: #### L 501.080 #### [facility] [address] [place], [address] Eosinophil percentageOrdered By: Roderick Laurent on 10-29-2024 Eosinophils/100 WBC (Bld) 3.5 % 0-5 [facility] Erythrocyte distribution wid th (RBC) [Ratio]Ordered By: Roderick Laurent on 10-29-2024 Erythrocyte distribution width (RBC) [Entitic vol] 44.6 fL High 35.1-43.9 [facility] Erythrocyte distribution wid th ratioOrdered By: Roderick Laurent on 10-29-2024 Erythrocyte distribution width (RBC) [Ratio] 11.9 % 11.6-14.6 [facility] Estimated glomerular filtrat ion rate (GFR) AmericanOrdered By: Roderick Laurent on 10-29-2024 Estimated GFR (MDRD) Amer 55 mL/min Low >60 [facility] Comment on above: GFR Calc Estimation of creatinine chapito aranceOrdered By: Roderick Laurent on 10-29-2024 Estimated Creatinine Clearance Calc 38.64 ml/min [facility] Glomerular filtration rate ( GFR) estimationOrdered By: Roderick Laurent on 10-29-2024 Estimated GFR (MDRD) Non-Af Amer 45 mL/min Low >60 [facility] Comment on above: Non- GFR Calc Glucose measurementOrdered B y: Roderick Laurent on 10-29-2024 Glucose [Mass/Vol] 212 mg/dL High 74-106 [facility] Comment on above: Glucose result great er than or equal to 200 mg/dLsuggests DIABETES MELLITUS per A.D.A. criteria. Hematocrit Auto (Bld) [Volum e fraction]Ordered By: Roderick Laurent on 10-29-2024 Hematocrit (Bld) [Volume fraction] 40.5 % 40-54 [facility] Hemoglobin measurementOrdere d By: Roderick Laurent on 10-29-2024 Hemoglobin (Bld) [Mass/Vol] 13.6 g/dL 13.0-16.5 [facility] Immature granulocytes/100 WB C Auto (Bld)Ordered By: Roderick Laurent on 10-29-2024 Immature granulocytes/100 WBC (Bld) 0.200 % 0.0-0.9 [facility] Comment on above: IG% - Immature Granu locytes (promyelocytes, myelocytes and metamyelocytes) > 1% indicates that a LEFT SHIFT is Present. Laboratory - Chemistry and C hemistry - challengeOrdered By: Roderick Laurent on 10-29-2024 AST [Catalytic activity/Vol] 22 U/L 15-37 [facility] Lymphocytes Auto (Unsp spec) [#/Vol]Ordered By: Roderick Laurent on 10-29-2024 Lymphocytes (Bld) [#/Vol] 0.93 10*3/uL 0.83-4.51 [facility] Lymphocytes/100 WBC Auto (Un sp spec)Ordered By: Roderick Laurent on 10-29-2024 Lymphocytes/100 WBC (Bld) 16.2 % Low 19-41 [facility] MCV (mean corpuscular volume ) determinationOrdered By: Roderick Laurent on 10-29-2024 MCV (RBC) [Entitic vol] 100.7 fL High 80-94 [facility] Mean corpuscular hemoglobin (MCH) determinationOrdered By: Roderick Laurent on 10-29-2024 MCH (RBC) [Entitic mass] 33.8 pg High 27.0-32.0 [facility] Mean corpuscular hemoglobin concentration (MCHC) determinationOrdered By: Roderick aLurent on 10-29-2024 MCHC (RBC) [Mass/Vol] 33.6 g/dL 32-36 [facility] Mean platelet volume determi nationOrdered By: Roderick Laurent on 10-29-2024 Platelet mean volume (Bld) [Entitic vol] 9.2 fL 6.2-12.0 [facility] Monocyte percentageOrdered B y: Roderick Laurent on 10-29-2024 Monocytes/100 WBC (Bld) 12.5 % High 0-10 [facility] Neutrophil percentageOrdered By: Roderick Laurent on 10-29-2024 Neutrophils/100 WBC (Bld) 66.9 % 47-70 [facility] Nucleated red blood cell per centageOrdered By: Roderick Laurent on 10-29-2024 Nucleated RBC/100 WBC (Bld) [Ratio] 0 % 0-5 [facility] Platelet countOrdered By: Marilu Laurent on 10-29-2024 Platelets (Bld) [#/Vol] 230 10*3/uL 150-450 [facility] Potassium measurementOrdered By: Roderick Laurent on 10-29-2024 Potassium [Moles/Vol] 4.4 mmol/L 3.5-5.1 [facility] RBC Auto (Bld) [#/Vol]Ordere d By: Roderick Laurent on 10-29-2024 RBC (Bld) [#/Vol] 4.02 10*6/uL Low 4.6-6.2 [facility] Serum anion gap measurementO rdered By: Roderick Laurent on 10-29-2024 Anion gap [Moles/Vol] 7 mmol/L 5-15 [facility] Serum globulin measurementOr dered By: Roderick Laurent on 10-29-2024 Globulin (S) [Mass/Vol] 2.9 g/dL 2.2-4.2 [facility] Serum or plasma alanine nix otransferase (ALT) measurementOrdered By: Roderick Laurent on 10-29-2024 ALT [Catalytic activity/Vol] 15 U/L Low 16-61 [facility] Serum or plasma albumin jesenia urement (mass/volume)Ordered By: Roderick Laurent on 10-29-2024 Albumin [Mass/Vol] 3.5 g/dL 3.2-5.0 [facility] Serum or plasma alkaline radha sphatase measurementOrdered By: Roderick Laurent on 10-29-2024 ALP [Catalytic activity/Vol] 64 U/L 45-117 [facility] Serum or plasma calcium jesenia urement (mass/volume)Ordered By: Roderick Laurent on 10-29-2024 Calcium [Mass/Vol] 8.9 mg/dL 8.5-10.1 [facility] Serum or plasma creatinine m easurement (mass/volume)Ordered By: Roderick Laurent on 10-29-2024 Creatinine [Mass/Vol] 1.57 mg/dL High 0.70-1.30 [facility] Comment on above: The validity of the calculated GFR & GFRAA in patients over 70 years has not been determined. Clinical correlation is essential. Serum or plasma urea nitroge n measurement (mass/volume)Ordered By: Roderick Laurent on 10-29-2024 Urea nitrogen [Mass/Vol] 37 mg/dL High 7-18 [facility] Sodium levelOrdered By: Roderick Laurent on 10-29-2024 Sodium [Moles/Vol] 138 mmol/L 136-145 [facility] Total proteinOrdered By: Katie Laurent on 10-29-2024 Protein [Mass/Vol] 6.4 g/dL 6.4-8.2 [facility] White blood cell (WBC) count Ordered By: Roderick Laurent on 10-29-2024 WBC (Bld) [#/Vol] 5.7 10*3/uL 4.4-11.0 [facility] Bedside Glucoseon 10-28-2024 FINGERSTICK GLU 191 mg/dL High 74-106 [facility] Comment on above: Result Comment: ARNOLD GEMENT OF PATIENT CARE PER NURSING PROTOCOL Performed By: #### L 501.080 #### [facility] [address] [place], [address] FINGERSTICK GLU 130 mg/dL High -106 [facility] Comment on above: Result Comment: ARNOLD GEMENT OF PATIENT CARE PER NURSING PROTOCOL Performed By: #### L 501.080 #### [facility] [address] [place], [address] FINGERSTICK GLU 204 mg/dL High 74-106 [facility] Comment on above: Result Comment: ARNOLD GEMENT OF PATIENT CARE PER NURSING PROTOCOL Performed By: #### L 501.080 #### [facility] [address] [place], [address] CBC W/Diff, Automatedon 12-0 Absolute Lymph 1.02 X10 3/uL Normal 0.83-4.51 [facility] Comment on above: Performed By: #### L 100.0100, L500.4050, L501.9520 #### [facility] [address] [place], [address] Absolute Neut 3.9 X10 3/uL Normal 2.0-7.7 [facility] Comment on above: Performed By: #### L 100.0100, L500.4050, L501.9520 #### [facility] [address] [place], [address] Basophils/100 WBC (Bld) 0.5 % Normal 0-1 [facility] Comment on above: Performed By: #### L 100.0100, L500.4050, L501.9520 #### [facility] [address] [place], [address] Eosinophils/100 WBC (Bld) 3.0 % Normal 0-5 [facility] Comment on above: Performed By: #### L 100.0100, L500.4050, [id number] #### [facility] [address] [place], [address] Erythrocyte distribution width (RBC) [Ratio] 11.8 % Normal 11.6-14.6 [facility] Comment on above: Performed By: #### L 100.0100, L500.4050, [id number] #### [facility] [address] [place], [address] Hematocrit (Bld) [Volume fraction] 40.0 % Normal 40-54 [facility] Comment on above: Performed By: #### L 100.0100, L500.4050, [id number] #### [facility] [address] [place], [address] Hemoglobin (Bld) [Mass/Vol] 13.5 g/dL Normal 13.0-16.5 [facility] Comment on above: Performed By: #### L 100.0100, L500.4050, L501.9520 #### [facility] [address] [place], [address] IG% 0.300 Normal 0.0-0.9 [facility] Comment on above: Result Comment: IG% - Immature Granulocytes (promyelocytes, myelocytes and metamyelocytes) > 1% indicates that a LEFT SHIFT is Present. Performed By: #### L 100.0100, L500.4050, L501.9520 #### [facility] [address] [place], [address] Lymphocytes/100 WBC (Bld) 17.2 % Low 19-41 [facility] Comment on above: Performed By: #### L 100.0100, L500.4050, [id number] #### [facility] [address] [place], [address] MCH (RBC) [Entitic mass] 33.4 pg High 27.0-32.0 [facility] Comment on above: Performed By: #### L 100.0100, L500.4050, [id number] #### [facility] [address] [place], [address] MCHC (RBC) [Mass/Vol] 33.8 g/dL Normal 32-36 [facility] Comment on above: Performed By: #### L 100.0100, L500.4050, [id number] #### [facility] [address] [place], [address] MCV (RBC) [Entitic vol] 99.0 fL High 80-94 [facility] Comment on above: Performed By: #### L 100.0100, L500.4050, [id number] #### [facility] [address] [place], [address] Monocytes/100 WBC (Bld) 13.9 % High 0-10 [facility] Comment on above: Performed By: #### L 100.0100, L500.4050, [id number] #### [facility] [address] [place], [address] Neutrophils/100 WBC (Bld) 65.1 % Normal 47-70 [facility] Comment on above: Performed By: #### L 100.0100, L500.4050, [id number] #### [facility] [address] [place], [address] Nucleated RBC (Bld) [#/Vol] 0 10*3/uL Normal 0-5 [facility] Comment on above: Performed By: #### L 100.0100, L500.4050, L501.9520 #### [facility] [address] [place], [address] Platelet mean volume (Bld) [Entitic vol] 9.4 fL Normal 6.2-12.0 [facility] Comment on above: Performed By: #### L 100.0100, L500.4050, [id number] #### [facility] [address] [place], [address] Platelets (Bld) [#/Vol] 251 10*3/uL Normal 150-450 [facility] Comment on above: Performed By: #### L 100.0100, L500.4050, [id number] #### [facility] [address] [place], [address] RBC (Bld) [#/Vol] 4.04 10*6/uL Low 4.6-6.2 [facility] Comment on above: Performed By: #### L 100.0100, L500.4050, [id number] #### [facility] [address] [place], [address] RDW SD 43.0 fl Normal 35.1-43.9 [facility] Comment on above: Performed By: #### L 100.0100, L500.4050, [id number] #### [facility] [address] [place], [address] WBC (Bld) [#/Vol] 5.9 10*3/uL Normal 4.4-11.0 [facility] Comment on above: Performed By: #### L 100.0100, L500.4050, L501.9520 #### [facility] [address] [place], [address] Comprehensive Metabolic Prof ilon 10-28-2024 Albumin [Mass/Vol] 3.6 g/dL Normal 3.2-5.0 [facility] Comment on above: Performed By: #### L 100.0100, L500.4050, L501.9520 #### [facility] [address] [place], [address] Albumin/Globulin [Mass ratio] 1.1 {ratio} Normal 0.9-2.4 [facility] Comment on above: Performed By: #### L 100.0100, L500.4050, [id number] #### [facility] [address] [place], [address] ALK P 68 U/L Normal 45-117 [facility] Comment on above: Performed By: #### L 100.0100, L500.4050, [id number] #### [facility] [address] [place], [address] ALT [Catalytic activity/Vol] 24 U/L Normal 16-61 [facility] Comment on above: Performed By: #### L 100.0100, L500.4050, [id number] #### [facility] [address] [place], [address] AST [Catalytic activity/Vol] 25 U/L Normal 15-37 [facility] Comment on above: Performed By: #### L 100.0100, L500.4050, [id number] #### [facility] [address] [place], [address] Bilirubin [Mass/Vol] 1.00 mg/dL Normal 0.20-1.00 [facility] Comment on above: Result Comment: For patients on eltrombopag therapy, use of Dimension [place] TBIL is not recommended. Performed By: #### L 100.0100, L500.4050, L501.9520 #### [facility] [address] [place], [address] BUN/CRE 16.7 RATIO Normal 10-20 [facility] Comment on above: Performed By: #### L 100.0100, L500.4050, [id number] #### [facility] [address] [place], [address] CA,Total 8.7 mg/dL Normal 8.5-10.1 [facility] Comment on above: Performed By: #### L 100.0100, L500.4050, [id number] #### [facility] [address] [place], [address] Chloride [Moles/Vol] 105 mmol/L Normal 98-107 [facility] Comment on above: Performed By: #### L 100.0100, L500.4050, [id number] #### [facility] [address] [place], [address] CO2 [Moles/Vol] 23.0 mmol/L Normal 21.0-32.0 [facility] Comment on above: Performed By: #### L 100.0100, L500.4050, [id number] #### [facility] [address] [place], [address] Creatinine [Mass/Vol] 1.20 mg/dL Normal 0.70-1.30 [facility] Comment on above: Result Comment: The validity of the calculated GFR GFRAA in patients over 70 years has not been determined. Clinical correlation is essential. Performed By: #### L 100.0100, L500.4050, L501.9520 #### [facility] [address] [place], [address] ECRCL 50.55 ml/min Normal [facility] Comment on above: Performed By: #### L 100.0100, L500.4050, [id number] #### [facility] [address] [place], [address] EST GFR - AA 74 mL/min Normal >60 [facility] Comment on above: Result Comment: Afri can Dominican GFR Calc Performed By: #### L 100.0100, L500.4050, [id number] #### [facility] [address] [place], [address] GAP 8 Normal 5-15 [facility] Comment on above: Performed By: #### L 100.0100, L500.4050, L501.9520 #### [facility] [address] [place], [address] GFR/1.73 sq M.predicted among non-blacks MDRD (S/P/Bld) [Vol rate/Area] 62 mL/min/{1.73_m2} Normal >60 [facility] Comment on above: Result Comment: Non- GFR Calc Performed By: #### L 100.0100, L500.4050, L501.9520 #### [facility] [address] [place], [address] Globulin (S) [Mass/Vol] 3.3 g/dL Normal 2.2-4.2 [facility] Comment on above: Performed By: #### L 100.0100, L500.4050, L501.9520 #### [facility] [address] [place], [address] Glucose [Mass/Vol] 130 mg/dL High 74-106 [facility] Comment on above: Result Comment: Fast ing Glucose result greater than or equal to 126 mg/dL suggests DIABETES MELLITUS per A.D.A. criteria. Performed By: #### L 100.0100, L500.4050, L501.9520 #### [facility] [address] [place], [address] Potassium [Moles/Vol] 3.9 mmol/L Normal 3.5-5.1 [facility] Comment on above: Performed By: #### L 100.0100, L500.4050, [id number] #### [facility] [address] [place], [address] Sodium [Moles/Vol] 136 mmol/L Normal 136-145 [facility] Comment on above: Performed By: #### L 100.0100, L500.4050, [id number] #### [facility] [address] [place], [address] T PROT 6.9 g/dL Normal 6.4-8.2 [facility] Comment on above: Performed By: #### L 100.0100, L500.4050, [id number] #### [facility] [address] [place], [address] Urea nitrogen [Mass/Vol] 20 mg/dL High 7-18 [facility] Comment on above: Performed By: #### L 100.0100, L500.4050, L501.9520 #### [facility] [address] [place], [address] Culture, Anaerobic Any Sourc adrianna 10-28-2024 CUAN List Antibiotics Las t 48 Hours? NONE List Antibiotics to be Started? NONE No anaerobic bacteria isolated. Normal [facility] Comment on above: Performed By: #### M 100.4001, M100.3000, M100.2000 ####[facility] [id number] [place], [address] TSH QnOrdered By: Sulma maxwell on 10-28-2024 Thyroid Stimulating Hormone (TSH) 4.070 uIU/mL High 0.358-3.740 [facility] Thyroid Stim Hormone (TSH)on 10-28-2024 TSH 4.070 uIU/mL High 0.358-3.740 [facility] Comment on above: Performed By: #### L 100.0100, L500.4050, L501.9520 #### [facility] [address] [place], [place], [address] Urine Cultureon 10-28-2024 URC Mixed Gram Pos Gram Neg Org Campbell Count 11,000-25,000 MIXC Mixed contaminants. Submit a new specimen if indicated. Normal [facility] Comment on above: Performed By: #### M 100.2200 ####[facility] [id number] [place], [address] 12 Lead EKGon 10-27-2024 12 Lead EKG [facility] [address] [place] [address] 12 Lead EKG 10/27/24 1027 MR#: [id number] Acct: [id number] Name: FLEX KLINE Rep #: [id number] : 1940 84 From: Garfield Thornton MD Attending Dr: Dr. Roderick Laurent DO Status: A DM IN Ordering Dr: Velasquez Morales DO Date: 4 Location: [facility] [place] Sex: M C Admitted: 10/27/24 Test Reason [...] normal ECG Confirmed by Garfield Thornton ([id number]), continuity editor ERROL AIKEN ([id number]) on 10/30/2024 6:53:52 AM Referred By: Confirmed By: Garfield Thornton 10/30/24 0653 Date Garfield Thornton MD CC: Dr. Velasquez Morales DO; Dr. Roderick Laurent DO; Dr. Felix Montelongo MD Signed Normal [facility] BNP (brain natriuretic pepti de measurement)Ordered By: Velasquez Morales on 10-27-2024 Natriuretic peptide B (Bld) [Mass/Vol] 133.8 pg/mL High 0-100 [facility] BNP,B-Type NATRIURETIC PEPTI Camryn 10-27-2024 Natriuretic peptide B (Bld) [Mass/Vol] 133.8 pg/mL High 0-100 [facility] Comment on above: Performed By: #### L 501.080 #### [facility] [address] [place], [address] Basic Metabolic Profile (BMP )on 10-27-2024 BUN/CRE 17.1 RATIO Normal 10-20 [facility] Comment on above: Order Comment: 1Y Performed By: #### L 501.080 #### [facility] [address] [place], [address] CA,Total 9.2 mg/dL Normal 8.5-10.1 [facility] Comment on above: Order Comment: 1Y Performed By: #### L 501.080 #### [facility] [address] [place], [address] Chloride [Moles/Vol] 100 mmol/L Normal 98-107 [facility] Comment on above: Order Comment: 1Y Performed By: #### L 501.080 #### [facility] [address] [place], [address] CO2 [Moles/Vol] 27.0 mmol/L Normal 21.0-32.0 [facility] Comment on above: Order Comment: 1Y Performed By: #### L 501.080 #### [facility] [address] [place], [address] Creatinine [Mass/Vol] 1.46 mg/dL High 0.70-1.30 [facility] Comment on above: Order Comment: 1Y Result Comment: The validity of the calculated GFR GFRAA in patients over 70 years has not been determined. Clinical correlation is essential. Performed By: #### L 501.080 #### [facility] [address] [place], [address] ECRCL 41.55 ml/min Normal [facility] Comment on above: Order Comment: 1Y Performed By: #### L 501.080 #### [facility] [address] [place], [address] EST GFR - AA 59 mL/min Low >60 [facility] Comment on above: Order Comment: 1Y Result Comment: Afri can Dominican GFR Calc Performed By: #### L 501.080 #### [facility] [address] [place], [address] GAP 7 Normal 5-15 [facility] Comment on above: Order Comment: 1Y Performed By: #### L 501.080 #### [facility] [address] [place], [address] GFR/1.73 sq M.predicted among non-blacks MDRD (S/P/Bld) [Vol rate/Area] 49 mL/min/{1.73_m2} Low >60 [facility] Comment on above: Order Comment: 1Y Result Comment: Non- GFR Calc Performed By: #### L 501.080 #### [facility] [address] [place], [address] Glucose [Mass/Vol] 158 mg/dL High 74-106 [facility] Comment on above: Order Comment: 1Y Result Comment: Fast ing Glucose result greater than or equal to 126 mg/dL suggests DIABETES MELLITUS per A.D.A. criteria. Performed By: #### L 501.080 #### [facility] [address] [place], [address] Potassium [Moles/Vol] 4.4 mmol/L Normal 3.5-5.1 [facility] Comment on above: Order Comment: 1Y Result Comment: Mode rate Hemolysis, Result may be falsely increased. Performed By: #### L 501.080 #### [facility] [address] [place], [address] Sodium [Moles/Vol] 133 mmol/L Low 136-145 [facility] Comment on above: Order Comment: 1Y Performed By: #### L 501.080 #### [facility] [address] [place], [address] Urea nitrogen [Mass/Vol] 25 mg/dL High 7-18 [facility] Comment on above: Order Comment: 1Y Performed By: #### L 501.080 #### [facility] [address] [place], [address] Bedside Glucoseon 10-27-2024 FINGERSTICK GLU 100 mg/dL Normal 74-106 [facility] Comment on above: Result Comment: ARNOLD HAYWARD OF PATIENT CARE PER NURSING PROTOCOL Performed By: #### L 501.080 #### [facility] [address] [place], [place], [address] Bilirubin Test strip Ql (U)O rdered By: Velasquez Morales on 10-27-2024 Bilirubin Ql (U) Negative Negative [facility] CBC W/Diff, Automatedon 12-0 Absolute Neut Normal 2.0-7.7 [facility] Comment on above: Result Comment: James philippe via OM: Ordered Performed By: #### L 501.080 #### [facility] [address] [place], [address] HCT Normal 40-54 [facility] Comment on above: Result Comment: James philippe via OM: Ordered Performed By: #### L 501.080 #### [facility] [address] [place], [address] HGB Normal 13.0-16.5 [facility] Comment on above: Result Comment: Canc elled via OM: MD Ordered Performed By: #### L 501.080 #### [facility] [address] [place], [address] MCH Normal 27.0-32.0 [facility] Comment on above: Result Comment: Canc elled via OM: MD Ordered Performed By: #### L 501.080 #### [facility] [address] [place], [address] MCHC Normal 32-36 [facility] Comment on above: Result Comment: Canc elled via OM: MD Ordered Performed By: #### L 501.080 #### [facility] [address] [place], [address] MCV Normal 80-94 [facility] Comment on above: Result Comment: Canc elled via OM: MD Ordered Performed By: #### L 501.080 #### [facility] [address] [place], [address] NEUT% Normal 47-70 [facility] Comment on above: Result Comment: Canc elled via OM: MD Ordered Performed By: #### L 501.080 #### [facility] [address] [place], [address] PLT Normal 150-450 [facility] Comment on above: Result Comment: Canc elled via OM: MD Ordered Performed By: #### L 501.080 #### [facility] [address] [place], [address] RBC Normal 4.6-6.2 [facility] Comment on above: Result Comment: Canc elled via OM: MD Ordered Performed By: #### L 501.080 #### [facility] [address] [place], [address] RDW CV Normal 11.6-14.6 [facility] Comment on above: Result Comment: Canc elled via OM: MD Ordered Performed By: #### L 501.080 #### [facility] [address] [place], [address] RDW SD Normal 35.1-43.9 [facility] Comment on above: Result Comment: Canc elled via OM: MD Ordered Performed By: #### L 501.080 #### [facility] [address] [place], [address] WBC Normal 4.4-11.0 [facility] Comment on above: Result Comment: Canc elled via OM: MD Ordered Performed By: #### L 501.080 #### [facility] [address] [place], [address] Absolute Lymph 0.82 X10 3/uL Low 0.83-4.51 [facility] Comment on above: Performed By: #### L 501.080 #### [facility] [address] [place], [address] Absolute Neut 4.3 X10 3/uL Normal 2.0-7.7 [facility] Comment on above: Performed By: #### L 501.080 #### [facility] [address] [place], [address] Basophils/100 WBC (Bld) 0.7 % Normal 0-1 [facility] Comment on above: Performed By: #### L 501.080 #### [facility] [address] [place], [address] Eosinophils/100 WBC (Bld) 2.2 % Normal 0-5 [facility] Comment on above: Performed By: #### L 501.080 #### [facility] [address] [place], [address] Erythrocyte distribution width (RBC) [Ratio] 11.9 % Normal 11.6-14.6 [facility] Comment on above: Performed By: #### L 501.080 #### [facility] [address] [place], [address] Hematocrit (Bld) [Volume fraction] 41.5 % Normal 40-54 [facility] Comment on above: Performed By: #### L 501.080 #### [facility] [address] [place], [address] Hemoglobin (Bld) [Mass/Vol] 14.6 g/dL Normal 13.0-16.5 [facility] Comment on above: Performed By: #### L 501.080 #### [facility] [address] [place], [address] IG% 0.300 Normal 0.0-0.9 [facility] Comment on above: Result Comment: IG% - Immature Granulocytes (promyelocytes, myelocytes and metamyelocytes) > 1% indicates that a LEFT SHIFT is Present. Performed By: #### L 501.080 #### [facility] [address] [place], [address] Lymphocytes/100 WBC (Bld) 14.1 % Low 19-41 [facility] Comment on above: Performed By: #### L 501.080 #### [facility] [address] [place], [address] MCH (RBC) [Entitic mass] 34.9 pg High 27.0-32.0 [facility] Comment on above: Performed By: #### L 501.080 #### [facility] [address] [place], [address] MCHC (RBC) [Mass/Vol] 35.2 g/dL Normal 32-36 [facility] Comment on above: Performed By: #### L 501.080 #### [facility] [address] [place], [address] MCV (RBC) [Entitic vol] 99.3 fL High 80-94 [facility] Comment on above: Performed By: #### L 501.080 #### [facility] [address] [place], [address] Monocytes/100 WBC (Bld) 9.3 % Normal 0-10 [facility] Comment on above: Performed By: #### L 501.080 #### [facility] [address] [place], [address] Neutrophils/100 WBC (Bld) 73.4 % High 47-70 [facility] Comment on above: Performed By: #### L 501.080 #### [facility] [address] [place], [address] Nucleated RBC (Bld) [#/Vol] 0 10*3/uL Normal 0-5 [facility] Comment on above: Performed By: #### L 501.080 #### [facility] [address] [place], [address] Platelet mean volume (Bld) [Entitic vol] 9.6 fL Normal 6.2-12.0 [facility] Comment on above: Performed By: #### L 501.080 #### [facility] [address] [place], [address] Platelets (Bld) [#/Vol] 256 10*3/uL Normal 150-450 [facility] Comment on above: Performed By: #### L 501.080 #### [facility] [address] [place], [address] RBC (Bld) [#/Vol] 4.18 10*6/uL Low 4.6-6.2 [facility] Comment on above: Performed By: #### L 501.080 #### [facility] [address] [place], [address] RDW SD 43.4 fl Normal 35.1-43.9 [facility] Comment on above: Performed By: #### L 501.080 #### [facility] [address] [place], [place], [address] WBC (Bld) [#/Vol] 5.8 10*3/uL Normal 4.4-11.0 [facility] Comment on above: Performed By: #### L 501.080 #### [facility] [address] [place], [place], [address] Chest 1 View (Portable)on Chest 1 View (Portable) [facility] Imaging Services [address] [facility] [place], [place] [address] Chest 1 View (Portable) MR#: [id number] Acct: [id number] Name: FLEX KLINE Rep #: [id number] : 1940 84 From: Clint Freire MD PCP: Dr. Felix Montelongo MD Status: PRE ER Study: Chest 1 View (Portable) Date of Exam: 10/27/24 Exam# [id number] Ordering Dr: Velasquez Morales DO [id number] STUDY: X-RAY CHEST REASON FOR EXAM: Male, [...] Velasquez Morales, DO; Dr. Felix Montelongo MD Shipping Coordinator: Signed Normal [facility] D-Dimer Quantitative (DVT/PE )on 10-27-2024 D-DIMER QUANT 0.50 FEU/ug/m High 0.27-0.49 [facility] Comment on above: Order Comment: CRITI SHIN VALUE CALLED TO TROY ROWELLFVQKEZJ90/06/24 1225 Cat Benito.RESULTS READ BACK BY SAME. Result Comment: D-Di augusta ELEVATED (>0.49): Additional studies and clinical assessments are indicated to conclude diagnosis of: Deep Vein Thrombosis (DVT) or Pulmonary Embolism (PE) Performed By: #### L 501.080 #### [facility] [address] [place], [place], [address] D-dimer measurement for deep venous thrombosisOrdered By: Velasquez Morales on 10-27-2024 D-Dimer Quantitative (PE/DVT) 0.50 FEU/ug/m High 0.27-0.49 [facility] Comment on above: D-Dimer ELEVATED (>0 .49): Additional studies and clinicalassessments are indicated to conclude diagnosis of:Deep Vein Thrombosis (DVT) or Pulmonary Embolism (PE) Echo Complete W/ Contraston 10-27-2024 Echo Complete W/ Contrast [facility] [address] [facility] [place] [address] Echo Complete W/ Contrast 10/28/24 0814 MR#: [id number] Acct: [id number] Name: FLEX KLINE Rep #: [id number] : 1940 84 From: Angela Ramirez MD [...] Physician: Sulma Romero Performed By: Velasquez Cox, [facility] 10/28/241446 Date Angela Ramirez MD CC: Dr. Roderick Laurent DO; Dr. Sulma Romero MD; Dr. Felix Montelongo MD Date Dictated: 10/28/24813 Date Transcribed: 10/28/241446 Shipping Coordinator: Signed Normal [facility] Emergency Department Summary on 10-27-2024 Emergency Department Summary [facility] Medical Records Department [address] [place] [address] Emergency Department Summary 10/27/24 MR#: [id number] Acct: [id number] Name: FLEX KLINE Rep #: [id number] : 1940 84 From: Velasquez Morales DO PCP: Dr. Felix Montelongo MD Status:ADM IN Location: [place] [id number] HPI History of Present Illness Chief Complaint: [...] mood and affect PFSH PFSH Medical History Diabetes GERD (gastroesophageal reflux disease) Cataract 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 heart disease of [place] coronary artery without angina pectoris Parkinson's disease [...] CAD (coron (more content not included)... Normal [facility] Epithelial cells.squamous LM Ql (Urine sed)Ordered By: Velasquez Morales on 10-27-2024 Epithelial cells.squamous LM.HPF (Urine sed) [#/Area] 0 /[HPF] 0-5 [facility] Glucose Ql (U)Ordered By: Korey Morales on 10-27-2024 Glucose (U) [Mass/Vol] 1000 mg/dL High Normal [facility] H AND P Exam - Hospitaliston 10-27-2024 H&P Exam - Hospitalist [facility] Medical Records Department [address] [place] [address] H P Exam - Hospitalist 10/27/24 1633 MR#: [id number] Acct: [id number] Name: FLEX KLINE Rep #: [id number] : 1940 84 From: Sulma Romero MD PCP: Dr. Felix Montelongo MD Status:ADM IN Location: [facility] [place]-6 HPI - General General Date of Admission: 10/27/24 Date of Service: 10/27/24 Chief Complaint: Weakness, CP, SOB HPI Narrative FLEX KLINE, is a 84-year-old male history of CKD, Parkinson's, CAD, BPH, diabetes, hypothyroidism presented [facility] ED 10/27/2024 with shortness of breath, chest [...] notice any change with exertion or rest. [facility] Medical History Diabetes GERD (gastroesophageal reflux disease) Cataract 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 heart disease of [place] coronary artery without angina pectoris Parkinson's disease [...] History o (more content not included)... Normal [facility] Influenza virus A and B and SARS-CoV-2 (COVID-19) and Respiratory syncytial virus RNAOrdered By: Velasquez Morales on 10-27-2024 SARS-CoV-2 (COVID-19) RNA ROSIE+probe Ql (Unsp spec) [facility] Ketones Test strip Ql (U)Ord ered By: Velasquez Kaiser on 10-27-2024 Ketones Ql (U) 5 mg/dl High Negative [facility] L501.4020on 10-27-2024 TROPONIN-I HS 9 pg/mL Normal 3.0-78.0 [facility] Comment on above: Result Comment: Plea se Note: New Test Units and Gender Specific Reference Ranges. For more information see Policy Stat Procedure [place] High Sensitivity Troponin (TNIH) and attachments. Performed By: #### L 501.4020 ####[facility] [address] [place], [address] L501.5425on 10-27-2024 TROPONIN-I HS 8 pg/mL Normal 3.0-78.0 [facility] Comment on above: Order Comment: 1Y Result Comment: Plea se Note: New Test Units and Gender Specific Reference Ranges. For more information see Policy Stat Procedure [place] High Sensitivity Troponin (TNIH) and attachments. Performed By: #### L 501.080 #### [facility] [address] [place], [address] M100.678on 10-27-2024 M100.678 Pending SARS-CoV-2 (COVID 19) Negative INFLUENZA A Negative INFLUENZA B Negative RSV PCR Negative Normal [facility] Comment on above: Performed By: #### M 100.678, L400.0001 ####[facility] [address] [place], [address] Magnesiumon 10-27-2024 Magnesium [Mass/Vol] 2.2 mg/dL Normal 1.6-2.6 [facility] Comment on above: Performed By: #### L 501.080 #### [facility] [address] [place], [place], [address] Magnesium measurementOrdered By: Velasquez Morales on 10-27-2024 Magnesium [Mass/Vol] 2.2 mg/dL 1.6-2.6 [facility] Microscopic analysis of urin e for red blood cells (RBC)Ordered By: Velasquez Morales on 10-27-2024 Urine RBC 0 SEEN /hpf 0-5 [facility] Mucus LM Ql (Urine sed)Order ed By: Velasquez Morales on 10-27-2024 Mucus Ql (Urine sed) 0 SEEN /hpf [facility] Nitrite Test strip Ql (U)Ord ered By: [place] Carmen on 10-27-2024 Nitrite Ql (U) Negative Negative [facility] Protein Test strip Ql (U)Ord ered By: [facility] on 10-27-2024 Protein Ql (U) 30 mg/dl High Negative [facility] Thyroid Stim Hormone (TSH)on 10-27-2024 TSH 2.580 uIU/mL Normal 0.358-3.740 [facility] Comment on above: Performed By: #### L 501.080 #### [facility] [address] [facility] [address] [place], [place], [address] Troponin IOrdered By: Velasquez Morales on 10-27-2024 Troponin I High Sensitivity 9 pg/mL 3.0-78.0 [facility] Comment on above: Please Note: New Luz Elena t Units and Gender Specific Reference Ranges. For more information see Policy Stat Procedure [place] High Sensitivity Troponin (TNIH) and attachments. Urinalysis, Completeon 10-27 BACTERIA 1+ /hpf Normal None Seen [facility] Comment on above: Order Comment: CLEAN CATCH Performed By: #### M 100.678, L400.0001 ####[facility] [address] [place], [address] WBC 10-25 SEEN Normal 0-5 [facility] Comment on above: Order Comment: CLEAN CATCH Performed By: #### M 100.678, L400.0001 ####[facility] [address] [place], [address] BILIRUBIN URINE Negative Normal Negative [facility] Comment on above: Order Comment: CLEAN CATCH Performed By: #### M 100.678, L400.0001 ####[facility] [address] [place], [address] Clarity (U) Clear Normal Clear [facility] Comment on above: Order Comment: CLEAN CATCH Performed By: #### M 100.678, L400.0001 ####[facility] [address] [place], [address] Color (U) Straw Normal Yellow [facility] Comment on above: Order Comment: CLEAN CATCH Performed By: #### M 100.678, L400.0001 ####[facility] [address] [place], [address] GLUCOSE, UR 1000 mg/dl Abnormal Normal [facility] Comment on above: Order Comment: CLEAN CATCH Performed By: #### M 100.678, L400.0001 ####[facility] [address] [place], [address] KETONE UR 5 mg/dl Abnormal Negative [facility] Comment on above: Order Comment: CLEAN CATCH Performed By: #### M 100.678, L400.0001 ####[facility] [address] [place], [address] LEUK ESTERASE 100 /ul Abnormal Negative [facility] Comment on above: Order Comment: CLEAN CATCH Performed By: #### M 100.678, L400.0001 ####[facility] [address] [place], [address] Nitrite Ql (U) Negative Normal Negative [facility] Comment on above: Order Comment: CLEAN CATCH Performed By: #### M 100.678, L400.0001 ####[facility] [address] [place], [address] OCCULT BLOOD-UR Negative Normal Negative [facility] Comment on above: Order Comment: CLEAN CATCH Performed By: #### M 100.678, L400.0001 ####[facility] [address] [place], [address] pH UR 7.0 Normal 5.0 - 8.0 [facility] Comment on above: Order Comment: CLEAN CATCH Performed By: #### M 100.678, L400.0001 ####[facility] [address] [place], [address] PROT DIPSTX 30 mg/dl Abnormal Negative [facility] Comment on above: Order Comment: CLEAN CATCH Performed By: #### M 100.678, L400.0001 ####[facility] [address] [place], [address] SP.GR. DIPSTX 1.010 Normal 1.002-1.030 [facility] Comment on above: Order Comment: CLEAN CATCH Performed By: #### M 100.678, L400.0001 ####[facility] [address] [place], [address] UROBILI Normal Normal Normal [facility] Comment on above: Order Comment: CLEAN CATCH Performed By: #### M 100.678, L400.0001 ####[facility] [address] [place], [address] EPI,SQUAMOUS 0 SEEN Normal 0-5 [facility] Comment on above: Order Comment: CLEAN CATCH Performed By: #### M 100.678, L400.0001 ####[facility] [address] [place], [address] Mucus Ql (Urine sed) 0 SEEN Normal [facility] Comment on above: Order Comment: CLEAN CATCH Performed By: #### M 100.678, L400.0001 ####[facility] [address] [place], [address] RBC 0 SEEN Normal 0-5 [facility] Comment on above: Order Comment: CLEAN CATCH Performed By: #### M 100.678, L400.0001 ####[facility] [address] [place], [address] Urine blood detectionOrdered By: Velasquez Morales on 10-27-2024 Urine Occult Blood Negative Negative [facility] Urine clarityOrdered By: Gregor Morales on 10-27-2024 Clarity (U) Clear Clear [facility] Urine color determinationOrd ered By: Velasquez Morales on 10-27-2024 Color (U) Straw Yellow [facility] Urine cultureOrdered By: Gregor Morales on 10-27-2024 Bacteria identified Cx Nom (U) Mixed Gram Pos & Gram Neg Org Abnormal [facility] Urine leukocyte esterase det ection by dipstickOrdered By: Velasquez Morales on 10-27-2024 Leukocyte esterase Test strip Ql (U) 100 /ul High Negative [facility] Urine pHOrdered By: Velsaquez Saab on 10-27-2024 pH (U) 7.0 [pH] 5.0 - 8.0 [facility] Urine sediment bacteria coun t by microscopy (number/high power field)Ordered By: Velasquez Morales on 10-27-2024 Bacteria LM.HPF (Urine sed) [#/Area] 1 /[HPF] None Seen [facility] Urine specific gravity measu rementOrdered By: Velasquez Morales on 10-27-2024 Specific gravity (U) [Rel density] 1.010 1.002-1.030 [facility] Urobilinogen Ql (U)Ordered B y: Velasquez Morales on 10-27-2024 Urine Urobilinogen Normal mg/dl Normal [facility] White blood cell countOrdere d By: Velasquez Morales on 10-27-2024 Urine WBC 10-25 SEEN /hpf 0-5 [facility] Wound Cultureon 10-27-2024 List Antibiotics Las t [...] S Vancomycin Islt GAYLA <=0.5 S Normal [facility] Comment on above: Performed By: #### M 100.4001, M100.3000, M100.1999 ####[facility] [address] [place], [address] Gram Stainon 10-26-2024 List Antibiotics Las t 48 Hours? NONE List Antibiotics to be Started? NONE Gram Stain No organisms seen No cells seen Normal [facility] Comment on above: Performed By: #### M 100.4001, M100.3000, M100.2000 ####[facility] [address] [place], [address] Wound Ctr History AND Physic josé miguel 10-25-2024 Wound Ctr History & Physical [facility] [address] [place] [address] H P Exam - Wound Care 10/25/24 1711 MR#: [id number] Acct: [id number] Name: FLEX KLINE Rep #: [id number] : 1940 84 From: Rita Calixto NP FINAL ARMATURE TESTER-C PCP: Dr. Felix Montelongo MD Status:REG RCR [...] erythematous and dry but no open wounds. [facility] Medical History Diabetes GERD (gastroesophageal reflux disease) Cataract 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 heart disease of [place] coronary artery without angina pectoris Parkinson's disease [...] Constitutional: D (more content not included)... Normal [facility] Absolute lymphocyte counton 06-29-2023 Lymphocytes Auto (Unsp spec) [#/Vol] 0.81 10*3/uL 0.83-4.51 [facility] Basophil percentageon 2022 Basophils/100 WBC (Bld) 0.2 % 0-1 [facility] Bilirubin [Mass/Vol] 0.80 mg/dL 0.20-1.00 [facility] Comment on above: For patients on eltr ombopag therapy, use of Dimension [place] TBIL is not recommended. Chloride [Moles/Vol] 101 mmol/L 98-107 [facility] Cholesterol [Mass/Vol] 170 mg/dL <200 [facility] Comment on above: <200 mg/dL Desirable 200-240 mg/dL Borderline >240 mg/dL High Risk Eosinophils/100 WBC (Bld) 3.3 % 0-5 [facility] Glucose [Mass/Vol] 119 mg/dL 74-106 [facility] Comment on above: Fasting Glucose resu lt from 100 to 125 mg/dL suggests IMPAIRED HOMEOSTASIS per A.D.A. criteria. Neutrophils (Bld) [#/Vol] 3.9 10*3/uL 2.0-7.7 [facility] Neutrophils/100 WBC (Bld) 70.4 % 47-70 [facility] Potassium [Moles/Vol] 4.8 mmol/L 3.5-5.1 [facility] Protein [Mass/Vol] 7.2 g/dL 6.4-8.2 [facility] Sodium [Moles/Vol] 134 mmol/L 136-145 [facility] Triglyceride [Mass/Vol] 57 mg/dL <199 [facility] Comment on above: The drugs N-Acetylcy steine and Metamizole may falsely depress this assay.Serum Triglycerides Reference Interval Normal <150 mg/dL Borderline high 150 - 199 mg/dL High 200 - 499 mg/dL Very High > or = 500 mg/dL WBC (Bld) [#/Vol] 5.5 10*3/uL 4.4-11.0 [facility] Blood erythrocytes count (nu mber/volume)on 06-29-2023 RBC (Bld) [#/Vol] 4.22 10*6/uL 4.6-6.2 [facility] Blood hemoglobin measurement (mass/volume)on 06-29-2023 Hemoglobin (Bld) [Mass/Vol] 14.4 g/dL 13.0-16.5 [facility] Blood lymphocytes/100 leukoc yteson 06-29-2023 Lymphocytes/100 WBC (Bld) 14.8 % 19-41 [facility] Blood monocytes/100 leukocyt eson 06-29-2023 Monocytes/100 WBC (Bld) 11.1 % 0-10 [facility] Blood platelet mean volumeon 06-29-2023 Platelet mean volume (Bld) [Entitic vol] 9.7 fL 6.2-12.0 [facility] Determination of erythrocyte mean corpuscular volume (MCV)on 06-29-2023 MCV (RBC) [Entitic vol] 96.9 fL 80-94 [facility] Hematocrit Auto (Bld) [Volum e fraction]on 06-29-2023 Hematocrit (Bld) [Volume fraction] 40.9 % 40-54 [facility] Laboratory - Chemistry and C hemistry - challengeon 06-29-2023 ALP [Catalytic activity/Vol] 59 U/L 45-117 [facility] ALT [Catalytic activity/Vol] 24 U/L 16-61 [facility] CO2 [Moles/Vol] 27.0 mmol/L 21.0-32.0 [facility] Globulin (S) [Mass/Vol] 3.3 g/dL 2.2-4.2 [facility] Urea nitrogen/Creatinine [Mass ratio] 18.1 mg/mg 10-20 [facility] Laboratory - Hematology and Cell countson 06-29-2023 Erythrocyte distribution width (RBC) [Entitic vol] 42.5 fL 35.1-43.9 [facility] Erythrocyte distribution width (RBC) [Ratio] 11.9 % 11.6-14.6 [facility] Immature granulocytes/100 WBC (Bld) 0.200 % 0.0-0.9 [facility] Comment on above: IG% - Immature Granu locytes (promyelocytes, myelocytes and metamyelocytes) > 1% indicates that a LEFT SHIFT is Present. MCH (RBC) [Entitic mass] 34.1 pg 27.0-32.0 [facility] Nucleated RBC/100 WBC (Bld) [Ratio] 0 % 0-5 [facility] MCHC Auto (RBC) [Mass/Vol]on 06-29-2023 MCHC (RBC) [Mass/Vol] 35.2 g/dL 32-36 [facility] No Panel Informationon 06-29 Estimated GFR (MDRD) Amer 56 mL/min >60 [facility] Comment on above: GFR Calc Estimated GFR (MDRD) Non-Af Amer 46 mL/min >60 [facility] Comment on above: Non- GFR Calc Prostate Specific Antigen Screen 3.35 ng/mL 0.00-4.00 [facility] Comment on above: This test was perfor med using the TPSA assay method for theIP Ghoster chemistry system. Values obtained with differentassay methods cannot be used interchangably.When changing PSA assays in the course of monitoring apatient, additional sequential testing should be carriedout to confirm baseline values. Thyroid Stimulating Hormone (TSH) 4.85 uIU/mL 0.358-3.74 [facility] Urine Microalbumin/Creatinine Ratio 26.8 mg/g CRE <30 [facility] Platelets bldon 06-29-2023 Platelets (Bld) [#/Vol] 217 10*3/uL 150-450 [facility] Serum or plasma albumin jesenia urement (mass/volume)on 06-29-2023 Albumin [Mass/Vol] 3.9 g/dL 3.2-5.0 [facility] Serum or plasma albumin/glob ulin mass ratioon 06-29-2023 Albumin/Globulin [Mass ratio] 1.2 {ratio} 0.9-2.4 [facility] Serum or plasma calcium jesenia urement (mass/volume)on 06-29-2023 Calcium [Mass/Vol] 9.0 mg/dL 8.5-10.1 [facility] Serum or plasma cholesterol in HDL measurement (mass/volume)on 06-29-2023 Cholesterol in HDL [Mass/Vol] 56 mg/dL >40 [facility] Comment on above: The drugs N-Acetylcy steine and Metamizole may falsely depress this assay. Reference Range HDL <40 mg/dL Low HDL Cholesterol HDL >or= 60 mg/dL High HDL Cholesterol Serum or plasma cholesterol in VLDL measurement (mass/volume)on 06-29-2023 Cholesterol in VLDL [Mass/Vol] 11 mg/dL 5-40 [facility] Serum or plasma creatinine m easurement (mass/volume)on 06-29-2023 Creatinine [Mass/Vol] 1.55 mg/dL 0.70-1.30 [facility] Comment on above: The validity of the calculated GFR & GFRAA in patients over 70 years has not been determined. Clinical correlation is essential. Serum or plasma low density lipoprotein (LDL) cholesterol measurement (mass/volume)on 06-29-2023 Cholesterol in LDL [Mass/Vol] 103 mg/dL 0-130 [facility] Serum or plasma urea nitroge n measurement (mass/volume)on 06-29-2023 Urea nitrogen [Mass/Vol] 28 mg/dL 7-18 [facility] Thin prep Papanicolaou smear with manual screeningon 06-29-2023 Thin prep Papanicolaou smear with manual screening 21 U/L 15-37 [facility] Thin prep Papanicolaou smear with manual screening 6 5-15 [facility] Thin prep Papanicolaou smear with manual screening 32.2 mg/L NO RANGE EST. [facility] Urine creatinine measurement (mass/volume)on 06-29-2023 Creatinine (U) [Mass/Vol] 120.00 mg/dL NO RANGE EST. [facility] Whole blood hemoglobin A1c/t otal hemoglobin ratio (mass fraction)on 06-29-2023 HbA1c (Bld) [Mass fraction] 6.9 % 3.8-5.6 [facility] Comment on above: Normal < 5.7 % Predi abetic 5.7 - 6.4 % Diabetic >or= 6.5 % Please note range changes. Basophil percentageon 2021 Bilirubin [Mass/Vol] 0.70 mg/dL 0.20-1.00 [facility] Work Phone: Comment on above: For patients on eltr ombopag therapy, use of Dimension [place] TBIL is not recommended. Chloride [Moles/Vol] 100 mmol/L 98-107 [facility] Work Phone: Cholesterol [Mass/Vol] 180 mg/dL <200 [facility] Work Phone: Comment on above: <200 mg/dL Desirable 200-240 mg/dL Borderline >240 mg/dL High Risk Glucose [Mass/Vol] 138 mg/dL 74-106 [facility] Work Phone: Comment on above: Fasting Glucose resu lt greater than or equal to 126 mg/dL suggests DIABETES MELLITUS per A.D.A. criteria. Potassium [Moles/Vol] 4.4 mmol/L 3.5-5.1 [facility] Work Phone: Protein [Mass/Vol] 7.5 g/dL 6.4-8.2 [facility] Work Phone: Sodium [Moles/Vol] 135 mmol/L 136-145 [facility] Work Phone: Triglyceride [Mass/Vol] 54 mg/dL <199 [facility] Work Phone: Comment on above: The drugs N-Acetylcy steine and Metamizole may falsely depress this assay.Serum Triglycerides Reference Interval Normal <150 mg/dL Borderline high 150 - 199 mg/dL High 200 - 499 mg/dL Very High > or = 500 mg/dL Laboratory - Chemistry and C hemistry - challengeon 06-04-2022 ALP [Catalytic activity/Vol] 66 U/L 45-117 [facility] Work Phone: ALT [Catalytic activity/Vol] 35 U/L 16-61 [facility] Work Phone: CO2 [Moles/Vol] 29.0 mmol/L 21.0-32.0 [facility] Work Phone: Globulin (S) [Mass/Vol] 3.4 g/dL 2.2-4.2 [facility] Work Phone: Urea nitrogen/Creatinine [Mass ratio] 18.2 mg/mg 10-20 [facility] Work Phone: Laboratory - Hematology and Cell countson 06-04-2022 HbA1c (Bld) [Mass fraction] 6.9 % [facility] Work Phone: No Panel Informationon 06-04 Estimated GFR (MDRD) Amer 56 mL/min >60 [facility] Work Phone: Comment on above: GFR Calc Estimated GFR (MDRD) Non-Af Amer 46 mL/min >60 [facility] Work Phone: Comment on above: Non- GFR Calc Thyroid Stimulating Hormone (TSH) 4.27 uIU/mL 0.358-3.74 [facility] Work Phone: Urine Microalbumin/Creatinine Ratio 97.5 mg/g CRE <30 [facility] Work Phone: Serum or plasma albumin jesenia urement (mass/volume)on 06-04-2022 Albumin [Mass/Vol] 4.1 g/dL 3.2-5.0 [facility] Work Phone: Serum or plasma albumin/glob ulin mass ratioon 06-04-2022 Albumin/Globulin [Mass ratio] 1.2 {ratio} 0.9-2.4 [facility] Work Phone: Serum or plasma calcium jesenia urement (mass/volume)on 06-04-2022 Calcium [Mass/Vol] 9.0 mg/dL 8.5-10.1 [facility] Work Phone: Serum or plasma cholesterol in HDL measurement (mass/volume)on 06-04-2022 Cholesterol in HDL [Mass/Vol] 59 mg/dL >40 [facility] Work Phone: Comment on above: The drugs N-Acetylcy steine and Metamizole may falsely depress this assay. Reference Range HDL <40 mg/dL Low HDL Cholesterol HDL >or= 60 mg/dL High HDL Cholesterol Serum or plasma cholesterol in VLDL measurement (mass/volume)on 06-04-2022 Cholesterol in VLDL [Mass/Vol] 11 mg/dL 5-40 [facility] Work Phone: Serum or plasma creatinine m easurement (mass/volume)on 06-04-2022 Creatinine [Mass/Vol] 1.54 mg/dL 0.70-1.30 [facility] Work Phone: Comment on above: The validity of the calculated GFR & GFRAA in patients over 70 years has not been determined. Clinical correlation is essential. Serum or plasma low density lipoprotein (LDL) cholesterol measurement (mass/volume)on 06-04-2022 Cholesterol in LDL [Mass/Vol] 110 mg/dL 0-130 [facility] Work Phone: Serum or plasma urea nitroge n measurement (mass/volume)on 06-04-2022 Urea nitrogen [Mass/Vol] 28 mg/dL 7-18 [facility] Work Phone: Thin prep Papanicolaou smear with manual screeningon 06-04-2022 Thin prep Papanicolaou smear with manual screening 27 U/L 15-37 [facility] Work Phone: Thin prep Papanicolaou smear with manual screening 6 5-15 [facility] Work Phone: Thin prep Papanicolaou smear with manual screening 116.0 mg/L NO RANGE EST. [facility] Work Phone: Urine creatinine measurement (mass/volume)on 06-04-2022 Creatinine (U) [Mass/Vol] 119.00 mg/dL NO RANGE EST. [facility] Work Phone: Echocardiogramon 07-10-2021 Echocardiography [facility] , [address] [place] [address], [address], [place] [address] and TRANSTHORACIC ECHOCARDIOGRAM REPORT Patient Name: FLEX KLINE Reading Physician: [id number] Diamond Hammer MD Study Date: 07/10/2021 Referring Physician: DAVID BABCOCK MRN/PID: [id number] PCP: Accession/Order#: [id number] Department Location: [facility] Date of : 1940 Fellow: Gender: M Nurse: Admit Date: Private Investigator Surveillance: Tono Blake RD Admission Status: Outpatient Additional Staff: Height: 180.34 cm CC Report to: Weight: 81.65 kg Study Type: Echocardiogram BSA: 2.02 m2 Blood Pressure: 141 /77 mmHg Diagnosis/ICD: I25.10-Atherosclerotic heart disease of [place] coronary artery without angina pectoris Indication: Coronary artery disease Procedure/CPT: Echo Complete w Full [id number] Patient History: Pertinent History: CAD s/p CABG [...] Antonia: 1.52 PulmV Sys Antonia: 48.61 cm/s [id number] Diamond Hammer MD Electronically signed on 07/10/2021 at 8:33:27 PM Final Normal [facility] Blood Pressure Cuff Sizeon 0 06-24-2021 Fall risk assessment b) One or more fall s in the last year [facility] [facility] Work Phone: Tobacco use status CPHS b) No M [facility] [facility] Work Phone: Blood Pressure Cuff Size Adult [facility] [facility] Work Phone: Office Visit (Vascular [...] dominant, LM unclear, LCX moderate disease, LAD PRESS MAINTAINER, RCA PRESS MAINTAINER, VG-LAD patent, PEACE-OM patent, VG-PDA occluded. Was told by his primary electrician aircraft that he may need atherectomy to one [...] 40 mg QHS. Continue ranolazine and ISMR. [facility] Chief Complaint Chief Complaints Visit For: [...] dominant, LM unclear, LCX moderate disease, LAD PRESS MAINTAINER, RCA PRESS MAINTAINER, VG-LAD patent, PEACE-OM patent, VG-PDA occluded. Was told by his primary electrician aircraft that he may need atherectomy to one of his vessels (?Cx). Additionally, it appears afterwards he had a MPI that demonstrated no inducible ischemia, normal LV size and function (low risk study) performed on 04-23-2021 and in response to this, it was decided that no further intervention was necessary. Manager Field Investigations: Harjinder Jones MD ([facility]) *Active Problems Problems Diabetes mellitus (250.00) (E11.9) [...] 176.5 cm Harjinder Jones MD Work Phone: [facility] 2025 10:58-0400 Body mass index (BMI) [Ratio] 26.2 kg/m2 Harjinder Jones MD Work Phone: [facility] 2025 10:58-0400 Body weight 81.65 kg Harjinder Jones MD Work Phone: [facility] 2025 10:58-0400 Diastolic blood pressure 60 mm[Hg] Harjinder Jones MD Work Phone: [facility] 2025 10:58-0400 Heart rate 82 /min Harjinder Jones MD Work Phone: [facility] 2025 10:58-0400 Respiratory rate 16 /min Harjinder Jones MD Work Phone: [facility] 2025 10:58-0400 SaO2% (BldA) [Mass fraction] 98 % Harjinder oJnes MD Work Phone: [facility] 2025 10:58-0400 Systolic blood pressure 138 mm[Hg] Harjinder Jones MD Work Phone: [facility] 03-02-2025 10:37-0400 Body mass index (BMI) [Ratio] 26.2 kg/m2 Kwan Estrella MD Work Phone: [facility] 03-02-2025 10:37-0400 Body weight 81.65 kg Kwan Estrella MD Work Phone: [facility] 03-02-2025 10:37-0400 Diastolic blood pressure 63 mm[Hg] Kwan Estrella MD Work Phone: [facility] 03-02-2025 10:37-0400 Heart rate 69 /min Kwan Estrella MD Work Phone: [facility] 03-02-2025 10:37-0400 SaO2% (BldA) [Mass fraction] 99 % Kwan Estrella MD Work Phone: [facility] 03-02-2025 10:37-0400 Systolic blood pressure 113 mm[Hg] Kwan Estrella MD Work Phone: [facility] 02-27-2025 10:56-0400 Body height 180.[address] Felix Montelongo MD Work Phone: [facility] 02-27-2025 10:56-0400 Diastolic blood pressure 78 mm[Hg] Dr. Felix Montelongo MD Work Phone: [facility] 02-27-2025 10:56-0400 Heart rate 62 /min Dr. Felix Montelongo MD Work Phone: [facility] 02-27-2025 10:56-0400 SaO2% (BldA) [Mass fraction] 96 % Dr. Felix Montelongo MD Work Phone: [facility] 02-27-2025 10:56-0400 Systolic blood pressure 168 mm[Hg] Dr. Felix Montelongo MD Work Phone: [facility] 01-22-2025 13:41-0500 Body height 176.5 cm Harjinder Jones MD Work Phone: [facility] 01-22-2025 13:41-0500 Body mass index (BMI) [Ratio] 25.62 kg/m2 Harjinder Jones MD Work Phone: [facility] 01-22-2025 13:41-0500 Body weight 79.83 kg Harjinder Jones MD Work Phone: [facility] 01-22-2025 13:41-0500 Diastolic blood pressure 70 mm[Hg] Harjinder Jones MD Work Phone: [facility] 01-22-2025 13:41-0500 Heart rate 91 /min Harjinder Jones MD Work Phone: [facility] 01-22-2025 13:41-0500 Respiratory rate 14 /min Harjinder Jones MD Work Phone: [facility] 01-22-2025 13:41-0500 SaO2% (BldA) [Mass fraction] 97 % Harjinder Jones MD Work Phone: [facility] 01-22-2025 13:41-0500 Systolic blood pressure 156 mm[Hg] Harjinder Jones MD Work Phone: [facility] 11-30-2024 08:36-0500 Body height 180.[address] Felix Montelongo MD Work Phone: [facility] 11-30-2024 08:36-0500 Body mass index (BMI) [Ratio] 24.1 kg/m2 Dr. Felix Montelongo MD Work Phone: [facility] 11-30-2024 08:36-0500 Body weight 78.[address] Felix Montelongo MD Work Phone: [facility] 11-30-2024 08:36-0500 Diastolic blood pressure 72 mm[Hg] Dr. Felix Montelongo MD Work Phone: [facility] 11-30-2024 08:36-0500 Heart rate 93 /min Dr. Felix Montelongo MD Work Phone: [facility] 11-30-2024 08:36-0500 Respiratory rate 18 /min Dr. Felix Montelongo MD Work Phone: [facility] 11-30-2024 08:36-0500 Systolic blood pressure 138 mm[Hg] Dr. Felix Montelongo MD Work Phone: [facility] 11-01-2024 15:00-0500 Body temperature 97.6 [degF] Dr. Felix Montelongo MD Work Phone: [facility] 11-01-2024 15:00-0500 Diastolic blood pressure 54 mm[Hg] Dr. Felix Montelongo MD Work Phone: [facility] 11-01-2024 15:00-0500 Heart rate 76 /min Dr. Felix Montelongo MD Work Phone: [facility] 11-01-2024 15:00-0500 Respiratory rate 18 /min Dr. Felix Montelongo MD Work Phone: [facility] 11-01-2024 15:00-0500 SaO2% (BldA) [Mass fraction] 94 % Dr. Felix Montelongo MD Work Phone: [facility] 11-01-2024 15:00-0500 Systolic blood pressure 104 mm[Hg] Dr. Felix Montelongo MD Work Phone: [facility] 11-01-2024 06:00-0500 Body mass index (BMI) [Ratio] 24.3 kg/m2 Dr. Felix Montelongo MD Work Phone: [facility] 11-01-2024 06:00-0500 Body weight [address] Felix Montelongo MD Work Phone: [facility] 01-04-2024 15:09-0500 Body height 176.5 cm Rocío Denbow PA-C Work Phone: [facility] 01-04-2024 15:09-0500 Body weight 83.01 kg Rocío Denbow PA-C Work Phone: [facility] 01-04-2024 15:09-0500 Diastolic blood pressure 66 mm[Hg] Rocío Joeybow PA-C Work Phone: [facility] 01-04-2024 15:09-0500 Heart rate 73 /min Rocío Denbow PA-C Work Phone: [facility] 01-04-2024 15:09-0500 Respiratory rate 14 /min Rocío Wagner PA-C Work Phone: [facility] 01-04-2024 15:09-0500 SaO2% (BldA) [Mass fraction] 97 % Rocío Wagner PA-C Work Phone: [facility] 01-04-2024 15:09-0500 Systolic blood pressure 122 mm[Hg] Rocío Wagner PA-C Work Phone: [facility] 06-04-2022 08:28-0400 Body height 182.[address] Felix Montelongo Work Phone: [facility] Work Phone: 06-04-2022 08:28-0400 Body mass index (BMI) [Ratio] 26 kg/m2 Dr. Felix Montelongo Work Phone: [facility] Work Phone: 06-04-2022 08:28-0400 Body temperature 96.5 [degF] Dr. Felix Montelongo Work Phone: [facility] Work Phone: 06-04-2022 08:28-0400 Body weight 87.[address] Felix Montelongo Work Phone: [facility] Work Phone: 06-04-2022 08:28-0400 Diastolic blood pressure 76 mm[Hg] Dr. Felix Montelongo Work Phone: [facility] Work Phone: 06-04-2022 08:28-0400 Heart rate 58 /min Dr. Felix Montelongo Work Phone: [facility] Work Phone: 06-04-2022 08:28-0400 Respiratory rate 18 /min Dr. Felix Montelongo Work Phone: [facility] Work Phone: 06-04-2022 08:28-0400 SaO2% (BldA) [Mass fraction] 99 % Dr. Felix Montelongo Work Phone: [facility] Work Phone: 06-04-2022 08:28-0400 Systolic blood pressure 124 mm[Hg] Dr. Felix Montelongo Work Phone: [facility] Work Phone: 06-24-2021 13:44-0400 Body height 182.88 cm Referring Provider Unknown [facility] Work Phone: 06-24-2021 13:44-0400 Body mass index (BMI) [Ratio] 24.36 kg/m2 Referring Provider Unknown SV-Utbixpebns-Yqnt [facility] Work Phone: 06-24-2021 13:44-0400 Body surface area Derived from formula 2.04 m2 Referring Provider Unknown QM-Hwoyyreeqy-Rrcx [facility] Work Phone: 06-24-2021 13:44-0400 Body weight 81.47 kg Referring Provider Unknown KY-Toxhacdazy-Qrav [facility] Work Phone: 06-24-2021 13:44-0400 Diastolic blood pressure 75 mm[Hg] Referring Provider Unknown JI-Tzavbwfguw-Ajxs [facility] Work Phone: 06-24-2021 13:44-0400 Heart rate 81 /min Referring Provider Unknown ER-Rkkalwhzho-Njbz [facility] Work Phone: 06-24-2021 13:44-0400 Systolic blood pressure 138 mm[Hg] Referring Provider Unknown PL-Uqcmywtimx-Gvsw [facility] Work Phone: 06-24-2021 13:44-0400 0 1 Referring Provider Unknown WG-Qyxpjackfc-Ihrw [facility] Work Phone: Comment on above: [facility] 05-15-2021 11:29-0400 Body height 182.88 cm Referring Provider Unknown FS-Ygtohofxje-Dacy na [address] [place] Work Phone: 05-15-2021 11:29-0400 Body mass index (BMI) [Ratio] 24.28 kg/m2 Referring Provider Unknown HK-Dextcmzknj-Gshp na [address] [place] Work Phone: 05-15-2021 11:29-0400 Body surface area Derived from formula 2.03 m2 Referring Provider Unknown ML-Plhhqqwtdt-Zgzn na [address] [place] Work Phone: 05-15-2021 11:29-0400 Body weight 81.19 kg Referring Provider Unknown NW-Mbfgtzwulw-Rvsx na [address] [place] Work Phone: 05-15-2021 11:29-0400 Diastolic blood pressure 86 mm[Hg] Referring Provider Unknown GQ-Sysoclmkfw-Aswc na [address] [place] Work Phone: 05-15-2021 11:29-0400 Heart rate 82 /min Referring Provider Unknown CC-Cndcetouan-Blih na [address] [place] Work Phone: 05-15-2021 11:29-0400 SaO2% (BldA) [Mass fraction] 94 % Referring Provider Unknown CS-Yhmpgdaxhs-Ctss na [address] [place] Work Phone: 05-15-2021 11:29-0400 Systolic blood pressure 180 mm[Hg] Referring Provider Unknown FF-Epdfrchomy-Lmpo na [address] [place] Work Phone: 05-15-2021 11:29-0400 0 1 Referring Provider Unknown AE-Lcywhozpef-Ugpu na [address] [place] Work Phone: Comment on above: [facility] Encounters Encounter Date Encounter Type Care Provider Facility Start: 04-26-2025 ambulatory Buzz ZHANG Fa cility:[facility] Start: 03-29-2025 ambulatory Buzz Vanessa cility:[facility] Start: 03-29-2025 Registered Referred Buzz Rainey MD -[facility] [place] Start: 2025 End: 2025 ambulatory HARJINDER JONES Facility:[facility] Start: 2025 End: 2025 Patient encounter procedure Harjinder Jones MD Work Phone: Cardiology Comment on above: Primary hypertension (Primary Dx); Coronary artery disease involving [place] coronary artery of [place] heart without angina pectoris Start: 03-02-2025 End: 03-02-2025 Patient encounter procedure Kwan Estrella MD Work Phone: [facility] [place] Comment on above: Coronary artery dise ase involving [place] coronary artery of [place] heart, unspecified whether angina present (Primary Dx); PAC (premature atrial contraction); PVC (premature ventricular contraction); Atrial tachycardia (HCC) Start: 03-02-2025 End: 03-02-2025 ambulatory HARJINDER JONES Facility:[facility] Start: 03-01-2025 End: 03-01-2025 Departed Referred Buzz Rainey MD -[facility] Start: 02-28-2025 End: 03-01-[address] Felix Montelongo MD Work Phone: [facility] Work Phone: Start: 02-28-2025 End: 02-28-2025 Departed Referred Buzz Rainey MD [facility] Start: 02-27-2025 End: 02-27-[address] Ozzy Bro MD -[facility] Work Phone: Start: 02-27-2025 End: 02-28-2025 ambulatory Buzz ZHANG Facility:[facility] Start: 02-26-2025 End: 02-26-[address] Felix Montelongo MD Work Phone: [facility] Work Phone: Start: 02-26-2025 End: 02-26-2025 Patient encounter procedure Abeba CERVANTES -[facility] Work Phone: Start: 01-31-2025 End: 01-31-[address] Felix Montelongo MD Work Phone: [facility] Work Phone: Start: 01-31-2025 End: 01-31-2025 Departed Referred Buzz LeeShlomo [facility] Start: 01-31-2025 End: 01-31-2025 ambulatory Buzz ZHANG Facility:[facility] Start: 01-22-2025 End: 01-22-2025 ambulatory HARJINDER JONES Facility:[facility] Start: 01-22-2025 End: 01-22-2025 ambulatory HARJINDER JONES Facility:[facility] Start: 01-22-2025 End: 01-22-2025 Patient encounter procedure Harjinder Jones MD Work Phone: Cardiology Comment on above: Palpitations (Primar y Dx); Diastolic congestive heart failure, unspecified HF chronicity (HCC); Atherosclerosis of [place] coronary artery of [place] heart without angina pectoris Start: 01-04-2025 End: 01-04-2025 Patient encounter procedure Abeba CERVANTES -[facility] Work Phone: Start: 01-04-2025 End: 01-04-2025 ambulatory Abeba Peacokc NP Facility:[facility] Start: 01-04-2025 Registered Referred Buzz [...] Phone: Start: 12-07-2024 ambulatory Buzz ZHANG Fa cility:[facility] Start: 12-07-2024 Registered Referred Buzz DE LA O - [facility] Start: 12-04-2024 End: 12-04-2024 ambulatory Abeba Peacock FINAL ARMATURE TESTER Facility:[facility] Start: 12-04-2024 End: 12-04-2024 Patient encounter procedure Abeba Madonna FINAL ARMATURE TESTER-C -[facility] Work Phone: Start: 12-02-2024 [facility] Start: 11-30-2024 End: 11-30-[address] Margie Gary MD -[facility] Work Phone: Start: 11-30-2024 End: 11-30-2024 ambulatory Margie Gary Facility:[facility] Start: 11-30-2024 [facility] Start: 11-30-2024 Registered Referred Buzz Huddleston Start: 11-23-2024 [facility]ulatory [facility] Start: 11-23-2024 Registered Referred Buzz Huddleston Start: 11-16-2024 [facility]ulatory [facility] Start: 11-16-2024 Registered Referred Buzz Huddleston Start: 11-09-2024 [facility]ulatory [facility] Start: 11-09-2024 Registered Referred Buzz Huddleston Start: 11-07-2024 End: 11-07-2024 ambulatory Buzz Rainey Facility:[facility] Start: 11-07-2024 End: 11-07-[address] Buzz Rainey MD -[facility] Work Phone: Start: 11-03-2024 ambulatory Buzz Vanessa cility:[facility] Start: 11-03-2024 Registered Referred Buzz Rainey MD -[facility] [place] Start: 11-02-2024 End: 11-02-2024 ambulatory Abebasawyer Wadesandra FINAL ARMATURE TESTER Facility:[facility] Start: 11-02-2024 End: 11-02-2024 Patient encounter procedure Abeba Madonna FINAL ARMATURE TESTER- -[facility] Work Phone: Start: 11-01-2024 Non-patient / Non-visit Dr. Sung Richardson [facility] Work Phone: Start: 10-31-2024 ambulatory Ozzy Dieudonne Facility:[facility] Start: 10-31-2024 Non-patient / Non-visit Dr. Sung westbrook [facility] Work Phone: Start: 10-30-2024 Non-patient / Non-visit Dr. Sung Richardson [facility] Work Phone: Start: 10-29-2024 Non-[facility] Work Phone: Start: 10-28-2024 Non-patient / Non-visit Dr. Marilu Laurent [facility] Work Phone: Start: 10-28-2024 ambulatory Angela Ramirez Facility:[facility] Start: 10-28-2024 Non-patient / Non-visit Dr. Angela gilmore MD -[facility] Start: 10-27-2024 ambulatory Sung Rhodes Facility:[facility] Start: 10-27-2024 End: 11-01-2024 Evaluation and management of inpatient Dr. Sung Rhodes DO -[facility] Work Phone: Start: 10-26-2024 [...] about it? Start: 10-25-2024 ambulatory Rita Calixto FINAL ARMATURE TESTER Fa cility:[facility] Start: 10-25-2024 End: 11-21-2024 ambulatory Rita Calixto FINAL ARMATURE TESTER Facility:[facility] Start: 09-11-2024 End: 09-11-2024 Refill Harjinder Jones MD Work Phone: [address] [place] [address] Comment on above: Refill Request Start: 02-01-2024 End: 02-01-2024 ambulatory Rocío Wagner PA-C Work Phone: [facility] [place] Comment on above: Controlled type 2 di abetes mellitus without complication, without long-term current use of insulin (HCC) (Primary Dx); Acquired hypothyroidism; Stage 3a chronic kidney disease (HCC); Parkinson's disease, unspecified whether dyskinesia present, unspecified whether manifestations fluctuate (HCC) Start: 02-01-2024 End: 02-01-2024 Telemedicine consultation with patient Rocío Wagner PA-C Work Phone: [facility] Start: 01-05-2024 ambulatory Rocío Wagner PA-C Work Phone: [facility] [place] Comment on above: Roller thing. Would like a prescription to Sammie Pleitez. Start: 01-05-2024 Telephone encounter Felix Montelongo MD Work Phone: [facility] [place] Comment on above: patient update on fa ll Start: 01-04-2024 End: 01-04-2024 Patient encounter procedure Rocío Wagner PA-C Work Phone: [facility] [place] Comment on above: Controlled type 2 di [...] with patient Marni Hudson MD Work Phone: [facility] Start: 06-29-2023 End: 06-29-2023 ambulatory [facility] Work Phone: Start: 06-29-2023 End: 06-29-2023 Patient encounter procedure [facility] Work Phone: Start: 02-19-2023 Telephone encounter Marni [...] encounter procedure Dr. Felix Montelongo Work Phone: [facility] Start: 06-04-2022 End: 06-04-[address] Felix Montelongo Work Phone: [facility] Start: 05-26-2022 Telephone encounter Marni whiting MD [...] cap copd pv dm Referring Provider Unknown LP-Adcgscumyc-Uzzbpgigc HVI 2500 Work Phone: Start: 05-15-2021 Patient encounter procedure Referring Provider Unknown KW-Adoqwaxqiu-Uumvlv 140 [place] Work Phone: Start: 10-25-2018 Ambulatory [facility] Facility :[facility] Start: 02-23-2018 End: 02-23-2018 Ambulatory [facility] Facility:[facility] Start: 01-31-2018 Ambulatory NICOLA PAYNE Facil ity:[facility] Procedures Date Procedure Procedure Detail Performing [...] to lateral CX per Dr. Garfield Dempsey, [facility] Cardiac catheterization Refe rring Provider Unknown Coronary artery bypass graft Referring Provider Unknown Plan of Treatment Date Care Activity Detail Author Start: 03-06-2026 End: 03-06-2026 Patient encounter procedure 03/06/2026 11:00 AM EDT Office Visit [facility] [address] [place] [address] Kwan Estrella MD [address] [id number] 1 yr f/u. eg [facility] Comment on above: 1 yr f/u. eg Start: 10-01-2025 End: 10-01-2025 Patient encounter procedure 10/01/2025 10:40 AM EST Office Visit Cardiology [address] [place] [address] Harjinder Jones MD [address], [address] [place], [place] [id number] 6 month follow up Cardiology Comment on above: 6 month follow up Start: 03-08-2025 Covid-19 Vaccine () Covid-19 Vaccine () [facility] Start: 2025 End: 2025 Patient encounter procedure 2025 11:00 AM EDT Office Visit Cardiology [address] [place] [id number] Harjinder Jones MD [address], [address] [place], [place] [id number] 6 weeek follow up Cardiology Comment on above: 6 weeek follow up Start: 01-22-2025 End: 04-23-2025 Natriuretic peptide.B prohormone N-Terminal [Mass/volume] in Serum or Plasma [facility] Comment on above: Expected: 01/22/2025 , Expires: 04/23/2025 Start: 01-22-2025 End: 04-23-2025 Thyrotropin [Units/volume] in Serum or Plasma [facility] Comment on above: Expected: 01/22/2025 , Expires: 04/23/2025 Start: 01-22-2025 End: 01-22-2025 Patient encounter procedure 01/22/2025 1:40 PM EST Office Visit Cardiology [address] [place] [address] Harjinder Jones MD [address], [address] [place], [place] [id number] 6 month follow up from appt 11/29/23 Cardiology Comment on above: 6 month follow up fr om appt 11/29/23 Start: 11-22-2024 Advance Directive Discussion Advance Directive Discussion [facility] Start: 11-01-2024 Patient discharge [facility] Start: 10-29-2024 Following clinical pathway protocol [facility] Start: 10-28-2024 Following clinical pathway protocol [facility] Start: 10-28-2024 [facility] Start: 10-27-2024 Following clinical pathway protocol [facility] Start: 10-27-2024 Assessment of risk o f venous thromboembolism [facility] Start: 10-27-2024 Care regimes management [facility] Start: 10-27-2024 Insertion of cathete r into peripheral vein [facility] Start: 10-27-2024 Measuring intake and output [facility] Start: 10-27-2024 Notification of physician [facility] Start: 10-27-2024 Providing care accor ding to standard [facility] Start: 10-27-2024 Provision of activit y privileges [facility] Start: 10-27-2024 Referral to occupati onal therapist [facility] Start: 10-27-2024 Referral to service [facility] Start: 10-27-2024 End: 10-27-2024 [facility] Start: 10-27-2024 Admission procedure [facility] Start: 07-23-2024 Covid-19 Vaccine ( season) Covid-19 Vaccine ( season) [facility] Start: 07-23-2024 Influenza vaccination Influenza Vacc ine (#1) [facility] Start: 03-13-2024 End: 06-12-2024 Thyrotropin [Units/volume] in Serum or Plasma TSH BLD Lab Routine Acquired hypothyroidism Expected: 03/13/2024, Expires: 06/12/2024 [facility] Work Phone: Comment on above: Expected: 03/13/2024 , Expires: 06/12/2024 Start: 02-01-2024 End: 05-02-2024 CBC W Auto Differential panel - Blood CBC + DIFF Lab Routine Stage 3a chronic kidney disease (HCC) Controlled type 2 diabetes mellitus without complication, without long-term current use of insulin (HCC) Parkinson's disease, unspecified whether dyskinesia present, unspecified whether manifestations fluctuate (HCC) Expected: 02/01/2024, Expires: 05/02/2024 [facility] Work Phone: Comment on above: Expected: 02/01/2024 , Expires: 05/02/2024 Start: 02-01-2024 End: 05-02-2024 Hemoglobin A1c in Blood HGB A1C Lab Routine Controlled type 2 diabetes mellitus without complication, without long-term current use of insulin (HCC) Expected: 02/01/2024, Expires: 05/02/2024 [facility] Work Phone: Comment on above: Expected: 02/01/2024 , Expires: 05/02/2024 Start: 01-04-2024 End: 04-04-2024 Basic metabolic 2000 panel - Serum or Plasma [facility] Work Phone: Comment on above: Expected: 01/04/2024 , Expires: 04/04/2024 Start: 01-04-2024 End: 04-04-2024 Thyrotropin [Units/volume] in Serum or Plasma [facility] Work Phone: Comment on above: Expected: 01/04/2024 , Expires: 04/04/2024 Start: 11-22-2023 Advance Directive Discussion Advance Directive Discussion [facility] Start: 11-22-2023 Depression Assessment Depression Ass essment [facility] Start: 07-23-2023 Influenza vaccination INFLUENZA (#1) [facility] Start: 06-29-2023 Adult depression screening assessment DEPRESSION SCREENING [facility] Start: 01-19-2023 COVID-19 VACCINE (6 - Pfizer series) COVID-19 VACCINE (6 - Pfizer series) [facility] Start: 11-22-2022 ADVANCE DIRECTIVE DISCUSSION ADVANCE DIRECTIVE DISCUSSION [facility] Start: 11-22-2022 DEPRESSION ASSESSMENT DEPRESSION ASS ESSMENT [facility] Start: 09-24-2022 Adult depression screening assessment DEPRESSION SCREENING [facility] Start: 07-23-2022 Influenza vaccination INFLUENZA (#1) [facility] Start: 06-04-2022 Testosterone [facility] Work Phone: Start: 05-01-2022 COVID-19 VACCINE (5 - Booster for Pfizer series) COVID-19 VACCINE (5 - Booster for Pfizer series) [facility] Start: 12-15-2021 COVID-19 VACCINE (4 - Booster for Pfizer series) COVID-19 VACCINE (4 - Booster for Pfizer series) [facility] Start: 11-22-2021 ADVANCE DIRECTIVE DISCUSSION ADVANCE DIRECTIVE DISCUSSION [facility] Start: 11-22-2021 DEPRESSION ASSESSMENT DEPRESSION ASS ESSMENT [facility] Start: 07-10-2021 ECHO, Provider: AISHA RHODES,MG CARD, Status: Pen, Time: 10:00 AM CW-Bgwjzybvex-Jsbgb view [facility]VI 2500 Work Phone: Start: 02-23-2019 Hepatitis B surface antibody level LDL CHOLESTEROL [facility] Start: 10-28-2016 Pneumococcal Vaccine : 50+ (2 of 2 - PPSV23) Pneumococcal Vaccine: 50+ (2 of 2 - PPSV23) [facility] Start: 10-28-2016 Pneumococcal Vaccine : 65+ (2 of 2 - PPSV23 or PCV20) Pneumococcal Vaccine: 65+ (2 of 2 - PPSV23 or PCV20) [facility] Start: 09-13-2012 Urine microalbumin profile DTaP,Tdap,Td Vaccine (1 - Tdap) [facility] Start: 07-11-2010 Urine microalbumin profile DTAP,TDAP,TD (1 - Tdap) [facility] Start: 2007 PNEUMOVAX AGE 65 AND OVER WITH 5YR LOOKBACK (#1) PNEUMOVAX AGE 65 AND OVER WITH 5YR LOOKBACK (#1) [facility] Start: 1992 SHINGRIX VACCINE (1 of 2) HINTON GRIX VACCINE (1 of 2) [facility] Start: 1960 ANNUAL PCP TEAM HAM CLERK BRYCE DISEASE VISIT ANNUAL PCP TEAM CHRONIC DISEASE VISIT [facility] Start: 1960 Anxiety Screening Anxiety Screening [facility] Start: 1960 Depression Screening Depression Scre ening [facility] Start: 1952 3 comp foot exam completed DIABETIC FOOT EXAM [facility] Start: 1952 Diabetic foot examination Diabetic F oot Exam [facility] Start: 1952 Glaucoma screening Dilated Retinal E xam [facility] Start: 1952 Hepatitis B screening URINE AL BUMIN:CREATININE RATIO [facility] Start: 1952 Hepatitis C antibody , confirmatory test DILATED RETINAL EXAM [facility] Start: 1948 PNEUMOCOCCAL: 65+ (1 - PCV) PNEUMOCOCCAL: 65+ (1 - PCV) [facility] Start: 1947 Hemoglobin A1c measurement HbA1C [facility] Start: 1947 Hemoglobin A1c/Hemoglobin.total in Blood HBA1C [facility] NM Heart Views W str ess and W radionuclide IV [facility] OUTSIDE VENDOR CARDI AC OUTPATIENT EXTENDED RHYTHM RECORDING (WITHOUT TELEMETRY) OUTSIDE VENDOR CARDIAC OUTPATIENT EXTENDED RHYTHM RECORDING (WITHOUT TELEMETRY) Holter Routine Palpitations Ordered: 01/22/2025 [facility] Work Phone: Comment on above: Ordered: 01/22/2025 Patient Education Urinary Tract Infections in Men [facility]Is [facility]: [facility] referral [facility] Work Phone: T4 free measurement [facility] Work Phone: Testosterone Free [Mass/volume] in Serum or Plasma [facility] Work Phone: Testosterone measurement [facility] Work Phone: [facility] Immunizations Immunization Date Immunization Notes Care Provider [facility] 09-13-2023 influenza virus vaccine, unspecified formulation Harjinder Jones MD Work Phone: [facility] 09-23-2020 influenza, injectabl e, quadrivalent, preservative free [facility] 09-23-2020 influenza, seasonal, injectable Dr. Felix Montelongo Work Phone: [facility] Work Phone: 09-05-2014 pneumococcal conjuga te vaccine, [address] Felix Montelongo Work Phone: [facility] 07-23-2014 influenza, injectabl e, quadrivalent, preservative free [facility] 07-23-2014 influenza, seasonal, injectable Dr. Felix Montelongo Work Phone: [facility] Work Phone: 07-10-2010 tetanus and diphther ia toxoids, adsorbed, preservative free, for adult use (2 Lf of tetanus toxoid and 2 Lf of diphtheria toxoid) Marni Hudson MD Work Phone: [facility] Work Phone: 08-22-2007 pneumococcal conjuga te vaccine, 7 valent Marni Hudson MD Work Phone: [facility] Payers Date Payer Category Payer Self-pay [id number] 2022 Medicare [employer] [place] [id number] 2022-Present [phone] [address] [place] [address] [facility] [id number] 2022 [place] ([place] Care[place] [id number] 2022 Medicare [id number] 2020 Medicare [employer]ETNA MEDICARE A ETNA MEDICARE PPO [id number] 2020-Present [phone] [address] [place] [address] O xxxxGRSY [id number] 2016 Medicare [id number] Private Health Insurance [facility] [id number] Private Health Insurance TXB VGRSY [id number] Private Health Insurance [id number] Unknown [employer] Unknown [id number] 2.16.840.1.494102.3.579 .2.462 Unknown [id number] 2.16.840.1.385661.3.579 .2.462 Unknown [id number] 2.16.840.1.425193.3.579 .2.462 Unknown [id number] 2.16.840.1.549298.3.579 .2.462 Unknown [id number] 2.16.840.1.887554.3.579 .2.462 Unknown [id number] 2.16.840.1.424178.3.579 .2.462 Unknown [id number] 2.16.840.1.331779.3.579 .2.462 Unknown [id number] 2.16.840.1.612002.3.579 .2.462 Unknown [id number] 2.16.840.1.698084.3.579 .2.462 Unknown [id number] 2.16.840.1.272262.3.579 .2.462 Unknown [id number] 2.16.840.1.861232.3.579 .2.462 Unknown [id number] 2.16.840.1.084358.3.579 .2.462 Unknown [id number] 2.16.840.1.052536.3.579 .2.462 Unknown [id number] 2.16.840.1.332195.3.579 .2.462 Unknown [id number] 2.16.840.1.523696.3.579 .2.462 Unknown [id number] 2.16.840.1.197367.3.579 .2.462 Unknown [id number] 2.16.840.1.557969.3.579 .2.462 Unknown [id number] 2.16.840.1.942935.3.579 .2.462 Unknown [id number] 2.16.840.1.242602.3.579 .2.462 Unknown [id number] 2.16.840.1.326661.3.579 .2.462 Unknown [id number] 2.16.840.1.424130.3.579 .2.462 Unknown [id number] 2.16.840.1.301575.3.579 .2.462 Unknown [id number] 2.16.840.1.464124.3.579 .2.462 Unknown [id number] 2.16.840.1.191349.3.579 .2.462 Unknown [id number] 2.16.840.1.086906.3.579 .2.462 Unknown [id number] 2.16.840.1.296279.3.579 .2.462 Unknown [id number] 2.16.840.1.501486.3.579 .2.462 Unknown [id number] 2.16.840.1.801165.3.579 .2.462 Unknown [id number] 2.16.840.1.107825.3.579 .2.462 Social History Date Type Detail Facility Start: 06-29-2022 End: 11-09-2024 Tobacco smoking status NHIS Never smoked tobacco [facility] Start: 10-20-2021 End: 2025 Alcohol intake Lifetime non-drinker (finding) [facility] Start: 09-25-2021 History SDOH Alcohol Frequency 1 [facility] Start: 1940 Sex Assigned At Not on file [facility] Start: 06-04-2022 End: 05-07-2023 Tobacco smoking status NHIS Unknown if ever smoked [facility] Start: 04-21-2021 None [facility] Start: 04-21-2021 Non-smoker [facility] Start: 1940 Sex Assigned At Male W [facility] Start: 06-29-2022 Tobacco use and exposure Smokeless tobacco non-user [facility] Start: 06-19-2022 End: 06-29-2022 Exposure to SARS-CoV-2 (event) Not sure [facility] Start: 06-29-2022 End: 07-07-2023 History of Social function [facility] Start: 06-29-2022 End: 07-07-2023 Tobacco use panel [facility] Adult Depression Screening Assessment 2 [facility] Start: 07-28-2018 Spouse/ Signif icant Other [facility] Start: 02-23-2025 Sex Male (finding) [facility] Medical Equipment Procedure Code Equipment Code Equipment [...] 04/23/2021 5:34 PM Randi Scott RN No [facility] 04-23-2021 Are you blind, or do you have serious difficulty seeing, even when wearing glasses No 04/23/2021 5:34 PM Randi Scott RN No [facility] 04-23-2021 Do you have serious difficulty walking or climbing stairs No 04/23/2021 5:34 PM Randi Scott, LINSEY No [facility] 04-23-2021 Do you have difficul ty dressing or bathing No 04/23/2021 5:34 PM Randi Scott RN No [facility] 04-23-2021 Because of a physica l, mental, or emotional condition, do you have difficulty doing errands alone such as visiting a physician's office or shopping No 04/23/2021 5:34 PM Randi Scott RN No [facility] Mental Status Date Assessment Result Facility 11-01-2024 Cognitive function Voice/Name [facility] Work Phone: 04-23-2021 Because of a physica l, mental, or emotional condition, do you have serious difficulty concentrating, remembering, or making decisions No 04/23/2021 5:34 PM Randi Scott RN No [facility] Clinical Notes 03-25-2022 to 2025 Harjinder Jones MD - 2025 12:12 PM EDTPatient Kwan Chand MD - 03/02/2025 10:20 AM EDT Note Date & Type Note Facility 2025 Note HNO ID: [id number] Author: HARJINDER JONES MD Service: ? Author Type: Physician Type: Progress Notes Filed: 2025 12:16 Note Text: Harjinder Jones MD Interventional Cardiology [address] [place] [phone] Chief Complaint Patient presents with: Follow Up: 6 week follow up, c/o chest pain HISTORY OF PRESENT ILLNESS: Mr. Kline is a 85 year old male seen in my office today for follow-up patient had a prior history of severe [place] coronary artery disease with prior history of [...] for this visit. (more content not included)... [facility] 2025 History of Present illness Narrative Images from the original note were not included. Harjinder Jones MD Interventional Cardiology [address] [place] [phone] Chief Complaint Patient presents with: Follow Up: 6 week follow up, c/o chest pain HISTORY OF PRESENT ILLNESS: Mr. Kline is a 85 year old male seen in my office today for follow-up patient had a prior history of severe [place] coronary artery disease with prior history of [...] Value 01/22/2025 12.8 07/14/2018 Test sent to [facility]. Hematocrit (%) Date Value 01/22/2025 37.7 07/14/2018 Test sent to [facility]. WBC (k/uL) Date Value 01/22/2025 5.09 07/14/2018 Test sent to [facility]. Platelet Count (k/uL) Date Value 01/22/2025 216 07/14/2018 Test sent to [facility]. BMP: Glucose (mg/dL) Date Value 01/22/2025 171 [...] Ref Range Status 02/23/2018 Test sent to [facility]. <200 mg/dL Final Comment: Account Credited HIDE HDL Cholesterol Date Value Ref Range Status 02/23/2018 Test sent to [facility]. >39 mg/dL Final Comment: Account Credited HIDE LDL Cholesterol Date Value Ref Range Status 02/23/2018 Test sent to [facility]. <100 mg/dL Final Comment: Account Credited HIDE Triglyceride Date Value Ref Range Status 02/23/2018 Test sent to [facility]. <150 mg/dL Final Comment: Account Credited HIDE [...] aerobic exercise 2. Coronary artery disease involving [place] coronary artery of [place] heart without angina pectoris - ICD9: 414.01, [...] correct any errors. documented in this encounter [facility] 03-02-2025 Instructions Kwan Estrella MD - 03/02/2025 [...] at that time. documented in this encounter [facility] 03-02-2025 History of Present illness Narrative Images from the original note were not included. [facility] [place] [facility] SECTION OF CARDIAC PACING and ELECTROPHYSIOLOGY OUTPATIENT VISIT DATE March 02, 2025 OUTPATIENT VISIT TYPE NEW PRIMARY CARE PHYSICIAN: Vincent Espinosa [address] [place] [address] REFERRING PHYSICIAN: Harjinder Jones [address], [address] [facility] [address] chief complaint on file. HISTORY OF PRESENT [...] currently a resident at [facility]. Had a recent UTI in 10/2024, still [...] fibrillation ECG 11/29/23 - SR 77 bpm UT 210 QRS 102 QT/c 364 411 PVC [...] rare (<1.0%). Isolated VEs were rare (<1.0%, [address]), VE Couplets were rare (<1.0%, 63), and [...] central nervous system(341.8) Peripheral vascular disease, unspecified ([facility]) Type II or unspecified type [...] hands EKG 03/02/25 .Sinus rhythm 68 bpm UT 264ms First degree AVB QRS 96ms QT/c [...] MD This note was partially generated using [employer] voice recognition system. documented in this encounter [facility] 03-02-2025 Note HNO ID: [id number] Author: KWAN ESTRELLA MD Service: ? Author Type: Physician Type: Progress Notes Filed: 03/02/2025 11:18 Note Text: [facility] [place] [facility] SECTION OF CARDIAC PACING and ELECTROPHYSIOLOGY OUTPATIENT VISIT DATE March 02, 2025 OUTPATIENT VISIT TYPE NEW PRIMARY CARE PHYSICIAN: Vincent Espinosa [address] [place] [address] REFERRING PHYSICIAN: Harjinder Jones [address], [address] [facility] [address] chief complaint on file. HISTORY OF PRESENT [...] currently a resident at [facility]. Had a recent UTI in 10/2024, still [...] fibrillation ECG 11/29/23 - SR 77 bpm UT 210 QRS 102 QT/c 364 411 PVC [...] rare (<1.0%). Isolated VEs were rare (<1.0%, 87[address]), VE Couplets were rare (<1.0%, 63), and [...] central nervous system(341.8) Peripheral vascular disease, unspecified ([facility]) Type II or unspecified type [...] No social hist (more content not included)... [facility] 02-27-2025 Evaluation note Diagnosis Onset Date Resolution Type 2 diabetes mellitus acute February 27, 2025 10:51am CAD (coronary artery disease) chronic February 27, 2025 10:51am CKD (chronic kidney disease) chronic February 27, 2025 10:51am [facility] [employer] Work Phone: 1(172) 879-638603-03-2025 NoteHNO ID: [id number] Author: BLANCA MARCELINO LPN Service: ? Author Type: LICENSED NURSE Type: Progress Notes Filed: 01/22/2025 15:05 Note Text: EVENT MONITOR DISPOSABLE PATCH INSTRUCTIONS Patient Name: Flex Atkinson [facility] Number: [id number] Skin prepped and cleansed with alcohol Patch secured to prepped area Monitor Activated Serial #: [id number] Patient Instructed: Prescribed order timeframe Bathing guidelines Usage of event button and diary documentation Return of monitor at the end of prescribed order Call with problems [phone] or [phone]. [phone] Patient expresses a good understanding of instructions [facility] History of Present illness Narrative* Blanca Marcelino LPN - 01/22/2025 3:04 PM EST EVENT MONITOR DISPOSABLE PATCH INSTRUCTIONS Patient Name: Flex Atkinson [facility] Number: [id number] Skin prepped and cleansed with alcohol Patch secured to prepped area Monitor Activated Serial #: [id number] Patient Instructed: Prescribed order timeframe Bathing guidelines Usage of event button and diary documentation Return of monitor at the end of prescribed order Call with problems [phone] or [phone] ext. [phone] Patient expresses a good understanding of instructions Blanca Marcelino LPN * Harjinder Jones MD - 01/22/2025 2:34 PM EST Images from the original note were not included. Harjinder Jones MD Interventional Cardiology [address] [phone] Chief Complaint Patient presents with: Follow Up: [...] central nervous system(341.8) Peripheral vascular disease, unspecified ([facility]) Type II or unspecified type [...] Value 04/22/2021 12.5 07/14/2018 Test sent to [facility]. Hematocrit (%) Date Value 04/22/2021 36.8 07/14/2018 Test sent to [facility]. WBC (k/uL) Date Value 04/22/2021 5.50 07/14/2018 Test sent to [facility]. Platelet Count (k/uL) Date Value 04/22/2021 197 07/14/2018 Test sent to [facility]. BMP: Glucose (mg/dL) Date Value 01/04/2024 130 [...] Ref Range Status 02/23/2018 Test sent to [facility]. <200 mg/dL Final Comment: Account Credited HIDE HDL Cholesterol Date Value Ref Range Status 02/23/2018 Test sent to [facility]. >39 mg/dL Final Comment: Account Credited HIDE LDL Cholesterol Date Value Ref Range Status 02/23/2018 Test sent to [facility]. <100 mg/dL Final Comment: Account Credited HIDE Triglyceride Date Value Ref Range Status 02/23/2018 Test sent to [facility]. <150 mg/dL Final Comment: Account Credited HIDE [...] to check his BMP 3. Atherosclerosis of [place] coronary artery of [place] heart without angina pectoris - ICD9: 414.01, ICD10: I25.10 Stable status prior history of bypass surgery Harjinder Jones MD Follow up plannin weeks Electronically signed by Harjinder Jones MD on January 22, 2025, 2:34 PM The above note was partially created using a dictation recognition software. A reasonable attempt has been made to correct any errors. documented in this encounterSumma Health03-03-2025 NoteHNO ID: [id number] Author: HARJINDER JONES MD Service: ? Author Type: Physician Type: Progress Notes Filed: 01/22/2025 14:39 Note Text: Harjinder Jones MD Interventional Cardiology [address] [place], [place] [address] [phone] Chief Complaint Patient presents with: Follow Up: [...] central nervous system(341.8) Peripheral vascular disease, unspecified ([facility]) Type II or unspecified type [...] loss, nosebleeds, sinus concepcion (more content not included)...[facility] 01-22-2025 NoteHNO ID: [id number] Author: AHRJINDER JNOES MD Service: ? Author Type: Physician Type: [...] rare (<1.0%). Isolated VEs were rare (<1.0%, 83969), VE Couplets were rare (<1.0%, 63), and VE Triplets were rare (<1.0%, 19). Ventricular Bigeminy and Trigeminy were present. Difficulty discerning atrial activity making definitive diagnosis difficult to ascertain.[facility]01-09-2025 Evaluation note* Diagnosis Onset Date Resolution [...] kidney disease) chronic February 27, 2025 10:51am [facility] Work Phone: 1(128) 360-544712-20-2024 Telephone encounter Note* Telephone Encounter - Florence Reed MA - 11/10/2024 11:09 AM EST Called pt to offer appt on cancellation list. Pt is currently in rehab facility and unable to come.Will call once he is out if needs to be seen sooner. Florence Reed MA [facility]12-20-2024 Miscellaneous Notes* Telephone Encounter - Florence Reed [...] Ana Laura Rosario RN documented in this encounterSumma Health12-13-2024 Telephone encounter Note * Telephone Encounter - Ana Laura Rosario RN - 11/03/2024 9:09 AM EST Called and left VM asking the patient to call back to schedule and office visit. If patient calls back please offer 11/13/24 at 1:20pm or 11/27/24 at 1:20pm and ask for an update on the patient's symptoms. Ana Laura Rosario RN [facility]12-11-2024 [facility] Medical Records Department [address] [place] [id number] Discharge Summary 11/01/24 1501 MR#: [id number] Acct: [id number] Name: FLEX KLINE Rep #: [id number] : 1940 84 From: Sung Rhodes DO PCP: Dr. Felix Montelongo MD Status:ADM IN Location: [place] [id number] Providers Date of Admission: 10/27/24 Primary Care [...] Synthroid VTE prophylaxis: LMWH Disposition: to [facility] pending insurance authorization. 10/31: Talked about aggressiveness [...] tablet,delayed release 81 mg PO DAILY@0800 [facility] 07/28/18 nitroglycerin 0.4 mg sublingual tablet [...] years or YOUNGER s (more content not included)...[facility]12-06-2024 Evaluation note* Diagnosis Onset Date Resolution Status [...] 2018 chr onic November 30, 2024 9:59am [facility] Work Phone: 1(486) 655-791712-05-2024 Telephone encounter Note* Telephone Encounter - Ana [...] it? Please Advise Ana Laura Rosario RN [facility]10-21-2024 Telephone encounter Note* Telephone Encounter - Ruth [...] Ann Hernandez September 11, 2024 8:46 AM [facility]10-21-2024 Miscellaneous Notes* Telephone Encounter - Ruth Ann [...] 11, 2024 8:46 AM documented in this encounterSumma Health03-12-2024 History of Present illness Narrative* Rocío Wagner PA-C - 02/01/2024 3:01 PM EDT This Team Access Model visit is a phone encounter. It required patient-provider interaction for themedical decision making as documented below. Patient agrees to the visit: Yes Patient Location: [place] I have communicated my name and active licensure. The patient's identity and physical location wereverified at the time of this visit. Either the patient or their legal pharmaceutical specialty representative has been informed of the risks [...] Parkinson's and associated tremors. Last A1c at [facility] was in 07/14 was 6.9. REVIEW [...] care. Rocío Wagner PA-C documented in this encounterSumma Health02-27-2024 Miscellaneous Notes* Telephone Encounter - Juliana Choi [...] pt. Florence Santos LPN documented in this encounterSumma Health02-14-2024 Miscellaneous Notes* Telephone Encounter - Rocío Wagner [...] prescription? Rocío Wagner PA-C documented in this encounterSumma Health02-13-2024 History of Present illness Narrative* Rocío Wagner [...] GFR 46 from most recent labs through [facility] in 07/14. Does not see a rigger third. REVIEW OF SYSTEMS See HPI All other [...] plan. Rocío Wagner PA-C documented in this encounterSumma Health08-16-2023 Instructions* Patient Instructions* Marni Hudson MD - [...] or you can send a message through [employer]. You can also now schedule and select appointments through [employer]. Marni Hudson MD Constipation and Other Gastrointestinal [...] future constipation. Treatments fall into two categories: rhrd-lxu-ctkxiyk and prescription therapies. Remember: consult with your [...] day and your own convenience and preference. [employer]zn[employer] Nydr-fzt-stvqany treatments for constipation can be purchased at [...] It also comes as a capsule (Senna [place] Smooth Move ). ving with PD Constipation [...] easier to pass. These can be used retirement but should not be used in combination [...] after other remedies have failed. Among the heth-pjv-pyjnlzd laxatives, they are most likely to cause [...] psyllium (Perdiem ). Common Side Effects of Wplf-lsh-Wujjnue Products for Constipation Emollient (Stool Softeners) Skin [...] any side effects listed. Prescription Products When ufse-lmp-zpnewnx remedies fail, your healthcare provider may recommend [...] Stimulant X Bisacodyl (Dulcolax ) Stimulant X Industry Oil Stimulant X Cellulose (Unifiber ) Bulk [...] ) Stimulant X Adapted from: [facility] Website, accessed March 17, 2016, www.[employer]/[place]/druginformation/ [id number] Special Precautions For your safety, consult your [...] For more information and resources see https://www.parkinson.org/. [facility] is a [facility] of Excellence for the [facility] s [facility]. documented in this encounterSumma Health08-16-2023 History of Present illness Narrative* Marni Hudson MD - 07/07/2023 7:02 AM EDT [facility] - FOLLOW UP EVALUATION - VIRTUAL VISIT Felix Montelongo MD [address] [facility] [address] Dear Felix Montelongo MD: I had the pleasure of seeing Mr. Kline for follow-up today. As you know he is a 83 year old right-handed male with a history of ET/PD since 2015(?) . 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 He is seen alone. We had a visit using: [employer] I have communicated my name and active licensure. The patient's identity and physical location wereverified at the time of this visit. Either the patient or their legal pharmaceutical specialty representative has been informed of the risks [...] to schedule and only given options of [place] or [place]. Open to [facility]. Constipation. Prunes used [...] 1 1 1 Level of service : 48044 (40-54 min). Time spent 41 min on the day of service, which included preparing to see the patient, aqcw-uz-btdk patient care, completing clinical documentation, and counseling and educating the patient/family/caregiver. Thank you for allowing me to be part of the clinical care of this patient! I look forward to continued participation in the patient s care with you. Please do not hesitate to call with any questions. Sincerely, Marni Hudson MD documented in this encounterSumma Health03-31-2023 Miscellaneous Notes* Telephone Encounter - Caitlin Peacock MA - 02/19/2023 7:56 AM EDT Message therapy order mailed to patient home per Dr. Hudson request documented in this encounterSumma Health03-31-2023 Instructions* Patient Instructions* Marni Hudson MD - [...] or you can send a message through [employer]. You can also now schedule and select appointments through [employer]. Marni Hudson MD documented in this encounterSumma Health03-31-2023 History of Present illness Narrative* Marni Hudson MD - 02/19/2023 7:02 AM EDT [facility] - FOLLOW UP EVALUATION - VIRTUAL VISIT Felix Montelongo MD, MD [address] [facility] [address] Dear Felix Montelongo MD, MD: I had the pleasure of seeing Mr. Kline for follow-up today. As you know he is a 82 year old right-handed male with a history of ET/PD since 2016(?) . 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 We had a visit using: [employer] I have communicated my name and active licensure. The patient's identity and physical location wereverified at the time of this visit. Either the patient or their legal pharmaceutical specialty representative has been informed of the risks [...] 1 1 1 Level of service : 46995 ( 30-39 min). Time spent 30 min on the day of service, which included preparing to see the patient, xadf-tv-ggif patient care, completing clinical documentation, counseling and educating the patient/family/caregiver, and ordering medications, tests, or procedures. Thank you for allowing me to be part of the clinical care of this patient! I look forward to continued participation in the patient s care with you. Please do not hesitate to call with any questions. Sincerely, Marni Hudson MD documented in this encounterSumma Health01-27-2023 Instructions* Patient Instructions* Marni Hudson MD - [...] or you can send a message through [employer]. You can also now schedule and select appointments through [employer]. Marni Hudson MD documented in this encounterSumma Health01-27-2023 History of Present illness Narrative* Marni Hudson MD - 12/18/2022 6:56 AM EST [facility] - FOLLOW UP EVALUATION - VIRTUAL VISIT Felix Montelongo MD, MD [address] [facility] [address] Dear Felix Montelongo MD, MD: I had the pleasure of seeing Mr. Kline for follow-up today. As you know he is a 82 year old right-handed male with a history of ET/PD since 2016(?) . 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 He is seen with a daughter. We had a visit using: [employer] I received consent from the patient to [...] 1 1 1 Level of service : 91124 (40-54 min). Time spent 51 min on the day of service, which included preparing to see the patient, vipi-jf-kfmg patient care, completing clinical documentation, and counseling and educating the patient/family/caregiver. Thank you for allowing me to be part of the clinical care of this patient! I look forward to continued participation in the patient s care with you. Please do not hesitate to call with any questions. Sincerely, Marni Hudson MD documented in this encounterSumma Health12-21-2022 Miscellaneous Notes* Telephone Encounter - Jazzy Bonds - 11/11/2022 9:17 AM EST Last FUV Jun 2022 with ANNA. Next FUV 12/17/22 with ANNA. documented in this encounterSumma Health07-05-2022 Miscellaneous Notes* Telephone Encounter - Marlena Moya - 05/26/2022 1:[address] Hudson had an opening on 06/03/22. Added patient to schedule; notified him of appt details via voicemail and [employer] message. Marlena Moya * Telephone Encounter - Marlena Moya - 05/18/2022 1:21 PM EDT Called patient to schedule-no answer. Left voicemail requesting a call back to schedule appt. Patient's insurance also needs updated prior to scheduling appt. Please assist patient in rescheduling when he calls back. Marelna Moya * Telephone Encounter - Marlena Moya [...] 9:06 AM Routing comment documented in this encounterSumma Health05-04-2022 Miscellaneous Notes* Telephone Encounter - Sharron Higginbotham MA - 03/25/2022 1:55 PM EDT Called patient to get the pre-rooming intake. I left voice mail for a returned call to the office to have this completed. If patient returns call please transfer call to myself or another clinical staff member. Thanks! Sharron Higginbotham MA documented [facility]Mar[facility]* Diagnosis Onset Date Resolution Status CKD (chronic kidney disease) chronic Edema chronic Fatigue chronic HTN (hypertension) chronic Hypothyroidism chronic Type II diabetes mellitus, uncontrolled chronic [facility] Work Phone: Evaluation note* Diagnosis Parkinson disease (HCC)- Primary Paralysis agitans Essential tremor Essential and other specified forms of tremor [facility] this encounter [facility]* Diagnosis Parkinson disease (HCC)- Primary Paralysis agitans Muscle stiffness Unspecified disorder of muscle, ligament, and fascia Muscle pain Mylagia and myositis, unspecified documented in this encounter [facility] note* Diagnosis Parkinson disease (HCC)- Primary Paralysis agitans Slow transit constipation documented in this encounter [facility] noteNo assessment information availableWAultman Orrville Hospital Work Phone: Evaluation note* Diagnosis Controlled type 2 diabetes mellitus without complication, without long-term current use of insulin ([facility])- Primary Acquired hypothyroidism Unspecified hypothyroidism Parkinson's disease, unspecified whether dyskinesia present, unspecified whether manifestations fluctuate 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 Essential tremor Essential and other specified forms of tremor 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 Stage 3a chronic kidney disease ([facility]) documented in this encounter [facility]* Diagnosis Controlled type 2 diabetes mellitus without complication, without long-term current use of insulin (HCC)- Primary Acquired hypothyroidism Unspecified hypothyroidism Stage 3a chronic kidney disease (HCC) Parkinson's disease, unspecified whether dyskinesia present, unspecified whether manifestations fluctuate (HCC) documented in [facility]* Diagnosis Palpitations- Primary Diastolic congestive heart failure, unspecified HF chronicity (HCC) Atherosclerosis of [place] coronary artery of [place] heart without angina pectoris documented [facility] encounter [facility]* Diagnosis Coronary artery disease involving [place] coronary artery of [place] heart, unspecified whether angina present- Primary PAC (premature atrial contraction) Supraventricular premature beats PVC (premature ventricular contraction) Other premature beats Atrial tachycardia (HCC) Other specified cardiac dysrhythmias documented in this encounter [facility]* Diagnosis Primary hypertension- Primary Unspecified essential hypertension Coronary artery disease involving [place] coronary artery of [place] heart without angina pectoris documented in this encounter Summa HealthReason for referral (narrative)No reason for referral information availableWAultman Orrville Hospital Work Phone: Summary Purpose Family History [...] FoundDocuments on File Type Date Recorded 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 RE-EST. DIABETES INT LABS Reason for Visit [...] WORK November 30, 2024 5: 15am S/P [facility] 11/01November 30, 2024 9: 59am ADMISSION [...] WORK November 30, 2024 5: 15am S/P [facility] 11/01November 30, 2024 9: 59am ADMISSION [...] HIGH MDM 60-74 MINUTES Marni Hudson MD [facility] [address] [address] Referral ID Status Reason Start Date Expiration Date Visits Requested Visits Authorized [id number] Pending Review PCP Requested Referral 02/15/2023 12/18/2023 1 1 Specialty Diagnoses / Procedures Referred By Contac t Referred To Contact Diagnoses Parkinson disease (HCC) Procedures PROVIDER ORDERED FOLLOW UP OFFICE/OUTPATIENT NEW HIGH MDM 60-74 MINUTES Marni Hudson MD [address] [place] [address] Referral ID Status Reason Start Date Expiration Date Visits Requested Visits Authorized [id number] Pending Review PCP Requested Referral 05/21/2023 02/19/2024 1 1 Specialty Diagnoses / Procedures Referred By Contac t Referred To Contact Diagnoses Parkinson disease (HCC) Muscle stiffness Muscle pain Procedures CONSULT TO MASSAGE THERAPY OFFICE/OUTPATIENT NEW HIGH MDM 60-74 MINUTES Marni Hudson MD [address] [place] [address] Referral ID Status Reason Start Date Expiration Date Visits Requested Visits Authorized [id number] Pending Review PCP Requested Referral 02/19/2023 02/19/2024 1 1 Referral ID Status Reason Start Date Expiration Date Visits Requested Visits Authorized [id number] Pending Review PCP Requested Referral 07/06/2024 1 1 Specialty Diagnoses / Procedures Referred By Contac t Referred To Contact Diagnoses Parkinson disease (HCC) Procedures CONSULT TO MASSAGE THERAPY OFFICE/OUTPATIENT NEW HIGH MDM 60-74 MINUTES Marni Hudson MD [address] [place] [address] Referral ID Status Reason Start Date Expiration Date Visits Requested Visits Authorized [id number] Pending Review PCP Requested Referral 07/07/2023 07/06/2024 1 1 Specialty Diagnoses / Procedures Referred By Contac t Referred To Contact [facility] Diagnoses Parkinson disease (HCC) Procedures CONSULT TO PHYSICAL THERAPY PHYSICAL THERAPY EVALUATION HIGH COMPLEX 45 MINS Marni Hudson MD [address] [address] [facility] [address] [address] Referral ID Status Reason Start Date Expiration Date Visits Requested Visits Authorized [id number] Pending Review Auto-Generat ed Referral 07/07/2023 07/06/2024 1 1 Additional Source Comments (unrecognized sect ion and content) No Status Records FoundNo Status Records FoundNo Status Records FoundNo Status Records FoundNo Status Records FoundNo Status Records Found INFORMATION SOURCE (unrecogn ized section and content) DATE CREATED AUTHOR 05/12/2018 [facility] DATE CREATED AUTHOR AUTHOR'S ORGANIZ ATION 07/11/2021 [facility] DATE CREATED AUTHOR AUTHOR'S ORGANIZ ATION 07/21/2021 [facility] DATE CREATED AUTHOR AUTHOR'S ORGANIZ ATION 03/04/2025 [facility] DATE CREATED AUTHOR AUTHOR'S ORGANIZ ATION 03/06/2025 [facility] DATE CREATED AUTHOR AUTHOR'S ORGANIZ ATION 04/26/2025 [facility] Source Comments (unrecognize d section and content) In the event this informatio n is protected by the Federal Confidentiality of Alcohol and Drug Abuse Patient Records regulations: The Federal rules restrict any use of the information to criminally investigate or prosecute any alcohol or drug abuse patient.[facility] HealthIn the event this information is protected by the Federal Confidentiality of Alcohol and Drug Abuse Patient Records regulations: The Federal rules restrict any use of the information to criminally investigate or prosecute any alcohol or drug abuse patient.Sum[facility] HealthIn the event this information is protected by the Federal Confidentiality of Alcohol and Drug Abuse Patient Records regulations: The Federal rules restrict any use of the information to criminally investigate or prosecute any alcohol or drug abuse patient.Sum[facility] HealthIn the event this information is protected by the Federal Confidentiality of Alcohol and Drug Abuse Patient Records regulations: The Federal rules restrict any use of the information to criminally investigate or prosecute any alcohol or drug abuse patient.Sum[facility] HealthIn the event this information is protected by the Federal Confidentiality of Alcohol and Drug Abuse Patient Records regulations: The Federal rules restrict any use of the information to criminally investigate or prosecute any alcohol or drug abuse patient.Summa HealthIn the event this information is protected by the Federal Confidentiality of Alcohol and Drug Abuse Patient Records regulations: The Federal rules restrict any use of the information to criminally investigate or prosecute any alcohol or drug abuse patient.Summa HealthIn the event this information is protected by the Federal Confidentiality of Alcohol and Drug Abuse Patient Records regulations: The Federal rules restrict any use of the information to criminally investigate or prosecute any alcohol or drug abuse patient.Sum[facility] HealthIn the event this information is protected by the Federal Confidentiality of Alcohol and Drug Abuse Patient Records regulations: The Federal rules restrict any use of the information to criminally investigate or prosecute any alcohol or drug abuse patient.[facility] HealthIn the event this information is protected by the Federal Confidentiality of Alcohol and Drug Abuse Patient Records regulations: The Federal rules restrict any use of the information to criminally investigate or prosecute any alcohol or drug abuse patient.[facility] HealthIn the event this information is protected by the Federal Confidentiality of Alcohol and Drug Abuse Patient Records regulations: The Federal rules restrict any use of the information to criminally investigate or prosecute any alcohol or drug abuse patient.Summa HealthIn the event this information is protected by the Federal Confidentiality of Alcohol and Drug Abuse Patient Records regulations: The Federal rules restrict any use of the information to criminally investigate or prosecute any alcohol or drug abuse patient.[facility] HealthIn the event this information is protected by the Federal Confidentiality of Alcohol and Drug Abuse Patient Records regulations: The Federal rules restrict any use of the information to criminally investigate or prosecute any alcohol or drug abuse patient.[facility] HealthIn the event this information is protected by the Federal Confidentiality of Alcohol and Drug Abuse Patient Records regulations: The Federal rules restrict any use of the information to criminally investigate or prosecute any alcohol or drug abuse patient.[facility] HealthIn the event this information is protected by the Federal Confidentiality of Alcohol and Drug Abuse Patient Records regulations: The Federal rules restrict any use of the information to criminally investigate or prosecute any alcohol or drug abuse patient.Summa HealthIn the event this information is protected by the Federal Confidentiality of Alcohol and Drug Abuse Patient Records regulations: The Federal rules restrict any use of the information to criminally investigate or prosecute any alcohol or drug abuse patient.Summa HealthIn the event this information is protected by the Federal Confidentiality of Alcohol and Drug Abuse Patient Records regulations: The Federal rules restrict any use of the information to criminally investigate or prosecute any alcohol or drug abuse patient.Summa HealthIn the event this information is protected by the Federal Confidentiality of Alcohol and Drug Abuse Patient Records regulations: The Federal rules restrict any use of the information to criminally investigate or prosecute any alcohol or drug abuse patient.[facility] HealthIn the event this information is protected by the Federal Confidentiality of Alcohol and Drug Abuse Patient Records regulations: The Federal rules restrict any use of the information to criminally investigate or prosecute any alcohol or drug abuse patient.[facility] Reason for Visit (unrecogniz ed section and content) Reason Comments upcoming appointment pre-rooming phone c all Reason Comments Opened In Error Reason Comments Opened In Error Reason Comments Telemedicine Specialty Diagnoses / Procedures Referred By Contac t Referred To Contact Diagnoses Parkinson disease (HCC) Gait instability Procedures PROVIDER ORDERED FOLLOW UP OFFICE/OUTPATIENT NEW HIGH [facility] 60-74 MINUTES Marni Hudson MD [address] [address] Referral ID Status Reason Start Date Expiration Date V isits Requested Visits Authorized [id number] Closed PCP Requested Referral 06/29/2022 09/27/2022 1 1 Reason Comments Orders Mailed orders Reason Comments Telemedicine Follow Up Specialty Diagnoses / Procedures Referred By Contac t Referred To Contact Diagnoses Parkinson disease (HCC) Essential tremor Procedures PROVIDER ORDERED FOLLOW UP OFFICE/OUTPATIENT NEW HIGH [facility] 60-74 MINUTES Marni Hudson MD [address] [address] Referral ID Status Reason Start Date Expiration Date Visits Requested Visits Authorized [id number] Pending Review PCP Requested Referral 02/15/2023 12/18/2023 [...] Care Teams (unrecognized sec tion and content) Cuff Maker Relationship Specialty Start Date End Date Felix Montelongo [address] [place] [address] PCP - General Unspecified 02/04/16 Anupama Feng DO Internal Medicine 12/29/12 Cali Still MD Primary Staff Physician Cardiology 02/07/19 Cuff Maker Relationship Specialty Start Date End Date Felix Montelongo MD [address] [facility] [address] PCP - General Unspecified 02/04/16 Anupama Feng, DO Internal Medicine 12/29/12 Cali Still MD Primary Staff Physician Cardiology 02/07/19 Cuff Maker Relationship Specialty Start Date End Date Felix Montelongo MD [address] [facility], [place] [address] PCP - General Unspecified 02/04/16 Anupama Feng, DO Internal Medicine 12/29/12 Cali Still MD Primary Staff Physician Cardiology 02/07/19 Cuff Maker Relationship Specialty Start Date End Date Felix Montelongo MD [address] [facility] [place] [address] PCP - General Unspecified 02/04/16 Anupama Feng, DO Internal Medicine 12/29/12 Cali Still MD [address] [place], [place] [id number] Primary Staff Physician Cardiology 02/07/19 Cuff Maker Relationship Specialty Start Date End Date Felix Montelongo MD [address] [place], [place] [address] PCP - General Unspecified 02/04/16 Anupama Feng, DO Internal Medicine 12/29/12 Cali Still MD [address] [place] [address] Primary Staff Physician Cardiology 02/07/19 Cuff Maker Relationship Specialty Start Date End Date Felix Montelongo MD [address] [place] [address] PCP - General Unspecified 02/04/16 Anupama Feng DO Internal Medicine 12/29/12 Cali Still MD [address] [place] [address] Primary Staff Physician Cardiology 02/07/19 Cuff Maker Relationship Specialty Start Date End Date Felix Montelongo MD [address] [place] [address] PCP - General Unspecified 02/04/16 Anupama Feng DO Internal Medicine 12/29/12 Cali Still MD [address] [place] [address] 195194 Primary Staff Physician Cardiology 02/07/19 Cuff Maker Relationship Specialty Start Date End Date Felix Montelongo MD [address] [place] [address] PCP - General Unspecified 02/04/16 Anupama Feng DO Internal Medicine 12/29/12 Cali Still MD [address] [place] [address] Primary Staff Physician Cardiology 02/07/19 Team Status: Active Member Role Status Dates Dr. Barrett Avalos MD Family Provider Active Dr. Felix Montelongo MD Primary Care Provider Active Team Status: Inactive Member Role Status Dates Dr. Felix Montelongo MD Primary Care Provider Active RUDDY ANGLIN Attending Provider, Referring Provid er Active Cuff Maker Relationship Specialty Start Date End Date Felix Montelongo MD [address] [place] [address] PCP - General Unspecified 02/04/16 Anupama Feng DO Internal Medicine 12/29/12 Cali Still MD [address] [place] [address] Primary Staff Physician Cardiology 02/07/19 Marni Hudson MD [address] [address] Specialty Livestock Farm Workers Neurology 11/10/23 Cuff Maker Relationship Specialty Start Date End Date Felix Montelongo MD [address] [place] [address] PCP - General Unspecified 02/04/16 Anupama Feng DO Internal Medicine 12/29/12 Cali Still MD [address] [place] [address] Primary Staff Physician Cardiology 02/07/19 Marni Hudson MD [address] [address] Specialty Livestock Farm Workers Neurology 11/10/23 Cuff Maker Relationship Specialty Start Date End Date Felix Montelongo MD [address] [place] [address] PCP - General Unspecified 02/04/16 Anupama Feng DO Internal Medicine 12/29/12 Cali Still MD [address] [place] [address] Primary Staff Physician Cardiology 02/07/19 Marni Hudson MD [address] [address] Specialty Livestock Farm Workers Neurology 11/10/23 Cuff Maker Relationship Specialty Start Date End Date Rocío Wagner PA-C [address] [place] [address] PCP - General Family Medicine 02/01/24 Anupama Feng DO Internal Medicine 12/29/12 Cali Still MD Primary Staff Physician Cardiology 02/07/19 Marni Hudson MD [address] [address] Specialty Livestock Farm Workers Neurology 11/10/23 Cuff Maker Relationship Specialty Start Date End Date Vincent Espinosa MD [address] [place] [address] PCP - General Internal Medicine 02/29/24 Anpuama Feng DO Internal Medicine 12/29/12 Cali Still MD Primary Staff Physician Cardiology 02/07/19 Marni Hudson MD [address] [address] Specialty Livestock Farm Workers Neurology 11/10/23 Cuff Maker Relationship Specialty Start Date End Date Vincent Espinosa MD [address] [place] [address] PCP - General Internal Medicine 02/29/24 Anupama Feng DO Internal Medicine 12/29/12 Cali Still MD Primary Staff Physician Cardiology 02/07/19 Marni Hudson MD [address] [address] Specialty Livestock Farm Workers Neurology 11/10/23 Rocío Wagner PA-C [address] [place] [address] Floor Renovator Family [facility] 10/29/24 Sheela Cochran APRN.RN TELEPHONE TRIAGE [address] [place] [address] Floor Renovator Internal Medicine 10/29/24 Janine Daugherty PA-C [address] [place] [address] Floor Renovator Family [facility] 10/29/24 Cuff Maker Relationship Specialty Start Date End Date Vincent Espinosa MD [address] [place], [place] [id number] PCP - General Internal Medicine 02/29/24 Anupama Feng DO Internal Medicine 12/29/12 Cali Still MD Primary Staff Physician Cardiology 02/07/19 Marni Hudson MD [address] [address] Specialty Livestock Farm Workers Neurology 11/10/23 Rocío Wagner PA-C [address] [place] [address] [facility] Family [facility] 10/29/24 Sheela Cochran APRN.RN TELEPHONE TRIAGE [address] [place] [address] Floor Renovator Internal Medicine 10/29/24 Janine Daugherty PA-C [address] [place] [address] Floor Renovator Family Medicine 10/29/24 Team Status: Inactive Member [...] Active Star t: October 31, 2024 Dr. Snug Rhodes , DO Attending Provider Active Start: [...] Status: Inactive Member Role Status Dates Dr. Felxi Montelongo MD Primary Care Provider Active Start: November 02, 2024 End: November 02, 2024 Abeba Peacock NP, FINAL ARMATURE TESTER-C Attending Provider Active Start: November 02, 2024 [...] 2024 End: December 04, 2024 Abeba Peacock FINAL ARMATURE TESTER, FINAL ARMATURE TESTER-C Attending Provider Active Start: December 04, 2024 [...] End: December 21, 2024 Abeba Peacock NP, FINAL ARMATURE TESTER-C Attending Provider Active Start: December 21, 2024 [...] End: January 04, 2025 Abeba Peacock NP, FINAL ARMATURE TESTER-C Attending Provider Active Start: January 04, 2025 End: January 04, 2025 Team Status: Inactive Member Role Status Dates Dr. Felix Montelongo MD Primary Care Provider Active Start: January 31, 2025 End: January 31, 2025 Buzz ZHANG MD Attending Provider Active Start: January 31, 2025 End: January 31, 2025 Cuff Maker Relationship Specialty Start Date End Date Vincent Espinosa MD [address] [place] [address] PCP - General Internal Medicine 02/29/24 Anupama Feng DO Internal Medicine 12/29/12 Cali Still MD Primary Staff Physician Cardiology 02/07/19 Marni Hudson MD [address] [address] Specialty Livestock Farm Workers Neurology 11/10/23 Sheela Cochran APRN.RN TELEPHONE TRIAGE [address] [place], [place] [address] Floor Renovator Internal Medicine 10/29/24 Cuff Maker Relationship Specialty Start Date End Date Vincent Espinosa MD [address] [place], [place] [id number] PCP - General Internal Medicine 02/29/24 Anupama Feng DO Internal Medicine 12/29/12 Cali Still MD Primary Staff Physician Cardiology 02/07/19 Marni Hudson MD [address] [address] Specialty Livestock Farm Workers Neurology 11/10/23 Sheela Cochran APRN.RN TELEPHONE TRIAGE [address] [place], [place] [address] [facility] Internal Medicine 10/29/24 Team Status: Inactive [...] End: February 26, 2025 Abeba Peacock NP, FINAL ARMATURE TESTER-C Attending Provider Active Start: February 26, 2025 [...] BE BASED ON THE PRIMARY CLINICAL RECORDS. [employer] provides no warranty or guarantee of the accuracy or completeness of information in this document.
--- OUTSIDE RECORDS SUMMARY | 2025-05-03 04:22 | XMS RPT_ITS | CCD ---
Author Organization [facility]iniSyne Care Team Providers Care Medication Nurse Name Role Phone NICOLA PAYNE Unavailable Unavailable [...] Felix Montelongo MD Primary Care Provider [phone] Dr. Felix Montelongo Primary Care Provider Dr. Felix Montelongo Referring Provider [phone] HELEN Durand Attending Provider Anupama Feng DO [...] Unavailable Bernard HILLIARD, Rocío L Unavailable Older CEMENT LOADER.RISK PREVENTION ENGINEER, Sheela Unavailable Janine Daugherty PA-C Unavailable Jayda [...] Rainey MD Attending Provider Unavaila ble Tickton STEAM FITTER-C, Abeba Attending Provider Redd SHAW, Dr. Gerber Attending Provider King VALERIA, Dr. Preciado Attending Provider Jayda SHAW, Dr. [place] Primary Care Provider Buzz Rainey MD Attending Provider Unavaila ble Tickton STEAM FITTER-C, Abeba Attending Provider Jayda SHAW, Dr. [place] Referring Provider [phone] Cody Conleybe Attending Unavailabl e Jayda, Felix [...] e Jayda, Felix Primary Care Unavailable Tickton STEAM FITTER, Abeba Attending Unavailable Jayda, Felix Primary Care Unavailable Tickton STEAM FITTER, Abeba Attending Unavailable Jayda, Felix Primary Care Unavailable Tickton STEAM FITTER, Abeba Attending Unavailable Jayda, Felix Primary Care Unavailable Olemke Efewongbe Attending Unavailable Jyada, Felix Primary Care Unavailable Tickton STEAM FITTER, Abeba Attending Unavailable Jayda, Felix Primary Care Unavailable Margie Gary Attending Unavailable Jayda, Felix Primary Care Unavailable Jayda, Felix Referring Unavailable Jayda, Felix Primary Care Unavailable Cody Conleybe Attending Unavailabl lana Calixto STEAM FITTER, Rita Schwartz Attending Unavailabl e Jayda, Felix Referring Unavailable Jayda, Felix Primary Care Unavailable Jayda, Felix Primary Care Unavailable Cody Conleybe Attending UnavailSung Wilkins Attending Unavailable Sulma Romero Consulting Unavailable Sulma Romero Admitting Unavailable Jayda, Felix Primary Care Unavailable Roderick Laurent Consulting Unavailable Sung Rhodes Consulting Unavailable Angela Ramirez Attending Unavailable Jayda, Felix Primary Care Unavailable Ozzy Bro Attending Unavailable Jyada, Felix Primary Care Unavailable Jayda, Felix Referring Unavailable Oleghe Buzz ZHANG Attending Unavailabl e Jayda, Felix Primary Care Unavailable Cody Conleybe Attending Unavailabl e Jayda, Felix Primary Care Unavailable Durga STEAM FITTER, Rita Schwartz Consulting Unavailabl e Jayda, Felix Primary Care Unavailable Durga STEAM FITTER, Rita Schwartz Attending Unavailabl e Jayda, Felix [...] adverse reactions (disorder) 0 Shortness of Breath [facility] Repository (6 sources) Beta-Blockers (Beta-Adrenergi c Bloc; Translations: [Beta-Blockers (Beta-Adrenergi c Bloc] Allergy to substance 2 ANGIOEDEMA [facility] Medications Current Medications Medication Drug Class(es) [...] Comment on above: Take 2 tablets by [facility] three times daily. cholecalciferol 0.025 [...] Comment on above: Take 1 tablet by [facility] once daily. DULoxetine 20 mg delayed release oral capsule (3 sources) Serotonin and Norepinephrine Reuptake Inhibitor Start: 07-06-20 End: 07-06-20 23 take 1 capsule by mouth once daily DULoxetine (CYMBALTA) 20 mg capsule Take 1 capsule by mouth once daily. 30 capsule 11 07/06/2022 12/18/2022 Discontinued Comment on above: Take 1 capsule by [facility] once daily. finasteride 5 mg [...] Start: 05-15-2021 take 2 tablets by mo [facility] twice daily at mealtime Glimepiride 1 [...] Comment on above: Take 1 capsule by [facility] once daily. VIT B COMPLEX [...] Blood-Glucose Meter (Accu-Chek Bettina Plus Meter) [facility] Active 0 .ROUTE .MEDSUPPLY 200 May 03, [...] disease (20 sources) Atherosclerotic heart disease of [place] coronary artery without angina pectoris; Translations: [Coronary [...] X 8 Promus Synergy per DJN @ [facility]07/20/2018:JACQUELINE of mid [place] RPL branch, 3.0 X 16 Promus Synergy ; JACQUELINE of distal SVG to RCA, 2.5 X 20 Promus Synergy per DJN @ [facility] Nonspecific chest pain (12 sources) [...] Auto (Unsp spec) [#/Vol] 0.83 10*3/uL 0.83-4.51 [facility] Absolute neutrophil countOrd ered By: Buzz Rainey on 03-29-2025 Neutrophils (Bld) [#/Vol] 2.7 10*3/uL 2.0-7.7 [facility] Anion gap in Serum or Plasma Ordered By: Buzz Rainey on 03-29-2025 Anion gap [Moles/Vol] 11 mmol/L 5-15 [facility] Automated lymphocyte count a s percentage of total leukocytesOrdered By: Buzz Rainey on 03-29-2025 Lymphocytes/100 WBC Auto (Unsp spec) 19.5 % 19-41 [facility] BUN/creatinine ratioOrdered By: Buzz Rainey on 03-29-2025 Urea nitrogen/Creatinine [Mass ratio] 30.3 mg/mg High 10-20 [facility] Basophil percentageOrdered B y: Buzz Rainey on 03-29-2025 Basophils/100 WBC (Bld) 0.7 % 0-1 [facility] Carbon dioxide, total [Moles /volume] in Central venous bloodOrdered By: Buzz Rainey on 03-29-2025 CO2 [Moles/Vol] 22.7 mmol/L 21.0-32.0 [facility] Chloride assayOrdered By: Alexandra Rainey on 03-29-2025 Chloride [Moles/Vol] 103 mmol/L 98-108 [facility] Eosinophil percentageOrdered By: Buzz Rainey on 03-29-2025 Eosinophils/100 WBC (Bld) 4.0 % 0-5 [facility] Erythrocyte distribution wid th ratioOrdered By: yumikonew marketestrella Rainey on 03-29-2025 Erythrocyte distribution width (RBC) [Ratio] 12.0 % 11.6-14.6 [facility] Erythrocyte distribution wid th standard deviationOrdered By: Buzz Rainey on 03-29-2025 Erythrocyte distribution width (RBC) [Ratio] 43.5 fl 35.1-43.9 [facility] Glomerular filtration rate ( GFR) estimation/1.73 sq m using serum, plasma, or whole bOrdered By: Buzz Rainey on 03-29-2025 GFR/1.73 sq M.predicted among non-blacks MDRD (S/P/Bld) [Vol rate/Area] 57 mL/min/{1.73_m2} Low >60 [facility] Comment on above: mL/min/1.73m2 CKD-EP I Creatinine Equation (2020) Hematocrit Auto (Bld) [Volum e fraction]Ordered By: Buzz Rainey on 03-29-2025 Hematocrit (Bld) [Volume fraction] 35.5 % Low 40-54 [facility] Hemoglobin measurementOrdere d By: Buzz Rainey on 03-29-2025 Hemoglobin (Bld) [Mass/Vol] 12.1 g/dL Low 13.0-16.5 [facility] Immature granulocytes/100 WB C Auto (Bld)Ordered By: Buzz Rainey on 03-29-2025 Immature granulocytes/100 WBC (Bld) 0.000 % 0.0-0.9 [facility] Comment on above: IG% - Immature Granu locytes (promyelocytes, myelocytes and metamyelocytes) > 1% indicates that a LEFT SHIFT is Present. MCV (mean corpuscular volume ) determinationOrdered By: Buzz Rainey on 03-29-2025 MCV (RBC) [Entitic vol] 98.3 fL High 80-94 [facility] Mean corpuscular hemoglobin (MCH) determinationOrdered By: yumikonew marketestrella Rainey on 03-29-2025 MCH (RBC) [Entitic mass] 33.5 pg High 27.0-32.0 [facility] Mean corpuscular hemoglobin concentration (MCHC) determinationOrdered By: yumikonew marketestrella Rainey on 03-29-2025 MCHC (RBC) [Mass/Vol] 34.1 g/dL 32-36 [facility] Mean platelet volume determi nationOrdered By: Buzz Rainey on 03-29-2025 Platelet mean volume (Bld) [Entitic vol] 10.4 fL 6.2-12.0 [facility] Monocyte percentageOrdered B y: Buzz Rainey on 03-29-2025 Monocytes/100 WBC (Bld) 12.2 % High 0-10 [facility] Neutrophil percentageOrdered By: tamanna Rainey on 03-29-2025 Neutrophils/100 WBC (Bld) 63.6 % 47-70 [facility] Nucleated red blood cell per centageOrdered By: Buzz Rainey on 03-29-2025 Nucleated RBC/100 WBC (Bld) [Ratio] 0 % 0-5 [facility] Platelet countOrdered By: Alexandra Rainey on 03-29-2025 Platelets (Bld) [#/Vol] 182 10*3/uL 150-450 [facility] Potassium measurement (mass/ volume)Ordered By: Buzz Rainey on 03-29-2025 Potassium (Unsp spec) [Mass/Vol] 4.8 mmol/L 3.3-5.1 [facility] RBC Auto (Bld) [#/Vol]Ordere d By: Buzz Rainey on 03-29-2025 RBC (Bld) [#/Vol] 3.61 10*6/uL Low 4.6-6.2 [facility] Serum creatinine measurement (mass/volume)Ordered By: Buzz Rainey on 03-29-2025 Creatinine [Mass/Vol] 1.25 mg/dL High 0.70-1.20 [facility] Serum glucose measurement (m ass/volume)Ordered By: Buzz Rainey on 03-29-2025 Glucose [Mass/Vol] 269 mg/dL High 70-99 [facility] Serum or plasma calcium jesenia urement (mass/volume)Ordered By: Buzz Rainey on 03-29-2025 Calcium [Mass/Vol] 9.0 mg/dL 7.6-11.0 [facility] Serum or plasma urea nitroge n measurement (mass/volume)Ordered By: Buzz Rainey on 03-29-2025 Urea nitrogen [Mass/Vol] 38 mg/dL High 4-19 [facility] Sodium levelOrdered By: Otilia baileyjovan Redd on 03-29-2025 Sodium [Moles/Vol] 136 mmol/L 133-145 [facility] White blood cell (WBC) count Ordered By: Buzz Rainey on 03-29-2025 WBC (Bld) [#/Vol] 4.3 10*3/uL Low 4.4-11.0 [facility] CNOVon 2025 CNOV Office Visit (CARDWS ) FLEX KLINE ([id number]) 1940 M Date Time Provider Department 03/05/25 11:00 AM HARJINDER JONES During your visit today, we recorded the following information about you: Pulse Respiration Blood pressure Weight 82/minute 16/minute 138/60 81.6 kg Height 1.765 m Harjinder Jones MD 2025 12:16 PM Signed Harjinder Jones MD Interventional Cardiology [address] [place] [address] [id number] Chief Complaint Patient presents with: Follow Up: 6 week follow up, c/o chest pain HISTORY OF PRESENT ILLNESS: Mr. Kline is a 85 year old male seen in my office today for follow-up patient had a prior history of severe [place] coronary artery disease with prior history of [...] meals. FOL (more content not included)... Normal [facility] CNOVon 03-02-2025 CNOV Office Visit (AGCARDPOB) FLEX KLINE ([id number]) 1940 M Date Time Provider Department 03/02/25 10:20 AM KWAN ESTRELLA AGCARDPOKevon During your visit today, we recorded the following information about you: Pulse Blood pressure Weight 69/minute 113/63 81.6 kg Kwan Estrella MD 03/02/2025 11:18 AM Signed [facility] SECTION OF CARDIAC PACING and ELECTROPHYSIOLOGY OUTPATIENT VISIT DATE March 02, 2025 OUTPATIENT VISIT TYPE NEW PRIMARY CARE PHYSICIAN: Vincent Espinosa [address] [place] [address] REFERRING PHYSICIAN: Harjinder Jones [address] [facility], [address] [facility] [address] chief complaint on file. HISTORY OF PRESENT [...] currently a resident at [facility]. Had a recent UTI in 10/2024, still [...] rare (<1.0%). Isolated VEs were rare (<1.0%, 25855), VE Couplets were rare (<1.0%, 63), and [...] No Fa (more content not included)... Normal [facility] ECG B/O W INTERP (MED OFFICE )on 03-02-2025 .Sinus rhythm 68 bpm SC 264ms First degree AVB QRS 96ms QT/c 398/423ms nl Qrs morphology and early repol change in 2.3.aVF [facility] Absolute lymphocyte countOrd ered By: Buzz Rainey on 03-01-2025 Lymphocytes Auto (Unsp spec) [#/Vol] 0.88 10*3/uL 0.83-4.51 [facility] Absolute neutrophil countOrd ered By: Buzz Rainey on 03-01-2025 Neutrophils (Bld) [#/Vol] 4.2 10*3/uL 2.0-7.7 [facility] Anion gap in Serum or Plasma Ordered By: Buzz Rainey on 03-01-2025 Anion gap [Moles/Vol] 13 mmol/L 5-15 [facility] Automated lymphocyte count a s percentage of total leukocytesOrdered By: Buzz Rainey on 03-01-2025 Lymphocytes/100 WBC Auto (Unsp spec) 14.9 % Low 19-41 [facility] BUN/creatinine ratioOrdered By: Eftamanna De La Pazmklana on 03-01-2025 Urea nitrogen/Creatinine [Mass ratio] 37.1 mg/mg High 10-20 [facility] Basophil percentageOrdered B y: Buzz Brainmklana on 03-01-2025 Basophils/100 WBC (Bld) 0.7 % 0-1 [facility] Carbon dioxide, total [Moles /volume] in Central venous bloodOrdered By: Alexandratamanna De La Pazmklana on 03-01-2025 CO2 [Moles/Vol] 21.5 mmol/L 21.0-32.0 [facility] Chloride assayOrdered By: Alexandra kenestrella De La Pazmklana on 03-01-2025 Chloride [Moles/Vol] 104 mmol/L 98-108 [facility] Eosinophil percentageOrdered By: Alexandrayumikoarthur Brainmklana on 03-01-2025 Eosinophils/100 WBC (Bld) 3.7 % 0-5 [facility] Erythrocyte distribution wid th ratioOrdered By: Alexandrayumikoarthur Brainmklana on 03-01-2025 Erythrocyte distribution width (RBC) [Ratio] 11.9 % 11.6-14.6 [facility] Erythrocyte distribution wid th standard deviationOrdered By: yumikonew marketestrella De La Pazmklana on 03-01-2025 Erythrocyte distribution width (RBC) [Ratio] 43.6 fl 35.1-43.9 [facility] Glomerular filtration rate ( GFR) estimation/1.73 sq m using serum, plasma, or whole bOrdered By: Alexandratamanna De La Pazmklana on 03-01-2025 GFR/1.73 sq M.predicted among non-blacks MDRD (S/P/Bld) [Vol rate/Area] 61 mL/min/{1.73_m2} >60 [facility] Comment on above: mL/min/1.73m2 CKD-EP I Creatinine Equation (2020) Hematocrit Auto (Bld) [Volum e fraction]Ordered By: Buzz Rainey on 03-01-2025 Hematocrit (Bld) [Volume fraction] 40.7 % 40-54 [facility] Hemoglobin measurementOrdere d By: Buzz Rainey on 03-01-2025 Hemoglobin (Bld) [Mass/Vol] 13.9 g/dL 13.0-16.5 [facility] Immature granulocytes/100 WB C Auto (Bld)Ordered By: Buzz Rainey on 03-01-2025 Immature granulocytes/100 WBC (Bld) 0.200 % 0.0-0.9 [facility] Comment on above: IG% - Immature Granu locytes (promyelocytes, myelocytes and metamyelocytes) > 1% indicates that a LEFT SHIFT is Present. MCV (mean corpuscular volume ) determinationOrdered By: Buzz Rainey on 03-01-2025 MCV (RBC) [Entitic vol] 99.5 fL High 80-94 [facility] Mean corpuscular hemoglobin (MCH) determinationOrdered By: Buzz Rainey on 03-01-2025 MCH (RBC) [Entitic mass] 34.0 pg High 27.0-32.0 [facility] Mean corpuscular hemoglobin concentration (MCHC) determinationOrdered By: Buzz Rainey on 03-01-2025 MCHC (RBC) [Mass/Vol] 34.2 g/dL 32-36 [facility] Mean platelet volume determi nationOrdered By: Buzz Rainey on 03-01-2025 Platelet mean volume (Bld) [Entitic vol] 10.4 fL 6.2-12.0 [facility] Monocyte percentageOrdered B y: Buzz Rainey on 03-01-2025 Monocytes/100 WBC (Bld) 8.5 % 0-10 [facility] Neutrophil percentageOrdered By: Buzz Rainey on 03-01-2025 Neutrophils/100 WBC (Bld) 72.0 % High 47-70 [facility] Nucleated red blood cell per centageOrdered By: Buzz Rainey on 03-01-2025 Nucleated RBC/100 WBC (Bld) [Ratio] 0 % 0-5 [facility] Platelet countOrdered By: Alexandra Rainey on 03-01-2025 Platelets (Bld) [#/Vol] 213 10*3/uL 150-450 [facility] Potassium measurement (mass/ volume)Ordered By: Buzz Rainey on 03-01-2025 Potassium (Unsp spec) [Mass/Vol] 4.5 mmol/L 3.3-5.1 [facility] RBC Auto (Bld) [#/Vol]Ordere d By: Buzz Rainey on 03-01-2025 RBC (Bld) [#/Vol] 4.09 10*6/uL Low 4.6-6.2 [facility] Serum creatinine measurement (mass/volume)Ordered By: Buzz Rainey on 03-01-2025 Creatinine [Mass/Vol] 1.19 mg/dL 0.70-1.20 [facility] Serum glucose measurement (m ass/volume)Ordered By: Buzz Rainey on 03-01-2025 Glucose [Mass/Vol] 152 mg/dL High 70-99 [facility] Serum or plasma calcium jesenia urement (mass/volume)Ordered By: Buzz Rainey on 03-01-2025 Calcium [Mass/Vol] 9.5 mg/dL 7.6-11.0 [facility] Serum or plasma urea nitroge n measurement (mass/volume)Ordered By: Buzz Rainey on 03-01-2025 Urea nitrogen [Mass/Vol] 44 mg/dL High 4-19 [facility] Sodium levelOrdered By: Otilia baileyjovan Redd on 03-01-2025 Sodium [Moles/Vol] 138 mmol/L 133-145 [facility] White blood cell (WBC) count Ordered By: Buzz Rainey on 03-01-2025 WBC (Bld) [#/Vol] 5.9 10*3/uL 4.4-11.0 [facility] Bilirubin Test strip Ql (U)O rdered By: Buzz Rainey on 02-28-2025 Bilirubin Ql (U) Negative Negative [facility] Ketones Test strip Ql (U)Ord ered By: Buzz Rainey on 02-28-2025 Ketones Ql (U) Negative Negative [facility] Nitrite Test strip Ql (U)Ord ered By: Buzz Rainey on 02-28-2025 Nitrite Ql (U) Negative Negative [facility] Protein Test strip Ql (U)Ord ered By: Buzz Rainey on 02-28-2025 Protein Ql (U) 15 mg/dl High Negative [facility] Urine clarityOrdered By: Franklin Rainey on 02-28-2025 Clarity (U) Clear Clear [facility] Urine color determinationOrd ered By: Buzz Rainey on 02-28-2025 Color (U) Straw Yellow [facility] Urine cultureOrdered By: Franklin Rainey on 02-28-2025 Bacteria identified Cx Nom (U) Positive Abnormal [facility] Urine glucose detectionOrder ed By: Buzz Rainey on 02-28-2025 Glucose Ql (U) 1000 mg/dl High Normal [facility] Urine leukocyte esterase det ection by dipstickOrdered By: Buzz Rainey on 02-28-2025 Leukocyte esterase Test strip Ql (U) 25 /ul High Negative [facility] Urine pHOrdered By: Mallorie Rainey on 02-28-2025 pH (U) 6.0 [pH] 5.0 - 8.0 [facility] Urine specific gravity measu rementOrdered By: Buzz Rainey on 02-28-2025 Specific gravity (U) [Rel density] 1.020 1.002-1.030 [facility] Urine urobilinogen measureme ntOrdered By: Buzz Rainey on 02-28-2025 Urobilinogen Ql (U) Normal mg/dl Normal [facility] Endocrinology Visit Reporton 02-27-2025 Endocrinology Visit Report [facility] [address] [facility] 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 Normal [facility] Absolute lymphocyte countOrd ered By: Buzz Rainey on 01-31-2025 Lymphocytes Auto (Unsp spec) [#/Vol] 0.83 10*3/uL 0.83-4.51 [facility] Absolute neutrophil countOrd ered By: Buzz Rainey on 01-31-2025 Neutrophils (Bld) [#/Vol] 3.3 10*3/uL 2.0-7.7 [facility] Anion gap in Serum or Plasma Ordered By: Bzuz Rainey on 01-31-2025 Anion gap [Moles/Vol] 14 mmol/L 5-15 [facility] Automated lymphocyte count a s percentage of total leukocytesOrdered By: Buzz Rainey on 01-31-2025 Lymphocytes/100 WBC Auto (Unsp spec) 16.0 % Low 19-41 [facility] BUN/creatinine ratioOrdered By: Buzz Rainey on 01-31-2025 Urea nitrogen/Creatinine [Mass ratio] 28.0 mg/mg High 10-20 [facility] Basophil percentageOrdered B y: Buzz Rainey on 01-31-2025 Basophils/100 WBC (Bld) 0.4 % 0-1 [facility] Bilirubin directOrdered By: Buzz Rainey on 01-31-2025 Bilirubin.direct [Mass/Vol] 0.22 mg/dL 0.00-0.30 [facility] Bilirubin, totalOrdered By: Buzz Rainey on 01-31-2025 Bilirubin [Mass/Vol] 0.47 mg/dL 0.00-1.30 [facility] Carbon dioxide, total [Moles /volume] in Central venous bloodOrdered By: Buzz Rainey on 01-31-2025 CO2 [Moles/Vol] 21.6 mmol/L 21.0-32.0 [facility] Chloride assayOrdered By: Alexandra Rainey on 01-31-2025 Chloride [Moles/Vol] 101 mmol/L 98-108 [facility] Eosinophil percentageOrdered By: Buzz De La Pazmklana on 01-31-2025 Eosinophils/100 WBC (Bld) 6.2 % High 0-5 [facility] Erythrocyte distribution wid th (RBC) [Ratio]Ordered By: Buzz De La Pazmklana on 01-31-2025 Erythrocyte distribution width (RBC) [Entitic vol] 45.0 fL High 35.1-43.9 [facility] Erythrocyte distribution wid th ratioOrdered By: Otiliaarthur De La Pazmklana on 01-31-2025 Erythrocyte distribution width (RBC) [Ratio] 12.1 % 11.6-14.6 [facility] Erythrocyte distribution wid th standard deviationOrdered By: Otilianew marketestrella De La Pazmklana on 01-31-2025 Erythrocyte distribution width (RBC) [Ratio] 45.0 fl High 35.1-43.9 [facility] GFR/1.73 sq M.predicted [place] g non-blacks MDRD (S/P/Bld) [Vol rate/Area]Ordered By: Buzz Rainey on 01-31-2025 Estimated GFR (MDRD) Non-Af Amer 49 Low >60 [facility] Comment on above: mL/min/1.73m2 CKD-EP I Creatinine Equation (2020) Glomerular filtration rate ( GFR) estimation/1.73 sq m using serum, plasma, or whole bOrdered By: Buzz Rainey on 01-31-2025 GFR/1.73 sq M.predicted among non-blacks MDRD (S/P/Bld) [Vol rate/Area] 49 mL/min/{1.73_m2} Low >60 [facility] Comment on above: mL/min/1.73m2 CKD-EP I Creatinine Equation (2020) Hematocrit Auto (Bld) [Volum e fraction]Ordered By: Buzz Rainey on 01-31-2025 Hematocrit (Bld) [Volume fraction] 39.9 % Low 40-54 [facility] Hemoglobin A1c percentageOrd ered By: Buzz Rainey on 01-31-2025 HbA1c (Bld) [Mass fraction] 7.9 % >5.7 [facility] Hemoglobin measurementOrdere d By: Buzz Rainey on 01-31-2025 Hemoglobin (Bld) [Mass/Vol] 13.8 g/dL 13.0-16.5 [facility] Immature granulocytes/100 WB C Auto (Bld)Ordered By: Buzz Rainey on 01-31-2025 Immature granulocytes/100 WBC (Bld) 0.200 % 0.0-0.9 [facility] Comment on above: IG% - Immature Granu locytes (promyelocytes, myelocytes and metamyelocytes) > 1% indicates that a LEFT SHIFT is Present. Laboratory - Chemistry and C hemistry - challengeOrdered By: Buzz Rainey on 01-31-2025 AST [Catalytic activity/Vol] 32 U/L <38 [facility] Lymphocytes Auto (Unsp spec) [#/Vol]Ordered By: Buzz Rainey on 01-31-2025 Lymphocytes (Bld) [#/Vol] 0.83 10*3/uL 0.83-4.51 [facility] Lymphocytes/100 WBC Auto (Un sp spec)Ordered By: Buzz Rainey on 01-31-2025 Lymphocytes/100 WBC (Bld) 16.0 % Low 19-41 [facility] MCV (mean corpuscular volume ) determinationOrdered By: Buzz Rainey on 01-31-2025 MCV (RBC) [Entitic vol] 99.8 fL High 80-94 [facility] Magnesium (Unsp spec) [Mass/ Vol]Ordered By: Buzz Rainey on 01-31-2025 Magnesium [Mass/Vol] 2.2 mg/dL 1.5-2.2 [facility] Magnesium measurement (mass/ volume)Ordered By: Buzz Rainey on 01-31-2025 Magnesium (Unsp spec) [Mass/Vol] 2.2 mg/dL 1.5-2.2 [facility] Mean corpuscular hemoglobin (MCH) determinationOrdered By: Buzz Rainey on 01-31-2025 MCH (RBC) [Entitic mass] 34.5 pg High 27.0-32.0 [facility] Mean corpuscular hemoglobin concentration (MCHC) determinationOrdered By: Buzz Rainey on 01-31-2025 MCHC (RBC) [Mass/Vol] 34.6 g/dL 32-36 [facility] Mean platelet volume determi nationOrdered By: Buzz Rainey on 01-31-2025 Platelet mean volume (Bld) [Entitic vol] 10.6 fL 6.2-12.0 [facility] Monocyte percentageOrdered B y: Buzz Rainey on 01-31-2025 Monocytes/100 WBC (Bld) 12.7 % High 0-10 [facility] Neutrophil percentageOrdered By: Buzz Rainey on 01-31-2025 Neutrophils/100 WBC (Bld) 64.5 % 47-70 [facility] Nucleated red blood cell per centageOrdered By: Buzz Rainey on 01-31-2025 Nucleated RBC/100 WBC (Bld) [Ratio] 0 % 0-5 [facility] Platelet countOrdered By: Alexandra Rainey on 01-31-2025 Platelets (Bld) [#/Vol] 218 10*3/uL 150-450 [facility] Potassium (Unsp spec) [Mass/ Vol]Ordered By: Buzz Rainey on 01-31-2025 Potassium [Moles/Vol] 5.3 mmol/L High 3.3-5.1 [facility] Potassium measurement (mass/ volume)Ordered By: Buzz Rainey on 01-31-2025 Potassium (Unsp spec) [Mass/Vol] 5.3 mmol/L High 3.3-5.1 [facility] RBC Auto (Bld) [#/Vol]Ordere d By: Buzz Rainey on 01-31-2025 RBC (Bld) [#/Vol] 4.00 10*6/uL Low 4.6-6.2 [facility] Serum creatinine measurement (mass/volume)Ordered By: Buzz Rainey on 01-31-2025 Creatinine [Mass/Vol] 1.43 mg/dL High 0.70-1.20 [facility] Serum globulin measurementOr dered By: Buzz Rainey on 01-31-2025 Globulin (S) [Mass/Vol] 2.8 g/dL 2.2-4.2 [facility] Serum glucose measurement (m ass/volume)Ordered By: Buzz Rainey on 01-31-2025 Glucose [Mass/Vol] 265 mg/dL High 70-99 [facility] Serum or plasma alanine nix otransferase (ALT) measurementOrdered By: Buzz Rainey on 01-31-2025 ALT [Catalytic activity/Vol] 35 U/L <47 [facility] Serum or plasma albumin jesenia urement (mass/volume)Ordered By: Buzz Rainey on 01-31-2025 Albumin [Mass/Vol] 4.3 g/dL 3.4-4.8 [facility] Serum or plasma alkaline radha sphatase measurementOrdered By: Buzz Rainey on 01-31-2025 ALP [Catalytic activity/Vol] 83 U/L 40-129 [facility] Serum or plasma calcium jesenia urement (mass/volume)Ordered By: Buzz Rainey on 01-31-2025 Calcium [Mass/Vol] 9.3 mg/dL 7.6-11.0 [facility] Serum or plasma urea nitroge n measurement (mass/volume)Ordered By: Buzz Rainey on 01-31-2025 Urea nitrogen [Mass/Vol] 40 mg/dL High 4-19 [facility] Sodium levelOrdered By: Otilia baileyjovan Redd on 01-31-2025 Sodium [Moles/Vol] 137 mmol/L 133-145 [facility] Total proteinOrdered By: Franklin Rainey on 01-31-2025 Protein [Mass/Vol] 7.1 g/dL 5.9-8.4 [facility] Vitamin D, 25-hydroxyOrdered By: Buzz Rainey on 01-31-2025 Vitamin D 25-Hydroxy 38.8 ng/mL 30-100 [facility] Comment on above: Vitamin D StatusDefi ciency: <20 ng/mL (50nmol/L)Insufficiency: 20-30 ng/mL (50-75 nmol/L)Sufficiency: 30-100 ng/mL (75-250 nmol/L)Toxicity: >100 ng/mL (>250 nmol/L) White blood cell (WBC) count Ordered By: Buzz Rainey on 01-31-2025 WBC (Bld) [#/Vol] 5.2 10*3/uL 4.4-11.0 [facility] CBC panel Auto (Bld)on 01-22 Erythrocyte distribution width (RBC) [Ratio] 12.4 % 11.5 - 15.0 % [facility] Hematocrit (Bld) [Volume fraction] 37.7 % Low 39.0 - 51.0 % [facility] Hemoglobin (Bld) [Mass/Vol] 12.8 g/dL Low 13.0 - 17.0 g/dL [facility] Interpretation and review of laboratory results Abnormal [facility] MCH (RBC) [Entitic mass] 33.3 pg 26.0 - 34.0 pg [facility] MCHC (RBC) [Mass/Vol] 34 g/dL 30.5 - 36.0 g/dL [facility] MCV (RBC) [Entitic vol] 98.2 fL 80.0 - 100.0 fL [facility] Nucleated RBC (Bld) [#/Vol] NINF [facility] Platelet mean volume (Bld) [Entitic vol] 9.4 fL 9.0 - 12.7 fL [facility] Platelets (Bld) [#/Vol] 216 10*3/uL [facility] RBC (Bld) [#/Vol] 3.84 10*6/uL Low 4.20 - 6.0 0 m/uL [facility] WBC (Bld) [#/Vol] 5.09 10*3/uL [facility] Erythrocyte distribution width (RBC) [Ratio] 12.4 % Normal 11.5-15.[address] [facility] Comment on above: Order Comment: Speci men Type: BLOOD SPECIMEN Ordering Facility: [facility] Address: [address] [place] [address] Performed By: #### 5 8410-2 #### [facility] [id number] [address] [place] [id number] [place] [address] [place] Hematocrit (Bld) [Volume fraction] 37.7 % Low 39.0-51.[address] [facility] Comment on above: Order Comment: Speci men Type: BLOOD SPECIMEN Ordering Facility: [facility] Address: [address] [place], [place] [address] Performed By: #### 5 8410-2 #### [facility] CLIA [id number] [address] [place] [address] [place] Hemoglobin (Bld) [Mass/Vol] 12.8 g/dL Low 13.0-17.[address] [facility] Comment on above: Order Comment: Speci men Type: BLOOD SPECIMEN Ordering Facility: [facility] Address: [address] [place] [address] Performed By: #### 5 8410-2 #### [facility] [id number] [address] [place] [address] [place] MCH (RBC) [Entitic mass] 33.3 pg Normal 26.0-34.[address] [facility] Comment on above: Order Comment: Speci men Type: BLOOD SPECIMEN Ordering Facility: [facility] Address: [address] [place] [address] Performed By: #### 5 8410-2 #### [facility] [id number] [address] [place] [address] [place] MCHC (RBC) [Mass/Vol] 34.0 g/dL Normal 30.5-36.0 [facility] Comment on above: Order Comment: Speci men Type: BLOOD SPECIMEN Ordering Facility: [facility] Address: [address] [place] [address] Performed By: #### 5 8410-2 #### [facility] [id number] [address] [place] [address] [place] MCV (RBC) [Entitic vol] 98.2 fL Normal 80.0-100.0 [facility] Comment on above: Order Comment: Speci men Type: BLOOD SPECIMEN Ordering Facility: [facility] Address: [address] [place] [address] Performed By: #### 5 8410-2 #### [facility] CLIA [id number] [address] [place] [address] [place] Nucleated RBC (Bld) [#/Vol] 10*3/uL Normal <0.[address] [facility] Comment on above: Order Comment: Speci men Type: BLOOD SPECIMEN Ordering Facility: [facility] Address: [address] [place] [address] Performed By: #### 5 8410-2 #### [facility] CLIA [id number] [address] [place] [address] [place] Platelet mean volume (Bld) [Entitic vol] 9.4 fL Normal 9.0-12.[address] [facility] Comment on above: Order Comment: Speci men Type: BLOOD SPECIMEN Ordering Facility: [facility] Address: [address] [place] [address] Performed By: #### 5 8410-2 #### [facility] CLIA [id number] [address] [place] [address] [place] Platelets (Bld) [#/Vol] 216 10*3/uL Normal 150-[address] [facility] Comment on above: Order Comment: Speci men Type: BLOOD SPECIMEN Ordering Facility: [facility] Address: [address] [place] [address] Performed By: #### 5 8410-2 #### [facility] CLIA [id number] [address] [place] [address] [place] RBC (Bld) [#/Vol] 3.84 10*6/uL Low 4.20-6.00 [facility] Comment on above: Order Comment: Speci men Type: BLOOD SPECIMEN Ordering Facility: [facility] Address: [address] [place] [address] Performed By: #### 5 8410-2 #### [facility] CLIA [id number] [address] [place] [address] [place] WBC (Bld) [#/Vol] 5.09 10*3/uL Normal 3.70-11.00 [facility] Comment on above: Order Comment: Speci men Type: BLOOD SPECIMEN Ordering Facility: [facility] Address: [address] [place], [place] [address] [address] Performed By: #### 5 8410-2 #### [facility] CLIA [id number] [address] [place] [address] [place] CNOVon 01-22-2025 CNOV Office Visit (GONZALO ) FLEX KLINE ([id number]) 1940 M Date Time Provider Department 01/22/25 1:40 PM HARJINDER JONES During your visit today, we recorded the following information about you: Pulse Respiration Blood pressure Weight 91/minute 14/minute 156/70 79.8 kg Height 1.765 m Harjinder Jones MD 01/22/2025 2:39 PM Signed Harjinder Jones MD Interventional Cardiology [address] [place] [phone] Chief Complaint Patient presents with: Follow Up: [...] inflammatory demyelinating polyneuropathy) (HCC) Coronary atherosclerosis Diabetes ([facility]) 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 Normal [facility] Comprehensive metabolic 2000 panelOrdered By: Jamsina Young on 01-22-2025 Albumin [Mass/Vol] 4.1 g/dL 3.9 - 4.9 g/dL [facility] ALP [Catalytic activity/Vol] 76 U/L 38 - 113 U/L [facility] ALT [Catalytic activity/Vol] 20 U/L 10 - 54 U/L [facility] Anion gap [Moles/Vol] 9 mmol/L 8 - 15 mmol/L [facility] AST [Catalytic activity/Vol] 19 U/L 14 - 40 U/L [facility] Bilirubin [Mass/Vol] 0.6 mg/dL 0.2 - 1 .3 mg/dL [facility] Calcium [Mass/Vol] 9.3 mg/dL 8.5 - 10. 2 mg/dL [facility] Chloride [Moles/Vol] 103 mmol/L 98 - 10 7 mmol/L [facility] CO2 [Moles/Vol] 27 mmol/L 22 - 30 mmol/L [facility] Creatinine [Mass/Vol] 1.32 mg/dL High 0.73 - 1.22 mg/dL [facility] GFR/1.73 sq M.predicted among non-blacks MDRD (S/P/Bld) [Vol rate/Area] 54 mL/min/{1.73_m2} Low - PINF [facility] Comment on above: Estimated Glomerular Filtration Rate [...] 171 mg/dL High 74 - 99 mg/dL [facility] Comment on above: The [place] Di[employer] Association (ADA) provides guidance for [...] Standards of Medical Care in Diabetes 2016, [place] [employer]. Diabetes Care. 2016.39(Suppl 1). Interpretation and review of laboratory results Abnormal [facility] Potassium [Moles/Vol] 5.1 mmol/L 3.7 - 5.1 mmol/L [facility] Protein [Mass/Vol] 6.7 g/dL 6.3 - 8.0 g/dL [facility] Sodium [Moles/Vol] 139 mmol/L 136 - 144 mmol/L [facility] Urea nitrogen [Mass/Vol] 30 mg/dL High 9 - 24 mg/dL [facility] Comprehensive metabolic 2000 panelon 01-22-2025 Albumin [Mass/Vol] 4.1 g/dL Normal 3.9-4.9 [facility] Comment on above: Order Comment: Speci men Type: BLOOD SPECIMEN Ordering Facility: [facility] Address: [address] [id number] Performed By: #### 2 4323-8 #### [facility] CLIA [id number] [address] [place] [address] [place] ALP [Catalytic activity/Vol] 76 U/L Normal 38-[address] [facility] Comment on above: Order Comment: Speci men Type: BLOOD SPECIMEN Ordering Facility: [facility] Address: [address] [place] [address] Performed By: #### 2 4323-8 #### [facility] CLIA [id number] [address] [place] [address] [place] ALT [Catalytic activity/Vol] 20 U/L Normal 10-[address] [facility] Comment on above: Order Comment: Speci men Type: BLOOD SPECIMEN Ordering Facility: [facility] Address: [address] [place] [address] Performed By: #### 2 4323-8 #### [facility] CLIA [id number] [address] [place] [address] [place] Anion gap [Moles/Vol] 9 mmol/L Normal 8-15 [facility] Comment on above: Order Comment: Speci men Type: BLOOD SPECIMEN Ordering Facility: [facility] Address: [facility] [place] [address] Performed By: #### 2 4323-8 #### [facility] CLIA [id number] [address] [place] [address] [place] AST [Catalytic activity/Vol] 19 U/L Normal 14-[address] [facility] Comment on above: Order Comment: Speci men Type: BLOOD SPECIMEN Ordering Facility: [facility] Address: [address] [facility] [place] [address] Performed By: #### 2 4323-8 #### [facility] CLIA [id number] [address] [place] [address] [place] Bilirubin [Mass/Vol] 0.6 mg/dL Normal 0.2-1.3 [facility] Comment on above: Order Comment: Speci men Type: BLOOD SPECIMEN Ordering Facility: [facility] Address: [address] [place] [address] Performed By: #### 2 4323-8 #### [facility] CLIA [id number] [address] [place] [address] [place] Calcium [Mass/Vol] 9.3 mg/dL Normal 8.5-10.2 [facility] Comment on above: Order Comment: Speci men Type: BLOOD SPECIMEN Ordering Facility: [facility] Address: [address] [place] [address] Performed By: #### 2 4323-8 #### [facility] CLIA [id number] [address] [place] [address] [place] Chloride [Moles/Vol] 103 mmol/L Normal 98-107 [facility] Comment on above: Order Comment: Speci men Type: BLOOD SPECIMEN Ordering Facility: [facility] Address: [address] [place] [address] Performed By: #### 2 4323-8 #### [facility] CLIA [id number] [address] [place] [address] [place] CO2 [Moles/Vol] 27 mmol/L Normal 22-[address] [facility] Comment on above: Order Comment: Speci men Type: BLOOD SPECIMEN Ordering Facility: [facility] Address: [address] [place] [address] Performed By: #### 2 4323-8 #### [facility] CLIA [id number] [address] [place] [address] [place] Creatinine [Mass/Vol] 1.32 mg/dL High 0.73-1.22 [facility] Comment on above: Order Comment: Speci men Type: BLOOD SPECIMEN Ordering Facility: [facility] Address: [address] [place] [address] Performed By: #### 2 4323-8 #### [facility] CLIA [id number] [address] [place] [address] [place] Creatinine and Glomerular filtration rate.predicted panel (S/P/Bld) 54 mL/min/1.73m??? Low >=[address] [facility] Comment on above: Order Comment: Krystyna funk Type: BLOOD SPECIMEN Ordering Facility: [facility] Address: [address] [place] [address] Result Comment: Beatrice mated Glomerular Filtration Rate [...] GFR. Performed By: #### 2 4323-8 #### [facility] [id number] [address] [place] [address] [place] Glucose [Mass/Vol] 171 mg/dL High 74-99 [facility] Comment on above: Order Comment: Krystyna funk Type: BLOOD SPECIMEN Ordering Facility: [facility] Address: [address] [place] [address] Result Comment: The [place] Diabetes Association (ADA) provides guidance for cutoff [...] Standards of Medical Care in Diabetes 2016, [place] [employer]. Diabetes Care. 2016.39(Suppl 1). Performed By: #### 2 4323-8 #### [facility] [id number] [address] [place] [address] [place] Potassium [Moles/Vol] 5.1 mmol/L Normal 3.7-5.1 [facility] Comment on above: Order Comment: Speci men Type: BLOOD SPECIMEN Ordering Facility: [facility] Address: [address] [place], [place] [address] Performed By: #### 2 4323-8 #### [facility] CLIA [id number] [address] [place] [address] [place] Protein [Mass/Vol] 6.7 g/dL Normal 6.3-8.0 [facility] Comment on above: Order Comment: Speci men Type: BLOOD SPECIMEN Ordering Facility: [facility] Address: [address] [place] [address] Performed By: #### 2 4323-8 #### [facility] [id number] [address] [place] [address] [place] Sodium [Moles/Vol] 139 mmol/L Normal 136-144 [facility] Comment on above: Order Comment: Speci men Type: BLOOD SPECIMEN Ordering Facility: [facility] Address: [address] [place] [address] Performed By: #### 2 4323-8 #### [facility] [id number] [address] [place] [address] [place] Urea nitrogen [Mass/Vol] 30 mg/dL High 9-[address] [facility] Comment on above: Order Comment: Speci men Type: BLOOD SPECIMEN Ordering Facility: [facility] Address: [address] [place], [place] [address] Performed By: #### 2 4323-8 #### [facility] [id number] [address] [place] [address] [place] NT-proBNP [facility] 01-22 Natriuretic peptide.B prohormone N-Terminal [Mass/Vol] 437 pg/mL Normal <[address] [facility] Comment on above: Order Comment: Speci men Type: BLOOD SPECIMEN Ordering Facility: [facility] Address: [facility] [place] [address] Performed By: #### 3 3762-6, 3016-3 #### [facility] CLIA [id number] [address] [place] [address] [place] TSH SerPl-aCncon 01-22-2025 TSH Qn 5.250 m[IU]/L High 0.270-4.[address] [facility] Comment on above: Order Comment: Speci men Type: BLOOD SPECIMEN Ordering Facility: [facility] Address: [facility] [place] [address] Performed By: #### 3 3762-6, 3016-3 #### [facility] CLIA [id number] [address] [place] Absolute lymphocyte countOrd ered By: Buzz Rainey on 01-04-2025 Lymphocytes Auto (Unsp spec) [#/Vol] 0.86 10*3/uL 0.83-4.51 [facility] Absolute neutrophil countOrd ered By: Buzz Rainey on 01-04-2025 Neutrophils (Bld) [#/Vol] 2.9 10*3/uL 2.0-7.7 [facility] Automated lymphocyte count a s percentage of total leukocytesOrdered By: Buzz Rainey on 01-04-2025 Lymphocytes/100 WBC Auto (Unsp spec) 17.8 % Low 19-41 [facility] Basophil percentageOrdered B y: Buzz Rainey on 01-04-2025 Basophils/100 WBC (Bld) 0.6 % 0-1 [facility] Blood urea nitrogen (BUN)/cr eatinine ratioOrdered By: Buzz Rainey on 01-04-2025 Urea nitrogen/Creatinine [Mass ratio] 19.2 mg/mg 10-20 [facility] Carbon dioxide measurementOr dered By: Buzz Rainey on 01-04-2025 CO2 [Moles/Vol] 30.0 mmol/L 21.0-32.0 [facility] Chloride measurementOrdered By: Buzz Rainey on 01-04-2025 Chloride [Moles/Vol] 107 mmol/L 98-107 [facility] Eosinophil percentageOrdered By: Buzz Rainey on 01-04-2025 Eosinophils/100 WBC (Bld) 7.7 % High 0-5 [facility] Erythrocyte distribution wid th (RBC) [Ratio]Ordered By: Buzz Rainey on 01-04-2025 Erythrocyte distribution width (RBC) [Entitic vol] 46.5 fL High 35.1-43.9 [facility] Erythrocyte distribution wid th ratioOrdered By: Buzz Rainey on 01-04-2025 Erythrocyte distribution width (RBC) [Ratio] 12.4 % 11.6-14.6 [facility] Erythrocyte distribution wid th standard deviationOrdered By: Buzz Rainey on 01-04-2025 Erythrocyte distribution width (RBC) [Ratio] 46.5 fl High 35.1-43.9 [facility] Estimated glomerular filtrat ion rate (GFR) AmericanOrdered By: Buzz Rainey on 01-04-2025 Estimated GFR (MDRD) Amer 57 mL/min Low >60 [facility] Comment on above: GFR Calc Glomerular filtration rate ( GFR) estimationOrdered By: Buzz Rainey on 01-04-2025 Estimated GFR (MDRD) Non-Af Amer 47 mL/min Low >60 [facility] Comment on above: Non- GFR Calc GFR/1.73 sq M.predicted among non-blacks MDRD (S/P/Bld) [Vol rate/Area] 47 mL/min/{1.73_m2} Low >60 [facility] Comment on above: Non- GFR Calc Glucose measurementOrdered B y: Buzz Rainey on 01-04-2025 Glucose [Mass/Vol] 225 mg/dL High 74-106 [facility] Comment on above: Glucose result great er than or equal to 200 mg/dLsuggests DIABETES MELLITUS per A.D.A. criteria. Hematocrit Auto (Bld) [Volum e fraction]Ordered By: Buzz Rainey on 01-04-2025 Hematocrit (Bld) [Volume fraction] 39.9 % Low 40-54 [facility] Hemoglobin measurementOrdere d By: Alexandrayumikohueyestrella De La Pazmklana on 01-04-2025 Hemoglobin (Bld) [Mass/Vol] 13.1 g/dL 13.0-16.5 [facility] Immature granulocytes/100 WB C Auto (Bld)Ordered By: tamanna Rainey on 01-04-2025 Immature granulocytes/100 WBC (Bld) 0.200 % 0.0-0.9 [facility] Comment on above: IG% - Immature Granu locytes (promyelocytes, myelocytes and metamyelocytes) > 1% indicates that a LEFT SHIFT is Present. Lymphocytes Auto (Unsp spec) [#/Vol]Ordered By: Buzz Rainey on 01-04-2025 Lymphocytes (Bld) [#/Vol] 0.86 10*3/uL 0.83-4.51 [facility] Lymphocytes/100 WBC Auto (Un sp spec)Ordered By: Buzz Rainey on 01-04-2025 Lymphocytes/100 WBC (Bld) 17.8 % Low 19-41 [facility] MCV (mean corpuscular volume ) determinationOrdered By: Buzz Rainey on 01-04-2025 MCV (RBC) [Entitic vol] 101.0 fL High 80-94 [facility] Mean corpuscular hemoglobin (MCH) determinationOrdered By: tamanna Raieny on 01-04-2025 MCH (RBC) [Entitic mass] 33.2 pg High 27.0-32.0 [facility] Mean corpuscular hemoglobin concentration (MCHC) determinationOrdered By: tamanna Rainey on 01-04-2025 MCHC (RBC) [Mass/Vol] 32.8 g/dL 32-36 [facility] Mean platelet volume determi nationOrdered By: tamanna Rainey on 01-04-2025 Platelet mean volume (Bld) [Entitic vol] 10.0 fL 6.2-12.0 [facility] Monocyte percentageOrdered B y: Buzz Rainey on 02-13-2025 Monocytes/100 WBC (Bld) 12.8 % High 0-10 [facility] Neutrophil percentageOrdered By: Buzz Rainey on 01-04-2025 Neutrophils/100 WBC (Bld) 60.9 % 47-70 [facility] Nucleated red blood cell per centageOrdered By: Buzz Rainey on 01-04-2025 Nucleated RBC/100 WBC (Bld) [Ratio] 0 % 0-5 [facility] Platelet countOrdered By: Alexandra Rainey on 01-04-2025 Platelets (Bld) [#/Vol] 217 10*3/uL 150-450 [facility] Potassium measurementOrdered By: Buzz Rainey on 01-04-2025 Potassium [Moles/Vol] 4.5 mmol/L 3.5-5.1 [facility] Comment on above: Slight Hemolysis, Re sult may be falsely increased. RBC Auto (Bld) [#/Vol]Ordere d By: Buzz Rainey on 01-04-2025 RBC (Bld) [#/Vol] 3.95 10*6/uL Low 4.6-6.2 [facility] Serum anion gap measurementO rdered By: Buzz Rainey on 01-04-2025 Anion gap [Moles/Vol] 4 mmol/L Low 5-15 [facility] Serum or plasma calcium jesenia urement (mass/volume)Ordered By: Buzz Rainey on 01-04-2025 Calcium [Mass/Vol] 8.9 mg/dL 8.5-10.1 [facility] Serum or plasma creatinine m easurement (mass/volume)Ordered By: Buzz Rainey on 01-04-2025 Creatinine [Mass/Vol] 1.51 mg/dL High 0.70-1.30 [facility] Comment on above: The validity of the calculated GFR & GFRAA in patients over 70 years has not been determined. Clinical correlation is essential. Serum or plasma urea nitroge n measurement (mass/volume)Ordered By: Buzz Rainey on 01-04-2025 Urea nitrogen [Mass/Vol] 29 mg/dL High 7-18 [facility] Sodium levelOrdered By: Otilia Monreallana on 01-04-2025 Sodium [Moles/Vol] 141 mmol/L 136-145 [facility] White blood cell (WBC) count Ordered By: Buzz Rainey on 01-04-2025 WBC (Bld) [#/Vol] 4.8 10*3/uL 4.4-11.0 [facility] Absolute lymphocyte countOrd ered By: Buzz Rainey on 12-07-2024 Lymphocytes Auto (Unsp spec) [#/Vol] 1.34 10*3/uL 0.83-4.51 [facility] Absolute neutrophil countOrd ered By: Buzz Rainey on 12-07-2024 Neutrophils (Bld) [#/Vol] 3.2 10*3/uL 2.0-7.7 [facility] Automated lymphocyte count a s percentage of total leukocytesOrdered By: Alexandrayumikoarthur Brainlavelle on 12-07-2024 Lymphocytes/100 WBC Auto (Unsp spec) 24.8 % 19-41 [facility] Basophil percentageOrdered B y: Buzz Brainlavelle on 12-07-2024 Basophils/100 WBC (Bld) 0.6 % 0-1 [facility] Blood urea nitrogen (BUN)/cr eatinine ratioOrdered By: Alexandrayumikoarthur Brainmklana on 12-07-2024 Urea nitrogen/Creatinine [Mass ratio] 18.5 mg/mg 10-20 [facility] Carbon dioxide measurementOr dered By: Alexandrayumikoarthur Brainmklana on 12-07-2024 CO2 [Moles/Vol] 27.0 mmol/L 21.0-32.0 [facility] Chloride measurementOrdered By: Buzz De La Pazmklana on 12-07-2024 Chloride [Moles/Vol] 106 mmol/L 98-107 [facility] Eosinophil percentageOrdered By: Codyestrella De La Pazmklana on 12-07-2024 Eosinophils/100 WBC (Bld) 5.5 % High 0-5 [facility] Erythrocyte distribution wid th (RBC) [Ratio]Ordered By: Alexandrayumikohueyestrella De La Pazmklana on 12-07-2024 Erythrocyte distribution width (RBC) [Entitic vol] 46.2 fL High 35.1-43.9 [facility] Erythrocyte distribution wid th ratioOrdered By: Buzz Rainey on 12-07-2024 Erythrocyte distribution width (RBC) [Ratio] 12.3 % 11.6-14.6 [facility] Erythrocyte distribution wid th standard deviationOrdered By: Buzz Rainey on 12-07-2024 Erythrocyte distribution width (RBC) [Ratio] 46.2 fl High 35.1-43.9 [facility] Estimated glomerular filtrat ion rate (GFR) AmericanOrdered By: Buzz Rainey on 12-07-2024 Estimated GFR (MDRD) Amer 59 mL/min Low >60 [facility] Comment on above: GFR Calc Glomerular filtration rate ( GFR) estimationOrdered By: Buzz Rainey on 12-07-2024 Estimated GFR (MDRD) Non-Af Amer 49 mL/min Low >60 [facility] Comment on above: Non- GFR Calc GFR/1.73 sq M.predicted among non-blacks MDRD (S/P/Bld) [Vol rate/Area] 49 mL/min/{1.73_m2} Low >60 [facility] Comment on above: Non- GFR Calc Glucose measurementOrdered B y: Buzz Rainey on 12-07-2024 Glucose [Mass/Vol] 129 mg/dL High 74-106 [facility] Comment on above: Fasting Glucose resu lt greater than or equal to 126 mg/dL suggests DIABETES MELLITUS per A.D.A. criteria. Hematocrit Auto (Bld) [Volum e fraction]Ordered By: Buzz Rainey on 12-07-2024 Hematocrit (Bld) [Volume fraction] 40.6 % 40-54 [facility] Hemoglobin measurementOrdere d By: Buzz Rainey on 12-07-2024 Hemoglobin (Bld) [Mass/Vol] 13.4 g/dL 13.0-16.5 [facility] Immature granulocytes/100 WB C Auto (Bld)Ordered By: Buzz Rainey on 12-07-2024 Immature granulocytes/100 WBC (Bld) 0.200 % 0.0-0.9 [facility] Comment on above: IG% - Immature Granu locytes (promyelocytes, myelocytes and metamyelocytes) > 1% indicates that a LEFT SHIFT is Present. Lymphocytes Auto (Unsp spec) [#/Vol]Ordered By: Buzz Rainey on 12-07-2024 Lymphocytes (Bld) [#/Vol] 1.34 10*3/uL 0.83-4.51 [facility] Lymphocytes/100 WBC Auto (Un sp spec)Ordered By: Buzz Rainey on 12-07-2024 Lymphocytes/100 WBC (Bld) 24.8 % 19-41 [facility] MCV (mean corpuscular volume ) determinationOrdered By: Buzz Rainey on 12-07-2024 MCV (RBC) [Entitic vol] 102.8 fL High 80-94 [facility] Mean corpuscular hemoglobin (MCH) determinationOrdered By: Buzz Rainey on 12-07-2024 MCH (RBC) [Entitic mass] 33.9 pg High 27.0-32.0 [facility] Mean corpuscular hemoglobin concentration (MCHC) determinationOrdered By: tamanna Rainey on 12-07-2024 MCHC (RBC) [Mass/Vol] 33.0 g/dL 32-36 [facility] Mean platelet volume determi nationOrdered By: Buzz Rainey on 12-07-2024 Platelet mean volume (Bld) [Entitic vol] 10.0 fL 6.2-12.0 [facility] Monocyte percentageOrdered B y: Buzz Rainey on 12-07-2024 Monocytes/100 WBC (Bld) 9.4 % 0-10 [facility] Neutrophil percentageOrdered By: tamanna Rainey on 12-07-2024 Neutrophils/100 WBC (Bld) 59.5 % 47-70 [facility] Nucleated red blood cell per centageOrdered By: Buzz Rainey on 12-07-2024 Nucleated RBC/100 WBC (Bld) [Ratio] 0 % 0-5 [facility] Platelet countOrdered By: Alexandra Rainey on 12-07-2024 Platelets (Bld) [#/Vol] 217 10*3/uL 150-450 [facility] Potassium measurementOrdered By: Buzz Rainey on 12-07-2024 Potassium [Moles/Vol] 4.8 mmol/L 3.5-5.1 [facility] RBC Auto (Bld) [#/Vol]Ordere d By: Buzz Rainey on 12-07-2024 RBC (Bld) [#/Vol] 3.95 10*6/uL Low 4.6-6.2 [facility] Serum anion gap measurementO rdered By: Buzz Rainey on 12-07-2024 Anion gap [Moles/Vol] 5 mmol/L 5-15 [facility] Serum or plasma calcium jesenia urement (mass/volume)Ordered By: Buzz Rainey on 12-07-2024 Calcium [Mass/Vol] 9.1 mg/dL 8.5-10.1 [facility] Serum or plasma creatinine m easurement (mass/volume)Ordered By: Buzz Rainey on 12-07-2024 Creatinine [Mass/Vol] 1.46 mg/dL High 0.70-1.30 [facility] Comment on above: The validity of the calculated GFR & GFRAA in patients over 70 years has not been determined. Clinical correlation is essential. Serum or plasma urea nitroge n measurement (mass/volume)Ordered By: Buzz Rainey on 12-07-2024 Urea nitrogen [Mass/Vol] 27 mg/dL High 7-18 [facility] Sodium levelOrdered By: Otilia Rainey on 12-07-2024 Sodium [Moles/Vol] 138 mmol/L 136-145 [facility] White blood cell (WBC) count Ordered By: Buzz Rainey on 12-07-2024 WBC (Bld) [#/Vol] 5.4 10*3/uL 4.4-11.0 [facility] Absolute lymphocyte countOrd ered By: Buzz Rainey on 11-30-2024 Lymphocytes Auto (Unsp spec) [#/Vol] 1.16 10*3/uL 0.83-4.51 [facility] Absolute neutrophil countOrd ered By: Buzz Rainey on 11-30-2024 Neutrophils (Bld) [#/Vol] 2.8 10*3/uL 2.0-7.7 [facility] Automated lymphocyte count a s percentage of total leukocytesOrdered By: Buzz Rainey on 11-30-2024 Lymphocytes/100 WBC Auto (Unsp spec) 23.3 % 19-41 [facility] Basophil percentageOrdered B y: Buzz Rainey on 11-30-2024 Basophils/100 WBC (Bld) 0.6 % 0-1 [facility] Blood urea nitrogen (BUN)/cr eatinine ratioOrdered By: Otilianew marketestrella Rainey on 11-30-2024 Urea nitrogen/Creatinine [Mass ratio] 21.4 mg/mg High 10-20 [facility] Carbon dioxide measurementOr dered By: Buzz Rainey on 11-30-2024 CO2 [Moles/Vol] 28.0 mmol/L 21.0-32.0 [facility] Cardiology Visit Reporton Cardiology Visit Report [facility] [address] [place] [address] OFFICE VISIT Date of Service: 11/30/24 MR#: [id number] Acct: [id number] Name: FLEX KLINE Rep #: [id number] : 1940 Provider: Dr. 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 Normal [facility] Chloride measurementOrdered By: Buzz Rainey on 11-30-2024 Chloride [Moles/Vol] 105 mmol/L 98-107 [facility] Eosinophil percentageOrdered By: Buzz Rainey on 11-30-2024 Eosinophils/100 WBC (Bld) 6.6 % High 0-5 [facility] Erythrocyte distribution wid th (RBC) [Ratio]Ordered By: Buzz Rainey on 11-30-2024 Erythrocyte distribution width (RBC) [Entitic vol] 46.9 fL High 35.1-43.9 [facility] Erythrocyte distribution wid th ratioOrdered By: tamanna Rainey on 11-30-2024 Erythrocyte distribution width (RBC) [Ratio] 12.4 % 11.6-14.6 [facility] Erythrocyte distribution wid th standard deviationOrdered By: Buzz Rainey on 11-30-2024 Erythrocyte distribution width (RBC) [Ratio] 46.9 fl High 35.1-43.9 [facility] Estimated glomerular filtrat ion rate (GFR) AmericanOrdered By: Buzz Rainey on 11-30-2024 Estimated GFR (MDRD) Amer 62 mL/min >60 [facility] Comment on above: GFR Calc Glomerular filtration rate ( GFR) estimationOrdered By: Buzz Rainey on 11-30-2024 Estimated GFR (MDRD) Non-Af Amer 52 mL/min Low >60 [facility] Comment on above: Non- GFR Calc GFR/1.73 sq M.predicted among non-blacks MDRD (S/P/Bld) [Vol rate/Area] 52 mL/min/{1.73_m2} Low >60 [facility] Comment on above: Non- GFR Calc Glucose measurementOrdered B y: Buzz Rainey on 11-30-2024 Glucose [Mass/Vol] 119 mg/dL High 74-106 [facility] Comment on above: Fasting Glucose resu lt from 100 to 125 mg/dL suggests IMPAIRED HOMEOSTASIS per A.D.A. criteria. Hematocrit Auto (Bld) [Volum e fraction]Ordered By: Buzz Rainey on 11-30-2024 Hematocrit (Bld) [Volume fraction] 40.2 % 40-54 [facility] Hemoglobin measurementOrdere d By: Buzz Rainey on 11-30-2024 Hemoglobin (Bld) [Mass/Vol] 13.2 g/dL 13.0-16.5 [facility] Immature granulocytes/100 WB C Auto (Bld)Ordered By: Buzz Rainey on 11-30-2024 Immature granulocytes/100 WBC (Bld) 0.400 % 0.0-0.9 [facility] Comment on above: IG% - Immature Granu locytes (promyelocytes, myelocytes and metamyelocytes) > 1% indicates that a LEFT SHIFT is Present. Lymphocytes Auto (Unsp spec) [#/Vol]Ordered By: Buzz Rainey on 11-30-2024 Lymphocytes (Bld) [#/Vol] 1.16 10*3/uL 0.83-4.51 [facility] Lymphocytes/100 WBC Auto (Un sp spec)Ordered By: Buzz Rainey on 11-30-2024 Lymphocytes/100 WBC (Bld) 23.3 % 19-41 [facility] MCV (mean corpuscular volume ) determinationOrdered By: Buzz Rainey on 11-30-2024 MCV (RBC) [Entitic vol] 103.1 fL High 80-94 [facility] Mean corpuscular hemoglobin (MCH) determinationOrdered By: yumikonew marketestrella Rainey on 11-30-2024 MCH (RBC) [Entitic mass] 33.8 pg High 27.0-32.0 [facility] Mean corpuscular hemoglobin concentration (MCHC) determinationOrdered By: Buzz Rainey on 11-30-2024 MCHC (RBC) [Mass/Vol] 32.8 g/dL 32-36 [facility] Mean platelet volume determi nationOrdered By: Buzz Rainey on 11-30-2024 Platelet mean volume (Bld) [Entitic vol] 10.2 fL 6.2-12.0 [facility] Monocyte percentageOrdered B y: Buzz Rainey on 11-30-2024 Monocytes/100 WBC (Bld) 11.9 % High 0-10 [facility] Neutrophil percentageOrdered By: Buzz Rainey on 11-30-2024 Neutrophils/100 WBC (Bld) 57.2 % 47-70 [facility] Nucleated red blood cell per centageOrdered By: Buzz Rainey on 11-30-2024 Nucleated RBC/100 WBC (Bld) [Ratio] 0 % 0-5 [facility] Platelet countOrdered By: Alexandra Rainey on 11-30-2024 Platelets (Bld) [#/Vol] 212 10*3/uL 150-450 [facility] Potassium measurementOrdered By: Bzuz Rainey on 11-30-2024 Potassium [Moles/Vol] 4.4 mmol/L 3.5-5.1 [facility] RBC Auto (Bld) [#/Vol]Ordere d By: Buzz Rainey on 11-30-2024 RBC (Bld) [#/Vol] 3.90 10*6/uL Low 4.6-6.2 [facility] Serum anion gap measurementO rdered By: Buzz Rainey on 11-30-2024 Anion gap [Moles/Vol] 6 mmol/L 5-15 [facility] Serum or plasma calcium jesenia urement (mass/volume)Ordered By: Buzz Rainey on 11-30-2024 Calcium [Mass/Vol] 8.8 mg/dL 8.5-10.1 [facility] Serum or plasma creatinine m easurement (mass/volume)Ordered By: Buzz Rainey on 11-30-2024 Creatinine [Mass/Vol] 1.40 mg/dL High 0.70-1.30 [facility] Comment on above: The validity of the calculated GFR & GFRAA in patients over 70 years has not been determined. Clinical correlation is essential. Serum or plasma urea nitroge n measurement (mass/volume)Ordered By: Buzz Rainey on 11-30-2024 Urea nitrogen [Mass/Vol] 30 mg/dL High 7-18 [facility] Sodium levelOrdered By: Otilia Rainey on 11-30-2024 Sodium [Moles/Vol] 139 mmol/L 136-145 [facility] White blood cell (WBC) count Ordered By: Buzz Rainey on 11-30-2024 WBC (Bld) [#/Vol] 5.0 10*3/uL 4.4-11.0 [facility] Absolute neutrophil countOrd ered By: Buzz Rainey on 11-23-2024 Neutrophils (Bld) [#/Vol] 3.4 10*3/uL 2.0-7.7 [facility] Basophil percentageOrdered B y: Buzz Rainey on 11-23-2024 Basophils/100 WBC (Bld) 0.5 % 0-1 [facility] Blood urea nitrogen (BUN)/cr eatinine ratioOrdered By: Buzz Rainey on 11-23-2024 Urea nitrogen/Creatinine [Mass ratio] 19.8 mg/mg 10-20 [facility] Carbon dioxide measurementOr dered By: Buzz Rainey on 11-23-2024 CO2 [Moles/Vol] 28.0 mmol/L 21.0-32.0 [facility] Chloride measurementOrdered By: Buzz Rianey on 11-23-2024 Chloride [Moles/Vol] 104 mmol/L 98-107 [facility] Eosinophil percentageOrdered By: Buzz Rainey on 11-23-2024 Eosinophils/100 WBC (Bld) 6.0 % High 0-5 [facility] Erythrocyte distribution wid th (RBC) [Ratio]Ordered By: Buzz Rainey on 11-23-2024 Erythrocyte distribution width (RBC) [Entitic vol] 43.7 fL 35.1-43.9 [facility] Erythrocyte distribution wid th ratioOrdered By: Buzz Rainey on 11-23-2024 Erythrocyte distribution width (RBC) [Ratio] 11.9 % 11.6-14.6 [facility] Estimated glomerular filtrat ion rate (GFR) AmericanOrdered By: Buzz Rainey on 11-23-2024 Estimated GFR (MDRD) Amer 67 mL/min >60 [facility] Comment on above: GFR Calc Glomerular filtration rate ( GFR) estimationOrdered By: Buzz Rainey on 11-23-2024 Estimated GFR (MDRD) Non-Af Amer 56 mL/min Low >60 [facility] Comment on above: Non- GFR Calc Glucose measurementOrdered B y: Buzz Rainey on 11-23-2024 Glucose [Mass/Vol] 119 mg/dL High 74-106 [facility] Comment on above: Fasting Glucose resu lt from 100 to 125 mg/dL suggests IMPAIRED HOMEOSTASIS per A.D.A. criteria. Hematocrit Auto (Bld) [Volum e fraction]Ordered By: Buzz Rainey on 11-23-2024 Hematocrit (Bld) [Volume fraction] 40.4 % 40-54 [facility] Hemoglobin measurementOrdere d By: Buzz Rainey on 11-23-2024 Hemoglobin (Bld) [Mass/Vol] 13.8 g/dL 13.0-16.5 [facility] Immature granulocytes/100 WB C Auto (Bld)Ordered By: Buzz Rainey on 11-23-2024 Immature granulocytes/100 WBC (Bld) 0.400 % 0.0-0.9 [facility] Comment on above: IG% - Immature Granu locytes (promyelocytes, myelocytes and metamyelocytes) > 1% indicates that a LEFT SHIFT is Present. Lymphocytes Auto (Unsp spec) [#/Vol]Ordered By: Buzz Rainey on 11-23-2024 Lymphocytes (Bld) [#/Vol] 1.22 10*3/uL 0.83-4.51 [facility] Lymphocytes/100 WBC Auto (Un sp spec)Ordered By: Buzz Rainey on 11-23-2024 Lymphocytes/100 WBC (Bld) 21.4 % 19-41 [facility] MCV (mean corpuscular volume ) determinationOrdered By: Buzz Rainey on 11-23-2024 MCV (RBC) [Entitic vol] 99.5 fL High 80-94 [facility] Mean corpuscular hemoglobin (MCH) determinationOrdered By: Buzz Rainey on 11-23-2024 MCH (RBC) [Entitic mass] 34.0 pg High 27.0-32.0 [facility] Mean corpuscular hemoglobin concentration (MCHC) determinationOrdered By: Buzz Rainey on 11-23-2024 MCHC (RBC) [Mass/Vol] 34.2 g/dL 32-36 [facility] Mean platelet volume determi nationOrdered By: Buzz Rainey on 11-23-2024 Platelet mean volume (Bld) [Entitic vol] 10.2 fL 6.2-12.0 [facility] Monocyte percentageOrdered B y: Buzz Rainey on 11-23-2024 Monocytes/100 WBC (Bld) 12.4 % High 0-10 [facility] Neutrophil percentageOrdered By: Buzz Rainey on 11-23-2024 Neutrophils/100 WBC (Bld) 59.3 % 47-70 [facility] Nucleated red blood cell per centageOrdered By: Buzz Rainey on 11-23-2024 Nucleated RBC/100 WBC (Bld) [Ratio] 0 % 0-5 [facility] Platelet countOrdered By: Alexandra Rainey on 11-23-2024 Platelets (Bld) [#/Vol] 219 10*3/uL 150-450 [facility] Potassium measurementOrdered By: Buzz Rainey on 11-23-2024 Potassium [Moles/Vol] 4.7 mmol/L 3.5-5.1 [facility] RBC Auto (Bld) [#/Vol]Ordere d By: Buzz Rainey on 11-23-2024 RBC (Bld) [#/Vol] 4.06 10*6/uL Low 4.6-6.2 [facility] Serum anion gap measurementO rdered By: Buzz Rainey on 11-23-2024 Anion gap [Moles/Vol] 5 mmol/L 5-15 [facility] Serum or plasma calcium jesenia urement (mass/volume)Ordered By: Buzz Rainey on 11-23-2024 Calcium [Mass/Vol] 9.2 mg/dL 8.5-10.1 [facility] Serum or plasma creatinine m easurement (mass/volume)Ordered By: Buzz Rainey on 11-23-2024 Creatinine [Mass/Vol] 1.31 mg/dL High 0.70-1.30 [facility] Comment on above: The validity of the calculated GFR & GFRAA in patients over 70 years has not been determined. Clinical correlation is essential. Serum or plasma urea nitroge n measurement (mass/volume)Ordered By: Buzz Rainey on 11-23-2024 Urea nitrogen [Mass/Vol] 26 mg/dL High 7-18 [facility] Sodium levelOrdered By: Otilia gibson Brainmklana on 11-23-2024 Sodium [Moles/Vol] 136 mmol/L 136-145 [facility] White blood cell (WBC) count Ordered By: Buzz De La Pazmklana on 11-23-2024 WBC (Bld) [#/Vol] 5.7 10*3/uL 4.4-11.0 [facility] Absolute neutrophil countOrd ered By: Buzz De La Pazmklana on 11-16-2024 Neutrophils (Bld) [#/Vol] 3.9 10*3/uL 2.0-7.7 [facility] Basophil percentageOrdered B y: Buzz Rainey on 11-16-2024 Basophils/100 WBC (Bld) 0.7 % 0-1 [facility] Blood urea nitrogen (BUN)/cr eatinine ratioOrdered By: Buzz De La Pazmklana on 11-16-2024 Urea nitrogen/Creatinine [Mass ratio] 18.8 mg/mg 10-20 [facility] Carbon dioxide measurementOr dered By: Buzz Rainey on 11-16-2024 CO2 [Moles/Vol] 25.0 mmol/L 21.0-32.0 [facility] Chloride measurementOrdered By: Buzz Rainey on 11-16-2024 Chloride [Moles/Vol] 105 mmol/L 98-107 [facility] Eosinophil percentageOrdered By: Buzz De La Pazmklana on 11-16-2024 Eosinophils/100 WBC (Bld) 6.1 % High 0-5 [facility] Erythrocyte distribution wid th (RBC) [Ratio]Ordered By: Buzz Rainey on 11-16-2024 Erythrocyte distribution width (RBC) [Entitic vol] 43.8 fL 35.1-43.9 [facility] Erythrocyte distribution wid th ratioOrdered By: tamanna Rainey on 11-16-2024 Erythrocyte distribution width (RBC) [Ratio] 11.9 % 11.6-14.6 [facility] Estimated glomerular filtrat ion rate (GFR) AmericanOrdered By: Buzz Rainey on 11-16-2024 Estimated GFR (MDRD) Amer 56 mL/min Low >60 [facility] Comment on above: GFR Calc Glomerular filtration rate ( GFR) estimationOrdered By: Buzz Rainey on 11-16-2024 Estimated GFR (MDRD) Non-Af Amer 46 mL/min Low >60 [facility] Comment on above: Non- GFR Calc Glucose measurementOrdered B y: Buzz Rainey on 11-16-2024 Glucose [Mass/Vol] 130 mg/dL High 74-106 [facility] Comment on above: Fasting Glucose resu lt greater than or equal to 126 mg/dL suggests DIABETES MELLITUS per A.D.A. criteria. Hematocrit Auto (Bld) [Volum e fraction]Ordered By: Buzz Rainey on 11-16-2024 Hematocrit (Bld) [Volume fraction] 37.6 % Low 40-54 [facility] Hemoglobin measurementOrdere d By: Buzz Rainey on 11-16-2024 Hemoglobin (Bld) [Mass/Vol] 12.7 g/dL Low 13.0-16.5 [facility] Immature granulocytes/100 WB C Auto (Bld)Ordered By: Buzz Rainey on 11-16-2024 Immature granulocytes/100 WBC (Bld) 0.200 % 0.0-0.9 [facility] Comment on above: IG% - Immature Granu locytes (promyelocytes, myelocytes and metamyelocytes) > 1% indicates that a LEFT SHIFT is Present. Lymphocytes Auto (Unsp spec) [#/Vol]Ordered By: Buzz Rainey on 11-16-2024 Lymphocytes (Bld) [#/Vol] 1.20 10*3/uL 0.83-4.51 [facility] Lymphocytes/100 WBC Auto (Un sp spec)Ordered By: Buzz Rainey on 11-16-2024 Lymphocytes/100 WBC (Bld) 19.8 % 19-41 [facility] MCV (mean corpuscular volume ) determinationOrdered By: Buzz Rainey on 11-16-2024 MCV (RBC) [Entitic vol] 100.5 fL High 80-94 [facility] Mean corpuscular hemoglobin (MCH) determinationOrdered By: Buzz Rainey on 11-16-2024 MCH (RBC) [Entitic mass] 34.0 pg High 27.0-32.0 [facility] Mean corpuscular hemoglobin concentration (MCHC) determinationOrdered By: Buzz Rainey on 11-16-2024 MCHC (RBC) [Mass/Vol] 33.8 g/dL 32-36 [facility] Mean platelet volume determi nationOrdered By: Buzz Rainey on 11-16-2024 Platelet mean volume (Bld) [Entitic vol] 10.0 fL 6.2-12.0 [facility] Monocyte percentageOrdered B y: Buzz Rainey on 11-16-2024 Monocytes/100 WBC (Bld) 9.1 % 0-10 [facility] Neutrophil percentageOrdered By: Buzz Rainey on 11-16-2024 Neutrophils/100 WBC (Bld) 64.1 % 47-70 [facility] Nucleated red blood cell per centageOrdered By: Buzz Rainey on 11-16-2024 Nucleated RBC/100 WBC (Bld) [Ratio] 0 % 0-5 [facility] Platelet countOrdered By: Alexandra yumikoarthur Rainey on 11-16-2024 Platelets (Bld) [#/Vol] 210 10*3/uL 150-450 [facility] Potassium measurementOrdered By: Buzz Rainey on 11-16-2024 Potassium [Moles/Vol] 4.9 mmol/L 3.5-5.1 [facility] Comment on above: Slight Hemolysis, Re sult may be falsely increased. RBC Auto (Bld) [#/Vol]Ordere d By: Buzz Rainey on 11-16-2024 RBC (Bld) [#/Vol] 3.74 10*6/uL Low 4.6-6.2 [facility] Serum anion gap measurementO rdered By: Buzz Rainey on 11-16-2024 Anion gap [Moles/Vol] 5 mmol/L 5-15 [facility] Serum or plasma calcium jesenia urement (mass/volume)Ordered By: Buzz Rainey on 11-16-2024 Calcium [Mass/Vol] 9.0 mg/dL 8.5-10.1 [facility] Serum or plasma creatinine m easurement (mass/volume)Ordered By: Buzz Rainey on 11-16-2024 Creatinine [Mass/Vol] 1.54 mg/dL High 0.70-1.30 [facility] Comment on above: The validity of the calculated GFR & GFRAA in patients over 70 years has not been determined. Clinical correlation is essential. Serum or plasma urea nitroge n measurement (mass/volume)Ordered By: Buzz Rainey on 11-16-2024 Urea nitrogen [Mass/Vol] 29 mg/dL High 7-18 [facility] Sodium levelOrdered By: Otilia Rainey on 11-16-2024 Sodium [Moles/Vol] 135 mmol/L Low 136-145 [facility] White blood cell (WBC) count Ordered By: Buzz Rainey on 11-16-2024 WBC (Bld) [#/Vol] 6.1 10*3/uL 4.4-11.0 [facility] Absolute neutrophil countOrd ered By: Buzz Rainey on 11-09-2024 Neutrophils (Bld) [#/Vol] 3.1 10*3/uL 2.0-7.7 [facility] Basophil percentageOrdered B y: Buzz Rainey on 11-09-2024 Basophils/100 WBC (Bld) 0.8 % 0-1 [facility] Blood urea nitrogen (BUN)/cr eatinine ratioOrdered By: Buzz Rainey on 11-09-2024 Urea nitrogen/Creatinine [Mass ratio] 21.8 mg/mg High 10-20 [facility] Carbon dioxide measurementOr dered By: Buzz Rainey on 11-09-2024 CO2 [Moles/Vol] 27.0 mmol/L 21.0-32.0 [facility] Chloride measurementOrdered By: Buzz Rainey on 11-09-2024 Chloride [Moles/Vol] 105 mmol/L 98-107 [facility] Eosinophil percentageOrdered By: Buzz Brainmklana on 11-09-2024 Eosinophils/100 WBC (Bld) 9.1 % High 0-5 [facility] Erythrocyte distribution wid th (RBC) [Ratio]Ordered By: yumikonew marketestrella De La Pazmklana on 11-09-2024 Erythrocyte distribution width (RBC) [Entitic vol] 43.2 fL 35.1-43.9 [facility] Erythrocyte distribution wid th ratioOrdered By: [facility] Centerestrella [facility] La Pazmklana on 11-09-2024 Erythrocyte distribution width (RBC) [Ratio] 11.8 % 11.6-14.6 [facility] Estimated glomerular filtrat ion rate (GFR) AmericanOrdered By: Alexandratamanna Rainey on 11-09-2024 Estimated GFR (MDRD) Amer 72 mL/min >60 [facility] Comment on above: GFR Calc Glomerular filtration rate ( GFR) estimationOrdered By: Buzz Rainey on 11-09-2024 Estimated GFR (MDRD) Non-Af Amer 59 mL/min Low >60 [facility] Comment on above: Non- GFR Calc Glucose measurementOrdered B y: Alexandrayumikohueyestrella De La Pazmklana on 11-09-2024 Glucose [Mass/Vol] 145 mg/dL High 74-106 [facility] Comment on above: Fasting Glucose resu lt greater than or equal to 126 mg/dL suggests DIABETES MELLITUS per A.D.A. criteria. Hematocrit Auto (Bld) [Volum e fraction]Ordered By: Buzz Rainey on 11-09-2024 Hematocrit (Bld) [Volume fraction] 38.3 % Low 40-54 [facility] Hemoglobin measurementOrdere d By: Alexandrayumikohueyestrella De La Pazmklana on 11-09-2024 Hemoglobin (Bld) [Mass/Vol] 12.9 g/dL Low 13.0-16.5 [facility] Immature granulocytes/100 WB C Auto (Bld)Ordered By: Buzz Rainey on 11-09-2024 Immature granulocytes/100 WBC (Bld) 0.400 % 0.0-0.9 [facility] Comment on above: IG% - Immature Granu locytes (promyelocytes, myelocytes and metamyelocytes) > 1% indicates that a LEFT SHIFT is Present. Lymphocytes Auto (Unsp spec) [#/Vol]Ordered By: Buzz Rainey on 11-09-2024 Lymphocytes (Bld) [#/Vol] 1.10 10*3/uL 0.83-4.51 [facility] Lymphocytes/100 WBC Auto (Un sp spec)Ordered By: Buzz Rainey on 11-09-2024 Lymphocytes/100 WBC (Bld) 21.3 % 19-41 [facility] MCV (mean corpuscular volume ) determinationOrdered By: Buzz Rainey on 11-09-2024 MCV (RBC) [Entitic vol] 100.3 fL High 80-94 [facility] Mean corpuscular hemoglobin (MCH) determinationOrdered By: Buzz Rainey on 11-09-2024 MCH (RBC) [Entitic mass] 33.8 pg High 27.0-32.0 [facility] Mean corpuscular hemoglobin concentration (MCHC) determinationOrdered By: tamanna Rainey on 11-09-2024 MCHC (RBC) [Mass/Vol] 33.7 g/dL 32-36 [facility] Mean platelet volume determi nationOrdered By: Buzz Rainey on 11-09-2024 Platelet mean volume (Bld) [Entitic vol] 10.0 fL 6.2-12.0 [facility] Monocyte percentageOrdered B y: Buzz Rainey on 11-09-2024 Monocytes/100 WBC (Bld) 9.1 % 0-10 [facility] Neutrophil percentageOrdered By: tamanna Rainey on 11-09-2024 Neutrophils/100 WBC (Bld) 59.3 % 47-70 [facility] Nucleated red blood cell per centageOrdered By: Buzz Rainey on 11-09-2024 Nucleated RBC/100 WBC (Bld) [Ratio] 0 % 0-5 [facility] Platelet countOrdered By: Alexandra Rainey on 11-09-2024 Platelets (Bld) [#/Vol] 225 10*3/uL 150-450 [facility] Potassium measurementOrdered By: Buzz Rainey on 11-09-2024 Potassium [Moles/Vol] 4.5 mmol/L 3.5-5.1 [facility] RBC Auto (Bld) [#/Vol]Ordere d By: Buzz Rainey on 11-09-2024 RBC (Bld) [#/Vol] 3.82 10*6/uL Low 4.6-6.2 [facility] Serum anion gap measurementO rdered By: Buzz Rainey on 11-09-2024 Anion gap [Moles/Vol] 4 mmol/L Low 5-15 [facility] Serum or plasma calcium jesenia urement (mass/volume)Ordered By: Buzz Rainey on 11-09-2024 Calcium [Mass/Vol] 8.8 mg/dL 8.5-10.1 [facility] Serum or plasma creatinine m easurement (mass/volume)Ordered By: Buzz Rainey on 11-09-2024 Creatinine [Mass/Vol] 1.24 mg/dL 0.70-1.30 [facility] Comment on above: The validity of the calculated GFR & GFRAA in patients over 70 years has not been determined. Clinical correlation is essential. Serum or plasma urea nitroge n measurement (mass/volume)Ordered By: Buzz Rainey on 11-09-2024 Urea nitrogen [Mass/Vol] 27 mg/dL High 7-18 [facility] Sodium levelOrdered By: Otilia Rainey on 11-09-2024 Sodium [Moles/Vol] 136 mmol/L 136-145 [facility] White blood cell (WBC) count Ordered By: Buzz Rainey on 11-09-2024 WBC (Bld) [#/Vol] 5.2 10*3/uL 4.4-11.0 [facility] 86-GN-Oyfwcmn DOrdered By: Lana Rainey on 11-03-2024 Vitamin D 25-Hydroxy 37.4 ng/mL [facility] Comment on above: Vitamin D 25(OH) Sta tus Range Deficiency <20 ng/mL (50nmol/L) Insufficiency 20 - 30 ng/mL (50 - 75 nmol/L) Sufficiency 30 - 100 ng/mL (75 - 250 nmol/L) Toxicity >100 ng/mL (>250 nmol/L) Absolute neutrophil countOrd ered By: Buzz Rainey on 11-03-2024 Neutrophils (Bld) [#/Vol] 3.2 10*3/uL 2.0-7.7 [facility] Albumin to globulin ratioOrd ered By: Buzz Rainey on 11-03-2024 Albumin/Globulin [Mass ratio] 1.0 {ratio} 0.9-2.4 [facility] Basophil percentageOrdered B y: Buzz Rainey on 11-03-2024 Basophils/100 WBC (Bld) 0.4 % 0-1 [facility] Bilirubin, totalOrdered By: Buzz Rainey on 11-03-2024 Bilirubin [Mass/Vol] 0.80 mg/dL 0.20-1.00 [facility] Comment on above: For patients on eltr ombopag therapy, use of Dimension [place] TBIL is not recommended. Blood urea nitrogen (BUN)/cr eatinine ratioOrdered By: Buzz Rainey on 11-03-2024 Urea nitrogen/Creatinine [Mass ratio] 24.5 mg/mg High 10-20 [facility] Carbon dioxide measurementOr dered By: Buzz Rainey on 11-03-2024 CO2 [Moles/Vol] 23.0 mmol/L 21.0-32.0 [facility] Chloride measurementOrdered By: Buzz Rainey on 11-03-2024 Chloride [Moles/Vol] 105 mmol/L 98-107 [facility] Eosinophil percentageOrdered By: Buzz Rainey on 11-03-2024 Eosinophils/100 WBC (Bld) 8.6 % High 0-5 [facility] Erythrocyte distribution wid th (RBC) [Ratio]Ordered By: Buzz Rainey on 11-03-2024 Erythrocyte distribution width (RBC) [Entitic vol] 44.9 fL High 35.1-43.9 [facility] Erythrocyte distribution wid th ratioOrdered By: Buzz Rainey on 11-03-2024 Erythrocyte distribution width (RBC) [Ratio] 12.0 % 11.6-14.6 [facility] Estimated glomerular filtrat ion rate (GFR) AmericanOrdered By: Buzz Rainey on 11-03-2024 Estimated GFR (MDRD) Amer 61 mL/min >60 [facility] Comment on above: GFR Calc Glomerular filtration rate ( GFR) estimationOrdered By: Buzz Rainey on 11-03-2024 Estimated GFR (MDRD) Non-Af Amer 50 mL/min Low >60 [facility] Comment on above: Non- GFR Calc Glucose measurementOrdered B y: Buzz Rainey on 11-03-2024 Glucose [Mass/Vol] 146 mg/dL High 74-106 [facility] Comment on above: Fasting Glucose resu lt greater than or equal to 126 mg/dL suggests DIABETES MELLITUS per A.D.A. criteria. Hematocrit Auto (Bld) [Volum e fraction]Ordered By: Buzz Rainey on 11-03-2024 Hematocrit (Bld) [Volume fraction] 43.0 % 40-54 [facility] Hemoglobin A1c percentageOrd ered By: Buzz Rainey on 11-03-2024 HbA1c (Bld) [Mass fraction] 6.6 % High 3.8-5.6 [facility] Comment on above: Normal < 5.7 % Predi abetic 5.7 - 6.4 % Diabetic >or= 6.5 % Please note range changes. Hemoglobin measurementOrdere d By: Buzz Rainey on 11-03-2024 Hemoglobin (Bld) [Mass/Vol] 14.7 g/dL 13.0-16.5 [facility] High density lipoprotein (HD L) measurementOrdered By: Buzz Rainey 11-03-2024 Cholesterol in HDL [Mass/Vol] 57 mg/dL >40 [facility] Comment on above: The drugs N-Acetylcy steine and Metamizole may falsely depress this assay. Reference Range HDL <40 mg/dL Low HDL Cholesterol HDL >or= 60 mg/dL High HDL Cholesterol Immature granulocytes/100 WB C Auto (Bld)Ordered By: Buzz Rainey on 11-03-2024 Immature granulocytes/100 WBC (Bld) 0.200 % 0.0-0.9 [facility] Comment on above: IG% - Immature Granu locytes (promyelocytes, myelocytes and metamyelocytes) > 1% indicates that a LEFT SHIFT is Present. Laboratory - Chemistry and C hemistry - challengeOrdered By: Buzz Rainey on 11-03-2024 AST [Catalytic activity/Vol] 41 U/L High 15-37 [facility] Low density lipoprotein (LDL ) cholesterol measurementOrdered By: Buzz Rainey on 11-03-2024 Cholesterol in LDL [Mass/Vol] 97 mg/dL 0-130 [facility] Lymphocytes Auto (Unsp spec) [#/Vol]Ordered By: Buzz Rainey on 11-03-2024 Lymphocytes (Bld) [#/Vol] 0.87 10*3/uL 0.83-4.51 [facility] Lymphocytes/100 WBC Auto (Un sp spec)Ordered By: Buzz Rainey on 11-03-2024 Lymphocytes/100 WBC (Bld) 17.4 % Low 19-41 [facility] MCV (mean corpuscular volume ) determinationOrdered By: Buzz Rainey on 11-03-2024 MCV (RBC) [Entitic vol] 101.2 fL High 80-94 [facility] Magnesium measurementOrdered By: Buzz Rainey on 11-03-2024 Magnesium [Mass/Vol] 2.2 mg/dL 1.6-2.6 [facility] Mean corpuscular hemoglobin (MCH) determinationOrdered By: Buzz Rainey on 11-03-2024 MCH (RBC) [Entitic mass] 34.6 pg High 27.0-32.0 [facility] Mean corpuscular hemoglobin concentration (MCHC) determinationOrdered By: Buzz Rainey on 11-03-2024 MCHC (RBC) [Mass/Vol] 34.2 g/dL 32-36 [facility] Mean platelet volume determi nationOrdered By: Buzz Rainey on 11-03-2024 Platelet mean volume (Bld) [Entitic vol] 9.9 fL 6.2-12.0 [facility] Monocyte percentageOrdered B y: Buzz Rainey on 11-03-2024 Monocytes/100 WBC (Bld) 10.4 % High 0-10 [facility] Neutrophil percentageOrdered By: Buzz Rainey on 11-03-2024 Neutrophils/100 WBC (Bld) 63.0 % 47-70 [facility] Nucleated red blood cell per centageOrdered By: Buzz Rainey on 11-03-2024 Nucleated RBC/100 WBC (Bld) [Ratio] 0 % 0-5 [facility] Platelet countOrdered By: Alexandra Rainey on 11-03-2024 Platelets (Bld) [#/Vol] 190 10*3/uL 150-450 [facility] Potassium measurementOrdered By: Buzz Rainey on 11-03-2024 Potassium [Moles/Vol] 5.0 mmol/L 3.5-5.1 [facility] RBC Auto (Bld) [#/Vol]Ordere d By: Buzz Rainey on 11-03-2024 RBC (Bld) [#/Vol] 4.25 10*6/uL Low 4.6-6.2 [facility] Serum anion gap measurementO rdered By: Buzz Rainey on 11-03-2024 Anion gap [Moles/Vol] 8 mmol/L 5-15 [facility] Serum globulin measurementOr dered By: Buzz Rainey on 11-03-2024 Globulin (S) [Mass/Vol] 3.8 g/dL 2.2-4.2 [facility] Serum or plasma alanine nix otransferase (ALT) measurementOrdered By: Buzz Rainey on 11-03-2024 ALT [Catalytic activity/Vol] 20 U/L 16-61 [facility] Serum or plasma albumin jesenia urement (mass/volume)Ordered By: Buzz Rainey on 11-03-2024 Albumin [Mass/Vol] 3.7 g/dL 3.2-5.0 [facility] Serum or plasma alkaline radha sphatase measurementOrdered By: Buzz Rainey on 11-03-2024 ALP [Catalytic activity/Vol] 77 U/L 45-117 [facility] Serum or plasma calcium jesenia urement (mass/volume)Ordered By: Buzz Rainey on 11-03-2024 Calcium [Mass/Vol] 9.3 mg/dL 8.5-10.1 [facility] Serum or plasma cholesterol measurement (mass/volume)Ordered By: Buzz Rainey on 11-03-2024 Cholesterol [Mass/Vol] 175 mg/dL <200 [facility] Comment on above: <200 mg/dL Desirable 200-240 mg/dL Borderline >240 mg/dL High Risk Serum or plasma creatinine m easurement (mass/volume)Ordered By: Buzz Rainey on 11-03-2024 Creatinine [Mass/Vol] 1.43 mg/dL High 0.70-1.30 [facility] Comment on above: The validity of the calculated GFR & GFRAA in patients over 70 years has not been determined. Clinical correlation is essential. Serum or plasma urea nitroge n measurement (mass/volume)Ordered By: Buzz Rainey on 11-03-2024 Urea nitrogen [Mass/Vol] 35 mg/dL High 7-18 [facility] Sodium levelOrdered By: Otilia Rainey on 11-03-2024 Sodium [Moles/Vol] 136 mmol/L 136-145 [facility] Total proteinOrdered By: Franklin Rainey on 11-03-2024 Protein [Mass/Vol] 7.5 g/dL 6.4-8.2 [facility] Triglycerides measurementOrd ered By: Buzz Rainey on 11-03-2024 Triglyceride [Mass/Vol] 105 mg/dL <199 [facility] Comment on above: The drugs N-Acetylcy steine and Metamizole may falsely depress this assay.Serum Triglycerides Reference Interval Normal <150 mg/dL Borderline high 150 - 199 mg/dL High 200 - 499 mg/dL Very High > or = 500 mg/dL Very low density lipoprotein (VLDL) cholesterol measurementOrdered By: Buzz Rainey 11-03-2024 VLDL Cholesterol 21 mg/dL 5-40 [facility] White blood cell (WBC) count Ordered By: Buzz Rainey on 11-03-2024 WBC (Bld) [#/Vol] 5.0 10*3/uL 4.4-11.0 [facility] Bedside Glucoseon 11-01-2024 FINGERSTICK GLU 163 mg/dL High 74-106 [facility] Comment on above: Result Comment: ARNOLD GEMENT OF PATIENT CARE PER NURSING PROTOCOL Performed By: #### L 501.080 ####[facility] [address] [facility] [address] FINGERSTICK GLU 212 mg/dL High [address] [place] [address] Comment on above: Result Comment: ARNOLD GEMENT OF PATIENT CARE PER NURSING PROTOCOL Performed By: #### L 501.080 #### [facility] [address] [facility] [address] FINGERSTICK GLU 125 mg/dL [address] Comment on above: Result Comment: ARNOLD GEMENT OF PATIENT CARE PER NURSING PROTOCOL Performed By: #### L 501.080 #### [facility] [address] [place], [address] Glucose measurement at [facility] deOrdered By: Sung Rhodes on 11-01-2024 Bedside Glucose (Misc Panel) 163 mg/dL High [facility]106 [facility] Comment on above: MANAGEMENT OF PATIEN T CARE PER NURSING PROTOCOL Bedside Glucoseon 10-31-2024 FINGERSTICK GLU 125 mg/dL High [facility]106 [facility] Comment on above: Result Comment: ARNOLD GEMENT OF PATIENT CARE PER NURSING PROTOCOL Performed By: #### L 501.080 #### [facility] [address] [facility] [address] FINGERSTICK GLU 136 mg/dL [address] Comment on above: Result Comment: ARNOLD GEMENT OF PATIENT CARE PER NURSING PROTOCOL Performed By: #### L 501.080 #### [facility] [address] [place], [address] FINGERSTICK GLU 207 mg/dL High 74-106 [facility] Comment on above: Result Comment: ARNOLD GEMENT OF PATIENT CARE PER NURSING PROTOCOL Performed By: #### L 501.080 ####[facility] [address] [place], [address] FINGERSTICK GLU 297 mg/dL High [facility]106 [facility] Comment on above: Result Comment: ARNOLD GEMENT OF PATIENT CARE PER NURSING PROTOCOL Performed By: #### L 501.080 ####[facility] [address] [place], [address] Bedside Glucoseon 10-30-2024 FINGERSTICK GLU 216 mg/dL High [address] [place] [address] Comment on above: Result Comment: ARNOLD GEMENT OF PATIENT CARE PER NURSING PROTOCOL Performed By: #### L 501.080 #### [facility] [address] [place], [address] FINGERSTICK GLU 256 mg/dL High [address] [place] [address] Comment on above: Result Comment: ARNOLD GEMENT OF PATIENT CARE PER NURSING PROTOCOL Performed By: #### L 501.080 ####[facility] [address] [place], [address] FINGERSTICK GLU 197 mg/dL High -[address] [place] [address] Comment on above: Result Comment: ARNOLD GEMENT OF PATIENT CARE PER NURSING PROTOCOL Performed By: #### L 501.080 ####[facility] [address] [place], [address] FINGERSTICK GLU 177 mg/dL High [address] [place] [address] Comment on above: Result Comment: ARNOLD GEMENT OF PATIENT CARE PER NURSING PROTOCOL Performed By: #### L 501.080 #### [facility] [address] [place], [address] FINGERSTICK GLU 188 mg/dL High [address] [place] [address] Comment on above: Result Comment: ARNOLD GEMENT OF PATIENT CARE PER NURSING PROTOCOL Performed By: #### L 501.080 #### [facility] [address] [place], [address] Absolute neutrophil countOrd ered By: Roderick Mehran on 10-29-2024 Neutrophils (Bld) [#/Vol] 3.8 10*3/uL 2.0-7.7 [facility] Albumin to globulin ratioOrd ered By: Roderick Laurent on 10-29-2024 Albumin/Globulin [Mass ratio] 1.2 {ratio} 0.9-2.4 [facility] Basophil percentageOrdered B y: Roderick Mehran on 10-29-2024 Basophils/100 WBC (Bld) 0.7 % 0-1 [facility] Bedside Glucoseon 10-29-2024 FINGERSTICK GLU 255 mg/dL High [address] [place] [address] Comment on above: Result Comment: ARNOLD GEMENT OF PATIENT CARE PER NURSING PROTOCOL Performed By: #### L 501.080 #### [facility] [address] [place], [address] FINGERSTICK GLU 214 mg/dL [address] Comment on above: Result Comment: ARNOLD GEMENT OF PATIENT CARE PER NURSING PROTOCOL Performed By: #### L 501.080 #### [facility] [address] [place], [address] FINGERSTICK GLU 189 mg/dL [address] Comment on above: Result Comment: ARNOLD GEMENT OF PATIENT CARE PER NURSING PROTOCOL Performed By: #### L 501.080 ####[facility] [address] [place], [address] FINGERSTICK GLU 161 mg/dL [address] Comment on above: Result Comment: ARNOLD GEMENT OF PATIENT CARE PER NURSING PROTOCOL Performed By: #### L 501.080 #### [facility] [address] [place], [address] FINGERSTICK GLU 198 mg/dL High 74-106 [facility] Comment on above: Result Comment: ARNOLD GEMENT OF PATIENT CARE PER NURSING PROTOCOL Performed By: #### L 501.080 #### [facility] [address] [place], [address] FINGERSTICK GLU 328 mg/dL High 74-106 [facility] Comment on above: Result Comment: ARNOLD GEMENT OF PATIENT CARE PER NURSING PROTOCOL Performed By: #### L 501.080 #### [facility] [address] [place], [address] Bilirubin, totalOrdered By: Roderick Laurent on 10-29-2024 Bilirubin [Mass/Vol] 0.60 mg/dL 0.20-1.00 [facility] Comment on above: For patients on eltr ombopag therapy, use of Dimension [place] TBIL is not recommended. Blood urea nitrogen (BUN)/cr eatinine ratioOrdered By: Roderick Laurent on 10-29-2024 Urea nitrogen/Creatinine [Mass ratio] 23.6 mg/mg High 10-20 [facility] CBC W/Diff, Automatedon 12-0 Absolute Lymph 0.93 X10 3/uL Normal 0.83-4.51 [facility] Comment on above: Performed By: #### L [id number], L100.0100 ####[facility] [address] [place], [address] Absolute Neut 3.8 X10 3/uL Normal 2.0-7.7 [facility] Comment on above: Performed By: #### L [id number], L100.0100 ####[facility] [address] [place], [address] Basophils/100 WBC (Bld) 0.7 % Normal 0-1 [facility] Comment on above: Performed By: #### L [id number], L100.0100 ####[facility] [address] [place], [address] Eosinophils/100 WBC (Bld) 3.5 % Normal 0-5 [facility] Comment on above: Performed By: #### L [id number], L100.0100 ####[facility] [address] [place], [address] Erythrocyte distribution width (RBC) [Ratio] 11.9 % Normal 11.6-14.6 [facility] Comment on above: Performed By: #### L [id number], L100.0100 ####[facility] [address] [place], [address] Hematocrit (Bld) [Volume fraction] 40.5 % Normal 40-54 [facility] Comment on above: Performed By: #### L [id number], L100.0100 ####[facility] [address] [place], [address] Hemoglobin (Bld) [Mass/Vol] 13.6 g/dL Normal 13.0-16.5 [facility] Comment on above: Performed By: #### L 500.4050, L100.0100 ####[facility] [address] [place], [address] IG% 0.200 Normal 0.0-0.9 [facility] Comment on above: Result Comment: IG% - Immature Granulocytes (promyelocytes, myelocytes and metamyelocytes) > 1% indicates that a LEFT SHIFT is Present. Performed By: #### L [id number], L100.0100 ####[facility] [address] [place], [address] Lymphocytes/100 WBC (Bld) 16.2 % Low 19-41 [facility] Comment on above: Performed By: #### L [id number], L100.0100 ####[facility] [address] [place], [address] MCH (RBC) [Entitic mass] 33.8 pg High 27.0-32.0 [facility] Comment on above: Performed By: #### L [id number], L100.0100 ####[facility] [address] [place], [address] MCHC (RBC) [Mass/Vol] 33.6 g/dL Normal 32-36 [facility] Comment on above: Performed By: #### L [id number], L100.0100 ####[facility] [address] [place], [address] MCV (RBC) [Entitic vol] 100.7 fL High 80-94 [facility] Comment on above: Performed By: #### L 500.4050, L100.0100 ####[facility] [address] [place], [address] Monocytes/100 WBC (Bld) 12.5 % High 0-10 [facility] Comment on above: Performed By: #### L [id number], L100.0100 ####[facility] [address] [place], [address] Neutrophils/100 WBC (Bld) 66.9 % Normal 47-70 [facility] Comment on above: Performed By: #### L [id number], L100.0100 ####[facility] [address] [place], [address] Nucleated RBC (Bld) [#/Vol] 0 10*3/uL Normal 0-5 [facility] Comment on above: Performed By: #### L [id number], L100.0100 ####[facility] [address] [place], [address] Platelet mean volume (Bld) [Entitic vol] 9.2 fL Normal 6.2-12.0 [facility] Comment on above: Performed By: #### L [id number], L100.0100 ####[facility] [address] [place], [address] Platelets (Bld) [#/Vol] 230 10*3/uL Normal 150-450 [facility] Comment on above: Performed By: #### L [id number], L100.0100 ####[facility] [address] [place], [address] RBC (Bld) [#/Vol] 4.02 10*6/uL Low 4.6-6.2 [facility] Comment on above: Performed By: #### L [id number], L100.0100 ####[facility] [address] [place], [address] RDW SD 44.6 fl High 35.1-43.9 [facility] Comment on above: Performed By: #### L [id number], L100.0100 ####[facility] [address] [place], [address] WBC (Bld) [#/Vol] 5.7 10*3/uL Normal 4.4-11.0 [facility] Comment on above: Performed By: #### L [id number], L100.0100 ####[facility] [address] [place], [address] Carbon dioxide measurementOr dered By: Roderick Laurent on 10-29-2024 CO2 [Moles/Vol] 26.0 mmol/L 21.0-32.0 [facility] Chloride measurementOrdered By: Roderick Laurent on 10-29-2024 Chloride [Moles/Vol] 105 mmol/L 98-107 [facility] Comprehensive Metabolic Prof ilon 10-29-2024 Albumin [Mass/Vol] 3.5 g/dL Normal 3.2-5.0 [facility] Comment on above: Performed By: #### L 501.080 #### [facility] [address] [place], [address] Albumin/Globulin [Mass ratio] 1.2 {ratio} Normal 0.9-2.4 [facility] Comment on above: Performed By: #### L 501.080 #### [facility] [address] [place], [address] ALK P 64 U/L Normal 45-117 [facility] Comment on above: Performed By: #### L 501.080 #### [facility] [address] [place], [address] ALT [Catalytic activity/Vol] 15 U/L Low 16-61 [facility] Comment on above: Performed By: #### L 501.080 #### [facility] [address] [place], [address] AST [Catalytic activity/Vol] 22 U/L Normal 15-37 [facility] Comment on above: Performed By: #### L 501.080 #### [facility] Laboratory [address] [place], [address] Bilirubin [Mass/Vol] 0.60 mg/dL Normal 0.20-1.00 [facility] Comment on above: Result Comment: For patients on eltrombopag therapy, use of Dimension [place] TBIL is not recommended. Performed By: #### L 501.080 #### [facility] [address] [place], [address] BUN/CRE 23.6 RATIO High 10-20 [facility] Comment on above: Performed By: #### L 501.080 #### [facility] [address] [place], [address] CA,Total 8.9 mg/dL Normal 8.5-10.1 [facility] Comment on above: Performed By: #### L 501.080 #### [facility] [address] [place], [address] Chloride [Moles/Vol] 105 mmol/L Normal 98-107 [facility] Comment on above: Performed By: #### L 501.080 #### [facility] [address] [place], [address] CO2 [Moles/Vol] 26.0 mmol/L Normal 21.0-32.0 [facility] Comment on above: Performed By: #### L 501.080 #### [facility] [address] [place], [address] Creatinine [Mass/Vol] 1.57 mg/dL High 0.70-1.30 [facility] Comment on above: Result Comment: The validity of the calculated GFR GFRAA in patients over 70 years has not been determined. Clinical correlation is essential. Performed By: #### L 501.080 #### [facility] [address] [place], [address] ECRCL 38.64 ml/min Normal [facility] Comment on above: Performed By: #### L 501.080 #### [facility] [address] [place], [address] EST GFR - AA 55 mL/min Low >60 [facility] Comment on above: Result Comment: Afri can Bhutanese GFR Calc Performed By: #### L 501.080 #### [facility] [address] [place], [address] GAP 7 Normal 5-15 [facility] Comment on above: Performed By: #### L 501.080 #### [facility] [address] [place], [address] GFR/1.73 sq M.predicted among non-blacks MDRD (S/P/Bld) [Vol rate/Area] 45 mL/min/{1.73_m2} Low >60 [facility] Comment on above: Result Comment: Non- GFR Calc Performed By: #### L 501.080 #### [facility] [address] [place], [address] Globulin (S) [Mass/Vol] 2.9 g/dL Normal 2.2-4.2 [facility] Comment on above: Performed By: #### L 501.080 #### [facility] [address] [place], [address] Glucose [Mass/Vol] 212 mg/dL High 74-106 [facility] Comment on above: Result Comment: Gluc ose result greater than or equal to 200 mg/dL suggests DIABETES MELLITUS per A.D.A. criteria. Performed By: #### L 501.080 #### [facility] [address] [place], [address] Potassium [Moles/Vol] 4.4 mmol/L Normal 3.5-5.1 [facility] Comment on above: Performed By: #### L 501.080 #### [facility] [address] [place], [address] Sodium [Moles/Vol] 138 mmol/L Normal 136-145 [facility] Comment on above: Performed By: #### L 501.080 #### [facility] [address] [place], [address] T PROT 6.4 g/dL Normal 6.4-8.2 [facility] Comment on above: Performed By: #### L 501.080 #### [facility] [address] [place], [address] Urea nitrogen [Mass/Vol] 37 mg/dL High 7-18 [facility] Comment on above: Performed By: #### L 501.080 #### [facility] [address] [place], [address] Eosinophil percentageOrdered By: Roderick Laurent on 10-29-2024 Eosinophils/100 WBC (Bld) 3.5 % 0-5 [facility] Erythrocyte distribution wid th (RBC) [Ratio]Ordered By: Roderick Laurent on 10-29-2024 Erythrocyte distribution width (RBC) [Entitic vol] 44.6 fL High 35.1-43.9 [facility] Erythrocyte distribution wid th ratioOrdered By: Roderick Laurent on 10-29-2024 Erythrocyte distribution width (RBC) [Ratio] 11.9 % 11.6-14.6 [facility] Estimated glomerular filtrat ion rate (GFR) AmericanOrdered By: Roderick Laurent on 10-29-2024 Estimated GFR (MDRD) Amer 55 mL/min Low >60 [facility] Comment on above: GFR Calc Estimation of creatinine chapito aranceOrdered By: Roderick Laurent on 10-29-2024 Estimated Creatinine Clearance Calc 38.64 ml/min [facility] Glomerular filtration rate ( GFR) estimationOrdered By: Roderick Laurent on 10-29-2024 Estimated GFR (MDRD) Non-Af Amer 45 mL/min Low >60 [facility] Comment on above: Non- GFR Calc Glucose measurementOrdered B y: Roderick Laurent on 10-29-2024 Glucose [Mass/Vol] 212 mg/dL High 74-106 [facility] Comment on above: Glucose result great er than or equal to 200 mg/dLsuggests DIABETES MELLITUS per A.D.A. criteria. Hematocrit Auto (Bld) [Volum e fraction]Ordered By: Roderick Laurent on 10-29-2024 Hematocrit (Bld) [Volume fraction] 40.5 % 40-54 [facility] Hemoglobin measurementOrdere d By: Roderick Laurent on 10-29-2024 Hemoglobin (Bld) [Mass/Vol] 13.6 g/dL 13.0-16.5 [facility] Immature granulocytes/100 WB C Auto (Bld)Ordered By: Roderick Laurent on 10-29-2024 Immature granulocytes/100 WBC (Bld) 0.200 % 0.0-0.9 [facility] Comment on above: IG% - Immature Granu locytes (promyelocytes, myelocytes and metamyelocytes) > 1% indicates that a LEFT SHIFT is Present. Laboratory - Chemistry and C hemistry - challengeOrdered By: Roderick Laurent on 10-29-2024 AST [Catalytic activity/Vol] 22 U/L 15-37 [facility] Lymphocytes Auto (Unsp spec) [#/Vol]Ordered By: Roderick Laurent on 10-29-2024 Lymphocytes (Bld) [#/Vol] 0.93 10*3/uL 0.83-4.51 [facility] Lymphocytes/100 WBC Auto (Un sp spec)Ordered By: Roderick Laurent on 10-29-2024 Lymphocytes/100 WBC (Bld) 16.2 % Low 19-41 [facility] MCV (mean corpuscular volume ) determinationOrdered By: Roderick Laurent on 10-29-2024 MCV (RBC) [Entitic vol] 100.7 fL High 80-94 [facility] Mean corpuscular hemoglobin (MCH) determinationOrdered By: Roderick Laurent on 10-29-2024 MCH (RBC) [Entitic mass] 33.8 pg High 27.0-32.0 [facility] Mean corpuscular hemoglobin concentration (MCHC) determinationOrdered By: Roderick Laurent on 10-29-2024 MCHC (RBC) [Mass/Vol] 33.6 g/dL 32-36 [facility] Mean platelet volume determi nationOrdered By: Roderick Laurent on 10-29-2024 Platelet mean volume (Bld) [Entitic vol] 9.2 fL 6.2-12.0 [facility] Monocyte percentageOrdered B y: Roderick Laurent on 10-29-2024 Monocytes/100 WBC (Bld) 12.5 % High 0-10 [facility] Neutrophil percentageOrdered By: Roderick Laurent on 10-29-2024 Neutrophils/100 WBC (Bld) 66.9 % 47-70 [facility] Nucleated red blood cell per centageOrdered By: Roderick Laurent on 10-29-2024 Nucleated RBC/100 WBC (Bld) [Ratio] 0 % 0-5 [facility] Platelet countOrdered By: Marilu Laurent on 10-29-2024 Platelets (Bld) [#/Vol] 230 10*3/uL 150-450 [facility] Potassium measurementOrdered By: Roderick Laurent on 10-29-2024 Potassium [Moles/Vol] 4.4 mmol/L 3.5-5.1 [facility] RBC Auto (Bld) [#/Vol]Ordere d By: Roderick Laurent on 10-29-2024 RBC (Bld) [#/Vol] 4.02 10*6/uL Low 4.6-6.2 [facility] Serum anion gap measurementO rdered By: Roderick Laurent on 10-29-2024 Anion gap [Moles/Vol] 7 mmol/L 5-15 [facility] Serum globulin measurementOr dered By: Roderick Laurent on 10-29-2024 Globulin (S) [Mass/Vol] 2.9 g/dL 2.2-4.2 [facility] Serum or plasma alanine nix otransferase (ALT) measurementOrdered By: Roderick Laurent on 10-29-2024 ALT [Catalytic activity/Vol] 15 U/L Low 16-61 [facility] Serum or plasma albumin jesenia urement (mass/volume)Ordered By: Roderick Laurent on 10-29-2024 Albumin [Mass/Vol] 3.5 g/dL 3.2-5.0 [facility] Serum or plasma alkaline radha sphatase measurementOrdered By: Roderick Laurent on 10-29-2024 ALP [Catalytic activity/Vol] 64 U/L 45-117 [facility] Serum or plasma calcium jesenia urement (mass/volume)Ordered By: Roderick Laurent on 10-29-2024 Calcium [Mass/Vol] 8.9 mg/dL 8.5-10.1 [facility] Serum or plasma creatinine m easurement (mass/volume)Ordered By: Roderick Laurent on 10-29-2024 Creatinine [Mass/Vol] 1.57 mg/dL High 0.70-1.30 [facility] Comment on above: The validity of the calculated GFR & GFRAA in patients over 70 years has not been determined. Clinical correlation is essential. Serum or plasma urea nitroge n measurement (mass/volume)Ordered By: Roderick Laurent on 10-29-2024 Urea nitrogen [Mass/Vol] 37 mg/dL High 7-18 [facility] Sodium levelOrdered By: Roderick Laurent on 10-29-2024 Sodium [Moles/Vol] 138 mmol/L 136-145 [facility] Total proteinOrdered By: Katie Laurent on 10-29-2024 Protein [Mass/Vol] 6.4 g/dL 6.4-8.2 [facility] White blood cell (WBC) count Ordered By: Roderick Laurent on 10-29-2024 WBC (Bld) [#/Vol] 5.7 10*3/uL 4.4-11.0 [facility] Bedside Glucoseon 10-28-2024 FINGERSTICK GLU 191 mg/dL High 74-106 [facility] Comment on above: Result Comment: ARNOLD GEMENT OF PATIENT CARE PER NURSING PROTOCOL Performed By: #### L 501.080 #### [facility] [address] [place], [address] FINGERSTICK GLU 130 mg/dL High -106 [facility] Comment on above: Result Comment: ARNOLD GEMENT OF PATIENT CARE PER NURSING PROTOCOL Performed By: #### L 501.080 #### [facility] [address] [place], [address] FINGERSTICK GLU 204 mg/dL High 74-106 [facility] Comment on above: Result Comment: ARNOLD GEMENT OF PATIENT CARE PER NURSING PROTOCOL Performed By: #### L 501.080 #### [facility] [address] [place], [address] CBC W/Diff, Automatedon 12-0 Absolute Lymph 1.02 X10 3/uL Normal 0.83-4.51 [facility] Comment on above: Performed By: #### L 100.0100, L500.4050, L501.9520 #### [facility] [address] [place], [address] Absolute Neut 3.9 X10 3/uL Normal 2.0-7.7 [facility] Comment on above: Performed By: #### L 100.0100, L500.4050, L501.9520 #### [facility] [address] [place], [address] Basophils/100 WBC (Bld) 0.5 % Normal 0-1 [facility] Comment on above: Performed By: #### L 100.0100, L500.4050, L501.9520 #### [facility] [address] [place], [address] Eosinophils/100 WBC (Bld) 3.0 % Normal 0-5 [facility] Comment on above: Performed By: #### L 100.0100, L500.4050, L501.9520 #### [facility] [address] [place], [address] Erythrocyte distribution width (RBC) [Ratio] 11.8 % Normal 11.6-14.6 [facility] Comment on above: Performed By: #### L 100.0100, L500.4050, L501.9520 #### [facility] [address] [place], [address] Hematocrit (Bld) [Volume fraction] 40.0 % Normal 40-54 [facility] Comment on above: Performed By: #### L 100.0100, L500.4050, L501.9520 #### [facility] [address] [place], [address] Hemoglobin (Bld) [Mass/Vol] 13.5 g/dL Normal 13.0-16.5 [facility] Comment on above: Performed By: #### L 100.0100, L500.4050, L501.9520 #### [facility] [address] [place], [address] IG% 0.300 Normal 0.0-0.9 [facility] Comment on above: Result Comment: IG% - Immature Granulocytes (promyelocytes, myelocytes and metamyelocytes) > 1% indicates that a LEFT SHIFT is Present. Performed By: #### L 100.0100, L500.4050, L501.9520 #### [facility] [address] [place], [address] Lymphocytes/100 WBC (Bld) 17.2 % Low 19-41 [facility] Comment on above: Performed By: #### L 100.0100, L500.4050, L501.9520 #### [facility] [address] [place], [address] MCH (RBC) [Entitic mass] 33.4 pg High 27.0-32.0 [facility] Comment on above: Performed By: #### L 100.0100, L500.4050, L501.9520 #### [facility] [address] [place], [address] MCHC (RBC) [Mass/Vol] 33.8 g/dL Normal 32-36 [facility] Comment on above: Performed By: #### L 100.0100, L500.4050, L501.9520 #### [facility] [address] [place], [address] MCV (RBC) [Entitic vol] 99.0 fL High 80-94 [facility] Comment on above: Performed By: #### L 100.0100, L500.4050, L501.9520 #### [facility] [address] [place], [address] Monocytes/100 WBC (Bld) 13.9 % High 0-10 [facility] Comment on above: Performed By: #### L 100.0100, L500.4050, L501.9520 #### [facility] [address] [place], [address] Neutrophils/100 WBC (Bld) 65.1 % Normal 47-70 [facility] Comment on above: Performed By: #### L 100.0100, L500.4050, L501.9520 #### [facility] [address] [place], [address] Nucleated RBC (Bld) [#/Vol] 0 10*3/uL Normal 0-5 [facility] Comment on above: Performed By: #### L 100.0100, L500.4050, L501.9520 #### [facility] [address] [place], [address] Platelet mean volume (Bld) [Entitic vol] 9.4 fL Normal 6.2-12.0 [facility] Comment on above: Performed By: #### L 100.0100, L500.4050, L501.9520 #### [facility] [address] [place], [address] Platelets (Bld) [#/Vol] 251 10*3/uL Normal 150-450 [facility] Comment on above: Performed By: #### L 100.0100, L500.4050, L501.9520 #### [facility] [address] [place], [address] RBC (Bld) [#/Vol] 4.04 10*6/uL Low 4.6-6.2 [facility] Comment on above: Performed By: #### L 100.0100, L500.4050, L501.9520 #### [facility] [address] [place], [address] RDW SD 43.0 fl Normal 35.1-43.9 [facility] Comment on above: Performed By: #### L 100.0100, L500.4050, L501.9520 #### [facility] [address] [place], [address] WBC (Bld) [#/Vol] 5.9 10*3/uL Normal 4.4-11.0 [facility] Comment on above: Performed By: #### L 100.0100, L500.4050, L501.9520 #### [facility] [address] [place], [address] Comprehensive Metabolic Prof ilon 10-28-2024 Albumin [Mass/Vol] 3.6 g/dL Normal 3.2-5.0 [facility] Comment on above: Performed By: #### L 100.0100, L500.4050, L501.9520 #### [facility] [address] [place], [address] Albumin/Globulin [Mass ratio] 1.1 {ratio} Normal 0.9-2.4 [facility] Comment on above: Performed By: #### L 100.0100, L500.4050, L501.9520 #### [facility] [address] [place], [address] ALK P 68 U/L Normal 45-117 [facility] Comment on above: Performed By: #### L 100.0100, L500.4050, L501.9520 #### [facility] [address] [place], [address] ALT [Catalytic activity/Vol] 24 U/L Normal 16-61 [facility] Comment on above: Performed By: #### L 100.0100, L500.4050, L501.9520 #### [facility] [address] [place], [address] AST [Catalytic activity/Vol] 25 U/L Normal 15-37 [facility] Comment on above: Performed By: #### L 100.0100, L500.4050, L501.9520 #### [facility] [address] [place], [address] Bilirubin [Mass/Vol] 1.00 mg/dL Normal 0.20-1.00 [facility] Comment on above: Result Comment: For patients on eltrombopag therapy, use of Dimension [place] TBIL is not recommended. Performed By: #### L 100.0100, L500.4050, L501.9520 #### [facility] [address] [place], [address] BUN/CRE 16.7 RATIO Normal 10-20 [facility] Comment on above: Performed By: #### L 100.0100, L500.4050, L501.9520 #### [facility] [address] [place], [address] CA,Total 8.7 mg/dL Normal 8.5-10.1 [facility] Comment on above: Performed By: #### L 100.0100, L500.4050, L501.9520 #### [facility] [address] [place], [address] Chloride [Moles/Vol] 105 mmol/L Normal 98-107 [facility] Comment on above: Performed By: #### L 100.0100, L500.4050, L501.9520 #### [facility] [address] [place], [address] CO2 [Moles/Vol] 23.0 mmol/L Normal 21.0-32.0 [facility] Comment on above: Performed By: #### L 100.0100, L500.4050, L501.9520 #### [facility] [address] [place], [address] Creatinine [Mass/Vol] 1.20 mg/dL Normal 0.70-1.30 [facility] Comment on above: Result Comment: The validity of the calculated GFR GFRAA in patients over 70 years has not been determined. Clinical correlation is essential. Performed By: #### L 100.0100, L500.4050, L501.9520 #### [facility] [address] [place], [address] ECRCL 50.55 ml/min Normal [facility] Comment on above: Performed By: #### L 100.0100, L500.4050, L501.9520 #### [facility] [address] [place], [address] EST GFR - AA 74 mL/min Normal >60 [facility] Comment on above: Result Comment: Afri can Bhutanese GFR Calc Performed By: #### L 100.0100, L500.4050, L501.9520 #### [facility] [address] [place], [address] GAP 8 Normal 5-15 [facility] Comment on above: Performed By: #### L 100.0100, L500.4050, L501.9520 #### [facility] [address] [place], [address] GFR/1.73 sq M.predicted among non-blacks MDRD (S/P/Bld) [Vol rate/Area] 62 mL/min/{1.73_m2} Normal >60 [facility] Comment on above: Result Comment: Non- GFR Calc Performed By: #### L 100.0100, L500.4050, L501.9520 #### [facility] [address] [place], [address] Globulin (S) [Mass/Vol] 3.3 g/dL Normal 2.2-4.2 [facility] Comment on above: Performed By: #### L 100.0100, L500.4050, L501.9520 #### [facility] [address] [place], [address] Glucose [Mass/Vol] 130 mg/dL High 74-106 [facility] Comment on above: Result Comment: Fast ing Glucose result greater than or equal to 126 mg/dL suggests DIABETES MELLITUS per A.D.A. criteria. Performed By: #### L 100.0100, L500.4050, L501.9520 #### [facility] [address] [place], [address] Potassium [Moles/Vol] 3.9 mmol/L Normal 3.5-5.1 [facility] Comment on above: Performed By: #### L 100.0100, L500.4050, L501.9520 #### [facility] [address] [place], [address] Sodium [Moles/Vol] 136 mmol/L Normal 136-145 [facility] Comment on above: Performed By: #### L 100.0100, L500.4050, L501.9520 #### [facility] [address] [place], [address] T PROT 6.9 g/dL Normal 6.4-8.2 [facility] Comment on above: Performed By: #### L 100.0100, L500.4050, L501.9520 #### [facility] [address] [place], [address] Urea nitrogen [Mass/Vol] 20 mg/dL High 7-18 [facility] Comment on above: Performed By: #### L 100.0100, L500.4050, L501.9520 #### [facility] [address] [place], [address] Culture, Anaerobic Any Sourc adrianna 10-28-2024 CUAN List Antibiotics [place] t 48 Hours? NONE List Antibiotics to be Started? NONE No anaerobic bacteria isolated. Normal [facility] Comment on above: Performed By: #### M 100.4001, M100.3000, M100.2000 ####[facility] [address] [place], [address] TSH QnOrdered By: Sulma maxwell on 10-28-2024 Thyroid Stimulating Hormone (TSH) 4.070 uIU/mL High 0.358-3.740 [facility] Thyroid Stim Hormone (TSH)on 10-28-2024 TSH 4.070 uIU/mL High 0.358-3.740 [facility] Comment on above: Performed By: #### L 100.0100, L500.4050, L501.9520 #### [facility] [address] [place], [place], [address] Urine Cultureon 10-28-2024 URC Mixed Gram Pos Gram Neg Org [place] Count 11,000-25,000 MIXC Mixed contaminants. Submit a new specimen if indicated. Normal [facility] Comment on above: Performed By: #### M 100.2200 ####[facility] [address] [place], [address] 12 Lead EKGon 10-27-2024 12 Lead EKG [facility] [address] [address] 12 Lead EKG 10/27/24 1027 MR#: [id number] Acct: [id number] Name: FLEX KLINE Rep #: [id number] : 1940 84 From: Garfield Thornton MD Attending Dr: Dr. Roderick Laurent DO Status: A DM IN Ordering Dr: Velasquez Morales DO Date: 4 Location: [facility] Sex: M C Admitted: 10/27/24 Test Reason [...] normal ECG Confirmed by Garfield Thornton ([id number]), deputy editor in chief ERROL AIKEN ([id number]) on 10/30/2024 6:53:52 AM Referred By: Confirmed By: Garfield Thornton 10/30/24 0653 Date Garfield Thornton MD CC: Dr. Velasquez Morales DO; Dr. Roderick Laurent DO; Dr. Felix Montelongo MD Signed Normal [facility] BNP (brain natriuretic pepti de measurement)Ordered By: Velasquez Morales on 10-27-2024 Natriuretic peptide B (Bld) [Mass/Vol] 133.8 pg/mL High 0-100 [facility] BNP,B-Type NATRIURETIC PEPTI Camryn 10-27-2024 Natriuretic peptide B (Bld) [Mass/Vol] 133.8 pg/mL High 0-100 [facility] Comment on above: Performed By: #### L 501.080 #### [facility] [address] [place], [address] Basic Metabolic Profile (BMP )on 10-27-2024 BUN/CRE 17.1 RATIO Normal 10-20 [facility] Comment on above: Order Comment: 1Y Performed By: #### L 501.080 #### [facility] [address] [place], [address] CA,Total 9.2 mg/dL Normal 8.5-10.1 [facility] Comment on above: Order Comment: 1Y Performed By: #### L 501.080 #### [facility] [address] [place], [address] Chloride [Moles/Vol] 100 mmol/L Normal 98-107 [facility] Comment on above: Order Comment: 1Y Performed By: #### L 501.080 #### [facility] [address] [place], [address] CO2 [Moles/Vol] 27.0 mmol/L Normal 21.0-32.0 [facility] Comment on above: Order Comment: 1Y Performed By: #### L 501.080 #### [facility] [address] [place], [address] Creatinine [Mass/Vol] 1.46 mg/dL High 0.70-1.30 [facility] Comment on above: Order Comment: 1Y Result Comment: The validity of the calculated GFR GFRAA in patients over 70 years has not been determined. Clinical correlation is essential. Performed By: #### L 501.080 #### [facility] [address] [place], [address] ECRCL 41.55 ml/min Normal [facility] Comment on above: Order Comment: 1Y Performed By: #### L 501.080 #### [facility] [address] [place], [address] EST GFR - AA 59 mL/min Low >60 [facility] Comment on above: Order Comment: 1Y Result Comment: Afri can Bhutanese GFR Calc Performed By: #### L 501.080 #### [facility] [address] [place], [address] GAP 7 Normal 5-15 [facility] Comment on above: Order Comment: 1Y Performed By: #### L 501.080 #### [facility] [address] [place], [address] GFR/1.73 sq M.predicted among non-blacks MDRD (S/P/Bld) [Vol rate/Area] 49 mL/min/{1.73_m2} Low >60 [facility] Comment on above: Order Comment: 1Y Result Comment: Non- GFR Calc Performed By: #### L 501.080 #### [facility] [address] [place], [address] Glucose [Mass/Vol] 158 mg/dL High 74-106 [facility] Comment on above: Order Comment: 1Y Result Comment: Fast ing Glucose result greater than or equal to 126 mg/dL suggests DIABETES MELLITUS per A.D.A. criteria. Performed By: #### L 501.080 #### [facility] [address] [place], [address] Potassium [Moles/Vol] 4.4 mmol/L Normal 3.5-5.1 [facility] Comment on above: Order Comment: 1Y Result Comment: Mode rate Hemolysis, Result may be falsely increased. Performed By: #### L 501.080 #### [facility] [address] [place], [address] Sodium [Moles/Vol] 133 mmol/L Low 136-145 [facility] Comment on above: Order Comment: 1Y Performed By: #### L 501.080 #### [facility] [address] [place], [address] Urea nitrogen [Mass/Vol] 25 mg/dL High 7-18 [facility] Comment on above: Order Comment: 1Y Performed By: #### L 501.080 #### [facility] [address] [place], [address] Bedside Glucoseon 10-27-2024 FINGERSTICK GLU 100 mg/dL Normal 74-106 [facility] Comment on above: Result Comment: ARNOLD HAYWARD OF PATIENT CARE PER NURSING PROTOCOL Performed By: #### L 501.080 #### [facility] [address] [place], [address] Bilirubin Test strip Ql (U)O rdered By: Velasquez Morales on 10-27-2024 Bilirubin Ql (U) Negative Negative [facility] CBC W/Diff, Automatedon 12-0 Absolute Neut Normal 2.0-7.7 [facility] Comment on above: Result Comment: James philippe via OM: Ordered Performed By: #### L 501.080 #### [facility] [address] [place], [address] HCT Normal 40-54 [facility] Comment on above: Result Comment: James philippe via OM: Ordered Performed By: #### L 501.080 #### [facility] [address] [place], [address] HGB Normal 13.0-16.5 [facility] Comment on above: Result Comment: Canc elled via OM: MD Ordered Performed By: #### L 501.080 #### [facility] [address] [place], [address] MCH Normal 27.0-32.0 [facility] Comment on above: Result Comment: Canc elled via OM: MD Ordered Performed By: #### L 501.080 #### [facility] [address] [place], [address] MCHC Normal 32-36 [facility] Comment on above: Result Comment: Canc elled via OM: MD Ordered Performed By: #### L 501.080 #### [facility] [address] [place], [address] MCV Normal 80-94 [facility] Comment on above: Result Comment: Canc elled via OM: MD Ordered Performed By: #### L 501.080 #### [facility] [address] [place], [address] NEUT% Normal 47-70 [facility] Comment on above: Result Comment: Canc elled via OM: MD Ordered Performed By: #### L 501.080 #### [facility] [address] [place], [address] PLT Normal 150-450 [facility] Comment on above: Result Comment: Canc elled via OM: MD Ordered Performed By: #### L 501.080 #### [facility] [address] [place], [address] RBC Normal 4.6-6.2 [facility] Comment on above: Result Comment: Canc elled via OM: MD Ordered Performed By: #### L 501.080 #### [facility] [address] [place], [address] RDW CV Normal 11.6-14.6 [facility] Comment on above: Result Comment: Canc elled via OM: MD Ordered Performed By: #### L 501.080 #### [facility] [address] [place], [address] RDW SD Normal 35.1-43.9 [facility] Comment on above: Result Comment: Canc elled via OM: MD Ordered Performed By: #### L 501.080 #### [facility] [address] [place], [address] WBC Normal 4.4-11.0 [facility] Comment on above: Result Comment: Canc elled via OM: MD Ordered Performed By: #### L 501.080 #### [facility] [address] [place], [address] Absolute Lymph 0.82 X10 3/uL Low 0.83-4.51 [facility] Comment on above: Performed By: #### L 501.080 #### [facility] [address] [place], [address] Absolute Neut 4.3 X10 3/uL Normal 2.0-7.7 [facility] Comment on above: Performed By: #### L 501.080 #### [facility] [address] [place], [address] Basophils/100 WBC (Bld) 0.7 % Normal 0-1 [facility] Comment on above: Performed By: #### L 501.080 #### [facility] [address] [place], [address] Eosinophils/100 WBC (Bld) 2.2 % Normal 0-5 [facility] Comment on above: Performed By: #### L 501.080 #### [facility] [address] [place], [address] Erythrocyte distribution width (RBC) [Ratio] 11.9 % Normal 11.6-14.6 [facility] Comment on above: Performed By: #### L 501.080 #### [facility] [address] [place], [address] Hematocrit (Bld) [Volume fraction] 41.5 % Normal 40-54 [facility] Comment on above: Performed By: #### L 501.080 #### [facility] [address] [place], [address] Hemoglobin (Bld) [Mass/Vol] 14.6 g/dL Normal 13.0-16.5 [facility] Comment on above: Performed By: #### L 501.080 #### [facility] [address] [place], [address] IG% 0.300 Normal 0.0-0.9 [facility] Comment on above: Result Comment: IG% - Immature Granulocytes (promyelocytes, myelocytes and metamyelocytes) > 1% indicates that a LEFT SHIFT is Present. Performed By: #### L 501.080 #### [facility] [address] [place], [address] Lymphocytes/100 WBC (Bld) 14.1 % Low 19-41 [facility] Comment on above: Performed By: #### L 501.080 #### [facility] [address] [place], [address] MCH (RBC) [Entitic mass] 34.9 pg High 27.0-32.0 [facility] Comment on above: Performed By: #### L 501.080 #### [facility] [address] [place], [address] MCHC (RBC) [Mass/Vol] 35.2 g/dL Normal 32-36 [facility] Comment on above: Performed By: #### L 501.080 #### [facility] [address] [place], [address] MCV (RBC) [Entitic vol] 99.3 fL High 80-94 [facility] Comment on above: Performed By: #### L 501.080 #### [facility] [address] [place], [address] Monocytes/100 WBC (Bld) 9.3 % Normal 0-10 [facility] Comment on above: Performed By: #### L 501.080 #### [facility] [address] [place], [address] Neutrophils/100 WBC (Bld) 73.4 % High 47-70 [facility] Comment on above: Performed By: #### L 501.080 #### [facility] [address] [place], [address] Nucleated RBC (Bld) [#/Vol] 0 10*3/uL Normal 0-5 [facility] Comment on above: Performed By: #### L 501.080 #### [facility] [address] [place], [address] Platelet mean volume (Bld) [Entitic vol] 9.6 fL Normal 6.2-12.0 [facility] Comment on above: Performed By: #### L 501.080 #### [facility] [address] [place], [address] Platelets (Bld) [#/Vol] 256 10*3/uL Normal 150-450 [facility] Comment on above: Performed By: #### L 501.080 #### [facility] [address] [place], [address] RBC (Bld) [#/Vol] 4.18 10*6/uL Low 4.6-6.2 [facility] Comment on above: Performed By: #### L 501.080 #### [facility] [address] [place], [address] RDW SD 43.4 fl Normal 35.1-43.9 [facility] Comment on above: Performed By: #### L 501.080 #### [facility] [address] [place], [place], [address] WBC (Bld) [#/Vol] 5.8 10*3/uL Normal 4.4-11.0 [facility] Comment on above: Performed By: #### L 501.080 #### [facility] [address] [place], [place], [address] Chest 1 View (Portable)on Chest 1 View (Portable) [facility] Imaging Services [address] [facility] [address] [place], [place] [address] Chest 1 View (Portable) MR#: [id number] Acct: [id number] Name: FLEX KLINE Rep #: [id number] : 1940 84 From: Clint Freire MD PCP: Dr. Felix Montelongo MD Status: PRE ER Study: Chest 1 View (Portable) Date of Exam: 10/27/24 Exam# [id number] Ordering Dr: Velasquez Morales DO [id number] STUDY: X-RAY CHEST REASON FOR EXAM: Male, [...] Velasquez Morales, DO; Dr. Felix Montelongo MD Hired Worker: Signed Normal [facility] D-Dimer Quantitative (DVT/PE )on 10-27-2024 D-DIMER QUANT 0.50 FEU/ug/m High 0.27-0.49 [facility] Comment on above: Order Comment: CRITI SHIN VALUE CALLED TO TROY ROWELLFXQKROE13/06/24 1225 Cat Benito.RESULTS READ BACK BY SAME. Result Comment: D-Di augusta ELEVATED (>0.49): Additional studies and clinical assessments are indicated to conclude diagnosis of: Deep Vein Thrombosis (DVT) or Pulmonary Embolism (PE) Performed By: #### L 501.080 #### [facility] [address] [place], [place], [address] D-dimer measurement for deep venous thrombosisOrdered By: Velasquez Morales on 10-27-2024 D-Dimer Quantitative (PE/DVT) 0.50 FEU/ug/m High 0.27-0.49 [facility] Comment on above: D-Dimer ELEVATED (>0 .49): Additional studies and clinicalassessments are indicated to conclude diagnosis of:Deep Vein Thrombosis (DVT) or Pulmonary Embolism (PE) Echo Complete W/ Contraston 10-27-2024 Echo Complete W/ Contrast [facility] [address] [facility] [place] [address] Echo Complete W/ Contrast 10/28/24 0814 MR#: [id number] Acct: [id number] Name: FLEX KLINE Rep #: [id number] : 1940 84 From: Angela Ramirez MD [...] Physician: Sulma Romero Performed By: Velasquez Cox, [facility] 10/28/241446 Date Angela Ramirez MD CC: Dr. Roderick Laurent DO; Dr. Sulma Romero MD; Dr. Felix Montelongo MD Date Dictated: 10/28/24813 Date Transcribed: 10/28/241446 Hired Worker: Signed Normal [facility] Emergency Department Summary on 10-27-2024 Emergency Department Summary [facility] Medical Records Department [address] [place] [address] Emergency Department Summary 10/27/24 MR#: [id number] Acct: [id number] Name: FLEX KLINE Rep #: [id number] : 1940 84 From: Velasquez Morales DO PCP: Dr. Felix Montelongo MD Status:ADM IN Location: [place] [id number] HPI History of Present Illness Chief Complaint: [...] without angina pectoris Atherosclerotic heart disease of [place] coronary artery without angina pectoris Parkinson's disease [...] CAD (coron (more content not included)... Normal [facility] Epithelial cells.squamous LM Ql (Urine sed)Ordered By: Velasquez Morales on 10-27-2024 Epithelial cells.squamous LM.HPF (Urine sed) [#/Area] 0 /[HPF] 0-5 [facility] Glucose Ql (U)Ordered By: Korey Morales on 10-27-2024 Glucose (U) [Mass/Vol] 1000 mg/dL High Normal [facility] H AND P Exam - Hospitaliston 10-27-2024 H&P Exam - Hospitalist [facility] Medical Records Department [address] [place] [address] H P Exam - Hospitalist 10/27/24 1633 MR#: [id number] Acct: [id number] Name: FLEX KLINE Rep #: [id number] : 1940 84 From: Sulma Romero MD PCP: Dr. Felix Montelongo MD Status:ADM IN Location: [facility] [id number] HPI - General General Date of Admission: 10/27/24 Date of Service: 10/27/24 Chief Complaint: Weakness, CP, SOB HPI Narrative FLEX KLINE, is a 84-year-old male history of CKD, Parkinson's, CAD, BPH, diabetes, hypothyroidism presented [facility] ED 10/27/2024 with shortness of breath, [...] notice any change with exertion or rest. [facility] Medical History Diabetes GERD (gastroesophageal reflux disease) Cataract 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 heart disease of [place] coronary artery without angina pectoris Parkinson's disease [...] History o (more content not included)... Normal [facility] Influenza virus A and B and SARS-CoV-2 (COVID-19) and Respiratory syncytial virus RNAOrdered By: Velasquez Morales on 10-27-2024 SARS-CoV-2 (COVID-19) RNA ROSIE+probe Ql (Unsp spec) [facility] Ketones Test strip Ql (U)Ord ered By: Velasquez Kaiser on 10-27-2024 Ketones Ql (U) 5 mg/dl High Negative [facility] L501.4020on 10-27-2024 TROPONIN-I HS 9 pg/mL Normal 3.0-78.0 [facility] Comment on above: Result Comment: Plea se Note: New Test Units and Gender Specific Reference Ranges. For more information see Policy Stat Procedure [place] High Sensitivity Troponin (TNIH) and attachments. Performed By: #### L 501.4020 ####[facility] [address] [place], [address] L501.5425on 10-27-2024 TROPONIN-I HS 8 pg/mL Normal 3.0-78.0 [facility] Comment on above: Order Comment: 1Y Result Comment: Plea se Note: New Test Units and Gender Specific Reference Ranges. For more information see Policy Stat Procedure [place] High Sensitivity Troponin (TNIH) and attachments. Performed By: #### L 501.080 #### [facility] [address] [place], [address] M100.678on 10-27-2024 M100.678 Pending SARS-CoV-2 (COVID 19) Negative INFLUENZA A Negative INFLUENZA B Negative RSV PCR Negative Normal [facility] Comment on above: Performed By: #### M 100.678, L400.0001 ####[facility] [address] [place], [address] Magnesiumon 10-27-2024 Magnesium [Mass/Vol] 2.2 mg/dL Normal 1.6-2.6 [facility] Comment on above: Performed By: #### L 501.080 #### [facility] [address] [place], [place], [address] Magnesium measurementOrdered By: Velasquez Morales on 10-27-2024 Magnesium [Mass/Vol] 2.2 mg/dL 1.6-2.6 [facility] Microscopic analysis of urin e for red blood cells (RBC)Ordered By: Velasquez Morales on 10-27-2024 Urine RBC 0 SEEN /hpf 0-5 [facility] Mucus LM Ql (Urine sed)Order ed By: Velasquez Morales on 10-27-2024 Mucus Ql (Urine sed) 0 SEEN /hpf [facility] Nitrite Test strip Ql (U)Ord ered By: Diggs Carmen on 10-27-2024 Nitrite Ql (U) Negative Negative [facility] Protein Test strip Ql (U)Ord ered By: [facility] on 10-27-2024 Protein Ql (U) 30 mg/dl High Negative [facility] Thyroid Stim Hormone (TSH)on 10-27-2024 TSH 2.580 uIU/mL Normal 0.358-3.740 [facility] Comment on above: Performed By: #### L 501.080 #### [facility] [address] [facility] [address] [place], [place], [address] Troponin IOrdered By: Velasquez Morales on 10-27-2024 Troponin I High Sensitivity 9 pg/mL 3.0-78.0 [facility] Comment on above: Please Note: New Luz Elena t Units and Gender Specific Reference Ranges. For more information see Policy Stat Procedure [place] High Sensitivity Troponin (TNIH) and attachments. Urinalysis, Completeon 10-27 BACTERIA 1+ /hpf Normal None Seen [facility] Comment on above: Order Comment: CLEAN CATCH Performed By: #### M 100.678, L400.0001 ####[facility] [address] [place], [address] WBC 10-25 SEEN Normal 0-5 [facility] Comment on above: Order Comment: CLEAN CATCH Performed By: #### M 100.678, L400.0001 ####[facility] [address] [place], [address] BILIRUBIN URINE Negative Normal Negative [facility] Comment on above: Order Comment: CLEAN CATCH Performed By: #### M 100.678, L400.0001 ####[facility] [address] [place], [address] Clarity (U) Clear Normal Clear [facility] Comment on above: Order Comment: CLEAN CATCH Performed By: #### M 100.678, L400.0001 ####[facility] [address] [place], [address] Color (U) Straw Normal Yellow [facility] Comment on above: Order Comment: CLEAN CATCH Performed By: #### M 100.678, L400.0001 ####[facility] [address] [place], [address] GLUCOSE, UR 1000 mg/dl Abnormal Normal [facility] Comment on above: Order Comment: CLEAN CATCH Performed By: #### M 100.678, L400.0001 ####[facility] [address] [place], [address] KETONE UR 5 mg/dl Abnormal Negative [facility] Comment on above: Order Comment: CLEAN CATCH Performed By: #### M 100.678, L400.0001 ####[facility] [address] [place], [address] LEUK ESTERASE 100 /ul Abnormal Negative [facility] Comment on above: Order Comment: CLEAN CATCH Performed By: #### M 100.678, L400.0001 ####[facility] [address] [place], [address] Nitrite Ql (U) Negative Normal Negative [facility] Comment on above: Order Comment: CLEAN CATCH Performed By: #### M 100.678, L400.0001 ####[facility] [address] [place], [address] OCCULT BLOOD-UR Negative Normal Negative [facility] Comment on above: Order Comment: CLEAN CATCH Performed By: #### M 100.678, L400.0001 ####[facility] [address] [place], [address] pH UR 7.0 Normal 5.0 - 8.0 [facility] Comment on above: Order Comment: CLEAN CATCH Performed By: #### M 100.678, L400.0001 ####[facility] [address] [place], [address] PROT DIPSTX 30 mg/dl Abnormal Negative [facility] Comment on above: Order Comment: CLEAN CATCH Performed By: #### M 100.678, L400.0001 ####[facility] [address] [place], [address] SP.GR. DIPSTX 1.010 Normal 1.002-1.030 [facility] Comment on above: Order Comment: CLEAN CATCH Performed By: #### M 100.678, L400.0001 ####[facility] [address] [place], [address] UROBILI Normal Normal Normal [facility] Comment on above: Order Comment: CLEAN CATCH Performed By: #### M 100.678, L400.0001 ####[facility] [address] [place], [address] EPI,SQUAMOUS 0 SEEN Normal 0-5 [facility] Comment on above: Order Comment: CLEAN CATCH Performed By: #### M 100.678, L400.0001 ####[facility] [address] [place], [address] Mucus Ql (Urine sed) 0 SEEN Normal [facility] Comment on above: Order Comment: CLEAN CATCH Performed By: #### M 100.678, L400.0001 ####[facility] [address] [place], [address] RBC 0 SEEN Normal 0-5 [facility] Comment on above: Order Comment: CLEAN CATCH Performed By: #### M 100.678, L400.0001 ####[facility] [address] [place], [address] Urine blood detectionOrdered By: Velasquez Morales on 10-27-2024 Urine Occult Blood Negative Negative [facility] Urine clarityOrdered By: Gregor Morales on 10-27-2024 Clarity (U) Clear Clear [facility] Urine color determinationOrd ered By: Velasquez Morales on 10-27-2024 Color (U) Straw Yellow [facility] Urine cultureOrdered By: Gregor Morales on 10-27-2024 Bacteria identified Cx Nom (U) Mixed Gram Pos & Gram Neg Org Abnormal [facility] Urine leukocyte esterase det ection by dipstickOrdered By: Velasquez Morales on 10-27-2024 Leukocyte esterase Test strip Ql (U) 100 /ul High Negative [facility] Urine pHOrdered By: Velasquez Saab on 10-27-2024 pH (U) 7.0 [pH] 5.0 - 8.0 [facility] Urine sediment bacteria coun t by microscopy (number/high power field)Ordered By: Velasquez Morales on 10-27-2024 Bacteria LM.HPF (Urine sed) [#/Area] 1 /[HPF] None Seen [facility] Urine specific gravity measu rementOrdered By: Velasquez Morales on 10-27-2024 Specific gravity (U) [Rel density] 1.010 1.002-1.030 [facility] Urobilinogen Ql (U)Ordered B y: Velasquez Morales on 10-27-2024 Urine Urobilinogen Normal mg/dl Normal [facility] White blood cell countOrdere d By: Velasquez Morales on 10-27-2024 Urine WBC 10-25 SEEN /hpf 0-5 [facility] Wound Cultureon 10-27-2024 List Antibiotics Las [...] S Vancomycin Islt GAYLA <=0.5 S Normal [facility] Comment on above: Performed By: #### M 100.4001, M100.3000, M100.1999 ####[facility] [address] [place], [address] Gram Stainon 10-26-2024 List Antibiotics Las t 48 Hours? NONE List Antibiotics to be Started? NONE Gram Stain No organisms seen No cells seen Normal [facility] Comment on above: Performed By: #### M 100.4001, M100.3000, M100.2000 ####[facility] [address] [place], [address] Wound Ctr History AND Physic josé miguel 10-25-2024 Wound Ctr History & Physical [facility] [address] [place] [address] H P Exam - Wound Care 10/25/24 1711 MR#: [id number] Acct: [id number] Name: FLEX KLINE Rep #: [id number] : 1940 84 From: Rita Calixto NP [employer]-C PCP: Dr. Felix Montelongo MD Status:REG RCR [...] erythematous and dry but no open wounds. [facility] Medical History Diabetes GERD (gastroesophageal reflux disease) Cataract 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 heart disease of [place] coronary artery without angina pectoris Parkinson's disease [...] Constitutional: D (more content not included)... Normal [facility] Absolute lymphocyte counton 06-29-2023 Lymphocytes Auto (Unsp spec) [#/Vol] 0.81 10*3/uL 0.83-4.51 [facility] Basophil percentageon 2022 Basophils/100 WBC (Bld) 0.2 % 0-1 [facility] Bilirubin [Mass/Vol] 0.80 mg/dL 0.20-1.00 [facility] Comment on above: For patients on eltr ombopag therapy, use of Dimension [place] TBIL is not recommended. Chloride [Moles/Vol] 101 mmol/L 98-107 [facility] Cholesterol [Mass/Vol] 170 mg/dL <200 [facility] Comment on above: <200 mg/dL Desirable 200-240 mg/dL Borderline >240 mg/dL High Risk Eosinophils/100 WBC (Bld) 3.3 % 0-5 [facility] Glucose [Mass/Vol] 119 mg/dL 74-106 [facility] Comment on above: Fasting Glucose resu lt from 100 to 125 mg/dL suggests IMPAIRED HOMEOSTASIS per A.D.A. criteria. Neutrophils (Bld) [#/Vol] 3.9 10*3/uL 2.0-7.7 [facility] Neutrophils/100 WBC (Bld) 70.4 % 47-70 [facility] Potassium [Moles/Vol] 4.8 mmol/L 3.5-5.1 [facility] Protein [Mass/Vol] 7.2 g/dL 6.4-8.2 [facility] Sodium [Moles/Vol] 134 mmol/L 136-145 [facility] Triglyceride [Mass/Vol] 57 mg/dL <199 [facility] Comment on above: The drugs N-Acetylcy steine and Metamizole may falsely depress this assay.Serum Triglycerides Reference Interval Normal <150 mg/dL Borderline high 150 - 199 mg/dL High 200 - 499 mg/dL Very High > or = 500 mg/dL WBC (Bld) [#/Vol] 5.5 10*3/uL 4.4-11.0 [facility] Blood erythrocytes count (nu mber/volume)on 06-29-2023 RBC (Bld) [#/Vol] 4.22 10*6/uL 4.6-6.2 [facility] Blood hemoglobin measurement (mass/volume)on 06-29-2023 Hemoglobin (Bld) [Mass/Vol] 14.4 g/dL 13.0-16.5 [facility] Blood lymphocytes/100 leukoc yteson 06-29-2023 Lymphocytes/100 WBC (Bld) 14.8 % 19-41 [facility] Blood monocytes/100 leukocyt eson 06-29-2023 Monocytes/100 WBC (Bld) 11.1 % 0-10 [facility] Blood platelet mean volumeon 06-29-2023 Platelet mean volume (Bld) [Entitic vol] 9.7 fL 6.2-12.0 [facility] Determination of erythrocyte mean corpuscular volume (MCV)on 06-29-2023 MCV (RBC) [Entitic vol] 96.9 fL 80-94 [facility] Hematocrit Auto (Bld) [Volum e fraction]on 06-29-2023 Hematocrit (Bld) [Volume fraction] 40.9 % 40-54 [facility] Laboratory - Chemistry and C hemistry - challengeon 06-29-2023 ALP [Catalytic activity/Vol] 59 U/L 45-117 [facility] ALT [Catalytic activity/Vol] 24 U/L 16-61 [facility] CO2 [Moles/Vol] 27.0 mmol/L 21.0-32.0 [facility] Globulin (S) [Mass/Vol] 3.3 g/dL 2.2-4.2 [facility] Urea nitrogen/Creatinine [Mass ratio] 18.1 mg/mg 10-20 [facility] Laboratory - Hematology and Cell countson 06-29-2023 Erythrocyte distribution width (RBC) [Entitic vol] 42.5 fL 35.1-43.9 [facility] Erythrocyte distribution width (RBC) [Ratio] 11.9 % 11.6-14.6 [facility] Immature granulocytes/100 WBC (Bld) 0.200 % 0.0-0.9 [facility] Comment on above: IG% - Immature Granu locytes (promyelocytes, myelocytes and metamyelocytes) > 1% indicates that a LEFT SHIFT is Present. MCH (RBC) [Entitic mass] 34.1 pg 27.0-32.0 [facility] Nucleated RBC/100 WBC (Bld) [Ratio] 0 % 0-5 [facility] MCHC Auto (RBC) [Mass/Vol]on 06-29-2023 MCHC (RBC) [Mass/Vol] 35.2 g/dL 32-36 [facility] No Panel Informationon 06-29 Estimated GFR (MDRD) Amer 56 mL/min >60 [facility] Comment on above: GFR Calc Estimated GFR (MDRD) Non-Af Amer 46 mL/min >60 [facility] Comment on above: Non- GFR Calc Prostate Specific Antigen Screen 3.35 ng/mL 0.00-4.00 [facility] Comment on above: This test was perfor med using the TPSA assay method for the[employer] chemistry system. Values obtained with differentassay methods cannot be used interchangably.When changing PSA assays in the course of monitoring apatient, additional sequential testing should be carriedout to confirm baseline values. Thyroid Stimulating Hormone (TSH) 4.85 uIU/mL 0.358-3.74 [facility] Urine Microalbumin/Creatinine Ratio 26.8 mg/g CRE <30 [facility] Platelets bldon 06-29-2023 Platelets (Bld) [#/Vol] 217 10*3/uL 150-450 [facility] Serum or plasma albumin jesenia urement (mass/volume)on 06-29-2023 Albumin [Mass/Vol] 3.9 g/dL 3.2-5.0 [facility] Serum or plasma albumin/glob ulin mass ratioon 06-29-2023 Albumin/Globulin [Mass ratio] 1.2 {ratio} 0.9-2.4 [facility] Serum or plasma calcium jesenia urement (mass/volume)on 06-29-2023 Calcium [Mass/Vol] 9.0 mg/dL 8.5-10.1 [facility] Serum or plasma cholesterol in HDL measurement (mass/volume)on 06-29-2023 Cholesterol in HDL [Mass/Vol] 56 mg/dL >40 [facility] Comment on above: The drugs N-Acetylcy steine and Metamizole may falsely depress this assay. Reference Range HDL <40 mg/dL Low HDL Cholesterol HDL >or= 60 mg/dL High HDL Cholesterol Serum or plasma cholesterol in VLDL measurement (mass/volume)on 06-29-2023 Cholesterol in VLDL [Mass/Vol] 11 mg/dL 5-40 [facility] Serum or plasma creatinine m easurement (mass/volume)on 06-29-2023 Creatinine [Mass/Vol] 1.55 mg/dL 0.70-1.30 [facility] Comment on above: The validity of the calculated GFR & GFRAA in patients over 70 years has not been determined. Clinical correlation is essential. Serum or plasma low density lipoprotein (LDL) cholesterol measurement (mass/volume)on 06-29-2023 Cholesterol in LDL [Mass/Vol] 103 mg/dL 0-130 [facility] Serum or plasma urea nitroge n measurement (mass/volume)on 06-29-2023 Urea nitrogen [Mass/Vol] 28 mg/dL 7-18 [facility] Thin prep Papanicolaou smear with manual screeningon 06-29-2023 Thin prep Papanicolaou smear with manual screening 21 U/L 15-37 [facility] Thin prep Papanicolaou smear with manual screening 6 5-15 [facility] Thin prep Papanicolaou smear with manual screening 32.2 mg/L NO RANGE EST. [facility] Urine creatinine measurement (mass/volume)on 06-29-2023 Creatinine (U) [Mass/Vol] 120.00 mg/dL NO RANGE EST. [facility] Whole blood hemoglobin A1c/t otal hemoglobin ratio (mass fraction)on 06-29-2023 HbA1c (Bld) [Mass fraction] 6.9 % 3.8-5.6 [facility] Comment on above: Normal < 5.7 % Predi abetic 5.7 - 6.4 % Diabetic >or= 6.5 % Please note range changes. Basophil percentageon 2021 Bilirubin [Mass/Vol] 0.70 mg/dL 0.20-1.00 [facility] Work Phone: Comment on above: For patients on eltr ombopag therapy, use of Dimension [place] TBIL is not recommended. Chloride [Moles/Vol] 100 mmol/L 98-107 [facility] Work Phone: Cholesterol [Mass/Vol] 180 mg/dL <200 [facility] Work Phone: Comment on above: <200 mg/dL Desirable 200-240 mg/dL Borderline >240 mg/dL High Risk Glucose [Mass/Vol] 138 mg/dL 74-106 [facility] Work Phone: Comment on above: Fasting Glucose resu lt greater than or equal to 126 mg/dL suggests DIABETES MELLITUS per A.D.A. criteria. Potassium [Moles/Vol] 4.4 mmol/L 3.5-5.1 [facility] Work Phone: Protein [Mass/Vol] 7.5 g/dL 6.4-8.2 [facility] Work Phone: Sodium [Moles/Vol] 135 mmol/L 136-145 [facility] Work Phone: Triglyceride [Mass/Vol] 54 mg/dL <199 [facility] Work Phone: Comment on above: The drugs N-Acetylcy steine and Metamizole may falsely depress this assay.Serum Triglycerides Reference Interval Normal <150 mg/dL Borderline high 150 - 199 mg/dL High 200 - 499 mg/dL Very High > or = 500 mg/dL Laboratory - Chemistry and C hemistry - challengeon 06-04-2022 ALP [Catalytic activity/Vol] 66 U/L 45-117 [facility] Work Phone: ALT [Catalytic activity/Vol] 35 U/L 16-61 [facility] Work Phone: CO2 [Moles/Vol] 29.0 mmol/L 21.0-32.0 [facility] Work Phone: Globulin (S) [Mass/Vol] 3.4 g/dL 2.2-4.2 [facility] Work Phone: Urea nitrogen/Creatinine [Mass ratio] 18.2 mg/mg 10-20 [facility] Work Phone: Laboratory - Hematology and Cell countson 06-04-2022 HbA1c (Bld) [Mass fraction] 6.9 % [facility] Work Phone: No Panel Informationon 06-04 Estimated GFR (MDRD) Amer 56 mL/min >60 [facility] Work Phone: Comment on above: GFR Calc Estimated GFR (MDRD) Non-Af Amer 46 mL/min >60 [facility] Work Phone: Comment on above: Non- GFR Calc Thyroid Stimulating Hormone (TSH) 4.27 uIU/mL 0.358-3.74 [facility] Work Phone: Urine Microalbumin/Creatinine Ratio 97.5 mg/g CRE <30 [facility] Work Phone: Serum or plasma albumin jesenia urement (mass/volume)on 06-04-2022 Albumin [Mass/Vol] 4.1 g/dL 3.2-5.0 [facility] Work Phone: Serum or plasma albumin/glob ulin mass ratioon 06-04-2022 Albumin/Globulin [Mass ratio] 1.2 {ratio} 0.9-2.4 [facility] Work Phone: Serum or plasma calcium jesenia urement (mass/volume)on 06-04-2022 Calcium [Mass/Vol] 9.0 mg/dL 8.5-10.1 [facility] Work Phone: Serum or plasma cholesterol in HDL measurement (mass/volume)on 06-04-2022 Cholesterol in HDL [Mass/Vol] 59 mg/dL >40 [facility] Work Phone: Comment on above: The drugs N-Acetylcy steine and Metamizole may falsely depress this assay. Reference Range HDL <40 mg/dL Low HDL Cholesterol HDL >or= 60 mg/dL High HDL Cholesterol Serum or plasma cholesterol in VLDL measurement (mass/volume)on 06-04-2022 Cholesterol in VLDL [Mass/Vol] 11 mg/dL 5-40 [facility] Work Phone: Serum or plasma creatinine m easurement (mass/volume)on 06-04-2022 Creatinine [Mass/Vol] 1.54 mg/dL 0.70-1.30 [facility] Work Phone: Comment on above: The validity of the calculated GFR & GFRAA in patients over 70 years has not been determined. Clinical correlation is essential. Serum or plasma low density lipoprotein (LDL) cholesterol measurement (mass/volume)on 06-04-2022 Cholesterol in LDL [Mass/Vol] 110 mg/dL 0-130 [facility] Work Phone: Serum or plasma urea nitroge n measurement (mass/volume)on 06-04-2022 Urea nitrogen [Mass/Vol] 28 mg/dL 7-18 [facility] Work Phone: Thin prep Papanicolaou smear with manual screeningon 06-04-2022 Thin prep Papanicolaou smear with manual screening 27 U/L 15-37 [facility] Work Phone: Thin prep Papanicolaou smear with manual screening 6 5-15 [facility] Work Phone: Thin prep Papanicolaou smear with manual screening 116.0 mg/L NO RANGE EST. [facility] Work Phone: Urine creatinine measurement (mass/volume)on 06-04-2022 Creatinine (U) [Mass/Vol] 119.00 mg/dL NO RANGE EST. [facility] Work Phone: Echocardiogramon 07-10-2021 Echocardiography [facility] , [address] [place] [address], [address], [place] [address] and TRANSTHORACIC ECHOCARDIOGRAM REPORT Patient Name: FLEX KLINE Reading Physician: [id number] Diamond Hammer MD Study Date: 07/10/2021 Referring Physician: DAVID BABCOCK MRN/PID: [id number] PCP: Accession/Order#: [id number] Department Location: [facility] Date of : 1940 Fellow: Gender: M Nurse: Admit Date: Assistant Manager Pt: Tono Blake RD Admission Status: Outpatient Additional Staff: Height: 180.34 cm CC Report to: Weight: 81.65 kg Study Type: Echocardiogram BSA: 2.02 m2 Blood Pressure: 141 /77 mmHg Diagnosis/ICD: 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 Indication: Coronary artery disease Procedure/CPT: Echo Complete w Full [id number] Patient History: Pertinent History: CAD s/p CABG [...] Antonia: 1.52 PulmV Sys Antonia: 48.61 cm/s [id number] Diamond Hammer MD Electronically signed on 07/10/2021 at 8:33:27 PM Final Normal [facility] Blood Pressure Cuff Sizeon 0 06-24-2021 Fall risk assessment b) One or more fall s in the last year [facility] Work Phone: Tobacco use status CPHS b) No M [facility] Work Phone: Blood Pressure Cuff Size Adult [facility] Work Phone: Office Visit (Vascular [...] dominant, LM unclear, LCX moderate disease, 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 Was told by his primary state historical society director that he may need atherectomy to one [...] 40 mg QHS. Continue ranolazine and ISMR. 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 Was told by his primary state historical society director that he may need atherectomy to one of his vessels (?Cx). Additionally, it appears afterwards he had a MPI that demonstrated no inducible ischemia, normal LV size and function (low risk study) performed on 04-23-2021 and in response to this, it was decided that no further intervention was necessary. Neuroradiologist: Harjinder Jones MD ([facility]) *Active Problems Problems Diabetes mellitus (250.00) (E11.9) [...] 176.5 cm Harjinder Jones MD Work Phone: [facility] 2025 10:58-0400 Body mass index (BMI) [Ratio] 26.2 kg/m2 Harjinder Jones MD Work Phone: [facility] 2025 10:58-0400 Body weight 81.65 kg Harjinder Jones MD Work Phone: [facility] 2025 10:58-0400 Diastolic blood pressure 60 mm[Hg] Harjinder Jones MD Work Phone: [facility] 2025 10:58-0400 Heart rate 82 /min Harjinder Jones MD Work Phone: [facility] 2025 10:58-0400 Respiratory rate 16 /min Harjinder Jones MD Work Phone: [facility] 2025 10:58-0400 SaO2% (BldA) [Mass fraction] 98 % Harjinder Jones MD Work Phone: [facility] 2025 10:58-0400 Systolic blood pressure 138 mm[Hg] Harjinder Jones MD Work Phone: [facility] 03-02-2025 10:37-0400 Body mass index (BMI) [Ratio] 26.2 kg/m2 Kwan Estrella MD Work Phone: [facility] 03-02-2025 10:37-0400 Body weight 81.65 kg Kwan Estrella MD Work Phone: [facility] 03-02-2025 10:37-0400 Diastolic blood pressure 63 mm[Hg] Kwan Estrella MD Work Phone: [facility] 03-02-2025 10:37-0400 Heart rate 69 /min Kwan Estrella MD Work Phone: [facility] 03-02-2025 10:37-0400 SaO2% (BldA) [Mass fraction] 99 % Kwan Estrella MD Work Phone: [facility] 03-02-2025 10:37-0400 Systolic blood pressure 113 mm[Hg] Kwan Estrella MD Work Phone: [facility] 02-27-2025 10:56-0400 Body height 180.[address] Felix Montelongo MD Work Phone: [facility] 02-27-2025 10:56-0400 Diastolic blood pressure 78 mm[Hg] Dr. Felix Montelongo MD Work Phone: [facility] 02-27-2025 10:56-0400 Heart rate 62 /min Dr. Felix Montelongo MD Work Phone: [facility] 02-27-2025 10:56-0400 SaO2% (BldA) [Mass fraction] 96 % Dr. Felix Montelongo MD Work Phone: [facility] 02-27-2025 10:56-0400 Systolic blood pressure 168 mm[Hg] Dr. Felix Montelongo MD Work Phone: [facility] 01-22-2025 13:41-0500 Body height 176.5 cm Harjinder Jones MD Work Phone: [facility] 01-22-2025 13:41-0500 Body mass index (BMI) [Ratio] 25.62 kg/m2 Harjinder Jones MD Work Phone: [facility] 01-22-2025 13:41-0500 Body weight 79.83 kg Harjinder Jnoes MD Work Phone: [facility] 01-22-2025 13:41-0500 Diastolic blood pressure 70 mm[Hg] Harjinder Jones MD Work Phone: [facility] 01-22-2025 13:41-0500 Heart rate 91 /min Harjinder Jones MD Work Phone: [facility] 01-22-2025 13:41-0500 Respiratory rate 14 /min Harjinder Jones MD Work Phone: [facility] 01-22-2025 13:41-0500 SaO2% (BldA) [Mass fraction] 97 % Harjinder Jones MD Work Phone: [facility] 01-22-2025 13:41-0500 Systolic blood pressure 156 mm[Hg] Harjinder Jones MD Work Phone: [facility] 11-30-2024 08:36-0500 Body height 180.[address] Felix Montelongo MD Work Phone: [facility] 11-30-2024 08:36-0500 Body mass index (BMI) [Ratio] 24.1 kg/m2 Dr. Felix Montelongo MD Work Phone: [facility] 11-30-2024 08:36-0500 Body weight 78.[address] Felix Montelongo MD Work Phone: [facility] 11-30-2024 08:36-0500 Diastolic blood pressure 72 mm[Hg] Dr. Felix Montelongo MD Work Phone: [facility] 11-30-2024 08:36-0500 Heart rate 93 /min Dr. Felix Montelongo MD Work Phone: [facility] 11-30-2024 08:36-0500 Respiratory rate 18 /min Dr. Felix Montelongo MD Work Phone: [facility] 11-30-2024 08:36-0500 Systolic blood pressure 138 mm[Hg] Dr. Felix Montelongo MD Work Phone: [facility] 11-01-2024 15:00-0500 Body temperature 97.6 [degF] Dr. Felix Montelongo MD Work Phone: [facility] 11-01-2024 15:00-0500 Diastolic blood pressure 54 mm[Hg] Dr. Felix Montelongo MD Work Phone: [facility] 11-01-2024 15:00-0500 Heart rate 76 /min Dr. Felix Montelongo MD Work Phone: [facility] 11-01-2024 15:00-0500 Respiratory rate 18 /min Dr. Felix Montelongo MD Work Phone: [facility] 11-01-2024 15:00-0500 SaO2% (BldA) [Mass fraction] 94 % Dr. Felix Montelongo MD Work Phone: [facility] 11-01-2024 15:00-0500 Systolic blood pressure 104 mm[Hg] Dr. Felix Montelongo MD Work Phone: [facility] 11-01-2024 06:00-0500 Body mass index (BMI) [Ratio] 24.3 kg/m2 Dr. Felix Montelongo MD Work Phone: [facility] 11-01-2024 06:00-0500 Body weight [address] Felix Montelongo MD Work Phone: [facility] 01-04-2024 15:09-0500 Body height 176.5 cm Rocío Denbow PA-C Work Phone: [facility] 01-04-2024 15:09-0500 Body weight 83.01 kg Rocío Denbow PA-C Work Phone: [facility] 01-04-2024 15:09-0500 Diastolic blood pressure 66 mm[Hg] Rocío Joeybow PA-C Work Phone: [facility] 01-04-2024 15:09-0500 Heart rate 73 /min Rocío Denbow PA-C Work Phone: [facility] 01-04-2024 15:09-0500 Respiratory rate 14 /min Rocío Wagner PA-C Work Phone: [facility] 01-04-2024 15:09-0500 SaO2% (BldA) [Mass fraction] 97 % Rocío Wagner PA-C Work Phone: [facility] 01-04-2024 15:09-0500 Systolic blood pressure 122 mm[Hg] Rocío Wagner PA-C Work Phone: [facility] 06-04-2022 08:28-0400 Body height 182.[address] Felix Montelongo Work Phone: [facility] Work Phone: 06-04-2022 08:28-0400 Body mass index (BMI) [Ratio] 26 kg/m2 Dr. Felix Montelongo Work Phone: [facility] Work Phone: 06-04-2022 08:28-0400 Body temperature 96.5 [degF] Dr. Felix Montelongo Work Phone: [facility] Work Phone: 06-04-2022 08:28-0400 Body weight 87.[address] Felix Montelongo Work Phone: [facility] Work Phone: 06-04-2022 08:28-0400 Diastolic blood pressure 76 mm[Hg] Dr. Felix Montelongo Work Phone: [facility] Work Phone: 06-04-2022 08:28-0400 Heart rate 58 /min Dr. Felix Montelongo Work Phone: [facility] Work Phone: 06-04-2022 08:28-0400 Respiratory rate 18 /min Dr. Felix Montelongo Work Phone: [facility] Work Phone: 06-04-2022 08:28-0400 SaO2% (BldA) [Mass fraction] 99 % Dr. Felix Montelongo Work Phone: [facility] Work Phone: 06-04-2022 08:28-0400 Systolic blood pressure 124 mm[Hg] Dr. Felix Montelongo Work Phone: [facility] Work Phone: 06-24-2021 13:44-0400 Body height 182.88 cm Referring Provider Unknown [facility] Work Phone: 06-24-2021 13:44-0400 Body mass index (BMI) [Ratio] 24.36 kg/m2 Referring Provider Unknown YB[facility] Work Phone: 06-24-2021 13:44-0400 Body surface area Derived from formula 2.04 m2 Referring Provider Unknown LC[facility]fbqegzuuz[facility] Work Phone: 06-24-2021 13:44-0400 Body weight 81.47 kg Referring Provider Unknown OR[facility]Rzgrgvobap[facility]Wxvh [facility] Work Phone: 06-24-2021 13:44-0400 Diastolic blood pressure 75 mm[Hg] Referring Provider Unknown RV[facility]iedotilah[facility] Work Phone: 06-24-2021 13:44-0400 Heart rate 81 /min Referring Provider Unknown VF[facility]Lenctezrsq[facility]h [facility] Work Phone: 06-24-2021 13:44-0400 Systolic blood pressure 138 mm[Hg] Referring Provider Unknown DQ[facility]zypppoj[facility] Work Phone: 06-24-2021 13:44-0400 0 1 Referring Provider Unknown OA[facility]Ptipzbgsxi[facility]jgo [facility] Work Phone: Comment on above: [facility] 05-15-2021 11:29-0400 Body height 182.88 cm Referring Provider Unknown VL-Iegohdphyx-Psil na [address] [place] Work Phone: 05-15-2021 11:29-0400 Body mass index (BMI) [Ratio] 24.28 kg/m2 Referring Provider Unknown BH-Cxgmaagzvr-Yrgk na [address] [place] Work Phone: 05-15-2021 11:29-0400 Body surface area Derived from formula 2.03 m2 Referring Provider Unknown RV-Rcbjyejupj-Oupf na [address] [place] Work Phone: 05-15-2021 11:29-0400 Body weight 81.19 kg Referring Provider Unknown ZK-Pukznsgzvf-Raru na [address] [place] Work Phone: 05-15-2021 11:29-0400 Diastolic blood pressure 86 mm[Hg] Referring Provider Unknown VE-Uwyrlmaqoy-Omhl na [address] [place] Work Phone: 05-15-2021 11:29-0400 Heart rate 82 /min Referring Provider Unknown SM-Vupdmwcbjl-Diiy na [address] [place] Work Phone: 05-15-2021 11:29-0400 SaO2% (BldA) [Mass fraction] 94 % Referring Provider Unknown MT-Nzrvgpdqmn-Wssg na [address] [place] Work Phone: 05-15-2021 11:29-0400 Systolic blood pressure 180 mm[Hg] Referring Provider Unknown QA-Srltjefpoz-Srth na [address] [place] Work Phone: 05-15-2021 11:29-0400 0 1 Referring Provider Unknown LB-Tumgwthbyh-Oomn na [address] [place] Work Phone: Comment on above: [facility] Encounters Encounter Date Encounter Type Care Provider Facility Start: 04-26-2025 ambulatory Buzz ZHANG Fa cility:[facility] Start: 03-29-2025 ambulatory Buzz Vanessa cility:[facility] Start: 03-29-2025 Registered Referred Buzz aRiney MD -[facility] [place] Start: 2025 End: 2025 ambulatory HARJINDER JONES Facility:[facility] Start: 2025 End: 2025 Patient encounter procedure Harjinder Jones MD Work Phone: Cardiology Comment on above: Primary hypertension (Primary Dx); Coronary artery disease involving [place] coronary artery of [place] heart without angina pectoris Start: 03-02-2025 End: 03-02-2025 Patient encounter procedure Kwan Estrella MD Work Phone: [facility]iology [place] Comment on above: Coronary artery dise ase involving [place] coronary artery of [place] heart, unspecified whether angina present (Primary Dx); PAC (premature atrial contraction); PVC (premature ventricular contraction); Atrial tachycardia (HCC) Start: 03-02-2025 End: 03-02-2025 ambulatory HARJINDER JONES Facility:[facility] Start: 03-01-2025 End: 03-01-2025 Departed Referred Buzz Rainey MD -[facility] Start: 02-28-2025 End: 03-01-[address] Felix Montelongo MD Work Phone: [facility] Work Phone: Start: 02-28-2025 End: 02-28-2025 Departed Referred Buzz Rainey MD [facility] Start: 02-27-2025 End: 02-27-[address] Ozzy Bro MD -[facility] Work Phone: Start: 02-27-2025 End: 02-28-2025 ambulatory Buzz ZHANG Facility:[facility] Start: 02-26-2025 End: 02-26-[address] Felix Montelongo MD Work Phone: [facility] Work Phone: Start: 02-26-2025 End: 02-26-2025 Patient encounter procedure Abeba CERVANTES -[facility] Work Phone: Start: 01-31-2025 End: 01-31-[address] Felix Montelongo MD Work Phone: [facility] Work Phone: Start: 01-31-2025 End: 01-31-2025 Departed Referred Buzz LeeShlomo [facility] Start: 01-31-2025 End: 01-31-2025 ambulatory Buzz ZHANG Facility:[facility] Start: 01-22-2025 End: 01-22-2025 ambulatory HARJINDER JONES Facility:[facility] Start: 01-22-2025 End: 01-22-2025 ambulatory HARJINDER JONES Facility:[facility] Start: 01-22-2025 End: 01-22-2025 Patient encounter procedure Harjinder Jones MD Work Phone: Cardiology Comment on above: Palpitations (Primar y Dx); Diastolic congestive heart failure, unspecified HF chronicity (HCC); Atherosclerosis of [place] coronary artery of [place] heart without angina pectoris Start: 01-04-2025 End: [...] Phone: Start: 12-07-2024 ambulatory Buzz ZHANG Fa cility:[facility] Start: 12-07-2024 Registered Referred Buzz DE LA O - [facility] Start: 12-04-2024 End: 12-04-2024 ambulatory Abeba Peacock [employer] Facility:[facility] Start: 12-04-2024 End: 12-04-2024 Patient encounter procedure Abeba Madonna [employer] Work Phone: Start: 12-02-2024 [facility] Start: 11-30-2024 End: 11-30-[address] Margie Gary MD -[facility] Work Phone: Start: 11-30-2024 End: 11-30-2024 ambulatory Margie Gary Facility:[facility] Start: 11-30-2024 [facility] Start: 11-30-2024 Registered Referred Buzz Huddleston Start: 11-23-2024 [facility] Start: 11-23-2024 Registered Referred Buzz Huddleston Start: 11-16-2024 [facility] Start: 11-16-2024 Registered Referred Buzz Huddleston Start: 11-09-2024 [facility] Start: 11-09-2024 Registered Referred Buzz Huddleston Start: 11-07-2024 End: 11-07-2024 ambulatory Buzz Rainey Facility:[facility] Start: 11-07-2024 End: 11-07-[address] Buzz Rainey MD -[facility] Work Phone: Start: 11-03-2024 ambulatory Buzz Vanessa cility:[facility] Start: 11-03-2024 Registered Referred Buzz Rainey MD -[facility] [place] Start: 11-02-2024 End: 11-02-2024 ambulatory Abebasawyer Wadesandra [employer] Facility:[facility] Start: 11-02-2024 End: 11-02-2024 Patient encounter procedure Abeba Madonna STEAM [employer]TER- -[facility] Work Phone: Start: 11-01-2024 Non-patient / Non-visit Dr. Sung Richardson [facility] Work Phone: Start: 10-31-2024 ambulatory Ozzy Dieudonne Facility:[facility] Start: 10-31-2024 Non-patient / Non-visit Dr. Sung westbrook [facility] Work Phone: Start: 10-30-2024 Non-patient / Non-visit Dr. Sung Richardson [facility] Work Phone: Start: 10-29-2024 Non-patient / [facility] Work Phone: Start: 10-28-2024 Non-patient / Non-visit Dr. Marilu Laurent [facility] Work Phone: Start: 10-28-2024 ambulatory Angela Ramirez Facility:[facility] Start: 10-28-2024 Non-patient / Non-visit Dr. Angela gilmore MD -[facility] Start: 10-27-2024 ambulatory Sung hRodes Facility:[facility] Start: 10-27-2024 End: 11-01-2024 Evaluation and management of inpatient Dr. Sung Rhodes DO -[facility] Work Phone: Start: 10-26-2024 End: [...] about it? Start: 10-25-2024 ambulatory Rita Calixto STEAM [employer]TER Fa cility:[facility] Start: 10-25-2024 End: 11-21-2024 ambulatory Rita Calixto STEAM FITTER Facility:[facility] Start: 09-11-2024 End: 09-11-2024 Refill Harjinder Jones MD Work Phone: [address] [place] [address] Comment on above: Refill Request Start: 02-01-2024 End: 02-01-2024 ambulatory Rocío Wagner PA-C Work Phone: [facility] [place] Comment on above: Controlled type 2 di abetes mellitus without complication, without long-term current use of insulin (HCC) (Primary Dx); Acquired hypothyroidism; Stage 3a chronic kidney disease (HCC); Parkinson's disease, unspecified whether dyskinesia present, unspecified whether manifestations fluctuate (HCC) Start: 02-01-2024 End: 02-01-2024 Telemedicine consultation with patient Rocío Wagner PA-C Work Phone: [facility] Start: 01-05-2024 ambulatory Rocío Wagner PA-C Work Phone: [facility] [place] Comment on above: Roller thing. Would like a prescription to Sammie Pleitez. Start: 01-05-2024 Telephone encounter Felix Montelongo MD Work Phone: [facility] [place] Comment on above: patient update on fa ll Start: 01-04-2024 End: 01-04-2024 Patient encounter procedure Rocío Wagner PA-C Work Phone: [facility] [place] Comment on above: Controlled type 2 di [...] with patient Marni Hudson MD Work Phone: [facility] Start: 06-29-2023 End: 06-29-2023 ambulatory [facility] Work Phone: Start: 06-29-2023 End: 06-29-2023 Patient encounter procedure [facility] Work Phone: Start: 02-19-2023 Telephone encounter [...] encounter procedure Dr. Felix Montelongo Work Phone: [facility] Start: 06-04-2022 End: 06-04-[address] Felix Montelongo Work Phone: [facility] Start: 05-26-2022 Telephone encounter Marni whiting MD [...] cap copd pv dm Referring Provider Unknown [id number] [facility] 2500 Work Phone: Start: 05-15-2021 Patient encounter procedure Referring Provider Unknown [id number]-Twixno [address] [place] Work Phone: Start: 10-25-2018 Ambulatory [facility] Facility :[facility] Start: 02-23-2018 End: 02-23-2018 Ambulatory [facility] Facility:[facility] Start: 01-31-2018 Ambulatory NICOLA PAYNE Facil ity:[facility] Procedures Date Procedure Procedure Detail Performing [...] [facility] [address] [place] [address] Kwan Estrella MD [address] [id number] 1 yr f/u. eg [facility] Comment on above: 1 yr f/u. eg Start: 10-01-2025 End: 10-01-2025 Patient encounter procedure 10/01/2025 10:40 AM EST Office Visit Cardiology [address] [place] [address] Harjinder Jones MD [address], [address] [place], [place] [id number] 6 month follow up Cardiology Comment on above: 6 month follow up Start: 03-08-2025 Covid-19 Vaccine () Covid-19 Vaccine () [facility] Start: 2025 End: 2025 Patient encounter procedure 2025 11:00 AM EDT Office Visit Cardiology [address] [place] [address] Harjinder Jones MD [address], [address] [place], [place] [id number] 6 weeek follow up Cardiology Comment on above: 6 weeek follow up Start: 01-22-2025 End: 04-23-2025 Natriuretic peptide.B prohormone N-Terminal [Mass/volume] in Serum or Plasma [facility] Comment on above: Expected: 01/22/2025 , Expires: 04/23/2025 Start: 01-22-2025 End: 04-23-2025 Thyrotropin [Units/volume] in Serum or Plasma [facility] Comment on above: Expected: 01/22/2025 , Expires: 04/23/2025 Start: 01-22-2025 End: 01-22-2025 Patient encounter procedure 01/22/2025 1:40 PM EST Office Visit Cardiology [address] [place] [address] Harjinder Jones MD [address], [address] [place], [place] [id number] 6 month follow up from appt 11/29/23 Cardiology Comment on above: 6 month follow up fr om appt 11/29/23 Start: 11-22-2024 Advance Directive Discussion Advance Directive Discussion [facility] Start: 11-01-2024 Patient discharge [facility] Start: 10-29-2024 Following clinical pathway protocol [facility] Start: 10-28-2024 Following clinical pathway protocol [facility] Start: 10-28-2024 [facility] Start: 10-27-2024 Following clinical pathway protocol [facility] Start: 10-27-2024 Assessment of risk o f venous thromboembolism [facility] Start: 10-27-2024 Care regimes management [facility] Start: 10-27-2024 Insertion of cathete r into peripheral vein [facility] Start: 10-27-2024 Measuring intake and output [facility] Start: 10-27-2024 Notification of physician [facility] Start: 10-27-2024 Providing care accor ding to standard [facility] Start: 10-27-2024 Provision of activit y privileges [facility] Start: 10-27-2024 Referral to occupati onal therapist [facility] Start: 10-27-2024 Referral to service [facility] Start: 10-27-2024 End: 10-27-2024 [facility] Start: 10-27-2024 Admission procedure [facility] Start: 07-23-2024 Covid-19 Vaccine ( season) Covid-19 Vaccine ( season) [facility] Start: 07-23-2024 Influenza vaccination Influenza Vacc ine (#1) [facility] Start: 03-13-2024 End: 06-12-2024 Thyrotropin [Units/volume] in Serum or Plasma TSH BLD Lab Routine Acquired hypothyroidism Expected: 03/13/2024, Expires: 06/12/2024 [facility] Work Phone: Comment on above: Expected: 03/13/2024 , Expires: 06/12/2024 Start: 02-01-2024 End: 05-02-2024 CBC W Auto Differential panel - Blood CBC + DIFF Lab Routine Stage 3a chronic kidney disease (HCC) Controlled type 2 diabetes mellitus without complication, without long-term current use of insulin (HCC) Parkinson's disease, unspecified whether dyskinesia present, unspecified whether manifestations fluctuate (HCC) Expected: 02/01/2024, Expires: 05/02/2024 [facility] Work Phone: Comment on above: Expected: 02/01/2024 , Expires: 05/02/2024 Start: 02-01-2024 End: 05-02-2024 Hemoglobin A1c in Blood HGB A1C Lab Routine Controlled type 2 diabetes mellitus without complication, without long-term current use of insulin (HCC) Expected: 02/01/2024, Expires: 05/02/2024 [facility] Work Phone: Comment on above: Expected: 02/01/2024 , Expires: 05/02/2024 Start: 01-04-2024 End: 04-04-2024 Basic metabolic 2000 panel - Serum or Plasma [facility] Work Phone: Comment on above: Expected: 01/04/2024 , Expires: 04/04/2024 Start: 01-04-2024 End: 04-04-2024 Thyrotropin [Units/volume] in Serum or Plasma [facility] Work Phone: Comment on above: Expected: 01/04/2024 , Expires: 04/04/2024 Start: 11-22-2023 Advance Directive Discussion Advance Directive Discussion [facility] Start: 11-22-2023 Depression Assessment Depression Ass essment [facility] Start: 07-23-2023 Influenza vaccination INFLUENZA (#1) [facility] Start: 06-29-2023 Adult depression screening assessment DEPRESSION SCREENING [facility] Start: 01-19-2023 COVID-19 VACCINE (6 - Pfizer series) COVID-19 VACCINE (6 - Pfizer series) [facility] Start: 11-22-2022 ADVANCE DIRECTIVE DISCUSSION ADVANCE DIRECTIVE DISCUSSION [facility] Start: 11-22-2022 DEPRESSION ASSESSMENT DEPRESSION ASS ESSMENT [facility] Start: 09-24-2022 Adult depression screening assessment DEPRESSION SCREENING [facility] Start: 07-23-2022 Influenza vaccination INFLUENZA (#1) [facility] Start: 06-04-2022 Testosterone [facility] Work Phone: Start: 05-01-2022 COVID-19 VACCINE (5 - Booster for Pfizer series) COVID-19 VACCINE (5 - Booster for Pfizer series) [facility] Start: 12-15-2021 COVID-19 VACCINE (4 - Booster for Pfizer series) COVID-19 VACCINE (4 - Booster for Pfizer series) [facility] Start: 11-22-2021 ADVANCE DIRECTIVE DISCUSSION ADVANCE DIRECTIVE DISCUSSION [facility] Start: 11-22-2021 DEPRESSION ASSESSMENT DEPRESSION ASS ESSMENT [facility] Start: 07-10-2021 ECHO, Provider: AISHA RHODES,MG CARD, Status: Pen, Time: 10:00 AM QD-Dumnynbqze-Xxlnt view [facility] Work Phone: Start: 02-23-2019 Hepatitis B surface antibody level LDL CHOLESTEROL [facility] Start: 10-28-2016 Pneumococcal Vaccine : 50+ (2 of 2 - PPSV23) Pneumococcal Vaccine: 50+ (2 of 2 - PPSV23) [facility] Start: 10-28-2016 Pneumococcal Vaccine : 65+ (2 of 2 - PPSV23 or PCV20) Pneumococcal Vaccine: 65+ (2 of 2 - PPSV23 or PCV20) [facility] Start: 09-13-2012 Urine microalbumin profile DTaP,Tdap,Td Vaccine (1 - Tdap) [facility] Start: 07-11-2010 Urine microalbumin profile DTAP,TDAP,TD (1 - Tdap) [facility] Start: 2007 PNEUMOVAX AGE 65 AND OVER WITH 5YR LOOKBACK (#1) PNEUMOVAX AGE 65 AND OVER WITH 5YR LOOKBACK (#1) [facility] Start: 1992 SHINGRIX VACCINE (1 of 2) HINTON GRIX VACCINE (1 of 2) [facility] Start: 1960 ANNUAL PCP TEAM 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 BRYCE DISEASE VISIT ANNUAL PCP TEAM CHRONIC DISEASE VISIT [facility] Start: 1960 Anxiety Screening Anxiety Screening [facility] Start: 1960 Depression Screening Depression Scre ening [facility] Start: 1952 3 comp foot exam completed DIABETIC FOOT EXAM [facility] Start: 1952 Diabetic foot examination Diabetic F oot Exam [facility] Start: 1952 Glaucoma screening Dilated Retinal E xam [facility] Start: 1952 Hepatitis B screening URINE AL BUMIN:CREATININE RATIO [facility] Start: 1952 Hepatitis C antibody , confirmatory test DILATED RETINAL EXAM [facility] Start: 1948 PNEUMOCOCCAL: 65+ (1 - PCV) PNEUMOCOCCAL: 65+ (1 - PCV) [facility] Start: 1947 Hemoglobin A1c measurement HbA1C [facility] Start: 1947 Hemoglobin A1c/Hemoglobin.total in Blood HBA1C [facility] NM Heart Views W str ess and W radionuclide IV [facility] OUTSIDE VENDOR CARDI AC OUTPATIENT EXTENDED RHYTHM RECORDING (WITHOUT TELEMETRY) OUTSIDE VENDOR CARDIAC OUTPATIENT EXTENDED RHYTHM RECORDING (WITHOUT TELEMETRY) Holter Routine Palpitations Ordered: 01/22/2025 [facility] Work Phone: Comment on above: Ordered: 01/22/2025 Patient Education Urinary Tract Infections in Men [facility]Is [facility] Work Phone: Patient referral [facility] Work Phone: T4 free measurement [facility] Work Phone: Testosterone Free [Mass/volume] in Serum or Plasma [facility] Work Phone: Testosterone measurement [facility] Work Phone: [facility] Immunizations Immunization Date Immunization Notes Care Provider [facility] 09-13-2023 influenza virus vaccine, unspecified formulation Harjinder Jones MD Work Phone: [facility] 09-23-2020 influenza, injectabl e, quadrivalent, preservative free [facility] 09-23-2020 influenza, seasonal, injectable Dr. Felix Montelongo Work Phone: [facility] Work Phone: 09-05-2014 pneumococcal conjuga te vaccine, [address] Felix Montelongo Work Phone: [facility] 07-23-2014 influenza, injectabl e, quadrivalent, preservative free [facility] 07-23-2014 influenza, seasonal, injectable Dr. Felix Montelongo Work Phone: [facility] Work Phone: 07-10-2010 tetanus and diphther ia toxoids, adsorbed, preservative free, for adult use (2 Lf of tetanus toxoid and 2 Lf of diphtheria toxoid) Marni Hudson MD Work Phone: [facility] Work Phone: 08-22-2007 pneumococcal conjuga te vaccine, 7 valent Marni Hudson MD Work Phone: [facility] Payers Date Payer Category Payer Self-pay [id number] 2022 Medicare [employer] [place] [id number] 2022-Present [phone] [address] [place] [address] [facility] [id number] 2022 [place] [id number] 2022 Medicare [id number] 2020 Medicare [employer] MEDICARE A ETNA MEDICARE PPO [id number] 2020-Present [phone] [address] [place] [address] O [id number] 2016 Medicare [id number] Private Health Insurance [facility] [id number] Private Health Insurance NVB VGRSY [id number] Private Health Insurance [id number] Unknown [employer] Unknown [id number] [id number] .2.462 Unknown [id number] 2.16.840.1.868472.3.579 .2.462 Unknown [id number] 2.16.840.1.952472.3.579 .2.462 Unknown [id number] 2.16.840.1.489081.3.579 .2.462 Unknown [id number] 2.16.840.1.449212.3.579 .2.462 Unknown [id number] 2.16.840.1.471917.3.579 .2.462 Unknown [id number] 2.16.840.1.681739.3.579 .2.462 Unknown [id number] 2.16.840.1.704878.3.579 .2.462 Unknown [id number] 2.16.840.1.439767.3.579 .2.462 Unknown [id number] 2.16.840.1.858525.3.579 .2.462 Unknown [id number] 2.16.840.1.424715.3.579 .2.462 Unknown [id number] 2.16.840.1.546357.3.579 .2.462 Unknown [id number] 2.16.840.1.991048.3.579 .2.462 Unknown [id number] 2.16.840.1.778973.3.579 .2.462 Unknown [id number] 2.16.840.1.729633.3.579 .2.462 Unknown [id number] 2.16.840.1.087139.3.579 .2.462 Unknown [id number] 2.16.840.1.024543.3.579 .2.462 Unknown [id number] 2.16.840.1.289382.3.579 .2.462 Unknown [id number] 2.16.840.1.057740.3.579 .2.462 Unknown [id number] 2.16.840.1.635831.3.579 .2.462 Unknown [id number] 2.16.840.1.363239.3.579 .2.462 Unknown [id number] 2.16.840.1.555626.3.579 .2.462 Unknown [id number] 2.16.840.1.695532.3.579 .2.462 Unknown [id number] 2.16.840.1.655667.3.579 .2.462 Unknown [id number] 2.16.840.1.059122.3.579 .2.462 Unknown [id number] 2.16.840.1.307836.3.579 .2.462 Unknown [id number] 2.16.840.1.861364.3.579 .2.462 Unknown [id number] 2.16.840.1.051658.3.579 .2.462 Unknown [id number] 2.16.840.1.391087.3.579 .2.462 Social History Date Type Detail Facility Start: 06-29-2022 End: 11-09-2024 Tobacco smoking status NHIS Never smoked tobacco [facility] Start: 10-20-2021 End: 2025 Alcohol intake Lifetime non-drinker (finding) [facility] Start: 09-25-2021 History SDOH Alcohol Frequency 1 [facility] Start: 1940 Sex Assigned At Not on file C [facility] Start: 06-04-2022 End: 05-07-2023 Tobacco smoking status NHIS Unknown if ever smoked [facility] Start: 04-21-2021 None [facility] Start: 04-21-2021 Non-smoker [facility] Start: 1940 Sex Assigned At Male W [facility] Start: 06-29-2022 Tobacco use and exposure Smokeless tobacco non-user [facility] Start: 06-19-2022 End: 06-29-2022 Exposure to SARS-CoV-2 (event) Not sure [facility] Start: 06-29-2022 End: 07-07-2023 History of Social function [facility] Start: 06-29-2022 End: 07-07-2023 Tobacco use panel [facility] Adult Depression Screening Assessment 2 [facility] Start: 07-28-2018 Spouse/ Signif icant Other [facility] Start: 02-23-2025 Sex Male (finding) [facility] Medical Equipment Procedure Code Equipment Code [...] Assessment Result Facility 11-01-2024 Functional status Ambulates [facility] Work Phone: 04-23-2021 Are you deaf, or do you have serious difficulty hearing No 04/23/2021 5:34 PM Randi Scott RN No [facility] 04-23-2021 Are you blind, or do you have serious difficulty seeing, even when wearing glasses No 04/23/2021 5:34 PM Randi Scott RN No [facility] 04-23-2021 Do you have serious difficulty walking or climbing stairs No 04/23/2021 5:34 PM Randi Scott, LINSEY No [facility] 04-23-2021 Do you have difficul ty dressing or bathing No 04/23/2021 5:34 PM Randi Scott RN No [facility] 04-23-2021 Because of a physica l, mental, or emotional condition, do you have difficulty doing errands alone such as visiting a physician's office or shopping No 04/23/2021 5:34 PM Randi Scott RN No [facility] Mental Status Date Assessment Result Facility 11-01-2024 Cognitive function Voice/Name [facility] Work Phone: 04-23-2021 Because of a physica l, mental, or emotional condition, do you have serious difficulty concentrating, remembering, or making decisions No 04/23/2021 5:34 PM Randi Scott RN No [facility] Clinical Notes 03-25-2022 to 2025 Harjinder Jones MD - 2025 12:12 PM EDTPatient Kwan Chand MD - 03/02/2025 10:20 AM EDT Note Date & Type Note Facility 2025 Note HNO ID: [id number] Author: HARJINDER JONES MD Service: ? Author Type: Physician Type: Progress Notes Filed: 2025 12:16 Note Text: Harjinder Jones MD Interventional Cardiology [address] [place] [address] [phone] Chief Complaint Patient presents with: Follow Up: 6 week follow up, c/o chest pain HISTORY OF PRESENT ILLNESS: Mr. Kline is a 85 year old male seen in my office today for follow-up patient had a prior history of severe [place] coronary artery disease with prior history of [...] for this visit. (more content not included)... [facility] 2025 History of Present illness Narrative Images from the original note were not included. Harjinder Jones MD Interventional Cardiology [address] [place] [address] [phone] Chief Complaint Patient presents with: Follow Up: 6 week follow up, c/o chest pain HISTORY OF PRESENT ILLNESS: Mr. Kline is a 85 year old male seen in my office today for follow-up patient had a prior history of severe [place] coronary artery disease with prior history of [...] Value 01/22/2025 12.8 07/14/2018 Test sent to [facility]. Hematocrit (%) Date Value 01/22/2025 37.7 07/14/2018 Test sent to [facility]. WBC (k/uL) Date Value 01/22/2025 5.09 07/14/2018 Test sent to [facility]. Platelet Count (k/uL) Date Value 01/22/2025 216 07/14/2018 Test sent to [facility]. BMP: Glucose (mg/dL) Date Value 01/22/2025 [...] Ref Range Status 02/23/2018 Test sent to [facility]. <200 mg/dL Final Comment: Account Credited HIDE HDL Cholesterol Date Value Ref Range Status 02/23/2018 Test sent to [facility]. >39 mg/dL Final Comment: Account Credited [facility] LDL Cholesterol Date Value Ref Range Status 02/23/2018 Test sent to [facility]. <100 mg/dL Final Comment: Account Credited [facility] Triglyceride Date Value Ref Range Status 02/23/2018 Test sent to [facility]. <150 mg/dL Final Comment: Account Credited [...] aerobic exercise 2. Coronary artery disease involving [place] coronary artery of [place] heart without angina pectoris - ICD9: 414.01, [...] correct any errors. documented in this encounter [facility] 03-02-2025 Instructions Kwan Estrella MD - 03/02/2025 [...] at that time. documented in this encounter [facility] 03-02-2025 History of Present illness Narrative Images from the original note were not included. Heart [facility] Vascular [facility] SECTION OF CARDIAC PACING and ELECTROPHYSIOLOGY OUTPATIENT VISIT DATE March 02, 2025 OUTPATIENT VISIT TYPE NEW PRIMARY CARE PHYSICIAN: Vincent Espinosa [address] [place] [address] REFERRING PHYSICIAN: Harjinder Jones [address], [address] [facility] [address] chief complaint on file. HISTORY OF PRESENT [...] currently a resident at [facility]. Had a recent UTI in 10/2024, still [...] rare (<1.0%). Isolated VEs were rare (<1.0%, 09105), VE Couplets were rare (<1.0%, 63), and [...] central nervous system(341.8) Peripheral vascular disease, unspecified ([facility]) Type II or unspecified type diabetes [...] MD This note was partially generated using [employer] voice recognition system. documented in this encounter [facility] 03-02-2025 Note HNO ID: [id number] Author: KWAN ESTRELLA MD Service: ? Author Type: Physician Type: Progress Notes Filed: 03/02/2025 11:18 Note Text: Heart and Vascular [facility] SECTION OF CARDIAC PACING and ELECTROPHYSIOLOGY OUTPATIENT VISIT DATE March 02, 2025 OUTPATIENT VISIT TYPE NEW PRIMARY CARE PHYSICIAN: Vincent Espinosa [address] [place] [address] REFERRING PHYSICIAN: Harjinder Jones [address], [address] [facility] [address] chief complaint on file. HISTORY OF PRESENT [...] currently a resident at [facility]. Had a recent UTI in 10/2024, still [...] rare (<1.0%). Isolated VEs were rare (<1.0%, 35214), VE Couplets were rare (<1.0%, 63), and [...] central nervous system(341.8) Peripheral vascular disease, unspecified ([facility]) Type II or unspecified type diabetes [...] No social hist (more content not included)... [facility] 02-27-2025 Evaluation note Diagnosis Onset Date Resolution Type 2 diabetes mellitus acute February 27, 2025 10:51am CAD (coronary artery disease) chronic February 27, 2025 10:51am CKD (chronic kidney disease) chronic February 27, 2025 10:51am [place] [facility] Work Phone: 1(453) 313-547303-03-2025 NoteHNO ID: [id number] Author: BLANCA MARCELINO LPN Service: ? Author Type: LICENSED NURSE Type: Progress Notes Filed: 01/22/2025 15:05 Note Text: EVENT MONITOR DISPOSABLE PATCH INSTRUCTIONS Patient Name: Flex [facility] Number: [id number] Skin prepped and cleansed with alcohol Patch secured to prepped area Monitor Activated Serial #: [id number] Patient Instructed: Prescribed order timeframe Bathing guidelines Usage of event button and diary documentation Return of monitor at the end of prescribed order Call with problems [phone] or [phone] ext. [phone] Patient expresses a good understanding of instructions [facility] History of Present illness Narrative* Blanca Marcelino LPN - 01/22/2025 3:04 PM EST EVENT MONITOR DISPOSABLE PATCH INSTRUCTIONS Patient Name: Flex [facility] Number: [id number] Skin prepped and cleansed with alcohol Patch secured to prepped area Monitor Activated Serial #: [id number] Patient Instructed: Prescribed order timeframe Bathing guidelines Usage of event button and diary documentation Return of monitor at the end of prescribed order Call with problems [phone] or [phone]. [phone] Patient expresses a good understanding of instructions Blacna Marcelino LPN * Harjinder Jones MD - 01/22/2025 2:34 PM EST Images from the original note were not included. Harjinder Jones MD Interventional Cardiology [address] [address] [phone] Chief Complaint Patient presents with: Follow Up: [...] central nervous system(341.8) Peripheral vascular disease, unspecified ([facility]) Type II or unspecified type diabetes [...] Value 04/22/2021 12.5 07/14/2018 Test sent to [facility]. Hematocrit (%) Date Value 04/22/2021 36.8 07/14/2018 Test sent to [facility]. WBC (k/uL) Date Value 04/22/2021 5.50 07/14/2018 Test sent to [facility]. Platelet Count (k/uL) Date Value 04/22/2021 197 07/14/2018 Test sent to [facility]. BMP: Glucose (mg/dL) Date Value 01/04/2024 [...] Ref Range Status 02/23/2018 Test sent to [facility]. <200 mg/dL Final Comment: Account Credited HIDE HDL Cholesterol Date Value Ref Range Status 02/23/2018 Test sent to [facility]. >39 mg/dL Final Comment: Account Credited HIDE LDL Cholesterol Date Value Ref Range Status 02/23/2018 Test sent to [facility]. <100 mg/dL Final Comment: Account Credited HIDE Triglyceride Date Value Ref Range Status 02/23/2018 Test sent to [facility]. <150 mg/dL Final Comment: Account Credited [...] to check his BMP 3. Atherosclerosis of [place] coronary artery of [place] heart without angina pectoris - ICD9: 414.01, ICD10: I25.10 Stable status prior history of bypass surgery Harjinder Jones MD Follow up plannin weeks Electronically signed by Harjinder Jones MD on January 22, 2025, 2:34 PM The above note was partially created using a dictation recognition software. A reasonable attempt has been made to correct any errors. documented in this encounterSelect [facility]-2025 NoteHNO ID: [id number] Author: HARJINDER JONES MD Service: ? Author Type: Physician Type: Progress Notes Filed: 01/22/2025 14:39 Note Text: Harjinder Jones MD Interventional Cardiology [address], [place] [address] [phone] Chief Complaint Patient presents with: Follow Up: [...] central nervous system(341.8) Peripheral vascular disease, unspecified ([facility]) Type II or unspecified type diabetes [...] loss, nosebleeds, sinus concepcion (more content not included)...[facility] 01-22-2025 NoteHNO ID: [id number] Author: HARJINDER JONES MD Service: ? Author [...] rare (<1.0%). Isolated VEs were rare (<1.0%, 22868), VE Couplets were rare (<1.0%, 63), and VE Triplets were rare (<1.0%, 19). Ventricular Bigeminy and Trigeminy were present. Difficulty discerning atrial activity making definitive diagnosis difficult to ascertain.[facility]01-09-2025 Evaluation note* Diagnosis Onset Date Resolution [...] kidney disease) chronic February 27, 2025 10:51am [facility] Work Phone: [phone]) 447-374812-20-2024 Telephone encounter Note* Telephone Encounter - Florence Reed MA - 11/10/2024 11:09 AM EST Called pt to offer appt on cancellation list. Pt is currently in rehab facility and unable to come.Will call once he is out if needs to be seen sooner. Florence Reed MA [facility]12-20-2024 Miscellaneous Notes* Telephone Encounter - Florence Reed [...] Ana Laura Rosario RN documented in this encounterSelect [facility]12-13-2024 Telephone encounter Note * Telephone Encounter - Ana Laura Rosario RN - 11/03/2024 9:09 AM EST Called and left VM asking the patient to call back to schedule and office visit. If patient calls back please offer 11/13/24 at 1:20pm or 11/27/24 at 1:20pm and ask for an update on the patient's symptoms. Ana Laura Rosario RN [facility]12-11-2024 [facility] Medical Records Department [address] [place] [id number] Discharge Summary 11/01/24 1501 MR#: [id number] Acct: [id number] Name: FLEX KLINE Rep #: [id number] : 1940 84 From: Sung Rhodes DO PCP: Dr. Felix Montelongo MD Status:ADM IN Location: [place] [id number] Providers Date of Admission: 10/27/24 Primary Care [...] on Synthroid VTE prophylaxis: LMWH Disposition: to [facility] pending insurance authorization. 10/31: Talked [...] tablet,delayed release 81 mg PO DAILY@0800 [facility] 07/28/18 nitroglycerin 0.4 mg sublingual tablet 0.4 [...] years or YOUNGER s (more content not included)...[facility]12-06-2024 Evaluation note* Diagnosis Onset Date Resolution [...] 2018 chr onic November 30, 2024 9:59am [facility] Work Phone: [phone] 194-853412-05-2024 Telephone encounter Note* Telephone Encounter - Ana [...] it? Please Advise Ana Laura Rosario RN [facility]10-21-2024 Telephone encounter Note* Telephone Encounter - Ruth [...] Ann Hernandez September 11, 2024 8:46 AM [facility]10-21-2024 Miscellaneous Notes* Telephone Encounter - Ruth Ann [...] 11, 2024 8:46 AM documented in this encounterSelect [facility] [place]03-12-2024 History of Present illness Narrative* Rocío Wagner PA-C - 02/01/2024 3:01 PM EDT This Team Access Model visit is a phone encounter. It required patient-provider interaction for themedical decision making as documented below. Patient agrees to the visit: Yes Patient Location: [place] I have communicated my name and active licensure. The patient's identity and physical location wereverified at the time of this visit. Either the patient or their legal workforce services representative has been informed of the risks [...] Parkinson's and associated tremors. Last A1c at [facility] was in 07/14 was 6.9. [...] care. Rocío Wagner PA-C documented in this encounterSelect [facility]02-27-2024 Miscellaneous Notes* Telephone Encounter - Juliana Choi [...] pt. Florence Santos LPN documented in this encounterSelect Medical [facility]02-14-2024 Miscellaneous Notes* Telephone Encounter - Rocío Wagner [...] prescription? Rocío Wagner PA-C documented in this encounterSelect [facility]02-13-2024 History of Present illness Narrative* Rocío Wagner [...] GFR 46 from most recent labs through [facility] in 07/14. Does not see a watch dial maker. REVIEW OF SYSTEMS See HPI All other [...] plan. Rocío Wagner PA-C documented in this encounterSelect Medical [facility]ty [facility]08-16-2023 Instructions* Patient Instructions* Marni Hudson MD - [...] or you can send a message through [employer]. You can also now schedule and select appointments through [employer]. Marni Hudson MD Constipation and Other Gastrointestinal [...] future constipation. Treatments fall into two categories: qmyc-tol-xfficil and prescription therapies. Remember: consult with your [...] day and your own convenience and preference. Gvyi-pcj-Thwtnkw Products Ogwu-duw-qmppahl treatments for constipation can be purchased at [...] It also comes as a capsule (Senna Manlius Smooth Move ). ving with PD Constipation [...] easier to pass. These can be used residential but should not be used in combination [...] after other remedies have failed. Among the tdti-oie-tcjiglc laxatives, they are most likely to cause [...] psyllium (Perdiem ). Common Side Effects of Aaar-qus-Ygztoyg Products for Constipation Emollient (Stool Softeners) Skin [...] any side effects listed. Prescription Products When kqcc-dro-edfzbhl remedies fail, your healthcare provider may recommend [...] Stimulant X Bisacodyl (Dulcolax ) Stimulant X [place] Oil Stimulant X Cellulose (Unifiber ) Bulk [...] Docusate (Senokot ) Stimulant X Adapted from: [facility] Website, accessed March 17, 2016, www.[employer]/druginformation/ [id number] Special Precautions For your safety, consult your [...] For more information and resources see https://www.parkinson.org/. [facility] is a Center of Excellence for the Parkinson s Foundation. documented in this encounterSelect Medical Specialty [facility]08-16-2023 History of Present illness Narrative* Marni Hudson MD - 07/07/2023 7:02 AM EDT [facility] - FOLLOW UP EVALUATION - VIRTUAL VISIT Felix Montelongo MD [address] [facility] [address] Dear Felix Montelongo MD: I had the pleasure of seeing Mr. Kline for follow-up today. As you know he is a 83 year old right-handed male with a history of ET/PD since 2015(?) . 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 He is seen alone. We had a visit using: [employer] ([employer]) I have communicated my name and active licensure. The patient's identity and physical location wereverified at the time of this visit. Either the patient or their legal workforce services representative has been informed of the risks [...] to schedule and only given options of [place] or [place]. Open to [facility]. Constipation. Prunes used [...] 1 1 1 Level of service : 93375 (40-54 min). Time spent 41 min on the day of service, which included preparing to see the patient, pxnp-wp-qqwj patient care, completing clinical documentation, and counseling and educating the patient/family/caregiver. Thank you for allowing me to be part of the clinical care of this patient! I look forward to continued participation in the patient s care with you. Please do not hesitate to call with any questions. Sincerely, Marni Hudson MD documented in this encounterSelect Medical Specialty [facility]03-31-2023 Miscellaneous Notes* Telephone Encounter - Caitlin Peacock MA - 02/19/2023 7:56 AM EDT Message therapy order mailed to patient home per Dr. Hudson request documented in this encounterSelect Medical Specialty [facility]03-31-2023 Instructions* Patient Instructions* Marni Hudson MD - [...] or you can send a message through [employer]. You can also now schedule and select appointments through [employer]. Marni Hudson MD documented in this encounterSelect Medical [facility]03-31-2023 History of Present illness Narrative* Marni Hudson MD - 02/19/2023 7:02 AM EDT [facility] - FOLLOW UP EVALUATION - VIRTUAL VISIT Felix Montelongo MD, MD [address] [facility] [address] Dear Felix Montelongo MD, MD: I had the pleasure of seeing Mr. Kline for follow-up today. As you know he is a 82 year old right-handed male with a history of ET/PD since 2016(?) . 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 We had a visit using: [employer] ([employer]) I have communicated my name and active licensure. The patient's identity and physical location wereverified at the time of this visit. Either the patient or their legal workforce services representative has been informed of the risks [...] 1 1 1 Level of service : 40992 ( 30-39 min). Time spent 30 min on the day of service, which included preparing to see the patient, fdur-do-acjr patient care, completing clinical documentation, counseling and educating the patient/family/caregiver, and ordering medications, tests, or procedures. Thank you for allowing me to be part of the clinical care of this patient! I look forward to continued participation in the patient s care with you. Please do not hesitate to call with any questions. Sincerely, Marni Hudson MD documented in this encounterSelect Medical [facility]01-27-2023 Instructions* Patient Instructions* Marni Hudson MD - [...] or you can send a message through [employer]. You can also now schedule and select appointments through [employer]. Marni Hudson MD documented in this encounterSelect Medical [facility]ty [facility]01-27-2023 History of Present illness Narrative* Marni Hudson MD - 12/18/2022 6:56 AM EST [facility] - FOLLOW UP EVALUATION - VIRTUAL VISIT Felix Montelongo MD, MD [address] [facility] [address] Dear Felix Montelongo MD, MD: I had the pleasure of seeing Mr. Kline for follow-up today. As you know he is a 82 year old right-handed male with a history of ET/PD since 2016(?) . 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 He is seen with a daughter. We had a visit using: [employer] ([employer]) I received consent from the patient to [...] 1 1 1 Level of service : 90215 (40-54 min). Time spent 51 min on the day of service, which included preparing to see the patient, ytvs-tv-ejnl patient care, completing clinical documentation, and counseling and educating the patient/family/caregiver. Thank you for allowing me to be part of the clinical care of this patient! I look forward to continued participation in the patient s care with you. Please do not hesitate to call with any questions. Sincerely, Marni Hudson MD documented in this encounterSelect Medical [facility]ty [facility]12-21-2022 Miscellaneous Notes* Telephone Encounter - Jazzy Bonds - 11/11/2022 9:17 AM EST Last FUV Jun 2022 with ANNA. Next FUV 12/17/22 with ANNA. documented in this encounterSelect Medical Specialty [facility]07-05-2022 Miscellaneous Notes* Telephone Encounter - Marlena Moya - 05/26/2022 1:[address] Hudson had an opening on 06/03/22. Added patient to schedule; notified him of appt details via voicemail and [employer] message. Marlena Moya * Telephone Encounter - [...] 9:06 AM Routing comment documented in this encounterSelect Medical Specialty [facility]05-04-2022 Miscellaneous Notes* Telephone Encounter - Sharron Higginbotham MA - 03/25/2022 1:55 PM EDT Called patient to get the pre-rooming intake. I left voice mail for a returned call to the office to have this completed. If patient returns call please transfer call to myself or another clinical staff member. Thanks! Sharron Higginbotham MA documented [facility] encounterUniversity [facility]* Diagnosis Onset Date Resolution Status CKD (chronic kidney disease) chronic Edema chronic Fatigue chronic HTN (hypertension) chronic Hypothyroidism chronic Type II diabetes mellitus, uncontrolled chronic [facility] Work Phone: Evaluation note* Diagnosis Parkinson disease (HCC)- Primary Paralysis agitans Essential tremor Essential and other specified forms of tremor documented in this encounter [facility] note* Diagnosis Parkinson disease (HCC)- Primary Paralysis agitans Muscle stiffness Unspecified disorder of muscle, ligament, and fascia Muscle pain Mylagia and myositis, unspecified documented in this encounter [facility] note* Diagnosis Parkinson disease (HCC)- Primary Paralysis agitans Slow transit constipation documented in this encounter [facility] noteNo assessment information availableWTrinity Health System [facility] Work Phone: Evaluation note* Diagnosis Controlled type 2 diabetes mellitus without complication, without long-term current use of insulin ([facility])- Primary Acquired hypothyroidism Unspecified hypothyroidism Parkinson's disease, unspecified whether dyskinesia present, unspecified whether manifestations fluctuate 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 Essential tremor Essential and other specified forms of tremor 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 Stage 3a chronic kidney disease ([facility]) documented in this encounter [facility] note* Diagnosis Controlled type 2 diabetes mellitus without complication, without long-term current use of insulin (HCC)- Primary Acquired hypothyroidism Unspecified hypothyroidism Stage 3a chronic kidney disease (HCC) Parkinson's disease, unspecified whether dyskinesia present, unspecified whether manifestations fluctuate (HCC) documented in this encounter [facility] note* Diagnosis Palpitations- Primary Diastolic congestive heart failure, unspecified HF chronicity (HCC) Atherosclerosis of [place] coronary artery of [place] heart without angina pectoris documented in this encounter [facility] note* Diagnosis Coronary artery disease involving [place] coronary artery of [place] heart, unspecified whether angina present- Primary PAC (premature atrial contraction) Supraventricular premature beats PVC (premature ventricular contraction) Other premature beats Atrial tachycardia (HCC) Other specified cardiac dysrhythmias documented in this encounter [facility]* Diagnosis Primary hypertension- Primary Unspecified essential hypertension Coronary artery disease involving [place] coronary artery of [place] heart without angina pectoris documented in this encounter [facility] AkronReason for referral (narrative)No reason for referral information availableWTrinity Health System [facility] Work Phone: Summary Purpose Family History No [...] FoundDocuments on File Type Date Recorded 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 Reason for Visit [...] WORK November 30, 2024 5: 15am S/P [facility] 11/01November 30, 2024 9: 59am ADMISSION EXAM December 04, 2024 1 2:52pm [facility] WORK December 07, 2024 5:00am ADMISSION EXAM December 19, 2024 1 :28pm NEW [facility] December 21, 2024 2 :05pm NEW [facility]CERN December 26, 2024 1 :17pm [facility] WORK January 04 5:00am NEW CONCERN January 04, 2025 12:35pm [facility] WORK January 31, 2025 5 :00am [...] WORK November 30, 2024 5: 15am S/P [facility] 11/01November 30, 2024 9: 59am ADMISSION EXAM December 04, 2024 1 2:52pm [facility] WORK December 07, 2024 5:00am ADMISSION EXAM December 19, 2024 1 :28pm NEW CONCERN December 21, 2024 2 :05pm NEW CONCERN December 26, 2024 1 :17pm [facility] WORK January 04 5:00am NEW CONCERN January 04, 2025 12:35pm [facility] WORK January 31, 2025 5 :00am 21 M FU RS 10/26 CX 10/31February 27 10:51am [facility] WORK February 28, 2025 5: 00am [...] 27, 2025 10:51am Chief Complaint Admit Date [facility] WORK December 07, 2024 5:00am ADMISSION EXAM December 19, 2024 1 :28pm NEW CONCERN December 21, 2024 2 :05pm NEW CONCERN December 26, 2024 1 :17pm [facility] WORK January 04 5:00am NEW CONCERN January 04, 2025 12:35pm [facility] WORK January 31, 2025 5 :00am NEW CONCERN February 26, 2025 3:51 pm 21 M FU RS 10/26 CX 10/31February 27 10:51am [facility] WORK February 28, 2025 5: 00am [...] HIGH MDM 60-74 MINUTES Marni Hudson MD [facility] [address] [address] Referral ID Status Reason Start Date Expiration Date Visits Requested Visits Authorized [id number] Pending Review PCP Requested Referral 02/15/2023 12/18/2023 1 1 Specialty Diagnoses / Procedures Referred By Contac t Referred To Contact Diagnoses Parkinson disease (HCC) Procedures PROVIDER ORDERED FOLLOW UP OFFICE/OUTPATIENT NEW HIGH MDM 60-74 MINUTES Marni Hudson MD [address] [place] [address] Referral ID Status Reason Start Date Expiration Date Visits Requested Visits Authorized [id number] Pending Review PCP Requested Referral 05/21/2023 02/19/2024 1 1 Specialty Diagnoses / Procedures Referred By Contac t Referred To Contact Diagnoses Parkinson disease (HCC) Muscle stiffness Muscle pain Procedures CONSULT TO MASSAGE THERAPY OFFICE/OUTPATIENT NEW HIGH MDM 60-74 MINUTES Marni Hudson MD [address] [place] [address] Referral ID Status Reason Start Date Expiration Date Visits Requested Visits Authorized [id number] Pending Review PCP Requested Referral 02/19/2023 02/19/2024 1 1 Referral ID Status Reason Start Date Expiration Date Visits Requested Visits Authorized [id number] Pending Review PCP Requested Referral 07/06/2024 1 1 Specialty Diagnoses / Procedures Referred By Contac t Referred To Contact Diagnoses Parkinson disease (HCC) Procedures CONSULT TO MASSAGE THERAPY OFFICE/OUTPATIENT NEW HIGH MDM 60-74 MINUTES Marni Hudson MD [address] [place] [address] Referral ID Status Reason Start Date Expiration Date Visits Requested Visits Authorized [id number] Pending Review PCP Requested Referral 07/07/2023 07/06/2024 1 1 Specialty Diagnoses / Procedures Referred By Contac t Referred To Contact [facility] Diagnoses Parkinson disease (HCC) Procedures CONSULT TO PHYSICAL THERAPY PHYSICAL THERAPY EVALUATION HIGH COMPLEX 45 MINS Marni Hudson MD [address] [address] [facility] [address] [address] Referral ID Status Reason Start Date Expiration Date Visits Requested Visits Authorized [id number] Pending Review Auto-Generat ed Referral 07/07/2023 07/06/2024 1 1 Additional Source Comments (unrecognized sect ion and content) No Status Records FoundNo Status Records FoundNo Status Records FoundNo Status Records FoundNo Status Records FoundNo Status Records Found INFORMATION SOURCE (unrecogn ized section and content) DATE CREATED AUTHOR 05/12/2018 [facility] DATE CREATED AUTHOR AUTHOR'S ORGANIZ ATION 07/11/2021 [facility] DATE CREATED AUTHOR AUTHOR'S ORGANIZ ATION 07/21/2021 [facility] DATE CREATED AUTHOR AUTHOR'S ORGANIZ ATION 03/04/2025 [facility] DATE CREATED AUTHOR AUTHOR'S ORGANIZ ATION 03/06/[address] [facility] DATE CREATED AUTHOR AUTHOR'S ORGANIZ ATION 04/26/2025 [facility] Source Comments (unrecognize d section and content) In the event this informatio n is protected by the Federal Confidentiality of Alcohol and Drug Abuse Patient Records regulations: The Federal rules restrict any use of the information to criminally investigate or prosecute any alcohol or drug abuse patient.[facility] the event this information is protected by the Federal Confidentiality of Alcohol and Drug Abuse Patient Records regulations: The Federal rules restrict any use of the information to criminally investigate or prosecute any alcohol or drug abuse patient.[facility] the event this information is protected by the Federal Confidentiality of Alcohol and Drug Abuse Patient Records regulations: The Federal rules restrict any use of the information to criminally investigate or prosecute any alcohol or drug abuse patient.[facility] [place] the event this information is protected by the Federal Confidentiality of Alcohol and Drug Abuse Patient Records regulations: The Federal rules restrict any use of the information to criminally investigate or prosecute any alcohol or drug abuse patient.[facility] [place] the event this information is protected by the Federal Confidentiality of Alcohol and Drug Abuse Patient Records regulations: The Federal rules restrict any use of the information to criminally investigate or prosecute any alcohol or drug abuse patient.[facility] [place] the event this information is protected by the Federal Confidentiality of Alcohol and Drug Abuse Patient Records regulations: The Federal rules restrict any use of the information to criminally investigate or prosecute any alcohol or drug abuse patient.[facility] [place] the event this information is protected by the Federal Confidentiality of Alcohol and Drug Abuse Patient Records regulations: The Federal rules restrict any use of the information to criminally investigate or prosecute any alcohol or drug abuse patient.[facility] [place] the event this information is protected by the Federal Confidentiality of Alcohol and Drug Abuse Patient Records regulations: The Federal rules restrict any use of the information to criminally investigate or prosecute any alcohol or drug abuse patient.[facility] [place] the event this information is protected by the Federal Confidentiality of Alcohol and Drug Abuse Patient Records regulations: The Federal rules restrict any use of the information to criminally investigate or prosecute any alcohol or drug abuse patient.[facility] [place] the event this information is protected by the Federal Confidentiality of Alcohol and Drug Abuse Patient Records regulations: The Federal rules restrict any use of the information to criminally investigate or prosecute any alcohol or drug abuse patient.[facility] [place] the event this information is protected by the Federal Confidentiality of Alcohol and Drug Abuse Patient Records regulations: The Federal rules restrict any use of the information to criminally investigate or prosecute any alcohol or drug abuse patient.[facility] [place] the event this information is protected by the Federal Confidentiality of Alcohol and Drug Abuse Patient Records regulations: The Federal rules restrict any use of the information to criminally investigate or prosecute any alcohol or drug abuse patient.[facility] [place] the event this information is protected by the Federal Confidentiality of Alcohol and Drug Abuse Patient Records regulations: The Federal rules restrict any use of the information to criminally investigate or prosecute any alcohol or drug abuse patient.[facility] [place] the event this information is protected by the Federal Confidentiality of Alcohol and Drug Abuse Patient Records regulations: The Federal rules restrict any use of the information to criminally investigate or prosecute any alcohol or drug abuse patient.[facility] [place] the event this information is protected by the Federal Confidentiality of Alcohol and Drug Abuse Patient Records regulations: The Federal rules restrict any use of the information to criminally investigate or prosecute any alcohol or drug abuse patient.[facility] [place] the event this information is protected by the Federal Confidentiality of Alcohol and Drug Abuse Patient Records regulations: The Federal rules restrict any use of the information to criminally investigate or prosecute any alcohol or drug abuse patient.[facility] [place]In the event this information is protected by the Federal Confidentiality of Alcohol and Drug Abuse Patient Records regulations: The Federal rules restrict any use of the information to criminally investigate or prosecute any alcohol or drug abuse patient.[facility] [place]In the event this information is protected by the Federal Confidentiality of Alcohol and Drug Abuse Patient Records regulations: The Federal rules restrict any use of the information to criminally investigate or prosecute any alcohol or drug abuse patient.[facility] [place] Reason for Visit (unrecogniz ed section and content) Reason Comments upcoming appointment pre-rooming phone c all Reason Comments Opened In Error Reason Comments Opened In Error Reason Comments Telemedicine Specialty Diagnoses / Procedures Referred By Contac t Referred To Contact Diagnoses Parkinson disease (HCC) Gait instability Procedures PROVIDER ORDERED FOLLOW UP OFFICE/OUTPATIENT [facility] 60-74 MINUTES Marni Hudson MD [address] [address] Referral ID Status Reason Start Date Expiration Date V isits Requested Visits Authorized [id number] Closed PCP Requested Referral 06/29/2022 09/27/2022 1 1 Reason Comments Orders Mailed orders Reason Comments Telemedicine Follow Up Specialty Diagnoses / Procedures Referred By Contac t Referred To Contact Diagnoses Parkinson disease (HCC) Essential tremor Procedures PROVIDER ORDERED FOLLOW UP OFFICE/OUTPATIENT NEW HIGH MDM 60-74 MINUTES Marni Hudson MD [address] [address] Referral ID Status Reason Start Date Expiration Date Visits Requested Visits Authorized [id number] Pending Review PCP Requested Referral 02/15/2023 12/18/2023 [...] Care Teams (unrecognized sec tion and content) Medication Nurse Relationship Specialty Start Date End Date Felix Montelongo [address] [place] [address] PCP - General Unspecified 02/04/16 Anupama Feng DO Internal Medicine 12/29/12 Cali Still MD Primary Staff Physician Cardiology 02/07/19 Medication Nurse Relationship Specialty Start Date End Date Felix Montelongo MD [address] [place] [address] PCP - General Unspecified 02/04/16 Anupama Feng, DO Internal Medicine 12/29/12 Cali Still MD Primary Staff Physician Cardiology 02/07/19 Medication Nurse Relationship Specialty Start Date End Date Felix Montelongo MD [address] [facility] [place] [place] [address] PCP - General Unspecified 02/04/16 Anupama Feng, DO Internal Medicine 12/29/12 Cali Still MD Primary Staff Physician Cardiology 02/07/19 Medication Nurse Relationship Specialty Start Date End Date Felix Montelongo MD [address] [facility] [place] [address] PCP - General Unspecified 02/04/16 Anupama Feng, DO Internal Medicine 12/29/12 Cali Still MD [address] [place], [place] [address] Primary Staff Physician Cardiology 02/07/19 Medication Nurse Relationship Specialty Start Date End Date Felix Montelongo MD [address] [place], [place] [address] PCP - General Unspecified 02/04/16 Anupama Feng, DO Internal Medicine 12/29/12 Cali Still MD [address] [place] [address] Primary Staff Physician Cardiology 02/07/19 Medication Nurse Relationship Specialty Start Date End Date Felix Montelongo MD [address] [place] [address] PCP - General Unspecified 02/04/16 Anupama Feng DO Internal Medicine 12/29/12 Cali Still MD [address] [place] [address] Primary Staff Physician Cardiology 02/07/19 Medication Nurse Relationship Specialty Start Date End Date Felix Montelongo MD [address] [place] [address] PCP - General Unspecified 02/04/16 Anupama Feng DO Internal Medicine 12/29/12 Cali Still MD [address] [place] [address] [id number] Primary Staff Physician Cardiology 02/07/19 Medication Nurse Relationship Specialty Start Date End Date Felix Montelongo MD [address] [place] [address] PCP - General Unspecified 02/04/16 Anupama Feng DO Internal Medicine 12/29/12 Cali Still MD [address] [place] [address] Primary Staff Physician Cardiology 02/07/19 Team Status: Active Member Role Status Dates Dr. Barrett Avalos MD Family Provider Active Dr. Felix Montelongo MD Primary Care Provider Active Team Status: Inactive Member Role Status Dates Dr. Felix Montelongo MD Primary Care Provider Active RUDDY ANGLIN Attending Provider, Referring Provid er Active Medication Nurse Relationship Specialty Start Date End Date Felix Montelongo MD [address] [place] [address] PCP - General Unspecified 02/04/16 Anupama Feng DO Internal Medicine 12/29/12 Cali Still MD [address] [place] [address] Primary Staff Physician Cardiology 02/07/19 Marni Hudson MD [address] [address] Specialty Compliance Consultant Neurology 11/10/23 Medication Nurse Relationship Specialty Start Date End Date Felix Montelongo MD [address] [place] [address] PCP - General Unspecified 02/04/16 Anupama Feng DO Internal Medicine 12/29/12 Cali Still MD [address] [place] [address] Primary Staff Physician Cardiology 02/07/19 Marni Hudson MD [address] [address] Specialty Compliance Consultant Neurology 11/10/23 Medication Nurse Relationship Specialty Start Date End Date Felix Montelongo MD [address] [place] [address] PCP - General Unspecified 02/04/16 Anupama Feng DO Internal Medicine 12/29/12 Cali Still MD [address] [place] [address] Primary Staff Physician Cardiology 02/07/19 Marni Hudson MD [address] [address] Specialty Compliance Consultant Neurology 11/10/23 Medication Nurse Relationship Specialty Start Date End Date Rocío Wagner PA-C [address] [place] [address] PCP - General Family Medicine 02/01/24 Anupama Feng DO Internal Medicine 12/29/12 Cali Still MD Primary Staff Physician Cardiology 02/07/19 Marni Hudson MD [address] [address] Specialty Compliance Consultant Neurology 11/10/23 Medication Nurse Relationship Specialty Start Date End Date Vincent Espinosa MD [address] [place] [address] PCP - General Internal Medicine 02/29/24 Anupama Feng DO Internal Medicine 12/29/12 Cali Still MD Primary Staff Physician Cardiology 02/07/19 Marni Hudson MD [address] [address] Specialty Compliance Consultant Neurology 11/10/23 Medication Nurse Relationship Specialty Start Date End Date Vincent Espinosa MD [address] [place] [address] PCP - General Internal Medicine 02/29/24 Anupama Feng DO Internal Medicine 12/29/12 Cali Still MD Primary Staff Physician Cardiology 02/07/19 Marni Hudson MD [address] [address] Specialty Compliance Consultant Neurology 11/10/23 Rocío Wagner PA-C [address] [place] [address] Flat Bed Knitter Family [facility] 10/29/24 Sheela Cochran APRN.RISK PREVENTION ENGINEER [address] [place] [address] Flat Bed Knitter Internal Medicine 10/29/24 Janine Daugherty PA-C [address] [place] [address] Flat Bed Knitter Family [facility] 10/29/24 Medication Nurse Relationship Specialty Start Date End Date Vincent Espinosa MD [address] [place], [place] [id number] PCP - General Internal Medicine 02/29/24 Anupama Feng DO Internal Medicine 12/29/12 Cali Still MD Primary Staff Physician Cardiology 02/07/19 Marni Hudson MD [address] [address] Specialty Compliance Consultant Neurology 11/10/23 Rocío Wagner PA-C [address] [place] [address] [facility] Family [facility] 10/29/24 Sheela Cochran APRN.RISK PREVENTION ENGINEER [address] [place] [address] Flat Bed Knitter Internal Medicine 10/29/24 Jannie Daugherty PA-C [address] [place] [address] Flat Bed Knitter Family Medicine 10/29/24 Team Status: Inactive Member [...] End: November 02, 2024 Abeba Peacock NP, STEAM FITTER-C Attending Provider Active Start: November 02, 2024 [...] 2024 End: December 04, 2024 Abeba Peacock STEAM FITTER, STEAM FITTER-C Attending Provider Active Start: December 04, 2024 [...] End: December 21, 2024 Abeba Peacock NP, STEAM FITTER-C Attending Provider Active Start: December 21, 2024 [...] End: January 04, 2025 Abeba Peacock NP, STEAM FITTER-C Attending Provider Active Start: January 04, 2025 End: January 04, 2025 Team Status: Inactive Member Role Status Dates Dr. Felix Montelongo MD Primary Care Provider Active Start: January 31, 2025 End: January 31, 2025 Buzz ZHANG MD Attending Provider Active Start: January 31, 2025 End: January 31, 2025 Medication Nurse Relationship Specialty Start Date End Date Vincent Espinosa MD [address] [place] [address] PCP - General Internal Medicine 02/29/24 Anupama Feng DO Internal Medicine 12/29/12 Cali Still MD Primary Staff Physician Cardiology 02/07/19 Marni Hudson MD [address] [address] Specialty Compliance Consultant Neurology 11/10/23 Sheela Cochran APRN.RISK PREVENTION ENGINEER [address] [place], [place] [address] Flat Bed Knitter Internal Medicine 10/29/24 Medication Nurse Relationship Specialty Start Date End Date Vincent Espinosa MD [address] [place], [place] [address] PCP - General Internal Medicine 02/29/24 Anupama Feng DO Internal Medicine 12/29/12 Cali Still MD Primary Staff Physician Cardiology 02/07/19 Marni Hudson MD [address] [address] Specialty Compliance Consultant Neurology 11/10/23 Sheela Cochran APRN.RISK PREVENTION ENGINEER [address] [place], [place] [address] [facility] Internal Medicine 10/29/24 Team Status: Inactive [...] End: February 26, 2025 Abeba Peacock NP, STEAM FITTER-C Attending Provider Active Start: February 26, 2025 [...] BE BASED ON THE PRIMARY CLINICAL RECORDS. [employer] provides no warranty or guarantee of the accuracy or completeness of information in this document.
[2025-05-03 08:26] LABS: Cholesterol 113 mg/dL (<=200); High Density Lipoprotein 42 mg/dL; Low Density Lipoprotein Calc. 56 mg/dL; Triglycerides 74 mg/dL; Very Low Density Lipoprotein 15 mg/dL (5-40)
== END ==
LOC: OLS.WHLTSB 05:00
PROVIDERS: PCP Family Medicine Geriatric Medicine; Visit Provider Internal Medicine
DX: E78.5 Hyperlipidemia, unspecified (principal)
CPT/HCPCS: 36415; 80061

== ENCOUNTER → 2025-05-10 | Outpatient (CLI) | payer MEDICARE, SELFPAY ==
[2020-03-14 14:48] VITALS: BMI 28.1
--- NOTE | 2025-05-10 18:39 | CT_ITS ---
PROCEDURE: BRAIN/HEAD WITHOUT CONTRAST 05/11/2025 REASON FOR EXAM: CONCUSSION WITH LOSS OF CONCIOUSNESS TECHNIQUE: BRAIN/HEAD WITHOUT CONTRAST Coronal and Sagittal reconstruction series were provided. One or more dose reduction techniques were used (e.g., Automated exposure control, adjustment of the mA and/or kV according to patient size, use of iterative reconstruction technique. RADIATION DOSE SUMMARY: CTDlvol: mGy DLP: mGycm COMPARISON: none FINDINGS: Accentuated bilateral cerebral periventricular deep white matter hypodensities denoting hypoperfusion with bilateral cerebral periventricular and subcortical hypodense foci and patches. Ca-white matter differentiation is maintained. Normal CT appearance of the posterior fossa structures. Ca-white matter differentiation is maintained. No intra or extra-axial areas of blood densities. Dilated ventricular system, cortical sulci and extra-axial CSF spaces. No definite calvarial fractures. No midline shifts or deformity. The osseous structures in the skull base are unremarkable. Paranasal sinuses are unremarkable. Vascular atheromatous calcifications. CT/Brain/Head without Contrast IMPRESSION: No acute cerebrovascular pathology. If there is high clinical suspicion, correl ate to MRI No intra or extra-axial acute hematomas. Bilateral cerebral microvascular ischemic changes with age matches brain involu tional changes Reading Location: [facility]
--- OUTSIDE RECORDS SUMMARY | 2025-05-10 18:57 | XMS RPT_ITS | CCD ---
Author Organization [facility] CliniSyar Care Team Providers Care Credit And Loan Collections Supervisor Name Role Phone NICOLA PAYNE Unavailable Unavailable [...] Felix Montelongo MD Primary Care Provider [phone] Dr. Felix Montelongo Primary Care Provider Dr. [...] Unavailable Bernard HILLIARD, Rocío L Unavailable Older ASPHALT MIXER.GLOVE WRAPPER, Sheela Unavailable Janine Daugherty PA-C Unavailable Jayda [...] SLEIK, KHALED MAREOUD Attending Unavailable SLEIK, KHALED MAREOUD Referring Unavailable GANTA, VINCENT Primary Care Unavailable Jayda SHAW, Dr. [place] Primary Care Provider Buzz Rainey MD Attending Provider Unavaila juan carlos Peacock FOX RAISER-C, Abeba Attending Provider Redd SHAW, Dr. Gerber Attending Provider King VALERIA, Dr. Preciado Attending Provider Jayda SHAW, Dr. [place] Primary Care Provider Redd SHAW, Buzz Attending Provider Unavaila juan carlos Peacock FOX RAISER-C, Abeba Attending Provider Jayda SHAW, Dr. [place] Referring Provider Buzz Conley Attending Unavailabl e Jayda, Felix Primary Care Unavailable Durga FOX RAISER, Rita E Attending Unavailabl e Jayda, Felix Primary Care Unavailable Jayda, Felix Referring Unavailable Olee Buzz ZHANG Attending Unavailabl e Jayda, Felix Primary Care Unavailable [facility] Buzz ZHANG Attending Unavailabl e Jayda, Felix Primary Care Unavailable Olee Buzz ZHANG Attending Unavailabl e Jayda, Felix Primary Care Unavailable Olee Buzz ZHANG Attending Unavailabl e Jayda, Felix Primary Care Unavailable [facility] Buzz ZHANG Attending Unavailabl e Jayda, Felix Primary Care Unavailable Sulma Romero Consulting Unavailable Sulma Romero Admitting Unavailable Sung Rhodes Attending Unavailable Jayda, Felix Primary Care Unavailable Roderick Laurent Consulting Unavailable Olee Cody ZHANGbe Attending Unavailabl e Jayda, Felix Primary Care Unavailable Jayda, Felix Primary Care Unavailable Abeba Peacock Attending Unavailable Durga FOX RAISER, Rita E Attending Unavailabl e Jayda, Felix Primary Care Unavailable Durga FOX RAISER, Rita E Consulting Unavailabl e Jayda, Felix Referring Unavailable Jayda, Felix Primary Care Unavailable Angela Ramirez Attending Unavailable Ozzy Bro Attending Unavailable Jayda, Felix Referring Unavailable Jayda, Felix Primary Care Unavailable Oleghe OLS, Efewongbe Attending Unavailabl e Jayda, Felix Primary Care Unavailable Oleghe OLS, Efewongbe Attending Unavailabl e Jayda, Felix Primary Care Unavailable Durga THORPE, Rita Schwartz Attending Unavailabl e Jayda, Felix Referring Unavailable Jayda, Felix Primary Care Unavailable Oleghe OLS, Efewongbe Referring Unavailabl e Oleghe OLS, Efewongbe Attending Unavailabl e Jayda, Felix Primary Care Unavailable Oleghe OLS, Efewongbe Attending Unavailabl e Jayda, Felix Primary Care Unavailable Abeba Peacock Attending Unavailable Jayda, Felix Primary Care Unavailable Oleghe, Efewongbe Attending Unavailable Jayda, Felix Primary Care Unavailable Ozzy Bro Attending Unavailable Jayda, Felix Primary Care Unavailable Jayda, Felix Referring Unavailable Oleghe OLS, Efewongbe Attending Unavailabl e Jayda, Felix Primary Care Unavailable Olee OLS, Efewongbe Attending Unavailabl e Jayda, Felix Primary Care Unavailable Oleghe, Efewongbe Attending Unavailable Jayda, Felix Primary Care Unavailable Oleghe OLS, Efewongbe Attending Unavailabl e Jayda, Felix Primary Care Unavailable Margie Gary Attending Unavailable Jayda, Felix Referring Unavailable Jayda, Felix Primary Care Unavailable Abeba Peacock Attending Unavailable Jayda, Felix Primary Care Unavailable Abeba Peacock Attending Unavailable Jayda, Felix Primary Care Unavailable Sulma Romero Attending Unavailable Sulma Romero Consulting Unavailable Sulma Romero Admitting Unavailable Jayda, Felix Primary Care Unavailable Roderick Laurent Attending Unavailable Roderick Laurent Consulting Unavailable Sung Rhodes Attending Unavailable Sung Rhodes Consulting Unavailable Oleghe, Efewongbe Attending Unavailable Jayda, Felix Primary Care Unavailable Abeba Peacock Attending Unavailable Jayda, Felix Primary Care Unavailable Allergies Allergy Classification Reported Allergen(s) Allergy Type Date of Onset Reaction(s) Facility (20 sources) Adrenergic Beta-Antagonist s; Translations: [BETA-BLOCKERS (BETA-ADRENERGI C BLOCKING AGTS)] Propensity to adverse reactions (disorder) 0 Shortness of Breath [facility] Repository (6 sources) Beta-Blockers (Beta-Adrenergi c Bloc; Translations: [Beta-Blockers (Beta-Adrenergi c Bloc] Allergy to substance 2 ANGIOEDEMA [facility] Medications Current Medications Medication Drug Class(es) [...] tablet (20 sources) HMG-CoA Reductase Inhibitor Start: 4 take 0.5 tablet by mouth once daily [...] daily. With every Sinemet dose 90 tablet 07/07/2023 Active Comment on above: Take 1 tablet by bhaskar three times daily. With every Sinemet dose [...] 1 TABLET PO THREE TIMES A DAY April 28, 2021 11:00pm June 13, 2021 [...] Comment on above: Take 2 tablets by mo ut three times daily. cholecalciferol 0.025 mg oral capsule (8 sources) Vitamin D Start: 11-08-20 take 1 capsule by mouth twice daily Cholecalciferol (Vitamin D3) 25 mcg (1,000 unit) capsule Active 25 ug PO TWICE A DAY November 08, 2024 1:00am Start: 06-15-2018 End: 11-08-2024 Cholecalciferol (Vitamin D3) 5,000 UNIT capsule Discontinued 5000 U PO MOWEFR June 15, 2018 12:00am November 08, 2024 [...] on above: Take 1 tablet by bhaskar once daily. DULoxetine 20 mg delayed release oral capsule (3 sources) Serotonin and Norepinephrine Reuptake Inhibitor Start: 07-06-20 End: 07-06-20 take 1 capsule by mouth once daily DULoxetine (CYMBALTA) 20 mg capsule Take 1 capsule by mouth once daily. 30 capsule 11 07/06/2022 12/18/2022 Discontinued Comment on above: Take 1 capsule by [facility] once daily. finasteride 5 mg oral tablet [...] 5:23pm Start: 05-15-2021 take 1 tablet by [facility] twice daily Folic Acid 800 MCG Oral [...] on above: Take 1 tablet by bhaskar once daily. metFORMIN hydrochloride 1000 mg oral tablet (20 sources) Biguanide Start: 11-15-20 take 1 tablet by mouth twice daily at mealtime Metformin 1,000 MG tablet Active 1000 mg PO TWICE DAILY WITH MEALS November 15, 2015 1:00am Comment on above: Take 1,000 mg by bhaskar twice daily with meals. nitroglycerin 0.4 mg [...] sources) Anti-epileptic Agent Start: 09-25-20 End: 10-30-20 22 take 0.5 tablet by mouth once daily [...] Comment on above: Take 1 capsule by [facility] once daily. VIT B COMPLEX 100 COMBO [...] Discontinued 100 mg PO TWICE A DAY April 03, 2021 12:00am May 07, 2023 [...] Start: 11-26-2017 take 1 tablet by bhaskar once daily Levothyroxine 50 mcg tablet Active [...] disease (20 sources) Atherosclerotic heart disease of saxman coronary artery without angina pectoris; Translations: [Coronary [...] [Urinary tract infection, site not specified] Onset: 11-09-2024 Episodic Viral infection (1 source) Postherpetic [...] X 8 Promus Synergy per [facility]07/20/2018:JACQUELINE of mid saxman RPL branch, 3.0 X 16 Prom[employer] Synergy ; JACQUELINE of distal SVG to RCA, 2.5 X 20 Prom[employer] Synergy per [facility] @ [facility] Nonspecific chest pain (12 sources) Chest [...] spec) [#/Vol] 0.83 10*3/uL 0.83-4.51 [facility] Absolute neutrophil countOrd ered By: Buzz Rainey on 03-29-2025 Neutrophils (Bld) [#/Vol] 2.7 10*3/uL 2.0-7.7 [facility] Anion gap in Serum or Plasma Ordered By: Buzz Rainye on 03-29-2025 Anion gap [Moles/Vol] 11 mmol/L 5-15 [facility] Automated lymphocyte count a s percentage of total leukocytesOrdered By: Buzz Rainey on 03-29-2025 Lymphocytes/100 WBC Auto (Unsp spec) 19.5 % 19-41 [facility] BUN/creatinine ratioOrdered By: Buzz Rainey on 03-29-2025 Urea nitrogen/Creatinine [Mass ratio] 30.3 mg/mg High 10-20 [facility] Basophil percentageOrdered B y: Buzz Rainey on 03-29-2025 Basophils/100 WBC (Bld) 0.7 % 0-1 [facility] Carbon dioxide, total [Moles /volume] in Central venous bloodOrdered By: Buzz Rainey on 03-29-2025 CO2 [Moles/Vol] 22.7 mmol/L 21.0-32.0 [facility] Chloride assayOrdered By: Alexandra Rainey on 03-29-2025 Chloride [Moles/Vol] 103 mmol/L 98-108 [facility] Eosinophil percentageOrdered By: Buzz Rainey on 03-29-2025 Eosinophils/100 WBC (Bld) 4.0 % 0-5 [facility] Erythrocyte distribution wid th ratioOrdered By: Buzz Rainey on 03-29-2025 Erythrocyte distribution width (RBC) [Ratio] 12.0 % 11.6-14.6 [facility] Erythrocyte distribution wid th standard deviationOrdered By: Otiliaoak cityestrella Rainey on 03-29-2025 Erythrocyte distribution width (RBC) [Ratio] 43.5 fl 35.1-43.9 [facility] Glomerular filtration rate ( GFR) estimation/1.73 sq m using serum, plasma, or whole bOrdered By: Buzz Rainey on 03-29-2025 GFR/1.73 sq M.predicted among non-blacks MDRD (S/P/Bld) [Vol rate/Area] 57 mL/min/{1.73_m2} Low >60 [facility] Comment on above: mL/min/1.73m2 CKD-EP I Creatinine Equation (2020) Hematocrit Auto (Bld) [Volum e fraction]Ordered By: Buzz Rainey on 03-29-2025 Hematocrit (Bld) [Volume fraction] 35.5 % Low 40-54 [facility] Hemoglobin measurementOrdere d By: Buzz Rainey on 03-29-2025 Hemoglobin (Bld) [Mass/Vol] 12.1 g/dL Low 13.0-16.5 [facility] Immature granulocytes/100 WB C Auto (Bld)Ordered By: Buzz Rainey on 03-29-2025 Immature granulocytes/100 WBC (Bld) 0.000 % 0.0-0.9 [facility] Comment on above: IG% - Immature Granu locytes (promyelocytes, myelocytes and metamyelocytes) > 1% indicates that a LEFT SHIFT is Present. MCV (mean corpuscular volume ) determinationOrdered By: Buzz Rainey on 03-29-2025 MCV (RBC) [Entitic vol] 98.3 fL High 80-94 [facility] Mean corpuscular hemoglobin (MCH) determinationOrdered By: Buzz Rainey on 03-29-2025 MCH (RBC) [Entitic mass] 33.5 pg High 27.0-32.0 [facility] Mean corpuscular hemoglobin concentration (MCHC) determinationOrdered By: Buzz Rainey on 03-29-2025 MCHC (RBC) [Mass/Vol] 34.1 g/dL 32-36 [facility] Mean platelet volume determi nationOrdered By: Buzz Rainey on 03-29-2025 Platelet mean volume (Bld) [Entitic vol] 10.4 fL 6.2-12.0 [facility] Monocyte percentageOrdered B y: Buzz Rainey on 03-29-2025 Monocytes/100 WBC (Bld) 12.2 % High 0-10 [facility] Neutrophil percentageOrdered By: yumikooak cityestrella Rainey on 03-29-2025 Neutrophils/100 WBC (Bld) 63.6 % 47-70 [facility] Nucleated red blood cell per centageOrdered By: Buzz Rainey on 03-29-2025 Nucleated RBC/100 WBC (Bld) [Ratio] 0 % 0-5 [facility] Platelet countOrdered By: Alexandra kenestrella Rainey on 03-29-2025 Platelets (Bld) [#/Vol] 182 10*3/uL 150-450 [facility] Potassium measurement (mass/ volume)Ordered By: Otiliahueyestrella Rainey on 03-29-2025 Potassium (Unsp spec) [Mass/Vol] 4.8 mmol/L 3.3-5.1 [facility] RBC Auto (Bld) [#/Vol]Ordere d By: Otiliahueyestrella Rainey on 03-29-2025 RBC (Bld) [#/Vol] 3.61 10*6/uL Low 4.6-6.2 [facility] Serum creatinine measurement (mass/volume)Ordered By: Buzz Rainey on 03-29-2025 Creatinine [Mass/Vol] 1.25 mg/dL High 0.70-1.20 [facility] Serum glucose measurement (m ass/volume)Ordered By: Buzz Rainey on 03-29-2025 Glucose [Mass/Vol] 269 mg/dL High 70-99 [facility] Serum or plasma calcium jesenia urement (mass/volume)Ordered By: Codyestrella De La Pazmklana on 03-29-2025 Calcium [Mass/Vol] 9.0 mg/dL 7.6-11.0 [facility] Serum or plasma urea nitroge n measurement (mass/volume)Ordered By: Buzz Rainey on 03-29-2025 Urea nitrogen [Mass/Vol] 38 mg/dL High 4-19 [facility] Sodium levelOrdered By: Otilia arthur Redd on 03-29-2025 Sodium [Moles/Vol] 136 mmol/L 133-145 [facility] White blood cell (WBC) count Ordered By: Buzz Rainey on 03-29-2025 WBC (Bld) [#/Vol] 4.3 10*3/uL Low 4.4-11.0 [facility] CNOVon 2025 CNOV Office Visit (CARDWS ) FLEX KLINE ([id number]) 1940 M Date Time Provider Department 03/05/25 11:00 AM HARJINDER JONES During your visit today, we recorded the following information about you: Pulse Respiration Blood pressure Weight 82/minute 16/minute 138/60 81.6 kg Height 1.765 m Harjinder Jones MD 2025 12:16 PM Signed Harjinder Jones MD Interventional Cardiology [address] [place] [address] [phone] Chief Complaint Patient presents with: Follow Up: 6 week follow up, c/o chest pain HISTORY OF PRESENT ILLNESS: Mr. Kline is a 85 year old male seen in my office today for follow-up patient had a prior history of severe saxman coronary artery disease with prior history of [...] meals. FOL (more content not included)... Normal [facility] CNOVon 03-02-2025 CNOV Office Visit (AGCARDPOB) FLEX KLINE ([id number]) 1940 Date Time Provider Department 03/02/25 10:20 AM KWAN ESTRELLA During your visit today, we recorded the following information about you: Pulse Blood pressure Weight 69/minute 113/63 81.6 kg Kwan Estrella MD 03/02/2025 11:18 AM Signed [facility] [place] [facility] SECTION OF CARDIAC PACING and ELECTROPHYSIOLOGY OUTPATIENT VISIT DATE March 02, 2025 OUTPATIENT VISIT TYPE NEW PRIMARY CARE PHYSICIAN: Vincent Espinosa [address] [place] [address] REFERRING PHYSICIAN: Harjinder Jones [address] [place] [address], [address] [facility] [address] chief complaint on file. HISTORY OF PRESENT [...] currently a resident at [facility]. Had a recent UTI in 10/2024, still [...] fibrillation ECG 11/29/23 - SR 77 bpm RI 210 QRS 102 QT/c 364 411 PVC [...] rare (<1.0%). Isolated VEs were rare (<1.0%, 15970), VE Couplets were rare (<1.0%, 63), and [...] central nervous system(341.8) Peripheral vascular disease, unspecified ([facility]) Type II or unspecified type diabetes [...] No Fa (more content not included)... Normal [facility] ECG B/O W INTERP (MED OFFICE )on 03-02-2025 .Sinus rhythm 68 bpm RI 264ms First degree AVB QRS 96ms QT/c 398/423ms nl Qrs morphology and early repol change in 2.3.aVF [facility] Absolute lymphocyte countOrd ered By: Buzz Rainey on 03-01-2025 Lymphocytes Auto (Unsp spec) [#/Vol] 0.88 10*3/uL 0.83-4.51 [facility] Absolute neutrophil countOrd ered By: Buzz Rainey on 03-01-2025 Neutrophils (Bld) [#/Vol] 4.2 10*3/uL 2.0-7.7 [facility] Anion gap in Serum or Plasma Ordered By: Buzz Rainey on 03-01-2025 Anion gap [Moles/Vol] 13 mmol/L 5-15 [facility] Automated lymphocyte count a s percentage of total leukocytesOrdered By: Buzz Rainey on 03-01-2025 Lymphocytes/100 WBC Auto (Unsp spec) 14.9 % Low 19-41 [facility] BUN/creatinine ratioOrdered By: Buzz Brainmklana on 03-01-2025 Urea nitrogen/Creatinine [Mass ratio] 37.1 mg/mg High 10-20 [facility] Basophil percentageOrdered B y: Buzz Rainey on 03-01-2025 Basophils/100 WBC (Bld) 0.7 % 0-1 [facility] Carbon dioxide, total [Moles /volume] in Central venous bloodOrdered By: [facility]rella De La Pazmklana on 03-01-2025 CO2 [Moles/Vol] 21.5 mmol/L 21.0-32.0 [facility] Chloride assayOrdered By: Alexandra kenestrella De La Pazmklana on 03-01-2025 Chloride [Moles/Vol] 104 mmol/L 98-108 [facility] Eosinophil percentageOrdered By: yumikooak cityestrella Brainmklana on 03-01-2025 Eosinophils/100 WBC (Bld) 3.7 % 0-5 [facility] Erythrocyte distribution wid th ratioOrdered By: [facility]rella Brainmklana on 03-01-2025 Erythrocyte distribution width (RBC) [Ratio] 11.9 % 11.6-14.6 [facility] Erythrocyte distribution wid th standard deviationOrdered By: [facility]rella Brainmklana on 03-01-2025 Erythrocyte distribution width (RBC) [Ratio] 43.6 fl 35.1-43.9 [facility] Glomerular filtration rate ( GFR) estimation/1.73 sq m using serum, plasma, or whole bOrdered By: Alexandrayumikoarthur Brainmklana on 03-01-2025 GFR/1.73 sq M.predicted among non-blacks MDRD (S/P/Bld) [Vol rate/Area] 61 mL/min/{1.73_m2} >60 [facility] Comment on above: mL/min/1.73m2 CKD-EP I Creatinine Equation (2020) Hematocrit Auto (Bld) [Volum e fraction]Ordered By: Buzz Rainey on 03-01-2025 Hematocrit (Bld) [Volume fraction] 40.7 % 40-54 [facility] Hemoglobin measurementOrdere d By: Buzz Rainey on 03-01-2025 Hemoglobin (Bld) [Mass/Vol] 13.9 g/dL 13.0-16.5 [facility] Immature granulocytes/100 WB C Auto (Bld)Ordered By: Buzz Rainey on 03-01-2025 Immature granulocytes/100 WBC (Bld) 0.200 % 0.0-0.9 [facility] Comment on above: IG% - Immature Granu locytes (promyelocytes, myelocytes and metamyelocytes) > 1% indicates that a LEFT SHIFT is Present. MCV (mean corpuscular volume ) determinationOrdered By: Buzz Rainey on 03-01-2025 MCV (RBC) [Entitic vol] 99.5 fL High 80-94 [facility] Mean corpuscular hemoglobin (MCH) determinationOrdered By: Buzz Rainey on 03-01-2025 MCH (RBC) [Entitic mass] 34.0 pg High 27.0-32.0 [facility] Mean corpuscular hemoglobin concentration (MCHC) determinationOrdered By: Buzz Rainey on 03-01-2025 MCHC (RBC) [Mass/Vol] 34.2 g/dL 32-36 [facility] Mean platelet volume determi nationOrdered By: Buzz Rainey on 03-01-2025 Platelet mean volume (Bld) [Entitic vol] 10.4 fL 6.2-12.0 [facility] Monocyte percentageOrdered B y: Buzz Rainey on 03-01-2025 Monocytes/100 WBC (Bld) 8.5 % 0-10 [facility] Neutrophil percentageOrdered By: Buzz Rainey on 03-01-2025 Neutrophils/100 WBC (Bld) 72.0 % High 47-70 [facility] Nucleated red blood cell per centageOrdered By: Buzz Rainey on 03-01-2025 Nucleated RBC/100 WBC (Bld) [Ratio] 0 % 0-5 [facility] Platelet countOrdered By: Alexandra Rainey on 03-01-2025 Platelets (Bld) [#/Vol] 213 10*3/uL 150-450 [facility] Potassium measurement (mass/ volume)Ordered By: Buzz Rainey on 03-01-2025 Potassium (Unsp spec) [Mass/Vol] 4.5 mmol/L 3.3-5.1 [facility] RBC Auto (Bld) [#/Vol]Ordere d By: Buzz Rainey on 03-01-2025 RBC (Bld) [#/Vol] 4.09 10*6/uL Low 4.6-6.2 [facility] Serum creatinine measurement (mass/volume)Ordered By: Buzz Rainey on 03-01-2025 Creatinine [Mass/Vol] 1.19 mg/dL 0.70-1.20 [facility] Serum glucose measurement (m ass/volume)Ordered By: Buzz Rainey on 03-01-2025 Glucose [Mass/Vol] 152 mg/dL High 70-99 [facility] Serum or plasma calcium jesenia urement (mass/volume)Ordered By: Buzz Rainey on 03-01-2025 Calcium [Mass/Vol] 9.5 mg/dL 7.6-11.0 [facility] Serum or plasma urea nitroge n measurement (mass/volume)Ordered By: Buzz Rainey on 03-01-2025 Urea nitrogen [Mass/Vol] 44 mg/dL High 4-19 [facility] Sodium levelOrdered By: Otilia Rainey on 03-01-2025 Sodium [Moles/Vol] 138 mmol/L 133-145 [facility] White blood cell (WBC) count Ordered By: Buzz Rainey on 03-01-2025 WBC (Bld) [#/Vol] 5.9 10*3/uL 4.4-11.0 [facility] Bilirubin Test strip Ql (U)O rdered By: Buzz Rainey on 02-28-2025 Bilirubin Ql (U) Negative Negative [facility] Ketones Test strip Ql (U)Ord ered By: Buzz Rainey on 02-28-2025 Ketones Ql (U) Negative Negative [facility] Nitrite Test strip Ql (U)Ord ered By: Buzz Rainey on 02-28-2025 Nitrite Ql (U) Negative Negative [facility] Protein Test strip Ql (U)Ord ered By: Buzz Rainey on 02-28-2025 Protein Ql (U) 15 mg/dl High Negative [facility] Urine clarityOrdered By: Franklin Rainey on 02-28-2025 Clarity (U) Clear Clear [facility] Urine color determinationOrd ered By: Buzz Rainey on 02-28-2025 Color (U) Straw Yellow [facility] Urine cultureOrdered By: Franklin Rainey on 02-28-2025 Bacteria identified Cx Nom (U) Positive Abnormal [facility] Urine glucose detectionOrder ed By: Buzz Rainey on 02-28-2025 Glucose Ql (U) 1000 mg/dl High Normal [facility] Urine leukocyte esterase det ection by dipstickOrdered By: Buzz Rainey on 02-28-2025 Leukocyte esterase Test strip Ql (U) 25 /ul High Negative [facility] Urine pHOrdered By: Mallorie Rainey on 02-28-2025 pH (U) 6.0 [pH] 5.0 - 8.0 [facility] Urine specific gravity measu rementOrdered By: Buzz Rainey on 02-28-2025 Specific gravity (U) [Rel density] 1.020 1.002-1.030 [facility] Urine urobilinogen measureme ntOrdered By: Buzz Rainey on 02-28-2025 Urobilinogen Ql (U) Normal mg/dl Normal [facility] Endocrinology Visit Reporton 02-27-2025 Endocrinology Visit Report [facility] [address] [place] [address] OFFICE VISIT Date of Service: 02/27/25 MR#: [id number] Acct: [id number] Name: FLEX KLINE Rep #: [id number] : 1940 Provider: Arina Renee Age/Sex: 84/M Location: [facility] Status: Signed Intake Vital Signs 01/09/25 08:36 02/27/25 10:56 Height 5 ft 11 [...] tablet 75 mg PO DAILY Heart 07/20/18 0407/16 History aspirin 81 mg tablet,delayed 81 mg [...] you fallen in the past year?: Yes [facility] Medical History Hyposmolality and/or hyponatremia Mononeuritis of [...] to secondary diabetes 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 Normal [facility] Absolute lymphocyte countOrd ered By: Buzz Rainey on 01-31-2025 Lymphocytes Auto (Unsp spec) [#/Vol] 0.83 10*3/uL 0.83-4.51 [facility] Absolute neutrophil countOrd ered By: Buzz Rainey on 01-31-2025 Neutrophils (Bld) [#/Vol] 3.3 10*3/uL 2.0-7.7 [facility] Anion gap in Serum or Plasma Ordered By: Buzz Rainey on 01-31-2025 Anion gap [Moles/Vol] 14 mmol/L 5-15 [facility] Automated lymphocyte count a s percentage of total leukocytesOrdered By: Buzz Rainey on 01-31-2025 Lymphocytes/100 WBC Auto (Unsp spec) 16.0 % Low 19-41 [facility] BUN/creatinine ratioOrdered By: Buzz Rainey on 01-31-2025 Urea nitrogen/Creatinine [Mass ratio] 28.0 mg/mg High 10-20 [facility] Basophil percentageOrdered B y: Buzz Rainey on 01-31-2025 Basophils/100 WBC (Bld) 0.4 % 0-1 [facility] Bilirubin directOrdered By: Buzz Rainey on 01-31-2025 Bilirubin.direct [Mass/Vol] 0.22 mg/dL 0.00-0.30 [facility] Bilirubin, totalOrdered By: Buzz Rainey on 01-31-2025 Bilirubin [Mass/Vol] 0.47 mg/dL 0.00-1.30 [facility] Carbon dioxide, total [Moles /volume] in Central venous bloodOrdered By: Buzz Rainey on 01-31-2025 CO2 [Moles/Vol] 21.6 mmol/L 21.0-32.0 [facility] Chloride assayOrdered By: Alexandra Rainey on 01-31-2025 Chloride [Moles/Vol] 101 mmol/L 98-108 [facility] Eosinophil percentageOrdered By: Buzz Rainey on 01-31-2025 Eosinophils/100 WBC (Bld) 6.2 % High 0-5 [facility] Erythrocyte distribution wid th (RBC) [Ratio]Ordered By: Buzz Rainey on 01-31-2025 Erythrocyte distribution width (RBC) [Entitic vol] 45.0 fL High 35.1-43.9 [facility] Erythrocyte distribution wid th ratioOrdered By: Buzz Rainey on 01-31-2025 Erythrocyte distribution width (RBC) [Ratio] 12.1 % 11.6-14.6 [facility] Erythrocyte distribution wid th standard deviationOrdered By: Buzz Rainey on 01-31-2025 Erythrocyte distribution width (RBC) [Ratio] 45.0 fl High 35.1-43.9 [facility] GFR/1.73 sq M.predicted [place] g non-blacks MDRD (S/P/Bld) [Vol rate/Area]Ordered By: Buzz Rainey on 01-31-2025 Estimated GFR (MDRD) Non-Af Amer 49 Low >60 [facility] Comment on above: mL/min/1.73m2 CKD-EP I Creatinine Equation (2020) Glomerular filtration rate ( GFR) estimation/1.73 sq m using serum, plasma, or whole bOrdered By: Buzz Rainey on 01-31-2025 GFR/1.73 sq M.predicted among non-blacks MDRD (S/P/Bld) [Vol rate/Area] 49 mL/min/{1.73_m2} Low >60 [facility] Comment on above: mL/min/1.73m2 CKD-EP I Creatinine Equation (2020) Hematocrit Auto (Bld) [Volum e fraction]Ordered By: Buzz Rainey on 01-31-2025 Hematocrit (Bld) [Volume fraction] 39.9 % Low 40-54 [facility] Hemoglobin A1c percentageOrd ered By: Buzz Rainey on 01-31-2025 HbA1c (Bld) [Mass fraction] 7.9 % >5.7 [facility] Hemoglobin measurementOrdere d By: Buzz Rainey on 01-31-2025 Hemoglobin (Bld) [Mass/Vol] 13.8 g/dL 13.0-16.5 [facility] Immature granulocytes/100 WB C Auto (Bld)Ordered By: Buzz Rainey on 01-31-2025 Immature granulocytes/100 WBC (Bld) 0.200 % 0.0-0.9 [facility] Comment on above: IG% - Immature Granu locytes (promyelocytes, myelocytes and metamyelocytes) > 1% indicates that a LEFT SHIFT is Present. Laboratory - Chemistry and C hemistry - challengeOrdered By: Buzz Rainey on 01-31-2025 AST [Catalytic activity/Vol] 32 U/L <38 [facility] Lymphocytes Auto (Unsp spec) [#/Vol]Ordered By: Buzz Rainey on 01-31-2025 Lymphocytes (Bld) [#/Vol] 0.83 10*3/uL 0.83-4.51 [facility] Lymphocytes/100 WBC Auto (Un sp spec)Ordered By: Buzz Rainey on 01-31-2025 Lymphocytes/100 WBC (Bld) 16.0 % Low 19-41 [facility] MCV (mean corpuscular volume ) determinationOrdered By: Buzz Rainey on 01-31-2025 MCV (RBC) [Entitic vol] 99.8 fL High 80-94 [facility] Magnesium (Unsp spec) [Mass/ Vol]Ordered By: Buzz Rainey on 01-31-2025 Magnesium [Mass/Vol] 2.2 mg/dL 1.5-2.2 [facility] Magnesium measurement (mass/ volume)Ordered By: Buzz Rainey on 01-31-2025 Magnesium (Unsp spec) [Mass/Vol] 2.2 mg/dL 1.5-2.2 [facility] Mean corpuscular hemoglobin (MCH) determinationOrdered By: Buzz Rainey on 01-31-2025 MCH (RBC) [Entitic mass] 34.5 pg High 27.0-32.0 [facility] Mean corpuscular hemoglobin concentration (MCHC) determinationOrdered By: Buzz Brainmklana on 01-31-2025 MCHC (RBC) [Mass/Vol] 34.6 g/dL 32-36 [facility] Mean platelet volume determi nationOrdered By: Buzz Brainmklana on 01-31-2025 Platelet mean volume (Bld) [Entitic vol] 10.6 fL 6.2-12.0 [facility] Monocyte percentageOrdered B y: Buzz Brainlavelle on 01-31-2025 Monocytes/100 WBC (Bld) 12.7 % High 0-10 [facility] Neutrophil percentageOrdered By: Buzz Brainmklana on 01-31-2025 Neutrophils/100 WBC (Bld) 64.5 % 47-70 [facility] Nucleated red blood cell per centageOrdered By: Buzz Brainlavelle on 01-31-2025 Nucleated RBC/100 WBC (Bld) [Ratio] 0 % 0-5 [facility] Platelet countOrdered By: Alexandra tamanna Brainlavelle on 01-31-2025 Platelets (Bld) [#/Vol] 218 10*3/uL 150-450 [facility] Potassium (Unsp spec) [Mass/ Vol]Ordered By: Buzz Brainmklana on 01-31-2025 Potassium [Moles/Vol] 5.3 mmol/L High 3.3-5.1 [facility] Potassium measurement (mass/ volume)Ordered By: Alexandrayumikoarthur Brianmklana on 01-31-2025 Potassium (Unsp spec) [Mass/Vol] 5.3 mmol/L High 3.3-5.1 [facility] RBC Auto (Bld) [#/Vol]Ordere d By: Buzz Brainmklana on 01-31-2025 RBC (Bld) [#/Vol] 4.00 10*6/uL Low 4.6-6.2 [facility] Serum creatinine measurement (mass/volume)Ordered By: Alexandrayumikoarthur Brainmklana on 01-31-2025 Creatinine [Mass/Vol] 1.43 mg/dL High 0.70-1.20 [facility] Serum globulin measurementOr dered By: Buzz Rainey on 01-31-2025 Globulin (S) [Mass/Vol] 2.8 g/dL 2.2-4.2 [facility] Serum glucose measurement (m ass/volume)Ordered By: Buzz Rainey on 01-31-2025 Glucose [Mass/Vol] 265 mg/dL High 70-99 [facility] Serum or plasma alanine nix otransferase (ALT) measurementOrdered By: Buzz Rainey on 01-31-2025 ALT [Catalytic activity/Vol] 35 U/L <47 [facility] Serum or plasma albumin jesenia urement (mass/volume)Ordered By: Buzz Rainey on 01-31-2025 Albumin [Mass/Vol] 4.3 g/dL 3.4-4.8 [facility] Serum or plasma alkaline radha sphatase measurementOrdered By: Buzz Rainey on 01-31-2025 ALP [Catalytic activity/Vol] 83 U/L 40-129 [facility] Serum or plasma calcium jesenia urement (mass/volume)Ordered By: Buzz Rainey on 01-31-2025 Calcium [Mass/Vol] 9.3 mg/dL 7.6-11.0 [facility] Serum or plasma urea nitroge n measurement (mass/volume)Ordered By: Buzz Rainey on 01-31-2025 Urea nitrogen [Mass/Vol] 40 mg/dL High 4-19 [facility] Sodium levelOrdered By: Otilia Rainey on 01-31-2025 Sodium [Moles/Vol] 137 mmol/L 133-145 [facility] Total proteinOrdered By: Franklin Rainey on 01-31-2025 Protein [Mass/Vol] 7.1 g/dL 5.9-8.4 [facility] Vitamin D, 25-hydroxyOrdered By: Buzz Rainey on 01-31-2025 Vitamin D 25-Hydroxy 38.8 ng/mL 30-100 [facility] Comment on above: Vitamin D StatusDefi ciency: <20 ng/mL (50nmol/L)Insufficiency: 20-30 ng/mL (50-75 nmol/L)Sufficiency: 30-100 ng/mL (75-250 nmol/L)Toxicity: >100 ng/mL (>250 nmol/L) White blood cell (WBC) count Ordered By: Buzz Rainey on 01-31-2025 WBC (Bld) [#/Vol] 5.2 10*3/uL 4.4-11.0 [facility] CBC panel Auto (Bld)on 01-22 Erythrocyte distribution width (RBC) [Ratio] 12.4 % 11.5 - 15.0 % [facility] Hematocrit (Bld) [Volume fraction] 37.7 % Low 39.0 - 51.0 % [facility] Hemoglobin (Bld) [Mass/Vol] 12.8 g/dL Low 13.0 - 17.0 g/dL [facility] Interpretation and review of laboratory results Abnormal [facility] MCH (RBC) [Entitic mass] 33.3 pg 26.0 - 34.0 pg [facility] MCHC (RBC) [Mass/Vol] 34 g/dL 30.5 - 36.0 g/dL [facility] MCV (RBC) [Entitic vol] 98.2 fL 80.0 - 100.0 fL [facility] Nucleated RBC (Bld) [#/Vol] NINF [facility] Platelet mean volume (Bld) [Entitic vol] 9.4 fL 9.0 - 12.7 fL [facility] Platelets (Bld) [#/Vol] 216 10*3/uL [facility] RBC (Bld) [#/Vol] 3.84 10*6/uL Low 4.20 - 6.0 0 m/uL [facility] WBC (Bld) [#/Vol] 5.09 10*3/uL [facility] Erythrocyte distribution width (RBC) [Ratio] 12.4 % Normal 11.5-15.0 [facility] Comment on above: Order Comment: Speci men Type: BLOOD SPECIMEN Ordering Facility: [facility] Address: [address] [place] [address] Performed By: #### 5 8410-2 #### [facility] [id number] [address] [place] [address] [place] Hematocrit (Bld) [Volume fraction] 37.7 % Low 39.0-51.0 [facility] Comment on above: Order Comment: Speci men Type: BLOOD SPECIMEN Ordering Facility: [facility] Address: [address] [place] [address] Performed By: #### 5 8410-2 #### [facility] [id number] [address] [place] [address] [place] Hemoglobin (Bld) [Mass/Vol] 12.8 g/dL Low 13.0-17.0 [facility] Comment on above: Order Comment: Speci men Type: BLOOD SPECIMEN Ordering Facility: [facility] Address: [address] [place] [address] Performed By: #### 5 8410-2 #### [facility] [id number] [address] [place] [address] [place] MCH (RBC) [Entitic mass] 33.3 pg Normal 26.0-34.0 [facility] Comment on above: Order Comment: Speci men Type: BLOOD SPECIMEN Ordering Facility: [facility] Address: [address] [place] [address] Performed By: #### 5 8410-2 #### [facility] [id number] [address] [place] [address] [place] MCHC (RBC) [Mass/Vol] 34.0 g/dL Normal 30.5-36.0 [facility] Comment on above: Order Comment: Speci men Type: BLOOD SPECIMEN Ordering Facility: [facility] Address: [address] [place] [address] Performed By: #### 5 8410-2 #### [facility] [id number] [address] [place] [address] [place] MCV (RBC) [Entitic vol] 98.2 fL Normal 80.0-100.0 [facility] Comment on above: Order Comment: Speci men Type: BLOOD SPECIMEN Ordering Facility: [facility] Address: [address] [place] [address] Performed By: #### 5 8410-2 #### [facility] CLIA [id number] [address] [place] [address] [place] Nucleated RBC (Bld) [#/Vol] 10*3/uL Normal <0.01 [facility] Comment on above: Order Comment: Speci men Type: BLOOD SPECIMEN Ordering Facility: [facility] Address: [address] [place] [address] Performed By: #### 5 8410-2 #### [facility] CLIA [id number] [address] [place] [address] [place] Platelet mean volume (Bld) [Entitic vol] 9.4 fL Normal 9.0-12.7 [facility] Comment on above: Order Comment: Speci men Type: BLOOD SPECIMEN Ordering Facility: [facility] Address: [address] [place] [address] Performed By: #### 5 8410-2 #### [facility] CLIA [id number] [address] [place] [address] [place] Platelets (Bld) [#/Vol] 216 10*3/uL Normal 150-400 [facility] Comment on above: Order Comment: Speci men Type: BLOOD SPECIMEN Ordering Facility: [facility] Address: [address] [place] [address] Performed By: #### 5 8410-2 #### [facility] CLIA [id number] [address] [place] [address] [place] RBC (Bld) [#/Vol] 3.84 10*6/uL Low 4.20-6.00 [facility] Comment on above: Order Comment: Speci men Type: BLOOD SPECIMEN Ordering Facility: [facility] Address: [address] [place] [address] Performed By: #### 5 8410-2 #### [facility] CLIA [id number] [address] [place] [address] [facility] [place] WBC (Bld) [#/Vol] 5.09 10*3/uL Normal 3.70-11.00 [facility] Comment on above: Order Comment: Speci men Type: BLOOD SPECIMEN [facility] Address: [address] [place] [address] Performed By: #### 5 8410-2 #### [facility] CLIA [id number] [address] [place] [address] OF [place] CNOVon 01-22-2025 CNOV Office Visit (CARDWS ) FLEX KLINE ([id number]) 1940 M Date Time Provider Department 01/22/25 1:40 PM HARJINDER JONES During your visit today, we recorded the following information about you: Pulse Respiration Blood pressure Weight 91/minute 14/minute 156/70 79.8 kg Height 1.765 m Harjinder Jones MD 01/22/2025 2:39 PM Signed Harjinder Jones MD Interventional Cardiology [address] [place] [address] [id number] Chief Complaint Patient presents with: Follow Up: [...] inflammatory demyelinating polyneuropathy) (HCC) Coronary atherosclerosis Diabetes (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) Type II or unspecified type diabetes [...] Take one(1) (more content not included)... Normal [facility] Comprehensive metabolic 2000 panelOrdered By: Jasmina Young on 01-22-2025 Albumin [Mass/Vol] 4.1 g/dL 3.9 - 4.9 g/dL [facility] ALP [Catalytic activity/Vol] 76 U/L 38 - 113 U/L [facility] ALT [Catalytic activity/Vol] 20 U/L 10 - 54 U/L [facility] Anion gap [Moles/Vol] 9 mmol/L 8 - 15 mmol/L [facility] AST [Catalytic activity/Vol] 19 U/L 14 - 40 U/L [facility] Bilirubin [Mass/Vol] 0.6 mg/dL 0.2 - 1 .3 mg/dL [facility] Calcium [Mass/Vol] 9.3 mg/dL 8.5 - 10. 2 mg/dL [facility] Chloride [Moles/Vol] 103 mmol/L 98 - 10 7 mmol/L [facility] CO2 [Moles/Vol] 27 mmol/L 22 - 30 mmol/L [facility] Creatinine [Mass/Vol] 1.32 mg/dL High 0.73 - 1.22 mg/dL [facility] GFR/1.73 sq M.predicted among non-blacks MDRD (S/P/Bld) [Vol rate/Area] 54 mL/min/{1.73_m2} Low - PINF [facility] Comment on above: Estimated Glomerular Filtration [...] 171 mg/dL High 74 - 99 mg/dL [facility] Comment on above: The [place] Diabete s Association (ADA) provides guidance for [...] Standards of Medical Care in Diabetes 2016, [place] Diabetes Association. Diabetes Care. 2016.39(Suppl 1). Interpretation and review of laboratory results Abnormal [facility] Potassium [Moles/Vol] 5.1 mmol/L 3.7 - 5.1 mmol/L [facility] Protein [Mass/Vol] 6.7 g/dL 6.3 - 8.0 g/dL [facility] Sodium [Moles/Vol] 139 mmol/L 136 - 144 mmol/L [facility] Urea nitrogen [Mass/Vol] 30 mg/dL High 9 - 24 mg/dL [facility] Comprehensive metabolic 2000 panelon 01-22-2025 Albumin [Mass/Vol] 4.1 g/dL Normal 3.9-4.9 [facility] Comment on above: Order Comment: Speci men Type: BLOOD SPECIMEN Ordering Facility: [facility] Address: [address] [place] [address] Performed By: #### 2 4323-8 #### [facility] CLIA [id number] [address] [place] [address] [place] ALP [Catalytic activity/Vol] 76 U/L Normal 38-113 [facility] Comment on above: Order Comment: Speci men Type: BLOOD SPECIMEN Ordering Facility: [facility] Address: [address] [place] [address] Performed By: #### 2 4323-8 #### [facility] CLIA [id number] [address] [place] [address] [place] ALT [Catalytic activity/Vol] 20 U/L Normal 10-54 [facility] Comment on above: Order Comment: Speci men Type: BLOOD SPECIMEN Ordering Facility: [facility] Address: [address] [place] [address] Performed By: #### 2 4323-8 #### [facility] CLIA [id number] [address] [place] [address] [place] Anion gap [Moles/Vol] 9 mmol/L Normal 8-15 [facility] Comment on above: Order Comment: Speci men Type: BLOOD SPECIMEN Ordering Facility: [facility] Address: [address] [place] [address] Performed By: #### 2 4323-8 #### [facility] CLIA [id number] [address] [place] [address] [place] AST [Catalytic activity/Vol] 19 U/L Normal 14-40 [facility] Comment on above: Order Comment: Speci men Type: BLOOD SPECIMEN Ordering Facility: [facility] Address: [address] [place] [address] Performed By: #### 2 4323-8 #### [facility] CLIA [id number] [address] [place] [address] [place] Bilirubin [Mass/Vol] 0.6 mg/dL Normal 0.2-1.3 [facility] Comment on above: Order Comment: Speci men Type: BLOOD SPECIMEN Ordering Facility: [facility] Address: [address] [place] [address] Performed By: #### 2 4323-8 #### [facility] CLIA [id number] [address] [place] [address] [place] Calcium [Mass/Vol] 9.3 mg/dL Normal 8.5-10.2 [facility] Comment on above: Order Comment: Speci men Type: BLOOD SPECIMEN Ordering Facility: [facility] Address: [address] [place] [address] Performed By: #### 2 4323-8 #### [facility] CLIA [id number] [address] [place] [address] [place] Chloride [Moles/Vol] 103 mmol/L Normal 98-107 [facility] Comment on above: Order Comment: Speci men Type: BLOOD SPECIMEN Ordering Facility: [facility] Address: [address] [place] [address] Performed By: #### 2 4323-8 #### [facility] CLIA [id number] [address] [place] [address] [place] CO2 [Moles/Vol] 27 mmol/L Normal 22-30 [facility] Comment on above: Order Comment: Speci men Type: BLOOD SPECIMEN Ordering Facility: [facility] Address: [address] [place] [address] Performed By: #### 2 4323-8 #### [facility] CLIA [id number] [address] [place] [address] [place] Creatinine [Mass/Vol] 1.32 mg/dL High 0.73-1.22 [facility] Comment on above: Order Comment: Krystyna funk Type: BLOOD SPECIMEN Ordering Facility: [facility] Address: [address] [place], [place] [address] Performed By: #### 2 4323-8 #### [facility] [id number] [address] [place] [address] [place] Creatinine and Glomerular filtration rate.predicted panel (S/P/Bld) 54 mL/min/1.73m??? Low >=60 [facility] Comment on above: Order Comment: Krystyna funk Type: BLOOD SPECIMEN Ordering Facility: [facility] Address: [address] [place] [address] Result Comment: Beatrice mated Glomerular Filtration Rate [...] GFR. Performed By: #### 2 4323-8 #### [facility] [id number] [address] [place] [address] [place] Glucose [Mass/Vol] 171 mg/dL High 74-99 [facility] Comment on above: Order Comment: Krystyna funk Type: BLOOD SPECIMEN Ordering Facility: [facility] Address: [address] [place] [address] Result Comment: The [place] Diabetes Association (ADA) provides guidance for cutoff [...] Standards of Medical Care in Diabetes 2016, [place] Diabetes Association. Diabetes Care. 2016.39(Suppl 1). Performed By: #### 2 4323-8 #### [facility] CLIA [id number] [address] [place] [address] [place] Potassium [Moles/Vol] 5.1 mmol/L Normal 3.7-5.1 [facility] Comment on above: Order Comment: Speci men Type: BLOOD SPECIMEN Ordering Facility: [facility] Address: [address] [place] [address] Performed By: #### 2 4323-8 #### [facility] CLIA [id number] [address] [place] [address] [place] Protein [Mass/Vol] 6.7 g/dL Normal 6.3-8.0 [facility] Comment on above: Order Comment: Speci men Type: BLOOD SPECIMEN Ordering Facility: [facility] Address: [address] [place] [address] Performed By: #### 2 4323-8 #### [facility] [id number] [address] [place] [address] [place] Sodium [Moles/Vol] 139 mmol/L Normal 136-144 [facility] Comment on above: Order Comment: Speci men Type: BLOOD SPECIMEN Ordering Facility: [facility] Address: [address] [place] [address] Performed By: #### 2 4323-8 #### [facility] [id number] [address] [place] [address] [place] Urea nitrogen [Mass/Vol] 30 mg/dL High 9-24 [facility] Comment on above: Order Comment: Speci men Type: BLOOD SPECIMEN Ordering Facility: [facility] Address: [facility] [place] [id number] Performed By: #### 2 4323-8 #### [facility] CLIA [id number] [address] [place] [address] [place] NT-proBNP SerPl-mCncon 01-22 Natriuretic peptide.B prohormone N-Terminal [Mass/Vol] 437 pg/mL Normal <450 [facility] Comment on above: Order Comment: Speci men Type: BLOOD SPECIMEN Ordering Facility: [facility] Address: [address] [place] [address] Performed By: #### 3 3762-6, 3016-3 #### [facility] CLIA [id number] [address] [place] TSH SerPl-aCncon 01-22-2025 TSH Qn 5.250 m[IU]/L High 0.270-4.200 [facility] Comment on above: Order Comment: Speci men Type: BLOOD SPECIMEN Ordering Facility: [facility] Address: [address] [place] [address] Performed By: #### 3 3762-6, 3016-3 #### [facility] CLIA [id number] [address] [place] Absolute lymphocyte countOrd ered By: Buzz Rainey on 01-04-2025 Lymphocytes Auto (Unsp spec) [#/Vol] 0.86 10*3/uL 0.83-4.51 [facility] Absolute neutrophil countOrd ered By: Buzz Rainey on 01-04-2025 Neutrophils (Bld) [#/Vol] 2.9 10*3/uL 2.0-7.7 [facility] Automated lymphocyte count a s percentage of total leukocytesOrdered By: Buzz Rainey on 01-04-2025 Lymphocytes/100 WBC Auto (Unsp spec) 17.8 % Low 19-41 [facility] Basophil percentageOrdered B y: Buzz Rainey on 01-04-2025 Basophils/100 WBC (Bld) 0.6 % 0-1 [facility] Blood urea nitrogen (BUN)/cr eatinine ratioOrdered By: Buzz Rainey on 01-04-2025 Urea nitrogen/Creatinine [Mass ratio] 19.2 mg/mg 10-20 [facility] Carbon dioxide measurementOr dered By: Buzz Rainey on 01-04-2025 CO2 [Moles/Vol] 30.0 mmol/L 21.0-32.0 [facility] Chloride measurementOrdered By: Buzz Rainey on 01-04-2025 Chloride [Moles/Vol] 107 mmol/L 98-107 [facility] Eosinophil percentageOrdered By: Buzz Rainey on 01-04-2025 Eosinophils/100 WBC (Bld) 7.7 % High 0-5 [facility] Erythrocyte distribution wid th (RBC) [Ratio]Ordered By: [employer] city[employer]rella Rainey on 01-04-2025 Erythrocyte distribution width (RBC) [Entitic vol] 46.5 fL High 35.1-43.9 [facility] Erythrocyte distribution wid th ratioOrdered By: Buzz Rainey on 01-04-2025 Erythrocyte distribution width (RBC) [Ratio] 12.4 % 11.6-14.6 [facility] Erythrocyte distribution wid th standard deviationOrdered By: Buzz Rainey on 01-04-2025 Erythrocyte distribution width (RBC) [Ratio] 46.5 fl High 35.1-43.9 [facility] Estimated glomerular filtrat ion rate (GFR) AmericanOrdered By: Buzz Rainey on 01-04-2025 Estimated GFR (MDRD) Amer 57 mL/min Low >60 [facility] Comment on above: GFR Calc Glomerular filtration rate ( GFR) estimationOrdered By: Buzz Rainey on 01-04-2025 Estimated GFR (MDRD) Non-Af Amer 47 mL/min Low >60 [facility] Comment on above: Non- GFR Calc GFR/1.73 sq M.predicted among non-blacks MDRD (S/P/Bld) [Vol rate/Area] 47 mL/min/{1.73_m2} Low >60 [facility] Comment on above: Non- GFR Calc Glucose measurementOrdered B y: Buzz Rainey on 01-04-2025 Glucose [Mass/Vol] 225 mg/dL High 74-106 [facility] Comment on above: Glucose result great er than or equal to 200 mg/dLsuggests DIABETES MELLITUS per A.D.A. criteria. Hematocrit Auto (Bld) [Volum e fraction]Ordered By: Buzz Rainey on 01-04-2025 Hematocrit (Bld) [Volume fraction] 39.9 % Low 40-54 [facility] Hemoglobin measurementOrdere d By: Buzz Rainey on 01-04-2025 Hemoglobin (Bld) [Mass/Vol] 13.1 g/dL 13.0-16.5 [facility] Immature granulocytes/100 WB C Auto (Bld)Ordered By: Buzz Rainey on 01-04-2025 Immature granulocytes/100 WBC (Bld) 0.200 % 0.0-0.9 [facility] Comment on above: IG% - Immature Granu locytes (promyelocytes, myelocytes and metamyelocytes) > 1% indicates that a LEFT SHIFT is Present. Lymphocytes Auto (Unsp spec) [#/Vol]Ordered By: Buzz Rainey on 01-04-2025 Lymphocytes (Bld) [#/Vol] 0.86 10*3/uL 0.83-4.51 [facility] Lymphocytes/100 WBC Auto (Un sp spec)Ordered By: Buzz Rainey on 01-04-2025 Lymphocytes/100 WBC (Bld) 17.8 % Low 19-41 [facility] MCV (mean corpuscular volume ) determinationOrdered By: Buzz Rainey on 01-04-2025 MCV (RBC) [Entitic vol] 101.0 fL High 80-94 [facility] Mean corpuscular hemoglobin (MCH) determinationOrdered By: Buzz Rainey on 01-04-2025 MCH (RBC) [Entitic mass] 33.2 pg High 27.0-32.0 [facility] Mean corpuscular hemoglobin concentration (MCHC) determinationOrdered By: Buzz Rainey on 01-04-2025 MCHC (RBC) [Mass/Vol] 32.8 g/dL 32-36 [facility] Mean platelet volume determi nationOrdered By: Buzz Rainey on 01-04-2025 Platelet mean volume (Bld) [Entitic vol] 10.0 fL 6.2-12.0 [facility] Monocyte percentageOrdered B y: Otiliahueyestrella De La Pazmklana on 01-04-2025 Monocytes/100 WBC (Bld) 12.8 % High 0-10 [facility] Neutrophil percentageOrdered By: Otiliahueyestrella De La Pazmklana on 01-04-2025 Neutrophils/100 WBC (Bld) 60.9 % 47-70 [facility] Nucleated red blood cell per centageOrdered By: Buzz Rainey on 01-04-2025 Nucleated RBC/100 WBC (Bld) [Ratio] 0 % 0-5 [facility] Platelet countOrdered By: Alexandra yumikoarthur Rainey on 01-04-2025 Platelets (Bld) [#/Vol] 217 10*3/uL 150-450 [facility] Potassium measurementOrdered By: Buzz Rainey on 01-04-2025 Potassium [Moles/Vol] 4.5 mmol/L 3.5-5.1 [facility] Comment on above: Slight Hemolysis, Re sult may be falsely increased. RBC Auto (Bld) [#/Vol]Ordere d By: Buzz Rainey on 01-04-2025 RBC (Bld) [#/Vol] 3.95 10*6/uL Low 4.6-6.2 [facility] Serum anion gap measurementO rdered By: Buzz Rainey on 01-04-2025 Anion gap [Moles/Vol] 4 mmol/L Low 5-15 [facility] Serum or plasma calcium jesenia urement (mass/volume)Ordered By: Buzz Rainey on 01-04-2025 Calcium [Mass/Vol] 8.9 mg/dL 8.5-10.1 [facility] Serum or plasma creatinine m easurement (mass/volume)Ordered By: Buzz Rainey on 01-04-2025 Creatinine [Mass/Vol] 1.51 mg/dL High 0.70-1.30 [facility] Comment on above: The validity of the calculated GFR & GFRAA in patients over 70 years has not been determined. Clinical correlation is essential. Serum or plasma urea nitroge n measurement (mass/volume)Ordered By: Buzz Rainey on 01-04-2025 Urea nitrogen [Mass/Vol] 29 mg/dL High 7-18 [facility] Sodium levelOrdered By: Otliia gibson Brainmklana on 01-04-2025 Sodium [Moles/Vol] 141 mmol/L 136-145 [facility] White blood cell (WBC) count Ordered By: Buzz De La Pazmklana on 01-04-2025 WBC (Bld) [#/Vol] 4.8 10*3/uL 4.4-11.0 [facility] Absolute lymphocyte countOrd ered By: Buzz De La Pazmklana on 12-07-2024 Lymphocytes Auto (Unsp spec) [#/Vol] 1.34 10*3/uL 0.83-4.51 [facility] Absolute neutrophil countOrd ered By: Buzz De La Pazmklana on 12-07-2024 Neutrophils (Bld) [#/Vol] 3.2 10*3/uL 2.0-7.7 [facility] Automated lymphocyte count a s percentage of total leukocytesOrdered By: Buzz Rainey on 12-07-2024 Lymphocytes/100 WBC Auto (Unsp spec) 24.8 % 19-41 [facility] Basophil percentageOrdered B y: Buzz De La Pazmkalna on 12-07-2024 Basophils/100 WBC (Bld) 0.6 % 0-1 [facility] Blood urea nitrogen (BUN)/cr eatinine ratioOrdered By: Buzz Rainey on 12-07-2024 Urea nitrogen/Creatinine [Mass ratio] 18.5 mg/mg 10-20 [facility] Carbon dioxide measurementOr dered By: Buzz Rainey on 12-07-2024 CO2 [Moles/Vol] 27.0 mmol/L 21.0-32.0 [facility] Chloride measurementOrdered By: Buzz Rainey on 12-07-2024 Chloride [Moles/Vol] 106 mmol/L 98-107 [facility] Eosinophil percentageOrdered By: Buzz Rainey on 12-07-2024 Eosinophils/100 WBC (Bld) 5.5 % High 0-5 [facility] Erythrocyte distribution wid th (RBC) [Ratio]Ordered By: Buzz Rainey on 12-07-2024 Erythrocyte distribution width (RBC) [Entitic vol] 46.2 fL High 35.1-43.9 [facility] Erythrocyte distribution wid th ratioOrdered By: Buzz Rainey on 12-07-2024 Erythrocyte distribution width (RBC) [Ratio] 12.3 % 11.6-14.6 [facility] Erythrocyte distribution wid th standard deviationOrdered By: Buzz Rainey on 12-07-2024 Erythrocyte distribution width (RBC) [Ratio] 46.2 fl High 35.1-43.9 [facility] Estimated glomerular filtrat ion rate (GFR) AmericanOrdered By: Buzz Rainey on 12-07-2024 Estimated GFR (MDRD) Amer 59 mL/min Low >60 [facility] Comment on above: GFR Calc Glomerular filtration rate ( GFR) estimationOrdered By: Buzz Rainey on 12-07-2024 Estimated GFR (MDRD) Non-Af Amer 49 mL/min Low >60 [facility] Comment on above: Non- GFR Calc GFR/1.73 sq M.predicted among non-blacks MDRD (S/P/Bld) [Vol rate/Area] 49 mL/min/{1.73_m2} Low >60 [facility] Comment on above: Non- GFR Calc Glucose measurementOrdered B y: Buzz Rainey on 12-07-2024 Glucose [Mass/Vol] 129 mg/dL High 74-106 [facility] Comment on above: Fasting Glucose resu lt greater than or equal to 126 mg/dL suggests DIABETES MELLITUS per A.D.A. criteria. Hematocrit Auto (Bld) [Volum e fraction]Ordered By: Buzz Rainey on 12-07-2024 Hematocrit (Bld) [Volume fraction] 40.6 % 40-54 [facility] Hemoglobin measurementOrdere d By: Buzz Rainey on 12-07-2024 Hemoglobin (Bld) [Mass/Vol] 13.4 g/dL 13.0-16.5 [facility] Immature granulocytes/100 WB C Auto (Bld)Ordered By: Buzz Rainey on 12-07-2024 Immature granulocytes/100 WBC (Bld) 0.200 % 0.0-0.9 [facility] Comment on above: IG% - Immature Granu locytes (promyelocytes, myelocytes and metamyelocytes) > 1% indicates that a LEFT SHIFT is Present. Lymphocytes Auto (Unsp spec) [#/Vol]Ordered By: yumikooak cityestrella Rainey on 12-07-2024 Lymphocytes (Bld) [#/Vol] 1.34 10*3/uL 0.83-4.51 [facility] Lymphocytes/100 WBC Auto (Un sp spec)Ordered By: tamanna Rainey on 12-07-2024 Lymphocytes/100 WBC (Bld) 24.8 % 19-41 [facility] MCV (mean corpuscular volume ) determinationOrdered By: tamanna Rainey on 12-07-2024 MCV (RBC) [Entitic vol] 102.8 fL High 80-94 [facility] Mean corpuscular hemoglobin (MCH) determinationOrdered By: tamanna Rainey on 12-07-2024 MCH (RBC) [Entitic mass] 33.9 pg High 27.0-32.0 [facility] Mean corpuscular hemoglobin concentration (MCHC) determinationOrdered By: yumikooak cityestrella Rainey on 12-07-2024 MCHC (RBC) [Mass/Vol] 33.0 g/dL 32-36 [facility] Mean platelet volume determi nationOrdered By: yumikoo[place] cityestrella Rainey on 12-07-2024 Platelet mean volume (Bld) [Entitic vol] 10.0 fL 6.2-12.0 [facility] Monocyte percentageOrdered B y: yumikoo[place] cityestrella Rainey on 12-07-2024 Monocytes/100 WBC (Bld) 9.4 % 0-10 [facility] Neutrophil percentageOrdered By: yumikooak cityestrella Rainey on 12-07-2024 Neutrophils/100 WBC (Bld) 59.5 % 47-70 [facility] Nucleated red blood cell per centageOrdered By: tamanna Rainey on 12-07-2024 Nucleated RBC/100 WBC (Bld) [Ratio] 0 % 0-5 [facility] Platelet countOrdered By: Alexandra Rainey on 12-07-2024 Platelets (Bld) [#/Vol] 217 10*3/uL 150-450 [facility] Potassium measurementOrdered By: Buzz Rainey on 12-07-2024 Potassium [Moles/Vol] 4.8 mmol/L 3.5-5.1 [facility] RBC Auto (Bld) [#/Vol]Ordere d By: Buzz Rainey on 12-07-2024 RBC (Bld) [#/Vol] 3.95 10*6/uL Low 4.6-6.2 [facility] Serum anion gap measurementO rdered By: Buzz Rainey on 12-07-2024 Anion gap [Moles/Vol] 5 mmol/L 5-15 [facility] Serum or plasma calcium jesenia urement (mass/volume)Ordered By: Buzz Rainey on 12-07-2024 Calcium [Mass/Vol] 9.1 mg/dL 8.5-10.1 [facility] Serum or plasma creatinine m easurement (mass/volume)Ordered By: Buzz Rainey on 12-07-2024 Creatinine [Mass/Vol] 1.46 mg/dL High 0.70-1.30 [facility] Comment on above: The validity of the calculated GFR & GFRAA in patients over 70 years has not been determined. Clinical correlation is essential. Serum or plasma urea nitroge n measurement (mass/volume)Ordered By: Buzz Rainey on 12-07-2024 Urea nitrogen [Mass/Vol] 27 mg/dL High 7-18 [facility] Sodium levelOrdered By: Otilia baileyjovan Redd on 12-07-2024 Sodium [Moles/Vol] 138 mmol/L 136-145 [facility] White blood cell (WBC) count Ordered By: Buzz Rainey on 12-07-2024 WBC (Bld) [#/Vol] 5.4 10*3/uL 4.4-11.0 [facility] Absolute lymphocyte countOrd ered By: Buzz Rainey on 11-30-2024 Lymphocytes Auto (Unsp spec) [#/Vol] 1.16 10*3/uL 0.83-4.51 [facility] Absolute neutrophil countOrd ered By: Buzz Rainey on 11-30-2024 Neutrophils (Bld) [#/Vol] 2.8 10*3/uL 2.0-7.7 [facility] Automated lymphocyte count a s percentage of total leukocytesOrdered By: Buzz Rainey on 11-30-2024 Lymphocytes/100 WBC Auto (Unsp spec) 23.3 % 19-41 [facility] Basophil percentageOrdered B y: Buzz Rainey on 11-30-2024 Basophils/100 WBC (Bld) 0.6 % 0-1 [facility] Blood urea nitrogen (BUN)/cr eatinine ratioOrdered By: Buzz Rainey on 11-30-2024 Urea nitrogen/Creatinine [Mass ratio] 21.4 mg/mg High 10-20 [facility] Carbon dioxide measurementOr dered By: Buzz Rainey on 11-30-2024 CO2 [Moles/Vol] 28.0 mmol/L 21.0-32.0 [facility] Cardiology Visit Reporton Cardiology Visit Report [facility] [address] [place] [address]. [address] [place] [address] OFFICE VISIT Date of Service: 11/30/24 MR#: [id number] Acct: [id number] Name: FLEX KLINE Rep #: [id number] : 1940 Provider: Dr. Margie Gary MD Age/Sex: 84/M Location: 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 Normal [facility] Chloride measurementOrdered By: Buzz Rainey on 11-30-2024 Chloride [Moles/Vol] 105 mmol/L 98-107 [facility] Eosinophil percentageOrdered By: Buzz Rainey on 11-30-2024 Eosinophils/100 WBC (Bld) 6.6 % High 0-5 [facility] Erythrocyte distribution wid th (RBC) [Ratio]Ordered By: Buzz Rainey on 11-30-2024 Erythrocyte distribution width (RBC) [Entitic vol] 46.9 fL High 35.1-43.9 [facility] Erythrocyte distribution wid th ratioOrdered By: Buzz Rainey on 11-30-2024 Erythrocyte distribution width (RBC) [Ratio] 12.4 % 11.6-14.6 [facility] Erythrocyte distribution wid th standard deviationOrdered By: Buzz Rainey on 11-30-2024 Erythrocyte distribution width (RBC) [Ratio] 46.9 fl High 35.1-43.9 [facility] Estimated glomerular filtrat ion rate (GFR) AmericanOrdered By: Buzz Rainey on 11-30-2024 Estimated GFR (MDRD) Amer 62 mL/min >60 [facility] Comment on above: GFR Calc Glomerular filtration rate ( GFR) estimationOrdered By: Buzz Rainey on 11-30-2024 Estimated GFR (MDRD) Non-Af Amer 52 mL/min Low >60 [facility] Comment on above: Non- GFR Calc GFR/1.73 sq M.predicted among non-blacks MDRD (S/P/Bld) [Vol rate/Area] 52 mL/min/{1.73_m2} Low >60 [facility] Comment on above: Non- GFR Calc Glucose measurementOrdered B y: Buzz Rainey on 11-30-2024 Glucose [Mass/Vol] 119 mg/dL High 74-106 [facility] Comment on above: Fasting Glucose resu lt from 100 to 125 mg/dL suggests IMPAIRED HOMEOSTASIS per A.D.A. criteria. Hematocrit Auto (Bld) [Volum e fraction]Ordered By: Buzz Rainey on 11-30-2024 Hematocrit (Bld) [Volume fraction] 40.2 % 40-54 [facility] Hemoglobin measurementOrdere d By: Buzz Rainey on 11-30-2024 Hemoglobin (Bld) [Mass/Vol] 13.2 g/dL 13.0-16.5 [facility] Immature granulocytes/100 WB C Auto (Bld)Ordered By: Buzz Rainey on 11-30-2024 Immature granulocytes/100 WBC (Bld) 0.400 % 0.0-0.9 [facility] Comment on above: IG% - Immature Granu locytes (promyelocytes, myelocytes and metamyelocytes) > 1% indicates that a LEFT SHIFT is Present. Lymphocytes Auto (Unsp spec) [#/Vol]Ordered By: tamanna Rainey on 11-30-2024 Lymphocytes (Bld) [#/Vol] 1.16 10*3/uL 0.83-4.51 [facility] Lymphocytes/100 WBC Auto (Un sp spec)Ordered By: Buzz Rainey on 11-30-2024 Lymphocytes/100 WBC (Bld) 23.3 % 19-41 [facility] MCV (mean corpuscular volume ) determinationOrdered By: Buzz Rainey on 11-30-2024 MCV (RBC) [Entitic vol] 103.1 fL High 80-94 [facility] Mean corpuscular hemoglobin (MCH) determinationOrdered By: tamanna Rainey on 11-30-2024 MCH (RBC) [Entitic mass] 33.8 pg High 27.0-32.0 [facility] Mean corpuscular hemoglobin concentration (MCHC) determinationOrdered By: Buzz Rainey on 11-30-2024 MCHC (RBC) [Mass/Vol] 32.8 g/dL 32-36 [facility] Mean platelet volume determi nationOrdered By: tamanna Rainey on 11-30-2024 Platelet mean volume (Bld) [Entitic vol] 10.2 fL 6.2-12.0 [facility] Monocyte percentageOrdered B y: Buzz Rainey on 11-30-2024 Monocytes/100 WBC (Bld) 11.9 % High 0-10 [facility] Neutrophil percentageOrdered By: Buzz Rainey on 11-30-2024 Neutrophils/100 WBC (Bld) 57.2 % 47-70 [facility] Nucleated red blood cell per centageOrdered By: Buzz Rainey on 11-30-2024 Nucleated RBC/100 WBC (Bld) [Ratio] 0 % 0-5 [facility] Platelet countOrdered By: Alexandra Rainey on 11-30-2024 Platelets (Bld) [#/Vol] 212 10*3/uL 150-450 [facility] Potassium measurementOrdered By: Buzz Rainey on 11-30-2024 Potassium [Moles/Vol] 4.4 mmol/L 3.5-5.1 [facility] RBC Auto (Bld) [#/Vol]Ordere d By: Buzz Rainey on 11-30-2024 RBC (Bld) [#/Vol] 3.90 10*6/uL Low 4.6-6.2 [facility] Serum anion gap measurementO rdered By: Buzz Rainey on 11-30-2024 Anion gap [Moles/Vol] 6 mmol/L 5-15 [facility] Serum or plasma calcium jesenia urement (mass/volume)Ordered By: Buzz Rainey on 11-30-2024 Calcium [Mass/Vol] 8.8 mg/dL 8.5-10.1 [facility] Serum or plasma creatinine m easurement (mass/volume)Ordered By: Buzz Rainey on 11-30-2024 Creatinine [Mass/Vol] 1.40 mg/dL High 0.70-1.30 [facility] Comment on above: The validity of the calculated GFR & GFRAA in patients over 70 years has not been determined. Clinical correlation is essential. Serum or plasma urea nitroge n measurement (mass/volume)Ordered By: Buzz Rainey on 11-30-2024 Urea nitrogen [Mass/Vol] 30 mg/dL High 7-18 [facility] Sodium levelOrdered By: Otilia Rainey on 11-30-2024 Sodium [Moles/Vol] 139 mmol/L 136-145 [facility] White blood cell (WBC) count Ordered By: Buzz Rainey on 11-30-2024 WBC (Bld) [#/Vol] 5.0 10*3/uL 4.4-11.0 [facility] Absolute neutrophil countOrd ered By: Buzz Rainey on 11-23-2024 Neutrophils (Bld) [#/Vol] 3.4 10*3/uL 2.0-7.7 [facility] Basophil percentageOrdered B y: Buzz Rainey on 11-23-2024 Basophils/100 WBC (Bld) 0.5 % 0-1 [facility] Blood urea nitrogen (BUN)/cr eatinine ratioOrdered By: Buzz Rainey on 11-23-2024 Urea nitrogen/Creatinine [Mass ratio] 19.8 mg/mg 10-20 [facility] Carbon dioxide measurementOr dered By: Buzz Rainey on 11-23-2024 CO2 [Moles/Vol] 28.0 mmol/L 21.0-32.0 [facility] Chloride measurementOrdered By: Buzz Rainey on 11-23-2024 Chloride [Moles/Vol] 104 mmol/L 98-107 [facility] Eosinophil percentageOrdered By: Buzz Rainey on 11-23-2024 Eosinophils/100 WBC (Bld) 6.0 % High 0-5 [facility] Erythrocyte distribution wid th (RBC) [Ratio]Ordered By: Buzz Rainey on 11-23-2024 Erythrocyte distribution width (RBC) [Entitic vol] 43.7 fL 35.1-43.9 [facility] Erythrocyte distribution wid th ratioOrdered By: Buzz Rainey on 11-23-2024 Erythrocyte distribution width (RBC) [Ratio] 11.9 % 11.6-14.6 [facility] Estimated glomerular filtrat ion rate (GFR) AmericanOrdered By: Buzz Rainey on 11-23-2024 Estimated GFR (MDRD) Amer 67 mL/min >60 [facility] Comment on above: GFR Calc Glomerular filtration rate ( GFR) estimationOrdered By: Buzz Rainey on 11-23-2024 Estimated GFR (MDRD) Non-Af Amer 56 mL/min Low >60 [facility] Comment on above: Non- GFR Calc Glucose measurementOrdered B y: Buzz Rainey on 11-23-2024 Glucose [Mass/Vol] 119 mg/dL High 74-106 [facility] Comment on above: Fasting Glucose resu lt from 100 to 125 mg/dL suggests IMPAIRED HOMEOSTASIS per A.D.A. criteria. Hematocrit Auto (Bld) [Volum e fraction]Ordered By: Buzz Rainey on 11-23-2024 Hematocrit (Bld) [Volume fraction] 40.4 % 40-54 [facility] Hemoglobin measurementOrdere d By: Buzz Rainey on 11-23-2024 Hemoglobin (Bld) [Mass/Vol] 13.8 g/dL 13.0-16.5 [facility] Immature granulocytes/100 WB C Auto (Bld)Ordered By: tamanna Rainey on 11-23-2024 Immature granulocytes/100 WBC (Bld) 0.400 % 0.0-0.9 [facility] Comment on above: IG% - Immature Granu locytes (promyelocytes, myelocytes and metamyelocytes) > 1% indicates that a LEFT SHIFT is Present. Lymphocytes Auto (Unsp spec) [#/Vol]Ordered By: Buzz Rainey on 11-23-2024 Lymphocytes (Bld) [#/Vol] 1.22 10*3/uL 0.83-4.51 [facility] Lymphocytes/100 WBC Auto (Un sp spec)Ordered By: Buzz Rainey on 11-23-2024 Lymphocytes/100 WBC (Bld) 21.4 % 19-41 [facility] MCV (mean corpuscular volume ) determinationOrdered By: Buzz Rainey on 11-23-2024 MCV (RBC) [Entitic vol] 99.5 fL High 80-94 [facility] Mean corpuscular hemoglobin (MCH) determinationOrdered By: Buzz Rainey on 11-23-2024 MCH (RBC) [Entitic mass] 34.0 pg High 27.0-32.0 [facility] Mean corpuscular hemoglobin concentration (MCHC) determinationOrdered By: Buzz Rainey on 11-23-2024 MCHC (RBC) [Mass/Vol] 34.2 g/dL 32-36 [facility] Mean platelet volume determi nationOrdered By: Buzz Rainey on 11-23-2024 Platelet mean volume (Bld) [Entitic vol] 10.2 fL 6.2-12.0 [facility] Monocyte percentageOrdered B y: Buzz Rainey on 11-23-2024 Monocytes/100 WBC (Bld) 12.4 % High 0-10 [facility] Neutrophil percentageOrdered By: Buzz Rainey on 11-23-2024 Neutrophils/100 WBC (Bld) 59.3 % 47-70 [facility] Nucleated red blood cell per centageOrdered By: Buzz Rainey on 11-23-2024 Nucleated RBC/100 WBC (Bld) [Ratio] 0 % 0-5 [facility] Platelet countOrdered By: Alexandra Rainey on 11-23-2024 Platelets (Bld) [#/Vol] 219 10*3/uL 150-450 [facility] Potassium measurementOrdered By: Buzz Rainey on 11-23-2024 Potassium [Moles/Vol] 4.7 mmol/L 3.5-5.1 [facility] RBC Auto (Bld) [#/Vol]Ordere d By: Buzz Rainey on 11-23-2024 RBC (Bld) [#/Vol] 4.06 10*6/uL Low 4.6-6.2 [facility] Serum anion gap measurementO rdered By: Buzz Rainey on 11-23-2024 Anion gap [Moles/Vol] 5 mmol/L 5-15 [facility] Serum or plasma calcium jesenia urement (mass/volume)Ordered By: Buzz Rainey on 11-23-2024 Calcium [Mass/Vol] 9.2 mg/dL 8.5-10.1 [facility] Serum or plasma creatinine m easurement (mass/volume)Ordered By: Buzz Rainey on 11-23-2024 Creatinine [Mass/Vol] 1.31 mg/dL High 0.70-1.30 [facility] Comment on above: The validity of the calculated GFR & GFRAA in patients over 70 years has not been determined. Clinical correlation is essential. Serum or plasma urea nitroge n measurement (mass/volume)Ordered By: Buzz Rainey on 11-23-2024 Urea nitrogen [Mass/Vol] 26 mg/dL High 7-18 [facility] Sodium levelOrdered By: Otilia Rainey on 11-23-2024 Sodium [Moles/Vol] 136 mmol/L 136-145 [facility] White blood cell (WBC) count Ordered By: Buzz Rainey on 11-23-2024 WBC (Bld) [#/Vol] 5.7 10*3/uL 4.4-11.0 [facility] Absolute neutrophil countOrd ered By: Buzz Rainey on 11-16-2024 Neutrophils (Bld) [#/Vol] 3.9 10*3/uL 2.0-7.7 [facility] Basophil percentageOrdered B y: Buzz Rainey on 11-16-2024 Basophils/100 WBC (Bld) 0.7 % 0-1 [facility] Blood urea nitrogen (BUN)/cr eatinine ratioOrdered By: Buzz Rainey on 11-16-2024 Urea nitrogen/Creatinine [Mass ratio] 18.8 mg/mg 10-20 [facility] Carbon dioxide measurementOr dered By: Buzz Rainey on 11-16-2024 CO2 [Moles/Vol] 25.0 mmol/L 21.0-32.0 [facility] Chloride measurementOrdered By: Buzz Rainey on 11-16-2024 Chloride [Moles/Vol] 105 mmol/L 98-107 [facility] Eosinophil percentageOrdered By: Buzz Rainey on 11-16-2024 Eosinophils/100 WBC (Bld) 6.1 % High 0-5 [facility] Erythrocyte distribution wid th (RBC) [Ratio]Ordered By: Buzz Rianey on 11-16-2024 Erythrocyte distribution width (RBC) [Entitic vol] 43.8 fL 35.1-43.9 [facility] Erythrocyte distribution wid th ratioOrdered By: Buzz Rainey on 11-16-2024 Erythrocyte distribution width (RBC) [Ratio] 11.9 % 11.6-14.6 [facility] Estimated glomerular filtrat ion rate (GFR) AmericanOrdered By: Buzz Rainey on 11-16-2024 Estimated GFR (MDRD) Amer 56 mL/min Low >60 [facility] Comment on above: GFR Calc Glomerular filtration rate ( GFR) estimationOrdered By: Buzz Rainey on 11-16-2024 Estimated GFR (MDRD) Non-Af Amer 46 mL/min Low >60 [facility] Comment on above: Non- GFR Calc Glucose measurementOrdered B y: Buzz Rainey on 11-16-2024 Glucose [Mass/Vol] 130 mg/dL High 74-106 [facility] Comment on above: Fasting Glucose resu lt greater than or equal to 126 mg/dL suggests DIABETES MELLITUS per A.D.A. criteria. Hematocrit Auto (Bld) [Volum e fraction]Ordered By: Buzz Rainey on 11-16-2024 Hematocrit (Bld) [Volume fraction] 37.6 % Low 40-54 [facility] Hemoglobin measurementOrdere d By: Buzz Rainey on 11-16-2024 Hemoglobin (Bld) [Mass/Vol] 12.7 g/dL Low 13.0-16.5 [facility] Immature granulocytes/100 WB C Auto (Bld)Ordered By: Buzz Rainey on 11-16-2024 Immature granulocytes/100 WBC (Bld) 0.200 % 0.0-0.9 [facility] Comment on above: IG% - Immature Granu locytes (promyelocytes, myelocytes and metamyelocytes) > 1% indicates that a LEFT SHIFT is Present. Lymphocytes Auto (Unsp spec) [#/Vol]Ordered By: Buzz Rainey on 11-16-2024 Lymphocytes (Bld) [#/Vol] 1.20 10*3/uL 0.83-4.51 [facility] Lymphocytes/100 WBC Auto (Un sp spec)Ordered By: Buzz Rainey on 11-16-2024 Lymphocytes/100 WBC (Bld) 19.8 % 19-41 [facility] MCV (mean corpuscular volume ) determinationOrdered By: Buzz Rainey on 11-16-2024 MCV (RBC) [Entitic vol] 100.5 fL High 80-94 [facility] Mean corpuscular hemoglobin (MCH) determinationOrdered By: Efyumikoongbe Brainghe on 11-16-2024 MCH (RBC) [Entitic mass] 34.0 pg High 27.0-32.0 [facility] Mean corpuscular hemoglobin concentration (MCHC) determinationOrdered By: Eftamanna Rainey on 11-16-2024 MCHC (RBC) [Mass/Vol] 33.8 g/dL 32-36 [facility] Mean platelet volume determi nationOrdered By: Efyumikoongbe Brainghe on 11-16-2024 Platelet mean volume (Bld) [Entitic vol] 10.0 fL 6.2-12.0 [facility] Monocyte percentageOrdered B y: Efewongbe Rahe on 11-16-2024 Monocytes/100 WBC (Bld) 9.1 % 0-10 [facility] Neutrophil percentageOrdered By: Efyumikoongbe Brainmke on 11-16-2024 Neutrophils/100 WBC (Bld) 64.1 % 47-70 [facility] Nucleated red blood cell per centageOrdered By: Efyumikoongbe Rahe on 11-16-2024 Nucleated RBC/100 WBC (Bld) [Ratio] 0 % 0-5 [facility] Platelet countOrdered By: Ef yumikoongbe Rahe on 11-16-2024 Platelets (Bld) [#/Vol] 210 10*3/uL 150-450 [facility] Potassium measurementOrdered By: Buzz Rainey on 11-16-2024 Potassium [Moles/Vol] 4.9 mmol/L 3.5-5.1 [facility] Comment on above: Slight Hemolysis, Re sult may be falsely increased. RBC Auto (Bld) [#/Vol]Ordere d By: Efyumikoongbe Rahe on 11-16-2024 RBC (Bld) [#/Vol] 3.74 10*6/uL Low 4.6-6.2 [facility] Serum anion gap measurementO rdered By: Alexandratamanna De La Pazmklana on 11-16-2024 Anion gap [Moles/Vol] 5 mmol/L 5-15 [facility] Serum or plasma calcium jesenia urement (mass/volume)Ordered By: Buzz De La Pazmklana on 11-16-2024 Calcium [Mass/Vol] 9.0 mg/dL 8.5-10.1 [facility] Serum or plasma creatinine m easurement (mass/volume)Ordered By: Buzz De La Pazmklana on 11-16-2024 Creatinine [Mass/Vol] 1.54 mg/dL High 0.70-1.30 [facility] Comment on above: The validity of the calculated GFR & GFRAA in patients over 70 years has not been determined. Clinical correlation is essential. Serum or plasma urea nitroge n measurement (mass/volume)Ordered By: Buzz Rainey on 11-16-2024 Urea nitrogen [Mass/Vol] 29 mg/dL High 7-18 [facility] Sodium levelOrdered By: Otilia arthur Brainmklana on 11-16-2024 Sodium [Moles/Vol] 135 mmol/L Low 136-145 [facility] White blood cell (WBC) count Ordered By: Buzz De La Pazmklana on 11-16-2024 WBC (Bld) [#/Vol] 6.1 10*3/uL 4.4-11.0 [facility] Absolute neutrophil countOrd ered By: Buzz De La Pazmklana on 11-09-2024 Neutrophils (Bld) [#/Vol] 3.1 10*3/uL 2.0-7.7 [facility] Basophil percentageOrdered B y: Alexandratamanna De La Pazmklana on 11-09-2024 Basophils/100 WBC (Bld) 0.8 % 0-1 [facility] Blood urea nitrogen (BUN)/cr eatinine ratioOrdered By: Buzz De La Pazmklana on 11-09-2024 Urea nitrogen/Creatinine [Mass ratio] 21.8 mg/mg High 10-20 [facility] Carbon dioxide measurementOr dered By: Buzz Rainey on 11-09-2024 CO2 [Moles/Vol] 27.0 mmol/L 21.0-32.0 [facility] Chloride measurementOrdered By: Buzz Rainey on 11-09-2024 Chloride [Moles/Vol] 105 mmol/L 98-107 [facility] Eosinophil percentageOrdered By: Buzz Rainey on 11-09-2024 Eosinophils/100 WBC (Bld) 9.1 % High 0-5 [facility] Erythrocyte distribution wid th (RBC) [Ratio]Ordered By: Buzz Rainey on 11-09-2024 Erythrocyte distribution width (RBC) [Entitic vol] 43.2 fL 35.1-43.9 [facility] Erythrocyte distribution wid th ratioOrdered By: Buzz Rainey on 11-09-2024 Erythrocyte distribution width (RBC) [Ratio] 11.8 % 11.6-14.6 [facility] Estimated glomerular filtrat ion rate (GFR) AmericanOrdered By: Buzz Rainey on 11-09-2024 Estimated GFR (MDRD) Amer 72 mL/min >60 [facility] Comment on above: GFR Calc Glomerular filtration rate ( GFR) estimationOrdered By: Buzz Rainey on 11-09-2024 Estimated GFR (MDRD) Non-Af Amer 59 mL/min Low >60 [facility] Comment on above: Non- GFR Calc Glucose measurementOrdered B y: Buzz Rainey on 11-09-2024 Glucose [Mass/Vol] 145 mg/dL High 74-106 [facility] Comment on above: Fasting Glucose resu lt greater than or equal to 126 mg/dL suggests DIABETES MELLITUS per A.D.A. criteria. Hematocrit Auto (Bld) [Volum e fraction]Ordered By: Buzz Rainey on 11-09-2024 Hematocrit (Bld) [Volume fraction] 38.3 % Low 40-54 [facility] Hemoglobin measurementOrdere d By: Buzz Rainey on 11-09-2024 Hemoglobin (Bld) [Mass/Vol] 12.9 g/dL Low 13.0-16.5 [facility] Immature granulocytes/100 WB C Auto (Bld)Ordered By: Buzz Rainey on 11-09-2024 Immature granulocytes/100 WBC (Bld) 0.400 % 0.0-0.9 [facility] Comment on above: IG% - Immature Granu locytes (promyelocytes, myelocytes and metamyelocytes) > 1% indicates that a LEFT SHIFT is Present. Lymphocytes Auto (Unsp spec) [#/Vol]Ordered By: Buzz Rainey on 11-09-2024 Lymphocytes (Bld) [#/Vol] 1.10 10*3/uL 0.83-4.51 [facility] Lymphocytes/100 WBC Auto (Un sp spec)Ordered By: Buzz Rainey on 11-09-2024 Lymphocytes/100 WBC (Bld) 21.3 % 19-41 [facility] MCV (mean corpuscular volume ) determinationOrdered By: Buzz Rainey on 11-09-2024 MCV (RBC) [Entitic vol] 100.3 fL High 80-94 [facility] Mean corpuscular hemoglobin (MCH) determinationOrdered By: yumikooak cityestrella Rainey on 11-09-2024 MCH (RBC) [Entitic mass] 33.8 pg High 27.0-32.0 [facility] Mean corpuscular hemoglobin concentration (MCHC) determinationOrdered By: yumikooak cityestrella Rainey on 11-09-2024 MCHC (RBC) [Mass/Vol] 33.7 g/dL 32-36 [facility] Mean platelet volume determi nationOrdered By: tamanna Rainey on 11-09-2024 Platelet mean volume (Bld) [Entitic vol] 10.0 fL 6.2-12.0 [facility] Monocyte percentageOrdered B y: Buzz Rainey on 11-09-2024 Monocytes/100 WBC (Bld) 9.1 % 0-10 [facility] Neutrophil percentageOrdered By: yumikooak cityestrella Rainey on 11-09-2024 Neutrophils/100 WBC (Bld) 59.3 % 47-70 [facility] Nucleated red blood cell per centageOrdered By: tamanna Rainey on 11-09-2024 Nucleated RBC/100 WBC (Bld) [Ratio] 0 % 0-5 [facility] Platelet countOrdered By: Alexandra kenestrella De La Pazmklana on 11-09-2024 Platelets (Bld) [#/Vol] 225 10*3/uL 150-450 [facility] Potassium measurementOrdered By: Buzz De La Pazmklana on 11-09-2024 Potassium [Moles/Vol] 4.5 mmol/L 3.5-5.1 [facility] RBC Auto (Bld) [#/Vol]Ordere d By: Otiliahueyestrella Rainey on 11-09-2024 RBC (Bld) [#/Vol] 3.82 10*6/uL Low 4.6-6.2 [facility] Serum anion gap measurementO rdered By: Otiliahueyestrella De La Pazmklana on 11-09-2024 Anion gap [Moles/Vol] 4 mmol/L Low 5-15 [facility] Serum or plasma calcium jesenia urement (mass/volume)Ordered By: Buzz Rainey on 11-09-2024 Calcium [Mass/Vol] 8.8 mg/dL 8.5-10.1 [facility] Serum or plasma creatinine m easurement (mass/volume)Ordered By: Buzz Rainey on 11-09-2024 Creatinine [Mass/Vol] 1.24 mg/dL 0.70-1.30 [facility] Comment on above: The validity of the calculated GFR & GFRAA in patients over 70 years has not been determined. Clinical correlation is essential. Serum or plasma urea nitroge n measurement (mass/volume)Ordered By: Buzz Rainey on 11-09-2024 Urea nitrogen [Mass/Vol] 27 mg/dL High 7-18 [facility] Sodium levelOrdered By: Otilia arthur Redd on 11-09-2024 Sodium [Moles/Vol] 136 mmol/L 136-145 [facility] White blood cell (WBC) count Ordered By: Buzz Rainey on 11-09-2024 WBC (Bld) [#/Vol] 5.2 10*3/uL 4.4-11.0 [facility] 48-QA-Rbuoqxh DOrdered By: Lana Rainey on 11-03-2024 Vitamin D 25-Hydroxy 37.4 ng/mL [facility] Comment on above: Vitamin D 25(OH) Sta tus Range Deficiency <20 ng/mL (50nmol/L) Insufficiency 20 - 30 ng/mL (50 - 75 nmol/L) Sufficiency 30 - 100 ng/mL (75 - 250 nmol/L) Toxicity >100 ng/mL (>250 nmol/L) Absolute neutrophil countOrd ered By: Buzz Rainey on 11-03-2024 Neutrophils (Bld) [#/Vol] 3.2 10*3/uL 2.0-7.7 [facility] Albumin to globulin ratioOrd ered By: Buzz Rainey on 11-03-2024 Albumin/Globulin [Mass ratio] 1.0 {ratio} 0.9-2.4 [facility] Basophil percentageOrdered B y: Buzz Rainey on 11-03-2024 Basophils/100 WBC (Bld) 0.4 % 0-1 [facility] Bilirubin, totalOrdered By: Buzz Rainey on 11-03-2024 Bilirubin [Mass/Vol] 0.80 mg/dL 0.20-1.00 [facility] Comment on above: For patients on eltr ombopag therapy, use of Dimension Adair TBIL is not recommended. Blood urea nitrogen (BUN)/cr eatinine ratioOrdered By: Buzz Rainey on 11-03-2024 Urea nitrogen/Creatinine [Mass ratio] 24.5 mg/mg High 10-20 [facility] Carbon dioxide measurementOr dered By: Buzz Rainey on 11-03-2024 CO2 [Moles/Vol] 23.0 mmol/L 21.0-32.0 [facility] Chloride measurementOrdered By: Buzz Rainey on 11-03-2024 Chloride [Moles/Vol] 105 mmol/L 98-107 [facility] Eosinophil percentageOrdered By: Buzz Rainey on 11-03-2024 Eosinophils/100 WBC (Bld) 8.6 % High 0-5 [facility] Erythrocyte distribution wid th (RBC) [Ratio]Ordered By: Buzz Rainey on 11-03-2024 Erythrocyte distribution width (RBC) [Entitic vol] 44.9 fL High 35.1-43.9 [facility] Erythrocyte distribution wid th ratioOrdered By: Alexandrayumikoarthur Brainmklana on 11-03-2024 Erythrocyte distribution width (RBC) [Ratio] 12.0 % 11.6-14.6 [facility] Estimated glomerular filtrat ion rate (GFR) AmericanOrdered By: Buzz Rainey on 11-03-2024 Estimated GFR (MDRD) Amer 61 mL/min >60 [facility] Comment on above: GFR Calc Glomerular filtration rate ( GFR) estimationOrdered By: Buzz Rainey on 11-03-2024 Estimated GFR (MDRD) Non-Af Amer 50 mL/min Low >60 [facility] Comment on above: Non- GFR Calc Glucose measurementOrdered B y: Buzz Rainey on 11-03-2024 Glucose [Mass/Vol] 146 mg/dL High 74-106 [facility] Comment on above: Fasting Glucose resu lt greater than or equal to 126 mg/dL suggests DIABETES MELLITUS per A.D.A. criteria. Hematocrit Auto (Bld) [Volum e fraction]Ordered By: Buzz Rainey on 11-03-2024 Hematocrit (Bld) [Volume fraction] 43.0 % 40-54 [facility] Hemoglobin A1c percentageOrd ered By: Buzz Rainey on 11-03-2024 HbA1c (Bld) [Mass fraction] 6.6 % High 3.8-5.6 [facility] Comment on above: Normal < 5.7 % Predi abetic 5.7 - 6.4 % Diabetic >or= 6.5 % Please note range changes. Hemoglobin measurementOrdere d By: Buzz Rainey on 11-03-2024 Hemoglobin (Bld) [Mass/Vol] 14.7 g/dL 13.0-16.5 [facility] High density lipoprotein (HD L) measurementOrdered By: Buzz Rainey on 11-03-2024 Cholesterol in HDL [Mass/Vol] 57 mg/dL >40 [facility] Comment on above: The drugs N-Acetylcy steine and Metamizole may falsely depress this assay. Reference Range HDL <40 mg/dL Low HDL Cholesterol HDL >or= 60 mg/dL High HDL Cholesterol Immature granulocytes/100 WB C Auto (Bld)Ordered By: Buzz Rainey on 11-03-2024 Immature granulocytes/100 WBC (Bld) 0.200 % 0.0-0.9 [facility] Comment on above: IG% - Immature Granu locytes (promyelocytes, myelocytes and metamyelocytes) > 1% indicates that a LEFT SHIFT is Present. Laboratory - Chemistry and C hemistry - challengeOrdered By: Buzz Rainey on 11-03-2024 AST [Catalytic activity/Vol] 41 U/L High 15-37 [facility] Low density lipoprotein (LDL ) cholesterol measurementOrdered By: Buzz Rainey on 11-03-2024 Cholesterol in LDL [Mass/Vol] 97 mg/dL 0-130 [facility] Lymphocytes Auto (Unsp spec) [#/Vol]Ordered By: Buzz Rainey on 11-03-2024 Lymphocytes (Bld) [#/Vol] 0.87 10*3/uL 0.83-4.51 [facility] Lymphocytes/100 WBC Auto (Un sp spec)Ordered By: Buzz Rainey on 11-03-2024 Lymphocytes/100 WBC (Bld) 17.4 % Low 19-41 [facility] MCV (mean corpuscular volume ) determinationOrdered By: Buzz Rainey on 11-03-2024 MCV (RBC) [Entitic vol] 101.2 fL High 80-94 [facility] Magnesium measurementOrdered By: Buzz Rainey on 11-03-2024 Magnesium [Mass/Vol] 2.2 mg/dL 1.6-2.6 [facility] Mean corpuscular hemoglobin (MCH) determinationOrdered By: Buzz Rainey 11-03-2024 MCH (RBC) [Entitic mass] 34.6 pg High 27.0-32.0 [facility] Mean corpuscular hemoglobin concentration (MCHC) determinationOrdered By: Buzz Rainey 11-03-2024 MCHC (RBC) [Mass/Vol] 34.2 g/dL 32-36 [facility] Mean platelet volume determi nationOrdered By: Buzz Rainey on 11-03-2024 Platelet mean volume (Bld) [Entitic vol] 9.9 fL 6.2-12.0 [facility] Monocyte percentageOrdered B y: Buzz Rainey on 11-03-2024 Monocytes/100 WBC (Bld) 10.4 % High 0-10 [facility] Neutrophil percentageOrdered By: Buzz Rainey on 11-03-2024 Neutrophils/100 WBC (Bld) 63.0 % 47-70 [facility] Nucleated red blood cell per centageOrdered By: Buzz Rainey on 11-03-2024 Nucleated RBC/100 WBC (Bld) [Ratio] 0 % 0-5 [facility] Platelet countOrdered By: Alexandra Rainey on 11-03-2024 Platelets (Bld) [#/Vol] 190 10*3/uL 150-450 [facility] Potassium measurementOrdered By: Buzz Rainey on 11-03-2024 Potassium [Moles/Vol] 5.0 mmol/L 3.5-5.1 [facility] RBC Auto (Bld) [#/Vol]Ordere d By: Buzz Rainey on 11-03-2024 RBC (Bld) [#/Vol] 4.25 10*6/uL Low 4.6-6.2 [facility] Serum anion gap measurementO rdered By: Buzz Rainey on 11-03-2024 Anion gap [Moles/Vol] 8 mmol/L 5-15 [facility] Serum globulin measurementOr dered By: Bzuz Rainey on 11-03-2024 Globulin (S) [Mass/Vol] 3.8 g/dL 2.2-4.2 [facility] Serum or plasma alanine nix otransferase (ALT) measurementOrdered By: Buzz Rainey on 11-03-2024 ALT [Catalytic activity/Vol] 20 U/L 16-61 [facility] Serum or plasma albumin jesenia urement (mass/volume)Ordered By: Buzz Rainey on 11-03-2024 Albumin [Mass/Vol] 3.7 g/dL 3.2-5.0 [facility] Serum or plasma alkaline radha sphatase measurementOrdered By: Buzz Rainey 11-03-2024 ALP [Catalytic activity/Vol] 77 U/L 45-117 [facility] Serum or plasma calcium jesenia urement (mass/volume)Ordered By: Buzz Rainey 11-03-2024 Calcium [Mass/Vol] 9.3 mg/dL 8.5-10.1 [facility] Serum or plasma cholesterol measurement (mass/volume)Ordered By: Buzz Rainey 11-03-2024 Cholesterol [Mass/Vol] 175 mg/dL <200 [facility] Comment on above: <200 mg/dL Desirable 200-240 mg/dL Borderline >240 mg/dL High Risk Serum or plasma creatinine m easurement (mass/volume)Ordered By: Buzz Rainey 11-03-2024 Creatinine [Mass/Vol] 1.43 mg/dL High 0.70-1.30 [facility] Comment on above: The validity of the calculated GFR & GFRAA in patients over 70 years has not been determined. Clinical correlation is essential. Serum or plasma urea nitroge n measurement (mass/volume)Ordered By: Buzz Rainey on 11-03-2024 Urea nitrogen [Mass/Vol] 35 mg/dL High 7-18 [facility] Sodium levelOrdered By: Otilia baileyjovan Redd 11-03-2024 Sodium [Moles/Vol] 136 mmol/L 136-145 [facility] Total proteinOrdered By: Franklin Rainey 11-03-2024 Protein [Mass/Vol] 7.5 g/dL 6.4-8.2 [facility] Triglycerides measurementOrd ered By: Buzz Rainey 11-03-2024 Triglyceride [Mass/Vol] 105 mg/dL <199 [facility] Comment on above: The drugs N-Acetylcy steine and Metamizole may falsely depress this assay.Serum Triglycerides Reference Interval Normal <150 mg/dL Borderline high 150 - 199 mg/dL High 200 - 499 mg/dL Very High > or = 500 mg/dL Very low density lipoprotein (VLDL) cholesterol measurementOrdered By: Buzz Rainey on 11-03-2024 VLDL Cholesterol 21 mg/dL 5-40 [facility] White blood cell (WBC) count Ordered By: Buzz Rainey on 11-03-2024 WBC (Bld) [#/Vol] 5.0 10*3/uL 4.4-11.0 [facility] Bedside Glucoseon 11-01-2024 FINGERSTICK GLU 163 mg/dL High 74-106 [facility] Comment on above: Result Comment: ARNOLD GEMENT OF PATIENT CARE PER NURSING PROTOCOL Performed By: #### L 501.080 ####[facility] [address] [place], [address] FINGERSTICK GLU 212 mg/dL [address] Comment on above: Result Comment: ARNOLD GEMENT OF PATIENT CARE PER NURSING PROTOCOL Performed By: #### L 501.080 #### [facility] [address] [place], [address] FINGERSTICK GLU 125 mg/dL [address] Comment on above: Result Comment: ARNOLD GEMENT OF PATIENT CARE PER NURSING PROTOCOL Performed By: #### L 501.080 #### [facility] [address] [place], [address] Gl[facility] measurement at [facility] deOrdered By: Sung Rhodes on 11-01-2024 Bedside Glucose (Misc Panel) 163 mg/dL High [address] [place] [address] Comment on above: MANAGEMENT OF PATIEN T CARE PER NURSING PROTOCOL Bedside Glucoseon 10-31-2024 FINGERSTICK GLU 125 mg/dL High [address] [place] [address] Comment on above: Result Comment: ARNOLD GEMENT OF PATIENT CARE PER NURSING PROTOCOL Performed By: #### L 501.080 #### [facility] [address] [place], [address] FINGERSTICK GLU 136 mg/dL High [address] [place] [address] Comment on above: Result Comment: ARNOLD GEMENT OF PATIENT CARE PER NURSING PROTOCOL Performed By: #### L 501.080 #### [facility] [address] [place], [address] FINGERSTICK GLU 207 mg/dL High 74-106 [facility] Comment on above: Result Comment: ARNOLD GEMENT OF PATIENT CARE PER NURSING PROTOCOL Performed By: #### L 501.080 ####[facility] [address] [place], [address] FINGERSTICK GLU 297 mg/dL High -106 [facility] Comment on above: Result Comment: ARNOLD GEMENT OF PATIENT CARE PER NURSING PROTOCOL Performed By: #### L 501.080 ####[facility] [address] [place], [address] Bedside Glucoseon 10-30-2024 FINGERSTICK GLU 216 mg/dL High -[address] [place] [address] Comment on above: Result Comment: ARNOLD GEMENT OF PATIENT CARE PER NURSING PROTOCOL Performed By: #### L 501.080 #### [facility] [address] [place], [address] FINGERSTICK GLU 256 mg/dL High -106 [facility] Comment on above: Result Comment: ARNOLD GEMENT OF PATIENT CARE PER NURSING PROTOCOL Performed By: #### L 501.080 ####[facility] [address] [place], [address] FINGERSTICK GLU 197 mg/dL High -106 [facility] Comment on above: Result Comment: ARNOLD GEMENT OF PATIENT CARE PER NURSING PROTOCOL Performed By: #### L 501.080 ####[facility] [address] [place], [address] FINGERSTICK GLU 177 mg/dL High 74-106 [facility] Comment on above: Result Comment: ARNOLD GEMENT OF PATIENT CARE PER NURSING PROTOCOL Performed By: #### L 501.080 #### [facility] [address] [place], [address] FINGERSTICK GLU 188 mg/dL High 74-106 [facility] Comment on above: Result Comment: ARNOLD GEMENT OF PATIENT CARE PER NURSING PROTOCOL Performed By: #### L 501.080 #### [facility] [address] [place], [address] Absolute neutrophil countOrd ered By: Roderick Laurent on 10-29-2024 Neutrophils (Bld) [#/Vol] 3.8 10*3/uL 2.0-7.7 [facility] Albumin to globulin ratioOrd ered By: Roderick Laurent on 10-29-2024 Albumin/Globulin [Mass ratio] 1.2 {ratio} 0.9-2.4 [facility] Basophil percentageOrdered B y: Roderick Laurent on 10-29-2024 Basophils/100 WBC (Bld) 0.7 % 0-1 [facility] Bedside Glucoseon 10-29-2024 FINGERSTICK GLU 255 mg/dL High 74-106 [facility] Comment on above: Result Comment: ARNOLD GEMENT OF PATIENT CARE PER NURSING PROTOCOL Performed By: #### L 501.080 #### [facility] [address] [place], [address] FINGERSTICK GLU 214 mg/dL High 74-106 [facility] Comment on above: Result Comment: ARNOLD GEMENT OF PATIENT CARE PER NURSING PROTOCOL Performed By: #### L 501.080 #### [facility] [address] [place], [address] FINGERSTICK GLU 189 mg/dL High 74-106 [facility] Comment on above: Result Comment: ARNOLD GEMENT OF PATIENT CARE PER NURSING PROTOCOL Performed By: #### L 501.080 ####[facility] [address] [place], [address] FINGERSTICK GLU 161 mg/dL High 74-106 [facility] Comment on above: Result Comment: ARNOLD GEMENT OF PATIENT CARE PER NURSING PROTOCOL Performed By: #### L 501.080 #### [facility] [address] [place], [address] FINGERSTICK GLU 198 mg/dL High 74-106 [facility] Comment on above: Result Comment: ARNOLD GEMENT OF PATIENT CARE PER NURSING PROTOCOL Performed By: #### L 501.080 #### [facility] [address] [place], [address] FINGERSTICK GLU 328 mg/dL High 74-106 [facility] Comment on above: Result Comment: ARNOLD GEMENT OF PATIENT CARE PER NURSING PROTOCOL Performed By: #### L 501.080 #### [facility] [address] [place], [address] Bilirubin, totalOrdered By: Roderick Laurent on 10-29-2024 Bilirubin [Mass/Vol] 0.60 mg/dL 0.20-1.00 [facility] Comment on above: For patients on eltr ombopag therapy, use of Dimension Adair TBIL is not recommended. Blood urea nitrogen (BUN)/cr eatinine ratioOrdered By: Roderick Laurent on 10-29-2024 Urea nitrogen/Creatinine [Mass ratio] 23.6 mg/mg High 10-20 [facility] CBC W/Diff, Automatedon 12-0 Absolute Lymph 0.93 X10 3/uL Normal 0.83-4.51 [facility] Comment on above: Performed By: #### L [id number], L100.0100 ####[facility] [address] [place], [address] Absolute Neut 3.8 X10 3/uL Normal 2.0-7.7 [facility] Comment on above: Performed By: #### L [id number], L100.0100 ####[facility] [address] [place], [address] Basophils/100 WBC (Bld) 0.7 % Normal 0-1 [facility] Comment on above: Performed By: #### L [id number], L100.0100 ####[facility] [address] [place], [address] Eosinophils/100 WBC (Bld) 3.5 % Normal 0-5 [facility] Comment on above: Performed By: #### L [id number], L100.0100 ####[facility] [address] [place], [address] Erythrocyte distribution width (RBC) [Ratio] 11.9 % Normal 11.6-14.6 [facility] Comment on above: Performed By: #### L [id number], L100.0100 ####[facility] [address] [place], [address] Hematocrit (Bld) [Volume fraction] 40.5 % Normal 40-54 [facility] Comment on above: Performed By: #### L [id number], L100.0100 ####[facility] [address] [place], [address] Hemoglobin (Bld) [Mass/Vol] 13.6 g/dL Normal 13.0-16.5 [facility] Comment on above: Performed By: #### L [id number], L100.0100 ####[facility] [address] [place], [address] IG% 0.200 Normal 0.0-0.9 [facility] Comment on above: Result Comment: IG% - Immature Granulocytes (promyelocytes, myelocytes and metamyelocytes) > 1% indicates that a LEFT SHIFT is Present. Performed By: #### L 500.4050, L100.0100 ####[facility] [address] [place], [address] Lymphocytes/100 WBC (Bld) 16.2 % Low 19-41 [facility] Comment on above: Performed By: #### L 500.4050, L100.0100 ####[facility] [address] [place], [address] MCH (RBC) [Entitic mass] 33.8 pg High 27.0-32.0 [facility] Comment on above: Performed By: #### L 500.4050, L100.0100 ####[facility] [address] [place], [address] MCHC (RBC) [Mass/Vol] 33.6 g/dL Normal 32-36 [facility] Comment on above: Performed By: #### L 500.4050, L100.0100 ####[facility] [address] [place], [address] MCV (RBC) [Entitic vol] 100.7 fL High 80-94 [facility] Comment on above: Performed By: #### L 500.4050, L100.0100 ####[facility] [address] [place], [address] Monocytes/100 WBC (Bld) 12.5 % High 0-10 [facility] Comment on above: Performed By: #### L 500.4050, L100.0100 ####[facility] [address] [place], [address] Neutrophils/100 WBC (Bld) 66.9 % Normal 47-70 [facility] Comment on above: Performed By: #### L 500.4050, L100.0100 ####[facility] [address] [place], [address] Nucleated RBC (Bld) [#/Vol] 0 10*3/uL Normal 0-5 [facility] Comment on above: Performed By: #### L 500.4050, L100.0100 ####[facility] [address] [place], [address] Platelet mean volume (Bld) [Entitic vol] 9.2 fL Normal 6.2-12.0 [facility] Comment on above: Performed By: #### L 500.4050, L100.0100 ####[facility] [address] [place], [address] Platelets (Bld) [#/Vol] 230 10*3/uL Normal 150-450 [facility] Comment on above: Performed By: #### L 500.4050, L100.0100 ####[facility] [address] [place], [address] RBC (Bld) [#/Vol] 4.02 10*6/uL Low 4.6-6.2 [facility] Comment on above: Performed By: #### L 500.4050, L100.0100 ####[facility] [address] [place], [address] RDW SD 44.6 fl High 35.1-43.9 [facility] Comment on above: Performed By: #### L 500.4050, L100.0100 ####[facility] [address] [place], [address] WBC (Bld) [#/Vol] 5.7 10*3/uL Normal 4.4-11.0 [facility] Comment on above: Performed By: #### L 500.4050, L100.0100 ####[facility] [address] [place], [address] Carbon dioxide measurementOr dered By: Roderick Laurent on 10-29-2024 CO2 [Moles/Vol] 26.0 mmol/L 21.0-32.0 [facility] Chloride measurementOrdered By: Roderick Laurent on 10-29-2024 Chloride [Moles/Vol] 105 mmol/L 98-107 [facility] Comprehensive Metabolic Prof ilon 10-29-2024 Albumin [Mass/Vol] 3.5 g/dL Normal 3.2-5.0 [facility] Comment on above: Performed By: #### L 501.080 #### [facility] [address] [place], [address] Albumin/Globulin [Mass ratio] 1.2 {ratio} Normal 0.9-2.4 [facility] Comment on above: Performed By: #### L 501.080 #### [facility] [address] [place], [address] ALK P 64 U/L Normal 45-117 [facility] Comment on above: Performed By: #### L 501.080 #### [facility] [address] [place], [address] ALT [Catalytic activity/Vol] 15 U/L Low 16-61 [facility] Comment on above: Performed By: #### L 501.080 #### [facility] [address] [place], [address] AST [Catalytic activity/Vol] 22 U/L Normal 15-37 [facility] Comment on above: Performed By: #### L 501.080 #### [facility] [address] [place], [address] Bilirubin [Mass/Vol] 0.60 mg/dL Normal 0.20-1.00 [facility] Comment on above: Result Comment: For patients on eltrombopag therapy, use of Dimension [place] TBIL is not recommended. Performed By: #### L 501.080 #### [facility] [address] [place], [address] BUN/CRE 23.6 RATIO High 10-20 [facility] Comment on above: Performed By: #### L 501.080 #### [facility] [address] [place], [address] CA,Total 8.9 mg/dL Normal 8.5-10.1 [facility] Comment on above: Performed By: #### L 501.080 #### [facility] [address] [place], [address] Chloride [Moles/Vol] 105 mmol/L Normal 98-107 [facility] Comment on above: Performed By: #### L 501.080 #### [facility] [address] [place], [address] CO2 [Moles/Vol] 26.0 mmol/L Normal 21.0-32.0 [facility] Comment on above: Performed By: #### L 501.080 #### [facility] [address] [place], [address] Creatinine [Mass/Vol] 1.57 mg/dL High 0.70-1.30 [facility] Comment on above: Result Comment: The validity of the calculated GFR GFRAA in patients over 70 years has not been determined. Clinical correlation is essential. Performed By: #### L 501.080 #### [facility] [address] [place], [address] ECRCL 38.64 ml/min Normal [facility] Comment on above: Performed By: #### L 501.080 #### [facility] [address] [place], [address] EST GFR - AA 55 mL/min Low >60 [facility] Comment on above: Result Comment: Afri can Prydeinig GFR Calc Performed By: #### L 501.080 #### [facility] [address] [place], [address] GAP 7 Normal 5-15 [facility] Comment on above: Performed By: #### L 501.080 #### [facility] [address] [place], [address] GFR/1.73 sq M.predicted among non-blacks MDRD (S/P/Bld) [Vol rate/Area] 45 mL/min/{1.73_m2} Low >60 [facility] Comment on above: Result Comment: Non- GFR Calc Performed By: #### L 501.080 #### [facility] [address] [place], [address] Globulin (S) [Mass/Vol] 2.9 g/dL Normal 2.2-4.2 [facility] Comment on above: Performed By: #### L 501.080 #### [facility] [address] [place], [address] Glucose [Mass/Vol] 212 mg/dL High 74-106 [facility] Comment on above: Result Comment: Gluc ose result greater than or equal to 200 mg/dL suggests DIABETES MELLITUS per A.D.A. criteria. Performed By: #### L 501.080 #### [facility] [address] [place], [address] Potassium [Moles/Vol] 4.4 mmol/L Normal 3.5-5.1 [facility] Comment on above: Performed By: #### L 501.080 #### [facility] [address] [place], [address] Sodium [Moles/Vol] 138 mmol/L Normal 136-145 [facility] Comment on above: Performed By: #### L 501.080 #### [facility] [address] [place], [address] T PROT 6.4 g/dL Normal 6.4-8.2 [facility] Comment on above: Performed By: #### L 501.080 #### [facility] [address] [place], [address] Urea nitrogen [Mass/Vol] 37 mg/dL High 7-18 [facility] Comment on above: Performed By: #### L 501.080 #### [facility] [address] [place], [address] Eosinophil percentageOrdered By: Roderick Laurent on 10-29-2024 Eosinophils/100 WBC (Bld) 3.5 % 0-5 [facility] Erythrocyte distribution wid th (RBC) [Ratio]Ordered By: Roderick Laurent on 10-29-2024 Erythrocyte distribution width (RBC) [Entitic vol] 44.6 fL High 35.1-43.9 [facility] Erythrocyte distribution wid th ratioOrdered By: Roderick Laurent on 10-29-2024 Erythrocyte distribution width (RBC) [Ratio] 11.9 % 11.6-14.6 [facility] Estimated glomerular filtrat ion rate (GFR) AmericanOrdered By: Roderick Laurent on 10-29-2024 Estimated GFR (MDRD) Amer 55 mL/min Low >60 [facility] Comment on above: GFR Calc Estimation of creatinine chapito aranceOrdered By: Roderick Laurent on 10-29-2024 Estimated Creatinine Clearance Calc 38.64 ml/min [facility] Glomerular filtration rate ( GFR) estimationOrdered By: Roderick Laurent on 10-29-2024 Estimated GFR (MDRD) Non-Af Amer 45 mL/min Low >60 [facility] Comment on above: Non- GFR Calc Glucose measurementOrdered B y: Roderick Laurent on 10-29-2024 Glucose [Mass/Vol] 212 mg/dL High 74-106 [facility] Comment on above: Glucose result great er than or equal to 200 mg/dLsuggests DIABETES MELLITUS per A.D.A. criteria. Hematocrit Auto (Bld) [Volum e fraction]Ordered By: Roderick Laurent on 10-29-2024 Hematocrit (Bld) [Volume fraction] 40.5 % 40-54 [facility] Hemoglobin measurementOrdere d By: Roderick Laurent on 10-29-2024 Hemoglobin (Bld) [Mass/Vol] 13.6 g/dL 13.0-16.5 [facility] Immature granulocytes/100 WB C Auto (Bld)Ordered By: Roderick Laurent on 10-29-2024 Immature granulocytes/100 WBC (Bld) 0.200 % 0.0-0.9 [facility] Comment on above: IG% - Immature Granu locytes (promyelocytes, myelocytes and metamyelocytes) > 1% indicates that a LEFT SHIFT is Present. Laboratory - Chemistry and C hemistry - challengeOrdered By: Roderick Laurent on 10-29-2024 AST [Catalytic activity/Vol] 22 U/L 15-37 [facility] Lymphocytes Auto (Unsp spec) [#/Vol]Ordered By: Roderick Laurent on 10-29-2024 Lymphocytes (Bld) [#/Vol] 0.93 10*3/uL 0.83-4.51 [facility] Lymphocytes/100 WBC Auto (Un sp spec)Ordered By: Roderick Laurent on 10-29-2024 Lymphocytes/100 WBC (Bld) 16.2 % Low 19-41 [facility] MCV (mean corpuscular volume ) determinationOrdered By: Roderick Laurent on 10-29-2024 MCV (RBC) [Entitic vol] 100.7 fL High 80-94 [facility] Mean corpuscular hemoglobin (MCH) determinationOrdered By: Roderick Laurent on 10-29-2024 MCH (RBC) [Entitic mass] 33.8 pg High 27.0-32.0 [facility] Mean corpuscular hemoglobin concentration (MCHC) determinationOrdered By: Roderick Laurent on 10-29-2024 MCHC (RBC) [Mass/Vol] 33.6 g/dL 32-36 [facility] Mean platelet volume determi nationOrdered By: Roderick Laurent on 10-29-2024 Platelet mean volume (Bld) [Entitic vol] 9.2 fL 6.2-12.0 [facility] Monocyte percentageOrdered B y: Roderick Laurent on 10-29-2024 Monocytes/100 WBC (Bld) 12.5 % High 0-10 [facility] Neutrophil percentageOrdered By: Roderick Laurent on 10-29-2024 Neutrophils/100 WBC (Bld) 66.9 % 47-70 [facility] Nucleated red blood cell per centageOrdered By: Roderick Laurent on 10-29-2024 Nucleated RBC/100 WBC (Bld) [Ratio] 0 % 0-5 [facility] Platelet countOrdered By: Marilu Laurent on 10-29-2024 Platelets (Bld) [#/Vol] 230 10*3/uL 150-450 [facility] Potassium measurementOrdered By: Roderick Laurent on 10-29-2024 Potassium [Moles/Vol] 4.4 mmol/L 3.5-5.1 [facility] RBC Auto (Bld) [#/Vol]Ordere d By: Roderick Laurent on 10-29-2024 RBC (Bld) [#/Vol] 4.02 10*6/uL Low 4.6-6.2 [facility] Serum anion gap measurementO rdered By: Roderick Laurent on 10-29-2024 Anion gap [Moles/Vol] 7 mmol/L 5-15 [facility] Serum globulin measurementOr dered By: Roderick Laurent on 10-29-2024 Globulin (S) [Mass/Vol] 2.9 g/dL 2.2-4.2 [facility] Serum or plasma alanine nix otransferase (ALT) measurementOrdered By: Roderick Laurent on 10-29-2024 ALT [Catalytic activity/Vol] 15 U/L Low 16-61 [facility] Serum or plasma albumin jesenia urement (mass/volume)Ordered By: Roderick Laurent on 10-29-2024 Albumin [Mass/Vol] 3.5 g/dL 3.2-5.0 [facility] Serum or plasma alkaline radha sphatase measurementOrdered By: Roderick Laurent on 10-29-2024 ALP [Catalytic activity/Vol] 64 U/L 45-117 [facility] Serum or plasma calcium jesenia urement (mass/volume)Ordered By: Roderick Laurent on 10-29-2024 Calcium [Mass/Vol] 8.9 mg/dL 8.5-10.1 [facility] Serum or plasma creatinine m easurement (mass/volume)Ordered By: Roderick Laurent on 10-29-2024 Creatinine [Mass/Vol] 1.57 mg/dL High 0.70-1.30 [facility] Comment on above: The validity of the calculated GFR & GFRAA in patients over 70 years has not been determined. Clinical correlation is essential. Serum or plasma urea nitroge n measurement (mass/volume)Ordered By: Roderick Laurent on 10-29-2024 Urea nitrogen [Mass/Vol] 37 mg/dL High 7-18 [facility] Sodium levelOrdered By: Roderick Laurent on 10-29-2024 Sodium [Moles/Vol] 138 mmol/L 136-145 [facility] Total proteinOrdered By: Katie Laurent on 10-29-2024 Protein [Mass/Vol] 6.4 g/dL 6.4-8.2 [facility] White blood cell (WBC) count Ordered By: Roderick Laurent on 10-29-2024 WBC (Bld) [#/Vol] 5.7 10*3/uL 4.4-11.0 [facility] Bedside Glucoseon 10-28-2024 FINGERSTICK GLU 191 mg/dL High 74-106 [facility] Comment on above: Result Comment: ARNOLD GEMENT OF PATIENT CARE PER NURSING PROTOCOL Performed By: #### L 501.080 #### [facility] [address] [facility] [address] FINGERSTICK GLU 130 mg/dL High 74-106 [facility] Comment on above: Result Comment: ARNOLD GEMENT OF PATIENT CARE PER NURSING PROTOCOL Performed By: #### L 501.080 #### [facility] [address] [place], [address] FINGERSTICK GLU 204 mg/dL High 74-106 [facility] Comment on above: Result Comment: ARNOLD GEMENT OF PATIENT CARE PER NURSING PROTOCOL Performed By: #### L 501.080 #### [facility] [address] [place], [address] CBC W/Diff, Automatedon 12-0 Absolute Lymph 1.02 X10 3/uL Normal 0.83-4.51 [facility] Comment on above: Performed By: #### L 100.0100, L500.4050, L501.9520 #### [facility] [address] [place], [address] Absolute Neut 3.9 X10 3/uL Normal 2.0-7.7 [facility] Comment on above: Performed By: #### L 100.0100, L500.4050, L501.9520 #### [facility] [address] [place], [address] Basophils/100 WBC (Bld) 0.5 % Normal 0-1 [facility] Comment on above: Performed By: #### L 100.0100, L500.4050, L501.9520 #### [facility] [address] [place], [address] Eosinophils/100 WBC (Bld) 3.0 % Normal 0-5 [facility] Comment on above: Performed By: #### L 100.0100, L500.4050, [id number] #### [facility] [address] [place], [address] Erythrocyte distribution width (RBC) [Ratio] 11.8 % Normal 11.6-14.6 [facility] Comment on above: Performed By: #### L 100.0100, L500.4050, [id number] #### [facility] [address] [place], [address] Hematocrit (Bld) [Volume fraction] 40.0 % Normal 40-54 [facility] Comment on above: Performed By: #### L 100.0100, L500.4050, [id number] #### [facility] [address] [place], [address] Hemoglobin (Bld) [Mass/Vol] 13.5 g/dL Normal 13.0-16.5 [facility] Comment on above: Performed By: #### L 100.0100, L500.4050, [id number] #### [facility] [address] [place], [address] IG% 0.300 Normal 0.0-0.9 [facility] Comment on above: Result Comment: IG% - Immature Granulocytes (promyelocytes, myelocytes and metamyelocytes) > 1% indicates that a LEFT SHIFT is Present. Performed By: #### L 100.0100, L500.4050, [id number] #### [facility] [address] [place], [address] Lymphocytes/100 WBC (Bld) 17.2 % Low 19-41 [facility] Comment on above: Performed By: #### L 100.0100, L500.4050, [id number] #### [facility] [address] [place], [address] MCH (RBC) [Entitic mass] 33.4 pg High 27.0-32.0 [facility] Comment on above: Performed By: #### L 100.0100, L500.4050, [id number] #### [facility] [address] [place], [address] MCHC (RBC) [Mass/Vol] 33.8 g/dL Normal 32-36 [facility] Comment on above: Performed By: #### L 100.0100, L500.4050, [id number] #### [facility] [address] [place], [address] MCV (RBC) [Entitic vol] 99.0 fL High 80-94 [facility] Comment on above: Performed By: #### L 100.0100, L500.4050, [id number] #### [facility] [address] [place], [address] Monocytes/100 WBC (Bld) 13.9 % High 0-10 [facility] Comment on above: Performed By: #### L 100.0100, L500.4050, [id number] #### [facility] [address] [place], [address] Neutrophils/100 WBC (Bld) 65.1 % Normal 47-70 [facility] Comment on above: Performed By: #### L 100.0100, L500.4050, [id number] #### [facility] [address] [place], [address] Nucleated RBC (Bld) [#/Vol] 0 10*3/uL Normal 0-5 [facility] Comment on above: Performed By: #### L 100.0100, L500.4050, [id number] #### [facility] [address] [place], [address] Platelet mean volume (Bld) [Entitic vol] 9.4 fL Normal 6.2-12.0 [facility] Comment on above: Performed By: #### L 100.0100, L500.4050, [id number] #### [facility] [address] [place], [address] Platelets (Bld) [#/Vol] 251 10*3/uL Normal 150-450 [facility] Comment on above: Performed By: #### L 100.0100, L500.4050, [id number] #### [facility] [address] [place], [address] RBC (Bld) [#/Vol] 4.04 10*6/uL Low 4.6-6.2 [facility] Comment on above: Performed By: #### L 100.0100, L500.4050, [id number] #### [facility] [address] [place], [address] RDW SD 43.0 fl Normal 35.1-43.9 [facility] Comment on above: Performed By: #### L 100.0100, L500.4050, [id number] #### [facility] [address] [place], [address] WBC (Bld) [#/Vol] 5.9 10*3/uL Normal 4.4-11.0 [facility] Comment on above: Performed By: #### L 100.0100, L500.4050, [id number] #### [facility] [address] [place], [address] Comprehensive Metabolic Ltac, Located Within [facility] ilon 10-28-2024 Albumin [Mass/Vol] 3.6 g/dL Normal 3.2-5.0 [facility] Comment on above: Performed By: #### L 100.0100, L500.4050, [id number] #### [facility] [address] [place], [address] Albumin/Globulin [Mass ratio] 1.1 {ratio} Normal 0.9-2.4 [facility] Comment on above: Performed By: #### L 100.0100, L500.4050, [id number] #### [facility] [address] [place], [address] ALK P 68 U/L Normal 45-117 [facility] Comment on above: Performed By: #### L 100.0100, L500.4050, [id number] #### [facility] [address] [place], [address] ALT [Catalytic activity/Vol] 24 U/L Normal 16-61 [facility] Comment on above: Performed By: #### L 100.0100, L500.4050, [id number] #### [facility] [address] [place], [address] AST [Catalytic activity/Vol] 25 U/L Normal 15-37 [facility] Comment on above: Performed By: #### L 100.0100, L500.4050, [id number] #### [facility] [address] [place], [address] Bilirubin [Mass/Vol] 1.00 mg/dL Normal 0.20-1.00 [facility] Comment on above: Result Comment: For patients on eltrombopag therapy, use of Dimension [place] TBIL is not recommended. Performed By: #### L 100.0100, L500.4050, [id number] #### [facility] [address] [place], [address] BUN/CRE 16.7 RATIO Normal 10-20 [facility] Comment on above: Performed By: #### L 100.0100, L500.4050, [id number] #### [facility] [address] [place], [address] CA,Total 8.7 mg/dL Normal 8.5-10.1 [facility] Comment on above: Performed By: #### L 100.0100, L500.4050, [id number] #### [facility] [address] [place], [address] Chloride [Moles/Vol] 105 mmol/L Normal 98-107 [facility] Comment on above: Performed By: #### L 100.0100, L500.4050, [id number] #### [facility] [address] [place], [address] CO2 [Moles/Vol] 23.0 mmol/L Normal 21.0-32.0 [facility] Comment on above: Performed By: #### L 100.0100, L500.4050, [id number] #### [facility] [address] [place], [address] Creatinine [Mass/Vol] 1.20 mg/dL Normal 0.70-1.30 [facility] Comment on above: Result Comment: The validity of the calculated GFR GFRAA in patients over 70 years has not been determined. Clinical correlation is essential. Performed By: #### L 100.0100, L500.4050, [id number] #### [facility] [address] [place], [address] ECRCL 50.55 ml/min Normal [facility] Comment on above: Performed By: #### L 100.0100, L500.4050, [id number] #### [facility] [address] [place], [address] EST GFR - AA 74 mL/min Normal >60 [facility] Comment on above: Result Comment: Afri can Prydeinig GFR Calc Performed By: #### L 100.0100, L500.4050, [id number] #### [facility] [address] [place], [address] GAP 8 Normal 5-15 [facility] Comment on above: Performed By: #### L 100.0100, L500.4050, [id number] #### [facility] [address] [place], [address] GFR/1.73 sq M.predicted among non-blacks MDRD (S/P/Bld) [Vol rate/Area] 62 mL/min/{1.73_m2} Normal >60 [facility] Comment on above: Result Comment: Non- GFR Calc Performed By: #### L 100.0100, L500.4050, [id number] #### [facility] [address] [place], [address] Globulin (S) [Mass/Vol] 3.3 g/dL Normal 2.2-4.2 [facility] Comment on above: Performed By: #### L 100.0100, L500.4050, [id number] #### [facility] [address] [place], [address] Glucose [Mass/Vol] 130 mg/dL High 74-106 [facility] Comment on above: Result Comment: Fast ing Glucose result greater than or equal to 126 mg/dL suggests DIABETES MELLITUS per A.D.A. criteria. Performed By: #### L 100.0100, L500.4050, L501.9520 #### [facility] [address] [place], [address] Potassium [Moles/Vol] 3.9 mmol/L Normal 3.5-5.1 [facility] Comment on above: Performed By: #### L 100.0100, L500.4050, L501.9520 #### [facility] [address] [place], [address] Sodium [Moles/Vol] 136 mmol/L Normal 136-145 [facility] Comment on above: Performed By: #### L 100.0100, L500.4050, L501.9520 #### [facility] [address] [place], [address] T PROT 6.9 g/dL Normal 6.4-8.2 [facility] Comment on above: Performed By: #### L 100.0100, L500.4050, L501.9520 #### [facility] [address] [place], [address] Urea nitrogen [Mass/Vol] 20 mg/dL High 7-18 [facility] Comment on above: Performed By: #### L 100.0100, L500.4050, L501.9520 #### [facility] [address] [place], [address] Culture, Anaerobic Any Sourc adrianna 10-28-2024 CUAN List Antibiotics Las t 48 Hours? NONE List Antibiotics to be Started? NONE No anaerobic bacteria isolated. Normal [facility] Comment on above: Performed By: #### M 100.4001, M100.3000, M100.2000 ####[facility] [address] [place], [address] TSH QnOrdered By: Sulma maxwell on 10-28-2024 Thyroid Stimulating Hormone (TSH) 4.070 uIU/mL High 0.358-3.740 [facility] Thyroid Stim Hormone (TSH)on 10-28-2024 TSH 4.070 uIU/mL High 0.358-3.740 [facility] Comment on above: Performed By: #### L 100.0100, L500.4050, L501.9520 #### [facility] [address] [place], [address] Urine Cultureon 10-28-2024 URC Mixed Gram Pos Gram Neg Org [place] Count 11,000-25,000 MIXC Mixed contaminants. Submit a new specimen if indicated. Normal [facility] Comment on above: Performed By: #### M 100.2200 ####[facility] [address] [facility] [place], [address] 12 Lead EKGon 10-27-[address] [facility] Cardiovascular Services [address] [place] [address] 12 Lead EKG 10/27/24 1027 MR#: [id number] Acct: [id number] Name: FLEX KLINE Rep #: [id number] : 1940 84 From: Garfield Thornton MD Attending Dr: Dr. Roderick Laurent DO Status: A DM IN Ordering Dr: Velasquez Morales DO Date: 4 Location: [facility] Sex: M C Admitted: 10/27/24 Test Reason [...] Otherwise normal ECG Confirmed by Garfield Thornton ([id number]), newspaper managing editor ERROL AIKEN ([id number]) on 10/30/2024 6:53:52 AM Referred By: Confirmed By: Garfield Thornton 10/30/24 0653 Date Garfield Thornton MD CC: Dr. Velasquez Morales DO; Dr. Roderick Laurent DO; Dr. Felix Montelongo MD Signed Normal [facility] BNP (brain natriuretic pepti de measurement)Ordered By: Velasquez Morales on 10-27-2024 Natriuretic peptide B (Bld) [Mass/Vol] 133.8 pg/mL High 0-100 [facility] BNP,B-Type NATRIURETIC PEPTI Camryn 10-27-2024 Natriuretic peptide B (Bld) [Mass/Vol] 133.8 pg/mL High 0-100 [facility] Comment on above: Performed By: #### L 501.080 #### [facility] [address] [place], [address] Basic Metabolic Profile (BMP )on 10-27-2024 BUN/CRE 17.1 RATIO Normal 10-20 [facility] Comment on above: Order Comment: 1Y Performed By: #### L 501.080 #### [facility] [address] [place], [address] CA,Total 9.2 mg/dL Normal 8.5-10.1 [facility] Comment on above: Order Comment: 1Y Performed By: #### L 501.080 #### [facility] [address] [place], [address] Chloride [Moles/Vol] 100 mmol/L Normal 98-107 [facility] Comment on above: Order Comment: 1Y Performed By: #### L 501.080 #### [facility] [address] [place], [address] CO2 [Moles/Vol] 27.0 mmol/L Normal 21.0-32.0 [facility] Comment on above: Order Comment: 1Y Performed By: #### L 501.080 #### [facility] [address] [place], [address] Creatinine [Mass/Vol] 1.46 mg/dL High 0.70-1.30 [facility] Comment on above: Order Comment: 1Y Result Comment: The validity of the calculated GFR GFRAA in patients over 70 years has not been determined. Clinical correlation is essential. Performed By: #### L 501.080 #### [facility] [address] [place], [address] ECRCL 41.55 ml/min Normal [facility] Comment on above: Order Comment: 1Y Performed By: #### L 501.080 #### [facility] [address] [place], [address] EST GFR - AA 59 mL/min Low >60 [facility] Comment on above: Order Comment: 1Y Result Comment: Afri can Prydeinig GFR Calc Performed By: #### L 501.080 #### [facility] [address] [place], [address] GAP 7 Normal 5-15 [facility] Comment on above: Order Comment: 1Y Performed By: #### L 501.080 #### [facility] [address] [place], [address] GFR/1.73 sq M.predicted among non-blacks MDRD (S/P/Bld) [Vol rate/Area] 49 mL/min/{1.73_m2} Low >60 [facility] Comment on above: Order Comment: 1Y Result Comment: Non- GFR Calc Performed By: #### L 501.080 #### [facility] [address] [place], [address] Glucose [Mass/Vol] 158 mg/dL High 74-106 [facility] Comment on above: Order Comment: 1Y Result Comment: Fast ing Glucose result greater than or equal to 126 mg/dL suggests DIABETES MELLITUS per A.D.A. criteria. Performed By: #### L 501.080 #### [facility] [address] [place], [address] Potassium [Moles/Vol] 4.4 mmol/L Normal 3.5-5.1 [facility] Comment on above: Order Comment: 1Y Result Comment: Mode rate Hemolysis, Result may be falsely increased. Performed By: #### L 501.080 #### [facility] [address] [place], [address] Sodium [Moles/Vol] 133 mmol/L Low 136-145 [facility] Comment on above: Order Comment: 1Y Performed By: #### L 501.080 #### [facility] [address] [place], [address] Urea nitrogen [Mass/Vol] 25 mg/dL High 7-18 [facility] Comment on above: Order Comment: 1Y Performed By: #### L 501.080 #### [facility] [address] [place], [address] Bedside Glucoseon 10-27-2024 FINGERSTICK GLU 100 mg/dL Normal 74-106 [facility] Comment on above: Result Comment: ARNOLD HAYWARD OF PATIENT CARE PER NURSING PROTOCOL Performed By: #### L 501.080 #### [facility] [address] [place], [address] Bilirubin Test strip Ql (U)O rdered By: Velasquez Morales on 10-27-2024 Bilirubin Ql (U) Negative Negative [facility] CBC W/Diff, Automatedon 12-0 Absolute Neut Normal 2.0-7.7 [facility] Comment on above: Result Comment: Canc elled via OM: Ordered Performed By: #### L 501.080 #### [facility] [address] [place], [address] HCT Normal 40-54 [facility] Comment on above: Result Comment: James philippe via OM: Ordered Performed By: #### L 501.080 #### [facility] [address] [place], [address] HGB Normal 13.0-16.5 [facility] Comment on above: Result Comment: Canc elled via OM: MD Ordered Performed By: #### L 501.080 #### [facility] [address] [place], [address] MCH Normal 27.0-32.0 [facility] Comment on above: Result Comment: Canc elled via OM: MD Ordered Performed By: #### L 501.080 #### [facility] [address] [place], [address] MCHC Normal 32-36 [facility] Comment on above: Result Comment: Canc elled via OM: MD Ordered Performed By: #### L 501.080 #### [facility] [address] [place], [address] MCV Normal 80-94 [facility] Comment on above: Result Comment: Canc elled via OM: MD Ordered Performed By: #### L 501.080 #### [facility] [address] [place], [address] NEUT% Normal 47-70 [facility] Comment on above: Result Comment: Canc elled via OM: MD Ordered Performed By: #### L 501.080 #### [facility] [address] [place], [address] PLT Normal 150-450 [facility] Comment on above: Result Comment: Canc elled via OM: MD Ordered Performed By: #### L 501.080 #### [facility] [address] [place], [address] RBC Normal 4.6-6.2 [facility] Comment on above: Result Comment: Canc elled via OM: MD Ordered Performed By: #### L 501.080 #### [facility] [address] [place], [address] RDW CV Normal 11.6-14.6 [facility] Comment on above: Result Comment: Canc elled via OM: MD Ordered Performed By: #### L 501.080 #### [facility] [address] [place], [address] RDW SD Normal 35.1-43.9 [facility] Comment on above: Result Comment: Canc elled via OM: MD Ordered Performed By: #### L 501.080 #### [facility] [address] [place], [address] WBC Normal 4.4-11.0 [facility] Comment on above: Result Comment: Canc elled via OM: MD Ordered Performed By: #### L 501.080 #### [facility] [address] [place], [address] Absolute Lymph 0.82 X10 3/uL Low 0.83-4.51 [facility] Comment on above: Performed By: #### L 501.080 #### [facility] [address] [place], [address] Absolute Neut 4.3 X10 3/uL Normal 2.0-7.7 [facility] Comment on above: Performed By: #### L 501.080 #### [facility] [address] [place], [address] Basophils/100 WBC (Bld) 0.7 % Normal 0-1 [facility] Comment on above: Performed By: #### L 501.080 #### [facility] [address] [place], [address] Eosinophils/100 WBC (Bld) 2.2 % Normal 0-5 [facility] Comment on above: Performed By: #### L 501.080 #### [facility] [address] [place], [address] Erythrocyte distribution width (RBC) [Ratio] 11.9 % Normal 11.6-14.6 [facility] Comment on above: Performed By: #### L 501.080 #### [facility] [address] [place], [address] Hematocrit (Bld) [Volume fraction] 41.5 % Normal 40-54 [facility] Comment on above: Performed By: #### L 501.080 #### [facility] [address] [place], [address] Hemoglobin (Bld) [Mass/Vol] 14.6 g/dL Normal 13.0-16.5 [facility] Comment on above: Performed By: #### L 501.080 #### [facility] [address] [place], [address] IG% 0.300 Normal 0.0-0.9 [facility] Comment on above: Result Comment: IG% - Immature Granulocytes (promyelocytes, myelocytes and metamyelocytes) > 1% indicates that a LEFT SHIFT is Present. Performed By: #### L 501.080 #### [facility] [address] [place], [address] Lymphocytes/100 WBC (Bld) 14.1 % Low 19-41 [facility] Comment on above: Performed By: #### L 501.080 #### [facility] [address] [place], [address] MCH (RBC) [Entitic mass] 34.9 pg High 27.0-32.0 [facility] Comment on above: Performed By: #### L 501.080 #### [facility] [address] [place], [address] MCHC (RBC) [Mass/Vol] 35.2 g/dL Normal 32-36 [facility] Comment on above: Performed By: #### L 501.080 #### [facility] [address] [place], [address] MCV (RBC) [Entitic vol] 99.3 fL High 80-94 [facility] Comment on above: Performed By: #### L 501.080 #### [facility] [address] [place], [address] Monocytes/100 WBC (Bld) 9.3 % Normal 0-10 [facility] Comment on above: Performed By: #### L 501.080 #### [facility] [address] [place], [address] Neutrophils/100 WBC (Bld) 73.4 % High 47-70 [facility] Comment on above: Performed By: #### L 501.080 #### [facility] [address] [place], [address] Nucleated RBC (Bld) [#/Vol] 0 10*3/uL Normal 0-5 [facility] Comment on above: Performed By: #### L 501.080 #### [facility] [address] [place], [address] Platelet mean volume (Bld) [Entitic vol] 9.6 fL Normal 6.2-12.0 [facility] Comment on above: Performed By: #### L 501.080 #### [facility] [address] [place], [address] Platelets (Bld) [#/Vol] 256 10*3/uL Normal 150-450 [facility] Comment on above: Performed By: #### L 501.080 #### [facility] [address] [place], [address] RBC (Bld) [#/Vol] 4.18 10*6/uL Low 4.6-6.2 [facility] Comment on above: Performed By: #### L 501.080 #### [facility] [address], [address] RDW SD 43.4 fl Normal 35.1-43.9 [facility] Comment on above: Performed By: #### L 501.080 #### [facility] [address] [place], [address] WBC (Bld) [#/Vol] 5.8 10*3/uL Normal 4.4-11.0 [facility] Comment on above: Performed By: #### L 501.080 #### [facility] [address] [place], [address] Chest 1 View (Portable)on Chest 1 View (Portable) [facility] Imaging Services [address] [place] [address] Chest 1 View (Portable) MR#: [id number] Acct: [id number] Name: FLEX KLINE Rep #: [id number] : 1940 M 84 From: Clint Freire MD PCP: Dr. Felix Montelongo MD Status: PRE ER Study: Chest 1 View (Portable) Date of Exam: 10/27/24 Exam# [id number] Ordering Dr: Velasquez Morales [place] [id number] STUDY: X-RAY CHEST REASON FOR EXAM: Male, [...] 11:00 EST , CC: Dr. Velasquez Morales, ; Dr. 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 Result Comment: D-Di augusta ELEVATED (>0.49): Additional studies and clinical assessments are indicated to conclude diagnosis of: Deep Vein Thrombosis (DVT) or Pulmonary Embolism (PE) Performed By: #### L 501.080 #### [facility] [address] [place] [address]. [place], [address] D-dimer measurement for deep venous thrombosisOrdered By: Velasquez Morales on 10-27-2024 D-Dimer Quantitative (PE/DVT) 0.50 FEU/ug/m High 0.27-0.49 [facility] Comment on above: D-Dimer ELEVATED (>0 .49): Additional studies and clinicalassessments are indicated to conclude diagnosis of:Deep Vein Thrombosis (DVT) or Pulmonary Embolism (PE) Echo Complete W/ Contraston 10-27-2024 Echo Complete W/ Contrast [facility]ovascular Services [address] [place] [address] Echo Complete W/ Contrast 10/28/24 0814 MR#: [id number] Acct: [id number] Name: FLEX KLINE Rep #: [id number] : 1940 84 From: Angela Ramirez MD Attending Dr: Dr. Roderick Laurent, DO Status: A DM IN Ordering Dr: Sulma Romero MD Date: 10/27/24 Location: [facility] Sex: M C Admitted: 10/27/24 Reason For [...] MD; Dr. 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 Normal [facility] Epithelial cells.squamous LM Ql (Urine sed)Ordered By: Velasquez Morales on 10-27-2024 Epithelial cells.squamous LM.HPF (Urine sed) [#/Area] 0 /[HPF] 0-5 [facility] Glucose Ql (U)Ordered By: Korey Morales on 10-27-2024 Glucose (U) [Mass/Vol] 1000 mg/dL High Normal [facility] H AND P Exam - Hospitaliston 10-27-2024 H&P Exam - Hospitalist [facility] Medical Records Department [address] [place] [address] H P Exam - Hospitalist 10/27/24 1633 MR#: [id number] Acct: [id number] Name: FLEX KLINE Rep #: [id number] : 1940 84 From: Sulma Romero MD PCP: Dr. Felix Montelongo MD Status:ADM IN Location: [id number] HPI - General General Date of Admission: 10/27/24 Date of Service: 10/27/24 Chief Complaint: Weakness, CP, SOB HPI Narrative FLEX KLINE, is a 84-year-old male history of CKD, Parkinson's, CAD, BPH, diabetes, hypothyroidism presented [facility] ED 10/27/2024 with shortness of breath, [...] notice any change with exertion or rest. 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 Normal [facility] Influenza virus A and B and SARS-CoV-2 (COVID-19) and Respiratory syncytial virus RNAOrdered By: Velasquez Morales on 10-27-2024 SARS-CoV-2 (COVID-19) RNA ROSIE+probe Ql (Unsp spec) [facility] Ketones Test strip Ql (U)Ord ered By: Velasquez Morales on 10-27-2024 Ketones Ql (U) 5 mg/dl High Negative [facility] L501.4020on 10-27-2024 TROPONIN-I HS 9 pg/mL Normal 3.0-78.0 [facility] Comment on above: Result Comment: Plea se Note: New Test Units and Gender Specific Reference Ranges. For more information see Policy Stat Procedure [facility] High Sensitivity Troponin (TNIH) and attachments. Performed By: #### L 501.4020 ####[facility] [address] [facility] [place], [address] L501.5425on 10-27-2024 TROPONIN-I HS 8 pg/mL Normal 3.0-78.0 [facility] Comment on above: Order Comment: 1Y Result Comment: Plea se Note: New Test Units and Gender Specific Reference Ranges. For more information see Policy Stat Procedure [facility] High Sensitivity Troponin (TNIH) and attachments. Performed By: #### L 501.080 #### [facility] [address] [facility] [place], [address] M100.678on 10-27-2024 M100.678 Pending SARS-CoV-2 (COVID 19) Negative INFLUENZA A Negative INFLUENZA B Negative RSV PCR Negative Normal [facility] Comment on above: Performed By: #### M 100.678, L400.0001 ####[facility] [address] [place], [address] Magnesiumon 10-27-2024 Magnesium [Mass/Vol] 2.2 mg/dL Normal 1.6-2.6 [facility] Comment on above: Performed By: #### L 501.080 #### [facility] [address] [place], [place], [address] Magnesium measurementOrdered By: Velasquez Morales on 10-27-2024 Magnesium [Mass/Vol] 2.2 mg/dL 1.6-2.6 [facility] Microscopic analysis of urin e for red blood cells (RBC)Ordered By: Velasquez Morales on 10-27-2024 Urine RBC 0 SEEN /hpf 0-5 [facility] Mucus LM Ql (Urine sed)Order ed By: Velasquez Morales on 10-27-2024 Mucus Ql (Urine sed) 0 SEEN /hpf [facility] Nitrite Test strip Ql (U)Ord ered By: [facility] on 10-27-2024 Nitrite Ql (U) Negative Negative [facility] Protein Test strip Ql (U)Ord ered By: Velasquez Morales on 10-27-2024 Protein Ql (U) 30 mg/dl High Negative [facility] Thyroid Stim Hormone (TSH)on 10-27-2024 TSH 2.580 uIU/mL Normal 0.358-3.740 [facility] Comment on above: Performed By: #### L 501.080 #### [facility] [address] [place], [place], [address] Troponin IOrdered By: Velasquez Morales on 10-27-2024 Troponin I High Sensitivity 9 pg/mL 3.0-78.0 [facility] Comment on above: Please Note: New Luz Elena t Units and Gender Specific Reference Ranges. For more information see Policy Stat Procedure [facility] High Sensitivity Troponin (TNIH) and attachments. Urinalysis, Completeon 10-27 BACTERIA 1+ /hpf Normal None Seen [facility] Comment on above: Order Comment: CLEAN CATCH Performed By: #### M 100.678, L400.0001 ####[facility] [address] [place], [address] WBC 10-25 SEEN Normal 0-5 [facility] Comment on above: Order Comment: CLEAN CATCH Performed By: #### M 100.678, L400.0001 ####[facility] [address] [place], [address] BILIRUBIN URINE Negative Normal Negative [facility] Comment on above: Order Comment: CLEAN CATCH Performed By: #### M 100.678, L400.0001 ####[facility] [address] [place], [address] Clarity (U) Clear Normal Clear [facility] Comment on above: Order Comment: CLEAN CATCH Performed By: #### M 100.678, L400.0001 ####[facility] [address] [place], [address] Color (U) Straw Normal Yellow [facility] Comment on above: Order Comment: CLEAN CATCH Performed By: #### M 100.678, L400.0001 ####[facility] [address] [place], [address] GLUCOSE, UR 1000 mg/dl Abnormal Normal [facility] Comment on above: Order Comment: CLEAN CATCH Performed By: #### M 100.678, L400.0001 ####[facility] [address] [place], [address] KETONE UR 5 mg/dl Abnormal Negative [facility] Comment on above: Order Comment: CLEAN CATCH Performed By: #### M 100.678, L400.0001 ####[facility] [address] [place], [address] LEUK ESTERASE 100 /ul Abnormal Negative [facility] Comment on above: Order Comment: CLEAN CATCH Performed By: #### M 100.678, L400.0001 ####[facility] [address] [place], [address] Nitrite Ql (U) Negative Normal Negative [facility] Comment on above: Order Comment: CLEAN CATCH Performed By: #### M 100.678, L400.0001 ####[facility] [address] [place], [address] OCCULT BLOOD-UR Negative Normal Negative [facility] Comment on above: Order Comment: CLEAN CATCH Performed By: #### M 100.678, L400.0001 ####[facility] [address] [place], [address] pH UR 7.0 Normal 5.0 - 8.0 [facility] Comment on above: Order Comment: CLEAN CATCH Performed By: #### M 100.678, L400.0001 ####[facility] [address] [place], [address] PROT DIPSTX 30 mg/dl Abnormal Negative [facility] Comment on above: Order Comment: CLEAN CATCH Performed By: #### M 100.678, L400.0001 ####[facility] [address] [place], [address] SP.GR. DIPSTX 1.010 Normal 1.002-1.030 [facility] Comment on above: Order Comment: CLEAN CATCH Performed By: #### M 100.678, L400.0001 ####[facility] [address] [place], [address] UROBILI Normal Normal Normal [facility] Comment on above: Order Comment: CLEAN CATCH Performed By: #### M 100.678, L400.0001 ####[facility] [address] [place], [address] EPI,SQUAMOUS 0 SEEN Normal 0-5 [facility] Comment on above: Order Comment: CLEAN CATCH Performed By: #### M 100.678, L400.0001 ####[facility] [address] [place], [address] Mucus Ql (Urine sed) 0 SEEN Normal [facility] Comment on above: Order Comment: CLEAN CATCH Performed By: #### M 100.678, L400.0001 ####[facility] [address] [place], [address] RBC 0 SEEN Normal 0-5 [facility] Comment on above: Order Comment: CLEAN CATCH Performed By: #### M 100.678, L400.0001 ####[facility] [address] [place], [address] Urine blood detectionOrdered By: Velasquez Morales on 10-27-2024 Urine Occult Blood Negative Negative [facility] Urine clarityOrdered By: Gregor Morales on 10-27-2024 Clarity (U) Clear Clear [facility] Urine color determinationOrd ered By: Velasquez Morales on 10-27-2024 Color (U) Straw Yellow [facility] Urine cultureOrdered By: Gregor Morales on 10-27-2024 Bacteria identified Cx Nom (U) Mixed Gram Pos & Gram Neg Org Abnormal [facility] Urine leukocyte esterase det ection by dipstickOrdered By: Velasquez Morales on 10-27-2024 Leukocyte esterase Test strip Ql (U) 100 /ul High Negative [facility] Urine pHOrdered By: Velasquez Saab on 10-27-2024 pH (U) 7.0 [pH] 5.0 - 8.0 [facility] Urine sediment bacteria coun t by microscopy (number/high power field)Ordered By: Velasquez Morales on 10-27-2024 Bacteria LM.HPF (Urine sed) [#/Area] 1 /[HPF] None Seen [facility] Urine specific gravity measu rementOrdered By: Velasquez Morales on 10-27-2024 Specific gravity (U) [Rel density] 1.010 1.002-1.030 [facility] Urobilinogen Ql (U)Ordered B y: Velasquez Morales on 10-27-2024 Urine Urobilinogen Normal mg/dl Normal [facility] White blood cell countOrdere d By: Velasquez Morales on 10-27-2024 Urine WBC 10-25 SEEN /hpf 0-5 [facility] Wound Cultureon 10-27-2024 WC List Antibiotics [...] Islt GAYLA <=0.5 S Normal [facility] Comment on above: Performed By: #### M 100.4001, M100.3000, M100.1999 ####[facility] [address] [place], [address] Gram Stainon 10-26-2024 GS List Antibiotics Las t 48 Hours? NONE List Antibiotics to be Started? NONE Gram Stain No organisms seen No cells seen Normal [facility] Comment on above: Performed By: #### M 100.4001, M100.3000, M100.1999 ####[facility] [address] [place], [address] Wound Ctr History AND Physic josé miguel 10-25-2024 Wound Ctr History & Physical [facility] [address] [place] [address] H P Exam - Wound Care 10/25/24 1711 MR#: [id number] Acct: [id number] Name: FLEX KLINE Rep #: [id number] : 1940 84 From: Rita Calixto NP [facility] PCP: Dr. Felix Montelongo MD Status:REG RCR [...] erythematous and dry but no open wounds. 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 Normal [facility] Absolute lymphocyte counton 06-29-2023 Lymphocytes Auto (Unsp spec) [#/Vol] 0.81 10*3/uL 0.83-4.51 [facility] Basophil percentageon 2022 Basophils/100 WBC (Bld) 0.2 % 0-1 [facility] Bilirubin [Mass/Vol] 0.80 mg/dL 0.20-1.00 [facility] Comment on above: For patients on eltr ombopag therapy, use of Dimension Adair TBIL is not recommended. Chloride [Moles/Vol] 101 mmol/L 98-107 [facility] Cholesterol [Mass/Vol] 170 mg/dL <200 [facility] Comment on above: <200 mg/dL Desirable 200-240 mg/dL Borderline >240 mg/dL High Risk Eosinophils/100 WBC (Bld) 3.3 % 0-5 [facility] Glucose [Mass/Vol] 119 mg/dL 74-106 [facility] Comment on above: Fasting Glucose resu lt from 100 to 125 mg/dL suggests IMPAIRED HOMEOSTASIS per A.D.A. criteria. Neutrophils (Bld) [#/Vol] 3.9 10*3/uL 2.0-7.7 [facility] Neutrophils/100 WBC (Bld) 70.4 % 47-70 [facility] Potassium [Moles/Vol] 4.8 mmol/L 3.5-5.1 [facility] Protein [Mass/Vol] 7.2 g/dL 6.4-8.2 [facility] Sodium [Moles/Vol] 134 mmol/L 136-145 [facility] Triglyceride [Mass/Vol] 57 mg/dL <199 [facility] Comment on above: The drugs N-Acetylcy steine and Metamizole may falsely depress this assay.Serum Triglycerides Reference Interval Normal <150 mg/dL Borderline high 150 - 199 mg/dL High 200 - 499 mg/dL Very High > or = 500 mg/dL WBC (Bld) [#/Vol] 5.5 10*3/uL 4.4-11.0 [facility] Blood erythrocytes count (nu mber/volume)on 06-29-2023 RBC (Bld) [#/Vol] 4.22 10*6/uL 4.6-6.2 [facility] [place] Blood hemoglobin measurement (mass/volume)on 06-29-2023 Hemoglobin (Bld) [Mass/Vol] 14.4 g/dL 13.0-16.5 [facility] Blood lymphocytes/100 leukoc yteson 06-29-2023 Lymphocytes/100 WBC (Bld) 14.8 % 19-41 [facility] Blood monocytes/100 leukocyt eson 06-29-2023 Monocytes/100 WBC (Bld) 11.1 % 0-10 [facility] Blood platelet mean volumeon 06-29-2023 Platelet mean volume (Bld) [Entitic vol] 9.7 fL 6.2-12.0 [facility] Determination of erythrocyte mean corpuscular volume (MCV)on 06-29-2023 MCV (RBC) [Entitic vol] 96.9 fL 80-94 [facility] Hematocrit Auto (Bld) [Volum e fraction]on 06-29-2023 Hematocrit (Bld) [Volume fraction] 40.9 % 40-54 [facility] Laboratory - Chemistry and C hemistry - challengeon 06-29-2023 ALP [Catalytic activity/Vol] 59 U/L 45-117 [facility] ALT [Catalytic activity/Vol] 24 U/L 16-61 [facility] CO2 [Moles/Vol] 27.0 mmol/L 21.0-32.0 [facility] Globulin (S) [Mass/Vol] 3.3 g/dL 2.2-4.2 [facility] Urea nitrogen/Creatinine [Mass ratio] 18.1 mg/mg 10-20 [facility] Laboratory - Hematology and Cell countson 06-29-2023 Erythrocyte distribution width (RBC) [Entitic vol] 42.5 fL 35.1-43.9 [facility] Erythrocyte distribution width (RBC) [Ratio] 11.9 % 11.6-14.6 [facility] Immature granulocytes/100 WBC (Bld) 0.200 % 0.0-0.9 [facility] Comment on above: IG% - Immature Granu locytes (promyelocytes, myelocytes and metamyelocytes) > 1% indicates that a LEFT SHIFT is Present. MCH (RBC) [Entitic mass] 34.1 pg 27.0-32.0 [facility] Nucleated RBC/100 WBC (Bld) [Ratio] 0 % 0-5 [facility] MCHC Auto (RBC) [Mass/Vol]on 06-29-2023 MCHC (RBC) [Mass/Vol] 35.2 g/dL 32-36 [facility] No Panel Informationon 06-29 Estimated GFR (MDRD) Amer 56 mL/min >60 [facility] Comment on above: GFR Calc Estimated GFR (MDRD) Non-Af Amer 46 mL/min >60 [facility] Comment on above: Non- GFR Calc Prostate Specific Antigen Screen 3.35 ng/mL 0.00-4.00 [facility] Comment on above: This test was perfor med using the TPSA assay method for theNeed chemistry system. Values obtained with differentassay methods cannot be used interchangably.When changing PSA assays in the course of monitoring apatient, additional sequential testing should be carriedout to confirm baseline values. Thyroid Stimulating Hormone (TSH) 4.85 uIU/mL 0.358-3.74 [facility] Urine Microalbumin/Creatinine Ratio 26.8 mg/g CRE <30 [facility] Platelets bldon 06-29-2023 Platelets (Bld) [#/Vol] 217 10*3/uL 150-450 [facility] Serum or plasma albumin jesenia urement (mass/volume)on 06-29-2023 Albumin [Mass/Vol] 3.9 g/dL 3.2-5.0 [facility] Serum or plasma albumin/glob ulin mass ratioon 06-29-2023 Albumin/Globulin [Mass ratio] 1.2 {ratio} 0.9-2.4 [facility] Serum or plasma calcium jesenia urement (mass/volume)on 06-29-2023 Calcium [Mass/Vol] 9.0 mg/dL 8.5-10.1 [facility] Serum or plasma cholesterol in HDL measurement (mass/volume)on 06-29-2023 Cholesterol in HDL [Mass/Vol] 56 mg/dL >40 [facility] Comment on above: The drugs N-Acetylcy steine and Metamizole may falsely depress this assay. Reference Range HDL <40 mg/dL Low HDL Cholesterol HDL >or= 60 mg/dL High HDL Cholesterol Serum or plasma cholesterol in VLDL measurement (mass/volume)on 06-29-2023 Cholesterol in VLDL [Mass/Vol] 11 mg/dL 5-40 [facility] Serum or plasma creatinine m easurement (mass/volume)on 06-29-2023 Creatinine [Mass/Vol] 1.55 mg/dL 0.70-1.30 [facility] Comment on above: The validity of the calculated GFR & GFRAA in patients over 70 years has not been determined. Clinical correlation is essential. Serum or plasma low density lipoprotein (LDL) cholesterol measurement (mass/volume)on 06-29-2023 Cholesterol in LDL [Mass/Vol] 103 mg/dL 0-130 [facility] Serum or plasma urea nitroge n measurement (mass/volume)on 06-29-2023 Urea nitrogen [Mass/Vol] 28 mg/dL 7-18 [facility] Thin prep Papanicolaou smear with manual screeningon 06-29-2023 Thin prep Papanicolaou smear with manual screening 21 U/L 15-37 [facility] Thin prep Papanicolaou smear with manual screening 6 5-15 [facility] Thin prep Papanicolaou smear with manual screening 32.2 mg/L NO RANGE EST. [facility] Urine creatinine measurement (mass/volume)on 06-29-2023 Creatinine (U) [Mass/Vol] 120.00 mg/dL NO RANGE EST. [facility] Whole blood hemoglobin A1c/t otal hemoglobin ratio (mass fraction)on 06-29-2023 HbA1c (Bld) [Mass fraction] 6.9 % 3.8-5.6 [facility] Comment on above: Normal < 5.7 % Predi abetic 5.7 - 6.4 % Diabetic >or= 6.5 % Please note range changes. Basophil percentageon 2021 Bilirubin [Mass/Vol] 0.70 mg/dL 0.20-1.00 [facility] Work Phone: Comment on above: For patients on eltr ombopag therapy, use of Dimension Adair TBIL is not recommended. Chloride [Moles/Vol] 100 mmol/L 98-107 [facility] Work Phone: Cholesterol [Mass/Vol] 180 mg/dL <200 [facility] Work Phone: Comment on above: <200 mg/dL Desirable 200-240 mg/dL Borderline >240 mg/dL High Risk Glucose [Mass/Vol] 138 mg/dL 74-106 [facility] Work Phone: Comment on above: Fasting Glucose resu lt greater than or equal to 126 mg/dL suggests DIABETES MELLITUS per A.D.A. criteria. Potassium [Moles/Vol] 4.4 mmol/L 3.5-5.1 [facility] Work Phone: Protein [Mass/Vol] 7.5 g/dL 6.4-8.2 [facility] Work Phone: Sodium [Moles/Vol] 135 mmol/L 136-145 [facility] Work Phone: Triglyceride [Mass/Vol] 54 mg/dL <199 [facility] Work Phone: Comment on above: The drugs N-Acetylcy steine and Metamizole may falsely depress this assay.Serum Triglycerides Reference Interval Normal <150 mg/dL Borderline high 150 - 199 mg/dL High 200 - 499 mg/dL Very High > or = 500 mg/dL Laboratory - Chemistry and C hemistry - challengeon 06-04-2022 ALP [Catalytic activity/Vol] 66 U/L 45-117 [facility] Work Phone: ALT [Catalytic activity/Vol] 35 U/L 16-61 [facility] Work Phone: CO2 [Moles/Vol] 29.0 mmol/L 21.0-32.0 [facility] Work Phone: Globulin (S) [Mass/Vol] 3.4 g/dL 2.2-4.2 [facility] Work Phone: Urea nitrogen/Creatinine [Mass ratio] 18.2 mg/mg 10-20 [facility] Work Phone: Laboratory - Hematology and Cell countson 06-04-2022 HbA1c (Bld) [Mass fraction] 6.9 % [facility] Work Phone: No Panel Informationon 06-04 Estimated GFR (MDRD) Amer 56 mL/min >60 [facility] Work Phone: Comment on above: GFR Calc Estimated GFR (MDRD) Non-Af Amer 46 mL/min >60 [facility] Work Phone: Comment on above: Non- GFR Calc Thyroid Stimulating Hormone (TSH) 4.27 uIU/mL 0.358-3.74 [facility] Work Phone: Urine Microalbumin/Creatinine Ratio 97.5 mg/g CRE <30 [facility] Work Phone: Serum or plasma albumin jesenia urement (mass/volume)on 06-04-2022 Albumin [Mass/Vol] 4.1 g/dL 3.2-5.0 [facility] Work Phone: Serum or plasma albumin/glob ulin mass ratioon 06-04-2022 Albumin/Globulin [Mass ratio] 1.2 {ratio} 0.9-2.4 [facility] Work Phone: Serum or plasma calcium jesenia urement (mass/volume)on 06-04-2022 Calcium [Mass/Vol] 9.0 mg/dL 8.5-10.1 [facility] Work Phone: Serum or plasma cholesterol in HDL measurement (mass/volume)on 06-04-2022 Cholesterol in HDL [Mass/Vol] 59 mg/dL >40 [facility] Work Phone: Comment on above: The drugs N-Acetylcy steine and Metamizole may falsely depress this assay. Reference Range HDL <40 mg/dL Low HDL Cholesterol HDL >or= 60 mg/dL High HDL Cholesterol Serum or plasma cholesterol in VLDL measurement (mass/volume)on 06-04-2022 Cholesterol in VLDL [Mass/Vol] 11 mg/dL 5-40 [facility] Work Phone: Serum or plasma creatinine m easurement (mass/volume)on 06-04-2022 Creatinine [Mass/Vol] 1.54 mg/dL 0.70-1.30 [facility] Work Phone: Comment on above: The validity of the calculated GFR & GFRAA in patients over 70 years has not been determined. Clinical correlation is essential. Serum or plasma low density lipoprotein (LDL) cholesterol measurement (mass/volume)on 06-04-2022 Cholesterol in LDL [Mass/Vol] 110 mg/dL 0-130 [facility] Work Phone: Serum or plasma urea nitroge n measurement (mass/volume)on 06-04-2022 Urea nitrogen [Mass/Vol] 28 mg/dL 7-18 [facility] Work Phone: Thin prep Papanicolaou smear with manual screeningon 06-04-2022 Thin prep Papanicolaou smear with manual screening 27 U/L 15-37 [facility] Work Phone: Thin prep Papanicolaou smear with manual screening 6 5-15 [facility] Work Phone: Thin prep Papanicolaou smear with manual screening 116.0 mg/L NO RANGE EST. [facility] Work Phone: Urine creatinine measurement (mass/volume)on 06-04-2022 Creatinine (U) [Mass/Vol] 119.00 mg/dL NO RANGE EST. [facility] Work Phone: Echocardiogramon 07-10-2021 Echocardiography [facility] , [address], [address], [place], [place] [address] and TRANSTHORACIC ECHOCARDIOGRAM REPORT Patient Name: FLEX KLINE Reading Physician: [id number] Diamond Hammer MD Study Date: 07/10/2021 Referring Physician: DAVID BABCOCK MRN/PID: [id number] PCP: Accession/Order#: [id number] Department Location: [facility] Date of : 1940 Fellow: Gender: M Nurse: Admit Date: Infrastructure Developer: Tono Blake RDCS Admission Status: Outpatient Additional Staff: Height: 180.34 cm CC Report to: Weight: 81.65 kg Study Type: Echocardiogram BSA: 2.02 m2 Blood Pressure: 141 /77 mmHg Diagnosis/ICD: I25.10-Atherosclerotic heart disease of saxman coronary artery without angina pectoris Indication: Coronary artery disease Procedure/CPT: Echo Complete w Full [id number] Patient History: Pertinent History: CAD s/p CABG [...] Antonia: 1.52 PulmV Sys Antonia: 48.61 cm/s [id number] Diamond Hammer MD Electronically signed on 07/10/2021 at 8:33:27 PM Final Normal [facility] Blood Pressure Cuff Sizeon 0 06-24-2021 Fall risk assessment b) One or more fall s in the last year [facility] Work Phone: Tobacco use status [facility] b) No [facility] Work Phone: Blood Pressure Cuff Size Adult [facility] Work Phone: Office Visit (Vascular Medic ine Office Visit)on 06-24-2021 Follow-up visit Diagnoses/Problems Assessed Coronary artery disease (414.00) (I25.10) *Orders Coronary artery disease Cardiac Catheterization Lab Procedures; Status:Active; Requested for:[id number]; Echocardiogram; Status:Resulted - Requires Verification; Done: [id number] 10:14AM AMA Intake Activity Log Entry by [...] dominant, LM unclear, LCX moderate disease, 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 Was told by his primary lcac radar operator/navigator that he may need atherectomy to one [...] 40 mg QHS. Continue ranolazine and ISMR. 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 Was told by his primary lcac radar operator/navigator that he may need atherectomy to one of his vessels (?Cx). Additionally, it appears afterwards he had a MPI that demonstrated no inducible ischemia, normal LV size and function (low risk study) performed on 04-23-2021 and in response to this, it was decided that no further intervention was necessary. Bevel Gear Generator Operator: Harjinder Jones MD ([facility] [place]) *Active Problems Problems Diabetes mellitus (250.00) (E11.9) [...] Clopidogrel Bisulfate (more content not included)... [facility] Scre[facility] 021 Fall risk assessment a) No falls within the last year [facility] [place] Work Phone: Tobacco use status [facility] b) No [facility] [place] Work Phone: Vital Signs Date Time Vital Sign Value Performing Clinician Facility 2025 10:58-0400 Body height 176.5 cm Harjinder Jones MD Work Phone: [facility] 2025 10:58-0400 Body mass index (BMI) [Ratio] 26.2 kg/m2 Harjinder Jones MD Work Phone: [facility] 2025 10:58-0400 Body weight 81.65 kg Harjinder Jones MD Work Phone: [facility] 2025 10:58-0400 Diastolic blood pressure 60 mm[Hg] Harjinder Jones MD Work Phone: [facility] 2025 10:58-0400 Heart rate 82 /min Harjinder Jones MD Work Phone: [facility] 2025 10:58-0400 Respiratory rate 16 /min Harjinder Jones MD Work Phone: [facility] 2025 10:58-0400 SaO2% (BldA) [Mass fraction] 98 % Harjnider Jones MD Work Phone: [facility] 2025 10:58-0400 Systolic blood pressure 138 mm[Hg] Harjinder Jones MD Work Phone: [facility] 03-02-2025 10:37-0400 Body mass index (BMI) [Ratio] 26.2 kg/m2 Kwan Estrella MD Work Phone: [facility] 03-02-2025 10:37-0400 Body weight 81.65 kg Kwan Estrella MD Work Phone: [facility] 03-02-2025 10:37-0400 Diastolic blood pressure 63 mm[Hg] Kwan Estrella MD Work Phone: [facility] 03-02-2025 10:37-0400 Heart rate 69 /min Kwan Estrella MD Work Phone: [facility] 03-02-2025 10:37-0400 SaO2% (BldA) [Mass fraction] 99 % Kwan Estrella MD Work Phone: [facility] 03-02-2025 10:37-0400 Systolic blood pressure 113 mm[Hg] Kwan Estrella MD Work Phone: [facility] 02-27-2025 10:56-0400 Body height 180.[address] Felix Montelongo MD Work Phone: [facility] 02-27-2025 10:56-0400 Diastolic blood pressure 78 mm[Hg] Dr. Felix Montelongo MD Work Phone: [facility] 02-27-2025 10:56-0400 Heart rate 62 /min Dr. Felix Montelongo MD Work Phone: [facility] 02-27-2025 10:56-0400 SaO2% (BldA) [Mass fraction] 96 % Dr. Felix Montelongo MD Work Phone: [facility] 02-27-2025 10:56-0400 Systolic blood pressure 168 mm[Hg] Dr. Felix Montelongo MD Work Phone: [facility] 01-22-2025 13:41-0500 Body height 176.5 cm Harjinder Jones MD Work Phone: [facility] 01-22-2025 13:41-0500 Body mass index (BMI) [Ratio] 25.62 kg/m2 Harjinder Jones MD Work Phone: [facility] 01-22-2025 13:41-0500 Body weight 79.83 kg Harjinder Jones MD Work Phone: [facility] 01-22-2025 13:41-0500 Diastolic blood pressure 70 mm[Hg] Harjinder Jones MD Work Phone: [facility] 01-22-2025 13:41-0500 Heart rate 91 /min Harjinder Jones MD Work Phone: [facility] 01-22-2025 13:41-0500 Respiratory rate 14 /min Harjinder Jones MD Work Phone: [facility] 01-22-2025 13:41-0500 SaO2% (BldA) [Mass fraction] 97 % Harjinder Jones MD Work Phone: [facility] 01-22-2025 13:41-0500 Systolic blood pressure 156 mm[Hg] Harjinder Jones MD Work Phone: [facility] 11-30-2024 08:36-0500 Body height 180.[address] Felix Montelongo MD Work Phone: [facility] 11-30-2024 08:36-0500 Body mass index (BMI) [Ratio] 24.1 kg/m2 Dr. Felix Montelongo MD Work Phone: [facility] 11-30-2024 08:36-0500 Body weight 78.[address] Felix Montelongo MD Work Phone: [facility] 11-30-2024 08:36-0500 Diastolic blood pressure 72 mm[Hg] Dr. Felix Montelongo MD Work Phone: [facility] 11-30-2024 08:36-0500 Heart rate 93 /min Dr. Felix Montelongo MD Work Phone: [facility] 11-30-2024 08:36-0500 Respiratory rate 18 /min Dr. Felix Montelongo MD Work Phone: [facility] 11-30-2024 08:36-0500 Systolic blood pressure 138 mm[Hg] Dr. Felix Montelongo MD Work Phone: [facility] 11-01-2024 15:00-0500 Body temperature 97.6 [degF] Dr. Felix Montelongo MD Work Phone: [facility] 11-01-2024 15:00-0500 Diastolic blood pressure 54 mm[Hg] Dr. Felix Montelongo MD Work Phone: [facility] 11-01-2024 15:00-0500 Heart rate 76 /min Dr. Felix Montelongo MD Work Phone: [facility] 11-01-2024 15:00-0500 Respiratory rate 18 /min Dr. Felix Montelongo MD Work Phone: [facility] [facility] 11-01-2024 15:00-0500 SaO2% (BldA) [Mass fraction] 94 % Dr. Felix Montelongo MD Work Phone: [facility] 11-01-2024 15:00-0500 Systolic blood pressure 104 mm[Hg] Dr. Felix Montelongo MD Work Phone: [facility] 11-01-2024 06:00-0500 Body mass index (BMI) [Ratio] 24.3 kg/m2 Dr. Felix Montelongo MD Work Phone: [facility] 11-01-2024 06:00-0500 Body weight [address] Felix Montelongo MD Work Phone: [facility] 01-04-2024 15:09-0500 Body height 176.5 cm Rocío Wagner PA-C Work Phone: [facility] 01-04-2024 15:09-0500 Body weight 83.01 kg Rocíoaj Wagner PA-C Work Phone: [facility] 01-04-2024 15:09-0500 Diastolic blood pressure 66 mm[Hg] Rocío Wagner PA-C Work Phone: [facility] 01-04-2024 15:09-0500 Heart rate 73 /min Rocíoaj Cookbow PA-C Work Phone: [facility] 01-04-2024 15:09-0500 Respiratory rate 14 /min Rocío Denbow PA-C Work Phone: [facility] 01-04-2024 15:09-0500 SaO2% (BldA) [Mass fraction] 97 % Rocío Denbow PA-C Work Phone: [facility] 01-04-2024 15:09-0500 Systolic blood pressure 122 mm[Hg] Rocío Joeybow PA-C Work Phone: [facility] 06-04-2022 08:28-0400 Body height 182.[address] Felix Montelongo Work Phone: [facility] Work Phone: 06-04-2022 08:28-0400 Body mass index (BMI) [Ratio] 26 kg/m2 Dr. Felix Montelongo Work Phone: [facility] Work Phone: 06-04-2022 08:28-0400 Body temperature 96.5 [degF] Dr. Felix Montelongo Work Phone: [facility] Work Phone: 06-04-2022 08:28-0400 Body weight 87.[address] Felix Montelongo Work Phone: [facility] Work Phone: 06-04-2022 08:28-0400 Diastolic blood pressure 76 mm[Hg] Dr. Felix Montelongo Work Phone: [facility] Work Phone: 06-04-2022 08:28-0400 Heart rate 58 /min Dr. Felix Montelongo Work Phone: [facility] Work Phone: 06-04-2022 08:28-0400 Respiratory rate 18 /min Dr. Felix Montelongo Work Phone: [facility] Work Phone: 06-04-2022 08:28-0400 SaO2% (BldA) [Mass fraction] 99 % Dr. Felix Montelongo Work Phone: [facility] Work Phone: 06-04-2022 08:28-0400 Systolic blood pressure 124 mm[Hg] Dr. Felix Montelongo Work Phone: [facility] Work Phone: 06-24-2021 13:44-0400 Body height 182.88 cm Referring Provider Unknown SQ-Toypttswzr-Qorx dview [facility] Work Phone: 06-24-2021 13:44-0400 Body mass index (BMI) [Ratio] 24.36 kg/m2 Referring Provider Unknown NQ-Atfgvreaxx-Qbvi dview [facility] Work Phone: 06-24-2021 13:44-0400 Body surface area Derived from formula 2.04 m2 Referring Provider Unknown DN-Lgphrykvmk-Msxz dview [facility] Work Phone: 06-24-2021 13:44-0400 Body weight 81.47 kg Referring Provider Unknown YA-Ihhaujcrfi-Uviz dview [facility] Work Phone: 06-24-2021 13:44-0400 Diastolic blood pressure 75 mm[Hg] Referring Provider Unknown EQ-Jkzbywlqhh-Qzwg dview [facility] Work Phone: 06-24-2021 13:44-0400 Heart rate 81 /min Referring Provider Unknown HF-Bvpshnbawk-Xnnz dview [facility] Work Phone: 06-24-2021 13:44-0400 Systolic blood pressure 138 mm[Hg] Referring Provider Unknown YR-Annptlftwb-Yisq dview [facility] Work Phone: 06-24-2021 13:44-0400 0 1 Referring Provider Unknown ZX-Obnfsyrepz-Amoq dview [facility] Work Phone: Comment on above: [facility] 05-15-2021 11:29-0400 Body height 182.88 cm Referring Provider Unknown IS-Ydxhulckwm-Nhgx na 140 [place] Work Phone: 05-15-2021 11:29-0400 Body mass index (BMI) [Ratio] 24.28 kg/m2 Referring Provider Unknown EF-Qkfgfwwcsp-Krqh na 140 [place] Work Phone: 05-15-2021 11:29-0400 Body surface area Derived from formula 2.03 m2 Referring Provider Unknown DU-Eiujazcnoa-Rmbu na 140 [place] Work Phone: 05-15-2021 11:29-0400 Body weight 81.19 kg Referring Provider Unknown RS-Gkbpiwyncp-Atbi na 140 [place] Work Phone: 05-15-2021 11:29-0400 Diastolic blood pressure 86 mm[Hg] Referring Provider Unknown GZ-Gihquicrob-Wucn na 140 [place] Work Phone: 05-15-2021 11:29-0400 Heart rate 82 /min Referring Provider Unknown ZA-Oqkgunlyap-Bytu na 140 [place] Work Phone: 05-15-2021 11:29-0400 SaO2% (BldA) [Mass fraction] 94 % Referring Provider Unknown IE-Wtvkldjllx-Yiul na 140 [place] Work Phone: 05-15-2021 11:29-0400 Systolic blood pressure 180 mm[Hg] Referring Provider Unknown VZ-Qfrqyezvii-Lgtr na 140 [place] Work Phone: 05-15-2021 11:29-0400 0 1 Referring Provider Unknown KM-Qflrsntvwn-Opca na 140 [place] Work Phone: Comment on above: [facility] Encounters Encounter Date Encounter Type Care Provider Facility Start: 05-03-2025 ambulatory Efewongbe Oleghe OLS Fa cility:[facility] Start: 05-02-2025 ambulatory Efewongbe Oleghe OLS Fa cility:[facility] Start: 04-26-2025 ambulatory Efewongbe Oleghe OLS Fa cility:[facility] Start: 03-29-2025 ambulatory Buzz ZHANG Fa cility:[facility] Start: 03-29-2025 [facility] Start: 2025 End: 2025 ambulatory HARJINDER MAREHARMONY SANTOSMAR Facility:[facility] Start: 2025 End: 2025 Patient encounter procedure Harjinder Jones MD Work Phone: Cardiology Comment on above: Primary hypertension (Primary Dx); 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 Start: 03-01-2025 End: 03-01-2025 Departed Referred Buzz Rainey MD -[facility] Start: 02-28-2025 End: 03-01-[address] Felix Montelongo MD Work Phone: [facility] Work Phone: Start: 02-28-2025 End: 02-28-2025 [facility]ed [facility] Start: 02-27-2025 End: 02-27-[address] Ozzy Bro MD -[facility] Work Phone: Start: 02-27-2025 End: 02-28-2025 ambulatory Buzz ZHANG Facility:[facility] Start: 02-26-2025 End: 02-26-[address] Felix Montelongo MD Work Phone: [facility] Work Phone: Start: 02-26-2025 End: 02-26-2025 Patient encounter procedure Abeba CERVANTES -[facility] Work Phone: Start: 01-31-2025 End: 01-31-[address] Felix Montelongo MD Work Phone: [facility] Work Phone: Start: 01-31-2025 End: 01-31-2025 Departed Referred Buzz Ashraf Start: 01-31-2025 End: 01-31-2025 ambulatory Buzz ZHANG Facility:[facility] Start: 01-22-2025 End: 01-22-2025 ambulatory HARJINDER JONES Facility:[facility] Start: 01-22-2025 End: 01-22-2025 ambulatory HARJINDER JONES Facility:[facility] Start: 01-22-2025 End: 01-22-2025 Patient encounter procedure Harjinder Jones MD Work Phone: Cardiology Comment on above: Palpitations (Primar y Dx); Diastolic congestive heart failure, unspecified HF chronicity (HCC); Atherosclerosis of saxman coronary artery of saxman heart without angina pectoris Start: 01-04-2025 End: 01-04-2025 Patient encounter procedure [facility] Work Phone: Start: 01-04-2025 End: 01-04-2025 ambulatory Abeba Peacock Facility:[facility] Start: 01-04-2025 Registered Referred Buzz Ashraf Start: 12-26-2024 End: 12-26-2024 ambulatory Buzz Rainey Facility:[facility] Start: 12-26-2024 End: 12-26-[address] [facility] Work Phone: Start: 12-21-2024 End: 12-21-2024 ambulatory Abeba Peacock Facility:[facility] Start: 12-21-2024 End: 12-21-2024 Patient encounter procedure Abeba Madonna FOX RAISERParvin -[facility] Work Phone: Start: 12-19-2024 End: 12-19-2024 ambulatory Buzz Monreallana Facility:[facility] Start: 12-19-2024 End: 12-19-[address] Buzz Rainey MD -[facility] Work Phone: Start: 12-07-2024 ambulatory Eftamanna Monreale OLS Fa cility:[facility] Start: 12-07-2024 Registered Referred Buzz Ashraf Start: 12-04-2024 End: 12-04-2024 ambulatory Abeba Peacock Facility[facility] Start: 12-04-2024 End: 12-04-2024 Patient encounter procedure Abeba Madonna FOX RAISERParvin -[facility] Work Phone: Start: 12-02-2024 ambulatory Rita Calixto NP Fa cility:[facility] Start: 11-30-2024 End: 11-30-[address] Margie Gary MD -[facility] Work Phone: Start: 11-30-2024 End: 11-30-2024 ambulatory Margie Gary Facility:[facility] Start: 11-30-2024 ambulatory Eftamanna Rainey OLS Fa cility:[facility] Start: 11-30-2024 Registered Referred Buzz Huddleston Start: 11-23-2024 ambulatory Efewhueybe Rahe OLS Fa cility:[facility] Start: 11-23-2024 Registered Referred Buzz Huddleston Start: 11-16-2024 ambulatory Efewhueybe Rahe OLS Fa cility:[facility] Start: 11-16-2024 Registered Referred Buzz Huddleston Start: 11-09-2024 ambulatory Efewarthur Monreale OLS Fa cility:[facility] Start: 11-09-2024 Registered Referred Buzz Huddleston Start: 11-07-2024 End: 11-07-2024 ambulatory Buzz Rainey Facility:[facility] Start: 11-07-2024 End: 11-07-[address] Buzz Rainey MD -[facility] Work Phone: Start: 11-03-2024 [facility] Start: 11-03-2024 Registered Referred Buzz Huddleston Start: 11-02-2024 End: 11-02-2024 ambulatory Abeba Peacock Facility:[facility] Start: 11-02-2024 End: 11-02-2024 Patient encounter procedure Abeba Peacock FOX RAISER-C -[facility] Work Phone: Start: 11-01-2024 Non-patient / Non-visit Dr. Sung Richardson [facility] Work Phone: Start: 10-31-2024 ambulatory Ozzy Dieudonne Facility:[facility] Start: 10-31-2024 Non-patient / Non-visit Dr. Sung westbrook [facility] Work Phone: Start: 10-30-2024 Non-patient / Non-visit Dr. Sung Richardson [facility] Work Phone: Start: 10-29-2024 Non-patient / Non-visit Dr. Marilu Laurent [facility] Work Phone: Start: 10-28-2024 Non-patient / Non-visit Dr. Marilu Laurent [facility] Work Phone: Start: 10-28-2024 ambulatory Felix Montelongo Facility:[facility] Start: 10-28-2024 Non-patient / Non-visit Dr. Angela gilmore MD -[facility] Start: 10-27-2024 ambulatory Sulma Romero [facility] Start: 10-27-2024 End: 11-01-2024 Evaluation and management of inpatient Dr. Sung Rhodes DO -[facility] Work Phone: Start: 10-26-2024 End: [...] about it? Start: 10-25-2024 ambulatory Rita Calixto FOX RAISER Fa cility:[facility] Start: 10-25-2024 End: 11-21-2024 ambulatory Rita Calixto FOX RAISER Facility:[facility] Start: 09-11-2024 End: 09-11-2024 Refill Harjinder Jones MD Work Phone: [address] [place] [address] Comment on above: Refill Request Start: 02-01-2024 End: 02-01-2024 ambulatory Rocío Denbow PA-C Work Phone: [facility] [place] Comment on above: Controlled type 2 di abetes mellitus without complication, without long-term current use of insulin (HCC) (Primary Dx); Acquired hypothyroidism; Stage 3a chronic kidney disease (HCC); Parkinson's disease, unspecified whether dyskinesia present, unspecified whether manifestations fluctuate (HCC) Start: 02-01-2024 End: 02-01-2024 Telemedicine consultation with patient Rocío Cookbow PA-C Work Phone: [facility] [place] Start: 01-05-2024 ambulatory Rocío Denbow PA-C Work Phone: [facility] [place] Comment on above: Roller thing. Would like a prescription to [facility]. Start: 01-05-2024 Telephone encounter Felix Montelongo MD Work Phone: [facility] [place] Comment on above: patient update on fa ll Start: 01-04-2024 End: 01-04-2024 Patient encounter procedure Rocío Denbow PA-C Work Phone: [facility] [place] Comment on above: Controlled type 2 di abetes mellitus without complication, without long-term current use of insulin ([facility]) (Primary Dx); Acquired hypothyroidism; Parkinson's disease, unspecified whether dyskinesia present, unspecified whether manifestations fluctuate; CIDP (chronic inflammatory demyelinating polyneuropathy) ([facility]); Essential tremor; Post herpetic neuralgia; Stage 3a chronic kidney disease ([facility]) Start: 07-07-2023 End: 07-07-2023 ambulatory Marni Hudson MD Work Phone: Neurology Comment on above: Parkinson disease ([facility]) (Primary Dx); Slow transit constipation Start: 07-07-2023 End: 07-07-2023 Telemedicine consultation with patient Marni Hudson MD Work Phone: [facility] Start: 06-29-2023 End: 06-29-2023 ambulatory [facility] Work Phone: Start: 06-29-2023 End: 06-29-2023 Patient encounter procedure [facility] Work Phone: Start: 02-19-2023 Telephone encounter [...] Dr. Felix Montelongo Work Phone: [facility] Start: 06-04-2022 End: 06-04-[address] Felix Montelongo Work Phone: [facility] Start: 05-26-2022 Telephone encounter Marni whiting MD Work Phone: Neurology Comment on above: Opened In Error Start: 05-17-2022 E-mail encounter fro m caregiver Marni Hudson MD Work Phone: [facility] Start: 05-17-2022 Patient encounter procedure Marni Hudson MD Work Phone: Neurology Comment on above: Request an Appointme nt Start: 03-25-2022 Telephone encounter Marni whiting MD Work Phone: Neurology Comment on above: upcoming appointment (pre-rooming phone call) Start: 06-24-2021 Current tobacco non- user cad cap copd pv dm Referring Provider Unknown OW-Gxzkvziyxc-Bxgipxbaa [facility] Work Phone: Start: 05-15-2021 Patient encounter procedure Referring Provider Unknown IN-Vwbrcurtpv-Ninkfj [address] [place] Work Phone: Start: 10-25-2018 [facility]ulatory [facility] Facility :[facility] Start: 02-23-2018 End: 02-23-[address] [facility] Facility:[facility] Start: 01-31-2018 Ambulatory NICOLA PAYNE Facil ity:[facility] Procedures Date Procedure Procedure Detail Performing Clinician [...] to lateral CX per Dr. Garfield Dempsey, [facility] Cardiac catheterization Refe rring Provider Unknown Coronary artery bypass graft Referring Provider Unknown Plan of Treatment Date Care Activity Detail Author Start: 03-06-2026 End: 03-06-2026 Patient encounter procedure 03/06/2026 11:00 AM EDT Office Visit [facility] [employer] [address] [place] [address] Kwan Estrella MD [address] [place] [address] (Fax) 1 yr f/u. eg [facility] [employer] Comment on above: 1 yr f/u. eg Start: 10-01-2025 End: 10-01-2025 Patient encounter procedure 10/01/2025 10:40 AM EST Office Visit Cardiology [address] [place] [address] Harjinder Jones MD [address] [place], [place] [phone] (Fax) 6 month follow up Cardiology Comment on above: 6 month follow up Start: 03-08-2025 Covid-19 Vaccine () Covid-19 Vaccine () [facility] Start: 2025 End: 2025 Patient encounter procedure 2025 11:00 AM EDT Office Visit Cardiology [address] [place] [address] Harjinder Jones MD [address] [place] [address] (Fax) 6 weeek follow up Cardiology Comment on above: 6 weeek follow up Start: 01-22-2025 End: 04-23-2025 Natriuretic peptide.B prohormone N-Terminal [Mass/volume] in Serum or Plasma [facility] Comment on above: Expected: 01/22/2025 , Expires: 04/23/2025 Start: 01-22-2025 End: 04-23-2025 Thyrotropin [Units/volume] in Serum or Plasma [facility] Comment on above: Expected: 01/22/2025 , Expires: 04/23/2025 Start: 01-22-2025 End: 01-22-2025 Patient encounter procedure 01/22/2025 1:40 PM EST Office Visit Cardiology [address] [place] [address] Harjinder Jones MD [address] [facility], [address] [place] [address] 6 month follow up from appt 11/29/23 Cardiology Comment on above: 6 month follow up fr om appt 11/29/23 Start: 11-22-2024 Advance Directive Discussion Advance Directive Discussion [facility] Start: 11-01-2024 Patient discharge [facility] Start: 10-29-2024 Following clinical pathway protocol [facility] Start: 10-28-2024 Following clinical pathway protocol [facility] Start: 10-28-2024 [facility] Start: 10-27-2024 Following clinical pathway protocol [facility] Start: 10-27-2024 Assessment of risk o f venous thromboembolism [facility] Start: 10-27-2024 Care regimes management [facility] Start: 10-27-2024 Insertion of cathete r into peripheral vein [facility] Start: 10-27-2024 Measuring intake and output [facility] Start: 10-27-2024 Notification of physician [facility] Start: 10-27-2024 Providing care accor ding to standard [facility] Start: 10-27-2024 Provision of activit y privileges [facility] Start: 10-27-2024 Referral to occupati onal therapist [facility] Start: 10-27-2024 Referral to service [facility] Start: 10-27-2024 End: 10-27-2024 [facility] Start: 10-27-2024 Admission procedure [facility] Start: 07-23-2024 Covid-19 Vaccine ( season) Covid-19 Vaccine ( season) [facility] Start: 07-23-2024 Influenza vaccination Influenza Vacc ine (#1) [facility] Start: 03-13-2024 End: 06-12-2024 Thyrotropin [Units/volume] in Serum or Plasma TSH BLD Lab Routine Acquired hypothyroidism Expected: 03/13/2024, Expires: 06/12/2024 [facility] Work Phone: Comment on above: Expected: 03/13/2024 , Expires: 06/12/2024 Start: 02-01-2024 End: 05-02-2024 CBC W Auto Differential panel - Blood CBC + DIFF Lab Routine Stage 3a chronic kidney disease (HCC) Controlled type 2 diabetes mellitus without complication, without long-term current use of insulin (HCC) Parkinson's disease, unspecified whether dyskinesia present, unspecified whether manifestations fluctuate (HCC) Expected: 02/01/2024, Expires: 05/02/2024 [facility] Work Phone: Comment on above: Expected: 02/01/2024 , Expires: 05/02/2024 Start: 02-01-2024 End: 05-02-2024 Hemoglobin A1c in Blood HGB A1C Lab Routine Controlled type 2 diabetes mellitus without complication, without long-term current use of insulin ([facility]) Expected: 02/01/2024, Expires: 05/02/2024 [facility] Work Phone: Comment on above: Expected: 02/01/2024 , Expires: 05/02/2024 Start: 01-04-2024 End: 04-04-2024 Basic metabolic 2000 panel - Serum or Plasma [facility] Work Phone: Comment on above: Expected: 01/04/2024 , Expires: 04/04/2024 Start: 01-04-2024 End: 04-04-2024 Thyrotropin [Units/volume] in Serum or Plasma [facility] Work Phone: Comment on above: Expected: 01/04/2024 , Expires: 04/04/2024 Start: 11-22-2023 Advance Directive Discussion Advance Directive Discussion [facility] Start: 11-22-2023 Depression Assessment Depression Ass essment [facility] Start: 07-23-2023 Influenza vaccination INFLUENZA (#1) [facility] Start: 06-29-2023 Adult depression screening assessment DEPRESSION SCREENING [facility] Start: 01-19-2023 COVID-19 VACCINE (6 - Pfizer series) COVID-19 VACCINE (6 - Pfizer series) [facility] Start: 11-22-2022 ADVANCE DIRECTIVE DISCUSSION ADVANCE DIRECTIVE DISCUSSION [facility] Start: 11-22-2022 DEPRESSION ASSESSMENT DEPRESSION ASS ESSMENT [facility] Start: 09-24-2022 Adult depression screening assessment DEPRESSION SCREENING [facility] Start: 07-23-2022 Influenza vaccination INFLUENZA (#1) [facility] Start: 06-04-2022 Testosterone measurement [facility] Work Phone: Start: 05-01-2022 COVID-19 VACCINE (5 - Booster for Pfizer series) COVID-19 VACCINE (5 - Booster for Pfizer series) [facility] Start: 12-15-2021 COVID-19 VACCINE (4 - Booster for Pfizer series) COVID-19 VACCINE (4 - Booster for Pfizer series) [facility] Start: 11-22-2021 ADVANCE DIRECTIVE DISCUSSION ADVANCE DIRECTIVE DISCUSSION [facility] Start: 11-22-2021 DEPRESSION ASSESSMENT DEPRESSION ASS ESSMENT [facility] Start: 07-10-2021 ECHO, Provider: AISHA RHODES,MG CARD, Status: Pen, Time: 10:00 AM QE-Ebtmrjtxnx-Ipiyx view [facility] Work Phone: Start: 02-23-2019 Hepatitis B surface antibody level LDL CHOLESTEROL [facility] Start: 10-28-2016 Pneumococcal Vaccine : 50+ (2 of 2 - PPSV23) Pneumococcal Vaccine: 50+ (2 of 2 - PPSV23) [facility] Start: 10-28-2016 Pneumococcal Vaccine : 65+ (2 of 2 - PPSV23 or PCV20) Pneumococcal Vaccine: 65+ (2 of 2 - PPSV23 or PCV20) [facility] Start: 09-13-2012 Urine microalbumin profile DTaP,Tdap,Td Vaccine (1 - Tdap) [facility] Start: 07-11-2010 Urine microalbumin profile DTAP,TDAP,TD (1 - Tdap) [facility] Start: 2007 PNEUMOVAX AGE 65 AND OVER WITH 5YR LOOKBACK (#1) PNEUMOVAX AGE 65 AND OVER WITH 5YR LOOKBACK (#1) [facility] Start: 1992 SHINGRIX VACCINE (1 of 2) HINTON GRIX VACCINE (1 of 2) [facility] Start: 1960 ANNUAL PCP TEAM DIETETIC TECHNICIAN REGISTERED BRYCE DISEASE VISIT ANNUAL PCP TEAM CHRONIC DISEASE VISIT [facility] Start: 1960 Anxiety Screening Anxiety Screening [facility] Start: 1960 Depression Screening Depression Scre ening [facility] Start: 1952 3 comp foot exam completed DIABETIC FOOT EXAM [facility] Start: 1952 Diabetic foot examination Diabetic F oot Exam [facility] Start: 1952 Glaucoma screening Dilated Retinal E xam [facility] Start: 1952 Hepatitis B screening URINE AL BUMIN:CREATININE RATIO [facility] Start: 1952 Hepatitis C antibody , confirmatory test DILATED RETINAL EXAM [facility] Start: 1948 PNEUMOCOCCAL: 65+ (1 - PCV) PNEUMOCOCCAL: 65+ (1 - PCV) [facility] Start: 1947 Hemoglobin A1c measurement HbA1C [facility] Start: 1947 Hemoglobin A1c/Hemoglobin.total in Blood HBA1C [facility] NM Heart Views W str ess and W radionuclide IV [facility] OUTSIDE VENDOR CARDI AC OUTPATIENT EXTENDED RHYTHM RECORDING (WITHOUT TELEMETRY) OUTSIDE VENDOR CARDIAC OUTPATIENT EXTENDED RHYTHM RECORDING (WITHOUT TELEMETRY) Holter Routine Palpitations Ordered: 01/22/2025 [facility] Work Phone: Comment on above: Ordered: 01/22/2025 Patient Education Urinary Tract Infections in Men UTIs Chest Pain [facility] Work Phone: Patient referral [facility] Work Phone: T4 free measurement [facility] Work Phone: Testosterone Free [Mass/volume] in Serum or Plasma [facility] Work Phone: Testosterone measurement [facility] Work Phone: [facility] [facility] Immunizations Immunization Date Immunization Notes Care Provider Otf isidro 09-13-2023 influenza virus vaccine, unspecified formulation Harjinder Jones MD Work Phone: [facility] 09-23-2020 influenza, injectabl e, quadrivalent, preservative free [facility] 09-23-2020 influenza, seasonal, injectable Dr. Felix Montelongo Work Phone: [facility] Work Phone: 09-05-2014 pneumococcal conjuga te vaccine, [address] Felix Montelongo Work Phone: [facility] 07-23-2014 influenza, injectabl e, quadrivalent, preservative free [facility] 07-23-2014 influenza, seasonal, injectable Dr. Felix Montelongo Work Phone: [facility] Work Phone: 07-10-2010 tetanus and diphther ia toxoids, adsorbed, preservative free, for adult use (2 Lf of tetanus toxoid and 2 Lf of diphtheria toxoid) Marni Hudson MD Work Phone: [facility] Work Phone: 08-22-2007 pneumococcal conjuga te vaccine, 7 valent Marni Hudson MD Work Phone: [facility] Payers Date Payer Category Payer Self-pay [id number] 2022 Medicare [employer] [place] [id number] 2022-Present [phone] [address] [place] [address] [facility] [id number] 2022 [place] Care[place] [id number] 2022 Medicare [id number] 2020 Medicare AETNA MEDICARE A ETNA MEDICARE PPO [id number] 2020-Present [phone] [facility] [address] [place] [address] PPO [id number] 2016 Medicare [id number] Private Health Insurance NVB [id number] Private Health Insurance NVB VGRSY [id number] Private Health Insurance [id number] Unknown AETNA Unknown [id number] 2.16.840.1.200533.3.579 .2.462 Unknown [id number] 2.16840.1.887168.3.579 .2.462 Unknown [id number] 2.16.840.1.266924.3.579 .2.462 Unknown [id number] 2.16.840.1.593865.3.579 .2.462 Unknown [id number] 2.16.840.1.012836.3.579 .2.462 Unknown [id number] 2.16.840.1.407913.3.579 .2.462 Unknown [id number] 2.16.840.1.185801.3.579 .2.462 Unknown [id number] 2.16840.1.528718.3.579 .2.462 Unknown [id number] 2.16840.1.358821.3.579 .2.462 Unknown [id number] 2.16.840.1.413341.3.579 .2.462 Unknown [id number] 2.16.840.1.083206.3.579 .2.462 Unknown [id number] 2.16.840.1.642649.3.579 .2.462 Unknown [id number] 2.16.840.1.715119.3.579 .2.462 Unknown [id number] 2.16.840.1.968140.3.579 .2.462 Unknown [id number] 2.16840.1.856140.3.579 .2.462 Unknown [id number] 2.16840.1.666786.3.579 .2.462 Unknown [id number] 2.840.1.046012.3.579 .2.462 Unknown [id number] 2.840.1.954140.3.579 .2.462 Unknown [id number] 2.840.1.642160.3.579 .2.462 Unknown [id number] 2.840.1.672389.3.579 .2.462 Unknown [id number] 2.840.1.405243.3.579 .2.462 Unknown [id number] 2.840.1.354867.3.579 .2.462 Unknown [id number] 2.16840.1.228217.3.579 .2.462 Unknown [id number] 2.840.1.312084.3.579 .2.462 Unknown [id number] 2.16840.1.977628.3.579 .2.462 Unknown [id number] 2.16.840.1.829865.3.579 .2.462 Unknown [id number] 2.16840.1.137565.3.579 .2.462 Unknown [id number] 2.16.840.1.628606.3.579 .2.462 Unknown [id number] 2.840.1.834053.3.579 .2.462 Unknown [id number] 2.16.840.1.920306.3.579 .2.462 Unknown [id number] 2.16.840.1.223387.3.579 .2.462 Social History Date Type Detail Facility Start: 06-29-2022 End: 11-09-2024 Tobacco smoking status NHIS Never smoked tobacco [facility] Start: 10-20-2021 End: 2025 Alcohol intake Lifetime non-drinker (finding) [facility] Start: 09-25-2021 History SDOH Alcohol Frequency 1 [facility] Start: 1940 Sex Assigned At Not on file [facility] Start: 06-04-2022 End: 05-07-2023 Tobacco smoking status NHIS Unknown if ever smoked [facility] Start: 04-21-2021 None [facility] Start: 04-21-2021 Non-smoker [facility] Start: 1940 Sex Assigned At Male [facility] Start: 06-29-2022 Tobacco use and exposure Smokeless tobacco non-user [facility] Start: 06-19-2022 End: 06-29-2022 Exposure to SARS-CoV-2 (event) Not sure [facility] Start: 06-29-2022 End: 07-07-2023 History of Social function [facility] Start: 06-29-2022 End: 07-07-2023 Tobacco use panel [facility] Adult Depression Screening Assessment 2 [facility] Start: 07-28-2018 Spouse/ Signif icant Other [facility] Start: 02-23-2025 Sex Male (finding) [facility] Medical Equipment Procedure Code Equipment Code [...] Assessment Result Facility 11-01-2024 Functional status Ambulates [facility] Work Phone: 04-23-2021 Are you deaf, or do you have serious difficulty hearing No 04/23/2021 5:34 PM Randi Scott, LINSEY [facility] 04-23-2021 Are you blind, or do you have serious difficulty seeing, even when wearing glasses No 04/23/2021 5:34 PM Randi Scott, LINSEY No [facility] 04-23-2021 Do you have serious difficulty walking or climbing stairs No 04/23/2021 5:34 PM Randi Scott, LINSEY No [facility] 04-23-2021 Do you have difficul ty dressing or bathing No 04/23/2021 5:34 PM Randi Scott, LINSEY No [facility] 04-23-2021 Because of a physica l, mental, or emotional condition, do you have difficulty doing errands alone such as visiting a physician's office or shopping No 04/23/2021 5:34 PM EDT Randi Archuleta RN No [facility] Mental Status Date Assessment Result Facility 11-01-2024 Cognitive function Voice/Name [facility] Work Phone: 04-23-2021 Because of a physica l, mental, or emotional condition, do you have serious difficulty concentrating, remembering, or making decisions No 04/23/2021 5:34 PM Randi Scott RN No [facility] Clinical Notes 03-25-2022 to 2025 Harjinder Jones MD - 2025 12:12 PM EDTPatient Kwan Chand MD - 03/02/2025 10:20 AM EDT Note Date & Type Note Facility 2025 Note HNO ID: [id number] Author: HARJINDER JONES MD Service: ? Author Type: Physician Type: Progress Notes Filed: 2025 12:16 Note Text: Harjinder Jones MD Interventional Cardiology [address] [place] [address] [phone] Chief Complaint Patient presents with: Follow Up: 6 week follow up, c/o chest pain HISTORY OF PRESENT ILLNESS: Mr. Kline is a 85 year old male seen in my office today for follow-up patient had a prior history of severe saxman coronary artery disease with prior history of [...] for this visit. (more content not included)... [facility] 2025 History of Present illness Narrative Images from the original note were not included. Harjinder Jones MD Interventional Cardiology [address] [place] [address] [phone] Chief Complaint Patient presents with: Follow Up: 6 week follow up, c/o chest pain HISTORY OF PRESENT ILLNESS: Mr. Kline is a 85 year old male seen in my office today for follow-up patient had a prior history of severe saxman coronary artery disease with prior history of [...] 12.8 07/14/2018 Test sent to [facility]. Hematocrit (%) Date Value 01/22/2025 37.7 07/14/2018 Test sent to [facility]. WBC (k/uL) Date Value 01/22/2025 5.09 07/14/2018 Test sent to [facility]. Platelet Count (k/uL) Date Value 01/22/2025 216 07/14/2018 Test sent to [facility]. BMP: Glucose (mg/dL) Date Value 01/22/2025 [...] Status 02/23/2018 Test sent to [facility]. <200 mg/dL Final Comment: Account Credited HIDE HDL Cholesterol Date Value Ref Range Status 02/23/2018 Test sent to [facility]. >39 mg/dL Final Comment: Account Credited HIDE LDL Cholesterol Date Value Ref Range Status 02/23/2018 Test sent to [facility]. <100 mg/dL Final Comment: Account Credited HIDE Triglyceride Date Value Ref Range Status 02/23/2018 Test sent to [facility]. <150 mg/dL Final Comment: Account Credited [...] aerobic exercise 2. Coronary artery disease involving saxman coronary artery of saxman heart without angina pectoris - ICD9: 414.01, [...] correct any errors. documented in this encounter [facility] 03-02-2025 Instructions Kwan Estrella MD - [...] at that time. documented in this encounter [facility] 03-02-2025 History of Present illness Narrative Images from the original note were not included. [facility] [place] [employer] [facility] SECTION OF CARDIAC PACING and ELECTROPHYSIOLOGY OUTPATIENT VISIT DATE March 02, 2025 OUTPATIENT VISIT TYPE NEW PRIMARY CARE PHYSICIAN: Vincent Espinosa [address] [place] [address] REFERRING PHYSICIAN: Harjinder Jones [address], [address] [facility] [address] chief complaint on file. HISTORY OF PRESENT [...] currently a resident at [facility]. Had a recent UTI in 10/2024, still [...] fibrillation ECG 11/29/23 - SR 77 bpm RI 210 QRS 102 QT/c 364 411 PVC [...] rare (<1.0%). Isolated VEs were rare (<1.0%, 22338), VE Couplets were rare (<1.0%, 63), and [...] central nervous system(341.8) Peripheral vascular disease, unspecified ([facility]) Type II or unspecified type diabetes [...] hands EKG 03/02/25 .Sinus rhythm 68 bpm RI 264ms First degree AVB QRS 96ms QT/c [...] MD This note was partially generated using Sicubo voice recognition system. documented in this encounter [facility] 03-02-2025 Note HNO ID: [id number] Author: KWAN ESTRELLA MD Service: ? Author Type: Physician Type: Progress Notes Filed: 03/02/2025 11:18 Note Text: [facility] [place] [facility] SECTION OF CARDIAC PACING and ELECTROPHYSIOLOGY OUTPATIENT VISIT DATE March 02, 2025 OUTPATIENT VISIT TYPE NEW PRIMARY CARE PHYSICIAN: Vincent Espinosa [address] [place] [address] REFERRING PHYSICIAN: Harjinder Jones [address], [address] [facility] [address] chief complaint on file. HISTORY OF PRESENT [...] currently a resident at [facility]. Had a recent UTI in 10/2024, still [...] fibrillation ECG 11/29/23 - SR 77 bpm RI 210 QRS 102 QT/c 364 411 PVC [...] rare (<1.0%). Isolated VEs were rare (<1.0%, 98825), VE Couplets were rare (<1.0%, 63), and [...] No social hist (more content not included)... [facility] 02-27-2025 Evaluation note Diagnosis Onset Date Resolution Type 2 diabetes mellitus acute February 27, 2025 10:51am CAD (coronary artery disease) chronic February 27, 2025 10:51am CKD (chronic kidney disease) chronic February 27, 2025 10:51am [employer] Work Phone: 1(902) 278-755303-03-2025 NoteHNO ID: [id number] Author: BLANCA MARCELINO LPN Service: ? Author Type: LICENSED NURSE Type: Progress Notes Filed: 01/22/2025 15:05 Note Text: EVENT MONITOR DISPOSABLE PATCH INSTRUCTIONS Patient Name: Flex J [facility] Number: [id number] Skin prepped and cleansed with alcohol Patch secured to prepped area Monitor Activated Serial #: [id number] Patient Instructed: Prescribed order timeframe Bathing guidelines Usage of event button and diary documentation Return of monitor at the end of prescribed order Call with problems [phone] or [phone]. [phone] Patient expresses a good understanding of instructions [facility] History of Present illness Narrative* Blanca Marcelino LPN - 01/22/2025 3:04 PM EST EVENT MONITOR DISPOSABLE PATCH INSTRUCTIONS Patient Name: Flex J [facility] Number: [id number] Skin prepped and cleansed with alcohol Patch secured to prepped area Monitor Activated Serial #: [id number] Patient Instructed: Prescribed order timeframe Bathing guidelines Usage of event button and diary documentation Return of monitor at the end of prescribed order Call with problems [phone] or [phone]. [phone] Patient expresses a good understanding of instructions Blanca Marcelino LPN * Harjinder Jones MD - 01/22/2025 2:34 PM EST Images from the original note were not included. Harjinder Jones MD Interventional Cardiology [address] [place] [address] [phone] Chief Complaint Patient presents with: Follow Up: [...] 12.5 07/14/2018 Test sent to [facility]. Hematocrit (%) Date Value 04/22/2021 36.8 07/14/2018 Test sent to [facility]. WBC (k/uL) Date Value 04/22/2021 5.50 07/14/2018 Test sent to [facility]. Platelet Count (k/uL) Date Value 04/22/2021 197 07/14/2018 Test sent to [facility]. BMP: Glucose (mg/dL) Date Value 01/04/2024 [...] Status 02/23/2018 Test sent to [facility]. <200 mg/dL Final Comment: Account Credited HIDE HDL Cholesterol Date Value Ref Range Status 02/23/2018 Test sent to [facility]. >39 mg/dL Final Comment: Account Credited HIDE LDL Cholesterol Date Value Ref Range Status 02/23/2018 Test sent to [facility]. <100 mg/dL Final Comment: Account Credited HIDE Triglyceride Date Value Ref Range Status 02/23/2018 Test sent to [facility]. <150 mg/dL Final Comment: Account Credited [...] to check his BMP 3. Atherosclerosis of saxman coronary artery of saxman heart without angina pectoris - ICD9: 414.01, ICD10: I25.10 Stable status prior history of bypass surgery Harjinder Jones MD Follow up plannin weeks Electronically signed by Harjinder Jones MD on January 22, 2025, 2:34 PM The above note was partially created using a dictation recognition software. A reasonable attempt has been made to correct any errors. documented in [facility]03-[facility]-2025 NoteHNO ID: [id number] Author: HARJINDER JONES MD Service: ? Author Type: Physician Type: Progress Notes Filed: 01/22/2025 14:39 Note Text: Harjinder Jones MD Interventional Cardiology [address] [place] [address] [phone] Chief Complaint Patient presents with: Follow Up: [...] loss, nosebleeds, sinus concepcion (more content not included)...[facility] 01-22-2025 NoteHNO ID: [id number] Author: HARJINDER JONES MD Service: ? Author [...] rare (<1.0%). Isolated VEs were rare (<1.0%, 18966), VE Couplets were rare (<1.0%, 63), and VE Triplets were rare (<1.0%, 19). Ventricular Bigeminy and Trigeminy were present. Difficulty discerning atrial activity making definitive diagnosis difficult to ascertain.[facility]01-09-2025 Evaluation note* Diagnosis Onset Date Resolution [...] chronic February 27, 2025 10:51am [facility] Work Phone: [phone]) 997-645512-20-2024 Telephone encounter Note* Telephone Encounter - Florence Reed MA - 11/10/2024 11:09 AM EST Called pt to offer appt on cancellation list. Pt is currently in rehab facility and unable to come.Will call once he is out if needs to be seen sooner. Florence Reed MA [facility]12-20-2024 Miscellaneous Notes* Telephone Encounter - Florence [...] Ana Laura Rosario RN documented in this encounterL[facility]12-13-2024 Telephone encounter Note * Telephone Encounter - Ana Laura Rosario RN - 11/03/2024 9:09 AM EST Called and left VM asking the patient to call back to schedule and office visit. If patient calls back please offer 11/13/24 at 1:20pm or 11/27/24 at 1:20pm and ask for an update on the patient's symptoms. Ana Laura Rosario RN [facility]12-11-2024 [facility] Medical Records Department [address] [place] [id number] Discharge Summary 11/01/24 1501 MR#: [id number] Acct: [id number] Name: FLEX KLINE Rep #: [id number] : 1940 84 From: Sung Rhodes DO PCP: Dr. Felix Montelongo MD Status:ADM IN Location: [facility] [id number] Providers Date of Admission: 10/27/24 Primary Care [...] on Synthroid VTE prophylaxis: LMWH Disposition: to [facility] pending insurance authorization. 10/31: Talked about [...] YOUNGER s (more content not included)...[facility]12-06-2024 Evaluation note* Diagnosis Onset Date Resolution Status Admit Date Acute UTI resolved October 27, 2024 4:33pm Chest pain resolved October 27, 2024 4:33pm CAD (coronary artery disease) chronic November 30 9:59am Chest pain chronic November 30, 025 9:59am Diabetes chronic November 30 025 9:59am Diastolic dysfunction chronic Rico uary 2024 9:59am Dyslipidemia chronic November 30, 2024 9:59am Essential hypertension chronic Ja nuary 2024 9:59am Parkinson's disease chronic Novua ry 2024 9:59am 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 Please Advise An aLaura Rosario RN [facility]10-21-2024 Telephone encounter Note* Telephone Encounter - [...] IF NO RELIEF CALL 911 Ruth Ann September 11, 2024 8:46 AM [facility]10-21-2024 Miscellaneous Notes* Telephone Encounter - Ruth [...] FOR CHEST PAIN. IF NO RELIEF CALL 91 Ruth Ann September 11, 2024 8:46 AM documented in this encounterLanc[facility]03-12-2024 History of Present illness Narrative* Rocío [...] visit. Either the patient or their legal telephone claims representative has been informed of the risks [...] Parkinson's and associated tremors. Last A1c at [facility] was in 07/14 was 6.9. REVIEW [...] care. Rocío Wagner PA-C documented in this encounterL[facility]02-27-2024 Miscellaneous Notes* Telephone Encounter - Juliana [...] pt. Florence Santos LPN documented in this encounterLanc[facility]02-14-2024 Miscellaneous Notes* Telephone Encounter - Rocío [...] prescription? Rocío Wagner PA-C documented in this encounterL[facility]02-13-2024 History of Present illness Narrative* Rocío Wagner PA-C - 01/04/2024 3:13 PM EST CC: Patient presents with: New Patient HPI Flex Kline is a 83 year old male who presents [facility] to [facility]. Had comprehensive blood panel done about [...] GFR 46 from most recent labs through [facility] in 07/14. 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 REVIEW OF SYSTEMS See HPI All other [...] central nervous system(341.8) Peripheral vascular disease, unspecified ([facility]) Type II or unspecified type diabetes [...] complication, without long-term current use of insulin ([facility]) - ICD9: 250.00, ICD10: E11.9 (primary [...] PNL 4. CIDP (chronic inflammatory demyelinating polyneuropathy) ([facility]) - ICD9: 357.81, ICD10: G61.81 See [...] plan. Rocío Wagner PA-C documented in this encounterLanc[facility]08-16-2023 Instructions* Patient Instructions* Marni Hudson MD [...] or you can send a message through [facility]. You can also now schedule and select appointments through [facility]. Marni Hudson MD Constipation and Other Gastrointestinal [...] future constipation. Treatments fall into two categories: xguf-ufh-ufjtuwl and prescription therapies. Remember: consult with your [...] day and your own convenience and preference. Nhqd-ogd-Haqfbjs Products Rvys-ooq-kmgfvec treatments for constipation can be purchased at [...] It also comes as a capsule (Senna [place] Smooth Move ). ving with PD Constipation [...] easier to pass. These can be used mcc but should not be used in combination [...] after other remedies have failed. Among the xafw-xao-wiiksxi laxatives, they are most likely to cause [...] psyllium (Perdiem ). Common Side Effects of Zuzt-wkd-Usgzacm Products for Constipation Emollient (Stool Softeners) Skin [...] any side effects listed. Prescription Products When hqym-efj-dhsvjfl remedies fail, your healthcare provider may recommend [...] Stimulant X Bisacodyl (Dulcolax ) Stimulant X Turner Oil Stimulant X Cellulose (Unifiber ) Bulk [...] ) Stimulant X Adapted from: [facility] Website, accessed March 17, 2016, www.Speedment/FiNC/druginformation/ VP918848 Special Precautions For your safety, consult your [...] Contributing authors: Candido Guzman, Ph.D., R.N., and Arina Cramer.Daniel., C.R.N.P. Constipation Tracker Day/Date Time Food(s) Eaten Activities Emotional Status Stool Description Feel free to photocopy this page and use it throughout the year to track your symptoms and share with your doctor. This is a patient education material provided by the Parkinson s [employer]. For more information and resources see https://www.parkinson.org/. [facility] is a Center of Excellence for the Parkinson s Foundation. documented in this encounterLancaster [facility] Hospital08-16-2023 History of Present illness Narrative* Marni Hudson MD - 07/07/2023 7:02 AM EDT [facility] - FOLLOW UP EVALUATION - VIRTUAL VISIT Felix Montelongo MD [address] [facility] [id number] Dear Felix Montelongo MD: I had the pleasure of seeing Mr. Kline for follow-up today. As you know he is a 83 year old right-handed male with a history of ET/PD since 2016(?) . Also with CIDP diagnosed 2012. Off treatment since 2017. He is seen alone. We had a visit using: [employer] I have communicated my name and active licensure. The patient's identity and physical location wereverified at the time of this visit. Either the patient or their legal telephone claims representative has been informed of the risks [...] to schedule and only given options of [employer] or [place]. Open to [facility]. Constipation. Prunes used [...] by mouth three times daily. 1/2 - tab 6 times daily) clopidogrel (PLAVIX) 75 [...] 1 1 1 Level of service : 12403 (40-54 min). Time spent 41 min on the day of service, which included preparing to see the patient, xmxw-lq-bizp patient care, completing clinical documentation, and counseling and educating the patient/family/caregiver. Thank you for allowing me to be part of the clinical care of this patient! I look forward to continued participation in the patient s care with you. Please do not hesitate to call with any questions. Sincerely, Marni Hudson MD documented in this encounterLancaster [facility] Hospital03-31-2023 Miscellaneous Notes* Telephone Encounter - Caitlin Peacock MA - 02/19/2023 7:56 AM EDT Message therapy order mailed to patient home per Dr. Hudson request documented in this encounterLancaster Municipal Hospital03-31-2023 Instructions* Patient Instructions* Marni Hudson MD [...] or you can send a message through [facility]. You can also now schedule and select appointments through [facility]. Marni Hudson MD documented in this encounterLancaster [facility] Hospital03-31-2023 History of Present illness Narrative* Marni Hudson MD - 02/19/2023 7:02 AM EDT [facility] - FOLLOW UP EVALUATION - VIRTUAL VISIT Felix Montelongo MD, MD [address] [facility] [address] Dear Felix Montelongo MD, MD: I had the pleasure of seeing Mr. Kline for follow-up today. As you know he is a 82 year old right-handed male with a history of ET/PD since 2016(?) . 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 We had a visit using: [employer] I have communicated my name and active licensure. The patient's identity and physical location wereverified at the time of this visit. Either the patient or their legal telephone claims representative has been informed of the risks [...] 1 1 1 Level of service : 69341 ( 30-39 min). Time spent 30 min on the day of service, which included preparing to see the patient, vpmb-rf-dlyj patient care, completing clinical documentation, counseling and educating the patient/family/caregiver, and ordering medications, tests, or procedures. Thank you for allowing me to be part of the clinical care of this patient! I look forward to continued participation in the patient s care with you. Please do not hesitate to call with any questions. Sincerely, Marni Hudson MD documented in this encounterL[facility]01-27-[facility]23 Instructions* Patient Instructions* Marni Hudson MD [...] or you can send a message through [facility]. You can also now schedule and select appointments through [facility]. Marni Hudson MD documented in this encounterLanc[facility]01-27-2023 History of Present illness Narrative* Marni Hudson MD - 12/18/2022 6:56 AM EST [facility] - FOLLOW UP EVALUATION - VIRTUAL VISIT Felix Montelongo MD, MD [address] [facility] [id number] Dear Felix Montelongo MD, MD: I had the pleasure of seeing Mr. Kline for follow-up today. As you know he is a 82 year old right-handed male with a history of ET/PD since 2016(?) . 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 He is seen with a daughter. We had a visit using: [employer] I received consent from the patient to [...] 1 1 1 Level of service : 06963 (40-54 min). Time spent 51 min on the day of service, which included preparing to see the patient, [id number] patient care, completing clinical documentation, and counseling and educating the patient/family/caregiver. Thank you for allowing me to be part of the clinical care of this patient! I look forward to continued participation in the patient s care with you. Please do not hesitate to call with any questions. Sincerely, Marni Hudson MD documented in this encounterLanc[facility]12-21-2022 Miscellaneous Notes* Telephone Encounter - Jazzy Bonds - 11/11/2022 9:17 AM EST Last FUV Jun 2022 with KA. Next FUV 12/17/22 with KA. documented in this encounterLanc[facility]07-05-2022 Miscellaneous Notes* Telephone Encounter - Marlena Moya - 05/26/2022 1:[address] Hudson had an opening on 06/03/22. Added patient to schedule; notified him of appt details via voicemail and [facility] message. Marlena Moya * Telephone Encounter - [...] 9:06 AM Routing comment documented in this encounterLancaster [facility]05-04-2022 Miscellaneous Notes* Telephone Encounter - Sharron Higginbotham MA - 03/25/2022 1:55 PM EDT Called patient to get the pre-rooming intake. I left voice mail for a returned call to the office to have this completed. If patient returns call please transfer call to myself or another clinical staff member. Thanks! Sharron Higginbotham MA documented in this encounterLancaster [facility] HospitalEval[facility] [place] [facility]* Diagnosis Onset Date Resolution Status CKD (chronic kidney disease) chronic Edema chronic Fatigue chronic HTN (hypertension) chronic Hypothyroidism chronic Type II diabetes mellitus, uncontrolled chronic [facility] Work Phone: Evaluation note* Diagnosis Parkinson disease (HCC)- Primary Paralysis agitans Essential tremor Essential and other specified forms of tremor documented in this encounter [facility] note* Diagnosis Parkinson disease (HCC)- Primary Paralysis agitans Muscle stiffness Unspecified disorder of muscle, ligament, and fascia Muscle pain Mylagia and myositis, unspecified [facility] [place] [facility]* Diagnosis Parkinson disease (HCC)- Primary Paralysis agitans Slow transit constipation documented in this encounter [facility] noteNo assessment information availableWDoctors Hospital Work Phone: Evaluation note* Diagnosis Controlled type 2 diabetes mellitus without complication, without long-term current use of insulin (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 Stage 3a chronic kidney disease (HCC) documented in this encounter [facility] note* Diagnosis Controlled type 2 diabetes mellitus without complication, without long-term current use of insulin (HCC)- Primary Acquired hypothyroidism Unspecified hypothyroidism Stage 3a chronic kidney disease (HCC) Parkinson's disease, unspecified whether dyskinesia present, unspecified whether manifestations fluctuate (HCC) documented in this encounter [facility] note* Diagnosis Palpitations- Primary Diastolic congestive heart failure, unspecified HF chronicity (HCC) Atherosclerosis of saxman coronary artery of saxman heart without angina pectoris documented in this encounter [facility] note* Diagnosis Coronary artery disease involving saxman coronary artery of saxman heart, unspecified whether angina present- Primary PAC (premature atrial contraction) Supraventricular premature beats PVC (premature ventricular contraction) Other premature beats Atrial tachycardia (HCC) Other specified cardiac dysrhythmias documented in this encounter [facility] note* Diagnosis Primary hypertension- Primary Unspecified essential hypertension Coronary artery disease involving saxman coronary artery of saxman heart without angina pectoris documented in this encounter [facility] for referral (narrative)No reason for referral information availableWDoctors Hospital Work Phone: Summary Purpose Family History [...] FoundDocuments on File Type Date Recorded Patient Data Scientist Expl anation Advance Directive(s) 04/18/2021 8:33 AM Advance Directive(s) 02/24/2016 11:33 AM Advance Directive(s) 02/18/2016 4:39 PM Advance Directive Response Recorded Date/ Time Advance Directives No March 14 2:48pm Living Will No April 21, 2021 8 :41pm Power of Coal Washer No April 21, 2021 8:41pm Advance Directive Response Recorded Date/ Time Advance Directives No March 14 1:48pm Living Will No April 21, 2021 7 :41pm Power of Coal Washer No April 21, 2021 7:41pm Advance Directive Response Recorded Date/ Time Living Will No October 27 6:24pm Do you have a Healthcare Power of Coal Washer? No October 27, 2024 6:24pm Advance Directives No March 14 2:48pm Advance Directive Response Recorded Date/ Time Advance Directives No March 14 2:48pm Chief Complaint and Reason for Visit Chief Complaint FOX [facility]ER. RE-EST. DIABETES INT LABS Reason for Visit [...] WORK November 30, 2024 5: 15am [facility]/01November 30, 2024 9: 59am ADMISSION EXAM December 04, 2024 1 2:52pm [facility] WORK December 07, 2024 5:00am ADMISSION EXAM December 19, 2024 1 :28pm NEW [facility]CERN December 21, 2024 2 :05pm NEW CONCERN December 26, 2024 1 :17pm [facility] WORK January 04 5:00am NEW CONCERN January 04, 2025 12:35pm [facility] WORK January 31, 2025 5 :00am [...] WORK November 30, 2024 5: 15am [facility] 11/01November 30, 2024 9: 59am ADMISSION EXAM December 04, 2024 1 2:52pm [facility] WORK December 07, 2024 5:00am ADMISSION EXAM December 19, 2024 1 :28pm NEW CONCERN December 21, 2024 2 :05pm NEW CONCERN December 26, 2024 1 :17pm [facility] WORK January 04 5:00am NEW CONCERN January 04, 2025 12:35pm [facility] WORK January 31, 2025 5 :00am 21 M FU RS 10/26 CX 10/31February 27 10:51am [facility] WORK February 28, 2025 5: 00am [...] 27, 2025 10:51am Chief Complaint Admit Date [facility] WORK December 07, 2024 5:00am ADMISSION EXAM December 19, 2024 1 :28pm NEW CONCERN December 21, 2024 2 :05pm NEW CONCERN December 26, 2024 1 :17pm [facility] WORK January 04 5:00am NEW CONCERN January 04, 2025 12:35pm [facility] WORK January 31, 2025 5 :00am NEW CONCERN February 26, 2025 3:51 pm 21 M FU RS 10/26 CX 10/31February 27 10:51am [facility] WORK February 28, 2025 5: 00am [...] Procedures PROVIDER ORDERED FOLLOW UP OFFICE/OUTPATIENT [facility] 60-74 MINUTES Marni Hudson MD [address] [phone] Referral ID Status Reason Start Date Expiration Date Visits Requested Visits Authorized [id number] Pending Review PCP Requested Referral 02/15/2023 12/18/2023 1 1 Specialty Diagnoses / Procedures Referred By Contac t Referred To Contact Diagnoses Parkinson disease (HCC) Procedures PROVIDER ORDERED FOLLOW UP OFFICE/OUTPATIENT NEW [facility] 60-74 MINUTES Marni Hudson MD [address] [phone] Referral ID Status Reason Start Date Expiration Date Visits Requested Visits Authorized [id number] Pending Review PCP Requested Referral 05/21/2023 02/19/2024 1 1 Specialty Diagnoses / Procedures Referred By Contac t Referred To Contact Diagnoses Parkinson disease (HCC) Muscle stiffness Muscle pain Procedures CONSULT TO MASSAGE THERAPY OFFICE/OUTPATIENT NEW [facility] 60-74 MINUTES Marni Hudson MD [address] [place] [address] Referral ID Status Reason Start Date Expiration Date Visits Requested Visits Authorized [id number] Pending Review PCP Requested Referral 02/19/2023 02/19/2024 1 1 Referral ID Status Reason Start Date Expiration Date Visits Requested Visits Authorized [id number] Pending Review PCP Requested Referral 07/06/2024 1 1 Specialty Diagnoses / Procedures Referred By Contac t Referred To Contact Diagnoses Parkinson disease (HCC) Procedures CONSULT TO MASSAGE THERAPY OFFICE/OUTPATIENT NEW [facility] 60-74 MINUTES Marni Hudson MD [address] [address] Referral ID Status Reason Start Date Expiration Date Visits Requested Visits Authorized [id number] Pending Review PCP Requested Referral 07/07/2023 07/06/2024 1 1 Specialty Diagnoses / Procedures Referred By Contac t Referred To Contact [facility] Diagnoses Parkinson disease (HCC) Procedures CONSULT TO PHYSICAL THERAPY PHYSICAL THERAPY EVALUATION HIGH COMPLEX 45 MINS Mrani Hudson MD [address] [facility] [address] [place] [address] [facility] [place] [address] [place] [address] Referral ID Status Reason Start Date Expiration Date Visits Requested Visits Authorized [id number] Pending Review Auto-Generat ed Referral 07/07/2023 07/06/2024 1 1 Additional Source Comments (unrecognized sect ion and content) No Status Records FoundNo Status Records FoundNo Status Records FoundNo Status Records FoundNo Status Records FoundNo Status Records Found INFORMATION SOURCE (unrecogn ized section and content) DATE CREATED AUTHOR 05/12/2018 [facility] DATE CREATED AUTHOR AUTHOR'S ORGANIZ ATION 07/11/2021 [facility] DATE CREATED AUTHOR AUTHOR'S ORGANIZ ATION 07/21/2021 [facility] DATE CREATED AUTHOR AUTHOR'S ORGANIZ ATION 03/04/2025 [facility] DATE CREATED AUTHOR AUTHOR'S ORGANIZ ATION 03/06/2025 [facility] DATE CREATED AUTHOR AUTHOR'S ORGANIZ ATION 05/04/2025 [facility] Source Comments (unrecognize d section and content) In the event this informatio n is protected by the Federal Confidentiality of Alcohol and Drug Abuse Patient Records regulations: The Federal rules restrict any use of the information to criminally investigate or prosecute any alcohol or drug abuse patient.[facility] HospitalIn the event this information is protected by the Federal Confidentiality of Alcohol and Drug Abuse Patient Records regulations: The Federal rules restrict any use of the information to criminally investigate or prosecute any alcohol or drug abuse patient.[facility] HospitalIn the event this information is protected by the Federal Confidentiality of Alcohol and Drug Abuse Patient Records regulations: The Federal rules restrict any use of the information to criminally investigate or prosecute any alcohol or drug abuse patient.[facility] HospitalIn the event this information is protected by the Federal Confidentiality of Alcohol and Drug Abuse Patient Records regulations: The Federal rules restrict any use of the information to criminally investigate or prosecute any alcohol or drug abuse patient.[facility] HospitalIn the event this information is protected by the Federal Confidentiality of Alcohol and Drug Abuse Patient Records regulations: The Federal rules restrict any use of the information to criminally investigate or prosecute any alcohol or drug abuse patient.[facility] HospitalIn the event this information is protected by the Federal Confidentiality of Alcohol and Drug Abuse Patient Records regulations: The Federal rules restrict any use of the information to criminally investigate or prosecute any alcohol or drug abuse patient.[facility] HospitalIn the event this information is protected by the Federal Confidentiality of Alcohol and Drug Abuse Patient Records regulations: The Federal rules restrict any use of the information to criminally investigate or prosecute any alcohol or drug abuse patient.[facility] HospitalIn the event this information is protected by the Federal Confidentiality of Alcohol and Drug Abuse Patient Records regulations: The Federal rules restrict any use of the information to criminally investigate or prosecute any alcohol or drug abuse patient.[facility] HospitalIn the event this information is protected by the Federal Confidentiality of Alcohol and Drug Abuse Patient Records regulations: The Federal rules restrict any use of the information to criminally investigate or prosecute any alcohol or drug abuse patient.[facility] HospitalIn the event this information is protected by the Federal Confidentiality of Alcohol and Drug Abuse Patient Records regulations: The Federal rules restrict any use of the information to criminally investigate or prosecute any alcohol or drug abuse patient.[facility] HospitalIn the event this information is protected by the Federal Confidentiality of Alcohol and Drug Abuse Patient Records regulations: The Federal rules restrict any use of the information to criminally investigate or prosecute any alcohol or drug abuse patient.[facility] HospitalIn the event this information is protected by the Federal Confidentiality of Alcohol and Drug Abuse Patient Records regulations: The Federal rules restrict any use of the information to criminally investigate or prosecute any alcohol or drug abuse patient.[facility] HospitalIn the event this information is protected by the Federal Confidentiality of Alcohol and Drug Abuse Patient Records regulations: The Federal rules restrict any use of the information to criminally investigate or prosecute any alcohol or drug abuse patient.[facility] HospitalIn the event this information is protected by the Federal Confidentiality of Alcohol and Drug Abuse Patient Records regulations: The Federal rules restrict any use of the information to criminally investigate or prosecute any alcohol or drug abuse patient.[facility] HospitalIn the event this information is protected by the Federal Confidentiality of Alcohol and Drug Abuse Patient Records regulations: The Federal rules restrict any use of the information to criminally investigate or prosecute any alcohol or drug abuse patient.[facility] HospitalIn the event this information is protected by the Federal Confidentiality of Alcohol and Drug Abuse Patient Records regulations: The Federal rules restrict any use of the information to criminally investigate or prosecute any alcohol or drug abuse patient.[facility] HospitalIn the event this information is protected by the Federal Confidentiality of Alcohol and Drug Abuse Patient Records regulations: The Federal rules restrict any use of the information to criminally investigate or prosecute any alcohol or drug abuse patient.[facility] HospitalIn the event this information is protected by the Federal Confidentiality of Alcohol and Drug Abuse Patient Records regulations: The Federal rules restrict any use of the information to criminally investigate or prosecute any alcohol or drug abuse patient.[facility] Reason for Visit (unrecogniz ed section and content) Reason Comments upcoming appointment pre-rooming phone c all Reason Comments Opened In Error Reason Comments Opened In Error Reason Comments Telemedicine Specialty Diagnoses / Procedures Referred By Contac t Referred To Contact Diagnoses Parkinson disease (HCC) Gait instability Procedures PROVIDER ORDERED FOLLOW UP OFFICE/OUTPATIENT NEW HIGH MDM 60-74 MINUTES Marni Hudson MD [address] [address] Referral ID Status Reason Start Date Expiration Date V isits Requested Visits Authorized [id number] Closed PCP Requested Referral 06/29/2022 09/27/2022 1 1 Reason Comments Orders Mailed orders Reason Comments Telemedicine Follow Up Specialty Diagnoses / Procedures Referred By Contac t Referred To Contact Diagnoses Parkinson disease (HCC) Essential tremor Procedures PROVIDER ORDERED FOLLOW UP OFFICE/OUTPATIENT NEW HIGH MDM 60-74 MINUTES Marni Hudson MD [address] [address] Referral ID Status Reason Start Date Expiration Date Visits Requested Visits Authorized [id number] Pending Review PCP Requested Referral 02/15/2023 12/18/2023 [...] Care Teams (unrecognized sec tion and content) Credit And Loan Collections Supervisor Relationship Specialty Start Date End Date Felix Montelongo [address] [place], [place] [id number] PCP - General Unspecified 02/04/16 Anupama Feng DO Internal Medicine 12/29/12 Cali Still MD Primary Staff Physician Cardiology 02/07/19 Credit And Loan Collections Supervisor Relationship Specialty Start Date End Date Felix Montelongo MD [address] [place], [place] [id number] PCP - General Unspecified 02/04/16 Anupama Feng DO Internal Medicine 12/29/12 Cali Still MD Primary Staff Physician Cardiology 02/07/19 Credit And Loan Collections Supervisor Relationship Specialty Start Date End Date Felix Montelongo MD [address] [place], [place] [id number] PCP - General Unspecified 02/04/16 Anupama Feng DO Internal Medicine 12/29/12 Cali Still MD Primary Staff Physician Cardiology 02/07/19 Credit And Loan Collections Supervisor Relationship Specialty Start Date End Date Felix Montelongo MD [address] [place] [id number] PCP - General Unspecified 02/04/16 Anupama Feng, DO Internal Medicine 12/29/12 Cali Still MD [address] [place] [address] Primary Staff Physician Cardiology 02/07/19 Credit And Loan Collections Supervisor Relationship Specialty Start Date End Date Felix Montelongo MD [address] [place] [id number] PCP - General Unspecified 02/04/16 Anupama Feng DO Internal Medicine 12/29/12 Cali Still MD [address] [place] [address] Primary Staff Physician Cardiology 02/07/19 Credit And Loan Collections Supervisor Relationship Specialty Start Date End Date Felix Montelongo MD [address] [place] [id number] PCP - General Unspecified 02/04/16 Anupama Feng, Internal Medicine 12/29/12 Cali Still MD [address] [place] [address] [id number] Primary Staff Physician Cardiology 02/07/19 Credit And Loan Collections Supervisor Relationship Specialty Start Date End Date Felix Montelongo MD [address] [place] [id number] PCP - General Unspecified 02/04/16 Anupama Feng DO Internal Medicine 12/29/12 Cali Still MD [address] [place] [address] Primary Staff Physician Cardiology 02/07/19 Credit And Loan Collections Supervisor Relationship Specialty Start Date End Date Felix Montelongo MD [address] [place] [address] PCP - General Unspecified 02/04/16 Anupama Feng DO Internal Medicine 12/29/12 Cali Still MD [address] [place] [address] [phone] Primary Staff Physician Cardiology 02/07/19 Team Status: Active Member Role Status Dates Dr. Barrett Avalos MD Family Provider Active Dr. Felix Montelongo MD Primary Care Provider Active Team Status: Inactive Member Role Status Dates Dr. Felix Montelongo MD Primary Care Provider Active RUDDY ANGLIN Attending Provider, Referring Provid er Active Credit And Loan Collections Supervisor Relationship Specialty Start Date End Date Felix Montelongo MD [address] [place] [id number] PCP - General Unspecified 02/04/16 Anupama Feng DO Internal Medicine 12/29/12 Cali Still MD [address] [place] [id number] Primary Staff Physician Cardiology 02/07/19 Marni Hudson MD [address] [address] Specialty Facility Specialist Neurology 11/10/23 Credit And Loan Collections Supervisor Relationship Specialty Start Date End Date Felix Montelongo MD [address] [place] [address] PCP - General Unspecified 02/04/16 Anupama Feng DO Internal Medicine 12/29/12 Cali Still MD [address] [place] [address] Primary Staff Physician Cardiology 02/07/19 Marni Hudson MD [address] [address] Specialty Facility Specialist Neurology 11/10/23 Credit And Loan Collections Supervisor Relationship Specialty Start Date End Date Felix Montelongo MD [address] [place] [address] PCP - General Unspecified 02/04/16 Anupama Feng DO Internal Medicine 12/29/12 Cali Still MD [address] [place] [address] Primary Staff Physician Cardiology 02/07/19 Marni Hudson MD [address] [address] Specialty Facility Specialist Neurology 11/10/23 Credit And Loan Collections Supervisor Relationship Specialty Start Date End Date Rocío Wagner PA-C [address] [place] [address] PCP - General Family Medicine 02/01/24 Anupama Feng DO Internal Medicine 12/29/12 Cali Still MD Primary Staff Physician Cardiology 02/07/19 Marni Hudson MD [address] [place] [phone] Specialty Facility Specialist Neurology 11/10/23 Credit And Loan Collections Supervisor Relationship Specialty Start Date End Date Vincent Espinosa MD [address] [place] [address] PCP - General Internal Medicine 02/29/24 Anupama Feng DO Internal Medicine 12/29/12 Cali Still MD Primary Staff Physician Cardiology 02/07/19 Marni Hudson MD [address] [address] Specialty Facility Specialist Neurology 11/10/23 Credit And Loan Collections Supervisor Relationship Specialty Start Date End Date Vincent Espinosa MD [address] [place] [address] PCP - General Internal Medicine 02/29/24 Anupama Feng DO Internal Medicine 12/29/12 Cali Still MD Primary Staff Physician Cardiology 02/07/19 Marni Hudson MD [address] [facility] [address] [place], [place] [phone] Specialty Facility Specialist Neurology 11/10/23 Rocío Wagner PA-C [address] [place] [address] Manager Competitive Intelligence Family [facility] 10/29/24 Sheela Cochran APRN.[facility] [address] [place] [address] Manager Competitive Intelligence Internal Medicine 10/29/24 Janine Daugherty PA-C [address] [place] [address] [facility] 10/29/24 Credit And Loan Collections Supervisor Relationship Specialty Start Date End Date Vincent Espinosa MD [address] [place] [address] PCP - General Internal Medicine 02/29/24 Anupama Feng DO Internal Medicine 12/29/12 Cali Still MD Primary Staff Physician Cardiology 02/07/19 Marni Hudson MD [address] [facility] [address] [place], [place] [phone] Specialty Facility Specialist Neurology 11/10/23 Rocío Wagner PA-C [address] [place] [address] [facility] 10/29/24 Sheela Cochran APRN.[employer] [address] [place], [place] [phone] [facility] Internal Medicine 10/29/24 Janine Daugherty PA-C [address] [place], [place] [phone] [facility] 10/29/24 Team Status: Inactive Member Role [...] Start: November 01, 2024 Dr. Velasquez Morales DO Emergency Provider Activ e Start: November 01, 2024 Dr. Sulma Romero MD Admit Provider Active Star t: November 01, 2024 Dr. Sulma Romero MD Other Provider Active Star t: November 01, 2024 Dr. Sung Rhodes , Attending Provider Active Start: November 01, 2024 Dr. Sung Rhodes , Other Provider Active Star t: November 01, 2024 Dr. Roderick Laurent DO Other Provider Active S tart: November 01, 2024 Team Status: Inactive Member Role Status Dates Dr. Felix Montelongo MD Primary Care Provider Active Start: November 02, 2024 End: November 02, 2024 Abeba Peacock FOX RAISER, FOX RAISER-C Attending Provider Active Start: November 02, 2024 [...] Active Member Role Status Dates Dr. Felix Montelonog MD Primary Care Provider Active Start: November [...] End: December 04, 2024 Abeba Peacock NP, FOX RAISER-C Attending Provider Active Start: December 04, 2024 [...] End: December 21, 2024 Abeba Peacock NP, FOX RAISER-C Attending Provider Active Start: December 21, 2024 [...] 2025 End: January 04, 2025 Abeba Peacock FOX RAISER, FOX RAISER-C Attending Provider Active Start: January 04, 2025 End: January 04, 2025 Team Status: Inactive Member Role Status Dates Dr. Felix Montelongo MD Primary Care Provider Active Start: January 31, 2025 End: January 31, 2025 Buzz ZHANG MD Attending Provider Active Start: January 31, 2025 End: January 31, 2025 [employer] Loan Collections Supervisor Relationship Specialty Start Date End Date Vincent Espinosa MD [address] [place] [address] PCP - General Internal Medicine 02/29/24 Anupama Feng DO Internal Medicine 12/29/12 Cali Still MD Primary Staff Physician Cardiology 02/07/19 Marni Hudson MD [address] [id number] Specialty Facility Specialist Neurology 11/10/23 Sheela Cochran APRN.[employer] [address] [place] [address] Manager Competitive Intelligence Internal Medicine 10/29/24 [employer] Loan [employer] Supervisor Relationship Specialty Start Date End Date Vincent Espinosa MD [address] [place] [address] PCP - General Internal Medicine 02/29/24 Anupama Feng DO Internal Medicine 12/29/12 Cali Stlil MD Primary Staff Physician Cardiology 02/07/19 Marni Hudson MD [address] [facility] [address] [place] [address] Specialty Facility Specialist Neurology 11/10/23 Older, MILADY Coker.GLOVE WRAPPER [address] [place] [address] Manager Competitive Intelligence Internal Medicine 10/29/24 Team Status: Inactive Member [...] 2025 End: February 26, 2025 Abeba Peacock FOX RAISER, FOX RAISER-C Attending Provider Active Start: February 26, 2025 [...] BE BASED ON THE PRIMARY CLINICAL RECORDS. [facility] [employer] [facility]. provides no warranty or guarantee of the accuracy or completeness of information in this document.
== END | disposition home or self-care (01) ==
PROVIDERS: PCP Family Medicine Geriatric Medicine; Referring Provider Ophthalmology; Visit Provider Ophthalmology
DX: R51.9 Headache, unspecified (principal); Z79.02 Long term (current) use of antithrombotics/antiplatelets; Z79.82 Long term (current) use of aspirin; S06.0X9D Concussion with loss of consciousness of unspecified duration, subsequent encounter; W19.XXXD Unspecified fall, subsequent encounter
CPT/HCPCS: 70450

== ENCOUNTER → 2025-06-22 | Outpatient (REF) | payer MEDICARE, SELFPAY ==
[2020-03-14 14:48] VITALS: BMI 28.1
[2025-06-22 07:39] LABS: Hematocrit 40.0 % (40-54); Hemoglobin 13.3 g/dL (13.0-16.5); Immature Granulocytes Count 0.010 X10^3/uL (0.0-0.0); Mean Corp Hgb Conc 33.3 g/dL (32-36); Mean Corpuscular Volume 101.3 fL (80-94); Mean Platelet Vol. 10.5 fl (6.2-12.0); NRBC Flagged by Analyzer 0 % (0-5); Platelet Count 206 K/mm3 (150-450); RBC Distribution Width CV 13.2 % (11.6-14.6); RBC Distribution Width SD 49.6 fl (35.1-43.9); Red Blood Count 3.95 M/mm3 (4.6-6.2); White Blood Count 5.5 K/mm3 (4.4-11.0)
[2025-06-22 07:45] LABS: Anion Gap 11 (5-15); BUN 32 mg/dL (4-19); BUN/Creat Ratio 30.5 RATIO (10-20); Calcium,Total 9.4 mg/dL (7.6-11.0); Carbon Dioxide 25.0 mmol/L (21.0-32.0); Chloride 100 mmol/L (98-108); Glucose 180 mg/dL (70-99); Potassium 4.8 mmol/L (3.3-5.1)
== END ==
LOC: OLS.WHLTSB 05:00
PROVIDERS: PCP Family Medicine Geriatric Medicine; Visit Provider Internal Medicine
DX: G20.A1 Parkinson's disease without dyskinesia, without mention of fluctuations (principal)
CPT/HCPCS: 36415; 80048; 85025

== ENCOUNTER → 2025-07-10 10:00 | Outpatient (REF) | payer MEDICARE, SELFPAY ==
[2020-03-14 14:48] VITALS: BMI 28.1
--- OUTSIDE RECORDS SUMMARY | 2025-07-11 07:22 | XMS RPT_ITS | CCD ---
Author Organization [facility] CliniSywy Care Team Providers Care Sharepoint Application Developer Name Role Phone NICOLA PAYNE Unavailable Unavailable IMCA Unavailable Unavailable FELIX MONTELONGO Unavailable Unavailable ALHAJI KARI Unavailable Unavailable MATTHEW MANENETH Unavailable Unavailable JAYDAFELIX Rodriguez K Unavailable Unavailable ALHAJI, KARI Unavailable Unavailable ALHAJI KARI Unavailable Unavailable JAYDA FELIX K Unavailable Unavailable Unknown, Referring Provider Unavailable [...] Primary Care Provider Cali Still MD Unavailable Elana Castañeda MD Unavailable Cali Still MD Unavailable Rocío Wagner PA-C Primary Care Provider Vincent Tello MD Primary Care Provider Cali Still MD Unavailable Bernard HILLIARD, Rocío L Unavailable Older 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 Sung Rhodes DO Other Provider Madonna THORPE-CAbeba Attending Provider Buzz Rainey MD Attending Provider Unavailfatuma Rainey MD, Dr. Gerber Attending Provider Dr. Felix Montelongo MD Referring Provider Dr. Margie Gary MD Attending Provider HARJINDER JONES Referring Unavailable VINCENT TELLO Primary Care Unavailable KWAN ESTRELLA Attending Unavailable Jayda SHAW, Dr. [place] Primary Care Provider Buzz Rainey MD Attending Provider Unavaila ble Tickton VETERINARY EPIDEMIOLOGIST-C, Abeba Attending Provider Redd SHAW, Dr. Gerber Attending Provider King VALERIA, Dr. Preciado Attending Provider Jayda SHAW, Dr. [place] Primary Care Provider Buzz Rainey MD Attending Provider Unavaila ble Tickton VETERINARY EPIDEMIOLOGIST-C, Abeba Attending Provider Jayda SHAW, Dr. [place] Referring Provider Jayda SHAW, Dr. [place] Primary Care Provider Redd SHAW, Buzz Attending Provider Unavaila ble Tickton VETERINARY EPIDEMIOLOGIST-C, Abeba Attending Provider Redd SHAW, Buzz Referring Provider Unavaila juan carlos Camacho MD, Dr. Cavazos Attending Provider Janice SHAW, Dr. Cavazos Referring Provider ELANA CASTAÑEDA Attending Unavailable GANTA, VINCENT Primary Care Unavailable GANTA, VINCENT Primary Care Unavailable SLEIK, KHALED Referring Unavailable SLEIK, KHALED Attending Unavailable GANTA, VINCENT Primary Care Unavailable SLEIK, KHALED Referring Unavailable GANTA, VINCENT Primary Care Unavailable SLEIK, KHALED Referring Unavailable SLEIK, KHALED Attending Unavailable Jayda SHAW, Dr. [place] Primary Care Provider Buzz Rainey MD Attending Provider Unavaila ble [place]ickton VETERINARY EPIDEMIOLOGIST-C, Abeba Attending Provider Buzz Conley Attending Unavailabl e Jayda, Felix Primary Care Unavailable Oleghe Cody ZHANGbe Referring Unavailabl e Oleghe Buzz ZHANG Attending Unavailabl e Jayda, Felix Primary Care Unavailable Durga VETERINARY EPIDEMIOLOGIST, Rita E Attending Unavailabl e Jayda, Felix Primary Care Unavailable Jayda, Felix Referring Unavailable Durga VETERINARY EPIDEMIOLOGIST, Rita E Attending Unavailabl e Jayda, Felix Primary Care Unavailable Jayda, Felix Referring Unavailable Oleghe Buzz ZHANG Attending Unavailabl e Jayda, Felix Primary Care Unavailable Oleghe Buzz ZHANG Attending Unavailabl e Jayda, Felix Primary Care Unavailable [facility] Cody ZHANGbe Attending Unavailabl e Jayda, Felix Primary Care Unavailable Sulma Romero Consulting Unavailable Sulma Romero Admitting Unavailable Sung Rhodes Attending Unavailable Jayda, Felix Primary Care Unavailable Tereletsky, Roderick Consulting Unavailable Sulma Romero Attending Unavailable Sulma Romero Consulting Unavailable Romero, Sulma Admitting Unavailable Jayda, Felix Primary Care Unavailable Ajyda, Felix Primary Care Unavailable Ozzy Bro Attending Unavailable Jayda, Felix Referring Unavailable [facility] Cody ZHANGbe Attending Unavailabl e Jayda, Felix Primary Care Unavailable [facility] Cody ZHANGbe Attending Unavailabl e Jayda, Felix Primary Care Unavailable [facility] Cody ZHANGbe Attending Unavailabl e Jayda, Felix Primary Care Unavailable [facility] Cody ZHANGbe Attending Unavailabl e Jayda, Felix Primary Care Unavailable [facility] Cody ZHANGbe Attending Unavailabl e Jayda, Felix Primary Care Unavailable [facility] Buzz ZHANG Attending Unavailabl e Jayda, Felix Primary Care Unavailable [facility] Cody ZHANGbe Attending Unavailabl e Jayda, Felix Primary Care Unavailable Madonna VETERINARY EPIDEMIOLOGIST, Abeba Attending Unavailable Jayda, Felix Primary Care Unavailable RaheCodybe Attending Unavailable Jayda, Felix Primary Care Unavailable Ozzy Bro Attending Unavailable Jayda, Felix Primary Care Unavailable Jayda, Felix Referring Unavailable [facility] Cody ZHANGbe Attending Unavailabl e Jayda, Felix Primary Care Unavailable [facility] Cody ZHANGbe Attending Unavailabl e Jayda, Felix Primary Care Unavailable Jayda, Felix Primary Care Unavailable Angela Ramirez Attending Unavailable LeeelElveron Attending Unavailable Jayda, Felix Primary Care Unavailable Miedel, Dirk Referring Unavailable Jayda, Felix Primary Care Unavailable Madonna VETERINARY EPIDEMIOLOGIST, Abeba Attending Unavailable Jayda, Felix Primary Care Unavailable Madonna VETERINARY EPIDEMIOLOGIST, Abeba Attending Unavailable Jayda, Felix Primary Care Unavailable Madonna VETERINARY EPIDEMIOLOGIST, Abeba Attending Unavailable RaheOtiliaongbe Attending Unavailable Jayda, Felix Primary Care Unavailable Cody Raineybe Attending Unavailable Jayda, Felix Primary Care Unavailable Margie Gary Attending Unavailable Jayda, Felix Referring Unavailable [facility], Felix Primary Care Unavailable Roderick Laurent Attending Unavailable Roderick Laurent Consulting Unavailable Sung Rhodes Attending Unavailable Sung Rhodes Consulting Unavailable Durga THORPE, Rita Schwartz Attending Unavailabl e Jayda, Felix Primary Care Unavailable Durga VETERINARY EPIDEMIOLOGIST, Rita Schwartz Consulting Unavailabl e Jayda, Felix Referring Unavailable Jayda, Felix Primary Care Unavailable Abeba Peacock NP Attending Unavailable [facility] Felix Primary Care Unavailable Abeba Peacock NP Attending Unavailable Jayda Felix Primary Care Unavailable Abeba Peacock NP Attending Unavailable Buzz Conley [facility] Jayda, Valders Primary Care Unavailable Allergies Allergy Classification Reported Allergen(s) Allergy Type Date of Onset Reaction(s) Facility (20 sources) Adrenergic Beta-Antagonist s; Translations: [BETA-BLOCKERS (BETA-ADRENERGI C BLOCKING AGTS)] Propensity to adverse reactions (disorder) 0 Shortness of Breath [facility] Repository (9 sources) Beta-Blockers (Beta-Adrenergi c Bloc; Translations: [Beta-Blockers (Beta-Adrenergi c Bloc] Allergy to substance 2 ANGIOEDEMA [facility] Medications Current Medications Medication Drug Class(es) Dates Sig (Normalized) Sig (Original) acetaminophen 325 mg oral tablet (6 sources) Start: 11-01-2024 Acetaminophen 325 mg Tablet Active 650 mg PO EVERY 6 HOURS NEEDED as needed for Pain 1-10 Or Fever >100.7 0 0 November 01, 2024 1:00am aspirin 81 [...] mg PO DAILY@0800 July 28, 2018 12:00am HEART HEALTH take 1 tablet by bhaskar th once [...] PO AT BEDTIME June 20, 2019 11:52am CHOLESTEROL Start: 03-24-2019 take 0.5 tablet by m out once daily atorvastatin (LIPITOR) 80 mg tablet Take 0.5 tablets by mouth once daily. 90 tablet 3 03/24/2019 Active Start: 07-28-2018 End: 06-20-2019 Atorvastatin 80 MG tablet Discontinued 40 mg PO AT BEDTIME July 28, 2018 12:00am June 20, 2019 11:55am CHOLESTEROL Start: 07-28-2018 End: 06-20-2019 take 40 mg by mouth at bedtime Atorvastatin Discontinu ed 40 MG PO AT BEDTIME July 27, 2018 11:00pm June 20, 2019 10:55am Comment on above: Take 0.5 tablets by mouth once daily. B infantis/B ani/B otri/B bifid (PROBIOTIC 4X ORAL) (20 sources) B infantis/B ani /B tori/B bifid (PROBIOTIC 4X ORAL) Take by mouth. Active B infantis/B ani /B tori/B bifid (PROBIOTIC 4X ORAL) Take by mouth. 0 Active Comment on above: Take by mouth. carbidopa 25 mg / levodopa 100 mg disintegrating oral tablet (20 sources) Aromatic Amino Acid Decarboxylation Inhibitor, Aromatic Amino Acid Start: 06-13-2021 End: 11-08-2024 Carbidopa-Levodopa 25-100 mg tablet,disintegrating Active 2 {tbl} PO THREE TIMES A DAY November 08, 2024 5:23pm [facility] Start: 06-13-2021 Carbidopa-Levo dopa Active 1 TABLET [...] June 13, 2021 8:45am Start: 08-24-2017 End: 05-29-2026 Carbidopa-Levodopa 25-100 mg tablet Discontinued 1 {tbl} PO THREE TIMES A DAY 270 0 March 19, 2021 4:28pm April 21, 2021 8:47pm Start: 08-24-2017 End: 04-21-2021 take 1 tablet by mouth three times daily Carbidopa-Levodopa Discontinued 1 TABLET PO THREE TIMES A DAY 270 March 19, 2021 3:28pm April 21, 2021 7:47pm Comment on above: Take 2 tablets by mo [facility] three times daily. cholecalciferol 0.025 mg oral capsule (14 sources) Vitamin D Start: 11-08-20 take 1 capsule by mouth twice daily Cholecalciferol (Vitamin D3) 25 mcg (1,000 unit) capsule Active 25 ug PO TWICE A DAY November 08, 2024 1:00am Start: 06-15-2018 End: 11-08-2024 Cholecalciferol (Vitamin D3) 5,000 UNIT capsule Discontinued 5000 U PO MOWE June 15, 2018 12:00am November 08, 2024 5:25pm supplement cholecalciferol, vitamin D3, (VITAMIN D3 ORAL) (20 sources) cholecalciferol, vitamin D3, (VITAMIN D3 ORAL) Take by mouth. Active cholecalciferol, vitamin D3, (VITAMIN D3 ORAL) Take by mouth. 0 Active Comment on above: Take by mouth. clopidogrel 75 mg oral tablet (20 sources) P2Y12 Platelet Inhibitor Start: 07-20-20 18 take 1 tablet by mouth once daily Clopidogrel 75 MG tablet Active 75 mg PO DAILY July 20, 2018 12:00am Heart Comment on above: Take 1 tablet by bhaskar once daily. DULoxetine 20 mg delayed release oral capsule (3 sources) Serotonin and Norepinephrine Reuptake Inhibitor Start: 07-06-20 End: 07-06-20 23 take 1 capsule by mouth once daily DULoxetine (CYMBALTA) 20 mg capsule Take 1 capsule by mouth once daily. 30 capsule 11 07/06/2022 12/18/2022 Discontinued Comment on above: Take 1 capsule by mo [facility] once daily. finasteride 5 mg oral tablet (9 sources) 5-alpha Reductase Inhibitor Start: 05-15-20 21 take 1 tablet by mouth once daily Finasteride 5 MG Oral Tablet TAKE 1 TABLET DAILY. Quantity: 0 Refills: 0 Ordered: 15-May-2021 DO Start : 15-May-2021 Active Start: 08-20-2017 End: 06-20-2019 take 1 tablet by mouth once daily Finasteride 5 MG tablet Discontinued 5 mg PO DAILY August 20, 2017 12:00am June 20, 2019 11:55am prostate folic acid 0.8 mg oral tablet (20 sources) Start: 11-08-2024 take 0.8 mg by mouth once daily Folic Acid 800 mcg tablet Active 0.8 mg PO daily November 08, 2024 5:23pm SUPPLMENT Start: 05-15-2021 take 1 tablet by bhaskar twice daily Folic Acid 800 MCG Oral Tablet take one tablet twice a day Quantity: 0 Refills: 0 Ordered: 15-May-2021 DO Start : 15-May-2021 Active Start: 06-17-2019 End: 11-08-2024 take 0.8 mg by mouth twice daily Folic Acid 800 mcg tablet Discontinued 0.8 mg PO TWICE A DAY June 17, 2019 12:00am November 08, 2024 5:26pm SUPPLMENT Start: 06-17-2019 take 0.8 mg by mouth twice daily Folic Acid Active 0.8 MG PO TWICE A DAY June 16, 2019 11:00pm Start: 02-28-2016 End: 06-17-2019 take 2 tablets by mouth once daily Folic Acid 0.4 MG tablet Discontinued 0.8 mg PO DAILY February 28, 2016 12:00am June 17, 2019 12:44pm supplement Start: 02-28-2016 End: 06-17-2019 take 0.8 mg by mouth once daily Folic Acid Discontinue d 0.8 MG PO DAILY February 27, 2016 11:00pm June 17, 2019 11:44am Start: 07-01-2010 End: 05-16-2025 FOLIC ACID 800 MCG TAB Take one(1) tablet two(2) times daily. 0 07/01/2010 05/16/2025 Discontinued Comment on above: Take one(1) tablet t wo(2) times daily. furosemide 20 mg oral tablet (14 sources) Loop Diuretic Start: 01-22-2025 End: 01-22-2025 [...] by mouth once daily. taking PRN gabapentin 400 mg oral capsule (20 sources) Anti-epileptic Agent Start: 05-16-2025 End: 11-25-2025 take 1 tablet by mouth three times daily Gabapentin 400 mg tab Indications: Post herpetic neuralgia Take 400 mg by mouth three times a day. Take at 9a, 1p, 6p 90 tablet 5 05/29/2025 11/25/2025 Active Start: 11-30-2024 take 1 tablet by bhaskar th twice daily Gabapentin 600 mg tablet Active 600 mg PO TWICE A DAY November 30, 2024 1:00am Start: 12-15-2021 End: 01-04-2024 take 1 tablet by mouth three times daily gabapentin (NEURONTIN) 600 mg tablet Take 1 tablet by mouth three times daily for 90 days. 90 tablet 2 12/15/2021 01/04/2024 Discontinued Start: 06-17-2019 End: 05-16-2025 take 1 tablet by mouth three times daily Gabapentin 800 mg tablet Discontinued 800 mg PO THREE TIMES A DAY June 17, 2019 12:00am November 30, 2024 11:11am NERVE Start: 11-15-2015 End: 06-17-2019 take 1 capsule by mouth every four hours Gabapentin 400 MG capsule Discontinued 400 mg PO Q4H November 15, 2015 1:00am June 17, 2019 12:43pm nerve pain Comment on above: Take 1 tablet by bhaskar th three times daily for 90 days. Take 1 tablet by bhaskar th three times a day for 90 days. glimepiride 2 mg oral tablet (20 sources) Sulfonylurea Start: take 2 tablets by mouth twice daily Glimepiride 2 mg tablet Active 4 mg PO TWICE A DAY November 08, 2024 5:24pm blood sugar Start: 07-07-2022 End: 11-08-2024 take 2 tablets by mouth once daily Glimepiride 2 mg tablet Discontinued 4 mg PO DAILY 90 May 07, 2023 11:21am November 08, 2024 5:26pm blood sugar Start: 07-07-2022 End: 05-07-2023 take 4 mg by mouth once daily Glimepiride Active 4 MG PO DAILY 90 May 07, 2023 10:21am Start: 05-15-2021 take 2 tablets by mo ut twice daily at mealtime Glimepiride 1 MG Oral Tablet TAKE 2 TABLETS BY MOUTH TWICE A DAY WITH MEALS Quantity: 0 Refills: 0 Ordered: 15-May-2021 DO Start : 15-May-2021 Active Start: 04-26-2020 End: 07-07-2022 take 2 tablets by mouth twice daily Glimepiride 2 mg tablet Discontinued 4 mg PO TWICE A DAY April 26, 2020 2:44pm July 07, 2022 8:56am blood sugar Start: 04-26-2020 End: 07-07-2022 take 4 mg by mouth twice daily Glimepiride Discontinue d 4 MG PO TWICE A DAY April 26, 2020 1:44pm July 07, 2022 7:56am Start: 06-20-2019 End: 04-26-2020 take 3 tablets by mouth once daily Glimepiride 2 mg tablet Discontinued 6 mg PO DAILY June 20, 2019 11:53am April 26, 2020 2:44pm blood sugar Start: 06-20-2019 End: 04-26-2020 take 6 mg by mouth once daily Glimepiride Discontinued 6 MG PO DAILY June 20, 2019 10:53am April 26, 2020 1:44pm Start: 06-17-2019 End: 06-20-2019 take 1 tablet by mouth twice daily Glimepiride 2 mg tablet Discontinued 2 mg PO TWICE A DAY June 17, 2019 12:44pm June 20, 2019 11:55am blood sugar Start: 06-15-2018 End: 06-17-2019 take 2 tablets by mouth once daily Glimepiride 2 MG tablet Discontinued 4 mg PO DAILY June 15, 2018 12:00am June 17, 2019 12:45pm blood sugar Start: 06-15-2018 End: 06-17-2019 take 4 mg [...] 24 hr Active 30 mg PO daily 90 November 30, 2024 1:00am Start: 05-15-2021 take 1 tablet by bhaskar th once daily Isosorbide Mononitrate ER 60 MG Oral Tablet Extended Release 24 Hour TAKE 1 TABLET DAILY DIRECTED. Quantity: 0 Refills: 0 Ordered: 24-Jun-2021 DO Start : 15-May-2021 Active Start: 07-28-2018 End: 05-07-2023 Isosorbide Mononitrate 60 MG tablet Discontinued 90 mg PO DAILY July 28, 2018 12:00am May 07, 2023 11:09am Chest Pain Start: 07-28-2018 End: 05-07-2023 take 90 mg by mouth once daily Isosorbide Mononitrate Discontinued 90 MG PO DAILY July 27, 2018 11:00pm May 07, 2023 10:09am Start: 06-16-2018 End: 07-19-2018 take 1 tablet by mouth once daily Isosorbide Mononitrate 120 MG tablet Discontinued 120 mg PO DAILY 30 0 June 16, 2018 12:00am July 19, 2018 8:53am Start: 06-15-2018 End: 06-16-2018 Isosorbide Mononitrate 60 MG tablet Discontinued 90 mg PO DAILY June 15, 2018 12:00am June 16, 2018 9:48am heart Start: 06-15-2018 End: 06-16-2018 take 90 mg by mouth once daily Isosorbide Mononitrate Discontinued 90 MG PO DAILY June 14, 2018 11:00pm June 16, 2018 8:48am lisinopril 10 mg oral tablet (20 sources) Angiotensin Converting Enzyme Inhibitor Start: 02-27-2025 take 5 mg by mouth once daily Lisinopril 10 mg tablet Active 5 mg PO DAILY February 27, 2025 11:04am blood pressure Start: 01-22-2025 End: 02-21-2025 take 1 tablet [...] 15, 2015 1:00am February 27, 2025 11:05am blood pressure Comment on above: Take 1 tablet by bhaskar th once daily. metFORMIN hydrochloride 1000 mg oral tablet (20 sources) Biguanide Start: 11-15-20 15 take 1 tablet by mouth twice daily at mealtime Metformin 1,000 MG tablet Active 1000 mg PO TWICE DAILY WITH MEALS November 15, 2015 1:00am blood sugar Comment on above: Take 1,000 mg by [...] controlled. saccharomyces boulardii 250 mg oral capsule (6 sources) Start: 11-08-20 take 1 capsule by mouth once daily Saccharomyces Boulardii (Daily Probiotic (S. Boulardii)) 250 mg capsule Active 250 mg PO daily November 08, 2024 1:00am tamsulosin hydrochloride 0.4 mg oral capsule (20 sources) alpha-Adrenergic Marianela Start: 02-28-20 16 take 1 capsule by mouth once daily Tamsulosin 0.4 MG capsule Active 0.4 mg PO DAILY February 28, 2016 12:00am prostate Comment on above: Take 1 capsule by [facility] once daily. WALKER ROLLATOR SEAT WITH 6" WHEELS - RED (11 sources) Start: 01-05-20 WALKER ROLLATOR SEAT WITH 6" WHEELS - RED Use as directed. 1 Each 01/05/2024 Active Start: 01-05-2024 WALKER ROLLATO R SEAT WITH 6" WHEELS - RED Use as directed. 1 Each 0 01/05/2024 Active Comment on above: Use as directed. Completed/Discontinued Medications Medication Drug Class(es) Dates Sig (Normalized) Sig (Original) amantadine hydrochloride 100 mg oral tablet (20 sources) Influenza A M2 Protein Inhibitor Start: 04-03-2021 End: 05-07-2023 take 1 tablet by mouth twice daily Amantadine Hcl 100 mg tablet Discontinued 100 mg PO TWICE A DAY 180 0 April 03, 2021 12:00am May 07, 2023 11:07am Start: 01-21-2021 End: 04-03-2021 take 1 capsule by mouth once daily, then take 1 capsule by mouth twice daily Amantadine Hcl 100 mg capsule Discontinued 100 mg PO .COMPLEX 180 0 March 19, 2021 4:26pm April 03, 2021 11:53am 100 mg PO daily for one week then 100 mg BID thereafter amLODIPine 5 mg oral tablet (6 sources) Dihydropyridine Calcium Channel Marianela Start: 11-30-2024 End: 02-27-2025 take 1 tablet by mouth once daily Amlodipine 5 mg tablet Discontinued 5 mg PO daily 90 3 November 30, 2024 1:00am February 27, 2025 11:02am amoxicillin 875 mg / clavulanate 125 mg oral tablet (6 sources) Penicillin-class Antibacterial Start: 10-27-2024 End: 10-27-2024 Amoxicillin-Pot Clavulanate 875-125 mg tablet Discontinued 1 {tbl} PO Q12H 20 10 0 October 27, 2024 1:00am November 05, 2024 1:00am October 27, 2024 4:17pm Blood-Glucose Meter (Accu-Chek Bettina Plus Meter) misc (8 sources) Start: 05-03-2020 End: 11-01-2024 Blood-Glucose Meter (Accu-Chek Bettina Plus Meter) misc Discontinued 0 .ROUTE .MEDSUPPLY 200 3 May 03, 2020 12:00am November 01, 2024 11:01am test twice a day Start: 05-03-2020 End: 11-01-2024 Blood-Glucose Meter (Accu-Ch ek Bettina Plus Meter) misc Discontinued 0 .ROUTE [...] 03, 2020 12:00am test twice a day carbidopa 25 mg oral tablet (11 sources) Aromatic Amino Acid Decarboxylation Inhibitor Start: 07-07-2023 End: 05-16-2025 take 1 tablet by mouth three times daily carbidopa (LODOSYN) 25 mg tab Indications: Parkinson disease (HCC) Take 1 tablet by mouth three times daily. With every Sinemet dose 90 tablet 11 07/07/2023 05/16/2025 Discontinued Comment on above: Take 1 tablet by bhaskar th three times daily. With every Sinemet dose cephalexin 500 mg oral capsule (6 sources) Cephalosporin Antibacterial Start: 11-01-2024 End: 11-08-2024 take 1 capsule by mouth every twelve hours Cephalexin 500 mg Capsule Discontinued 500 mg PO EVERY 12 HOURS 0 0 November 01, 2024 1:00am November 08, 2024 5:26pm dapagliflozin 5 mg oral tablet (20 sources) Sodium-Glucose Cotransporter 2 Inhibitor Start: 06-04-2022 End: 09-29-2024 take 1 tablet by mouth once daily Dapagliflozin Propanediol (Farxiga) 5 mg tablet Discontinued 5 mg PO DAILY 90 1 September 14, 2024 2:41pm September 29, 2024 3:10pm Microalbuminuria Uncontrolled type II diabetes mellitus Proteinuria, unspecified Type 2 diabetes mellitus with hyperglycemia Comment on above: Take 5 mg by [...] mg tablet Discontinued 25 mg PO DAILY 90 3 February 23, 2020 9:50am May 07, 2023 11:08am EDEMA Start: 06-17-2019 End: 06-20-2019 Hydrochlorothiazide 25 mg ta blet Discontinued 12.5 mg PO DAILY June 17, 2019 12:42pm June 20, 2019 12:04pm EDEMA Start: 06-17-2019 End: 06-20-2019 take 12.5 mg [...] 28, 2018 12:00am June 17, 2019 12:45pm EDEMA Comment on above: Take 1/2 tablet jenifer y Lactobacillus Combination No.4 (2 sources) Start: 11-15-2015 End: 06-17-2019 Lactobacillus Combination No.4 Discontinued 1 EACH PO DAILY November 15, 2015 12:00am June 17, 2019 11:45am Start: 11-15-2015 End: 06-17-2019 Lactobacillus Combination No .4 Discontinued 1 EACH PO DAILY November 15, 2015 1:00am June 17, 2019 12:45pm Lactobacillus Combination No.4 1 EACH capsule (6 sources) Start: 11-15-2015 End: 06-17-2019 take 1 capsule by mouth once daily Lactobacillus Combination No.4 1 EACH capsule Discontinued 1 NMA PO DAILY November 15, 2015 1:00am June 17, 2019 12:45pm [facility] Start: 11-15-2015 End: 06-17-2019 take 1 capsule by mouth once daily Lactobacillus Combination No.4 1 EACH capsule Discontinued 1 NMA PO DAILY November 15, 2015 1:00am June 17, 2019 12:45pm levothyroxine sodium 0.075 mg oral tablet (20 sources) l-Thyroxine Start: 06-15-2018 End: 06-13-2021 take 1 tablet by mouth once daily Levothyroxine 75 MCG tablet Discontinued 75 ug PO DAILY June 15, 2018 12:00am June 13, 2021 9:46am thyroid Start: 11-26-2017 take 1 tablet by bhaskar th once daily Levothyroxine 50 mcg tablet Active 50 ug PO DAILY June 13, 2021 12:00am THYROID Start: 11-26-2017 levothyroxine (SYNTHROID) 75 mcg tablet [...] mg PO DAILY January 21, 2021 9:11am SUPPLEMENT Start: 12-08-2018 End: 01-21-2021 take 1 tablet [...] mouth twice daily. Multivitamin 1 EACH tablet (6 sources) Start: 11-15-2015 End: 06-17-2019 Multivitamin 1 EACH tablet Discontinued 1 NMA PO DAILY November 15, 2015 1:00am June 17, 2019 12:45pm supplement Start: 11-15-2015 End: 06-17-2019 Multivitamin 1 EACH tablet D iscontinued 1 NMA PO DAILY November 15, 2015 1:00am June 17, 2019 12:45pm Multivitamin preparation (2 sources) Start: 11-15-2015 End: 06-17-2019 Multivitamin Discontinued 1 EACH PO DAILY November 15, 2015 12:00am June 17, 2019 11:45am Start: 11-15-2015 End: 06-17-2019 Multivitamin Discontinued 1 EACH PO DAILY November 15, 2015 1:00am June 17, 2019 12:45pm ondansetron 4 mg oral tablet (20 sources) Serotonin-3 Receptor Antagonist Start: 07-28-2018 End: 05-07-2023 take 1 tablet by mouth twice daily Ondansetron Hcl 4 mg tablet Discontinued 4 mg PO TWICE A DAY 180 0 March 19, 2021 4:29pm May 07, 2023 11:09am Nausea pantoprazole 40 mg delayed release oral tablet (8 sources) Proton Pump Inhibitor Start: 06-13-2021 End: 05-07-2023 take 1 tablet by mouth once daily Pantoprazole 40 mg tablet,delayed release (DR/EC) Discontinued 40 mg PO DAILY 30 0 June 13, 2021 12:00am May 07, 2023 [...] 21, 2021 12:00am February 27, 2025 11:05am . Comment on above: Take 1 tablet by bhaskar th twice daily. Take 1 tablet by bhaskar th two times a day. VIT B COMPLEX 100 COMBO NO.2 ORAL (19 sources) End: 05-16-2025 VIT B COMPLEX 100 COMBO NO.2 ORAL Take by mouth. PRN 05/16/2025 Discontinued VIT B COMPLEX 10 0 COMBO NO.2 ORAL Take by mouth. PRN Active VIT B COMPLEX 10 0 COMBO NO.2 ORAL Take by mouth. PRN 0 Active VIT B COMPLEX 10 0 COMBO NO.2 ORAL Take by mouth. 0 Active Comment on above: Take by mouth. Take by mouth. PRN Problems Active Problems Problem Classification Problem Date Documented Da te Episodic/Chronic Cardiac dysrhythmias (6 sources) Premature atrial contraction; Translations: [Atrial premature depolarization] Onset: 5 03-02-2025 Chronic Cardiac dysrhythmias (1 source) Palpitations; Translations: [Palpitations] 01-22-2025 Episodic Chronic kidney disease (15 sources) Chronic kidney disease; Translations: [Chronic kidney disease, unspecified] Chronic Chronic ulcer of skin (8 sources) Ulcer of lower extremity; Translations: [Non-pressure chronic ulcer of unspecified part of right lower leg with fat layer exposed] Onset: 5 10-27-2024 Chronic Complication of device; implant or graft (8 sources) Arteriosclerosis of coronary artery bypass graft; Translations: [Atherosclerosis of coronary artery bypass graft(s) without angina pectoris] 06-17-2019 Chronic Congestive heart failure; nonhypertensive (2 sources) Diastolic heart failure; Translations: [Unspecified diastolic (congestive) heart failure] Onset: 5 01-22-2025 Chronic Coronary atherosclerosis and other heart disease (20 sources) Atherosclerotic heart disease of [place] coronary artery without angina pectoris; Translations: [Coronary arteriosclerosis] Onset: 8 04-23-2021 Chronic Diabetes mellitus with complications (20 sources) Neuropathy due to diabetes mellitus; Translations: [...] hyperlipidemia] Onset: 7 02-23-2017 Chronic Essential hypertension (20 sources) Hypertensive disorder; Translations: [Unspecified essential hypertension] Onset: 5 Chronic Genitourinary symptoms and ill-defined conditions (20 sources) Increased frequency of urination; Translations: [Frequency of micturition] Onset: 3 12-06-2012 Episodic Headache; including migraine (2 sources) Posttraumatic headache; Translations: [Post-traumatic headache, unspecified, not intractable] Onset: 5 05-16-2025 Episodic Headache; including migraine (1 source) Headache; including migraine; Translations: [Headache, unspecified] Onset: 5 Hyperplasia of prostate (20 sources) Benign prostatic hyperplasia; Translations: [Benign prostatic hyperplasia without lower urinary tract symptoms] Onset: 3 12-06-2012 Chronic Malaise and fatigue (20 sources) Malaise and fatigue; Translations: [Other malaise] Onset: 8 10-10-2015 Episodic Other and ill-defined heart disease (8 sources) Diastolic dysfunction; Translations: [Other ill-defined heart diseases] 11-30-2024 Chronic Other and ill-defined heart disease (1 source) Other ill-defined heart diseases; Translations: [Other ill-defined heart diseases] Onset: 5 Chronic Other connective tissue disease (1 source) Increased muscle tone; Translations: [Other specified disorders of muscle] Episodic Other connective tissue disease (1 source) Muscle pain; Translations: [Myalgia, unspecified site] Episodic Other gastrointestinal disorders (8 sources) Burping; Translations: [Eructation] 06-13-2021 Episodic Other gastrointestinal disorders (1 source) Slow transit constipation; Translations: [Slow transit constipation] 07-07-2023 Episodic Other hereditary and degenerative nervous system conditions (20 sources) Essential tremor; Translations: [Essential tremor] Onset: 9 05-16-2019 Chronic Other hereditary and degenerative nervous system conditions (8 sources) Impaired cognition; Translations: [Mild cognitive impairment, so stated] 04-29-2021 Chronic Other nervous system disorders (20 sources) Chronic inflammatory demyelinating polyradiculoneuropathy ; Translations: [Chronic inflammatory demyelinating polyneuritis] Onset: 7 04-23-2021 Chronic Other nervous system disorders (8 sources) Polyneuropathy; Translations: [Polyneuropathy, unspecified] 05-17-2023 Chronic Other nutritional; endocrine; and metabolic disorders (6 sources) Overweight in adulthood with body mass index of 25 or more but less than 30; Translations: [Body mass index (BMI) 26.0-26.9, adult] 11-09-2024 Episodic Parkinson`s disease (20 sources) Parkinson's disease; Translations: [Parkinson's disease] Onset: 9 04-23-2021 Chronic Parkinson`s disease (3 sources) Parkinson`s disease; Translations: [Parkinson's disease without dyskinesia or fluctuating manifestations (HCC)] Onset: Peripheral and visceral atherosclerosis (12 sources) Atherosclerosis of aorta; Translations: [Atherosclerosis of aorta] 11-09-2024 Chronic Pulmonary heart disease (6 sources) Pulmonary hypertension; Translations: [Pulmonary hypertension, unspecified] 11-09-2024 Chronic Residual codes; unclassified (8 sources) History of chest pain; Translations: [Personal history of other specified conditions] 06-17-2019 Episodic Residual codes; unclassified (8 sources) Edema; Translations: [Edema, unspecified] 06-04-2022 Episodic Spondylosis; intervertebral disc disorders; other back problems (8 sources) Spinal stenosis in cervical region; Translations: [Spinal stenosis, cervical region] 04-29-2021 Episodic Thyroid disorders (17 sources) Hypothyroidism; Translations: [Hypothyroidism, unspecified] Chronic Unclassified (1 source) Unknown / UNK(Unknown) Onset: 8 Viral infection (4 sources) Postherpetic neuralgia; Translations: [Other postherpetic nervous system involvement] Onset: 01-04-2024 Episodic Past or Other Problems Problem Classification Problem Date Documented Da te Episodic/Chronic Acute and unspecified renal failure (20 sources) Acute injury of kidney; Translations: [Acute kidney failure, unspecified] Onset: 04-23-2021 04-23-2021 Episodic Coronary atherosclerosis and other heart disease (12 sources) Stented coronary artery; Translations: [Presence of coronary angioplasty implant and graft] Onset: 07-29-2018 06-17-2019 Episodic Comment on above: 07/29/2018:JACQUELINE of pr oximal Diagonal #1, 2.25 X 8 [employer]nergy per DJN @ [facility]07/20/2018:JACQUELINE of mid [place] RPL branch, 3.0 X 16 [employer] ; JACQUELINE of distal SVG to RCA, 2.5 X 20 [employer] per DJN @ [facility] Nonspecific chest pain (18 sources) Chest pain; Translations: [Chest pain, unspecified] Onset: 11-30-2024 04-21-2021 Episodic Other connective tissue disease (2 sources) Muscle wasting and atrophy, not elsewhere classified, right lower leg; Translations: [Muscle wasting and atrophy, not elsewhere classified, right lower leg] Onset: 12-20-2024 Episodic Other connective tissue disease (2 sources) Muscle wasting and atrophy, not elsewhere classified, left lower leg; Translations: [Muscle wasting and atrophy, not elsewhere classified, left lower leg] Onset: 12-20-2024 Episodic Other nervous system disorders (20 sources) Abnormal gait; Translations: [Unsteadiness on feet] Onset: 10-24-2021 10-24-2021 Episodic Residual codes; unclassified (2 sources) Edema, unspecified; Translations: [Edema] Onset: 12-30-2024 Episodic Residual codes; unclassified (1 source) Personal history of other specified conditions; Translations: [Personal history of other specified conditions] Onset: 11-30-2024 Episodic Urinary tract infections (9 sources) Acute urinary tract infection; Translations: [Urinary tract infection, site not specified] Onset: 12-20-2024 11-09-2024 Episodic Results Test Name Value Interpretation Reference Range Facility Absolute lymphocyte countOrd ered By: Buzz Rainey on 06-22-2025 Lymphocytes Auto (Unsp spec) [#/Vol] 1.07 10*3/uL 0.83-4.51 [facility] Absolute neutrophil countOrd ered By: Buzz Rainey on 06-22-2025 Neutrophils (Bld) [#/Vol] 3.6 10*3/uL 2.0-7.7 [facility] Anion gap in Serum or Plasma Ordered By: Buzz Rainey on 06-22-2025 Anion gap [Moles/Vol] 11 mmol/L 5-15 [facility] Automated lymphocyte count a s percentage of total leukocytesOrdered By: Buzz Rainey on 06-22-2025 Lymphocytes/100 WBC Auto (Unsp spec) 19.5 % 19-41 [facility] BUN/creatinine ratioOrdered By: yumikoperaltaestrella Rainey on 06-22-2025 Urea nitrogen/Creatinine [Mass ratio] 30.5 mg/mg High 10-20 [facility] Basophil percentageOrdered B y: Buzz Rainey on 06-22-2025 Basophils/100 WBC (Bld) 0.5 % 0-1 [facility] Carbon dioxide, total [Moles /volume] in Central venous bloodOrdered By: Buzz Rainey on 06-22-2025 CO2 [Moles/Vol] 25.0 mmol/L 21.0-32.0 [facility] Chloride assayOrdered By: Alexandra Rainey on 06-22-2025 Chloride [Moles/Vol] 100 mmol/L 98-108 [facility] Eosinophil percentageOrdered By: tamanna Rainey on 06-22-2025 Eosinophils/100 WBC (Bld) 3.5 % 0-5 [facility] Erythrocyte distribution wid th ratioOrdered By: Buzz Rainey on 06-22-2025 Erythrocyte distribution width (RBC) [Ratio] 13.2 % 11.6-14.6 [facility] Erythrocyte distribution wid th standard deviationOrdered By: Buzz Rainey on 06-22-2025 Erythrocyte distribution width (RBC) [Ratio] 49.6 fl High 35.1-43.9 [facility] Glomerular filtration rate ( GFR) estimation/1.73 sq m using serum, plasma, or whole bOrdered By: Buzz Rainey on 06-22-2025 GFR/1.73 sq M.predicted among non-blacks MDRD (S/P/Bld) [Vol rate/Area] 70 mL/min/{1.73_m2} >60 [facility] Comment on above: mL/min/1.73m2 CKD-EP I Creatinine Equation (2020) Hematocrit Auto (Bld) [Volum e fraction]Ordered By: Buzz Rainey on 06-22-2025 Hematocrit (Bld) [Volume fraction] 40.0 % 40-54 [facility] Hemoglobin measurementOrdere d By: Buzz Rainey on 06-22-2025 Hemoglobin (Bld) [Mass/Vol] 13.3 g/dL 13.0-16.5 [facility] Immature granulocytes/100 WB C Auto (Bld)Ordered By: Buzz Rainey on 06-22-2025 Immature granulocytes/100 WBC (Bld) 0.200 % 0.0-0.9 [facility] Comment on above: IG% - Immature Granu locytes (promyelocytes, myelocytes and metamyelocytes) > 1% indicates that a LEFT SHIFT is Present. MCV (mean corpuscular volume ) determinationOrdered By: Buzz Rainey on 06-22-2025 MCV (RBC) [Entitic vol] 101.3 fL High 80-94 [facility] Mean corpuscular hemoglobin (MCH) determinationOrdered By: Buzz Rainey 06-22-2025 MCH (RBC) [Entitic mass] 33.7 pg High 27.0-32.0 [facility] Mean corpuscular hemoglobin concentration (MCHC) determinationOrdered By: Buzz Rainey 06-22-2025 MCHC (RBC) [Mass/Vol] 33.3 g/dL 32-36 [facility] Mean platelet volume determi nationOrdered By: uBzz Rainey on 06-22-2025 Platelet mean volume (Bld) [Entitic vol] 10.5 fL 6.2-12.0 [facility] Monocyte percentageOrdered B y: Buzz Rainey on 06-22-2025 Monocytes/100 WBC (Bld) 11.3 % High 0-10 [facility] Neutrophil percentageOrdered By: Buzz Rainey on 06-22-2025 Neutrophils/100 WBC (Bld) 65.0 % 47-70 [facility] Nucleated red blood cell per centageOrdered By: Buzz Rainey on 06-22-2025 Nucleated RBC/100 WBC (Bld) [Ratio] 0 % 0-5 [facility] Platelet countOrdered By: Alexandra Rainey on 06-22-2025 Platelets (Bld) [#/Vol] 206 10*3/uL 150-450 [facility] Potassium measurement (mass/ volume)Ordered By: Buzz Rainey on 06-22-2025 Potassium (Unsp spec) [Mass/Vol] 4.8 mmol/L 3.3-5.1 [facility] RBC Auto (Bld) [#/Vol]Ordere d By: Buzz Rainey on 06-22-2025 RBC (Bld) [#/Vol] 3.95 10*6/uL Low 4.6-6.2 [facility] Serum creatinine measurement (mass/volume)Ordered By: Buzz Rainey on 06-22-2025 Creatinine [Mass/Vol] 1.06 mg/dL 0.70-1.20 [facility] Serum glucose measurement (m ass/volume)Ordered By: Buzz Rainey on 06-22-2025 Glucose [Mass/Vol] 180 mg/dL High 70-99 [facility] Serum or plasma calcium jesenia urement (mass/volume)Ordered By: Buzz Rainey on 06-22-2025 Calcium [Mass/Vol] 9.4 mg/dL 7.6-11.0 [facility] Serum or plasma urea nitroge n measurement (mass/volume)Ordered By: Buzz Rainey on 06-22-2025 Urea nitrogen [Mass/Vol] 32 mg/dL High 4-19 [facility] Sodium levelOrdered By: Otilia Rainey on 06-22-2025 Sodium [Moles/Vol] 136 mmol/L 133-145 [facility] White blood cell (WBC) count Ordered By: Buzz Rainey on 06-22-2025 WBC (Bld) [#/Vol] 5.5 10*3/uL 4.4-11.0 [facility] CNPNon 06-21-2025 CNPN Telephone (NRMDN) FLEX KLINE ([id number]) 1940 M Date Time Provider Department 06/21/25 ELANA CASTAÑEDA During your visit today, we recorded the following information about you: Caitlin Tenorio MA 06/21/2025 11:35 AM Signed Received and order for increased carbidopa/levodopa from [facility]. Placed on Dr. Castañeda desk for signature. Caitlin Tenorio MA 06/22/2025 1:35 PM Signed Orders placed in outgoing mail in the facility addressed envelope mailed to us from the facility. Mailed out on 06/21/25. Allergies As of Date: 06/21/2025 Noted Allergy Reaction BETA BLOCKERS (BETA-BLOCKERS (BET*07/01/2010 12 - Shortness of Breath Comments: Tongue swelling Date Reviewed: 05/16/2025 Reviewed by: Elana Castañeda MD - Fully Assessed Reason for Visit: Orders [681] Prescriptions as of 06/22/2025 - carbidopa-levodopa (SINEMET 25-100) 25-100 mg per tablet Take 2 tablets by mouth three times a day. Take at 9a, 1p, 6p - Gabapentin 400 mg tab Take 400 mg by mouth three times a day. Take at 9a, 1p, 6p - clopidogrel (PLAVIX) 75 mg tablet Take 75 mg by mouth once daily. - isosorbide mononitrate ER (IMDUR) 30 mg 24 hr tablet Take 30 mg by mouth once daily. - furosemide (LASIX) 20 mg tablet Take 1 tablet by mouth every 48 hours. - lisinopril (ZESTRIL) 5 mg tablet Take 1 tablet by mouth once daily. - nitroglycerin sublingual (NITROSTAT) 0.4 mg SL tablet Dissolve 1 tablet under the tongue as needed. FOR CHEST PAIN. IF NO RELIEF CALL 911 - WALKER ROLLATOR SEAT WITH 6" WHEELS - RED Use as directed. - atorvastatin (LIPITOR) 80 mg tablet Take 0.5 tablets by mouth once daily. - FARXIGA 5 mg tablet Take 5 mg by mouth once daily. - aspirin 325 mg tablet Take 325 mg by mouth once daily. - cholecalciferol, vitamin D3, (VITAMIN D3 ORAL) Take by mouth. - B infantis/B ani/B tori/B bifid (PROBIOTIC 4X ORAL) Take by mouth. - glimepiride (AMARYL) 4 mg tablet Take 4 mg by mouth twice daily with meals. - tamsulosin ER (FLOMAX) 0.4 mg cap Take 1 capsule by mouth once daily. - magnesium oxide (MAG-OX) 400 mg (241.3 mg magnesium) tablet Take 1 tablet by mouth once daily. - levothyroxine (SYNTHROID) 50 mcg tablet Take 50 mcg by mouth once daily. - metFORMIN 1,000 mg ORAL tablet Take 1,000 mg by mouth twice daily with meals. Problem List As Of Date 06/21/2025 Noted Resolved MALAISE AND FATIGUE NEC [R53.81, R53.83] 06/27/2008 Coronary atherosclerosis [I25.10] 06/27/2008 Urinary frequency [R35.0] 12/06/2012 BPH (benign prostatic hyperplasia) [N40.0] 12/06/2012 Hesitancy of micturition [R39.11] 12/06/2012 CIDP (chronic inflammatory demyelinating polyne*12/16/2016 Controlled type 2 diabetes mellitus without com*02/23/2017 Pure hypercholesterolemia [E78.00] 02/23/2017 Parkinson disease (HCC) [G20.A1] 05/16/2019 Essential tremor [G25.0] 05/16/2019 Unstable angina pectoris (HCC) [I20.0] 06/03/2020 Unstable angina (HCC) [I20.0] 04/22/2021 Angina at rest (HCC) [I20.89] 04/23/2021 MADELEINE (acute kidney injury) (HCC) [N17.9] 04/23/2021 Gait instability [R26.81] 10/24/2021 Encounter Status:Closed by CAITLIN TENORIO on 06/22/25 [facility] 05-29-2025 CNPN Telephone (NREUS2) FLEX KLINE ([id number]) 1940 M Date Time Provider Department 05/29/25 ELANA CASTAÑEDA NREUS2 During your visit today, we recorded the following information about you: Rod KelseyFarhana 05/29/2025 9:47 AM Signed Yocasta (pt's daughter) called to request prescriptions for Carbidopa Levodopa 25/100 mg and Gabapentin 400 mg be faxed to [phone]/[facility]. If needed Yocasta may be reached at [phone]. 05/16/25 SHEREEN w/Caitlin Mays MA 05/29/2025 10:35 AM Signed Orders pended for printing if agreeable. MIKE 05/16/25 NOV 09/19/25 Elana Castañeda MD 05/29/2025 12:21 PM Signed Done and in outbox. Caitlin Tenorio MA 05/29/2025 2:03 PM Signed Orders faxed to [facility] and confirmation received Jazzy Rodriguez 06/01/2025 11:01 AM Signed Pt phoned - the orders received at [facility] state to take his Gabapentin at 9am and 6pm. He cannot function with these times and need to state - 6am and 9pm. New orders need faxed to [phone]/[facility], [facility]. Marguerite Easley RN 06/01/2025 11:55 AM Signed Last OV gabapentin was increased to three times daily. Call to [facility] for clarification. Spoke with nurse Gunjan. She states she was not the one who made this request but did confirm that their order is three times daily. She is unsure why this request was made. No action indicated at this time. Radha Montana 06/22/2025 10:18 AM Signed Patients daughter calling to ask for update Gabapentin order to say 6 am,1 pm, and 9 pm faxed to facility. [phone] Elana Castañeda MD 06/22/2025 1:30 PM Signed We received an order slip to sign from his [facility]. See separate encounter. Was for both carbidopa-levodopa and gabapentin Caitlin Tenorio MA 06/22/2025 1:33 PM Signed Orders were placed in outgoing mail in facility addressed envelope mailed to us from the facility. Caitlin Tenorio MA 06/22/2025 1:43 PM Signed Daughter notified orders were placed in mail in envelope from facility Allergies As of Date: 05/29/2025 Noted Allergy Reaction BETA BLOCKERS (BETA-BLOCKERS (BET*07/01/2010 12 - Shortness of Breath Comments: Tongue swelling Date Reviewed: 05/16/2025 Reviewed by: Elana Castañeda MD - Fully Assessed Reason for Visit: Request Rx's fax to Nursing Facility [Other] Visit Diagnoses:Parkinson's disease without dyskinesia or fluctuating manifestations (HCC) [G20.A1] Post herpetic neuralgia [B02.29] Order(s):carbidopa-levo dopa (SINEMET 25-100) 25-100 mg per tabletTake 2 tablets by mouth three times a day. Take at 9a, 1p, 6pDisp: 540 tabletRfl: 3 Gabapentin 400 mg tabTake 400 mg by mouth three times a day. Take at 9a, 1p, 6pDisp: 90 tabletRfl: 5 Prescriptions as of 06/22/2025 - carbidopa-levodopa (SINEMET 25-100) 25-100 mg per tablet Take 2 tablets by mouth three times a day. Take at 9a, 1p, 6p - Gabapentin 400 mg tab Take 400 mg by mouth three times a day. Take at 9a, 1p, 6p - clopidogrel (PLAVIX) 75 mg tablet Take 75 mg by mouth once daily. - isosorbide mononitrate ER (IMDUR) 30 mg 24 hr tablet Take 30 mg by mouth once daily. - furosemide (LASIX) 20 mg tablet Take 1 tablet by mouth every 48 hours. - lisinopril (ZESTRIL) 5 mg tablet Take 1 tablet by mouth once daily. - nitroglycerin sublingual (NITROSTAT) 0.4 mg SL tablet Dissolve 1 tablet under the tongue as needed. FOR CHEST PAIN. IF NO RELIEF CALL 911 - WALKER ROLLATOR SEAT WITH 6" WHEELS - RED Use as directed. - atorvastatin (LIPITOR) 80 mg tablet Take 0.5 tablets by mouth once daily. - FARXIGA 5 mg tablet Take 5 mg by mouth once daily. - aspirin 325 mg tablet Take 325 mg by mouth once daily. - cholecalciferol, vitamin D3, (VITAMIN D3 ORAL) Take by mouth. - B infantis/B ani/B tori/B bifid (PROBIOTIC 4X ORAL) Take by mouth. - glimepiride (AMARYL) 4 mg tablet Take 4 mg by mouth twice daily with meals. - tamsulosin ER (FLOMAX) 0.4 mg cap Take 1 capsule by mouth once daily. - magnesium oxide (MAG-OX) 400 mg (241.3 mg magnesium) tablet Take 1 tablet by mouth once daily. - levothyroxine (SYNTHROID) 50 mcg tablet Take 50 mcg by mouth once daily. - metFORMIN 1,000 mg ORAL tablet Take 1,000 mg by mouth twice daily with meals. Problem List As Of Date 05/29/2025 Noted Resolved MALAISE AND FATIGUE NEC [R53.81, R53.83] 06/27/2008 Coronary atherosclerosis [I25.10] 06/27/2008 Urinary frequency [R35.0] 12/06/2012 BPH (benign prostatic hyperplasia) [N40.0] 12/06/2012 Hesitancy of micturition [R39.11] 12/06/2012 CIDP (chronic inflammatory demyelinating polyne*12/16/2016 Controlled type 2 diabetes mellitus without com*02/23/2017 Pure hypercholesterolemia [E78.00] 02/23/2017 Parkinson disease (HCC) [G20.A1] 05/16/2019 Essential tremor [G25.0] 05/16/2019 Unstable angina pectoris (HCC) [I20.0] 06/03/2020 Unstable angina (HCC) (more content not included)... Normal [facility] CNOVon 05-16-2025 CNOV Office Visit (NRMDN) FLEX KLINE ([id number]) 1940 M Date Time Provider Department 05/16/25 11:30 AM ELANA CASTAÑEDA NRJANES During your visit today, we recorded the following information about you: Pulse Blood pressure 78/minute 136/75 Elana Castañeda MD 05/16/2025 12:54 PM Signed [facility] - FOLLOW UP EVALUATION Recording using [employer] software for draft documentation of the visit was discussed with the patient/authorized industrial relations representative; all questions welcomed and answered. Patient/authorized industrial relations representative agreed to proceed Vincent Tello MD [id number] [facility] [id number] Dear Vincent Tello MD: I had the pleasure of seeing Mr. Kline for follow-up today. As you know he is a 85 year old right-handed male with a history of ET/PD since 2016(?) . 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 Subjective Previous Plan- 07/07/2023 Visit: Add carbidopa to every Sinemet [...] which is available over the counter - Interval History: Flex Kline is an 85-year-old male with a history of Parkinson's disease and essential tremor, presenting for follow-up. He is accompanied by his daughter, who provides additional history. Flex reports worsening tremors affecting both hands, with the right hand being more severely impacted. These tremors interfere with daily activities, such as eating, requiring him to sometimes switch utensils to his left hand. He describes the tremors as present pretty much all the time." He also reports increased drooling, occurring both during the day and at night, which he manages by ensuring he "catches" his saliva. He notes a decline in balance and walking ability, now requiring the use of a walker. He has experienced one fall six weeks ago, on his birthday while attempting to sit on the toilet, resulting in a head injury. Since the fall, he has been experiencing daily headaches, described as throbbing and located at the front and back of his head. He also reports photophobia and phonophobia. The headaches are sometimes alleviated by Tylenol and gabapentin. He does not endorse dizziness. A CT scan performed last week was reportedly clear. He is currently taking carbidopa-levodopa (Sinemet) twice daily, with doses at 9:00 AM and 3:30-4:00 PM. He reports not feeling any effects from the medication and believes he may not be taking it correctly. He was previously prescribed two pills three times a day but this was changed at some point by someone. He has been in a NH off and on. He also takes gabapentin 400 mg twice daily, reduced from 600 mg three times daily. He reports withdrawal symptoms, including shortness of breath, itching, and cold sweats, when doses are delayed. Flex has been living at home for the past ten days after a stay in assisted living. He receives assistance from home health physical therapy once a week and support from family. He expresses a desire for more therapy and access to exercise equipment. Movement Disorders Medications Schedule - as of the start of the visit: Medications 8 4 night Sinemet 25/100 2 2 gabapentin 400 mg 1 1 Parkinson's Motor Complications Medication duration: unclear Wearing off: no Dyskinesia: no Prior Anti-Parkinson Therapies Carbidopa/Levodopa Entacapone Other Movement Disorder Prior Therapies Primidone Questionnaires: In addition, the following areas that may be affected by abnormal involuntary movements were evaluated: Daily activities Difficulties with eating: Yes (moderate) Difficulties in dressing: Yes (moderate) Difficulties with hygiene activities: Yes (moderate) Difficulties with handwriting: Yes (severe) Difficulties with doing hobbies and other activities: Yes (severe) Difficulties turning in bed: Yes (moderate) Difficulties getting out of bed, car or chair: Yes (moderate) Tremors/Gait/Balance Shaking or tremors: Yes (severe) Walking and balance problems: Yes (moderate) Number of falls in the Last Month: 0 Gait freezing: Yes (moderate) Autonomic/Pain Lightheadeness on standing: Yes (slight) Urinary problems: Yes (moderate) Constipation problems: Yes (severe) Pain and other sensations: Yes (moderate) Speech/Swallowing Speech problems: Yes (slight) Drooling: Yes (moderate) Chewing and swallowing problems: Yes (mild) Sleep/Fatigue Sleep problems: Yes (moderate) Daytime sleepiness: Yes (moderate) Fatigue: Yes (moderate) Mood/Behavior Depression: PHQ-9 Score: 8 usually representi (more content not included)... Normal [facility] Brain/Head without Contrasto n 05-10-2025 Brain/Head without Contrast [facility] Imaging Services [address] [place] [id number] Brain/Head without Contrast MR#: [id number] Acct: [id number] Name: FLEX KLINE Rep #: [id number] : 1940 M 85 From: Fadumo rodriguez MD PCP: Dr. Felix Montelongo MD Status: REG CLI Study: Brain/Head without Contrast Date of Exam: 04/22 08/16 Exam# [id number] Ordering Dr: Dirk Camacho MD PROCEDURE: BRAIN/HEAD WITHOUT CONTRAST 05/11/2025 REASON FOR EXAM: CONCUSSION WITH LOSS OF CONCIOUSNESS TECHNIQUE: BRAIN/HEAD WITHOUT CONTRAST Coronal and Sagittal reconstruction series were provided. One or more dose reduction techniques were used (e.g., Automated exposure control, adjustment of the mA and/or kV according to patient size, use of iterative reconstruction technique. RADIATION DOSE SUMMARY: CTDlvol: mGy DLP: mGycm COMPARISON: none FINDINGS: Accentuated bilateral cerebral periventricular deep white matter hypodensities denoting hypoperfusion with bilateral cerebral periventricular and subcortical hypodense foci and patches. Ca-white matter differentiation is maintained. Normal CT appearance of the posterior fossa structures. Ca-white matter differentiation is maintained. No intra or extra-axial areas of blood densities. Dilated ventricular system, cortical sulci and extra-axial CSF spaces. No definite calvarial fractures. No midline shifts or deformity. The osseous structures in the skull base are unremarkable. Paranasal sinuses are unremarkable. Vascular atheromatous calcifications. CT/Brain/Head without Contrast IMPRESSION: No acute cerebrovascular pathology. If there is high clinical suspicion, correlate to MRI No intra or extra-axial acute hematomas. Bilateral cerebral microvascular ischemic changes with age matches brain involutional changes Reading Location: [place] [address] CC: Dr. Dirk Camacho MD; Dr. 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 Normal [facility] Calculated very low density lipoprotein (VLDL) cholesterol measurementOrdered By: Buzz Rainey on 05-03-2025 Calculated very low density lipoprotein (VLDL) cholesterol measurement 15 mg/dL 5-40 [facility] LDL calc ser/plasOrdered By: Buzz Rainey on 05-03-2025 Cholesterol in LDL [Mass/Vol] 56 mg/dL [facility] Comment on above: Uxmsuqfkve=623-662 m g/dL & Higher Cqmf=538 mg/dL or greater Screening total cholesterol/ high density lipoprotein (HDL) cholesterol ratioOrdered By: Buzz Rainey on 05-03-2025 Cholesterol.total/Elly sterol in HDL [Mass ratio] 2.70 {ratio} [facility] Serum or plasma cholesterol in HDL measurement (mass/volume)Ordered By: Buzz Rainey on 05-03-2025 Cholesterol in HDL [Mass/Vol] 42 mg/dL >40 [facility] Comment on above: National Cholesterol Education Program (NCEP) guidelines:<40 mg/dL: Low HDL-cholesterol (major risk factor for CHD)>= 60 mg/dL: High HDL-cholesterol (negative risk factor for CHD)HDL-cholesterol is affected by a number of factors, e.g. smoking, exercise, hormones, sex and age. Serum or plasma cholesterol measurement (mass/volume)Ordered By: Buzz Rainey on 05-03-2025 Cholesterol [Mass/Vol] 113 mg/dL <201 [facility] Comment on above: Cholesterol level, D esirable <200 mg/dLBorderline high cholesterol 200-239 mg/dLHigh cholesterol >=240 mg/dLRecommendations of the NCEP Adult Treatment Panel for the following risk-cutoff thresholds for the [place] population. Triglycerides measurementOrd ered By: Buzz Rainey on 05-03-2025 Triglyceride [Mass/Vol] 74 mg/dL <199 [facility] Comment on above: The drugs N-Acetylcy steine and Metamizole may falsely depress this assay. Normal range: <150 mg/dLBorderline High: 150-199 mg/dLHigh: 200-499 mg/dLVery High: >500 mg/dL Absolute lymphocyte countOrd ered By: Buzz Rainey on 04-26-2025 Lymphocytes Auto (Unsp spec) [#/Vol] 0.88 10*3/uL 0.83-4.51 [facility] Absolute neutrophil countOrd ered By: Buzz Rainey on 04-26-2025 Neutrophils (Bld) [#/Vol] 3.0 10*3/uL 2.0-7.7 [facility] Anion gap in Serum or Plasma Ordered By: Buzz Raniey on 04-26-2025 Anion gap [Moles/Vol] 10 mmol/L 5-15 [facility] Automated lymphocyte count a s percentage of total leukocytesOrdered By: Buzz Rainey on 04-26-2025 Lymphocytes/100 WBC Auto (Unsp spec) 18.9 % Low 19-41 [facility] BUN/creatinine ratioOrdered By: Buzz Rainey on 04-26-2025 Urea nitrogen/Creatinine [Mass ratio] 27.3 mg/mg High 10-20 [facility] Basophil percentageOrdered B y: Buzz Rainey on 04-26-2025 Basophils/100 WBC (Bld) 0.4 % 0-1 [facility] Bilirubin directOrdered By: Buzz Rainey on 04-26-2025 Bilirubin.direct [Mass/Vol] 0.30 mg/dL 0.00-0.30 [facility] Bilirubin, totalOrdered By: Buzz Rainey on 04-26-2025 Bilirubin [Mass/Vol] 0.57 mg/dL 0.00-1.30 [facility] Carbon dioxide, total [Moles /volume] in Central venous bloodOrdered By: Buzz Rainey on 04-26-2025 CO2 [Moles/Vol] 24.6 mmol/L 21.0-32.0 [facility] Chloride assayOrdered By: Alexandra Rainey on 04-26-2025 Chloride [Moles/Vol] 104 mmol/L 98-108 [facility] Eosinophil percentageOrdered By: Buzz Rainey on 04-26-2025 Eosinophils/100 WBC (Bld) 3.4 % 0-5 [facility] Erythrocyte distribution wid th ratioOrdered By: yumikoperaltaestrella Rainey on 04-26-2025 Erythrocyte distribution width (RBC) [Ratio] 12.6 % 11.6-14.6 [facility] Erythrocyte distribution wid th standard deviationOrdered By: yumikoperaltaestrella Rainey on 04-26-2025 Erythrocyte distribution width (RBC) [Ratio] 45.2 fl High 35.1-43.9 [facility] Glomerular filtration rate ( GFR) estimation/1.73 sq m using serum, plasma, or whole bOrdered By: Buzz Rainey on 04-26-2025 GFR/1.73 sq M.predicted among non-blacks MDRD (S/P/Bld) [Vol rate/Area] 53 mL/min/{1.73_m2} Low >60 [facility] Comment on above: mL/min/1.73m2 CKD-EP I Creatinine Equation (2020) Hematocrit Auto (Bld) [Volum e fraction]Ordered By: Buzz Rainey on 04-26-2025 Hematocrit (Bld) [Volume fraction] 36.5 % Low 40-54 [facility] Hemoglobin A1c percentageOrd ered By: Buzz Rainey on 04-26-2025 HbA1c (Bld) [Mass fraction] 8.3 % High <5.7 [facility] Comment on above: Normal < 5.7 % Predi abetic 5.7 - 6.4 % Diabetic >or= 6.5 % Please note range changes. Hemoglobin measurementOrdere d By: Buzz Rainey on 04-26-2025 Hemoglobin (Bld) [Mass/Vol] 12.3 g/dL Low 13.0-16.5 [facility] Immature granulocytes/100 WB C Auto (Bld)Ordered By: Buzz Rainey on 04-26-2025 Immature granulocytes/100 WBC (Bld) 0.200 % 0.0-0.9 [facility] Comment on above: IG% - Immature Granu locytes (promyelocytes, myelocytes and metamyelocytes) > 1% indicates that a LEFT SHIFT is Present. Laboratory - Chemistry and C hemistry - challengeOrdered By: Buzz Rainey on 04-26-2025 AST [Catalytic activity/Vol] 30 U/L <38 [facility] MCV (mean corpuscular volume ) determinationOrdered By: Buzz Rainey on 04-26-2025 MCV (RBC) [Entitic vol] 98.4 fL High 80-94 [facility] Magnesium measurement (mass/ volume)Ordered By: Buzz Rainey on 04-26-2025 Magnesium (Unsp spec) [Mass/Vol] 2.0 mg/dL 1.5-2.2 [facility] Mean corpuscular hemoglobin (MCH) determinationOrdered By: Buzz Rainey on 04-26-2025 MCH (RBC) [Entitic mass] 33.2 pg High 27.0-32.0 [facility] Mean corpuscular hemoglobin concentration (MCHC) determinationOrdered By: yumikoperaltaestrella Rainey on 04-26-2025 MCHC (RBC) [Mass/Vol] 33.7 g/dL 32-36 [facility] Mean platelet volume determi nationOrdered By: Buzz Rainey on 04-26-2025 Platelet mean volume (Bld) [Entitic vol] 10.5 fL 6.2-12.0 [facility] Monocyte percentageOrdered B y: Buzz Rainey on 06-05-2025 Monocytes/100 WBC (Bld) 12.9 % High 0-10 [facility] Neutrophil percentageOrdered By: Buzz Rainey on 04-26-2025 Neutrophils/100 WBC (Bld) 64.2 % 47-70 [facility] Nucleated red blood cell per centageOrdered By: Buzz Rainey on 04-26-2025 Nucleated RBC/100 WBC (Bld) [Ratio] 0 % 0-5 [facility] Platelet countOrdered By: Alexandra Rainey on 04-26-2025 Platelets (Bld) [#/Vol] 163 10*3/uL 150-450 [facility] Potassium measurement (mass/ volume)Ordered By: Buzz Rainey on 04-26-2025 Potassium (Unsp spec) [Mass/Vol] 4.7 mmol/L 3.3-5.1 [facility] RBC Auto (Bld) [#/Vol]Ordere d By: Buzz Rainey on 04-26-2025 RBC (Bld) [#/Vol] 3.71 10*6/uL Low 4.6-6.2 [facility] Serum creatinine measurement (mass/volume)Ordered By: Buzz Rainey on 04-26-2025 Creatinine [Mass/Vol] 1.34 mg/dL High 0.70-1.20 [facility] Serum globulin measurementOr dered By: Buzz Rainey on 04-26-2025 Globulin (S) [Mass/Vol] 2.2 g/dL 2.2-4.2 [facility] Serum glucose measurement (m ass/volume)Ordered By: Buzz Rainey on 04-26-2025 Glucose [Mass/Vol] 147 mg/dL High 70-99 [facility] Serum or plasma alanine nix otransferase (ALT) measurementOrdered By: Buzz Rainey on 04-26-2025 ALT [Catalytic activity/Vol] 46 U/L <47 [facility] Serum or plasma albumin jesenia urement (mass/volume)Ordered By: Buzz Raieny on 04-26-2025 Albumin [Mass/Vol] 4.0 g/dL 3.4-4.8 [facility] Serum or plasma alkaline radha sphatase measurementOrdered By: Buzz Rainey on 04-26-2025 ALP [Catalytic activity/Vol] 57 U/L 40-129 [facility] Serum or plasma calcium jesenia urement (mass/volume)Ordered By: Buzz Rainey on 04-26-2025 Calcium [Mass/Vol] 9.0 mg/dL 7.6-11.0 [facility] Serum or plasma urea nitroge n measurement (mass/volume)Ordered By: Buzz Rainey on 04-26-2025 Urea nitrogen [Mass/Vol] 37 mg/dL High 4-19 [facility] Sodium levelOrdered By: Otilia baileyjovan Redd on 04-26-2025 Sodium [Moles/Vol] 138 mmol/L 133-145 [facility] Total proteinOrdered By: Franklin raoulestrella Rainey on 04-26-2025 Protein [Mass/Vol] 6.1 g/dL 5.9-8.4 [facility] White blood cell (WBC) count Ordered By: Buzz Rainey on 04-26-2025 WBC (Bld) [#/Vol] 4.7 10*3/uL 4.4-11.0 [facility] Absolute lymphocyte countOrd ered By: Buzz Rainey on 03-29-2025 Lymphocytes Auto (Unsp spec) [#/Vol] 0.83 10*3/uL 0.83-4.51 [facility] Absolute neutrophil countOrd ered By: Buzz Rainey on 03-29-2025 Neutrophils (Bld) [#/Vol] 2.7 10*3/uL 2.0-7.7 [facility] Anion gap in Serum or Plasma Ordered By: Buzz Rainey on 03-29-2025 Anion gap [Moles/Vol] 11 mmol/L 5-15 [facility] Automated lymphocyte count a s percentage of total leukocytesOrdered By: Buzz Rainey on 03-29-2025 Lymphocytes/100 WBC Auto (Unsp spec) 19.5 % 19-41 [facility] BUN/creatinine ratioOrdered By: Buzz Rainey on 03-29-2025 Urea nitrogen/Creatinine [Mass ratio] 30.3 mg/mg High 10-20 [facility] Basophil percentageOrdered B y: Buzz Rainey on 03-29-2025 Basophils/100 WBC (Bld) 0.7 % 0-1 [facility] Carbon dioxide, total [Moles /volume] in Central venous bloodOrdered By: Buzz Brainlavelle on 03-29-2025 CO2 [Moles/Vol] 22.7 mmol/L 21.0-32.0 [facility] Chloride assayOrdered By: Alexandra tamanna Brainlavelle on 03-29-2025 Chloride [Moles/Vol] 103 mmol/L 98-108 [facility] Eosinophil percentageOrdered By: Buzz Rainey on 03-29-2025 Eosinophils/100 WBC (Bld) 4.0 % 0-5 [facility] Erythrocyte distribution wid th ratioOrdered By: yumikoperaltaestrella Brainlavelle on 03-29-2025 Erythrocyte distribution width (RBC) [Ratio] 12.0 % 11.6-14.6 [facility] Erythrocyte distribution wid th standard deviationOrdered By: yumikoperaltaestrella Rainey on 03-29-2025 Erythrocyte distribution width (RBC) [Ratio] 43.5 fl 35.1-43.9 [facility] Glomerular filtration rate ( GFR) estimation/1.73 sq m using serum, plasma, or whole bOrdered By: Buzz Rainey on 03-29-2025 GFR/1.73 sq M.predicted among non-blacks MDRD (S/P/Bld) [Vol rate/Area] 57 mL/min/{1.73_m2} Low >60 [facility] Comment on above: mL/min/1.73m2 CKD-EP I Creatinine Equation (2020) Hematocrit Auto (Bld) [Volum e fraction]Ordered By: Alexandrayumikohueyestrella De La Pazmklana on 03-29-2025 Hematocrit (Bld) [Volume fraction] 35.5 % Low 40-54 [facility] Hemoglobin measurementOrdere d By: Alexandrayumikoarthur Brainmklana on 03-29-2025 Hemoglobin (Bld) [Mass/Vol] 12.1 g/dL Low 13.0-16.5 [facility] Immature granulocytes/100 WB C Auto (Bld)Ordered By: Buzz Rainey on 03-29-2025 Immature granulocytes/100 WBC (Bld) 0.000 % 0.0-0.9 [facility] Comment on above: IG% - Immature Granu locytes (promyelocytes, myelocytes and metamyelocytes) > 1% indicates that a LEFT SHIFT is Present. MCV (mean corpuscular volume ) determinationOrdered By: Buzz Rainey on 03-29-2025 MCV (RBC) [Entitic vol] 98.3 fL High 80-94 [facility] Mean corpuscular hemoglobin (MCH) determinationOrdered By: Buzz Rainey on 03-29-2025 MCH (RBC) [Entitic mass] 33.5 pg High 27.0-32.0 [facility] Mean corpuscular hemoglobin concentration (MCHC) determinationOrdered By: Buzz Rainey on 03-29-2025 MCHC (RBC) [Mass/Vol] 34.1 g/dL 32-36 [facility] Mean platelet volume determi nationOrdered By: Buzz Rainey on 03-29-2025 Platelet mean volume (Bld) [Entitic vol] 10.4 fL 6.2-12.0 [facility] Monocyte percentageOrdered B y: Buzz Rainey on 03-29-2025 Monocytes/100 WBC (Bld) 12.2 % High 0-10 [facility] Neutrophil percentageOrdered By: Buzz Rainey on 03-29-2025 Neutrophils/100 WBC (Bld) 63.6 % 47-70 [facility] Nucleated red blood cell per centageOrdered By: Buzz Rainey on 03-29-2025 Nucleated RBC/100 WBC (Bld) [Ratio] 0 % 0-5 [facility] Platelet countOrdered By: Alexandra Rainey on 03-29-2025 Platelets (Bld) [#/Vol] 182 10*3/uL 150-450 [facility] Potassium measurement (mass/ volume)Ordered By: Buzz Rainey on 03-29-2025 Potassium (Unsp spec) [Mass/Vol] 4.8 mmol/L 3.3-5.1 [facility] RBC Auto (Bld) [#/Vol]Ordere d By: Buzz Rainey on 03-29-2025 RBC (Bld) [#/Vol] 3.61 10*6/uL Low 4.6-6.2 [facility] Serum creatinine measurement (mass/volume)Ordered By: Alexandrayumikohueyestrella De La Pazmklana on 03-29-2025 Creatinine [Mass/Vol] 1.25 mg/dL High 0.70-1.20 [facility] Serum glucose measurement (m ass/volume)Ordered By: Alexandratamanna De La Pazmklana on 03-29-2025 Glucose [Mass/Vol] 269 mg/dL High 70-99 [facility] Serum or plasma calcium jesenia urement (mass/volume)Ordered By: Alexandrayumikoperaltaestrella De La Pazmkalna on 03-29-2025 Calcium [Mass/Vol] 9.0 mg/dL 7.6-11.0 [facility] Serum or plasma urea nitroge n measurement (mass/volume)Ordered By: Alexandratamanna De La Pazmklana on 03-29-2025 Urea nitrogen [Mass/Vol] 38 mg/dL High 4-19 [facility] Sodium levelOrdered By: Otilia gibson Brainmklana on 03-29-2025 Sodium [Moles/Vol] 136 mmol/L 133-145 [facility] White blood cell (WBC) count Ordered By: Buzz De La Pazmklana on 03-29-2025 WBC (Bld) [#/Vol] 4.3 10*3/uL Low 4.4-11.0 [facility] CNOVon 2025 CNOV Office Visit (CARDWS ) FLEX KLINE ([id number]) 1940 Ar[place] Date Time Provider Department 03/05/25 11:00 AM HARJINDER JONES During your visit today, we recorded the following information about you: Pulse Respiration Blood pressure Weight 82/minute 16/minute 138/60 81.6 kg Height 1.765 m Harjinder Jones MD 2025 12:16 PM Signed Harjinder Jones MD Interventional Cardiology [address] [place] [address] [phone] Chief Complaint Patient presents with: Follow Up: 6 week follow up, c/o chest pain HISTORY OF PRESENT ILLNESS: Mr. Kline is a 85 year old male seen in my office today for follow-up patient had a prior history of severe k[place]isp[place] coronary artery disease with prior history of [...] 30 tablet 3 WALKER ROLLATOR SEAT WITH 6" WHEELS - RED Use as directed. 1 [...] meals. FOL (more content not included)... [facility]ARDPOB) FLEX KLINE ([id number]) 1940 Date Time Provider Department 03/02/25 10:20 AM KWAN ESTRELLA AGCARDPOB During your visit today, we recorded the following information about you: Pulse Blood pressure Weight 69/minute 113/63 81.6 kg Kwan Estrella MD 03/02/2025 11:18 AM Signed [facility] SECTION OF CARDIAC PACING and ELECTROPHYSIOLOGY OUTPATIENT VISIT DATE March 02, 2025 OUTPATIENT VISIT TYPE NEW PRIMARY CARE PHYSICIAN: Vincent Tello [address] [place] [address] REFERRING PHYSICIAN: Harjinder Jones [address] [facility], [address] [facility] [address] chief complaint on file. HISTORY OF PRESENT [...] currently a resident at [facility]. Had a recent UTI in 10/2024, still [...] fibrillation ECG 11/29/23 - SR 77 bpm MT 210 QRS 102 QT/c 364 411 PVC [...] rare (<1.0%). Isolated VEs were rare (<1.0%, 14760), VE Couplets were rare (<1.0%, 63), and [...] (more content not included)... Normal [facility] ECG B/O W INTERP (MED OFFICE )on 03-02-2025 .Sinus rhythm 68 bpm MT 264ms First degree AVB QRS 96ms QT/c 398/423ms nl Qrs morphology and early repol change in 2.3.aVF [facility] Absolute lymphocyte countOrd ered By: Buzz Rainey on 03-01-2025 Lymphocytes Auto (Unsp spec) [#/Vol] 0.88 10*3/uL 0.83-4.51 [facility] Absolute neutrophil countOrd ered By: Buzz Rainey on 03-01-2025 Neutrophils (Bld) [#/Vol] 4.2 10*3/uL 2.0-7.7 [facility] Anion gap in Serum or Plasma Ordered By: Buzz Rainey on 03-01-2025 Anion gap [Moles/Vol] 13 mmol/L 5-15 [facility] Automated lymphocyte count a s percentage of total leukocytesOrdered By: Buzz Rainey on 03-01-2025 Lymphocytes/100 WBC Auto (Unsp spec) 14.9 % Low 19-41 [facility] BUN/creatinine ratioOrdered By: Buzz Rainey on 03-01-2025 Urea nitrogen/Creatinine [Mass ratio] 37.1 mg/mg High 10-20 [facility] Basophil percentageOrdered B y: Buzz Rainey on 03-01-2025 Basophils/100 WBC (Bld) 0.7 % 0-1 [facility] Carbon dioxide, total [Moles /volume] in Central venous bloodOrdered By: Buzz Rainey on 03-01-2025 CO2 [Moles/Vol] 21.5 mmol/L 21.0-32.0 [facility] Chloride assayOrdered By: Alexandra Raniey on 03-01-2025 Chloride [Moles/Vol] 104 mmol/L 98-108 [facility] Eosinophil percentageOrdered By: tamanna Rainey on 03-01-2025 Eosinophils/100 WBC (Bld) 3.7 % 0-5 [facility] Erythrocyte distribution wid th ratioOrdered By: yumikoperaltaestrella Rainey on 03-01-2025 Erythrocyte distribution width (RBC) [Ratio] 11.9 % 11.6-14.6 [facility] Erythrocyte distribution wid th standard deviationOrdered By: yumikoperaltaestrella Rainey on 03-01-2025 Erythrocyte distribution width (RBC) [Ratio] 43.6 fl 35.1-43.9 [facility] Glomerular filtration rate ( GFR) estimation/1.73 sq m using serum, plasma, or whole bOrdered By: Buzz Rainey on 03-01-2025 GFR/1.73 sq M.predicted among non-blacks MDRD (S/P/Bld) [Vol rate/Area] 61 mL/min/{1.73_m2} >60 [facility] Comment on above: mL/min/1.73m2 CKD-EP I Creatinine Equation (2020) Hematocrit Auto (Bld) [Volum e fraction]Ordered By: Buzz Rainey on 03-01-2025 Hematocrit (Bld) [Volume fraction] 40.7 % 40-54 [facility] Hemoglobin measurementOrdere d By: Buzz Rainey on 03-01-2025 Hemoglobin (Bld) [Mass/Vol] 13.9 g/dL 13.0-16.5 [facility] Immature granulocytes/100 WB C Auto (Bld)Ordered By: Buzz Rainey on 03-01-2025 Immature granulocytes/100 WBC (Bld) 0.200 % 0.0-0.9 [facility] Comment on above: IG% - Immature Granu locytes (promyelocytes, myelocytes and metamyelocytes) > 1% indicates that a LEFT SHIFT is Present. MCV (mean corpuscular volume ) determinationOrdered By: Buzz Rainey on 03-01-2025 MCV (RBC) [Entitic vol] 99.5 fL High 80-94 [facility] Mean corpuscular hemoglobin (MCH) determinationOrdered By: Buzz Rainey on 03-01-2025 MCH (RBC) [Entitic mass] 34.0 pg High 27.0-32.0 [facility] Mean corpuscular hemoglobin concentration (MCHC) determinationOrdered By: Buzz Rainey on 03-01-2025 MCHC (RBC) [Mass/Vol] 34.2 g/dL 32-36 [facility] Mean platelet volume determi nationOrdered By: Buzz Rainey on 03-01-2025 Platelet mean volume (Bld) [Entitic vol] 10.4 fL 6.2-12.0 [facility] Monocyte percentageOrdered B y: Buzz Rainey on 03-01-2025 Monocytes/100 WBC (Bld) 8.5 % 0-10 [facility] Neutrophil percentageOrdered By: Buzz Rainey on 03-01-2025 Neutrophils/100 WBC (Bld) 72.0 % High 47-70 [facility] Nucleated red blood cell per centageOrdered By: Buzz Rainey on 03-01-2025 Nucleated RBC/100 WBC (Bld) [Ratio] 0 % 0-5 [facility] Platelet countOrdered By: Alexandra Rainey on 03-01-2025 Platelets (Bld) [#/Vol] 213 10*3/uL 150-450 [facility] Potassium measurement (mass/ volume)Ordered By: Buzz Rainey on 03-01-2025 Potassium (Unsp spec) [Mass/Vol] 4.5 mmol/L 3.3-5.1 [facility] RBC Auto (Bld) [#/Vol]Ordere d By: Buzz Rainey on 03-01-2025 RBC (Bld) [#/Vol] 4.09 10*6/uL Low 4.6-6.2 [facility] Serum creatinine measurement (mass/volume)Ordered By: Buzz Rainey on 03-01-2025 Creatinine [Mass/Vol] 1.19 mg/dL 0.70-1.20 [facility] Serum glucose measurement (m ass/volume)Ordered By: Buzz Rainey on 03-01-2025 Glucose [Mass/Vol] 152 mg/dL High 70-99 [facility] Serum or plasma calcium jesenia urement (mass/volume)Ordered By: Buzz Rainey on 03-01-2025 Calcium [Mass/Vol] 9.5 mg/dL 7.6-11.0 [facility] Serum or plasma urea nitroge n measurement (mass/volume)Ordered By: Buzz Rainey on 03-01-2025 Urea nitrogen [Mass/Vol] 44 mg/dL High 4-19 [facility] Sodium levelOrdered By: Otilia Rainey on 03-01-2025 Sodium [Moles/Vol] 138 mmol/L 133-145 [facility] White blood cell (WBC) count Ordered By: Buzz Rainey on 03-01-2025 WBC (Bld) [#/Vol] 5.9 10*3/uL 4.4-11.0 [facility] Bilirubin Test strip Ql (U)O rdered By: Buzz Rainey on 02-28-2025 Bilirubin Ql (U) Negative Negative [facility] Ketones Test strip Ql (U)Ord ered By: Buzz Rainey on 02-28-2025 Ketones Ql (U) Negative Negative [facility] Nitrite Test strip Ql (U)Ord ered By: Buzz Rainey on 02-28-2025 Nitrite Ql (U) Negative Negative [facility] Protein Test strip Ql (U)Ord ered By: Buzz Rainey on 02-28-2025 Protein Ql (U) 15 mg/dl High Negative [facility] Urine clarityOrdered By: Franklin Rainey on 02-28-2025 Clarity (U) Clear Clear [facility] Urine color determinationOrd ered By: Buzz Rainey on 02-28-2025 Color (U) Straw Yellow [facility] Urine cultureOrdered By: Franklin Rainey on 02-28-2025 Bacteria identified Cx Nom (U) Positive Abnormal [facility] Urine glucose detectionOrder ed By: Buzz Rainey on 02-28-2025 Glucose Ql (U) 1000 mg/dl High Normal [facility] Urine leukocyte esterase det ection by dipstickOrdered By: Buzz Rainey on 02-28-2025 Leukocyte esterase Test strip Ql (U) 25 /ul High Negative [facility] Urine pHOrdered By: Mallorie Rainey on 02-28-2025 pH (U) 6.0 [pH] 5.0 - 8.0 [facility] Urine specific gravity measu rementOrdered By: Buzz Rainey on 02-28-2025 Specific gravity (U) [Rel density] 1.020 1.002-1.030 [facility] Urine urobilinogen measureme ntOrdered By: Buzz Rainey on 02-28-2025 Urobilinogen Ql (U) Normal mg/dl Normal [facility] Endocrinology Visit Reporton 02-27-2025 Endocrinology Visit Report [facility] Endocrinology Group [facility] [address] [place] [address] OFFICE VISIT Date of Service: 02/27/25 MR#: [id number] Acct: [id number] Name: FLEX KLINE Rep #: [id number] : 1940 Provider: Arina Renee Age/Sex: 84/M Location: [facility] [place] Status: Signed Intake Vital Signs 11/30/24 08:36 02/27/25 10:56 Height 5 ft 11 in 5 ft 11 in BP 168/78 H Blood Pressure Location Lt brachial Position Sitting Pulse 62 Pulse Source Monitor Pulse Oximetry (%) 96 Oxygen Delivery Method room air Intake Visit Reasons: 23 M FU RS 10/26 CX 12/10 Chief Complaint: Diabetes Is patient in pain?: [...] to secondary diabetes 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 Normal [facility] Absolute lymphocyte countOrd ered By: Buzz Rainey on 01-31-2025 Lymphocytes Auto (Unsp spec) [#/Vol] 0.83 10*3/uL 0.83-4.51 [facility] Absolute neutrophil countOrd ered By: Buzz Rainey on 01-31-2025 Neutrophils (Bld) [#/Vol] 3.3 10*3/uL 2.0-7.7 [facility] Anion gap in Serum or Plasma Ordered By: Buzz Rainey on 01-31-2025 Anion gap [Moles/Vol] 14 mmol/L 5-15 [facility] Automated lymphocyte count a s percentage of total leukocytesOrdered By: Buzz Rainey on 01-31-2025 Lymphocytes/100 WBC Auto (Unsp spec) 16.0 % Low 19-41 [facility] BUN/creatinine ratioOrdered By: Buzz Rainey on 01-31-2025 Urea nitrogen/Creatinine [Mass ratio] 28.0 mg/mg High 10-20 [facility] Basophil percentageOrdered B y: Buzz Rianey on 01-31-2025 Basophils/100 WBC (Bld) 0.4 % 0-1 [facility] Bilirubin directOrdered By: Buzz Rainey on 01-31-2025 Bilirubin.direct [Mass/Vol] 0.22 mg/dL 0.00-0.30 [facility] Bilirubin, totalOrdered By: Buzz Rainey on 01-31-2025 Bilirubin [Mass/Vol] 0.47 mg/dL 0.00-1.30 [facility] Carbon dioxide, total [Moles /volume] in Central venous bloodOrdered By: Buzz Rainey on 01-31-2025 CO2 [Moles/Vol] 21.6 mmol/L 21.0-32.0 [facility] Chloride assayOrdered By: Alexandra Rainey on 01-31-2025 Chloride [Moles/Vol] 101 mmol/L 98-108 [facility] Eosinophil percentageOrdered By: Buzz Rainey on 01-31-2025 Eosinophils/100 WBC (Bld) 6.2 % High 0-5 [facility] Erythrocyte distribution wid th (RBC) [Ratio]Ordered By: Buzz Rainey on 01-31-2025 Erythrocyte distribution width (RBC) [Entitic vol] 45.0 fL High 35.1-43.9 [facility] Erythrocyte distribution wid th ratioOrdered By: Buzz Rainey on 01-31-2025 Erythrocyte distribution width (RBC) [Ratio] 12.1 % 11.6-14.6 [facility] Erythrocyte distribution wid th standard deviationOrdered By: Buzz Rainey on 01-31-2025 Erythrocyte distribution width (RBC) [Ratio] 45.0 fl High 35.1-43.9 [facility] GFR/1.73 sq M.predicted [place] g non-blacks MDRD (S/P/Bld) [Vol rate/Area]Ordered By: Buzz Rainey on 01-31-2025 Estimated GFR (MDRD) Non-Af Amer 49 Low >60 [facility] Comment on above: mL/min/1.73m2 CKD-EP I Creatinine Equation (2020) Glomerular filtration rate ( GFR) estimation/1.73 sq m using serum, plasma, or whole bOrdered By: Buzz Rainey on 01-31-2025 GFR/1.73 sq M.predicted among non-blacks MDRD (S/P/Bld) [Vol rate/Area] 49 mL/min/{1.73_m2} Low >60 [facility] Comment on above: mL/min/1.73m2 CKD-EP I Creatinine Equation (2020) Hematocrit Auto (Bld) [Volum e fraction]Ordered By: Buzz Rainey on 01-31-2025 Hematocrit (Bld) [Volume fraction] 39.9 % Low 40-54 [facility] Hemoglobin A1c percentageOrd ered By: Buzz Rainey on 01-31-2025 HbA1c (Bld) [Mass fraction] 7.9 % >5.7 [facility] Hemoglobin measurementOrdere d By: Buzz Rainey on 01-31-2025 Hemoglobin (Bld) [Mass/Vol] 13.8 g/dL 13.0-16.5 [facility] Immature granulocytes/100 WB C Auto (Bld)Ordered By: Buzz Rainey on 01-31-2025 Immature granulocytes/100 WBC (Bld) 0.200 % 0.0-0.9 [facility] Comment on above: IG% - Immature Granu locytes (promyelocytes, myelocytes and metamyelocytes) > 1% indicates that a LEFT SHIFT is Present. Laboratory - Chemistry and C hemistry - challengeOrdered By: Buzz Rainey on 01-31-2025 AST [Catalytic activity/Vol] 32 U/L <38 [facility] Lymphocytes Auto (Unsp spec) [#/Vol]Ordered By: Buzz Rainey on 01-31-2025 Lymphocytes (Bld) [#/Vol] 0.83 10*3/uL 0.83-4.51 [facility] Lymphocytes/100 WBC Auto (Un sp spec)Ordered By: Buzz Rainey on 01-31-2025 Lymphocytes/100 WBC (Bld) 16.0 % Low 19-41 [facility] MCV (mean corpuscular volume ) determinationOrdered By: Buzz Rainey on 01-31-2025 MCV (RBC) [Entitic vol] 99.8 fL High 80-94 [facility] Magnesium (Unsp spec) [Mass/ Vol]Ordered By: Buzz Rainey on 01-31-2025 Magnesium [Mass/Vol] 2.2 mg/dL 1.5-2.2 [facility] Magnesium measurement (mass/ volume)Ordered By: Buzz Rainey on 01-31-2025 Magnesium (Unsp spec) [Mass/Vol] 2.2 mg/dL 1.5-2.2 [facility] Mean corpuscular hemoglobin (MCH) determinationOrdered By: Buzz Rainey on 01-31-2025 MCH (RBC) [Entitic mass] 34.5 pg High 27.0-32.0 [facility] Mean corpuscular hemoglobin concentration (MCHC) determinationOrdered By: Buzz Rainey on 01-31-2025 MCHC (RBC) [Mass/Vol] 34.6 g/dL 32-36 [facility] Mean platelet volume determi nationOrdered By: Buzz Monreallana on 01-31-2025 Platelet mean volume (Bld) [Entitic vol] 10.6 fL 6.2-12.0 [facility] Monocyte percentageOrdered B y: Buzz Rainey on 01-31-2025 Monocytes/100 WBC (Bld) 12.7 % High 0-10 [facility] Neutrophil percentageOrdered By: Eftamanna Monreallana on 01-31-2025 Neutrophils/100 WBC (Bld) 64.5 % 47-70 [facility] Nucleated red blood cell per centageOrdered By: Buzz Brainlavelle on 01-31-2025 Nucleated RBC/100 WBC (Bld) [Ratio] 0 % 0-5 [facility] Platelet countOrdered By: Alexandra tamanna Brainmklana on 01-31-2025 Platelets (Bld) [#/Vol] 218 10*3/uL 150-450 [facility] Potassium (Unsp spec) [Mass/ Vol]Ordered By: Alexandrayumikoarthur Brainmklana on 01-31-2025 Potassium [Moles/Vol] 5.3 mmol/L High 3.3-5.1 [facility] Potassium measurement (mass/ volume)Ordered By: Otiliaarthur Brainmklana on 01-31-2025 Potassium (Unsp spec) [Mass/Vol] 5.3 mmol/L High 3.3-5.1 [facility] RBC Auto (Bld) [#/Vol]Ordere d By: Buzz Monreallana on 01-31-2025 RBC (Bld) [#/Vol] 4.00 10*6/uL Low 4.6-6.2 [facility] Serum creatinine measurement (mass/volume)Ordered By: Alexandrayumikohueyestrella De La Pazmklana on 01-31-2025 Creatinine [Mass/Vol] 1.43 mg/dL High 0.70-1.20 [facility] Serum globulin measurementOr dered By: Buzz De La Pazmklana on 01-31-2025 Globulin (S) [Mass/Vol] 2.8 g/dL 2.2-4.2 [facility] Serum glucose measurement (m ass/volume)Ordered By: Buzz Rainey on 01-31-2025 Glucose [Mass/Vol] 265 mg/dL High 70-99 [facility] Serum or plasma alanine nix otransferase (ALT) measurementOrdered By: Buzz Rainey on 01-31-2025 ALT [Catalytic activity/Vol] 35 U/L <47 [facility] Serum or plasma albumin jesenia urement (mass/volume)Ordered By: Buzz Rainey on 01-31-2025 Albumin [Mass/Vol] 4.3 g/dL 3.4-4.8 [facility] Serum or plasma alkaline radha sphatase measurementOrdered By: Buzz Rainey on 01-31-2025 ALP [Catalytic activity/Vol] 83 U/L 40-129 [facility] Serum or plasma calcium jesenia urement (mass/volume)Ordered By: Buzz Rainey on 01-31-2025 Calcium [Mass/Vol] 9.3 mg/dL 7.6-11.0 [facility] Serum or plasma urea nitroge n measurement (mass/volume)Ordered By: Buzz Rainey on 01-31-2025 Urea nitrogen [Mass/Vol] 40 mg/dL High 4-19 [facility] Sodium levelOrdered By: Otilia Rainey on 01-31-2025 Sodium [Moles/Vol] 137 mmol/L 133-145 [facility] Total proteinOrdered By: Franklin Rainey on 01-31-2025 Protein [Mass/Vol] 7.1 g/dL 5.9-8.4 [facility] Vitamin D, 25-hydroxyOrdered By: Buzz Rainey on 01-31-2025 Vitamin D 25-Hydroxy 38.8 ng/mL 30-100 [facility] Comment on above: Vitamin D StatusDefi ciency: <20 ng/mL (50nmol/L)Insufficiency: 20-30 ng/mL (50-75 nmol/L)Sufficiency: 30-100 ng/mL (75-250 nmol/L)Toxicity: >100 ng/mL (>250 nmol/L) White blood cell (WBC) count Ordered By: Buzz Rainey on 01-31-2025 WBC (Bld) [#/Vol] 5.2 10*3/uL 4.4-11.0 [facility] CBC panel Auto (Bld)on 01-22 Erythrocyte distribution width (RBC) [Ratio] 12.4 % 11.5 - 15.0 % [facility] Hematocrit (Bld) [Volume fraction] 37.7 % Low 39.0 - 51.0 % [facility] Hemoglobin (Bld) [Mass/Vol] 12.8 g/dL Low 13.0 - 17.0 g/dL [facility] Interpretation and review of laboratory results Abnormal [facility] MCH (RBC) [Entitic mass] 33.3 pg 26.0 - 34.0 pg [facility] MCHC (RBC) [Mass/Vol] 34 g/dL 30.5 - 36.0 g/dL [facility] MCV (RBC) [Entitic vol] 98.2 fL 80.0 - 100.0 fL [facility] Nucleated RBC (Bld) [#/Vol] NINF [facility] Platelet mean volume (Bld) [Entitic vol] 9.4 fL 9.0 - 12.7 fL [facility] Platelets (Bld) [#/Vol] 216 10*3/uL [facility] RBC (Bld) [#/Vol] 3.84 10*6/uL Low 4.20 - 6.0 0 m/uL [facility] WBC (Bld) [#/Vol] 5.09 10*3/uL [facility] Erythrocyte distribution width (RBC) [Ratio] 12.4 % Normal 11.5-15.0 [facility] Comment on above: Order Comment: Krystyna funk Type: BLOOD SPECIMEN Ordering Facility: [facility] Address: [address] [place] [address] Performed By: #### 3 3762-6, 3016-3 #### [facility] CLIA [id number] [address] [place] [address] [place] Hematocrit (Bld) [Volume fraction] 37.7 % Low 39.0-51.0 [facility] Comment on above: Order Comment: Krystyna funk Type: BLOOD SPECIMEN Ordering Facility: [facility] Address: [address] [place] [address] Performed By: #### 3 3762-6, 3016-3 #### [facility] CLIA [id number] [address] Hemoglobin (Bld) [Mass/Vol] 12.8 g/dL Low 13.0-17.0 [facility] Comment on above: Order Comment: Speci men Type: BLOOD SPECIMEN Ordering Facility: [facility] Address: [address] [place] [address] Performed By: #### 3 3762-6, 6-3 #### [facility] CLIA [id number] [address] MCH (RBC) [Entitic mass] 33.3 pg Normal 26.0-34.0 [facility] Comment on above: Order Comment: Speci men Type: BLOOD SPECIMEN Ordering Facility: [facility] Address: [address] [place] [address] Performed By: #### 3 376-6, 6-3 #### [employer] [facility] CLIA [id number] [address] MCHC (RBC) [Mass/Vol] 34.0 g/dL Normal 30.5-36.0 [facility] Comment on above: Order Comment: Speci men Type: BLOOD SPECIMEN Ordering Facility: [facility] Address: [address] [place] [address] Performed By: #### 3 3762-6, 3016-3 #### [facility] CLIA [id number] [address] MCV (RBC) [Entitic vol] 98.2 fL Normal 80.0-100.0 [facility] Comment on above: Order Comment: Speci men Type: BLOOD SPECIMEN Ordering Facility: [facility] Address: [address] [place] [address] Performed By: #### 3 3762-6, 3016-3 #### [facility] CLIA [id number] [address] Nucleated RBC (Bld) [#/Vol] 10*3/uL Normal <0.01 [facility] Comment on above: Order Comment: Speci men Type: BLOOD SPECIMEN Ordering Facility: [facility] Address: [address] [place] [address] Performed By: #### 3 3762-6, 3016-3 #### [facility] CLIA [id number] [address] [place] Platelet mean volume (Bld) [Entitic vol] 9.4 fL Normal 9.0-12.7 [facility] Comment on above: Order Comment: Speci men Type: BLOOD SPECIMEN Ordering Facility: [facility] Address: [address] [place] [address] Performed By: #### 3 3762-6, 3016-3 #### [facility] CLIA [id number] [address] Platelets (Bld) [#/Vol] 216 10*3/uL Normal 150-400 [facility] Comment on above: Order Comment: Speci men Type: BLOOD SPECIMEN Ordering Facility: [facility] Address: [address] [place] [address] Performed By: #### 3 3762-6, 3016-3 #### [facility] CLIA [id number] [address] [place] RBC (Bld) [#/Vol] 3.84 10*6/uL Low 4.20-6.00 [facility] Comment on above: Order Comment: Speci men Type: BLOOD SPECIMEN Ordering Facility: [facility] Address: [address] [place] [address] Performed By: #### 3 3762-6, 3016-3 #### [facility] CLIA [id number] [address] [place] WBC (Bld) [#/Vol] 5.09 10*3/uL Normal 3.70-11.00 [facility] Comment on above: Order Comment: Speci men Type: BLOOD SPECIMEN Ordering Facility: [facility] Address: [address] [place] [id number] Performed By: #### 3 3762-6, 3016-3 #### [facility] [id number] [address] OF [facility] CNOVon 01-22-2025 CNOV Office Visit (CARDWS ) FLEX KLINE ([id number]) 1940 M Date Time Provider Department 01/22/25 1:40 PM HARJINDER JONES During your visit today, we recorded the following information about you: Pulse Respiration Blood pressure Weight 91/minute 14/minute 156/70 79.8 kg Height 1.765 m Harjinder Jones MD 01/22/2025 2:39 PM Signed Harjinder Jones MD Interventional Cardiology [address] [place] [address] [phone] Chief Complaint Patient presents with: Follow Up: [...] (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 1 [...] (more content not included)... Normal [facility] Comprehensive metabolic 2000 panelOrdered By: Jasmina Young on 01-22-2025 Albumin [Mass/Vol] 4.1 g/dL 3.9 - 4.9 g/dL [facility] ALP [Catalytic activity/Vol] 76 U/L 38 - 113 U/L [facility] ALT [Catalytic activity/Vol] 20 U/L 10 - 54 U/L [facility] Anion gap [Moles/Vol] 9 mmol/L 8 - 15 mmol/L [facility] AST [Catalytic activity/Vol] 19 U/L 14 - 40 U/L [facility] Bilirubin [Mass/Vol] 0.6 mg/dL 0.2 - 1 .3 mg/dL [facility] Calcium [Mass/Vol] 9.3 mg/dL 8.5 - 10. 2 mg/dL [facility] Chloride [Moles/Vol] 103 mmol/L 98 - 10 7 mmol/L [facility] CO2 [Moles/Vol] 27 mmol/L 22 - 30 mmol/L [facility] Creatinine [Mass/Vol] 1.32 mg/dL High 0.73 - 1.22 mg/dL [facility] GFR/1.73 sq M.predicted among non-blacks MDRD (S/P/Bld) [Vol rate/Area] 54 mL/min/{1.73_m2} Low - PINF [facility] Comment on above: Estimated Glomerular Filtration [...] 171 mg/dL High 74 - 99 mg/dL [facility] Comment on above: The [place] Diabete s Association (ADA) provides guidance for [...] Standards of Medical Care in Diabetes 2016, [place] Diabetes Association. Diabetes Care. 2016.39(Suppl 1). Interpretation and review of laboratory results Abnormal [facility] Potassium [Moles/Vol] 5.1 mmol/L 3.7 - 5.1 mmol/L [facility] Protein [Mass/Vol] 6.7 g/dL 6.3 - 8.0 g/dL [facility] Sodium [Moles/Vol] 139 mmol/L 136 - 144 mmol/L [facility] Urea nitrogen [Mass/Vol] 30 mg/dL High 9 - 24 mg/dL [facility] Comprehensive metabolic 2000 panelon 01-22-2025 Albumin [Mass/Vol] 4.1 g/dL Normal 3.9-4.9 [facility] Comment on above: Order Comment: Krystyna funk Type: BLOOD SPECIMEN Ordering Facility: [facility] Address: [facility] [place] [address] Performed By: #### 2 4323-8 #### [id number] [address] [place] [address] [place] ALP [Catalytic activity/Vol] 76 U/L Normal 38-113 [facility] Comment on above: Order Comment: Speci men Type: BLOOD SPECIMEN Ordering Facility: [facility] Address: [address] [place] [address] Performed By: #### 2 4323-8 #### [facility] CLIA [id number] [address] [place] [address] [place] ALT [Catalytic activity/Vol] 20 U/L Normal 10-54 [facility] Comment on above: Order Comment: Speci men Type: BLOOD SPECIMEN Ordering Facility: [facility] Address: [address] [place] [address] Performed By: #### 2 4323-8 #### [facility] CLIA [id number] [address] [place] [address] [place] Anion gap [Moles/Vol] 9 mmol/L Normal 8-15 [facility] Comment on above: Order Comment: Speci men Type: BLOOD SPECIMEN Ordering Facility: [facility] Address: [address] [place] [address] Performed By: #### 2 4323-8 #### [facility] CLIA [id number] [address] [place] [address] [place] AST [Catalytic activity/Vol] 19 U/L Normal 14-40 [facility] Comment on above: Order Comment: Speci men Type: BLOOD SPECIMEN Ordering Facility: [facility] Address: [address] [place] [address] Performed By: #### 2 4323-8 #### [facility] CLIA [id number] [address] [place] [address] [place] Bilirubin [Mass/Vol] 0.6 mg/dL Normal 0.2-1.3 [facility] Comment on above: Order Comment: Speci men Type: BLOOD SPECIMEN Ordering Facility: [facility] Address: [address] [place] [address] Performed By: #### 2 4323-8 #### [facility] CLIA [id number] [address] [place] [address] [place] Calcium [Mass/Vol] 9.3 mg/dL Normal 8.5-10.2 [facility] Comment on above: Order Comment: Speci men Type: BLOOD SPECIMEN Ordering Facility: [facility] Address: [address] [place] [address] Performed By: #### 2 4323-8 #### [facility] CLIA [id number] [address] [place] [address] [place] Chloride [Moles/Vol] 103 mmol/L Normal 98-107 [facility] Comment on above: Order Comment: Speci men Type: BLOOD SPECIMEN Ordering Facility: [facility] Address: [address] [place] [address] Performed By: #### 2 4323-8 #### [facility] CLIA [id number] [address] [place] [address] [place] CO2 [Moles/Vol] 27 mmol/L Normal 22-30 [facility] Comment on above: Order Comment: Speci men Type: BLOOD SPECIMEN Ordering Facility: [facility] Address: [address] [place] [address] Performed By: #### 2 4323-8 #### [facility] CLIA [id number] [address] [place] [address] [place] Creatinine [Mass/Vol] 1.32 mg/dL High 0.73-1.22 [facility] Comment on above: Order Comment: Speci men Type: BLOOD SPECIMEN Ordering Facility: [facility] Address: [address] [place] [address] Performed By: #### 2 4323-8 #### [facility] CLIA [id number] [address] [place] [address] [place] Creatinine and Glomerular filtration rate.predicted panel (S/P/Bld) 54 mL/min/1.73m??? Low >=60 [facility] Comment on above: Order Comment: Krystyna funk Type: BLOOD SPECIMEN Ordering Facility: [facility] Address: [address] [place] [id number] Result Comment: Beatrice mated Glomerular Filtration Rate [...] GFR. Performed By: #### 2 4323-8 #### [facility] [id number] [address] [place] [address] [place] Glucose [Mass/Vol] 171 mg/dL High 74-99 [facility] Comment on above: Order Comment: Krystyna funk Type: BLOOD SPECIMEN Ordering Facility: [facility] Address: [address] [place] [address] Result Comment: The [place] Diabetes Association (ADA) provides guidance for cutoff [...] Standards of Medical Care in Diabetes 2016, [place] [employer]. Diabetes Care. 2016.39(Suppl 1). Performed By: #### 2 4323-8 #### [facility] [id number] [address] [place] [address] [place] Potassium [Moles/Vol] 5.1 mmol/L Normal 3.7-5.1 [facility] Comment on above: Order Comment: Krystyna funk Type: BLOOD SPECIMEN Ordering Facility: [facility] Address: [address] [place] [address] Performed By: #### 2 4323-8 #### [facility] CLIA [id number] [address] [place] [address] [place] Protein [Mass/Vol] 6.7 g/dL Normal 6.3-8.0 [facility] Comment on above: Order Comment: Speci men Type: BLOOD SPECIMEN Ordering Facility: [facility] Address: [facility] [place] [address] Performed By: #### 2 4323-8 #### [facility] CLIA [id number] [address] [place] [address] [place] Sodium [Moles/Vol] 139 mmol/L Normal 136-144 [facility] Comment on above: Order Comment: Speci men Type: BLOOD SPECIMEN Ordering Facility: [facility] Address: [address] [place] [address] Performed By: #### 2 4323-8 #### [facility] CLIA [id number] [address] [place] [address] [place] Urea nitrogen [Mass/Vol] 30 mg/dL High 9-24 [facility] Comment on above: Order Comment: Speci men Type: BLOOD SPECIMEN Ordering Facility: [facility] Address: [address] [place] [address] Performed By: #### 2 4323-8 #### [facility] CLIA [id number] [address] [place] [address] [place] NT-proBNP [facility] 01-22 Natriuretic peptide.B prohormone N-Terminal [Mass/Vol] 437 pg/mL Normal <450 [facility] Comment on above: Order Comment: Speci men Type: BLOOD SPECIMEN Ordering Facility: [facility] Address: [address] [place] [address] Performed By: #### 3 3762-6, 3016-3 #### [facility] CLIA [id number] [address] [place] [address] [place] TSH SerPl-aCncon 01-22-2025 TSH Qn 5.250 m[IU]/L High 0.270-4.200 [facility] Comment on above: Order Comment: Speci men Type: BLOOD SPECIMEN Ordering Facility: [facility] Address: [address] [place] [address] Performed By: #### 3 3762-6, 3016-3 #### [facility] CLIA [id number] [address] [place] Absolute lymphocyte countOrd ered By: Buzz Rainey on 01-04-2025 Lymphocytes Auto (Unsp spec) [#/Vol] 0.86 10*3/uL 0.83-4.51 [facility] Absolute neutrophil countOrd ered By: Buzz Rainey on 01-04-2025 Neutrophils (Bld) [#/Vol] 2.9 10*3/uL 2.0-7.7 [facility] Automated lymphocyte count a s percentage of total leukocytesOrdered By: Buzz Rainey on 01-04-2025 Lymphocytes/100 WBC Auto (Unsp spec) 17.8 % Low 19-41 [facility] Basophil percentageOrdered B y: Buzz Rainey on 01-04-2025 Basophils/100 WBC (Bld) 0.6 % 0-1 [facility] Blood urea nitrogen (BUN)/cr eatinine ratioOrdered By: Buzz Rainey on 01-04-2025 Urea nitrogen/Creatinine [Mass ratio] 19.2 mg/mg 10-20 [facility] Carbon dioxide measurementOr dered By: Buzz Rainey on 01-04-2025 CO2 [Moles/Vol] 30.0 mmol/L 21.0-32.0 [facility] Chloride measurementOrdered By: Buzz Rainey on 01-04-2025 Chloride [Moles/Vol] 107 mmol/L 98-107 [facility] Eosinophil percentageOrdered By: Buzz Rainey on 01-04-2025 Eosinophils/100 WBC (Bld) 7.7 % High 0-5 [facility] Erythrocyte distribution wid th (RBC) [Ratio]Ordered By: Buzz Rainey on 01-04-2025 Erythrocyte distribution width (RBC) [Entitic vol] 46.5 fL High 35.1-43.9 [facility] Erythrocyte distribution wid th ratioOrdered By: Buzz Rainey on 01-04-2025 Erythrocyte distribution width (RBC) [Ratio] 12.4 % 11.6-14.6 [facility] Erythrocyte distribution wid th standard deviationOrdered By: Buzz Rainey on 01-04-2025 Erythrocyte distribution width (RBC) [Ratio] 46.5 fl High 35.1-43.9 [facility] Estimated glomerular filtrat ion rate (GFR) AmericanOrdered By: Buzz Rainey on 01-04-2025 Estimated GFR (MDRD) Amer 57 mL/min Low >60 [facility] Comment on above: GFR Calc Glomerular filtration rate ( GFR) estimationOrdered By: Buzz Rainey on 01-04-2025 Estimated GFR (MDRD) Non-Af Amer 47 mL/min Low >60 [facility] Comment on above: Non- GFR Calc GFR/1.73 sq M.predicted among non-blacks MDRD (S/P/Bld) [Vol rate/Area] 47 mL/min/{1.73_m2} Low >60 [facility] Comment on above: Non- GFR Calc Glucose measurementOrdered B y: Buzz Rainey on 01-04-2025 Glucose [Mass/Vol] 225 mg/dL High 74-106 [facility] Comment on above: Glucose result great er than or equal to 200 mg/dLsuggests DIABETES MELLITUS per A.D.A. criteria. Hematocrit Auto (Bld) [Volum e fraction]Ordered By: Buzz Rainey on 01-04-2025 Hematocrit (Bld) [Volume fraction] 39.9 % Low 40-54 [facility] Hemoglobin measurementOrdere d By: Buzz Rainey on 01-04-2025 Hemoglobin (Bld) [Mass/Vol] 13.1 g/dL 13.0-16.5 [facility] Immature granulocytes/100 WB C Auto (Bld)Ordered By: Buzz Rainey on 01-04-2025 Immature granulocytes/100 WBC (Bld) 0.200 % 0.0-0.9 [facility] Comment on above: IG% - Immature Granu locytes (promyelocytes, myelocytes and metamyelocytes) > 1% indicates that a LEFT SHIFT is Present. Lymphocytes Auto (Unsp spec) [#/Vol]Ordered By: Buzz Rainey on 01-04-2025 Lymphocytes (Bld) [#/Vol] 0.86 10*3/uL 0.83-4.51 [facility] Lymphocytes/100 WBC Auto (Un sp spec)Ordered By: Buzz Rainey on 01-04-2025 Lymphocytes/100 WBC (Bld) 17.8 % Low 19-41 [facility] MCV (mean corpuscular volume ) determinationOrdered By: Buzz Rainey on 01-04-2025 MCV (RBC) [Entitic vol] 101.0 fL High 80-94 [facility] Mean corpuscular hemoglobin (MCH) determinationOrdered By: tamanna Rainey on 01-04-2025 MCH (RBC) [Entitic mass] 33.2 pg High 27.0-32.0 [facility] Mean corpuscular hemoglobin concentration (MCHC) determinationOrdered By: Buzz Rainey on 01-04-2025 MCHC (RBC) [Mass/Vol] 32.8 g/dL 32-36 [facility] Mean platelet volume determi nationOrdered By: Buzz Rainey on 01-04-2025 Platelet mean volume (Bld) [Entitic vol] 10.0 fL 6.2-12.0 [facility] Monocyte percentageOrdered B y: Buzz Rainey on 01-04-2025 Monocytes/100 WBC (Bld) 12.8 % High 0-10 [facility] Neutrophil percentageOrdered By: Buzz Rainey on 01-04-2025 Neutrophils/100 WBC (Bld) 60.9 % 47-70 [facility] Nucleated red blood cell per centageOrdered By: Buzz Rainey on 01-04-2025 Nucleated RBC/100 WBC (Bld) [Ratio] 0 % 0-5 [facility] Platelet countOrdered By: Alexandra kenestrella Rainey on 01-04-2025 Platelets (Bld) [#/Vol] 217 10*3/uL 150-450 [facility] Potassium measurementOrdered By: Otiliahueyestrella De La Pazmklana on 01-04-2025 Potassium [Moles/Vol] 4.5 mmol/L 3.5-5.1 [facility] Comment on above: Slight Hemolysis, Re sult may be falsely increased. RBC Auto (Bld) [#/Vol]Ordere d By: Buzz De La Pazmklana on 01-04-2025 RBC (Bld) [#/Vol] 3.95 10*6/uL Low 4.6-6.2 [facility] Serum anion gap measurementO rdered By: Otiliahueyestrella De La Pazmklana on 01-04-2025 Anion gap [Moles/Vol] 4 mmol/L Low 5-15 [facility] Serum or plasma calcium jesenia urement (mass/volume)Ordered By: Buzz Rainey on 01-04-2025 Calcium [Mass/Vol] 8.9 mg/dL 8.5-10.1 [facility] Serum or plasma creatinine m easurement (mass/volume)Ordered By: Buzz Rainey on 01-04-2025 Creatinine [Mass/Vol] 1.51 mg/dL High 0.70-1.30 [facility] Comment on above: The validity of the calculated GFR & GFRAA in patients over 70 years has not been determined. Clinical correlation is essential. Serum or plasma urea nitroge n measurement (mass/volume)Ordered By: Buzz Rainey on 01-04-2025 Urea nitrogen [Mass/Vol] 29 mg/dL High 7-18 [facility] Sodium levelOrdered By: Otilia arthur Brainmklana on 01-04-2025 Sodium [Moles/Vol] 141 mmol/L 136-145 [facility] White blood cell (WBC) count Ordered By: Otiliahueyestrella De La Pazmklana on 01-04-2025 WBC (Bld) [#/Vol] 4.8 10*3/uL 4.4-11.0 [facility] Absolute lymphocyte countOrd ered By: Buzz Monreallana on 12-07-2024 Lymphocytes Auto (Unsp spec) [#/Vol] 1.34 10*3/uL 0.83-4.51 [facility] Absolute neutrophil countOrd ered By: Codyestrella De La Pazmklana on 12-07-2024 Neutrophils (Bld) [#/Vol] 3.2 10*3/uL 2.0-7.7 [facility] Automated lymphocyte count a s percentage of total leukocytesOrdered By: Buzz De La Pazmklana on 12-07-2024 Lymphocytes/100 WBC Auto (Unsp spec) 24.8 % 19-41 [facility] Basophil percentageOrdered B y: Buzz De La Pazmklana on 12-07-2024 Basophils/100 WBC (Bld) 0.6 % 0-1 [facility] Blood urea nitrogen (BUN)/cr eatinine ratioOrdered By: Buzz Rainey on 12-07-2024 Urea nitrogen/Creatinine [Mass ratio] 18.5 mg/mg 10-20 [facility] Carbon dioxide measurementOr dered By: yumikoperaltaestrella Rainey on 12-07-2024 CO2 [Moles/Vol] 27.0 mmol/L 21.0-32.0 [facility] Chloride measurementOrdered By: yuimkoperaltaestrella Rainey on 12-07-2024 Chloride [Moles/Vol] 106 mmol/L 98-107 [facility] Eosinophil percentageOrdered By: Buzz Rainey on 12-07-2024 Eosinophils/100 WBC (Bld) 5.5 % High 0-5 [facility] Erythrocyte distribution wid th (RBC) [Ratio]Ordered By: Buzz Rainey on 12-07-2024 Erythrocyte distribution width (RBC) [Entitic vol] 46.2 fL High 35.1-43.9 [facility] Erythrocyte distribution wid th ratioOrdered By: yumikoperaltaestrella Rainey on 12-07-2024 Erythrocyte distribution width (RBC) [Ratio] 12.3 % 11.6-14.6 [facility] Erythrocyte distribution wid th standard deviationOrdered By: Buzz Rainey on 12-07-2024 Erythrocyte distribution width (RBC) [Ratio] 46.2 fl High 35.1-43.9 [facility] Estimated glomerular filtrat ion rate (GFR) AmericanOrdered By: Buzz Rainey on 12-07-2024 Estimated GFR (MDRD) Amer 59 mL/min Low >60 [facility] Comment on above: GFR Calc Glomerular filtration rate ( GFR) estimationOrdered By: Buzz Rainey on 12-07-2024 Estimated GFR (MDRD) Non-Af Amer 49 mL/min Low >60 [facility] Comment on above: Non- GFR Calc GFR/1.73 sq M.predicted among non-blacks MDRD (S/P/Bld) [Vol rate/Area] 49 mL/min/{1.73_m2} Low >60 [facility] Comment on above: Non- GFR Calc Glucose measurementOrdered B y: Buzz Rainey on 12-07-2024 Glucose [Mass/Vol] 129 mg/dL High 74-106 [facility] Comment on above: Fasting Glucose resu lt greater than or equal to 126 mg/dL suggests DIABETES MELLITUS per A.D.A. criteria. Hematocrit Auto (Bld) [Volum e fraction]Ordered By: Buzz Rainey on 12-07-2024 Hematocrit (Bld) [Volume fraction] 40.6 % 40-54 [facility] Hemoglobin measurementOrdere d By: Buzz Rainey on 12-07-2024 Hemoglobin (Bld) [Mass/Vol] 13.4 g/dL 13.0-16.5 [facility] Immature granulocytes/100 WB C Auto (Bld)Ordered By: Buzz Rainey on 12-07-2024 Immature granulocytes/100 WBC (Bld) 0.200 % 0.0-0.9 [facility] Comment on above: IG% - Immature Granu locytes (promyelocytes, myelocytes and metamyelocytes) > 1% indicates that a LEFT SHIFT is Present. Lymphocytes Auto (Unsp spec) [#/Vol]Ordered By: Buzz Rainey on 12-07-2024 Lymphocytes (Bld) [#/Vol] 1.34 10*3/uL 0.83-4.51 [facility] Lymphocytes/100 WBC Auto (Un sp spec)Ordered By: Buzz Rainey on 12-07-2024 Lymphocytes/100 WBC (Bld) 24.8 % 19-41 [facility] MCV (mean corpuscular volume ) determinationOrdered By: Buzz Rainey on 12-07-2024 MCV (RBC) [Entitic vol] 102.8 fL High 80-94 [facility] Mean corpuscular hemoglobin (MCH) determinationOrdered By: Buzz Rainey on 12-07-2024 MCH (RBC) [Entitic mass] 33.9 pg High 27.0-32.0 [facility] Mean corpuscular hemoglobin concentration (MCHC) determinationOrdered By: Bzuz Rainey on 12-07-2024 MCHC (RBC) [Mass/Vol] 33.0 g/dL 32-36 [facility] Mean platelet volume determi nationOrdered By: Buzz Rainey on 12-07-2024 Platelet mean volume (Bld) [Entitic vol] 10.0 fL 6.2-12.0 [facility] Monocyte percentageOrdered B y: Buzz Rainey on 12-07-2024 Monocytes/100 WBC (Bld) 9.4 % 0-10 [facility] Neutrophil percentageOrdered By: Buzz Rainey on 12-07-2024 Neutrophils/100 WBC (Bld) 59.5 % 47-70 [facility] Nucleated red blood cell per centageOrdered By: Buzz Rainey on 12-07-2024 Nucleated RBC/100 WBC (Bld) [Ratio] 0 % 0-5 [facility] Platelet countOrdered By: Alexandra Rainey on 12-07-2024 Platelets (Bld) [#/Vol] 217 10*3/uL 150-450 [facility] Potassium measurementOrdered By: Buzz Rainey on 12-07-2024 Potassium [Moles/Vol] 4.8 mmol/L 3.5-5.1 [facility] RBC Auto (Bld) [#/Vol]Ordere d By: Buzz Rainey on 12-07-2024 RBC (Bld) [#/Vol] 3.95 10*6/uL Low 4.6-6.2 [facility] Serum anion gap measurementO rdered By: Buzz Rainey on 12-07-2024 Anion gap [Moles/Vol] 5 mmol/L 5-15 [facility] Serum or plasma calcium jesenia urement (mass/volume)Ordered By: Alexandrayumikoarthur Brainlavelle on 12-07-2024 Calcium [Mass/Vol] 9.1 mg/dL 8.5-10.1 [facility] Serum or plasma creatinine m easurement (mass/volume)Ordered By: Buzz Brainlavelle on 12-07-2024 Creatinine [Mass/Vol] 1.46 mg/dL High 0.70-1.30 [facility] Comment on above: The validity of the calculated GFR & GFRAA in patients over 70 years has not been determined. Clinical correlation is essential. Serum or plasma urea nitroge n measurement (mass/volume)Ordered By: Codyestrella Rahlana on 12-07-2024 Urea nitrogen [Mass/Vol] 27 mg/dL High 7-18 [facility] Sodium levelOrdered By: Otilia Rainey on 12-07-2024 Sodium [Moles/Vol] 138 mmol/L 136-145 [facility] White blood cell (WBC) count Ordered By: Buzz Rainey on 12-07-2024 WBC (Bld) [#/Vol] 5.4 10*3/uL 4.4-11.0 [facility] Absolute lymphocyte countOrd ered By: Buzz Rainey on 11-30-2024 Lymphocytes Auto (Unsp spec) [#/Vol] 1.16 10*3/uL 0.83-4.51 [facility] Absolute neutrophil countOrd ered By: Buzz Rainey on 11-30-2024 Neutrophils (Bld) [#/Vol] 2.8 10*3/uL 2.0-7.7 [facility] Automated lymphocyte count a s percentage of total leukocytesOrdered By: Buzz Rainey on 11-30-2024 Lymphocytes/100 WBC Auto (Unsp spec) 23.3 % 19-41 [facility] Basophil percentageOrdered B y: Buzz Rainey on 11-30-2024 Basophils/100 WBC (Bld) 0.6 % 0-1 [facility] Blood urea nitrogen (BUN)/cr eatinine ratioOrdered By: Buzz Rainey on 11-30-2024 Urea nitrogen/Creatinine [Mass ratio] 21.4 mg/mg High 10-20 [facility] Carbon dioxide measurementOr dered By: Buzz Rainey on 11-30-2024 CO2 [Moles/Vol] 28.0 mmol/L 21.0-32.0 [facility] Cardiology Visit Reporton Cardiology Visit Report [facility] [place] [address] OFFICE VISIT Date of Service: 11/30/24 MR#: [id number] Acct: [id number] Name: FLEX KLINE Rep #: [id number] : 1940 Provider: Dr. Margie Gary MD [...] Pulse Source NIBP Intake Visit Reasons: S/P 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 Normal [facility] Chloride measurementOrdered By: Buzz Rainey on 11-30-2024 Chloride [Moles/Vol] 105 mmol/L 98-107 [facility] Eosinophil percentageOrdered By: Buzz Rainey on 11-30-2024 Eosinophils/100 WBC (Bld) 6.6 % High 0-5 [facility] Erythrocyte distribution wid th (RBC) [Ratio]Ordered By: Buzz Rainey on 11-30-2024 Erythrocyte distribution width (RBC) [Entitic vol] 46.9 fL High 35.1-43.9 [facility] Erythrocyte distribution wid th ratioOrdered By: Buzz Rainey on 11-30-2024 Erythrocyte distribution width (RBC) [Ratio] 12.4 % 11.6-14.6 [facility] Erythrocyte distribution wid th standard deviationOrdered By: Buzz Rainey on 11-30-2024 Erythrocyte distribution width (RBC) [Ratio] 46.9 fl High 35.1-43.9 [facility] Estimated glomerular filtrat ion rate (GFR) AmericanOrdered By: Buzz Rainey on 11-30-2024 Estimated GFR (MDRD) Amer 62 mL/min >60 [facility] Comment on above: GFR Calc Glomerular filtration rate ( GFR) estimationOrdered By: Buzz Rainey on 11-30-2024 Estimated GFR (MDRD) Non-Af Amer 52 mL/min Low >60 [facility] Comment on above: Non- GFR Calc GFR/1.73 sq M.predicted among non-blacks MDRD (S/P/Bld) [Vol rate/Area] 52 mL/min/{1.73_m2} Low >60 [facility] Comment on above: Non- GFR Calc Glucose measurementOrdered B y: Alexandrayumikohueyestrella De La Pazmklana on 11-30-2024 Glucose [Mass/Vol] 119 mg/dL High 74-106 [facility] Comment on above: Fasting Glucose resu lt from 100 to 125 mg/dL suggests IMPAIRED HOMEOSTASIS per A.D.A. criteria. Hematocrit Auto (Bld) [Volum e fraction]Ordered By: Buzz Rainey on 11-30-2024 Hematocrit (Bld) [Volume fraction] 40.2 % 40-54 [facility] Hemoglobin measurementOrdere d By: Otiliahueyestrella De La Pazmklana on 11-30-2024 Hemoglobin (Bld) [Mass/Vol] 13.2 g/dL 13.0-16.5 [facility] Immature granulocytes/100 WB C Auto (Bld)Ordered By: Buzz Rainey on 11-30-2024 Immature granulocytes/100 WBC (Bld) 0.400 % 0.0-0.9 [facility] Comment on above: IG% - Immature Granu locytes (promyelocytes, myelocytes and metamyelocytes) > 1% indicates that a LEFT SHIFT is Present. Lymphocytes Auto (Unsp spec) [#/Vol]Ordered By: Buzz Rainey on 11-30-2024 Lymphocytes (Bld) [#/Vol] 1.16 10*3/uL 0.83-4.51 [facility] Lymphocytes/100 WBC Auto (Un sp spec)Ordered By: Buzz Rainey on 11-30-2024 Lymphocytes/100 WBC (Bld) 23.3 % 19-41 [facility] MCV (mean corpuscular volume ) determinationOrdered By: Buzz Rainey on 11-30-2024 MCV (RBC) [Entitic vol] 103.1 fL High 80-94 [facility] Mean corpuscular hemoglobin (MCH) determinationOrdered By: Buzz Rainey on 11-30-2024 MCH (RBC) [Entitic mass] 33.8 pg High 27.0-32.0 [facility] Mean corpuscular hemoglobin concentration (MCHC) determinationOrdered By: Buzz Rainey on 11-30-2024 MCHC (RBC) [Mass/Vol] 32.8 g/dL 32-36 [facility] Mean platelet volume determi nationOrdered By: Buzz Rainey on 11-30-2024 Platelet mean volume (Bld) [Entitic vol] 10.2 fL 6.2-12.0 [facility] Monocyte percentageOrdered B y: Buzz Rainey on 11-30-2024 Monocytes/100 WBC (Bld) 11.9 % High 0-10 [facility] Neutrophil percentageOrdered By: Buzz Rainey on 11-30-2024 Neutrophils/100 WBC (Bld) 57.2 % 47-70 [facility] Nucleated red blood cell per centageOrdered By: Buzz Rainey on 11-30-2024 Nucleated RBC/100 WBC (Bld) [Ratio] 0 % 0-5 [facility] Platelet countOrdered By: Alexandra Rainey on 11-30-2024 Platelets (Bld) [#/Vol] 212 10*3/uL 150-450 [facility] Potassium measurementOrdered By: Buzz Rianey on 11-30-2024 Potassium [Moles/Vol] 4.4 mmol/L 3.5-5.1 [facility] RBC Auto (Bld) [#/Vol]Ordere d By: Buzz Rainey on 11-30-2024 RBC (Bld) [#/Vol] 3.90 10*6/uL Low 4.6-6.2 [facility] Serum anion gap measurementO rdered By: Buzz Rainey on 11-30-2024 Anion gap [Moles/Vol] 6 mmol/L 5-15 [facility] Serum or plasma calcium jesenia urement (mass/volume)Ordered By: Buzz Rainey on 11-30-2024 Calcium [Mass/Vol] 8.8 mg/dL 8.5-10.1 [facility] Serum or plasma creatinine m easurement (mass/volume)Ordered By: Buzz Rainey on 11-30-2024 Creatinine [Mass/Vol] 1.40 mg/dL High 0.70-1.30 [facility] Comment on above: The validity of the calculated GFR & GFRAA in patients over 70 years has not been determined. Clinical correlation is essential. Serum or plasma urea nitroge n measurement (mass/volume)Ordered By: Buzz Rainey on 11-30-2024 Urea nitrogen [Mass/Vol] 30 mg/dL High 7-18 [facility] Sodium levelOrdered By: Otilia Rainey on 11-30-2024 Sodium [Moles/Vol] 139 mmol/L 136-145 [facility] White blood cell (WBC) count Ordered By: Buzz Rainey on 11-30-2024 WBC (Bld) [#/Vol] 5.0 10*3/uL 4.4-11.0 [facility] Absolute neutrophil countOrd ered By: Buzz Rainey on 11-23-2024 Neutrophils (Bld) [#/Vol] 3.4 10*3/uL 2.0-7.7 [facility] Basophil percentageOrdered B y: Buzz Rainey on 11-23-2024 Basophils/100 WBC (Bld) 0.5 % 0-1 [facility] Blood urea nitrogen (BUN)/cr eatinine ratioOrdered By: Buzz Rainey on 11-23-2024 Urea nitrogen/Creatinine [Mass ratio] 19.8 mg/mg 10-20 [facility] Carbon dioxide measurementOr dered By: Buzz Rainey on 11-23-2024 CO2 [Moles/Vol] 28.0 mmol/L 21.0-32.0 [facility] Chloride measurementOrdered By: Buzz Rainey on 11-23-2024 Chloride [Moles/Vol] 104 mmol/L 98-107 [facility] Eosinophil percentageOrdered By: Buzz Rainey on 11-23-2024 Eosinophils/100 WBC (Bld) 6.0 % High 0-5 [facility] Erythrocyte distribution wid th (RBC) [Ratio]Ordered By: Buzz Rainey on 11-23-2024 Erythrocyte distribution width (RBC) [Entitic vol] 43.7 fL 35.1-43.9 [facility] Erythrocyte distribution wid th ratioOrdered By: Buzz Rainey on 11-23-2024 Erythrocyte distribution width (RBC) [Ratio] 11.9 % 11.6-14.6 [facility] Estimated glomerular filtrat ion rate (GFR) AmericanOrdered By: Buzz Rainey on 11-23-2024 Estimated GFR (MDRD) Amer 67 mL/min >60 [facility] Comment on above: GFR Calc Glomerular filtration rate ( GFR) estimationOrdered By: Buzz Rainey on 11-23-2024 Estimated GFR (MDRD) Non-Af Amer 56 mL/min Low >60 [facility] Comment on above: Non- GFR Calc Glucose measurementOrdered B y: Buzz Rainey on 11-23-2024 Glucose [Mass/Vol] 119 mg/dL High 74-106 [facility] Comment on above: Fasting Glucose resu lt from 100 to 125 mg/dL suggests IMPAIRED HOMEOSTASIS per A.D.A. criteria. Hematocrit Auto (Bld) [Volum e fraction]Ordered By: Buzz Rainey on 11-23-2024 Hematocrit (Bld) [Volume fraction] 40.4 % 40-54 [facility] Hemoglobin measurementOrdere d By: Buzz Rainey on 11-23-2024 Hemoglobin (Bld) [Mass/Vol] 13.8 g/dL 13.0-16.5 [facility] Immature granulocytes/100 WB C Auto (Bld)Ordered By: Buzz Rainey on 11-23-2024 Immature granulocytes/100 WBC (Bld) 0.400 % 0.0-0.9 [facility] Comment on above: IG% - Immature Granu locytes (promyelocytes, myelocytes and metamyelocytes) > 1% indicates that a LEFT SHIFT is Present. Lymphocytes Auto (Unsp spec) [#/Vol]Ordered By: Buzz Rainey on 11-23-2024 Lymphocytes (Bld) [#/Vol] 1.22 10*3/uL 0.83-4.51 [facility] Lymphocytes/100 WBC Auto (Un sp spec)Ordered By: Buzz Rainey on 11-23-2024 Lymphocytes/100 WBC (Bld) 21.4 % 19-41 [facility] MCV (mean corpuscular volume ) determinationOrdered By: Buzz Rainey on 11-23-2024 MCV (RBC) [Entitic vol] 99.5 fL High 80-94 [facility] Mean corpuscular hemoglobin (MCH) determinationOrdered By: Buzz Rainey on 11-23-2024 MCH (RBC) [Entitic mass] 34.0 pg High 27.0-32.0 [facility] Mean corpuscular hemoglobin concentration (MCHC) determinationOrdered By: Buzz Rainey on 11-23-2024 MCHC (RBC) [Mass/Vol] 34.2 g/dL 32-36 [facility] Mean platelet volume determi nationOrdered By: Buzz Rainey on 11-23-2024 Platelet mean volume (Bld) [Entitic vol] 10.2 fL 6.2-12.0 [facility] Monocyte percentageOrdered B y: Buzz Rainey on 11-23-2024 Monocytes/100 WBC (Bld) 12.4 % High 0-10 [facility] Neutrophil percentageOrdered By: Buzz Rainey on 11-23-2024 Neutrophils/100 WBC (Bld) 59.3 % 47-70 [facility] Nucleated red blood cell per centageOrdered By: Buzz Rainey on 11-23-2024 Nucleated RBC/100 WBC (Bld) [Ratio] 0 % 0-5 [facility] Platelet countOrdered By: Alexandra Rainey on 11-23-2024 Platelets (Bld) [#/Vol] 219 10*3/uL 150-450 [facility] Potassium measurementOrdered By: Buzz Rainey on 11-23-2024 Potassium [Moles/Vol] 4.7 mmol/L 3.5-5.1 [facility] RBC Auto (Bld) [#/Vol]Ordere d By: Buzz Rainey on 11-23-2024 RBC (Bld) [#/Vol] 4.06 10*6/uL Low 4.6-6.2 [facility] Serum anion gap measurementO rdered By: Buzz Rainey on 11-23-2024 Anion gap [Moles/Vol] 5 mmol/L 5-15 [facility] Serum or plasma calcium jesenia urement (mass/volume)Ordered By: Buzz Rainey on 11-23-2024 Calcium [Mass/Vol] 9.2 mg/dL 8.5-10.1 [facility] Serum or plasma creatinine m easurement (mass/volume)Ordered By: Buzz Rainey on 11-23-2024 Creatinine [Mass/Vol] 1.31 mg/dL High 0.70-1.30 [facility] Comment on above: The validity of the calculated GFR & GFRAA in patients over 70 years has not been determined. Clinical correlation is essential. Serum or plasma urea nitroge n measurement (mass/volume)Ordered By: Buzz Rainey on 11-23-2024 Urea nitrogen [Mass/Vol] 26 mg/dL High 7-18 [facility] Sodium levelOrdered By: Otilia Rainey on 11-23-2024 Sodium [Moles/Vol] 136 mmol/L 136-145 [facility] White blood cell (WBC) count Ordered By: Buzz Rainey on 11-23-2024 WBC (Bld) [#/Vol] 5.7 10*3/uL 4.4-11.0 [facility] Absolute neutrophil countOrd ered By: Buzz Rainey on 11-16-2024 Neutrophils (Bld) [#/Vol] 3.9 10*3/uL 2.0-7.7 [facility] Basophil percentageOrdered B y: Buzz Rainey on 11-16-2024 Basophils/100 WBC (Bld) 0.7 % 0-1 [facility] Blood urea nitrogen (BUN)/cr eatinine ratioOrdered By: Buzz Rainey on 11-16-2024 Urea nitrogen/Creatinine [Mass ratio] 18.8 mg/mg 10-20 [facility] Carbon dioxide measurementOr dered By: Buzz Rainey on 11-16-2024 CO2 [Moles/Vol] 25.0 mmol/L 21.0-32.0 [facility] Chloride measurementOrdered By: Buzz Rainey on 11-16-2024 Chloride [Moles/Vol] 105 mmol/L 98-107 [facility] Eosinophil percentageOrdered By: Buzz Rainey on 11-16-2024 Eosinophils/100 WBC (Bld) 6.1 % High 0-5 [facility] Erythrocyte distribution wid th (RBC) [Ratio]Ordered By: Buzz Rainey on 11-16-2024 Erythrocyte distribution width (RBC) [Entitic vol] 43.8 fL 35.1-43.9 [facility] Erythrocyte distribution wid th ratioOrdered By: Buzz Rainey on 11-16-2024 Erythrocyte distribution width (RBC) [Ratio] 11.9 % 11.6-14.6 [facility] Estimated glomerular filtrat ion rate (GFR) AmericanOrdered By: Buzz Rainey on 11-16-2024 Estimated GFR (MDRD) Amer 56 mL/min Low >60 [facility] Comment on above: GFR Calc Glomerular filtration rate ( GFR) estimationOrdered By: Buzz Rainey on 11-16-2024 Estimated GFR (MDRD) Non-Af Amer 46 mL/min Low >60 [facility] [facility] Comment on above: Non- GFR Calc Glucose measurementOrdered B y: Buzz Rainey on 11-16-2024 Glucose [Mass/Vol] 130 mg/dL High 74-106 [facility] Comment on above: Fasting Glucose resu lt greater than or equal to 126 mg/dL suggests DIABETES MELLITUS per A.D.A. criteria. Hematocrit Auto (Bld) [Volum e fraction]Ordered By: Buzz Rainey on 11-16-2024 Hematocrit (Bld) [Volume fraction] 37.6 % Low 40-54 [facility] Hemoglobin measurementOrdere d By: Buzz Rainey on 11-16-2024 Hemoglobin (Bld) [Mass/Vol] 12.7 g/dL Low 13.0-16.5 [facility] Immature granulocytes/100 WB C Auto (Bld)Ordered By: Buzz Rainey on 11-16-2024 Immature granulocytes/100 WBC (Bld) 0.200 % 0.0-0.9 [facility] Comment on above: IG% - Immature Granu locytes (promyelocytes, myelocytes and metamyelocytes) > 1% indicates that a LEFT SHIFT is Present. Lymphocytes Auto (Unsp spec) [#/Vol]Ordered By: Buzz Rainey on 11-16-2024 Lymphocytes (Bld) [#/Vol] 1.20 10*3/uL 0.83-4.51 [facility] Lymphocytes/100 WBC Auto (Un sp spec)Ordered By: Buzz Rainey on 11-16-2024 Lymphocytes/100 WBC (Bld) 19.8 % 19-41 [facility] MCV (mean corpuscular volume ) determinationOrdered By: Buzz Rainey on 11-16-2024 MCV (RBC) [Entitic vol] 100.5 fL High 80-94 [facility] Mean corpuscular hemoglobin (MCH) determinationOrdered By: Buzz Rainey on 11-16-2024 MCH (RBC) [Entitic mass] 34.0 pg High 27.0-32.0 [facility] Mean corpuscular hemoglobin concentration (MCHC) determinationOrdered By: Buzz Rainey on 11-16-2024 MCHC (RBC) [Mass/Vol] 33.8 g/dL 32-36 [facility] Mean platelet volume determi nationOrdered By: Buzz Rainey on 11-16-2024 Platelet mean volume (Bld) [Entitic vol] 10.0 fL 6.2-12.0 [facility] Monocyte percentageOrdered B y: Buzz Rainey on 11-16-2024 Monocytes/100 WBC (Bld) 9.1 % 0-10 [facility] Neutrophil percentageOrdered By: Buzz Rainey on 11-16-2024 Neutrophils/100 WBC (Bld) 64.1 % 47-70 [facility] Nucleated red blood cell per centageOrdered By: Buzz Rainey on 11-16-2024 Nucleated RBC/100 WBC (Bld) [Ratio] 0 % 0-5 [facility] Platelet countOrdered By: Alexandra Rainey on 11-16-2024 Platelets (Bld) [#/Vol] 210 10*3/uL 150-450 [facility] Potassium measurementOrdered By: Buzz Rainey on 11-16-2024 Potassium [Moles/Vol] 4.9 mmol/L 3.5-5.1 [facility] Comment on above: Slight Hemolysis, Re sult may be falsely increased. RBC Auto (Bld) [#/Vol]Ordere d By: Buzz Rainey on 11-16-2024 RBC (Bld) [#/Vol] 3.74 10*6/uL Low 4.6-6.2 [facility] Serum anion gap measurementO rdered By: Buzz Rainey on 11-16-2024 Anion gap [Moles/Vol] 5 mmol/L 5-15 [facility] Serum or plasma calcium jesenia urement (mass/volume)Ordered By: Buzz Rainey on 11-16-2024 Calcium [Mass/Vol] 9.0 mg/dL 8.5-10.1 [facility] Serum or plasma creatinine m easurement (mass/volume)Ordered By: Buzz Rainey on 11-16-2024 Creatinine [Mass/Vol] 1.54 mg/dL High 0.70-1.30 [facility] Comment on above: The validity of the calculated GFR & GFRAA in patients over 70 years has not been determined. Clinical correlation is essential. Serum or plasma urea nitroge n measurement (mass/volume)Ordered By: Buzz Rainey on 11-16-2024 Urea nitrogen [Mass/Vol] 29 mg/dL High 7-18 [facility] Sodium levelOrdered By: Otilia arthur Redd on 11-16-2024 Sodium [Moles/Vol] 135 mmol/L Low 136-145 [facility] White blood cell (WBC) count Ordered By: Buzz Rainey on 11-16-2024 WBC (Bld) [#/Vol] 6.1 10*3/uL 4.4-11.0 [facility] Absolute neutrophil countOrd ered By: Buzz Rainey on 11-09-2024 Neutrophils (Bld) [#/Vol] 3.1 10*3/uL 2.0-7.7 [facility] Basophil percentageOrdered B y: Buzz Rainey on 11-09-2024 Basophils/100 WBC (Bld) 0.8 % 0-1 [facility] Blood urea nitrogen (BUN)/cr eatinine ratioOrdered By: Buzz Rainey on 11-09-2024 Urea nitrogen/Creatinine [Mass ratio] 21.8 mg/mg High 10-20 [facility] Carbon dioxide measurementOr dered By: Buzz Rainey on 11-09-2024 CO2 [Moles/Vol] 27.0 mmol/L 21.0-32.0 [facility] Chloride measurementOrdered By: Buzz Rainey on 11-09-2024 Chloride [Moles/Vol] 105 mmol/L 98-107 [facility] Eosinophil percentageOrdered By: Buzz Rainey on 11-09-2024 Eosinophils/100 WBC (Bld) 9.1 % High 0-5 [facility] Erythrocyte distribution wid th (RBC) [Ratio]Ordered By: Buzz Rainey on 11-09-2024 Erythrocyte distribution width (RBC) [Entitic vol] 43.2 fL 35.1-43.9 [facility] Erythrocyte distribution wid th ratioOrdered By: Buzz Rainey on 11-09-2024 Erythrocyte distribution width (RBC) [Ratio] 11.8 % 11.6-14.6 [facility] Estimated glomerular filtrat ion rate (GFR) AmericanOrdered By: Alexandrayumikohueyestrella De La Pazmklana on 11-09-2024 Estimated GFR (MDRD) Amer 72 mL/min >60 [facility] Comment on above: GFR Calc Glomerular filtration rate ( GFR) estimationOrdered By: Alexandratamanna Rainey on 11-09-2024 Estimated GFR (MDRD) Non-Af Amer 59 mL/min Low >60 [facility] Comment on above: Non- GFR Calc Glucose measurementOrdered B y: Buzz Brainlavelle on 11-09-2024 Glucose [Mass/Vol] 145 mg/dL High 74-106 [facility] Comment on above: Fasting Glucose resu lt greater than or equal to 126 mg/dL suggests DIABETES MELLITUS per A.D.A. criteria. Hematocrit Auto (Bld) [Volum e fraction]Ordered By: Alexandrayumikohueyestrella De La Pazmklana on 11-09-2024 Hematocrit (Bld) [Volume fraction] 38.3 % Low 40-54 [facility] Hemoglobin measurementOrdere d By: Buzz Brainmklana on 11-09-2024 Hemoglobin (Bld) [Mass/Vol] 12.9 g/dL Low 13.0-16.5 [facility] Immature granulocytes/100 WB C Auto (Bld)Ordered By: yumikohueyestrella De La Pazmklana on 11-09-2024 Immature granulocytes/100 WBC (Bld) 0.400 % 0.0-0.9 [facility] Comment on above: IG% - Immature Granu locytes (promyelocytes, myelocytes and metamyelocytes) > 1% indicates that a LEFT SHIFT is Present. Lymphocytes Auto (Unsp spec) [#/Vol]Ordered By: tamanna De La Pazmklana on 11-09-2024 Lymphocytes (Bld) [#/Vol] 1.10 10*3/uL 0.83-4.51 [facility] Lymphocytes/100 WBC Auto (Un sp spec)Ordered By: Buzz Rainey on 11-09-2024 Lymphocytes/100 WBC (Bld) 21.3 % 19-41 [facility] MCV (mean corpuscular volume ) determinationOrdered By: Buzz Rainey on 11-09-2024 MCV (RBC) [Entitic vol] 100.3 fL High 80-94 [facility] Mean corpuscular hemoglobin (MCH) determinationOrdered By: Buzz Rainey on 11-09-2024 MCH (RBC) [Entitic mass] 33.8 pg High 27.0-32.0 [facility] Mean corpuscular hemoglobin concentration (MCHC) determinationOrdered By: Buzz Rainey on 11-09-2024 MCHC (RBC) [Mass/Vol] 33.7 g/dL 32-36 [facility] Mean platelet volume determi nationOrdered By: Buzz Rainey on 11-09-2024 Platelet mean volume (Bld) [Entitic vol] 10.0 fL 6.2-12.0 [facility] Monocyte percentageOrdered B y: Buzz Rainey on 11-09-2024 Monocytes/100 WBC (Bld) 9.1 % 0-10 [facility] Neutrophil percentageOrdered By: Buzz Rainey on 11-09-2024 Neutrophils/100 WBC (Bld) 59.3 % 47-70 [facility] Nucleated red blood cell per centageOrdered By: Buzz Rainey on 11-09-2024 Nucleated RBC/100 WBC (Bld) [Ratio] 0 % 0-5 [facility] Platelet countOrdered By: Alexandra Rainey on 11-09-2024 Platelets (Bld) [#/Vol] 225 10*3/uL 150-450 [facility] Potassium measurementOrdered By: Buzz Rainey on 11-09-2024 Potassium [Moles/Vol] 4.5 mmol/L 3.5-5.1 [facility] RBC Auto (Bld) [#/Vol]Ordere d By: Buzz Rainey on 11-09-2024 RBC (Bld) [#/Vol] 3.82 10*6/uL Low 4.6-6.2 [facility] Serum anion gap measurementO rdered By: Buzz Rainey on 11-09-2024 Anion gap [Moles/Vol] 4 mmol/L Low 5-15 [facility] Serum or plasma calcium jesenia urement (mass/volume)Ordered By: Buzz Rainey on 11-09-2024 Calcium [Mass/Vol] 8.8 mg/dL 8.5-10.1 [facility] Serum or plasma creatinine m easurement (mass/volume)Ordered By: Buzz Rainey on 11-09-2024 Creatinine [Mass/Vol] 1.24 mg/dL 0.70-1.30 [facility] Comment on above: The validity of the calculated GFR & GFRAA in patients over 70 years has not been determined. Clinical correlation is essential. Serum or plasma urea nitroge n measurement (mass/volume)Ordered By: Buzz Rainey on 11-09-2024 Urea nitrogen [Mass/Vol] 27 mg/dL High 7-18 [facility] Sodium levelOrdered By: Otilia arthur Redd on 11-09-2024 Sodium [Moles/Vol] 136 mmol/L 136-145 [facility] White blood cell (WBC) count Ordered By: Buzz Rainey on 11-09-2024 WBC (Bld) [#/Vol] 5.2 10*3/uL 4.4-11.0 [facility] 87-UL-Zkefncn DOrdered By: Lana Rainey on 11-03-2024 Vitamin D 25-Hydroxy 37.4 ng/mL [facility] Comment on above: Vitamin D 25(OH) Sta tus Range Deficiency <20 ng/mL (50nmol/L) Insufficiency 20 - 30 ng/mL (50 - 75 nmol/L) Sufficiency 30 - 100 ng/mL (75 - 250 nmol/L) Toxicity >100 ng/mL (>250 nmol/L) Absolute neutrophil countOrd ered By: Buzz Rainey on 11-03-2024 Neutrophils (Bld) [#/Vol] 3.2 10*3/uL 2.0-7.7 [facility] Albumin to globulin ratioOrd ered By: Otiliahueyestrella De La Pazmklana on 11-03-2024 Albumin/Globulin [Mass ratio] 1.0 {ratio} 0.9-2.4 [facility] Basophil percentageOrdered B y: Buzz De La Pazmklana on 11-03-2024 Basophils/100 WBC (Bld) 0.4 % 0-1 [facility] Bilirubin, totalOrdered By: Buzz Rainey on 11-03-2024 Bilirubin [Mass/Vol] 0.80 mg/dL 0.20-1.00 [facility] Comment on above: For patients on eltr ombopag therapy, use of Dimension Baraga TBIL is not recommended. Blood urea nitrogen (BUN)/cr eatinine ratioOrdered By: Buzz Rainey on 11-03-2024 Urea nitrogen/Creatinine [Mass ratio] 24.5 mg/mg High 10-20 [facility] Carbon dioxide measurementOr dered By: Buzz Rainey on 11-03-2024 CO2 [Moles/Vol] 23.0 mmol/L 21.0-32.0 [facility] Chloride measurementOrdered By: Buzz Rainey on 11-03-2024 Chloride [Moles/Vol] 105 mmol/L 98-107 [facility] Eosinophil percentageOrdered By: Buzz Rainey on 11-03-2024 Eosinophils/100 WBC (Bld) 8.6 % High 0-5 [facility] Erythrocyte distribution wid th (RBC) [Ratio]Ordered By: Buzz Rainey on 11-03-2024 Erythrocyte distribution width (RBC) [Entitic vol] 44.9 fL High 35.1-43.9 [facility] Erythrocyte distribution wid th ratioOrdered By: yumikoperaltaestrella Rainey on 11-03-2024 Erythrocyte distribution width (RBC) [Ratio] 12.0 % 11.6-14.6 [facility] Estimated glomerular filtrat ion rate (GFR) AmericanOrdered By: Buzz Rainey on 11-03-2024 Estimated GFR (MDRD) Amer 61 mL/min >60 [facility] Comment on above: GFR Calc Glomerular filtration rate ( GFR) estimationOrdered By: Buzz Rainey on 11-03-2024 Estimated GFR (MDRD) Non-Af Amer 50 mL/min Low >60 [facility] Comment on above: Non- GFR Calc Glucose measurementOrdered B y: Buzz Rainey on 11-03-2024 Glucose [Mass/Vol] 146 mg/dL High 74-106 [facility] Comment on above: Fasting Glucose resu lt greater than or equal to 126 mg/dL suggests DIABETES MELLITUS per A.D.A. criteria. Hematocrit Auto (Bld) [Volum e fraction]Ordered By: Buzz Rainey on 11-03-2024 Hematocrit (Bld) [Volume fraction] 43.0 % 40-54 [facility] Hemoglobin A1c percentageOrd ered By: Buzz Rainey on 11-03-2024 HbA1c (Bld) [Mass fraction] 6.6 % High 3.8-5.6 [facility] Comment on above: Normal < 5.7 % Predi abetic 5.7 - 6.4 % Diabetic >or= 6.5 % Please note range changes. Hemoglobin measurementOrdere d By: Buzz Rainey on 11-03-2024 Hemoglobin (Bld) [Mass/Vol] 14.7 g/dL 13.0-16.5 [facility] High density lipoprotein (HD L) measurementOrdered By: Buzz Rainey on 11-03-2024 Cholesterol in HDL [Mass/Vol] 57 mg/dL >40 [facility] Comment on above: The drugs N-Acetylcy steine and Metamizole may falsely depress this assay. Reference Range HDL <40 mg/dL Low HDL Cholesterol HDL >or= 60 mg/dL High HDL Cholesterol Immature granulocytes/100 WB C Auto (Bld)Ordered By: Buzz Rainey on 11-03-2024 Immature granulocytes/100 WBC (Bld) 0.200 % 0.0-0.9 [facility] Comment on above: IG% - Immature Granu locytes (promyelocytes, myelocytes and metamyelocytes) > 1% indicates that a LEFT SHIFT is Present. Laboratory - Chemistry and C hemistry - challengeOrdered By: Buzz Rainey on 11-03-2024 AST [Catalytic activity/Vol] 41 U/L High 15-37 [facility] Low density lipoprotein (LDL ) cholesterol measurementOrdered By: Buzz Rainey on 11-03-2024 Cholesterol in LDL [Mass/Vol] 97 mg/dL 0-130 [facility] Lymphocytes Auto (Unsp spec) [#/Vol]Ordered By: Buzz Rainey on 11-03-2024 Lymphocytes (Bld) [#/Vol] 0.87 10*3/uL 0.83-4.51 [facility] Lymphocytes/100 WBC Auto (Un sp spec)Ordered By: Buzz Rainey on 11-03-2024 Lymphocytes/100 WBC (Bld) 17.4 % Low 19-41 [facility] MCV (mean corpuscular volume ) determinationOrdered By: Buzz Rainey on 11-03-2024 MCV (RBC) [Entitic vol] 101.2 fL High 80-94 [facility] Magnesium measurementOrdered By: Buzz Rainey on 11-03-2024 Magnesium [Mass/Vol] 2.2 mg/dL 1.6-2.6 [facility] Mean corpuscular hemoglobin (MCH) determinationOrdered By: Buzz Rainey on 11-03-2024 MCH (RBC) [Entitic mass] 34.6 pg High 27.0-32.0 [facility] Mean corpuscular hemoglobin concentration (MCHC) determinationOrdered By: Buzz Rainey on 11-03-2024 MCHC (RBC) [Mass/Vol] 34.2 g/dL 32-36 [facility] Mean platelet volume determi nationOrdered By: Buzz Rainey on 11-03-2024 Platelet mean volume (Bld) [Entitic vol] 9.9 fL 6.2-12.0 [facility] Monocyte percentageOrdered B y: Buzz Rainey on 11-03-2024 Monocytes/100 WBC (Bld) 10.4 % High 0-10 [facility] Neutrophil percentageOrdered By: Buzz Rainey on 11-03-2024 Neutrophils/100 WBC (Bld) 63.0 % 47-70 [facility] Nucleated red blood cell per centageOrdered By: Buzz Rainey on 11-03-2024 Nucleated RBC/100 WBC (Bld) [Ratio] 0 % 0-5 [facility] Platelet countOrdered By: Alexandra Raniey on 11-03-2024 Platelets (Bld) [#/Vol] 190 10*3/uL 150-450 [facility] Potassium measurementOrdered By: Buzz Rainey on 11-03-2024 Potassium [Moles/Vol] 5.0 mmol/L 3.5-5.1 [facility] RBC Auto (Bld) [#/Vol]Ordere d By: Buzz Rainey on 11-03-2024 RBC (Bld) [#/Vol] 4.25 10*6/uL Low 4.6-6.2 [facility] Serum anion gap measurementO rdered By: Buzz Rainey on 11-03-2024 Anion gap [Moles/Vol] 8 mmol/L 5-15 [facility] Serum globulin measurementOr dered By: Buzz Rainey 11-03-2024 Globulin (S) [Mass/Vol] 3.8 g/dL 2.2-4.2 [facility] Serum or plasma alanine nix otransferase (ALT) measurementOrdered By: Buzz Rainey 11-03-2024 ALT [Catalytic activity/Vol] 20 U/L 16-61 [facility] Serum or plasma albumin jseenia urement (mass/volume)Ordered By: Buzz Rainey 11-03-2024 Albumin [Mass/Vol] 3.7 g/dL 3.2-5.0 [facility] Serum or plasma alkaline radha sphatase measurementOrdered By: Buzz Rainey 11-03-2024 ALP [Catalytic activity/Vol] 77 U/L 45-117 [facility] Serum or plasma calcium jesenia urement (mass/volume)Ordered By: Buzz Rainey 11-03-2024 Calcium [Mass/Vol] 9.3 mg/dL 8.5-10.1 [facility] Serum or plasma cholesterol measurement (mass/volume)Ordered By: Buzz Rainey on 11-03-2024 Cholesterol [Mass/Vol] 175 mg/dL <200 [facility] Comment on above: <200 mg/dL Desirable 200-240 mg/dL Borderline >240 mg/dL High Risk Serum or plasma creatinine m easurement (mass/volume)Ordered By: Buzz Rainey on 11-03-2024 Creatinine [Mass/Vol] 1.43 mg/dL High 0.70-1.30 [facility] Comment on above: The validity of the calculated GFR & GFRAA in patients over 70 years has not been determined. Clinical correlation is essential. Serum or plasma urea nitroge n measurement (mass/volume)Ordered By: Buzz Rainey on 11-03-2024 Urea nitrogen [Mass/Vol] 35 mg/dL High 7-18 [facility] Sodium levelOrdered By: Otilia Rainey on 11-03-2024 Sodium [Moles/Vol] 136 mmol/L 136-145 [facility] Total proteinOrdered By: Franklin Rainey on 11-03-2024 Protein [Mass/Vol] 7.5 g/dL 6.4-8.2 [facility] Triglycerides measurementOrd ered By: Buzz Rainey on 11-03-2024 Triglyceride [Mass/Vol] 105 mg/dL <199 [facility] Comment on above: The drugs N-Acetylcy steine and Metamizole may falsely depress this assay.Serum Triglycerides Reference Interval Normal <150 mg/dL Borderline high 150 - 199 mg/dL High 200 - 499 mg/dL Very High > or = 500 mg/dL Very low density lipoprotein (VLDL) cholesterol measurementOrdered By: Buzz Rainey on 11-03-2024 VLDL Cholesterol 21 mg/dL 5-40 [facility] White blood cell (WBC) count Ordered By: Buzz Rainey on 11-03-2024 WBC (Bld) [#/Vol] 5.0 10*3/uL 4.4-11.0 [facility] Bedside Glucoseon 11-01-2024 FINGERSTICK GLU 163 mg/dL High 74-106 [facility] Comment on above: Result Comment: ARNOLD GEMENT OF PATIENT CARE PER NURSING PROTOCOL Performed By: #### L 501.080 ####[facility] [address] [place], [address] FINGERSTICK GLU 212 mg/dL High [address] [place] [address] Comment on above: Result Comment: ARNOLD GEMENT OF PATIENT CARE PER NURSING PROTOCOL Performed By: #### L 501.080 #### [facility] [address] [place], [address] FINGERSTICK GLU 125 mg/dL High [address] [place] [address] Comment on above: Result Comment: ARNOLD GEMENT OF PATIENT CARE PER NURSING PROTOCOL Performed By: #### L 501.080 #### [facility] [address] [place], [address] [facility] measurement at [facility] deOrdered By: Sung Rhodes on 11-01-2024 [facility] 163 mg/dL High [address] [place] [address] Comment on above: MANAGEMENT OF PATIEN T CARE PER NURSING PROTOCOL Bedside Glucoseon 10-31-2024 FINGERSTICK GLU 125 mg/dL [address] Comment on above: Result Comment: ARNOLD GEMENT OF PATIENT CARE PER NURSING PROTOCOL Performed By: #### L 501.080 #### [facility] [address] [place], [address] FINGERSTICK GLU 136 mg/dL High [address] [place] [address] Comment on above: Result Comment: ARNOLD GEMENT OF PATIENT CARE PER NURSING PROTOCOL Performed By: #### L 501.080 #### [facility] [address] [place], [address] FINGERSTICK GLU 207 mg/dL [address] Comment on above: Result Comment: ARNOLD GEMENT OF PATIENT CARE PER NURSING PROTOCOL Performed By: #### L 501.080 ####[facility] [address] [place], [address] FINGERSTICK GLU 297 mg/dL High [address] [place] [address] Comment on above: Result Comment: ARNOLD GEMENT OF PATIENT CARE PER NURSING PROTOCOL Performed By: #### L 501.080 ####[facility] [address] [place], [address] Bedside Glucoseon 10-30-2024 FINGERSTICK GLU 216 mg/dL High [address] [place] [address] Comment on above: Result Comment: ARNOLD GEMENT OF PATIENT CARE PER NURSING PROTOCOL Performed By: #### L 501.080 ####[facility] [address] [place], [address] FINGERSTICK GLU 256 mg/dL High [address] [place] [address] Comment on above: Result Comment: ARNOLD GEMENT OF PATIENT CARE PER NURSING PROTOCOL Performed By: #### L 501.080 ####[facility] [address] [place], [address] FINGERSTICK GLU 197 mg/dL High [address] [place] [address] Comment on above: Result Comment: ARNOLD GEMENT OF PATIENT CARE PER NURSING PROTOCOL Performed By: #### L 501.080 ####[facility] [address] [place], [address] FINGERSTICK GLU 177 mg/dL [address] Comment on above: Result Comment: ARNOLD GEMENT OF PATIENT CARE PER NURSING PROTOCOL Performed By: #### L 501.080 #### [facility] [address] [place], [address] FINGERSTICK GLU 188 mg/dL [address] Comment on above: Result Comment: ARNOLD GEMENT OF PATIENT CARE PER NURSING PROTOCOL Performed By: #### L 501.080 #### [facility] [address] [place], [address] Absolute neutrophil countOrd ered By: Roderick Laurent on 10-29-2024 Neutrophils (Bld) [#/Vol] 3.8 10*3/uL 2.0-7.7 [facility] Albumin to globulin ratioOrd ered By: Roderick Laurent on 10-29-2024 Albumin/Globulin [Mass ratio] 1.2 {ratio} 0.9-2.4 [facility] Basophil percentageOrdered B y: Roderick Laurent on 10-29-2024 Basophils/100 WBC (Bld) 0.7 % 0-1 [facility] Bedside Glucoseon 10-29-2024 FINGERSTICK GLU 255 mg/dL High 74-106 [facility] Comment on above: Result Comment: ARNOLD GEMENT OF PATIENT CARE PER NURSING PROTOCOL Performed By: #### L 501.080 #### [facility] [address] [place], [address] FINGERSTICK GLU 214 mg/dL High [address] [place] [address] Comment on above: Result Comment: ARNOLD GEMENT OF PATIENT CARE PER NURSING PROTOCOL Performed By: #### L 501.080 #### [facility] [address] [place], [address] FINGERSTICK GLU 189 mg/dL High [address] [place] [address] Comment on above: Result Comment: ARNOLD GEMENT OF PATIENT CARE PER NURSING PROTOCOL Performed By: #### L 501.080 ####[facility] [address] [place], [address] FINGERSTICK GLU 161 mg/dL High [address] [place] [address] Comment on above: Result Comment: ARNOLD GEMENT OF PATIENT CARE PER NURSING PROTOCOL Performed By: #### L 501.080 #### [facility] [address] [place], [address] FINGERSTICK GLU 198 mg/dL High [address] [place] [address] Comment on above: Result Comment: ARNOLD GEMENT OF PATIENT CARE PER NURSING PROTOCOL Performed By: #### L 501.080 #### [facility] [address] [place], [address] FINGERSTICK GLU 328 mg/dL High 74-106 [facility] Comment on above: Result Comment: ARNOLD HAYWARD OF PATIENT CARE PER NURSING PROTOCOL Performed By: #### L 501.080 #### [facility] [address] [place], [address] Bilirubin, totalOrdered By: Roderick Laurent on 10-29-2024 Bilirubin [Mass/Vol] 0.60 mg/dL 0.20-1.00 [facility] Comment on above: For patients on eltr ombopag therapy, use of Dimension [place]aga TBIL is not recommended. Blood urea nitrogen (BUN)/cr eatinine ratioOrdered By: Roderick Laurent on 10-29-2024 Urea nitrogen/Creatinine [Mass ratio] 23.6 mg/mg High 10-20 [facility] CBC W/Diff, Automatedon 12-0 Absolute Lymph 0.93 X10 3/uL Normal 0.83-4.51 [facility] Comment on above: Performed By: #### L [id number], L100.0100 ####[facility] [address] [place], [address] Absolute Neut 3.8 X10 3/uL Normal 2.0-7.7 [facility] Comment on above: Performed By: #### L [id number], L100.0100 ####[facility] [address] [place], [address] Basophils/100 WBC (Bld) 0.7 % Normal 0-1 [facility] Comment on above: Performed By: #### L [id number], L100.0100 ####[facility] [address] [place], [address] Eosinophils/100 WBC (Bld) 3.5 % Normal 0-5 [facility] Comment on above: Performed By: #### L [id number], L100.0100 ####[facility] [address] [place], [address] Erythrocyte distribution width (RBC) [Ratio] 11.9 % Normal 11.6-14.6 [facility] Comment on above: Performed By: #### L 500.4050, L100.0100 ####[facility] [address] [place], [address] Hematocrit (Bld) [Volume fraction] 40.5 % Normal 40-54 [facility] Comment on above: Performed By: #### L 500.4050, L100.0100 ####[facility] [address] [place], [address] Hemoglobin (Bld) [Mass/Vol] 13.6 g/dL Normal 13.0-16.5 [facility] Comment on above: Performed By: #### L 500.4050, L100.0100 ####[facility] [address] [place], [address] IG% 0.200 Normal 0.0-0.9 [facility] Comment on above: Result Comment: IG% - Immature Granulocytes (promyelocytes, myelocytes and metamyelocytes) > 1% indicates that a LEFT SHIFT is Present. Performed By: #### L 500.4050, L100.0100 ####[facility] [address] [place], [address] Lymphocytes/100 WBC (Bld) 16.2 % Low 19-41 [facility] Comment on above: Performed By: #### L 500.4050, L100.0100 ####[facility] [address] [place], [address] MCH (RBC) [Entitic mass] 33.8 pg High 27.0-32.0 [facility] Comment on above: Performed By: #### L 500.4050, L100.0100 ####[facility] [address] [place], [address] MCHC (RBC) [Mass/Vol] 33.6 g/dL Normal 32-36 [facility] Comment on above: Performed By: #### L 500.4050, L100.0100 ####[facility] [address] [place], [address] MCV (RBC) [Entitic vol] 100.7 fL High 80-94 [facility] Comment on above: Performed By: #### L 500.4050, L100.0100 ####[facility] [address] [place], [address] Monocytes/100 WBC (Bld) 12.5 % High 0-10 [facility] Comment on above: Performed By: #### L 500.4050, L100.0100 ####[facility] [address] [place], [address] Neutrophils/100 WBC (Bld) 66.9 % Normal 47-70 [facility] Comment on above: Performed By: #### L 500.4050, L100.0100 ####[facility] [address] [place], [address] Nucleated RBC (Bld) [#/Vol] 0 10*3/uL Normal 0-5 [facility] Comment on above: Performed By: #### L 500.4050, L100.0100 ####[facility] [address] [place], [address] Platelet mean volume (Bld) [Entitic vol] 9.2 fL Normal 6.2-12.0 [facility] Comment on above: Performed By: #### L 500.4050, L100.0100 ####[facility] [address] [place], [address] Platelets (Bld) [#/Vol] 230 10*3/uL Normal 150-450 [facility] Comment on above: Performed By: #### L 500.4050, L100.0100 ####[facility] [address] [place], [address] RBC (Bld) [#/Vol] 4.02 10*6/uL Low 4.6-6.2 [facility] Comment on above: Performed By: #### L 500.4050, L100.0100 ####[facility] [address] [place], [address] RDW SD 44.6 fl High 35.1-43.9 [facility] Comment on above: Performed By: #### L 500.4050, L100.0100 ####[facility] [address] [place], [address] WBC (Bld) [#/Vol] 5.7 10*3/uL Normal 4.4-11.0 [facility] Comment on above: Performed By: #### L 500.4050, L100.0100 ####[facility] [address] [place], [address] Carbon dioxide measurementOr dered By: Roderick Laurent on 10-29-2024 CO2 [Moles/Vol] 26.0 mmol/L 21.0-32.0 [facility] Chloride measurementOrdered By: Roderick Laurent on 10-29-2024 Chloride [Moles/Vol] 105 mmol/L 98-107 [facility] Comprehensive Metabolic Prof ilon 10-29-2024 Albumin [Mass/Vol] 3.5 g/dL Normal 3.2-5.0 [facility] Comment on above: Performed By: #### L 501.080 #### [facility] [address] [place], [address] Albumin/Globulin [Mass ratio] 1.2 {ratio} Normal 0.9-2.4 [facility] Comment on above: Performed By: #### L 501.080 #### [facility] [address] [place], [address] ALK P 64 U/L Normal 45-117 [facility] Comment on above: Performed By: #### L 501.080 #### [facility] [address] [place], [address] ALT [Catalytic activity/Vol] 15 U/L Low 16-61 [facility] Comment on above: Performed By: #### L 501.080 #### [facility] [address] [place], [address] AST [Catalytic activity/Vol] 22 U/L Normal 15-37 [facility] Comment on above: Performed By: #### L 501.080 #### [facility] [address] [place], [address] Bilirubin [Mass/Vol] 0.60 mg/dL Normal 0.20-1.00 [facility] Comment on above: Result Comment: For patients on eltrombopag therapy, use of Dimension Baraga TBIL is not recommended. Performed By: #### L 501.080 #### [facility] [address] [place], [address] BUN/CRE 23.6 RATIO High 10-20 [facility] Comment on above: Performed By: #### L 501.080 #### [facility] [address] [place], [address] CA,Total 8.9 mg/dL Normal 8.5-10.1 [facility] Comment on above: Performed By: #### L 501.080 #### [facility] [address] [place], [address] Chloride [Moles/Vol] 105 mmol/L Normal 98-107 [facility] Comment on above: Performed By: #### L 501.080 #### [facility] [address] [place], [address] CO2 [Moles/Vol] 26.0 mmol/L Normal 21.0-32.0 [facility] Comment on above: Performed By: #### L 501.080 #### [facility] [address] [place], [address] Creatinine [Mass/Vol] 1.57 mg/dL High 0.70-1.30 [facility] Comment on above: Result Comment: The validity of the calculated GFR GFRAA in patients over 70 years has not been determined. Clinical correlation is essential. Performed By: #### L 501.080 #### [facility] [address] [place], [address] ECRCL 38.64 ml/min Normal [facility] Comment on above: Performed By: #### L 501.080 #### [facility] [address] [place], [address] EST GFR - AA 55 mL/min Low >60 [facility] Comment on above: Result Comment: Afri can Liberian GFR Calc Performed By: #### L 501.080 #### [facility] [address] [place], [address] GAP 7 Normal 5-15 [facility] Comment on above: Performed By: #### L 501.080 #### [facility] [address] [place], [address] GFR/1.73 sq M.predicted among non-blacks MDRD (S/P/Bld) [Vol rate/Area] 45 mL/min/{1.73_m2} Low >60 [facility] Comment on above: Result Comment: Non- GFR Calc Performed By: #### L 501.080 #### [facility] [address] [place], [address] Globulin (S) [Mass/Vol] 2.9 g/dL Normal 2.2-4.2 [facility] Comment on above: Performed By: #### L 501.080 #### [facility] [address] [place], [address] Glucose [Mass/Vol] 212 mg/dL High 74-106 [facility] Comment on above: Result Comment: Gluc ose result greater than or equal to 200 mg/dL suggests DIABETES MELLITUS per A.D.A. criteria. Performed By: #### L 501.080 #### [facility] [address] [place], [address] Potassium [Moles/Vol] 4.4 mmol/L Normal 3.5-5.1 [facility] Comment on above: Performed By: #### L 501.080 #### [facility] [address] [place], [address] Sodium [Moles/Vol] 138 mmol/L Normal 136-145 [facility] Comment on above: Performed By: #### L 501.080 #### [facility] [address] [place], [address] T PROT 6.4 g/dL Normal 6.4-8.2 [facility] Comment on above: Performed By: #### L 501.080 #### [facility] [address] [place], [address] Urea nitrogen [Mass/Vol] 37 mg/dL High 7-18 [facility] Comment on above: Performed By: #### L 501.080 #### [facility] [address] [place], [address] Eosinophil percentageOrdered By: Roderick Laurent on 10-29-2024 Eosinophils/100 WBC (Bld) 3.5 % 0-5 [facility] Erythrocyte distribution wid th (RBC) [Ratio]Ordered By: Roderick Laurent on 10-29-2024 Erythrocyte distribution width (RBC) [Entitic vol] 44.6 fL High 35.1-43.9 [facility] Erythrocyte distribution wid th ratioOrdered By: Roderick Laurent on 10-29-2024 Erythrocyte distribution width (RBC) [Ratio] 11.9 % 11.6-14.6 [facility] Estimated glomerular filtrat ion rate (GFR) AmericanOrdered By: Roderick Laurent on 10-29-2024 Estimated GFR (MDRD) Amer 55 mL/min Low >60 [facility] Comment on above: GFR Calc Estimation of creatinine chapito aranceOrdered By: Roderick Laurent on 10-29-2024 Estimated Creatinine Clearance Calc 38.64 ml/min [facility] Glomerular filtration rate ( GFR) estimationOrdered By: Roderick Laurent on 10-29-2024 Estimated GFR (MDRD) Non-Af Amer 45 mL/min Low >60 [facility] Comment on above: Non- GFR Calc Glucose measurementOrdered B y: Roderick Laurent on 10-29-2024 Glucose [Mass/Vol] 212 mg/dL High 74-106 [facility] Comment on above: Glucose result great er than or equal to 200 mg/dLsuggests DIABETES MELLITUS per A.D.A. criteria. Hematocrit Auto (Bld) [Volum e fraction]Ordered By: Roderick Laurent on 10-29-2024 Hematocrit (Bld) [Volume fraction] 40.5 % 40-54 [facility] Hemoglobin measurementOrdere d By: Roderick Laurent on 10-29-2024 Hemoglobin (Bld) [Mass/Vol] 13.6 g/dL 13.0-16.5 [facility] Immature granulocytes/100 WB C Auto (Bld)Ordered By: Roderick Laurent on 10-29-2024 Immature granulocytes/100 WBC (Bld) 0.200 % 0.0-0.9 [facility] Comment on above: IG% - Immature Granu locytes (promyelocytes, myelocytes and metamyelocytes) > 1% indicates that a LEFT SHIFT is Present. Laboratory - Chemistry and C hemistry - challengeOrdered By: Roderick Laurent on 10-29-2024 AST [Catalytic activity/Vol] 22 U/L 15-37 [facility] Lymphocytes Auto (Unsp spec) [#/Vol]Ordered By: Roderick Laurent on 10-29-2024 Lymphocytes (Bld) [#/Vol] 0.93 10*3/uL 0.83-4.51 [facility] Lymphocytes/100 WBC Auto (Un sp spec)Ordered By: Roderick Laurent on 10-29-2024 Lymphocytes/100 WBC (Bld) 16.2 % Low 19-41 [facility] MCV (mean corpuscular volume ) determinationOrdered By: Roderick Laurent on 10-29-2024 MCV (RBC) [Entitic vol] 100.7 fL High 80-94 [facility] Mean corpuscular hemoglobin (MCH) determinationOrdered By: Roderick Laurent on 10-29-2024 MCH (RBC) [Entitic mass] 33.8 pg High 27.0-32.0 [facility] Mean corpuscular hemoglobin concentration (MCHC) determinationOrdered By: Roderick Laurent on 10-29-2024 MCHC (RBC) [Mass/Vol] 33.6 g/dL 32-36 [facility] Mean platelet volume determi nationOrdered By: Roderick Laurent on 10-29-2024 Platelet mean volume (Bld) [Entitic vol] 9.2 fL 6.2-12.0 [facility] Monocyte percentageOrdered B y: Roderick Laurent on 10-29-2024 Monocytes/100 WBC (Bld) 12.5 % High 0-10 [facility] Neutrophil percentageOrdered By: Roderick Laurent on 10-29-2024 Neutrophils/100 WBC (Bld) 66.9 % 47-70 [facility] Nucleated red blood cell per centageOrdered By: Roderick Laurent on 10-29-2024 Nucleated RBC/100 WBC (Bld) [Ratio] 0 % 0-5 [facility] Platelet countOrdered By: Marilu Laurent on 10-29-2024 Platelets (Bld) [#/Vol] 230 10*3/uL 150-450 [facility] Potassium measurementOrdered By: Roderick Laurent on 10-29-2024 Potassium [Moles/Vol] 4.4 mmol/L 3.5-5.1 [facility] RBC Auto (Bld) [#/Vol]Ordere d By: Roderick Laurent on 10-29-2024 RBC (Bld) [#/Vol] 4.02 10*6/uL Low 4.6-6.2 [facility] Serum anion gap measurementO rdered By: Roderick Laurent on 10-29-2024 Anion gap [Moles/Vol] 7 mmol/L 5-15 [facility] Serum globulin measurementOr dered By: Roderick Laurent on 10-29-2024 Globulin (S) [Mass/Vol] 2.9 g/dL 2.2-4.2 [facility] Serum or plasma alanine nix otransferase (ALT) measurementOrdered By: Roderick Laurent on 10-29-2024 ALT [Catalytic activity/Vol] 15 U/L Low 16-61 [facility] Serum or plasma albumin jesenia urement (mass/volume)Ordered By: Roderick Laurent on 10-29-2024 Albumin [Mass/Vol] 3.5 g/dL 3.2-5.0 [facility] Serum or plasma alkaline radha sphatase measurementOrdered By: Roderick Laurent on 10-29-2024 ALP [Catalytic activity/Vol] 64 U/L 45-117 [facility] Serum or plasma calcium jesenia urement (mass/volume)Ordered By: Roderick Laurent on 10-29-2024 Calcium [Mass/Vol] 8.9 mg/dL 8.5-10.1 [facility] Serum or plasma creatinine m easurement (mass/volume)Ordered By: Roderick Laurent on 10-29-2024 Creatinine [Mass/Vol] 1.57 mg/dL High 0.70-1.30 [facility] Comment on above: The validity of the calculated GFR & GFRAA in patients over 70 years has not been determined. Clinical correlation is essential. Serum or plasma urea nitroge n measurement (mass/volume)Ordered By: Roderick Laurent on 10-29-2024 Urea nitrogen [Mass/Vol] 37 mg/dL High 7-18 [facility] Sodium levelOrdered By: Roderick Laurent on 10-29-2024 Sodium [Moles/Vol] 138 mmol/L 136-145 [facility] Total proteinOrdered By: Katie Laurent on 10-29-2024 Protein [Mass/Vol] 6.4 g/dL 6.4-8.2 [facility] White blood cell (WBC) count Ordered By: Roderick Laurent on 10-29-2024 WBC (Bld) [#/Vol] 5.7 10*3/uL 4.4-11.0 [facility] Bedside Glucoseon 10-28-2024 FINGERSTICK GLU 191 mg/dL High 74-106 [facility] Comment on above: Result Comment: ARNOLD GEMENT OF PATIENT CARE PER NURSING PROTOCOL Performed By: #### L 501.080 #### [facility] [address] [place], [address] FINGERSTICK GLU 130 mg/dL High 74-106 [facility] Comment on above: Result Comment: ARNOLD GEMENT OF PATIENT CARE PER NURSING PROTOCOL Performed By: #### L 501.080 #### [facility] [address] [place], [address] FINGERSTICK GLU 204 mg/dL High 74-106 [facility] Comment on above: Result Comment: ARNOLD GEMENT OF PATIENT CARE PER NURSING PROTOCOL Performed By: #### L 501.080 #### [facility] [address] [place], [address] CBC W/Diff, Automatedon 12- Absolute Lymph 1.02 X10 3/uL Normal 0.83-4.51 [facility] Comment on above: Performed By: #### L 100.0100, L500.4050, L501.9520 #### [facility] [address] [place], [address] Absolute Neut 3.9 X10 3/uL Normal 2.0-7.7 [facility] Comment on above: Performed By: #### L 100.0100, L500.4050, L501.9520 #### [facility] [address] [place], [address] Basophils/100 WBC (Bld) 0.5 % Normal 0-1 [facility] Comment on above: Performed By: #### L 100.0100, L500.4050, L501.9520 #### [facility] [address] [place], [address] Eosinophils/100 WBC (Bld) 3.0 % Normal 0-5 [facility] Comment on above: Performed By: #### L 100.0100, L500.4050, L501.9520 #### [facility] [address] [place], [address] Erythrocyte distribution width (RBC) [Ratio] 11.8 % Normal 11.6-14.6 [facility] Comment on above: Performed By: #### L 100.0100, L500.4050, L501.9520 #### [facility] [address] [place], [address] Hematocrit (Bld) [Volume fraction] 40.0 % Normal 40-54 [facility] Comment on above: Performed By: #### L 100.0100, L500.4050, L501.9520 #### [facility] [address] [place], [address] Hemoglobin (Bld) [Mass/Vol] 13.5 g/dL Normal 13.0-16.5 [facility] Comment on above: Performed By: #### L 100.0100, L500.4050, L501.9520 #### [facility] [address] [place], [address] IG% 0.300 Normal 0.0-0.9 [facility] Comment on above: Result Comment: IG% - Immature Granulocytes (promyelocytes, myelocytes and metamyelocytes) > 1% indicates that a LEFT SHIFT is Present. Performed By: #### L 100.0100, L500.4050, L501.9520 #### [facility] [address] [place], [address] Lymphocytes/100 WBC (Bld) 17.2 % Low 19-41 [facility] Comment on above: Performed By: #### L 100.0100, L500.4050, L501.9520 #### [facility] [address] [place], [address] MCH (RBC) [Entitic mass] 33.4 pg High 27.0-32.0 [facility] Comment on above: Performed By: #### L 100.0100, L500.4050, L501.9520 #### [facility] [address] [place], [address] MCHC (RBC) [Mass/Vol] 33.8 g/dL Normal 32-36 [facility] Comment on above: Performed By: #### L 100.0100, L500.4050, L501.9520 #### [facility] [address] [place], [address] MCV (RBC) [Entitic vol] 99.0 fL High 80-94 [facility] Comment on above: Performed By: #### L 100.0100, L500.4050, L501.9520 #### [facility] [address] [place], [address] Monocytes/100 WBC (Bld) 13.9 % High 0-10 [facility] Comment on above: Performed By: #### L 100.0100, L500.4050, L501.9520 #### [facility] [address] [place], [address] Neutrophils/100 WBC (Bld) 65.1 % Normal 47-70 [facility] Comment on above: Performed By: #### L 100.0100, L500.4050, L501.9520 #### [facility] [address] [place], [address] Nucleated RBC (Bld) [#/Vol] 0 10*3/uL Normal 0-5 [facility] Comment on above: Performed By: #### L 100.0100, L500.4050, L501.9520 #### [facility] [address] [place], [address] Platelet mean volume (Bld) [Entitic vol] 9.4 fL Normal 6.2-12.0 [facility] Comment on above: Performed By: #### L 100.0100, L500.4050, L501.9520 #### [facility] [address] [place], [address] Platelets (Bld) [#/Vol] 251 10*3/uL Normal 150-450 [facility] Comment on above: Performed By: #### L 100.0100, L500.4050, [id number] #### [facility] [address] [place], [address] RBC (Bld) [#/Vol] 4.04 10*6/uL Low 4.6-6.2 [facility] Comment on above: Performed By: #### L 100.0100, L500.4050, [id number] #### [facility] [address] [place], [address] RDW SD 43.0 fl Normal 35.1-43.9 [facility] Comment on above: Performed By: #### L 100.0100, L500.4050, [id number] #### [facility] [address] [place], [address] WBC (Bld) [#/Vol] 5.9 10*3/uL Normal 4.4-11.0 [facility] Comment on above: Performed By: #### L 100.0100, L500.4050, L501.9520 #### [facility] [address] [place], [address] Comprehensive Metabolic Prof ilon 10-28-2024 Albumin [Mass/Vol] 3.6 g/dL Normal 3.2-5.0 [facility] Comment on above: Performed By: #### L 100.0100, L500.4050, [id number] #### [facility] [address] [place], [address] Albumin/Globulin [Mass ratio] 1.1 {ratio} Normal 0.9-2.4 [facility] Comment on above: Performed By: #### L 100.0100, L500.4050, [id number] #### [facility] [address] [place], [address] ALK P 68 U/L Normal 45-117 [facility] Comment on above: Performed By: #### L 100.0100, L500.4050, [id number] #### [facility] [address] [place], [address] ALT [Catalytic activity/Vol] 24 U/L Normal 16-61 [facility] Comment on above: Performed By: #### L 100.0100, L500.4050, [id number] #### [facility] [address] [place], [address] AST [Catalytic activity/Vol] 25 U/L Normal 15-37 [facility] Comment on above: Performed By: #### L 100.0100, L500.4050, [id number] #### [facility] [address] [place], [address] Bilirubin [Mass/Vol] 1.00 mg/dL Normal 0.20-1.00 [facility] Comment on above: Result Comment: For patients on eltrombopag therapy, use of Dimension [place] TBIL is not recommended. Performed By: #### L 100.0100, L500.4050, L501.9520 #### [facility] [address] [place], [address] BUN/CRE 16.7 RATIO Normal 10-20 [facility] Comment on above: Performed By: #### L 100.0100, L500.4050, [id number] #### [facility] [address] [place], [address] CA,Total 8.7 mg/dL Normal 8.5-10.1 [facility] Comment on above: Performed By: #### L 100.0100, L500.4050, [id number] #### [facility] [address] [place], [address] Chloride [Moles/Vol] 105 mmol/L Normal 98-107 [facility] Comment on above: Performed By: #### L 100.0100, L500.4050, [id number] #### [facility] [address] [place], [address] CO2 [Moles/Vol] 23.0 mmol/L Normal 21.0-32.0 [facility] Comment on above: Performed By: #### L 100.0100, L500.4050, [id number] #### [facility] [address] [place], [address] Creatinine [Mass/Vol] 1.20 mg/dL Normal 0.70-1.30 [facility] Comment on above: Result Comment: The validity of the calculated GFR GFRAA in patients over 70 years has not been determined. Clinical correlation is essential. Performed By: #### L 100.0100, L500.4050, L501.9520 #### [facility] [address] [place], [address] ECRCL 50.55 ml/min Normal [facility] Comment on above: Performed By: #### L 100.0100, L500.4050, [id number] #### [facility] [address] [place], [address] EST GFR - AA 74 mL/min Normal >60 [facility] Comment on above: Result Comment: Afri can [place] GFR Calc Performed By: #### L 100.0100, L500.4050, [id number] #### [facility] [address] [place], [address] GAP 8 Normal 5-15 [facility] Comment on above: Performed By: #### L 100.0100, L500.4050, [id number] #### [facility] [address] [place], [address] GFR/1.73 sq M.predicted among non-blacks MDRD (S/P/Bld) [Vol rate/Area] 62 mL/min/{1.73_m2} Normal >60 [facility] Comment on above: Result Comment: Non- GFR Calc Performed By: #### L 100.0100, L500.4050, L501.9520 #### [facility] [address] [place], [address] Globulin (S) [Mass/Vol] 3.3 g/dL Normal 2.2-4.2 [facility] Comment on above: Performed By: #### L 100.0100, L500.4050, [id number] #### [facility] [address] [place], [address] Glucose [Mass/Vol] 130 mg/dL High 74-106 [facility] Comment on above: Result Comment: Fast ing Glucose result greater than or equal to 126 mg/dL suggests DIABETES MELLITUS per A.D.A. criteria. Performed By: #### L 100.0100, L500.4050, L501.9520 #### [facility] [address] [place], [address] Potassium [Moles/Vol] 3.9 mmol/L Normal 3.5-5.1 [facility] Comment on above: Performed By: #### L 100.0100, L500.4050, [id number] #### [facility] [address] [place] [place], [address] Sodium [Moles/Vol] 136 mmol/L Normal 136-145 [facility] Comment on above: Performed By: #### L 100.0100, L500.4050, L501.9520 #### [facility] [address] [place], [address] T PROT 6.9 g/dL Normal 6.4-8.2 [facility] Comment on above: Performed By: #### L 100.0100, L500.4050, L501.9520 #### [facility] [address] [place], [address] Urea nitrogen [Mass/Vol] 20 mg/dL High 7-18 [facility] Comment on above: Performed By: #### L 100.0100, L500.4050, L501.9520 #### [facility] [address] [place], [address] Culture, Anaerobic Any Sourc adrianna 10-28-2024 CUAN List Antibiotics Las t 48 Hours? NONE List Antibiotics to be Started? NONE No anaerobic bacteria isolated. Normal [facility] Comment on above: Performed By: #### M 100.4001, M100.3000, M100.2000 ####[facility] [address] [place], [address] TSH QnOrdered By: Sulma maxwell on 10-28-2024 Thyroid Stimulating Hormone (TSH) 4.070 uIU/mL High 0.358-3.740 [facility] Thyroid Stim Hormone (TSH)on 10-28-2024 TSH 4.070 uIU/mL High 0.358-3.740 [facility] Comment on above: Performed By: #### L 100.0100, L500.4050, L501.9520 #### [facility] [address] [place], [address] Urine Cultureon 10-28-2024 URC Mixed Gram Pos Gram Neg Org Annona Count 11,000-25,000 MIXC Mixed contaminants. Submit a new specimen if indicated. Normal [facility] Comment on above: Performed By: #### M 100.3210 ####[facility] [address] [place], [address] 12 Lead EKGon 10-27-2024 12 Lead EKG [facility] Cardiovascular Services [address] [place] [address] 12 Lead EKG 10/27/24 1027 MR#: [id number] Acct: [id number] Name: FLEX KLINE Rep #: [id number] : 1940 84 From: Garfield Thornton MD Attending Dr: Dr. Rodeirck Laurent DO Status: A DM IN Ordering Dr: Velasquez Morales DO Date: 4 [place] [facility] Sex: M C Admitted: 10/27/24 Test [...] Otherwise normal ECG Confirmed by Garfield Thornton ([id number]), assistant film editor ERROL AIKEN ([id number]) on 10/30/2024 6:53:52 AM Referred By: Confirmed By: Garfield Thornton 10/30/24 0653 Date Garfield Thornton MD CC: Dr. Velasquez Morales DO; Dr. Roderick Laurent DO; Dr. Felix Montelongo MD Signed Normal [facility] BNP (brain natriuretic pepti de measurement)Ordered By: Velasquez Morales on 10-27-2024 Natriuretic peptide B (Bld) [Mass/Vol] 133.8 pg/mL High 0-100 [facility] BNP,B-Type NATRIURETIC PEPTI Camryn 10-27-2024 Natriuretic peptide B (Bld) [Mass/Vol] 133.8 pg/mL High 0-100 [facility] Comment on above: Performed By: #### L 501.080 #### [facility] [address] [place], [address] Basic Metabolic Profile (BMP )on 10-27-2024 BUN/CRE 17.1 RATIO Normal 10-20 [facility] Comment on above: Order Comment: 1Y Performed By: #### L 501.080 #### [facility] [address] [place], [address] CA,Total 9.2 mg/dL Normal 8.5-10.1 [facility] Comment on above: Order Comment: 1Y Performed By: #### L 501.080 #### [facility] [address] [place], [address] Chloride [Moles/Vol] 100 mmol/L Normal 98-107 [facility] Comment on above: Order Comment: 1Y Performed By: #### L 501.080 #### [facility] [address] [place], [address] CO2 [Moles/Vol] 27.0 mmol/L Normal 21.0-32.0 [facility] Comment on above: Order Comment: 1Y Performed By: #### L 501.080 #### [facility] [address] [place], [address] Creatinine [Mass/Vol] 1.46 mg/dL High 0.70-1.30 [facility] Comment on above: Order Comment: 1Y Result Comment: The validity of the calculated GFR GFRAA in patients over 70 years has not been determined. Clinical correlation is essential. Performed By: #### L 501.080 #### [facility] [address] [place], [address] ECRCL 41.55 ml/min Normal [facility] Comment on above: Order Comment: 1Y Performed By: #### L 501.080 #### [facility] [address] [place], [address] EST GFR - AA 59 mL/min Low >60 [facility] Comment on above: Order Comment: 1Y Result Comment: Afri can Liberian GFR Calc Performed By: #### L 501.080 #### [facility] [address] [place], [address] GAP 7 Normal 5-15 [facility] Comment on above: Order Comment: 1Y Performed By: #### L 501.080 #### [facility] [address] [place], [address] GFR/1.73 sq M.predicted among non-blacks MDRD (S/P/Bld) [Vol rate/Area] 49 mL/min/{1.73_m2} Low >60 [facility] Comment on above: Order Comment: 1Y Result Comment: Non- GFR Calc Performed By: #### L 501.080 #### [facility] [address] [place], [address] Glucose [Mass/Vol] 158 mg/dL High 74-106 [facility] Comment on above: Order Comment: 1Y Result Comment: Fast ing Glucose result greater than or equal to 126 mg/dL suggests DIABETES MELLITUS per A.D.A. criteria. Performed By: #### L 501.080 #### [facility] [address] [place], [address] Potassium [Moles/Vol] 4.4 mmol/L Normal 3.5-5.1 [facility] Comment on above: Order Comment: 1Y Result Comment: Mode rate Hemolysis, Result may be falsely increased. Performed By: #### L 501.080 #### [facility] [address] [place], [address] Sodium [Moles/Vol] 133 mmol/L Low 136-145 [facility] Comment on above: Order Comment: 1Y Performed By: #### L 501.080 #### [facility] [address] [place], [address] Urea nitrogen [Mass/Vol] 25 mg/dL High 7-18 [facility] Comment on above: Order Comment: 1Y Performed By: #### L 501.080 #### [facility] [address] [place], [address] Bedside Glucoseon 10-27-2024 FINGERSTICK GLU 100 mg/dL Normal 74-106 [facility] Comment on above: Result Comment: ARNOLD HAYWARD OF PATIENT CARE PER NURSING PROTOCOL Performed By: #### L 501.080 #### [facility] [address] [place], [address] Bilirubin Test strip Ql (U)O rdered By: Velasquez Morales on 10-27-2024 Bilirubin Ql (U) Negative Negative [facility] CBC W/Diff, Automatedon 12-0 Absolute Neut Normal 2.0-7.7 [facility] Comment on above: Result Comment: Canc elled via OM: MD Ordered Performed By: #### L 501.080 #### [facility] [address] [place], [address] HCT Normal 40-54 [facility] Comment on above: Result Comment: Canc elled via OM: MD Ordered Performed By: #### L 501.080 #### [facility] [address] [place], [address] HGB Normal 13.0-16.5 [facility] Comment on above: Result Comment: James elled via OM: Ordered Performed By: #### L 501.080 #### [facility] [address] [place], [address] MCH Normal 27.0-32.0 [facility] Comment on above: Result Comment: Canc elled via OM: MD Ordered Performed By: #### L 501.080 #### [facility] [address] [place], [address] MCHC Normal 32-36 [facility] Comment on above: Result Comment: Canc elled via OM: MD Ordered Performed By: #### L 501.080 #### [facility] [address] [place], [address] MCV Normal 80-94 [facility] Comment on above: Result Comment: Canc elled via OM: MD Ordered Performed By: #### L 501.080 #### [facility] [address] [place], [address] NEUT% Normal 47-70 [facility] Comment on above: Result Comment: Canc elled via OM: MD Ordered Performed By: #### L 501.080 #### [facility] [address] [place], [address] PLT Normal 150-450 [facility] Comment on above: Result Comment: Canc elled via OM: MD Ordered Performed By: #### L 501.080 #### [facility] [address] [place], [address] RBC Normal 4.6-6.2 [facility] Comment on above: Result Comment: Canc elled via OM: MD Ordered Performed By: #### L 501.080 #### [facility] [address] [place], [address] RDW CV Normal 11.6-14.6 [facility] Comment on above: Result Comment: Canc elled via OM: MD Ordered Performed By: #### L 501.080 #### [facility] [address] [place], [address] RDW SD Normal 35.1-43.9 [facility] Comment on above: Result Comment: Canc elled via OM: MD Ordered Performed By: #### L 501.080 #### [facility] [address] [place], [address] WBC Normal 4.4-11.0 [facility] Comment on above: Result Comment: Canc elled via OM: MD Ordered Performed By: #### L 501.080 #### [facility] [address] [place], [address] Absolute Lymph 0.82 X10 3/uL Low 0.83-4.51 [facility] Comment on above: Performed By: #### L 501.080 #### [facility] [address] [place], [address] Absolute Neut 4.3 X10 3/uL Normal 2.0-7.7 [facility] Comment on above: Performed By: #### L 501.080 #### [facility] [address] [place], [address] Basophils/100 WBC (Bld) 0.7 % Normal 0-1 [facility] Comment on above: Performed By: #### L 501.080 #### [facility] [address] [place], [address] Eosinophils/100 WBC (Bld) 2.2 % Normal 0-5 [facility] Comment on above: Performed By: #### L 501.080 #### [facility] [address] [place], [address] Erythrocyte distribution width (RBC) [Ratio] 11.9 % Normal 11.6-14.6 [facility] Comment on above: Performed By: #### L 501.080 #### [facility] [address] [place], [address] Hematocrit (Bld) [Volume fraction] 41.5 % Normal 40-54 [facility] Comment on above: Performed By: #### L 501.080 #### [facility] [address] [place], [address] Hemoglobin (Bld) [Mass/Vol] 14.6 g/dL Normal 13.0-16.5 [facility] Comment on above: Performed By: #### L 501.080 #### [facility] [address] [place], [address] IG% 0.300 Normal 0.0-0.9 [facility] Comment on above: Result Comment: IG% - Immature Granulocytes (promyelocytes, myelocytes and metamyelocytes) > 1% indicates that a LEFT SHIFT is Present. Performed By: #### L 501.080 #### [facility] [address] [place], [address] Lymphocytes/100 WBC (Bld) 14.1 % Low 19-41 [facility] Comment on above: Performed By: #### L 501.080 #### [facility] [address] [place], [address] MCH (RBC) [Entitic mass] 34.9 pg High 27.0-32.0 [facility] Comment on above: Performed By: #### L 501.080 #### [facility] [address] [place], [address] MCHC (RBC) [Mass/Vol] 35.2 g/dL Normal 32-36 [facility] Comment on above: Performed By: #### L 501.080 #### [facility] [address] [place], [address] MCV (RBC) [Entitic vol] 99.3 fL High 80-94 [facility] Comment on above: Performed By: #### L 501.080 #### [facility] [address] [place], [address] Monocytes/100 WBC (Bld) 9.3 % Normal 0-10 [facility] Comment on above: Performed By: #### L 501.080 #### [facility] [address] [place], [address] Neutrophils/100 WBC (Bld) 73.4 % High 47-70 [facility] Comment on above: Performed By: #### L 501.080 #### [facility] [address] [place], [address] Nucleated RBC (Bld) [#/Vol] 0 10*3/uL Normal 0-5 [facility] Comment on above: Performed By: #### L 501.080 #### [facility] [address] [place], [address] Platelet mean volume (Bld) [Entitic vol] 9.6 fL Normal 6.2-12.0 [facility] Comment on above: Performed By: #### L 501.080 #### [facility] [address] [place], [address] Platelets (Bld) [#/Vol] 256 10*3/uL Normal 150-450 [facility] Comment on above: Performed By: #### L 501.080 #### [facility] [address] [place], [address] RBC (Bld) [#/Vol] 4.18 10*6/uL Low 4.6-6.2 [facility] Comment on above: Performed By: #### L 501.080 #### [facility] [address] [place], [address] RDW SD 43.4 fl Normal 35.1-43.9 [facility] Comment on above: Performed By: #### L 501.080 #### [facility] [address] [place], [address] WBC (Bld) [#/Vol] 5.8 10*3/uL Normal 4.4-11.0 [facility] Comment on above: Performed By: #### L 501.080 #### [facility] [address] [place], [place], [address] Chest 1 View (Portable)on Chest 1 View (Portable) [facility] Imaging Services [address] [place] [address] Chest 1 View (Portable) MR#: [id number] Acct: [id number] Name: FLEX KLINE Rep #: [id number] : 1940 M 84 From: Clint Freire MD PCP: Dr. Felix Montelongo MD Status: PRE ER Study: Chest 1 View (Portable) Date of Exam: 10/27/24 Exam# [id number] Ordering Dr: [place] [id number] STUDY: X-RAY CHEST REASON FOR EXAM: Male, [...] Velasquez Morales DO; Dr. 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 Normal [facility] D-Dimer Quantitative (DVT/PE )on 10-27-2024 D-DIMER QUANT 0.50 FEU/ug/m High 0.27-0.49 [facility] Comment on above: Order Comment: CRITI SHIN VALUE CALLED TO TROY EZAREJH03/06/24 1225 Cat Thong.RESULTS READ BACK BY SAME. Result Comment: D-Di augusta ELEVATED (>0.49): Additional studies and clinical assessments are indicated to conclude diagnosis of: Deep Vein Thrombosis (DVT) or Pulmonary Embolism (PE) Performed By: #### L 501.080 #### [facility] [address], [address] D-dimer measurement for deep venous thrombosisOrdered By: Velasquez Morales on 10-27-2024 D-Dimer Quantitative (PE/DVT) 0.50 FEU/ug/m High 0.27-0.49 [facility] Comment on above: D-Dimer ELEVATED (>0 .49): Additional studies and clinicalassessments are indicated to conclude diagnosis of:Deep Vein Thrombosis (DVT) or Pulmonary Embolism (PE) Echo Complete W/ Contraston 10-27-2024 Echo Complete W/ Contrast [facility] Cardiovascular Services [address] [facility] [place] [address] Echo Complete W/ Contrast 10/28/24 0814 MR#: [id number] Acct: [id number] Name: FLEX KLINE Rep #: [id number] : 1940 84 From: Angela Ramirez MD Attending Dr: Dr. Roderick Laurent DO Status: A DM IN Ordering Dr: Sulma Romero MD Date: 10/27/24 [place] [facility] [place] Sex: M C Admitted: 10/27/24 Reason For [...] Sulma Romero Performed By: Velasquez Cox RCS 10/28/241446 Date Angela Ramirez MD CC: Dr. Roderick Laurent DO; Dr. Sulma Romero MD; Dr. Felix Montelongo MD Date Dictated: 10/28/24813 Date Transcribed: 10/28/241446 Signs And Displays Salesperson: Signed Normal [facility] Emergency Department Summary on 10-27-2024 Emergency Department Summary [facility] Medical Records Department [address] [place] [address] Emergency Department Summary 10/27/24 MR#: [id number] Acct: [id number] Name: FLEX KLINE Rep #: [id number] : 1940 84 From: Velasquez Morales DO PCP: Dr. Felix Montelongo MD Status:ADM IN Location: MS3 [id number] HPI History of Present Illness Chief Complaint: [...] intact Psych: Cooperative, appropriate mood and affect [facility] Medical History (Reviewed 10/27/24 @ 12:55 by Rita Calixto VETERINARY EPIDEMIOLOGIST, VETERINARY EPIDEMIOLOGIST-C) Diabetes GERD (gastroesophageal reflux disease) Cataract 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 heart disease of [place] coronary artery without angina pectoris Parkinson's disease [...] (Reviewed 10/27/24 @ 12:55 by Rita Calixto VETERINARY EPIDEMIOLOGIST, VETERINARY EPIDEMIOLOGIST-C) Mother Alzheimer's dementia Diabetes Father CAD (coronary artery disease) Heart disease Brother CAD (coron (more content not included)... Normal [facility] Epithelial cells.squamous LM Ql (Urine sed)Ordered By: Velasquez Morales on 10-27-2024 Epithelial cells.squamous LM.HPF (Urine sed) [#/Area] 0 /[HPF] 0-5 [facility] Glucose Ql (U)Ordered By: Korey Morales on 10-27-2024 Glucose (U) [Mass/Vol] 1000 mg/dL High Normal [facility] H AND P Exam - Hospitaliston 10-27-2024 H&P Exam - Hospitalist [facility] Medical Records Department [address] [place] [address] H P Exam - Hospitalist 10/27/24 1633 MR#: [id number] Acct: [id number] Name: FLEX KLINE Rep #: [id number] : 1940 84 From: Sulma Romero MD PCP: Dr. Felix Montelongo MD Status:ADM IN Location: [facility] [place] [id number] HPI - General General Date of Admission: 10/27/24 Date of Service: 10/27/24 Chief Complaint: Weakness, CP, SOB HPI Narrative FLEX KLINE, is a 84-year-old male history of CKD, Parkinson's, CAD, BPH, diabetes, hypothyroidism presented [facility] ED 10/27/2024 with shortness of [...] notice any change with exertion or rest. [facility] Medical History Diabetes GERD (gastroesophageal reflux disease) Cataract 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 heart disease of [place] coronary artery without angina pectoris Parkinson's disease [...] 81 mg tablet,delayed 81 mg PO DAILY@0800 [facility] 07/28/18 07/28/18 06:00 History release nitroglycerin 0.4 [...] (Reviewed 10/27/24 @ 12:55 by Rita Calixto VETERINARY EPIDEMIOLOGIST, VETERINARY EPIDEMIOLOGIST-C) Mother Alzheimer's dementia Diabetes Father CAD (coronary artery disease) Heart disease Brother CAD (coronary artery disease) Daughter Arthritis Surgical History 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 Normal [facility] Influenza virus A and B and SARS-CoV-2 (COVID-19) and Respiratory syncytial virus RNAOrdered By: Velasquez Morales on 10-27-2024 SARS-CoV-2 (COVID-19) RNA ROSIE+probe Ql (Unsp spec) [facility] Ketones Test strip Ql (U)Ord ered By: Velasquez Morales on 10-27-2024 Ketones Ql (U) 5 mg/dl High Negative [facility] L501.4020on 10-27-2024 TROPONIN-I HS 9 pg/mL Normal 3.0-78.0 [facility] Comment on above: Result Comment: Plea se Note: New Test Units and Gender Specific Reference Ranges. For more information see Policy Stat Procedure [place] High Sensitivity Troponin (TNIH) and attachments. Performed By: #### L 501.4020 #### [facility] [address] [place], [address] L501.5425on 10-27-2024 TROPONIN-I HS 8 pg/mL Normal 3.0-78.0 [facility] Comment on above: Order Comment: 1Y Result Comment: Plea se Note: New Test Units and Gender Specific Reference Ranges. For more information see Policy Stat Procedure [place] High Sensitivity Troponin (TNIH) and attachments. Performed By: #### L 501.080 #### [facility] [address] [place], [address] M100.678on 10-27-2024 M100.678 Pending SARS-CoV-2 (COVID 19) Negative INFLUENZA A Negative INFLUENZA B Negative RSV PCR Negative Normal [facility] Comment on above: Performed By: #### M 100.678, L400.0001 ####[facility] [address] [place], [address] Magnesiumon 10-27-2024 Magnesium [Mass/Vol] 2.2 mg/dL Normal 1.6-2.6 [facility] Comment on above: Performed By: #### L 501.080 #### [facility] [address] [place], [address] Magnesium measurementOrdered By: Velasquez Morales on 10-27-2024 Magnesium [Mass/Vol] 2.2 mg/dL 1.6-2.6 [facility] Microscopic analysis of urin e for red blood cells (RBC)Ordered By: Velasquez Morales on 10-27-2024 Urine RBC 0 SEEN /hpf 0-5 [facility] Mucus LM Ql (Urine sed)Order ed By: Velasquez Morales on 10-27-2024 Mucus Ql (Urine sed) 0 SEEN /hpf [facility] Nitrite Test strip Ql (U)Ord ered By: Velasquezsandeep Morales on 10-27-2024 Nitrite Ql (U) Negative Negative [facility] Protein Test strip Ql (U)Ord ered By: Velasquez Morales on 10-27-2024 Protein Ql (U) 30 mg/dl High Negative [facility] Thyroid Stim Hormone (TSH)on 10-27-2024 TSH 2.580 uIU/mL Normal 0.358-3.740 [facility] Comment on above: Performed By: #### L 501.080 #### [facility] [address] [place], [address] Troponin IOrdered By: Velasquez Morales on 10-27-2024 Troponin I High Sensitivity 9 pg/mL 3.0-78.0 [facility] Comment on above: Please Note: New Luz Elena t Units and Gender Specific Reference Ranges. For more information see Policy Stat Procedure [place] High Sensitivity Troponin (TNIH) and attachments. Urinalysis, Completeon 10-27 BACTERIA 1+ /hpf Normal None Seen [facility] Comment on above: Order Comment: CLEAN CATCH Performed By: #### M 100.678, L400.0001 ####[facility] [address] [place], [address] WBC 10-25 SEEN Normal 0-5 [facility] Comment on above: Order Comment: CLEAN CATCH Performed By: #### M 100.678, L400.0001 ####[facility] [address] [place], [address] BILIRUBIN URINE Negative Normal Negative [facility] Comment on above: Order Comment: CLEAN CATCH Performed By: #### M 100.678, L400.0001 ####[facility] [address] [place], [address] Clarity (U) Clear Normal Clear [facility] Comment on above: Order Comment: CLEAN CATCH Performed By: #### M 100.678, L400.0001 ####[facility] [address] [place], [address] Color (U) Straw Normal Yellow [facility] Comment on above: Order Comment: CLEAN CATCH Performed By: #### M 100.678, L400.0001 ####[facility] [address] [place], [address] GLUCOSE, UR 1000 mg/dl Abnormal Normal [facility] Comment on above: Order Comment: CLEAN CATCH Performed By: #### M 100.678, L400.0001 ####[facility] [address] [place], [address] KETONE UR 5 mg/dl Abnormal Negative [facility] Comment on above: Order Comment: CLEAN CATCH Performed By: #### M 100.678, L400.0001 ####[facility] [address] [place], [address] LEUK ESTERASE 100 /ul Abnormal Negative [facility] Comment on above: Order Comment: CLEAN CATCH Performed By: #### M 100.678, L400.0001 ####[facility] [address] [place], [address] Nitrite Ql (U) Negative Normal Negative [facility] Comment on above: Order Comment: CLEAN CATCH Performed By: #### M 100.678, L400.0001 ####[facility] [address] [place], [address] OCCULT BLOOD-UR Negative Normal Negative [facility] Comment on above: Order Comment: CLEAN CATCH Performed By: #### M 100.678, L400.0001 ####[facility] [address] [place], [address] pH UR 7.0 Normal 5.0 - 8.0 [facility] Comment on above: Order Comment: CLEAN CATCH Performed By: #### M 100.678, L400.0001 ####[facility] [address] [place], [address] PROT DIPSTX 30 mg/dl Abnormal Negative [facility] Comment on above: Order Comment: CLEAN CATCH Performed By: #### M 100.678, L400.0001 ####[facility] [address] [place], [address] SP.GR. DIPSTX 1.010 Normal 1.002-1.030 [facility] Comment on above: Order Comment: CLEAN CATCH Performed By: #### M 100.678, L400.0001 ####[facility] [address] [place], [address] UROBILI Normal Normal Normal [facility] Comment on above: Order Comment: CLEAN CATCH Performed By: #### M 100.678, L400.0001 ####[facility] [address] [place], [address] EPI,SQUAMOUS 0 SEEN Normal 0-5 [facility] Comment on above: Order Comment: CLEAN CATCH Performed By: #### M 100.678, L400.0001 ####[facility] [address] [place], [address] Mucus Ql (Urine sed) 0 SEEN Normal [facility] Comment on above: Order Comment: CLEAN CATCH Performed By: #### M 100.678, L400.0001 ####[facility] [address] [place], [address] RBC 0 SEEN Normal 0-5 [facility] Comment on above: Order Comment: CLEAN CATCH Performed By: #### M 100.678, L400.0001 ####[facility] [address] [place], [place], [id number] Urine blood detectionOrdered By: Velasquez Morales on 10-27-2024 Urine Occult Blood Negative Negative [facility] Urine clarityOrdered By: Gregor Morales on 10-27-2024 Clarity (U) Clear Clear [facility] Urine color determinationOrd ered By: Velasquez Morales on 10-27-2024 Color (U) Straw Yellow [facility] Urine cultureOrdered By: Gregor Morales on 10-27-2024 Bacteria identified Cx Nom (U) Mixed Gram Pos & Gram Neg Org Abnormal [facility] Urine leukocyte esterase det ection by dipstickOrdered By: Velasquez Morales on 10-27-2024 Leukocyte esterase Test strip Ql (U) 100 /ul High Negative [facility] Urine pHOrdered By: Velasquez Saab on 10-27-2024 pH (U) 7.0 [pH] 5.0 - 8.0 [facility] Urine sediment bacteria coun t by microscopy (number/high power field)Ordered By: Velasquez Morales on 10-27-2024 Bacteria LM.HPF (Urine sed) [#/Area] 1 /[HPF] None Seen [facility] Urine specific gravity measu rementOrdered By: Velasquez Morales on 10-27-2024 Specific gravity (U) [Rel density] 1.010 1.002-1.030 [facility] Urobilinogen Ql (U)Ordered B y: Velasquez Morales on 10-27-2024 Urine Urobilinogen Normal mg/dl Normal [facility] White blood cell countOrdere d By: Velasquez Morales on 10-27-2024 Urine WBC 10-25 SEEN /hpf 0-5 [facility] Wound Cultureon 10-27-2024 WC List Antibiotics Las t 48 Hours? NONE List Antibiotics to be Started? NONE Staphylococcus aureus Amount Growth 1+ Staphylococcus aureus: REACTION cefOXitin Susc Islt Doxycycline Islt GAYLA <=0.5 S Clindamycin Islt GAYLA 0.25 S Clindamycin.induced Susc Islt NEG Erythromycin Islt GAYLA <=0.25 S Gentamicin Islt GAYLA <=0.5 S Linezolid Islt AGYLA 2 S Moxifloxacin Islt GAYLA <=0.25 S Oxacillin Susc Islt <=0.25 S Tetracycline Islt GAYLA <=1 S TMP SMX Islt GAYLA <=10 S Vancomycin Islt GAYLA <=0.5 S Normal [facility] Comment on above: Performed By: #### M 100.4001, M100.3000, M100.1999 ####[facility] [address] [facility] [place], [address] Gram Stainon 10-26-2024 GS List Antibiotics Las t 48 Hours? NONE List Antibiotics to be Started? NONE Gram Stain No organisms seen No cells seen Normal [facility] Comment on above: Performed By: #### M 100.4001, M100.3000, M100.1999 ####[facility] [address] [facility] [place], [address] Wound Ctr History AND Physic josé miguel 10-25-2024 Wound Ctr History & Physical [facility] [address] [place] [address] H P Exam - Wound Care 10/25/24 1711 MR#: [id number] Acct: [id number] Name: FLEX KLINE Rep #: [id number] : 1940 84 From: Rita Calixto NP VETERINARY EPIDEMIOLOGIST-C PCP: Dr. Felix Montelongo MD Status:REG RCR [...] erythematous and dry but no open wounds. 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 [...] mg tablet,delayed 81 mg PO DAILY@0800 [facility] 07/28/18 07/28/18 06:00 History release nitroglycerin 0.4 [...] (Reviewed 10/27/24 @ 12:55 by Rita Calixto VETERINARY EPIDEMIOLOGIST, VETERINARY EPIDEMIOLOGIST-C) Mother Alzheimer's dementia Diabetes Father CAD (coronary artery disease) Heart disease Brother CAD (coronary artery disease) Daughter Arthritis Surgical History (Reviewed 10/27/24 @ 12:55 by Rita Calixto VETERINARY EPIDEMIOLOGIST, VETERINARY EPIDEMIOLOGIST-C) 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 Normal [facility] Absolute lymphocyte counton 06-29-2023 Lymphocytes Auto (Unsp spec) [#/Vol] 0.81 10*3/uL 0.83-4.51 [facility] Basophil percentageon 2022 Basophils/100 WBC (Bld) 0.2 % 0-1 [facility] Bilirubin [Mass/Vol] 0.80 mg/dL 0.20-1.00 [facility] Comment on above: For patients on eltr ombopag therapy, use of Dimension [place] TBIL is not recommended. Chloride [Moles/Vol] 101 mmol/L 98-107 [facility] Cholesterol [Mass/Vol] 170 mg/dL <200 [facility] Comment on above: <200 mg/dL Desirable 200-240 mg/dL Borderline >240 mg/dL High Risk Eosinophils/100 WBC (Bld) 3.3 % 0-5 [facility] Glucose [Mass/Vol] 119 mg/dL 74-106 [facility] Comment on above: Fasting Glucose resu lt from 100 to 125 mg/dL suggests IMPAIRED HOMEOSTASIS per A.D.A. criteria. Neutrophils (Bld) [#/Vol] 3.9 10*3/uL 2.0-7.7 [facility] Neutrophils/100 WBC (Bld) 70.4 % 47-70 [facility] Potassium [Moles/Vol] 4.8 mmol/L 3.5-5.1 [facility] Protein [Mass/Vol] 7.2 g/dL 6.4-8.2 [facility] Sodium [Moles/Vol] 134 mmol/L 136-145 [facility] Triglyceride [Mass/Vol] 57 mg/dL <199 [facility] Comment on above: The drugs N-Acetylcy steine and Metamizole may falsely depress this assay.Serum Triglycerides Reference Interval Normal <150 mg/dL Borderline high 150 - 199 mg/dL High 200 - 499 mg/dL Very High > or = 500 mg/dL WBC (Bld) [#/Vol] 5.5 10*3/uL 4.4-11.0 [facility] Blood erythrocytes count (nu mber/volume)on 06-29-2023 RBC (Bld) [#/Vol] 4.22 10*6/uL 4.6-6.2 [facility] Blood hemoglobin measurement (mass/volume)on 06-29-2023 Hemoglobin (Bld) [Mass/Vol] 14.4 g/dL 13.0-16.5 [facility] Blood lymphocytes/100 leukoc yteson 06-29-2023 Lymphocytes/100 WBC (Bld) 14.8 % 19-41 [facility] Blood monocytes/100 leukocyt eson 06-29-2023 Monocytes/100 WBC (Bld) 11.1 % 0-10 [facility] Blood platelet mean volumeon 06-29-2023 Platelet mean volume (Bld) [Entitic vol] 9.7 fL 6.2-12.0 [facility] Determination of erythrocyte mean corpuscular volume (MCV)on 06-29-2023 MCV (RBC) [Entitic vol] 96.9 fL 80-94 [facility] Hematocrit Auto (Bld) [Volum e fraction]on 06-29-2023 Hematocrit (Bld) [Volume fraction] 40.9 % 40-54 [facility] Laboratory - Chemistry and C hemistry - challengeon 06-29-2023 ALP [Catalytic activity/Vol] 59 U/L 45-117 [facility] ALT [Catalytic activity/Vol] 24 U/L 16-61 [facility] CO2 [Moles/Vol] 27.0 mmol/L 21.0-32.0 [facility] Globulin (S) [Mass/Vol] 3.3 g/dL 2.2-4.2 [facility] Urea nitrogen/Creatinine [Mass ratio] 18.1 mg/mg 10-20 [facility] Laboratory - Hematology and Cell countson 06-29-2023 Erythrocyte distribution width (RBC) [Entitic vol] 42.5 fL 35.1-43.9 [facility] Erythrocyte distribution width (RBC) [Ratio] 11.9 % 11.6-14.6 [facility] Immature granulocytes/100 WBC (Bld) 0.200 % 0.0-0.9 [facility] Comment on above: IG% - Immature Granu locytes (promyelocytes, myelocytes and metamyelocytes) > 1% indicates that a LEFT SHIFT is Present. MCH (RBC) [Entitic mass] 34.1 pg 27.0-32.0 [facility] Nucleated RBC/100 WBC (Bld) [Ratio] 0 % 0-5 [facility] MCHC Auto (RBC) [Mass/Vol]on 06-29-2023 MCHC (RBC) [Mass/Vol] 35.2 g/dL 32-36 [facility] No Panel Informationon 06-29 Estimated GFR (MDRD) Amer 56 mL/min >60 [facility] Comment on above: GFR Calc Estimated GFR (MDRD) Non-Af Amer 46 mL/min >60 [facility] Comment on above: Non- GFR Calc Prostate Specific Antigen Screen 3.35 ng/mL 0.00-4.00 [facility] Comment on above: This test was perfor med using the TPSA assay method for [employer] chemistry system. Values obtained with differentassay methods cannot be used interchangably.When changing PSA assays in the course of monitoring apatient, additional sequential testing should be carriedout to confirm baseline values. Thyroid Stimulating Hormone (TSH) 4.85 uIU/mL 0.358-3.74 [facility] Urine Microalbumin/Creatinine Ratio 26.8 mg/g CRE <30 [facility] Platelets bldon 06-29-2023 Platelets (Bld) [#/Vol] 217 10*3/uL 150-450 [facility] Serum or plasma albumin jesenia urement (mass/volume)on 06-29-2023 Albumin [Mass/Vol] 3.9 g/dL 3.2-5.0 [facility] Serum or plasma albumin/glob ulin mass ratioon 06-29-2023 Albumin/Globulin [Mass ratio] 1.2 {ratio} 0.9-2.4 [facility] Serum or plasma calcium jesenia urement (mass/volume)on 06-29-2023 Calcium [Mass/Vol] 9.0 mg/dL 8.5-10.1 [facility] Serum or plasma cholesterol in HDL measurement (mass/volume)on 06-29-2023 Cholesterol in HDL [Mass/Vol] 56 mg/dL >40 [facility] Comment on above: The drugs N-Acetylcy steine and Metamizole may falsely depress this assay. Reference Range HDL <40 mg/dL Low HDL Cholesterol HDL >or= 60 mg/dL High HDL Cholesterol Serum or plasma cholesterol in VLDL measurement (mass/volume)on 06-29-2023 Cholesterol in VLDL [Mass/Vol] 11 mg/dL 5-40 [facility] Serum or plasma creatinine m easurement (mass/volume)on 06-29-2023 Creatinine [Mass/Vol] 1.55 mg/dL 0.70-1.30 [facility] Comment on above: The validity of the calculated GFR & GFRAA in patients over 70 years has not been determined. Clinical correlation is essential. Serum or plasma low density lipoprotein (LDL) cholesterol measurement (mass/volume)on 06-29-2023 Cholesterol in LDL [Mass/Vol] 103 mg/dL 0-130 [facility] Serum or plasma urea nitroge n measurement (mass/volume)on 06-29-2023 Urea nitrogen [Mass/Vol] 28 mg/dL 7-18 [facility] Thin prep Papanicolaou smear with manual screeningon 06-29-2023 Thin prep Papanicolaou smear with manual screening 21 U/L 15-37 [facility] Thin prep Papanicolaou smear with manual screening 6 5-15 [facility] Thin prep Papanicolaou smear with manual screening 32.2 mg/L NO RANGE EST. [facility] Urine creatinine measurement (mass/volume)on 06-29-2023 Creatinine (U) [Mass/Vol] 120.00 mg/dL NO RANGE EST. [facility] Whole blood hemoglobin A1c/t otal hemoglobin ratio (mass fraction)on 06-29-2023 HbA1c (Bld) [Mass fraction] 6.9 % 3.8-5.6 [facility] Comment on above: Normal < 5.7 % Predi abetic 5.7 - 6.4 % Diabetic >or= 6.5 % Please note range changes. Basophil percentageon 2021 Bilirubin [Mass/Vol] 0.70 mg/dL 0.20-1.00 [facility] Work Phone: Comment on above: For patients on eltr ombopag therapy, use of Dimension [place] TBIL is not recommended. Chloride [Moles/Vol] 100 mmol/L 98-107 [facility] Work Phone: Cholesterol [Mass/Vol] 180 mg/dL <200 [facility] Work Phone: [phone] Comment on above: <200 mg/dL Desirable 200-240 mg/dL Borderline >240 mg/dL High Risk Glucose [Mass/Vol] 138 mg/dL 74-106 [facility] Work Phone: [phone] Comment on above: Fasting Glucose resu lt greater than or equal to 126 mg/dL suggests DIABETES MELLITUS per A.D.A. criteria. Potassium [Moles/Vol] 4.4 mmol/L 3.5-5.1 [facility] Work Phone: [phone] Protein [Mass/Vol] 7.5 g/dL 6.4-8.2 [facility] Work Phone: [phone] Sodium [Moles/Vol] 135 mmol/L 136-145 [facility] Work Phone: [phone] Triglyceride [Mass/Vol] 54 mg/dL <199 [facility] Work Phone: [phone] Comment on above: The drugs N-Acetylcy steine and Metamizole may falsely depress this assay.Serum Triglycerides Reference Interval Normal <150 mg/dL Borderline high 150 - 199 mg/dL High 200 - 499 mg/dL Very High > or = 500 mg/dL Laboratory - Chemistry and C hemistry - challengeon 06-04-2022 ALP [Catalytic activity/Vol] 66 U/L 45-117 [facility] Work Phone: ALT [Catalytic activity/Vol] 35 U/L 16-61 [facility] Work Phone: [phone] CO2 [Moles/Vol] 29.0 mmol/L 21.0-32.0 [facility] Work Phone: [phone] Globulin (S) [Mass/Vol] 3.4 g/dL 2.2-4.2 [facility] Work Phone: [phone] Urea nitrogen/Creatinine [Mass ratio] 18.2 mg/mg 10-20 [facility] Work Phone: [phone] Laboratory - Hematology and Cell countson 06-04-2022 HbA1c (Bld) [Mass fraction] 6.9 % [facility] Work Phone: No Panel Informationon 06-04 Estimated GFR (MDRD) Amer 56 mL/min >60 [facility] Work Phone: Comment on above: GFR Calc Estimated GFR (MDRD) Non-Af Amer 46 mL/min >60 [facility] Work Phone: Comment on above: Non- GFR Calc Thyroid Stimulating Hormone (TSH) 4.27 uIU/mL 0.358-3.74 [facility] Work Phone: Urine Microalbumin/Creatinine Ratio 97.5 mg/g CRE <30 [facility] Work Phone: [phone] Serum or plasma albumin jesenia urement (mass/volume)on 06-04-2022 Albumin [Mass/Vol] 4.1 g/dL 3.2-5.0 [facility] Work Phone: [phone] Serum or plasma albumin/glob ulin mass ratioon 06-04-2022 Albumin/Globulin [Mass ratio] 1.2 {ratio} 0.9-2.4 [facility] Work Phone: [phone] Serum or plasma calcium jesenia urement (mass/volume)on 06-04-2022 Calcium [Mass/Vol] 9.0 mg/dL 8.5-10.1 [facility] Work Phone: [phone] Serum or plasma cholesterol in HDL measurement (mass/volume)on 06-04-2022 Cholesterol in HDL [Mass/Vol] 59 mg/dL >40 [facility] Work Phone: Comment on above: The drugs N-Acetylcy steine and Metamizole may falsely depress this assay. Reference Range HDL <40 mg/dL Low HDL Cholesterol HDL >or= 60 mg/dL High HDL Cholesterol Serum or plasma cholesterol in VLDL measurement (mass/volume)on 06-04-2022 Cholesterol in VLDL [Mass/Vol] 11 mg/dL 5-40 [facility] Work Phone: Serum or plasma creatinine m easurement (mass/volume)on 06-04-2022 Creatinine [Mass/Vol] 1.54 mg/dL 0.70-1.30 [facility] Work Phone: Comment on above: The validity of the calculated GFR & GFRAA in patients over 70 years has not been determined. Clinical correlation is essential. Serum or plasma low density lipoprotein (LDL) cholesterol measurement (mass/volume)on 06-04-2022 Cholesterol in LDL [Mass/Vol] 110 mg/dL 0-130 [facility] Work Phone: Serum or plasma urea nitroge n measurement (mass/volume)on 06-04-2022 Urea nitrogen [Mass/Vol] 28 mg/dL 7-18 [facility] Work Phone: Thin prep Papanicolaou smear with manual screeningon 06-04-2022 Thin prep Papanicolaou smear with manual screening 27 U/L 15-37 [facility] Work Phone: Thin prep Papanicolaou smear with manual screening 6 5-15 [facility] Work Phone: Thin prep Papanicolaou smear with manual screening 116.0 mg/L NO RANGE EST. [facility] Work Phone: Urine creatinine measurement (mass/volume)on 06-04-2022 Creatinine (U) [Mass/Vol] 119.00 mg/dL NO RANGE EST. 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: Hot Metal Mixer Operator: Tono Blake OWEN Admission Status: Outpatient Additional Staff: Height: 180.34 cm CC Report to: Weight: 81.65 kg Study Type: Echocardiogram BSA: 2.02 m2 Blood Pressure: 141 /77 mmHg Diagnosis/ICD: I25.10-Atherosclerotic heart disease of [place] coronary artery without angina pectoris Indication: Coronary artery disease Procedure/CPT: Echo Complete w Full [id number] Patient History: Pertinent History: CAD s/p CABG [...] Antonia: 1.52 PulmV Sys Antonia: 48.61 cm/s [id number] Diamond Hammer MD Electronically signed on 07/10/2021 at 8:33:27 PM Final Normal [facility] Blood Pressure Cuff Sizeon 0 06-24-2021 Fall risk assessment b) One or more fall s in the last year [facility] Work Phone: Tobacco use status CPHS b) No M [facility] Work Phone: Blood Pressure Cuff Size Adult [facility] Work Phone: Office Visit (Vascular [...] dominant, LM unclear, LCX moderate disease, LAD RANCH HELPER, RCA RANCH HELPER, VG-LAD patent, PEACE-OM patent, VG-PDA occluded. Was told by his primary systems designer that he may need atherectomy to one [...] 40 mg QHS. Continue ranolazine and ISMR. David Wisejen Chief Complaint Chief Complaints Visit For: Other [...] dominant, LM unclear, LCX moderate disease, LAD RANCH HELPER, RCA RANCH HELPER, VG-LAD patent, PEACE-OM patent, VG-PDA occluded. Was told by his primary systems designer that he may need atherectomy to one of his vessels (?Cx). Additionally, it appears afterwards he had a MPI that demonstrated no inducible ischemia, normal LV size and function (low risk study) performed on 04-23-2021 and in response to this, it was decided that no further intervention was necessary. Service And Repair Supervisor: Harjinder Jones MD ([facility]) *Active Problems Problems Diabetes mellitus (250.00) (E11.9) [...] Clopidogrel Bisulfate (more content not included)... Normal [facility] Tobacco Screening.on 021 Fall risk assessment a) No falls within the last year [facility] [place] Work Phone: Tobacco use status CPHS b) No M [facility] [place] Work Phone: Vital Signs Date Time Vital Sign Value Performing Clinician Facility 05-16-2025 11:24-0400 Diastolic blood pressure 75 mm[Hg] Elana Castañeda MD Work Phone: [facility] 05-16-2025 11:24-0400 Heart rate 78 /min Elana Castañeda MD Work Phone: [facility] 05-16-2025 11:24-0400 SaO2% (BldA) [Mass fraction] 97 % Elana Castañeda MD Work Phone: [facility] 05-16-2025 11:24-0400 Systolic blood pressure 136 mm[Hg] Elana Castañeda MD Work Phone: [facility] 2025 10:58-0400 Body height 176.5 cm Harjinder Jones MD Work Phone: [facility] 2025 10:58-0400 Body mass index (BMI) [Ratio] 26.2 kg/m2 Harjinder Jones MD Work Phone: [facility] 2025 10:58-0400 Body weight 81.65 kg Harjinder Jones MD Work Phone: [facility] 2025 10:58-0400 Diastolic blood pressure 60 mm[Hg] Harjinder Jones MD Work Phone: [facility] 2025 10:58-0400 Heart rate 82 /min Harjinder Jones MD Work Phone: [facility] 2025 10:58-0400 Respiratory rate 16 /min Harjinder Jones MD Work Phone: [facility] 2025 10:58-0400 SaO2% (BldA) [Mass fraction] 98 % Harjinder Jones MD Work Phone: [facility] 2025 10:58-0400 Systolic blood pressure 138 mm[Hg] Harjinder Jones MD Work Phone: [facility] 03-02-2025 10:37-0400 Body mass index (BMI) [Ratio] 26.2 kg/m2 Indiresha Rosalind MD Work Phone: [facility] 03-02-2025 10:37-0400 Body weight 81.65 kg Kwan Estrella MD Work Phone: [facility] 03-02-2025 10:37-0400 Diastolic blood pressure 63 mm[Hg] Kwan Estrella MD Work Phone: [facility] 03-02-2025 10:37-0400 Heart rate 69 /min Kwan Estrella MD Work Phone: [facility] 03-02-2025 10:37-0400 SaO2% (BldA) [Mass fraction] 99 % Kwan Estrella MD Work Phone: [facility] 03-02-2025 10:37-0400 Systolic blood pressure 113 mm[Hg] Kwan Estrella MD Work Phone: [facility] 02-27-2025 10:56-0400 Body height 180.[address] Felix Montelongo MD Work Phone: [facility] 02-27-2025 10:56-0400 Diastolic blood pressure 78 mm[Hg] Dr. Felix Montelongo MD Work Phone: [facility] 02-27-2025 10:56-0400 Heart rate 62 /min Dr. Felix Montelongo MD Work Phone: [facility] 02-27-2025 10:56-0400 SaO2% (BldA) [Mass fraction] 96 % Dr. Felix Montelongo MD Work Phone: [facility] 02-27-2025 10:56-0400 Systolic blood pressure 168 mm[Hg] Dr. Felix Montelongo MD Work Phone: [facility] 01-22-2025 13:41-0500 Body height 176.5 cm Harjinder Jones MD Work Phone: [facility] 01-22-2025 13:41-0500 Body mass index (BMI) [Ratio] 25.62 kg/m2 Harjinder Jones MD Work Phone: [facility] 01-22-2025 13:41-0500 Body weight 79.83 kg Harjinder Jones MD Work Phone: [facility] 01-22-2025 13:41-0500 Diastolic blood pressure 70 mm[Hg] Harjinder Jones MD Work Phone: [facility] 01-22-2025 13:41-0500 Heart rate 91 /min Harjinder Jones MD Work Phone: [facility] 01-22-2025 13:41-0500 Respiratory rate 14 /min Harjinder Jones MD Work Phone: [facility] 01-22-2025 13:41-0500 SaO2% (BldA) [Mass fraction] 97 % Harjinder Jones MD Work Phone: [facility] 01-22-2025 13:41-0500 Systolic blood pressure 156 mm[Hg] Harjinder Jones MD Work Phone: [facility] 11-30-2024 08:36-0500 Body height 180.[address] Felix Montelongo MD Work Phone: [facility] 11-30-2024 08:36-0500 Body mass index (BMI) [Ratio] 24.1 kg/m2 Dr. Felix Montelongo MD Work Phone: [facility] 11-30-2024 08:36-0500 Body weight 78.[address] Felix Montelongo MD Work Phone: [facility] 11-30-2024 08:36-0500 Diastolic blood pressure 72 mm[Hg] Dr. Felix Montelongo MD Work Phone: [facility] 11-30-2024 08:36-0500 Heart rate 93 /min Dr. Felix Montelongo MD Work Phone: [facility] 11-30-2024 08:36-0500 Respiratory rate 18 /min Dr. Felix Montelongo MD Work Phone: [facility] 11-30-2024 08:36-0500 Systolic blood pressure 138 mm[Hg] Dr. Felix Montelongo MD Work Phone: [facility] 11-01-2024 15:00-0500 Body temperature 97.6 [degF] Dr. Felix Montelongo MD Work Phone: [facility] 11-01-2024 15:00-0500 Diastolic blood pressure 54 mm[Hg] Dr. Felix Montelongo MD Work Phone: [facility] 11-01-2024 15:00-0500 Heart rate 76 /min Dr. Felix Montelongo MD Work Phone: [facility] 11-01-2024 15:00-0500 Respiratory rate 18 /min Dr. Felix Montelongo MD Work Phone: [facility] 11-01-2024 15:00-0500 SaO2% (BldA) [Mass fraction] 94 % Dr. Felix Montelongo MD Work Phone: [facility] 11-01-2024 15:00-0500 Systolic blood pressure 104 mm[Hg] Dr. Felix Montelongo MD Work Phone: [facility] 11-01-2024 06:00-0500 Body mass index (BMI) [Ratio] 24.3 kg/m2 Dr. Felix Montelongo MD Work Phone: [facility] 11-01-2024 06:00-0500 Body weight [address] Felix Montelongo MD Work Phone: [facility] 01-04-2024 15:09-0500 Body height 176.5 cm Rocío Wagner PA-C Work Phone: [facility] 01-04-2024 15:09-0500 Body weight 83.01 kg Rocío Wagner PA-C Work Phone: [facility] 01-04-2024 15:09-0500 Diastolic blood pressure 66 mm[Hg] Rocíoaj Cookbow PA-C Work Phone: [facility] 01-04-2024 15:09-0500 Heart rate 73 /min Rocío Cookbow PA-C Work Phone: [facility] 01-04-2024 15:09-0500 Respiratory rate 14 /min Rocíoaj Cookbow PA-C Work Phone: [facility] 01-04-2024 15:09-0500 SaO2% (BldA) [Mass fraction] 97 % Rocío Cookbow PA-C Work Phone: [facility] 01-04-2024 15:09-0500 Systolic blood pressure 122 mm[Hg] Rocíoaj Cookbow PA-C Work Phone: [facility] 06-04-2022 08:28-0400 Body height 182.[address] Felix Montelongo Work Phone: [facility] Work Phone: 06-04-2022 08:28-0400 Body mass index (BMI) [Ratio] 26 kg/m2 Dr. Felix Montelongo Work Phone: [facility] Work Phone: 06-04-2022 08:28-0400 Body temperature 96.5 [degF] Dr. Felix Montelongo Work Phone: [facility] Work Phone: 06-04-2022 08:28-0400 Body weight 87.[address] Felix Montelongo Work Phone: [facility] Work Phone: 06-04-2022 08:28-0400 Diastolic blood pressure 76 mm[Hg] Dr. Felix Montelongo Work Phone: [facility] Work Phone: 06-04-2022 08:28-0400 Heart rate 58 /min Dr. Felix Montelongo Work Phone: [facility] Work Phone: 06-04-2022 08:28-0400 Respiratory rate 18 /min Dr. Felix Montelongo Work Phone: [facility] Work Phone: 06-04-2022 08:28-0400 SaO2% (BldA) [Mass fraction] 99 % Dr. Felix Montelongo Work Phone: [facility] Work Phone: 06-04-2022 08:28-0400 Systolic blood pressure 124 mm[Hg] Dr. Felix Montelongo Work Phone: [facility] Work Phone: 06-24-2021 13:44-0400 Body height 182.88 cm Referring Provider Unknown CU-Kjprxqgbfa-Fgxc dview [facility] Work Phone: 06-24-2021 13:44-0400 Body mass index (BMI) [Ratio] 24.36 kg/m2 Referring Provider Unknown ZT-Nllcsyajvr-Vikr dview [facility] Work Phone: 06-24-2021 13:44-0400 Body surface area Derived from formula 2.04 m2 Referring Provider Unknown AR-Aribysqhpk-Fqeb dview [facility] Work Phone: 06-24-2021 13:44-0400 Body weight 81.47 kg Referring Provider Unknown NK-Yhsolwnqqm-Pxqx dview [facility] Work Phone: 06-24-2021 13:44-0400 Diastolic blood pressure 75 mm[Hg] Referring Provider Unknown KL-Bromnwruxw-Jewi dview [facility] Work Phone: 06-24-2021 13:44-0400 Heart rate 81 /min Referring Provider Unknown TY-Drtxicltgx-Qvgy dview [facility] Work Phone: 06-24-2021 13:44-0400 Systolic blood pressure 138 mm[Hg] Referring Provider Unknown IM-Eueoyevmca-Tcyw dview [facility] Work Phone: 06-24-2021 13:44-0400 0 1 Referring Provider Unknown KZ-Fnuensvuyj-Jkmq jennifer [facility] Work Phone: Comment on above: [facility] 05-15-2021 11:29-0400 Body height 182.88 cm Referring Provider Unknown UZ-Hgkonesazq-Wqgq na 140 [place] Work Phone: 05-15-2021 11:29-0400 Body mass index (BMI) [Ratio] 24.28 kg/m2 Referring Provider Unknown AG-Agnsbpywnf-Jemf na 140 [place] Work Phone: 05-15-2021 11:29-0400 Body surface area Derived from formula 2.03 m2 Referring Provider Unknown NN-Ttaywvztne-Wknw na 140 [place] Work Phone: 05-15-2021 11:29-0400 Body weight 81.19 kg Referring Provider Unknown QK-Zlglucbpzt-Eslg na 140 [place] Work Phone: 05-15-2021 11:29-0400 Diastolic blood pressure 86 mm[Hg] Referring Provider Unknown UC-Dsnylthgjj-Muto na 140 [place] Work Phone: 05-15-2021 11:29-0400 Heart rate 82 /min Referring Provider Unknown AS-Qbfqrzxezb-Pftu na 140 [place] Work Phone: 05-15-2021 11:29-0400 SaO2% (BldA) [Mass fraction] 94 % Referring Provider Unknown RL-Ohczkdlfty-Bsls na 140 [place] Work Phone: 05-15-2021 11:29-0400 Systolic blood pressure 180 mm[Hg] Referring Provider Unknown BA-Iscgowpssn-Wamz na 140 [place] Work Phone: 05-15-2021 11:29-0400 0 1 Referring Provider Unknown HK-Hsyxizriqj-Quno na 140 [place] Work Phone: Comment on above: [facility] Encounters Encounter Date Encounter Type Care Provider Facility Start: 06-22-2025 ambulatory Buzz ZHANG Fa cility:[facility] Start: 06-22-2025 Registered Referred Buzz Rainey MD -[facility] Start: 06-21-2025 End: 06-22-2025 Telephone encounter Elana Castañeda MD Work Phone: Neurology Comment on above: Orders Start: 05-30-2025 End: 05-30-[address] Felix Montelongo MD Work Phone: -[facility] Start: 05-30-2025 End: 05-30-2025 Patient encounter procedure Abeba Peacock VETERINARY EPIDEMIOLOGIST-C -[facility] Work Phone: Start: 05-29-2025 End: 05-29-2025 Telephone encounter Elana Castañeda MD Work Phone: [facility] Comment on above: Request Rx's fax to Nursing Facility Start: 05-16-2025 End: 05-16-2025 Office outpatient visit 40 minutes Elana Castañeda MD Work Phone: Neurology Comment on above: Parkinson's disease without dyskinesia or fluctuating manifestations (HCC) (Primary Dx); Post-traumatic headache, not intractable, unspecified chronicity pattern; Post herpetic neuralgia Start: 05-16-2025 End: 05-16-2025 ambulatory ELANA CASTAÑEDA Facility:[facility] Start: 05-10-2025 End: 05-10-[address] Felix Montelongo MD Work Phone: [facility] Work Phone: Start: 05-10-2025 End: 05-10-[address] Dirk Camacho MD -[facility] Work Phone: Start: 05-10-2025 End: 05-10-2025 ambulatory Dirk Camacho Facility:[facility] Start: 05-03-2025 ambulatory Buzz ZHANG Fa cility:[facility] Start: 05-03-2025 Registered Referred Buzz Rainey MD -[facility] Start: 05-02-2025 ambulatory Buzz ZHANG Fa cility:[facility] Start: 05-02-2025 Registered Referred Efewongbe Oleghe MD JAIRON Ashraf Start: 04-26-2025 ambulatory Buzz Vanessa cility:[facility] Start: 04-26-2025 Registered Referred Buzz LeeShlomo Ashraf Start: 04-13-2025 End: 04-13-[address] Felix Montelongo MD Work Phone: [facility] Work Phone: Start: 04-13-2025 End: 04-13-2025 Patient encounter procedure Abeba Wadesandra CERVANTES -[facility] Work Phone: Start: 03-29-2025 ambulatory Buzz Vanessa cility:[facility] Start: 03-29-2025 Registered Referred Buzz [facility]Shlomo [facility] Start: 2025 End: 2025 ambulatory [facility] Facility:[facility] Start: 2025 End: 2025 Patient encounter procedure Harjinder Jones MD Work Phone: Cardiology Comment on above: Primary hypertension (Primary Dx); 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 Start: 03-01-2025 End: 03-01-2025 Departed Referred Buzz LeeShlomo Ashraf Start: 02-28-2025 End: 03-01-[address] Felix Montelongo MD Work Phone: [facility] Work Phone: Start: 02-28-2025 End: 02-28-2025 Departed Referred Buzz Rainey MD [facility] Start: 02-27-2025 End: 02-27-[address] Ozzy Bro MD -[facility] Work Phone: Start: 02-27-2025 End: 02-28-2025 ambulatory Buzz ZHANG Facility:[facility] Start: 02-26-2025 End: 02-26-[address] Felix Montelongo MD Work Phone: [facility] Work Phone: Start: 02-26-2025 End: 02-26-2025 Patient encounter procedure Aebba RASMUSSENC -[facility] Work Phone: Start: 01-31-2025 End: 01-31-[address] Felix Montelongo MD Work Phone: [facility] Work Phone: Start: 01-31-2025 End: 01-31-2025 Departed Referred Buzz Rainey MD [facility] Start: 01-31-2025 End: 01-31-2025 ambulatory Otiliaarthur ZHANG Facility:[facility] Start: 01-22-2025 End: 01-22-2025 ambulatory [facility] Facility:[facility] Start: 01-22-2025 End: 01-22-2025 ambulatory [facility] Facility:[facility] Start: 01-22-2025 End: 01-22-2025 Patient encounter procedure Harjinder Jones MD Work Phone: Cardiology Comment on above: Palpitations (Primar y Dx); Diastolic congestive heart failure, unspecified HF chronicity (HCC); Atherosclerosis of kalispel coronary artery of k[place]isp[place] heart without angina pectoris Start: 01-04-2025 End: 01-04-2025 Patient encounter procedure Abeba Peacock NP-C -[facility] Work Phone: Start: 01-04-2025 End: 01-04-2025 ambulatory Abeba Peacock NP Facility:[facility] Start: 01-04-2025 Registered Referred Buzz Ashraf Start: 12-26-2024 End: 12-26-2024 ambulatory Otiliahueyestrella Monreallana Facility:[facility] Start: 12-26-2024 End: 12-26-[address] [facility] Start: 12-21-2024 End: 12-21-2024 ambulatory Felix Jayda Facility:[facility] Start: 12-21-2024 End: 12-21-2024 Patient encounter procedure Abeba Peacock VETERINARY EPIDEMIOLOGIST-C -[facility] Work Phone: Start: 12-19-2024 End: 12-19-2024 ambulatory Otiliahueyestrella Redd Facility:[facility] Start: 12-19-2024 End: 12-19-[address] [facility] Start: 12-07-2024 ambulatory Buzz Rainey OLS Fa cility:[facility] Start: 12-07-2024 Registered Referred Buzz Ashraf Start: 12-04-2024 End: 12-04-2024 ambulatory [facility] Facility:[facility] Start: 12-04-2024 End: 12-04-2024 Patient encounter procedure Abeba Peacock NP-C -[facility] Work Phone: Start: 12-02-2024 ambulatory Rita Calixto VETERINARY EPIDEMIOLOGIST Fa cility:[facility] Start: 11-30-2024 End: 11-30-[address] Margie Gary MD -[facility] Work Phone: Start: 11-30-2024 End: 11-30-2024 ambulatory Margie Gary Facility:[facility] Start: 11-30-2024 ambulatory Buzz Rainey OLS Fa cility:[facility] Start: 11-30-2024 Registered Referred Efewongbe Redd [place] Start: 11-23-2024 ambulatory Buzz Monreale OLS Fa cility:[facility] Start: 11-23-2024 Registered Referred Buzz Huddleston Start: 11-16-2024 ambulatory Eftamanna Monreale OLS Fa cility:[facility] Start: 11-16-2024 Registered Referred Buzz Huddleston Start: 11-09-2024 ambulatory Eftamanna Monreale OLS Fa cility:[facility] Start: 11-09-2024 Registered Referred Buzz Huddleston Start: 11-07-2024 End: 11-07-2024 ambulatory Buzz Monreale Facility:[facility] Start: 11-07-2024 End: 11-07-[address] Buzz Rainey MD [facility] Work Phone: Start: 11-03-2024 ambulatory Buzz Rainey OLS Fa cility:[facility] Start: 11-03-2024 Registered Referred Buzz Huddleston Start: 11-02-2024 End: 11-02-2024 ambulatory [facility] Facility:[facility] Start: 11-02-2024 End: 11-02-2024 Patient encounter procedure Abeba CERVANTES -[facility] Work Phone: Start: 11-01-2024 Non-patient / Non-visit Dr. Sung Richardson [facility] Work Phone: Start: 10-31-2024 ambulatory [facility] Start: 10-31-2024 Non-patient / Non-visit Dr. Sung Richardson [facility] Work Phone: Start: 10-30-2024 Non-patient / Non-visit Dr. Sung Richardson [facility] Work Phone: Start: 10-29-2024 Non-patient / Non-visit Dr. Marilu Laurent [facility] Work Phone: Start: 10-28-2024 Non-patient / Non-visit Dr. Marilu Laurent [facility] Work Phone: Start: 10-28-2024 ambulatory Felix Montelongo [facility] Start: 10-28-2024 Non-patient / Non-visit Dr. Angela gilmore MD -[facility] Start: 10-27-2024 ambulatory Sulma Romero [facility] Start: 10-27-2024 End: 11-01-2024 Evaluation and management of inpatient Dr. Sung Rhodes DO -[facility] Work Phone: Start: 10-26-2024 [...] about it? Start: 10-25-2024 ambulatory Rita Calixto VETERINARY EPIDEMIOLOGIST Fa cility:[facility] Start: 10-25-2024 End: 11-21-2024 ambulatory Rita Calixto VETERINARY EPIDEMIOLOGIST Facility:[facility] Start: 09-11-2024 End: 09-11-2024 Refill Harjinder Jones MD Work Phone: [address] [place] [address] Comment on above: Refill Request Start: 02-01-2024 End: 02-01-2024 ambulatory Rocío FITZPATRICK-Tae Work Phone: [facility] [place] Comment on above: Controlled type 2 di abetes mellitus without complication, without long-term current use of insulin (HCC) (Primary Dx); Acquired hypothyroidism; Stage 3a chronic kidney disease (HCC); Parkinson's disease, unspecified whether dyskinesia present, unspecified whether manifestations fluctuate (HCC) Start: 02-01-2024 End: 02-01-2024 Telemedicine consultation with patient Rocío Bernard FITZPATRICK-Tae Work Phone: [facility] Start: 01-05-2024 ambulatory Rocío Cookroque HILLIARD Work Phone: [facility] [place] Comment on above: Elizabether thing. Would like a prescription to Sammie Pleitez. Start: 01-05-2024 Telephone encounter Felix Montelongo MD Work Phone: [facility] [place] Comment on above: patient update on fa ll Start: 01-04-2024 End: 01-04-2024 Patient encounter procedure Rocío Cookroque HILLIARD Work Phone: [facility] [place] Comment on above: Controlled type 2 di abetes mellitus without complication, without long-term current use of insulin ([facility]) (Primary Dx); Acquired hypothyroidism; Parkinson's disease, unspecified whether dyskinesia present, unspecified whether manifestations fluctuate; CIDP (chronic inflammatory demyelinating polyneuropathy) ([facility]); Essential tremor; Post herpetic neuralgia; Stage 3a chronic kidney disease ([facility]) Start: 07-07-2023 End: 07-07-2023 ambulatory Elana Castañeda MD Work Phone: Neurology Comment on above: Parkinson disease (H CC) (Primary Dx); Slow transit constipation Start: 07-07-2023 End: 07-07-2023 Telemedicine consultation with patient Elana Castañeda MD Work Phone: [facility] Start: 06-29-2023 End: 06-29-2023 ambulatory [facility] Work Phone: Start: 06-29-2023 End: 06-29-2023 Patient encounter procedure [facility] Work Phone: Start: 02-19-2023 Telephone encounter Elana whiting MD Work Phone: Neurology Comment on above: Orders (Mailed order s ) Start: 02-19-2023 End: 02-19-2023 Office outpatient visit 25 minutes Elana Castañeda MD Work Phone: Neurology Comment on above: Parkinson disease (H CC) (Primary Dx); Muscle stiffness; Muscle pain Start: 12-18-2022 End: 12-18-2022 Office outpatient visit 40 minutes Elana Castañeda MD Work Phone: Neurology Comment on above: Parkinson disease (H CC) (Primary Dx); Essential tremor Start: 11-10-2022 ambulatory Elana rodrigues MD Work Phone: Neurology Comment on above: Hand shaking Start: 07-09-2022 Telephone encounter Elana whiting MD Work Phone: Neurology Comment on above: Opened In Error (/) Start: 06-04-2022 End: 06-04-[address] Felix Montelongo Work Phone: [facility] Start: 06-04-2022 End: 06-04-[address] Felix Montelongo Work Phone: [facility] Start: 05-26-2022 Telephone encounter Elana whiting MD Work Phone: Neurology Comment on above: Opened In Error Start: 05-17-2022 E-mail encounter fro m caregiver Elana Castañeda MD Work Phone: [facility] Start: 05-17-2022 Patient encounter procedure Elana Castañeda MD Work Phone: Neurology Comment on above: Request an Appointme nt Start: 03-25-2022 Telephone encounter Elana whiting MD Work Phone: Neurology Comment on above: upcoming appointment (pre-rooming phone call) Start: 06-24-2021 Current tobacco non- user cad cap copd pv dm Referring Provider Unknown OR-Vlcpavevxd-Utcgjjozq [facility] Work Phone: Start: 05-15-2021 Patient encounter procedure Referring Provider Unknown CN-Mnvsvawlcl-Uamvfh 140 [place] Work Phone: Start: 10-25-2018 Ambulatory KARI ALHAJI Facility :[facility] Start: 02-23-2018 End: 02-23-2018 Ambulatory [facility] Facility:[facility] Start: 01-31-2018 Ambulatory NICOLA PAYNE Facil ity:[facility] Procedures Date Procedure Procedure Detail Performing Clinician Start: 05-10-2025 CT of head without contrast Dr. Felix Montelongo MD Work Phone: Start: 04-26-2025 Vitamin D, 25-hydrox y measurement Dr. Felix Montelongo MD Work Phone: Comment on above: Vitamin D StatusDefi ciency: <20 ng/mL (50nmol/L)Insufficiency: 20-30 ng/mL (50-75 nmol/L)Sufficiency: 30-100 ng/mL (75-250 nmol/L)Toxicity: >100 ng/mL (>250 nmol/L) Start: 03-02-2025 Ecg routine ecg w/le ast [...] Start: 06-29-2022 Adult depression scr eening assessment Elana Castañeda MD Work Phone: Start: 09-24-2021 Adult depression scr eening assessment Elana Castañeda MD Work Phone: Start: 06-24-2021 Follow-up visit Start: 05-15-2021 Follow-up visit Start: 06-17-2007 History of coronary artery bypass grafting S/P CABG x 4 Dr. Margie Gary MD Comment on above: SVG to LAD, SVG to D iagonal, SVG to PDA, and PEACE to lateral CX per Dr. Garfield Dempsey, [facility] Cardiac catheterization Refe rring Provider Unknown Coronary artery bypass graft Referring Provider Unknown Plan of Treatment Date Care Activity Detail Author Start: 03-06-2026 End: 03-06-2026 Patient encounter procedure 03/06/2026 11:00 AM EDT Office Visit [facility] [address] [place], [place] [phone] Kwan Estrella MD [address] [place], [place] [phone] 1 yr f/u. eg [facility] Comment on above: 1 yr f/u. eg Start: 10-01-2025 End: 10-01-2025 Patient encounter procedure 10/01/2025 10:40 AM EST Office Visit [place] [address] [place] [address] Harjinder Jones MD [address] [place], [place] [phone] 6 month follow up Cardiology Comment on above: 6 month follow up Start: 09-19-2025 End: 10-29-2025 ambulatory 09/19/2025 7:30 AM EDT [facility] Neurology [address] [facility] [address] [place] [id number] Elnaa Castañeda MD [address] [facility] [address] [place] [address] [facility] Neurology Comment on above: Parkinsons Start: 07-23-2025 Influenza vaccination Influenza Vacc ine (#1) [facility] Start: 03-08-2025 Covid-19 Vaccine ( season) Covid-19 Vaccine () [facility] Start: 2025 End: 2025 Patient encounter procedure 2025 11:00 AM EDT Office Visit Cardiology [address] [place], [place] [id number] Harjinder Jones MD [address] [place], [place] [phone] 6 weeek follow up Cardiology Comment on above: 6 weeek follow up Start: 01-22-2025 End: 04-23-2025 Natriuretic peptide.B prohormone N-Terminal [Mass/volume] in Serum or Plasma [facility] Comment on above: Expected: 01/22/2025 , Expires: 04/23/2025 Start: 01-22-2025 End: 04-23-2025 Thyrotropin [Units/volume] in Serum or Plasma [facility] Comment on above: Expected: 01/22/2025 , Expires: 04/23/2025 Start: 01-22-2025 End: 01-22-2025 Patient encounter procedure 01/22/2025 1:40 PM EST Office Visit Cardiology [address] [place] [id number] Harjinder Jones MD [address] [place], [place] [phone] 6 month follow up from appt 11/29/23 Cardiology Comment on above: 6 month follow up fr om appt 11/29/23 Start: 11-22-2024 Advance Directive Discussion Advance Directive Discussion [facility] Start: 11-22-2024 Medicare Advantage A nnual Wellness Visit Medicare Advantage Annual Wellness Visit [facility] Start: 11-01-2024 Patient discharge [facility] Start: 10-29-2024 Following clinical pathway protocol [facility] Start: 10-28-2024 Following clinical pathway protocol [facility] Start: 10-28-2024 [facility] Start: 10-27-2024 Following clinical pathway protocol [facility] Start: 10-27-2024 Assessment of risk o f venous thromboembolism [facility] Start: 10-27-2024 Care regimes management [facility] Start: 10-27-2024 Insertion of cathete r into peripheral vein [facility] Start: 10-27-2024 Measuring intake and output [facility] Start: 10-27-2024 Notification of physician [facility] Start: 10-27-2024 Providing care accor ding to standard [facility] Start: 10-27-2024 Provision of activit y privileges [facility] Start: 10-27-2024 Referral to occupati onal therapist [facility] Start: 10-27-2024 Referral to service [facility] Start: 10-27-2024 End: 10-27-2024 [facility] Start: 10-27-2024 Admission procedure [facility] Start: 07-23-2024 Covid-19 Vaccine ( season) Covid-19 Vaccine () [facility] Start: 07-23-2024 Influenza vaccination Influenza Vacc ine (#1) [facility] Start: 03-13-2024 End: 06-12-2024 Thyrotropin [Units/volume] in Serum or Plasma TSH BLD Lab Routine Acquired hypothyroidism Expected: 03/13/2024, Expires: 06/12/2024 [facility] Work Phone: Comment on above: Expected: 03/13/2024 , Expires: 06/12/2024 Start: 02-01-2024 End: 05-02-2024 CBC W Auto Differential panel - Blood CBC + DIFF Lab Routine Stage 3a chronic kidney disease (HCC) Controlled type 2 diabetes mellitus without complication, without long-term current use of insulin (HCC) Parkinson's disease, unspecified whether dyskinesia present, unspecified whether manifestations fluctuate (HCC) Expected: 02/01/2024, Expires: 05/02/2024 [facility] Work Phone: Comment on above: Expected: 02/01/2024 , Expires: 05/02/2024 Start: 02-01-2024 End: 05-02-2024 Hemoglobin A1c in Blood HGB A1C Lab Routine Controlled type 2 diabetes mellitus without complication, without long-term current use of insulin (HCC) Expected: 02/01/2024, Expires: 05/02/2024 [facility] Work Phone: Comment on above: Expected: 02/01/2024 , Expires: 05/02/2024 Start: 01-04-2024 End: 04-04-2024 Basic metabolic 2000 panel - Serum or Plasma [facility] Work Phone: Comment on above: Expected: 01/04/2024 , Expires: 04/04/2024 Start: 01-04-2024 End: 04-04-2024 Thyrotropin [Units/volume] in Serum or Plasma [facility] Work Phone: Comment on above: Expected: 01/04/2024 , Expires: 04/04/2024 Start: 11-22-2023 Advance Directive Discussion Advance Directive Discussion [facility] Start: 11-22-2023 Depression Assessment Depression Ass essment [facility] Start: 07-23-2023 Influenza vaccination INFLUENZA (#1) [facility] Start: 06-29-2023 Adult depression screening assessment DEPRESSION SCREENING [facility] Start: 01-19-2023 COVID-19 VACCINE (6 - Pfizer series) COVID-19 VACCINE (6 - Pfizer series) [facility] Start: 11-22-2022 ADVANCE DIRECTIVE DISCUSSION ADVANCE DIRECTIVE DISCUSSION [facility] Start: 11-22-2022 DEPRESSION ASSESSMENT DEPRESSION ASS ESSMENT [facility] Start: 09-24-2022 Adult depression screening assessment DEPRESSION SCREENING [facility] Start: 07-23-2022 Influenza vaccination INFLUENZA (#1) [facility] Start: 06-04-2022 Testosterone measurement [facility] Work Phone: Start: 05-01-2022 COVID-19 VACCINE (5 - Booster for Pfizer series) COVID-19 VACCINE (5 - Booster for Pfizer series) [facility] Start: 12-15-2021 COVID-19 VACCINE (4 - Booster for Pfizer series) COVID-19 VACCINE (4 - Booster for Pfizer series) [facility] Start: 11-22-2021 ADVANCE DIRECTIVE DISCUSSION ADVANCE DIRECTIVE DISCUSSION [facility] Start: 11-22-2021 DEPRESSION ASSESSMENT DEPRESSION ASS ESSMENT [facility] Start: 07-10-2021 ECHO, Provider: AISAH RHODES,MG CARD, Status: Pen, Time: 10:00 AM [facility] [address] Work Phone: Start: 02-23-2019 Hepatitis B surface antibody level LDL CHOLESTEROL [facility] Start: 10-28-2016 Pneumococcal Vaccine : 50+ (2 of 2 - PPSV23) Pneumococcal Vaccine: 50+ (2 of 2 - PPSV23) [facility] Start: 10-28-2016 Pneumococcal Vaccine : 65+ (2 of 2 - PPSV23 or PCV20) Pneumococcal Vaccine: 65+ (2 of 2 - PPSV23 or PCV20) [facility] Start: 09-13-2012 Urine microalbumin profile DTaP,Tdap,Td Vaccine (1 - Tdap) [facility] Start: 07-11-2010 Urine microalbumin profile DTAP,TDAP,TD (1 - Tdap) [facility] Start: 2007 PNEUMOVAX AGE 65 AND OVER WITH 5YR LOOKBACK (#1) PNEUMOVAX AGE 65 AND OVER WITH 5YR LOOKBACK (#1) [facility] Start: 1992 SHINGRIX VACCINE (1 of 2) HINTON GRIX VACCINE (1 of 2) [facility] Start: 1960 ANNUAL PCP TEAM INTERIM CONTROLLER BRYCE DISEASE VISIT ANNUAL PCP TEAM CHRONIC DISEASE VISIT [facility] Start: 1960 Anxiety Screening Anxiety Screening [facility] Start: 1960 Depression Screening Depression Scre ening [facility] Start: 1952 3 comp foot exam completed DIABETIC FOOT EXAM [facility] Start: 1952 Diabetic foot examination Diabetic F oot Exam [facility] Start: 1952 Glaucoma screening Dilated Retinal E xam [facility] Start: 1952 Hepatitis B screening URINE AL BUMIN:CREATININE RATIO [facility] Start: 1952 Hepatitis C antibody , confirmatory test DILATED RETINAL EXAM [facility] Start: 1948 PNEUMOCOCCAL: 65+ (1 - PCV) PNEUMOCOCCAL: 65+ (1 - PCV) [facility] Start: 1947 Hemoglobin A1c measurement HbA1C [facility] Start: 1947 Hemoglobin A1c/Hemoglobin.total in Blood HBA1C [facility] NM Heart Views W str ess and W radionuclide IV [facility] OUTSIDE VENDOR CARDI AC OUTPATIENT EXTENDED RHYTHM RECORDING (WITHOUT TELEMETRY) OUTSIDE VENDOR CARDIAC OUTPATIENT EXTENDED RHYTHM RECORDING (WITHOUT TELEMETRY) Holter Routine Palpitations Ordered: 01/22/2025 [facility] Work Phone: Comment on above: Ordered: 01/22/2025 Patient Education Urinary Tract Infections in Men UTIs [facility]: Patient referral [facility] Work Phone: T4 free measurement [facility] Work Phone: Testosterone Free [Mass/volume] in Serum or Plasma [facility] Work Phone: Testosterone measurement [facility] Work Phone: [facility] Immunizations Immunization Date Immunization Notes Care Provider Otf collins 09-07-2024 influenza virus vaccine, unspecified formulation Elana Castañeda MD Work Phone: [facility] 09-13-2023 influenza virus vaccine, unspecified formulation Harjinder Jones MD Work Phone: [facility] 09-23-2020 influenza, injectabl e, quadrivalent, preservative free [facility] 09-23-2020 influenza, seasonal, injectable Dr. Felix Montelongo Work Phone: [facility] Work Phone: 09-05-2014 pneumococcal conjuga te vaccine, [address] Felix Montelongo Work Phone: [facility] 07-23-2014 influenza, injectabl e, quadrivalent, preservative free [facility] 07-23-2014 influenza, seasonal, injectable Dr. Felix Montelongo Work Phone: [facility] Work Phone: 07-10-2010 tetanus and diphther ia toxoids, adsorbed, preservative free, for adult use (2 Lf of tetanus toxoid and 2 Lf of diphtheria toxoid) Elana Castañeda MD Work Phone: [facility] Work Phone: 08-22-2007 pneumococcal conjuga te vaccine, 7 valent Elana Castañeda MD Work Phone: [facility] Payers Date Payer Category Payer Self-pay [id number] 2022 Medicare [employer] [place] [id number] 2022-Present [phone] [address] [place] [address] [facility] [id number] 2022 [place] [id number] 2022 Medicare [id number] 2020 Medicare AETNA MEDICARE A ETNA MEDICARE PPO [id number] 2020-Present [phone] [address] [place] [address] [facility] [id number] 2016 Medicare [id number] Private Health Insurance [facility] [id number] Private Health Insurance [facility] VGRSY [id number] Private Health Insurance [id number] Unknown [employer]ET[employer] Unknown [id number] 2.16.840.1.809451.3.579 .2.462 Unknown [id number] 2.16840.1.323516.3.579 .2.462 Unknown [id number] 2.16840.1.904869.3.579 .2.462 Unknown [id number] 2.16840.1.968678.3.579 .2.462 Unknown [id number] 2.16.840.1.924224.3.579 .2.462 Unknown [id number] 2.16840.1.440470.3.579 .2.462 Unknown [id number] 2.16840.1.924454.3.579 .2.462 Unknown [id number] 2.16840.1.176638.3.579 .2.462 Unknown [id number] 2.16.840.1.500644.3.579 .2.462 Unknown [id number] 2.16.840.1.466463.3.579 .2.462 Unknown [id number] 2.16840.1.794971.3.579 .2.462 Unknown [id number] 2.16840.1.576115.3.579 .2.462 Unknown [id number] 2.16.840.1.370202.3.579 .2.462 Unknown [id number] 2.16.840.1.930180.3.579 .2.462 Unknown [id number] 2.16.840.1.851983.3.579 .2.462 Unknown [id number] 2.16.840.1.600087.3.579 .2.462 Unknown [id number] 2.16.840.1.848767.3.579 .2.462 Unknown [id number] 2.16.840.1.674228.3.579 .2.462 Unknown [id number] 2.840.1.884712.3.579 .2.462 Unknown [id number] 2.840.1.971565.3.579 .2.462 Unknown [id number] 2.840.1.303500.3.579 .2.462 Unknown [id number] 2.840.1.644024.3.579 .2.462 Unknown [id number] 2.840.1.631329.3.579 .2.462 Unknown [id number] 2.16.840.1.858548.3.579 .2.462 Unknown [id number] 2.840.1.546187.3.579 .2.462 Unknown [id number] 2.840.1.446043.3.579 .2.462 Unknown [id number] 2.16.840.1.831213.3.579 .2.462 Unknown [id number] 2.16.840.1.241584.3.579 .2.462 Unknown [id number] 2.16.840.1.463600.3.579 .2.462 Unknown [id number] 2.16.840.1.676514.3.579 .2.462 Unknown [id number] 2.840.1.990685.3.579 .2.462 Unknown [id number] 2.16.840.1.849866.3.579 .2.462 Unknown [id number] 2.16.840.1.752469.3.579 .2.462 Unknown [id number] 2.16.840.1.855925.3.579 .2.462 Unknown [id number] 2.16840.1.906312.3.579 .2.462 Social History Date Type Detail Facility Start: 06-29-2022 End: 11-09-2024 Tobacco smoking status NHIS Never smoked tobacco [facility] Start: 10-20-2021 End: 2025 Alcohol intake Lifetime non-drinker (finding) [facility] Start: 09-25-2021 History SDOH Alcohol Frequency 1 [facility] Start: 1940 Sex Assigned At Not on file C [facility] Start: 06-04-2022 End: 05-07-2023 Tobacco smoking status MEIS Unknown if ever smoked [facility] Start: 04-21-2021 None [facility] Start: 04-21-2021 Non-smoker [facility] Start: 1940 Sex Assigned At Male W [facility] Start: 06-29-2022 Tobacco use and exposure Smokeless tobacco non-user [facility] Start: 06-19-2022 End: 06-29-2022 Exposure to SARS-CoV-2 (event) Not sure [facility] Start: 06-29-2022 End: 07-07-2023 History of Social function [facility] Start: 06-29-2022 End: 07-07-2023 Tobacco use panel [facility] Adult Depression Screening Assessment 2 [facility] Start: 07-28-2018 Spouse/ Signif icant Other [facility] Start: 02-23-2025 Sex Male (finding) [facility] Medical Equipment Procedure Code Equipment [...] Assessment Result Facility 11-01-2024 Functional status Ambulates [facility] Work Phone: 04-23-2021 Are you deaf, or do you have serious difficulty hearing No 04/23/2021 5:34 PM Randi Scott RN No [facility] 04-23-2021 Are you blind, or do you have serious difficulty seeing, even when wearing glasses No 04/23/2021 5:34 PM Randi Scott, LINSEY No [facility] 04-23-2021 Do you have serious difficulty walking or climbing stairs No 04/23/2021 5:34 PM Randi Scott, LINSEY [facility] 04-23-2021 Do you have difficul ty dressing or bathing No 04/23/2021 5:34 PM Randi Scott, LINSEY No [facility] 04-23-2021 Because of a physica l, mental, or emotional condition, do you have difficulty doing errands alone such as visiting a physician's office or shopping No 04/23/2021 5:34 PM Randi Scott RN No [facility] Mental Status Date Assessment Result Facility 11-01-2024 Cognitive function Voice/Name [facility] Work Phone: 04-23-2021 Because of a physica l, mental, or emotional condition, do you have serious difficulty concentrating, remembering, or making decisions No 04/23/2021 5:34 PM EDT Randi Archuleta RN No [facility] Clinical Notes 03-25-2022 to 06-22-2025 Telephone Encounter - Caitlin Tenorio MA - 06/22/2025 1:35 PM EDTTelephone Encounter - Caitlin Tenorio MA - 06/22/2025 1:35 PM EDTTelephone Encounter - Caitlin Tenorio MA - 06/21/2025 11:35 AM EDT Note Date & Type Note Facility 06-22-2025 Telephone encounter Note Orders placed in outgoing mail in the facility addressed envelope mailed to us from the facility. Mailed out on 06/21/25. [facility] 06-22-2025 Miscellaneous Notes Orders placed in outgoing mail in the facility addressed envelope mailed to us from the facility. Mailed out on 06/21/25. Received and order for increased carbidopa/levodopa from [facility]. Placed on Dr. Becca gant for signature. documented in this encounter [facility] 06-21-2025 Telephone encounter Note Received and order for increased carbidopa/levodopa from [facility]. Placed on Dr. Becca gant for signature. [facility] 05-29-2025 Telephone encounter Note Orders faxed to [facility] and confirmation received [facility] 05-29-2025 Miscellaneous Notes Orders faxed to [facility] and confirmation received Done and in outbox. Orders pended for printing if agreeable. [facility] 05/16/25 09/19/25 Yocasta (pt's daughter) called to request prescriptions for Carbidopa Levodopa 25/100 mg and Gabapentin 400 mg be faxed to [phone]/[facility]. If needed Yocasta may be reached at [phone]. 05/16/25 [facility]UV w/Dr. Castañeda documented in this encounter [facility] 05-29-2025 Telephone encounter Note Done and in outbox. [facility] 05-29-2025 Telephone encounter Note Orders pended for printing if agreeable. [facility] 05/16/25 09/19/25 [facility] 05-29-2025 Telephone encounter Note Yocasta (pt's daughter) called to request prescriptions for Carbidopa Levodopa 25/100 mg and Gabapentin 400 mg be faxed to [phone]/[facility]. If needed Yocasta may be reached at [phone]. 05/16/25 FUBertha w/Dr. Castañeda [facility] 05-16-2025 Instructions Elana Castañeda MD - 05/16/2025 12:41 PM EDT It was a pleasure to see you today. 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 - Continue home health physical therapy as long as possible - Use Tylenol as needed for daily headaches. - Follow up in 3 months (virtual visit option available). Movement Disorders Medication Schedule: Medications 9 1 6 Sinemet 25/100 2 2 2 gabapentin 400 mg 1 1 1 Return at or around: 08/16/25 If there are any concerns before your next visit, please call or you can send a message through [employer]. You can also now schedule and select appointments through [employer]. Elana Castañeda MD documented in this encounter [facility] 05-16-2025 Note HNO ID: [id number] Author: ELANA CASTAÑEDA MD Service: ? Author Type: Physician Type: Progress Notes Filed: 05/16/2025 12:54 Note Text: [facility] - FOLLOW UP EVALUATION Recording using [employer] software for draft documentation of the visit was discussed with the patient/authorized industrial relations representative; all questions welcomed and answered. Patient/authorized industrial relations representative agreed to proceed Vincent Tello MD [id number] [facility] [id number] Dear Vincent Tello MD: I had the pleasure of seeing Mr. Kline for follow-up today. As you know he is a 85 year old right-handed male with a history of ET/PD since 2016(?) . 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 Subjective Previous Plan- 07/07/2023 Visit: Add carbidopa to every Sinemet [...] which is available over the counter - Interval History: Flex Kline is an 85-year-old male with a history of Parkinson's disease and essential tremor, presenting for follow-up. He is accompanied by his daughter, who provides additional history. Flex reports worsening tremors affecting both hands, with the right hand being more severely impacted. These tremors interfere with daily activities, such as eating, requiring him to sometimes switch utensils to his left hand. He describes the tremors as present pretty much all the time." He also reports increased drooling, occurring both during the day and at night, which he manages by ensuring he "catches" his saliva. He notes a decline in balance and walking ability, now requiring the use of a walker. He has experienced one fall six weeks ago, on his birthday while attempting to sit on the toilet, resulting in a head injury. Since the fall, he has been experiencing daily headaches, described as throbbing and located at the front and back of his head. He also reports photophobia and phonophobia. The headaches are sometimes alleviated by Tylenol and gabapentin. He does not endorse dizziness. A CT scan performed last week was reportedly clear. He is currently taking carbidopa-levodopa (Sinemet) twice daily, with doses at 9:00 AM and 3:30-4:00 PM. He reports not feeling any effects from the medication and believes he may not be taking it correctly. He was previously prescribed two pills three times a day but this was changed at some point by someone. He has been in a NH off and on. He also takes gabapentin 400 mg twice daily, reduced from 600 mg three times daily. He reports withdrawal symptoms, including shortness of breath, itching, and cold sweats, when doses are delayed. Flex has been living at home for the past ten days after a stay in assisted living. He receives assistance from home health physical therapy once a week and support from family. He expresses a desire for more therapy and access to exercise equipment. Movement Disorders Medications Schedule - as of the start of the visit: Medications 8 4 night Sinemet 25/100 2 2 gabapentin 400 mg 1 1 Parkinson's Motor Complications Medication duration: unclear Wearing off: no Dyskinesia: no Prior Anti-Parkinson Therapies Carbidopa/Levodopa Entacapone Other Movement Disorder Prior Therapies Primidone Questionnaires: In addition, the following areas that may be affected by abnormal involuntary movements were evaluated: Daily activities Difficulties with eating: Yes (moderate) Difficulties in dressing: Yes (moderate) Difficulties with hygiene activities: Yes (moderate) Difficulties with handwriting: Yes (severe) Difficulties with doing hobbies and other activities: Yes (severe) Difficulties turning in bed: Yes (moderate) Difficulties getting out of bed, car or chair: Yes (moderate) Tremors/Gait/Balance Shaking or tremors: Yes (severe) Walking and balance problems: Yes (moderate) Number of falls in the Last Month: 0 Gait freezing: Yes (moderate) Autonomic/Pain Lightheadeness on standing: Yes (slight) Urinary problems: Yes (moderate) Constipation problems: Yes (severe) Pain and other sensations: Yes (moderate) Speech/Swallowing Speech problems: Yes (slight) Drooling: Yes (moderate) Chewing and swallowing problems: Yes (mild) Sleep/Fatigue Sleep problems: Yes (moderate) Daytime sleepiness: Yes (moderate) Fatigue: Yes (moderate) Mood/Behavior Depression: PHQ-9 Score: 8 usually representing mild (5-9) depression. Anxiety: IOANA-7 Total Score: 4 usually representing no significant (0-4) anxiety. Finally, the following table shows the patient's overall global physical and mental health using the PROMIS scale: PROM (more content not included)... [facility] 05-16-2025 History of Presen t illness Narrative [facility] - FOLLOW UP EVALUATION Recording using [employer] software for draft documentation of the visit was discussed with the patient/authorized industrial relations representative; all questions welcomed and answered. Patient/authorized industrial relations representative agreed to proceed Vincent Tello MD [address] [facility] [id number] Dear Vincent Tello MD: I had the pleasure of seeing Mr. Kline for follow-up today. As you know he is a 85 year old right-handed male with a history of ET/PD since 2016(?) . Also with CIDP diagnosed 2013. Off treatment since 2017. Subjective Previous Plan- 07/07/2023 Visit: Add carbidopa to every Sinemet [...] which is available over the counter - Interval History: Flex Kline is an 85-year-old male with a history of Parkinson's disease and essential tremor, presenting for follow-up. He is accompanied by his daughter, who provides additional history. Flex reports worsening tremors affecting both hands, with the right hand being more severely impacted. These tremors interfere with daily activities, such as eating, requiring him to sometimes switch utensils to his left hand. He describes the tremors as present "pretty much all the time." He also reports increased drooling, occurring both during the day and at night, which he manages by ensuring he "catches" his saliva. He notes a decline in balance and walking ability, now requiring the use of a walker. He has experienced one fall six weeks ago, on his birthday while attempting to sit on the toilet, resulting in a head injury. Since the fall, he has been experiencing daily headaches, described as throbbing and located at the front and back of his head. He also reports photophobia and phonophobia. The headaches are sometimes alleviated by Tylenol and gabapentin. He does not endorse dizziness. A CT scan performed last week was reportedly clear. He is currently taking carbidopa-levodopa (Sinemet) twice daily, with doses at 9:00 AM and 3:30-4:00 PM. He reports not feeling any effects from the medication and believes he may not be taking it correctly. He was previously prescribed two pills three times a day but this was changed at some point by someone. He has been in a NH off and on. He also takes gabapentin 400 mg twice daily, reduced from 600 mg three times daily. He reports withdrawal symptoms, including shortness of breath, itching, and cold sweats, when doses are delayed. Flex has been living at home for the past ten days after a stay in assisted living. He receives assistance from home health physical therapy once a week and support from family. He expresses a desire for more therapy and access to exercise equipment. Movement Disorders Medications Schedule - as of the start of the visit: Medications 8 4 night Sinemet 25/100 2 2 gabapentin 400 mg 1 1 Parkinson's Motor Complications Medication duration: unclear Wearing off: no Dyskinesia: no Prior Anti-Parkinson Therapies Carbidopa/Levodopa Entacapone Other Movement Disorder Prior Therapies Primidone Questionnaires: In addition, the following areas that may be affected by abnormal involuntary movements were evaluated: Daily activities Difficulties with eating: Yes (moderate) Difficulties in dressing: Yes (moderate) Difficulties with hygiene activities: Yes (moderate) Difficulties with handwriting: Yes (severe) Difficulties with doing hobbies and other activities: Yes (severe) Difficulties turning in bed: Yes (moderate) Difficulties getting out of bed, car or chair: Yes (moderate) Tremors/Gait/Balance Shaking or tremors: Yes (severe) Walking and balance problems: Yes (moderate) Number of falls in the Last Month: 0 Gait freezing: Yes (moderate) Autonomic/Pain Lightheadeness on standing: Yes (slight) Urinary problems: Yes (moderate) Constipation problems: Yes (severe) Pain and other sensations: Yes (moderate) Speech/Swallowing Speech problems: Yes (slight) Drooling: Yes (moderate) Chewing and swallowing problems: Yes (mild) Sleep/Fatigue Sleep problems: Yes (moderate) Daytime sleepiness: Yes (moderate) Fatigue: Yes (moderate) Mood/Behavior Depression: PHQ-9 Score: 8 usually representing mild (5-9) depression. Anxiety: IOANA-7 Total Score: 4 usually representing no significant (0-4) anxiety. Finally, the following table shows the patient's overall global physical and mental health using the PROMIS scale: PROMIS-10 Flowsheet Row Office Visit from 05/16/2025 in Neurology [facility] from 07/07/2023 in Neurology Global Physical Health T Score 32.4 32.4 Global Mental Health T Score 41.1 38.8 0-10 Standard Pain Scale 3 3 *PROMIS-10 scoring scale: mean = 50, over 50 is above average, under 50 is below average ALLERGIES Allergen Reactions Beta Blockers [Beta* Shortness of Breath Tongue swelling Current Outpatient Medications Medication Sig clopidogrel (PLAVIX) 75 mg tablet Take 75 [...] CHEST PAIN. IF NO RELIEF CALL 911 WALKER ROLLATOR SEAT WITH 6" WHEELS - RED Use as directed. atorvastatin (LIPITOR) 80 mg tablet Take 0.5 tablets by mouth once daily. FARXIGA 5 mg tablet Take 5 mg by mouth once daily. aspirin 325 mg tablet Take 325 mg by mouth once daily. (Patient taking differently: Take 81 mg by mouth once daily.) cholecalciferol, vitamin D3, (VITAMIN D3 ORAL) Take by mouth. (Patient taking differently: Take by mouth. Mon wed and wed) B infantis/B ani/B tori/B bifid (PROBIOTIC 4X ORAL) Take by mouth. glimepiride (AMARYL) 4 mg tablet Take 4 mg by mouth twice daily with meals. (Patient taking differently: Take 2 mg by mouth once daily.) tamsulosin ER (FLOMAX) 0.4 mg cap Take 1 capsule by mouth once daily. magnesium oxide (MAG-OX) 400 mg (241.3 mg magnesium) tablet Take 1 tablet by mouth once daily. (Patient taking differently: Take 400 mg by mouth once daily. 2 tab daily) levothyroxine (SYNTHROID) 50 mcg tablet Take 50 mcg by mouth once daily. metFORMIN 1,000 mg ORAL tablet Take 1,000 mg by mouth twice daily with meals. carbidopa-levodopa (SINEMET 25-100) 25-100 mg per tablet Take 2 tablets by mouth three times a day. Take at 9a, 1p, 6p gabapentin 400 mg tab Take 400 mg by mouth three times a day for 180 days. Take at 9a, 1p, 6p No current facility-administered medications for this visit. Objective Vital Signs: BP 136/75 (BP Site: Left Arm, BP Position: Sitting, BP Cuff Size: Regular Adult) Pulse 78 SpO2 97% Orthostatic Vitals: None for this encounter No LMP for male patient. There is no height or weight on file to calculate BMI. Neurological Exam Mental Status Awake and alert. Language is fluent with no aphasia. Movement Disorders Scales Performed: MDS-UPDRS Motor subscale condition of exam Medication Off/On/Naiive ON Time of UPDRS 1221 Time of Last Medication 0930 Last Medication Taken DBS Right N/A DBS Left N/A MDS-UPDRS Motor subscale scores Speech 3-Moderate. Speech is difficult to understand to the point that some, but not most sentences are poorly understood. Facial Expression 3-Moderate. Masked facies with lips parted some of the time when the mouth is at rest. Rigidity Neck 3-Moderate. Rigidity detected without the activation maneuver. Full range of motion is achieved with effort. Rigidity Right Upper Extremity 2-Mild. Rigidity detected without the activation maneuver, but full range of motion is easily achieved. Rigidity Left Upper Extremity 2-Mild. Rigidity detected without the activation maneuver, but full range of motion is easily achieved. Rigidity Right Lower Extremity 2-Mild. Rigidity detected without the activation maneuver, but full range of motion is easily achieved. Rigidity Left Lower Extremity 2-Mild. Rigidity detected without the activation maneuver, but full range of motion is easily achieved. Finger Taps Right 1-Slight. a) the regular rhythm is broken with one or two interruptions or hesitations of the tapping movement, b) slight slowing, c) the amplitude decrements near the end of the 10 taps. Finger Taps Left 2-Mild. a) 3 to 5 interruptions during tapping, b) mild slowing, c) the amplitude decrements midway in the 10-tap sequence. Hand Movements Right 1-Slight. a) the regular rhythm is broken with one or two interruptions or hesitations of the movement, b) slight slowing, c) the amplitude decrements near the end of the task. Hand Movements Left 0-Normal. No problem. Arm Movements Right 2-Mild. a) 3 to 5 interruptions during the movements, b) mild slowing, c) the amplitude decrements midway in the sequence. Arm Movements Left 2-Mild. a) 3 to 5 interruptions during the movements, b) mild slowing, c) the amplitude decrements midway in the sequence. Toe Taps Right 1-Slight. a) the regular rhythm is broken with one or two interruptions or hesitations of the tapping movement, b) slight slowing, c) the amplitude decrements near the end of the ten taps. Toe Taps Left 2-Mild. a) 3 to 5 interruptions during the tapping movements, b) mild slowing, c) the amplitude decrements midway in the task. Leg Agility Right 1-Slight. a) the regular rhythm is broken with one or two interruptions or hesitations of the movement, b) slight slowing, c) the amplitude decrements near the end of the task. Leg Agility Left 1-Slight. a) the regular rhythm is broken with one or two interruptions or hesitations of the movement, b) slight slowing, c) the amplitude decrements near the end of the task. Arise From Chair 2-Mild. Pushes self up from arms of chair without difficulty. Gait 2-Mild. Independent walking but with substantial gait impairment. Gait Freezing 0-Normal. No freezing. Posture Stability 0-Normal. No problems: recovers with one or two steps. (deferred) Posture 3-Moderate. Stooped posture, scoliosis or leaning to one side that cannot be corrected volitionally to a normal posture by the patient. Body Bradykinesia 3-Moderate. Moderate global slowness and poverty of spontaneous movements. Postural Tremor Hand Right 2-Mild. Tremor is at least 1 but less than 3 cm in amplitude. Postural Tremor Hand Left 2-Mild. Tremor is at least 1 but less than 3 cm in amplitude. Kinetic Tremor Right 2-Mild. Tremor is at least 1 but less than 3 cm in amplitude. Kinetic Tremor Left 2-Mild. Tremor is at least 1 but less than 3 cm in amplitude. Rest Tremor Amplitude Right Upper Extremity 2-Mild. > 1 cm but < 3 cm in maximal amplitude. Rest Tremor Amplitude Left Upper Extremity 0-Normal. No tremor. Rest Tremor Amplitude Right Lower Extremity 0-Normal. No tremor. Rest Tremor Amplitude Left Lower Extremity 0-Normal. No tremor. Rest Tremor Amplitude Lip/Jaw 0-Normal. No tremor. Rest Tremor Constancy 2-Mild. Tremor at rest is present 26-50% of the entire examination period. MDS-UPDRS Motor subscale totals Left Total 15 Right Total 16 Midline Total 19 Tremor Total / 10 12 PIGD Total / 3 2 Overall Total 52 Change Better/Worse WORSE % Change Compared to Last Filed Total (!) 23.8 Assessment and Plan: Assessment Mr. Kline is a right-handed 85 year old year old male with ET/PD. 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 - Current medication regimen includes Carbidopa-Levodopa (Sinemet) 2 tablets twice daily, with doses at 0900 and 1600. - Increase Sinemet to 2 tablets TID, scheduled at 0900, 1300, and 1800. - Noted increased salivation; recommended sugarless candy or chewing sugarless gum to stimulate swallowing and reduce drooling. - Balance and gait instability observed; using a walker for mobility. - Home health physical therapy once a week; no occupational or speech therapy available. - Follow-up in 3 months to assess response to medication adjustments; appointment can be virtual. 2. Post-traumatic headache, not intractable, unspecified chronicity pattern (G44.309) - Headaches began after a fall 6 weeks ago, with daily occurrence and worsening intensity. - Described as throbbing, located in both the front and back of the head. - CT scan performed last week reportedly showed no acute intracranial abnormalities. - Currently taking Tylenol with some relief. - Increase Gabapentin to 400 mg TID, scheduled at 0900, 1300, and 1800, which may also help alleviate headaches. 3. Post herpetic neuralgia (B02.29) - Experiencing right-sided torso pain. - Previously on Gabapentin 600 mg TID, reduced to 400 mg BID - Increase Gabapentin to 400 mg TID, scheduled at 0900, 1300, and 1800. Patient's perception of importance for healthcare provider to let them know of research trials for which they may be eligible? Not very important Updated Movement Disorders Medication Schedule: Medications 9 1 6 Sinemet 25/100 2 2 2 gabapentin 400 mg 1 1 1 Return at or around: 08/16/25 Level of service : 81550 (40-68 min). Time spent 58 min on the day of service, which included preparing to see the patient, [id number] patient care, completing clinical documentation, performing a medically appropriate examination, counseling and educating the patient/family/caregiver, and ordering medications, tests, or procedures. Thank you for allowing me to be part of the clinical care of this patient! I look forward to continued participation in the patient s care with you. Please do not hesitate to call with any questions. Sincerely, Elana Castañeda MD documented in this encounter [facility] 05-11-2025 Radiology Diagnostic study note [facility] Imaging Services [address] [place], [place] [id number] Brain/Head without Contrast MR#: [id number] Acct: [id number] Name: FLEX KLINE Rep #: [id number] : 1940 M 85 From: Michelle Ramirez MD PCP: Dr. Felix Montelongo MD Status: REG CL I Study:Brain/Head without Contrast Date of Exa m: 05/10/25 Exam# [id number] Ordering Dr: Fatuma Camacho MD PROCEDURE: BRAIN/HEAD WITHOUT CONTRAST 05/11/2025 REASON FOR EXAM: CONCUSSION WITH LOSS OF CONCIOUSNESS TECHNIQUE: BRAIN/HEAD WITHOUT CONTRAST Coronal and Sagittal reconstruction series were provided. One or more dose reduction techniques were used (e.g., Automated exposure control, adjustment of the mA and/or kV according to patient size, use of iterative reconstruction technique. RADIATION DOSE SUMMARY: CTDlvol: mGy DLP: mGycm COMPARISON: none FINDINGS: Accentuated bilateral cerebral periventricular deep white matter hypodensities denoting hypoperfusion with bilateral cerebral periventricular and subcortical hypodense foci and patches. Ca-white matter differentiation is maintained. Normal CT appearance of the posterior fossa structures. Ca-white matter differentiation is maintained. No intra or extra-axial areas of blood densities. Dilated ventricular system, cortical sulci and extra-axial CSF spaces. No definite calvarial fractures. No midline shifts or deformity. The osseous structures in the skull base are unremarkable. Paranasal sinuses are unremarkable. Vascular atheromatous calcifications. CT/Brain/Head without Contrast IMPRESSION: No acute cerebrovascular pathology. If there is high clinical suspicion, correlate to MRI No intra or extra-axial acute hematomas. Bilateral cerebral microvascular ischemic changes with age matches brain involutional changes [facility] CC: Dr. Dirk Camacho MD; Dr. Felix Montelongo MD ~ Signs And Displays Salesperson: Signed [facility] 2025 Note HNO ID: [id number] Author: HARJINDER JONES MD Service: ? Author Type: Physician Type: Progress Notes Filed: 2025 12:16 Note Text: Harjinder Jones MD Interventional Cardiology [address] [address] [phone] Chief Complaint Patient presents with: Follow Up: 6 week follow up, c/o chest pain HISTORY OF PRESENT ILLNESS: Mr. Kline is a 85 year old male seen in my office today for follow-up patient had a prior history of severe kalispel coronary artery disease with prior history of [...] 30 tablet 3 WALKER ROLLATOR SEAT WITH 6" WHEELS - RED Use as directed. 1 [...] visit. (more content not included)... [facility] 2025 History of Presen t illness Narrative Images from the original note were not included. Harjinder Jones MD Interventional Cardiology [address] [place] [address] [phone] Chief Complaint Patient presents with: Follow Up: 6 week follow up, c/o chest pain HISTORY OF PRESENT ILLNESS: Mr. Kline is a 85 year old male seen in my office today for follow-up patient had a prior history of severe kalispel coronary artery disease with prior history of [...] 30 tablet 3 WALKER ROLLATOR SEAT WITH 6" WHEELS - RED Use as directed. 1 [...] 138/60 Pulse 82 Resp 16 Ht 5' 9.5" (1.77m) Wt 180 lb (81.6kg) SpO2 98% [...] Value 01/22/2025 12.8 07/14/2018 Test sent to [facility]. Hematocrit (%) Date Value 01/22/2025 37.7 07/14/2018 Test sent to [facility]. WBC (k/uL) Date Value 01/22/2025 5.09 07/14/2018 Test sent to [facility]. Platelet Count (k/uL) Date Value 01/22/2025 216 07/14/2018 Test sent to [facility]. BMP: Glucose (mg/dL) Date Value [...] Ref Range Status 02/23/2018 Test sent to [facility]. <200 mg/dL Final Comment: Account Credited HIDE HDL Cholesterol Date Value Ref Range Status 02/23/2018 Test sent to [facility]. >39 mg/dL Final Comment: Account Credited HIDE LDL Cholesterol Date Value Ref Range Status 02/23/2018 Test sent to [facility]. <100 mg/dL Final Comment: Account Credited HIDE Triglyceride Date Value Ref Range Status 02/23/2018 Test sent to [facility]. <150 mg/dL Final Comment: Account Credited HIDE Hemoglobin A1C: No results found for: "HGBA1C" TSH: No results found for: TSHREFL Prior [...] aerobic exercise 2. Coronary artery disease involving kalispel coronary artery of kalispel heart without angina pectoris - ICD9: 414.01, [...] correct any errors. documented in this encounter [facility] 03-02-2025 Instructions Kwan Estrella MD - [...] at that time. documented in this encounter [facility] 03-02-2025 History of Presen t illness Narrative Images from the original note were not included. [facility] SECTION OF CARDIAC PACING and ELECTROPHYSIOLOGY OUTPATIENT VISIT DATE March 02, 2025 OUTPATIENT VISIT TYPE NEW PRIMARY CARE PHYSICIAN: Vincent Tello [address] [place] [address] REFERRING PHYSICIAN: Harjinder Jones [address], [address] [facility] [address] chief complaint on file. HISTORY OF PRESENT [...] currently a resident at [facility]. Had a recent UTI in 10/2024, still [...] fibrillation ECG 11/29/23 - SR 77 bpm MT 210 QRS 102 QT/c 364 411 PVC [...] rare (<1.0%). Isolated VEs were rare (<1.0%, 52670), VE Couplets were rare (<1.0%, 63), and [...] inflammatory demyelinating polyneuropathy) (HCC) Coronary atherosclerosis Diabetes ([facility]) Herpes zoster with other nervous system complications(053.19) Hyperlipidemia Hypertrophy of prostate without urinary obstruction and other lower urinary tract symptoms (LUTS) Hyposmolality and/or hyponatremia Intervertebral lumbar disc disorder with myelopathy, lumbar region Mononeuritis of unspecified site 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) Peripheral vascular disease, unspecified ([facility]) Type II or unspecified type diabetes [...] mouth once daily. WALKER ROLLATOR SEAT WITH 6" WHEELS - RED Use as directed. gabapentin [...] hands EKG 03/02/25 .Sinus rhythm 68 bpm MT 264ms First degree AVB QRS 96ms QT/c [...] MD This note was partially generated using Skyera voice recognition system. documented in this encounter [facility] 03-02-2025 Note HNO ID: [id number] Author: KWAN ESTRELLA MD Service: ? Author Type: Physician Type: Progress Notes Filed: 03/02/2025 11:18 Note Text: [facility] SECTION OF CARDIAC PACING and ELECTROPHYSIOLOGY OUTPATIENT VISIT DATE March 02, 2025 OUTPATIENT VISIT TYPE NEW PRIMARY CARE PHYSICIAN: Vincent Tello [address] [place] [address] REFERRING PHYSICIAN: Harjinder Jones [address], [address] [facility] [address] chief complaint on file. HISTORY OF PRESENT [...] currently a resident at [facility]. Had a recent UTI in 10/2024, still [...] fibrillation ECG 11/29/23 - SR 77 bpm MT 210 QRS 102 QT/c 364 411 PVC [...] rare (<1.0%). Isolated VEs were rare (<1.0%, 00770), VE Couplets were rare (<1.0%, 63), and [...] central nervous system(341.8) Peripheral vascular disease, unspecified ([facility]) Type II or unspecified type diabetes [...] hist (more content not included)... [facility] 02-27-2025 Evaluation note Diagnosis Onset Date Resolution Type 2 diabetes mellitus acute February 27, 2025 10:51am CAD (coronary artery disease) chronic February 27, 2025 10:51am CKD (chronic kidney disease) chronic February 27, 2025 10:51am [facility] [employer] Work Phone: 1(364) 944-624403-03-2025 NoteHNO ID: [id number] Author: BLANCA MARCELINO LPN Service: ? Author Type: LICENSED NURSE Type: Progress Notes Filed: 01/22/2025 15:05 Note Text: EVENT MONITOR DISPOSABLE PATCH INSTRUCTIONS Patient Name: Flex [facility] Number: [id number] Skin prepped and cleansed with alcohol Patch secured to prepped area Monitor Activated Serial #: [id number] Patient Instructed: Prescribed order timeframe Bathing guidelines Usage of event button and diary documentation Return of monitor at the end of prescribed order Call with problems [phone] or [phone]. [phone] Patient expresses a good understanding of instructions [facility] History of Present illness Narrative* Blanca Marcelino LPN - 01/22/2025 3:04 PM EST EVENT MONITOR DISPOSABLE PATCH INSTRUCTIONS Patient Name: Flex [facility] Number: [id number] Skin prepped and cleansed with alcohol Patch secured to prepped area Monitor Activated Serial #: [id number] Patient Instructed: Prescribed order timeframe Bathing guidelines Usage of event button and diary documentation Return of monitor at the end of prescribed order Call with problems [phone] or [phone]. [phone] Patient expresses a good understanding of instructions lBanca Marcelino LPN * Harjinder Jones MD - 01/22/2025 2:34 PM EST Images from the original note were not included. Harjinder Jones MD Interventional Cardiology [address] [address] [phone] Chief Complaint Patient presents with: Follow Up: [...] central nervous system(341.8) Peripheral vascular disease, unspecified ([facility]) Type II or unspecified type diabetes [...] 30 tablet 3 WALKER ROLLATOR SEAT WITH 6" WHEELS - RED Use as directed. 1 [...] 156/70 Pulse 91 Resp 14 Ht 5' 9.5" (1.77m) Wt 176 lb (79.8kg) SpO2 97% [...] Value 04/22/2021 12.5 07/14/2018 Test sent to [facility]. Hematocrit (%) Date Value 04/22/2021 36.8 07/14/2018 Test sent to [facility]. WBC (k/uL) Date Value 04/22/2021 5.50 07/14/2018 Test sent to [facility]. Platelet Count (k/uL) Date Value 04/22/2021 197 07/14/2018 Test sent to [facility]. BMP: Glucose (mg/dL) Date Value [...] Ref Range Status 02/23/2018 Test sent to [facility]. <200 mg/dL Final Comment: Account Credited HIDE HDL Cholesterol Date Value Ref Range Status 02/23/2018 Test sent to [facility]. >39 mg/dL Final Comment: Account Credited HIDE LDL Cholesterol Date Value Ref Range Status 02/23/2018 Test sent to [facility]. <100 mg/dL Final Comment: Account Credited HIDE Triglyceride Date Value Ref Range Status 02/23/2018 Test sent to [facility]. <150 mg/dL Final Comment: Account Credited HIDE Hemoglobin A1C: No results found for: "HGBA1C" TSH: No results found for: "TSHREFL" Prior Cardiac Testing None Assessment and Plan: [...] to check his BMP 3. Atherosclerosis of kalispel coronary artery of kalispel heart without angina pectoris - ICD9: 414.01, ICD10: I25.10 Stable status prior history of bypass surgery Harjinder Jones MD Follow up plannin weeks Electronically signed by Harjinder Jones MD on January 22, 2025, 2:34 PM The above note was partially created using a dictation recognition software. A reasonable attempt has been made to correct any errors. [facility] NoteHNO ID: [id number] Author: HARJINDER JONES MD Service: ? Author Type: Physician Type: Progress Notes Filed: 01/22/2025 14:39 Note Text: Harjinder Jones MD Interventional Cardiology [address] [place] [id number] [id number] Chief Complaint Patient presents with: Follow Up: [...] inflammatory demyelinating polyneuropathy) (HCC) Coronary atherosclerosis Diabetes ([facility]) Herpes zoster with other nervous system complications(053.19) Hyperlipidemia Hypertrophy of prostate without urinary obstruction and other lower urinary tract symptoms (LUTS) Hyposmolality and/or hyponatremia Intervertebral lumbar disc disorder with myelopathy, lumbar region Mononeuritis of unspecified site 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) Peripheral vascular disease, unspecified ([facility]) Type II or unspecified type diabetes [...] 30 tablet 3 WALKER ROLLATOR SEAT WITH 6" WHEELS - RED Use as directed. 1 [...] sinus concepcion (more content not included)...[facility] 01-22-2025 NoteHNO ID: [id number] Author: HARJINDER JONES MD Service: ? Author [...] rare (<1.0%). Isolated VEs were rare (<1.0%, 18217), VE Couplets were rare (<1.0%, 63), and VE Triplets were rare (<1.0%, 19). Ventricular Bigeminy and Trigeminy were present. Difficulty discerning atrial activity making definitive diagnosis difficult to ascertain.[facility]01-09-2025 Evaluation note* Diagnosis Onset Date Resolution Status [...] kidney disease) chronic February 27, 2025 10:51am [facility] Work Phone: [phone]) 611-572212-20-2024 Telephone encounter Note* Telephone Encounter - Florence Reed MA - 11/10/2024 11:09 AM EST Called pt to offer appt on cancellation list. Pt is currently in rehab facility and unable to come.Will call once he is out if needs to be seen sooner. Florence Reed MA [facility]12-20-2024 Miscellaneous Notes* Telephone Encounter - Florence [...] Ana Laura Rosario RN [facility] Telephone encounter Note * Telephone Encounter - Ana Laura Rosario RN - 11/03/2024 9:09 AM EST Called and left VM asking the patient to call back to schedule and office visit. If patient calls back please offer 11/13/24 at 1:20pm or 11/27/24 at 1:20pm and ask for an update on the patient's symptoms. Ana Laura Rosario RN [facility]12-11-2024 [facility] Medical Records Department [address] [place] [id number] Discharge Summary 11/01/24 1501 MR#: [id number] Acct: [id number] Name: FLEX KLINE Rep #: [id number] : 1940 84 From: Sung Rhodes DO PCP: Dr. Felix Montelongo MD Status:ADM IN Location: [facility] [id number] Providers Date of Admission: 10/27/24 Primary Care [...] on Synthroid VTE prophylaxis: LMWH Disposition: to [facility] pending insurance authorization. 10/31: Talked about aggressiveness [...] release 81 mg PO DAILY@0800 [facility] 07/28/18 nitroglycerin 0.4 mg sublingual tablet 0.4 [...] years or YOUNGER s (more content not included)...[facility]12-06-2024 Evaluation note* Diagnosis Onset Date Resolution Status Admit Date Acute UTI resolved October 27, 2024 4:33pm Chest pain resolved October 27, 2024 4:33pm CAD (coronary artery disease) chronic November 30 9:59am Chest pain chronic November 30 025 9:59am Diabetes chronic November 30 025 9:59am Diastolic dysfunction chronic Nov 9:59am Dyslipidemia chronic November 30, 2024 9:59am Essential hypertension chronic Ja nuary 2024 9:59am Parkinson's disease chronic Janua ry 2024 9:59am 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 I think my symptoms are more consistent with congestive heart failure than heartburn. The ranolazine is not working because I am out of breath. I am getting out of breath every couple of days. What should be done about it? Please Advise Ana Laura Rosario RN [facility]10-21-2024 Telephone encounter Note* Telephone Encounter - [...] FOR CHEST PAIN. IF NO RELIEF CALL 91Sveta Hernandez September 11, 2024 8:46 AM [facility]10-21-2024 Miscellaneous Notes* Telephone Encounter - Ruth [...] 11, 2024 8:46 AM [facility] History of Present illness Narrative* Rocío Wagner PA-C - 02/01/2024 3:01 PM EDT This Team Access Model visit is a phone encounter. It required patient-provider interaction for themedical decision making as documented below. Patient agrees to the visit: Yes Patient Location: [place] I have communicated my name and active licensure. The patient's identity and physical location wereverified at the time of this visit. Either the patient or their legal industrial relations representative has been informed of the risks [...] Parkinson's and associated tremors. Last A1c at [facility] was in 07/14 was 6.9. 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 gabapentin [...] ICD9: 332.0, ICD10: G20.A1 CCM per Dr. Castañeda - CBC + DIFF Follow-up 3 to [...] care. Rocío Wagner PA-C [facility] Miscellaneous Notes* Telephone Encounter - Juliana [...] pt. Florence Santos LPN documented in [facility]-14-2024 Miscellaneous Notes* Telephone Encounter - Rocío [...] prescription? Rocío Wagner PA-C [facility]24 History of Present illness Narrative* Rocío Wagner PA-C - 01/04/2024 3:13 PM EST CC: Patient presents with: New Patient HPI Flex Kline is a 83 year old male who presents today to establish care. Had comprehensive blood panel done about 1 month ago through previous primary, Dr. Montelongo. Parkinsons/CIDP (Chronic inflammatory demyelinating polyneuropathy)/essential tremor: CIDP dx ~2012, Parkinson's dx in 2015 (per neuro note). Per pt, was only diagnosed 1.5-2 years ago. Stable on sinemet. Sees Dr. Castañeda. Previously on steroids and plasma infusions Post-herpetic [...] side effects. Home blood sugar readings: checks "every now and then." Usually ~100-110 fasting Hypoglycemia: Symptomatic when sugars are >100 "but it hasn't happened arnold long time." Diabetic diet: Yes, eats plenty of fruits and vegetables Patient's last HgA1C was 6.7-6.8 on most recent check about a month ago CAD/HLD, status post 5 vessel bypass ~15 years ago: Sees Dr. Jones. Several stents placed~2016. Last heart cath in 2020, no intervention indicated at that time. CKD: Cr 1.55 GFR 46 from most recent labs through [facility] in 07/14. Does not see a pediatric neuropsychologist. REVIEW OF SYSTEMS See HPI All other systems negative. PAST MEDICAL HISTORY Diagnosis Date CIDP (chronic inflammatory demyelinating polyneuropathy) ([facility]) Coronary atherosclerosis Diabetes (HCC) Herpes zoster with other nervous system complications(053.19) Hyperlipidemia Hypertrophy of prostate without urinary obstruction and other lower urinary tract symptoms (LUTS) Hyposmolality and/or hyponatremia Intervertebral lumbar disc disorder with myelopathy, lumbar region Mononeuritis of unspecified site 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) Peripheral vascular disease, unspecified ([facility]) Type II or unspecified type diabetes [...] 73 Resp 14 Ht 176.5 cm (5' 9.5") Wt 83 kg (183 lb) SpO2 97% [...] complication, without long-term current use of insulin ([facility]) - ICD9: 250.00, ICD10: E11.9 (primary [...] ICD10: G20.A1 Continue current management per Dr. Castañeda - BASIC METABOLIC PNL 4. CIDP (chronic [...] plan. Rocío Wagner PA-C documented in this encounterFlower Hospital08-16-2023 Instructions* Patient Instructions* Elana Castañeda MD - 07/07/2023 7:24 AM EDT Images [...] or you can send a message through Talend. You can also now schedule and select appointments through [employer]. Elana Castañeda MD Constipation and Other Gastrointestinal Problems in [...] future constipation. Treatments fall into two categories: vorc-wge-wqlpvyg and prescription therapies. Remember: consult with your [...] day and your own convenience and preference. Oavk-bso-Ooswzpr Products Wcsl-wic-rxddhjv treatments for constipation can be purchased at [...] It also comes as a capsule ([place] Smooth Move ). ving with PD Constipation [...] easier to pass. These can be used skilled nursing but should not be used in combination [...] after other remedies have failed. Among the ajzf-oyh-fkvqwbz laxatives, they are most likely to cause [...] psyllium (Perdiem ). Common Side Effects of Ysnz-xig-Uqgunrv Products for Constipation Emollient (Stool Softeners) Skin [...] any side effects listed. Prescription Products When jwdp-txj-klfstje remedies fail, your healthcare provider may recommend [...] Stimulant X Bisacodyl (Dulcolax ) Stimulant X [place] Oil Stimulant X Cellulose (Unifiber ) Bulk [...] (Senokot ) Stimulant X Adapted from: [facility] Website, accessed March 17, 2016, www.[facility]/[employer]/druginformation/ [id number] Special Precautions For your safety, consult your [...] For more information and resources see https://www.parkinson.org/. [facility] for the [facility]. documented in this encounterFlower Hospital08-16-2023 History of Present illness Narrative* Elana Castañeda MD - 07/07/2023 7:02 AM EDT [facility] - FOLLOW UP EVALUATION - VIRTUAL VISIT Felix Montelongo MD [address] [address] Dear Felix Montelongo MD: I had the pleasure of seeing Mr. Kline for follow-up today. As you know he is a 83 year old right-handed male with a history of ET/PD since 2015(?) . 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 He is seen alone. We had a visit using: [employer] I have communicated my name and active licensure. The patient's identity and physical location wereverified at the time of this visit. Either the patient or their legal industrial relations representative has been informed of the risks [...] to schedule and only given options of [place] or [place]. Open to [facility]. Constipation. Prunes used [...] 800 mg by mouth three times daily. /2 - tab 6 times daily) clopidogrel (PLAVIX) [...] 1 1 1 Level of service : 70672 (40-54 min). Time spent 41 min on the day of service, which included preparing to see the patient, sagh-pl-qgyl patient care, completing clinical documentation, and counseling and educating the patient/family/caregiver. Thank you for allowing me to be part of the clinical care of this patient! I look forward to continued participation in the patient s care with you. Please do not hesitate to call with any questions. Sincerely, Elana Castañeda MD documented in this encounterFlower Hospital03-31-2023 Miscellaneous Notes* Telephone Encounter - Caitlin Tenorio MA - 02/19/2023 7:56 AM EDT Message therapy order mailed to patient home per Dr. Castañeda request documented in this encounterFlower Hospital03-31-2023 Instructions* Patient Instructions* Elana Castañeda MD - 02/19/2023 7:21 AM EDT It [...] or you can send a message through [employer]end. You can also now schedule and select appointments through [facility]. Elana Castañeda MD documented in this encounterFlower Hospital03-31-2023 History of Present illness Narrative* Elana Castañeda MD - 02/19/2023 7:02 AM EDT [facility] - FOLLOW UP EVALUATION - VIRTUAL VISIT Felix Montelongo MD, MD [address] [address] Dear Felix Montelongo MD, MD: I had the pleasure of seeing Mr. Kline for follow-up today. As you know he is a 82 year old right-handed male with a history of ET/PD since 2016(?) . 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 We had a visit using: [employer] I have communicated my name and active licensure. The patient's identity and physical location wereverified at the time of this visit. Either the patient or their legal industrial relations representative has been informed of the risks [...] 1 1 1 Level of service : 72688 ( 30-39 min). Time spent 30 min on the day of service, which included preparing to see the patient, tqzb-oc-ptov patient care, completing clinical documentation, counseling and educating the patient/family/caregiver, and ordering medications, tests, or procedures. Thank you for allowing me to be part of the clinical care of this patient! I look forward to continued participation in the patient s care with you. Please do not hesitate to call with any questions. Sincerely, Elana Castañeda MD documented in this encounterFlower Hospital01-27-2023 Instructions* Patient Instructions* Elana Castañeda MD - 12/18/2022 7:35 AM EST It [...] or you can send a message through [employer]end. You can also now schedule and select appointments through [facility]. Elana Castañeda MD documented in this encounterFlower Hospital01-27-2023 History of Present illness Narrative* Elana Castañeda MD - 12/18/2022 6:56 AM EST [facility] - FOLLOW UP EVALUATION - VIRTUAL VISIT Felix Montelongo MD, MD [address] [address] Dear Felix Montelongo MD, MD: I had the pleasure of seeing Mr. Kline for follow-up today. As you know he is a 82 year old right-handed male with a history of ET/PD since 2016(?) . Also with CIDP diagnosed 2012. Off treatment since 2017. He is seen with a daughter. We had a visit using: [employer] I received consent from the patient to [...] 1 1 1 Level of service : 80872 (40-54 min). Time spent 51 min on the day of service, which included preparing to see the patient, hotr-ek-uctw patient care, completing clinical documentation, and counseling and educating the patient/family/caregiver. Thank you for allowing me to be part of the clinical care of this patient! I look forward to continued participation in the patient s care with you. Please do not hesitate to call with any questions. Sincerely, Elana Castañeda MD documented in this encounterFlower Hospital12-21-2022 Miscellaneous Notes* Telephone Encounter - Jazzy Garza [facility] - 11/11/2022 9:17 AM EST Last FUV Jun 2022 with ANNA. Next FUV 12/17/22 with KA. Electronically signed by Jazzy Garza [facility] at 11/11/2022 9:18 AM EST documented in this encounterFlower Hospital07-05-2022 Miscellaneous Notes* Telephone Encounter - Marlena Moya - 05/26/2022 1:[address] Castañeda had an opening on 06/03/22. Added patient to schedule; notified him of appt details via voicemail and Talend message. Marlena Moya * Telephone Encounter - [...] 9:06 AM Routing comment documented in this encounterFlower Hospital05-04-2022 Miscellaneous Notes* Telephone Encounter - Sharron Higginbotham MA - 03/25/2022 1:55 PM EDT Called patient to get the pre-rooming intake. I left voice mail for a returned call to the office to have this completed. If patient returns call please transfer call to myself or another clinical staff member. Thanks! Sharron Higginbotham MA [facility]* Diagnosis Onset Date Resolution Status CKD (chronic kidney disease) chronic Edema chronic Fatigue chronic HTN (hypertension) chronic Hypothyroidism chronic Type II diabetes mellitus, uncontrolled chronic [facility] Work Phone: Evaluation note* Diagnosis Parkinson disease (HCC)- Primary Paralysis agitans Essential tremor Essential and other specified forms of tremor documented in this encounter [facility] note* Diagnosis Parkinson disease (HCC)- Primary Paralysis agitans Muscle stiffness Unspecified disorder of muscle, ligament, and fascia Muscle pain Mylagia and myositis, unspecified documented in this encounter [facility] note* Diagnosis Parkinson disease (HCC)- Primary Paralysis agitans Slow transit constipation documented in this encounter [facility] noteNo assessment information availableWUniversity Hospitals [facility] Work Phone: Evaluation note* Diagnosis Controlled type 2 diabetes mellitus without complication, without long-term current use of insulin ([facility])- Primary Acquired hypothyroidism Unspecified hypothyroidism Parkinson's disease, unspecified whether dyskinesia present, unspecified whether manifestations fluctuate CIDP (chronic inflammatory demyelinating polyneuropathy) ([facility]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 Essential tremor Essential and other specified forms of tremor 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 Stage 3a chronic kidney disease ([facility]) documented in this encounter [facility] note* Diagnosis Controlled type 2 diabetes mellitus without complication, without long-term current use of insulin ([facility])- Primary Acquired hypothyroidism Unspecified hypothyroidism Stage 3a chronic kidney disease (HCC) Parkinson's disease, unspecified whether dyskinesia present, unspecified whether manifestations fluctuate ([facility]) documented in this encounter [facility] note* Diagnosis Palpitations- Primary Diastolic congestive heart failure, unspecified HF chronicity (HCC) Atherosclerosis of [place] coronary artery of [place] heart without angina pectoris documented in this encounter [facility] note* Diagnosis Coronary artery disease involving [place] coronary artery of [place] heart, unspecified whether angina present- Primary PAC (premature atrial contraction) Supraventricular premature beats PVC (premature ventricular contraction) Other premature beats Atrial tachycardia (HCC) Other specified cardiac dysrhythmias documented in this encounter [facility] HospitalEvaluation [facility]* Diagnosis Primary hypertension- Primary Unspecified essential hypertension Coronary artery disease involving [place] coronary artery of [place] heart without angina pectoris documented in this encounter [facility] note* Diagnosis Parkinson's disease without dyskinesia or fluctuating manifestations (HCC)- Primary Post-traumatic headache, not intractable, unspecified chronicity pattern 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 documented in this encounter [facility] note* Diagnosis Parkinson's disease without dyskinesia or fluctuating manifestations (HCC) 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 documented in this encounter [facility] HospitalRe[facility] for [facility] (narrative)No reason for referral information availableWUniversity Hospitals [facility] Work Phone: Summary Purpose Family [...] FoundDocuments on File Type Date Recorded Patient Repair Service Clerk Expl anation Advance Directive(s) 04/18/2021 8:33 AM Advance Directive(s) 02/24/2016 11:33 AM Advance Directive(s) 02/18/2016 4:39 PM Advance Directive Response Recorded Date/ Time Advance Directives No March 14 2:48pm Living Will No April 21, 2021 8 :41pm Power of Fur Blowing Machine Operator No April 21, 2021 8:41pm Advance Directive Response Recorded Date/ Time Advance Directives No March 14 1:48pm Living Will No April 21, 2021 7 :41pm Power of Fur Blowing Machine Operator No April 21, 2021 7:41pm Advance Directive Response Recorded Date/ Time Living Will No October 27 6:24pm Do you have a Healthcare Power of Fur Blowing Machine Operator? 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 RE-EST. DIABETES INT LABS Reason for Visit [...] WORK November 30, 2024 5: 15am S/P [facility] 11/01November 30, 2024 9: 59am ADMISSION EXAM December 04, 2024 1 2:52pm SKILLED NURSING LAB WORK December 07, 2024 5:00am ADMISSION EXAM December 19, 2024 1 :28pm NEW CONCERN December 21, 2024 2 :05pm NEW CONCERN December 26, 2024 1 :17pm SKILLED NURSING LAB WORK January 04 5:00am NEW CONCERN January 04, 2025 12:35pm SKILLED NURSING LAB WORK January 31, 2025 5 :00am [...] ADMISSION EXAM December 04, 2024 1 2:52pm SKILLED NURSING LAB WORK December 07, 2024 5:00am ADMISSION EXAM December 19, 2024 1 :28pm NEW CONCERN December 21, 2024 2 :05pm NEW CONCERN December 26, 2024 1 :17pm SKILLED NURSING LAB WORK January 04 5:00am NEW CONCERN January 04, 2025 12:35pm SKILLED NURSING LAB WORK January 31, 2025 5 :00am 21 M FU RS 10/26 CX 10/31February 27 10:51am SKILLED NURSING LAB WORK February 28, 2025 5: 00am [...] 27, 2025 10:51am Chief Complaint Admit Date SKILLED NURSING LAB WORK December 07, 2024 5:00am ADMISSION EXAM December 19, 2024 1 :28pm NEW CONCERN December 21, 2024 2 :05pm NEW CONCERN December 26, 2024 1 :17pm SKILLED NURSING LAB WORK January 04 5:00am NEW CONCERN January 04, 2025 12:35pm SKILLED NURSING LAB WORK January 31, 2025 5 :00am NEW CONCERN February 26, 2025 3:51 pm 21 M FU RS 10/26 CX 10/31February 27 10:51am SKILLED NURSING LAB WORK February 28, 2025 5: 00am LABWORK March 01, 2025 5:0 0am Reason for Visit Admit Date Type 2 diabetes mellitus February 27, 2025 10:51am CAD (coronary artery disease) February 27, 2025 10:51am CKD (chronic kidney disease) February 27, 2025 10:51am Chief Complaint Admit Date SKILLED NURSING LAB WORK January 31, 2025 5 :00am NEW CONCERN February 26, 2025 3:51 pm 21 M FU RS 10/26 CX 10/31February 27 10:51am SKILLED NURSING LAB WORK February 28, 2025 5: 00am LABWORK March 01, 2025 5:0 0am SKILLED NURSING LAB WORK March 29, 2025 4:00 am NEW CONCERN April 13, 2025 2:17p m SKILLED NURSING LAB WORK April 26, 2025 5:0 0am LABOWRK May 02, 2025 5:00 am LABWORK May 03, 2025 5:00 am Concussion with loss of consciousness of unspecifi May 10, 2025 6:29pm Chief Complaint Admit Date SKILLED NURSING LAB WORK March 29, 2025 4:00 am NEW CONCERN April 13, 2025 2:17p m SKILLED NURSING LAB WORK April 26, 2025 5:0 0am LABOWRK May 02, 2025 5:00 am LABWORK May 03, 2025 5:00 am Concussion with loss of consciousness of unspecifi May 10, 2025 6:29pm Admission Exam May 30, 2025 6:47p m LABWORK June 22, 2025 5:0 0am Reason for Referral Specialty Diagnoses / Procedures Referred By Contac t Referred To Contact Diagnoses Parkinson disease (HCC) Essential tremor Procedures PROVIDER ORDERED FOLLOW UP OFFICE/OUTPATIENT NEW HIGH MDM 60-74 MINUTES Elana Castañeda MD [address] [address] Referral ID Status Reason Start Date Expiration Date Visits Requested Visits Authorized [id number] Pending Review PCP Requested Referral 02/15/2023 12/18/2023 1 1 Specialty Diagnoses / Procedures Referred By Contac t Referred To Contact Diagnoses Parkinson disease (HCC) Procedures PROVIDER ORDERED FOLLOW UP OFFICE/OUTPATIENT NEW HIGH MDM 60-74 MINUTES Elana Castañeda MD [address] [address] Referral ID Status Reason Start Date Expiration Date Visits Requested Visits Authorized [id number] Pending Review PCP Requested Referral 05/21/2023 02/19/2024 1 1 Specialty Diagnoses / Procedures Referred By Contac t Referred To Contact Diagnoses Parkinson disease (HCC) Muscle stiffness Muscle pain Procedures CONSULT TO MASSAGE THERAPY OFFICE/OUTPATIENT NEW [facility] 60-74 MINUTES Elana Castañeda MD [address] [place] [address] Referral ID Status Reason Start Date Expiration Date Visits Requested Visits Authorized [id number] Pending Review PCP Requested Referral 02/19/2023 02/19/2024 1 1 Referral ID Status Reason Start Date Expiration Date Visits Requested Visits Authorized [id number] Pending Review PCP Requested Referral 07/06/2024 1 1 Specialty Diagnoses / Procedures Referred By Contac t Referred To Contact Diagnoses Parkinson disease (HCC) Procedures CONSULT TO MASSAGE THERAPY OFFICE/OUTPATIENT [facility] 60-74 MINUTES Elana Castañeda MD [address] [address] Referral ID Status Reason Start Date Expiration Date Visits Requested Visits Authorized [id number] Pending Review PCP Requested Referral 07/07/2023 07/06/2024 1 1 Specialty Diagnoses / Procedures Referred By Contac t Referred To Contact [facility] Diagnoses Parkinson disease (HCC) Procedures CONSULT TO PHYSICAL THERAPY PHYSICAL THERAPY EVALUATION HIGH COMPLEX 45 MINS Elana Castañeda MD [address] [address] [facility] [place] [address] Referral ID Status Reason Start Date Expiration Date Visits Requested Visits Authorized [id number] Pending Review Auto-Generat ed Referral 07/07/2023 07/06/2024 1 1 Additional Source Comments (unrecognized sect ion and content) No Status Records FoundNo Status Records FoundNo Status Records FoundNo Status Records FoundNo Status Records FoundNo Status Records Found INFORMATION SOURCE (unrecogn ized section and content) DATE CREATED AUTHOR 05/12/2018 Joseph [address] [facility] DATE CREATED AUTHOR AUTHOR'S ORGANIZ ATION 07/11/2021 [facility] DATE CREATED AUTHOR AUTHOR'S ORGANIZ ATION 07/21/2021 [facility] DATE CREATED AUTHOR AUTHOR'S ORGANIZ ATION 03/04/2025 [facility] DATE CREATED AUTHOR AUTHOR'S ORGANIZ ATION 06/24/2025 [facility] DATE CREATED AUTHOR AUTHOR'S ORGANIZ ATION 07/04/2025 [facility] Source Comments (unrecognize d section and content) In the event this informatio n is protected by the Federal Confidentiality of Alcohol and Drug Abuse Patient Records regulations: The Federal rules restrict any use of the information to criminally investigate or prosecute any alcohol or drug abuse patient.[facility] HospitalIn the event this information is protected by the Federal Confidentiality of Alcohol and Drug Abuse Patient Records regulations: The Federal rules restrict any use of the information to criminally investigate or prosecute any alcohol or drug abuse patient.[facility] HospitalIn the event this information is protected by the Federal Confidentiality of Alcohol and Drug Abuse Patient Records regulations: The Federal rules restrict any use of the information to criminally investigate or prosecute any alcohol or drug abuse patient.[facility] HospitalIn the event this information is protected by the Federal Confidentiality of Alcohol and Drug Abuse Patient Records regulations: The Federal rules restrict any use of the information to criminally investigate or prosecute any alcohol or drug abuse patient.[facility] HospitalIn the event this information is protected by the Federal Confidentiality of Alcohol and Drug Abuse Patient Records regulations: The Federal rules restrict any use of the information to criminally investigate or prosecute any alcohol or drug abuse patient.[facility] HospitalIn the event this information is protected by the Federal Confidentiality of Alcohol and Drug Abuse Patient Records regulations: The Federal rules restrict any use of the information to criminally investigate or prosecute any alcohol or drug abuse patient.[facility] HospitalIn the event this information is protected by the Federal Confidentiality of Alcohol and Drug Abuse Patient Records regulations: The Federal rules restrict any use of the information to criminally investigate or prosecute any alcohol or drug abuse patient.[facility] HospitalIn the event this information is protected by the Federal Confidentiality of Alcohol and Drug Abuse Patient Records regulations: The Federal rules restrict any use of the information to criminally investigate or prosecute any alcohol or drug abuse patient.[facility] HospitalIn the event this information is protected by the Federal Confidentiality of Alcohol and Drug Abuse Patient Records regulations: The Federal rules restrict any use of the information to criminally investigate or prosecute any alcohol or drug abuse patient.[facility] HospitalIn the event this information is protected by the Federal Confidentiality of Alcohol and Drug Abuse Patient Records regulations: The Federal rules restrict any use of the information to criminally investigate or prosecute any alcohol or drug abuse patient.[facility] HospitalIn the event this information is protected by the Federal Confidentiality of Alcohol and Drug Abuse Patient Records regulations: The Federal rules restrict any use of the information to criminally investigate or prosecute any alcohol or drug abuse patient.[facility] HospitalIn the event this information is protected by the Federal Confidentiality of Alcohol and Drug Abuse Patient Records regulations: The Federal rules restrict any use of the information to criminally investigate or prosecute any alcohol or drug abuse patient.[facility] HospitalIn the event this information is protected by the Federal Confidentiality of Alcohol and Drug Abuse Patient Records regulations: The Federal rules restrict any use of the information to criminally investigate or prosecute any alcohol or drug abuse patient.[facility] HospitalIn the event this information is protected by the Federal Confidentiality of Alcohol and Drug Abuse Patient Records regulations: The Federal rules restrict any use of the information to criminally investigate or prosecute any alcohol or drug abuse patient.F[facility] HospitalIn the event this information is protected by the Federal Confidentiality of Alcohol and Drug Abuse Patient Records regulations: The Federal rules restrict any use of the information to criminally investigate or prosecute any alcohol or drug abuse patient.[facility] HospitalIn the event this information is protected by the Federal Confidentiality of Alcohol and Drug Abuse Patient Records regulations: The Federal rules restrict any use of the information to criminally investigate or prosecute any alcohol or drug abuse patient.[facility] HospitalIn the event this information is protected by the Federal Confidentiality of Alcohol and Drug Abuse Patient Records regulations: The Federal rules restrict any use of the information to criminally investigate or prosecute any alcohol or drug abuse patient.F[facility] HospitalIn the event this information is protected by the Federal Confidentiality of Alcohol and Drug Abuse Patient Records regulations: The Federal rules restrict any use of the information to criminally investigate or prosecute any alcohol or drug abuse patient.[facility] HospitalIn the event this information is protected by the Federal Confidentiality of Alcohol and Drug Abuse Patient Records regulations: The Federal rules restrict any use of the information to criminally investigate or prosecute any alcohol or drug abuse patient.F[facility] HospitalIn the event this information is protected by the Federal Confidentiality of Alcohol and Drug Abuse Patient Records regulations: The Federal rules restrict any use of the information to criminally investigate or prosecute any alcohol or drug abuse patient.Flower HospitalIn the event this information is protected by the Federal Confidentiality of Alcohol and Drug Abuse Patient Records regulations: The Federal rules restrict any use of the information to criminally investigate or prosecute any alcohol or drug abuse patient.[facility] Reason for Visit (unrecogniz ed section and content) Reason Comments upcoming appointment pre-rooming phone c all Reason Comments Opened In Error Reason Comments Opened In Error Reason Comments Telemedicine Specialty Diagnoses / Procedures Referred By Contac t Referred To Contact Diagnoses Parkinson disease (HCC) Gait instability Procedures PROVIDER ORDERED FOLLOW UP OFFICE/OUTPATIENT NEW HIGH MDM 60-74 MINUTES Elana Castañeda MD [address] [place] [id number] Referral ID Status Reason Start Date Expiration Date V isits Requested Visits Authorized [id number] Closed PCP Requested Referral 06/29/2022 09/27/2022 1 1 Reason Comments Orders Mailed orders Reason Comments Telemedicine Follow Up Specialty Diagnoses / Procedures Referred By Contac t Referred To Contact Diagnoses Parkinson disease (HCC) Essential tremor Procedures PROVIDER ORDERED FOLLOW UP OFFICE/OUTPATIENT NEW HIGH MDM 60-74 MINUTES Elana Castañeda MD [facility] [address] [address] Referral ID Status Reason Start Date Expiration Date Visits Requested Visits Authorized [id number] Pending Review PCP Requested Referral 02/15/2023 12/18/2023 [...] week follow up, c/ o chest pain Reason Comments Parkinson's Disease Reason Comments Request Rx's fax to Nursing Facility Reason Comments Orders Care Teams (unrecognized sec tion and content) Team Status: Active Member Role Status Dates Dr. Felix Montelongo MD Primary Care Provider Active Team Status: Inactive Member Role Status Dates Dr. Felix Montelongo MD Primary Care Provider Active Start: January 31, 2025 End: January 31, 2025 Buzz ZHANG MD Attending Provider Active Start: January 31, 2025 End: January 31, 2025 Team Status: Inactive Member Role Status Dates Dr. Felix Montelongo MD Primary Care Provider Active Start: February 26, 2025 End: February 26, 2025 Abeba Peacock VETERINARY EPIDEMIOLOGIST, VETERINARY EPIDEMIOLOGIST-C Attending Provider Active Start: February 26, 2025 End: February 26, 2025 Team Status: Inactive Member Role Status [...] Attending Provider Active Start: March 29, 2025 Buzz ZHANG MD Referring Provider Active Start: March 29, 2025 Team Status: Inactive Member Role Status Dates Dr. Felix Montelongo MD Primary Care Provider Active Start: April 13, 2025 End: April 13, 2025 Abeba Peacock VETERINARY EPIDEMIOLOGIST, VETERINARY EPIDEMIOLOGIST-C Attending Provider Active Start: April 13, 2025 End: April 13, 2025 Team Status: Active Member Role Status Dates Dr. Felix Montelongo MD Primary Care Provider Active Start: April 26, 2025 Buzz ZHANG MD Attending Provider Active Start: April 26, 2025 Team Status: Active Member Role Status Dates Dr. Felix Montelongo MD Primary Care Provider Active Start: May 02, 2025 Buzz ZHANG MD Attending Provider Active Start: May 02, 2025 Team Status: Active Member Role Status Dates Dr. Felix Montelongo MD Primary Care Provider Active Start: May 03, 2025 Buzz ZHANG MD Attending Provider Active Start: May 03, 2025 Team Status: Active Member Role Status Dates Dr. Felix Montelongo MD Primary Care Provider Active Start: May 10, 2025 Dr. Dirk Camacho MD Attending Provider Active Start: May 10, 2025 Dr. Dirk Camacho MD Referring Provider Active Start: May 10, 2025 Sharepoint Application Developer Relationship Specialty Start Date End Date Felix Montelongo [address] [place] [address] PCP - General Unspecified 02/04/16 Anupama Feng DO Internal Medicine 12/29/12 Cali Still MD Primary Staff Physician Cardiology 02/07/19 Sharepoint Application Developer Relationship Specialty Start Date End Date Felix Montelongo MD [address] [place] [address] PCP - General Unspecified 02/04/16 Anupama Feng DO Internal Medicine 12/29/12 Cali Still MD Primary Staff Physician Cardiology 02/07/19 Sharepoint Application Developer Relationship Specialty Start Date End Date Felix Montelongo MD [address] [place] [address] [id number] PCP - General Unspecified 02/04/16 Anupama Fegn, Internal Medicine 12/29/12 Cali Still MD Primary Staff Physician Cardiology 02/07/19 Sharepoint Application Developer Relationship Specialty Start Date End Date Felix Montelongo MD [address] [place] [id number] PCP - General Unspecified 02/04/16 Anupama Feng DO Internal Medicine 12/29/12 Cali Still MD [address] [place] [address] [phone] Primary Staff Physician Cardiology 02/07/19 Sharepoint Application Developer Relationship Specialty Start Date End Date Felix Montelongo MD [address] [place] [address] [id number] PCP - General Unspecified 02/04/16 Anupama Feng DO Internal Medicine 12/29/12 Cali Still MD [address] [place] [address] Primary Staff Physician Cardiology 02/07/19 Sharepoint Application Developer Relationship Specialty Start Date End Date Felix Montelongo MD [address] [place] [address] PCP - General Unspecified 02/04/16 Anupama Feng DO Internal Medicine 12/29/12 Cali Still MD [address] [place] [address] Primary Staff Physician Cardiology 02/07/19 Sharepoint Application Developer Relationship Specialty Start Date End Date Felix Montelongo MD [address] [place] [address] [phone] PCP - General Unspecified 02/04/16 Anupama Feng DO Internal Medicine 12/29/12 Cali Still MD [address] [place] [address] [phone] Primary Staff Physician Cardiology 02/07/19 Sharepoint Application Developer Relationship Specialty Start Date End Date Felix Montelongo MD [address] [place] [address] [phone] PCP - General Unspecified 02/04/16 Anupama Feng DO Internal Medicine 12/29/12 Cali Still MD [address] [place] [address] Primary Staff Physician Cardiology 02/07/19 Team Status: Active Member Role Status Dates Dr. Barrett Avalos MD Family Provider Active Dr. Felix Montelongo MD Primary Care Provider Active Team Status: Inactive Member Role Status Dates Dr. Felix Montelongo MD Primary Care Provider Active RUDDY ANGLIN Attending Provider, Referring Provid er Active Sharepoint Application Developer Relationship Specialty Start Date End Date Felix Montelongo MD [address] [place] [id number] PCP - General Unspecified 02/04/16 Anupama Feng DO Internal Medicine 12/29/12 Cali Still MD [address] [place] [address] Primary Staff Physician Cardiology 02/07/19 Elana Castañeda MD [address] [address] Specialty Mold Sheet Cleaner Neurology 11/10/23 Sharepoint Application Developer Relationship Specialty Start Date End Date Felix Montelongo MD [address] [place] [address] PCP - General Unspecified 02/04/16 Anupama Feng DO Internal Medicine 12/29/12 Cali Still MD [address] [place] [address] Primary Staff Physician Cardiology 02/07/19 Elana Castañeda MD [address] [address] Specialty Mold Sheet Cleaner Neurology 11/10/23 Sharepoint Application Developer Relationship Specialty Start Date End Date Felix Montelongo MD [address] [place] [address] PCP - General Unspecified 02/04/16 Anupama Feng DO Internal Medicine 12/29/12 Cali Still MD [address] [place] [address] Primary Staff Physician Cardiology 02/07/19 Elana Castañeda MD [address] [address] Specialty Mold Sheet Cleaner Neurology 11/10/23 Sharepoint Application Developer Relationship Specialty Start Date End Date Rocío Wagner PA-C [address] [place] [address] PCP - General Family Medicine 02/01/24 Anupama Feng DO Internal Medicine 12/29/12 Cali Still MD Primary Staff Physician Cardiology 02/07/19 Elana Castañeda MD [address] [address] Specialty Mold Sheet Cleaner Neurology 11/10/23 Sharepoint Application Developer Relationship Specialty Start Date End Date Vincent Tello MD [address] [place] [address] PCP - General Internal Medicine 02/29/24 Anupama Feng DO Internal Medicine 12/29/12 Cali Still MD Primary Staff Physician Cardiology 02/07/19 Elana Castañeda MD [address] [address] Specialty Mold Sheet Cleaner Neurology 11/10/23 Sharepoint Application Developer Relationship Specialty Start Date End Date Vincent Tello MD [address] [place] [address] PCP - General Internal Medicine 02/29/24 Anupama Feng DO Internal Medicine 12/29/12 Cali Still MD Primary Staff Physician Cardiology 02/07/19 Elana Castañeda MD [address] [address] Specialty Mold Sheet Cleaner Neurology 11/10/23 Rocío Wagner PA-C [address] [place] [address] [facility] Family [facility] 10/29/24 Sheela Cochran APRN.PREPARATION DEPARTMENT SUPERVISOR [address] [place], [place] [address] [facility] Internal Medicine 10/29/24 Janine Daugherty PA-C [address] [place], [place] [phone] [facility] 10/29/24 Sharepoint Application Developer Relationship Specialty Start Date End Date Vincent Tello MD [address] [place], [place] [id number] PCP - General Internal Medicine 02/29/24 Anupama Feng DO Internal Medicine 12/29/12 Cali Still MD Primary Staff Physician Cardiology 02/07/19 Elana Castañeda MD [address] [address] Specialty Mold Sheet Cleaner Neurology 11/10/23 Rocío Wagner PA-C [address] [place] [address] [facility] 10/29/24 Sheela Cochran APRN.PREPARATION DEPARTMENT SUPERVISOR [address] [place] [address] [facility] Internal Medicine 10/29/24 Janine Daugherty PA-C [address] [place], [place] [id number] [facility] Family Medicine 10/29/24 Team Status: Inactive Member Role Status Dates Dr. Felix Montelongo MD Primary Care Provider Active Start: October 27, 2024 End: November 01, 2024 Dr. Velasquez Moarles DO Emergency Provider Activ e Start: October 27, 2024 End: November 01, 2024 Dr. Sulma Romero MD Admit Provider Active Star t: October 27, 2024 End: November 01, 2024 Dr. Sulma Romero MD Other Provider Active Star t: October 27, 2024 End: November 01, 2024 Dr. Sung Rhodes , DO Attending Provider Active Start: October 27, 2024 [...] Start: October 29, 2024 Dr. Roderick Laurent DO Other Provider [...] End: November 02, 2024 Abeba Peacock NP, VETERINARY EPIDEMIOLOGIST-C Attending Provider Active Start: November 02, 2024 [...] End: December 04, 2024 Abeba Peacock NP, VETERINARY EPIDEMIOLOGIST-C Attending Provider Active Start: December 04, 2024 [...] 2024 End: December 21, 2024 Abeba Peacock NP VETERINARY EPIDEMIOLOGIST-C Attending Provider Active Start: December 21, 2024 [...] 2025 End: January 04, 2025 Abeba Peacock NP VETERINARY EPIDEMIOLOGIST-C Attending Provider Active Start: January 04, 2025 End: January 04, 2025 Sharepoint Application Developer Relationship Specialty Start Date End Date Vincent Tello MD [address] [place] [address] PCP - General Internal Medicine 02/29/24 Anupama Feng DO Internal Medicine 12/29/12 Cali Still MD Primary Staff Physician Cardiology 02/07/19 Elana Castañeda MD [address] [address] Specialty Mold Sheet Cleaner Neurology 11/10/23 Sheela Cochran APRN.PREPARATION DEPARTMENT SUPERVISOR [address] [place] [address] Geospatial Technician Internal Medicine 10/29/24 Sharepoint Application Developer Relationship Specialty Start Date End Date Vincent Tello MD [address] [place] [address] PCP - General Internal Medicine 02/29/24 Anupama Feng DO Internal Medicine 12/29/12 Cali Still MD Primary Staff Physician Cardiology 02/07/19 Elana Castañeda MD [address] [address] Specialty Mold Sheet Cleaner Neurology 11/10/23 Sheela Cochran APRN.PREPARATION DEPARTMENT SUPERVISOR [address] [place] [address] Geospatial Technician Internal Medicine 10/29/24 Team Status: Active Member Role Status Dates Dr. Felix Montelongo MD Primary Care Provider Active Start: March 29, 2025 Buzz ZHANG MD Attending Provider Active Start: March 29, 2025 Sharepoint Application Developer Relationship Specialty Start Date End Date Vincent Tello MD [address] [place] [address] PCP - General Internal Medicine 02/29/24 Anupama Feng DO Internal Medicine 12/29/12 Cali Still MD Primary Staff Physician Cardiology 02/07/19 Elana Castañeda MD [address] [address] Specialty Mold Sheet Cleaner Neurology 11/10/23 Sheela Cochran APRN.PREPARATION DEPARTMENT SUPERVISOR [address] [place] [address] Geospatial Technician Internal Medicine 10/29/24 Team Status: Inactive Member Role Status Dates Dr. Felix Montelongo MD Primary Care Provider Active Start: May 10, 2025 End: May 10, 2025 Dr. Dirk Camacho MD Attending Provider Active Start: May 10, 2025 End: May 10, 2025 Dr. Dirk Camacho MD Referring Provider Active Start: May 10, 2025 End: May 10, 2025 Sharepoint Application Developer Relationship Specialty Start Date End Date Vincent Tlelo MD [address] [place] [address] PCP - General Internal Medicine 02/29/24 Anupama Feng DO Internal Medicine 12/29/12 Cali Still MD Primary Staff Physician Cardiology 02/07/19 Elana Castañeda MD [address] [address] Specialty Mold Sheet Cleaner Neurology 11/10/23 Sheela Cochran APRN.PREPARATION DEPARTMENT SUPERVISOR [address] [place] [address] Geospatial Technician Internal Medicine 10/29/24 Sharepoint Application Developer Relationship Specialty Start Date End Date Vincent Tello MD [address] [place] [address] PCP - General Internal Medicine 02/29/24 Anupama Feng DO Internal Medicine 12/29/12 Cali Still MD Primary Staff Physician Cardiology 02/07/19 Elana Castañeda MD [address] [phone] Specialty Mold Sheet Cleaner Neurology 11/10/23 Sheela Cochran APRN.PREPARATION DEPARTMENT SUPERVISOR [address] [place] [address] Geospatial Technician Internal Medicine 10/29/24 Team Status: Active Member Role/Relationship Status Dates Dr. Felix Montelongo MD Primary Care Provider Active Team Status: Active Member Role/Relationship Status Dates Dr. Felix Montelongo MD Primary Care Provider Active Start: March 29, 2025 Buzz ZHANG MD Attending Provider Active Start: March 29, 2025 Buzz ZHANG MD Referring Provider Active Start: March 29, 2025 Team Status: Inactive Member Role/Relationship Status Dates Dr. Felix Montelongo MD Primary Care Provider Active Start: April 13, 2025 End: April 13, 2025 Abeba Peacock VETERINARY EPIDEMIOLOGIST, VETERINARY EPIDEMIOLOGIST-C Attending Provider Active Start: April 13, 2025 End: April 13, 2025 Team Status: Active Member Role/Relationship Status Dates Dr. Felix Montelongo MD Primary Care Provider Active Start: April 26, 2025 Buzz ZHANG MD Attending Provider Active Start: April 26, 2025 Team Status: Active Member Role/Relationship Status Dates Dr. Felix Montelongo MD Primary Care Provider Active Start: May 02, 2025 Buzz ZHANG MD Attending Provider Active Start: May 02, 2025 Team Status: Active Member Role/Relationship Status Dates Dr. Felix Montelongo MD Primary Care Provider Active Start: May 03, 2025 Buzz ZHANG MD Attending Provider Active Start: May 03, 2025 Team Status: Inactive Member Role/Relationship Status Dates Dr. Felix Montelongo MD Primary Care Provider Active Start: May 10, 2025 End: May 10, 2025 Dr. Dirk Camacho MD Attending Provider Active Start: May 10, 2025 End: May 10, 2025 Dr. Dirk Camacho MD Referring Provider Active Start: May 10, 2025 End: May 10, 2025 Team Status: Inactive Member Role/Relationship Status Dates Dr. Felix Montelongo MD Primary Care Provider Active Start: May 30, 2025 End: May 30, 2025 Abeba Peacock NP, VETERINARY EPIDEMIOLOGIST-C Attending Provider Active Start: May 30, 2025 End: May 30, 2025 Team Status: Active Member Role/Relationship Status Dates Dr. Felix Montelongo MD Primary Care Provider Active Start: June 22, 2025 Buzz ZHANG MD Attending Provider Active Start: June 22, 2025 Goals (unrecognized section and content) Goals [...] BE BASED ON THE PRIMARY CLINICAL RECORDS. [facility] provides no warranty or guarantee of the accuracy or completeness of information in this document.
[2025-07-11 07:32] LABS: Color, Urine Yellow (Yellow); Glucose, Dipstick 1000 mg/dl (Normal); Ketone-Dipstick Negative (Negative); Leukocyte Esterase-Dipstick Negative /ul (Negative); Nitrite-Dipstick Negative (Negative); Occult Blood-Urine Negative /ul (Negative); Protein-Dipstick 15 mg/dl (Negative); Specific Gravity, Urine 1.010 (1.002-1.030); Urine Bilirubin Dipstick Negative (Negative)
== END ==
LOC: OLS.WHLTSB 10:00
PROVIDERS: PCP Family Medicine Geriatric Medicine; Visit Provider Internal Medicine
DX: N39.0 Urinary tract infection, site not specified (principal)
CPT/HCPCS: 81002; 87077; 87086; 87088; 87186

== ENCOUNTER → 2025-07-19 05:00 | Outpatient (REF) | payer MEDICARE, SELFPAY ==
[2020-03-14 14:48] VITALS: BMI 28.1
[2025-07-19 09:15] LABS: Hematocrit 39.7 % (40-54); Hemoglobin 13.3 g/dL (13.0-16.5); Immature Granulocytes Count 0.010 X10^3/uL (0.0-0.0); Mean Corp Hgb Conc 33.5 g/dL (32-36); Mean Corpuscular Volume 102.6 fL (80-94); Mean Platelet Vol. 10.5 fl (6.2-12.0); NRBC Flagged by Analyzer 0 % (0-5); Platelet Count 210 K/mm3 (150-450); RBC Distribution Width CV 12.8 % (11.6-14.6); RBC Distribution Width SD 47.8 fl (35.1-43.9); Red Blood Count 3.87 M/mm3 (4.6-6.2); White Blood Count 5.2 K/mm3 (4.4-11.0)
[2025-07-19 09:32] LABS: Anion Gap 10 (5-15); BUN 35 mg/dL (4-19); BUN/Creat Ratio 30.0 RATIO (10-20); Calcium,Total 9.2 mg/dL (7.6-11.0); Carbon Dioxide 24.8 mmol/L (21.0-32.0); Chloride 104 mmol/L (98-108); Glucose 152 mg/dL (70-99); Potassium 5.1 mmol/L (3.3-5.1)
== END ==
LOC: OLS.WHLTSB 05:00
PROVIDERS: PCP Family Medicine Geriatric Medicine; Visit Provider Internal Medicine
DX: G20.A1 Parkinson's disease without dyskinesia, without mention of fluctuations (principal)
CPT/HCPCS: 36415; 80048; 85025

== ENCOUNTER → 2025-08-01 05:00 | Outpatient (REF) | payer MEDICARE, SELFPAY ==
[2020-03-14 14:48] VITALS: BMI 28.1
[2025-08-01 09:21] LABS: AST(SGOT) 25 U/L (<=37); Alanine Aminotransfer ALT/SGPT 21 U/L (<=46); Albumin, Serum 3.8 g/dL (3.4-4.8); Alkaline Phosphatase 63 U/L (40-129); Bilirubin, Direct 0.18 mg/dL (0.00-0.30); Globulin 2.2 g/dL (2.2-4.2); Magnesium 2.2 mg/dL (1.5-2.2); Vitamin D,25 Hydroxy 33.8 ng/mL (30-100)
== END ==
LOC: OLS.WHLTSB 05:00
PROVIDERS: PCP Family Medicine Geriatric Medicine; Visit Provider Internal Medicine
DX: E78.5 Hyperlipidemia, unspecified (principal)
CPT/HCPCS: 36415; 80076; 82306; 83036; 83735

== ENCOUNTER → 2025-08-16 05:00 | Outpatient (REF) | payer MEDICARE, SELFPAY ==
[2020-03-14 14:48] VITALS: BMI 28.1
[2025-08-16 09:35] LABS: Hematocrit 39.6 % (40-54); Hemoglobin 13.6 g/dL (13.0-16.5); Immature Granulocytes Count 0.020 X10^3/uL (0.0-0.0); Mean Corp Hgb Conc 34.3 g/dL (32-36); Mean Corpuscular Volume 101.8 fL (80-94); Mean Platelet Vol. 10.9 fl (6.2-12.0); NRBC Flagged by Analyzer 0 % (0-5); Platelet Count 223 K/mm3 (150-450); RBC Distribution Width CV 11.9 % (11.6-14.6); RBC Distribution Width SD 44.5 fl (35.1-43.9); Red Blood Count 3.89 M/mm3 (4.6-6.2); White Blood Count 5.9 K/mm3 (4.4-11.0)
[2025-08-16 09:55] LABS: Anion Gap 12 (5-15); BUN 29 mg/dL (4-19); BUN/Creat Ratio 22.9 RATIO (10-20); Calcium,Total 9.0 mg/dL (7.6-11.0); Carbon Dioxide 22.7 mmol/L (21.0-32.0); Chloride 103 mmol/L (98-108); Glucose 202 mg/dL (70-99); Potassium 5.2 mmol/L (3.3-5.1)
== END ==
LOC: OLS.WHLTSB 05:00
PROVIDERS: PCP Family Medicine Geriatric Medicine; Visit Provider Internal Medicine
DX: G20.A1 Parkinson's disease without dyskinesia, without mention of fluctuations (principal)
CPT/HCPCS: 36415; 80048; 85025

== ENCOUNTER → 2025-08-20 05:00 | Outpatient (REF) | payer MEDICARE, SELFPAY ==
[2020-03-14 14:48] VITALS: BMI 28.1
[2025-08-20 07:24] LABS: Potassium 5.1 mmol/L (3.3-5.1)
== END ==
LOC: OLS.WHLTSB 05:00
PROVIDERS: PCP Family Medicine Geriatric Medicine; Visit Provider Internal Medicine
DX: G20.A1 Parkinson's disease without dyskinesia, without mention of fluctuations (principal); M62.561 Muscle wasting and atrophy, not elsewhere classified, right lower leg; M62.562 Muscle wasting and atrophy, not elsewhere classified, left lower leg; I10 Essential (primary) hypertension
CPT/HCPCS: 36415; 84132

== ENCOUNTER → 2025-09-26 05:00 | Outpatient (REF) | payer MEDICARE, SELFPAY ==
[2020-03-14 14:48] VITALS: BMI 28.1
--- OUTSIDE RECORDS SUMMARY | 2025-09-26 04:44 | XMS RPT_ITS | CCD ---
Author Organization [facility] Care Team Providers Care Sports Medicine Specialist Name Role Phone NICOLA PAYNE Unavailable Unavailable IMCA Unavailable Unavailable FELIX MONTELONGO Unavailable Unavailable ALHAJI KARI Unavailable Unavailable MATTHEW MANENETH Unavailable Unavailable JAYDAFELIX Rodriguez Unavailable Unavailable ALHAJI KARI Unavailable Unavailable MATTHEW MANENETH Unavailable Unavailable FELIX MONTELONGO K Unavailable Unavailable Unknown, Referring Provider Unavailable Unav ailable Unavailable Unavailable Anupama Feng DO Unavailable Felix Montelongo Primary Care Provider Cali Still MD Unavailable Felix Montelongo MD Primary Care Provider [phone] Dr. Felix Montelongo Primary Care Provider [phone] Dr. 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 Gerber Attending Provider Dr. Felix Montelongo MD Referring Provider Dr. Margie Gary MD Attending Provider Dr. Felix Montelongo MD Primary Care Provider Buzz Rainey MD Attending Provider Unavailfatuma Peacock STATUS CONTROLLER-CAbeba Attending Provider Dr. Buzz Rainey MD Attending Provider King VALERIA, Dr. Preciado Attending Provider Jayda SHAW, Dr. Washington Primary Care Provider Redd SHAW, Buzz Attending Provider Unavaila ble [place]ickton STATUS CONTROLLER-C, Abeba Attending Provider Jayda SHAW, Dr. Washington Referring Provider [phone] Jayda SHAW, Dr. Washington Primary Care Provider Redd SHAW, Buzz Attending Provider Unavaila ble [place] STATUS CONTROLLER-C, Abeba Attending Provider Redd SHAW, Buzz Referring Provider Unavaila juan carlos Camacho MD, Dr. Caavzos Attending Provider Janice SHAW, Dr. Cavazos Referring [...] SHAW, Buzz Attending Provider Unavaila ble [place] STATUS CONTROLLER-C, Abeba Attending Provider KWAN ESTRELLA Attending Unavailable SLEIK, KHALED MELOUD Referring Unavailable GANTA, VINCENT Primary Care Unavailable Sung Rhodes Attending Unavailable Jayda, Felix Primary Care Unavailable Sulma Romero Consulting Unavailable Sulma Romero Admitting Unavailable Roderick Laurent Consulting Unavailable Cody Conleybe Attending Unavailabl e Jayda, Felix Primary Care Unavailable Rahe Buzz ZHANG Attending Unavailabl e Jayda, Felix Primary Care Unavailable Olemke Buzz ZHANG Attending Unavailabl e Jayda, Felix Primary Care Unavailable Buzz Conley Attending Unavailabl e Jayda, Felix Primary Care Unavailable Dirk Camacho Attending Unavailable Jayda, Tillar Primary Care Unavailable Miedel, Kenne[place] Referring Unavailable Durga STATUS CONTROLLER, Rita E Attending Unavailabl e Jayda, Felix Primary Care Unavailable Jayda, Felix Referring Unavailable Olelavelle LEATHA Efewongbe Referring Unavailabl e Oleghe OLS, Efewongbe Attending Unavailabl e Jayda, Felix Primary Care Unavailable [facility] OLS, Efewongbe Attending Unavailabl e Jayda, Felix Primary Care Unavailable [facility] OLSOtiliaongbe Attending Unavailabl e Jayda, Felix Primary Care Unavailable Jayda, Felix Primary Care Unavailable [facility] OLS, Efewongbe Attending Unavailabl e Jayda, Felix Primary Care Unavailable [facility] OLS, Otiliaongbe Attending Unavailabl e Jayda, Tillar Primary Care Unavailable Olelana Otilia ZHANGongbe Attending Unavailabl e Oleghe OLS, Efewongbe Attending Unavailabl e Jayda, Felix Primary Care Unavailable [facility] OLSOtiliaongbe Attending Unavailabl e Jayda, Felix Primary Care Unavailable [facility] Otilia ZHANGongbe Attending Unavailabl e Jayda, Tillar Primary Care Unavailable Durga STATUS CONTROLLER, Rita Schwartz Attending Unavailabl e Jayda, Felix Primary Care Unavailable Jayda, Felix Referring Unavailable [facility] Cody ZHANGbe Attending Unavailabl e Jayda, Tillar Primary Care Unavailable [facility] Cody ZHANGbe Attending Unavailabl e Jayda, Tillar Primary Care Unavailable [facility] Otilia ZHANGongbe Attending Unavailabl e Jayda, Tillar Primary Care Unavailable [facility] Cody ZHANGbe Attending Unavailabl e Jayda, Tillar Primary Care Unavailable Sung Rhodes Attending Unavailable Jayda, Felix Primary Care Unavailable Sulma Romero Admitting Unavailable Sulma Romero Consulting Unavailable Roderick Laurent Consulting Unavailable Sung Rhodes Consulting Unavailable Durga STATUS CONTROLLER, Rita E Attending Unavailabl e Jayda, Felix Primary Care Unavailable Durga STATUS CONTROLLER, Rita E Consulting Unavailabl e Jayda, Felix Referring Unavailable Jayda, Felix Primary Care Unavailable Abeba Peacock Attending Unavailable Jayda, Felix Primary Care Unavailable Abeba Peacock Attending Unavailable Jayda, Felix Primary Care Unavailable Abeba Peacock Attending Unavailable Cody Raineybe Attending Unavailable Jayda, Felix Primary Care Unavailable Jayda, Felix Primary Care Unavailable Abeba Peacock Attending Unavailable Margie Gary Attending Unavailable Jayda, Felix Referring Unavailable Jayda, Felix Primary Care Unavailable Jayda, Felix Primary Care Unavailable Ozzy Bro Attending Unavailable Jayda, Felix Referring Unavailable Jayda, Felix Primary Care Unavailable Angela Ramirez Attending Unavailable Roderick Laurent Attending Unavailable DieudonneOzzy Attending Unavailable Jayda, Felix Primary Care Unavailable Jayda, Felix Referring Unavailable Oleghe, Efewongbe Attending Unavailable Jayda, Felix Primary Care Unavailable Carrie Peacockara Attending Unavailable Jayda, Felix Primary Care Unavailable Oleghe, Efewongbe Attending Unavailable Jayda, Felix Primary Care Unavailable Jayda, Felix Primary Care Unavailable Abeba Peacock Attending Unavailable Jayda, Felix Primary Care Unavailable Tickton Abeba Attending Unavailable Oleghe OLS, Efewongbe Attending Unavailabl e Jayda, Felix Primary Care Unavailable Sulma Romero Attending Unavailable Oleghe OLS, Efewongbe Attending Unavailabl e Jayda, Felix Primary Care Unavailable Oleghe OLS, Efewongbe Attending Unavailabl e Jayda, Felix Primary Care Unavailable Allergies Allergy Classification Reported Allergen(s) Allergy Type Date of Onset Reaction(s) Facility (20 sources) Adrenergic Beta-Antagonist s; Translations: [BETA-BLOCKERS (BETA-ADRENERGI C BLOCKING AGTS)] Propensity to adverse reactions (disorder) 0 Shortness of Breath [facility] Repository (9 sources) Beta-Blockers (Beta-Adrenergi c Bloc; Translations: [Beta-Blockers (Beta-Adrenergi c Bloc] Allergy to substance 2 ANGIOEDEMA [facility] Medications Current Medications Medication Drug Class(es) [...] mg PO DAILY@0800 July 28, 2018 12:00am [facility] take 1 tablet by bhaskar th once [...] infantis/B ani/B tori/B bifid (PROBIOTIC 4X ORAL) (20 sources) B infantis/B ani /B tori/B bifid (PROBIOTIC 4X ORAL) Take by mouth. Active B infantis/B ani /B tori/B bifid (PROBIOTIC 4X ORAL) Take by mouth. 0 Active Comment on above: Take by mouth. 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 Take at 9a, 1p, 6p 540 tablet 3 05/29/2025 05/29/2026 Active Start: 08-24-2017 End: 04-21-2021 take 1 tablet by mouth three times daily Carbidopa-Levodopa Discontinued 1 TABLET PO THREE TIMES A DAY 270 March 19, 2021 3:28pm April 21, 2021 7:47pm Comment on above: Take 2 tablets by [facility] three times daily. cholecalciferol 0.025 mg oral [...] take 1 tablet by mouth once daily clopidogrel (PLAVIX) 75 mg tablet Take 75 mg by mouth once daily. 07/20/2018 Active Comment on above: Take 1 tablet by [facility] once daily. dapagliflozin 5 mg oral tablet (20 sources) Sodium-Glucose Cotransporter 2 Inhibitor Start: 06-04-20 End: 09-29-20 24 take 1 tablet by mouth once daily FARXIGA 5 mg tablet Take 5 mg by mouth once daily. 06/04/2022 Active Comment on above: Take 5 mg by mouth o nce daily. DULoxetine 20 mg delayed release oral capsule (3 sources) Serotonin and Norepinephrine Reuptake Inhibitor Start: 07-06-20 22 End: 07-06-20 23 take 1 capsule by mouth once daily DULoxetine (CYMBALTA) 20 mg capsule Take 1 capsule by mouth once daily. 30 capsule 11 07/06/2022 12/18/2022 Discontinued Comment on above: Take 1 capsule by mo [facility] once daily. finasteride 5 mg oral [...] times daily. furosemide 20 mg oral tablet (15 sources) Loop Diuretic Start: 01-22-2025 End: 01-22-2025 [...] Start: 05-15-2021 take 2 tablets by mo [facility] twice daily at mealtime Glimepiride 1 MG [...] 1 tablet by mouth every twenty-four hours isosorbide mononitrate ER (IMDUR) 30 mg 24 hr tablet Take 30 mg by mouth once daily. 01/10/2025 Active Start: 05-15-2021 take 1 tablet by [...] Start: 05-15-2021 take 0.5 tablet by m out once daily Lisinopril 10 MG Oral Tablet [...] Take 1 tablet by bhaskar once daily. magnesium oxide 400 mg oral tablet (20 sources) Start: 12-08-2018 take 1 tablet by mouth once daily magnesium oxide (MAG-OX) 400 mg (241.3 mg magnesium) tablet Take 1 tablet by mouth once daily. 12/08/2018 Active Start: 12-08-2018 End: 01-21-2021 take 1 tablet by mouth once daily Magnesium Oxide 400 mg (241.3 mg magnesium) tablet Discontinued 400 mg PO DAILY June 17, 2019 12:00am January 21, 2021 9:12am End: 01-22-2025 Magnesium Oxide 500 mg tab T levi 250 mg by mouth twice daily. 01/22/2025 Discontinued (Course of therapy completed) Comment on above: Take 1 tablet by bhaskar once daily. Take 250 mg by mouth twice daily. metFORMIN hydrochloride 1000 mg oral tablet [...] take 1 capsule by mouth once daily tamsulosin ER (FLOMAX) 0.4 mg cap Take 1 capsule by mouth once daily. 90 capsule 3 03/29/2019 Active Comment on above: Take 1 capsule by mo [facility] once daily. WALKER ROLLATOR SEAT WITH 6" WHEELS - RED (12 sources) Start: 01-05-20 WALKER ROLLATOR SEAT WITH [...] 01, 2024 1:00am November 08, 2024 5:26pm hydroCHLOROthiazide 25 mg oral tablet (20 sources) [...] 1 tablet by bhaskar th once daily levothyroxine (SYNTHROID) 50 mcg tablet Take 50 mcg by mouth once daily. 11/26/2017 Active Start: 11-26-2017 levothyroxine (SYNTHROID) 75 mcg tablet Take 50 mcg by mouth once daily. 0 11/26/2017 Active Comment on above: Take 50 mcg by mouth once daily. Magnesium (4 sources) Start: 05-15-2021 take 1 tablet by mouth once daily Magnesium 400 MG Oral Tablet 1 tablet daily Quantity: 0 Refills: 0 Ordered: 15-May-2021 DO Start : 15-May-2021 Active Multivitamin 1 EACH tablet (6 sources) Start: [...] atrial contraction; Translations: [Atrial premature depolarization] Onset: 03-02-2025 Chronic Cardiac dysrhythmias (1 source) Palpitations; [...] disease (20 sources) Atherosclerotic heart disease of [place] coronary artery without angina pectoris; Translations: [Coronary [...] Translations: [Unspecified essential hypertension] Onset: 5 Chronic Headache; including migraine (2 sources) Posttraumatic headache; Translations: [Post-traumatic headache, unspecified, not intractable] Onset: 5 05-16-2025 Episodic Headache; including migraine (1 source) Headache; including migraine; Translations: [Headache, unspecified] Onset: 5 Hyperplasia of prostate (20 sources) Benign prostatic hyperplasia; Translations: [Benign prostatic hyperplasia without lower urinary tract symptoms] Onset: 3 12-06-2012 Chronic Other and ill-defined heart disease (8 sources) [...] leg] Onset: 5 Episodic Other gastrointestinal disorders (8 sources) Burping; [...] without dyskinesia or fluctuating manifestations (HCC)] Onset: 1 Peripheral and visceral atherosclerosis (12 sources) Atherosclerosis [...] / UNK(Unknown) Onset: 8 Urinary tract infections (9 sources) Acute urinary tract infection; Translations: [Urinary tract infection, site not specified] Onset: 5 11-09-2024 Episodic Viral infection (4 sources) Postherpetic neuralgia; Translations: [Other postherpetic nervous system involvement] Onset: 5 01-04-2024 Episodic Past or Other Problems Problem [...] X 8 Promus Synergy per [facility]N @ [facility]07/20/2018:JACQUELINE of mid [place] RPL branch, 3.0 X 16 Promus Synergy ; JACQUELINE of distal SVG to RCA, 2.5 X 20 Promus Synergy per [facility] @ [facility] Genitourinary symptoms and ill-defined conditions (20 sources) Increased frequency of urination; Translations: [Frequency of micturition] Onset: 12-06-2012 12-06-2012 Episodic Malaise and fatigue (20 sources) Malaise and fatigue; Translations: [Other malaise] Onset: 06-27-2008 10-10-2015 Episodic Nonspecific chest pain (18 sources) Chest pain; Translations: [Chest pain, unspecified] Onset: 11-30-2024 04-21-2021 Episodic Other nervous system disorders (20 sources) Abnormal gait; Translations: [Unsteadiness on feet] Onset: 10-24-2021 10-24-2021 Episodic Residual codes; unclassified (2 sources) Edema, unspecified; Translations: [Edema] Onset: 12-30-2024 Episodic Residual codes; unclassified (1 source) Personal history of other specified conditions; Translations: [Personal history of other specified conditions] Onset: 11-30-2024 Episodic Results Test Name Value Interpretation Reference Range Facility [facility] 08-01-2025 CNPN Telephone (MorphyARDPOB ) FLEX KLINE ([id number]) 1940 M Date Time Provider Department 08/01/25 AG CARD [place] During your visit today, we recorded the following information about you: Cecy Bazan 08/01/2025 8:20 AM Signed Received RX request from [facility] for the patient for Dr. Jones Scanned to the chart Mailed back in return envelope. 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 Problem List As Of Date 08/01/2025 Noted Resolved MALAISE AND FATIGUE NEC [R53.81, [...] Gait instability [R26.81] 10/24/2021 Encounter Status:Closed by CECY BAZAN on 08/01/25 [facility] Absolute lymphocyte countOrd ered By: Buzz Rainey on 06-22-2025 Lymphocytes Auto (Unsp spec) [#/Vol] 1.07 10*3/uL 0.83-4.51 [facility] Absolute neutrophil countOrd ered By: Eftamanna Rainey on 06-22-2025 Neutrophils (Bld) [#/Vol] 3.6 10*3/uL 2.0-7.7 [facility] Anion gap in Serum or Plasma Ordered By: Buzz Rainey on 06-22-2025 Anion gap [Moles/Vol] 11 mmol/L 5-15 [facility] Automated lymphocyte count a s percentage of total leukocytesOrdered By: Buzz Rainey on 06-22-2025 Lymphocytes/100 WBC Auto (Unsp spec) 19.5 % 19-41 [facility] BUN/creatinine ratioOrdered By: Buzz Rainey on 06-22-2025 Urea nitrogen/Creatinine [Mass ratio] 30.5 mg/mg High 10-20 [facility] Basophil percentageOrdered B y: Buzz Rainey on 06-22-2025 Basophils/100 WBC (Bld) 0.5 % 0-1 [facility] Carbon dioxide, total [Moles /volume] in Central venous bloodOrdered By: Buzz Rainey on 06-22-2025 CO2 [Moles/Vol] 25.0 mmol/L 21.0-32.0 [facility] Chloride assayOrdered By: Alexandra Rainey on 06-22-2025 Chloride [Moles/Vol] 100 mmol/L 98-108 [facility] Eosinophil percentageOrdered By: Efyumikoongbe Rahe on 06-22-2025 Eosinophils/100 WBC (Bld) 3.5 % 0-5 [facility] Erythrocyte distribution wid th ratioOrdered By: Buzz Rainey on 06-22-2025 Erythrocyte distribution width (RBC) [Ratio] 13.2 % 11.6-14.6 [facility] Erythrocyte distribution wid th standard deviationOrdered By: Buzz Rainey on 06-22-2025 Erythrocyte distribution width (RBC) [Ratio] 49.6 fl High 35.1-43.9 [facility] Glomerular filtration rate ( GFR) estimation/1.73 sq m using serum, plasma, or whole bOrdered By: yumikofarmingtonestrella Rainey on 06-22-2025 GFR/1.73 sq M.predicted among non-blacks MDRD (S/P/Bld) [Vol rate/Area] 70 mL/min/{1.73_m2} >60 [facility] Comment on above: mL/min/1.73m2 CKD-EP I Creatinine Equation (2020) Hematocrit Auto (Bld) [Volum e fraction]Ordered By: Buzz Rainey on 06-22-2025 Hematocrit (Bld) [Volume fraction] 40.0 % 40-54 [facility] Hemoglobin measurementOrdere d By: Buzz Rainey on 06-22-2025 Hemoglobin (Bld) [Mass/Vol] 13.3 g/dL 13.0-16.5 [facility] Immature granulocytes/100 WB C Auto (Bld)Ordered By: Buzz Rainey 06-22-2025 Immature granulocytes/100 WBC (Bld) 0.200 % 0.0-0.9 [facility] Comment on above: IG% - Immature Granu locytes (promyelocytes, myelocytes and metamyelocytes) > 1% indicates that a LEFT SHIFT is Present. MCV (mean corpuscular volume ) determinationOrdered By: Buzz Rainey on 06-22-2025 MCV (RBC) [Entitic vol] 101.3 fL High 80-94 [facility] Mean corpuscular hemoglobin (MCH) determinationOrdered By: Bzuz Rainey 06-22-2025 MCH (RBC) [Entitic mass] 33.7 pg High 27.0-32.0 [facility] Mean corpuscular hemoglobin concentration (MCHC) determinationOrdered By: Buzz Rainey on 06-22-2025 MCHC (RBC) [Mass/Vol] 33.3 g/dL 32-36 [facility] Mean platelet volume determi nationOrdered By: Buzz Rainey on 06-22-2025 Platelet mean volume (Bld) [Entitic vol] 10.5 fL 6.2-12.0 [facility] Monocyte percentageOrdered B y: Buzz Rainey on 06-22-2025 Monocytes/100 WBC (Bld) 11.3 % High 0-10 [facility] Neutrophil percentageOrdered By: Buzz Rainey on 06-22-2025 Neutrophils/100 WBC (Bld) 65.0 % 47-70 [facility] Nucleated red blood cell per centageOrdered By: Buzz Rainey on 06-22-2025 Nucleated RBC/100 WBC (Bld) [Ratio] 0 % 0-5 [facility] Platelet countOrdered By: Alexandra yumikoarthur Rainey on 06-22-2025 Platelets (Bld) [#/Vol] 206 10*3/uL 150-450 [facility] Potassium measurement (mass/ volume)Ordered By: Buzz Rainey on 06-22-2025 Potassium (Unsp spec) [Mass/Vol] 4.8 mmol/L 3.3-5.1 [facility] RBC Auto (Bld) [#/Vol]Ordere d By: Buzz Rainey on 06-22-2025 RBC (Bld) [#/Vol] 3.95 10*6/uL Low 4.6-6.2 [facility] Serum creatinine measurement (mass/volume)Ordered By: Buzz Rainey on 06-22-2025 Creatinine [Mass/Vol] 1.06 mg/dL 0.70-1.20 [facility] Serum glucose measurement (m ass/volume)Ordered By: Buzz Rainey on 06-22-2025 Glucose [Mass/Vol] 180 mg/dL High 70-99 [facility] Serum or plasma calcium jesenia urement (mass/volume)Ordered By: Buzz Brainmklana on 06-22-2025 Calcium [Mass/Vol] 9.4 mg/dL 7.6-11.0 [facility] Serum or plasma urea nitroge n measurement (mass/volume)Ordered By: Buzz Rainey on 06-22-2025 Urea nitrogen [Mass/Vol] 32 mg/dL High 4-19 [facility] Sodium levelOrdered By: Otilia Rainey on 06-22-2025 Sodium [Moles/Vol] 136 mmol/L 133-145 [facility] White blood cell (WBC) count Ordered By: yumikofarmingtonestrella Rainey on 06-22-2025 WBC (Bld) [#/Vol] 5.5 10*3/uL 4.4-11.0 [facility] CNPNon 06-21-2025 CNPN Telephone (NRMDN) FLEX KLINE ([id number]) 1940 M Date Time Provider Department 06/21/25 ELANA CASTAÑEDA During your visit today, we recorded the following information about you: Caitlin Tenorio MA 06/21/2025 11:35 AM Signed Received and order for increased carbidopa/levodopa from [facility]. Placed on Dr. Castañeda desk for signature. [...] Encounter Status:Closed by CAITLIN TENORIO on 06/22/25 [facility] 05-29-2025 CNPN Telephone (NREUS2) FLEX KLINE ([id number]) 1940 M Date Time Provider Department 05/29/25 ELANA CASTAÑEDA NRDEEPTHIS2 During your visit today, we recorded the following information about you: [facility] 05/29/2025 9:47 AM Signed Yocasta (pt's daughter) called to request prescriptions for Carbidopa Levodopa 25/100 mg and Gabapentin 400 mg be faxed to [phone]/[facility]. If needed Yocasta may be reached at [phone]. 05/16/25 SHEREEN w/Caitlin Mays MA 05/29/2025 10:35 AM Signed Orders pended for printing if agreeable. MIKE 05/16/25 NOV 09/19/25 Elana Castañeda MD 05/29/2025 12:21 PM Signed Done and in outbox. Caitlin Tenorio MA 05/29/2025 2:03 PM Signed Orders faxed to [facility] and confirmation received Jazzy Rodriguez 06/01/2025 11:01 AM Signed Pt phoned - the orders received at [facility] state to take his Gabapentin at 9am and 6pm. He cannot function with these times and need to state - 6am and 9pm. New orders need faxed to [phone]/[facility], [place]. Marguerite Easley RN 06/01/2025 11:55 AM Signed Last OV gabapentin was increased to three times daily. Call to [facility] for clarification. Spoke with nurse Gunjan. She [...] pm, and 9 pm faxed to facility. [phone] Elana Castañeda MD 06/22/2025 1:30 PM Signed [...] angina (HCC) (more content not included)... Normal [facility] CNOVon 05-16-2025 CNOV Office Visit (NRMDN) FLEX KLINE ([id number]) 1940 M Date Time Provider Department 05/16/25 11:30 AM ELANA CASTAÑEDA During your visit today, we recorded the following information about you: Pulse Blood pressure 78/minute 136/75 Elana Castañeda MD 05/16/2025 12:54 PM Signed [facility] - FOLLOW UP EVALUATION Recording using ambient [email or web address] software for draft documentation of the visit was discussed with the patient/authorized access services representative; all questions welcomed and answered. Patient/authorized access services representative agreed to proceed Vincent Espinosa MD [id number] [facility] [id number] Dear Vincent Espinosa MD: I had the pleasure of seeing [...] usually representi (more content not included)... Normal [facility] Brain/Head without Contrasto n 05-10-2025 Brain/Head without Contrast [facility] Imaging Services [address] [place] [address] [id number] Brain/Head without Contrast MR#: [id number] Acct: [id number] Name: FLEX KLINE Rep #: [id number] : 1940 M 85 From: Fadumo rodriguez MD PCP: Dr. Felix Montelongo MD Status: REG CLI Study: Brain/Head without Contrast Date of Exam: 04/22 08/16 Exam# [id number] Ordering Dr: Dirk Camacho MD PROCEDURE: BRAIN/HEAD [...] age matches brain involutional changes Reading Location: [place] [address] CC: Dr. Dirk Camacho MD; Dr. Felix Montelongo MD Torch Straightener: Signed Normal [facility] Calculated very low density lipoprotein (VLDL) cholesterol measurementOrdered By: Buzz Rainey on 05-03-2025 Calculated very low density lipoprotein (VLDL) cholesterol measurement 15 mg/dL 5-40 [facility] LDL calc ser/plasOrdered By: Buzz Rainey on 05-03-2025 Cholesterol in LDL [Mass/Vol] 56 mg/dL [facility] Comment on above: Plmpgyrcbs=996-955 m g/dL & Higher Bdxn=991 mg/dL or greater Screening total cholesterol/ high density lipoprotein (HDL) cholesterol ratioOrdered By: Buzz Rainey on 05-03-2025 Cholesterol.total/Elly sterol in HDL [Mass ratio] 2.70 {ratio} [facility] Serum or plasma cholesterol in HDL measurement (mass/volume)Ordered By: Buzz Rainey on 05-03-2025 Cholesterol in HDL [Mass/Vol] 42 mg/dL >40 [facility] Comment on above: National Cholesterol Education Program (NCEP) guidelines:<40 mg/dL: Low HDL-cholesterol (major risk factor for CHD)>= 60 mg/dL: High HDL-cholesterol (negative risk factor for CHD)HDL-cholesterol is affected by a number of factors, e.g. smoking, exercise, hormones, sex and age. Serum or plasma cholesterol measurement (mass/volume)Ordered By: Buzz Rainey on 05-03-2025 Cholesterol [Mass/Vol] 113 mg/dL <201 [facility] Comment on above: Cholesterol level, D esirable <200 mg/dLBorderline high cholesterol 200-239 mg/dLHigh cholesterol >=240 mg/dLRecommendations of the NCEP Adult Treatment Panel for the following risk-cutoff thresholds for the [place] population. Triglycerides measurementOrd ered By: Buzz Rainey on 05-03-2025 Triglyceride [Mass/Vol] 74 mg/dL <199 [facility] Comment on above: The drugs N-Acetylcy steine and Metamizole may falsely depress this assay. Normal range: <150 mg/dLBorderline High: 150-199 mg/dLHigh: 200-499 mg/dLVery High: >500 mg/dL Absolute lymphocyte countOrd ered By: Buzz Rainey on 04-26-2025 Lymphocytes Auto (Unsp spec) [#/Vol] 0.88 10*3/uL 0.83-4.51 [facility] Absolute neutrophil countOrd ered By: Buzz Rainey on 04-26-2025 Neutrophils (Bld) [#/Vol] 3.0 10*3/uL 2.0-7.7 [facility] Anion gap in Serum or Plasma Ordered By: Buzz Rainey on 04-26-2025 Anion gap [Moles/Vol] 10 mmol/L 5-15 [facility] Automated lymphocyte count a s percentage of total leukocytesOrdered By: Buzz Rainey on 04-26-2025 Lymphocytes/100 WBC Auto (Unsp spec) 18.9 % Low 19-41 [facility] BUN/creatinine ratioOrdered By: Buzz Rainey on 04-26-2025 Urea nitrogen/Creatinine [Mass ratio] 27.3 mg/mg High 10-20 [facility] Basophil percentageOrdered B y: Buzz Rainey on 04-26-2025 Basophils/100 WBC (Bld) 0.4 % 0-1 [facility] Bilirubin directOrdered By: Buzz Rainey on 04-26-2025 Bilirubin.direct [Mass/Vol] 0.30 mg/dL 0.00-0.30 [facility] Bilirubin, totalOrdered By: Buzz Rainey on 04-26-2025 Bilirubin [Mass/Vol] 0.57 mg/dL 0.00-1.30 [facility] Carbon dioxide, total [Moles /volume] in Central venous bloodOrdered By: Buzz Rainey on 04-26-2025 CO2 [Moles/Vol] 24.6 mmol/L 21.0-32.0 [facility] Chloride assayOrdered By: Alexandra Rainey on 04-26-2025 Chloride [Moles/Vol] 104 mmol/L 98-108 [facility] Eosinophil percentageOrdered By: Buzz Rainey on 04-26-2025 Eosinophils/100 WBC (Bld) 3.4 % 0-5 [facility] Erythrocyte distribution wid th ratioOrdered By: Buzz Rainey on 04-26-2025 Erythrocyte distribution width (RBC) [Ratio] 12.6 % 11.6-14.6 [facility] Erythrocyte distribution wid th standard deviationOrdered By: Buzz Rainey on 04-26-2025 Erythrocyte distribution width (RBC) [Ratio] 45.2 fl High 35.1-43.9 [facility] Glomerular filtration rate ( GFR) estimation/1.73 sq m using serum, plasma, or whole bOrdered By: Buzz Rainey on 04-26-2025 GFR/1.73 sq M.predicted among non-blacks MDRD (S/P/Bld) [Vol rate/Area] 53 mL/min/{1.73_m2} Low >60 [facility] Comment on above: mL/min/1.73m2 CKD-EP I Creatinine Equation (2020) Hematocrit Auto (Bld) [Volum e fraction]Ordered By: Buzz Rainey on 04-26-2025 Hematocrit (Bld) [Volume fraction] 36.5 % Low 40-54 [facility] Hemoglobin A1c percentageOrd ered By: Buzz Rainey on 04-26-2025 HbA1c (Bld) [Mass fraction] 8.3 % High <5.7 [facility] Comment on above: Normal < 5.7 % Predi abetic 5.7 - 6.4 % Diabetic >or= 6.5 % Please note range changes. Hemoglobin measurementOrdere d By: Buzz Rainey on 04-26-2025 Hemoglobin (Bld) [Mass/Vol] 12.3 g/dL Low 13.0-16.5 [facility] Immature granulocytes/100 WB C Auto (Bld)Ordered By: Buzz Rainey on 04-26-2025 Immature granulocytes/100 WBC (Bld) 0.200 % 0.0-0.9 [facility] Comment on above: IG% - Immature Granu locytes (promyelocytes, myelocytes and metamyelocytes) > 1% indicates that a LEFT SHIFT is Present. Laboratory - Chemistry and C hemistry - challengeOrdered By: Buzz Rainey on 04-26-2025 AST [Catalytic activity/Vol] 30 U/L <38 [facility] MCV (mean corpuscular volume ) determinationOrdered By: Buzz Rainey on 04-26-2025 MCV (RBC) [Entitic vol] 98.4 fL High 80-94 [facility] Magnesium measurement (mass/ volume)Ordered By: Buzz Rainey 04-26-2025 Magnesium (Unsp spec) [Mass/Vol] 2.0 mg/dL 1.5-2.2 [facility] Mean corpuscular hemoglobin (MCH) determinationOrdered By: Buzz Rainey on 04-26-2025 MCH (RBC) [Entitic mass] 33.2 pg High 27.0-32.0 [facility] Mean corpuscular hemoglobin concentration (MCHC) determinationOrdered By: Buzz Rainey on 04-26-2025 MCHC (RBC) [Mass/Vol] 33.7 g/dL 32-36 [facility] Mean platelet volume determi nationOrdered By: Buzz Rainey on 04-26-2025 Platelet mean volume (Bld) [Entitic vol] 10.5 fL 6.2-12.0 [facility] Monocyte percentageOrdered B y: Buzz Rainey on 04-26-2025 Monocytes/100 WBC (Bld) 12.9 % High 0-10 [facility] Neutrophil percentageOrdered By: Buzz Rainey on 04-26-2025 Neutrophils/100 WBC (Bld) 64.2 % 47-70 [facility] Nucleated red blood cell per centageOrdered By: Buzz Rainey on 04-26-2025 Nucleated RBC/100 WBC (Bld) [Ratio] 0 % 0-5 [facility] Platelet countOrdered By: Alexandra Rainey on 04-26-2025 Platelets (Bld) [#/Vol] 163 10*3/uL 150-450 [facility] Potassium measurement (mass/ volume)Ordered By: Buzz Rainey on 04-26-2025 Potassium (Unsp spec) [Mass/Vol] 4.7 mmol/L 3.3-5.1 [facility] RBC Auto (Bld) [#/Vol]Ordere d By: Buzz Rainey on 04-26-2025 RBC (Bld) [#/Vol] 3.71 10*6/uL Low 4.6-6.2 [facility] Serum creatinine measurement (mass/volume)Ordered By: Buzz Rainey on 04-26-2025 Creatinine [Mass/Vol] 1.34 mg/dL High 0.70-1.20 [facility] Serum globulin measurementOr dered By: Buzz Rainey on 04-26-2025 Globulin (S) [Mass/Vol] 2.2 g/dL 2.2-4.2 [facility] Serum glucose measurement (m ass/volume)Ordered By: Buzz Rainey on 04-26-2025 Glucose [Mass/Vol] 147 mg/dL High 70-99 [facility] Serum or plasma alanine nix otransferase (ALT) measurementOrdered By: Buzz Rainey on 04-26-2025 ALT [Catalytic activity/Vol] 46 U/L <47 [facility] Serum or plasma albumin jesenia urement (mass/volume)Ordered By: Buzz Rainey on 04-26-2025 Albumin [Mass/Vol] 4.0 g/dL 3.4-4.8 [facility] Serum or plasma alkaline radha sphatase measurementOrdered By: Buzz Rainey on 04-26-2025 ALP [Catalytic activity/Vol] 57 U/L 40-129 [facility] Serum or plasma calcium jesenia urement (mass/volume)Ordered By: Buzz Rainey on 04-26-2025 Calcium [Mass/Vol] 9.0 mg/dL 7.6-11.0 [facility] Serum or plasma urea nitroge n measurement (mass/volume)Ordered By: Buzz Rainey on 04-26-2025 Urea nitrogen [Mass/Vol] 37 mg/dL High 4-19 [facility] Sodium levelOrdered By: Otilia baileyjovan Redd on 04-26-2025 Sodium [Moles/Vol] 138 mmol/L 133-145 [facility] Total proteinOrdered By: Franklinlana silveiraestrella Rainey on 04-26-2025 Protein [Mass/Vol] 6.1 g/dL 5.9-8.4 [facility] White blood cell (WBC) count Ordered By: Buzz Rainey on 04-26-2025 WBC (Bld) [#/Vol] 4.7 10*3/uL 4.4-11.0 [facility] Absolute lymphocyte countOrd ered By: Buzz Rainey on 03-29-2025 Lymphocytes Auto (Unsp spec) [#/Vol] 0.83 10*3/uL 0.83-4.51 [facility] Absolute neutrophil countOrd ered By: Buzz Rainey on 03-29-2025 Neutrophils (Bld) [#/Vol] 2.7 10*3/uL 2.0-7.7 [facility] Anion gap in Serum or Plasma Ordered By: Buzz Rainey on 03-29-2025 Anion gap [Moles/Vol] 11 mmol/L 5-15 [facility] Automated lymphocyte count a s percentage of total leukocytesOrdered By: Buzz Rainey on 03-29-2025 Lymphocytes/100 WBC Auto (Unsp spec) 19.5 % 19-41 [facility] BUN/creatinine ratioOrdered By: Buzz Rainey on 03-29-2025 Urea nitrogen/Creatinine [Mass ratio] 30.3 mg/mg High 10-20 [facility] Basophil percentageOrdered B y: Buzz Rainey on 03-29-2025 Basophils/100 WBC (Bld) 0.7 % 0-1 [facility] Carbon dioxide, total [Moles /volume] in Central venous bloodOrdered By: Buzz Rainey on 03-29-2025 CO2 [Moles/Vol] 22.7 mmol/L 21.0-32.0 [facility] Chloride assayOrdered By: Alexandra Rainey on 03-29-2025 Chloride [Moles/Vol] 103 mmol/L 98-108 [facility] Eosinophil percentageOrdered By: Buzz Rainey on 03-29-2025 Eosinophils/100 WBC (Bld) 4.0 % 0-5 [facility] Erythrocyte distribution wid th ratioOrdered By: yumikofarmingtonestrella Rainey on 03-29-2025 Erythrocyte distribution width (RBC) [Ratio] 12.0 % 11.6-14.6 [facility] Erythrocyte distribution wid th standard deviationOrdered By: [facility] Hospitalestrella Rainey on 03-29-2025 Erythrocyte distribution width (RBC) [Ratio] 43.5 fl 35.1-43.9 [facility] Glomerular filtration rate ( GFR) estimation/1.73 sq m using serum, plasma, or whole bOrdered By: tamanna Rainey on 03-29-2025 GFR/1.73 sq M.predicted among non-blacks MDRD (S/P/Bld) [Vol rate/Area] 57 mL/min/{1.73_m2} Low >60 [facility] Comment on above: mL/min/1.73m2 CKD-EP I Creatinine Equation (2020) Hematocrit Auto (Bld) [Volum e fraction]Ordered By: Buzz Rainey on 03-29-2025 Hematocrit (Bld) [Volume fraction] 35.5 % Low 40-54 [facility] Hemoglobin measurementOrdere d By: Buzz Rainey on 03-29-2025 Hemoglobin (Bld) [Mass/Vol] 12.1 g/dL Low 13.0-16.5 [facility] Immature granulocytes/100 WB C Auto (Bld)Ordered By: Buzz Rainey on 03-29-2025 Immature granulocytes/100 WBC (Bld) 0.000 % 0.0-0.9 [facility] Comment on above: IG% - Immature Granu locytes (promyelocytes, myelocytes and metamyelocytes) > 1% indicates that a LEFT SHIFT is Present. MCV (mean corpuscular volume ) determinationOrdered By: Buzz Rainey on 03-29-2025 MCV (RBC) [Entitic vol] 98.3 fL High 80-94 [facility] Mean corpuscular hemoglobin (MCH) determinationOrdered By: Buzz Rainey on 03-29-2025 MCH (RBC) [Entitic mass] 33.5 pg High 27.0-32.0 [facility] Mean corpuscular hemoglobin concentration (MCHC) determinationOrdered By: Buzz Rainey on 03-29-2025 MCHC (RBC) [Mass/Vol] 34.1 g/dL 32-36 [facility] Mean platelet volume determi nationOrdered By: Buzz Rainey on 03-29-2025 Platelet mean volume (Bld) [Entitic vol] 10.4 fL 6.2-12.0 [facility] Monocyte percentageOrdered B y: Buzz Rainey on 03-29-2025 Monocytes/100 WBC (Bld) 12.2 % High 0-10 [facility] Neutrophil percentageOrdered By: Buzz Rainey on 03-29-2025 Neutrophils/100 WBC (Bld) 63.6 % 47-70 [facility] Nucleated red blood cell per centageOrdered By: Buzz Rainey on 03-29-2025 Nucleated RBC/100 WBC (Bld) [Ratio] 0 % 0-5 [facility] Platelet countOrdered By: Alexandra Rainey on 03-29-2025 Platelets (Bld) [#/Vol] 182 10*3/uL 150-450 [facility] Potassium measurement (mass/ volume)Ordered By: Buzz Rainey on 03-29-2025 Potassium (Unsp spec) [Mass/Vol] 4.8 mmol/L 3.3-5.1 [facility] RBC Auto (Bld) [#/Vol]Ordere d By: Buzz Rainey on 03-29-2025 RBC (Bld) [#/Vol] 3.61 10*6/uL Low 4.6-6.2 [facility] Serum creatinine measurement (mass/volume)Ordered By: Buzz Rainey on 03-29-2025 Creatinine [Mass/Vol] 1.25 mg/dL High 0.70-1.20 [facility] Serum glucose measurement (m ass/volume)Ordered By: Buzz Rainye on 03-29-2025 Glucose [Mass/Vol] 269 mg/dL High 70-99 [facility] Serum or plasma calcium jesenia urement (mass/volume)Ordered By: Buzz Rainey on 03-29-2025 Calcium [Mass/Vol] 9.0 mg/dL 7.6-11.0 [facility] Serum or plasma urea nitroge n measurement (mass/volume)Ordered By: Buzz Rainey on 03-29-2025 Urea nitrogen [Mass/Vol] 38 mg/dL High 4-19 [facility] Sodium levelOrdered By: Otilia baileycharilana Rainey on 03-29-2025 Sodium [Moles/Vol] 136 mmol/L 133-145 [facility] White blood cell (WBC) count Ordered By: Buzz Rainey on 03-29-2025 WBC (Bld) [#/Vol] 4.3 10*3/uL Low 4.4-11.0 [facility] CNOVon 2025 CNOV Office Visit (CARDWS ) FLEX KLINE ([id number]) 1940 M Date Time Provider Department 03/05/25 11:00 AM HARJINDER JONES During your visit today, we recorded the following information about you: Pulse Respiration Blood pressure Weight 82/minute 16/minute 138/60 81.6 kg Height 1.765 m Harjinder Jones MD 2025 12:16 PM Signed Harjinder Jones MD Interventional Cardiology [address] [place] [phone] Chief Complaint Patient presents with: Follow Up: 6 week follow up, c/o chest pain HISTORY OF PRESENT ILLNESS: Mr. Kline is a 85 year old male seen in my office today for follow-up patient had a prior history of severe ekwok coronary artery disease with prior history of [...] meals. FOL (more content not included)... Normal [facility] CNOVon 03-02-2025 CNOV Office Visit (AGCARDPOB) RAISAFLEX ARIAS [place] ([id number]) 1940 M Date Time Provider Department 03/02/25 10:20 AM KWAN ESTRELLA AGCARDPOB During your visit today, we recorded the following information about you: Pulse Blood pressure Weight 69/minute 113/63 81.6 kg Kwan Estrella MD 03/02/2025 11:18 AM Signed [facility] [place] [facility] SECTION OF CARDIAC PACING and ELECTROPHYSIOLOGY OUTPATIENT VISIT DATE March 02, 2025 OUTPATIENT VISIT TYPE NEW PRIMARY CARE PHYSICIAN: Vincent Espinosa [address] [place] [address] REFERRING PHYSICIAN: Harjinder Jones [address] [facility], [address] [facility] [id number] chief complaint on file. HISTORY OF PRESENT [...] currently a resident at [facility]. Had a recent UTI in 10/2024, still [...] fibrillation ECG 11/29/23 - SR 77 bpm KS 210 QRS 102 QT/c 364 411 PVC [...] rare (<1.0%). Isolated VEs were rare (<1.0%, 82068), VE Couplets were rare (<1.0%, 63), and VE Triplets were rare (<1.0%, 19). Ventricular Bigeminy and Trigeminy were present. Difficulty discerning atrial activity making definitive diagnosis difficult to ascertain. NM SPECT 04/23/21- . SPECT Perfusion Study: Normal. 2. There is [...] system(341.8) Peripheral vascular disease, unspecified ([facility]) Type II or unspecified type diabetes [...] No Fa (more content not included)... Normal [facility] ECG B/O W INTERP (MED OFFICE )on 03-02-2025 .Sinus rhythm 68 bpm KS 264ms First degree AVB QRS 96ms QT/c 398/423ms nl Qrs morphology and early repol change in 2.3.aVF [facility] Absolute lymphocyte countOrd ered By: Buzz Rainey on 03-01-2025 Lymphocytes Auto (Unsp spec) [#/Vol] 0.88 10*3/uL 0.83-4.51 [facility] Absolute neutrophil countOrd ered By: Buzz Rainey on 03-01-2025 Neutrophils (Bld) [#/Vol] 4.2 10*3/uL 2.0-7.7 [facility] Anion gap in Serum or Plasma Ordered By: Buzz Rainey on 03-01-2025 Anion gap [Moles/Vol] 13 mmol/L 5-15 [facility] Automated lymphocyte count a s percentage of total leukocytesOrdered By: Buzz Rainey on 03-01-2025 Lymphocytes/100 WBC Auto (Unsp spec) 14.9 % Low 19-41 [facility] BUN/creatinine ratioOrdered By: Buzz Rainey on 03-01-2025 Urea nitrogen/Creatinine [Mass ratio] 37.1 mg/mg High 10-20 [facility] Basophil percentageOrdered B y: Buzz Rainey on 03-01-2025 Basophils/100 WBC (Bld) 0.7 % 0-1 [facility] Carbon dioxide, total [Moles /volume] in Central venous bloodOrdered By: Buzz Rainey on 03-01-2025 CO2 [Moles/Vol] 21.5 mmol/L 21.0-32.0 [facility] Chloride assayOrdered By: Alexandra Rainey on 03-01-2025 Chloride [Moles/Vol] 104 mmol/L 98-108 [facility] Eosinophil percentageOrdered By: Buzz Rainey on 03-01-2025 Eosinophils/100 WBC (Bld) 3.7 % 0-5 [facility] Erythrocyte distribution wid th ratioOrdered By: Buzz Rainey on 03-01-2025 Erythrocyte distribution width (RBC) [Ratio] 11.9 % 11.6-14.6 [facility] Erythrocyte distribution wid th standard deviationOrdered By: Buzz Rainey on 03-01-2025 Erythrocyte distribution width (RBC) [Ratio] 43.6 fl 35.1-43.9 [facility] Glomerular filtration rate ( GFR) estimation/1.73 sq m using serum, plasma, or whole bOrdered By: Buzz Rainey on 03-01-2025 GFR/1.73 sq M.predicted among non-blacks MDRD (S/P/Bld) [Vol rate/Area] 61 mL/min/{1.73_m2} >60 [facility] Comment on above: mL/min/1.73m2 CKD-EP I Creatinine Equation (2020) Hematocrit Auto (Bld) [Volum e fraction]Ordered By: Buzz Rainey on 03-01-2025 Hematocrit (Bld) [Volume fraction] 40.7 % 40-54 [facility] Hemoglobin measurementOrdere d By: Buzz Rainey on 03-01-2025 Hemoglobin (Bld) [Mass/Vol] 13.9 g/dL 13.0-16.5 [facility] Immature granulocytes/100 WB C Auto (Bld)Ordered By: Buzz Rainey on 03-01-2025 Immature granulocytes/100 WBC (Bld) 0.200 % 0.0-0.9 [facility] Comment on above: IG% - Immature Granu locytes (promyelocytes, myelocytes and metamyelocytes) > 1% indicates that a LEFT SHIFT is Present. MCV (mean corpuscular volume ) determinationOrdered By: Buzz Rainey on 03-01-2025 MCV (RBC) [Entitic vol] 99.5 fL High 80-94 [facility] Mean corpuscular hemoglobin (MCH) determinationOrdered By: Buzz Rainey on 03-01-2025 MCH (RBC) [Entitic mass] 34.0 pg High 27.0-32.0 [facility] Mean corpuscular hemoglobin concentration (MCHC) determinationOrdered By: Buzz Rainey on 03-01-2025 MCHC (RBC) [Mass/Vol] 34.2 g/dL 32-36 [facility] Mean platelet volume determi nationOrdered By: Buzz Rainey on 03-01-2025 Platelet mean volume (Bld) [Entitic vol] 10.4 fL 6.2-12.0 [facility] Monocyte percentageOrdered B y: Buzz Rainey on 03-01-2025 Monocytes/100 WBC (Bld) 8.5 % 0-10 [facility] Neutrophil percentageOrdered By: Buzz Rainey on 03-01-2025 Neutrophils/100 WBC (Bld) 72.0 % High 47-70 [facility] Nucleated red blood cell per centageOrdered By: Buzz Rainey on 03-01-2025 Nucleated RBC/100 WBC (Bld) [Ratio] 0 % 0-5 [facility] Platelet countOrdered By: Alexandra Rainey on 03-01-2025 Platelets (Bld) [#/Vol] 213 10*3/uL 150-450 [facility] Potassium measurement (mass/ volume)Ordered By: Buzz Rainey on 03-01-2025 Potassium (Unsp spec) [Mass/Vol] 4.5 mmol/L 3.3-5.1 [facility] RBC Auto (Bld) [#/Vol]Ordere d By: Buzz Rainey on 03-01-2025 RBC (Bld) [#/Vol] 4.09 10*6/uL Low 4.6-6.2 [facility] Serum creatinine measurement (mass/volume)Ordered By: Buzz Rainey on 03-01-2025 Creatinine [Mass/Vol] 1.19 mg/dL 0.70-1.20 [facility] Serum glucose measurement (m ass/volume)Ordered By: Buzz Rainey on 03-01-2025 Glucose [Mass/Vol] 152 mg/dL High 70-99 [facility] Serum or plasma calcium jesenia urement (mass/volume)Ordered By: Buzz Rainey on 03-01-2025 Calcium [Mass/Vol] 9.5 mg/dL 7.6-11.0 [facility] Serum or plasma urea nitroge n measurement (mass/volume)Ordered By: Buzz Rainey on 03-01-2025 Urea nitrogen [Mass/Vol] 44 mg/dL High 4-19 [facility] Sodium levelOrdered By: Otilia Rainey on 03-01-2025 Sodium [Moles/Vol] 138 mmol/L 133-145 [facility] White blood cell (WBC) count Ordered By: Buzz Rainey on 03-01-2025 WBC (Bld) [#/Vol] 5.9 10*3/uL 4.4-11.0 [facility] Bilirubin Test strip Ql (U)O rdered By: Buzz Rainey on 02-28-2025 Bilirubin Ql (U) Negative Negative [facility] Ketones Test strip Ql (U)Ord ered By: Buzz Rainey on 02-28-2025 Ketones Ql (U) Negative Negative [facility] Nitrite Test strip Ql (U)Ord ered By: Buzz Rainey on 02-28-2025 Nitrite Ql (U) Negative Negative [facility] Protein Test strip Ql (U)Ord ered By: Buzz Rainey on 02-28-2025 Protein Ql (U) 15 mg/dl High Negative [facility] Urine clarityOrdered By: Franklin Rainey on 02-28-2025 Clarity (U) Clear Clear [facility] Urine color determinationOrd ered By: Buzz Rainey on 02-28-2025 Color (U) Straw Yellow [facility] Urine cultureOrdered By: Franklin Rainey on 02-28-2025 Bacteria identified Cx Nom (U) Positive Abnormal [facility] Urine glucose detectionOrder ed By: Buzz Rainey on 02-28-2025 Glucose Ql (U) 1000 mg/dl High Normal [facility] Urine leukocyte esterase det ection by dipstickOrdered By: Buzz Rainey on 02-28-2025 Leukocyte esterase Test strip Ql (U) 25 /ul High Negative [facility] Urine pHOrdered By: Mallorie Rainey on 02-28-2025 pH (U) 6.0 [pH] 5.0 - 8.0 [facility] Urine specific gravity measu rementOrdered By: Buzz Rainey on 02-28-2025 Specific gravity (U) [Rel density] 1.020 1.002-1.030 [facility] Urine urobilinogen measureme ntOrdered By: Buzz Rainey on 02-28-2025 Urobilinogen Ql (U) Normal mg/dl Normal [facility] Endocrinology Visit Reporton 02-27-2025 Endocrinology Visit Report [facility] 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 Normal [facility] Absolute lymphocyte countOrd ered By: Buzz Rainey on 01-31-2025 Lymphocytes Auto (Unsp spec) [#/Vol] 0.83 10*3/uL 0.83-4.51 [facility] Absolute neutrophil countOrd ered By: Buzz Rainey on 01-31-2025 Neutrophils (Bld) [#/Vol] 3.3 10*3/uL 2.0-7.7 [facility] Anion gap in Serum or Plasma Ordered By: Buzz Rainey on 01-31-2025 Anion gap [Moles/Vol] 14 mmol/L 5-15 [facility] Automated lymphocyte count a s percentage of total leukocytesOrdered By: Buzz Rainey on 01-31-2025 Lymphocytes/100 WBC Auto (Unsp spec) 16.0 % Low 19-41 [facility] BUN/creatinine ratioOrdered By: Buzz Rainey on 01-31-2025 Urea nitrogen/Creatinine [Mass ratio] 28.0 mg/mg High 10-20 [facility] Basophil percentageOrdered B y: Buzz Rainey on 01-31-2025 Basophils/100 WBC (Bld) 0.4 % 0-1 [facility] Bilirubin directOrdered By: Buzz Rainey on 01-31-2025 Bilirubin.direct [Mass/Vol] 0.22 mg/dL 0.00-0.30 [facility] Bilirubin, totalOrdered By: Buzz Rainey on 01-31-2025 Bilirubin [Mass/Vol] 0.47 mg/dL 0.00-1.30 [facility] Carbon dioxide, total [Moles /volume] in Central venous bloodOrdered By: Buzz Rainey on 01-31-2025 CO2 [Moles/Vol] 21.6 mmol/L 21.0-32.0 [facility] Chloride assayOrdered By: Alexandra Rainey on 01-31-2025 Chloride [Moles/Vol] 101 mmol/L 98-108 [facility] Eosinophil percentageOrdered By: Buzz Rainey on 01-31-2025 Eosinophils/100 WBC (Bld) 6.2 % High 0-5 [facility] Erythrocyte distribution wid th (RBC) [Ratio]Ordered By: Buzz Rainey on 01-31-2025 Erythrocyte distribution width (RBC) [Entitic vol] 45.0 fL High 35.1-43.9 [facility] Erythrocyte distribution wid th ratioOrdered By: Buzz Rainey on 01-31-2025 Erythrocyte distribution width (RBC) [Ratio] 12.1 % 11.6-14.6 [facility] Erythrocyte distribution wid th standard deviationOrdered By: Buzz Rainey on 01-31-2025 Erythrocyte distribution width (RBC) [Ratio] 45.0 fl High 35.1-43.9 [facility] GFR/1.73 sq M.predicted [place] g non-blacks MDRD (S/P/Bld) [Vol rate/Area]Ordered By: Buzz Rainey on 01-31-2025 Estimated GFR (MDRD) Non-Af Amer 49 Low >60 [facility] Comment on above: mL/min/1.73m2 CKD-EP I Creatinine Equation (2020) Glomerular filtration rate ( GFR) estimation/1.73 sq m using serum, plasma, or whole bOrdered By: Buzz Rainey on 01-31-2025 GFR/1.73 sq M.predicted among non-blacks MDRD (S/P/Bld) [Vol rate/Area] 49 mL/min/{1.73_m2} Low >60 [facility] Comment on above: mL/min/1.73m2 CKD-EP I Creatinine Equation (2020) Hematocrit Auto (Bld) [Volum e fraction]Ordered By: Buzz Rainey on 01-31-2025 Hematocrit (Bld) [Volume fraction] 39.9 % Low 40-54 [facility] Hemoglobin A1c percentageOrd ered By: Buzz Rainey on 01-31-2025 HbA1c (Bld) [Mass fraction] 7.9 % >5.7 [facility] Hemoglobin measurementOrdere d By: Buzz Rainey on 01-31-2025 Hemoglobin (Bld) [Mass/Vol] 13.8 g/dL 13.0-16.5 [facility] Immature granulocytes/100 WB C Auto (Bld)Ordered By: Buzz Rainey on 01-31-2025 Immature granulocytes/100 WBC (Bld) 0.200 % 0.0-0.9 [facility] Comment on above: IG% - Immature Granu locytes (promyelocytes, myelocytes and metamyelocytes) > 1% indicates that a LEFT SHIFT is Present. Laboratory - Chemistry and C hemistry - challengeOrdered By: Buzz Rainey on 01-31-2025 AST [Catalytic activity/Vol] 32 U/L <38 [facility] Lymphocytes Auto (Unsp spec) [#/Vol]Ordered By: Buzz Rainey on 01-31-2025 Lymphocytes (Bld) [#/Vol] 0.83 10*3/uL 0.83-4.51 [facility] Lymphocytes/100 WBC Auto (Un sp spec)Ordered By: Buzz Rainey on 01-31-2025 Lymphocytes/100 WBC (Bld) 16.0 % Low 19-41 [facility] MCV (mean corpuscular volume ) determinationOrdered By: Buzz Rainey on 01-31-2025 MCV (RBC) [Entitic vol] 99.8 fL High 80-94 [facility] Magnesium (Unsp spec) [Mass/ Vol]Ordered By: Buzz Rainey on 01-31-2025 Magnesium [Mass/Vol] 2.2 mg/dL 1.5-2.2 [facility] Magnesium measurement (mass/ volume)Ordered By: Buzz Rainey on 01-31-2025 Magnesium (Unsp spec) [Mass/Vol] 2.2 mg/dL 1.5-2.2 [facility] Mean corpuscular hemoglobin (MCH) determinationOrdered By: Buzz Rainey on 01-31-2025 MCH (RBC) [Entitic mass] 34.5 pg High 27.0-32.0 [facility] Mean corpuscular hemoglobin concentration (MCHC) determinationOrdered By: Alexandrayumikoarthur Brainmklana on 01-31-2025 MCHC (RBC) [Mass/Vol] 34.6 g/dL 32-36 [facility] Mean platelet volume determi nationOrdered By: Buzz Brainmklana on 01-31-2025 Platelet mean volume (Bld) [Entitic vol] 10.6 fL 6.2-12.0 [facility] Monocyte percentageOrdered B y: Buzz Brainmklana on 01-31-2025 Monocytes/100 WBC (Bld) 12.7 % High 0-10 [facility] Neutrophil percentageOrdered By: Otiliahueyestrella Brainmklana on 01-31-2025 Neutrophils/100 WBC (Bld) 64.5 % 47-70 [facility] Nucleated red blood cell per centageOrdered By: Alexandrayumikoarthur Brainmklnaa on 01-31-2025 Nucleated RBC/100 WBC (Bld) [Ratio] 0 % 0-5 [facility] Platelet countOrdered By: Alexandra tamanna Brainmklana on 01-31-2025 Platelets (Bld) [#/Vol] 218 10*3/uL 150-450 [facility] Potassium (Unsp spec) [Mass/ Vol]Ordered By: Alexandrayumikoarthur Brainmklana on 01-31-2025 Potassium [Moles/Vol] 5.3 mmol/L High 3.3-5.1 [facility] Potassium measurement (mass/ volume)Ordered By: Otiliahueyestrella De La Pazmklana on 01-31-2025 Potassium (Unsp spec) [Mass/Vol] 5.3 mmol/L High 3.3-5.1 [facility] RBC Auto (Bld) [#/Vol]Ordere d By: Buzz Brainmklana on 01-31-2025 RBC (Bld) [#/Vol] 4.00 10*6/uL Low 4.6-6.2 [facility] Serum creatinine measurement (mass/volume)Ordered By: Otiliahueyestrella De La Pazmklana on 01-31-2025 Creatinine [Mass/Vol] 1.43 mg/dL High 0.70-1.20 [facility] Serum globulin measurementOr dered By: Buzz Rainey on 01-31-2025 Globulin (S) [Mass/Vol] 2.8 g/dL 2.2-4.2 [facility] Serum glucose measurement (m ass/volume)Ordered By: Buzz Rainey on 01-31-2025 Glucose [Mass/Vol] 265 mg/dL High 70-99 [facility] Serum or plasma alanine nix otransferase (ALT) measurementOrdered By: Buzz Rainey on 01-31-2025 ALT [Catalytic activity/Vol] 35 U/L <47 [facility] Serum or plasma albumin jesenia urement (mass/volume)Ordered By: Buzz Rainey on 01-31-2025 Albumin [Mass/Vol] 4.3 g/dL 3.4-4.8 [facility] Serum or plasma alkaline radha sphatase measurementOrdered By: Buzz Rainey on 01-31-2025 ALP [Catalytic activity/Vol] 83 U/L 40-129 [facility] Serum or plasma calcium jesenia urement (mass/volume)Ordered By: Buzz Rainey on 01-31-2025 Calcium [Mass/Vol] 9.3 mg/dL 7.6-11.0 [facility] Serum or plasma urea nitroge n measurement (mass/volume)Ordered By: Buzz Rainey on 01-31-2025 Urea nitrogen [Mass/Vol] 40 mg/dL High 4-19 [facility] Sodium levelOrdered By: Otilia Rainey on 01-31-2025 Sodium [Moles/Vol] 137 mmol/L 133-145 [facility] Total proteinOrdered By: Franklin Rainey on 01-31-2025 Protein [Mass/Vol] 7.1 g/dL 5.9-8.4 [facility] Vitamin D, 25-hydroxyOrdered By: Buzz Rainey on 01-31-2025 Vitamin D 25-Hydroxy 38.8 ng/mL 30-100 [facility] Comment on above: Vitamin D StatusDefi ciency: <20 ng/mL (50nmol/L)Insufficiency: 20-30 ng/mL (50-75 nmol/L)Sufficiency: 30-100 ng/mL (75-250 nmol/L)Toxicity: >100 ng/mL (>250 nmol/L) White blood cell (WBC) count Ordered By: Buzz Rainey on 01-31-2025 WBC (Bld) [#/Vol] 5.2 10*3/uL 4.4-11.0 [facility] CBC panel Auto (Bld)on 01-22 Erythrocyte distribution width (RBC) [Ratio] 12.4 % 11.5 - 15.0 % [facility] Hematocrit (Bld) [Volume fraction] 37.7 % Low 39.0 - 51.0 % [facility] Hemoglobin (Bld) [Mass/Vol] 12.8 g/dL Low 13.0 - 17.0 g/dL [facility] Interpretation and review of laboratory results Abnormal [facility] MCH (RBC) [Entitic mass] 33.3 pg 26.0 - 34.0 pg [facility] MCHC (RBC) [Mass/Vol] 34 g/dL 30.5 - 36.0 g/dL [facility] MCV (RBC) [Entitic vol] 98.2 fL 80.0 - 100.0 fL [facility] Nucleated RBC (Bld) [#/Vol] NINF [facility] Platelet mean volume (Bld) [Entitic vol] 9.4 fL 9.0 - 12.7 fL [facility] Platelets (Bld) [#/Vol] 216 10*3/uL [facility] RBC (Bld) [#/Vol] 3.84 10*6/uL Low 4.20 - 6.0 0 m/uL [facility] WBC (Bld) [#/Vol] 5.09 10*3/uL [facility] Erythrocyte distribution width (RBC) [Ratio] 12.4 % Normal 11.5-15.0 [facility] Comment on above: Order Comment: Speci men Type: BLOOD SPECIMEN Ordering Facility: [facility] Address: [address] [place] [address] Performed By: #### 3 3762-6, 3016-3 #### [facility] CLIA [id number] [address] [place] [address] Hematocrit (Bld) [Volume fraction] 37.7 % Low 39.0-51.0 [facility] Comment on above: Order Comment: Speci men Type: BLOOD SPECIMEN Ordering Facility: [facility] Address: [address] [place] [address] Performed By: #### 3 3762-6, 3016-3 #### [facility] CLIA [id number] [address] [place] Hemoglobin (Bld) [Mass/Vol] 12.8 g/dL Low 13.0-17.0 [facility] Comment on above: Order Comment: Speci men Type: BLOOD SPECIMEN Ordering Facility: [facility] Address: [address] [place] [address] Performed By: #### 3 3762-6, 3016-3 #### [facility] CLIA [id number] [address] [place] [address] [facility] MCH (RBC) [Entitic mass] 33.3 pg Normal 26.0-34.0 [facility] Comment on above: Order Comment: Speci men Type: BLOOD SPECIMEN Ordering Facility: [facility] Address: [address] [place] [address] Performed By: #### 3 3762-6, 3016-3 #### [facility] CLIA [id number] [address] [place] [address] [facility] MCHC (RBC) [Mass/Vol] 34.0 g/dL Normal 30.5-36.0 [facility] Comment on above: Order Comment: Speci men Type: BLOOD SPECIMEN Ordering Facility: [facility] Address: [address] [place] [address] Performed By: #### 3 3762-6, 3016-3 #### [facility] CLIA [id number] [address] MCV (RBC) [Entitic vol] 98.2 fL Normal 80.0-100.0 [facility] Comment on above: Order Comment: Speci men Type: BLOOD SPECIMEN Ordering Facility: [facility] Address: [address] [place] [address] Performed By: #### 3 3762-6, 3016-3 #### [facility] CLIA [id number] [address] [place] Nucleated RBC (Bld) [#/Vol] 10*3/uL Normal <0.01 [facility] Comment on above: Order Comment: Speci men Type: BLOOD SPECIMEN Ordering Facility: [facility] Address: [address] [place] [address] Performed By: #### 3 3762-6, 3016-3 #### [email or web address] CLIA [id number] [address] [place] Platelet mean volume (Bld) [Entitic vol] 9.4 fL Normal 9.0-12.7 [facility] Comment on above: Order Comment: Speci men Type: BLOOD SPECIMEN Ordering Facility: [facility] Address: [address] [place] [address] Performed By: #### 3 376-6, 3016-3 #### [email or web address] CLIA [id number] [address] [place] Platelets (Bld) [#/Vol] 216 10*3/uL Normal 150-400 [facility] Comment on above: Order Comment: Speci men Type: BLOOD SPECIMEN Ordering Facility: [facility] Address: [address] [place] [address] Performed By: #### 3 3762-6, 3016-3 #### [facility] CLIA [id number] [address] [place] [address] [place] RBC (Bld) [#/Vol] 3.84 10*6/uL Low 4.20-6.00 [facility] Comment on above: Order Comment: Speci men Type: BLOOD SPECIMEN Ordering Facility: [facility] Address: [address] [place] [address] Performed By: #### 3 3762-6, 3016-3 #### [facility] CLIA [id number] [address] [place] [address] [place] WBC (Bld) [#/Vol] 5.09 10*3/uL Normal 3.70-11.00 [facility] Comment on above: Order Comment: Speci men Type: BLOOD SPECIMEN Ordering Facility: [facility] Address: [address] [place] [address] Performed By: #### 3 3762-6, 3016-3 #### [facility] CLIA [id number] [address] [facility] CNOVon 01-22-2025 CNOV Office Visit (CARDWS ) FLEX KLINE ([id number]) 1940 Date Time Provider Department 01/22/25 1:40 PM HARJINDER JONES During your visit today, we recorded the following information about you: Pulse Respiration Blood pressure Weight 91/minute 14/minute 156/70 79.8 kg Height 1.765 m Harjinder Jones MD 01/22/2025 2:39 PM Signed Harjinder Jones MD Interventional Cardiology [address] [place] [address] [phone] Chief Complaint Patient presents with: Follow Up: [...] system(341.8) Peripheral vascular disease, unspecified ([facility]) Type II or unspecified type diabetes [...] Take one(1) (more content not included)... Normal [facility] Comprehensive metabolic 2000 panelOrdered By: Jasmina Young on 01-22-2025 Albumin [Mass/Vol] 4.1 g/dL 3.9 - 4.9 g/dL [facility] ALP [Catalytic activity/Vol] 76 U/L 38 - 113 U/L [facility] ALT [Catalytic activity/Vol] 20 U/L 10 - 54 U/L [facility] Anion gap [Moles/Vol] 9 mmol/L 8 - 15 mmol/L [facility] AST [Catalytic activity/Vol] 19 U/L 14 - 40 U/L [facility] Bilirubin [Mass/Vol] 0.6 mg/dL 0.2 - 1 .3 mg/dL [facility] Calcium [Mass/Vol] 9.3 mg/dL 8.5 - 10. 2 mg/dL [facility] Chloride [Moles/Vol] 103 mmol/L 98 - 10 7 mmol/L [facility] CO2 [Moles/Vol] 27 mmol/L 22 - 30 mmol/L [facility] Creatinine [Mass/Vol] 1.32 mg/dL High 0.73 - 1.22 mg/dL [facility] GFR/1.73 sq M.predicted among non-blacks MDRD (S/P/Bld) [Vol rate/Area] 54 mL/min/{1.73_m2} Low - PINF [facility] Comment on above: Estimated Glomerular Filtration Rate (eGFR) is calculated using the 202 CKD-EPI creatinine equation. This equation utilizes serum creatinine, sex, and age as parameters. The creatinine assay has traceable calibration to isotope dilution-mass spectrometry. Refer to KDIGO guidelines for clinical interpretation. In patients with unstable renal function, e.g. those with acute kidney injury, the eGFR may not accurately reflect actual GFR. Glucose [Mass/Vol] 171 mg/dL High 74 - 99 mg/dL [facility] Comment on above: The [place] Diabete s Association (ADA) provides guidance for [...] Standards of Medical Care in Diabetes 2016, [place] Diabetes Association. Diabetes Care. 2016.39(Suppl 1). Interpretation and review of laboratory results Abnormal [facility] Potassium [Moles/Vol] 5.1 mmol/L 3.7 - 5.1 mmol/L [facility] Protein [Mass/Vol] 6.7 g/dL 6.3 - 8.0 g/dL [facility] Sodium [Moles/Vol] 139 mmol/L 136 - 144 mmol/L [facility] Urea nitrogen [Mass/Vol] 30 mg/dL High 9 - 24 mg/dL [facility] Comprehensive metabolic 2000 panelon 01-22-2025 Albumin [Mass/Vol] 4.1 g/dL Normal 3.9-4.9 [facility] Comment on above: Order Comment: Speci men Type: BLOOD SPECIMEN Ordering Facility: [facility] Address: [facility] [place] [address] Performed By: #### 2 4323-8 #### [facility] CLIA [id number] [address] [place] [address] [place] ALP [Catalytic activity/Vol] 76 U/L Normal 38-113 [facility] Comment on above: Order Comment: Speci men Type: BLOOD SPECIMEN Ordering Facility: [facility] Address: [address] [place] [address] Performed By: #### 2 4323-8 #### [facility] CLIA [id number] [address] [place] [address] [place] ALT [Catalytic activity/Vol] 20 U/L Normal 10-54 [facility] Comment on above: Order Comment: Speci men Type: BLOOD SPECIMEN Ordering Facility: [facility] Address: [address] [place] [address] Performed By: #### 2 4323-8 #### [facility] CLIA [id number] [address] [place] [address] [place] Anion gap [Moles/Vol] 9 mmol/L Normal 8-15 [facility] Comment on above: Order Comment: Speci men Type: BLOOD SPECIMEN Ordering Facility: [facility] Address: [address] [place] [address] Performed By: #### 2 4323-8 #### [facility] CLIA [id number] [address] [place] [address] [place] AST [Catalytic activity/Vol] 19 U/L Normal 14-40 [facility] Comment on above: Order Comment: Speci men Type: BLOOD SPECIMEN Ordering Facility: [facility] Address: [address] [place] [address] Performed By: #### 2 4323-8 #### [facility] CLIA [id number] [address] [place] [address] [place] Bilirubin [Mass/Vol] 0.6 mg/dL Normal 0.2-1.3 [facility] Comment on above: Order Comment: Speci men Type: BLOOD SPECIMEN Ordering Facility: [facility] Address: [address] [place] [address] Performed By: #### 2 4323-8 #### [facility] CLIA [id number] [address] [place] [address] [place] Calcium [Mass/Vol] 9.3 mg/dL Normal 8.5-10.2 [facility] Comment on above: Order Comment: Speci men Type: BLOOD SPECIMEN Ordering Facility: [facility] Address: [address] [place] [address] Performed By: #### 2 4323-8 #### [facility] CLIA [id number] [address] [place] [address] [place] Chloride [Moles/Vol] 103 mmol/L Normal 98-107 [facility] Comment on above: Order Comment: Speci men Type: BLOOD SPECIMEN Ordering Facility: [facility] Address: [address] [place] [address] Performed By: #### 2 4323-8 #### [facility] CLIA [id number] [address] [place] [address] [place] CO2 [Moles/Vol] 27 mmol/L Normal 22-30 [facility] Comment on above: Order Comment: Speci men Type: BLOOD SPECIMEN Ordering Facility: [facility] Address: [address] [place] [address] Performed By: #### 2 4323-8 #### [facility] CLIA [id number] [address] [place] [address] [place] Creatinine [Mass/Vol] 1.32 mg/dL High 0.73-1.22 [facility] Comment on above: Order Comment: Speci men Type: BLOOD SPECIMEN Ordering Facility: [facility] Address: [address] [place] [address] Performed By: #### 2 4323-8 #### [facility] CLIA [id number] [address] [place] [address] [place] Creatinine and Glomerular filtration rate.predicted panel (S/P/Bld) 54 mL/min/1.73m??? Low >=60 [facility] Comment on above: Order Comment: Krystyna funk Type: BLOOD SPECIMEN Ordering Facility: [facility] Address: [address] [place] [address] Result Comment: Beatrice mated Glomerular Filtration Rate [...] GFR. Performed By: #### 2 4323-8 #### [id number] [address] [place] [address] [place] Glucose [Mass/Vol] 171 mg/dL High 74-99 [facility] Comment on above: Order Comment: Krystyna funk Type: BLOOD SPECIMEN Ordering Facility: [facility] Address: [address] [place] [address] Result Comment: The [place] Diabetes Association (ADA) provides guidance for cutoff [...] Standards of Medical Care in Diabetes 2016, [place] Diabetes Association. Diabetes Care. 2016.39(Suppl 1). Performed By: #### 2 4323-8 #### [id number] [address] [place] [address] [place] Potassium [Moles/Vol] 5.1 mmol/L Normal 3.7-5.1 [facility] Comment on above: Order Comment: Speci men Type: BLOOD SPECIMEN Ordering Facility: [facility] Address: [address] [place] [address] Performed By: #### 2 4323-8 #### [facility] CLIA [id number] [address] [place] [address] [place] Protein [Mass/Vol] 6.7 g/dL Normal 6.3-8.0 [facility] Comment on above: Order Comment: Speci men Type: BLOOD SPECIMEN Ordering Facility: [facility] Address: [address] [place] [address] Performed By: #### 2 4323-8 #### [facility] [id number] [address] [place] [address] [place] Sodium [Moles/Vol] 139 mmol/L Normal 136-144 [facility] Comment on above: Order Comment: Speci men Type: BLOOD SPECIMEN Ordering Facility: [facility] Address: [address] [place] [address] Performed By: #### 2 4323-8 #### [facility] [id number] [address] [place] [address] [place] Urea nitrogen [Mass/Vol] 30 mg/dL High 9-24 [facility] Comment on above: Order Comment: Speci men Type: BLOOD SPECIMEN Ordering Facility: [facility] Address: [address] [place] [address] Performed By: #### 2 4323-8 #### [facility] [id number] [address] [place] [address] [place] NT-proBNP [facility] 01-22 Natriuretic peptide.B prohormone N-Terminal [Mass/Vol] 437 pg/mL Normal <450 [facility] Comment on above: Order Comment: Speci men Type: BLOOD SPECIMEN Ordering Facility: [facility] Address: [address] [place] [address] Performed By: #### 3 3762-6, 3016-3 #### [facility] CLIA [id number] [address] [place] TSH SerPl-aCncon 01-22-2025 TSH Qn 5.250 m[IU]/L High 0.270-4.200 [facility] Comment on above: Order Comment: Speci men Type: BLOOD SPECIMEN Ordering Facility: [facility] Address: [address] [place] [address] Performed By: #### 3 3762-6, 3016-3 #### [facility] CLIA [id number] [address] [place] Absolute lymphocyte countOrd ered By: Buzz Rainey on 01-04-2025 Lymphocytes Auto (Unsp spec) [#/Vol] 0.86 10*3/uL 0.83-4.51 [facility] Absolute neutrophil countOrd ered By: Buzz Rainey on 01-04-2025 Neutrophils (Bld) [#/Vol] 2.9 10*3/uL 2.0-7.7 [facility] Automated lymphocyte count a s percentage of total leukocytesOrdered By: Buzz Rainey on 01-04-2025 Lymphocytes/100 WBC Auto (Unsp spec) 17.8 % Low 19-41 [facility] Basophil percentageOrdered B y: Buzz Rainey on 01-04-2025 Basophils/100 WBC (Bld) 0.6 % 0-1 [facility] Blood urea nitrogen (BUN)/cr eatinine ratioOrdered By: Buzz Rainey on 01-04-2025 Urea nitrogen/Creatinine [Mass ratio] 19.2 mg/mg 10-20 [facility] Carbon dioxide measurementOr dered By: Buzz Rainey on 01-04-2025 CO2 [Moles/Vol] 30.0 mmol/L 21.0-32.0 [facility] Chloride measurementOrdered By: Buzz Rainey on 01-04-2025 Chloride [Moles/Vol] 107 mmol/L 98-107 [facility] Eosinophil percentageOrdered By: Buzz Rainey on 01-04-2025 Eosinophils/100 WBC (Bld) 7.7 % High 0-5 [facility] Erythrocyte distribution wid th (RBC) [Ratio]Ordered By: Buzz Rainey on 01-04-2025 Erythrocyte distribution width (RBC) [Entitic vol] 46.5 fL High 35.1-43.9 [facility] Erythrocyte distribution wid th ratioOrdered By: [facility] Hospital[facility]rella Rainey on 01-04-2025 Erythrocyte distribution width (RBC) [Ratio] 12.4 % 11.6-14.6 [facility] Erythrocyte distribution wid th standard deviationOrdered By: yumikofarmingtonestrella Rainey on 01-04-2025 Erythrocyte distribution width (RBC) [Ratio] 46.5 fl High 35.1-43.9 [facility] Estimated glomerular filtrat ion rate (GFR) AmericanOrdered By: Buzz Rainey on 01-04-2025 Estimated GFR (MDRD) Amer 57 mL/min Low >60 [facility] Comment on above: GFR Calc Glomerular filtration rate ( GFR) estimationOrdered By: Buzz Rainey on 01-04-2025 Estimated GFR (MDRD) Non-Af Amer 47 mL/min Low >60 [facility] Comment on above: Non- GFR Calc GFR/1.73 sq M.predicted among non-blacks MDRD (S/P/Bld) [Vol rate/Area] 47 mL/min/{1.73_m2} Low >60 [facility] Comment on above: Non- GFR Calc Glucose measurementOrdered B y: Otiliahueyestrella Rainey on 01-04-2025 Glucose [Mass/Vol] 225 mg/dL High 74-106 [facility] Comment on above: Glucose result great er than or equal to 200 mg/dLsuggests DIABETES MELLITUS per A.D.A. criteria. Hematocrit Auto (Bld) [Volum e fraction]Ordered By: Buzz Rainey on 01-04-2025 Hematocrit (Bld) [Volume fraction] 39.9 % Low 40-54 [facility] Hemoglobin measurementOrdere d By: Buzz Rainey on 01-04-2025 Hemoglobin (Bld) [Mass/Vol] 13.1 g/dL 13.0-16.5 [facility] Immature granulocytes/100 WB C Auto (Bld)Ordered By: Buzz Rainey on 01-04-2025 Immature granulocytes/100 WBC (Bld) 0.200 % 0.0-0.9 [facility] Comment on above: IG% - Immature Granu locytes (promyelocytes, myelocytes and metamyelocytes) > 1% indicates that a LEFT SHIFT is Present. Lymphocytes Auto (Unsp spec) [#/Vol]Ordered By: Buzz Rainey on 01-04-2025 Lymphocytes (Bld) [#/Vol] 0.86 10*3/uL 0.83-4.51 [facility] Lymphocytes/100 WBC Auto (Un sp spec)Ordered By: Buzz Rainey on 01-04-2025 Lymphocytes/100 WBC (Bld) 17.8 % Low 19-41 [facility] MCV (mean corpuscular volume ) determinationOrdered By: Buzz Rainey on 01-04-2025 MCV (RBC) [Entitic vol] 101.0 fL High 80-94 [facility] Mean corpuscular hemoglobin (MCH) determinationOrdered By: Buzz Rainey on 01-04-2025 MCH (RBC) [Entitic mass] 33.2 pg High 27.0-32.0 [facility] Mean corpuscular hemoglobin concentration (MCHC) determinationOrdered By: Buzz Rainey on 01-04-2025 MCHC (RBC) [Mass/Vol] 32.8 g/dL 32-36 [facility] Mean platelet volume determi nationOrdered By: Buzz Rainey on 01-04-2025 Platelet mean volume (Bld) [Entitic vol] 10.0 fL 6.2-12.0 [facility] Monocyte percentageOrdered B y: Buzz Rainey on 01-04-2025 Monocytes/100 WBC (Bld) 12.8 % High 0-10 [facility] Neutrophil percentageOrdered By: Buzz Rainey on 01-04-2025 Neutrophils/100 WBC (Bld) 60.9 % 47-70 [facility] Nucleated red blood cell per centageOrdered By: Buzz De La Pazmklana on 01-04-2025 Nucleated RBC/100 WBC (Bld) [Ratio] 0 % 0-5 [facility] Platelet countOrdered By: Alexandra kenestrella De La Pazmklana on 01-04-2025 Platelets (Bld) [#/Vol] 217 10*3/uL 150-450 [facility] Potassium measurementOrdered By: Buzz Rainey on 01-04-2025 Potassium [Moles/Vol] 4.5 mmol/L 3.5-5.1 [facility] Comment on above: Slight Hemolysis, Re sult may be falsely increased. RBC Auto (Bld) [#/Vol]Ordere d By: Buzz De La Pazmklana on 01-04-2025 RBC (Bld) [#/Vol] 3.95 10*6/uL Low 4.6-6.2 [facility] Serum anion gap measurementO rdered By: Buzz Rainey on 01-04-2025 Anion gap [Moles/Vol] 4 mmol/L Low 5-15 [facility] Serum or plasma calcium jesenia urement (mass/volume)Ordered By: Buzz Rainey on 01-04-2025 Calcium [Mass/Vol] 8.9 mg/dL 8.5-10.1 [facility] Serum or plasma creatinine m easurement (mass/volume)Ordered By: Buzz Rainey on 01-04-2025 Creatinine [Mass/Vol] 1.51 mg/dL High 0.70-1.30 [facility] Comment on above: The validity of the calculated GFR & GFRAA in patients over 70 years has not been determined. Clinical correlation is essential. Serum or plasma urea nitroge n measurement (mass/volume)Ordered By: Buzz Rainey on 01-04-2025 Urea nitrogen [Mass/Vol] 29 mg/dL High 7-18 [facility] Sodium levelOrdered By: Otilia baileyjovan Redd on 01-04-2025 Sodium [Moles/Vol] 141 mmol/L 136-145 [facility] White blood cell (WBC) count Ordered By: Buzz Rainey on 01-04-2025 WBC (Bld) [#/Vol] 4.8 10*3/uL 4.4-11.0 [facility] Absolute lymphocyte countOrd ered By: Buzz Rainey on 12-07-2024 Lymphocytes Auto (Unsp spec) [#/Vol] 1.34 10*3/uL 0.83-4.51 [facility] Absolute neutrophil countOrd ered By: Buzz Rainey on 12-07-2024 Neutrophils (Bld) [#/Vol] 3.2 10*3/uL 2.0-7.7 [facility] Automated lymphocyte count a s percentage of total leukocytesOrdered By: Buzz Rainey on 12-07-2024 Lymphocytes/100 WBC Auto (Unsp spec) 24.8 % 19-41 [facility] Basophil percentageOrdered B y: Buzz Rainey on 12-07-2024 Basophils/100 WBC (Bld) 0.6 % 0-1 [facility] Blood urea nitrogen (BUN)/cr eatinine ratioOrdered By: Buzz Rainey on 12-07-2024 Urea nitrogen/Creatinine [Mass ratio] 18.5 mg/mg 10-20 [facility] Carbon dioxide measurementOr dered By: Buzz Rainey on 12-07-2024 CO2 [Moles/Vol] 27.0 mmol/L 21.0-32.0 [facility] Chloride measurementOrdered By: Buzz Rainey on 12-07-2024 Chloride [Moles/Vol] 106 mmol/L 98-107 [facility] Eosinophil percentageOrdered By: Buzz Rainey on 12-07-2024 Eosinophils/100 WBC (Bld) 5.5 % High 0-5 [facility] Erythrocyte distribution wid th (RBC) [Ratio]Ordered By: Buzz Rainey on 12-07-2024 Erythrocyte distribution width (RBC) [Entitic vol] 46.2 fL High 35.1-43.9 [facility] Erythrocyte distribution wid th ratioOrdered By: Buzz Rainey on 12-07-2024 Erythrocyte distribution width (RBC) [Ratio] 12.3 % 11.6-14.6 [facility] Erythrocyte distribution wid th standard deviationOrdered By: Buzz Rainey on 12-07-2024 Erythrocyte distribution width (RBC) [Ratio] 46.2 fl High 35.1-43.9 [facility] Estimated glomerular filtrat ion rate (GFR) AmericanOrdered By: Buzz Rainey on 12-07-2024 Estimated GFR (MDRD) Amer 59 mL/min Low >60 [facility] Comment on above: GFR Calc Glomerular filtration rate ( GFR) estimationOrdered By: Buzz Rainey on 12-07-2024 Estimated GFR (MDRD) Non-Af Amer 49 mL/min Low >60 [facility] Comment on above: Non- GFR Calc GFR/1.73 sq M.predicted among non-blacks MDRD (S/P/Bld) [Vol rate/Area] 49 mL/min/{1.73_m2} Low >60 [facility] Comment on above: Non- GFR Calc Glucose measurementOrdered B y: Buzz Rainey on 12-07-2024 Glucose [Mass/Vol] 129 mg/dL High 74-106 [facility] Comment on above: Fasting Glucose resu lt greater than or equal to 126 mg/dL suggests DIABETES MELLITUS per A.D.A. criteria. Hematocrit Auto (Bld) [Volum e fraction]Ordered By: Buzz Rainey on 12-07-2024 Hematocrit (Bld) [Volume fraction] 40.6 % 40-54 [facility] Hemoglobin measurementOrdere d By: Buzz Rainey on 12-07-2024 Hemoglobin (Bld) [Mass/Vol] 13.4 g/dL 13.0-16.5 [facility] Immature granulocytes/100 WB C Auto (Bld)Ordered By: Buzz Rainey on 12-07-2024 Immature granulocytes/100 WBC (Bld) 0.200 % 0.0-0.9 [facility] Comment on above: IG% - Immature Granu locytes (promyelocytes, myelocytes and metamyelocytes) > 1% indicates that a LEFT SHIFT is Present. Lymphocytes Auto (Unsp spec) [#/Vol]Ordered By: Buzz Rainey on 12-07-2024 Lymphocytes (Bld) [#/Vol] 1.34 10*3/uL 0.83-4.51 [facility] Lymphocytes/100 WBC Auto (Un sp spec)Ordered By: Buzz Rainey on 12-07-2024 Lymphocytes/100 WBC (Bld) 24.8 % 19-41 [facility] MCV (mean corpuscular volume ) determinationOrdered By: Buzz Rainey on 12-07-2024 MCV (RBC) [Entitic vol] 102.8 fL High 80-94 [facility] Mean corpuscular hemoglobin (MCH) determinationOrdered By: Buzz Rainey on 12-07-2024 MCH (RBC) [Entitic mass] 33.9 pg High 27.0-32.0 [facility] Mean corpuscular hemoglobin concentration (MCHC) determinationOrdered By: Buzz Rainey on 12-07-2024 MCHC (RBC) [Mass/Vol] 33.0 g/dL 32-36 [facility] Mean platelet volume determi nationOrdered By: Buzz Rainey on 12-07-2024 Platelet mean volume (Bld) [Entitic vol] 10.0 fL 6.2-12.0 [facility] Monocyte percentageOrdered B y: Buzz Rainey on 12-07-2024 Monocytes/100 WBC (Bld) 9.4 % 0-10 [facility] Neutrophil percentageOrdered By: Buzz Rainey on 12-07-2024 Neutrophils/100 WBC (Bld) 59.5 % 47-70 [facility] Nucleated red blood cell per centageOrdered By: Buzz Rainey on 12-07-2024 Nucleated RBC/100 WBC (Bld) [Ratio] 0 % 0-5 [facility] Platelet countOrdered By: Alexandra Rainey on 12-07-2024 Platelets (Bld) [#/Vol] 217 10*3/uL 150-450 [facility] Potassium measurementOrdered By: Buzz Rainey on 12-07-2024 Potassium [Moles/Vol] 4.8 mmol/L 3.5-5.1 [facility] RBC Auto (Bld) [#/Vol]Ordere d By: Buzz Rainey on 12-07-2024 RBC (Bld) [#/Vol] 3.95 10*6/uL Low 4.6-6.2 [facility] Serum anion gap measurementO rdered By: Buzz Rainey on 12-07-2024 Anion gap [Moles/Vol] 5 mmol/L 5-15 [facility] Serum or plasma calcium jesenia urement (mass/volume)Ordered By: Buzz Rainey on 12-07-2024 Calcium [Mass/Vol] 9.1 mg/dL 8.5-10.1 [facility] Serum or plasma creatinine m easurement (mass/volume)Ordered By: Buzz Rainey on 12-07-2024 Creatinine [Mass/Vol] 1.46 mg/dL High 0.70-1.30 [facility] Comment on above: The validity of the calculated GFR & GFRAA in patients over 70 years has not been determined. Clinical correlation is essential. Serum or plasma urea nitroge n measurement (mass/volume)Ordered By: Buzz Rainey on 12-07-2024 Urea nitrogen [Mass/Vol] 27 mg/dL High 7-18 [facility] Sodium levelOrdered By: Otilia baileycharilana Rainey on 12-07-2024 Sodium [Moles/Vol] 138 mmol/L 136-145 [facility] White blood cell (WBC) count Ordered By: Buzz Rainey on 12-07-2024 WBC (Bld) [#/Vol] 5.4 10*3/uL 4.4-11.0 [facility] Absolute lymphocyte countOrd ered By: Buzz Rainey on 11-30-2024 Lymphocytes Auto (Unsp spec) [#/Vol] 1.16 10*3/uL 0.83-4.51 [facility] Absolute neutrophil countOrd ered By: Buzz Rainey on 11-30-2024 Neutrophils (Bld) [#/Vol] 2.8 10*3/uL 2.0-7.7 [facility] Automated lymphocyte count a s percentage of total leukocytesOrdered By: Buzz Rainey on 11-30-2024 Lymphocytes/100 WBC Auto (Unsp spec) 23.3 % 19-41 [facility] Basophil percentageOrdered B y: Buzz Rainey on 11-30-2024 Basophils/100 WBC (Bld) 0.6 % 0-1 [facility] Blood urea nitrogen (BUN)/cr eatinine ratioOrdered By: yumikofarmingtonestrella De La Pazlana on 11-30-2024 Urea nitrogen/Creatinine [Mass ratio] 21.4 mg/mg High 10-20 [facility] Carbon dioxide measurementOr dered By: yumikofarmingtonestrella Rainey on 11-30-2024 CO2 [Moles/Vol] 28.0 mmol/L 21.0-32.0 [facility] Cardiology Visit Reporton Cardiology Visit Report [facility] [place] [address] OFFICE VISIT Date of Service: 11/30/24 MR#: [id number] Acct: [id number] Name: FLEX KLINE Rep #: [id number] : 1940 Provider: Dr. 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 Normal [facility] Chloride measurementOrdered By: Buzz Rainey on 11-30-2024 Chloride [Moles/Vol] 105 mmol/L 98-107 [facility] Eosinophil percentageOrdered By: Buzz Rainey on 11-30-2024 Eosinophils/100 WBC (Bld) 6.6 % High 0-5 [facility] Erythrocyte distribution wid th (RBC) [Ratio]Ordered By: Buzz Rainey on 11-30-2024 Erythrocyte distribution width (RBC) [Entitic vol] 46.9 fL High 35.1-43.9 [facility] Erythrocyte distribution wid th ratioOrdered By: Buzz Rainey on 11-30-2024 Erythrocyte distribution width (RBC) [Ratio] 12.4 % 11.6-14.6 [facility] Erythrocyte distribution wid th standard deviationOrdered By: Buzz Rainey on 11-30-2024 Erythrocyte distribution width (RBC) [Ratio] 46.9 fl High 35.1-43.9 [facility] Estimated glomerular filtrat ion rate (GFR) AmericanOrdered By: Buzz Rainey on 11-30-2024 Estimated GFR (MDRD) Amer 62 mL/min >60 [facility] Comment on above: GFR Calc Glomerular filtration rate ( GFR) estimationOrdered By: Buzz Rainey on 11-30-2024 Estimated GFR (MDRD) Non-Af Amer 52 mL/min Low >60 [facility] Comment on above: Non- GFR Calc GFR/1.73 sq M.predicted among non-blacks MDRD (S/P/Bld) [Vol rate/Area] 52 mL/min/{1.73_m2} Low >60 [facility] Comment on above: Non- GFR Calc Glucose measurementOrdered B y: Buzz Rainey on 11-30-2024 Glucose [Mass/Vol] 119 mg/dL High 74-106 [facility] Comment on above: Fasting Glucose resu lt from 100 to 125 mg/dL suggests IMPAIRED HOMEOSTASIS per A.D.A. criteria. Hematocrit Auto (Bld) [Volum e fraction]Ordered By: Buzz Rainey on 11-30-2024 Hematocrit (Bld) [Volume fraction] 40.2 % 40-54 [facility] Hemoglobin measurementOrdere d By: Buzz Rainey on 11-30-2024 Hemoglobin (Bld) [Mass/Vol] 13.2 g/dL 13.0-16.5 [facility] Immature granulocytes/100 WB C Auto (Bld)Ordered By: Buzz Rainey on 11-30-2024 Immature granulocytes/100 WBC (Bld) 0.400 % 0.0-0.9 [facility] Comment on above: IG% - Immature Granu locytes (promyelocytes, myelocytes and metamyelocytes) > 1% indicates that a LEFT SHIFT is Present. Lymphocytes Auto (Unsp spec) [#/Vol]Ordered By: Buzz Rainey on 11-30-2024 Lymphocytes (Bld) [#/Vol] 1.16 10*3/uL 0.83-4.51 [facility] Lymphocytes/100 WBC Auto (Un sp spec)Ordered By: Buzz Rainey on 11-30-2024 Lymphocytes/100 WBC (Bld) 23.3 % 19-41 [facility] MCV (mean corpuscular volume ) determinationOrdered By: Buzz Rainey on 11-30-2024 MCV (RBC) [Entitic vol] 103.1 fL High 80-94 [facility] Mean corpuscular hemoglobin (MCH) determinationOrdered By: Buzz Rainey on 11-30-2024 MCH (RBC) [Entitic mass] 33.8 pg High 27.0-32.0 [facility] Mean corpuscular hemoglobin concentration (MCHC) determinationOrdered By: Buzz Rainey on 11-30-2024 MCHC (RBC) [Mass/Vol] 32.8 g/dL 32-36 [facility] Mean platelet volume determi nationOrdered By: Buzz Rainey on 11-30-2024 Platelet mean volume (Bld) [Entitic vol] 10.2 fL 6.2-12.0 [facility] Monocyte percentageOrdered B y: Buzz Rainey on 11-30-2024 Monocytes/100 WBC (Bld) 11.9 % High 0-10 [facility] Neutrophil percentageOrdered By: Otiliafarmingtonestrella Rainey on 11-30-2024 Neutrophils/100 WBC (Bld) 57.2 % 47-70 [facility] Nucleated red blood cell per centageOrdered By: Buzz Rainey on 11-30-2024 Nucleated RBC/100 WBC (Bld) [Ratio] 0 % 0-5 [facility] Platelet countOrdered By: Alexandra Rainey on 11-30-2024 Platelets (Bld) [#/Vol] 212 10*3/uL 150-450 [facility] Potassium measurementOrdered By: Buzz Rainey on 11-30-2024 Potassium [Moles/Vol] 4.4 mmol/L 3.5-5.1 [facility] RBC Auto (Bld) [#/Vol]Ordere d By: Buzz Rainey on 11-30-2024 RBC (Bld) [#/Vol] 3.90 10*6/uL Low 4.6-6.2 [facility] Serum anion gap measurementO rdered By: Buzz Rainey on 11-30-2024 Anion gap [Moles/Vol] 6 mmol/L 5-15 [facility] Serum or plasma calcium jesenia urement (mass/volume)Ordered By: Buzz Rainey on 11-30-2024 Calcium [Mass/Vol] 8.8 mg/dL 8.5-10.1 [facility] Serum or plasma creatinine m easurement (mass/volume)Ordered By: Buzz Rainey on 11-30-2024 Creatinine [Mass/Vol] 1.40 mg/dL High 0.70-1.30 [facility] Comment on above: The validity of the calculated GFR & GFRAA in patients over 70 years has not been determined. Clinical correlation is essential. Serum or plasma urea nitroge n measurement (mass/volume)Ordered By: Buzz Rainey on 11-30-2024 Urea nitrogen [Mass/Vol] 30 mg/dL High 7-18 [facility] Sodium levelOrdered By: Otilia marrlana Redd on 11-30-2024 Sodium [Moles/Vol] 139 mmol/L 136-145 [facility] White blood cell (WBC) count Ordered By: Buzz Rainey on 11-30-2024 WBC (Bld) [#/Vol] 5.0 10*3/uL 4.4-11.0 [facility] Absolute neutrophil countOrd ered By: Buzz Rainey on 11-23-2024 Neutrophils (Bld) [#/Vol] 3.4 10*3/uL 2.0-7.7 [facility] Basophil percentageOrdered B y: Buzz Rainey on 11-23-2024 Basophils/100 WBC (Bld) 0.5 % 0-1 [facility] Blood urea nitrogen (BUN)/cr eatinine ratioOrdered By: Buzz Rainey on 11-23-2024 Urea nitrogen/Creatinine [Mass ratio] 19.8 mg/mg 10-20 [facility] Carbon dioxide measurementOr dered By: Buzz Rainey on 11-23-2024 CO2 [Moles/Vol] 28.0 mmol/L 21.0-32.0 [facility] Chloride measurementOrdered By: tamanna Rainey on 11-23-2024 Chloride [Moles/Vol] 104 mmol/L 98-107 [facility] Eosinophil percentageOrdered By: Buzz Rainey on 11-23-2024 Eosinophils/100 WBC (Bld) 6.0 % High 0-5 [facility] Erythrocyte distribution wid th (RBC) [Ratio]Ordered By: [facility] Rain[facility] on 11-23-2024 Erythrocyte distribution width (RBC) [Entitic vol] 43.7 fL 35.1-43.9 [facility] Erythrocyte distribution wid th ratioOrdered By: yumikofarmingtonestrella Rainey on 11-23-2024 Erythrocyte distribution width (RBC) [Ratio] 11.9 % 11.6-14.6 [facility] Estimated glomerular filtrat ion rate (GFR) AmericanOrdered By: Buzz Rainey on 11-23-2024 Estimated GFR (MDRD) Amer 67 mL/min >60 [facility] Comment on above: GFR Calc Glomerular filtration rate ( GFR) estimationOrdered By: Buzz Rainey on 11-23-2024 Estimated GFR (MDRD) Non-Af Amer 56 mL/min Low >60 [facility] Comment on above: Non- GFR Calc Glucose measurementOrdered B y: Buzz Rainey on 11-23-2024 Glucose [Mass/Vol] 119 mg/dL High 74-106 [facility] Comment on above: Fasting Glucose resu lt from 100 to 125 mg/dL suggests IMPAIRED HOMEOSTASIS per A.D.A. criteria. Hematocrit Auto (Bld) [Volum e fraction]Ordered By: Buzz Rainey on 11-23-2024 Hematocrit (Bld) [Volume fraction] 40.4 % 40-54 [facility] Hemoglobin measurementOrdere d By: Buzz Rainey on 11-23-2024 Hemoglobin (Bld) [Mass/Vol] 13.8 g/dL 13.0-16.5 [facility] Immature granulocytes/100 WB C Auto (Bld)Ordered By: Buzz Rainey on 11-23-2024 Immature granulocytes/100 WBC (Bld) 0.400 % 0.0-0.9 [facility] Comment on above: IG% - Immature Granu locytes (promyelocytes, myelocytes and metamyelocytes) > 1% indicates that a LEFT SHIFT is Present. Lymphocytes Auto (Unsp spec) [#/Vol]Ordered By: Buzz Rainey on 11-23-2024 Lymphocytes (Bld) [#/Vol] 1.22 10*3/uL 0.83-4.51 [facility] Lymphocytes/100 WBC Auto (Un sp spec)Ordered By: Buzz Rainey on 11-23-2024 Lymphocytes/100 WBC (Bld) 21.4 % 19-41 [facility] MCV (mean corpuscular volume ) determinationOrdered By: Buzz Rainey on 11-23-2024 MCV (RBC) [Entitic vol] 99.5 fL High 80-94 [facility] Mean corpuscular hemoglobin (MCH) determinationOrdered By: Buzz Rainey on 11-23-2024 MCH (RBC) [Entitic mass] 34.0 pg High 27.0-32.0 [facility] Mean corpuscular hemoglobin concentration (MCHC) determinationOrdered By: Buzz Rainey on 11-23-2024 MCHC (RBC) [Mass/Vol] 34.2 g/dL 32-36 [facility] Mean platelet volume determi nationOrdered By: Buzz Rainey on 11-23-2024 Platelet mean volume (Bld) [Entitic vol] 10.2 fL 6.2-12.0 [facility] Monocyte percentageOrdered B y: Buzz Rainey on 11-23-2024 Monocytes/100 WBC (Bld) 12.4 % High 0-10 [facility] Neutrophil percentageOrdered By: Buzz Rainey on 11-23-2024 Neutrophils/100 WBC (Bld) 59.3 % 47-70 [facility] Nucleated red blood cell per centageOrdered By: Buzz Rainey on 11-23-2024 Nucleated RBC/100 WBC (Bld) [Ratio] 0 % 0-5 [facility] Platelet countOrdered By: Alexandra Rainey on 11-23-2024 Platelets (Bld) [#/Vol] 219 10*3/uL 150-450 [facility] Potassium measurementOrdered By: Buzz Rainey on 11-23-2024 Potassium [Moles/Vol] 4.7 mmol/L 3.5-5.1 [facility] RBC Auto (Bld) [#/Vol]Ordere d By: Buzz Rainey on 11-23-2024 RBC (Bld) [#/Vol] 4.06 10*6/uL Low 4.6-6.2 [facility] Serum anion gap measurementO rdered By: Buzz Rainey on 11-23-2024 Anion gap [Moles/Vol] 5 mmol/L 5-15 [facility] Serum or plasma calcium jesenia urement (mass/volume)Ordered By: Buzz Rainey on 11-23-2024 Calcium [Mass/Vol] 9.2 mg/dL 8.5-10.1 [facility] Serum or plasma creatinine m easurement (mass/volume)Ordered By: Buzz Rainey on 11-23-2024 Creatinine [Mass/Vol] 1.31 mg/dL High 0.70-1.30 [facility] Comment on above: The validity of the calculated GFR & GFRAA in patients over 70 years has not been determined. Clinical correlation is essential. Serum or plasma urea nitroge n measurement (mass/volume)Ordered By: Buzz Rainey on 11-23-2024 Urea nitrogen [Mass/Vol] 26 mg/dL High 7-18 [facility] Sodium levelOrdered By: Otilia arthur Redd on 11-23-2024 Sodium [Moles/Vol] 136 mmol/L 136-145 [facility] White blood cell (WBC) count Ordered By: Buzz Rainey on 11-23-2024 WBC (Bld) [#/Vol] 5.7 10*3/uL 4.4-11.0 [facility] Absolute neutrophil countOrd ered By: Buzz Rainey on 11-16-2024 Neutrophils (Bld) [#/Vol] 3.9 10*3/uL 2.0-7.7 [facility] Basophil percentageOrdered B y: Buzz Rainey on 11-16-2024 Basophils/100 WBC (Bld) 0.7 % 0-1 [facility] Blood urea nitrogen (BUN)/cr eatinine ratioOrdered By: Buzz Rainey on 11-16-2024 Urea nitrogen/Creatinine [Mass ratio] 18.8 mg/mg 10-20 [facility] Carbon dioxide measurementOr dered By: Buzz Rainey on 11-16-2024 CO2 [Moles/Vol] 25.0 mmol/L 21.0-32.0 [facility] Chloride measurementOrdered By: Buzz Rainey on 11-16-2024 Chloride [Moles/Vol] 105 mmol/L 98-107 [facility] Eosinophil percentageOrdered By: Buzz Rainey on 11-16-2024 Eosinophils/100 WBC (Bld) 6.1 % High 0-5 [facility] Erythrocyte distribution wid th (RBC) [Ratio]Ordered By: Buzz Rainey on 11-16-2024 Erythrocyte distribution width (RBC) [Entitic vol] 43.8 fL 35.1-43.9 [facility] Erythrocyte distribution wid th ratioOrdered By: Buzz Rainey on 11-16-2024 Erythrocyte distribution width (RBC) [Ratio] 11.9 % 11.6-14.6 [facility] Estimated glomerular filtrat ion rate (GFR) AmericanOrdered By: Buzz Rainey on 11-16-2024 Estimated GFR (MDRD) Amer 56 mL/min Low >60 [facility] Comment on above: GFR Calc Glomerular filtration rate ( GFR) estimationOrdered By: Buzz Rainey on 11-16-2024 Estimated GFR (MDRD) Non-Af Amer 46 mL/min Low >60 [facility] Comment on above: Non- GFR Calc Glucose measurementOrdered B y: Codyestrella Rainey on 11-16-2024 Glucose [Mass/Vol] 130 mg/dL High 74-106 [facility] Comment on above: Fasting Glucose resu lt greater than or equal to 126 mg/dL suggests DIABETES MELLITUS per A.D.A. criteria. Hematocrit Auto (Bld) [Volum e fraction]Ordered By: Buzz Rainey on 11-16-2024 Hematocrit (Bld) [Volume fraction] 37.6 % Low 40-54 [facility] Hemoglobin measurementOrdere d By: Buzz Rainey on 11-16-2024 Hemoglobin (Bld) [Mass/Vol] 12.7 g/dL Low 13.0-16.5 [facility] Immature granulocytes/100 WB C Auto (Bld)Ordered By: Buzz Rainey on 11-16-2024 Immature granulocytes/100 WBC (Bld) 0.200 % 0.0-0.9 [facility] Comment on above: IG% - Immature Granu locytes (promyelocytes, myelocytes and metamyelocytes) > 1% indicates that a LEFT SHIFT is Present. Lymphocytes Auto (Unsp spec) [#/Vol]Ordered By: Buzz Rainey on 11-16-2024 Lymphocytes (Bld) [#/Vol] 1.20 10*3/uL 0.83-4.51 [facility] Lymphocytes/100 WBC Auto (Un sp spec)Ordered By: Buzz Rainey on 11-16-2024 Lymphocytes/100 WBC (Bld) 19.8 % 19-41 [facility] MCV (mean corpuscular volume ) determinationOrdered By: Buzz Rainey on 11-16-2024 MCV (RBC) [Entitic vol] 100.5 fL High 80-94 [facility] Mean corpuscular hemoglobin (MCH) determinationOrdered By: Buzz Rainey on 11-16-2024 MCH (RBC) [Entitic mass] 34.0 pg High 27.0-32.0 [facility] Mean corpuscular hemoglobin concentration (MCHC) determinationOrdered By: Buzz Rainey on 11-16-2024 MCHC (RBC) [Mass/Vol] 33.8 g/dL 32-36 [facility] Mean platelet volume determi nationOrdered By: Efyumikoongbe Redd on 11-16-2024 Platelet mean volume (Bld) [Entitic vol] 10.0 fL 6.2-12.0 [facility] Monocyte percentageOrdered B y: Efyumikoongestrella Rainey on 11-16-2024 Monocytes/100 WBC (Bld) 9.1 % 0-10 [facility] Neutrophil percentageOrdered By: Buzz Rainey on 11-16-2024 Neutrophils/100 WBC (Bld) 64.1 % 47-70 [facility] Nucleated red blood cell per centageOrdered By: Otiliaongbe Rahe on 11-16-2024 Nucleated RBC/100 WBC (Bld) [Ratio] 0 % 0-5 [facility] Platelet countOrdered By: Ef yumikoongestrella Rainey on 11-16-2024 Platelets (Bld) [#/Vol] 210 10*3/uL 150-450 [facility] Potassium measurementOrdered By: Buzz Rainey on 11-16-2024 Potassium [Moles/Vol] 4.9 mmol/L 3.5-5.1 [facility] Comment on above: Slight Hemolysis, Re sult may be falsely increased. RBC Auto (Bld) [#/Vol]Ordere d By: Buzz Rainey on 11-16-2024 RBC (Bld) [#/Vol] 3.74 10*6/uL Low 4.6-6.2 [facility] Serum anion gap measurementO rdered By: Buzz Rainey on 11-16-2024 Anion gap [Moles/Vol] 5 mmol/L 5-15 [facility] Serum or plasma calcium jesenia urement (mass/volume)Ordered By: Buzz Rainey on 11-16-2024 Calcium [Mass/Vol] 9.0 mg/dL 8.5-10.1 [facility] Serum or plasma creatinine m easurement (mass/volume)Ordered By: Buzz Rainey on 11-16-2024 Creatinine [Mass/Vol] 1.54 mg/dL High 0.70-1.30 [facility] Comment on above: The validity of the calculated GFR & GFRAA in patients over 70 years has not been determined. Clinical correlation is essential. Serum or plasma urea nitroge n measurement (mass/volume)Ordered By: Buzz Rainey on 11-16-2024 Urea nitrogen [Mass/Vol] 29 mg/dL High 7-18 [facility] Sodium levelOrdered By: Otilia baileyjovan Redd on 11-16-2024 Sodium [Moles/Vol] 135 mmol/L Low 136-145 [facility] White blood cell (WBC) count Ordered By: Buzz Rainey on 11-16-2024 WBC (Bld) [#/Vol] 6.1 10*3/uL 4.4-11.0 [facility] Absolute neutrophil countOrd ered By: Buzz Rainey on 11-09-2024 Neutrophils (Bld) [#/Vol] 3.1 10*3/uL 2.0-7.7 [facility] Basophil percentageOrdered B y: Buzz Rainey on 11-09-2024 Basophils/100 WBC (Bld) 0.8 % 0-1 [facility] Blood urea nitrogen (BUN)/cr eatinine ratioOrdered By: Buzz Rainey on 11-09-2024 Urea nitrogen/Creatinine [Mass ratio] 21.8 mg/mg High 10-20 [facility] Carbon dioxide measurementOr dered By: Buzz Rainye on 11-09-2024 CO2 [Moles/Vol] 27.0 mmol/L 21.0-32.0 [facility] Chloride measurementOrdered By: Buzz Rainey on 11-09-2024 Chloride [Moles/Vol] 105 mmol/L 98-107 [facility] Eosinophil percentageOrdered By: tamanna Rainey on 11-09-2024 Eosinophils/100 WBC (Bld) 9.1 % High 0-5 [facility] Erythrocyte distribution wid th (RBC) [Ratio]Ordered By: tamanna Rainey on 11-09-2024 Erythrocyte distribution width (RBC) [Entitic vol] 43.2 fL 35.1-43.9 [facility] Erythrocyte distribution wid th ratioOrdered By: [facility] on 11-09-2024 Erythrocyte distribution width (RBC) [Ratio] 11.8 % 11.6-14.6 [facility] Estimated glomerular filtrat ion rate (GFR) AmericanOrdered By: tamanna Rainey on 11-09-2024 Estimated GFR (MDRD) Amer 72 mL/min >60 [facility] Comment on above: GFR Calc Glomerular filtration rate ( GFR) estimationOrdered By: Buzz Rainey on 11-09-2024 Estimated GFR (MDRD) Non-Af Amer 59 mL/min Low >60 [facility] Comment on above: Non- GFR Calc Glucose measurementOrdered B y: Buzz Rainey on 11-09-2024 Glucose [Mass/Vol] 145 mg/dL High 74-106 [facility] Comment on above: Fasting Glucose resu lt greater than or equal to 126 mg/dL suggests DIABETES MELLITUS per A.D.A. criteria. Hematocrit Auto (Bld) [Volum e fraction]Ordered By: Buzz Rainey on 11-09-2024 Hematocrit (Bld) [Volume fraction] 38.3 % Low 40-54 [facility] Hemoglobin measurementOrdere d By: tamanna Rainey on 11-09-2024 Hemoglobin (Bld) [Mass/Vol] 12.9 g/dL Low 13.0-16.5 [facility] Immature granulocytes/100 WB C Auto (Bld)Ordered By: tamanna Rainey on 11-09-2024 Immature granulocytes/100 WBC (Bld) 0.400 % 0.0-0.9 [facility] Comment on above: IG% - Immature Granu locytes (promyelocytes, myelocytes and metamyelocytes) > 1% indicates that a LEFT SHIFT is Present. Lymphocytes Auto (Unsp spec) [#/Vol]Ordered By: Buzz Rainey on 11-09-2024 Lymphocytes (Bld) [#/Vol] 1.10 10*3/uL 0.83-4.51 [facility] Lymphocytes/100 WBC Auto (Un sp spec)Ordered By: Buzz Rainey on 11-09-2024 Lymphocytes/100 WBC (Bld) 21.3 % 19-41 [facility] MCV (mean corpuscular volume ) determinationOrdered By: Buzz Rainey on 11-09-2024 MCV (RBC) [Entitic vol] 100.3 fL High 80-94 [facility] Mean corpuscular hemoglobin (MCH) determinationOrdered By: Buzz Rainey on 11-09-2024 MCH (RBC) [Entitic mass] 33.8 pg High 27.0-32.0 [facility] Mean corpuscular hemoglobin concentration (MCHC) determinationOrdered By: Buzz Rainey on 11-09-2024 MCHC (RBC) [Mass/Vol] 33.7 g/dL 32-36 [facility] Mean platelet volume determi nationOrdered By: Buzz Rainey on 11-09-2024 Platelet mean volume (Bld) [Entitic vol] 10.0 fL 6.2-12.0 [facility] Monocyte percentageOrdered B y: Buzz Rainey on 11-09-2024 Monocytes/100 WBC (Bld) 9.1 % 0-10 [facility] Neutrophil percentageOrdered By: Buzz Rainey on 11-09-2024 Neutrophils/100 WBC (Bld) 59.3 % 47-70 [facility] Nucleated red blood cell per centageOrdered By: Buzz Rainey on 11-09-2024 Nucleated RBC/100 WBC (Bld) [Ratio] 0 % 0-5 [facility] Platelet countOrdered By: Alexandra Rainey on 11-09-2024 Platelets (Bld) [#/Vol] 225 10*3/uL 150-450 [facility] Potassium measurementOrdered By: Buzz Rainey on 11-09-2024 Potassium [Moles/Vol] 4.5 mmol/L 3.5-5.1 [facility] RBC Auto (Bld) [#/Vol]Ordere d By: Buzz Rainey on 11-09-2024 RBC (Bld) [#/Vol] 3.82 10*6/uL Low 4.6-6.2 [facility] Serum anion gap measurementO rdered By: Buzz Rainey on 11-09-2024 Anion gap [Moles/Vol] 4 mmol/L Low 5-15 [facility] Serum or plasma calcium jesenia urement (mass/volume)Ordered By: Buzz Rainey on 11-09-2024 Calcium [Mass/Vol] 8.8 mg/dL 8.5-10.1 [facility] Serum or plasma creatinine m easurement (mass/volume)Ordered By: Buzz Rainey on 11-09-2024 Creatinine [Mass/Vol] 1.24 mg/dL 0.70-1.30 [facility] Comment on above: The validity of the calculated GFR & GFRAA in patients over 70 years has not been determined. Clinical correlation is essential. Serum or plasma urea nitroge n measurement (mass/volume)Ordered By: Buzz Rainey on 11-09-2024 Urea nitrogen [Mass/Vol] 27 mg/dL High 7-18 [facility] Sodium levelOrdered By: Otilia Rainey on 11-09-2024 Sodium [Moles/Vol] 136 mmol/L 136-145 [facility] White blood cell (WBC) count Ordered By: Buzz Rainey on 11-09-2024 WBC (Bld) [#/Vol] 5.2 10*3/uL 4.4-11.0 [facility] 09-DS-Jckephn DOrdered By: Lana Rainey on 11-03-2024 Vitamin D 25-Hydroxy 37.4 ng/mL [facility] Comment on above: Vitamin D 25(OH) Sta tus Range Deficiency <20 ng/mL (50nmol/L) Insufficiency 20 - 30 ng/mL (50 - 75 nmol/L) Sufficiency 30 - 100 ng/mL (75 - 250 nmol/L) Toxicity >100 ng/mL (>250 nmol/L) Absolute neutrophil countOrd ered By: Buzz Rainey on 11-03-2024 Neutrophils (Bld) [#/Vol] 3.2 10*3/uL 2.0-7.7 [facility] Albumin to globulin ratioOrd ered By: Buzz De La Pazmklana on 11-03-2024 Albumin/Globulin [Mass ratio] 1.0 {ratio} 0.9-2.4 [facility] Basophil percentageOrdered B y: Buzz Rainey on 11-03-2024 Basophils/100 WBC (Bld) 0.4 % 0-1 [facility] Bilirubin, totalOrdered By: Buzz Rainey on 11-03-2024 Bilirubin [Mass/Vol] 0.80 mg/dL 0.20-1.00 [facility] Comment on above: For patients on eltr ombopag therapy, use of Dimension [place] TBIL is not recommended. Blood urea nitrogen (BUN)/cr eatinine ratioOrdered By: Buzz Rainey on 11-03-2024 Urea nitrogen/Creatinine [Mass ratio] 24.5 mg/mg High 10-20 [facility] Carbon dioxide measurementOr dered By: Buzz Rainey on 11-03-2024 CO2 [Moles/Vol] 23.0 mmol/L 21.0-32.0 [facility] Chloride measurementOrdered By: tamanna Rainey on 11-03-2024 Chloride [Moles/Vol] 105 mmol/L 98-107 [facility] Eosinophil percentageOrdered By: tamanna Rainey on 11-03-2024 Eosinophils/100 WBC (Bld) 8.6 % High 0-5 [facility] Erythrocyte distribution wid th (RBC) [Ratio]Ordered By: Buzz Rainey on 11-03-2024 Erythrocyte distribution width (RBC) [Entitic vol] 44.9 fL High 35.1-43.9 [facility] Erythrocyte distribution wid th ratioOrdered By: Buzz Rainey on 11-03-2024 Erythrocyte distribution width (RBC) [Ratio] 12.0 % 11.6-14.6 [facility] Estimated glomerular filtrat ion rate (GFR) AmericanOrdered By: Buzz Rainey on 11-03-2024 Estimated GFR (MDRD) Amer 61 mL/min >60 [facility] Comment on above: GFR Calc Glomerular filtration rate ( GFR) estimationOrdered By: Buzz Rainey on 11-03-2024 Estimated GFR (MDRD) Non-Af Amer 50 mL/min Low >60 [facility] Comment on above: Non- GFR Calc Glucose measurementOrdered B y: Buzz Rainey on 11-03-2024 Glucose [Mass/Vol] 146 mg/dL High 74-106 [facility] Comment on above: Fasting Glucose resu lt greater than or equal to 126 mg/dL suggests DIABETES MELLITUS per A.D.A. criteria. Hematocrit Auto (Bld) [Volum e fraction]Ordered By: Buzz Rainey on 11-03-2024 Hematocrit (Bld) [Volume fraction] 43.0 % 40-54 [facility] Hemoglobin A1c percentageOrd ered By: Buzz Rainey on 11-03-2024 HbA1c (Bld) [Mass fraction] 6.6 % High 3.8-5.6 [facility] Comment on above: Normal < 5.7 % Predi abetic 5.7 - 6.4 % Diabetic >or= 6.5 % Please note range changes. Hemoglobin measurementOrdere d By: Buzz Rainey on 11-03-2024 Hemoglobin (Bld) [Mass/Vol] 14.7 g/dL 13.0-16.5 [facility] High density lipoprotein (HD L) measurementOrdered By: Buzz Rainey on 11-03-2024 Cholesterol in HDL [Mass/Vol] 57 mg/dL >40 [facility] Comment on above: The drugs N-Acetylcy steine and Metamizole may falsely depress this assay. Reference Range HDL <40 mg/dL Low HDL Cholesterol HDL >or= 60 mg/dL High HDL Cholesterol Immature granulocytes/100 WB C Auto (Bld)Ordered By: Buzz Rainey on 11-03-2024 Immature granulocytes/100 WBC (Bld) 0.200 % 0.0-0.9 [facility] Comment on above: IG% - Immature Granu locytes (promyelocytes, myelocytes and metamyelocytes) > 1% indicates that a LEFT SHIFT is Present. Laboratory - Chemistry and C hemistry - challengeOrdered By: Buzz Rainey on 11-03-2024 AST [Catalytic activity/Vol] 41 U/L High 15-37 [facility] Low density lipoprotein (LDL ) cholesterol measurementOrdered By: Buzz Rainey on 11-03-2024 Cholesterol in LDL [Mass/Vol] 97 mg/dL 0-130 [facility] Lymphocytes Auto (Unsp spec) [#/Vol]Ordered By: Buzz Rainey on 11-03-2024 Lymphocytes (Bld) [#/Vol] 0.87 10*3/uL 0.83-4.51 [facility] Lymphocytes/100 WBC Auto (Un sp spec)Ordered By: Buzz Rainey on 11-03-2024 Lymphocytes/100 WBC (Bld) 17.4 % Low 19-41 [facility] MCV (mean corpuscular volume ) determinationOrdered By: Buzz Rainey on 11-03-2024 MCV (RBC) [Entitic vol] 101.2 fL High 80-94 [facility] Magnesium measurementOrdered By: Buzz Rainey 11-03-2024 Magnesium [Mass/Vol] 2.2 mg/dL 1.6-2.6 [facility] Mean corpuscular hemoglobin (MCH) determinationOrdered By: Buzz Rainey on 11-03-2024 MCH (RBC) [Entitic mass] 34.6 pg High 27.0-32.0 [facility] Mean corpuscular hemoglobin concentration (MCHC) determinationOrdered By: Buzz Rainey 11-03-2024 MCHC (RBC) [Mass/Vol] 34.2 g/dL 32-36 [facility] Mean platelet volume determi nationOrdered By: Buzz Rainey on 11-03-2024 Platelet mean volume (Bld) [Entitic vol] 9.9 fL 6.2-12.0 [facility] Monocyte percentageOrdered B y: Buzz Rainey on 11-03-2024 Monocytes/100 WBC (Bld) 10.4 % High 0-10 [facility] Neutrophil percentageOrdered By: Buzz Rainey on 11-03-2024 Neutrophils/100 WBC (Bld) 63.0 % 47-70 [facility] Nucleated red blood cell per centageOrdered By: Buzz Rainey on 11-03-2024 Nucleated RBC/100 WBC (Bld) [Ratio] 0 % 0-5 [facility] Platelet countOrdered By: Alexandra Rainey on 11-03-2024 Platelets (Bld) [#/Vol] 190 10*3/uL 150-450 [facility] Potassium measurementOrdered By: Buzz Rainey on 11-03-2024 Potassium [Moles/Vol] 5.0 mmol/L 3.5-5.1 [facility] RBC Auto (Bld) [#/Vol]Ordere d By: Buzz Rainey on 11-03-2024 RBC (Bld) [#/Vol] 4.25 10*6/uL Low 4.6-6.2 [facility] Serum anion gap measurementO rdered By: Buzz Rainey on 11-03-2024 Anion gap [Moles/Vol] 8 mmol/L 5-15 [facility] Serum globulin measurementOr dered By: Buzz Rainey on 11-03-2024 Globulin (S) [Mass/Vol] 3.8 g/dL 2.2-4.2 [facility] Serum or plasma alanine nix otransferase (ALT) measurementOrdered By: Buzz Rainey on 11-03-2024 ALT [Catalytic activity/Vol] 20 U/L 16-61 [facility] Serum or plasma albumin jesenia urement (mass/volume)Ordered By: Buzz Rainey on 11-03-2024 Albumin [Mass/Vol] 3.7 g/dL 3.2-5.0 [facility] Serum or plasma alkaline radha sphatase measurementOrdered By: Buzz Rainey 11-03-2024 ALP [Catalytic activity/Vol] 77 U/L 45-117 [facility] Serum or plasma calcium jesenia urement (mass/volume)Ordered By: Buzz Rainey on 11-03-2024 Calcium [Mass/Vol] 9.3 mg/dL 8.5-10.1 [facility] Serum or plasma cholesterol measurement (mass/volume)Ordered By: Buzz Rainey on 11-03-2024 Cholesterol [Mass/Vol] 175 mg/dL <200 [facility] Comment on above: <200 mg/dL Desirable 200-240 mg/dL Borderline >240 mg/dL High Risk Serum or plasma creatinine m easurement (mass/volume)Ordered By: Buzz Rainey on 11-03-2024 Creatinine [Mass/Vol] 1.43 mg/dL High 0.70-1.30 [facility] Comment on above: The validity of the calculated GFR & GFRAA in patients over 70 years has not been determined. Clinical correlation is essential. Serum or plasma urea nitroge n measurement (mass/volume)Ordered By: Buzz Rainey on 11-03-2024 Urea nitrogen [Mass/Vol] 35 mg/dL High 7-18 [facility] Sodium levelOrdered By: Otilia Rainey on 11-03-2024 Sodium [Moles/Vol] 136 mmol/L 136-145 [facility] Total proteinOrdered By: Franklin Rianey on 11-03-2024 Protein [Mass/Vol] 7.5 g/dL 6.4-8.2 [facility] Triglycerides measurementOrd ered By: Buzz Rainey on 11-03-2024 Triglyceride [Mass/Vol] 105 mg/dL <199 [facility] Comment on above: The drugs N-Acetylcy steine and Metamizole may falsely depress this assay.Serum Triglycerides Reference Interval Normal <150 mg/dL Borderline high 150 - 199 mg/dL High 200 - 499 mg/dL Very High > or = 500 mg/dL Very low density lipoprotein (VLDL) cholesterol measurementOrdered By: Buzz Rainey on 11-03-2024 VLDL Cholesterol 21 mg/dL 5-40 [facility] White blood cell (WBC) count Ordered By: Buzz Rainey on 11-03-2024 WBC (Bld) [#/Vol] 5.0 10*3/uL 4.4-11.0 [facility] Bedside Glucoseon 11-01-2024 FINGERSTICK GLU 163 mg/dL [address] Comment on above: Result Comment: ARNOLD GEMENT OF PATIENT CARE PER NURSING PROTOCOL Performed By: #### L 501.080 ####[facility] [address] [place], [address] FINGERSTICK GLU 212 mg/dL [address] Comment on above: Result Comment: ARNOLD GEMENT OF PATIENT CARE PER NURSING PROTOCOL Performed By: #### L 501.080 #### [facility] [address] [place], [address] FINGERSTICK GLU 125 mg/dL [address] Comment on above: Result Comment: ARNOLD GEMENT OF PATIENT CARE PER NURSING PROTOCOL Performed By: #### L 501.080 #### [facility] [address] [place], [address] [facility] deOrdered By: Sung Rhodes on 11-01-2024 Bedside Glucose (Misc Panel) 163 mg/dL [address] Comment on above: MANAGEMENT OF PATIEN T CARE PER NURSING PROTOCOL Bedside Glucoseon 10-31-2024 FINGERSTICK GLU 125 mg/dL High [address] [place] [address] Comment on above: Result Comment: ARNOLD GEMENT OF PATIENT CARE PER NURSING PROTOCOL Performed By: #### L 501.080 #### [facility] [address] [place], [address] FINGERSTICK GLU 136 mg/dL [address] Comment on above: Result Comment: ARNOLD GEMENT OF PATIENT CARE PER NURSING PROTOCOL Performed By: #### L 501.080 #### [facility] [address] [place], [address] FINGERSTICK GLU 207 mg/dL High [address] [place] [address] Comment on above: Result Comment: ARNOLD GEMENT OF PATIENT CARE PER NURSING PROTOCOL Performed By: #### L 501.080 ####[facility] [address] [place], [address] FINGERSTICK GLU 297 mg/dL High [address] [place] [address] Comment on above: Result Comment: ARNOLD GEMENT OF PATIENT CARE PER NURSING PROTOCOL Performed By: #### L 501.080 ####[facility] [address] [place], [address] Bedside Glucoseon 10-30-2024 FINGERSTICK GLU 216 mg/dL High [address] [place] [address] Comment on above: Result Comment: ARNOLD GEMENT OF PATIENT CARE PER NURSING PROTOCOL Performed By: #### L 501.080 ####[facility] [address] [place], [address] FINGERSTICK GLU 256 mg/dL High [address] [place] [address] Comment on above: Result Comment: ARNOLD GEMENT OF PATIENT CARE PER NURSING PROTOCOL Performed By: #### L 501.080 ####[facility] [address] [place], [address] FINGERSTICK GLU 197 mg/dL [address] Comment on above: Result Comment: ARNOLD GEMENT OF PATIENT CARE PER NURSING PROTOCOL Performed By: #### L 501.080 ####[facility] [address] [place], [address] FINGERSTICK GLU 177 mg/dL High [address] [place] [address] Comment on above: Result Comment: ARNOLD GEMENT OF PATIENT CARE PER NURSING PROTOCOL Performed By: #### L 501.080 #### [facility] [address] [place], [address] FINGERSTICK GLU 188 mg/dL High [address] [place] [address] Comment on above: Result Comment: ARNOLD GEMENT OF PATIENT CARE PER NURSING PROTOCOL Performed By: #### L 501.080 #### [facility] [address] [place], [address] Absolute neutrophil countOrd ered By: Roderick Laurent on 10-29-2024 Neutrophils (Bld) [#/Vol] 3.8 10*3/uL 2.0-7.7 [facility] Albumin to globulin ratioOrd ered By: Roderick Mehran on 10-29-2024 Albumin/Globulin [Mass ratio] 1.2 {ratio} 0.9-2.4 [facility] Basophil percentageOrdered B y: Roderick Navarrolaurenceko on 10-29-2024 Basophils/100 WBC (Bld) 0.7 % 0-1 [facility] Bedside Glucoseon 10-29-2024 FINGERSTICK GLU 255 mg/dL High 74-106 [facility] Comment on above: Result Comment: ARNOLD GEMENT OF PATIENT CARE PER NURSING PROTOCOL Performed By: #### L 501.080 #### [facility] [address] [place], [address] FINGERSTICK GLU 214 mg/dL High 74-106 [facility] Comment on above: Result Comment: ARNOLD GEMENT OF PATIENT CARE PER NURSING PROTOCOL Performed By: #### L 501.080 #### [facility] [address] [place], [address] FINGERSTICK GLU 189 mg/dL High 74-106 [facility] Comment on above: Result Comment: ARNOLD GEMENT OF PATIENT CARE PER NURSING PROTOCOL Performed By: #### L 501.080 ####[facility] [address] [place], [address] FINGERSTICK GLU 161 mg/dL High 74-106 [facility] Comment on above: Result Comment: ARNOLD GEMENT OF PATIENT CARE PER NURSING PROTOCOL Performed By: #### L 501.080 #### [facility] [address] [place], [address] FINGERSTICK GLU 198 mg/dL High 74-106 [facility] Comment on above: Result Comment: ARNOLD GEMENT OF PATIENT CARE PER NURSING PROTOCOL Performed By: #### L 501.080 #### [facility] [address] [place], [address] FINGERSTICK GLU 328 mg/dL High 74-106 [facility] Comment on above: Result Comment: ARNOLD GEMENT OF PATIENT CARE PER NURSING PROTOCOL Performed By: #### L 501.080 #### [facility] [address] [place], [address] Bilirubin, totalOrdered By: Roderick Laurent on 10-29-2024 Bilirubin [Mass/Vol] 0.60 mg/dL 0.20-1.00 [facility] Comment on above: For patients on eltr ombopag therapy, use of Dimension [place] TBIL is not recommended. Blood urea nitrogen (BUN)/cr eatinine ratioOrdered By: Roderick Laurent on 10-29-2024 Urea nitrogen/Creatinine [Mass ratio] 23.6 mg/mg High 10-20 [facility] CBC W/Diff, Automatedon 12-0 Absolute Lymph 0.93 X10 3/uL Normal 0.83-4.51 [facility] Comment on above: Performed By: #### L [id number], L100.0100 ####[facility] [address] [place], [address] Absolute Neut 3.8 X10 3/uL Normal 2.0-7.7 [facility] Comment on above: Performed By: #### L [id number], L100.0100 ####[facility] [address] [place], [address] Basophils/100 WBC (Bld) 0.7 % Normal 0-1 [facility] Comment on above: Performed By: #### L [id number], L100.0100 ####[facility] [address] [place], [address] Eosinophils/100 WBC (Bld) 3.5 % Normal 0-5 [facility] Comment on above: Performed By: #### L [id number], L100.0100 ####[facility] [address] [place], [address] Erythrocyte distribution width (RBC) [Ratio] 11.9 % Normal 11.6-14.6 [facility] Comment on above: Performed By: #### L [id number], L100.0100 ####[facility] [address] [place], [address] Hematocrit (Bld) [Volume fraction] 40.5 % Normal 40-54 [facility] Comment on above: Performed By: #### L [id number], L100.0100 ####[facility] [address] [place], [address] Hemoglobin (Bld) [Mass/Vol] 13.6 g/dL Normal 13.0-16.5 [facility] Comment on above: Performed By: #### L [id number], L100.0100 ####[facility] [address] [place], [address] IG% 0.200 Normal 0.0-0.9 [facility] Comment on above: Result Comment: IG% - Immature Granulocytes (promyelocytes, myelocytes and metamyelocytes) > 1% indicates that a LEFT SHIFT is Present. Performed By: #### L 500.4050, L100.0100 ####[facility] [address] [place], [address] Lymphocytes/100 WBC (Bld) 16.2 % Low 19-41 [facility] Comment on above: Performed By: #### L 500.4050, L100.0100 ####[facility] [address] [place], [address] MCH (RBC) [Entitic mass] 33.8 pg High 27.0-32.0 [facility] Comment on above: Performed By: #### L 500.4050, L100.0100 ####[facility] [address] [place], [address] MCHC (RBC) [Mass/Vol] 33.6 g/dL Normal 32-36 [facility] Comment on above: Performed By: #### L 500.4050, L100.0100 ####[facility] [address] [place], [address] MCV (RBC) [Entitic vol] 100.7 fL High 80-94 [facility] Comment on above: Performed By: #### L 500.4050, L100.0100 ####[facility] [address] [place], [address] Monocytes/100 WBC (Bld) 12.5 % High 0-10 [facility] Comment on above: Performed By: #### L 500.4050, L100.0100 ####[facility] [address] [place], [address] Neutrophils/100 WBC (Bld) 66.9 % Normal 47-70 [facility] Comment on above: Performed By: #### L 500.4050, L100.0100 ####[facility] [address] [place], [address] Nucleated RBC (Bld) [#/Vol] 0 10*3/uL Normal 0-5 [facility] Comment on above: Performed By: #### L 500.4050, L100.0100 ####[facility] [address] [place], [address] Platelet mean volume (Bld) [Entitic vol] 9.2 fL Normal 6.2-12.0 [facility] Comment on above: Performed By: #### L 500.4050, L100.0100 ####[facility] [address] [place], [address] Platelets (Bld) [#/Vol] 230 10*3/uL Normal 150-450 [facility] Comment on above: Performed By: #### L 500.4050, L100.0100 ####[facility] [address] [place], [address] RBC (Bld) [#/Vol] 4.02 10*6/uL Low 4.6-6.2 [facility] Comment on above: Performed By: #### L 500.4050, L100.0100 ####[facility] [address] [place], [address] RDW SD 44.6 fl High 35.1-43.9 [facility] Comment on above: Performed By: #### L 500.4050, L100.0100 ####[facility] [address] [place], [address] WBC (Bld) [#/Vol] 5.7 10*3/uL Normal 4.4-11.0 [facility] Comment on above: Performed By: #### L 500.4050, L100.0100 ####[facility] [address] [place], [address] Carbon dioxide measurementOr dered By: Roderick Laurent on 10-29-2024 CO2 [Moles/Vol] 26.0 mmol/L 21.0-32.0 [facility] Chloride measurementOrdered By: Roderick Laurent on 10-29-2024 Chloride [Moles/Vol] 105 mmol/L 98-107 [facility] Comprehensive Metabolic Prof ilon 10-29-2024 Albumin [Mass/Vol] 3.5 g/dL Normal 3.2-5.0 [facility] Comment on above: Performed By: #### L 501.080 #### [facility] [address] [place], [address] Albumin/Globulin [Mass ratio] 1.2 {ratio} Normal 0.9-2.4 [facility] Comment on above: Performed By: #### L 501.080 #### [facility] [address] [place], [address] ALK P 64 U/L Normal 45-117 [facility] Comment on above: Performed By: #### L 501.080 #### [facility] [address] [place], [address] ALT [Catalytic activity/Vol] 15 U/L Low 16-61 [facility] Comment on above: Performed By: #### L 501.080 #### [facility] [address] [place], [address] AST [Catalytic activity/Vol] 22 U/L Normal 15-37 [facility] Comment on above: Performed By: #### L 501.080 #### [facility] [address] [place], [address] Bilirubin [Mass/Vol] 0.60 mg/dL Normal 0.20-1.00 [facility] Comment on above: Result Comment: For patients on eltrombopag therapy, use of Dimension [place] TBIL is not recommended. Performed By: #### L 501.080 #### [facility] [address] [place], [address] BUN/CRE 23.6 RATIO High 10-20 [facility] Comment on above: Performed By: #### L 501.080 #### [facility] [address] [place], [address] CA,Total 8.9 mg/dL Normal 8.5-10.1 [facility] Comment on above: Performed By: #### L 501.080 #### [facility] [address] [place], [address] Chloride [Moles/Vol] 105 mmol/L Normal 98-107 [facility] Comment on above: Performed By: #### L 501.080 #### [facility] [address] [place], [address] CO2 [Moles/Vol] 26.0 mmol/L Normal 21.0-32.0 [facility] Comment on above: Performed By: #### L 501.080 #### [facility] [address] [place], [address] Creatinine [Mass/Vol] 1.57 mg/dL High 0.70-1.30 [facility] Comment on above: Result Comment: The validity of the calculated GFR GFRAA in patients over 70 years has not been determined. Clinical correlation is essential. Performed By: #### L 501.080 #### [facility] [address] [place], [address] ECRCL 38.64 ml/min Normal [facility] Comment on above: Performed By: #### L 501.080 #### [facility] [address] [place], [address] EST GFR - AA 55 mL/min Low >60 [facility] Comment on above: Result Comment: Afri can Czech GFR Calc Performed By: #### L 501.080 #### [facility] [address] [place], [address] GAP 7 Normal 5-15 [facility] Comment on above: Performed By: #### L 501.080 #### [facility] [address] [place], [address] GFR/1.73 sq M.predicted among non-blacks MDRD (S/P/Bld) [Vol rate/Area] 45 mL/min/{1.73_m2} Low >60 [facility] Comment on above: Result Comment: Non- GFR Calc Performed By: #### L 501.080 #### [facility] [address] [place], [address] Globulin (S) [Mass/Vol] 2.9 g/dL Normal 2.2-4.2 [facility] Comment on above: Performed By: #### L 501.080 #### [facility] [address] [place], [address] Glucose [Mass/Vol] 212 mg/dL High 74-106 [facility] Comment on above: Result Comment: Gluc ose result greater than or equal to 200 mg/dL suggests DIABETES MELLITUS per A.D.A. criteria. Performed By: #### L 501.080 #### [facility] [address] [place], [address] Potassium [Moles/Vol] 4.4 mmol/L Normal 3.5-5.1 [facility] Comment on above: Performed By: #### L 501.080 #### [facility] [address] [place], [address] Sodium [Moles/Vol] 138 mmol/L Normal 136-145 [facility] Comment on above: Performed By: #### L 501.080 #### [facility] [address] [place], [address] T PROT 6.4 g/dL Normal 6.4-8.2 [facility] Comment on above: Performed By: #### L 501.080 #### [facility] [address] [place], [address] Urea nitrogen [Mass/Vol] 37 mg/dL High 7-18 [facility] Comment on above: Performed By: #### L 501.080 #### [facility] [address] [place], [address] Eosinophil percentageOrdered By: Roderick Laurent on 10-29-2024 Eosinophils/100 WBC (Bld) 3.5 % 0-5 [facility] Erythrocyte distribution wid th (RBC) [Ratio]Ordered By: Roderick Laurent on 10-29-2024 Erythrocyte distribution width (RBC) [Entitic vol] 44.6 fL High 35.1-43.9 [facility] Erythrocyte distribution wid th ratioOrdered By: Roderick Laurent on 10-29-2024 Erythrocyte distribution width (RBC) [Ratio] 11.9 % 11.6-14.6 [facility] Estimated glomerular filtrat ion rate (GFR) AmericanOrdered By: Roderick Laurent on 10-29-2024 Estimated GFR (MDRD) Amer 55 mL/min Low >60 [facility] Comment on above: GFR Calc Estimation of creatinine chapito aranceOrdered By: Roderick Laurent on 10-29-2024 Estimated Creatinine Clearance Calc 38.64 ml/min [facility] Glomerular filtration rate ( GFR) estimationOrdered By: Roderick Laurent on 10-29-2024 Estimated GFR (MDRD) Non-Af Amer 45 mL/min Low >60 [facility] Comment on above: Non- GFR Calc Glucose measurementOrdered B y: Roderick Laurent on 10-29-2024 Glucose [Mass/Vol] 212 mg/dL High 74-106 [facility] Comment on above: Glucose result great er than or equal to 200 mg/dLsuggests DIABETES MELLITUS per A.D.A. criteria. Hematocrit Auto (Bld) [Volum e fraction]Ordered By: Roderick Laurent on 10-29-2024 Hematocrit (Bld) [Volume fraction] 40.5 % 40-54 [facility] Hemoglobin measurementOrdere d By: Roderick Laurent on 10-29-2024 Hemoglobin (Bld) [Mass/Vol] 13.6 g/dL 13.0-16.5 [facility] Immature granulocytes/100 WB C Auto (Bld)Ordered By: Roderick Laurent on 10-29-2024 Immature granulocytes/100 WBC (Bld) 0.200 % 0.0-0.9 [facility] Comment on above: IG% - Immature Granu locytes (promyelocytes, myelocytes and metamyelocytes) > 1% indicates that a LEFT SHIFT is Present. Laboratory - Chemistry and C hemistry - challengeOrdered By: Roderick Laurent on 10-29-2024 AST [Catalytic activity/Vol] 22 U/L 15-37 [facility] Lymphocytes Auto (Unsp spec) [#/Vol]Ordered By: Roderick Laurent on 10-29-2024 Lymphocytes (Bld) [#/Vol] 0.93 10*3/uL 0.83-4.51 [facility] Lymphocytes/100 WBC Auto (Un sp spec)Ordered By: Roderick Laurent on 10-29-2024 Lymphocytes/100 WBC (Bld) 16.2 % Low 19-41 [facility] MCV (mean corpuscular volume ) determinationOrdered By: Roderick Laurent on 10-29-2024 MCV (RBC) [Entitic vol] 100.7 fL High 80-94 [facility] Mean corpuscular hemoglobin (MCH) determinationOrdered By: Roderick Laurent on 10-29-2024 MCH (RBC) [Entitic mass] 33.8 pg High 27.0-32.0 [facility] Mean corpuscular hemoglobin concentration (MCHC) determinationOrdered By: Roderick Laurent on 10-29-2024 MCHC (RBC) [Mass/Vol] 33.6 g/dL 32-36 [facility] Mean platelet volume determi nationOrdered By: Roderick Laurent on 10-29-2024 Platelet mean volume (Bld) [Entitic vol] 9.2 fL 6.2-12.0 [facility] Monocyte percentageOrdered B y: Roderick Laurent on 10-29-2024 Monocytes/100 WBC (Bld) 12.5 % High 0-10 [facility] Neutrophil percentageOrdered By: Roderick Laurent on 10-29-2024 Neutrophils/100 WBC (Bld) 66.9 % 47-70 [facility] Nucleated red blood cell per centageOrdered By: Roderick Laurent on 10-29-2024 Nucleated RBC/100 WBC (Bld) [Ratio] 0 % 0-5 [facility] Platelet countOrdered By: Marilu Laurent on 10-29-2024 Platelets (Bld) [#/Vol] 230 10*3/uL 150-450 [facility] Potassium measurementOrdered By: Roderick Laurent on 10-29-2024 Potassium [Moles/Vol] 4.4 mmol/L 3.5-5.1 [facility] RBC Auto (Bld) [#/Vol]Ordere d By: Roderick Laurent on 10-29-2024 RBC (Bld) [#/Vol] 4.02 10*6/uL Low 4.6-6.2 [facility] Serum anion gap measurementO rdered By: Roderick Laurent on 10-29-2024 Anion gap [Moles/Vol] 7 mmol/L 5-15 [facility] Serum globulin measurementOr dered By: Roderick Laurent on 10-29-2024 Globulin (S) [Mass/Vol] 2.9 g/dL 2.2-4.2 [facility] Serum or plasma alanine nix otransferase (ALT) measurementOrdered By: Roderick Laurent on 10-29-2024 ALT [Catalytic activity/Vol] 15 U/L Low 16-61 [facility] Serum or plasma albumin jesenia urement (mass/volume)Ordered By: Roderick Laurent on 10-29-2024 Albumin [Mass/Vol] 3.5 g/dL 3.2-5.0 [facility] Serum or plasma alkaline radha sphatase measurementOrdered By: Roderick Laurent on 10-29-2024 ALP [Catalytic activity/Vol] 64 U/L 45-117 [facility] Serum or plasma calcium jesenia urement (mass/volume)Ordered By: Roderick Laurent on 10-29-2024 Calcium [Mass/Vol] 8.9 mg/dL 8.5-10.1 [facility] Serum or plasma creatinine m easurement (mass/volume)Ordered By: Roderick Laurent on 10-29-2024 Creatinine [Mass/Vol] 1.57 mg/dL High 0.70-1.30 [facility] Comment on above: The validity of the calculated GFR & GFRAA in patients over 70 years has not been determined. Clinical correlation is essential. Serum or plasma urea nitroge n measurement (mass/volume)Ordered By: Roderick Laurent on 10-29-2024 Urea nitrogen [Mass/Vol] 37 mg/dL High 7-18 [facility] Sodium levelOrdered By: Roderick Laurent on 10-29-2024 Sodium [Moles/Vol] 138 mmol/L 136-145 [facility] Total proteinOrdered By: Katie Laurent on 10-29-2024 Protein [Mass/Vol] 6.4 g/dL 6.4-8.2 [facility] White blood cell (WBC) count Ordered By: Roderick Laurent on 10-29-2024 WBC (Bld) [#/Vol] 5.7 10*3/uL 4.4-11.0 [facility] Bedside Glucoseon 10-28-2024 FINGERSTICK GLU 191 mg/dL High [address] [facility] Comment on above: Result Comment: ARNOLD GEMENT OF PATIENT CARE PER NURSING PROTOCOL Performed By: #### L 501.080 #### [facility] [address] [place], [address] FINGERSTICK GLU 130 mg/dL High [facility]106 [facility] Comment on above: Result Comment: ARNOLD GEMENT OF PATIENT CARE PER NURSING PROTOCOL Performed By: #### L 501.080 #### [facility] [address] [place], [address] FINGERSTICK GLU 204 mg/dL High [address] [place] [address] Comment on above: Result Comment: ARNOLD GEMENT OF PATIENT CARE PER NURSING PROTOCOL Performed By: #### L 501.080 #### [facility] [address] [place], [address] CBC W/Diff, Automatedon Absolute Lymph 1.02 X10 3/uL Normal 0.83-4.51 [facility] Comment on above: Performed By: #### L 100.0100, L500.4050, L501.9520 #### [facility] [address] [place], [address] Absolute Neut 3.9 X10 3/uL Normal 2.0-7.7 [facility] Comment on above: Performed By: #### L 100.0100, L500.4050, [id number] #### [facility] [address] [place], [address] Basophils/100 WBC (Bld) 0.5 % Normal 0-1 [facility] Comment on above: Performed By: #### L 100.0100, L500.4050, [id number] #### [facility] [address] [place], [address] Eosinophils/100 WBC (Bld) 3.0 % Normal 0-5 [facility] Comment on above: Performed By: #### L 100.0100, L500.4050, [id number] #### [facility] [address] [place], [address] Erythrocyte distribution width (RBC) [Ratio] 11.8 % Normal 11.6-14.6 [facility] Comment on above: Performed By: #### L 100.0100, L500.4050, [id number] #### [facility] [address] [place], [address] Hematocrit (Bld) [Volume fraction] 40.0 % Normal 40-54 [facility] Comment on above: Performed By: #### L 100.0100, L500.4050, [id number] #### [facility] [address] [place], [address] Hemoglobin (Bld) [Mass/Vol] 13.5 g/dL Normal 13.0-16.5 [facility] Comment on above: Performed By: #### L 100.0100, L500.4050, [id number] #### [facility] [address] [place], [address] IG% 0.300 Normal 0.0-0.9 [facility] Comment on above: Result Comment: IG% - Immature Granulocytes (promyelocytes, myelocytes and metamyelocytes) > 1% indicates that a LEFT SHIFT is Present. Performed By: #### L 100.0100, L500.4050, [id number] #### [facility] [address] [place], [address] Lymphocytes/100 WBC (Bld) 17.2 % Low 19-41 [facility] Comment on above: Performed By: #### L 100.0100, L500.4050, [id number] #### [facility] [address] [place], [address] MCH (RBC) [Entitic mass] 33.4 pg High 27.0-32.0 [facility] Comment on above: Performed By: #### L 100.0100, L500.4050, [id number] #### [facility] [address] [place], [address] MCHC (RBC) [Mass/Vol] 33.8 g/dL Normal 32-36 [facility] Comment on above: Performed By: #### L 100.0100, L500.4050, [id number] #### [facility] [address] [place], [address] MCV (RBC) [Entitic vol] 99.0 fL High 80-94 [facility] Comment on above: Performed By: #### L 100.0100, L500.4050, [id number] #### [facility] [address] [place], [address] Monocytes/100 WBC (Bld) 13.9 % High 0-10 [facility] Comment on above: Performed By: #### L 100.0100, L500.4050, [id number] #### [facility] [address] [place], [address] Neutrophils/100 WBC (Bld) 65.1 % Normal 47-70 [facility] Comment on above: Performed By: #### L 100.0100, L500.4050, [id number] #### [facility] [address] [place], [address] Nucleated RBC (Bld) [#/Vol] 0 10*3/uL Normal 0-5 [facility] Comment on above: Performed By: #### L 100.0100, L500.4050, [id number] #### [facility] [address] [place], [address] Platelet mean volume (Bld) [Entitic vol] 9.4 fL Normal 6.2-12.0 [facility] Comment on above: Performed By: #### L 100.0100, L500.4050, [id number] #### [facility] [address] [place], [address] Platelets (Bld) [#/Vol] 251 10*3/uL Normal 150-450 [facility] Comment on above: Performed By: #### L 100.0100, L500.4050, [id number] #### [facility] [address] [place], [address] RBC (Bld) [#/Vol] 4.04 10*6/uL Low 4.6-6.2 [facility] Comment on above: Performed By: #### L 100.0100, L500.4050, [id number] #### [facility] [address] [place], [address] RDW SD 43.0 fl Normal 35.1-43.9 [facility] Comment on above: Performed By: #### L 100.0100, L500.4050, [id number] #### [facility] [address] [place], [address] WBC (Bld) [#/Vol] 5.9 10*3/uL Normal 4.4-11.0 [facility] Comment on above: Performed By: #### L 100.0100, L500.4050, [id number] #### [facility] [address] [place], [address] Comprehensive Metabolic Prof ilon 10-28-2024 Albumin [Mass/Vol] 3.6 g/dL Normal 3.2-5.0 [facility] Comment on above: Performed By: #### L 100.0100, L500.4050, [id number] #### [facility] [address] [place], [address] Albumin/Globulin [Mass ratio] 1.1 {ratio} Normal 0.9-2.4 [facility] Comment on above: Performed By: #### L 100.0100, L500.4050, [id number] #### [facility] [address] [place], [address] ALK P 68 U/L Normal 45-117 [facility] Comment on above: Performed By: #### L 100.0100, L500.4050, [id number] #### [facility] [address] [place], [address] ALT [Catalytic activity/Vol] 24 U/L Normal 16-61 [facility] Comment on above: Performed By: #### L 100.0100, L500.4050, [id number] #### [facility] [address] [place], [address] AST [Catalytic activity/Vol] 25 U/L Normal 15-37 [facility] Comment on above: Performed By: #### L 100.0100, L500.4050, [id number] #### [facility] [address] [place], [address] Bilirubin [Mass/Vol] 1.00 mg/dL Normal 0.20-1.00 [facility] Comment on above: Result Comment: For patients on eltrombopag therapy, use of Dimension [place] TBIL is not recommended. Performed By: #### L 100.0100, L500.4050, [id number] #### [facility] [address] [place], [address] BUN/CRE 16.7 RATIO Normal 10-20 [facility] Comment on above: Performed By: #### L 100.0100, L500.4050, [id number] #### [facility] [address] [place], [address] CA,Total 8.7 mg/dL Normal 8.5-10.1 [facility] Comment on above: Performed By: #### L 100.0100, L500.4050, [id number] #### [facility] [address] [place], [address] Chloride [Moles/Vol] 105 mmol/L Normal 98-107 [facility] Comment on above: Performed By: #### L 100.0100, L500.4050, [id number] #### [facility] [address] [place], [address] CO2 [Moles/Vol] 23.0 mmol/L Normal 21.0-32.0 [facility] Comment on above: Performed By: #### L 100.0100, L500.4050, [id number] #### [facility] [address] [place], [address] Creatinine [Mass/Vol] 1.20 mg/dL Normal 0.70-1.30 [facility] Comment on above: Result Comment: The validity of the calculated GFR GFRAA in patients over 70 years has not been determined. Clinical correlation is essential. Performed By: #### L 100.0100, L500.4050, [id number] #### [facility] [address] [place], [address] ECRCL 50.55 ml/min Normal [facility] Comment on above: Performed By: #### L 100.0100, L500.4050, [id number] #### [facility] [address] [place], [address] EST GFR - AA 74 mL/min Normal >60 [facility] Comment on above: Result Comment: Afri can Czech GFR Calc Performed By: #### L 100.0100, L500.4050, [id number] #### [facility] [address] [place], [address] GAP 8 Normal 5-15 [facility] Comment on above: Performed By: #### L 100.0100, L500.4050, [id number] #### [facility] [address] [place], [address] GFR/1.73 sq M.predicted among non-blacks MDRD (S/P/Bld) [Vol rate/Area] 62 mL/min/{1.73_m2} Normal >60 [facility] Comment on above: Result Comment: Non- GFR Calc Performed By: #### L 100.0100, L500.4050, [id number] #### [facility] [address] [place], [address] Globulin (S) [Mass/Vol] 3.3 g/dL Normal 2.2-4.2 [facility] Comment on above: Performed By: #### L 100.0100, L500.4050, [id number] #### [facility] [address] [place], [address] Glucose [Mass/Vol] 130 mg/dL High 74-106 [facility] Comment on above: Result Comment: Fast ing Glucose result greater than or equal to 126 mg/dL suggests DIABETES MELLITUS per A.D.A. criteria. Performed By: #### L 100.0100, L500.4050, [id number] #### [facility] [address] [place], [address] Potassium [Moles/Vol] 3.9 mmol/L Normal 3.5-5.1 [facility] Comment on above: Performed By: #### L 100.0100, L500.4050, [id number] #### [facility] [address] [place], [address] Sodium [Moles/Vol] 136 mmol/L Normal 136-145 [facility] Comment on above: Performed By: #### L 100.0100, L500.4050, L501.9520 #### [facility] [address] [place], [address] T PROT 6.9 g/dL Normal 6.4-8.2 [facility] Comment on above: Performed By: #### L 100.0100, L500.4050, L501.9520 #### [facility] [address] [place], [address] Urea nitrogen [Mass/Vol] 20 mg/dL High 7-18 [facility] Comment on above: Performed By: #### L 100.0100, L500.4050, L501.9520 #### [facility] [address] [place], [address] Culture, Anaerobic Any Sourc adrianna 10-28-2024 CUAN List Antibiotics Las t 48 Hours? NONE List Antibiotics to be Started? NONE No anaerobic bacteria isolated. Normal [facility] Comment on above: Performed By: #### M 100.4001, M100.3000, M100.2000 ####[facility] [address] [place], [address] TSH QnOrdered By: Sulma maxwell on 10-28-2024 Thyroid Stimulating Hormone (TSH) 4.070 uIU/mL High 0.358-3.740 [facility] Thyroid Stim Hormone (TSH)on 10-28-2024 TSH 4.070 uIU/mL High 0.358-3.740 [facility] Comment on above: Performed By: #### L 100.0100, L500.4050, L501.9520 #### [facility] [address] [place], [address] Urine Cultureon 10-28-2024 URC Mixed Gram Pos Gram Neg Org [place] Count 11,000-25,000 MIXC Mixed contaminants. Submit a new specimen if indicated. Normal [facility] Comment on above: Performed By: #### M 100.2200 ####[facility] [address] [place], [address] 12 Lead EKGon 10-27-2024 12 Lead EKG [facility] Cardiovascular Services [address] [place] [address] 12 Lead EKG 10/27/24 1027 MR#: [id number] Acct: [id number] Name: FLEX KLINE Rep #: [id number] : 1940 84 From: Garfield Thornton MD Attending Dr: Dr. Roderick Laurent DO Status: A DM IN Ordering Dr: Velasquez Morales DO Date: 4 Location: [facility] [place] Sex: M C [...] Otherwise normal ECG Confirmed by Garfield Thornton ([id number]), editor sound ERROL AIKEN ([id number]) on 10/30/2024 6:53:52 AM Referred By: Confirmed By: Garfield Thornton 10/30/24 0653 Date Garfield Thornton MD CC: Dr. Velasquez Morales DO; Dr. Roderick Laurent DO; Dr. Felix Montelongo MD Signed Normal [facility] BNP (brain natriuretic pepti de measurement)Ordered By: Velasquez Morales on 10-27-2024 Natriuretic peptide B (Bld) [Mass/Vol] 133.8 pg/mL High 0-100 [facility] BNP,B-Type NATRIURETIC PEPTI Camryn 10-27-2024 Natriuretic peptide B (Bld) [Mass/Vol] 133.8 pg/mL High 0-100 [facility] Comment on above: Performed By: #### L 501.080 #### [facility] [address] [place], [address] Basic Metabolic Profile (BMP )on 10-27-2024 BUN/CRE 17.1 RATIO Normal 10-20 [facility] Comment on above: Order Comment: 1Y Performed By: #### L 501.080 #### [facility] [address] [place], [address] CA,Total 9.2 mg/dL Normal 8.5-10.1 [facility] Comment on above: Order Comment: 1Y Performed By: #### L 501.080 #### [facility] [address] [place], [address] Chloride [Moles/Vol] 100 mmol/L Normal 98-107 [facility] Comment on above: Order Comment: 1Y Performed By: #### L 501.080 #### [facility] [address] [place], [address] CO2 [Moles/Vol] 27.0 mmol/L Normal 21.0-32.0 [facility] Comment on above: Order Comment: 1Y Performed By: #### L 501.080 #### [facility] [address] [place], [address] Creatinine [Mass/Vol] 1.46 mg/dL High 0.70-1.30 [facility] Comment on above: Order Comment: 1Y Result Comment: The validity of the calculated GFR GFRAA in patients over 70 years has not been determined. Clinical correlation is essential. Performed By: #### L 501.080 #### [facility] [address] [place], [address] ECRCL 41.55 ml/min Normal [facility] Comment on above: Order Comment: 1Y Performed By: #### L 501.080 #### [facility] [address] [place], [address] EST GFR - AA 59 mL/min Low >60 [facility] Comment on above: Order Comment: 1Y Result Comment: Afri can Czech GFR Calc Performed By: #### L 501.080 #### [facility] [address] [place], [address] GAP 7 Normal 5-15 [facility] Comment on above: Order Comment: 1Y Performed By: #### L 501.080 #### [facility] [address] [place], [address] GFR/1.73 sq M.predicted among non-blacks MDRD (S/P/Bld) [Vol rate/Area] 49 mL/min/{1.73_m2} Low >60 [facility] Comment on above: Order Comment: 1Y Result Comment: Non- GFR Calc Performed By: #### L 501.080 #### [facility] [address] [place], [address] Glucose [Mass/Vol] 158 mg/dL High 74-106 [facility] Comment on above: Order Comment: 1Y Result Comment: Fast ing Glucose result greater than or equal to 126 mg/dL suggests DIABETES MELLITUS per A.D.A. criteria. Performed By: #### L 501.080 #### [facility] [address] [place], [address] Potassium [Moles/Vol] 4.4 mmol/L Normal 3.5-5.1 [facility] Comment on above: Order Comment: 1Y Result Comment: Mode rate Hemolysis, Result may be falsely increased. Performed By: #### L 501.080 #### [facility] [address] [place], [address] Sodium [Moles/Vol] 133 mmol/L Low 136-145 [facility] Comment on above: Order Comment: 1Y Performed By: #### L 501.080 #### [facility] [address] [place], [address] Urea nitrogen [Mass/Vol] 25 mg/dL High 7-18 [facility] Comment on above: Order Comment: 1Y Performed By: #### L 501.080 #### [facility] [address] [place], [address] Bedside Glucoseon 10-27-2024 FINGERSTICK GLU 100 mg/dL Normal 74-106 [facility] Comment on above: Result Comment: ARNOLD HAYWARD OF PATIENT CARE PER NURSING PROTOCOL Performed By: #### L 501.080 #### [facility] [address] [place], [address] Bilirubin Test strip Ql (U)O rdered By: Velasquez Morales on 10-27-2024 Bilirubin Ql (U) Negative Negative [facility] CBC W/Diff, Automatedon 12-0 Absolute Neut Normal 2.0-7.7 [facility] Comment on above: Result Comment: James philippe via OM: Ordered Performed By: #### L 501.080 #### [facility] [address] [place], [address] HCT Normal 40-54 [facility] Comment on above: Result Comment: James philippe via OM: Ordered Performed By: #### L 501.080 #### [facility] [address] [place], [address] HGB Normal 13.0-16.5 [facility] Comment on above: Result Comment: James philippe via OM: Ordered Performed By: #### L 501.080 #### [facility] [address] [place], [address] MCH Normal 27.0-32.0 [facility] Comment on above: Result Comment: Canc elled via OM: MD Ordered Performed By: #### L 501.080 #### [facility] [address] [place], [address] MCHC Normal 32-36 [facility] Comment on above: Result Comment: Canc elled via OM: MD Ordered Performed By: #### L 501.080 #### [facility] [address] [place], [address] MCV Normal 80-94 [facility] Comment on above: Result Comment: Canc elled via OM: MD Ordered Performed By: #### L 501.080 #### [facility] [address] [place], [address] NEUT% Normal 47-70 [facility] Comment on above: Result Comment: Canc elled via OM: MD Ordered Performed By: #### L 501.080 #### [facility] [address] [place], [address] PLT Normal 150-450 [facility] Comment on above: Result Comment: Canc elled via OM: MD Ordered Performed By: #### L 501.080 #### [facility] [address] [place], [address] RBC Normal 4.6-6.2 [facility] Comment on above: Result Comment: Canc elled via OM: MD Ordered Performed By: #### L 501.080 #### [facility] [address] [place], [address] RDW CV Normal 11.6-14.6 [facility] Comment on above: Result Comment: Canc elled via OM: MD Ordered Performed By: #### L 501.080 #### [facility] [address] [place], [address] RDW SD Normal 35.1-43.9 [facility] Comment on above: Result Comment: Canc elled via OM: MD Ordered Performed By: #### L 501.080 #### [facility] [address] [place], [address] WBC Normal 4.4-11.0 [facility] Comment on above: Result Comment: Canc elled via OM: MD Ordered Performed By: #### L 501.080 #### [facility] [address] [place], [address] Absolute Lymph 0.82 X10 3/uL Low 0.83-4.51 [facility] Comment on above: Performed By: #### L 501.080 #### [facility] [address] [place], [address] Absolute Neut 4.3 X10 3/uL Normal 2.0-7.7 [facility] Comment on above: Performed By: #### L 501.080 #### [facility] [address] [place], [address] Basophils/100 WBC (Bld) 0.7 % Normal 0-1 [facility] Comment on above: Performed By: #### L 501.080 #### [facility] [address] [place], [address] Eosinophils/100 WBC (Bld) 2.2 % Normal 0-5 [facility] Comment on above: Performed By: #### L 501.080 #### [facility] [address] [place], [address] Erythrocyte distribution width (RBC) [Ratio] 11.9 % Normal 11.6-14.6 [facility] Comment on above: Performed By: #### L 501.080 #### [facility] [address] [place], [address] Hematocrit (Bld) [Volume fraction] 41.5 % Normal 40-54 [facility] Comment on above: Performed By: #### L 501.080 #### [facility] [address] [place], [address] Hemoglobin (Bld) [Mass/Vol] 14.6 g/dL Normal 13.0-16.5 [facility] Comment on above: Performed By: #### L 501.080 #### [facility] [address] [place], [address] IG% 0.300 Normal 0.0-0.9 [facility] Comment on above: Result Comment: IG% - Immature Granulocytes (promyelocytes, myelocytes and metamyelocytes) > 1% indicates that a LEFT SHIFT is Present. Performed By: #### L 501.080 #### [facility] [address] [place], [address] Lymphocytes/100 WBC (Bld) 14.1 % Low 19-41 [facility] Comment on above: Performed By: #### L 501.080 #### [facility] [address] [place], [address] MCH (RBC) [Entitic mass] 34.9 pg High 27.0-32.0 [facility] Comment on above: Performed By: #### L 501.080 #### [facility] [address] [place], [address] MCHC (RBC) [Mass/Vol] 35.2 g/dL Normal 32-36 [facility] Comment on above: Performed By: #### L 501.080 #### [facility] [address] [place], [address] MCV (RBC) [Entitic vol] 99.3 fL High 80-94 [facility] Comment on above: Performed By: #### L 501.080 #### [facility] [address] [place], [address] Monocytes/100 WBC (Bld) 9.3 % Normal 0-10 [facility] Comment on above: Performed By: #### L 501.080 #### [facility] [address] [place], [address] Neutrophils/100 WBC (Bld) 73.4 % High 47-70 [facility] Comment on above: Performed By: #### L 501.080 #### [facility] [address] [place], [address] Nucleated RBC (Bld) [#/Vol] 0 10*3/uL Normal 0-5 [facility] Comment on above: Performed By: #### L 501.080 #### [facility] [address] [place], [address] Platelet mean volume (Bld) [Entitic vol] 9.6 fL Normal 6.2-12.0 [facility] Comment on above: Performed By: #### L 501.080 #### [facility] [address] [place], [address] Platelets (Bld) [#/Vol] 256 10*3/uL Normal 150-450 [facility] Comment on above: Performed By: #### L 501.080 #### [facility] [address] [place], [address] RBC (Bld) [#/Vol] 4.18 10*6/uL Low 4.6-6.2 [facility] Comment on above: Performed By: #### L 501.080 #### [facility] [address] [place], [address] RDW SD 43.4 fl Normal 35.1-43.9 [facility] Comment on above: Performed By: #### L 501.080 #### [facility] [address] [place], [address] WBC (Bld) [#/Vol] 5.8 10*3/uL Normal 4.4-11.0 [facility] Comment on above: Performed By: #### L 501.080 #### [facility] [address] [place], [place], [address] Chest 1 View (Portable)on Chest 1 View (Portable) [facility] Imaging Services [address] [place], [place] [address] Chest 1 View (Portable) MR#: [id number] Acct: [id number] Name: FLEX KLINE Rep #: [id number] : 1940 M 84 From: Clint Freire MD PCP: Dr. Felix Montelongo MD Status: PRE ER Study: Chest 1 View (Portable) Date of Exam: 10/27/24 Exam# [id number] Ordering Dr: [place] [id number] STUDY: X-RAY CHEST REASON FOR EXAM: Male, [...] Velasquez Morales DO; Dr. Felix Montelongo MD Torch Straightener: Signed Normal [facility] D-Dimer Quantitative (DVT/PE )on 10-27-2024 D-DIMER QUANT 0.50 FEU/ug/m High 0.27-0.49 [facility] Comment on above: Order Comment: CRITI SHIN VALUE CALLED TO TROY [id number]/06/24 1225 Cat Thong.RESULTS READ BACK BY SAME. Result Comment: D-Di augusta ELEVATED (>0.49): Additional studies and clinical assessments are indicated to conclude diagnosis of: Deep Vein Thrombosis (DVT) or Pulmonary Embolism (PE) Performed By: #### L 501.080 #### [facility] [address] [facility] [address] [facility] [place], [address] D-dimer measurement for deep venous thrombosisOrdered By: Velasquez Morales on 10-27-2024 D-Dimer Quantitative (PE/DVT) 0.50 FEU/ug/m High 0.27-0.49 [facility] Comment on above: D-Dimer ELEVATED (>0 .49): Additional studies and clinicalassessments are indicated to conclude diagnosis of:Deep Vein Thrombosis (DVT) or Pulmonary Embolism (PE) Echo Complete W/ Contraston 10-27-2024 Echo Complete W/ Contrast [facility] Services [address] [place] [address] Echo Complete W/ Contrast 10/28/24 0814 MR#: [id number] Acct: [id number] Name: FLEX KLINE Rep #: [id number] : 1940 84 From: Angela Ramirez MD Attending Dr: Dr. Roderick Laurent, DO Status: A DM IN Ordering Dr: Sulma Romero MD Date: 10/27/24 Location: [facility] Sex: M C Admitted: 10/27/24 Reason For [...] Date Angela Ramirez MD CC: Dr. Roderick Lauretn DO; Dr. Sulma Romero MD; Dr. Felix Montelongo MD Date Dictated: 10/28/24813 Date Transcribed: 10/28/241446 Torch Straightener: Signed Normal [facility] Emergency Department Summary on 10-27-2024 Emergency Department Summary [facility] Medical Records Department [address] [place] [address] Emergency Department Summary 10/27/24 MR#: [id number] Acct: [id number] Name: FLEX KLINE Rep #: [id number] : 1940 84 From: Velasquez Morales DO PCP: Dr. Felix Montelongo MD Status:ADM IN [id number] History of Present Illness Chief Complaint: [...] intact Psych: Cooperative, appropriate mood and affect [facility] Medical History Diabetes GERD (gastroesophageal reflux disease) Cataract 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 heart disease of [place] coronary artery without angina pectoris Parkinson's disease [...] CAD (coron (more content not included)... Normal [facility] Epithelial cells.squamous LM Ql (Urine sed)Ordered By: Velasquez Morales on 10-27-2024 Epithelial cells.squamous LM.HPF (Urine sed) [#/Area] 0 /[HPF] 0-5 [facility] Glucose Ql (U)Ordered By: Korey Morales on 10-27-2024 Glucose (U) [Mass/Vol] 1000 mg/dL High Normal [facility] H AND P Exam - Hospitaliston 10-27-2024 H&P Exam - Hospitalist [facility] Medical Records Department [address] [place] [address] H P Exam - Hospitalist 10/27/24 1633 MR#: [id number] Acct: [id number] Name: FLEX KLINE Rep #: [id number] : 1940 84 From: Sulma Romero MD PCP: Dr. Felix Montelongo MD Status:ADM IN Location: [facility] [id number] HPI - General General Date of Admission: 10/27/24 Date of Service: 10/27/24 Chief Complaint: Weakness, CP, SOB HPI Narrative FLEX KLINE, is a 84-year-old male history of CKD, Parkinson's, CAD, BPH, diabetes, hypothyroidism presented [facility] ED 10/27/2024 with shortness of breath, [...] notice any change with exertion or rest. [facility] Medical History Diabetes GERD (gastroesophageal reflux disease) Cataract 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 heart disease of [place] coronary artery without angina pectoris Parkinson's disease [...] History o (more content not included)... Normal [facility] Influenza virus A and B and SARS-CoV-2 (COVID-19) and Respiratory syncytial virus RNAOrdered By: Velasquez Morales on 10-27-2024 SARS-CoV-2 (COVID-19) RNA ROSIE+probe Ql (Unsp spec) [facility] Ketones Test strip Ql (U)Ord ered By: Velasquez Morales on 10-27-2024 Ketones Ql (U) 5 mg/dl High Negative [facility] L501.4020on 10-27-2024 TROPONIN-I HS 9 pg/mL Normal 3.0-78.0 [facility] Comment on above: Result Comment: Plea se Note: New Test Units and Gender Specific Reference Ranges. For more information see Policy Stat Procedure [place] High Sensitivity Troponin (TNIH) and attachments. Performed By: #### L 501.4020 #### [facility] [address] [place], [address] L501.5425on 10-27-2024 TROPONIN-I HS 8 pg/mL Normal 3.0-78.0 [facility] Comment on above: Order Comment: 1Y Result Comment: Plea se Note: New Test Units and Gender Specific Reference Ranges. For more information see Policy Stat Procedure [place] High Sensitivity Troponin (TNIH) and attachments. Performed By: #### L 501.080 #### [facility] [address] [place], [address] M100.678on 10-27-2024 M100.678 Pending SARS-CoV-2 (COVID 19) Negative INFLUENZA A Negative INFLUENZA B Negative RSV PCR Negative Normal [facility] Comment on above: Performed By: #### M 100.678, L400.0001 ####[facility] [address] [place], [address] Magnesiumon 10-27-2024 Magnesium [Mass/Vol] 2.2 mg/dL Normal 1.6-2.6 [facility] Comment on above: Performed By: #### L 501.080 #### [facility] [address] [place], [place], [address] Magnesium measurementOrdered By: Velasquez Morales on 10-27-2024 Magnesium [Mass/Vol] 2.2 mg/dL 1.6-2.6 [facility] Microscopic analysis of urin e for red blood cells (RBC)Ordered By: Velasquez Morales on 10-27-2024 Urine RBC 0 SEEN /hpf 0-5 [facility] Mucus LM Ql (Urine sed)Order ed By: Velasquez Morales on 10-27-2024 Mucus Ql (Urine sed) 0 SEEN /hpf [facility] Nitrite Test strip Ql (U)Ord ered By: Velasquezsandeep Morales on 10-27-2024 Nitrite Ql (U) Negative Negative [facility] Protein Test strip Ql (U)Ord ered By: Velasquez Morales on 10-27-2024 Protein Ql (U) 30 mg/dl High Negative [facility] Thyroid Stim Hormone (TSH)on 10-27-2024 TSH 2.580 uIU/mL Normal 0.358-3.740 [facility] Comment on above: Performed By: #### L 501.080 #### [facility] [address] [place], [place], [address] Troponin IOrdered By: Velasquez Morales on 10-27-2024 Troponin I High Sensitivity 9 pg/mL 3.0-78.0 [facility] Comment on above: Please Note: New Luz Elena t Units and Gender Specific Reference Ranges. For more information see Policy Stat Procedure [place] High Sensitivity Troponin (TNIH) and attachments. Urinalysis, Completeon 10-27 BACTERIA 1+ /hpf Normal None Seen [facility] Comment on above: Order Comment: CLEAN CATCH Performed By: #### M 100.678, L400.0001 ####[facility] [address] [place], [address] WBC 10-25 SEEN Normal 0-5 [facility] Comment on above: Order Comment: CLEAN CATCH Performed By: #### M 100.678, L400.0001 ####[facility] [address] [place], [address] BILIRUBIN URINE Negative Normal Negative [facility] Comment on above: Order Comment: CLEAN CATCH Performed By: #### M 100.678, L400.0001 ####[facility] [address] [place], [address] Clarity (U) Clear Normal Clear [facility] Comment on above: Order Comment: CLEAN CATCH Performed By: #### M 100.678, L400.0001 ####[facility] [address] [place], [address] Color (U) Straw Normal Yellow [facility] Comment on above: Order Comment: CLEAN CATCH Performed By: #### M 100.678, L400.0001 ####[facility] [address] [place], [address] GLUCOSE, UR 1000 mg/dl Abnormal Normal [facility] Comment on above: Order Comment: CLEAN CATCH Performed By: #### M 100.678, L400.0001 ####[facility] [address] [place], [address] KETONE UR 5 mg/dl Abnormal Negative [facility] Comment on above: Order Comment: CLEAN CATCH Performed By: #### M 100.678, L400.0001 ####[facility] [address] [place], [address] LEUK ESTERASE 100 /ul Abnormal Negative [facility] Comment on above: Order Comment: CLEAN CATCH Performed By: #### M 100.678, L400.0001 ####[facility] [address] [place], [address] Nitrite Ql (U) Negative Normal Negative [facility] Comment on above: Order Comment: CLEAN CATCH Performed By: #### M 100.678, L400.0001 ####[facility] [address] [place], [address] OCCULT BLOOD-UR Negative Normal Negative [facility] Comment on above: Order Comment: CLEAN CATCH Performed By: #### M 100.678, L400.0001 ####[facility] [address] [place], [address] pH UR 7.0 Normal 5.0 - 8.0 [facility] [facility] Comment on above: Order Comment: CLEAN CATCH Performed By: #### M 100.678, L400.0001 ####[facility] [address] [place], [address] PROT DIPSTX 30 mg/dl Abnormal Negative [facility] Comment on above: Order Comment: CLEAN CATCH Performed By: #### M 100.678, L400.0001 ####[facility] [address] [place], [address] SP.GR. DIPSTX 1.010 Normal 1.002-1.030 [facility] Comment on above: Order Comment: CLEAN CATCH Performed By: #### M 100.678, L400.0001 ####[facility] [address] [place], [address] UROBILI Normal Normal Normal [facility] Comment on above: Order Comment: CLEAN CATCH Performed By: #### M 100.678, L400.0001 ####[facility] [address] [place], [address] EPI,SQUAMOUS 0 SEEN Normal 0-5 [facility] Comment on above: Order Comment: CLEAN CATCH Performed By: #### M 100.678, L400.0001 ####[facility] [address] [place], [address] Mucus Ql (Urine sed) 0 SEEN Normal [facility] Comment on above: Order Comment: CLEAN CATCH Performed By: #### M 100.678, L400.0001 ####[facility] [address] [place], [address] RBC 0 SEEN Normal 0-5 [facility] Comment on above: Order Comment: CLEAN CATCH Performed By: #### M 100.678, L400.0001 ####[facility] [address] [place], [address] Urine blood detectionOrdered By: Velasquez Morales on 10-27-2024 Urine Occult Blood Negative Negative [facility] Urine clarityOrdered By: Gregor Morales on 10-27-2024 Clarity (U) Clear Clear [facility] Urine color determinationOrd ered By: Velasquez Morales on 10-27-2024 Color (U) Straw Yellow [facility] Urine cultureOrdered By: Gregor Morales on 10-27-2024 Bacteria identified Cx Nom (U) Mixed Gram Pos & Gram Neg Org Abnormal [facility] Urine leukocyte esterase det ection by dipstickOrdered By: Velasquez Morales on 10-27-2024 Leukocyte esterase Test strip Ql (U) 100 /ul High Negative [facility] Urine pHOrdered By: Velasquez Saab on 10-27-2024 pH (U) 7.0 [pH] 5.0 - 8.0 [facility] Urine sediment bacteria coun t by microscopy (number/high power field)Ordered By: Velasquez Morales on 10-27-2024 Bacteria LM.HPF (Urine sed) [#/Area] 1 /[HPF] None Seen [facility] Urine specific gravity measu rementOrdered By: Velasquez Morales on 10-27-2024 Specific gravity (U) [Rel density] 1.010 1.002-1.030 [facility] Urobilinogen Ql (U)Ordered B y: Velasquez Morales on 10-27-2024 Urine Urobilinogen Normal mg/dl Normal [facility] White blood cell countOrdere d By: Velasquez Morales on 10-27-2024 Urine WBC 10-25 SEEN /hpf 0-5 [facility] Wound Cultureon 10-27-2024 WC List Antibiotics [...] S Vancomycin Islt GAYLA <=0.5 S Normal [facility] Comment on above: Performed By: #### M 100.4001, M100.3000, M100.1999 ####[facility] [address] [place], [address] Gram Stainon 10-26-2024 GS List Antibiotics [place] 48 Hours? NONE List Antibiotics to be Started? NONE Gram Stain No organisms seen No cells seen Normal [facility] Comment on above: Performed By: #### M 100.4001, M100.3000, M100.1999 ####[facility] [address] [place], [address] Wound Ctr History AND Physic josé miguel 10-25-2024 Wound Ctr History & Physical [facility] [address] [place] [address] H P Exam - Wound Care 10/25/24 1711 MR#: [id number] Acct: [id number] Name: FLEX KLINE Rep #: [id number] : 1940 84 From: Rita Calixto NP STATUS CONTROLLER-C PCP: Dr. Felix Montelongo MD Status:REG RCR [...] erythematous and dry but no open wounds. [facility] Medical History Diabetes GERD (gastroesophageal reflux disease) Cataract 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 heart disease of [place] coronary artery without angina pectoris Parkinson's disease [...] Constitutional: D (more content not included)... Normal [facility] Absolute lymphocyte counton 06-29-2023 Lymphocytes Auto (Unsp spec) [#/Vol] 0.81 10*3/uL 0.83-4.51 [facility] Basophil percentageon 2022 Basophils/100 WBC (Bld) 0.2 % 0-1 [facility] Bilirubin [Mass/Vol] 0.80 mg/dL 0.20-1.00 [facility] Comment on above: For patients on eltr ombopag therapy, use of Dimension [place] TBIL is not recommended. Chloride [Moles/Vol] 101 mmol/L 98-107 [facility] Cholesterol [Mass/Vol] 170 mg/dL <200 [facility] Comment on above: <200 mg/dL Desirable 200-240 mg/dL Borderline >240 mg/dL High Risk Eosinophils/100 WBC (Bld) 3.3 % 0-5 [facility] Glucose [Mass/Vol] 119 mg/dL 74-106 [facility] Comment on above: Fasting Glucose resu lt from 100 to 125 mg/dL suggests IMPAIRED HOMEOSTASIS per A.D.A. criteria. Neutrophils (Bld) [#/Vol] 3.9 10*3/uL 2.0-7.7 [facility] Neutrophils/100 WBC (Bld) 70.4 % 47-70 [facility] Potassium [Moles/Vol] 4.8 mmol/L 3.5-5.1 [facility] Protein [Mass/Vol] 7.2 g/dL 6.4-8.2 [facility] Sodium [Moles/Vol] 134 mmol/L 136-145 [facility] Triglyceride [Mass/Vol] 57 mg/dL <199 [facility] Comment on above: The drugs N-Acetylcy steine and Metamizole may falsely depress this assay.Serum Triglycerides Reference Interval Normal <150 mg/dL Borderline high 150 - 199 mg/dL High 200 - 499 mg/dL Very High > or = 500 mg/dL WBC (Bld) [#/Vol] 5.5 10*3/uL 4.4-11.0 [facility] Blood erythrocytes count (nu mber/volume)on 06-29-2023 RBC (Bld) [#/Vol] 4.22 10*6/uL 4.6-6.2 [facility] Blood hemoglobin measurement (mass/volume)on 06-29-2023 Hemoglobin (Bld) [Mass/Vol] 14.4 g/dL 13.0-16.5 [facility] Blood lymphocytes/100 leukoc yteson 06-29-2023 Lymphocytes/100 WBC (Bld) 14.8 % 19-41 [facility] Blood monocytes/100 leukocyt eson 06-29-2023 Monocytes/100 WBC (Bld) 11.1 % 0-10 [facility] Blood platelet mean volumeon 06-29-2023 Platelet mean volume (Bld) [Entitic vol] 9.7 fL 6.2-12.0 [facility] Determination of erythrocyte mean corpuscular volume (MCV)on 06-29-2023 MCV (RBC) [Entitic vol] 96.9 fL 80-94 [facility] Hematocrit Auto (Bld) [Volum e fraction]on 06-29-2023 Hematocrit (Bld) [Volume fraction] 40.9 % 40-54 [facility] Laboratory - Chemistry and C hemistry - challengeon 06-29-2023 ALP [Catalytic activity/Vol] 59 U/L 45-117 [facility] ALT [Catalytic activity/Vol] 24 U/L 16-61 [facility] CO2 [Moles/Vol] 27.0 mmol/L 21.0-32.0 [facility] Globulin (S) [Mass/Vol] 3.3 g/dL 2.2-4.2 [facility] Urea nitrogen/Creatinine [Mass ratio] 18.1 mg/mg 10-20 [facility] Laboratory - Hematology and Cell countson 06-29-2023 Erythrocyte distribution width (RBC) [Entitic vol] 42.5 fL 35.1-43.9 [facility] Erythrocyte distribution width (RBC) [Ratio] 11.9 % 11.6-14.6 [facility] Immature granulocytes/100 WBC (Bld) 0.200 % 0.0-0.9 [facility] Comment on above: IG% - Immature Granu locytes (promyelocytes, myelocytes and metamyelocytes) > 1% indicates that a LEFT SHIFT is Present. MCH (RBC) [Entitic mass] 34.1 pg 27.0-32.0 [facility] Nucleated RBC/100 WBC (Bld) [Ratio] 0 % 0-5 [facility] MCHC Auto (RBC) [Mass/Vol]on 06-29-2023 MCHC (RBC) [Mass/Vol] 35.2 g/dL 32-36 [facility] No Panel Informationon 06-29 Estimated GFR (MDRD) Amer 56 mL/min >60 [facility] Comment on above: GFR Calc Estimated GFR (MDRD) Non-Af Amer 46 mL/min >60 [facility] Comment on above: Non- GFR Calc Prostate Specific Antigen Screen 3.35 ng/mL 0.00-4.00 [facility] Comment on above: This test was perfor med using the TPSA assay method for [employer] chemistry system. Values obtained with differentassay methods cannot be used interchangably.When changing PSA assays in the course of monitoring apatient, additional sequential testing should be carriedout to confirm baseline values. Thyroid Stimulating Hormone (TSH) 4.85 uIU/mL 0.358-3.74 [facility] Urine Microalbumin/Creatinine Ratio 26.8 mg/g CRE <30 [facility] Platelets bldon 06-29-2023 Platelets (Bld) [#/Vol] 217 10*3/uL 150-450 [facility] Serum or plasma albumin jesenia urement (mass/volume)on 06-29-2023 Albumin [Mass/Vol] 3.9 g/dL 3.2-5.0 [facility] Serum or plasma albumin/glob ulin mass ratioon 06-29-2023 Albumin/Globulin [Mass ratio] 1.2 {ratio} 0.9-2.4 [facility] Serum or plasma calcium jesenia urement (mass/volume)on 06-29-2023 Calcium [Mass/Vol] 9.0 mg/dL 8.5-10.1 [facility] Serum or plasma cholesterol in HDL measurement (mass/volume)on 06-29-2023 Cholesterol in HDL [Mass/Vol] 56 mg/dL >40 [facility] Comment on above: The drugs N-Acetylcy steine and Metamizole may falsely depress this assay. Reference Range HDL <40 mg/dL Low HDL Cholesterol HDL >or= 60 mg/dL High HDL Cholesterol Serum or plasma cholesterol in VLDL measurement (mass/volume)on 06-29-2023 Cholesterol in VLDL [Mass/Vol] 11 mg/dL 5-40 [facility] Serum or plasma creatinine m easurement (mass/volume)on 06-29-2023 Creatinine [Mass/Vol] 1.55 mg/dL 0.70-1.30 [facility] Comment on above: The validity of the calculated GFR & GFRAA in patients over 70 years has not been determined. Clinical correlation is essential. Serum or plasma low density lipoprotein (LDL) cholesterol measurement (mass/volume)on 06-29-2023 Cholesterol in LDL [Mass/Vol] 103 mg/dL 0-130 [facility] Serum or plasma urea nitroge n measurement (mass/volume)on 06-29-2023 Urea nitrogen [Mass/Vol] 28 mg/dL 7-18 [facility] Thin prep Papanicolaou smear with manual screeningon 06-29-2023 Thin prep Papanicolaou smear with manual screening 21 U/L 15-37 [facility] Thin prep Papanicolaou smear with manual screening 6 5-15 [facility] Thin prep Papanicolaou smear with manual screening 32.2 mg/L NO RANGE EST. [facility] Urine creatinine measurement (mass/volume)on 06-29-2023 Creatinine (U) [Mass/Vol] 120.00 mg/dL NO RANGE EST. [facility] Whole blood hemoglobin A1c/t otal hemoglobin ratio (mass fraction)on 06-29-2023 HbA1c (Bld) [Mass fraction] 6.9 % 3.8-5.6 [facility] Comment on above: Normal < 5.7 % Predi abetic 5.7 - 6.4 % Diabetic >or= 6.5 % Please note range changes. Basophil percentageon 2021 Bilirubin [Mass/Vol] 0.70 mg/dL 0.20-1.00 [facility] Work Phone: Comment on above: For patients on eltr ombopag therapy, use of Dimension [place] TBIL is not recommended. Chloride [Moles/Vol] 100 mmol/L 98-107 [facility] Work Phone: Cholesterol [Mass/Vol] 180 mg/dL <200 [facility] Work Phone: Comment on above: <200 mg/dL Desirable 200-240 mg/dL Borderline >240 mg/dL High Risk Glucose [Mass/Vol] 138 mg/dL 74-106 [facility] Work Phone: Comment on above: Fasting Glucose resu lt greater than or equal to 126 mg/dL suggests DIABETES MELLITUS per A.D.A. criteria. Potassium [Moles/Vol] 4.4 mmol/L 3.5-5.1 [facility] Work Phone: Protein [Mass/Vol] 7.5 g/dL 6.4-8.2 [facility] Work Phone: Sodium [Moles/Vol] 135 mmol/L 136-145 [facility] Work Phone: Triglyceride [Mass/Vol] 54 mg/dL <199 [facility] Work Phone: Comment on above: The drugs N-Acetylcy steine and Metamizole may falsely depress this assay.Serum Triglycerides Reference Interval Normal <150 mg/dL Borderline high 150 - 199 mg/dL High 200 - 499 mg/dL Very High > or = 500 mg/dL Laboratory - Chemistry and C hemistry - challengeon 06-04-2022 ALP [Catalytic activity/Vol] 66 U/L 45-117 [facility] Work Phone: ALT [Catalytic activity/Vol] 35 U/L 16-61 [facility] Work Phone: [phone] CO2 [Moles/Vol] 29.0 mmol/L 21.0-32.0 [facility] Work Phone: [phone] Globulin (S) [Mass/Vol] 3.4 g/dL 2.2-4.2 [facility] Work Phone: Urea nitrogen/Creatinine [Mass ratio] 18.2 mg/mg 10-20 [facility] Work Phone: [phone] Laboratory - Hematology and Cell countson 06-04-2022 HbA1c (Bld) [Mass fraction] 6.9 % [facility] Work Phone: No Panel Informationon 06-04 Estimated GFR (MDRD) Amer 56 mL/min >60 [facility] Work Phone: Comment on above: GFR Calc Estimated GFR (MDRD) Non-Af Amer 46 mL/min >60 [facility] Work Phone: Comment on above: Non- GFR Calc Thyroid Stimulating Hormone (TSH) 4.27 uIU/mL 0.358-3.74 [facility] Work Phone: Urine Microalbumin/Creatinine Ratio 97.5 mg/g CRE <30 [facility] Work Phone: [phone] Serum or plasma albumin jesenia urement (mass/volume)on 06-04-2022 Albumin [Mass/Vol] 4.1 g/dL 3.2-5.0 [facility] Work Phone: Serum or plasma albumin/glob ulin mass ratioon 06-04-2022 Albumin/Globulin [Mass ratio] 1.2 {ratio} 0.9-2.4 [facility] Work Phone: [phone] Serum or plasma calcium jesenia urement (mass/volume)on 06-04-2022 Calcium [Mass/Vol] 9.0 mg/dL 8.5-10.1 [facility] Work Phone: [phone] Serum or plasma cholesterol in HDL measurement (mass/volume)on 06-04-2022 Cholesterol in HDL [Mass/Vol] 59 mg/dL >40 [facility] Work Phone: Comment on above: The drugs N-Acetylcy steine and Metamizole may falsely depress this assay. Reference Range HDL <40 mg/dL Low HDL Cholesterol HDL >or= 60 mg/dL High HDL Cholesterol Serum or plasma cholesterol in VLDL measurement (mass/volume)on 06-04-2022 Cholesterol in VLDL [Mass/Vol] 11 mg/dL 5-40 [facility] Work Phone: Serum or plasma creatinine m easurement (mass/volume)on 06-04-2022 Creatinine [Mass/Vol] 1.54 mg/dL 0.70-1.30 [facility] Work Phone: Comment on above: The validity of the calculated GFR & GFRAA in patients over 70 years has not been determined. Clinical correlation is essential. Serum or plasma low density lipoprotein (LDL) cholesterol measurement (mass/volume)on 06-04-2022 Cholesterol in LDL [Mass/Vol] 110 mg/dL 0-130 [facility] Work Phone: Serum or plasma urea nitroge n measurement (mass/volume)on 06-04-2022 Urea nitrogen [Mass/Vol] 28 mg/dL 7-18 [facility] Work Phone: Thin prep Papanicolaou smear with manual screeningon 06-04-2022 Thin prep Papanicolaou smear with manual screening 27 U/L 15-37 [facility] Work Phone: Thin prep Papanicolaou smear with manual screening 6 5-15 [facility] Work Phone: Thin prep Papanicolaou smear with manual screening 116.0 mg/L NO RANGE EST. [facility] Work Phone: Urine creatinine measurement (mass/volume)on 06-04-2022 Creatinine (U) [Mass/Vol] 119.00 mg/dL NO RANGE EST. [facility] Work Phone: Echocardiogramon 07-10-2021 Echocardiography [facility] , [address] [place] [address], [address], [place], [place] [address] and TRANSTHORACIC ECHOCARDIOGRAM REPORT Patient Name: FLEX Dhaliwal Physician: [id number] Diamond Hammer MD Study Date: 07/10/2021 Referring Physician: DAVID BABCOCK MRN/PID: [id number] PCP: Accession/Order#: [id number] Department Location: [facility] Date of : 1940 Fellow: Gender: M Nurse: Admit Date: Pot Feeder: Tono Blake RDCS Admission Status: Outpatient Additional Staff: Height: 180.34 cm CC Report to: Weight: 81.65 kg Study Type: Echocardiogram BSA: 2.02 m2 Blood Pressure: 141 /77 mmHg Diagnosis/ICD: 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 Indication: Coronary artery disease Procedure/CPT: Echo Complete w Full [id number] Patient History: Pertinent History: CAD s/p CABG [...] Antonia: 1.52 PulmV Sys Antonia: 48.61 cm/s [id number] Diamond Hammer MD Electronically signed on 07/10/2021 at 8:33:27 PM Final Normal [facility] Blood Pressure Cuff Sizeon 0 06-24-2021 Fall risk assessment b) One or more fall s in the last year [facility] Work Phone: Tobacco use status HS b) No M [facility] Work Phone: Blood Pressure Cuff Size Adult [facility] Work Phone: Office Visit (Vascular [...] dominant, LM unclear, LCX moderate disease, LAD ACTIVE DIRECTORY ARCHITECT, RCA ACTIVE DIRECTORY ARCHITECT, VG-LAD patent, PEACE-OM patent, VG-PDA occluded. Was told by his primary breaster that he may need atherectomy to one [...] mg QHS. Continue ranolazine and ISMR. [facility] Chief Complaint Chief Complaints Visit [...] dominant, LM unclear, LCX moderate disease, LAD ACTIVE DIRECTORY ARCHITECT, RCA ACTIVE DIRECTORY ARCHITECT, VG-LAD patent, PEACE-OM patent, VG-PDA occluded. Was told by his primary breaster that he may need atherectomy to one of his vessels (?Cx). Additionally, it appears afterwards he had a MPI that demonstrated no inducible ischemia, normal LV size and function (low risk study) performed on 04-23-2021 and in response to this, it was decided that no further intervention was necessary. Monitor Worker: Harjinder Jones MD ([facility]) *Active Problems Problems Diabetes mellitus (250.00) (E11.9) [...] Clopidogrel Bisulfate (more content not included)... Normal [facility] Tobacco Screening.on 021 Fall risk assessment a) No falls within the last year [facility] [place] Work Phone: Tobacco use status CPHS b) No M [facility] [place] Work Phone: Vital Signs Date Time Vital Sign Value Performing Clinician Facility 05-16-2025 11:24-0400 Diastolic blood pressure 75 mm[Hg] Elana Castañeda MD Work Phone: [facility] 05-16-2025 11:24-0400 Heart rate 78 /min Elana Castañeda MD Work Phone: [facility] 05-16-2025 11:24-0400 SaO2% (BldA) [Mass fraction] 97 % Elana Castañeda MD Work Phone: [facility] 05-16-2025 11:24-0400 Systolic blood pressure 136 mm[Hg] Elana Castañeda MD Work Phone: [facility] 2025 10:58-0400 Body height 176.5 cm Harjinder Jones MD Work Phone: [facility] 2025 10:58-0400 Body mass index (BMI) [Ratio] 26.2 kg/m2 Harjinder Jones MD Work Phone: [facility] 2025 10:58-0400 Body weight 81.65 kg Harjinder Jones MD Work Phone: [facility] 2025 10:58-0400 Diastolic blood pressure 60 mm[Hg] Harjinder Jones MD Work Phone: [facility] 2025 10:58-0400 Heart rate 82 /min Harjinder Jones MD Work Phone: [facility] 2025 10:58-0400 Respiratory rate 16 /min Harjinder Jones MD Work Phone: [facility] 2025 10:58-0400 SaO2% (BldA) [Mass fraction] 98 % Harjinder Jones MD Work Phone: [facility] 2025 10:58-0400 Systolic blood pressure 138 mm[Hg] Harjinder Jones MD Work Phone: [facility] 03-02-2025 10:37-0400 Body mass index (BMI) [Ratio] 26.2 kg/m2 Kwan Estrella MD Work Phone: [facility] 03-02-2025 10:37-0400 Body weight 81.65 kg Kwan Estrella MD Work Phone: [facility] 03-02-2025 10:37-0400 Diastolic blood pressure 63 mm[Hg] Kwan Estrella MD Work Phone: [facility] 03-02-2025 10:37-0400 Heart rate 69 /min Kwan Estrella MD Work Phone: [facility] 03-02-2025 10:37-0400 SaO2% (BldA) [Mass fraction] 99 % Kwan Estrella MD Work Phone: [facility] 03-02-2025 10:37-0400 Systolic blood pressure 113 mm[Hg] Kwan Estrella MD Work Phone: [facility] 02-27-2025 10:56-0400 Body height 180.[address] Felix Montelongo MD Work Phone: [facility] 02-27-2025 10:56-0400 Diastolic blood pressure 78 mm[Hg] Dr. Felix Montelongo MD Work Phone: [facility] 02-27-2025 10:56-0400 Heart rate 62 /min Dr. Felix Montelongo MD Work Phone: [facility] 02-27-2025 10:56-0400 SaO2% (BldA) [Mass fraction] 96 % Dr. Felix Montelongo MD Work Phone: [facility] 02-27-2025 10:56-0400 Systolic blood pressure 168 mm[Hg] Dr. Felix Montelongo MD Work Phone: [facility] 01-22-2025 13:41-0500 Body height 176.5 cm Harjinder Jones MD Work Phone: [facility] 01-22-2025 13:41-0500 Body mass index (BMI) [Ratio] 25.62 kg/m2 Harjinder Jones MD Work Phone: [facility] 01-22-2025 13:41-0500 Body weight 79.83 kg Harjinder Jones MD Work Phone: [facility] 01-22-2025 13:41-0500 Diastolic blood pressure 70 mm[Hg] Harjinder Jones MD Work Phone: [facility] 01-22-2025 13:41-0500 Heart rate 91 /min Harjinder Jones MD Work Phone: [facility] 01-22-2025 13:41-0500 Respiratory rate 14 /min Harjinder Jones MD Work Phone: [facility] 01-22-2025 13:41-0500 SaO2% (BldA) [Mass fraction] 97 % Harjinder Jones MD Work Phone: [facility] 01-22-2025 13:41-0500 Systolic blood pressure 156 mm[Hg] Harjinder Jones MD Work Phone: [facility] 11-30-2024 08:36-0500 Body height 180.[address] Felix Montelongo MD Work Phone: [facility] 11-30-2024 08:36-0500 Body mass index (BMI) [Ratio] 24.1 kg/m2 Dr. Felix Montelongo MD Work Phone: [facility] 11-30-2024 08:36-0500 Body weight 78.[address] Felix Montelongo MD Work Phone: [facility] 11-30-2024 08:36-0500 Diastolic blood pressure 72 mm[Hg] Dr. Felix Montelongo MD Work Phone: [facility] 11-30-2024 08:36-0500 Heart rate 93 /min Dr. Felix Montelongo MD Work Phone: [facility] 11-30-2024 08:36-0500 Respiratory rate 18 /min Dr. Felix Montelongo MD Work Phone: [facility] 11-30-2024 08:36-0500 Systolic blood pressure 138 mm[Hg] Dr. Felix Montelongo MD Work Phone: [facility] 11-01-2024 15:00-0500 Body temperature 97.6 [degF] Dr. Felix Montelongo MD Work Phone: [facility] 11-01-2024 15:00-0500 Diastolic blood pressure 54 mm[Hg] Dr. Felix Montelongo MD Work Phone: [facility] 11-01-2024 15:00-0500 Heart rate 76 /min Dr. Felix Montelongo MD Work Phone: [facility] 11-01-2024 15:00-0500 Respiratory rate 18 /min Dr. Felix Montelongo MD Work Phone: [facility] 11-01-2024 15:00-0500 SaO2% (BldA) [Mass fraction] 94 % Dr. Felix Montelongo MD Work Phone: [facility] 11-01-2024 15:00-0500 Systolic blood pressure 104 mm[Hg] Dr. Felix Montelongo MD Work Phone: [facility] 11-01-2024 06:00-0500 Body mass index (BMI) [Ratio] 24.3 kg/m2 Dr. Felix Montelongo MD Work Phone: [facility] 11-01-2024 06:00-0500 Body weight [address] Felix Montelongo MD Work Phone: [facility] 01-04-2024 15:09-0500 Body height 176.5 cm Rocío Wagner PA-C Work Phone: [facility] 01-04-2024 15:09-0500 Body weight 83.01 kg Rocío Denbow PA-C Work Phone: [facility] 01-04-2024 15:09-0500 Diastolic blood pressure 66 mm[Hg] Rocío Denbow PA-C Work Phone: [facility] 01-04-2024 15:09-0500 Heart rate 73 /min Rocío Denbow PA-C Work Phone: [facility] 01-04-2024 15:09-0500 Respiratory rate 14 /min Rocío Denbow PA-C Work Phone: [facility] 01-04-2024 15:09-0500 SaO2% (BldA) [Mass fraction] 97 % Rocío Denbow PA-C Work Phone: [facility] 01-04-2024 15:09-0500 Systolic blood pressure 122 mm[Hg] Rocío Denbow PA-C Work Phone: [facility] 06-04-2022 08:28-0400 Body height 182.[address] Felix Montelongo Work Phone: [facility] Work Phone: 06-04-2022 08:28-0400 Body mass index (BMI) [Ratio] 26 kg/m2 Dr. Felix Montelongo Work Phone: [facility] Work Phone: 06-04-2022 08:28-0400 Body temperature 96.5 [degF] Dr. Felix Montelongo Work Phone: [facility] Work Phone: 06-04-2022 08:28-0400 Body weight 87.[address] Felix Montelongo Work Phone: [facility] Work Phone: 06-04-2022 08:28-0400 Diastolic blood pressure 76 mm[Hg] Dr. Felix Montelongo Work Phone: [facility] Work Phone: 06-04-2022 08:28-0400 Heart rate 58 /min Dr. Felix Montelongo Work Phone: [facility] Work Phone: 06-04-2022 08:28-0400 Respiratory rate 18 /min Dr. Felix Montelongo Work Phone: [facility] Work Phone: 06-04-2022 08:28-0400 SaO2% (BldA) [Mass fraction] 99 % Dr. Felix Montelongo Work Phone: [facility] Work Phone: 06-04-2022 08:28-0400 Systolic blood pressure 124 mm[Hg] Dr. Felix Montelongo Work Phone: [facility] Work Phone: 06-24-2021 13:44-0400 Body height 182.88 cm Referring Provider Unknown BQ-Sgydpccjgb-Jzpo dview [facility] Work Phone: 06-24-2021 13:44-0400 Body mass index (BMI) [Ratio] 24.36 kg/m2 Referring Provider Unknown MS-Kfokszkkkq-Hlvo dview [facility] Work Phone: 06-24-2021 13:44-0400 Body surface area Derived from formula 2.04 m2 Referring Provider Unknown AH-Hhwtgfbrrr-Lmsn dview [facility] Work Phone: 06-24-2021 13:44-0400 Body weight 81.47 kg Referring Provider Unknown QC-Tpojtrkocv-Qxnk dview [facility] Work Phone: 06-24-2021 13:44-0400 Diastolic blood pressure 75 mm[Hg] Referring Provider Unknown JN-Zcyntvyxby-Bgkz dview [facility] Work Phone: 06-24-2021 13:44-0400 Heart rate 81 /min Referring Provider Unknown JS-Qnztyqqmzs-Rqut dview [facility] Work Phone: 06-24-2021 13:44-0400 Systolic blood pressure 138 mm[Hg] Referring Provider Unknown DW-Rpslrotbxu-Eemb dview [facility] Work Phone: 06-24-2021 13:44-0400 0 1 Referring Provider Unknown OA-Mawdsmkjdi-Tbhz dview [facility] Work Phone: Comment on above: [facility] 05-15-2021 11:29-0400 Body height 182.88 cm Referring Provider Unknown NO-Bgwwyxlgrt-Wzhm na 140 [place] Work Phone: 05-15-2021 11:29-0400 Body mass index (BMI) [Ratio] 24.28 kg/m2 Referring Provider Unknown UJ-Efmnperezc-Qtjr na 140 [place] Work Phone: 05-15-2021 11:29-0400 Body surface area Derived from formula 2.03 m2 Referring Provider Unknown FG-Prbeckaell-Hawm na 140 [place] Work Phone: 05-15-2021 11:29-0400 Body weight 81.19 kg Referring Provider Unknown BY-Jsfmouuesz-Lsmk na 140 [place] Work Phone: 05-15-2021 11:29-0400 Diastolic blood pressure 86 mm[Hg] Referring Provider Unknown FT-Mmmhrxkzld-Pauh na 140 [place] Work Phone: 05-15-2021 11:29-0400 Heart rate 82 /min Referring Provider Unknown TM-Yhalkzuhnm-Bngj na 140 [place] Work Phone: 05-15-2021 11:29-0400 SaO2% (BldA) [Mass fraction] 94 % Referring Provider Unknown YD-Kotydzfgyz-Hvnf na 140 [place] Work Phone: 05-15-2021 11:29-0400 Systolic blood pressure 180 mm[Hg] Referring Provider Unknown SD-Gnwsgbazwr-Kkil na 140 [place] Work Phone: 05-15-2021 11:29-0400 0 1 Referring Provider Unknown QD-Vhypucinor-Hrje na 140 [place] Work Phone: Comment on above: [facility] Encounters Encounter Date Encounter Type Care Provider Facility Start: 08-20-2025 ambulatory Buzz ZHANG Fa cility:[facility] Start: 08-16-2025 ambulatory Buzz ZHANG Fa cility:[facility] Start: 08-01-2025 End: 08-01-2025 Telephone encounter Ag Card Work Phone: [facility] [place] Comment on above: Manager Research Development - O ther Start: 08-01-2025 ambulatory Buzz ZHANG Fa cility:[facility] Start: 07-19-2025 [facility] Start: 07-10-2025 ambulatory [facility] Facility:[facility] Start: 06-22-2025 Registered Referred Buzz Rainey MD [facility] Start: 06-22-2025 End: 06-22-2025 ambulatory [facility] Facility:[facility] Start: 06-21-2025 End: 06-22-2025 Telephone encounter Elana Castañeda MD Work Phone: Neurology Comment on above: Orders Start: 05-30-2025 End: 05-30-[address] Felix Montelongo MD Work Phone: -[facility] Start: 05-30-2025 End: 05-30-2025 Patient encounter procedure Abeba Peacock STATUS CONTROLLER-C -[facility] Work Phone: Start: 05-29-2025 End: 05-29-2025 Telephone encounter Elana Castañeda MD Work Phone: Neurological [facility] Comment on above: Request Rx's fax to Nursing Facility Start: 05-16-2025 End: 05-16-2025 Office outpatient visit 40 minutes Elana Castañeda MD Work Phone: Neurology Comment on above: Parkinson's disease without dyskinesia or fluctuating manifestations (HCC) (Primary Dx); Post-traumatic headache, not intractable, unspecified chronicity pattern; Post herpetic neuralgia Start: 05-16-2025 End: 05-16-2025 ambulatory ELANA CASTAÑEDA Facility:[facility] Start: 05-10-2025 End: 05-10-[address] Felix Montelongo MD Work Phone: [facility] Work Phone: Start: 05-10-2025 End: 05-10-[address] Dirk Camacho MD -[facility] Work Phone: Start: 05-10-2025 End: 05-10-2025 ambulatory Dirk Camacho Facility:[facility] Start: 05-03-2025 ambulatory Efewongbe Redd OLS Fa cility:[facility] Start: 05-03-2025 [facility] Start: 05-02-2025 ambulatory Efewongbe Oleghe OLS Fa cility:[facility] Start: 05-02-2025 [facility] Start: 04-26-2025 ambulatory Efewongbe Oleghe OLS Fa cility:[facility] Start: 04-26-2025 [facility] Start: 04-13-2025 End: 04-13-[address] Felix Montelongo MD Work Phone: [facility] Work Phone: Start: 04-13-2025 End: 04-13-2025 Patient encounter procedure Abeba CERVANTES -[facility] Work Phone: Start: 03-29-2025 ambulatory Efewongbe Olekme OLS Fa cility:[facility] Start: 03-29-2025 [facility] Start: 2025 End: [facility] Start: 2025 End: 2025 Patient encounter procedure Harjinder Jones MD Work Phone: Cardiology Comment on above: Primary hypertension (Primary Dx); 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 Start: 03-02-2025 End: 03-02-2025 Patient encounter procedure Kwan Estrella MD Work Phone: [facility] [place] Comment on above: Coronary artery dise ase involving ekwok coronary artery of ekwok heart, unspecified whether angina present (Primary Dx); PAC (premature atrial contraction); PVC (premature ventricular contraction); Atrial tachycardia (HCC) Start: 03-02-2025 End: 03-02-2025 ambulatory KWAN ESTRELLA Facility:[facility] Start: 03-01-2025 End: 03-01-2025 Departed Referred Buzz LeeShlomo Marianne Potter/[facility] Start: 02-28-2025 End: 03-01-[address] Felix Montelongo MD Work Phone: [facility] Work Phone: Start: 02-28-2025 End: 02-28-2025 Departed Referred Buzz LeeShlomo Potter/Oct[facility] Start: 02-27-2025 End: 02-27-[address] Ozzy Bro MD -[facility][1] Work Phone: Start: 02-27-2025 End: 02-28-2025 ambulatory Buzz ZHANG Facility:[facility] Start: 02-26-2025 End: 02-26-[address] Felix Montelongo MD Work Phone: [facility] Work Phone: Start: 02-26-2025 End: 02-26-2025 Patient encounter procedure Abeba CERVANTES -[facility] Work Phone: Start: 01-31-2025 End: 01-31-[address] Felix Montelongo MD Work Phone: [facility] Work Phone: Start: 01-31-2025 End: 01-31-2025 Departed Referred Buzz LeeShlomo Ashraf Start: 01-31-2025 End: 01-31-2025 ambulatory Buzz ZHANG Facility:[facility] Start: 01-22-2025 End: 01-22-2025 ambulatory [facility] Facility:[facility] Start: 01-22-2025 End: 01-22-2025 ambulatory [facility] Facility:[facility] Start: 01-22-2025 End: 01-22-2025 Patient encounter procedure Harjinder Jones MD Work Phone: Cardiology Comment on above: Palpitations (Primar y Dx); Diastolic congestive heart failure, unspecified HF chronicity (HCC); Atherosclerosis of ekwok coronary artery of ekwok heart without angina pectoris Start: 01-04-2025 End: 01-04-2025 Patient encounter procedure Abeba CERVANTES -[facility] Work Phone: Start: 01-04-2025 End: 01-04-2025 ambulatory Abeba Peacock Facility:[facility] Start: 01-04-2025 Registered Referred Buzz Rainey MD [facility] Start: 12-26-2024 End: 12-26-2024 ambulatory Buzz Rainey Facility:[facility] Start: 12-26-2024 End: 12-26-[address] Buzz Rainey MD -[facility] Work Phone: Start: 12-21-2024 End: 12-21-2024 ambulatory Felixroosevelt Huynhn Facility:[facility] Start: 12-21-2024 End: 12-21-2024 Patient encounter procedure Abeba CERVANTES -[facility] Work Phone: Start: 12-19-2024 End: 12-19-2024 ambulatory Buzz Rainey Facility:[facility] Start: 12-19-2024 End: 12-19-[address] Buzz Rainey MD -[facility] Work Phone: Start: 12-07-2024 ambulatory Buzz ZHANG Fa cility:[facility] Start: 12-07-2024 Registered Referred Buzz Rainey MD -[facility] - [facility] Tariq/Octavia Start: 12-04-2024 End: 12-04-2024 ambulatory Felix Huynhn Facility:[facility] Start: 12-04-2024 End: 12-04-2024 Patient encounter procedure Abeba CERVANTES -[facility] Work Phone: Start: 12-02-2024 ambulatory Rita Calixto STATUS CONTROLLER Fa cility:[facility] Start: 11-30-2024 End: 11-30-[address] Margie Gary MD -[facility] Work Phone: Start: 11-30-2024 End: 11-30-2024 ambulatory Margie Gary [facility] Start: 11-30-2024 ambulatory Efewongbe Oleghe OLS Fa cility:[facility] Start: 11-30-2024 Registered Referred Buzz Huddleston Start: 11-23-2024 ambulatory Efewongbe Oleghe OLS Fa cility:[facility] Start: 11-23-2024 Registered Referred Buzz Huddleston Start: 11-16-2024 ambulatory Efewongbe Oleghe OLS Fa cility:[facility] Start: 11-16-2024 Registered Referred Buzz Huddleston Start: 11-09-2024 ambulatory Efewongbe Oleghe OLS Fa cility:[facility] Start: 11-09-2024 Registered Referred Buzz Huddleston Start: 11-07-2024 End: 11-07-2024 ambulatory Efewongbe Oleghe Facility:[facility] Start: 11-07-2024 End: 11-07-[address] Buzz Rainey MD -[facility] Work Phone: Start: 11-03-2024 ambulatory Efewongbe Oleghe OLS Fa cility:[facility] Start: 11-03-2024 Registered Referred Buzz Huddleston Start: 11-02-2024 End: 11-02-2024 [facility] Start: 11-02-2024 End: 11-02-2024 Patient encounter procedure Abeba Peacock NP-Tae -[facility] Work Phone: Start: 11-01-2024 Non-patient / Non-visit Dr. Sung Richardson [facility] Work Phone: Start: 10-31-2024 [facility] Start: 10-31-2024 Non-patient / Non-visit Dr. Sung Richardson [facility] Work Phone: Start: 10-30-2024 Non-patient / Non-visit Dr. Sung Richardson [facility] Work Phone: Start: 10-29-2024 Non-patient / Non-visit Dr. Marilu Laurent [facility] Work Phone: Start: 10-28-2024 Non-patient / Non-visit Dr. Marilu Laurent [facility] Work Phone: Start: 10-28-2024 [facility] Start: 10-28-2024 Non-patient / Non-visit Dr. Angela gilmore MD -[facility] Start: 10-27-2024 ambulatory Sung Rhodes [facility] Start: 10-27-2024 End: 11-01-2024 Evaluation and management of inpatient Dr. Sung Rhodes DO -[facility] Work Phone: Start: 10-26-2024 End: [...] done about it? Start: 10-25-2024 ambulatory Rita E Durga STATUS CONTROLLER Fa cility:[facility] Start: 10-25-2024 End: 11-21-2024 ambulatory Rita Calixto STATUS CONTROLLER Facility:[facility] Start: 09-11-2024 End: 09-11-2024 Refill Harjinder Jones MD Work Phone: [address] [place] [address] Comment on above: Refill Request Start: 02-01-2024 End: 02-01-2024 ambulatory Rocío FITZPATRICK-Tae Work Phone: Internal Medicine [place] Comment on above: Controlled type 2 di abetes mellitus without complication, without long-term current use of insulin (HCC) (Primary Dx); Acquired hypothyroidism; Stage 3a chronic kidney disease (HCC); Parkinson's disease, unspecified whether dyskinesia present, unspecified whether manifestations fluctuate (HCC) Start: 02-01-2024 End: 02-01-2024 Telemedicine consultation with patient Rocío Wagner PA-C Work Phone: [facility] Start: 01-05-2024 ambulatory Rocío FITZPATRICK-Tae Work Phone: [facility] Medicine [place] Comment on above: Roller thing. Would like a prescription to [facility]. 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); Essential tremor; Post herpetic neuralgia; Stage 3a chronic kidney disease (HCC) Start: 07-07-2023 End: 07-07-2023 ambulatory Elana Castañeda MD Work Phone: Neurology Comment on above: Parkinson disease (H CC) (Primary Dx); Slow transit constipation Start: 07-07-2023 End: 07-07-2023 Telemedicine consultation with patient Elana Castañeda MD Work Phone: [facility] Start: 06-29-2023 End: 06-29-2023 ambulatory [facility] Work Phone: Start: 06-29-2023 End: 06-29-2023 [facility] Start: 02-19-2023 Telephone encounter Elana [...] encounter procedure Dr. Felix Montelongo Work Phone: [facility] Start: 06-04-2022 End: 06-04-[address] Felix Montelongo Work Phone: [facility] Start: 05-26-2022 Telephone encounter Elana whiting MD Work Phone: Neurology Comment on above: Opened In Error Start: 05-17-2022 E-mail encounter fro m caregiver Elana Castañeda MD Work Phone: [facility] Start: 05-17-2022 Patient encounter procedure Elana Castañeda MD Work Phone: Neurology Comment on above: Request an Appointme nt Start: 03-25-2022 Telephone encounter Elana whiting MD Work Phone: Neurology Comment on above: upcoming appointment (pre-rooming phone call) Start: 06-24-2021 Current tobacco non- user cad cap copd pv dm Referring Provider Unknown WS-Rwtpcskdlz-Qyorkyabe [facility] Work Phone: Start: 05-15-2021 Patient encounter procedure Referring Provider Unknown OZ-Aovglzfkaz-Pvfyes 140 [place] Work Phone: Start: 10-25-2018 Ambulatory [facility] Facility :[facility] Start: 02-23-2018 End: 02-23-2018 Ambulatory [facility] Facility:[facility] Start: 01-31-2018 Ambulatory NICOLA PAYNE Facil ity:[facility] Procedures Date Procedure Procedure Detail Performing [...] to lateral CX per Dr. Garfield Dempsey, [facility] Cardiac catheterization Refe rring Provider Unknown Coronary artery bypass graft Referring Provider Unknown Plan of Treatment Date Care Activity Detail Author Start: 03-06-2026 End: 03-06-2026 Patient encounter procedure 03/06/2026 11:00 AM EDT Office Visit [facility] [place] [address] [place] [address] Kwan Estrella MD [address] [place], [place] [id number] 1 yr f/u. eg [facility] [place] Comment on above: 1 yr f/u. eg Start: 10-31-2025 End: 10-31-2025 ambulatory 10/31/2025 7:30 AM EST [facility] [address] [phone] Elana Castañeda MD [address] [id number] [facility] Comment on above: Parkinsons Start: 10-01-2025 End: 10-01-2025 Patient encounter procedure 10/01/2025 10:40 AM EST Office Visit Cardiology [address] [place] [address] Harjinder Jones MD [address] , [address] [place] [id number] 6 month follow up Cardiology Comment on above: 6 month follow up Start: 09-19-2025 End: 09-19-2025 ambulatory 09/19/2025 7:30 AM EDT [facility] [address] [phone] Elana Castañeda MD [address] [address] [facility] Comment on above: [facility] Start: 07-23-2025 Influenza vaccination Influenza Vacc ine (#1) [facility] Start: 03-08-2025 Covid-19 Vaccine ( season) Covid-19 Vaccine ( season) [facility] Start: 2025 End: 2025 Patient encounter procedure 2025 11:00 AM EDT Office Visit Cardiology [address] [place] [address] Harjinder Jones MD [address] [place] [address] 6 weeek follow up Cardiology Comment on above: 6 weeek follow up Start: 01-22-2025 End: 04-23-2025 Natriuretic peptide.B prohormone N-Terminal [Mass/volume] in Serum or Plasma [facility] Comment on above: Expected: 01/22/2025 , Expires: 04/23/2025 Start: 01-22-2025 End: 04-23-2025 Thyrotropin [Units/volume] in Serum or Plasma [facility] Comment on above: Expected: 01/22/2025 , Expires: 04/23/2025 Start: 01-22-2025 End: 01-22-2025 Patient encounter procedure 01/22/2025 1:40 PM EST Office Visit Cardiology [address] [place] [address] Harjinder Jones MD [address] [place] [address] 6 month follow up from appt 11/29/23 Cardiology Comment on above: 6 month follow up [facility] appt 11/29/23 Start: 11-22-2024 Advance Directive Discussion Advance Directive Discussion [facility] Start: 11-22-2024 Medicare Advantage A nnual Wellness Visit Medicare Advantage Annual Wellness Visit [facility] Start: 11-01-2024 Patient discharge [facility] Start: 10-29-2024 Following clinical pathway protocol [facility] Start: 10-28-2024 Following clinical pathway protocol [facility] Start: 10-28-2024 [facility] Start: 10-27-2024 Following clinical pathway protocol [facility] Start: 10-27-2024 Assessment of risk o f venous thromboembolism [facility] Start: 10-27-2024 Care regimes management [facility] Start: 10-27-2024 Insertion of cathete r into peripheral vein [facility] Start: 10-27-2024 Measuring intake and output [facility] Start: 10-27-2024 Notification of physician [facility] Start: 10-27-2024 Providing care accor ding to standard [facility] Start: 10-27-2024 Provision of activit y privileges [facility] Start: 10-27-2024 Referral to occupati onal therapist [facility] Start: 10-27-2024 Referral to service [facility] Start: 10-27-2024 End: 10-27-2024 [facility] Start: 10-27-2024 Admission procedure [facility] Start: 07-23-2024 Covid-19 Vaccine () Covid-19 Vaccine () [facility] Start: 07-23-2024 Influenza vaccination Influenza Vacc ine (#1) [facility] Start: 03-13-2024 End: 06-12-2024 Thyrotropin [Units/volume] in Serum or Plasma TSH BLD Lab Routine Acquired hypothyroidism Expected: 03/13/2024, Expires: 06/12/2024 [facility] Work Phone: Comment on above: Expected: 03/13/2024 , Expires: 06/12/2024 Start: 02-01-2024 End: 05-02-2024 CBC W Auto Differential panel - Blood CBC + DIFF Lab Routine Stage 3a chronic kidney disease (HCC) Controlled type 2 diabetes mellitus without complication, without long-term current use of insulin (HCC) Parkinson's disease, unspecified whether dyskinesia present, unspecified whether manifestations fluctuate (HCC) Expected: 02/01/2024, Expires: 05/02/2024 [facility] Work Phone: Comment on above: Expected: 02/01/2024 , Expires: 05/02/2024 Start: 02-01-2024 End: 05-02-2024 Hemoglobin A1c in Blood HGB A1C Lab Routine Controlled type 2 diabetes mellitus without complication, without long-term current use of insulin (HCC) Expected: 02/01/2024, Expires: 05/02/2024 [facility] Work Phone: Comment on above: Expected: 02/01/2024 , Expires: 05/02/2024 Start: 01-04-2024 End: 04-04-2024 Basic metabolic 2000 panel - Serum or Plasma [facility] Work Phone: Comment on above: Expected: 01/04/2024 , Expires: 04/04/2024 Start: 01-04-2024 End: 04-04-2024 Thyrotropin [Units/volume] in Serum or Plasma [facility] Work Phone: Comment on above: Expected: 01/04/2024 , Expires: 04/04/2024 Start: 11-22-2023 Advance Directive Discussion Advance Directive Discussion [facility] Start: 11-22-2023 Depression Assessment Depression Ass essment [facility] Start: 07-23-2023 Influenza vaccination INFLUENZA (#1) [facility] Start: 06-29-2023 Adult depression screening assessment DEPRESSION SCREENING [facility] Start: 01-19-2023 COVID-19 VACCINE (6 - Pfizer series) COVID-19 VACCINE (6 - Pfizer series) [facility] Start: 11-22-2022 ADVANCE DIRECTIVE DISCUSSION ADVANCE DIRECTIVE DISCUSSION [facility] Start: 11-22-2022 DEPRESSION ASSESSMENT DEPRESSION ASS ESSMENT [facility] Start: 09-24-2022 Adult depression screening assessment DEPRESSION SCREENING [facility] Start: 07-23-2022 Influenza vaccination INFLUENZA (#1) [facility] Start: 06-04-2022 Testosterone measurement [facility] Work Phone: Start: 05-01-2022 COVID-19 VACCINE (5 - Booster for Pfizer series) COVID-19 VACCINE (5 - Booster for Pfizer series) [facility] Start: 12-15-2021 COVID-19 VACCINE (4 - Booster for Pfizer series) COVID-19 VACCINE (4 - Booster for Pfizer series) [facility] Start: 11-22-2021 ADVANCE DIRECTIVE DISCUSSION ADVANCE DIRECTIVE DISCUSSION [facility] Start: 11-22-2021 DEPRESSION ASSESSMENT DEPRESSION ASS ESSMENT [facility] Start: 07-10-2021 ECHO, Provider: AISHA RHODES,MG CARD, Status: Pen, Time: 10:00 AM QB-Gbadtoixcu-Lyeik view [facility] Work Phone: Start: 04-04-2019 Hepatitis B surface antibody level LDL CHOLESTEROL [facility] Start: 10-28-2016 Pneumococcal Vaccine : 50+ (2 of 2 - PPSV23) Pneumococcal Vaccine: 50+ (2 of 2 - PPSV23) [facility] Start: 10-28-2016 Pneumococcal Vaccine : 50+ (2 of 2 - PPSV23, PCV20, or PCV21) Pneumococcal Vaccine: 50+ (2 of 2 - PPSV23, PCV20, or PCV21) [facility] Start: 10-28-2016 Pneumococcal Vaccine : 65+ (2 of 2 - PPSV23 or PCV20) Pneumococcal Vaccine: 65+ (2 of 2 - PPSV23 or PCV20) [facility] Start: 09-13-2012 Urine microalbumin profile DTaP,Tdap,Td Vaccine (1 - Tdap) [facility] Start: 07-11-2010 Urine microalbumin profile DTAP,TDAP,TD (1 - Tdap) [facility] Start: 2007 PNEUMOVAX AGE 65 AND OVER WITH 5YR LOOKBACK (#1) PNEUMOVAX AGE 65 AND OVER WITH 5YR LOOKBACK (#1) [facility] Start: 1992 SHINGRIX VACCINE (1 of 2) HINTON GRIX VACCINE (1 of 2) [facility] Start: 1960 ANNUAL PCP TEAM COLORIST DYER BRYCE DISEASE VISIT ANNUAL PCP TEAM CHRONIC DISEASE VISIT [facility] Start: 1960 Anxiety Screening Anxiety Screening [facility] Start: 1960 Depression Screening Depression Scre ening [facility] Start: 1952 3 comp foot exam completed DIABETIC FOOT EXAM [facility] Start: 1952 Diabetic foot examination Diabetic F oot Exam [facility] Start: 1952 Glaucoma screening Dilated Retinal E xam [facility] Start: 1952 Hepatitis B screening URINE AL BUMIN:CREATININE RATIO [facility] Start: 1952 Hepatitis C antibody , confirmatory test DILATED RETINAL EXAM [facility] Start: 1948 PNEUMOCOCCAL: 65+ (1 - PCV) PNEUMOCOCCAL: 65+ (1 - PCV) [facility] Start: 1947 Hemoglobin A1c measurement HbA1C [facility] Start: 1947 Hemoglobin A1c/Hemoglobin.total in Blood HBA1C [facility] NM Heart Views W str ess and W radionuclide IV [facility] OUTSIDE VENDOR CARDI AC OUTPATIENT EXTENDED RHYTHM RECORDING (WITHOUT TELEMETRY) OUTSIDE VENDOR CARDIAC OUTPATIENT EXTENDED RHYTHM RECORDING (WITHOUT TELEMETRY) Holter Routine Palpitations Ordered: 01/22/2025 [facility] Work Phone: Comment on above: Ordered: 01/22/2025 Patient Education Urinary Tract Infections in Men UTIs Chest Pain UKO Ch [facility] Work Phone: Patient referral [facility] Work Phone: T4 free measurement [facility] Work Phone: Testosterone Free [Mass/volume] in Serum or Plasma [facility] Work Phone: Testosterone measurement [facility] Work Phone: [facility] Immunizations Immunization Date Immunization Notes Care Provider [facility] 09-07-2024 influenza virus vaccine, unspecified formulation Elana Castañeda MD Work Phone: [facility] 09-13-2023 influenza virus vaccine, unspecified formulation Harjinder Jones MD Work Phone: [facility] 09-23-2020 influenza, injectabl e, quadrivalent, preservative free [facility] 09-23-2020 influenza, seasonal, injectable Dr. Felix Montelongo Work Phone: [facility] Work Phone: 09-05-2014 pneumococcal conjuga te vaccine, [address] Felix Montelongo Work Phone: [facility] 07-23-2014 influenza, injectabl e, quadrivalent, preservative free [facility] 07-23-2014 influenza, seasonal, injectable Dr. eFlix Montelongo Work Phone: [facility] Work Phone: 07-10-2010 tetanus and diphther ia toxoids, adsorbed, preservative free, for adult use (2 Lf of tetanus toxoid and 2 Lf of diphtheria toxoid) Elana Castañeda MD Work Phone: [facility] Work Phone: 08-22-2007 pneumococcal conjuga te vaccine, 7 courtney Castañeda MD Work Phone: [facility] Payers Date Payer Category Payer Self-pay [id number] 2022 Medicare [employer] [place] [id number] 2022-Present [phone] [address] [place] [address] HMO [id number] 2022 [place] Care[place] [id number] 2022 Medicare [id number] 2020 Medicare AETNA MEDICARE A ETNA MEDICARE PPO [id number] 2020-Present [phone] [address] [place] [address] PPO [id number] 2016 Medicare [id number] Private Health Insurance ALB [id number] Private Health Insurance ALB VGRSY [id number] Private Health Insurance [id number] Unknown AETNA Unknown [id number] 2.16.840.1.745234.3.579 .2.462 Unknown [id number] 2.16.840.1.653345.3.579 .2.462 Unknown [id number] 2.16.840.1.272892.3.579 .2.462 Unknown [id number] 2.16.840.1.953408.3.579 .2.462 Unknown [id number] 2.16.840.1.374008.3.579 .2.462 Unknown [id number] 2.16.840.1.791902.3.579 .2.462 Unknown [id number] 2.16.840.1.772838.3.579 .2.462 Unknown [id number] 2.16.840.1.930135.3.579 .2.462 Unknown [id number] 2.16.840.1.673060.3.579 .2.462 Unknown [id number] 2.16.840.1.967358.3.579 .2.462 Unknown [id number] 2.16.840.1.869781.3.579 .2.462 Unknown [id number] 2.16.840.1.062448.3.579 .2.462 Unknown [id number] 2.16.840.1.422918.3.579 .2.462 Unknown [id number] 2.16.840.1.081122.3.579 .2.462 Unknown [id number] 2.16.840.1.205784.3.579 .2.462 Unknown [id number] 2.16.840.1.280741.3.579 .2.462 Unknown [id number] 2.16.840.1.835916.3.579 .2.462 Unknown [id number] 2.16.840.1.800969.3.579 .2.462 Unknown [id number] 2.16.840.1.140627.3.579 .2.462 Unknown [id number] 2.16.840.1.526226.3.579 .2.462 Unknown [id number] 2.16.840.1.830153.3.579 .2.462 Unknown [id number] 2.16.840.1.554128.3.579 .2.462 Unknown [id number] 2..840.1.130267.3.579 .2.462 Unknown [id number] 2.840.1.615628.3.579 .2.462 Unknown [id number] 2.840.1.596660.3.579 .2.462 Unknown [id number] 2.840.1.365561.3.579 .2.462 Unknown [id number] 2.840.1.490347.3.579 .2.462 Unknown [id number] 2.840.1.584912.3.579 .2.462 Unknown [id number] 2.840.1.133123.3.579 .2.462 Unknown [id number] 2.840.1.984091.3.579 .2.462 Unknown [id number] 2.840.1.172669.3.579 .2.462 Unknown [id number] 2.16.840.1.322786.3.579 .2.462 Unknown [id number] 2.16840.1.767092.3.579 .2.462 Unknown [id number] 2.16840.1.428962.3.579 .2.462 Unknown [id number] 2.16.840.1.842066.3.579 .2.462 Unknown [id number] 2.16840.1.126616.3.579 .2.462 Unknown [id number] 2.16.840.1.878272.3.579 .2.462 Unknown [id number] 2.16.840.1.509850.3.579 .2.462 Unknown [id number] 2.16.840.1.587801.3.579 .2.462 Unknown [id number] 2..840.1.949968.3.579 .2.462 Social History Date Type Detail Facility Start: 06-29-2022 End: 11-09-2024 Tobacco smoking status NHIS Never smoked tobacco [facility] Start: 10-20-2021 End: 2025 Alcohol intake Lifetime non-drinker (finding) [facility] Start: 09-25-2021 History SDOH Alcohol Frequency 1 [facility] Start: 1940 Sex Assigned At Not on file [facility] Start: 06-04-2022 End: 05-07-2023 Tobacco smoking status PAIS Unknown if ever smoked [facility] Start: 04-21-2021 None [facility] Start: 04-21-2021 Non-smoker [facility] Start: 1940 Sex Assigned At Male W [facility] Start: 06-29-2022 Tobacco use and exposure Smokeless tobacco non-user [facility] Start: 06-19-2022 End: 06-29-2022 Exposure to SARS-CoV-2 (event) Not sure [facility] Start: 06-29-2022 End: 07-07-2023 History of Social function [facility] Start: 06-29-2022 End: 07-07-2023 Tobacco use panel [facility] Start: 10-09-2015 Adult Depression Screening Assessment 2 [facility] Start: 07-28-2018 Spouse/ Signif icant Other [facility] Start: 02-23-2025 Sex Male (finding) [facility] Medical Equipment Procedure Code Equipment Code [...] Assessment Result Facility 11-01-2024 Functional status Ambulates [facility] Work Phone: 04-23-2021 Are you deaf, or do you have serious difficulty hearing No 04/23/2021 5:34 PM Randi Scott RN No [facility] 04-23-2021 Are you blind, or do you have serious difficulty seeing, even when wearing glasses No 04/23/2021 5:34 PM Randi Scott, LINSEY [facility] 04-23-2021 Do you have serious difficulty walking or climbing stairs No 04/23/2021 5:34 PM Randi Scott, LINSEY No [facility] 04-23-2021 Do you have difficul ty dressing or bathing No 04/23/2021 5:34 PM Randi Scott, LINSEY No [facility] 04-23-2021 Because of a physica l, mental, or emotional condition, do you have difficulty doing errands alone such as visiting a physician's office or shopping No 04/23/2021 5:34 PM Randi Scott RN No [facility] Mental Status Date Assessment Result Facility 11-01-2024 Cognitive function Voice/Name [facility] Work Phone: 04-23-2021 Because of a physica l, mental, or emotional condition, do you have serious difficulty concentrating, remembering, or making decisions No 04/23/2021 5:34 PM EDT Randi Archuleta RN No [facility] Clinical Notes 03-25-2022 to 08-01-2025 Telephone Encounter - Cecy Bazan - 08/01/2025 8:17 AM EDTTelephone Encounter - Cecy Bazan - 08/01/2025 8:17 AM EDTTelephone Encounter - Caitlin Tenorio MA - 06/22/2025 1:35 PM EDT Note Date & Type Note Facility 08-01-2025 Telephone encounter Note Received RX request from [employer] for the patient for Dr. Jones Scanned to the chart Mailed back in return envelope. Cecy Bazan [facility] 08-01-2025 Miscellaneous Notes Received RX request from [employer] for the patient for Dr. Jones Scanned to the chart Mailed back in return envelope. Cecy Bazan documented in this encounter [facility] 06-22-2025 Telephone encounter Note Orders placed in outgoing mail in the facility addressed envelope mailed to us from the facility. Mailed out on 06/21/25. [facility] 06-22-2025 Miscellaneous Notes Orders placed in outgoing mail in the facility addressed envelope mailed to us from the facility. Mailed out on 06/21/25. Received and order for increased carbidopa/levodopa from [employer]. Placed on Dr. Castañeda descynthia for signature. documented in this encounter [facility] 06-21-2025 Telephone encounter Note Received and order for increased carbidopa/levodopa from [employer]. Placed on Dr. Castañeda desk for signature. [facility] 05-29-2025 Telephone encounter Note Orders faxed to [facility] and confirmation received [facility] 05-29-2025 Miscellaneous Notes Orders faxed to [facility] and confirmation received Done and in outbox. Orders pended for printing if agreeable. MIKE 05/16/25 NOV 09/19/25 Yocasta (pt's daughter) called to request prescriptions for Carbidopa Levodopa 25/100 mg and Gabapentin 400 mg be faxed to [phone]/[facility]. If needed Yocasta may be reached at [phone]. 05/16/25 FUV w/Dr. Castañeda documented in this encounter [facility] 05-29-2025 Telephone encounter Note Done and in outbox. [facility] 05-29-2025 Telephone encounter Note Orders pended for printing if agreeable. MIKE 05/16/25 NOV 09/19/25 [facility] 05-29-2025 Telephone encounter Note Yocasta (pt's daughter) called to request prescriptions for Carbidopa Levodopa 25/100 mg and Gabapentin 400 mg be faxed to [phone]/[employer]. If needed Yocasta may be reached at [phone]. 05/16/25 FUV w/Dr. Castañeda [facility] 05-16-2025 Instructions Elana Castañeda MD - 05/16/2025 [...] or you can send a message through [employer]. You can also now schedule and select appointments through [employer]. Elana Castañeda MD documented in this encounter [facility] 05-16-2025 Note HNO ID: [id number] Author: ELANA CASTAÑEDA MD Service: ? Author Type: Physician Type: Progress Notes Filed: 05/16/2025 12:54 Note Text: [facility] - FOLLOW UP EVALUATION Recording using [employer] software for draft documentation of the visit was discussed with the patient/authorized access services representative; all questions welcomed and answered. Patient/authorized access services representative agreed to proceed Vincent Espinosa MD [address] [facility] [address] Dear Vincent Espinosa MD: I had the pleasure of seeing Mr. Kline for follow-up today. As you know he is a 85 year old right-handed male with a history of ET/PD since 2016(?) . 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 Subjective Previous Plan- [...] PROMIS scale: PROM (more content not included)... [facility] 05-16-2025 History of Presen t illness Narrative [facility] - FOLLOW UP EVALUATION Recording using ambient [employer] software for draft documentation of the visit was discussed with the patient/authorized access services representative; all questions welcomed and answered. Patient/authorized access services representative agreed to proceed Vincent Espinosa MD [address] [facility] [address] Dear Vincent Espinosa MD: I had the pleasure of seeing [...] Row Office Visit from 05/16/2025 in Neurology [facility] from 07/07/2023 in Neurology [facility] [...] or around: 08/16/25 Level of service : 12518 (40-68 min). Time spent 58 min on the day of service, which included preparing to see the patient, [id number] patient care, completing clinical documentation, performing a [...] Elana Castañeda MD documented in this encounter [facility] 05-11-2025 Radiology Diagnostic study note [facility] Imaging Services [address] [place] [address] [id number] Brain/Head without Contrast MR#: [id number] Acct: [id number] Name: FLEX KLINE Rep #: [id number] : 1940 M 85 From: Michelle Ramirez MD PCP: Dr. Felix Montelongo MD Status: REG CL I Study:Brain/Head without Contrast Date of Exa m: 05/10/25 Exam# [id number] Ordering Dr: Fatuma Camacho MD PROCEDURE: BRAIN/HEAD [...] age matches brain involutional changes Reading Location: [place] [address] CC: Dr. Dirk Camacho MD; Dr. Felix Montelongo MD ~ Torch Straightener: Signed [facility] 2025 Note HNO ID: [id number] Author: HARJINDER JONES MD Service: ? Author Type: Physician Type: Progress Notes Filed: 2025 12:16 Note Text: Harjinder Jones MD Interventional Cardiology [address] [place] [id number] Chief Complaint Patient presents with: Follow Up: 6 week follow up, c/o chest pain HISTORY OF PRESENT ILLNESS: Mr. Kline is a 85 year old male seen in my office today for follow-up patient had a prior history of severe ekwok coronary artery disease with prior history of [...] for this visit. (more content not included)... [facility] 2025 History of Presen t illness Narrative Images from the original note were not included. Harjinder Jones MD Interventional Cardiology [address] [place] [phone] Chief Complaint Patient presents with: Follow Up: 6 week follow up, c/o chest pain HISTORY OF PRESENT ILLNESS: Mr. Kline is a 85 year old male seen in my office today for follow-up patient had a prior history of severe ekwok coronary artery disease with prior history of [...] Value 01/22/2025 12.8 07/14/2018 Test sent to [facility]. Hematocrit (%) Date Value 01/22/2025 37.7 07/14/2018 Test sent to [facility]. WBC (k/uL) Date Value 01/22/2025 5.09 07/14/2018 Test sent to [facility]. Platelet Count (k/uL) Date Value 01/22/2025 216 07/14/2018 Test sent to [facility]. BMP: Glucose (mg/dL) Date Value 01/22/2025 [...] Ref Range Status 02/23/2018 Test sent to [facility]. <200 mg/dL Final Comment: Account Credited HIDE HDL Cholesterol Date Value Ref Range Status 02/23/2018 Test sent to [facility]. >39 mg/dL Final Comment: Account Credited HIDE LDL Cholesterol Date Value Ref Range Status 02/23/2018 Test sent to [facility]. <100 mg/dL Final Comment: Account Credited HIDE Triglyceride Date Value Ref Range Status 02/23/2018 Test sent to [facility]. <150 mg/dL Final Comment: Account Credited [...] aerobic exercise 2. 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 - ICD9: 414.01, [...] correct any errors. documented in this encounter [facility] 03-02-2025 Instructions Kwan Estrella MD - 03/02/2025 [...] at that time. documented in this encounter [facility] 03-02-2025 History of Presen t illness Narrative Images from the original note were not included. [facility] [place] [facility] SECTION OF CARDIAC PACING and ELECTROPHYSIOLOGY OUTPATIENT VISIT DATE March 02, 2025 OUTPATIENT VISIT TYPE NEW PRIMARY CARE PHYSICIAN: Vincent Espinosa [address] [place] [address] REFERRING PHYSICIAN: Harjinder Jones [address] [facility], [address] [facility] [address] chief complaint on file. HISTORY OF PRESENT [...] currently a resident at [facility]. Had a recent UTI in 10/2024, still [...] fibrillation ECG 11/29/23 - SR 77 bpm KS 210 QRS 102 QT/c 364 411 PVC [...] rare (<1.0%). Isolated VEs were rare (<1.0%, 10355), VE Couplets were rare (<1.0%, 63), and [...] system(341.8) Peripheral vascular disease, unspecified ([facility]) Type II or unspecified type diabetes [...] hands EKG 03/02/25 .Sinus rhythm 68 bpm KS 264ms First degree AVB QRS 96ms QT/c [...] MD This note was partially generated using [employer] voice recognition system. documented in this encounter [facility] 03-02-2025 Note HNO ID: [id number] Author: KWAN ESTRELLA MD Service: ? Author Type: Physician Type: Progress Notes Filed: 03/02/2025 11:18 Note Text: [facility] [place] [facility] SECTION OF CARDIAC PACING and ELECTROPHYSIOLOGY OUTPATIENT VISIT DATE March 02, 2025 OUTPATIENT VISIT TYPE NEW PRIMARY CARE PHYSICIAN: Vincent Espinosa [address] [place] [address] REFERRING PHYSICIAN: Harjinder Jones [address] [facility], [address] [facility] [address] chief complaint on file. HISTORY OF PRESENT [...] currently a resident at [facility]. Had a recent UTI in 10/2024, still [...] mostly sedentary Father had atrial fibrillation ECG 1/8/24 - SR 77 bpm KS 210 QRS 102 QT/c 364 411 PVC [...] rare (<1.0%). Isolated VEs were rare (<1.0%, 28781), VE Couplets were rare (<1.0%, 63), and [...] Diagnosis Date CIDP (chronic inflammatory demyelinating polyneuropathy) ([facility]) Coronary atherosclerosis Diabetes ([facility]) Herpes zoster with other nervous system complications(053.19) Hyperlipidemia Hypertrophy of prostate without urinary obstruction and other lower urinary tract symptoms (LUTS) Hyposmolality and/or hyponatremia Intervertebral lumbar disc disorder with myelopathy, lumbar region Mononeuritis of unspecified site 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) Peripheral vascular disease, unspecified ([facility]) Type II or unspecified type diabetes [...] No social hist (more content not included)... [facility] 02-27-2025 Evaluation note Diagnosis Onset Date Resolution Type 2 diabetes mellitus acute February 27, 2025 10:51am CAD (coronary artery disease) chronic February 27, 2025 10:51am CKD (chronic kidney disease) chronic February 27, 2025 10:51am [facility] [employer] [facility] Work Phone: [phone] 322-834703-03-2025 NoteHNO ID: [id number] Author: BLANCA MARCELINO LPN Service: ? Author Type: LICENSED NURSE Type: Progress Notes Filed: 01/22/2025 15:05 Note Text: EVENT MONITOR DISPOSABLE PATCH INSTRUCTIONS Patient Name: Flex J [facility] Number: [id number] Skin prepped and cleansed with alcohol Patch secured to prepped area Monitor Activated Serial #: [id number] Patient Instructed: Prescribed order timeframe Bathing guidelines Usage of event button and diary documentation Return of monitor at the end of prescribed order Call with problems [phone] or [phone]. [phone] Patient expresses a good understanding of instructions [facility] History of Present illness Narrative* Blanca Marcelino LPN - 01/22/2025 3:04 PM EST EVENT MONITOR DISPOSABLE PATCH INSTRUCTIONS Patient Name: Flex J [facility] Number: [id number] Skin prepped and cleansed with alcohol Patch secured to prepped area Monitor Activated Serial #: [id number] Patient Instructed: Prescribed order timeframe Bathing guidelines Usage of event button and diary documentation Return of monitor at the end of prescribed order Call with problems [phone] or [phone]. [phone] Patient expresses a good understanding of instructions Blanca Marcelino LPN * Harjinder Jones MD - 01/22/2025 2:34 PM EST Images from the original note were not included. Harjinder Jones MD Interventional Cardiology [address] [place] [address] [phone] Chief Complaint Patient presents with: Follow Up: [...] Value 04/22/2021 12.5 07/14/2018 Test sent to [facility]. Hematocrit (%) Date Value 04/22/2021 36.8 07/14/2018 Test sent to [facility]. WBC (k/uL) Date Value 04/22/2021 5.50 07/14/2018 Test sent to [facility]. Platelet Count (k/uL) Date Value 04/22/2021 197 07/14/2018 Test sent to [facility]. BMP: Glucose (mg/dL) Date Value 01/04/2024 [...] Ref Range Status 02/23/2018 Test sent to [facility]. <200 mg/dL Final Comment: Account Credited HIDE HDL Cholesterol Date Value Ref Range Status 02/23/2018 Test sent to [facility]. >39 mg/dL Final Comment: Account Credited HIDE LDL Cholesterol Date Value Ref Range Status 02/23/2018 Test sent to [facility]. <100 mg/dL Final Comment: Account Credited [facility]IDE Triglyceride Date Value Ref Range Status 02/23/2018 Test sent to [facility]. <150 mg/dL Final Comment: Account Credited [...] to check his BMP 3. Atherosclerosis of ekwok coronary artery of ekwok heart without angina pectoris - ICD9: 414.01, ICD10: I25.10 Stable status prior history of bypass surgery Harjinder Jones MD Follow up plannin weeks Electronically signed by Harjinder Jones MD on January 22, 2025, 2:34 PM The above note was partially created using a dictation recognition software. A reasonable attempt has been made to correct any errors. [facility] NoteHNO ID: [id number] Author: HARJINDER JONES MD Service: ? Author Type: Physician Type: Progress Notes Filed: 01/22/2025 14:39 Note Text: Harjinder Jones MD Interventional Cardiology [address] [place] [address] [phone] Chief Complaint Patient presents with: Follow Up: [...] loss, nosebleeds, sinus concepcion (more content not included)...[facility] 01-22-2025 NoteHNO ID: [id number] Author: HARJINDER JONES MD Service: ? Author [...] rare (<1.0%). Isolated VEs were rare (<1.0%, 55655), VE Couplets were rare (<1.0%, 63), and VE Triplets were rare (<1.0%, 19). Ventricular Bigeminy and Trigeminy were present. Difficulty discerning atrial activity making definitive diagnosis difficult to ascertain.[facility]01-09-2025 Evaluation note* Diagnosis Onset Date Resolution Status Admit Date CAD (coronary artery disease) chronic November 30 9:59am Chest pain chronic November 30, 025 9:59am Diabetes chronic November 30, 025 9:59am Diastolic dysfunction chronic Rico uary [...] kidney disease) chronic February 27, 2025 10:51am [facility] Work Phone: [phone]) 279-263512-20-2024 Telephone encounter Note* Telephone Encounter - Florence Reed MA - 11/10/2024 11:09 AM EST Called pt to offer appt on cancellation list. Pt is currently in rehab facility and unable to come.Will call once he is out if needs to be seen sooner. Florence Reed MA [facility]12-20-2024 Miscellaneous Notes* Telephone Encounter - Florence Reed [...] Ana Laura Rosario RN [facility] Telephone encounter Note * Telephone Encounter - Ana Laura Rosario RN - 11/03/2024 9:09 AM EST Called and left VM asking the patient to call back to schedule and office visit. If patient calls back please offer 11/13/24 at 1:20pm or 11/27/24 at 1:20pm and ask for an update on the patient's symptoms. Ana Laura Rosario RN [facility]12-11-2024 [facility] Medical Records Department [address] [place] [address] Discharge Summary 11/01/24 1501 MR#: [id number] Acct: [id number] Name: FLEX KLINE Rep #: [id number] : 1940 84 From: Sung Rhodes DO PCP: Dr. Felix Montelongo MD Status:ADM [id number] Prov[facility] Date of Admission: 10/27/24 Primary Care [...] on Synthroid VTE prophylaxis: LMWH Disposition: to [facility] pending insurance authorization. 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 Please Advise Ana Laura Rosario, RN [facility]10-21-2024 Telephone encounter Note* Telephone Encounter - Ruth [...] Ruth Ann September 11, 2024 8:46 AM [facility]10-21-2024 Miscellaneous Notes* Telephone Encounter - Ruth Ann [...] 11, 2024 8:46 AM documented in this encounterAvita Health System03-12-2024 History of Present illness Narrative* Rocío Wagner [...] visit. Either the patient or their legal access services representative has been informed of the [...] Parkinson's and associated tremors. Last A1c at [facility] was in 07/14 was 6.9. REVIEW [...] system(341.8) Peripheral vascular disease, unspecified ([facility]) Type II or unspecified type diabetes [...] care. Rocío Wagner PA-C documented in this encounterAvita Health System02-27-2024 Miscellaneous Notes* Telephone Encounter - Juliana Choi [...] pt. Florence Santos LPN documented in this encounterAvita Health System02-14-2024 Miscellaneous Notes* Telephone Encounter - Rocío Wagner [...] prescription? Rocío Wagner PA-C documented in this encounterAvita Health System02-13-2024 History of Present illness Narrative* Rocío Wagner PA-C - 01/04/2024 3:13 PM EST CC: Patient presents with: New Patient HPI Flex Kline is a 83 year old male who presents today to [facility] care. Had comprehensive blood panel done about [...] GFR 46 from most recent labs through [facility] in 07/14. Does not see a power generation technician. REVIEW OF SYSTEMS See HPI All other [...] long-term current use of insulin ([facility]) - ICD9: 250.00, ICD10: E11.9 (primary [...] PNL 4. CIDP (chronic inflammatory demyelinating polyneuropathy) ([facility]) - ICD9: 357.81, ICD10: G61.81 See [...] plan. Rocío Wagner PA-C documented in this encounterAvita Health System08-16-2023 Instructions* Patient Instructions* Elana Castañeda MD - [...] or you can send a message through [employer]. You can also now schedule and select appointments through [employer]. Elana Castañeda MD Constipation and Other Gastrointestinal [...] future constipation. Treatments fall into two categories: rtwu-pmh-zskfmve and prescription therapies. Remember: consult with your [...] day and your own convenience and preference. Yzjp-sxr-Ldiozvy Products Rswh-lqw-idagsiy treatments for constipation can be purchased at [...] It also comes as a capsule (Senna [place] Smooth Move ). ving with PD Constipation [...] easier to pass. These can be used care home but should not be used in combination [...] after other remedies have failed. Among the tmfo-xnk-oynvqqe laxatives, they are most likely to cause [...] psyllium (Perdiem ). Common Side Effects of Ejll-doj-Hnhsoug Products for Constipation Emollient (Stool Softeners) Skin [...] any side effects listed. Prescription Products When rsqu-rao-chrtlew remedies fail, your healthcare provider may recommend [...] Stimulant X Bisacodyl (Dulcolax ) Stimulant X Seaside Oil Stimulant X Cellulose (Unifiber ) Bulk [...] ) Stimulant X Adapted from: [facility] Website, accessed March 17, 2016, www.[employer]/Instacart/druginformation/ [id number] Special Precautions For your safety, consult your [...] authors: Candido Guzman, Ph.D., R.N., and Arina Cramer.S.N., C.R.N.P. Constipation Tracker Day/Date Time Food(s) Eaten Activities Emotional Status Stool Description Feel free to photocopy this page and use it throughout the year to track your symptoms and share with your doctor. This is a patient education material provided by the Parkinson s [employer]. For more information and resources see https://www.parkinson.org/. [facility] is a Center of Excellence for the Parkinson s Foundation. documented in this encounterAvita Health System08-16-2023 History of Present illness Narrative* Elana Castañeda MD - 07/07/2023 7:02 AM EDT [facility] - FOLLOW UP EVALUATION - VIRTUAL VISIT Felix Montelongo MD [address] [facility] [address] Dear Felix Montelongo MD: I had the pleasure of seeing Mr. Kline for follow-up today. As you know he is a 83 year old right-handed male with a history of ET/PD since 2016(?) . Also with CIDP diagnosed 2012. Off treatment since 2017. He is seen alone. We had a visit using: [employer] I have communicated my name and active licensure. The patient's identity and physical location wereverified at the time of this visit. Either the patient or their legal access services representative has been informed of the [...] to schedule and only given options of [place] or [place]. Open to [facility]. Constipation. Prunes used [...] using the PROMIS scale: PROMIS-10 Flowsheet Row [facility] from 07/07/2023 in [facility] from 12/18/2022 in [facility] [...] 1 1 1 Level of service : 30522 (40-54 min). Time spent 41 min on the day of service, which included preparing to see the patient, ysnc-gh-ecso patient care, completing clinical documentation, and counseling and educating the patient/family/caregiver. Thank you for allowing me to be part of the clinical care of this patient! I look forward to continued participation in the patient s care with you. Please do not hesitate to call with any questions. Sincerely, Elana Castañeda MD documented in this encounterAvita Health System03-31-2023 Miscellaneous Notes* Telephone Encounter - Caitlin Tenorio MA - 02/19/2023 7:56 AM EDT Message therapy order mailed to patient home per Dr. Castañeda request documented in this encounterAvita Health System03-31-2023 Instructions* Patient Instructions* Elana Castañeda MD - [...] or you can send a message through [employer]. You can also now schedule and select appointments through [employer]. Elana Castañeda MD documented in this encounterAvita Health System03-31-2023 History of Present illness Narrative* Elana Castañeda MD - 02/19/2023 7:02 AM EDT [facility] - FOLLOW UP EVALUATION - VIRTUAL VISIT Felix Montelongo MD, MD [address] [facility] [address] Dear Felix Montelongo MD, MD: I had the pleasure of seeing Mr. Kline for follow-up today. As you know he is a 82 year old right-handed male with a history of ET/PD since 2015(?) . 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 We had a visit using: [employer] I have communicated my name and active licensure. The patient's identity and physical location wereverified at the time of this visit. Either the patient or their legal access services representative has been informed of the [...] 1 1 1 Level of service : 69483 ( 30-39 min). Time spent 30 min on the day of service, which included preparing to see the patient, levh-ct-napz patient care, completing clinical documentation, counseling and educating the patient/family/caregiver, and ordering medications, tests, or procedures. Thank you for allowing me to be part of the clinical care of this patient! I look forward to continued participation in the patient s care with you. Please do not hesitate to call with any questions. Sincerely, Elana Castañeda MD documented in this encounterAvita Health System01-27-2023 Instructions* Patient Instructions* Elana Castañeda MD - [...] or you can send a message through [employer]. You can also now schedule and select appointments through [employer]. Elana Castañeda MD documented in this encounterAvita Health System01-27-2023 History of Present illness Narrative* Elana Castañeda MD - 12/18/2022 6:56 AM EST [facility] - FOLLOW UP EVALUATION - VIRTUAL VISIT Felix Montelongo MD, [address] [facility] [address] Dear Felix Montelongo MD, MD: I had the pleasure of seeing Mr. Kline for follow-up today. As you know he is a 82 year old right-handed male with a history of ET/PD since 2016(?) . 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 He is seen with a daughter. We had a visit using: [employer] I received consent from the patient to [...] 1 1 1 Level of service : 82280 (40-54 min). Time spent 51 min on the day of service, which included preparing to see the patient, hido-vp-syrb patient care, completing clinical documentation, and counseling and educating the patient/family/caregiver. Thank you for allowing me to be part of the clinical care of this patient! I look forward to continued participation in the patient s care with you. Please do not hesitate to call with any questions. Sincerely, Elana Castañeda MD documented in this encounterAvita Health System12-21-2022 Miscellaneous Notes* Telephone Encounter - Jazzy Bonds - 11/11/2022 9:17 AM EST Last FUV Jun 2022 with ANNA. Next FUV 12/17/22 with ANNA. documented in this encounterAvita Health System07-05-2022 Miscellaneous Notes* Telephone Encounter - Marlena Moya - 05/26/2022 1:[address] Castañeda had an opening on 06/03/22. Added patient to schedule; notified him of appt details via voicemail and [employer] message. Marlena Moya * Telephone Encounter - [...] 9:06 AM Routing comment documented in this encounterAvita Health System05-04-2022 Miscellaneous Notes* Telephone Encounter - Sharron Higginbotham MA - 03/25/2022 1:55 PM EDT Called patient to get the pre-rooming intake. I left voice mail for a returned call to the office to have this completed. If patient returns call please transfer call to myself or another clinical staff member. Thanks! Sharron Higginbotham MA documented in this encounterAvita Health SystemEvaluation note* Diagnosis Onset Date Resolution Status CKD (chronic kidney disease) chronic Edema chronic Fatigue chronic HTN (hypertension) chronic Hypothyroidism chronic Type II diabetes mellitus, uncontrolled chronic [facility] Work Phone: Evaluation note* Diagnosis Parkinson disease (HCC)- Primary Paralysis agitans Essential tremor Essential and other specified forms of tremor [facility]* Diagnosis Parkinson disease (HCC)- Primary Paralysis agitans Muscle stiffness Unspecified disorder of muscle, ligament, and fascia Muscle pain Mylagia and myositis, unspecified documented in this encounter [facility]* Diagnosis Parkinson disease (HCC)- Primary Paralysis agitans Slow transit constipation documented in this encounter [facility] noteNo assessment information availableWCleveland Clinic Med[facility] Work Phone: Evaluation note* Diagnosis Controlled type 2 diabetes mellitus without complication, without long-term current use of insulin ([facility])- Primary Acquired hypothyroidism Unspecified hypothyroidism Parkinson's disease, unspecified whether dyskinesia present, unspecified whether manifestations fluctuate 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 Essential tremor Essential and other specified forms of tremor 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 Stage 3a chronic kidney disease (HCC) documented in this encounter [facility]* Diagnosis Controlled type 2 diabetes mellitus without complication, without long-term current use of insulin (HCC)- Primary Acquired hypothyroidism Unspecified hypothyroidism Stage 3a chronic kidney disease (HCC) Parkinson's disease, unspecified whether dyskinesia present, unspecified whether manifestations fluctuate (HCC) documented in this encounter [facility]* Diagnosis Palpitations- Primary Diastolic congestive heart failure, unspecified HF chronicity (HCC) Atherosclerosis of [place] coronary artery of [place] heart without angina pectoris documented in this encounter [facility]* Diagnosis Coronary artery disease involving [place] coronary artery of [place] heart, unspecified whether angina present- Primary PAC (premature atrial contraction) Supraventricular premature beats PVC (premature ventricular contraction) Other premature beats Atrial tachycardia (HCC) Other specified cardiac dysrhythmias documented in this encounter [facility] note* Diagnosis Primary hypertension- Primary Unspecified essential hypertension 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 documented in this encounter [facility]* Diagnosis Parkinson's disease without dyskinesia or fluctuating manifestations (HCC)- Primary Post-traumatic headache, not intractable, unspecified chronicity pattern 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 documented in this encounter [facility]* Diagnosis Parkinson's disease without dyskinesia or fluctuating manifestations (HCC) 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 documented in this encounter [facility] SystemRes[facility] (narrative)No reason for referral information availableWCleveland Clinic Medina Hospital Work Phone: Summary Purpose Family History [...] FoundDocuments on File Type Date Recorded Patient Certified Medical Biller Expl anation Advance Directive(s) 04/18/2021 8:33 AM Advance Directive(s) 02/24/2016 11:33 AM Advance Directive(s) 02/18/2016 4:39 PM Advance Directive Response Recorded Date/ Time Advance Directives No March 14 2:48pm Living Will No April 21, 2021 8 :41pm Power of Commercial Subcontractor No April 21, 2021 8:41pm Advance Directive Response Recorded Date/ Time Advance Directives No March 14 1:48pm Living Will No April 21, 2021 7 :41pm Power of Commercial Subcontractor No April 21, 2021 7:41pm Advance Directive Response Recorded Date/ Time Living Will No October 27 6:24pm Do you have a Healthcare Power of Commercial Subcontractor? No October 27, 2024 6:24pm Advance Directives No March 14 2:48pm Advance Directive Response Recorded Date/ Time Advance Directives No March 14 2:48pm Chief Complaint and Reason for Visit Chief Complaint STATUS CONTROLLER. RE-EST. DIABETES INT LABS Reason for Visit [...] WORK November 30, 2024 5: 15am S/P [facility] 11/01November 30, 2024 9: 59am ADMISSION EXAM December 04, 2024 1 2:52pm [facility] WORK December 07, 2024 5:00am ADMISSION EXAM December 19, 2024 1 :28pm NEW CONCERN December 21, 2024 2 :05pm NEW CONCERN December 26, 2024 1 :17pm [facility] WORK January 04 5:00am NEW CONCERN January 04, 2025 12:35pm [facility] WORK January 31, 2025 5 :00am [...] ADMISSION EXAM December 04, 2024 1 2:52pm [facility] WORK December 07, 2024 5:00am ADMISSION EXAM December 19, 2024 1 :28pm NEW CONCERN December 21, 2024 2 :05pm NEW CONCERN December 26, 2024 1 :17pm [facility] WORK January 04 5:00am NEW CONCERN January 04, 2025 12:35pm [facility] WORK January 31, 2025 5 :00am 21 M FU RS 05 CX 10/31February 27 10:51am [facility] WORK February 28, 2025 5: 00am [...] 27, 2025 10:51am Chief Complaint Admit Date [facility] WORK December 07, 2024 5:00am ADMISSION EXAM December 19, 2024 1 :28pm NEW CONCERN December 21, 2024 2 :05pm NEW CONCERN December 26, 2024 1 :17pm [facility] WORK January 04 5:00am NEW CONCERN January 04, 2025 12:35pm [facility] WORK January 31, 2025 5 :00am NEW CONCERN February 26, 2025 3:51 pm 21 M FU RS 10/26 CX 10/31February 27 10:51am [facility] WORK February 28, 2025 5: 00am LABWORK March 01, 2025 5:0 0am Reason for Visit Admit Date Type 2 diabetes mellitus February 27, 2025 10:51am CAD (coronary artery disease) February 27, 2025 10:51am CKD (chronic kidney disease) February 27, 2025 10:51am Chief Complaint Admit Date [facility] WORK January 31, 2025 5 :00am NEW CONCERN February 26, 2025 3:51 pm 21 M FU RS 10/26 CX 10/31February 27 10:51am [facility] WORK February 28, 2025 5: 00am LABWORK March 01, 2025 5:0 0am [facility] WORK March 29, 2025 4:00 am NEW CONCERN April 13, 2025 2:17p m [facility] WORK April 26, 2025 5:0 0am LABOWRK May 02, 2025 5:00 am LABWORK May 03, 2025 5:00 am Concussion with loss of consciousness of unspecifi May 10, 2025 6:29pm Chief Complaint Admit Date [facility] WORK March 29, 2025 4:00 am NEW CONCERN April 13, 2025 2:17p m [facility] WORK April 26, 2025 5:0 0am LABOWRK May 02, 2025 5:00 am LABWORK May 03, 2025 5:00 am Concussion with loss of consciousness of unspecifi May 10, 2025 6:29pm Admission Exam May 30, 2025 6:47p m LABWORK June 22, 2025 5:0 0am Reason for Referral Specialty Diagnoses / Procedures Referred By Scottie t Referred To Contact Diagnoses Parkinson disease ([facility]) Essential tremor Procedures PROVIDER ORDERED FOLLOW UP OFFICE/OUTPATIENT [facility] MDM 60-74 MINUTES Elana Castañeda MD [address] [address] Referral ID Status Reason Start Date Expiration Date Visits Requested Visits Authorized [id number] Pending Review PCP Requested Referral 02/15/2023 12/18/2023 1 1 Specialty Diagnoses / Procedures Referred By Contac t Referred To Contact Diagnoses Parkinson disease (HCC) Procedures PROVIDER ORDERED FOLLOW UP OFFICE/OUTPATIENT [facility] 60-74 MINUTES Elana Castañeda MD [address] [place] [address] Referral ID Status Reason Start Date Expiration Date Visits Requested Visits Authorized [id number] Pending Review PCP Requested Referral 05/21/2023 02/19/2024 1 1 Specialty Diagnoses / Procedures Referred By Contac t Referred To Contact Diagnoses Parkinson disease ([facility]) Muscle stiffness Muscle pain Procedures CONSULT TO MASSAGE THERAPY OFFICE/OUTPATIENT [facility] MDM 60-74 MINUTES Elana Castañeda MD [address] [place] [address] Referral ID Status Reason Start Date Expiration Date Visits Requested Visits Authorized [id number] Pending Review PCP Requested Referral 02/19/2023 02/19/2024 1 1 Referral ID Status Reason Start Date Expiration Date Visits Requested Visits Authorized [id number] Pending Review PCP Requested Referral 07/06/2024 1 1 Specialty Diagnoses / Procedures Referred By Contac t Referred To Contact Diagnoses Parkinson disease (HCC) Procedures CONSULT TO MASSAGE THERAPY OFFICE/OUTPATIENT [facility] MDM 60-74 MINUTES Elana Castañeda MD [address] [address] Referral ID Status Reason Start Date Expiration Date Visits Requested Visits Authorized [id number] Pending Review PCP Requested Referral 07/07/2023 07/06/2024 1 1 Specialty Diagnoses / Procedures Referred By Contac t Referred To Contact [facility] Diagnoses Parkinson disease (HCC) Procedures CONSULT TO PHYSICAL THERAPY PHYSICAL THERAPY EVALUATION HIGH COMPLEX 45 MINS Elana Castañeda MD [address] [facility] [address] [place] [address] [facility] [place] [address] [place] [address] Referral ID Status Reason Start Date Expiration Date Visits Requested Visits Authorized [id number] Pending Review Auto-Generat ed Referral 07/07/2023 07/06/2024 1 1 Additional Source Comments (unrecognized sect ion and content) No Status Records FoundNo Status Records FoundNo Status Records FoundNo Status Records FoundNo Status Records FoundNo Status Records Found INFORMATION SOURCE (unrecogn ized section and content) DATE CREATED AUTHOR 05/12/2018 [facility] DATE CREATED AUTHOR AUTHOR'S ORGANIZ ATION 07/11/2021 [facility] DATE CREATED AUTHOR AUTHOR'S ORGANIZ ATION 07/21/2021 [facility] DATE CREATED AUTHOR AUTHOR'S ORGANIZ ATION 06/24/2025 [facility] DATE CREATED AUTHOR AUTHOR'S ORGANIZ ATION 08/03/2025 [facility] DATE CREATED AUTHOR AUTHOR'S ORGANIZ ATION 09/23/2025 [facility] Comments (unrecognize d section and content) In the event this informatio n is protected by the Federal Confidentiality of Alcohol and Drug Abuse Patient Records regulations: The Federal rules restrict any use of the information to criminally investigate or prosecute any alcohol or drug abuse patient.[facility] SystemIn the event this information is protected by the Federal Confidentiality of Alcohol and Drug Abuse Patient Records regulations: The Federal rules restrict any use of the information to criminally investigate or prosecute any alcohol or drug abuse patient.[facility] SystemIn the event this information is protected by the Federal Confidentiality of Alcohol and Drug Abuse Patient Records regulations: The Federal rules restrict any use of the information to criminally investigate or prosecute any alcohol or drug abuse patient.[facility] SystemIn the event this information is protected by the Federal Confidentiality of Alcohol and Drug Abuse Patient Records regulations: The Federal rules restrict any use of the information to criminally investigate or prosecute any alcohol or drug abuse patient.[facility] SystemIn the event this information is protected by the Federal Confidentiality of Alcohol and Drug Abuse Patient Records regulations: The Federal rules restrict any use of the information to criminally investigate or prosecute any alcohol or drug abuse patient.[facility] SystemIn the event this information is protected by the Federal Confidentiality of Alcohol and Drug Abuse Patient Records regulations: The Federal rules restrict any use of the information to criminally investigate or prosecute any alcohol or drug abuse patient.[facility] SystemIn the event this information is protected by the Federal Confidentiality of Alcohol and Drug Abuse Patient Records regulations: The Federal rules restrict any use of the information to criminally investigate or prosecute any alcohol or drug abuse patient.[facility] SystemIn the event this information is protected by the Federal Confidentiality of Alcohol and Drug Abuse Patient Records regulations: The Federal rules restrict any use of the information to criminally investigate or prosecute any alcohol or drug abuse patient.[facility] SystemIn the event this information is protected by the Federal Confidentiality of Alcohol and Drug Abuse Patient Records regulations: The Federal rules restrict any use of the information to criminally investigate or prosecute any alcohol or drug abuse patient.[facility] SystemIn the event this information is protected by the Federal Confidentiality of Alcohol and Drug Abuse Patient Records regulations: The Federal rules restrict any use of the information to criminally investigate or prosecute any alcohol or drug abuse patient.[facility] SystemIn the event this information is protected by the Federal Confidentiality of Alcohol and Drug Abuse Patient Records regulations: The Federal rules restrict any use of the information to criminally investigate or prosecute any alcohol or drug abuse patient.[facility] SystemIn the event this information is protected by the Federal Confidentiality of Alcohol and Drug Abuse Patient Records regulations: The Federal rules restrict any use of the information to criminally investigate or prosecute any alcohol or drug abuse patient.[facility] SystemIn the event this information is protected by the Federal Confidentiality of Alcohol and Drug Abuse Patient Records regulations: The Federal rules restrict any use of the information to criminally investigate or prosecute any alcohol or drug abuse patient.[facility] SystemIn the event this information is protected by the Federal Confidentiality of Alcohol and Drug Abuse Patient Records regulations: The Federal rules restrict any use of the information to criminally investigate or prosecute any alcohol or drug abuse patient.[facility] SystemIn the event this information is protected by the Federal Confidentiality of Alcohol and Drug Abuse Patient Records regulations: The Federal rules restrict any use of the information to criminally investigate or prosecute any alcohol or drug abuse patient.[facility] SystemIn the event this information is protected by the Federal Confidentiality of Alcohol and Drug Abuse Patient Records regulations: The Federal rules restrict any use of the information to criminally investigate or prosecute any alcohol or drug abuse patient.[facility] SystemIn the event this information is protected by the Federal Confidentiality of Alcohol and Drug Abuse Patient Records regulations: The Federal rules restrict any use of the information to criminally investigate or prosecute any alcohol or drug abuse patient.[facility] SystemIn the event this information is protected by the Federal Confidentiality of Alcohol and Drug Abuse Patient Records regulations: The Federal rules restrict any use of the information to criminally investigate or prosecute any alcohol or drug abuse patient.[facility] SystemIn the event this information is protected by the Federal Confidentiality of Alcohol and Drug Abuse Patient Records regulations: The Federal rules restrict any use of the information to criminally investigate or prosecute any alcohol or drug abuse patient.[facility] SystemIn the event this information is protected by the Federal Confidentiality of Alcohol and Drug Abuse Patient Records regulations: The Federal rules restrict any use of the information to criminally investigate or prosecute any alcohol or drug abuse patient.[facility] SystemIn the event this information is protected by the Federal Confidentiality of Alcohol and Drug Abuse Patient Records regulations: The Federal rules restrict any use of the information to criminally investigate or prosecute any alcohol or drug abuse patient.[facility] SystemIn the event this information is protected by the Federal Confidentiality of Alcohol and Drug Abuse Patient Records regulations: The Federal rules restrict any use of the information to criminally investigate or prosecute any alcohol or drug abuse patient.[facility] Reason for Visit (unrecogniz ed section and content) Reason Comments upcoming appointment pre-rooming phone c all Reason Comments Opened In Error Reason Comments Opened In Error Reason Comments Telemedicine Specialty Diagnoses / Procedures Referred By Scottie petty Referred To Contact Diagnoses Parkinson disease (HCC) Gait instability Procedures PROVIDER ORDERED FOLLOW UP OFFICE/OUTPATIENT NEW HIGH MDM 60-74 MINUTES Elana Castañeda MD [address] [address] Referral ID Status Reason Start Date Expiration Date V isits Requested Visits Authorized [id number] Closed PCP Requested Referral 06/29/2022 09/27/2022 1 1 Reason Comments Orders Mailed orders Reason Comments Telemedicine Follow Up Specialty Diagnoses / Procedures Referred By Scottie petty Referred To Contact Diagnoses Parkinson disease (HCC) Essential tremor Procedures PROVIDER ORDERED FOLLOW UP OFFICE/OUTPATIENT NEW HIGH MDM 60-74 MINUTES Elana Castañeda MD [address] [address] Referral ID Status Reason Start Date Expiration Date Visits Requested Visits Authorized [id number] Pending Review PCP Requested Referral 02/15/2023 12/18/2023 [...] fax to Nursing Facility Reason Comments Orders Reason Comments Manager Research Development - Other Care Teams (unrecognized sec tion and content) [...] 2025 End: February 26, 2025 Abeba Peacock STATUS CONTROLLER, STATUS CONTROLLER-C Attending Provider Active Start: February 26, 2025 End: February 26, 2025 Team Status: Inactive Member Role Status Dates Dr. Felix Monetlongo MD Primary Care Provider Active Start: February [...] 2025 End: April 13, 2025 Abeba Peacock STATUS CONTROLLER, STATUS CONTROLLER-C Attending Provider Active Start: April 13, 2025 [...] Referring Provider Active Start: May 10, 2025 Sports Medicine Specialist Relationship Specialty Start Date End Date Felix Montelongo [address] [place] [address] PCP - General Unspecified 02/04/16 Anupama Feng DO Internal Medicine 12/29/12 Cali Still MD Primary Staff Physician Cardiology 02/07/19 Sports Medicine Specialist Relationship Specialty Start Date End Date Felix Montelongo MD [address] [place] [address] PCP - General Unspecified 02/04/16 Anupama Feng DO Internal Medicine 12/29/12 Cali Still MD Primary Staff Physician Cardiology 02/07/19 Sports Medicine Specialist Relationship Specialty Start Date End Date Felix Montelongo MD [address] [place] [address] PCP - General Unspecified 02/04/16 nAupama Feng, DO Internal Medicine 12/29/12 Cali Still MD Primary Staff Physician Cardiology 02/07/19 Sports Medicine Specialist Relationship Specialty Start Date End Date Felix Montelongo MD [address] [place] [address] PCP - General Unspecified 02/04/16 Anupama Feng, DO Internal Medicine 12/29/12 Cali Still MD [address] [place] [address] Primary Staff Physician Cardiology 02/07/19 Sports Medicine Specialist Relationship Specialty Start Date End Date Felix Montelongo MD [address] [place] [address] PCP - General Unspecified 02/04/16 Anupama Feng, Internal Medicine 12/29/12 Cali Still MD [address] [place] [address] [phone] Primary Staff Physician Cardiology 02/07/19 Sports Medicine Specialist Relationship Specialty Start Date End Date Felix Montelongo MD [address] [place] [address] PCP - General Unspecified 02/04/16 Anupama Feng, Internal Medicine 12/29/12 Cali Still MD [address] [place], [place] [address] Primary Staff Physician Cardiology 02/07/19 Sports Medicine Specialist Relationship Specialty Start Date End Date Felix Montelongo MD [address] [place] [address] PCP - General Unspecified 02/04/16 Anupama Feng DO Internal Medicine 12/29/12 Cali Still MD [address] [place] [address] [phone] Primary Staff Physician Cardiology 02/07/19 Sports Medicine Specialist Relationship Specialty Start Date End Date Felix Montelongo MD [address] [place] [address] [phone] PCP - General Unspecified 02/04/16 Anupama Feng DO Internal Medicine 12/29/12 Cali Still MD [address] [place] [address] Primary Staff Physician Cardiology 02/07/19 Team Status: Active Member Role Status Dates Dr. Barrett Avalos MD Family Provider Active Dr. Felix Montelongo MD Primary Care Provider Active Team Status: Inactive Member Role Status Dates Dr. Felix Montelongo MD Primary Care Provider Active RUDDY ANGLIN Attending Provider, Referring Provid er Active Sports Medicine Specialist Relationship Specialty Start Date End Date Felix Montelongo MD [address] [place] [address] [phone] PCP - General Unspecified 02/04/16 Anupama Feng DO Internal Medicine 12/29/12 Cali Still MD [address] [place] [address] Primary Staff Physician Cardiology 02/07/19 Elana Castañeda MD [address] [address] Specialty Excel Analyst Neurology 11/10/23 Sports Medicine Specialist Relationship Specialty Start Date End Date Felix Montelongo MD [address] [place] [address] PCP - General Unspecified 02/04/16 Anupama Feng DO Internal Medicine 12/29/12 Cali Still MD [address] [place] [address] Primary Staff Physician Cardiology 02/07/19 Elana Castañeda MD [address] [address] Specialty Excel Analyst Neurology 11/10/23 Sports Medicine Specialist Relationship Specialty Start Date End Date Felix Montelongo MD [address] [place] [address] PCP - General Unspecified 02/04/16 Anupama Feng DO Internal Medicine 12/29/12 Cali Still MD [address] [place] [address] Primary Staff Physician Cardiology 02/07/19 Elana Castañeda MD [address] [address] Specialty Excel Analyst Neurology 11/10/23 Sports Medicine Specialist Relationship Specialty Start Date End Date Rocío Wagner PA-C [address] [place] [address] PCP - General Family Medicine 02/01/24 Anupama Feng DO Internal Medicine 12/29/12 Cali Still MD Primary Staff Physician Cardiology 02/07/19 Elana Castañeda MD [address] [address] Specialty Excel Analyst Neurology 11/10/23 Sports Medicine Specialist Relationship Specialty Start Date End Date Vincent Espinosa MD [address] [place] [address] PCP - General Internal Medicine 02/29/24 Anupama Feng DO Internal Medicine 12/29/12 Cali Still MD Primary Staff Physician Cardiology 02/07/19 Elana Castañeda MD [address] [address] Specialty Excel Analyst Neurology 11/10/23 Sports Medicine Specialist Relationship Specialty Start Date End Date Vincent Espinosa MD [address] [place], [place] [address] PCP - General Internal Medicine 02/29/24 Anupama Feng DO Internal Medicine 12/29/12 Cali Still MD Primary Staff Physician Cardiology 02/07/19 Elana Castañeda MD [address] [place] [address] Specialty Excel Analyst Neurology 11/10/23 Rocío Wagner PA-C [address] [place] [address] Equipment Hire Manager Family Medicine 10/29/24 Sheela Cochran APRN.CNP [address] [place], [place] 470361 Equipment Hire Manager Internal Medicine 10/29/24 Janine Daugherty PA-C [address] [place], [place] [address]67[address] Equipment Hire Manager Family Medicine 10/29/24 Sports Medicine Specialist Relationship Specialty Start Date End Date Vnicent Espinosa MD [address] [place], [place] [id number] PCP - General Internal Medicine 02/29/24 Anupama Feng DO Internal Medicine 12/29/12 Cali Still MD Primary Staff Physician Cardiology 02/07/19 Elana Castañeda MD [address] [address] Specialty Excel Analyst Neurology 11/10/23 Rocío Wagner PA-C [address] [place] [address] Equipment Hire Manager Family Medicine 10/29/24 Sheela Cochran APRN.CNP [address] [place] [address] Equipment Hire Manager Internal Medicine 10/29/24 Janine Daugherty PA-C [address] [place] [address] Equipment Hire Manager [facility] 10/29/24 Team Status: Inactive Member Role Status [...] Start: October 30, 2024 Dr. Velasquez Morales DO Emergency Provider [...] Active Start: October 31, 2024 Dr. Velasquez Moarles DO Emergency Provider [...] End: November 02, 2024 Abeba Peacock NP, STATUS CONTROLLER-C Attending Provider Active Start: November 02, 2024 [...] 2024 End: December 04, 2024 Abeba Peacock STATUS CONTROLLER, STATUS CONTROLLER-C Attending Provider Active Start: December 04, 2024 [...] 2024 End: December 21, 2024 Abeba Peacock STATUS CONTROLLER, STATUS CONTROLLER-C Attending Provider Active Start: December 21, 2024 [...] 2025 End: January 04, 2025 Abeba Peacock STATUS CONTROLLER, STATUS CONTROLLER-C Attending Provider Active Start: January 04, 2025 End: January 04, 2025 Sports Medicine Specialist Relationship Specialty Start Date End Date Vincent Espinosa MD [address] [place], [place] [address] PCP - General Internal Medicine 02/29/24 Anupama Feng DO Internal Medicine 12/29/12 Cali Still MD Primary Staff Physician Cardiology 02/07/19 Elana Castañeda MD [address] [phone] Specialty Excel Analyst Neurology 11/10/23 Sheela Cochran APRN.CABLE ASSEMBLER AND SWAGER [address] [place], [place] [address] Equipment Hire Manager Internal Medicine 10/29/24 Sports Medicine Specialist Relationship Specialty Start Date End Date Vincent Espinosa MD [address] [place], [place] [address] PCP - General Internal Medicine 02/29/24 Anupama Feng DO Internal Medicine 12/29/12 Cali Still MD Primary Staff Physician Cardiology 02/07/19 Elana Castañeda MD [address] [phone] Specialty Excel Analyst Neurology 11/10/23 Sheela Cochran APRN.CABLE ASSEMBLER AND SWAGER [address] [place], [place] [address] Equipment Hire Manager Internal Medicine 10/29/24 Team Status: Active Member Role Status Dates Dr. Felix Montelongo MD Primary Care Provider Active Start: March 29, 2025 Buzz ZHANG MD Attending Provider Active Start: March 29, 2025 Sports Medicine Specialist Relationship Specialty Start Date End Date Vincent Espinosa MD [address] [place] [address] PCP - General Internal Medicine 02/29/24 Anupama Feng DO Internal Medicine 12/29/12 Cali Still MD Primary Staff Physician Cardiology 02/07/19 Elana Castañeda MD [address] [phone] Specialty Excel Analyst Neurology 11/10/23 Sheela Cochran APRN.CABLE ASSEMBLER AND SWAGER [address] [place] [address] [facility] Internal Medicine 10/29/24 Team Status: Inactive Member Role Status Dates Dr. Felix Montelongo MD Primary Care Provider Active Start: May 10, 2025 End: May 10, 2025 Dr. Dirk Camacho MD Attending Provider Active Start: May 10, 2025 End: May 10, 2025 Dr. Dirk Camacho MD Referring Provider Active Start: May 10, 2025 End: May 10, 2025 Sports Medicine Specialist Relationship Specialty Start Date End Date Vincent Espinosa MD [address] [place] [address] PCP - General Internal Medicine 02/29/24 Anupama Feng DO Internal Medicine 12/29/12 Cali Still MD Primary Staff Physician Cardiology 02/07/19 Elana Castañeda MD [address] [phone] Specialty Excel Analyst Neurology 11/10/23 Sheela Cochran APRN.CABLE ASSEMBLER AND SWAGER [address] [place] [address] Equipment Hire Manager Internal Medicine 10/29/24 Sports Medicine Specialist Relationship Specialty Start Date End Date Vincent Espinosa MD [address] [place] [address] PCP - General Internal Medicine 02/29/24 Anupama Feng DO Internal Medicine 12/29/12 Cali Still MD Primary Staff Physician Cardiology 02/07/19 Elana Castañeda MD [address] [facility] [address] [place] [address] Specialty Excel Analyst Neurology 11/10/23 SammieSheela KNITTING TEACHER.CABLE ASSEMBLER AND SWAGER [address] [place] [address] Equipment Hire Manager Internal Medicine 10/29/24 Team Status: Active Member [...] 2025 End: April 13, 2025 Abeba Peacock NP, STATUS CONTROLLER-C Attending Provider Active Start: April 13, 2025 [...] 2025 End: May 30, 2025 Abeba Peacock STATUS CONTROLLER, STATUS CONTROLLER-C Attending Provider Active Start: May 30, 2025 End: May 30, 2025 Team Status: Active Member Role/Relationship Status Dates Dr. Felix Montelongo MD Primary Care Provider Active Start: June 22, 2025 Buzz ZHANG MD Attending Provider Active Start: June 22, 2025 Sports Medicine Specialist Relationship Specialty Start Date End Date Vincent Espinosa MD [address] [place], [place] [address] PCP - General Internal Medicine 02/29/24 Anupama Feng DO Internal Medicine 12/29/12 Cali Still MD Primary Staff Physician Cardiology 02/07/19 Elana Castañeda MD [address] [phone] Specialty Excel Analyst Neurology 11/10/23 Sheela Cochran APRN.[place] [address] [place] [address] Equipment Hire Manager Internal Medicine 10/29/24 Goals (unrecognized section and content) Goals may [...] BE BASED ON THE PRIMARY CLINICAL RECORDS. [employer] [facility]. provides no warranty or guarantee of the accuracy or completeness of information in this document.
[2025-09-26 08:05] LABS: Cholesterol 153 mg/dL (<=200); Low Density Lipoprotein Calc. 77 mg/dL; Triglycerides 63 mg/dL; Very Low Density Lipoprotein 13 mg/dL (5-40); cholesterol:hdl ratio screen 2.42
== END ==
LOC: OLS.WHLTSB 05:00
PROVIDERS: PCP Family Medicine Geriatric Medicine; Visit Provider Internal Medicine
DX: E78.5 Hyperlipidemia, unspecified (principal)
CPT/HCPCS: 36415; 80061